=== PATIENT | female | born 1960 | race Caucasian/White ===

== ENCOUNTER → 2016-07-13 | Outpatient (CLI) | payer OTHER ==
[~2016-07-13] MED LIST: ACHD5005 PO; ALBU8.5H4 IH; AZIT-21 PO; BENZ200C25 PO; CIPR500T4 PO; CIPR500T78 PO; CYCL10TA9 PO; DOXY100C2 PO; INSU100V13 SQ; INSU100V5 SQ; METF-380 PO; NAPR-243 PO; OMEP20TA2 PO; PRD20T PO; PRM1O30 PR
--- NOTE | 2016-07-13 18:18 | Diagnostic Imaging Report ---
INDICATION: Bloating. 1 mCi of tech-99m sulfur colloid was tagged with eggs and orally ingested. FINDINGS: Immediate images show good uptake in the stomach. Serial images show linear fit T-1/2 to be 105 minutes. There is 50% raw emptying at 57 minutes. 80% raw emptying at 123 minutes and 96% raw isotope emptying at 180 minutes. IMPRESSION: Mild delayed gastric emptying as described. Dictated by: Dictated on workstation # [id number]
== END ==
LOC: CARD 08:36
PROVIDERS: ATTEND Family Medicine
DX: R14.0 Abdominal distension (gaseous) (principal)
CPT/HCPCS: 78264

== ENCOUNTER → 2016-09-26 | Outpatient (CLI) | payer OTHER ==
--- NOTE | 2016-09-27 06:49 | ECHOCARDIOGRAPHY REPORT ---
DATE OF SERVICE: 09/26/2016 A 2-D ECHO REPORT REFERRING PHYSICIAN: Dr. Chau. MEASUREMENT: LVID and diastolic 3.8, IVS thickness 1.1, LVPW thickness 1.0, left atrial diameter 3.2. Ejection fraction 50%. FINDINGS: 1. Technical quality is good. 2. The left ventricle is normal in size with normal contractility, systolic function appeared to be normal, estimated ejection fraction 50%. 3. The left atrium is normal in size. No clot or thrombus was seen within the left atrium. 4. The right atrium and right ventricle are normal in size. No clot or thrombus was seen within the right side. 5. Mitral valve is normal in morphology with mild mitral regurgitation noted by color Doppler flow. No mitral valve prolapse. No mitral valve stenosis. 6. Aortic valve is trileaflet with normal opening and closing pattern. No significant aortic stenosis or regurgitation was seen. 7. Tricuspid valve is normal in morphology with mild tricuspid regurgitation noted by color Doppler flow. Doppler across the tricuspid valve estimated pulmonary artery pressure of 9+ right atrial pressure. 8. Pulmonic valve is functioning normally. 9. No pericardial effusion. CONCLUSION: 1. Normal left ventricular size and systolic function, estimated ejection fraction 50%. 2. Mild mitral and tricuspid regurgitation. 3. Estimated pulmonary artery pressure of 15 mmHg. Job ID: [id number] DocumentID: [id number] Dictated Date: 09/26/2016 15:47:51 Golf Course Mechanic Date: 09/27/2016 06:24:37 Dictated By: ARIANA JIMENEZ MD
== END ==
LOC: CARD 10:05
PROVIDERS: ATTEND Internal Medicine Cardiovascular Disease
DX: R07.89 Other chest pain (principal)
CPT/HCPCS: 93306

== ENCOUNTER → 2016-10-01 | Outpatient (CLI) | payer OTHER ==
[~2016-10-01] MED LIST changes: +CATHETER FLUSH 10 ML SYR IV PRN; +REGADENOSON 0.4 MG/5 ML SYR (LEXISCAN) IV ONE
[2016-10-01 09:35] VITALS: BP 135/64
--- NOTE | 2016-10-02 07:42 | STRESS TEST ---
DATE OF SERVICE: 10/01/2016 LEXISCAN MYOVIEW STRESS TEST REPORT REFERRING PHYSICIAN: Dr. Cassandra Chau INDICATION: Coronary artery disease, chest pain. Baseline heart rate is 59. Baseline blood pressure 135/64. Baseline EKG is sinus rhythm with no ischemic changes. SUMMARY: The patient was injected with 10.91 mCi of technetium-99 Myoview, and the resting images were obtained. Then, the patient received 0.4 mg of Lexiscan followed by 32.9 mCi of technetium 99 Myoview. Throughout the test, there were no EKG changes. The resting and stress images were reviewed and compared in the short axis, horizontal long axis and vertical long axis views. Review of the images showed no significant ischemia or infarction on SPECT images. SSS is 1, SDS 1, TID value 1.01. On the gated images, the left ventricle appeared to be normal size with normal contractility. Calculated ejection fraction 59%. CONCLUSION: 1. The patient tolerated Lexiscan well. 2. No ischemia or infarction on SPECT images. 3. Normal left ventricular size with normal contractility, calculated ejection fraction 59%. Job ID: [id number] DocumentID: [id number] Dictated Date: 10/01/2016 12:03:42 Sourcer Date: 10/02/2016 00:12:00 Dictated By: ARIANA JIMENEZ MD
== END ==
LOC: CARD 07:24
PROVIDERS: ATTEND Internal Medicine Cardiovascular Disease
DX: R07.89 Other chest pain (principal)
CPT/HCPCS: 78452; 93017

== ENCOUNTER → 2016-10-08 | Emergency (ER) | payer OTHER ==
[~2016-10-08] MED LIST changes: -CATHETER FLUSH 10 ML SYR IV PRN; -REGADENOSON 0.4 MG/5 ML SYR (LEXISCAN) IV ONE
== END | disposition left against medical advice (07) ==
LOC: EDUNIT# 13:00 → ER 13:02
DX: R00.0 Tachycardia, unspecified (principal); Z53.21 Procedure and treatment not carried out due to patient leaving prior to being seen by health care provider

== ENCOUNTER 2017-01-19 15:15 | Emergency (ER) | payer SELFPAY ==
[~2017-01-19] VITALS: Ht 162.6 cm; Wt 90.7 kg
--- OUTSIDE RECORDS SUMMARY | 2017-01-19 15:22 | XMS REPORT ---
Author Author TAWANA QUINTEN Organization [facility] Address [address] [place] [address] Care Team Providers Care Die Maker Electronic Name Role Phone RUBINA GILLIAMHANY Unavailable PROBLEMS Type Condition ICD9-CM Code CNO26-VW Code Onset Dates Condition Status SNOMED Code Problem Obstructive sleep apnea G47.33 Active 53364649 Problem Falls frequently R29.6 Active 150653371 Problem Right carpal tunnel syndrome G56.01 Active 53503434 Problem Tarsal tunnel syndrome of left side G57.52 Active 04681204 Problem Posterior subcapsular age-related cataract of both eyes H25.043 Active 8497917 Problem Type 1 diabetes mellitus with diabetic neuropathy E10.40 Active 324093571 Problem Other chronic pain G89.29 Active 16106106 Problem Gastroesophageal reflux disease with esophagitis K21.0 Active 120157724 Problem Obesity E66.9 Active 307088374 Problem Pain in left foot M79.672 Active 7618029 Problem Presbyopia OU H52.4 Active 52604296 Problem Delayed gastric emptying K30 Active 385386501 Problem Nuclear cataract of both eyes H25.13 Active 69588754 Problem Hypermetropia, bilateral H52.03 Active 04364934 Problem Shortness of breath R06.02 Active 156259642 Problem Lung nodule R91.1 Active 186223533 Problem Type 2 diabetes mellitus with diabetic polyneuropathy E11.42 Active 30769893 Problem Primary narcolepsy with cataplexy G47.411 Active 693757021 Problem Type 2 diabetes mellitus with hyperglycemia E11.65 Active 61784091 Problem Mixed hyperlipidemia E78.2 Active 980178919 ALLERGIES Unknown Allergies SOCIAL HISTORY No smoking Hx information available PLAN OF CARE VITAL SIGNS MEDICATIONS Medication Instructions Dosage Frequency Start Date End Date Duration Status Test strips as directed Apr, Active Pen [place] 32G X 4 MM as directed Dec, Active RESULTS No Results PROCEDURES No Known procedures IMMUNIZATIONS No Known Immunizations
[2017-01-19] MEDS ORDERED: INSU100I29 PO (16:26)
[2017-01-19] MEDS ORDERED: INSU100I14 SQ (16:26)
[2017-01-19] MEDS ORDERED: PRAV40TA2 PO (16:27)
[2017-01-19] MEDS ORDERED: GABA-488 PO (16:27)
--- NOTE | 2017-01-19 17:29 | ED Fall/Injury ---
General Chief Complaint: Hip/Pelvic Problems Stated Complaint: FALL, HIP PAIN Nursing Triage Note: PT REPORTS SHE SAT ON THE TOILET AT [employer] TODAY AND THE TOILET SEAT WAS BROKE AND SLIPPED OUT FROM UNDER HER, AND SHE FELL ON THE FLOOR. PT C/O RIGHT SIDED HIP, BUTTOCK, AND LOWER BACK PAIN. Source: patient Exam Limitations: no limitations History of Present Illness Time seen by provider: 17:29 Initial Comments 56-year-old female patient presents to the emergency department with complaints of slipping off of the toilet at [employer] onto the floor at 1130 this AM. Reports the seat was broken. Now complains of right hip pain, right buttock pain, low back pain, and right mid thigh pain. Denies hitting her head, loss of consciousness, confusion, bowel incontinence, or bladder incontinence. Patient is moving about the bed without difficulty. Location Injury Occurred: Social Rec[employer]iting Occurred: this morning (1100 this AM) Injuries/Pain Location: back, pelvis, lower extremity Context: other (slipped off of the toilet) Loss of Consciousness: no loss of consciousness Modifying Factors: Worse With Movement Allergies and Home Medications Allergies Coded Allergies: Penicillins (Verified Allergy, Severe, SWELLING IN THROAT, 05/10/13) Home Medications Albuterol Sulfate 8.5 Gm Hfa.aer.ad, 8.5 GM IH Q4H PRN for AIR HUNGER, (Reported ) Cyclobenzaprine HCl 10 Mg Tablet, 10 MG PO Q8H PRN for SPASMS, #10 Ref 0 Prescribed by: LINDSAY CEJA on 01/19/171900 Gabapentin 300 Mg Capsule, 600 MG PO TID, (Reported) Insulin Aspart 300 Units/3 Ml Solution, 25 UNITS SQ TIDWM, (Reported) Insulin Detemir 100 Unit/1 Ml Insuln.pen, 45 UNITS PO BID, (Reported) Pravastatin Sodium 40 Mg Tablet, 40 MG PO HS, (Reported) Constitutional: No dizziness, No weakness Eyes: No Symptoms Reported Ears, Nose, Mouth, Throat: no symptoms reported Respiratory: No cough, No short of breath Cardiovascular: No chest pain, No syncope Gastrointestinal: no symptoms reported Genitourinary: no symptoms reported Musculoskeletal: see HPI, back pain, joint pain, No joint swelling, No neck pain Skin: No change in color, No lumps Psychiatric/Neurological: Denies Headache, Denies Numbness, Denies Paresthesia , Pre-Existing Deficit (h/o neuropathy), Denies Seizure, Denies Tingling, Denies Weakness All Other Systems Reviewed Negative Unless Noted: Yes (Negative excepted noted.) Past Ctmoqhb-Snyglb-Rgwyua Hx Patient Social History Alcohol Use: Denies Use Recreational Drug Use: No Smoking Status: Never a Smoker 2nd Hand Smoke Exposure: Yes Recent Foreign Travel: No Contact w/Someone Who Travel: No Recent Infectious Disease Expo: No Recent Hopitalizations: No Immunizations Up To Date Tetanus Booster (TDap): Unknown PED Vaccines UTD: No Date of Pneumonia Vaccine: Apr 13, 2013 Date of Influenza Vaccine: Apr 13, 2013 Seasonal Allergies Seasonal Allergies: No Surgeries History of Surgeries: Yes Surgeries: Hysterectomy Respiratory History of Respiratory Disorde: Yes Respiratory Disorders: Asthma, Sleep Apnea Currently Using CPAP: Yes Cardiovascular History of Cardiac Disorders: Yes Cardiac Disorders: High Cholesterol Neurological History of Neurological Disord: Yes Neurological Disorders: Headaches /Migraines, Neuropathy Reproductive System : No Hx Reproductive Disorders: No 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 Genitourinary History of Genitourinary Disor: Yes (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) Genitourinary Disorders: Renal Failure Gastrointestinal History of Gastrointestinal Di: Yes Gastrointestinal Disorders: Gastroesophageal Reflux Musculoskeletal History of Musculoskeletal Dis: Yes Musculoskeletal Disorders: Arthritis Endocrine History of Endocrine Disorders: Yes Endocrine Disorders: Diabetes, Insulin dep Are Your Blood Sugars Over 250: Yes HEENT History of HEENT Disorders: No Loss of Vision: Denies Hearing Impairment: Denies Cancer History of Cancer: No Psychosocial History of Psychiatric Problem: Yes (NARCOLEPSY) Integumentary History of Skin or Integumenta: No Blood Transfusions History of Blood Disorders: No Adverse Reaction to a Blood Tr: No Reviewed Nursing Assessment Reviewed/Agree w Nursing PMH: Yes Family Medical History Significant Family History: Heart Disease, Seizures Family Medial History: Alcoholism 03 FATHER, Onset:Unknown 09 SISTER, Onset:Unknown Bone cancer 09 BROTHER Cancer 09 BROTHER, Onset:30's - 40 Cardiovascular disease 03 FATHER 03 MOTHER Chest pain 03 FATHER, Onset:60 years & older 03 MOTHER, Onset:60 years & older Diabetes mellitus 09 SISTER Family history: Cardiovascular disease 03 FATHER, Onset:Unknown 03 MOTHER, Onset:Unknown 09 BROTHER, Onset:Unknown Family history: Diabetes mellitus 03 FATHER 03 MOTHER, Onset:Unknown 09 BROTHER, Onset:Unknown Heart disease 03 MOTHER, Onset:Unknown 09 BROTHER, Onset:Unknown Seizure disorder 09 BROTHER, Onset:Unknown 09 SISTER, Onset:Unknown Stroke 09 SISTER No Family History of: Abdominal aortic aneurysm [place]'s disease Aphasia Cancer of colon Cataract Congenital heart disease Congestive heart failure Cystic fibrosis Dementia Family history: Allergy Family history: Alzheimer's disease Family history: Arthritis Family history: Asthma Family history: Breast disease Family history: Coronary thrombosis Family history: Gastrointestinal disease Family history: Glaucoma Family history: Hypertension Family history: Osteoporosis Family history: Thyroid disorder Headache Hearing loss Hereditary disease History of - anemia History of - disorder History of - respiratory disease History of drug abuse Human immunodeficiency virus (HIV) seropositivity Hypercholesterolemia Infertile Kidney disease Malignant neoplasm of lung Myocardial infarction Parkinson's disease Prostate cancer Psychotic disorder Tuberculosis Visual impairment Physical Exam Vital Signs Vital Sign - Last 12Hours 01/19/17 16:09 Temp 97.7 Pulse 69 Resp 18 B/P (MAP) 144/61 O2 Delivery Room Air Capillary Refill : Less Than 3 Seconds General Appearance: WD/WN, no apparent distress, other (patient is moving about the bed without difficulty. Rolls from side to side with ease and without grimacing.) HEENT: PERRL/EOMI, pharynx normal, other (normocephalic, atraumatic.) Neck: non-tender, full range of motion, supple, normal inspection Cardiovascular: normal peripheral pulses, regular rate, rhythm, no edema, no murmur Respiratory: lungs clear, normal breath sounds, no respiratory distress, no accessory muscle use Peripheral Pulses: 2+ Dorsalis Pedis (R), 2+ Left Dors-Pedis (L), 2+ Radial Pulses (R), 2+ Radial Pulses (L) Gastrointestinal: non tender, soft, No distended Back: normal inspection, No decreased range of motion, vertebral tenderness ( mild lumbar tenderness.), No other (no evidence of step-off, deformity, or ecchymosis.) Extremities: normal range of motion, normal inspection, no pedal edema, no calf tenderness, normal capillary refill, pelvis stable, other (rt anterior/ lateral/posterior hip TTP without deformity, swelling, or ecchymosis.) Neurologic/Psychiatric: no motor/sensory deficits, alert, normal mood/affect, oriented x 3 Skin: normal color, warm/dry, No ecchymosis (no evidence of trauma.) [place] Coma Score Best Eye Response: (4) Open Spontaneously Best Verbal Response: (5) Oriented Best Motor Response: (6) Obeys Commands [place] Total: 15 Progress/Results/Core Measures Results/Orders My Orders Orders - LINDSAY CEJA Ct Lumbar Spine Wo (01/19/17 17:37) Femur, Right, 2 Views (01/19/17 17:37) Pelvis (01/19/17 17:37) Hydrocodone/Apap 10/325 Tablet (Lortab 1 (01/19/17 18:06) Vital Signs/I&O Vital Sign - Last 12Hours 01/19/17 16:09 Temp 97.7 Pulse 69 Resp 18 B/P (MAP) 144/61 O2 Delivery Room Air Blood Pressure Mean: 88 Diagnostic Imaging Diagonstic Imaging: CT Plain Films/CT/US/NM/MRI: other (lumbar spine) Comments FINDINGS: Alignment of the lumbar column is normal. There is no subluxation or fracture. Vertebral body heights are normal. There is minimal to mild degenerative disc disease and facet joint arthropathy. There is a broad-based circumferential disc bulge at the L3-L4 level. Consider MRI on nonemergent basis for further evaluation if symptoms continue. IMPRESSION: 1. No traumatic malalignment or fracture. 2. Degenerative changes throughout disc spaces and facet joints. 3. Likely chronic L3-L4 circumferential disc bulge. This may be further evaluated with MRI if needed. Dictated by: Dictated on workstation # [id number] Reviewed: Reviewed by Me (radiology report reviewed by me) Diagonstic Imaging: Xray Plain Films/CT/US/NM/MRI: pelvis Comments FINDINGS: No fracture or dislocation. Articular surfaces are normal. There is no osseous lesion. IMPRESSION: No fracture or dislocation. Dictated by: Dictated on workstation # [id number] Reviewed: Reviewed by Me (radiology report reviewed by me) Diagonstic Imaging: Xray Plain Films/CT/US/NM/MRI: femur Comments FINDINGS: 4 views of the right femur demonstrate no fracture or dislocation. Articular surfaces are age-appropriate. There is no osseous lesion. IMPRESSION: Negative right femur. Dictated by: Dictated on workstation # [id number] Reviewed: Reviewed by Me (radiology report reviewed by me) Departure Impression Impression: Primary Impression: Contusion of hip and thigh Qualified Codes: S70.01XA - Contusion of right hip, initial encounter; S70.11XA - Contusion of right thigh, initial encounter Additional Impression: Lumbar spine strain Qualified Codes: S39.012A - Strain of muscle, fascia and tendon of lower back , initial encounter Disposition: 01 HOME, SELF-CARE Condition: Improved Departure-Patient Inst. Decision time for Depature: 18:57 Referrals: QUINTEN GILLIAM MD (PCP/Family) Primary Care Physician Patient Instructions: Contusion (DC), Lumbar Muscle Strain (DC) Add. Discharge Instructions: All discharge instructions reviewed with patient and/or family. Voiced understanding. Medications as instructed. Tylenol extra strength over-the- counter as directed for pain. Ibuprofen 800 mg by mouth every 8 hours as needed for pain. Ice pack for 20 minute intervals as needed for pain for 2-3 days, then heating pad or pack as needed. No heavy lifting for 2-3 days, then increase activity slowly as tolerated. Follow-up with your family practitioner if no improvement in symptoms in 7-10 days. Return to the emergency department for worsened pain, numbness, weakness, bowel incontinence, bladder incontinence , or any other concerns. Scripts Cyclobenzaprine HCl (Cyclobenzaprine HCl) 10 Mg Tablet 10 MG PO Q8H Y for SPASMS, #10 TAB 0 Refills Prov: LINDSAY CEJA 01/19/17 LINDSAY CEJA Jan 19, 2017 17:29
[2017-01-19] MEDS ORDERED: HYDROcodone/APAP 10 MG/325 MG (LORTAB) TAB PO STA (18:06)
--- NOTE | 2017-01-19 18:18 | Diagnostic Imaging Report ---
PROCEDURE: CT lumbar spine without contrast. TECHNIQUE: Multiple contiguous axial images were obtained through the lumbar spine without the use of intravenous contrast. Sagittal and coronal reformations were then performed. INDICATION: Fall, back pain. COMPARISON: None. FINDINGS: Alignment of the lumbar column is normal. There is no subluxation or fracture. Vertebral body heights are normal. There is minimal to mild degenerative disc disease and facet joint arthropathy. There is a broad-based circumferential disc bulge at the L3-L4 level. Consider MRI on nonemergent basis for further evaluation if symptoms continue. IMPRESSION: 1. No traumatic malalignment or fracture. 2. Degenerative changes throughout disc spaces and facet joints. 3. Likely chronic L3-L4 circumferential disc bulge. This may be further evaluated with MRI if needed. Dictated by: Dictated on workstation # [id number]
--- NOTE | 2017-01-19 18:37 | Diagnostic Imaging Report ---
INDICATION: Fall, right leg pain. COMPARISON: None. FINDINGS: 4 views of the right femur demonstrate no fracture or dislocation. Articular surfaces are age-appropriate. There is no osseous lesion. IMPRESSION: Negative right femur. Dictated by: Dictated on workstation # [id number]
--- NOTE | 2017-01-19 18:41 | Diagnostic Imaging Report ---
INDICATION: Fall, pelvic pain. COMPARISON: None. EXAMINATION: Single view of the the pelvis was obtained. FINDINGS: No fracture or dislocation. Articular surfaces are normal. There is no osseous lesion. IMPRESSION: No fracture or dislocation. Dictated by: Dictated on workstation # [id number]
[2017-01-19] MEDS ORDERED: CYCL10TA9 PO (19:01)
[2017-01-19 19:05] VITALS: BP 148/72
== END 2017-01-19 19:05 | disposition home or self-care (01) ==
LOC: EDUNIT# 15:15 → ER 15:18
DX: S39.012A Strain of muscle, fascia and tendon of lower back, initial encounter (principal); S70.01XA Contusion of right hip, initial encounter; E11.40 Type 2 diabetes mellitus with diabetic neuropathy, unspecified; K21.9 Gastro-esophageal reflux disease without esophagitis; G43.909 Migraine, unspecified, not intractable, without status migrainosus; E78.00 Pure hypercholesterolemia, unspecified; J45.909 Unspecified asthma, uncomplicated; G47.30 Sleep apnea, unspecified; Z80.8 Family history of malignant neoplasm of other organs or systems; Z90.710 Acquired absence of both cervix and uterus; Z79.4 Long term (current) use of insulin; W18.11XA Fall from or off toilet without subsequent striking against object, initial encounter; Y92.511 Restaurant or cafe as the place of occurrence of the external cause
CPT/HCPCS: 72131; 72170; 73552; 99283

== ENCOUNTER → 2017-07-23 | Outpatient (CLI) | payer MEDICAID ==
[~2017-07-23] MED LIST changes: +FAMO20TA5 PO; +GABA-488 PO; +INSU100I14 SQ; +INSU100I29 PO; +PRAV40TA2 PO; +RT-ALBUINH IH; +SUCR1TAB36 PO
== END ==
LOC: PREOP 05:42
PROVIDERS: ATTEND Surgery
DX: Z01.818 Encounter for other preprocedural examination (principal); Z12.11 Encounter for screening for malignant neoplasm of colon

== ENCOUNTER 2017-08-28 08:28 | Outpatient (RCR) | payer MEDICAID | END 2017-11-26 | disposition home or self-care (01) | LOC: CARD 08:28 | PROVIDERS: ATTEND Family Medicine | DX: R00.2 Palpitations (principal) | CPT/HCPCS: 93225; 93226 ==

== ENCOUNTER 2017-12-01 18:59 | Emergency (ER) | payer MEDICAID ==
[~2017-12-01] VITALS: Ht 162.6 cm; Wt 88.5 kg
--- OUTSIDE RECORDS SUMMARY | 2017-12-01 19:06 | XMS REPORT ---
Author Author TAWANA QUINTEN [facility] Address [address] [place] [address] Care Team Providers Care Print Manager Name Role Phone TAWANA QUINTEN Unavailable PROBLEMS Type Condition ICD9-CM Code HVN35-JU Code Onset Dates Condition Status SNOMED Code Problem Right carpal tunnel syndrome G56.01 Active 23996299 Problem Gastroesophageal reflux disease with esophagitis K21.0 Active 835719573 Problem Falls frequently R29.6 Active 228332297 Problem Porokeratosis Q82.8 Active 652275543 Problem Posterior subcapsular age-related cataract of both eyes H25.043 Active 6328450 Problem Non-alcoholic fatty liver disease K76.0 Active 333649319 Problem Delayed gastric emptying K30 Active 120165188 Problem Pain in left foot M79.672 Active 9905533 Problem Other chronic pain G89.29 Active 91502832 Problem Tarsal tunnel syndrome of left side G57.52 Active 92403387 Problem Obesity E66.9 Active 165006370 Problem Hypermetropia, bilateral H52.03 Active 23369423 Problem Type 2 diabetes mellitus with hyperglycemia E11.65 Active 32593715 Problem Nuclear cataract of both eyes H25.13 Active 04764739 Problem Presbyopia OU H52.4 Active 65064524 Problem Obstructive sleep apnea G47.33 Active 32113421 Problem Shortness of breath R06.02 Active 837028466 Problem Type 2 diabetes mellitus with diabetic polyneuropathy E11.42 Active 27859071 Problem Lung nodule R91.1 Active 175979451 Problem Mixed hyperlipidemia E78.2 Active 122070715 Problem Primary narcolepsy with cataplexy G47.411 Active 665601111 ALLERGIES No Information ENCOUNTERS Encounter Location Date Diagnosis [facility] [address] [facility] [id number] [address] Nov, [facility] [id number] [place] [address] 15922- 3690 September, [facility] [id number] [place] [address] 69569- 0021 September, [facility] [id number] [place] [address] 49709- 3080 September, Type 2 diabetes mellitus with hyperglycemia E11.65 [facility] [address] 59640- 5038 September, Type 2 diabetes mellitus with hyperglycemia E11.65 [facility] [id number] [place] [address] 63911- 5775 September, Porokeratosis Q82.8 and Type 2 diabetes mellitus with diabetic polyneuropathy E11.42 [facility] [id number] [place] [address] 69705 -8567 Aug, Seasonal allergic rhinitis, unspecified trigger J30.2 [place] [address] 23800- 4887 Aug, [facility] [id number] [place] [address] 77957- 7083 Aug, [facility] [id number] [place] [address] [id number] Aug, Dental examination V72.2 and Dental examination Z01.20 [place] [id number] [place] [address] 24859- 7632 Aug, Dental examination Z01.20 and Dental caries K02.9 [facility] [id number] [place] [address] 88500- 9432 Aug, Obstructive sleep apnea G47.33 ; Obesity E66.9 ; Type 2 diabetes mellitus with hyperglycemia E11.65 ; Palpitations R00.2 and Corns and callosities L84 [facility] [id number] [place] [address] 45470- 2696 Jul, [facility] [address] 72040- 3363 Jul, [place] [id number] [place] [address] 76560- 9045 Jun, Type 2 diabetes mellitus with hyperglycemia E11.65 ; Colon cancer screening Z12.11 ; Mixed hyperlipidemia E78.2 ; Non-alcoholic fatty liver disease K76.0 ; Gastroesophageal reflux disease with esophagitis K21.0 and Pain of upper abdomen R10.10 [place] [id number] [place] [address] 38665- 1612 09 Jun, 2017 Falls frequently R29.6 [facility] [id number] [place] [address] 23215 -4249 May, Infection of nose J34.89 [place] [id number] [place] [address] 74771- 2137 May, Bilateral low back pain without sciatica M54.5 [place] [id number] [place] [address] 29110- 1258 May, Type 2 diabetes mellitus with diabetic polyneuropathy E11.42 ; Obstructive sleep apnea G47.33 and Type 2 diabetes mellitus with hyperglycemia E11.65 [place] [id number] [place] [address] 06058- 0023 Apr, Bilateral low back pain without sciatica M54.5 [place] [id number] [place] [address] 71204- 7872 Apr, Mixed hyperlipidemia E78.2 and Type 2 diabetes mellitus with hyperglycemia E11.65 [place] [id number] [place] [address] 55611- 6424 Apr, Type 2 diabetes mellitus with diabetic polyneuropathy E11.42 [place] [id number] [place] [address] 39683- 6918 Apr, [place] [id number] [place] [address] 92737- 3164 Apr, Skin lesion of left arm L98.9 and Skin lesion of left leg L98.9 [facility] [id number] [place] [address] 66864- 7612 Mar, Bilateral low back pain without sciatica M54.5 [facility] [id number] [place] [address] 72626- 6155 Mar, Plantar fasciitis of left foot M72.2 ; Bursitis of left foot M71.572 and Type 2 diabetes mellitus with diabetic polyneuropathy E11.42 [place] [address] 81355- 9332 Feb, Non-alcoholic fatty liver disease K76.0 ; Keratoacanthoma L85.8 ; Seborrheic keratosis L82.1 ; Type 2 diabetes mellitus with hyperglycemia E11.65 and Nuclear cataract of both eyes H25.13 [facility] [address] [id number] Feb, [place] [address] 75777- 7138 Feb, [facility] [address] 01591- 7302 Feb, [place] [address] 85079- 3395 Feb, Type 2 diabetes mellitus with hyperglycemia E11.65 ; Back muscle spasm M62.830 and Encounter for immunization Z23 [facility] [address] 67078- 1015 Jan, Plantar fasciitis of left foot M72.2 [facility] [id number] [place] [address] 09280- 1263 Dec, [facility] [address] 85607- 0265 Dec, Plantar fasciitis of left foot M72.2 and Tarsal tunnel syndrome of left side G57.52 [facility] [address] 32689- 4722 Dec, [facility] [id number] [place] [address] 40175 -2153 Nov, Mary Jane rash of groin B37.89 and Rash and nonspecific skin eruption R21 [facility] [id number] [place] [address] 71052- 4853 Nov, [facility] [id number] [place] [address] 19609- 4442 Oct, Type 2 diabetes mellitus with hyperglycemia E11.65 and Mixed hyperlipidemia E78.2 [place] [id number] [place] [address] 33152- 9907 Oct, [facility] [address] 12477- 6181 Oct, Chest pain, unspecified R07.9 ; Palpitations R00.2 ; Syncope R55 and Mixed hyperlipidemia E78.2 [place] [id number] [place] [address] 56708- 6310 Oct, Plantar fasciitis, bilateral M72.2 and Type 1 diabetes mellitus with diabetic neuropathy E10.40 [place] [address] 05587- 5281 Oct, [place] [id number] [place] [address] 33509- 8656 September, Type 2 diabetes mellitus with hyperglycemia E11.65 [place] [id number] [place] [address] 15217- 3205 September, Type 2 diabetes mellitus with hyperglycemia E11.65 ; Type 2 diabetes mellitus with diabetic polyneuropathy E11.42 ; Gastroesophageal reflux disease with esophagitis K21.0 and Headache, unspecified headache type R51 [facility] [id number] [place] [address] 33526- 9435 September, [facility] [id number] [place] [address] 30564- 1117 September, [facility] [address] [place] [address]- 9336 September, [facility] [id number] [place] [address] 84744- 9454 September, Other chest pain R07.89 ; Heart palpitations R00.2 ; Mixed hyperlipidemia E78.2 and Obesity E66.9 [facility] [id number] [place] [address] 63480- 3995 Aug, [facility] [id number] [place] [address] 80376- 6154 Aug, Type 2 diabetes mellitus with diabetic polyneuropathy E11.42 and Type 2 diabetes mellitus with hyperglycemia E11.65 [facility] [id number] [place] [address] 48992- 7562 Aug, [facility] [id number] [place] [address] 45485- 2148 Aug, [facility] [id number] [place] [address] 21895- 1559 Aug, [facility] [id number] [place] [address] 57577- 5915 Aug, Type 2 diabetes mellitus with hyperglycemia E11.65 [facility] [id number] [place] [address] 85837- 5592 Aug, [facility] [id number] [place] [address] 22961- 0253 Jul, Type 2 diabetes mellitus with diabetic polyneuropathy E11.42 [facility] [address] [place] [address] 79105- 8223 Jul, Type 2 diabetes mellitus with hyperglycemia E11.65 [facility] [id number] [place] [address] 78672- 2148 Jul, [facility] [id number] [place] [address] 79681- 3913 Jul, [facility] [id number] [place] [address] 73705- 8432 Jul, [place] [id number] [place] [address] 70168- 2673 Jul, Type 2 diabetes mellitus with diabetic polyneuropathy E11.42 and Type 2 diabetes mellitus with hyperglycemia E11.65 [place] [id number] [place] [address] 38368- 7054 Jun, Obstructive sleep apnea G47.33 [place] [address] 85827- 8617 Jun, Type 2 diabetes mellitus with diabetic polyneuropathy E11.42 ; Primary narcolepsy with cataplexy G47.411 ; Abdominal bloating R14.0 ; Other chest pain R07.89 and Vision problems H54.7 [place] [id number] [place] [address] 06555- 2802 Jun, [place] [address] 65958- 3413 May, [place] [id number] [place] [address] 32236- 1190 Apr, [place] [address] 99598- 6298 Apr, Plantar fasciitis of left foot M72.2 [place] [id number] [place] [address] 34995- 0678 Mar, [place] [address] 40070- 2788 Mar, Plantar fasciitis of left foot M72.2 and Type 2 diabetes mellitus with diabetic polyneuropathy E11.42 [place] [address] 91670- 2589 14 Feb, 2016 Type 2 diabetes mellitus with hyperglycemia E11.65 ; Mixed hyperlipidemia E78.2 and Encounter for immunization Z23 [place] [address] 73986- 3275 Feb, [facility] [address] [address]- 1615 Feb, [facility] [id number] [place] [address] 58444- 2072 Feb, Type 2 diabetes mellitus with hyperglycemia E11.65 [facility] [id number] [place] [address] 03271- 4618 Feb, Type 2 diabetes mellitus with hyperglycemia E11.65 [facility] [id number] [place] [address] 06222- 6346 Jan, [facility] [id number] [place] [address] 61833- 6267 Dec, Pain in left foot M79.672 ; Other chronic pain G89.29 ; Type 2 diabetes mellitus with hyperglycemia E11.65 ; Obstructive sleep apnea G47.33 ; Falls frequently R29.6 ; Mixed hyperlipidemia E78.2 and Gastroesophageal reflux disease with esophagitis K21.0 [facility] [id number] [place] [address] 86346- 6638 Nov, [facility] [id number] [place] [address] 67104- 9828 Oct, Type 2 diabetes mellitus with diabetic polyneuropathy E11.42 [facility] [address] [place] [address] 61085- 2869 Oct, [facility] [id number] [place] [address] 01039- 2591 Oct, [facility] [address] [address]- 3603 September, [facility] [id number] [place] [address] 69707- 5429 September, [facility] [id number] [place] [address] 67621- 7653 September, [facility] [id number] [place] [address] 30801- 7291 September, [facility] [address] [address]- 6803 September, [facility] [id number] [place] [address] 83140- 9714 Aug, Type 2 diabetes mellitus with hyperglycemia E11.65 ; Mixed hyperlipidemia E78.2 and Right carpal tunnel syndrome G56.01 [facility] [id number] [place] [address] 17204- 2850 Aug, [facility] [address] [address]- 5631 Jul, [facility] [id number] [place] [address] 54901- 5428 Jun, [facility] [id number] [place] [address] 20819- 7010 Jun, [facility] [id number] [place] [address] 95166- 8570 May, [facility] [address] [address]- 0949 May, [facility] [id number] [place] [address] 79850- 4594 May, Type 2 diabetes mellitus with hyperglycemia E11.65 and Falls E888.9 [facility] [address] [address]- 2495 Apr, Type 2 diabetes mellitus with hyperglycemia E11.65 [facility] [address] [address]- 9505 Apr, [facility] [address] [address]- 2376 Apr, Type 2 diabetes mellitus with hyperglycemia E11.65 [facility] [address] [address]- 9130 Apr, [facility] [id number] [place] [address] 68912- 1317 Mar, Type 2 diabetes mellitus with diabetic polyneuropathy E11.42 ; Bilateral low back pain without sciatica M54.5 and Dry nose J34.89 [facility] [id number] [place] [address] 92108- 8235 Mar, Palpitations R00.2 ; Syncope R55 ; DM (diabetes mellitus) E11.9 and Obesity E66.9 [facility] [address] 79342- 0406 Mar, [facility] [address] 02213- 1039 Mar, [facility] [address] 29900- 6663 Mar, [facility] [address] 13569- 2794 Feb, [facility] [address] 72799- 2587 Jan, [facility] [id number] [place] [address] 51810- 5347 Jan, [facility] [id number] [place] [address] 64485- 5530 Jan, Falls E888.9 and Sinusitis 473.9 [facility] [id number] [place] [address] 88022- 0243 Dec, [facility] [id number] [place] [address] 30045- 4252 Dec, [facility] [address] 43167- 1986 Dec, [facility] [id number] [place] [address] 94562- 6373 Dec, [facility] [address] 39386- 8276 Dec, Diabetes mellitus without mention of complication, type II or unspecified type, not stated as uncontrolled 250.00 and Shortness of breath 786.05 [facility] [id number] [place] [address] 00629- 8671 Dec, [facility] [id number] [place] [address] 20352- 6597 Nov, [facility] [id number] [place] [address] 34196- 9060 Nov, [facility] [id number] [place] [address] 04362- 3449 Oct, Restrictive lung disease 518.89 [place] [id number] [place] [address] 61475- 8288 Oct, [place] [id number] [place] [address] 05425- 4794 Oct, Shortness of breath 786.05 [facility] [id number] [place] [address] 37985- 4840 September, Other nonspecific abnormal finding of lung field 793.19 ; Diabetes mellitus without mention of complication, type II or unspecified type, not stated as uncontrolled 250.00 ; Hyperlipidemia LDL goal < 100 272.4 ; Narcolepsy, with cataplexy 347.01 ; Shortness of breath 786.05 and Chest pain 786.50 [place] [id number] [place] [address] 04615- 9211 Aug, [facility] [id number] [place] [address] 72485- 4780 Aug, [facility] [id number] [place] [address] 085273- 7949 Jun, [facility] [id number] [place] [address] 977617- 0884 Jun, [facility] [id number] [place] [address] 943538- 1450 Jun, [facility] [place] [facility] [address] [id number] [place] [address]- 7894 Jun, 2014 [facility] [place] [facility] [address] [id number] [place] [address]- 8277 Jun, 2014 [facility] [place] [facility] [address] [id number] [place] [address]- 3629 Jun, 2014 [facility] [place] [facility] [address] [id number] [place] [address]- 5201 Jun, 2014 [facility] [place] [facility] [address] [id number] [place] [address] Jun, [facility] [place] [facility] [address] [id number] [place] [address] May, [facility] [place] [facility] [address] [id number] [place] [address] May, [facility] [place] [facility] [address] [id number] [place] [address] Apr, [facility] [place] [facility] [address] [id number] [place] [address] Apr, [facility] [place] [facility] [address] [id number] [place] [address] Mar, [facility] [place] [facility] [address] [id number] [place] [address] Mar, [facility] [place] [facility] [address] [id number] [place] [address] Mar, [facility] [place] [facility] [address] [id number] [place] [address] Mar, [facility] [place] [facility] [address] [id number] [place] [address] Nov, [facility] [place] [facility] [address] [id number] [place] [address] Nov, [facility] [place] [facility] [address] [id number] [place] [address] Nov, [facility] [place] [facility] [address] [id number] [place] [address] Nov, [facility] [place] [facility] [address] [id number] [place] [address] Oct, [facility] [place] [facility] [address] [id number] [place] [address] Oct, [facility] [place] [facility] [address] [id number] [place] [address] Oct, [facility] [place] [facility] [address] [id number] [place] [address] Oct, [facility] [place] [facility] [address] [id number] [place] [address] Oct, [facility] [place] [facility] [address] [id number] [place] [address] Oct, [facility] [place] [facility] [address] [id number] [place] [address] Oct, [facility] [place] [facility] [address] [id number] [place] [address] Oct, [facility] [place] [facility] [address] [id number] [place] [address] Oct, [facility] [place] [facility] [address] [id number] [place] [address]- [address] Oct, [facility] [place] [facility] [address] [id number] [place] [address] September, [facility] [place] [facility] [address] [id number] [place] [address] September, [facility] [place] [facility] [address] [id number] [place] [address] Aug, [facility] [place] [facility] [address] [id number] [place] [address] Aug, [facility] [place] [facility] [address] [id number] [place] [address] Aug, [facility] [place] [facility] [address] [id number] [place] [address] Aug, [facility] [place] [facility] [address] [id number] [place] [address] Aug, [facility] [place] [facility] [address] [id number] [place] [address] Aug, [facility] [place] [facility] [address] [id number] [place] [address] Jul, [facility] [place] [facility] [address] [id number] [place] [address] Jul, [facility] [place] [facility] [address] [id number] [place] [address] Jul, [facility] [place] [facility] [address] [id number] [place] [address] Jul, [facility] [place] [facility] [address] [id number] [place] [address] Jul, [facility] [place] [facility] [address] [id number] [place] [address] Jul, [facility] [place] [facility] [address] [id number] [place] [address] Jul, [facility] [place] [facility] [address] [id number] [place] [address] Jul, [facility] [place] [facility] [address] [id number] [place] [address] Jul, [facility] [place] [facility] [address] [id number] [place] [address] Jul, [facility] [place] [facility] [address] [id number] [place] [address] Jul, [facility] [place] [facility] [address] [id number] [place] [address] 19 Jul, 2013 [facility] [place] [facility] [address] [id number] [place] [address] 19 Jul, 2013 [facility] [place] [facility] [address] [id number] [place] [address] Jul, [facility] [place] [facility] [address] [facility] [id number] [place] [address] Jul, [facility] [place] [facility] [address] [id number] [place] [address] Jul, [facility] [place] [facility] [address] [id number] [place] [address] Jun, [facility] [place] [facility] [address] [facility] [id number] [place] [address] Jun, [facility] [place] [facility] [address] [facility] [id number] [place] [address] Jun, [facility] [place] [facility] [address] [id number] [place] [address] Jun, [facility] [place] [facility] [address] [facility] [id number] [place] [address] Jun, [facility] [place] [facility] [address] [facility] [id number] [place] [address] Jun, [facility] [place] [facility] [address] [facility] [id number] [place] [address] 9066 Jun, [facility] [place] [facility] [address] [facility] [id number] [place] [address] Jun, [facility] [place] [facility] [address] [id number] [place] [address]87 Jun, [facility] [place] [facility] [address] [facility] [id number] [address] Jun, [facility] [place] [facility] [address] [facility] [id number][place] [address] 18 Jun, 2013 [facility] [place] [facility] [address] [id number] [place] [address] 18 Jun, 2013 [facility] [place] [facility] [address] [id number] [place] [address] 14 Jun, 2013 [facility] [place] [facility] [address] [id number] [place] [address] 13 Jun, 2013 [facility] [place] [facility] [address] [id number] [place] [address] Jun, [facility] [place] [facility] [address] [id number] [place] [address] 9138 Jun, [facility] [place] [facility] [address] [id number] [place] [address] Jun, [facility] [place] [facility] [address] [facility] [id number] [place] [address] 12 Jun, 2013 [facility] [place] [facility] [address] [id number] [place] [address] Jun, [facility] [place] [facility] [address] [facility] [id number] [place] [address] Jun, [facility] [place] [facility] [address] [facility] [id number] [place] [address]- 6907 Jun, [facility] [place] [facility] [address] [facility] [id number] [place] [address] 8707 10 Jun, 2013 [facility] [place] [facility] [address] [facility] [id number] [place] [address] 07 Jun, 2013 [facility] [place] [facility] [address] [facility] [id number] [place] [address] 07 Jun, 2013 [facility] [place] [facility] [address] [facility] [id number] [place] [address] 06 Jun, 2013 [facility] [place] [facility] [address] [facility] [id number] [place] [address] 06 Jun, 2013 [facility] [place] [facility] [address] [id number] [place] [address]498 Jun, [facility] [place] [facility] [address] [id number] [place] [address] 57[address] Jun, [facility] [place] [facility] [address] [id number] [place] [address] 3912 Jun, [facility] [place] [facility] [address] [id number] [place] [address] 9186 Jun, [facility] [place] [facility] [address] [id number] [place] [address] May, [facility] [place] [facility] [address] [id number] [place] [address]- [address]20 May, [facility] [place] [facility] [address] [id number] [place] [address]239 May, [facility] [place] [facility] [address] [id number] [place] [address]331 May, [facility] [place] [facility] [address] [id number] [place] [address]- 8584 May, [facility] [place] [facility] [address] [id number] [place] [address]- [address]955 May, [facility] [place] [facility] [address] [id number] [place] [address]- 66[address] May, [facility] [place] [facility] [address] [id number] [place] [address]- [address] May, [facility] [place] [facility] [address] [id number] [place] [address]- 6945 May, [facility] [place] [facility] [address] [id number] [place] [address]- 6487 May, [facility] [place] [facility] [address] [id number] [place] [address]- 6295 May, [facility] [place] [facility] [address] [id number][place] [address] May, [facility] [address] [facility] [id number][place] [address] May, [facility] [address] [facility] [id number], [place] [address] May, [facility] [address] [id number] [address] May, [facility] [address] [facility] [id number][place] [address] Apr, [facility] [address] [facility] [id number][place] [address] Apr, [facility] [address] [id number], [place] [address] Dec, [facility] [id number], [place] [address] Nov, [facility] [id number], [place] [address] May, [facility] [address] [id number] [address] [address] Apr, [facility] [id number] [address] Apr, [facility] [address] [id number] [address] [address] Apr, [facility] [address] [id number], [place] [address] Apr, IMMUNIZATIONS No Known Immunizations SOCIAL HISTORY Never Assessed REASON FOR VISIT Requests return call PLAN OF CARE VITAL SIGNS MEDICATIONS Unknown Medications RESULTS No Results PROCEDURES No Known procedures INSTRUCTIONS MEDICATIONS ADMINISTERED No Known Medications MEDICAL (GENERAL) HISTORY Type Description Date Medical History asthma Medical History type II diabetes Medical History sleep apnea Medical History narcolepsy Surgical History hysterectomy Hospitalization History Chest pain-[facility] 02/27/17
--- OUTSIDE RECORDS SUMMARY | 2017-12-01 19:07 | XMS REPORT ---
Author Author QUINTEN GILLIAM Organization [facility] Address [address] [place] [address] Care Team Providers Care Internet Sales Representative Name Role Phone QUINTEN GILLIAM Unavailable PROBLEMS Type Condition ICD9-CM Code [id number] Code Onset Dates Condition Status SNOMED Code Problem Primary narcolepsy with cataplexy G47.411 Active 967319188 Problem Falls frequently R29.6 Active 487167439 Problem Right carpal tunnel syndrome G56.01 Active 16058553 Problem Non-alcoholic fatty liver disease K76.0 Active 227708094 Problem Posterior subcapsular age-related cataract of both eyes H25.043 Active 7172512 Problem Tarsal tunnel syndrome of left side G57.52 Active 50077258 Problem Other chronic pain G89.29 Active 33851618 Problem Gastroesophageal reflux disease with esophagitis K21.0 Active 968388261 Problem Obesity E66.9 Active 888347684 Problem Pain in left foot M79.672 Active 4240040 Problem Delayed gastric emptying K30 Active 746174135 Problem Hypermetropia, bilateral H52.03 Active 22881831 Problem Nuclear cataract of both eyes H25.13 Active 57008024 Problem Presbyopia OU H52.4 Active 29655154 Problem Mixed hyperlipidemia E78.2 Active 237563388 Problem Obstructive sleep apnea G47.33 Active 63878257 Problem Type 2 diabetes mellitus with hyperglycemia E11.65 Active 87453929 Problem Shortness of breath R06.02 Active 463826473 Problem Type 2 diabetes mellitus with diabetic polyneuropathy E11.42 Active 39941154 Problem Lung nodule R91.1 Active 037524395 ALLERGIES No Information SOCIAL HISTORY Never Assessed PLAN OF CARE VITAL SIGNS MEDICATIONS Medication Instructions Dosage Frequency Start Date End Date Duration Status Levemir Flexpen 100 unit/mL (3 mL) subcutaneous 2 times a day 45 units 12h 24 Aug, 2013 Active RESULTS No Results PROCEDURES No Known procedures IMMUNIZATIONS No Known Immunizations MEDICAL (GENERAL) HISTORY Type Description Date Medical History asthma Medical History type II diabetes Surgical History hysterectomy Hospitalization History Chest pain-[facility] 02/27/17
--- OUTSIDE RECORDS SUMMARY | 2017-12-01 19:07 | XMS REPORT ---
Author Author RENAY HICKS [facility] Address [address] [place] [address] Care Team Providers Care [facility] Attendant Name Role Phone HICKSCYNTHIAAN Unavailable PROBLEMS Type Condition ICD9-CM Code [id number] Code Onset Dates Condition Status SNOMED Code Problem Right carpal tunnel syndrome G56.01 Active 28433233 Problem Gastroesophageal reflux disease with esophagitis K21.0 Active 615341365 Problem Falls frequently R29.6 Active 508889945 Problem Porokeratosis Q82.8 Active 177636042 Problem Posterior subcapsular age-related cataract of both eyes H25.043 Active 3979363 Problem Non-alcoholic fatty liver disease K76.0 Active 116553500 Problem Delayed gastric emptying K30 Active 926546946 Problem Pain in left foot M79.672 Active 5070986 Problem Other chronic pain G89.29 Active 08460131 Problem Tarsal tunnel syndrome of left side G57.52 Active 93342215 Problem Obesity E66.9 Active 676030316 Problem Hypermetropia, bilateral H52.03 Active 58415480 Problem Type 2 diabetes mellitus with hyperglycemia E11.65 Active 24803772 Problem Nuclear cataract of both eyes H25.13 Active 41560618 Problem Presbyopia OU H52.4 Active 55500320 Problem Obstructive sleep apnea G47.33 Active 17433705 Problem Shortness of breath R06.02 Active 937396644 Problem Type 2 diabetes mellitus with diabetic polyneuropathy E11.42 Active 90723183 Problem Lung nodule R91.1 Active 245959936 Problem Mixed hyperlipidemia E78.2 Active 641866611 Problem Primary narcolepsy with cataplexy G47.411 Active 689660939 ALLERGIES No Information ENCOUNTERS Encounter Location Date Diagnosis [facility] [address] [facility] [id number] [address] Nov, [facility] [id number] [place] [address] 41208- 8328 Nov, [facility] [address] [address] 1208 Nov, [facility] [address] [address] 4623 Oct, [facility] [id number] [place] [address] 25279- 4845 Oct, [facility] [id number] [place] [address] 78779- 7427 September, [facility] [id number] [place] [address] 21099- 5876 September, Type 2 diabetes mellitus with hyperglycemia E11.65 [facility] [id number] [place] [address] 17292- 7046 September, Type 2 diabetes mellitus with hyperglycemia E11.65 [facility] [id number] [place] [address] 59566- 5443 September, Porokeratosis Q82.8 and Type 2 diabetes mellitus with diabetic polyneuropathy E11.42 [facility] [id number] [place] [address] 56577 -7736 Aug, Seasonal allergic rhinitis, unspecified trigger J30.2 [facility] [address] [address] 6385 Aug, [facility] [id number] [place] [address] 18297- 4620 Aug, [facility] [address] [id number] Aug, Dental examination V72.2 and Dental examination Z01.20 [facility] [id number] [place] [address] 96141- 5542 Aug, Dental examination Z01.20 and Dental caries K02.9 [facility] [id number] [place] [address] 63505- 1486 Aug, Obstructive sleep apnea G47.33 ; Obesity E66.9 ; Type 2 diabetes mellitus with hyperglycemia E11.65 ; Palpitations R00.2 and Corns and callosities L84 [place] [address] 40342- 2199 Jul, [place] [address] 49175- 6317 Jul, [address] [address]23- 6917 Jun, Type 2 diabetes mellitus with hyperglycemia E11.65 ; Colon cancer screening Z12.11 ; Mixed hyperlipidemia E78.2 ; Non-alcoholic fatty liver disease K76.0 ; Gastroesophageal reflux disease with esophagitis K21.0 and Pain of upper abdomen R10.[address] 84451- 5009 Jun, Falls frequently R29.6 [facility] [address] [address] May, Infection of nose J34.[address] 24188- 8815 May, Bilateral low back pain without sciatica M54.[address] 18071- 8957 May, Type 2 diabetes mellitus with diabetic polyneuropathy E11.42 ; Obstructive sleep apnea G47.33 and Type 2 diabetes mellitus with hyperglycemia E11.[address] 62614- 9206 Apr, Bilateral low back pain without sciatica M54.[address] 21950- 2073 Apr, Mixed hyperlipidemia E78.2 and Type 2 diabetes mellitus with hyperglycemia E11.[address] 94128- 4115 Apr, Type 2 diabetes mellitus with diabetic polyneuropathy E11.42 [facility] [id number] [place] [address] 63021- 8553 Apr, [facility] [id number] [place] [address] 66472- 7139 Apr, Skin lesion of left arm L98.9 and Skin lesion of left leg L98.9 [facility] [address] 27755- 2417 Mar, Bilateral low back pain without sciatica M54.5 [place] [id number] [place] [address] 69580- 2895 Mar, Plantar fasciitis of left foot M72.2 ; Bursitis of left foot M71.572 and Type 2 diabetes mellitus with diabetic polyneuropathy E11.42 [place] [id number] [place] [address] 39868- 5366 Feb, Non-alcoholic fatty liver disease K76.0 ; Keratoacanthoma L85.8 ; Seborrheic keratosis L82.1 ; Type 2 diabetes mellitus with hyperglycemia E11.65 and Nuclear cataract of both eyes H25.13 [facility] [address] [id number] Feb, [facility] [id number] [place] [address] 27530- 9783 Feb, [facility] [id number] [place] [address] 06154- 2108 Feb, [facility] [id number] [place] [address] 58718- 0245 Feb, Type 2 diabetes mellitus with hyperglycemia E11.65 ; Back muscle spasm M62.830 and Encounter for immunization Z23 [facility] [id number] [place] [address] 05015- 2012 08 Jan, 2017 Plantar fasciitis of left foot M72.2 [facility] [address] 09776- 0002 Dec, [facility] [id number] [place] [address] 97845- 0431 Dec, Plantar fasciitis of left foot M72.2 and Tarsal tunnel syndrome of left side G57.52 [facility] [id number] [place] [address] 70605- 5531 Dec, [facility] [id number] [place] [address] 41626 -1271 Nov, Mary Jane rash of groin B37.89 and Rash and nonspecific skin eruption R21 [place] [address] [id number] [place] [address] 81544- 4893 Nov, [facility] [id number] [place] [address] 95195- 6999 Oct, Type 2 diabetes mellitus with hyperglycemia E11.65 and Mixed hyperlipidemia E78.2 [place] [address] [id number] [place] [address] 62121- 6266 Oct, [facility] [id number] [place] [address] 75660- 1119 Oct, Chest pain, unspecified R07.9 ; Palpitations R00.2 ; Syncope R55 and Mixed hyperlipidemia E78.2 [place] [id number] [place] [address] 93504- 2070 Oct, Plantar fasciitis, bilateral M72.2 and Type 1 diabetes mellitus with diabetic neuropathy E10.40 [place] [address] [id number] [place] [address] 81485- 2783 Oct, [place] [id number] [place] [address] 02952- 6809 September, Type 2 diabetes mellitus with hyperglycemia E11.65 [facility] [id number] [place] [address] 83211- 4604 September, Type 2 diabetes mellitus with hyperglycemia E11.65 ; Type 2 diabetes mellitus with diabetic polyneuropathy E11.42 ; Gastroesophageal reflux disease with esophagitis K21.0 and Headache, unspecified headache type R51 [facility] [id number] [place] [address] 44710- 9061 September, [facility] [address] 88446- 4435 September, [facility] [id number] [place] [address] 61127- 2291 September, [facility] [address] 07284- 9604 September, Other chest pain R07.89 ; Heart palpitations R00.2 ; Mixed hyperlipidemia E78.2 and Obesity E66.9 [facility] [id number] [place] [address] 30399- 6426 Aug, [facility] [id number] [place] [address] 39413- 2822 Aug, Type 2 diabetes mellitus with diabetic polyneuropathy E11.42 and Type 2 diabetes mellitus with hyperglycemia E11.65 [facility] [id number] [place] [address] 38778- 9786 Aug, [facility] [id number] [place] [address] 05309- 7061 Aug, [facility] [id number] [place] [address] 52702- 2125 Aug, [facility] [id number] [place] [address] 32002- 8828 Aug, Type 2 diabetes mellitus with hyperglycemia E11.65 [facility] [id number] [place] [address] 64966- 7315 Aug, [facility] [id number] [place] [address] 02426- 0770 Jul, Type 2 diabetes mellitus with diabetic polyneuropathy E11.42 [facility] [id number] [place] [address] 46281- 4952 Jul, Type 2 diabetes mellitus with hyperglycemia E11.65 [facility] [address] [address]- 5141 Jul, [facility] [id number] [place] [address] 67797- 1284 Jul, [facility] [id number] [place] [address] 02380- 7808 Jul, [facility] [id number] [place] [address] 03322- 2235 Jul, Type 2 diabetes mellitus with diabetic polyneuropathy E11.42 and Type 2 diabetes mellitus with hyperglycemia E11.65 [facility] [id number] [place] [address] 94068- 7035 Jun, Obstructive sleep apnea G47.33 [facility] [id number] [place] [address] 71376- 4584 Jun, Type 2 diabetes mellitus with diabetic polyneuropathy E11.42 ; Primary narcolepsy with cataplexy G47.411 ; Abdominal bloating R14.0 ; Other chest pain R07.89 and Vision problems H54.7 [facility] [id number] [place] [address] 34150- 8282 Jun, [facility] [id number] [place] [address] 17127- 0801 May, [facility] [id number] [place] [address] 19353- 8920 Apr, [facility] [id number] [place] [address] 15717- 7416 Apr, Plantar fasciitis of left foot M72.2 [facility] [id number] [place] [address] 32472- 0206 Mar, [facility] [id number] [place] [address] 56301- 8666 Mar, Plantar fasciitis of left foot M72.2 and Type 2 diabetes mellitus with diabetic polyneuropathy E11.42 [place] [address] [id number] [place] [address] 59472- 7193 Feb, Type 2 diabetes mellitus with hyperglycemia E11.65 ; Mixed hyperlipidemia E78.2 and Encounter for immunization Z23 [facility] [address] [id number] [place] [address] 48844- 3571 Feb, [place] [address] 07961- 9482 Feb, [place] [address] [id number] [place] [address] 83652- 5603 Feb, Type 2 diabetes mellitus with hyperglycemia E11.65 [place] [address] [id number] [place] [address] 58747- 8265 Feb, Type 2 diabetes mellitus with hyperglycemia E11.65 [place] [address] [id number] [place] [address] 33887- 0611 Jan, [place] [address] [id number] [place] [address] 98520- 0777 Dec, Pain in left foot M79.672 ; Other chronic pain G89.29 ; Type 2 diabetes mellitus with hyperglycemia E11.65 ; Obstructive sleep apnea G47.33 ; Falls frequently R29.6 ; Mixed hyperlipidemia E78.2 and Gastroesophageal reflux disease with esophagitis K21.0 [place] [id number] [place] [address] 46296- 5828 Nov, [place] [id number] [place] [address] 48247- 6007 Oct, Type 2 diabetes mellitus with diabetic polyneuropathy E11.42 [place] [address] [id number] [place] [address] 53925- 9331 Oct, [place] [address] [id number] [place] [address] 89169- 8970 Oct, [place] [address] [id number] [place] [address] 16185- 6888 September, [facility] [address]- 5839 September, [facility] [address] [address]- 9984 September, [facility] [address] 8216 September, [facility] [id number] [place] [address] 07794- 9484 September, [facility] [address] [address]- 6353 Aug, Type 2 diabetes mellitus with hyperglycemia E11.65 ; Mixed hyperlipidemia E78.2 and Right carpal tunnel syndrome G56.01 [facility] [address] [address]- 2415 Aug, [facility] [address] [place] [address] 57890- 6351 Jul, [facility] [address] [address]- 2848 Jun, [facility] [address] 2214 Jun, [facility] [address] [address]- 3116 May, [facility] [address] [address]- 6739 May, [facility] [id number] [address]- 3993 May, Type 2 diabetes mellitus with hyperglycemia E11.65 and Falls E888.9 [facility] [address] [address]- 0435 Apr, Type 2 diabetes mellitus with hyperglycemia E11.65 [facility] [address] [address]- 7954 Apr, [facility] [id number] [place] [address] 35547- 7007 Apr, Type 2 diabetes mellitus with hyperglycemia E11.65 [facility] [id number] [place] [address] 44864- 3105 Apr, [facility] [id number] [place] [address] 96090- 9420 Mar, Type 2 diabetes mellitus with diabetic polyneuropathy E11.42 ; Bilateral low back pain without sciatica M54.5 and Dry nose J34.89 [facility] [id number] [place] [address] 98133- 7822 Mar, Palpitations R00.2 ; Syncope R55 ; DM (diabetes mellitus) E11.9 and Obesity E66.9 [facility] [id number] [place] [address] 44247- 4766 Mar, [facility] [id number] [place] [address] 98620- 0937 Mar, [facility] [id number] [place] [address] 20005- 2154 Mar, [facility] [id number] [place] [address] 63678- 1011 Feb, [facility] [id number] [place] [address] 46712- 3131 Jan, [facility] [id number] [place] [address] 04277- 3979 Jan, [facility] [id number] [place] [address] 48817- 9594 Jan, Falls E888.9 and Sinusitis 473.9 [facility] [id number] [place] [address] 81500- 0879 Dec, [facility] [id number] [place] [address] 88469- 6599 Dec, [facility] [address] [address]- 0161 Dec, [facility] [id number] [place] [address] 19480- 2796 Dec, [facility] [id number] [place] [address] 25076- 6801 Dec, Diabetes mellitus without mention of complication, type II or unspecified type, not stated as uncontrolled 250.00 and Shortness of breath 786.05 [facility] [id number] [place] [address] 95464- 1928 Dec, [facility] [address] [id number] [place] [address] 07717- 6966 Nov, [facility] [address] [id number] [place] [address] 61732- 2658 Nov, [facility] [id number] [place] [address] 18566- 0317 Oct, Restrictive lung disease 518.89 [facility] [address] [place] [address] 34731- 5788 Oct, [facility] [address] [id number] [place] [address] 68852- 5959 Oct, Shortness of breath 786.05 [facility] [id number] [place] [address] 11834- 2125 September, Other nonspecific abnormal finding of lung field 793.19 ; Diabetes mellitus without mention of complication, type II or unspecified type, not stated as uncontrolled 250.00 ; Hyperlipidemia LDL goal < 100 272.4 ; Narcolepsy, with cataplexy 347.01 ; Shortness of breath 786.05 and Chest pain 786.50 [facility] [address] [place] [address] 20475- 8366 Aug, [facility] [id number] [place] [address] 34170- 4190 Aug, [facility] [place] [facility] [address] [id number] [place] [address]- 1910 Jun, 2014 [facility] [place] [facility] [address] [id number] [place] [address]- 7894 Jun, 2014 [facility] [place] [facility] [address] [id number] [place] [address]- 4122 Jun, 2014 [facility] [place] [facility] [address] [id number] [place] [address]- 8262 Jun, 2014 [facility] [place] [facility] [address] [id number] [place] [address]- 9593 Jun, 2014 [facility] [place] [facility] [address] [id number] [place] [address]- 8984 Jun, 2014 [facility] [place] [facility] [address] [facility] [id number] [place] [address]- 5306 Jun, 2014 [facility] [place] [facility] [address] [facility] [id number] [place] [address]- 6382 Jun, 2014 [facility] [place] [facility] [address] [facility] [id number] [place] [address]- 3747 May, [facility] [place] [facility] [address] [facility] [id number] [place] [address]- 3178 May, [facility] [place] [facility] [address] [facility] [id number] [address]- 4635 Apr, [facility] [place] [facility] [address] [id number] [place] [address]- 1289 Apr, [facility] [place] [facility] [address] [id number] [place] [address]- 2637 Mar, [facility] [place] [facility] [address] [id number] [place] [address]- 5675 Mar, [facility] [place] [facility] [address] [facility] [id number] [place] [address]- 7575 Mar, [facility] [place] [facility] [address] [id number] [place] [address]- 4340 Mar, [facility] [place] [facility] [address] [id number] [place] [address]- 1521 Nov, [facility] [place] [facility] [address] [id number] [place] [address]- 7203 Nov, [facility] [place] [facility] [address] [id number] [place] [address]- 1704 Nov, [facility] [place] [facility] [address] [id number] [place] [address]- 0014 Nov, [facility] [place] [facility] [address] [id number] [place] [address]- 3765 Oct, [facility] [place] [facility] [address] [id number] [place] [address]- 1669 Oct, [facility] [place] [facility] [address] [id number] [place] [address]- 2798 Oct, [facility] [place] [facility] [address] [id number] [place] [address]- 1005 Oct, [facility] [place] [facility] [address] [id number] [place] [address]- 4290 Oct, [facility] [place] [facility] [address] [id number] [place] [address]- 5235 Oct, [facility] [place] [facility] [address] [id number] [place] [address]- 1815 Oct, [facility] [place] [facility] [address] [id number] [place] [address]- 0655 Oct, [facility] [place] [facility] [address] [id number] [place] [address]- 8473 Oct, [facility] [place] [facility] [address] [id number] [place] [address]- 3568 Oct, [facility] [place] [facility] [address] [id number] [place] [address]- 9374 September, [facility] [place] [facility] [address] [id number] [place] [address]- 1630 September, [facility] [place] [facility] [address] [id number] [place] [address]- 2648 Aug, [facility] [place] [facility] [address] [id number] [place] [address]- 0346 Aug, [facility] [place] [facility] [address] [id number] [place] [address]- 6220 Aug, [facility] [place] [facility] [address] [id number] [place] [address]- 5614 Aug, [facility] [place] [facility] [address] [id number] [place] [address]- 3372 Aug, [facility] [place] [facility] [address] [id number] [place] [address] Aug, [facility] [place] [facility] [address] [id number] [place] [address] Jul, [facility] [place] [facility] [address] [id number] [place] [address] Jul, [facility] [place] [facility] [address] [id number] [place] [address] Jul, [facility] [place] [facility] [address] [id number] [place] [address] Jul, [facility] [place] [facility] [address] [id number] [place] [address] Jul, [facility] [place] [facility] [address] [id number] [place] [address] Jul, [facility] [place] [facility] [address] [id number] [place] [address] Jul, [facility] [place] [facility] [address] [id number] [place] [address] Jul, [facility] [place] [facility] [address] [id number] [place] [address] Jul, [facility] [place] [facility] [address] [id number] [place] [address] Jul, [facility] [place] [facility] [address] [id number] [place] [address] Jul, [facility] [place] [facility] [address] [id number] [place] [address] Jul, [facility] [place] [facility] [address] [id number] [place] [address] Jul, [facility] [place] [facility] [address] [id number] [place] [address] Jul, [facility] [place] [facility] [address] [id number] [place] [address] Jul, [facility] [place] [facility] [address] [facility] [id number] [place] [address] Jul, [facility] [place] [facility] [address] [id number] [place] [address] Jun, [facility] [place] [facility] [address] [id number] [place] [address] Jun, [facility] [place] [facility] [address] [facility] [id number] [place] [address] Jun, [facility] [place] [facility] [address] [facility] [id number] [place] [address] Jun, [facility] [place] [facility] [address] [id number] [place] [address] Jun, [facility] [place] [facility] [address] [id number] [place] [address] Jun, [facility] [place] [facility] [address] [id number] [place] [address] Jun, [facility] [place] [facility] [address] [facility] [id number] [place] [address] Jun, [facility] [place] [facility] [address] [id number] [place] [address] 20 Jun, 2013 [facility] [place] [facility] [address] [id number] [place] [address] 20 Jun, 2013 [facility] [place] [facility] [address] [id number] [place] [address]46 18 Jun, 2013 [facility] [place] [facility] [address] [id number] [place] [address] 2544 18 Jun, 2013 [facility] [place] [facility] [address] [id number] [place] [address] 14 Jun, 2013 [facility] [place] [facility] [address] [id number] [place] [address] 13 Jun, 2013 [facility] [place] [facility] [address] [facility] [id number] [place] [address] 13 Jun, 2013 [facility] [place] [facility] [address] [id number] [place] [address] 13 Jun, 2013 [facility] [place] [facility] [address] [id number] [place] [address] 13 Jun, 2013 [facility] [place] [facility] [address] [facility] [id number] [place] [address] 12 Jun, 2013 [facility] [place] [facility] [address] [facility] [id number] [place] [address]- 28[address] 12 Jun, 2013 [facility] [place] [facility] [address] [id number] [place] [address]- [address]45 11 Jun, 2013 [facility] [place] [facility] [address] [id number] [place] [address]- 4[address] 11 Jun, 2013 [facility] [place] [facility] [address] [id number] [place] [address]- 1465 10 Jun, 2013 [facility] [place] [facility] [address] [facility] [id number] [place] [address]- [address] 07 Jun, 2013 [facility] [place] [facility] [address] [facility] [id number] [place] [address]- [address] 07 Jun, 2013 [facility] [place] [facility] [address] [id number] [place] [address]- [address] Jun, [facility] [place] [facility] [address] [id number] [place] [address] Jun, [facility] [place] [facility] [address] [id number] [place] [address]- [address] Jun, 2013 [facility] [place] [facility] [address] [id number] [place] [address]- 56[address] Jun, [facility] [place] [facility] [address] [id number] [place] [address] Jun, [facility] [place] [facility] [address] [id number] [place] [address]- 44[address] Jun, [facility] [place] [facility] [address] [id number] [place] [address]- 94[address] May, [facility] [place] [facility] [address] [id number] [place] [address]- 67[address] May, [facility] [place] [facility] [address] [id number] [place] [address]- 139[address] May, [facility] [place] [facility] [address] [id number] [place] [address] May, [facility] [place] [facility] [address] [id number] [place] [address]- [address] May, [facility] [place] [facility] [address] [id number] [place] [address] 97[address] May, [facility] [place] [facility] [address] [id number] [place] [address]- [address] May, [facility] [place] [facility] [address] [id number] [place] [address]- [address] May, [facility] [place] [facility] [address] [id number] [place] [address]- [address] May, [facility] [address] [facility] [id number] [place] [address] May, [facility] [address] [facility] [id number] [place] [address] May, [facility] [address] [facility] [id number] [place] [address]- [address] May, [facility] [address] [facility] [id number] [place] [address] May, [facility] [address] [facility] [id number] [place] [address] May, [facility] [address] [facility] [id number] [place] [address] May, [facility] [address] [facility] [id number] [place] [address] Apr, [facility] [address] [facility] [id number] [place] [address] Apr, [facility] [address] [facility] [id number] [place] [address] Dec, [facility] [address] [facility] [id number] [place] [address] Nov, [facility] [address] [facility] [id number] [place] [address] May, [facility] [address] [facility] [id number] [place] [address] Apr, [facility] [address] [facility] [id number] [place] [address] Apr, [facility] [address] [facility] [id number] [place] [address] Apr, [facility] [address] [facility] [id number] [place] [address] Apr, IMMUNIZATIONS No Known Immunizations SOCIAL HISTORY Never Assessed REASON FOR VISIT PT follow-up PLAN OF CARE Activity Details Follow Up 3 Weeks Reason:F/U PT VITAL SIGNS MEDICATIONS Unknown Medications RESULTS No Results PROCEDURES Procedure Date Ordered Result Body Site THERAPEUTIC EXERCISES May 31, 2017 INSTRUCTIONS MEDICATIONS ADMINISTERED No Known Medications MEDICAL (GENERAL) HISTORY Type Description Date Medical History asthma Medical History type II diabetes Medical History sleep apnea Medical History narcolepsy Surgical History hysterectomy Hospitalization History Chest pain-[facility] 02/27/17
--- OUTSIDE RECORDS SUMMARY | 2017-12-01 19:08 | XMS REPORT ---
Author Author TAWANA QUINTEN [facility] Address [address] [place] [address] Care Team Providers Care Public Weigher Name Role Phone TAWANA QUINTEN Unavailable PROBLEMS Type Condition ICD9-CM Code [id number] Code Onset Dates Condition Status SNOMED Code Problem Right carpal tunnel syndrome G56.01 Active 58285885 Problem Gastroesophageal reflux disease with esophagitis K21.0 Active 767372869 Problem Falls frequently R29.6 Active 331514929 Problem Porokeratosis Q82.8 Active 441847326 Problem Posterior subcapsular age-related cataract of both eyes H25.043 Active 3659614 Problem Non-alcoholic fatty liver disease K76.0 Active 786606792 Problem Delayed gastric emptying K30 Active 412084467 Problem Pain in left foot M79.672 Active 8819540 Problem Other chronic pain G89.29 Active 94623534 Problem Tarsal tunnel syndrome of left side G57.52 Active 77333216 Problem Obesity E66.9 Active 310112366 Problem Hypermetropia, bilateral H52.03 Active 85409204 Problem Type 2 diabetes mellitus with hyperglycemia E11.65 Active 08302012 Problem Nuclear cataract of both eyes H25.13 Active 98376185 Problem Presbyopia OU H52.4 Active 23847522 Problem Obstructive sleep apnea G47.33 Active 05554908 Problem Shortness of breath R06.02 Active 594192661 Problem Type 2 diabetes mellitus with diabetic polyneuropathy E11.42 Active 25396029 Problem Lung nodule R91.1 Active 284697492 Problem Mixed hyperlipidemia E78.2 Active 815605006 Problem Primary narcolepsy with cataplexy G47.411 Active 537453303 ALLERGIES No Information ENCOUNTERS Encounter Location Date Diagnosis [facility] [address] [facility] [id number] [address] Nov, [facility] [address], [place] [address] 5[address] Nov, [facility] [address], [place] [address] 1826 Nov, [facility] [id number] [place] [address] 13638- 7040 Oct, [facility] [id number] [place] [address] 96739- 5645 Oct, [facility] [address] [id number] [place] [address] 59359- 4501 September, [facility] [id number] [place] [address] 89190- 2486 September, Type 2 diabetes mellitus with hyperglycemia E11.65 [facility] [id number] [place] [address] 43287- 3106 September, Type 2 diabetes mellitus with hyperglycemia E11.65 [facility] [id number] [place] [address] 17679- 0500 September, Porokeratosis Q82.8 and Type 2 diabetes mellitus with diabetic polyneuropathy E11.42 [facility] [id number] [place] [address] 59631 -8370 Aug, Seasonal allergic rhinitis, unspecified trigger J30.2 [facility] [address], [place] [address] 9263 Aug, [facility] [id number] [place] [address] 42771- 1370 Aug, [facility] [id number] [place] [address] [id number] Aug, Dental examination V72.2 and Dental examination Z01.20 [facility] [id number] [place] [address] 17007- 0610 Aug, Dental examination Z01.20 and Dental caries K02.9 [facility] [id number] [place] [address] 37390- 2334 Aug, Obstructive sleep apnea G47.33 ; Obesity E66.9 ; Type 2 diabetes mellitus with hyperglycemia E11.65 ; Palpitations R00.2 and Corns and callosities L84 [address] 33891- 3557 Jul, [place] [address] 21414- 8267 Jul, [address] 5[address]45- 2379 Jun, Type 2 diabetes mellitus with hyperglycemia E11.65 ; Colon cancer screening Z12.11 ; Mixed hyperlipidemia E78.2 ; Non-alcoholic fatty liver disease K76.0 ; Gastroesophageal reflux disease with esophagitis K21.0 and Pain of upper abdomen R10.[address] 42443- 7290 Jun, Falls frequently R29.6 [facility] [address] [address]4 May, Infection of nose J34.[address] 87697- 0422 May, Bilateral low back pain without sciatica M54.[address] 79843- 0087 May, Type 2 diabetes mellitus with diabetic polyneuropathy E11.42 ; Obstructive sleep apnea G47.33 and Type 2 diabetes mellitus with hyperglycemia E11.[address] 61704- 3211 Apr, Bilateral low back pain without sciatica M54.[address] 65191- 0699 Apr, Mixed hyperlipidemia E78.2 and Type 2 diabetes mellitus with hyperglycemia E11.[address] 90682- 4646 Apr, Type 2 diabetes mellitus with diabetic polyneuropathy E11.42 [facility] [id number] [place] [address] 93908- 4110 Apr, [facility] [address] 01260- 0850 Apr, Skin lesion of left arm L98.9 and Skin lesion of left leg L98.9 [place] [address] 95389- 2405 Mar, Bilateral low back pain without sciatica M54.5 [place] [address] 58050- 4988 Mar, Plantar fasciitis of left foot M72.2 ; Bursitis of left foot M71.572 and Type 2 diabetes mellitus with diabetic polyneuropathy E11.42 [place] [address] 44980- 0492 Feb, Non-alcoholic fatty liver disease K76.0 ; Keratoacanthoma L85.8 ; Seborrheic keratosis L82.1 ; Type 2 diabetes mellitus with hyperglycemia E11.65 and Nuclear cataract of both eyes H25.13 [place] [address] [id number] Feb, [place] [address] [id number] [place] [address] 53047- 2319 Feb, [place] [address] 56708- 2735 Feb, [facility] [address] [id number] [place] [address] 70815- 9849 Feb, Type 2 diabetes mellitus with hyperglycemia E11.65 ; Back muscle spasm M62.830 and Encounter for immunization Z23 [facility] [id number] [place] [address] 08377- 7438 08 Jan, 2017 Plantar fasciitis of left foot M72.2 [facility] [address] 69031- 1322 Dec, [facility] [id number] [place] [address] 72684- 5713 Dec, Plantar fasciitis of left foot M72.2 and Tarsal tunnel syndrome of left side G57.52 [facility] [id number] [place] [address] 36380- 3449 Dec, [facility] [id number] [place] [address] 29577 -3716 Nov, Mary Jane rash of groin B37.89 and Rash and nonspecific skin eruption R21 [place] [address] [id number] [place] [address] 32470- 2975 Nov, [facility] [address] [id number] [place] [address] 03349- 2884 Oct, Type 2 diabetes mellitus with hyperglycemia E11.65 and Mixed hyperlipidemia E78.2 [place] [address] [id number] [place] [address] 86798- 8236 Oct, [place] [address] [address] [id number] [place] [address] 15315- 9533 Oct, Chest pain, unspecified R07.9 ; Palpitations R00.2 ; Syncope R55 and Mixed hyperlipidemia E78.2 [place] [address] [id number] [place] [address] 74239- 2375 Oct, Plantar fasciitis, bilateral M72.2 and Type 1 diabetes mellitus with diabetic neuropathy E10.40 [place] [address] [id number] [place] [address] 94976- 0858 Oct, [place] [address] [address] [id number] [place] [address] 62406- 5228 September, Type 2 diabetes mellitus with hyperglycemia E11.65 [place] [id number] [place] [address] 58550- 8652 September, Type 2 diabetes mellitus with hyperglycemia E11.65 ; Type 2 diabetes mellitus with diabetic polyneuropathy E11.42 ; Gastroesophageal reflux disease with esophagitis K21.0 and Headache, unspecified headache type R51 [facility] [id number] [place] [address] 41501- 7291 September, [facility] [id number] [place] [address] 63032- 8643 September, [facility] [address] [id number] [place] [address] 06607- 8541 September, [facility] [address] [id number] [place] [address] 60826- 4250 September, Other chest pain R07.89 ; Heart palpitations R00.2 ; Mixed hyperlipidemia E78.2 and Obesity E66.9 [facility] [id number] [place] [address] 85336- 0829 Aug, [facility] [address] [id number] [place] [address] 85456- 0401 Aug, Type 2 diabetes mellitus with diabetic polyneuropathy E11.42 and Type 2 diabetes mellitus with hyperglycemia E11.65 [place] [id number] [place] [address] 74326- 8149 Aug, [place] [address] [address] [id number] [place] [address] 09612- 7373 Aug, [facility] [id number] [place] [address] 77073- 8719 Aug, [facility] [address] [address] [id number] [place] [address] 69787- 5156 Aug, Type 2 diabetes mellitus with hyperglycemia E11.65 [facility] [address] [id number] [place] [address] 71813- 9486 Aug, [facility] [address] [id number] [place] [address] 69741- 3280 Jul, Type 2 diabetes mellitus with diabetic polyneuropathy E11.42 [facility] [address] [id number] [place] [address] 20851- 4835 Jul, Type 2 diabetes mellitus with hyperglycemia E11.65 [facility] [id number] [place] [address] 80094- 8508 Jul, [facility] [id number] [place] [address] 63100- 6504 Jul, [facility] [id number] [place] [address] 70508- 7002 Jul, [facility] [id number] [place] [address] 20498- 1146 Jul, Type 2 diabetes mellitus with diabetic polyneuropathy E11.42 and Type 2 diabetes mellitus with hyperglycemia E11.65 [facility] [id number] [place] [address] 93107- 2567 Jun, Obstructive sleep apnea G47.33 [facility] [address] [id number] [place] [address] 47552- 5506 Jun, Type 2 diabetes mellitus with diabetic polyneuropathy E11.42 ; Primary narcolepsy with cataplexy G47.411 ; Abdominal bloating R14.0 ; Other chest pain R07.89 and Vision problems H54.7 [facility] [address] [address] [id number] [place] [address] 18820- 3468 Jun, [facility] [id number] [place] [address] 76871- 4599 May, [facility] [address] [id number] [place] [address] 46765- 3633 Apr, [facility] [address] [id number] [place] [address] 67382- 0159 Apr, Plantar fasciitis of left foot M72.2 [facility] [address] [place] [address] [id number] [place] [address] 52288- 4403 Mar, [facility] [address] [id number] [place] [address] 99220- 9641 Mar, Plantar fasciitis of left foot M72.2 and Type 2 diabetes mellitus with diabetic polyneuropathy E11.42 [place] [address] [place] [address] [id number] [place] [address] 38483- 2921 Feb, Type 2 diabetes mellitus with hyperglycemia E11.65 ; Mixed hyperlipidemia E78.2 and Encounter for immunization Z23 [place] [address] [place] [id number] [place] [address] 51033- 1087 Feb, [place] [address] 49066- 1251 Feb, [place] [address] [place] [id number] [place] [address] 94248- 8691 Feb, Type 2 diabetes mellitus with hyperglycemia E11.65 [place] [address] [id number] [place] [address] 74880- 1495 Feb, Type 2 diabetes mellitus with hyperglycemia E11.65 [place] [address] 35964- 5771 Jan, [place] [address] [place] [id number] [place] [address] 10646- 8791 Dec, Pain in left foot M79.672 ; Other chronic pain G89.29 ; Type 2 diabetes mellitus with hyperglycemia E11.65 ; Obstructive sleep apnea G47.33 ; Falls frequently R29.6 ; Mixed hyperlipidemia E78.2 and Gastroesophageal reflux disease with esophagitis K21.0 [place] [address] [address] [id number] [place] [address] 27512- 6640 Nov, [place] [address] [id number] [place] [address] 94976- 2698 Oct, Type 2 diabetes mellitus with diabetic polyneuropathy E11.42 [place] [address] [id number] [place] [address] 82864- 1465 Oct, [place] [address] [address] [id number] [place] [address] 64440- 2680 Oct, [place] [address] [place] [id number] [place] [address] 39900- 1626 September, [facility] [address], [place] [address]- 2231 September, [facility] [id number] [address]- 6713 September, [facility] [address], [place] [address]- 0249 September, [facility] [address] [place] [id number] [place] [address] 55388- 3716 September, [facility] [address], [place] [address]- 1208 Aug, Type 2 diabetes mellitus with hyperglycemia E11.65 ; Mixed hyperlipidemia E78.2 and Right carpal tunnel syndrome G56.01 [facility] [address], [place] [address]- 4420 Aug, [facility] [address] [id number] [place] [address] 02183- 3839 Jul, [facility] [address], [place] [address]- 0361 Jun, [facility] [address], [place] [address]- 2560 Jun, [facility] [address], [place] [address]- 3978 May, [facility] [address], [place] [address]- 8352 May, [facility] [address], [place] [address]- 7865 May, Type 2 diabetes mellitus with hyperglycemia E11.65 and Falls E888.9 [facility] [address], [place] [address]- 2312 Apr, Type 2 diabetes mellitus with hyperglycemia E11.65 [facility] [address], [place] [address]- 4765 Apr, [facility] [id number] [place] [address] 23905- 7361 Apr, Type 2 diabetes mellitus with hyperglycemia E11.65 [facility] [address] [place] [id number] [place] [address] 49479- 6918 Apr, [facility] [address] [place] [id number] [place] [address] 99657- 1088 Mar, Type 2 diabetes mellitus with diabetic polyneuropathy E11.42 ; Bilateral low back pain without sciatica M54.5 and Dry nose J34.89 [facility] [address] [place] [id number] [place] [address] 17905- 0021 Mar, Palpitations R00.2 ; Syncope R55 ; DM (diabetes mellitus) E11.9 and Obesity E66.9 [facility] [address] [place] [id number] [place] [address] 50249- 1013 Mar, [facility] [address] [place] [id number] [place] [address] 12951- 8008 Mar, [facility] [address] [place] [id number] [place] [address] 21890- 2835 Mar, [facility] [address] [place] [id number] [place] [address] 69620- 8799 Feb, [facility] [address] [place] [id number] [place] [address] 92740- 0846 Jan, [facility] [address] [id number] [place] [address] 79878- 0904 Jan, [facility] [address] [place] [id number] [place] [address] 00136- 9294 Jan, Falls E888.9 and Sinusitis 473.9 [facility] [address] [place] [place] [id number] [place] [address] 50433- 0718 Dec, [facility] [address] [place] [id number] [place] [address] 20839- 5264 Dec, [facility] [id number] [place] [address] 73678- 3237 Dec, [facility] [address] [place] [id number] [place] [address] 38016- 9723 Dec, [facility] [address] [id number] [place] [address] 39979- 8603 Dec, Diabetes mellitus without mention of complication, type II or unspecified type, not stated as uncontrolled 250.00 and Shortness of breath 786.05 [facility] [address] [place] [id number] [place] [address] 37479- 7772 Dec, [facility] [address] [place] [id number] [place] [address] 82621- 2445 Nov, [facility] [address] [place] [id number] [place] [address] 02431- 0057 Nov, [facility] [address] [place] [id number] [place] [address] 91422- 5350 Oct, Restrictive lung disease 518.89 [facility] [address] [place] [id number] [place] [address] 91559- 7947 Oct, [facility] [address] [place] [id number] [place] [address] 07264- 2787 Oct, Shortness of breath 786.05 [facility] [address] [place] [id number] [place] [address] 81725- 5396 September, Other nonspecific abnormal finding of lung field 793.19 ; Diabetes mellitus without mention of complication, type II or unspecified type, not stated as uncontrolled 250.00 ; Hyperlipidemia LDL goal < 100 272.4 ; Narcolepsy, with cataplexy 347.01 ; Shortness of breath 786.05 and Chest pain 786.50 [facility] [id number] [place] [address] 89912- 1314 Aug, [facility] [address] [place] [id number] [place] [address] 42383- 4445 Aug, [facility] [place] [facility] [address] [id number] [place] [address]- 9352 Jun, 2014 [facility] [place] [facility] [address] [id number] [place] [address]- 0204 Jun, 2014 [facility] [place] [facility] [address] [id number] [place] [address]- 3595 Jun, 2014 [facility] [place] [facility] [address] [id number] [place] [address]- 0048 Jun, 2014 [facility] [place] [facility] [address] [id number] [place] [address]- 2017 Jun, 2014 [facility] [place] [facility] [address] [id number] [place] [address]- 1159 Jun, 2014 [facility] [place] [facility] [address] [id number] [place] [address]- 2831 Jun, 2014 [facility] [place] [facility] [address] [id number] [place] [address]- 9955 Jun, 2014 [facility] [place] [facility] [address] [id number] [place] [address]- 9272 May, [facility] [place] [facility] [address] [facility] [id number] [place] [address]- 6444 May, [facility] [place] [facility] [address] [id number] [place] [address]- 7524 Apr, [facility] [place] [facility] [address] [id number] [place] [address]- 6560 Apr, [facility] [place] [facility] [address] [id number] [place] [address]- 7522 Mar, [facility] [place] [facility] [address] [id number] [place] [address]- 8405 Mar, [facility] [place] [facility] [address] [facility] [id number] [place] [address]- 6274 Mar, [facility] [place] [facility] [address] [id number] [place] [address]- 7054 Mar, [facility] [place] [facility] [address] [id number] [place] [address]- 4323 Nov, [facility] [place] [facility] [address] [id number] [place] [address]- 8426 Nov, [facility] [place] [facility] [address] [id number] [place] [address]- 3990 Nov, [facility] [place] [facility] [address] [id number] [place] [address]- 8177 Nov, [facility] [place] [facility] [address] [id number] [place] [address]- 1109 Oct, [facility] [place] [facility] [address] [id number] [place] [address]- 1116 Oct, [facility] [place] [facility] [address] [id number] [place] [address]- 2367 Oct, [facility] [place] [facility] [address] [id number] [place] [address]- 6535 Oct, [facility] [place] [facility] [address] [id number] [place] [address]- 1950 Oct, [facility] [place] [facility] [address] [id number] [place] [address]- 8825 Oct, [facility] [place] [facility] [address] [id number] [place] [address]- 7780 Oct, [facility] [place] [facility] [address] [id number] [place] [address]- 9444 Oct, [facility] [place] [facility] [address] [id number] [place] [address]- 4447 Oct, [facility] [place] [facility] [address] [id number] [place] [address]- 5289 Oct, [facility] [place] [facility] [address] [id number] [place] [address]- 9975 September, [facility] [place] [facility] [address] [id number] [place] [address]- 1101 September, [facility] [place] [facility] [address] [id number] [place] [address]- 6296 Aug, [facility] [place] [facility] [address] [id number] [place] [address]- 7613 Aug, [facility] [place] [facility] [address] [id number] [place] [address]- 6558 Aug, [facility] [place] [facility] [address] [id number] [place] [address] Aug, [facility] [place] [facility] [address] [id number] [place] [address] Aug, [facility] [place] [facility] [address] [id number] [place] [address] Aug, [facility] [place] [facility] [address] [id number] [place] [address] Jul, [facility] [place] [facility] [address] [id number] [place] [address] Jul, [facility] [place] [facility] [address] [id number] [place] [address] Jul, [facility] [place] [facility] [address] [id number] [place] [address] Jul, [facility] [place] [facility] [address] [id number] [place] [address] Jul, [facility] [place] [facility] [address] [id number] [place] [address] Jul, [facility] [place] [facility] [address] [id number] [place] [address] Jul, [facility] [place] [facility] [address] [id number] [place] [address] Jul, [facility] [place] [facility] [address] [id number] [place] [address] 24 Jul, 2013 [facility] [place] [facility] [address] [id number] [place] [address]- [address] Jul, [facility] [place] [facility] [address] [id number] [place] [address] Jul, [facility] [place] [facility] [address] [facility] [id number] [place] [address]- [address] Jul, [facility] [place] [facility] [address] [id number] [place] [address] Jul, [facility] [place] [facility] [address] [id number] [place] [address] Jul, [facility] [place] [facility] [address] [facility] [id number] [place] [address] Jul, [facility] [place] [facility] [address] [facility] [id number] [place] [address]- [address] Jul, [facility] [place] [facility] [address] [id number] [place] [address] Jun, [facility] [place] [facility] [address] [id number] [place] [address]- [address] Jun, [facility] [place] [facility] [address] [facility] [id number] [place] [address]- [address] Jun, [facility] [place] [facility] [address] [id number] [place] [address] Jun, [facility] [place] [facility] [address] [facility] [id number] [place] [address]- [address] Jun, [facility] [place] [facility] [address] [id number] [place] [address] Jun, [facility] [place] [facility] [address] [facility] [id number] [place] [address]- [address] Jun, [facility] [place] [facility] [address] [facility] [id number] [place] [address]- [address] Jun, [facility] [place] [facility] [address] [id number] [place] [address] 20 Jun, 2013 [facility] [place] [facility] [address] [id number] [place] [address] 20 Jun, 2013 [facility] [place] [facility] [address] [id number] [place] [address] 18 Jun, 2013 [facility] [place] [facility] [address] [id number] [place] [address]41 18 Jun, 2013 [facility] [place] [facility] [address] [id number] [place] [address]40 14 Jun, 2013 [facility] [place] [facility] [address] [id number] [place] [address] 13 Jun, 2013 [facility] [place] [facility] [address] [id number] [place] [address]- 4066 13 Jun, 2013 [facility] [place] [facility] [address] [id number] [place] [address] 13 Jun, 2013 [facility] [place] [facility] [address] [id number] [place] [address] 13 Jun, 2013 [facility] [place] [facility] [address] [facility] [id number] [place] [address]- [address] 12 Jun, 2013 [facility] [place] [facility] [address] [id number] [place] [address]- [address] 12 Jun, 2013 [facility] [place] [facility] [address] [id number] [place] [address]- [address]40 11 Jun, 2013 [facility] [place] [facility] [address] [id number] [place] [address]- 2547 11 Jun, 2013 [facility] [place] [facility] [address] [id number] [place] [address]- 8651 10 Jun, 2013 [facility] [place] [facility] [address] [facility] [id number] [place] [address]- [address]41 07 Jun, 2013 [facility] [place] [facility] [address] [id number] [place] [address]- 0833 07 Jun, 2013 [facility] [place] [facility] [address] [id number] [place] [address]159 Jun, 2013 [facility] [place] [facility] [address] [id number] [place] [address]- [address]90 Jun, 2013 [facility] [place] [facility] [address] [id number] [place] [address]- [address]85 Jun, 2013 [facility] [place] [facility] [address] [id number] [place] [address]- [address]99 Jun, 2013 [facility] [place] [facility] [address] [id number] [place] [address]- [address] Jun, [facility] [place] [facility] [address] [id number] [place] [address] Jun, [facility] [place] [facility] [address] [id number] [place] [address]- [address] May, [facility] [place] [facility] [address] [id number] [place] [address]- [address] May, [facility] [place] [facility] [address] [id number] [place] [address]- [address]248 May, [facility] [place] [facility] [address] [id number] [place] [address]- [address]757 May, [facility] [place] [facility] [address] [id number] [place] [address]- [address]902 May, [facility] [place] [facility] [address] [id number] [place] [address]- 59[address] May, [facility] [place] [facility] [address] [id number] [place] [address]- [address]600 May, [facility] [place] [facility] [address] [id number] [place] [address] 8893 May, [facility] [place] [facility] [address] [id number], [place] [address] May, [facility] [address] [facility] [id number] [place] [address] May, [facility] [address] [facility] [id number] [place] [address]- [address]100 May, [facility] [address] [facility] [id number] [place] [address] 9410 May, [facility] [address] [facility] [id number], [place] [address] May, [facility] [address] [facility] [id number] [place] [address] May, [facility] [address] [facility] [id number] [place] [address] May, [facility] [address] [facility] [id number][place] [address] [address] Apr, [facility] [address] [facility] [id number], [place] [address] Apr, [facility] [address] [facility] [id number], [place] [address] Dec, [facility] [address] [facility] [id number], [place] [address] Nov, [facility] [address] [facility] [id number], [place] [address] May, [facility] [address] [facility] [id number], [place] [address] Apr, [facility] [address] [facility] [id number], [place] [address]- [address]79 Apr, [facility] [address] [facility] [id number], [place] [address] Apr, [facility] [address] [facility] [id number], [place] [address] Apr, IMMUNIZATIONS No Known Immunizations SOCIAL HISTORY Never Assessed REASON FOR VISIT Requests return call PLAN OF CARE VITAL SIGNS MEDICATIONS Unknown Medications RESULTS No Results PROCEDURES No Known procedures INSTRUCTIONS MEDICATIONS ADMINISTERED No Known Medications MEDICAL (GENERAL) HISTORY Type Description Date Medical History asthma Medical History type II diabetes Medical History sleep apnea Medical History narcolepsy Surgical History hysterectomy Hospitalization History Chest pain-[facility] 02/27/17
--- OUTSIDE RECORDS SUMMARY | 2017-12-01 19:08 | XMS REPORT ---
Author Author ADALGISA MARTINEZ [facility] Address [address] [place] [address] Care Team Providers Care Supervisor Pumping Name Role Phone ADALGISA MARTINEZ Unavailable PROBLEMS Type Condition ICD9-CM Code BBK31-SQ Code Onset Dates Condition Status SNOMED Code Problem Right carpal tunnel syndrome G56.01 Active 43880979 Problem Gastroesophageal reflux disease with esophagitis K21.0 Active 483127826 Problem Falls frequently R29.6 Active 627988424 Problem Porokeratosis Q82.8 Active 349232590 Problem Posterior subcapsular age-related cataract of both eyes H25.043 Active 0479587 Problem Non-alcoholic fatty liver disease K76.0 Active 672935014 Problem Delayed gastric emptying K30 Active 290937960 Problem Pain in left foot M79.672 Active 2285809 Problem Other chronic pain G89.29 Active 19380783 Problem Tarsal tunnel syndrome of left side G57.52 Active 74900533 Problem Obesity E66.9 Active 523182954 Problem Hypermetropia, bilateral H52.03 Active 68736934 Problem Type 2 diabetes mellitus with hyperglycemia E11.65 Active 78092362 Problem Nuclear cataract of both eyes H25.13 Active 49928255 Problem Presbyopia OU H52.4 Active 12765811 Problem Obstructive sleep apnea G47.33 Active 55826742 Problem Shortness of breath R06.02 Active 673848847 Problem Type 2 diabetes mellitus with diabetic polyneuropathy E11.42 Active 97561741 Problem Lung nodule R91.1 Active 160549310 Problem Mixed hyperlipidemia E78.2 Active 929702891 Problem Primary narcolepsy with cataplexy G47.411 Active [id number] ALLERGIES No Information ENCOUNTERS Encounter Location Date Diagnosis [facility] [address] [facility] [id number] [address] Nov, [facility] [id number] [place] [address] 21136- 6123 September, [facility] [id number] [place] [address] 28851- 9075 September, [facility] [id number] [place] [address] 86424- 0520 September, Type 2 diabetes mellitus with hyperglycemia E11.65 [facility] [id number] [place] [address] 24673- 5979 September, Type 2 diabetes mellitus with hyperglycemia E11.65 [facility] [id number] [place] [address] 36998- 3664 September, Porokeratosis Q82.8 and Type 2 diabetes mellitus with diabetic polyneuropathy E11.42 [facility] [id number] [place] [address] 54268 -5115 Aug, Seasonal allergic rhinitis, unspecified trigger J30.2 [facility] [id number] [place] [address] 99608- 7185 Aug, [facility] [id number] [place] [address] 55685- 6432 Aug, [facility] [id number] [place] [address] [id number] Aug, Dental examination V72.2 and Dental examination Z01.20 [facility] [id number] [place] [address] 74206- 3003 Aug, Dental examination Z01.20 and Dental caries K02.9 [facility] [id number] [place] [address] 08495- 3963 Aug, Obstructive sleep apnea G47.33 ; Obesity E66.9 ; Type 2 diabetes mellitus with hyperglycemia E11.65 ; Palpitations R00.2 and Corns and callosities L84 [facility] [id number] [place] [address] 68810- 4458 Jul, [facility] [address] 17503- 9181 Jul, [facility] [id number] [place] [address] 22367- 7581 Jun, Type 2 diabetes mellitus with hyperglycemia E11.65 ; Colon cancer screening Z12.11 ; Mixed hyperlipidemia E78.2 ; Non-alcoholic fatty liver disease K76.0 ; Gastroesophageal reflux disease with esophagitis K21.0 and Pain of upper abdomen R10.10 [place] [id number] [place] [address] 86708- 1354 09 Jun, 2017 Falls frequently R29.6 [facility] [id number] [place] [address] 00513 -6512 May, Infection of nose J34.89 [place] [id number] [place] [address] 01794- 8221 May, Bilateral low back pain without sciatica M54.5 [place] [address] 05684- 3231 May, Type 2 diabetes mellitus with diabetic polyneuropathy E11.42 ; Obstructive sleep apnea G47.33 and Type 2 diabetes mellitus with hyperglycemia E11.65 [facility] [id number] [place] [address] 71922- 2501 Apr, Bilateral low back pain without sciatica M54.5 [facility] [id number] [place] [address] 35712- 3072 Apr, Mixed hyperlipidemia E78.2 and Type 2 diabetes mellitus with hyperglycemia E11.65 [facility] [id number] [place] [address] 79808- 4378 Apr, Type 2 diabetes mellitus with diabetic polyneuropathy E11.42 [facility] [place] [id number] [place] [address] 00608- 2063 Apr, [facility] [id number] [place] [address] 86804- 3315 Apr, Skin lesion of left arm L98.9 and Skin lesion of left leg L98.9 [facility] [id number] [place] [address] 27489- 3898 Mar, Bilateral low back pain without sciatica M54.5 [place] [address] 14388- 6132 Mar, Plantar fasciitis of left foot M72.2 ; Bursitis of left foot M71.572 and Type 2 diabetes mellitus with diabetic polyneuropathy E11.42 [place] [address] 30701- 5877 Feb, Non-alcoholic fatty liver disease K76.0 ; Keratoacanthoma L85.8 ; Seborrheic keratosis L82.1 ; Type 2 diabetes mellitus with hyperglycemia E11.65 and Nuclear cataract of both eyes H25.13 [facility] [address] [id number] Feb, [place] [address] 60049- 3280 Feb, [place] [address] 67441- 9080 Feb, [place] [address] 63605- 7887 Feb, Type 2 diabetes mellitus with hyperglycemia E11.65 ; Back muscle spasm M62.830 and Encounter for immunization Z23 [facility] [address] 95241- 1083 Jan, Plantar fasciitis of left foot M72.2 [facility] [id number] [place] [address] 00439- 7707 Dec, [facility] [address] 79960- 0293 Dec, Plantar fasciitis of left foot M72.2 and Tarsal tunnel syndrome of left side G57.52 [facility] [address] 41418- 7391 Dec, [facility] [address] [address] Nov, Mary Jane rash of groin B37.89 and Rash and nonspecific skin eruption R21 [facility] [id number] [place] [address] 22243- 3160 Nov, [facility] [id number] [place] [address] 56894- 9328 Oct, Type 2 diabetes mellitus with hyperglycemia E11.65 and Mixed hyperlipidemia E78.2 [facility] [id number] [place] [address] 69837- 0434 Oct, [facility] [id number] [place] [address] 54733- 1330 Oct, Chest pain, unspecified R07.9 ; Palpitations R00.2 ; Syncope R55 and Mixed hyperlipidemia E78.2 [place] [id number] [place] [address] 74500- 9212 Oct, Plantar fasciitis, bilateral M72.2 and Type 1 diabetes mellitus with diabetic neuropathy E10.40 [facility] [id number] [place] [address] 66607- 7515 Oct, [facility] [id number] [place] [address] 57792- 7383 September, Type 2 diabetes mellitus with hyperglycemia E11.65 [facility] [id number] [place] [address] 20647- 1065 September, Type 2 diabetes mellitus with hyperglycemia E11.65 ; Type 2 diabetes mellitus with diabetic polyneuropathy E11.42 ; Gastroesophageal reflux disease with esophagitis K21.0 and Headache, unspecified headache type R51 [facility] [id number] [place] [address] 11360- 6517 September, [facility] [id number] [place] [address] 03517- 3177 September, [facility] [address] [place] [address]- 1939 September, [facility] [id number] [place] [address] 84285- 3497 September, Other chest pain R07.89 ; Heart palpitations R00.2 ; Mixed hyperlipidemia E78.2 and Obesity E66.9 [facility] [id number] [place] [address] 77113- 7000 Aug, [facility] [id number] [place] [address] 15453- 4049 Aug, Type 2 diabetes mellitus with diabetic polyneuropathy E11.42 and Type 2 diabetes mellitus with hyperglycemia E11.65 [facility] [id number] [place] [address] 75642- 4810 Aug, [facility] [id number] [place] [address] 69441- 8817 Aug, [facility] [id number] [place] [address] 98390- 9679 Aug, [facility] [id number] [place] [address] 67728- 1729 Aug, Type 2 diabetes mellitus with hyperglycemia E11.65 [facility] [id number] [place] [address] 39496- 8635 Aug, [facility] [id number] [place] [address] 71637- 6583 Jul, Type 2 diabetes mellitus with diabetic polyneuropathy E11.42 [facility] [address] [address]- 0757 Jul, Type 2 diabetes mellitus with hyperglycemia E11.65 [facility] [id number] [place] [address] 70094- 0754 Jul, [facility] [address] [address]- 1058 Jul, [facility] [id number] [place] [address] 45265- 6801 Jul, [place] [id number] [place] [address] 49635- 8433 Jul, Type 2 diabetes mellitus with diabetic polyneuropathy E11.42 and Type 2 diabetes mellitus with hyperglycemia E11.65 [facility] [id number] [place] [address] 16918- 2915 Jun, Obstructive sleep apnea G47.33 [place] [address] 98622- 3746 Jun, Type 2 diabetes mellitus with diabetic polyneuropathy E11.42 ; Primary narcolepsy with cataplexy G47.411 ; Abdominal bloating R14.0 ; Other chest pain R07.89 and Vision problems H54.7 [place] [id number] [place] [address] 66150- 0645 Jun, [place] [address] 32585- 2151 May, [place] [address] 72239- 0121 Apr, [place] [address] 91717- 4997 Apr, Plantar fasciitis of left foot M72.2 [place] [id number] [place] [address] 37022- 3259 Mar, [place] [address] 52807- 3853 04 Mar, 2016 Plantar fasciitis of left foot M72.2 and Type 2 diabetes mellitus with diabetic polyneuropathy E11.42 [place] [address] 05419- 6209 14 Feb, 2016 Type 2 diabetes mellitus with hyperglycemia E11.65 ; Mixed hyperlipidemia E78.2 and Encounter for immunization Z23 [place] [address] 86461- 7721 Feb, [facility] [address] [address]- 1893 Feb, [facility] [id number] [place] [address] 69357- 1316 Feb, Type 2 diabetes mellitus with hyperglycemia E11.65 [facility] [id number] [place] [address] 27411- 8985 Feb, Type 2 diabetes mellitus with hyperglycemia E11.65 [facility] [id number] [place] [address] 23654- 6907 Jan, [facility] [id number] [place] [address] 18762- 8155 Dec, Pain in left foot M79.672 ; Other chronic pain G89.29 ; Type 2 diabetes mellitus with hyperglycemia E11.65 ; Obstructive sleep apnea G47.33 ; Falls frequently R29.6 ; Mixed hyperlipidemia E78.2 and Gastroesophageal reflux disease with esophagitis K21.0 [facility] [id number] [address]- 9767 Nov, [facility] [id number] [place] [address] 63734- 8563 Oct, Type 2 diabetes mellitus with diabetic polyneuropathy E11.42 [facility] [address], [place] [address]- 6560 Oct, [facility] [address], [place] [address]- 5342 Oct, [facility] [address], [place] [address]- 6062 September, [facility] [id number] [place] [address] 98704- 5498 September, [facility] [address], [place] [address]- 4555 September, [facility] [id number] [place] [address] 76954- 7529 September, [facility] [address] [address]- 8594 September, [facility] [id number] [place] [address] 44740- 5149 Aug, Type 2 diabetes mellitus with hyperglycemia E11.65 ; Mixed hyperlipidemia E78.2 and Right carpal tunnel syndrome G56.01 [facility] [address], [place] [address]- 6630 Aug, [facility] [address] [address]- 1996 Jul, [facility] [id number] [place] [address] 61529- 0511 Jun, [facility] [id number] [place] [address] 94687- 4788 Jun, [facility] [id number] [place] [address] 24758- 6254 May, [facility] [address], [place] [address]- 9298 May, [facility] [id number] [place] [address] 49207- 5609 May, Type 2 diabetes mellitus with hyperglycemia E11.65 and Falls E888.9 [facility] [address], [place] [address]- 9293 Apr, Type 2 diabetes mellitus with hyperglycemia E11.65 [facility] [address], [place] [address]- 8040 Apr, [facility] [address], [place] [address]- 5010 Apr, Type 2 diabetes mellitus with hyperglycemia E11.65 [facility] [address] 3179 Apr, [facility] [id number] [place] [address] 98799- 0892 Mar, Type 2 diabetes mellitus with diabetic polyneuropathy E11.42 ; Bilateral low back pain without sciatica M54.5 and Dry nose J34.89 [facility] [id number] [place] [address] 96831- 1667 Mar, Palpitations R00.2 ; Syncope R55 ; DM (diabetes mellitus) E11.9 and Obesity E66.9 [facility] [address] 57258- 6847 Mar, [facility] [address] 04997- 4410 Mar, [facility] [address] 35050- 3178 Mar, [facility] [address] 15836- 1044 Feb, [facility] [id number] [place] [address] 98482- 5085 Jan, [facility] [id number] [place] [address] 09051- 3080 Jan, [facility] [id number] [place] [address] 00417- 2467 Jan, Falls E888.9 and Sinusitis 473.9 [facility] [id number] [place] [address] 91559- 9319 Dec, [facility] [id number] [place] [address] 96973- 1584 Dec, [facility] [id number] [place] [address] 35318- 8868 Dec, [facility] [id number] [place] [address] 00343- 4677 Dec, [facility] [id number] [place] [address] 81745- 9352 Dec, Diabetes mellitus without mention of complication, type II or unspecified type, not stated as uncontrolled 250.00 and Shortness of breath 786.05 [facility] [id number] [place] [address] 47019- 8041 Dec, [facility] [id number] [place] [address] 29615- 2059 Nov, [facility] [id number] [place] [address] 32819- 1248 Nov, [facility] [id number] [place] [address] 22134- 5149 Oct, Restrictive lung disease 518.89 [facility] [id number] [place] [address] 92667- 0166 Oct, [facility] [id number] [place] [address] 33631- 1238 Oct, Shortness of breath 786.05 [facility] [id number] [place] [address] 44408- 9304 September, Other nonspecific abnormal finding of lung field 793.19 ; Diabetes mellitus without mention of complication, type II or unspecified type, not stated as uncontrolled 250.00 ; Hyperlipidemia LDL goal < 100 272.4 ; Narcolepsy, with cataplexy 347.01 ; Shortness of breath 786.05 and Chest pain 786.50 [facility] [address], [place] [address]- 7201 Aug, [facility] [id number] [place] [address] 67591- 9927 Aug, [facility] [id number] [place] [address] 72510- 3770 Jun, [facility] [id number] [place] [address] 08401- 0200 Jun, [facility] [address] [address]29 Jun, [facility] [place] [facility] [address] [id number] [place] [address]- 0017 Jun, 2014 [facility] [place] [facility] [address] [id number] [place] [address] Jun, 2014 [facility] [place] [facility] [address] [id number] [place] [address] Jun, 2014 [facility] [place] [facility] [address] [id number] [place] [address] Jun, 2014 [facility] [place] [facility] [address] [id number] [place] [address] Jun, [facility] [place] [facility] [address] [id number] [place] [address] May, [facility] [place] [facility] [address] [id number] [place] [address] May, [facility] [place] [facility] [address] [id number] [place] [address] Apr, [facility] [place] [facility] [address] [id number] [place] [address] Apr, [facility] [place] [facility] [address] [id number] [place] [address] Mar, [facility] [place] [facility] [address] [id number] [place] [address] Mar, [facility] [place] [facility] [address] [id number], [place] [address] Mar, [facility] [place] [facility] [address] [id number] [place] [address] Mar, [facility] [place] [facility] [address] [id number] [place] [address] Nov, [facility] [place] [facility] [address] [id number] [place] [address] Nov, [facility] [place] [facility] [address] [id number], [place] [address] Nov, [facility] [place] [facility] [address] [id number] [place] [address] Nov, [facility] [place] [facility] [address] [id number] [place] [address] Oct, [facility] [place] [facility] [address] [id number] [place] [address] Oct, [facility] [place] [facility] [address] [id number] [place] [address] Oct, [facility] [place] [facility] [address] [id number] [place] [address] Oct, [facility] [place] [facility] [address] [id number] [place] [address] Oct, [facility] [place] [facility] [address] [id number] [place] [address] Oct, [facility] [place] [facility] [address] [id number] [place] [address]- [address] Oct, [facility] [place] [facility] [address] [id number] [place] [address] Oct, [facility] [place] [facility] [address] [id number] [place] [address] Oct, [facility] [place] [facility] [address] [id number] [place] [address] Oct, [facility] [place] [facility] [address] [id number] [address] September, [facility] [place] [facility] [address] [id number] [place] [address] September, [facility] [place] [facility] [address] [id number] [place] [address] Aug, [facility] [place] [facility] [address] [id number] [place] [address] Aug, [facility] [place] [facility] [address] [id number] [place] [address] Aug, [facility] [place] [facility] [address] [id number] [place] [address] Aug, [facility] [place] [facility] [address] [id number] [place] [address] Aug, [facility] [place] [facility] [address] [id number] [place] [address] Aug, [facility] [place] [facility] [address] [id number] [place] [address] Jul, [facility] [place] [facility] [address] [id number] [place] [address] Jul, [facility] [place] [facility] [address] [id number] [place] [address]- [address] Jul, [facility] [place] [facility] [address] [id number] [place] [address] Jul, [facility] [place] [facility] [address] [id number] [place] [address] Jul, [facility] [place] [facility] [address] [id number] [place] [address] Jul, [facility] [place] [facility] [address] [id number] [place] [address] Jul, [facility] [place] [facility] [address] [id number] [place] [address] Jul, [facility] [place] [facility] [address] [id number] [place] [address] Jul, [facility] [place] [facility] [address] [id number] [place] [address] Jul, [facility] [place] [facility] [address] [id number] [place] [address] Jul, [facility] [place] [facility] [address] [id number] [place] [address] Jul, [facility] [place] [facility] [address] [id number] [place] [address] 19 Jul, 2013 [facility] [place] [facility] [address] [id number] [place] [address] Jul, [facility] [place] [facility] [address] [id number] [place] [address] Jul, [facility] [place] [facility] [address] [id number] [place] [address] Jul, [facility] [place] [facility] [address] [id number] [place] [address] Jun, [facility] [place] [facility] [address] [id number] [place] [address] Jun, [facility] [place] [facility] [address] [id number] [place] [address] Jun, [facility] [place] [facility] [address] [id number] [place] [address] Jun, [facility] [place] [facility] [address] [id number] [place] [address] Jun, [facility] [place] [facility] [address] [facility] [id number] [place] [address] Jun, [facility] [place] [facility] [address] [id number] [place] [address] Jun, [facility] [place] [facility] [address] [id number] [place] [address] Jun, [facility] [place] [facility] [address] [id number] [place] [address] Jun, [facility] [place] [facility] [address] [id number] [place] [address] Jun, [facility] [place] [facility] [address] [facility] [id number] [place] [address] 18 Jun, 2013 [facility] [place] [facility] [address] [id number] [place] [address] 2541 18 Jun, 2013 [facility] [place] [facility] [address] [id number] [place] [address] 14 Jun, 2013 [facility] [place] [facility] [address] [id number] [place] [address] 13 Jun, 2013 [facility] [place] [facility] [address] [id number] [place] [address] 2546 13 Jun, 2013 [facility] [place] [facility] [address] [id number] [place] [address] 2549 13 Jun, 2013 [facility] [place] [facility] [address] [id number] [place] [address]- [address]69 13 Jun, 2013 [facility] [place] [facility] [address] [id number] [place] [address] 12 Jun, 2013 [facility] [place] [facility] [address] [id number] [place] [address] 12 Jun, 2013 [facility] [place] [facility] [address] [id number] [place] [address] Jun, [facility] [place] [facility] [address] [facility] [id number] [place] [address] Jun, [facility] [place] [facility] [address] [facility] [id number] [place] [address] 10 Jun, 2013 [facility] [place] [facility] [address] [id number] [place] [address]- [address] 07 Jun, 2013 [facility] [place] [facility] [address] [id number] [place] [address]- [address] 07 Jun, 2013 [facility] [place] [facility] [address] [id number] [place] [address]- [address] 06 Jun, 2013 [facility] [place] [facility] [address] [facility] [id number] [place] [address] 06 Jun, 2013 [facility] [place] [facility] [address] [id number] [place] [address] 06 Jun, 2013 [facility] [place] [facility] [address] [id number] [place] [address]- 2017 Jun, [facility] [place] [facility] [address] [id number] [place] [address] Jun, [facility] [place] [facility] [address] [id number] [place] [address] Jun, [facility] [place] [facility] [address] [id number] [place] [address] May, [facility] [place] [facility] [address] [id number] [place] [address] May, [facility] [place] [facility] [address] [id number] [place] [address] May, [facility] [place] [facility] [address] [id number] [place] [address] May, [facility] [place] [facility] [address] [id number] [place] [address] May, [facility] [place] [facility] [address] [id number] [place] [address] May, [facility] [place] [facility] [address] [id number] [place] [address] May, [facility] [place] [facility] [address] [id number] [place] [address]- [address] May, [facility] [place] [facility] [address] [id number] [place] [address]- 47[address] May, [facility] [place] [facility] [address] [id number] [place] [address]- 3787 May, [facility] [place] [facility] [address] [id number] [place] [address] May, [facility] [place] [facility] [address] [id number] [place] [address] May, [facility] [address] [id number] [address] May, [facility] [id number] [address] May, [facility] [id number] [address] May, [facility] [id number], [place] [address] Apr, [facility] [id number], [place] [address] Apr, [facility] [id number] [place] [address] Dec, [facility] [id number] [address] Nov, [facility] [id number] [place] [id number]- [address] May, [facility] [id number] [address] [address] Apr, [facility] [id number] [address] Apr, [facility] [id number] [address] Apr, [facility] [id number] [address] Apr, IMMUNIZATIONS No Known Immunizations SOCIAL HISTORY Never Assessed REASON FOR VISIT Hospital admit/DC PLAN OF CARE VITAL SIGNS MEDICATIONS Medication Instructions Dosage Frequency Start Date End Date Duration Status Proventil HFA 108 (90 Base) MCG/ACT Inhalation every 4 hrs 2 puffs as needed 4h Dec, Active Famotidine 20 mg Orally twice a day 1 tablet at bedtime 12h Active Pen Walton 32G X 4 MM as directed Dec, 90 days Active Levemir Flexpen 100 unit/mL (3 mL) subcutaneous 2 times a day 50 units 12h 24 Aug, 2013 Active Pravastatin Sodium 40 mg Orally Once a day 1 tablet 24h September, 90 days Active Test strips Test Strips Frank Contour test strips 2 times a day test blood sugar 12h Feb, Active NovoLog Flexpen 100 UNIT/ML Subcutaneous 3 times a day 25 units 8h 07 Dec, 2014 Active Carafate 1 GM Orally Twice a day 1 tablet at bedtime on an empty stomach before meals 12h Active Test strips Test Strips Contour teststrips directed 12h Dec, Active Gabapentin 300 MG Orally Three times a day 3 capsules 8h Mar, Active RESULTS No Results PROCEDURES No Known procedures INSTRUCTIONS MEDICATIONS ADMINISTERED No Known Medications MEDICAL (GENERAL) HISTORY Type Description Date Medical History asthma Medical History type II diabetes Medical History sleep apnea Medical History narcolepsy Surgical History hysterectomy Hospitalization History [facility] 02/27/17
--- OUTSIDE RECORDS SUMMARY | 2017-12-01 19:09 | XMS REPORT ---
Author Author TAWANA QUINTEN [facility] Address [address] [place] [address] Care Team Providers Care Sr. Operations Manager Name Role Phone TAWANA QUINTEN Unavailable PROBLEMS Type Condition ICD9-CM Code [id number] Code Onset Dates Condition Status SNOMED Code Problem Right carpal tunnel syndrome G56.01 Active 91730619 Problem Gastroesophageal reflux disease with esophagitis K21.0 Active 206816518 Problem Falls frequently R29.6 Active 299756594 Problem Porokeratosis Q82.8 Active 176593530 Problem Posterior subcapsular age-related cataract of both eyes H25.043 Active 8132076 Problem Non-alcoholic fatty liver disease K76.0 Active 929728275 Problem Delayed gastric emptying K30 Active 240765801 Problem Pain in left foot M79.672 Active 8994764 Problem Other chronic pain G89.29 Active 19264558 Problem Tarsal tunnel syndrome of left side G57.52 Active 29972764 Problem Obesity E66.9 Active 632703074 Problem Hypermetropia, bilateral H52.03 Active 60379404 Problem Type 2 diabetes mellitus with hyperglycemia E11.65 Active 85351920 Problem Nuclear cataract of both eyes H25.13 Active 99297099 Problem Presbyopia OU H52.4 Active 08519633 Problem Obstructive sleep apnea G47.33 Active 94907256 Problem Shortness of breath R06.02 Active 028214913 Problem Type 2 diabetes mellitus with diabetic polyneuropathy E11.42 Active 13989294 Problem Lung nodule R91.1 Active 725772656 Problem Mixed hyperlipidemia E78.2 Active 546355500 Problem Primary narcolepsy with cataplexy G47.411 Active 785107121 ALLERGIES No Information ENCOUNTERS Encounter Location Date Diagnosis [facility] [address] [facility] [id number] [address] Nov, [facility] [id number] [place] [address] 08041- 4173 September, [facility] [id number] [place] [address] 80180- 9201 September, Porokeratosis Q82.8 and Type 2 diabetes mellitus with diabetic polyneuropathy E11.42 [facility] [id number] [place] [address] 81727 -2571 Aug, Seasonal allergic rhinitis, unspecified trigger J30.2 [facility] [id number] [place] [address] 53744- 4875 Aug, [facility] [address] 66861- 8238 Aug, [facility] [address] [id number] Aug, Dental examination V72.2 and Dental examination Z01.20 [place] [address] 37566- 7475 Aug, Dental examination Z01.20 and Dental caries K02.9 [facility] [id number] [place] [address] 70308- 9420 Aug, Obstructive sleep apnea G47.33 ; Obesity E66.9 ; Type 2 diabetes mellitus with hyperglycemia E11.65 ; Palpitations R00.2 and Corns and callosities L84 [place] [id number] [place] [address] 80309- 9746 Jul, [facility] [id number] [place] [address] 66929- 0310 Jul, [facility] [id number] [place] [address] 61536- 8275 Jun, Type 2 diabetes mellitus with hyperglycemia E11.65 ; Colon cancer screening Z12.11 ; Mixed hyperlipidemia E78.2 ; Non-alcoholic fatty liver disease K76.0 ; Gastroesophageal reflux disease with esophagitis K21.0 and Pain of upper abdomen R10.10 [facility] [address] [place] [address] 6718 Jun, Falls frequently R29.6 [facility] [id number] [place] [address] 59206 -8589 May, Infection of nose J34.89 [facility] [id number] [place] [address] 15160- 8921 May, Bilateral low back pain without sciatica M54.5 [facility] [address] 68662- 2522 May, Type 2 diabetes mellitus with diabetic polyneuropathy E11.42 ; Obstructive sleep apnea G47.33 and Type 2 diabetes mellitus with hyperglycemia E11.65 [place] [address] 81789- 8688 Apr, Bilateral low back pain without sciatica M54.5 [place] [address] 79040- 1339 Apr, Mixed hyperlipidemia E78.2 and Type 2 diabetes mellitus with hyperglycemia E11.65 [place] [id number] [place] [address] 76143- 4473 Apr, Type 2 diabetes mellitus with diabetic polyneuropathy E11.42 [facility] [id number] [place] [address] 56620- 6992 Apr, [place] [address] 71819- 2095 Apr, Skin lesion of left arm L98.9 and Skin lesion of left leg L98.9 [place] [id number] [place] [address] 18297- 4972 Mar, Bilateral low back pain without sciatica M54.5 [facility] [id number] [place] [address] 06032- 5113 Mar, Plantar fasciitis of left foot M72.2 ; Bursitis of left foot M71.572 and Type 2 diabetes mellitus with diabetic polyneuropathy E11.42 [place] [id number] [place] [address] 54421- 5241 Feb, Non-alcoholic fatty liver disease K76.0 ; Keratoacanthoma L85.8 ; Seborrheic keratosis L82.1 ; Type 2 diabetes mellitus with hyperglycemia E11.65 and Nuclear cataract of both eyes H25.13 [facility] [address] [id number] Feb, [facility] [address] 16774- 1003 Feb, [place] [address] 07852- 1332 Feb, [place] [address] 68904- 6021 Feb, Type 2 diabetes mellitus with hyperglycemia E11.65 ; Back muscle spasm M62.830 and Encounter for immunization Z23 [facility] [address] 42506- 2491 Jan, Plantar fasciitis of left foot M72.2 [place] [address] 15587- 8551 Dec, [facility] [address] 15947- 1338 Dec, Plantar fasciitis of left foot M72.2 and Tarsal tunnel syndrome of left side G57.52 [facility] [id number] [place] [address] 11541- 4883 Dec, [facility] [address] 89283 -5041 Nov, Mary Jane rash of groin B37.89 and Rash and nonspecific skin eruption R21 [facility] [id number] [place] [address] 68095- 4015 Nov, [facility] [address] 96108- 2485 Oct, Type 2 diabetes mellitus with hyperglycemia E11.65 and Mixed hyperlipidemia E78.2 [place] [id number] [place] [address] 18541- 0819 Oct, [place] [id number] [place] [address] 67559- 0463 Oct, Chest pain, unspecified R07.9 ; Palpitations R00.2 ; Syncope R55 and Mixed hyperlipidemia E78.2 [place] [address] 51081- 5625 Oct, Plantar fasciitis, bilateral M72.2 and Type 1 diabetes mellitus with diabetic neuropathy E10.40 [place] [id number] [place] [address] 99518- 3035 Oct, [place] [id number] [place] [address] 94592- 6314 September, Type 2 diabetes mellitus with hyperglycemia E11.65 [place] [id number] [place] [address] 52012- 4996 September, Type 2 diabetes mellitus with hyperglycemia E11.65 ; Type 2 diabetes mellitus with diabetic polyneuropathy E11.42 ; Gastroesophageal reflux disease with esophagitis K21.0 and Headache, unspecified headache type R51 [place] [id number] [place] [address] 89599- 4424 September, [place] [id number] [place] [address] 59766- 9057 September, [facility] [id number] [place] [address] 37577- 7280 September, [place] [id number] [place] [address] 84993- 2814 September, Other chest pain R07.89 ; Heart palpitations R00.2 ; Mixed hyperlipidemia E78.2 and Obesity E66.9 [place] [id number] [place] [address] 64123- 1059 Aug, [place] [address] [address]- 8425 Aug, Type 2 diabetes mellitus with diabetic polyneuropathy E11.42 and Type 2 diabetes mellitus with hyperglycemia E11.65 [facility] [address] [place] [address]- 0517 Aug, [facility] [address] [address]- 7816 Aug, [facility] [address] [address]- 1307 Aug, [facility] [address] [address]- 4081 Aug, Type 2 diabetes mellitus with hyperglycemia E11.65 [facility] [address] [place] [address]- 9120 Aug, [facility] [address] [address]- 6867 Jul, Type 2 diabetes mellitus with diabetic polyneuropathy E11.42 [facility] [address] [place] [address]- 9065 Jul, Type 2 diabetes mellitus with hyperglycemia E11.65 [facility] [address] [address]- 3707 Jul, [facility] [address] [address]- 7963 Jul, [facility] [address] [address]- 9004 Jul, [facility] [address] [address]- 2201 Jul, Type 2 diabetes mellitus with diabetic polyneuropathy E11.42 and Type 2 diabetes mellitus with hyperglycemia E11.65 [facility] [address] [place] [id number] [place] [address]- 4520 Jun, Obstructive sleep apnea G47.33 [facility] [id number] [place] [address] 17413- 6394 Jun, Type 2 diabetes mellitus with diabetic polyneuropathy E11.42 ; Primary narcolepsy with cataplexy G47.411 ; Abdominal bloating R14.0 ; Other chest pain R07.89 and Vision problems H54.7 [facility] [id number] [place] [address] 11977- 6165 Jun, [facility] [id number] [place] [address] 40262- 1866 May, [facility] [id number] [place] [address] 92480- 8245 Apr, [facility] [id number] [place] [address] 56021- 6789 Apr, Plantar fasciitis of left foot M72.2 [facility] [address] 32309- 7772 Mar, [place] [id number] [place] [address] 07949- 9849 Mar, Plantar fasciitis of left foot M72.2 and Type 2 diabetes mellitus with diabetic polyneuropathy E11.42 [facility] [id number] [place] [address] 71705- 8445 Feb, Type 2 diabetes mellitus with hyperglycemia E11.65 ; Mixed hyperlipidemia E78.2 and Encounter for immunization Z23 [facility] [id number] [place] [address] 20621- 1642 Feb, [facility] [id number] [place] [address] 50652- 1939 Feb, [facility] [address] 86813- 5968 Feb, Type 2 diabetes mellitus with hyperglycemia E11.65 [facility] [id number] [place] [address] 59176- 1261 Feb, Type 2 diabetes mellitus with hyperglycemia E11.65 [facility] [address], [place] [address]- 3671 Jan, [facility] [id number] [place] [address] 14408- 9140 Dec, Pain in left foot M79.672 ; Other chronic pain G89.29 ; Type 2 diabetes mellitus with hyperglycemia E11.65 ; Obstructive sleep apnea G47.33 ; Falls frequently R29.6 ; Mixed hyperlipidemia E78.2 and Gastroesophageal reflux disease with esophagitis K21.0 [facility] [id number] [place] [address] 26321- 5958 Nov, [facility] [id number] [place] [address] 12156- 3102 Oct, Type 2 diabetes mellitus with diabetic polyneuropathy E11.42 [facility] [id number] [place] [address] 55303- 3690 Oct, [facility] [id number] [place] [address] 57505- 9961 Oct, [facility] [id number] [place] [address] 39378- 5958 September, [facility] [id number] [place] [address] 39766- 4554 September, [facility] [address] [address]- 4652 September, [facility] [id number] [address]- 9101 September, [facility] [address] [place] [address] 20586- 1158 September, [facility] [address] [place] [address] 49132- 1065 Aug, Type 2 diabetes mellitus with hyperglycemia E11.65 ; Mixed hyperlipidemia E78.2 and Right carpal tunnel syndrome G56.01 [facility] [id number] [address]- 9723 Aug, [facility] [address], [place] [address]- 3279 Jul, [facility] [address], [place] [address]- 9469 Jun, [facility] [id number] [place] [address] 46552- 0300 Jun, [facility] [id number] [place] [address] 29818- 6047 May, [facility] [id number] [place] [address] 75009- 4461 May, [facility] [id number] [place] [address] 28554- 0784 May, Type 2 diabetes mellitus with hyperglycemia E11.65 and Falls E888.9 [facility] [id number] [place] [address] 35641- 9884 Apr, Type 2 diabetes mellitus with hyperglycemia E11.65 [facility] [id number] [place] [address] 79360- 9825 Apr, [facility] [id number] [place] [address] 80850- 1810 Apr, Type 2 diabetes mellitus with hyperglycemia E11.65 [facility] [id number] [place] [address] 69095- 5552 Apr, [facility] [id number] [place] [address] 57810- 6162 Mar, Type 2 diabetes mellitus with diabetic polyneuropathy E11.42 ; Bilateral low back pain without sciatica M54.5 and Dry nose J34.89 [facility] [id number] [address]- 6243 Mar, Palpitations R00.2 ; Syncope R55 ; DM (diabetes mellitus) E11.9 and Obesity E66.9 [facility] [id number] [place] [address] 56344- 4414 Mar, [facility] [id number] [place] [address] 13353- 8269 Mar, [facility] [id number] [place] [address] 28587- 6070 Mar, [facility] [id number] [place] [address] 78210- 2203 Feb, [facility] [id number] [place] [address] 24910- 0127 Jan, [facility] [id number] [place] [address] 81543- 5450 Jan, [facility] [id number] [place] [address] 99251- 7749 Jan, Falls E888.9 and Sinusitis 473.9 [facility] [id number] [place] [address] 62562- 8770 Dec, [facility] [id number] [place] [address] 36829- 7123 Dec, [facility] [id number] [place] [address] 58634- 3572 Dec, [facility] [id number] [place] [address] 64642- 2259 Dec, [facility] [id number] [place] [address] 73504- 5563 Dec, Diabetes mellitus without mention of complication, type II or unspecified type, not stated as uncontrolled 250.00 and Shortness of breath 786.05 [facility] [id number] [place] [address] 08145- 4856 Dec, [facility] [id number] [place] [address] 32451- 0035 Nov, [facility] [id number] [place] [address] 47176- 2184 Nov, [facility] [address] [place] [address] 13417- 5943 Oct, Restrictive lung disease 518.89 [facility] [id number] [place] [address] 020156- 5018 Oct, [facility] [id number] [place] [address] 091522- 1056 Oct, Shortness of breath 786.05 [facility] [id number] [place] [address] 44541- 1726 September, Other nonspecific abnormal finding of lung field 793.19 ; Diabetes mellitus without mention of complication, type II or unspecified type, not stated as uncontrolled 250.00 ; Hyperlipidemia LDL goal < 100 272.4 ; Narcolepsy, with cataplexy 347.01 ; Shortness of breath 786.05 and Chest pain 786.50 [facility] [id number] [place] [address] 51863- 6911 Aug, [facility] [id number] [place] [address] 58639- 1448 Aug, [facility] [id number] [place] [address] 01098- 2811 Jun, [facility] [id number] [place] [address] 15502- 6735 Jun, [facility] [id number] [place] [address] 09517- 0678 Jun, [facility] [id number] [place] [address] 06006- 1258 Jun, [facility] [id number] [place] [address] 43204- 7939 Jun, [facility] [id number] [place] [address] 39028- 2093 Jun, [facility] [id number] [place] [address], [place] [address]- 1913 Jun, [facility] [place] [facility] [address] [id number] [place] [address]- 2288 Jun, [facility] [place] [facility] [address] [id number] [place] 3227 May, [facility] [place] [facility] [address] [id number] [place] [address]- 7406 May, [facility] [place] [facility] [address] [id number] [place] [address]- 3234 Apr, [facility] [place] [facility] [address] [id number] [place] [address]- 7672 Apr, [facility] [place] [facility] [address] [id number] [place] [address]- 3776 Mar, [facility] [place] [facility] [address] [id number] [place] [address]- 4182 Mar, [facility] [place] [facility] [address] [id number] [place] [address]- 6981 Mar, [facility] [place] [facility] [address] [id number] [place] [address]- 7417 Mar, [facility] [place] [facility] [address] [facility] [id number] [place] [address]- 9121 Nov, [facility] [place] [facility] [address] [id number] [place] [address]- 3409 Nov, [facility] [place] [facility] [address] [id number] [place] [address]- 0749 Nov, [facility] [place] [facility] [address] [id number] [place] [address]- 9775 Nov, [facility] [place] [facility] [address] [id number] [place] [address]- 6835 Oct, [facility] [place] [facility] [address] [id number] [place] 2036 Oct, [facility] [place] [facility] [address] [id number] [place] [address]- 8647 Oct, [facility] [place] [facility] [address] [id number] [place] [address]- 6114 Oct, [facility] [place] [facility] [address] [id number] [place] [address]- 4473 Oct, [facility] [place] [facility] [address] [id number] [place] [address]- 9469 Oct, [facility] [place] [facility] [address] [id number] [place] [address]- 0989 Oct, [facility] [place] [facility] [address] [id number] [place] [address]- 3930 Oct, [facility] [place] [facility] [address] [id number] [place] [address]- 3048 Oct, [facility] [place] [facility] [address] [id number] [place] [address]- 3642 Oct, [facility] [place] [facility] [address] [id number] [place] [address]- 7351 September, [facility] [place] [facility] [address] [id number] [place] [address]- 7401 September, [facility] [place] [facility] [address] [id number] [place] [address]- 0988 Aug, [facility] [place] [facility] [address] [id number] [place] [address]- 0247 Aug, [facility] [place] [facility] [address] [id number] [place] [address]- 2455 Aug, [facility] [place] [facility] [address] [id number] [place] [address]- 3723 Aug, [facility] [place] [facility] [address] [id number] [place] [address]- 3376 Aug, [facility] [place] [facility] [address] [id number] [place] [address]- 0382 Aug, [facility] [place] [facility] [address] [id number] [place] [address] Jul, [facility] [place] [facility] [address] [id number] [place] [address] Jul, [facility] [place] [facility] [address] [id number] [place] [address] Jul, [facility] [place] [facility] [address] [id number] [place] [address] Jul, [facility] [place] [facility] [address] [id number] [place] [address] Jul, [facility] [place] [facility] [address] [id number] [place] [address] Jul, [facility] [place] [facility] [address] [id number] [place] [address] Jul, [facility] [place] [facility] [address] [id number] [place] [address] Jul, [facility] [place] [facility] [address] [id number] [place] [address] Jul, [facility] [place] [facility] [address] [id number] [place] [address] Jul, [facility] [place] [facility] [address] [id number] [place] [address] Jul, [facility] [place] [facility] [address] [id number] [place] [address] 19 Jul, 2013 [facility] [place] [facility] [address] [id number] [place] [address] 19 Jul, 2013 [facility] [place] [facility] [address] [id number] [place] [address] 14 Jul, 2013 [facility] [place] [facility] [address] [id number] [place] [address] 14 Jul, 2013 [facility] [place] [facility] [address] [id number] [place] [address] Jul, [facility] [place] [facility] [address] [id number] [place] [address] Jun, [facility] [place] [facility] [address] [id number] [place] [address] Jun, [facility] [place] [facility] [address] [id number] [place] [address] Jun, [facility] [place] [facility] [address] [id number] [place] [address] Jun, [facility] [place] [facility] [address] [id number] [place] [address] Jun, [facility] [place] [facility] [address] [id number] [place] [address] Jun, [facility] [place] [facility] [address] [id number] [place] [address] Jun, [facility] [place] [facility] [address] [id number] [place] [address] Jun, [facility] [place] [facility] [address] [facility] [id number] [place] [address] Jun, [facility] [place] [facility] [address] [facility] [id number] [place] [address] Jun, [facility] [place] [facility] [address] [id number] [place] [address] Jun, [facility] [place] [facility] [address] [id number] [place] [address] Jun, [facility] [place] [facility] [address] [id number] [place] [address] 14 Jun, 2013 [facility] [place] [facility] [address] [id number] [place] [address] 13 Jun, 2013 [facility] [place] [facility] [address] [id number] [place] [address] 13 Jun, 2013 [facility] [place] [facility] [address] [id number] [place] [address] 13 Jun, 2013 [facility] [place] [facility] [address] [facility] [id number] [place] [address] 13 Jun, 2013 [facility] [place] [facility] [address] [facility] [id number] [place] [address] 12 Jun, 2013 [facility] [place] [facility] [address] [id number] [place] [address] 12 Jun, 2013 [facility] [place] [facility] [address] [facility] [id number] [place] [address] Jun, 2013 [facility] [place] [facility] [address] [facility] [id number] [place] [address] Jun, 2013 [facility] [place] [facility] [id number] [address] 10 Jun, 2013 [facility] [place] [facility] [address] [facility] [id number] [place] [address] 100[address] 07 Jun, 2013 [facility] [place] [facility] [address] [facility] [id number] [place] [address] 07 Jun, 2013 [facility] [place] [facility] [address] [facility] [id number] [place] [address] Jun, 2013 [facility] [place] [facility] [address] [facility] [id number], [place] [address] Jun, 2013 [facility] [place] [facility] [address] [facility] [id number] [place] [address] Jun, 2013 [facility] [place] [facility] [address] [facility] [id number] [place] [address] Jun, 2013 [facility] [place] [facility] [address] [facility] [id number] [place] [address]- [address] Jun, 2013 [facility] [place] [facility] [address] [facility] [id number], [place] [address] Jun, [facility] [address] [id number] [place] [address] May, [facility] [place] [facility] [address] [id number] [place] [address] May, [facility] [place] [facility] [address] [id number] [place] [address]- [address]141 May, [facility] [place] [facility] [address] [id number] [place] [address]- [address] May, [facility] [place] [facility] [address] [id number] [place] [address]- [address] May, [facility] [place] [facility] [address] [id number] [place] [address] May, [facility] [place] [facility] [address] [id number] [place] [address]- [address] May, [facility] [place] [facility] [address] [id number] [place] [address]- 8685 May, [facility] [place] [facility] [address] [id number] [place] [address]558 May, [facility] [place] [facility] [address] [id number] [place] [address] May, [facility] [place] [facility] [address] [id number] [place] [address]- 59[address] May, [facility] [place] [facility] [address] [id number], [place] [address] May, [facility] [place] [facility] [address] [id number] [place] [address] May, [facility] [place] [facility] [address] [id number] [place] [address] May, [facility] [place] [facility] [address] [id number] [place] [address] May, [facility] [place] [facility] [address] [id number], [place] [address] Apr, [facility] [id number], [place] [address] Apr, [facility] [id number], [place] [address] Dec, [facility] [address] [id number], [place] [address] Nov, [facility] [id number], [place] [address] May, [facility] [id number] [address] [address] Apr, [facility] [id number] [address] Apr, [facility] [id number], [place] [address] Apr, [facility] [address] [id number], [place] [address] Apr, IMMUNIZATIONS No Known Immunizations SOCIAL HISTORY Never Assessed REASON FOR VISIT PALS IN- Vero Dolan Needles PLAN OF CARE VITAL SIGNS MEDICATIONS Unknown Medications RESULTS No Results PROCEDURES No Known procedures INSTRUCTIONS MEDICATIONS ADMINISTERED No Known Medications MEDICAL (GENERAL) HISTORY Type Description Date Medical History asthma Medical History type II diabetes Medical History sleep apnea Medical History narcolepsy Surgical History hysterectomy Hospitalization History Chest pain-[facility] 02/27/17
--- OUTSIDE RECORDS SUMMARY | 2017-12-01 19:10 | XMS REPORT ---
Author Author TAWANA QUINTEN [facility] Address [address] [place] [address] Care Team Providers Care [employer] Manager Name Role Phone TAWANA QUINTEN Unavailable PROBLEMS Type Condition ICD9-CM Code JVI60-NM Code Onset Dates Condition Status SNOMED Code Problem Right carpal tunnel syndrome G56.01 Active 54097783 Problem Gastroesophageal reflux disease with esophagitis K21.0 Active 316820208 Problem Falls frequently R29.6 Active 299829997 Problem Porokeratosis Q82.8 Active 838148263 Problem Posterior subcapsular age-related cataract of both eyes H25.043 Active 9989175 Problem Non-alcoholic fatty liver disease K76.0 Active 512002042 Problem Delayed gastric emptying K30 Active 654166476 Problem Pain in left foot M79.672 Active 7921545 Problem Other chronic pain G89.29 Active 13467712 Problem Tarsal tunnel syndrome of left side G57.52 Active 84484621 Problem Obesity E66.9 Active 030032833 Problem Hypermetropia, bilateral H52.03 Active 39210413 Problem Type 2 diabetes mellitus with hyperglycemia E11.65 Active 43617460 Problem Nuclear cataract of both eyes H25.13 Active 43725801 Problem Presbyopia OU H52.4 Active 91489829 Problem Obstructive sleep apnea G47.33 Active 24199213 Problem Shortness of breath R06.02 Active 851976328 Problem Type 2 diabetes mellitus with diabetic polyneuropathy E11.42 Active 17319891 Problem Lung nodule R91.1 Active 924336907 Problem Mixed hyperlipidemia E78.2 Active 726544900 Problem Primary narcolepsy with cataplexy G47.411 Active 455604027 ALLERGIES No Information ENCOUNTERS Encounter Location Date Diagnosis [facility] [address] [facility] [id number] [address] Nov, [facility] [address] [place] [address] 92594- 9227 Oct, [facility] [id number] [place] [address] 85000- 6621 September, [facility] [id number] [place] [address] 12919- 4067 September, Type 2 diabetes mellitus with hyperglycemia E11.65 [facility] [address] 43877- 4860 September, Type 2 diabetes mellitus with hyperglycemia E11.65 [facility] [id number] [place] [address] 90300- 4338 September, Porokeratosis Q82.8 and Type 2 diabetes mellitus with diabetic polyneuropathy E11.42 [facility] [id number] [place] [address] 59948 -8833 Aug, Seasonal allergic rhinitis, unspecified trigger J30.2 [place] [address] 79570- 2739 Aug, [facility] [id number] [place] [address] 06694- 9038 Aug, [facility] [id number] [place] [address] [id number] Aug, Dental examination V72.2 and Dental examination Z01.20 [place] [id number] [place] [address] 33403- 6455 Aug, Dental examination Z01.20 and Dental caries K02.9 [facility] [id number] [place] [address] 38175- 7766 Aug, Obstructive sleep apnea G47.33 ; Obesity E66.9 ; Type 2 diabetes mellitus with hyperglycemia E11.65 ; Palpitations R00.2 and Corns and callosities L84 [facility] [id number] [place] [address] 35380- 9807 Jul, [facility] [address] 62958- 4636 Jul, [place] [id number] [place] [address] 28943- 7594 Jun, Type 2 diabetes mellitus with hyperglycemia E11.65 ; Colon cancer screening Z12.11 ; Mixed hyperlipidemia E78.2 ; Non-alcoholic fatty liver disease K76.0 ; Gastroesophageal reflux disease with esophagitis K21.0 and Pain of upper abdomen R10.10 [place] [id number] [place] [address] 60814- 0773 09 Jun, 2017 Falls frequently R29.6 [facility] [id number] [place] [address] 67766 -5558 May, Infection of nose J34.89 [place] [id number] [place] [address] 86338- 4212 May, Bilateral low back pain without sciatica M54.5 [place] [id number] [place] [address] 62573- 6975 May, Type 2 diabetes mellitus with diabetic polyneuropathy E11.42 ; Obstructive sleep apnea G47.33 and Type 2 diabetes mellitus with hyperglycemia E11.65 [place] [id number] [place] [address] 66728- 1322 Apr, Bilateral low back pain without sciatica M54.5 [place] [id number] [place] [address] 00623- 3344 Apr, Mixed hyperlipidemia E78.2 and Type 2 diabetes mellitus with hyperglycemia E11.65 [place] [id number] [place] [address] 11701- 7028 Apr, Type 2 diabetes mellitus with diabetic polyneuropathy E11.42 [place] [id number] [place] [address] 02132- 2149 Apr, [place] [id number] [place] [address] 93358- 8321 Apr, Skin lesion of left arm L98.9 and Skin lesion of left leg L98.9 [facility] [id number] [place] [address] 72730- 5955 Mar, Bilateral low back pain without sciatica M54.5 [facility] [id number] [place] [address] 67128- 4559 Mar, Plantar fasciitis of left foot M72.2 ; Bursitis of left foot M71.572 and Type 2 diabetes mellitus with diabetic polyneuropathy E11.42 [place] [address] 20441- 3947 Feb, Non-alcoholic fatty liver disease K76.0 ; Keratoacanthoma L85.8 ; Seborrheic keratosis L82.1 ; Type 2 diabetes mellitus with hyperglycemia E11.65 and Nuclear cataract of both eyes H25.13 [facility] [address] [id number] Feb, [place] [address] 24876- 1000 Feb, [facility] [address] 20213- 5638 Feb, [place] [address] 84303- 1662 Feb, Type 2 diabetes mellitus with hyperglycemia E11.65 ; Back muscle spasm M62.830 and Encounter for immunization Z23 [facility] [address] 94143- 4944 Jan, Plantar fasciitis of left foot M72.2 [facility] [id number] [place] [address] 10812- 2391 Dec, [facility] [address] 16409- 2215 Dec, Plantar fasciitis of left foot M72.2 and Tarsal tunnel syndrome of left side G57.52 [facility] [address] 43338- 6421 Dec, [facility] [address] [place] [address] 25255 -1409 Nov, Mary Jane rash of groin B37.89 and Rash and nonspecific skin eruption R21 [facility] [id number] [place] [address] 90103- 2635 Nov, [facility] [id number] [place] [address] 33363- 9647 Oct, Type 2 diabetes mellitus with hyperglycemia E11.65 and Mixed hyperlipidemia E78.2 [place] [id number] [place] [address] 24902- 2508 Oct, [facility] [address] 43899- 1365 Oct, Chest pain, unspecified R07.9 ; Palpitations R00.2 ; Syncope R55 and Mixed hyperlipidemia E78.2 [place] [id number] [place] [address] 31136- 4714 Oct, Plantar fasciitis, bilateral M72.2 and Type 1 diabetes mellitus with diabetic neuropathy E10.40 [place] [address] 87556- 1487 Oct, [place] [id number] [place] [address] 22366- 1574 September, Type 2 diabetes mellitus with hyperglycemia E11.65 [place] [id number] [place] [address] 33244- 3966 September, Type 2 diabetes mellitus with hyperglycemia E11.65 ; Type 2 diabetes mellitus with diabetic polyneuropathy E11.42 ; Gastroesophageal reflux disease with esophagitis K21.0 and Headache, unspecified headache type R51 [facility] [id number] [place] [address] 71227- 6025 September, [facility] [id number] [place] [address] 82595- 4650 September, [facility] [address] [place] [address]- 3414 September, [facility] [id number] [place] [address] 78617- 8982 September, Other chest pain R07.89 ; Heart palpitations R00.2 ; Mixed hyperlipidemia E78.2 and Obesity E66.9 [facility] [id number] [place] [address] 64593- 3763 Aug, [facility] [id number] [place] [address] 65100- 5066 Aug, Type 2 diabetes mellitus with diabetic polyneuropathy E11.42 and Type 2 diabetes mellitus with hyperglycemia E11.65 [facility] [id number] [place] [address] 75619- 0350 Aug, [facility] [id number] [place] [address] 68761- 2759 Aug, [facility] [id number] [place] [address] 88408- 3780 Aug, [facility] [id number] [place] [address] 76478- 5285 Aug, Type 2 diabetes mellitus with hyperglycemia E11.65 [facility] [address] [place] [address] 90032- 0538 Aug, [facility] [address] [place] [address] 45509- 7522 Jul, Type 2 diabetes mellitus with diabetic polyneuropathy E11.42 [facility] [address] [place] [address] 98372- 3899 Jul, Type 2 diabetes mellitus with hyperglycemia E11.65 [facility] [id number] [place] [address] 54567- 7513 Jul, [facility] [address] [place] [address] 84715- 6002 Jul, [facility] [id number] [place] [address] 89555- 7653 Jul, [place] [id number] [place] [address] 87656- 5173 Jul, Type 2 diabetes mellitus with diabetic polyneuropathy E11.42 and Type 2 diabetes mellitus with hyperglycemia E11.65 [place] [id number] [place] [address] 21351- 9247 Jun, Obstructive sleep apnea G47.33 [place] [address] 66120- 1837 Jun, Type 2 diabetes mellitus with diabetic polyneuropathy E11.42 ; Primary narcolepsy with cataplexy G47.411 ; Abdominal bloating R14.0 ; Other chest pain R07.89 and Vision problems H54.7 [place] [id number] [place] [address] 36016- 7774 Jun, [place] [address] 82655- 8505 May, [place] [id number] [place] [address] 22629- 6523 Apr, [place] [address] 64784- 6823 Apr, Plantar fasciitis of left foot M72.2 [place] [id number] [place] [address] 20858- 1682 Mar, [place] [address] 40588- 0515 Mar, Plantar fasciitis of left foot M72.2 and Type 2 diabetes mellitus with diabetic polyneuropathy E11.42 [place] [address] 26683- 7424 14 Feb, 2016 Type 2 diabetes mellitus with hyperglycemia E11.65 ; Mixed hyperlipidemia E78.2 and Encounter for immunization Z23 [place] [address] 90341- 9780 Feb, [facility] [address] [address]- 9672 Feb, [facility] [id number] [place] [address] 95355- 5401 Feb, Type 2 diabetes mellitus with hyperglycemia E11.65 [facility] [id number] [place] [address] 38346- 9681 Feb, Type 2 diabetes mellitus with hyperglycemia E11.65 [facility] [id number] [place] [address] 51904- 7979 Jan, [facility] [id number] [place] [address] 31703- 1736 Dec, Pain in left foot M79.672 ; Other chronic pain G89.29 ; Type 2 diabetes mellitus with hyperglycemia E11.65 ; Obstructive sleep apnea G47.33 ; Falls frequently R29.6 ; Mixed hyperlipidemia E78.2 and Gastroesophageal reflux disease with esophagitis K21.0 [facility] [address] [place] [address] 20641- 9766 Nov, [facility] [id number] [place] [address] 20066- 7031 Oct, Type 2 diabetes mellitus with diabetic polyneuropathy E11.42 [facility] [address] [place] [address] 25674- 7966 Oct, [facility] [address] [place] [address] 77524- 8382 Oct, [facility] [address] [address]- 0520 September, [facility] [id number] [place] [address] 74851- 7294 September, [facility] [address] [place] [address] 67912- 0726 September, [facility] [id number] [place] [address] 76975- 0618 September, [facility] [address] [address]- 5487 September, [facility] [id number] [place] [address] 39812- 2132 Aug, Type 2 diabetes mellitus with hyperglycemia E11.65 ; Mixed hyperlipidemia E78.2 and Right carpal tunnel syndrome G56.01 [facility] [id number] [place] [address] 75911- 9739 Aug, [facility] [address] [address]- 7539 Jul, [facility] [id number] [place] [address] 55959- 6321 Jun, [facility] [id number] [place] [address] 58120- 1397 Jun, [facility] [id number] [place] [address] 31971- 1284 May, [facility] [address] [address]- 9129 May, [facility] [address] [place] [address] 09555- 9604 May, Type 2 diabetes mellitus with hyperglycemia E11.65 and Falls E888.9 [facility] [address] [address]- 0012 Apr, Type 2 diabetes mellitus with hyperglycemia E11.65 [facility] [address] [address]- 5754 Apr, [facility] [address] [address]- 6116 Apr, Type 2 diabetes mellitus with hyperglycemia E11.65 [facility] [address] [address]- 5831 Apr, [facility] [id number] [place] [address] 59721- 8793 Mar, Type 2 diabetes mellitus with diabetic polyneuropathy E11.42 ; Bilateral low back pain without sciatica M54.5 and Dry nose J34.89 [facility] [id number] [place] [address] 54430- 1270 Mar, Palpitations R00.2 ; Syncope R55 ; DM (diabetes mellitus) E11.9 and Obesity E66.9 [facility] [address] 26221- 2395 Mar, [facility] [address] 15587- 0223 Mar, [facility] [address] 75239- 3263 Mar, [facility] [address] 85072- 0219 Feb, [facility] [address] 89901- 7146 Jan, [facility] [id number] [place] [address] 29978- 9348 Jan, [facility] [id number] [place] [address] 47796- 8030 Jan, Falls E888.9 and Sinusitis 473.9 [facility] [id number] [place] [address] 93888- 5248 Dec, [facility] [id number] [place] [address] 07298- 9664 Dec, [facility] [address] 72999- 2605 Dec, [facility] [id number] [place] [address] 71681- 3522 Dec, [facility] [address] 84944- 5694 Dec, Diabetes mellitus without mention of complication, type II or unspecified type, not stated as uncontrolled 250.00 and Shortness of breath 786.05 [facility] [id number] [place] [address] 24059- 2356 Dec, [facility] [id number] [place] [address] 56491- 0845 Nov, [facility] [id number] [place] [address] 58759- 8848 Nov, [facility] [id number] [place] [address] 33085- 4986 Oct, Restrictive lung disease 518.89 [place] [id number] [place] [address] 08731- 4193 Oct, [place] [id number] [place] [address] 15650- 0791 Oct, Shortness of breath 786.05 [facility] [id number] [place] [address] 93936- 0869 September, Other nonspecific abnormal finding of lung field 793.19 ; Diabetes mellitus without mention of complication, type II or unspecified type, not stated as uncontrolled 250.00 ; Hyperlipidemia LDL goal < 100 272.4 ; Narcolepsy, with cataplexy 347.01 ; Shortness of breath 786.05 and Chest pain 786.50 [place] [id number] [place] [address] 42490- 5262 Aug, [facility] [id number] [place] [address] 72875- 4971 Aug, [facility] [id number] [place] [address] 832593- 4029 Jun, [facility] [id number] [place] [address] 055313- 7944 Jun, [facility] [id number] [place] [address] 619130- 5148 Jun, [facility] [place] [facility] [address] [id number] [place] [address]- 2394 Jun, 2014 [facility] [place] [facility] [address] [id number] [place] [address]- 3663 Jun, 2014 [facility] [place] [facility] [address] [id number] [place] [address]- 3525 Jun, 2014 [facility] [place] [facility] [address] [id number] [place] [address]- 9228 Jun, 2014 [facility] [place] [facility] [address] [id number] [place] [address]- 2899 Jun, [facility] [place] [facility] [address] [id number] [place] [address]- 0665 May, [facility] [place] [facility] [address] [id number] [place] [address]- 6728 May, [facility] [place] [facility] [address] [id number] [place] [address]- 6239 Apr, [facility] [place] [facility] [address] [id number] [place] [address]- 0919 Apr, [facility] [place] [facility] [address] [id number] [place] [address]- 8577 Mar, [facility] [place] [facility] [address] [id number] [place] [address]- 5111 Mar, [facility] [place] [facility] [address] [id number] [place] [address]- 5783 Mar, [facility] [place] [facility] [address] [id number] [place] [address]- 9946 Mar, [facility] [place] [facility] [address] [id number] [place] [address]- 2184 Nov, [facility] [place] [facility] [address] [id number] [place] [address]- 7836 Nov, [facility] [place] [facility] [address] [id number] [place] [address]- 8770 Nov, [facility] [place] [facility] [address] [id number] [place] [address]- 9016 Nov, [facility] [place] [facility] [address] [id number] [place] [address]- 0766 Oct, [facility] [place] [facility] [address] [id number] [place] [address]- 9262 Oct, [facility] [place] [facility] [address] [id number] [place] [address]- 4412 Oct, [facility] [place] [facility] [address] [id number] [place] [address]- 6924 Oct, [facility] [place] [facility] [address] [id number] [place] [address]- 2596 Oct, [facility] [place] [facility] [address] [id number] [place] [address]- 6743 Oct, [facility] [place] [facility] [address] [id number] [place] [address]- 0612 Oct, [facility] [place] [facility] [address] [id number] [place] [address]- 6129 Oct, [facility] [place] [facility] [address] [id number] [place] [address]- 8830 Oct, [facility] [place] [facility] [address] [id number] [place] [address]- 7940 Oct, [facility] [place] [facility] [address] [id number] [place] [address]- 2235 September, [facility] [place] [facility] [address] [id number] [place] [address]- 2031 September, [facility] [place] [facility] [address] [id number] [place] [address]- 8446 Aug, [facility] [place] [facility] [address] [id number] [place] [address]- 9545 Aug, [facility] [place] [facility] [address] [id number] [place] [address]- 9906 Aug, [facility] [place] [facility] [address] [id number] [place] [address]- 9857 Aug, [facility] [place] [facility] [address] [id number] [place] [address]- 7552 Aug, [facility] [place] [facility] [address] [id number] [place] [address]- 5516 Aug, [facility] [place] [facility] [address] [id number] [place] [address]- 5208 Jul, [facility] [place] [facility] [address] [id number] [place] [address]- 1021 Jul, [facility] [place] [facility] [address] [id number] [place] [address] Jul, [facility] [place] [facility] [address] [id number] [place] [address] Jul, [facility] [place] [facility] [address] [id number] [place] [address] Jul, [facility] [place] [facility] [address] [id number] [place] [address] Jul, [facility] [place] [facility] [address] [id number] [place] [address] Jul, [facility] [place] [facility] [address] [id number] [place] [address] Jul, [facility] [place] [facility] [address] [id number] [place] [address] Jul, [facility] [place] [facility] [address] [id number] [place] [address] Jul, [facility] [place] [facility] [address] [id number] [place] [address] Jul, [facility] [place] [facility] [address] [id number] [place] [address] 19 Jul, 2013 [facility] [place] [facility] [address] [id number] [place] [address] 19 Jul, 2013 [facility] [place] [facility] [address] [id number] [place] [address] Jul, [facility] [place] [facility] [address] [facility] [id number] [place] [address] Jul, [facility] [place] [facility] [address] [id number] [place] [address] Jul, [facility] [place] [facility] [address] [id number] [place] [address] Jun, [facility] [place] [facility] [address] [facility] [id number] [place] [address] Jun, [facility] [place] [facility] [address] [facility] [id number] [place] [address] Jun, [facility] [place] [facility] [address] [id number] [place] [address] Jun, [facility] [place] [facility] [address] [facility] [id number] [place] [address] Jun, [facility] [place] [facility] [address] [facility] [id number] [place] [address] Jun, [facility] [place] [facility] [address] [facility] [id number] [place] [address] Jun, [facility] [place] [facility] [address] [facility] [id number] [place] [address] Jun, [facility] [place] [facility] [address] [id number] [place] [address] Jun, [facility] [place] [facility] [address] [facility] [id number] [address] Jun, [facility] [place] [facility] [address] [facility] [id number], [place] [address] 18 Jun, 2013 [facility] [place] [facility] [address] [id number] [place] [address] 18 Jun, 2013 [facility] [place] [facility] [address] [id number] [place] [address]- 2856 14 Jun, 2013 [facility] [place] [facility] [address] [id number] [place] [address] 13 Jun, 2013 [facility] [place] [facility] [address] [id number] [place] [address] Jun, [facility] [place] [facility] [address] [id number] [place] [address] Jun, [facility] [place] [facility] [address] [id number] [place] [address] Jun, [facility] [place] [facility] [address] [facility] [id number] [place] [address] 12 Jun, 2013 [facility] [place] [facility] [address] [id number] [place] [address] Jun, [facility] [place] [facility] [address] [facility] [id number] [place] [address] Jun, [facility] [place] [facility] [address] [facility] [id number] [place] [address] Jun, [facility] [place] [facility] [address] [facility] [id number] [place] [address] 10 Jun, 2013 [facility] [place] [facility] [address] [facility] [id number] [place] [address] 07 Jun, 2013 [facility] [place] [facility] [address] [facility] [id number] [place] [address] 07 Jun, 2013 [facility] [place] [facility] [address] [facility] [id number] [place] [address] 06 Jun, 2013 [facility] [place] [facility] [address] [facility] [id number] [place] [address] 06 Jun, 2013 [facility] [place] [facility] [address] [id number] [place] [address] Jun, [facility] [place] [facility] [address] [id number] [place] [address] Jun, [facility] [place] [facility] [address] [id number] [place] [address] Jun, [facility] [place] [facility] [address] [id number] [place] [address] Jun, [facility] [place] [facility] [address] [id number] [place] [address] May, [facility] [place] [facility] [address] [id number] [place] [address] May, [facility] [place] [facility] [address] [id number] [place] [address] May, [facility] [place] [facility] [address] [id number] [place] [address] May, [facility] [place] [facility] [address] [id number] [place] [address] May, [facility] [place] [facility] [address] [id number] [place] [address] May, [facility] [place] [facility] [address] [id number] [place] [address] May, [facility] [place] [facility] [address] [id number] [place] [address] May, [facility] [place] [facility] [address] [id number] [place] [address] May, [facility] [place] [facility] [address] [id number] [place] [address] May, [facility] [place] [facility] [address] [id number] [place] [address] May, [facility] [place] [facility] [address] [id number], [place] [address] May, [facility] [address] [id number] [address] May, [facility] [address] [facility] [id number], [place] [address] May, [facility] [id number], [place] [address] May, [facility] [address] [facility] [id number], [place] [address] Apr, [facility] [address] [facility] [id number], [place] [address] Apr, [facility] [id number], [place] [address] Dec, [facility] [id number], [place] [address] Nov, [facility] [id number], [place] [address] May, [facility] [id number] [address] Apr, [facility] [id number], [place] [address] Apr, [facility] [address] [id number], [place] [address] Apr, [facility] [address] [id number], [place] [address] Apr, IMMUNIZATIONS No Known Immunizations SOCIAL HISTORY Never Assessed REASON FOR VISIT refill request PLAN OF CARE VITAL SIGNS MEDICATIONS Medication Instructions Dosage Frequency Start Date End Date Duration Status Gabapentin 300 MG Orally Three times a day 3 capsules 8h 20 Mar, 2015 30 days Active Famotidine 20 mg Orally twice a day 1 tablet at bedtime 12h 90 days Active Carafate 1 GM Orally Twice a day 1 tablet at bedtime on an empty stomach before meals 12h 90 days Active RESULTS No Results PROCEDURES No Known procedures INSTRUCTIONS MEDICATIONS ADMINISTERED No Known Medications MEDICAL (GENERAL) HISTORY Type Description Date Medical History asthma Medical History type II diabetes Medical History sleep apnea Medical History narcolepsy Surgical History hysterectomy Hospitalization History Chest pain-[facility] 02/27/17
--- OUTSIDE RECORDS SUMMARY | 2017-12-01 19:10 | XMS REPORT ---
Author Author QUINTEN GILLIAM Organization [facility] Address [address] [place] [address] Care Team Providers Care Supervisor Car Installations Name Role Phone QUINTEN GILLIAM Unavailable PROBLEMS Type Condition ICD9-CM Code [id number] Code Onset Dates Condition Status SNOMED Code Problem Primary narcolepsy with cataplexy G47.411 Active 220872294 Problem Falls frequently R29.6 Active 313574077 Problem Right carpal tunnel syndrome G56.01 Active 13188214 Problem Non-alcoholic fatty liver disease K76.0 Active 616549661 Problem Posterior subcapsular age-related cataract of both eyes H25.043 Active 3026631 Problem Tarsal tunnel syndrome of left side G57.52 Active 51098062 Problem Other chronic pain G89.29 Active 13565901 Problem Gastroesophageal reflux disease with esophagitis K21.0 Active 127012002 Problem Obesity E66.9 Active 997620815 Problem Pain in left foot M79.672 Active 3335287 Problem Delayed gastric emptying K30 Active 633859410 Problem Hypermetropia, bilateral H52.03 Active 30205193 Problem Nuclear cataract of both eyes H25.13 Active 11083077 Problem Presbyopia OU H52.4 Active 03074981 Problem Mixed hyperlipidemia E78.2 Active 147283421 Problem Obstructive sleep apnea G47.33 Active 95305401 Problem Type 2 diabetes mellitus with hyperglycemia E11.65 Active 82544356 Problem Shortness of breath R06.02 Active 959795262 Problem Type 2 diabetes mellitus with diabetic polyneuropathy E11.42 Active 88244257 Problem Lung nodule R91.1 Active [id number] ALLERGIES No Information SOCIAL HISTORY Never Assessed PLAN OF CARE VITAL SIGNS MEDICATIONS Medication Instructions Dosage Frequency Start Date End Date Duration Status Lantus SoloStar 100 UNIT/ML Subcutaneous 2 times a day 45 units 12h 10 September Active RESULTS No Results PROCEDURES No Known procedures IMMUNIZATIONS No Known Immunizations MEDICAL (GENERAL) HISTORY Type Description Date Medical History asthma Medical History type II diabetes Surgical History hysterectomy Hospitalization History Chest pain-[facility] 02/27/17
--- OUTSIDE RECORDS SUMMARY | 2017-12-01 19:11 | XMS REPORT ---
Author Author TAWANA QUINTEN [facility] Address [address] [place] [address] Care Team Providers Care Restaurant Assistant Name Role Phone TAWANA QUINTEN Unavailable PROBLEMS Type Condition ICD9-CM Code [id number] Code Onset Dates Condition Status SNOMED Code Problem Right carpal tunnel syndrome G56.01 Active 46445727 Problem Gastroesophageal reflux disease with esophagitis K21.0 Active 147120256 Problem Falls frequently R29.6 Active 633857536 Problem Porokeratosis Q82.8 Active 178631890 Problem Posterior subcapsular age-related cataract of both eyes H25.043 Active 2167994 Problem Non-alcoholic fatty liver disease K76.0 Active 339984417 Problem Delayed gastric emptying K30 Active 495599983 Problem Pain in left foot M79.672 Active 3178055 Problem Other chronic pain G89.29 Active 35986508 Problem Tarsal tunnel syndrome of left side G57.52 Active 67996562 Problem Obesity E66.9 Active 597101611 Problem Hypermetropia, bilateral H52.03 Active 07708992 Problem Type 2 diabetes mellitus with hyperglycemia E11.65 Active 67526338 Problem Nuclear cataract of both eyes H25.13 Active 46745792 Problem Presbyopia OU H52.4 Active 90194303 Problem Obstructive sleep apnea G47.33 Active 86681323 Problem Shortness of breath R06.02 Active 475283721 Problem Type 2 diabetes mellitus with diabetic polyneuropathy E11.42 Active 22777718 Problem Lung nodule R91.1 Active 773594230 Problem Mixed hyperlipidemia E78.2 Active 838398196 Problem Primary narcolepsy with cataplexy G47.411 Active [id number] ALLERGIES No Information ENCOUNTERS Encounter Location Date Diagnosis [facility] [address] [facility] [id number] [address] Nov, [facility] [id number] [place] [address] 40159- 2665 Oct, [facility] [id number] [place] [address] 85886- 1177 September, [facility] [id number] [place] [address] 01498- 6206 September, Type 2 diabetes mellitus with hyperglycemia E11.65 [facility] [address] 98992- 9308 September, Type 2 diabetes mellitus with hyperglycemia E11.65 [facility] [id number] [place] [address] 63297- 6901 September, Porokeratosis Q82.8 and Type 2 diabetes mellitus with diabetic polyneuropathy E11.42 [facility] [id number] [place] [address] 25687 -8209 Aug, Seasonal allergic rhinitis, unspecified trigger J30.2 [place] [address] 49679- 9445 Aug, [facility] [id number] [place] [address] 46969- 6690 Aug, [facility] [place] [facility] [id number] [place] [address] [id number] Aug, Dental examination V72.2 and Dental examination Z01.20 [place] [id number] [place] [address] 05755- 8662 Aug, Dental examination Z01.20 and Dental caries K02.9 [facility] [id number] [place] [address] 01541- 5017 Aug, Obstructive sleep apnea G47.33 ; Obesity E66.9 ; Type 2 diabetes mellitus with hyperglycemia E11.65 ; Palpitations R00.2 and Corns and callosities L84 [facility] [id number] [place] [address] 79638- 6903 Jul, [facility] [address] 94702- 0577 Jul, [facility] [id number] [place] [address] 62433- 0483 Jun, Type 2 diabetes mellitus with hyperglycemia E11.65 ; Colon cancer screening Z12.11 ; Mixed hyperlipidemia E78.2 ; Non-alcoholic fatty liver disease K76.0 ; Gastroesophageal reflux disease with esophagitis K21.0 and Pain of upper abdomen R10.10 [place] [id number] [place] [address] 44473- 4061 09 Jun, 2017 Falls frequently R29.6 [facility] [id number] [place] [address] 71140 -4136 May, Infection of nose J34.89 [place] [id number] [place] [address] 32989- 1216 May, Bilateral low back pain without sciatica M54.5 [place] [id number] [place] [address] 50196- 3884 May, Type 2 diabetes mellitus with diabetic polyneuropathy E11.42 ; Obstructive sleep apnea G47.33 and Type 2 diabetes mellitus with hyperglycemia E11.65 [facility] [id number] [place] [address] 47099- 7895 Apr, Bilateral low back pain without sciatica M54.5 [place] [id number] [place] [address] 31673- 1397 Apr, Mixed hyperlipidemia E78.2 and Type 2 diabetes mellitus with hyperglycemia E11.65 [facility] [place] [id number] [place] [address] 65280- 7999 Apr, Type 2 diabetes mellitus with diabetic polyneuropathy E11.42 [facility] [id number] [place] [address] 50706- 3385 Apr, [facility] [place] [id number] [place] [address] 02609- 6713 Apr, Skin lesion of left arm L98.9 and Skin lesion of left leg L98.9 [facility] [id number] [place] [address] 44143- 1535 Mar, Bilateral low back pain without sciatica M54.5 [facility] [id number] [place] [address] 70674- 9263 Mar, Plantar fasciitis of left foot M72.2 ; Bursitis of left foot M71.572 and Type 2 diabetes mellitus with diabetic polyneuropathy E11.42 [place] [address] 60290- 8523 Feb, Non-alcoholic fatty liver disease K76.0 ; Keratoacanthoma L85.8 ; Seborrheic keratosis L82.1 ; Type 2 diabetes mellitus with hyperglycemia E11.65 and Nuclear cataract of both eyes H25.13 [facility] [address] [id number] Feb, [place] [address] 05817- 0520 Feb, [facility] [address] 92141- 2754 Feb, [place] [address] 92697- 0406 Feb, Type 2 diabetes mellitus with hyperglycemia E11.65 ; Back muscle spasm M62.830 and Encounter for immunization Z23 [facility] [address] 28551- 2062 Jan, Plantar fasciitis of left foot M72.2 [facility] [id number] [place] [address] 32575- 2643 Dec, [facility] [address] 29325- 6689 Dec, Plantar fasciitis of left foot M72.2 and Tarsal tunnel syndrome of left side G57.52 [facility] [address] 27529- 2934 Dec, [facility] [id number] [place] [address] 83748 -3440 Nov, Mary Jane rash of groin B37.89 and Rash and nonspecific skin eruption R21 [facility] [id number] [place] [address] 18847- 7644 Nov, [facility] [id number] [place] [address] 88995- 4524 Oct, Type 2 diabetes mellitus with hyperglycemia E11.65 and Mixed hyperlipidemia E78.2 [place] [id number] [place] [address] 51795- 5912 Oct, [facility] [address] 54334- 9166 Oct, Chest pain, unspecified R07.9 ; Palpitations R00.2 ; Syncope R55 and Mixed hyperlipidemia E78.2 [place] [id number] [place] [address] 13650- 0302 Oct, Plantar fasciitis, bilateral M72.2 and Type 1 diabetes mellitus with diabetic neuropathy E10.40 [place] [address] 29032- 4785 Oct, [facility] [id number] [place] [address] 46452- 9237 September, Type 2 diabetes mellitus with hyperglycemia E11.65 [facility] [id number] [place] [address] 77362- 1558 September, Type 2 diabetes mellitus with hyperglycemia E11.65 ; Type 2 diabetes mellitus with diabetic polyneuropathy E11.42 ; Gastroesophageal reflux disease with esophagitis K21.0 and Headache, unspecified headache type R51 [facility] [id number] [place] [address] 70505- 1410 September, [facility] [id number] [place] [address] 64517- 3009 September, [facility] [address] [place] [address]- 8374 September, [facility] [id number] [place] [address] 38313- 7635 September, Other chest pain R07.89 ; Heart palpitations R00.2 ; Mixed hyperlipidemia E78.2 and Obesity E66.9 [facility] [id number] [place] [address] 57680- 1048 Aug, [facility] [id number] [place] [address] 24051- 8481 Aug, Type 2 diabetes mellitus with diabetic polyneuropathy E11.42 and Type 2 diabetes mellitus with hyperglycemia E11.65 [facility] [id number] [place] [address] 22418- 9973 Aug, [facility] [id number] [place] [address] 36473- 0272 Aug, [facility] [id number] [place] [address] 85009- 3887 Aug, [facility] [id number] [place] [address] 17979- 5462 Aug, Type 2 diabetes mellitus with hyperglycemia E11.65 [facility] [id number] [place] [address] 74249- 2878 Aug, [facility] [id number] [place] [address] 61056- 8502 Jul, Type 2 diabetes mellitus with diabetic polyneuropathy E11.42 [facility] [id number] [place] [address] 07941- 8766 Jul, Type 2 diabetes mellitus with hyperglycemia E11.65 [facility] [id number] [place] [address] 19887- 5613 Jul, [facility] [id number] [place] [address] 34203- 5855 Jul, [facility] [id number] [place] [address] 50252- 3066 Jul, [place] [id number] [place] [address] 48995- 1270 Jul, Type 2 diabetes mellitus with diabetic polyneuropathy E11.42 and Type 2 diabetes mellitus with hyperglycemia E11.65 [place] [id number] [place] [address] 10413- 0257 Jun, Obstructive sleep apnea G47.33 [place] [address] 33525- 6269 Jun, Type 2 diabetes mellitus with diabetic polyneuropathy E11.42 ; Primary narcolepsy with cataplexy G47.411 ; Abdominal bloating R14.0 ; Other chest pain R07.89 and Vision problems H54.7 [place] [id number] [place] [address] 23663- 6117 Jun, [place] [address] 79117- 3077 May, [place] [id number] [place] [address] 90551- 3713 Apr, [place] [address] 94386- 6105 Apr, Plantar fasciitis of left foot M72.2 [place] [id number] [place] [address] 27881- 2297 Mar, [place] [address] 02246- 1128 Mar, Plantar fasciitis of left foot M72.2 and Type 2 diabetes mellitus with diabetic polyneuropathy E11.42 [place] [address] 92002- 4118 14 Feb, 2016 Type 2 diabetes mellitus with hyperglycemia E11.65 ; Mixed hyperlipidemia E78.2 and Encounter for immunization Z23 [place] [address] 79133- 3835 Feb, [facility] [address] [address]- 7461 Feb, [facility] [id number] [place] [address] 37943- 3540 Feb, Type 2 diabetes mellitus with hyperglycemia E11.65 [facility] [id number] [place] [address] 47933- 8676 Feb, Type 2 diabetes mellitus with hyperglycemia E11.65 [facility] [id number] [place] [address] 27396- 6484 Jan, [facility] [id number] [place] [address] 38553- 6847 Dec, Pain in left foot M79.672 ; Other chronic pain G89.29 ; Type 2 diabetes mellitus with hyperglycemia E11.65 ; Obstructive sleep apnea G47.33 ; Falls frequently R29.6 ; Mixed hyperlipidemia E78.2 and Gastroesophageal reflux disease with esophagitis K21.0 [facility] [id number] [place] [address] 85631- 7154 Nov, [facility] [id number] [place] [address] 97668- 4383 Oct, Type 2 diabetes mellitus with diabetic polyneuropathy E11.42 [facility] [id number] [place] [address] 79432- 2433 Oct, [facility] [id number] [place] [address] 72281- 8200 Oct, [facility] [address] [address]- 9449 September, [facility] [id number] [place] [address] 85197- 9207 September, [facility] [id number] [place] [address] 21351- 1658 September, [facility] [id number] [place] [address] 05489- 0172 September, [facility] [address] [address]- 6249 September, [facility] [id number] [place] [address] 60392- 0901 Aug, Type 2 diabetes mellitus with hyperglycemia E11.65 ; Mixed hyperlipidemia E78.2 and Right carpal tunnel syndrome G56.01 [facility] [id number] [place] [address] 74074- 1877 Aug, [facility] [address] [address]- 0048 Jul, [facility] [id number] [place] [address] 65003- 1345 Jun, [facility] [id number] [place] [address] 22513- 6392 Jun, [facility] [id number] [place] [address] 38891- 9412 May, [facility] [address], [place] [address]- 8205 May, [facility] [id number] [place] [address] 66809- 2332 May, Type 2 diabetes mellitus with hyperglycemia E11.65 and Falls E888.9 [facility] [address] [address]- 3303 Apr, Type 2 diabetes mellitus with hyperglycemia E11.65 [facility] [address] [address]- 6118 Apr, [facility] [address] [address]- 1475 Apr, Type 2 diabetes mellitus with hyperglycemia E11.65 [facility] [address] [address]- 0124 Apr, [facility] [id number] [place] [address] 48560- 3853 Mar, Type 2 diabetes mellitus with diabetic polyneuropathy E11.42 ; Bilateral low back pain without sciatica M54.5 and Dry nose J34.89 [facility] [id number] [place] [address] 41725- 9303 Mar, Palpitations R00.2 ; Syncope R55 ; DM (diabetes mellitus) E11.9 and Obesity E66.9 [facility] [address] 90208- 6235 Mar, [facility] [address] 59432- 4278 Mar, [facility] [address] 02294- 1904 Mar, [facility] [address] 78241- 7774 Feb, [facility] [address] 58438- 2739 Jan, [facility] [id number] [place] [address] 37952- 8781 Jan, [facility] [id number] [place] [address] 40675- 2316 Jan, Falls E888.9 and Sinusitis 473.9 [facility] [id number] [place] [address] 15658- 3198 Dec, [facility] [id number] [place] [address] 24978- 6931 Dec, [facility] [address] 30746- 6556 Dec, [facility] [id number] [place] [address] 14400- 6080 Dec, [facility] [address] 62946- 8784 Dec, Diabetes mellitus without mention of complication, type II or unspecified type, not stated as uncontrolled 250.00 and Shortness of breath 786.05 [facility] [id number] [place] [address] 25967- 5925 Dec, [facility] [id number] [place] [address] 46802- 0869 Nov, [facility] [id number] [place] [address] 28642- 2965 Nov, [facility] [id number] [place] [address] 20616- 6673 Oct, Restrictive lung disease 518.89 [place] [id number] [place] [address] 14328- 0281 Oct, [place] [id number] [place] [address] 35180- 5492 Oct, Shortness of breath 786.05 [facility] [id number] [place] [address] 28764- 6065 September, Other nonspecific abnormal finding of lung field 793.19 ; Diabetes mellitus without mention of complication, type II or unspecified type, not stated as uncontrolled 250.00 ; Hyperlipidemia LDL goal < 100 272.4 ; Narcolepsy, with cataplexy 347.01 ; Shortness of breath 786.05 and Chest pain 786.50 [place] [id number] [place] [address] 15777- 9138 Aug, [facility] [id number] [place] [address] 97226- 8036 Aug, [facility] [id number] [place] [address] 735761- 8637 Jun, [facility] [id number] [place] [address] 901356- 9066 Jun, [facility] [id number] [place] [address] 175594- 9979 Jun, [facility] [place] [facility] [address] [id number] [place] [address]- 0868 Jun, 2014 [facility] [place] [facility] [address] [id number] [place] [address]- 6564 Jun, 2014 [facility] [place] [facility] [address] [id number] [place] [address]- 7183 Jun, 2014 [facility] [place] [facility] [address] [id number] [place] [address]- 9995 Jun, 2014 [facility] [place] [facility] [address] [id number] [place] [address]- 2241 Jun, [facility] [place] [facility] [address] [id number] [place] [address]- 6749 May, [facility] [place] [facility] [address] [id number] [place] [address]- 8935 May, [facility] [place] [facility] [address] [id number] [place] [address]- 0157 Apr, [facility] [place] [facility] [address] [id number] [place] [address]- 4204 Apr, [facility] [place] [facility] [address] [id number] [place] [address] Mar, [facility] [place] [facility] [address] [id number] [place] [address] Mar, [facility] [place] [facility] [address] [id number] [place] [address] Mar, [facility] [place] [facility] [address] [id number] [place] [address] Mar, [facility] [place] [facility] [address] [id number] [place] [address] Nov, [facility] [place] [facility] [address] [id number] [place] [address] Nov, [facility] [place] [facility] [address] [id number] [place] [address] Nov, [facility] [place] [facility] [address] [id number] [place] [address] Nov, [facility] [place] [facility] [address] [id number] [place] [address] Oct, [facility] [place] [facility] [address] [id number] [place] [address] Oct, [facility] [place] [facility] [address] [id number] [place] [address] Oct, [facility] [place] [facility] [address] [id number] [place] [address] Oct, [facility] [place] [facility] [address] [id number] [place] [address] Oct, [facility] [place] [facility] [address] [id number] [place] [address] Oct, [facility] [facility] [address] [id number] [place] [address] Oct, [facility] [place] [facility] [address] [id number] [place] [address] Oct, [facility] [place] [facility] [address] [id number] [place] [address] Oct, [facility] [place] [facility] [address] [id number] [place] [address] Oct, [facility] [place] [facility] [address] [id number] [place] [address] September, [facility] [place] [facility] [address] [id number] [place] [address] September, [facility] [place] [facility] [address] [id number] [place] [address] Aug, [facility] [place] [facility] [address] [id number] [place] [address] Aug, [facility] [place] [facility] [address] [id number] [place] [address] Aug, [facility] [place] [facility] [address] [id number] [place] [address] Aug, [facility] [place] [facility] [address] [id number] [place] [address] Aug, [facility] [place] [facility] [address] [id number] [place] [address] Aug, [facility] [place] [facility] [address] [id number] [place] [address] Jul, [facility] [place] [facility] [address] [id number] [place] [address] Jul, [facility] [place] [facility] [address] [id number] [place] [address] Jul, [facility] [place] [facility] [address] [id number] [place] [address]- [address] Jul, [facility] [place] [address] [id number] [place] [address] Jul, [facility] [place] [facility] [address] [id number] [place] [address] 16[address] Jul, [facility] [place] [facility] [address] [id number] [place] [address] Jul, [facility] [place] [facility] [address] [id number] [place] [address] Jul, [facility] [place] [facility] [address] [id number] [place] [address] Jul, [facility] [place] [facility] [address] [id number] [place] [address] Jul, [facility] [address] [id number] [place] [address] Jul, [facility] [place] [address] [id number] [place] [address]- [address] 19 Jul, 2013 [facility] [facility] [address] [id number] [place] [address]- [address] 19 Jul, 2013 [facility] [facility] [address] [id number] [place] [address] Jul, [facility] [address] [facility] [id number] [place] [address]- [address] Jul, [facility] [place] [facility] [address] [id number] [place] [address] Jul, [facility] [place] [address] [id number] [place] [address] Jun, [facility] [address] [facility] [id number] [place] [address] Jun, [facility] [address] [facility] [id number] [place] [address]- [address] Jun, [facility] [address] [id number] [place] [address] Jun, [facility] [address] [facility] [id number] [place] [address]- [address] Jun, [facility] [address] [facility] [id number] [place] [address] Jun, [facility] [facility] [address] [facility] [id number] [place] [address] Jun, [facility] [address] [facility] [id number] [place] [address] Jun, [facility] [address] [id number] [place] [address]- [address] Jun, [facility] [address] [facility] [id number], [place] [address] Jun, [facility] [address] [facility] [id number], [place] [address] 18 Jun, 2013 [facility] [address] [id number] [place] [address]- [address] 18 Jun, 2013 [facility] [address] [id number] [place] [address]- [address]16 14 Jun, 2013 [facility] [address] [id number] [place] [address]- [address] 13 Jun, 2013 [facility] [address] [id number] [place] [address]- [address] Jun, [facility] [address] [id number] [place] [address]- [address] Jun, [facility] [address] [id number] [place] [address]- 3541 Jun, [facility] [address] [facility] [id number] [place] [address]- [address] 12 Jun, 2013 [facility] [address] [id number] [place] [address]- 1400 Jun, [facility] [address] [facility] [id number] [place] [address]- 4969 Jun, [facility] [address] [facility] [id number] [place] [address]- 366[address] Jun, [facility] [address] [facility] [id number] [place] [address]- 1141 10 Jun, 2013 [facility] [address] [facility] [id number] [place] [address]- 8080 07 Jun, 2013 [facility] [address] [facility] [id number] [place] [address]- [address] 07 Jun, 2013 [facility] [address] [facility] [id number] [place] [address]- 6658 06 Jun, 2013 [facility] [address] [facility] [id number] [place] [address]- 6974 06 Jun, 2013 [facility] [address] [id number] [place] [address]- 4[address] Jun, [facility] [address] [id number] [place] [address] Jun, [facility] [address] [id number] [place] [address]- 6887 Jun, [facility] [address] [id number] [place] [address]- 6771 Jun, [facility] [address] [id number] [place] [address]- 59[address] May, [facility] [address] [id number] [place] [address]- 4368 May, [facility] [address] [id number] [place] [address]- 0256 May, [facility] [address] [id number] [place] [address]- 4598 May, [facility] [address] [id number] [place] [address]- 2285 May, [facility] [address] [id number] [place] [address]- 0874 May, [facility] [address] [id number] [place] [address]- 7602 May, [facility] [address] [id number] [place] [address]- 9896 May, [facility] [address] [id number] [place] [address]- 3162 May, [facility] [address] [id number] [place] [address]- 8321 May, [facility] [address] [id number] [place] [address]- 7783 May, [facility] [address] [id number], [place] [address] May, [facility] [address] [facility] [id number], [place] [address]- [address] May, [facility] [address] [facility] [id number], [place] [address]- [address] May, [facility] [id number], [place] [address] May, [facility] [address] [facility] [id number], [place] [address]- [address] Apr, [facility] [address] [facility] [id number], [place] [address]- [address] Apr, [facility] [address] [id number], [place] [address] Dec, [facility] [id number], [place] [address] Nov, [facility] [id number], [place] [address]- 1824 May, [facility] [address] [id number] [address] Apr, [facility] [id number] [id number] Apr, [facility] [address] [id number], [place] [address] Apr, [facility] [address] [id number], [place] [address]- 2038 Apr, IMMUNIZATIONS No Known Immunizations SOCIAL HISTORY Never Assessed REASON FOR VISIT Medication refill request PLAN OF CARE VITAL SIGNS MEDICATIONS Unknown Medications RESULTS No Results PROCEDURES No Known procedures INSTRUCTIONS MEDICATIONS ADMINISTERED No Known Medications MEDICAL (GENERAL) HISTORY Type Description Date Medical History asthma Medical History type II diabetes Medical History sleep apnea Medical History narcolepsy Surgical History hysterectomy Hospitalization History Chest pain-[facility] 02/27/17
--- OUTSIDE RECORDS SUMMARY | 2017-12-01 19:11 | XMS REPORT ---
Author Author KATHY BORDEN Organization [facility], [place] Address [address] [place] [address] Care Team Providers Care Utility Porter Name Role Phone KATHY BORDEN Unavailable PROBLEMS Type Condition ICD9-CM Code ZFN96-XY Code Onset Dates Condition Status SNOMED Code Problem Right carpal tunnel syndrome G56.01 Active 82221751 Problem Gastroesophageal reflux disease with esophagitis K21.0 Active 322295051 Problem Falls frequently R29.6 Active 436841830 Problem Porokeratosis Q82.8 Active 844463442 Problem Posterior subcapsular age-related cataract of both eyes H25.043 Active 2112009 Problem Non-alcoholic fatty liver disease K76.0 Active 023102770 Problem Delayed gastric emptying K30 Active 327252091 Problem Pain in left foot M79.672 Active 5251382 Problem Other chronic pain G89.29 Active 95728881 Problem Tarsal tunnel syndrome of left side G57.52 Active 12276026 Problem Obesity E66.9 Active 468321928 Problem Hypermetropia, bilateral H52.03 Active 89179615 Problem Type 2 diabetes mellitus with hyperglycemia E11.65 Active 89355513 Problem Nuclear cataract of both eyes H25.13 Active 36924172 Problem Presbyopia OU H52.4 Active 65126704 Problem Obstructive sleep apnea G47.33 Active 04589848 Problem Shortness of breath R06.02 Active 565218470 Problem Type 2 diabetes mellitus with diabetic polyneuropathy E11.42 Active 06813327 Problem Lung nodule R91.1 Active 807406762 Problem Mixed hyperlipidemia E78.2 Active 148725154 Problem Primary narcolepsy with cataplexy G47.411 Active 630875211 ALLERGIES Substance Reaction Event Type Date Status Penicillin G Sodium Unknown Drug Allergy Mar, Active Erythromycin Unknown Drug Allergy Mar, Active ENCOUNTERS Encounter Location Date Diagnosis [facility] [place] [address] [facility] [id number] [address] Nov, [facility], [place] [id number] [place] [address] 92872- 8023 September, [facility] [place] [id number] [place] [address] 13742- 2350 September, Type 2 diabetes mellitus with hyperglycemia E11.65 [facility] [place] [id number] [place] [address] 84895- 2341 September, Type 2 diabetes mellitus with hyperglycemia E11.65 [facility] [place] [id number] [place] [address] 79497- 4660 September, Porokeratosis Q82.8 and Type 2 diabetes mellitus with diabetic polyneuropathy E11.42 [facility] [id number] [place] [address] 55636 -0496 Aug, Seasonal allergic rhinitis, unspecified trigger J30.2 [place] [address] 42527- 9387 Aug, [facility] [place] [id number] [place] [address] 68917- 7667 Aug, [facility] [address] [id number] Aug, Dental examination V72.2 and Dental examination Z01.20 [place] [id number] [place] [address] 63272- 6930 Aug, Dental examination Z01.20 and Dental caries K02.9 [facility] [place] [id number] [place] [address] 80709- 6394 Aug, Obstructive sleep apnea G47.33 ; Obesity E66.9 ; Type 2 diabetes mellitus with hyperglycemia E11.65 ; Palpitations R00.2 and Corns and callosities L84 [place] [id number] [place] [address] 90087- 5072 Jul, [facility] [place] [id number] [place] [address] 91409- 3002 Jul, [facility] [id number] [place] [address] 30108- 0616 Jun, Type 2 diabetes mellitus with hyperglycemia E11.65 ; Colon cancer screening Z12.11 ; Mixed hyperlipidemia E78.2 ; Non-alcoholic fatty liver disease K76.0 ; Gastroesophageal reflux disease with esophagitis K21.0 and Pain of upper abdomen R10.10 [place] [id number] [place] [address] 85894- 5002 09 Jun, 2017 Falls frequently R29.6 [facility] [id number] [place] [address] 33834 -6682 May, Infection of nose J34.89 [place] [id number] [place] [address] 30814- 4758 May, Bilateral low back pain without sciatica M54.5 [place] [address] 94309- 5620 May, Type 2 diabetes mellitus with diabetic polyneuropathy E11.42 ; Obstructive sleep apnea G47.33 and Type 2 diabetes mellitus with hyperglycemia E11.65 [facility] [id number] [place] [address] 50915- 4143 Apr, Bilateral low back pain without sciatica M54.5 [facility] [id number] [place] [address] 98531- 7981 Apr, Mixed hyperlipidemia E78.2 and Type 2 diabetes mellitus with hyperglycemia E11.65 [facility] [id number] [place] [address] 86232- 7586 Apr, Type 2 diabetes mellitus with diabetic polyneuropathy E11.42 [place] [address] 12690- 4019 Apr, [facility] [id number] [place] [address] 87582- 4806 Apr, Skin lesion of left arm L98.9 and Skin lesion of left leg L98.9 [place] [id number] [place] [address] 10564- 5953 Mar, Bilateral low back pain without sciatica M54.5 [place] [address] 07292- 1175 Mar, Plantar fasciitis of left foot M72.2 ; Bursitis of left foot M71.572 and Type 2 diabetes mellitus with diabetic polyneuropathy E11.42 [place] [address] 15450- 7427 Feb, Non-alcoholic fatty liver disease K76.0 ; Keratoacanthoma L85.8 ; Seborrheic keratosis L82.1 ; Type 2 diabetes mellitus with hyperglycemia E11.65 and Nuclear cataract of both eyes H25.13 [facility] [address] [id number] Feb, [place] [address] 14688- 3365 Feb, [place] [address] 34487- 4139 Feb, [place] [address] 06954- 2026 Feb, Type 2 diabetes mellitus with hyperglycemia E11.65 ; Back muscle spasm M62.830 and Encounter for immunization Z23 [place] [address] 64292- 5001 Jan, Plantar fasciitis of left foot M72.2 [place] [id number] [place] [address] 19194- 6425 Dec, [place] [address] 83946- 5086 Dec, Plantar fasciitis of left foot M72.2 and Tarsal tunnel syndrome of left side G57.52 [place] [address] 76994- 0474 Dec, [facility] [address] [address] 07 Nov, 2016 Mary Jane rash of groin B37.89 and Rash and nonspecific skin eruption R21 [facility] [place] [id number] [place] [address] 69711- 3510 Nov, [facility] [place] [id number] [place] [address] 71112- 8127 Oct, Type 2 diabetes mellitus with hyperglycemia E11.65 and Mixed hyperlipidemia E78.2 [place] [id number] [place] [address] 08306- 9787 Oct, [place] [id number] [place] [address] 26356- 2315 Oct, Chest pain, unspecified R07.9 ; Palpitations R00.2 ; Syncope R55 and Mixed hyperlipidemia E78.2 [place] [id number] [place] [address] 79050- 3787 Oct, Plantar fasciitis, bilateral M72.2 and Type 1 diabetes mellitus with diabetic neuropathy E10.40 [place] [id number] [place] [address] 35243- 4604 Oct, [place] [id number] [place] [address] 79460- 8076 September, Type 2 diabetes mellitus with hyperglycemia E11.65 [facility] [id number] [place] [address] 13683- 2996 September, Type 2 diabetes mellitus with hyperglycemia E11.65 ; Type 2 diabetes mellitus with diabetic polyneuropathy E11.42 ; Gastroesophageal reflux disease with esophagitis K21.0 and Headache, unspecified headache type R51 [facility] [place] [id number] [place] [address] 67765- 7638 September, [place] [id number] [place] [address] 42537- 5448 September, [facility] [place] [id number] [place] [address] 76788- 0460 September, [facility], [place] [address], [place] [address] September, Other chest pain R07.89 ; Heart palpitations R00.2 ; Mixed hyperlipidemia E78.2 and Obesity E66.9 [facility], [place] [address], [place] [address]- 1224 Aug, [facility], [place] [id number] [place] [address] 41616- 5930 Aug, Type 2 diabetes mellitus with diabetic polyneuropathy E11.42 and Type 2 diabetes mellitus with hyperglycemia E11.65 [facility] [place] [id number] [place] [address] 17936- 4809 Aug, [facility] [place] [id number] [place] [address] 18081- 0070 Aug, [facility] [place] [id number] [place] [address] 94467- 1340 Aug, [facility], [place] [id number] [place] [address] 88748- 1034 Aug, Type 2 diabetes mellitus with hyperglycemia E11.65 [facility], [place] [address], [place] [address]- 6182 Aug, [facility], [place] [address], [place] [address]- 3312 Jul, Type 2 diabetes mellitus with diabetic polyneuropathy E11.42 [facility] [place] [address], [place] [address]- 8059 Jul, Type 2 diabetes mellitus with hyperglycemia E11.65 [facility] [place] [address] 7464 Jul, [facility] [place] [address], [place] [address]- 3751 Jul, [facility] [place] [address], [place] [address]- 0519 Jul, [facility] [place] [id number] [place] [address] 59363- 2809 Jul, Type 2 diabetes mellitus with diabetic polyneuropathy E11.42 and Type 2 diabetes mellitus with hyperglycemia E11.65 [facility] [place] [id number] [place] [address] 69050- 4047 Jun, Obstructive sleep apnea G47.33 [place] [address] 13589- 0737 Jun, Type 2 diabetes mellitus with diabetic polyneuropathy E11.42 ; Primary narcolepsy with cataplexy G47.411 ; Abdominal bloating R14.0 ; Other chest pain R07.89 and Vision problems H54.7 [place] [id number] [place] [address] 76972- 8266 Jun, [place] [address] 53671- 2638 May, [place] [address] 71968- 9939 Apr, [place] [address] 21396- 0644 Apr, Plantar fasciitis of left foot M72.2 [place] [id number] [place] [address] 14662- 5955 Mar, [facility] [place] [address] 71981- 7129 Mar, Plantar fasciitis of left foot M72.2 and Type 2 diabetes mellitus with diabetic polyneuropathy E11.42 [place] [address] 00396- 8341 14 Feb, 2016 Type 2 diabetes mellitus with hyperglycemia E11.65 ; Mixed hyperlipidemia E78.2 and Encounter for immunization Z23 [facility] [place] [id number] [place] [address] 40506- 5370 Feb, [place] [address], [place] [address]- 7418 Feb, [facility] [place] [id number] [place] [address] 14085- 3530 Feb, Type 2 diabetes mellitus with hyperglycemia E11.65 [facility] [place] [address] [place] [address] 67899- 7704 Feb, Type 2 diabetes mellitus with hyperglycemia E11.65 [facility], [place] [id number] [place] [address] 03337- 1738 Jan, [facility] [place] [id number] [place] [address] 03875- 1578 Dec, Pain in left foot M79.672 ; Other chronic pain G89.29 ; Type 2 diabetes mellitus with hyperglycemia E11.65 ; Obstructive sleep apnea G47.33 ; Falls frequently R29.6 ; Mixed hyperlipidemia E78.2 and Gastroesophageal reflux disease with esophagitis K21.0 [facility], [place] [address], [place] [address]- 5397 Nov, [facility] [place] [id number] [place] [address] 10380- 0167 Oct, Type 2 diabetes mellitus with diabetic polyneuropathy E11.42 [facility] [place] [address], [place] [address]- 1319 Oct, [facility] [place] [address], [place] [address]- 9466 Oct, [facility], [place] [address], [place] [address]- 2315 September, [facility] [place] [id number] [place] [address] 77257- 0501 September, [facility] [place] [address], [place] [address]- 6040 September, [facility] [place] [id number] [place] [address] 27862- 7354 September, [facility] [place] [address], [place] [address]- 8975 September, [facility] [place] [id number] [place] [address] 16531- 7819 Aug, Type 2 diabetes mellitus with hyperglycemia E11.65 ; Mixed hyperlipidemia E78.2 and Right carpal tunnel syndrome G56.01 [facility] [place] [address], [place] [address]- 8773 Aug, [facility] [place] [address], [place] [address]- 8197 Jul, [facility] [place] [id number] [place] [address] 33354- 8872 Jun, [facility] [place] [id number] [place] [address] 30892- 0651 Jun, [facility] [place] [id number] [place] [address] 50774- 3933 May, [facility] [place] [address], [place] [address]- 8050 May, [facility] [place] [address] [place] [address] 76045- 1334 May, Type 2 diabetes mellitus with hyperglycemia E11.65 and Falls E888.9 [facility] [place] [address], [place] [address]- 2602 Apr, Type 2 diabetes mellitus with hyperglycemia E11.65 [facility] [place] [address], [place] [address]- 2302 Apr, [facility] [place] [address], [place] [address]- 2267 Apr, Type 2 diabetes mellitus with hyperglycemia E11.65 [facility] [place] [address], [place] [address]- 9664 Apr, [facility] [place] [address], [place] [address]- 7096 Mar, Type 2 diabetes mellitus with diabetic polyneuropathy E11.42 ; Bilateral low back pain without sciatica M54.5 and Dry nose J34.89 [facility] [place] [address] 64545- 1547 Mar, Palpitations R00.2 ; Syncope R55 ; DM (diabetes mellitus) E11.9 and Obesity E66.9 [facility] [place] [address] 49282- 4225 Mar, [facility] [place] [address] 67214- 5072 Mar, [facility] [place] [address] 21214- 5902 Mar, [facility] [place] [address] 33206- 2947 Feb, [facility] [place] [address] 98974- 3619 Jan, [facility] [place] [id number] [place] [address] 29363- 5692 Jan, [facility] [place] [address] 11970- 1048 Jan, Falls E888.9 and Sinusitis 473.9 [facility] [place] [id number] [place] [address] 73849- 0273 Dec, [facility] [place] [address] 73455- 0528 Dec, [facility] [place] [id number] [place] [address] 15291- 4495 Dec, [facility] [place] [id number] [place] [address] 08469- 2313 Dec, [facility] [place] [id number] [place] [address] 73842- 6232 Dec, Diabetes mellitus without mention of complication, type II or unspecified type, not stated as uncontrolled 250.00 and Shortness of breath 786.05 [facility] [place] [address], [place] [address]- 9686 Dec, [facility] [place] [address]- 4766 Nov, [facility] [place] [id number] [place] [address] 879328- 7019 Nov, [facility] [place] [id number] [place] [address] 09102- 1802 Oct, Restrictive lung disease 518.89 [facility] [place] [id number] [place] [address] 356188- 2038 Oct, [facility] [place] [id number] [place] [address] 61321- 1514 Oct, Shortness of breath 786.05 [facility] [place] [id number] [place] [address] 96730- 1412 September, Other nonspecific abnormal finding of lung field 793.19 ; Diabetes mellitus without mention of complication, type II or unspecified type, not stated as uncontrolled 250.00 ; Hyperlipidemia LDL goal < 100 272.4 ; Narcolepsy, with cataplexy 347.01 ; Shortness of breath 786.05 and Chest pain 786.50 [facility] [place] [address], [place] [address]- 1390 Aug, [facility] [place] [address] [place] [address] 45338- 5627 Aug, [facility] [place] [address], [place] [address]- 4531 Jun, [facility] [place] [id number] [place] [address] 653556- 6016 Jun, [facility] [place] [address]- 1119 Jun, [facility] [place] [id number] [place] [address]- 0475 05 Jun, 2014 [facility] [place] [facility] [address] [id number] [place] [address]- 0820 Jun, 2014 [facility] [place] [facility] [address] [id number] [place] [address]- 8186 Jun, 2014 [facility] [place] [facility] [address] [id number] [place] [address]- 3105 Jun, 2014 [facility] [place] [facility] [address] [id number] [place] [address]- 3975 Jun, 2014 [facility] [place] [facility] [address] [id number] [place] [address]- 9181 May, [facility] [place] [facility] [address] [id number] [place] [address]- 6277 May, [facility] [place] [facility] [address] [id number] [place] [address]- 2506 Apr, [facility] [place] [facility] [address] [id number] [place] [address]- 5891 Apr, [facility] [place] [facility] [address] [id number] [place] [address]- 4458 Mar, [facility] [place] [facility] [address] [id number] [place] [address]- 9141 Mar, [facility] [place] [facility] [address] [id number] [place] [address]- 1355 Mar, [facility] [place] [facility] [address] [id number] [place] [address]- 8663 Mar, [facility] [place] [facility] [address] [id number] [place] 2979 Nov, [facility] [place] [facility] [address] [id number] [place] 0716 Nov, [facility] [place] [facility] [address] [id number] [place] [address]- 4151 Nov, [facility] [place] [facility] [address] [id number] [place] [address]- 5118 Nov, [facility] [place] [facility] [address] [id number] [place] [address]- 8675 Oct, [facility] [place] [facility] [address] [id number] [place] [address]- 5622 Oct, [facility] [place] [facility] [address] [id number] [place] [address]- 6098 Oct, [facility] [place] [facility] [address] [id number] [place] [address]- 9994 Oct, [facility] [place] [facility] [address] [id number] [place] [address]- 2365 Oct, [facility] [place] [facility] [address] [id number] [place] [address]- 6709 Oct, [facility] [place] [facility] [address] [id number] [place] [address]- 1378 Oct, [facility] [place] [facility] [address] [id number] [place] [address]- 5319 Oct, [facility] [place] [facility] [address] [id number] [place] [address]- 2819 Oct, [facility] [place] [facility] [address] [id number] [place] [address]- 3849 Oct, [facility] [place] [facility] [address] [id number] [address]- 7544 September, [facility] [place] [facility] [address] [id number] [place] [address]- 0525 September, [facility] [place] [facility] [address] [id number] [place] [address] Aug, [facility] [place] [facility] [address] [id number] [place] [address] Aug, [facility] [place] [facility] [address] [id number] [place] [address] 24 Aug, 2013 [facility] [place] [facility] [address] [id number] [place] [address] Aug, [facility] [place] [facility] [address] [id number] [place] [address] Aug, [facility] [place] [facility] [address] [id number] [place] [address] Aug, [facility] [place] [facility] [address] [id number] [place] [address] Jul, [facility] [place] [facility] [address] [id number] [place] [address] Jul, [facility] [place] [facility] [address] [id number] [place] [address] Jul, [facility] [place] [facility] [address] [id number] [place] [address] Jul, [facility] [place] [facility] [address] [id number] [place] [address] Jul, [facility] [place] [facility] [address] [id number] [place] [address] Jul, [facility] [place] [facility] [address] [id number] [place] [address] Jul, [facility] [place] [facility] [address] [id number] [place] [address] Jul, [facility] [place] [facility] [address] [id number] [place] [address] Jul, [facility] [place] [facility] [address] [id number] [place] [address] Jul, [facility] [place] [facility] [address] [id number] [place] [address] Jul, [facility] [place] [facility] [address] [id number] [place] [address] Jul, [facility] [place] [facility] [address] [id number] [place] [address] Jul, [facility] [place] [facility] [address] [id number] [place] [address] Jul, [facility] [place] [facility] [address] [id number] [place] [address] Jul, [facility] [place] [facility] [address] [id number] [place] [address] Jul, [facility] [place] [facility] [address] [id number] [place] [address] Jun, [facility] [place] [facility] [address] [id number] [place] [address] Jun, [facility] [place] [facility] [address] [id number] [place] [address] Jun, [facility] [place] [facility] [address] [id number] [place] [address] Jun, [facility] [place] [facility] [address] [id number] [place] [address] Jun, [facility] [place] [facility] [address] [id number] [place] [address] Jun, [facility] [facility] [address] [id number] [place] [address] Jun, [facility] [place] [facility] [address] [id number] [place] [address] Jun, [facility] [place] [facility] [address] [id number] [place] [address] Jun, [facility] [place] [facility] [address] [id number] [place] [address] Jun, [facility] [place] [facility] [address] [id number] [place] [address] Jun, [facility] [place] [facility] [address] [id number] [place] [address] 18 Jun, 2013 [facility] [place] [facility] [address] [id number] [place] [address] 14 Jun, 2013 [facility] [place] [facility] [address] [id number] [place] [address] 13 Jun, 2013 [facility] [place] [facility] [address] [id number] [place] [address] 13 Jun, 2013 [facility] [place] [facility] [address] [id number] [place] [address] 13 Jun, 2013 [facility] [place] [facility] [address] [id number] [place] [address] 13 Jun, 2013 [facility] [place] [facility] [address] [facility] [id number] [place] [address] 12 Jun, 2013 [facility] [place] [facility] [address] [id number] [place] [address] 12 Jun, 2013 [facility] [place] [facility] [address] [facility] [id number] [place] [address] Jun, [facility] [place] [facility] [address] [facility] [id number] [place] [address] Jun, [facility] [place] [facility] [address] [facility] [id number] [place] [address] 10 Jun, 2013 [facility] [place] [facility] [address] [id number] [place] [address] 07 Jun, 2013 [facility] [place] [facility] [address] [id number] [place] [address] 07 Jun, 2013 [facility] [place] [facility] [address] [id number] [place] [address] 06 Jun, 2013 [facility] [place] [facility] [address] [facility] [id number] [place] [address] 06 Jun, 2013 [facility] [address] [id number] [place] [address] Jun, [facility] [address] [id number] [place] [address] Jun, [facility] [address] [id number] [place] [address] Jun, [facility] [address] [id number] [place] [address] Jun, [facility] [place] [address] [id number] [place] [address] May, [facility] [place] [facility] [address] [id number] [place] [address] May, [facility] [place] [address] [id number] [place] [address] May, [facility] [address] [id number] [place] [address] May, [facility] [address] [id number] [place] [address] May, [facility] [facility] [address] [id number] [place] [address] May, [facility] [address] [id number] [place] [address] May, [facility] [address] [id number] [place] [address] May, [facility] [address] [id number] [place] [address] May, [facility] [address] [id number] [place] [address] May, [facility] [address] [id number] [place] [address] May, [facility] [address] [id number] [place] [address] May, [facility], [place] [address] [id number], [place] [address] May, [facility] [place] [address] [facility] [id number], [place] [address] May, [facility], [place] [address] [facility] [id number], [place] [address] May, [facility], [place] [address] [facility] [id number], [place] [address] Apr, [facility], [place] [address] [facility] [id number], [place] [address] Apr, [facility], [place] [address] [facility] [id number], [place] [address] Dec, [facility], [place] [id number], [place] [address] Nov, [facility], [place] [id number], [place] [address] May, [facility], [place] [id number], [place] [address] Apr, [facility], [place] [address] [id number], [place] [address] Apr, [facility], [place] [address] [id number], [place] [address] Apr, [facility], [place] [address] [id number], [place] [address] Apr, IMMUNIZATIONS No Known Immunizations SOCIAL HISTORY Never Assessed REASON FOR VISIT 2 month f/u. Consult Dr. Borden;Stoney RT(R) PLAN OF CARE Activity Details Follow Up prn Reason: VITAL SIGNS MEDICATIONS Unknown Medications RESULTS No Results PROCEDURES No Known procedures INSTRUCTIONS MEDICATIONS ADMINISTERED No Known Medications MEDICAL (GENERAL) HISTORY Type Description Date Medical History asthma Medical History type II diabetes Medical History sleep apnea Medical History narcolepsy Surgical History hysterectomy Hospitalization History Chest pain-[facility] 02/27/17
--- OUTSIDE RECORDS SUMMARY | 2017-12-01 19:12 | XMS REPORT ---
Author Author QUINTEN GILLIAM [facility] Address [address] [place] [address] Care Team Providers Care Asbestos Handler Name Role Phone QUINTEN GILLIAM Unavailable PROBLEMS Type Condition ICD9-CM Code PGE37-PF Code Onset Dates Condition Status SNOMED Code Problem Right carpal tunnel syndrome G56.01 Active 27133580 Problem Gastroesophageal reflux disease with esophagitis K21.0 Active 983327214 Problem Falls frequently R29.6 Active 702793539 Problem Porokeratosis Q82.8 Active 308571465 Problem Posterior subcapsular age-related cataract of both eyes H25.043 Active 2735976 Problem Non-alcoholic fatty liver disease K76.0 Active 489851415 Problem Delayed gastric emptying K30 Active 877533172 Problem Pain in left foot M79.672 Active 6057250 Problem Other chronic pain G89.29 Active 64652530 Problem Tarsal tunnel syndrome of left side G57.52 Active 18704717 Problem Obesity E66.9 Active 852556209 Problem Hypermetropia, bilateral H52.03 Active 00350232 Problem Type 2 diabetes mellitus with hyperglycemia E11.65 Active 70953833 Problem Nuclear cataract of both eyes H25.13 Active 69647794 Problem Presbyopia OU H52.4 Active 01463342 Problem Obstructive sleep apnea G47.33 Active 72948368 Problem Shortness of breath R06.02 Active 578666006 Problem Type 2 diabetes mellitus with diabetic polyneuropathy E11.42 Active 38498116 Problem Lung nodule R91.1 Active 735984810 Problem Mixed hyperlipidemia E78.2 Active 584333664 Problem Primary narcolepsy with cataplexy G47.411 Active 075225489 ALLERGIES Substance Reaction Event Type Date Status Penicillin G Sodium Unknown Drug Allergy Apr, Active Erythromycin Unknown Drug Allergy Apr, Active ENCOUNTERS Encounter Location Date Diagnosis [facility] [address] [facility] [id number] [address] Nov, [facility] [id number] [place] [address] 71040- 7821 Oct, [facility] [address] [address]- [address] September, [facility] [address] 80144- 8668 September, Type 2 diabetes mellitus with hyperglycemia E11.65 [facility] [address] 82748- 0080 September, Type 2 diabetes mellitus with hyperglycemia E11.65 [place] [address] 48697- 7672 September, Porokeratosis Q82.8 and Type 2 diabetes mellitus with diabetic polyneuropathy E11.42 [facility] [address] [address] Aug, Seasonal allergic rhinitis, unspecified trigger J30.2 [facility] [id number] [place] [address] 67520- 8265 Aug, [facility] [id number] [place] [address] 24552- 3781 Aug, [facility] [id number] [place] [address] [id number] Aug, Dental examination V72.2 and Dental examination Z01.20 [place] [id number] [place] [address] 49838- 2726 Aug, Dental examination Z01.20 and Dental caries K02.9 [place] [id number] [place] [address] 96902- 9463 Aug, Obstructive sleep apnea G47.33 ; Obesity E66.9 ; Type 2 diabetes mellitus with hyperglycemia E11.65 ; Palpitations R00.2 and Corns and callosities L84 [place] [id number] [place] [address] 63973- 8779 Jul, [facility] [id number] [place] [address] 96142- 0794 Jul, [place] [id number] [place] [address] 68172- 4081 Jun, Type 2 diabetes mellitus with hyperglycemia E11.65 ; Colon cancer screening Z12.11 ; Mixed hyperlipidemia E78.2 ; Non-alcoholic fatty liver disease K76.0 ; Gastroesophageal reflux disease with esophagitis K21.0 and Pain of upper abdomen R10.10 [place] [id number] [place] [address] 24965- 1676 09 Jun, 2017 Falls frequently R29.6 [facility] [place] [id number] [place] [address] 27357 -8164 May, Infection of nose J34.89 [place] [id number] [place] [address] 67343- 9661 May, Bilateral low back pain without sciatica M54.5 [place] [id number] [place] [address] 68101- 4525 May, Type 2 diabetes mellitus with diabetic polyneuropathy E11.42 ; Obstructive sleep apnea G47.33 and Type 2 diabetes mellitus with hyperglycemia E11.65 [place] [id number] [place] [address] 74287- 6195 Apr, Bilateral low back pain without sciatica M54.5 [place] [id number] [place] [address] 63550- 0032 Apr, Mixed hyperlipidemia E78.2 and Type 2 diabetes mellitus with hyperglycemia E11.65 [place] [id number] [place] [address] 78515- 9183 Apr, Type 2 diabetes mellitus with diabetic polyneuropathy E11.42 [place] [id number] [place] [address] 89604- 0057 Apr, [place] [id number] [place] [address] 39635- 1988 Apr, Skin lesion of left arm L98.9 and Skin lesion of left leg L98.9 [facility] [address] 73300- 5640 Mar, Bilateral low back pain without sciatica M54.5 [facility] [address] 68848- 8314 Mar, Plantar fasciitis of left foot M72.2 ; Bursitis of left foot M71.572 and Type 2 diabetes mellitus with diabetic polyneuropathy E11.42 [facility] [address] 93777- 4451 Feb, Non-alcoholic fatty liver disease K76.0 ; Keratoacanthoma L85.8 ; Seborrheic keratosis L82.1 ; Type 2 diabetes mellitus with hyperglycemia E11.65 and Nuclear cataract of both eyes H25.13 [facility] [place] [address] [id number] Feb, [facility] [id number] [place] [address] 09253- 9320 Feb, [facility] [address] 24286- 5960 Feb, [facility] [address] 07861- 0390 Feb, Type 2 diabetes mellitus with hyperglycemia E11.65 ; Back muscle spasm M62.830 and Encounter for immunization Z23 [facility] [id number] [place] [address] 08969- 9733 Jan, Plantar fasciitis of left foot M72.2 [facility] [address] 18525- 2898 Dec, [facility] [id number] [place] [address] 05185- 9733 Dec, Plantar fasciitis of left foot M72.2 and Tarsal tunnel syndrome of left side G57.52 [facility] [id number] [place] [address] 47808- 8998 Dec, [facility] [id number] [place] [address] 03558 -0075 Nov, Mary Jane rash of groin B37.89 and Rash and nonspecific skin eruption R21 [facility] [id number] [place] [address] 37580- 5256 Nov, [facility] [address] 30082- 0998 Oct, Type 2 diabetes mellitus with hyperglycemia E11.65 and Mixed hyperlipidemia E78.2 [place] [address] 00246- 7390 Oct, [place] [id number] [place] [address] 42687- 1185 Oct, Chest pain, unspecified R07.9 ; Palpitations R00.2 ; Syncope R55 and Mixed hyperlipidemia E78.2 [place] [id number] [place] [address] 18433- 3404 Oct, Plantar fasciitis, bilateral M72.2 and Type 1 diabetes mellitus with diabetic neuropathy E10.40 [place] [id number] [place] [address] 49261- 8509 Oct, [place] [id number] [place] [address] 73062- 6977 September, Type 2 diabetes mellitus with hyperglycemia E11.65 [place] [id number] [place] [address] 71188- 6841 September, Type 2 diabetes mellitus with hyperglycemia E11.65 ; Type 2 diabetes mellitus with diabetic polyneuropathy E11.42 ; Gastroesophageal reflux disease with esophagitis K21.0 and Headache, unspecified headache type R51 [place] [id number] [place] [address] 75057- 7897 September, [place] [address] 04986- 3285 September, [facility] [address] [place] [address] 56864- 9121 September, [facility] [id number] [place] [address] 13262- 7404 September, Other chest pain R07.89 ; Heart palpitations R00.2 ; Mixed hyperlipidemia E78.[address] [facility] [id number] [place] [address] 29808- 5283 Aug, [facility] [id number] [place] [address] 42520- 5070 Aug, Type 2 diabetes mellitus with diabetic polyneuropathy E11.42 and Type 2 diabetes mellitus with hyperglycemia E11.65 [facility] [id number] [place] [address] 48397- 4941 Aug, [facility] [id number] [place] [address] 75036- 7432 Aug, [facility] [id number] [place] [address] 67949- 1745 Aug, [facility] [id number] [place] [address] 26756- 6920 Aug, Type 2 diabetes mellitus with hyperglycemia E11.65 [facility] [address] [place] [address] 00190- 4235 Aug, [facility] [id number] [place] [address] 98312- 3782 Jul, Type 2 diabetes mellitus with diabetic polyneuropathy E11.42 [facility] [id number] [place] [address] 12304- 4382 Jul, Type 2 diabetes mellitus with hyperglycemia E11.65 [facility] [address] [address] 3225 Jul, [facility] [id number] [place] [address] 77506- 8013 Jul, [place] [id number] [place] [address] 48673- 3013 Jul, [place] [address] 37990- 9463 Jul, Type 2 diabetes mellitus with diabetic polyneuropathy E11.42 and Type 2 diabetes mellitus with hyperglycemia E11.65 [place] [address] 24200- 2008 Jun, Obstructive sleep apnea G47.33 [place] [id number] [place] [address] 71471- 2259 Jun, Type 2 diabetes mellitus with diabetic polyneuropathy E11.42 ; Primary narcolepsy with cataplexy G47.411 ; Abdominal bloating R14.0 ; Other chest pain R07.89 and Vision problems H54.7 [place] [id number] [place] [address] 63041- 6227 Jun, [place] [id number] [place] [address] 94646- 7210 May, [place] [id number] [place] [address] 71901- 6771 Apr, [place] [id number] [place] [address] 19581- 6561 Apr, Plantar fasciitis of left foot M72.2 [place] [id number] [place] [address] 00255- 7971 Mar, [place] [id number] [place] [address] 42292- 0714 Mar, Plantar fasciitis of left foot M72.2 and Type 2 diabetes mellitus with diabetic polyneuropathy E11.42 [place] [id number] [place] [address] 19641- 4069 14 Feb, 2016 Type 2 diabetes mellitus with hyperglycemia E11.65 ; Mixed hyperlipidemia E78.2 and Encounter for immunization Z23 [place] [address], [place] [address] 0942 Feb, [facility] [address], [place] [address]- 7707 Feb, [facility] [address], [place] [address]- 1767 Feb, Type 2 diabetes mellitus with hyperglycemia E11.65 [facility] [id number] [place] [address] 28269- 9346 Feb, Type 2 diabetes mellitus with hyperglycemia E11.65 [facility] [address] [place] [address] 08204- 7584 Jan, [facility] [id number] [place] [address] 63255- 4886 Dec, Pain in left foot M79.672 ; Other chronic pain G89.29 ; Type 2 diabetes mellitus with hyperglycemia E11.65 ; Obstructive sleep apnea G47.33 ; Falls frequently R29.6 ; Mixed hyperlipidemia E78.2 and Gastroesophageal reflux disease with esophagitis K21.0 [facility] [address], [place] [address]- 5114 Nov, [facility] [address], [place] [address]- 7765 Oct, Type 2 diabetes mellitus with diabetic polyneuropathy E11.42 [facility] [address], [place] [address]- 9076 Oct, [facility] [address], [place] [address]- 1740 Oct, [facility] [address], [place] [address]- 3842 September, [facility] [address], [place] [address]- 5945 September, [facility] [address], [place] [address]- 6325 September, [facility] [address], [place] [address]- 6930 September, [facility] [id number] [place] [address] 52955- 0692 September, [facility] [address], [place] [address]- 5406 Aug, Type 2 diabetes mellitus with hyperglycemia E11.65 ; Mixed hyperlipidemia E78.2 and Right carpal tunnel syndrome G56.01 [facility] [address] [facility] [id number] [address]- 5066 Aug, [facility] [id number] [place] [address] 74562- 6343 Jul, [facility] [id number] [place] [address] 90928- 3315 Jun, [facility] [id number] [place] [address] 92533- 0307 Jun, [facility] [address], [place] [address]- 5557 May, [facility] [address] [place] [address] 93872- 5238 May, [facility] [address], [place] [address]- 7570 May, Type 2 diabetes mellitus with hyperglycemia E11.[address] [facility] [address], [place] [address]- 3215 Apr, Type 2 diabetes mellitus with hyperglycemia E11.65 [facility] [address], [place] [address]- 9900 Apr, [facility] [address], [place] [address]- 7331 Apr, Type 2 diabetes mellitus with hyperglycemia E11.65 [facility] [address] [place] [address] 29226- 9299 Apr, [facility] [id number] [place] [address] 06080- 3751 Mar, Type 2 diabetes mellitus with diabetic polyneuropathy E11.42 ; Bilateral low back pain without sciatica M54.[address] [facility] [id number] [place] [address] 73757- 2099 Mar, Palpitations R00.2 ; Syncope R55 ; DM (diabetes mellitus) E11.[address] [facility] [id number] [place] [address] 35204- 4089 Mar, [facility] [id number] [place] [address] 63679- 3813 Mar, [facility] [id number] [place] [address] 10594- 6822 Mar, [facility] [id number] [place] [address] 61027- 0641 Feb, [facility] [id number] [place] [address] 38668- 1842 Jan, [facility] [id number] [place] [address] 55864- 9086 Jan, [facility] [id number] [place] [address] 78593- 1384 Jan, Falls E888.[address] [facility] [id number] [place] [address] 53177- 9910 Dec, [facility] [id number] [place] [address] 70837- 4353 Dec, [facility] [id number] [place] [address] 03245- 5075 Dec, [facility] [id number] [place] [address] 74608- 1946 Dec, [facility] [address], [place] [address]- 5604 Dec, Diabetes mellitus without mention of complication, type II or unspecified type, not stated as uncontrolled 250.00 and Shortness of breath 786.05 [facility] [id number] [place] [address] 19829- 4226 Dec, [facility] [id number] [place] [address] 53448- 7009 Nov, [facility] [id number] [place] [address] 70356- 5336 Nov, [facility] [id number] [place] [address] 92679- 2582 Oct, Restrictive lung disease 518.89 [facility] [id number] [place] [address] 70104- 1356 Oct, [facility] [id number] [place] [address] 80399- 0098 Oct, Shortness of breath 786.05 [facility] [id number] [place] [address] 26024- 6070 September, Other nonspecific abnormal finding of lung field 793.19 ; Diabetes mellitus without mention of complication, type II or unspecified type, not stated as uncontrolled 250.00 ; Hyperlipidemia LDL goal < 100 272.4 ; Narcolepsy, with cataplexy 347.01 ; Shortness of breath 786.05 and Chest pain 786.50 [facility] [address] [place] [address] 08185- 5340 Aug, [facility] [id number] [place] [address] 55133- 8430 Aug, [facility] [id number] [place] [address] 060959- 56[address] Jun, [facility] [address], [place] [address]- 1268 Jun, [facility] [address] [place] [address]- 5532 Jun, 2014 [facility] [place] [facility] [address] [id number] [place] [address]- 8070 Jun, 2014 [facility] [place] [facility] [address] [id number] [place] [address]- 2589 Jun, 2014 [facility] [place] [facility] [address] [id number] [place] [address]- 6437 Jun, 2014 [facility] [place] [facility] [address] [id number] [place] [address]- 2607 Jun, 2014 [facility] [place] [facility] [address] [id number] [place] [address]- 1362 Jun, 2014 [facility] [place] [facility] [address] [facility] [id number] [place] [address]- 4587 May, [facility] [place] [facility] [address] [facility] [id number] [place] [address]- 0582 May, [facility] [place] [facility] [address] [id number] [place] [address]- 5975 Apr, [facility] [place] [facility] [address] [facility] [id number] [place] [address]- 9292 Apr, [facility] [place] [facility] [address] [facility] [id number] [place] [address]- 0726 Mar, [facility] [place] [facility] [address] [id number] [place] [address]- 1269 Mar, [facility] [place] [facility] [address] [id number] [place] [address]- 7648 Mar, [facility] [place] [facility] [address] [id number] [place] [address]- 8497 Mar, [facility] [place] [facility] [address] [id number] [place] [address] Nov, [facility] [place] [facility] [address] [id number] [place] [address] Nov, [facility] [place] [facility] [address] [id number] [place] [address] Nov, [facility] [place] [facility] [address] [id number] [place] [address] Nov, [facility] [place] [facility] [address] [id number] [place] [address] Oct, [facility] [place] [facility] [address] [id number] [place] [address] Oct, [facility] [place] [facility] [address] [id number] [place] [address] Oct, [facility] [place] [facility] [address] [id number] [place] [address] Oct, [facility] [place] [facility] [address] [id number] [place] [address] Oct, [facility] [place] [facility] [address] [id number] [place] [address] Oct, [facility] [place] [facility] [address] [id number] [place] [address] Oct, [facility] [place] [facility] [address] [id number] [place] [address] Oct, [facility] [place] [facility] [address] [id number] [place] [address] Oct, [facility] [place] [facility] [address] [id number] [place] [address] Oct, [facility] [place] [facility] [address] [id number] [place] [address] September, [facility] [place] [facility] [address] [id number] [place] [address] September, [facility] [place] [facility] [address] [id number] [place] [address] Aug, [facility] [place] [facility] [address] [id number] [place] [address] 30 Aug[facility] 2013 [facility] [address] [id number] [place] [address] Aug, [facility] [place] [facility] [address] [id number] [place] [address] Aug, [facility] [address] [id number] [place] [address] Aug, [facility] [place] [facility] [address] [id number] [place] [address] Aug, [facility] [address] [id number] [place] [address] Jul, [facility] [address] [id number] [place] [address] Jul, [facility] [address] [id number] [place] [address] Jul, [facility] [address] [id number] [place] [address] Jul, [facility] [place] [facility] [address] [id number] [place] [address] Jul, [facility] [address] [id number] [place] [address] Jul, [facility] [place] [facility] [address] [id number] [place] [address] Jul, [facility] [place] [facility] [address] [id number] [place] [address] Jul, [facility] [place] [facility] [address] [id number] [place] [address] Jul, [facility] [place] [facility] [address] [id number] [place] [address] Jul, [facility] [place] [facility] [address] [id number] [place] [address] Jul, [facility] [place] [facility] [address] [id number] [place] [address] 19 Jul, 2013 [facility] [place] [facility] [address] [id number] [place] [address] 19 Jul, 2013 [facility] [place] [facility] [address] [id number] [place] [address] Jul, [facility] [place] [facility] [address] [id number] [place] [address] 14 Jul, 2013 [facility] [place] [facility] [address] [id number] [place] [address] Jul, [facility] [place] [facility] [address] [id number] [place] [address] Jun, [facility] [place] [facility] [address] [id number] [place] [address] Jun, [facility] [place] [facility] [address] [id number] [place] [address] Jun, [facility] [place] [facility] [address] [id number] [place] [address] Jun, [facility] [place] [facility] [address] [id number] [place] [address] Jun, [facility] [place] [facility] [address] [id number] [place] [address] Jun, [facility] [place] [facility] [address] [id number] [place] [address] Jun, [facility] [place] [facility] [address] [id number] [place] [address] Jun, [facility] [place] [facility] [address] [id number] [place] [address] Jun, [facility] [place] [facility] [address] [id number] [place] [address] Jun, [facility] [place] [facility] [address] [id number] [place] [address] 18 Jun, 2013 [facility] [place] [facility] [address] [id number] [place] [address] 18 Jun, 2013 [facility] [place] [facility] [address] [id number] [place] [address]- [address]46 14 Jun, 2013 [facility] [place] [facility] [address] [id number] [place] [address]- 1296 13 Jun, 2013 [facility] [place] [facility] [address] [id number] [place] [address] 13 Jun, 2013 [facility] [place] [facility] [address] [id number] [place] [address]- 2096 13 Jun, 2013 [facility] [place] [facility] [address] [facility] [id number] [place] [address]- [address] 13 Jun, 2013 [facility] [place] [facility] [address] [facility] [id number] [place] [address]- [address] 12 Jun, 2013 [facility] [place] [facility] [address] [facility] [id number] [place] [address] 64[address] 12 Jun, 2013 [facility] [place] [facility] [address] [facility] [id number] [place] [address]- 8428 11 Jun, 2013 [facility] [place] [facility] [address] [facility] [id number] [place] [address] 11 Jun, 2013 [facility] [place] [facility] [address] [facility] [id number] [place] [address]- 44[address] 10 Jun, 2013 [facility] [place] [facility] [address] [id number] [place] [address]40 07 Jun, 2013 [facility] [place] [facility] [address] [id number] [place] [address]- 8536 07 Jun, 2013 [facility] [place] [facility] [address] [facility] [id number] [place] [address] 06 Jun, 2013 [facility] [place] [facility] [address] [facility] [id number] [place] [address]- [address] Jun, [facility] [address] [id number] [place] [address] Jun, [facility] [place] [facility] [address] [id number] [place] [address] 8036 Jun, [facility] [place] [facility] [address] [id number] [place] [address] Jun, [facility] [place] [facility] [address] [id number] [place] [address] 9[address] Jun, [facility] [place] [facility] [address] [id number] [place] [address] 1316 May, [facility] [place] [facility] [address] [id number] [place] [address] May, [facility] [address] [id number] [place] [address] 1698 May, [facility] [address] [id number] [place] [address]- 120[address] May, [facility] [place] [facility] [address] [id number] [place] [address]- [address] May, [facility] [address] [id number] [place] [address] May, [facility] [place] [facility] [address] [id number] [place] [address] May, [facility] [place] [facility] [address] [id number] [place] [address]- [address] May, [facility] [place] [facility] [address] [id number] [place] [address]- [address] May, [facility] [place] [facility] [address] [id number] [place] [address]- 8567 May, [facility] [place] [facility] [address] [id number] [place] [address] May, [facility] [address] [facility] [id number] [address] May, [facility] [address] [id number], [place] [address] May, [facility] [address] [facility] [id number], [place] [address] May, [facility] [address] [facility] [id number], [place] [address] May, [facility] [address] [facility] [id number] Apr, [facility] [address] [id number] [address] Apr, [facility] [address] [id number] [address] Dec, [facility] [id number] [address] Nov, [facility] [address] [id number] [address] May, [facility] [address] [id number], [place] [address] Apr, [facility] [address] [id number], [place] [address] Apr, [facility] [address] [id number] Apr, [facility] [address] [facility] [id number][place] [address] Apr, IMMUNIZATIONS No Known Immunizations SOCIAL HISTORY Never Assessed REASON FOR VISIT Lesion removal left hand -- joanie joseph, needing medication refill PLAN OF CARE Activity Details Follow Up prn Reason: VITAL SIGNS Height 64 in 2017-04-12 Weight 198.0 lbs 2017-04-12 Temperature 97.8 degrees Fahrenheit 2017-04-12 BMI 33.98 kg/m2 2017-04-12 Blood pressure systolic 130 mmHg 2017-04-12 Blood pressure diastolic 76 mmHg 2017-04-12 MEDICATIONS Medication Instructions Dosage Frequency Start Date End Date Duration Status Pravastatin Sodium 40 mg Orally Once a day 1 tablet 24h September, 90 days Active Gabapentin 300 MG Orally Three times a day 3 capsules 8h 20 Mar, 2015 Active Test strips Test Strips Contour teststrips directed 12h Dec, Active Proventil HFA 108 (90 Base) MCG/ACT Inhalation every 4 hrs 2 puffs as needed 4h Dec, Active Calamine - Active Test strips Test Strips Frank Contour test strips 2 times a day test blood sugar 12h Feb, Active NovoLog Flexpen 100 UNIT/ML Subcutaneous 3 times a day 25 units 8h 07 Dec, 2014 Active Levemir Flexpen 100 unit/mL (3 mL) subcutaneous 2 times a day 50 units 12h 24 Aug, 2013 Active Famotidine 20 mg Orally twice a day 1 tablet at bedtime 12h Active Pen [place] 32G X 4 MM as directed Dec, 90 days Active Carafate 1 GM Orally Twice a day 1 tablet at bedtime on an empty stomach before meals 12h Active Jardiance 10 mg Orally Once a day 1 tablet 24h Feb, May, 90 days Active RESULTS No Results PROCEDURES Procedure Date Ordered Result Body Site BIOPSY OF SKIN LESION Apr 12, 2017 BIOPSY, SKIN ADD-ON Apr 12, 2017 INSTRUCTIONS MEDICATIONS ADMINISTERED No Known Medications MEDICAL (GENERAL) HISTORY Type Description Date Medical History asthma Medical History type II diabetes Medical History sleep apnea Medical History narcolepsy Surgical History hysterectomy Hospitalization History Chest pain-[facility] 02/27/17
--- OUTSIDE RECORDS SUMMARY | 2017-12-01 19:13 | XMS REPORT ---
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 Name Role Phone KATHY BORDEN Unavailable PROBLEMS Type Condition ICD9-CM Code NZP83-GP Code Onset Dates Condition Status SNOMED Code Problem Primary narcolepsy with cataplexy G47.411 Active 575556404 Problem Falls frequently R29.6 Active 389882951 Problem Right carpal tunnel syndrome G56.01 Active 77721954 Problem Non-alcoholic fatty liver disease K76.0 Active 604840816 Problem Posterior subcapsular age-related cataract of both eyes H25.043 Active 9968533 Problem Tarsal tunnel syndrome of left side G57.52 Active 16807838 Problem Other chronic pain G89.29 Active 92598901 Problem Gastroesophageal reflux disease with esophagitis K21.0 Active 465597761 Problem Obesity E66.9 Active 366497834 Problem Pain in left foot M79.672 Active 5221374 Problem Delayed gastric emptying K30 Active 702612135 Problem Hypermetropia, bilateral H52.03 Active 55952173 Problem Nuclear cataract of both eyes H25.13 Active 97077085 Problem Presbyopia OU H52.4 Active 29263984 Problem Mixed hyperlipidemia E78.2 Active 003145508 Problem Obstructive sleep apnea G47.33 Active 37744061 Problem Type 2 diabetes mellitus with hyperglycemia E11.65 Active 94160016 Problem Shortness of breath R06.02 Active 985886907 Problem Type 2 diabetes mellitus with diabetic polyneuropathy E11.42 Active 12304778 Problem Lung nodule R91.1 Active 615743140 ALLERGIES No Information ENCOUNTERS Encounter Location Date Diagnosis [facility] [address] [facility] [id number] [address] September, [facility] [id number] [address] Aug, [facility] [id number] [place] [address] [id number] Aug, Dental examination V72.2 and Dental examination Z01.20 [place] [id number] [place] [address] 60413- 1054 Aug, Dental examination Z01.20 and Dental caries K02.[address] [address]- 1357 Aug, Obstructive sleep apnea G47.33 ; Obesity E66.9 ; Type 2 diabetes mellitus with hyperglycemia E11.65 ; Palpitations R00.2 and Corns and callosities L84 [place] [address] 90201- 4430 Jul, [place] [address] 71698- 7866 Jul, [place] [address] 91975- 5332 Jun, Type 2 diabetes mellitus with hyperglycemia E11.65 ; Colon cancer screening Z12.11 ; Mixed hyperlipidemia E78.2 ; Non-alcoholic fatty liver disease K76.0 ; Gastroesophageal reflux disease with esophagitis K21.0 and Pain of upper abdomen R10.10 [place] [id number] [place] [address] 52380- 9650 09 Jun, 2017 Falls frequently R29.6 [facility] [id number] [place] [address] 75722 -7602 May, Infection of nose J34.[address] 10408- 9452 May, Bilateral low back pain without sciatica M54.5 [place] [id number] [place] [address] 43727- 5508 May, Type 2 diabetes mellitus with diabetic polyneuropathy E11.42 ; Obstructive sleep apnea G47.33 and Type 2 diabetes mellitus with hyperglycemia E11.65 [place] [id number] [place] [address] 58364- 0050 Apr, Bilateral low back pain without sciatica M54.5 [facility] [id number] [place] [address] 61523- 3131 Apr, Mixed hyperlipidemia E78.2 and Type 2 diabetes mellitus with hyperglycemia E11.65 [place] [id number] [place] [address] 78209- 3387 Apr, Type 2 diabetes mellitus with diabetic polyneuropathy E11.42 [place] [id number] [place] [address] 96295- 7809 Apr, [place] [address] 39159- 3549 Apr, Skin lesion of left arm L98.9 and Skin lesion of left leg L98.9 [place] [id number] [place] [address] 42724- 4897 Mar, Bilateral low back pain without sciatica M54.5 [place] [id number] [place] [address] 75345- 4722 Mar, Plantar fasciitis of left foot M72.2 ; Bursitis of left foot M71.572 and Type 2 diabetes mellitus with diabetic polyneuropathy E11.42 [place] [id number] [place] [address] 33272- 8001 Feb, Non-alcoholic fatty liver disease K76.0 ; Keratoacanthoma L85.8 ; Seborrheic keratosis L82.1 ; Type 2 diabetes mellitus with hyperglycemia E11.65 and Nuclear cataract of both eyes H25.13 [facility] [id number] [place] [address] [id number] Feb, [facility] [id number] [place] [address] 60253- 7985 Feb, [facility] [id number] [place] [address] 49153- 6948 Feb, [place] [address] 18285- 5486 Feb, Type 2 diabetes mellitus with hyperglycemia E11.65 ; Back muscle spasm M62.830 and Encounter for immunization Z23 [facility] [address] 41383- 6506 Jan, Plantar fasciitis of left foot M72.2 [place] [address] 12942- 4860 Dec, [place] [address] 65358- 0336 Dec, Plantar fasciitis of left foot M72.2 and Tarsal tunnel syndrome of left side G57.52 [place] [address] 65225- 5117 Dec, [facility] [address] 63529 -0246 Nov, Mary Jane rash of groin B37.89 and Rash and nonspecific skin eruption R21 [place] [address] 05120- 7735 Nov, [place] [address] 37600- 3578 Oct, Type 2 diabetes mellitus with hyperglycemia E11.65 and Mixed hyperlipidemia E78.2 [place] [address] 12910- 1602 Oct, [place] [address] 35764- 8949 Oct, Chest pain, unspecified R07.9 ; Palpitations R00.2 ; Syncope R55 and Mixed hyperlipidemia E78.2 [place] [address] 19350- 9946 Oct, Plantar fasciitis, bilateral M72.2 and Type 1 diabetes mellitus with diabetic neuropathy E10.40 [place] [address] [place] [address]- 9289 Oct, [facility] [id number] [place] [address] 62565- 3141 September, Type 2 diabetes mellitus with hyperglycemia E11.65 [facility] [id number] [place] [address] 26938- 8578 September, Type 2 diabetes mellitus with hyperglycemia E11.65 ; Type 2 diabetes mellitus with diabetic polyneuropathy E11.42 ; Gastroesophageal reflux disease with esophagitis K21.0 and Headache, unspecified headache type R51 [facility] [id number] [place] [address] 73933- 9800 September, [facility] [id number] [place] [address] 00385- 6982 September, [facility] [id number] [place] [address] 94287- 4150 September, [facility] [id number] [place] [address] 60308- 4986 September, Other chest pain R07.89 ; Heart palpitations R00.2 ; Mixed hyperlipidemia E78.2 and Obesity E66.9 [facility] [id number] [place] [address] 46901- 8176 Aug, [facility] [id number] [place] [address] 28479- 1641 Aug, Type 2 diabetes mellitus with diabetic polyneuropathy E11.42 and Type 2 diabetes mellitus with hyperglycemia E11.65 [facility] [id number] [place] [address] 91647- 2130 Aug, [facility] [id number] [place] [address] 46835- 5182 Aug, [facility] [id number] [place] [address] 76989- 7296 Aug, [facility] [id number] [place] [address] 64775- 7669 Aug, Type 2 diabetes mellitus with hyperglycemia E11.65 [facility] [address] [address]- 2639 Aug, [facility] [id number] [place] [address] 92130- 7275 Jul, Type 2 diabetes mellitus with diabetic polyneuropathy E11.42 [facility] [id number] [place] [address] 79645- 3014 Jul, Type 2 diabetes mellitus with hyperglycemia E11.65 [facility] [id number] [place] [address] 50575- 5290 Jul, [facility] [id number] [place] [address] 00867- 9509 Jul, [facility] [id number] [place] [address] 98758- 2756 Jul, [facility] [id number] [place] [address] 47338- 5369 Jul, Type 2 diabetes mellitus with diabetic polyneuropathy E11.42 and Type 2 diabetes mellitus with hyperglycemia E11.65 [facility] [id number] [place] [address] 96529- 9362 Jun, Obstructive sleep apnea G47.33 [facility] [id number] [place] [address] 94630- 2031 Jun, Type 2 diabetes mellitus with diabetic polyneuropathy E11.42 ; Primary narcolepsy with cataplexy G47.411 ; Abdominal bloating R14.0 ; Other chest pain R07.89 and Vision problems H54.7 [facility] [id number] [place] [address] 49407- 0368 Jun, [facility] [id number] [place] [address] 24724- 3527 May, [facility] [id number] [place] [address] 01072- 4089 Apr, [place] [id number] [place] [address] 77103- 6478 Apr, Plantar fasciitis of left foot M72.2 [place] [address] 56764- 4429 Mar, [place] [id number] [place] [address] 99558- 8939 Mar, Plantar fasciitis of left foot M72.2 and Type 2 diabetes mellitus with diabetic polyneuropathy E11.42 [place] [address] 00812- 7537 Feb, Type 2 diabetes mellitus with hyperglycemia E11.65 ; Mixed hyperlipidemia E78.2 and Encounter for immunization Z23 [place] [id number] [place] [address] 46774- 3954 Feb, [place] [address] 15026- 9888 Feb, [place] [address] 32949- 5500 Feb, Type 2 diabetes mellitus with hyperglycemia E11.65 [place] [id number] [place] [address] 66638- 8046 Feb, Type 2 diabetes mellitus with hyperglycemia E11.65 [place] [id number] [place] [address] 45983- 0290 Jan, [place] [address] 74661- 2896 Dec, Pain in left foot M79.672 ; Other chronic pain G89.29 ; Type 2 diabetes mellitus with hyperglycemia E11.65 ; Obstructive sleep apnea G47.33 ; Falls frequently R29.6 ; Mixed hyperlipidemia E78.2 and Gastroesophageal reflux disease with esophagitis K21.0 [place] [id number] [place] [address] 41968- 9451 Nov, [place] [address] 80772- 6265 Oct, Type 2 diabetes mellitus with diabetic polyneuropathy E11.42 [facility] [address] [address]- 4284 Oct, [facility] [address], [place] [address]- 4865 Oct, [facility] [address] [address]- 1634 September, [facility] [address] [address]- 1218 September, [facility] [address] [place] [address] 32719- 8616 September, [facility] [address] [address]- 3295 September, [facility] [address] [place] [address] 99760- 7928 September, [facility] [address] [address]- 5278 Aug, Type 2 diabetes mellitus with hyperglycemia E11.65 ; Mixed hyperlipidemia E78.2 and Right carpal tunnel syndrome G56.01 [facility] [address] [address]- 9954 Aug, [facility] [address] [address]- 0353 Jul, [facility] [address] [address]- 6956 Jun, [facility] [address] 5413 Jun, [facility] [address] [address]- 0524 May, [facility] [address] [address]- 2948 May, [facility] [address] [address]- 7997 May, Type 2 diabetes mellitus with hyperglycemia E11.65 and Falls E888.9 [facility] [id number] [place] [address] 05388- 3760 Apr, Type 2 diabetes mellitus with hyperglycemia E11.65 [facility] [id number] [place] [address] 06063- 0902 Apr, [facility] [id number] [place] [address] 11079- 0538 Apr, Type 2 diabetes mellitus with hyperglycemia E11.65 [facility] [id number] [place] [address] 00834- 8678 Apr, [facility] [id number] [place] [address] 35765- 0016 Mar, Type 2 diabetes mellitus with diabetic polyneuropathy E11.42 ; Bilateral low back pain without sciatica M54.5 and Dry nose J34.89 [facility] [id number] [place] [address] 50851- 7165 Mar, Palpitations R00.2 ; Syncope R55 ; DM (diabetes mellitus) E11.9 and Obesity E66.9 [facility] [address] [address]- 1422 Mar, [facility] [id number] [place] [address] 43795- 7242 Mar, [facility] [id number] [place] [address] 26723- 3918 Mar, [facility] [id number] [place] [address] 68364- 0683 Feb, [facility] [address] [address]- 4507 14 Jan, 2015 [facility] [id number] [place] [address] 29728- 4499 Jan, [facility] [address] [address]- 1182 Jan, Falls E888.9 and Sinusitis 473.9 [facility] [address] 7939 Dec, [facility] [id number] [place] [address] 62690- 7733 Dec, [facility] [id number] [place] [address] 88958- 4106 Dec, [facility] [id number] [place] [address] 91521- 7665 Dec, [facility] [id number] [place] [address] 09956- 5026 Dec, Diabetes mellitus without mention of complication, type II or unspecified type, not stated as uncontrolled 250.00 and Shortness of breath 786.05 [facility] [address] [address]- 0553 Dec, [facility] [id number] [place] [address] 70858- 6017 Nov, [facility] [address] [address]- 3784 Nov, [facility] [address] [place] [address] 72512- 5723 Oct, Restrictive lung disease 518.89 [facility] [address] [address]- 7459 Oct, [facility] [address] [place] [address] 04271- 3277 Oct, Shortness of breath 786.05 [facility] [address] [address]- 5197 September, Other nonspecific abnormal finding of lung field 793.19 ; Diabetes mellitus without mention of complication, type II or unspecified type, not stated as uncontrolled 250.00 ; Hyperlipidemia LDL goal < 100 272.4 ; Narcolepsy, with cataplexy 347.01 ; Shortness of breath 786.05 and Chest pain 786.50 [facility] [id number] [place] [address] 40946- 3651 14 Aug, 2014 [facility] [id number] [place] [address] 03708- 1851 Aug, [facility] [id number] [place] [address] 01998- 6298 Jun, [facility] [id number] [place] [address] 46073- 2988 Jun, [facility] [id number] [place] [address] 31346- 2079 Jun, [facility] [id number] [place] [address] 38609- 0901 Jun, [facility] [id number] [place] [address] 85171- 3615 Jun, [facility] [id number] [place] [address] 03375- 1618 Jun, [facility] [id number] [place] [address] 13894- 8097 Jun, [facility] [id number] [place] [address] 47076- 6469 Jun, [facility] [id number] [place] [address] 93012- 6374 May, [facility] [id number] [place] [address] 29592- 3807 May, [facility] [id number] [place] [address] 49097- 6376 Apr, [facility] [id number] [place] [address] 82232- 1804 Apr, [facility] [place] [facility] [address] [id number] [place] [address]- 3441 Mar, [facility] [place] [facility] [address] [id number] [place] [address]- 9193 Mar, [facility] [place] [facility] [address] [id number] [place] [address]- 1499 Mar, [facility] [place] [facility] [address] [id number] [place] [address]- 2802 Mar, [facility] [place] [facility] [address] [id number] [place] [address]- 0085 Nov, [facility] [place] [facility] [address] [id number] [place] [address]- 2146 Nov, [facility] [place] [facility] [address] [id number] [place] [address]- 5384 Nov, [facility] [place] [facility] [address] [id number] [place] [address]- 7925 Nov, [facility] [place] [facility] [address] [id number] [place] [address]- 0735 Oct, [facility] [place] [facility] [address] [id number] [place] [address]- 0362 Oct, [facility] [place] [facility] [address] [id number] [place] [address]- 8939 Oct, [facility] [place] [facility] [address] [id number] [place] [address]- 8815 Oct, [facility] [place] [facility] [address] [id number] [place] [address]- 7961 Oct, [facility] [place] [facility] [address] [id number] [place] [address]- 6213 Oct, [facility] [place] [facility] [address] [id number] [place] [address]- 9065 Oct, [facility] [place] [facility] [address] [id number] [place] [address]- 7769 Oct, [facility] [place] [facility] [address] [id number] [place] [address]- 0415 Oct, [facility] [place] [facility] [address] [id number] [place] [address]- 9465 Oct, [facility] [place] [facility] [address] [id number] [place] [address]- 6949 September, [facility] [place] [facility] [address] [id number] [place] [address]- 7573 September, [facility] [place] [facility] [address] [id number] [place] [address]- 4710 Aug, [facility] [place] [facility] [address] [id number] [place] [address]- 7323 Aug, [facility] [place] [facility] [address] [id number] [place] [address]- 5543 Aug, [facility] [place] [facility] [address] [id number] [place] [address]- 1141 Aug, [facility] [place] [facility] [address] [id number] [place] [address]- 7059 Aug, [facility] [place] [facility] [address] [id number] [place] [address]- 4669 Aug, [facility] [place] [facility] [address] [id number] [place] [address]- 0705 Jul, [facility] [place] [facility] [address] [id number] [place] [address]- 8079 Jul, [facility] [place] [facility] [address] [id number] [place] [address]- 4451 Jul, [facility] [place] [facility] [address] [id number] [place] [address]- 9133 Jul, [facility] [place] [facility] [address] [id number] [place] [address]- 5441 Jul, [facility] [place] [facility] [address] [id number] [place] [address]- 0518 Jul, [facility] [place] [facility] [address] [id number] [place] [address]- 3368 Jul, [facility] [place] [facility] [address] [id number] [place] [address]- 9431 Jul, [facility] [place] [facility] [address] [id number] [place] [address]- 0069 Jul, [facility] [place] [facility] [address] [id number] [place] [address]- 3047 Jul, [facility] [place] [facility] [address] [id number] [place] [address]- 7951 Jul, [facility] [place] [facility] [address] [id number] [place] [address]- 1110 Jul, [facility] [place] [facility] [address] [id number] [place] [address]- 7168 Jul, [facility] [place] [facility] [address] [id number] [place] [address]- 5335 Jul, [facility] [place] [facility] [address] [id number] [place] [address]- 1490 Jul, [facility] [place] [facility] [address] [id number] [place] [address]- 1853 Jul, [facility] [place] [facility] [address] [id number] [place] [address]- 9017 Jun, [facility] [place] [facility] [address] [id number] [place] [address] Jun, [facility] [place] [facility] [address] [id number] [place] [address] Jun, [facility] [place] [facility] [address] [id number] [place] [address] Jun, [facility] [place] [facility] [address] [id number] [place] [address] 24 Jun, 2013 [facility] [place] [facility] [address] [id number] [place] [address] 24 Jun, 2013 [facility] [place] [facility] [address] [id number] [place] [address] 22 Jun, 2013 [facility] [place] [facility] [address] [facility] [id number] [place] [address] 22 Jun, 2013 [facility] [place] [facility] [address] [id number] [place] [address] 20 Jun, 2013 [facility] [place] [facility] [address] [id number] [place] [address] 20 Jun, 2013 [facility] [place] [facility] [address] [facility] [id number] [place] [address] 18 Jun, 2013 [facility] [place] [facility] [address] [facility] [id number] [place] [address] 18 Jun, 2013 [facility] [place] [facility] [address] [facility] [id number] [place] [address] 14 Jun, 2013 [facility] [place] [facility] [address] [facility] [id number] [place] [address] 13 Jun, 2013 [facility] [place] [facility] [address] [facility] [id number] [place] [address] 13 Jun, 2013 [facility] [place] [facility] [address] [facility] [id number] [place] [address] 13 Jun, 2013 [facility] [place] [facility] [address] [facility] [id number] [place] [address] 13 Jun, 2013 [facility] [place] [facility] [address] [facility] [facility] [id number] [place] [address] 12 Jun, 2013 [facility] [place] [facility] [address] [facility] [id number] [place] [address] 12 Jun, 2013 [facility] [place] [facility] [address] [facility] [id number] [place] [address] 11 Jun, 2013 [facility] [place] [facility] [address] [id number] [place] [address] Jun, 2013 [facility] [place] [facility] [address] [id number] [place] [address] Jun, 2013 [facility] [place] [facility] [address] [facility] [id number] [place] [address] Jun, 2013 [facility] [place] [facility] [address] [id number] [place] [address] Jun, 2013 [facility] [place] [facility] [address] [id number] [place] [address] Jun, 2013 [facility] [place] [facility] [address] [facility] [id number] [place] [address] Jun, 2013 [facility] [place] [facility] [address] [facility] [id number] [place] [address] Jun, 2013 [facility] [place] [facility] [address] [id number] [place] [address] Jun, 2013 [facility] [place] [facility] [address] [id number] [place] [address] Jun, 2013 [facility] [place] [facility] [address] [facility] [id number] [place] [address] Jun, [facility] [place] [facility] [address] [facility] [id number] [place] [address] May, [facility] [place] [facility] [address] [id number] [place] [address] May, [facility] [place] [facility] [address] [id number] [place] [address] May, [facility] [place] [facility] [address] [facility] [id number] [place] [address] May, [facility] [place] [facility] [address] [facility] [id number] [place] [address] May, [facility] [place] [facility] [address] [id number] [place] [address] 16 May, 2013 [facility] [place] [facility] [address] [id number] [place] [address] May, [facility] [place] [facility] [address] [id number] [place] [address] May, [facility] [place] [facility] [address] [id number] [place] [address] May, [facility] [place] [facility] [address] [id number] [place] [address] May, [facility] [place] [facility] [address] [id number] [place] [address] May, [facility] [place] [facility] [address] [id number] [place] [address] May, [facility] [place] [facility] [address] [id number] [place] [address] May, [facility] [place] [facility] [address] [id number] [place] [address] May, [facility] [place] [facility] [address] [id number] [place] [address] May, [facility] [place] [facility] [address] [id number] [place] [address] Apr, [facility] [place] [facility] [address] [id number] [place] [address] Apr, [facility] [place] [facility] [address] [id number] [place] [address] 14 Dec, 2012 [facility] [place] [facility] [address] [id number] [place] [address] 08 Nov, 2012 [facility] [place] [facility] [address] [id number] [place] [address] 10 May, 2012 [facility] [place] [facility] [address] [id number] [place] [address] Apr, [facility] [address] [facility] [id number] [place] [address] Apr, [facility] [address] [facility] [id number] [address] Apr, [facility] [address] [facility] [id number] [place] [address] Apr, IMMUNIZATIONS No Known Immunizations SOCIAL HISTORY Never Assessed REASON FOR VISIT 6 week f/u. Consult Dr. Borden; Stoney RT(R) PLAN OF CARE Activity Details Follow Up 4 Weeks Reason: VITAL SIGNS Height 64 in 2016-12-21 Blood pressure systolic 128 mmHg 2016-12-21 Blood pressure diastolic 88 mmHg 2016-12-21 MEDICATIONS Unknown Medications RESULTS No Results PROCEDURES Procedure Date Ordered Result Body Site INJ TENDON SHEATH/LIGAMENT Dec 21, 2016 DEPO MEDROL 80 MG/ML Dec 21, 2016 INSTRUCTIONS MEDICATIONS ADMINISTERED No Known Medications MEDICAL (GENERAL) HISTORY Type Description Date Medical History asthma Medical History type II diabetes Medical History sleep apnea Medical History narcolepsy Surgical History hysterectomy Hospitalization History Chest pain-[facility] 02/27/17
--- OUTSIDE RECORDS SUMMARY | 2017-12-01 19:13 | XMS REPORT ---
Author Author RENAY HICKS [facility] Address [address] 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 Name Role Phone HICKSCYNTHIAAN Unavailable PROBLEMS Type Condition ICD9-CM Code MUS49-TB Code Onset Dates Condition Status SNOMED Code Problem Right carpal tunnel syndrome G56.01 Active 87045150 Problem Gastroesophageal reflux disease with esophagitis K21.0 Active 106204874 Problem Falls frequently R29.6 Active 790272331 Problem Porokeratosis Q82.8 Active 323335849 Problem Posterior subcapsular age-related cataract of both eyes H25.043 Active 9575345 Problem Non-alcoholic fatty liver disease K76.0 Active 114978168 Problem Delayed gastric emptying K30 Active 542340051 Problem Pain in left foot M79.672 Active 9691643 Problem Other chronic pain G89.29 Active 24055460 Problem Tarsal tunnel syndrome of left side G57.52 Active 36297205 Problem Obesity E66.9 Active 533060410 Problem Hypermetropia, bilateral H52.03 Active 35347128 Problem Type 2 diabetes mellitus with hyperglycemia E11.65 Active 90419303 Problem Nuclear cataract of both eyes H25.13 Active 55413075 Problem Presbyopia OU H52.4 Active 67270400 Problem Obstructive sleep apnea G47.33 Active 28136598 Problem Shortness of breath R06.02 Active 538292286 Problem Type 2 diabetes mellitus with diabetic polyneuropathy E11.42 Active 66149774 Problem Lung nodule R91.1 Active 403228053 Problem Mixed hyperlipidemia E78.2 Active 891730552 Problem Primary narcolepsy with cataplexy G47.411 Active 759296348 ALLERGIES No Information ENCOUNTERS Encounter Location Date Diagnosis [facility] [address] [facility] [id number] [address] Nov, [facility] [address] [place] [id number] [place] [address] 84845- 5748 Nov, [facility] [address], [place] [address] 7935 Oct, [facility] [address] [place] [id number] [place] [address] 36658- 9814 Oct, [facility] [id number] [place] [address] 72583- 8013 September, [facility] [id number] [place] [address] 50787- 4103 September, Type 2 diabetes mellitus with hyperglycemia E11.65 [facility] [address] [place] [id number] [place] [address] 62307- 8150 September, Type 2 diabetes mellitus with hyperglycemia E11.65 [place] [address] [place] [id number] [place] [address] 24836- 0549 September, Porokeratosis Q82.8 and Type 2 diabetes mellitus with diabetic polyneuropathy E11.42 [facility] [id number] [place] [address] 03141 -5107 Aug, Seasonal allergic rhinitis, unspecified trigger J30.2 [facility] [id number] [place] [address] 05926- 7617 Aug, [facility] [id number] [place] [address] 05885- 7242 Aug, [facility] [id number] [place] [address] [id number] Aug, Dental examination V72.2 and Dental examination Z01.20 [facility] [id number] [place] [address] 38682- 5148 Aug, Dental examination Z01.20 and Dental caries K02.9 [facility] [id number] [place] [address] 04344- 9309 Aug, Obstructive sleep apnea G47.33 ; Obesity E66.9 ; Type 2 diabetes mellitus with hyperglycemia E11.65 ; Palpitations R00.2 and Corns and callosities L84 [place] [address] 02720- 8141 Jul, [place] [address] 65536- 7300 Jul, [place] [address] 32322- 4535 Jun, Type 2 diabetes mellitus with hyperglycemia E11.65 ; Colon cancer screening Z12.11 ; Mixed hyperlipidemia E78.2 ; Non-alcoholic fatty liver disease K76.0 ; Gastroesophageal reflux disease with esophagitis K21.0 and Pain of upper abdomen R10.10 [place] [address] 08110- 1589 09 Jun, 2017 Falls frequently R29.6 [facility] [place] [address] 88708 -2912 May, Infection of nose J34.89 [place] [address] 86488- 4521 May, Bilateral low back pain without sciatica M54.5 [place] [address] 69741- 2246 May, Type 2 diabetes mellitus with diabetic polyneuropathy E11.42 ; Obstructive sleep apnea G47.33 and Type 2 diabetes mellitus with hyperglycemia E11.65 [place] [address] 01384- 2587 Apr, Bilateral low back pain without sciatica M54.5 [place] [address] 93561- 9887 Apr, Mixed hyperlipidemia E78.2 and Type 2 diabetes mellitus with hyperglycemia E11.65 [place] [address] [place] [id number] [place] [address] 29167- 7496 Apr, Type 2 diabetes mellitus with diabetic polyneuropathy E11.42 [place] [address] 42083- 8054 Apr, [facility] [id number] [place] [address] 24296- 0682 Apr, Skin lesion of left arm L98.9 and Skin lesion of left leg L98.9 [facility] [id number] [place] [address] 50761- 5045 Mar, Bilateral low back pain without sciatica M54.5 [facility] [address] 43541- 9415 Mar, Plantar fasciitis of left foot M72.2 ; Bursitis of left foot M71.572 and Type 2 diabetes mellitus with diabetic polyneuropathy E11.42 [place] [address] 89792- 8996 Feb, Non-alcoholic fatty liver disease K76.0 ; Keratoacanthoma L85.8 ; Seborrheic keratosis L82.1 ; Type 2 diabetes mellitus with hyperglycemia E11.65 and Nuclear cataract of both eyes H25.13 [facility] [address] [id number] Feb, [facility] [address] 08529- 5894 Feb, [facility] [id number] [place] [address] 07935- 8265 Feb, [facility] [address] 13794- 0240 Feb, Type 2 diabetes mellitus with hyperglycemia E11.65 ; Back muscle spasm M62.830 and Encounter for immunization Z23 [facility] [address] 42822- 3955 Jan, Plantar fasciitis of left foot M72.2 [facility] [address] 00172- 8101 Dec, [facility] [address] 27735- 7600 Dec, Plantar fasciitis of left foot M72.2 and Tarsal tunnel syndrome of left side G57.52 [place] [address] [place] [id number] [place] [address] 71757- 2069 Dec, [facility] [address] [id number] [place] [address] 27078 -3015 Nov, Mary Jane rash of groin B37.89 and Rash and nonspecific skin eruption R21 [facility] [address] [place] [id number] [place] [address] 94298- 3126 Nov, [place] [address] 58691- 0578 Oct, Type 2 diabetes mellitus with hyperglycemia E11.65 and Mixed hyperlipidemia E78.2 [place] [address] 13415- 6697 Oct, [place] [address] 67085- 4284 Oct, Chest pain, unspecified R07.9 ; Palpitations R00.2 ; Syncope R55 and Mixed hyperlipidemia E78.2 [place] [address] 56609- 3496 Oct, Plantar fasciitis, bilateral M72.2 and Type 1 diabetes mellitus with diabetic neuropathy E10.40 [place] [address] [place] [id number] [place] [address] 29165- 3420 Oct, [place] [address] [place] [id number] [place] [address] 85498- 8031 September, Type 2 diabetes mellitus with hyperglycemia E11.65 [place] [address] 53170- 7087 September, Type 2 diabetes mellitus with hyperglycemia E11.65 ; Type 2 diabetes mellitus with diabetic polyneuropathy E11.42 ; Gastroesophageal reflux disease with esophagitis K21.0 and Headache, unspecified headache type R51 [place] [address] [place] [address]- 5357 September, [facility] [address] [id number], [place] [address]- 6292 September, [facility] [address] [place] [address] [id number] [place] [address] 82027- 0675 September, [facility] [id number] [place] [address] 77287- 0046 September, Other chest pain R07.89 ; Heart palpitations R00.2 ; Mixed hyperlipidemia E78.2 and Obesity E66.9 [facility] [address] [id number] [place] [address] 71078- 9752 Aug, [facility] [id number] [place] [address] 10303- 0977 Aug, Type 2 diabetes mellitus with diabetic polyneuropathy E11.42 and Type 2 diabetes mellitus with hyperglycemia E11.65 [facility] [address] [id number] [place] [address] 62185- 0117 Aug, [facility] [id number] [place] [address] 35537- 6283 Aug, [facility] [id number] [place] [address] 02651- 5475 Aug, [facility] [address] [id number], [place] [address]- 5493 Aug, Type 2 diabetes mellitus with hyperglycemia E11.65 [facility] [address], [place] [address]- 5833 Aug, [facility] [id number] [place] [address] 77587- 7214 Jul, Type 2 diabetes mellitus with diabetic polyneuropathy E11.42 [facility] [address], [place] [address]- 2716 Jul, Type 2 diabetes mellitus with hyperglycemia E11.65 [facility] [id number] [place] [address] 54365- 5980 Jul, [facility] [address], [place] [address]- 4971 Jul, [facility] [id number] [place] [address] 81782- 3129 Jul, [facility] [id number] [place] [address] 27796- 8822 Jul, Type 2 diabetes mellitus with diabetic polyneuropathy E11.42 and Type 2 diabetes mellitus with hyperglycemia E11.65 [facility] [id number] [place] [address] 99094- 3955 Jun, Obstructive sleep apnea G47.33 [facility] [address] [id number] [place] [address] 43491- 5056 Jun, Type 2 diabetes mellitus with diabetic polyneuropathy E11.42 ; Primary narcolepsy with cataplexy G47.411 ; Abdominal bloating R14.0 ; Other chest pain R07.89 and Vision problems H54.7 [facility] [address], [place] [address]- 5163 Jun, [facility] [address] [id number] [place] [address] 97296- 5048 May, [facility] [address] [id number] [place] [address] 06738- 1821 Apr, [facility] [address] [place] [id number] [place] [address] 54380- 7474 Apr, Plantar fasciitis of left foot M72.2 [facility] [address], [place] [address]- 9713 Mar, [facility] [address] [id number] [place] [address] 14472- 8099 Mar, Plantar fasciitis of left foot M72.2 and Type 2 diabetes mellitus with diabetic polyneuropathy E11.42 [facility] [address] [place] [id number] [place] [address] 24826- 4485 Feb, Type 2 diabetes mellitus with hyperglycemia E11.65 ; Mixed hyperlipidemia E78.2 and Encounter for immunization Z23 [facility] [address] [place] [id number] [place] [address] 50074- 0463 Feb, [facility] [address] [place] [id number] [place] [address] 08485- 3019 Feb, [facility] [address] 38800- 9234 Feb, Type 2 diabetes mellitus with hyperglycemia E11.65 [place] [address] [place] [id number] [place] [address] 94652- 1486 Feb, Type 2 diabetes mellitus with hyperglycemia E11.65 [place] [address] [place] [id number] [place] [address] 99916- 4529 Jan, [place] [address] 02949- 4145 Dec, Pain in left foot M79.672 ; Other chronic pain G89.29 ; Type 2 diabetes mellitus with hyperglycemia E11.65 ; Obstructive sleep apnea G47.33 ; Falls frequently R29.6 ; Mixed hyperlipidemia E78.2 and Gastroesophageal reflux disease with esophagitis K21.0 [place] [address] [place] [id number] [place] [address] 20271- 2408 Nov, [place] [address] [place] [id number] [place] [address] 41829- 6321 Oct, Type 2 diabetes mellitus with diabetic polyneuropathy E11.42 [place] [address] [place] [id number] [place] [address] 75325- 0263 Oct, [place] [address] [place] [id number] [place] [address] 59835- 7069 Oct, [facility] [address] [place] [id number] [place] [address] 32859- 0402 September, [facility] [address] [place] [id number] [place] [address] 77852- 6912 September, [facility] [address], [place] [address]- 3728 September, [facility] [address]- 0646 September, [facility] [address] 5650 September, [facility] [address] [place] [id number] [place] [address] 83654- 5031 Aug, Type 2 diabetes mellitus with hyperglycemia E11.65 ; Mixed hyperlipidemia E78.2 and Right carpal tunnel syndrome G56.01 [facility] [id number], [place] [address]- 5945 Aug, [facility] [id number], [place] [address]- 1590 Jul, [facility] [address] [place] [id number] [place] [address] 42159- 3972 Jun, [facility] [address], [place] [address]- 1492 Jun, [facility] [address], [place] [address]- 1036 May, [facility] [address], [place] [address]- 6187 May, [facility] [address], [place] [address]- 4589 May, Type 2 diabetes mellitus with hyperglycemia E11.65 and Falls E888.9 [facility] [address], [place] [address]- 3233 Apr, Type 2 diabetes mellitus with hyperglycemia E11.65 [facility] [address], [place] [address]- 7858 Apr, [facility] [address], [place] [address]- 0971 Apr, Type 2 diabetes mellitus with hyperglycemia E11.65 [facility] [address] [place] [id number] [place] [address] 06587- 3642 Apr, [facility] [address] 98686- 3350 Mar, Type 2 diabetes mellitus with diabetic polyneuropathy E11.42 ; Bilateral low back pain without sciatica M54.5 and Dry nose J34.89 [facility] [address] 31856- 3736 Mar, Palpitations R00.2 ; Syncope R55 ; DM (diabetes mellitus) E11.9 and Obesity E66.9 [facility] [address] 18597- 5638 Mar, [facility] [address] 02761- 5539 Mar, [facility] [address] 04546- 9419 Mar, [facility] [address] [place] [id number] [place] [address] 39934- 0028 Feb, [facility] [address] [place] [address] [id number] [place] [address] 78602- 0785 Jan, [facility] [address] [place] [id number] [place] [address] 16923- 0238 Jan, [facility] [address] [place] [address] [id number] [place] [address] 30927- 4039 Jan, Falls E888.9 and Sinusitis 473.9 [facility] [address] [place] [id number] [place] [address] 94134- 4355 Dec, [facility] [address] [place] [id number] [place] [address] 29026- 8089 Dec, [facility] [address] [place] [id number] [place] [address] 06512- 2106 Dec, [facility] [address], [place] [address]- 5515 Dec, [facility] [address] [place] [id number] [place] [address] 49796- 4604 Dec, Diabetes mellitus without mention of complication, type II or unspecified type, not stated as uncontrolled 250.00 and Shortness of breath 786.05 [facility] [address] [place] [id number] [place] [address] 63102- 3179 Dec, [facility] [address] [place] [id number] [place] [address] 68911- 8817 Nov, [facility] [address] [place] [id number] [place] [address] 61038- 4647 Nov, [facility] [address] [place] [id number] [place] [address] 17573- 8870 Oct, Restrictive lung disease 518.89 [place] [address] [place] [id number] [place] [address] 36732- 9330 Oct, [facility] [address] [place] [id number] [place] [address] 51709- 6799 Oct, Shortness of breath 786.05 [place] [address] [place] [id number] [place] [address] 25773- 6401 September, Other nonspecific abnormal finding of lung field 793.19 ; Diabetes mellitus without mention of complication, type II or unspecified type, not stated as uncontrolled 250.00 ; Hyperlipidemia LDL goal < 100 272.4 ; Narcolepsy, with cataplexy 347.01 ; Shortness of breath 786.05 and Chest pain 786.50 [place] [address] [place] [id number] [place] [address] 12638- 1869 Aug, [facility] [address] [place] [id number] [place] [address] 75875- 1157 Aug, [facility] [id number] [place] [address] 51923- 9910 Jun, [facility] [place] [facility] [address] [id number] [place] [address]- 9258 16 Jun, 2014 [facility] [place] [facility] [address] [id number] [place] [address]- 4610 Jun, 2014 [facility] [place] [facility] [address] [id number] [place] [address]- 0686 Jun, 2014 [facility] [place] [facility] [address] [id number] [place] [address]- 3674 Jun, 2014 [facility] [place] [facility] [address] [id number] [place] [address]- 5765 Jun, 2014 [facility] [place] [facility] [address] [id number] [place] [address]- 8312 Jun, 2014 [facility] [place] [facility] [address] [facility] [id number] [place] [address]- 9905 Jun, 2014 [facility] [place] [facility] [address] [facility] [id number] [place] [address]- 3617 May, [facility] [place] [facility] [address] [facility] [id number] [place] [address]- 4093 May, [facility] [place] [facility] [address] [facility] [id number] [place] [address]- 2932 Apr, [facility] [place] [facility] [address] [facility] [id number] [address]- 1579 Apr, [facility] [place] [facility] [address] [id number], [place] [address]- 4539 Mar, [facility] [place] [facility] [address] [id number] [place] [address]- 9410 Mar, [facility] [place] [facility] [address] [id number] [place] [address]- 3080 Mar, [facility] [place] [facility] [address] [facility] [id number], [place] [address]- 0783 Mar, [facility] [place] [facility] [address] [id number], [place] [address]- 8929 Nov, [facility] [place] [facility] [address] [id number] [place] [address]- 5393 Nov, [facility] [place] [facility] [address] [id number] [place] [address]- 9850 Nov, [facility] [place] [facility] [address] [id number] [place] [address]- 3167 Nov, [facility] [place] [facility] [address] [id number] [place] [address]- 5633 Oct, [facility] [place] [facility] [address] [id number] [place] [address]- 3919 Oct, [facility] [place] [facility] [address] [id number] [place] [address]- 5876 Oct, [facility] [place] [facility] [address] [id number] [place] [address]- 5630 Oct, [facility] [place] [facility] [address] [id number] [place] [address]- 3285 Oct, [facility] [place] [facility] [address] [id number] [place] [address]- 0504 Oct, [facility] [place] [facility] [address] [id number] [place] [address]- 6801 Oct, [facility] [place] [facility] [address] [id number] [place] [address]- 7312 Oct, [facility] [place] [facility] [address] [id number] [place] [address]- 8901 Oct, [facility] [place] [facility] [address] [id number] [place] [address]- 4012 Oct, [facility] [place] [facility] [address] [id number] [place] [address]- 9783 September, [facility] [place] [facility] [address] [id number] [place] [address]- 8946 September, [facility] [place] [facility] [address] [id number] [place] [address]- 2923 Aug, [facility] [place] [facility] [address] [id number] [place] [address]- 4316 Aug, [facility] [place] [facility] [address] [id number] [place] [address]- 5696 Aug, [facility] [place] [facility] [address] [id number] [place] [address] Aug, [facility] [place] [facility] [address] [id number] [place] [address] Aug, [facility] [place] [facility] [address] [id number] [place] [address] Aug, [facility] [place] [facility] [address] [id number] [place] [address] Jul, [facility] [place] [facility] [address] [id number] [place] [address] Jul, [facility] [place] [facility] [address] [id number] [place] [address] Jul, [facility] [place] [facility] [address] [id number] [place] [address] Jul, [facility] [place] [facility] [address] [id number] [place] [address] Jul, [facility] [place] [facility] [address] [id number] [place] [address] Jul, [facility] [place] [facility] [address] [id number] [place] [address] Jul, [facility] [place] [facility] [address] [id number] [place] [address] Jul, [facility] [place] [facility] [address] [id number] [place] [address] Jul, [facility] [place] [facility] [address] [id number] [place] [address] Jul, [facility] [place] [facility] [address] [id number] [place] [address] Jul, [facility] [place] [facility] [address] [id number] [place] [address] Jul, [facility] [place] [facility] [address] [id number] [place] [address] Jul, [facility] [place] [facility] [address] [id number] [place] [address] Jul, [facility] [place] [facility] [address] [id number] [place] [address] Jul, [facility] [place] [facility] [address] [id number] [place] [address] Jul, [facility] [place] [facility] [address] [facility] [id number] [place] [address] Jun, [facility] [place] [facility] [address] [id number] [place] [address] Jun, [facility] [place] [facility] [address] [id number] [place] [address] Jun, [facility] [place] [facility] [address] [facility] [facility] [id number] [place] [address] Jun, [facility] [place] [facility] [address] [facility] [id number] [place] [address] Jun, [facility] [place] [facility] [address] [id number] [place] [address] Jun, [facility] [place] [facility] [address] [id number] [place] [address] Jun, [facility] [place] [facility] [address] [facility] [id number] [place] [address] Jun, [facility] [place] [facility] [address] [facility] [id number] [place] [address] Jun, [facility] [place] [facility] [address] [id number] [place] [address]78 20 Jun, 2013 [facility] [place] [facility] [address] [id number] [place] [address] 18 Jun, 2013 [facility] [place] [facility] [address] [id number] [place] [address] 18 Jun, 2013 [facility] [place] [facility] [address] [id number] [place] [address] 14 Jun, 2013 [facility] [place] [facility] [address] [id number] [place] [address] 13 Jun, 2013 [facility] [place] [facility] [address] [id number] [place] [address] 9662 13 Jun, 2013 [facility] [place] [facility] [address] [facility] [id number] [place] [address] 13 Jun, 2013 [facility] [place] [facility] [address] [id number] [place] [address] 9576 13 Jun, 2013 [facility] [place] [facility] [address] [facility] [id number] [place] [address]473 12 Jun, 2013 [facility] [place] [facility] [address] [facility] [id number] [place] [address]- 74[address] 12 Jun, 2013 [facility] [place] [facility] [address] [facility] [id number] [place] [address] Jun, [facility] [place] [facility] [address] [id number] [place] [address] 2547 Jun, [facility] [place] [facility] [address] [facility] [id number] [place] [address]- 0019 10 Jun, 2013 [facility] [place] [facility] [address] [id number] [place] [address]- 1450 07 Jun, 2013 [facility] [place] [facility] [address] [facility] [id number] [place] [address]- [address] 07 Jun, 2013 [facility] [place] [facility] [address] [id number] [place] [address]- [address]237 06 Jun, 2013 [facility] [place] [facility] [address] [id number] [place] [address] Jun, [facility] [place] [facility] [address] [id number] [place] [address]- 1316 Jun, [facility] [place] [facility] [address] [id number] [place] [address]- 9916 Jun, [facility] [place] [facility] [address] [id number] [place] [address]- 9565 Jun, [facility] [place] [facility] [address] [id number] [place] [address]- 9945 Jun, [facility] [place] [facility] [address] [id number] [place] [address]494 May, [facility] [place] [facility] [address] [id number] [place] [address]- [address]252 May, [facility] [place] [facility] [address] [id number] [place] [address] May, [facility] [place] [facility] [address] [id number] [place] [address]139 May, [facility] [place] [facility] [address] [id number] [place] [address]- 4[address] May, [facility] [place] [facility] [address] [id number] [place] [address]- 1434 May, [facility] [place] [facility] [address] [id number] [place] [address] 4954 May, [facility] [place] [facility] [address] [id number] [place] [address]- 8484 May, [facility] [place] [facility] [address] [id number] [place] [address]40 May, [facility] [place] [facility] [address] [id number] [place] [address]- 2026 May, [facility] [address] [id number] [address] May, [facility] [address] [facility] [id number], [place] [address] May, [facility] [id number], [place] [address] May, [facility] [id number] [place] [address] May, [facility] [id number] [place] [address] May, [facility] [id number] [place] [address] Apr, [facility] [id number] [place] [address] Apr, [facility] [id number], [place] [address] Dec, [facility] [id number] [place] [address] Nov, [facility] [id number] [place] [address] May, [facility] [id number], [place] [address] Apr, [facility] [id number] [place] [address] Apr, [facility] [id number] [address] [address] Apr, [facility] [id number] [address] Apr, IMMUNIZATIONS No Known Immunizations SOCIAL HISTORY Never Assessed REASON FOR VISIT PT follow-up PLAN OF CARE Activity Details Follow Up 3 Weeks Reason:F/U PT VITAL SIGNS MEDICATIONS Unknown Medications RESULTS No Results PROCEDURES Procedure Date Ordered Result Body Site THERAPEUTIC EXERCISES Apr 24, 2017 INSTRUCTIONS MEDICATIONS ADMINISTERED No Known Medications MEDICAL (GENERAL) HISTORY Type Description Date Medical History asthma Medical History type II diabetes Medical History sleep apnea Medical History narcolepsy Surgical History hysterectomy Hospitalization History Chest pain-[facility] 02/27/17
--- OUTSIDE RECORDS SUMMARY | 2017-12-01 19:14 | XMS REPORT ---
Author Author TAWANA QUINTEN [facility] Address [address] [place] [address] Care Team Providers Care Client Service Supervisor Name Role Phone TAWANA QUINTEN Unavailable PROBLEMS Type Condition ICD9-CM Code XLC80-ZO Code Onset Dates Condition Status SNOMED Code Problem Right carpal tunnel syndrome G56.01 Active 01156693 Problem Gastroesophageal reflux disease with esophagitis K21.0 Active 423279212 Problem Falls frequently R29.6 Active 379330598 Problem Porokeratosis Q82.8 Active 819151530 Problem Posterior subcapsular age-related cataract of both eyes H25.043 Active 3302048 Problem Non-alcoholic fatty liver disease K76.0 Active 684925556 Problem Delayed gastric emptying K30 Active 456741578 Problem Pain in left foot M79.672 Active 9601308 Problem Other chronic pain G89.29 Active 95561152 Problem Tarsal tunnel syndrome of left side G57.52 Active 49631035 Problem Obesity E66.9 Active 371111107 Problem Hypermetropia, bilateral H52.03 Active 16291664 Problem Type 2 diabetes mellitus with hyperglycemia E11.65 Active 33745784 Problem Nuclear cataract of both eyes H25.13 Active 57415163 Problem Presbyopia OU H52.4 Active 99898915 Problem Obstructive sleep apnea G47.33 Active 71910798 Problem Shortness of breath R06.02 Active 336867281 Problem Type 2 diabetes mellitus with diabetic polyneuropathy E11.42 Active 13652668 Problem Lung nodule R91.1 Active 431431932 Problem Mixed hyperlipidemia E78.2 Active 843246757 Problem Primary narcolepsy with cataplexy G47.411 Active 413642209 ALLERGIES No Information ENCOUNTERS Encounter Location Date Diagnosis [facility] [address] [facility] [id number] [address] Nov, [facility] [id number] [place] [address] 02308- 6106 Oct, [facility] [id number] [place] [address] 41150- 9528 September, [facility] [id number] [place] [address] 54228- 5362 September, Type 2 diabetes mellitus with hyperglycemia E11.65 [facility] [address] 99796- 4096 September, Type 2 diabetes mellitus with hyperglycemia E11.65 [facility] [id number] [place] [address] 53444- 5056 September, Porokeratosis Q82.8 and Type 2 diabetes mellitus with diabetic polyneuropathy E11.42 [facility] [id number] [place] [address] 88937 -0126 Aug, Seasonal allergic rhinitis, unspecified trigger J30.2 [place] [facility] [address] 47061- 6866 Aug, [facility] [id number] [place] [address] 90637- 8516 Aug, [facility] [id number] [place] [address] [id number] Aug, Dental examination V72.2 and Dental examination Z01.20 [facility] [id number] [place] [address] 48827- 0266 Aug, Dental examination Z01.20 and Dental caries K02.9 [facility] [id number] [place] [address] 16827- 5953 Aug, Obstructive sleep apnea G47.33 ; Obesity E66.9 ; Type 2 diabetes mellitus with hyperglycemia E11.65 ; Palpitations R00.2 and Corns and callosities L84 [facility] [id number] [place] [address] 32198- 7940 Jul, [facility] [address] 44337- 7909 Jul, [place] [id number] [place] [address] 47242- 4544 Jun, Type 2 diabetes mellitus with hyperglycemia E11.65 ; Colon cancer screening Z12.11 ; Mixed hyperlipidemia E78.2 ; Non-alcoholic fatty liver disease K76.0 ; Gastroesophageal reflux disease with esophagitis K21.0 and Pain of upper abdomen R10.10 [place] [id number] [place] [address] 36677- 1563 09 Jun, 2017 Falls frequently R29.6 [facility] [id number] [place] [address] 59278 -5647 May, Infection of nose J34.89 [facility] [facility] [id number] [place] [address] 12607- 8127 May, Bilateral low back pain without sciatica M54.5 [facility] [facility] [id number] [place] [address] 60581- 6633 May, Type 2 diabetes mellitus with diabetic polyneuropathy E11.42 ; Obstructive sleep apnea G47.33 and Type 2 diabetes mellitus with hyperglycemia E11.65 [facility] [facility] [id number] [place] [address] 47366- 7301 Apr, Bilateral low back pain without sciatica M54.5 [facility] [facility] [id number] [place] [address] 59909- 8565 Apr, Mixed hyperlipidemia E78.2 and Type 2 diabetes mellitus with hyperglycemia E11.65 [facility] [id number] [place] [address] 40509- 0624 Apr, Type 2 diabetes mellitus with diabetic polyneuropathy E11.42 [facility] [id number] [place] [address] 95485- 2460 Apr, [facility] [facility] [id number] [place] [address] 68910- 0960 Apr, Skin lesion of left arm L98.9 and Skin lesion of left leg L98.9 [facility] [id number] [place] [address] 31316- 7960 Mar, Bilateral low back pain without sciatica M54.5 [facility] [id number] [place] [address] 67022- 9979 Mar, Plantar fasciitis of left foot M72.2 ; Bursitis of left foot M71.572 and Type 2 diabetes mellitus with diabetic polyneuropathy E11.42 [place] [address] 98378- 7228 Feb, Non-alcoholic fatty liver disease K76.0 ; Keratoacanthoma L85.8 ; Seborrheic keratosis L82.1 ; Type 2 diabetes mellitus with hyperglycemia E11.65 and Nuclear cataract of both eyes H25.13 [facility] [address] [id number] Feb, [place] [address] 34827- 2969 Feb, [facility] [address] 55546- 6343 Feb, [place] [address] 13238- 6303 Feb, Type 2 diabetes mellitus with hyperglycemia E11.65 ; Back muscle spasm M62.830 and Encounter for immunization Z23 [facility] [address] 03561- 3887 Jan, Plantar fasciitis of left foot M72.2 [facility] [id number] [place] [address] 29636- 7260 Dec, [facility] [address] 46044- 6664 Dec, Plantar fasciitis of left foot M72.2 and Tarsal tunnel syndrome of left side G57.52 [facility] [address] 58225- 5706 Dec, [facility] [id number] [place] [address] 18800 -7417 Nov, Mary Jane rash of groin B37.89 and Rash and nonspecific skin eruption R21 [facility] [id number] [place] [address] 96198- 9439 Nov, [facility] [id number] [place] [address] 85392- 5983 Oct, Type 2 diabetes mellitus with hyperglycemia E11.65 and Mixed hyperlipidemia E78.2 [facility] [id number] [place] [address] 06054- 6808 Oct, [facility] [address] 57846- 6643 Oct, Chest pain, unspecified R07.9 ; Palpitations R00.2 ; Syncope R55 and Mixed hyperlipidemia E78.2 [place] [id number] [place] [address] 25405- 4308 Oct, Plantar fasciitis, bilateral M72.2 and Type 1 diabetes mellitus with diabetic neuropathy E10.40 [place] [address] 48266- 5029 Oct, [place] [id number] [place] [address] 98292- 7941 September, Type 2 diabetes mellitus with hyperglycemia E11.65 [facility] [id number] [place] [address] 07448- 4748 September, Type 2 diabetes mellitus with hyperglycemia E11.65 ; Type 2 diabetes mellitus with diabetic polyneuropathy E11.42 ; Gastroesophageal reflux disease with esophagitis K21.0 and Headache, unspecified headache type R51 [facility] [id number] [place] [address] 88679- 4877 September, [facility] [id number] [place] [address] 23713- 8983 September, [facility] [address] [place] [address]- 6603 September, [facility] [id number] [place] [address] 06164- 3850 September, Other chest pain R07.89 ; Heart palpitations R00.2 ; Mixed hyperlipidemia E78.2 and Obesity E66.9 [facility] [id number] [place] [address] 23744- 5067 Aug, [facility] [id number] [place] [address] 37441- 7094 Aug, Type 2 diabetes mellitus with diabetic polyneuropathy E11.42 and Type 2 diabetes mellitus with hyperglycemia E11.65 [facility] [id number] [place] [address] 71235- 9479 Aug, [facility] [id number] [place] [address] 86919- 4092 Aug, [facility] [id number] [place] [address] 81852- 7002 Aug, [facility] [id number] [place] [address] 85060- 2213 Aug, Type 2 diabetes mellitus with hyperglycemia E11.65 [facility] [id number] [place] [address] 40368- 0217 Aug, [facility] [id number] [place] [address] 02116- 4434 Jul, Type 2 diabetes mellitus with diabetic polyneuropathy E11.42 [facility] [id number] [place] [address] 08345- 3028 Jul, Type 2 diabetes mellitus with hyperglycemia E11.65 [facility] [id number] [place] [address] 78953- 3114 Jul, [facility] [id number] [place] [address] 54989- 8180 Jul, [facility] [id number] [place] [address] 83809- 9098 Jul, [place] [id number] [place] [address] 23689- 4267 Jul, Type 2 diabetes mellitus with diabetic polyneuropathy E11.42 and Type 2 diabetes mellitus with hyperglycemia E11.65 [place] [id number] [place] [address] 89283- 6371 Jun, Obstructive sleep apnea G47.33 [place] [address] 71069- 9416 Jun, Type 2 diabetes mellitus with diabetic polyneuropathy E11.42 ; Primary narcolepsy with cataplexy G47.411 ; Abdominal bloating R14.0 ; Other chest pain R07.89 and Vision problems H54.7 [place] [id number] [place] [address] 99399- 8421 Jun, [place] [address] 73908- 8470 May, [place] [id number] [place] [address] 59340- 5514 Apr, [place] [address] 34308- 9919 Apr, Plantar fasciitis of left foot M72.2 [place] [id number] [place] [address] 70379- 7891 Mar, [place] [address] 20679- 9022 Mar, Plantar fasciitis of left foot M72.2 and Type 2 diabetes mellitus with diabetic polyneuropathy E11.42 [place] [address] 54794- 8130 14 Feb, 2016 Type 2 diabetes mellitus with hyperglycemia E11.65 ; Mixed hyperlipidemia E78.2 and Encounter for immunization Z23 [place] [address] 59787- 1414 Feb, [facility] [address] [address]- 2183 Feb, [facility] [id number] [place] [address] 23622- 0446 Feb, Type 2 diabetes mellitus with hyperglycemia E11.65 [facility] [id number] [place] [address] 22096- 1630 Feb, Type 2 diabetes mellitus with hyperglycemia E11.65 [facility] [id number] [place] [address] 75400- 9664 Jan, [facility] [id number] [place] [address] 86920- 0027 Dec, Pain in left foot M79.672 ; Other chronic pain G89.29 ; Type 2 diabetes mellitus with hyperglycemia E11.65 ; Obstructive sleep apnea G47.33 ; Falls frequently R29.6 ; Mixed hyperlipidemia E78.2 and Gastroesophageal reflux disease with esophagitis K21.0 [facility] [id number] [place] [address] 17201- 6319 Nov, [facility] [id number] [place] [address] 84721- 5564 Oct, Type 2 diabetes mellitus with diabetic polyneuropathy E11.42 [facility] [id number] [place] [address] 30716- 5283 Oct, [facility] [id number] [place] [address] 10467- 9291 Oct, [facility] [address] [address]- 6418 September, [facility] [id number] [place] [address] 02169- 6838 September, [facility] [id number] [place] [address] 44325- 7805 September, [facility] [id number] [place] [address] 55365- 9195 September, [facility] [address] [address]- 8281 September, [facility] [id number] [place] [address] 95462- 0899 Aug, Type 2 diabetes mellitus with hyperglycemia E11.65 ; Mixed hyperlipidemia E78.2 and Right carpal tunnel syndrome G56.01 [facility] [id number] [place] [address] 66533- 6553 Aug, [facility] [address] [address]- 8295 Jul, [facility] [id number] [place] [address] 95452- 0617 Jun, [facility] [id number] [place] [address] 10948- 3771 Jun, [facility] [id number] [place] [address] 51233- 3926 May, [facility] [address] [address]- 1401 May, [facility] [id number] [place] [address] 44430- 5553 May, Type 2 diabetes mellitus with hyperglycemia E11.65 and Falls E888.9 [facility] [address] [address]- 6882 Apr, Type 2 diabetes mellitus with hyperglycemia E11.65 [facility] [address] [address]- 3457 Apr, [facility] [address] [address]- 0870 Apr, Type 2 diabetes mellitus with hyperglycemia E11.65 [facility] [address] [address]- 1266 Apr, [facility] [id number] [place] [address] 11301- 6067 Mar, Type 2 diabetes mellitus with diabetic polyneuropathy E11.42 ; Bilateral low back pain without sciatica M54.5 and Dry nose J34.89 [facility] [id number] [place] [address] 08385- 4934 Mar, Palpitations R00.2 ; Syncope R55 ; DM (diabetes mellitus) E11.9 and Obesity E66.9 [facility] [address] 16634- 8882 Mar, [facility] [address] 79219- 9678 Mar, [facility] [address] 11195- 9169 Mar, [facility] [address] 46601- 2573 Feb, [facility] [address] 81346- 9705 Jan, [facility] [id number] [place] [address] 78589- 0218 Jan, [facility] [id number] [place] [address] 15204- 3777 Jan, Falls E888.9 and Sinusitis 473.9 [facility] [id number] [place] [address] 47984- 8206 Dec, [facility] [id number] [place] [address] 82412- 6779 Dec, [facility] [address] 24291- 8461 Dec, [facility] [id number] [place] [address] 98513- 5114 Dec, [facility] [address] 79107- 2392 Dec, Diabetes mellitus without mention of complication, type II or unspecified type, not stated as uncontrolled 250.00 and Shortness of breath 786.05 [facility] [id number] [place] [address] 43260- 8508 Dec, [facility] [id number] [place] [address] 48665- 1050 Nov, [facility] [id number] [place] [address] 85540- 9516 Nov, [facility] [id number] [place] [address] 38473- 8725 Oct, Restrictive lung disease 518.89 [place] [id number] [place] [address] 37946- 0579 Oct, [place] [id number] [place] [address] 47032- 6761 Oct, Shortness of breath 786.05 [facility] [id number] [place] [address] 98471- 2301 September, Other nonspecific abnormal finding of lung field 793.19 ; Diabetes mellitus without mention of complication, type II or unspecified type, not stated as uncontrolled 250.00 ; Hyperlipidemia LDL goal < 100 272.4 ; Narcolepsy, with cataplexy 347.01 ; Shortness of breath 786.05 and Chest pain 786.50 [place] [id number] [place] [address] 38314- 0948 Aug, [facility] [id number] [place] [address] 88792- 9476 Aug, [facility] [id number] [place] [address] 813121- 7527 Jun, [facility] [id number] [place] [address] 061243- 8295 Jun, [facility] [id number] [place] [address] 593068- 3315 Jun, [facility] [place] [facility] [address] [id number] [place] [address]- 9290 Jun, 2014 [facility] [place] [facility] [address] [id number] [place] [address]- 9968 Jun, 2014 [facility] [place] [facility] [address] [id number] [place] [address]- 5180 Jun, 2014 [facility] [place] [facility] [address] [id number] [place] [address]- 2817 Jun, 2014 [facility] [place] [facility] [address] [id number] [place] [address]- 7719 Jun, [facility] [place] [facility] [address] [id number] [place] [address]- 4292 May, [facility] [place] [facility] [address] [id number] [place] [address]- 6855 May, [facility] [place] [facility] [address] [id number] [place] [address]- 4675 Apr, [facility] [place] [facility] [address] [id number] [place] [address]- 7786 Apr, [facility] [place] [facility] [address] [id number] [place] [address]- 8367 Mar, [facility] [place] [facility] [address] [id number] [place] [address]- 1604 Mar, [facility] [place] [facility] [address] [id number] [place] [address]- 8679 Mar, [facility] [place] [facility] [address] [id number] [place] [address]- 3327 Mar, [facility] [place] [facility] [address] [id number] [place] [address]- 5183 Nov, [facility] [place] [facility] [address] [id number] [place] [address]- 3986 Nov, [facility] [place] [facility] [address] [id number] [place] [address]- 2618 Nov, [facility] [place] [facility] [address] [id number] [place] [address]- 4157 Nov, [facility] [place] [facility] [address] [id number] [place] [address]- 1787 Oct, [facility] [place] [facility] [address] [id number] [place] [address]- 7151 Oct, [facility] [place] [facility] [address] [id number] [place] [address]- 4681 Oct, [facility] [place] [facility] [address] [id number] [place] [address]- 3073 Oct, [facility] [place] [facility] [address] [id number] [place] [address]- 8497 Oct, [facility] [place] [facility] [address] [id number] [place] [address]- 4705 Oct, [facility] [place] [facility] [address] [id number] [place] [address]- 6649 Oct, [facility] [place] [facility] [address] [id number] [place] [address]- 7384 Oct, [facility] [place] [facility] [address] [id number] [place] [address]- 2312 Oct, [facility] [place] [facility] [address] [id number] [place] [address]- 7328 Oct, [facility] [place] [facility] [address] [id number] [place] [address]- 3387 September, [facility] [place] [facility] [address] [id number] [place] [address]- 3899 September, [facility] [place] [facility] [address] [id number] [place] [address]- 9555 Aug, [facility] [place] [facility] [address] [id number] [place] [address]- 5920 Aug, [facility] [place] [facility] [address] [id number] [place] [address]- 7494 Aug, [facility] [place] [facility] [address] [id number] [place] [address]- 7471 Aug, [facility] [place] [facility] [address] [id number] [place] [address]- 6443 Aug, [facility] [place] [facility] [address] [id number] [place] [address]- 3924 Aug, [facility] [place] [facility] [address] [id number] [place] [address]- 6871 Jul, [facility] [place] [facility] [address] [id number] [place] [address]- 5002 Jul, [facility] [place] [facility] [address] [id number] [place] [address]- 0185 Jul, [facility] [place] [facility] [address] [id number] [place] [address]- 5220 Jul, [facility] [place] [facility] [address] [id number] [place] [address]- 8643 Jul, [facility] [place] [facility] [address] [id number] [place] [address]- 7677 Jul, [facility] [place] [facility] [address] [id number] [place] [address]- 5705 Jul, [facility] [place] [facility] [address] [id number] [place] [address]- 8353 Jul, [facility] [place] [facility] [address] [id number] [place] [address]- 2745 Jul, [facility] [place] [facility] [address] [id number] [place] [address]- 3168 Jul, [facility] [place] [facility] [address] [id number] [place] [address]- 6682 Jul, [facility] [place] [facility] [address] [id number] [place] [address]- 8071 19 Jul, 2013 [facility] [place] [facility] [address] [id number] [place] [address]- 5787 19 Jul, 2013 [facility] [place] [facility] [address] [id number] [place] [address]- 8421 Jul, [facility] [place] [facility] [address] [facility] [id number] [place] [address] Jul, [facility] [place] [facility] [address] [id number] [place] [address] Jul, [facility] [place] [facility] [address] [id number] [place] [address] Jun, [facility] [place] [facility] [address] [facility] [id number] [place] [address] Jun, [facility] [place] [facility] [address] [facility] [id number] [place] [address] Jun, [facility] [place] [facility] [address] [id number] [place] [address] Jun, [facility] [place] [facility] [address] [facility] [id number] [place] [address] Jun, [facility] [place] [facility] [address] [facility] [id number] [place] [address] Jun, [facility] [place] [facility] [address] [facility] [id number] [place] [address] Jun, [facility] [place] [facility] [address] [facility] [id number] [place] [address] Jun, [facility] [place] [facility] [address] [id number] [place] [address] Jun, [facility] [place] [facility] [address] [facility] [id number], [place] [address] Jun, [facility] [place] [facility] [address] [facility] [id number], [place] [address] 18 Jun, 2013 [facility] [place] [facility] [address] [id number] [place] [address] 9568 18 Jun, 2013 [facility] [place] [facility] [address] [id number] [place] [address] 14 Jun, 2013 [facility] [place] [facility] [address] [id number] [place] [address] 13 Jun, 2013 [facility] [place] [facility] [address] [id number] [place] [address]- [address] Jun, [facility] [place] [facility] [address] [id number] [place] [address]- 8516 Jun, [facility] [place] [facility] [address] [id number] [place] [address] Jun, [facility] [place] [facility] [address] [facility] [id number] [place] [address] 12 Jun, 2013 [facility] [place] [facility] [address] [id number] [place] [address]- [address] Jun, [facility] [place] [facility] [address] [facility] [id number] [place] [address]- [address] Jun, [facility] [place] [facility] [address] [facility] [id number] [place] [address] Jun, [facility] [place] [facility] [address] [facility] [id number] [place] [address] 10 Jun, 2013 [facility] [place] [facility] [address] [facility] [id number] [place] [address] 07 Jun, 2013 [facility] [place] [facility] [address] [facility] [facility] [id number] [place] [address] 07 Jun, 2013 [facility] [place] [facility] [address] [facility] [id number] [place] [address] 06 Jun, 2013 [facility] [place] [facility] [address] [facility] [id number] [place] [address] 06 Jun, 2013 [facility] [place] [facility] [address] [id number] [place] [address] Jun, [facility] [place] [facility] [address] [id number] [place] [address] Jun, [facility] [place] [facility] [address] [id number] [place] [address] Jun, [facility] [place] [facility] [address] [id number] [place] [address] Jun, [facility] [place] [facility] [address] [id number] [place] [address] May, [facility] [place] [facility] [address] [id number] [place] [address] May, [facility] [place] [facility] [address] [id number] [place] [address] May, [facility] [place] [facility] [address] [id number] [place] [address] May, [facility] [place] [facility] [address] [id number] [place] [address] May, [facility] [place] [facility] [address] [id number] [place] [address] May, [facility] [place] [facility] [address] [id number] [place] [address] May, [facility] [place] [facility] [address] [id number] [place] [address] May, [facility] [place] [facility] [address] [id number] [place] [address] May, [facility] [place] [facility] [address] [id number] [place] [address] May, [facility] [place] [facility] [address] [id number] [place] [address] May, [facility] [place] [facility] [address] [id number], [place] [address] May, [facility] [address] [id number] [address] May, [facility] [address] [id number], [place] [address] May, [facility] [id number], [place] [address] May, [facility] [id number], [place] [address] Apr, [facility] [address] [id number] [address] Apr, [facility] [id number], [place] [address] Dec, [facility] [id number], [place] [address] Nov, [facility] [id number] [id number] May, [facility] [id number], [place] [address] Apr, [facility] [id number] [place] [address] Apr, [facility] [id number], [place] [address] Apr, [facility] [id number] [address] Apr, IMMUNIZATIONS No Known Immunizations SOCIAL HISTORY Never Assessed REASON FOR VISIT Lab (walk-in)--[facility] PLAN OF CARE VITAL SIGNS MEDICATIONS Unknown Medications RESULTS No Results PROCEDURES Procedure Date Ordered Result Body Site LIPID PANEL Apr 19, 2017 COMPREHEN METABOLIC PANEL Apr 19, 2017 VENIPUNCT, ROUTINE* Apr 19, 2017 COMPLETE CBC W/AUTO DIFF WBC Apr 19, 2017 INSTRUCTIONS MEDICATIONS ADMINISTERED No Known Medications MEDICAL (GENERAL) HISTORY Type Description Date Medical History asthma Medical History type II diabetes Medical History sleep apnea Medical History narcolepsy Surgical History hysterectomy Hospitalization History Chest pain-[facility] 02/27/17
--- OUTSIDE RECORDS SUMMARY | 2017-12-01 19:14 | XMS REPORT ---
Author Author QUINTEN GILLIAM Organization [facility] [place] Address [address] [place] [address] Care Team Providers Care Casing Crew Name Role Phone TAWANARUBINAQUINTEN Unavailable PROBLEMS Type Condition ICD9-CM Code FQL96-KS Code Onset Dates Condition Status SNOMED Code Problem Primary narcolepsy with cataplexy G47.411 Active 724763720 Problem Falls frequently R29.6 Active 120565396 Problem Right carpal tunnel syndrome G56.01 Active 84485919 Problem Non-alcoholic fatty liver disease K76.0 Active 120180401 Problem Posterior subcapsular age-related cataract of both eyes H25.043 Active 2679890 Problem Tarsal tunnel syndrome of left side G57.52 Active 47733239 Problem Other chronic pain G89.29 Active 61677846 Problem Gastroesophageal reflux disease with esophagitis K21.0 Active 528483882 Problem Obesity E66.9 Active 300793782 Problem Pain in left foot M79.672 Active 5276546 Problem Delayed gastric emptying K30 Active 081060148 Problem Hypermetropia, bilateral H52.03 Active 77131367 Problem Nuclear cataract of both eyes H25.13 Active 61602119 Problem Presbyopia OU H52.4 Active 19994415 Problem Mixed hyperlipidemia E78.2 Active 740079887 Problem Obstructive sleep apnea G47.33 Active 37963151 Problem Type 2 diabetes mellitus with hyperglycemia E11.65 Active 86172980 Problem Shortness of breath R06.02 Active 367521588 Problem Type 2 diabetes mellitus with diabetic polyneuropathy E11.42 Active 31379053 Problem Lung nodule R91.1 Active [id number] ALLERGIES No Information SOCIAL HISTORY Never Assessed PLAN OF CARE VITAL SIGNS MEDICATIONS Unknown Medications RESULTS No Results PROCEDURES No Known procedures IMMUNIZATIONS No Known Immunizations MEDICAL (GENERAL) HISTORY Type Description Date Medical History asthma Medical History type II diabetes Surgical History hysterectomy Hospitalization History Chest pain-[facility] 02/27/17
--- OUTSIDE RECORDS SUMMARY | 2017-12-01 19:15 | XMS REPORT ---
Author Author QUINTEN GILLIAM [facility] Address [address] [place] [address] Care Team Providers Care Wheel Setter Name Role Phone QUINTEN GILLIAM Unavailable PROBLEMS Type Condition ICD9-CM Code SYY31-VL Code Onset Dates Condition Status SNOMED Code Problem Right carpal tunnel syndrome G56.01 Active 39343141 Problem Gastroesophageal reflux disease with esophagitis K21.0 Active 623297597 Problem Falls frequently R29.6 Active 637124338 Problem Porokeratosis Q82.8 Active 651521515 Problem Posterior subcapsular age-related cataract of both eyes H25.043 Active 0481671 Problem Non-alcoholic fatty liver disease K76.0 Active 989791812 Problem Delayed gastric emptying K30 Active 736967621 Problem Pain in left foot M79.672 Active 5122219 Problem Other chronic pain G89.29 Active 97843942 Problem Tarsal tunnel syndrome of left side G57.52 Active 13959000 Problem Obesity E66.9 Active 693751995 Problem Hypermetropia, bilateral H52.03 Active 70676755 Problem Type 2 diabetes mellitus with hyperglycemia E11.65 Active 06788767 Problem Nuclear cataract of both eyes H25.13 Active 27428202 Problem Presbyopia OU H52.4 Active 95219906 Problem Obstructive sleep apnea G47.33 Active 50187202 Problem Shortness of breath R06.02 Active 333832969 Problem Type 2 diabetes mellitus with diabetic polyneuropathy E11.42 Active 12200588 Problem Lung nodule R91.1 Active 908103259 Problem Mixed hyperlipidemia E78.2 Active 126542111 Problem Primary narcolepsy with cataplexy G47.411 Active 040485352 ALLERGIES Substance Reaction Event Type Date Status Penicillin G Sodium Unknown Drug Allergy Feb, Active Erythromycin Unknown Drug Allergy Feb, Active ENCOUNTERS Encounter Location Date Diagnosis [facility] [address] [facility] [id number] [address] Nov, [facility] [id number] [place] [address] 89791- 7353 September, [facility] [id number] [place] [address] 74346- 4106 September, Porokeratosis Q82.8 and Type 2 diabetes mellitus with diabetic polyneuropathy E11.42 [facility] [id number] [place] [address] 03430 -8148 Aug, Seasonal allergic rhinitis, unspecified trigger J30.2 [facility] [id number] [place] [address] 98326- 8005 Aug, [facility] [id number] [place] [address] 36075- 4258 Aug, [facility] [address] [id number] Aug, Dental examination V72.2 and Dental examination Z01.20 [facility] [id number] [place] [address] 76841- 3563 Aug, Dental examination Z01.20 and Dental caries K02.9 [facility] [id number] [place] [address] 32565- 6909 Aug, Obstructive sleep apnea G47.33 ; Obesity E66.9 ; Type 2 diabetes mellitus with hyperglycemia E11.65 ; Palpitations R00.2 and Corns and callosities L84 [facility] [address] [place] [address] 02635- 3107 Jul, [facility] [id number] [place] [address] 57494- 2901 Jul, [facility] [id number] [place] [address] 93985- 3255 Jun, Type 2 diabetes mellitus with hyperglycemia E11.65 ; Colon cancer screening Z12.11 ; Mixed hyperlipidemia E78.2 ; Non-alcoholic fatty liver disease K76.0 ; Gastroesophageal reflux disease with esophagitis K21.0 and Pain of upper abdomen R10.10 [facility] [id number] [place] [address] 10200- 7623 Jun, Falls frequently R29.6 [facility] [id number] [place] [address] 43283 -7808 May, Infection of nose J34.89 [facility] [id number] [place] [address] 03503- 2151 May, Bilateral low back pain without sciatica M54.5 [facility] [id number] [place] [address] 30684- 1528 May, Type 2 diabetes mellitus with diabetic polyneuropathy E11.42 ; Obstructive sleep apnea G47.33 and Type 2 diabetes mellitus with hyperglycemia E11.65 [facility] [id number] [place] [address] 28252- 6800 Apr, Bilateral low back pain without sciatica M54.5 [facility] [id number] [place] [address] 34913- 6989 Apr, Mixed hyperlipidemia E78.2 and Type 2 diabetes mellitus with hyperglycemia E11.65 [facility] [id number] [place] [address] 25285- 1314 Apr, Type 2 diabetes mellitus with diabetic polyneuropathy E11.42 [facility] [id number] [place] [address] 30988- 0909 Apr, [facility] [id number] [place] [address] 84824- 8098 Apr, Skin lesion of left arm L98.9 and Skin lesion of left leg L98.9 [facility] [id number] [place] [address] 39302- 9260 Mar, Bilateral low back pain without sciatica M54.5 [facility] [id number] [place] [address] 46058- 2092 Mar, Plantar fasciitis of left foot M72.2 ; Bursitis of left foot M71.572 and Type 2 diabetes mellitus with diabetic polyneuropathy E11.42 [facility] [id number] [place] [address] 15053- 4881 Feb, Non-alcoholic fatty liver disease K76.0 ; Keratoacanthoma L85.8 ; Seborrheic keratosis L82.1 ; Type 2 diabetes mellitus with hyperglycemia E11.65 and Nuclear cataract of both eyes H25.13 [facility] [place] [address] [id number] Feb, [facility] [address] 54974- 6575 Feb, [facility] [address] 27354- 7775 Feb, [facility] [address] 20046- 2237 Feb, Type 2 diabetes mellitus with hyperglycemia E11.65 ; Back muscle spasm M62.830 and Encounter for immunization Z23 [facility] [address] 00698- 2830 Jan, Plantar fasciitis of left foot M72.2 [facility] [address] 74681- 1831 Dec, [facility] [id number] [place] [address] 77525- 9279 Dec, Plantar fasciitis of left foot M72.2 and Tarsal tunnel syndrome of left side G57.52 [facility] [id number] [place] [address] 82800- 6068 Dec, [facility] [address] 53632 -5852 Nov, Mary Jane rash of groin B37.89 and Rash and nonspecific skin eruption R21 [facility] [address] 77341- 0018 Nov, [facility] [address] [address] 0989 Oct, Type 2 diabetes mellitus with hyperglycemia E11.65 and Mixed hyperlipidemia E78.2 [facility] [id number] [place] [address] 36656- 3243 Oct, [facility] [id number] [place] [address] 01430- 4352 Oct, Chest pain, unspecified R07.9 ; Palpitations R00.2 ; Syncope R55 and Mixed hyperlipidemia E78.2 [facility] [id number] [place] [address] 35651- 3907 Oct, Plantar fasciitis, bilateral M72.2 and Type 1 diabetes mellitus with diabetic neuropathy E10.40 [facility] [id number] [place] [address] 01788- 8009 Oct, [facility] [id number] [place] [address] 68635- 8350 September, Type 2 diabetes mellitus with hyperglycemia E11.65 [facility] [id number] [place] [address] 49750- 7232 September, Type 2 diabetes mellitus with hyperglycemia E11.65 ; Type 2 diabetes mellitus with diabetic polyneuropathy E11.42 ; Gastroesophageal reflux disease with esophagitis K21.0 and Headache, unspecified headache type R51 [facility] [address] [address] 2842 September, [facility] [id number] [place] [address] 22232- 3651 September, [facility] [id number] [place] [address] 19835- 0707 September, [facility] [id number] [place] [address] 44344- 1105 September, Other chest pain R07.89 ; Heart palpitations R00.2 ; Mixed hyperlipidemia E78.2 and Obesity E66.9 [facility] [address] [place] [address] 0377 Aug, [facility] [address] [address]- 1609 Aug, Type 2 diabetes mellitus with diabetic polyneuropathy E11.42 and Type 2 diabetes mellitus with hyperglycemia E11.65 [facility] [address] [address]- 5449 Aug, [facility] [address] [address]- 7728 Aug, [facility] [address] [address]- 2337 Aug, [facility] [address] [address]- 7037 Aug, Type 2 diabetes mellitus with hyperglycemia E11.65 [facility] [address] [address] 1961 Aug, [facility] [address] [address]- 8549 Jul, Type 2 diabetes mellitus with diabetic polyneuropathy E11.42 [facility] [address] [address]- 7946 Jul, Type 2 diabetes mellitus with hyperglycemia E11.65 [facility] [address] [address]- 8153 16 Jul, 2016 [facility] [address] [address]- 7447 Jul, [facility] [address] [address]- 5059 Jul, [facility] [address] [address]- 4466 Jul, Type 2 diabetes mellitus with diabetic polyneuropathy E11.42 and Type 2 diabetes mellitus with hyperglycemia E11.65 [facility] [id number] [place] [address] 11194- 0856 Jun, Obstructive sleep apnea G47.33 [facility] [id number] [place] [address] 72040- 9573 Jun, Type 2 diabetes mellitus with diabetic polyneuropathy E11.42 ; Primary narcolepsy with cataplexy G47.411 ; Abdominal bloating R14.0 ; Other chest pain R07.89 and Vision problems H54.7 [facility] [address] 55173- 1374 Jun, [facility] [id number] [place] [address] 74647- 2955 May, [facility] [address] 31659- 2709 Apr, [facility] [address] 25752- 6952 Apr, Plantar fasciitis of left foot M72.2 [facility] [id number] [place] [address] 35637- 4557 Mar, [facility] [address] 42954- 6728 Mar, Plantar fasciitis of left foot M72.2 and Type 2 diabetes mellitus with diabetic polyneuropathy E11.42 [facility] [id number] [place] [address] 89389- 0801 Feb, Type 2 diabetes mellitus with hyperglycemia E11.65 ; Mixed hyperlipidemia E78.2 and Encounter for immunization Z23 [facility] [id number] [place] [address] 40754- 4907 Feb, [facility] [address] 41260- 5276 Feb, [facility] [id number] [place] [address] 06096- 3492 Feb, Type 2 diabetes mellitus with hyperglycemia E11.65 [facility] [address] [place] [address]- 2169 Feb, Type 2 diabetes mellitus with hyperglycemia E11.65 [facility] [id number] [place] [address] 97654- 8474 Jan, [facility] [id number] [place] [address] 42412- 0546 Dec, Pain in left foot M79.672 ; Other chronic pain G89.29 ; Type 2 diabetes mellitus with hyperglycemia E11.65 ; Obstructive sleep apnea G47.33 ; Falls frequently R29.6 ; Mixed hyperlipidemia E78.2 and Gastroesophageal reflux disease with esophagitis K21.0 [facility] [id number] [place] [address] 34927- 0943 Nov, [facility] [id number] [place] [address] 08434- 3773 Oct, Type 2 diabetes mellitus with diabetic polyneuropathy E11.42 [facility] [id number] [place] [address] 48809- 3473 Oct, [facility] [id number] [place] [address] 50297- 3008 Oct, [facility] [id number] [place] [address] 10673- 4730 September, [facility] [id number] [place] [address] 34879- 1638 September, [facility] [id number] [place] [address] 53897- 8258 September, [facility] [address] [place] [address] 23599- 8340 September, [facility] [id number] [place] [address] 83361- 2001 September, [facility] [address] [place] [address] 96064- 6960 Aug, Type 2 diabetes mellitus with hyperglycemia E11.65 ; Mixed hyperlipidemia E78.2 and Right carpal tunnel syndrome G56.01 [facility] [address] [address]- 9201 Aug, [facility] [id number] [place] [address] 06888- 3073 Jul, [facility] [id number] [place] [address] 80550- 9505 Jun, [facility] [id number] [place] [address] 06749- 1745 Jun, [facility] [id number] [place] [address] 78700- 6423 May, [facility] [id number] [place] [address] 85676- 5884 May, [facility] [id number] [place] [address] 08096- 4732 May, Type 2 diabetes mellitus with hyperglycemia E11.65 and Falls E888.9 [facility] [id number] [place] [address] 64713- 1464 Apr, Type 2 diabetes mellitus with hyperglycemia E11.65 [facility] [id number] [place] [address] 79073- 7801 Apr, [facility] [address] [address]- 3837 Apr, Type 2 diabetes mellitus with hyperglycemia E11.65 [facility] [id number] [place] [address] 24219- 7302 Apr, [facility] [id number] [place] [address] 24721- 4028 Mar, Type 2 diabetes mellitus with diabetic polyneuropathy E11.42 ; Bilateral low back pain without sciatica M54.5 and Dry nose J34.89 [facility] [address] [address]- 5547 Mar, Palpitations R00.2 ; Syncope R55 ; DM (diabetes mellitus) E11.9 and Obesity E66.9 [facility] [id number] [place] [address] 50031- 8512 Mar, [facility] [id number] [place] [address] 24601- 6366 Mar, [facility] [id number] [place] [address] 59340- 9914 Mar, [facility] [address] 69104- 7697 Feb, [facility] [address] 46483- 3854 Jan, [facility] [address] 77962- 2864 Jan, [facility] [address] 63734- 8820 Jan, Falls E888.9 and Sinusitis 473.9 [facility] [id number] [place] [address] 43175- 7284 Dec, [facility] [id number] [place] [address] 12069- 0554 Dec, [facility] [id number] [place] [address] 59398- 3889 Dec, [facility] [id number] [place] [address] 54498- 9609 Dec, [facility] [id number] [place] [address] 47659- 8137 Dec, Diabetes mellitus without mention of complication, type II or unspecified type, not stated as uncontrolled 250.00 and Shortness of breath 786.05 [facility] [id number] [place] [address] 55084- 3163 Dec, [facility] [id number] [place] [address] 70436- 0298 Nov, [facility] [id number] [place] [address] 23248- 5320 Nov, [facility] [id number] [place] [address] 001911- 7959 Oct, Restrictive lung disease 518.89 [facility] [id number] [place] [address] 64547- 0286 Oct, [facility] [id number] [place] [address] 36385- 8686 Oct, Shortness of breath 786.05 [facility] [id number] [place] [address] 563139- 4464 September, Other nonspecific abnormal finding of lung field 793.19 ; Diabetes mellitus without mention of complication, type II or unspecified type, not stated as uncontrolled 250.00 ; Hyperlipidemia LDL goal < 100 272.4 ; Narcolepsy, with cataplexy 347.01 ; Shortness of breath 786.05 and Chest pain 786.50 [facility] [id number] [place] [address] 46875- 5059 Aug, [facility] [id number] [place] [address] 12538- 6122 Aug, [facility] [id number] [place] [address] 04014- 7255 Jun, [facility] [id number] [place] [address] 611744- 8418 Jun, [facility] [id number] [place] [address] 113505- 5707 Jun, [facility] [id number] [place] [address] 223629- 5062 Jun, [facility] [id number] [place] [address] 642369- 5911 Jun, [facility] [id number] [place] [address] 36404- 4488 Jun, [facility] [place] [facility] [address] [id number] [place] [address]- 2860 Jun, [facility] [place] [facility] [address] [id number] [place] [address]- 2757 Jun, [facility] [place] [facility] [address] [id number] [place] [address]- 8719 May, [facility] [place] [facility] [address] [id number] [place] [address]- 7492 May, [facility] [place] [facility] [address] [id number] [place] [address]- 0077 Apr, [facility] [place] [facility] [address] [id number] [place] [address]- 4362 Apr, [facility] [place] [facility] [address] [id number] [place] [address]- 8668 Mar, [facility] [place] [facility] [address] [id number] [place] [address]- 6145 Mar, [facility] [place] [facility] [address] [id number] [place] [address]- 7080 Mar, [facility] [place] [facility] [address] [id number] [place] [address]- 7108 Mar, [facility] [place] [facility] [address] [id number] [place] [address]- 4245 Nov, [facility] [place] [facility] [address] [id number] [place] [address]- 1010 Nov, [facility] [place] [facility] [address] [id number] [place] [address]- 8090 Nov, [facility] [place] [facility] [address] [id number] [place] [address]- 6095 Nov, [facility] [place] [facility] [address] [id number] [place] [address]- 9061 Oct, [facility] [place] [facility] [address] [id number] [place] [address]- 5688 30 Oct, 2013 [facility] [place] [facility] [address] [id number] [place] [address]- 5637 Oct, [facility] [place] [facility] [address] [id number] [place] [address]- 1778 24 Oct, 2013 [facility] [place] [facility] [address] [id number] [place] [address]- 5554 Oct, [facility] [place] [facility] [address] [id number] [place] [address]- 9866 Oct, [facility] [place] [facility] [address] [id number] [place] [address]- 7067 Oct, [facility] [place] [facility] [address] [id number] [place] [address]- 2689 Oct, [facility] [place] [facility] [address] [id number] [place] [address]- 4755 Oct, [facility] [place] [facility] [address] [id number] [place] [address]- 4151 Oct, [facility] [place] [facility] [address] [id number] [place] [address]- 5883 September, [facility] [place] [facility] [address] [id number] [place] [address]- 9367 September, [facility] [place] [facility] [address] [id number] [place] [address]- 6747 Aug, [facility] [place] [facility] [address] [id number] [place] [address]- 0100 Aug, [facility] [place] [facility] [address] [id number] [place] [address]- 6625 Aug, [facility] [place] [facility] [address] [id number] [place] [address]- 6761 Aug, [facility] [place] [facility] [address] [id number] [place] [address]- 4539 Aug, [facility] [place] [facility] [address] [id number] [place] [address]- 0510 Aug, [facility] [place] [facility] [address] [id number] [place] [address]- 5450 Jul, [facility] [place] [facility] [address] [id number] [place] [address]- 0761 Jul, [facility] [place] [facility] [address] [id number] [place] [address]- 4114 Jul, [facility] [place] [facility] [address] [id number] [place] [address]- 1424 Jul, [facility] [place] [facility] [address] [id number] [place] [address]- 3446 Jul, [facility] [place] [facility] [address] [id number] [place] [address] Jul, [facility] [place] [facility] [address] [id number] [place] [address] Jul, [facility] [place] [facility] [address] [id number] [place] [address] Jul, [facility] [place] [facility] [address] [id number] [place] [address] Jul, [facility] [place] [facility] [address] [id number] [place] [address] Jul, [facility] [place] [facility] [address] [id number] [place] [address] 21 Jul, 2013 [facility] [place] [facility] [address] [id number] [place] [address] 19 Jul, 2013 [facility] [place] [facility] [address] [id number] [place] [address] 19 Jul, 2013 [facility] [place] [facility] [address] [id number] [place] [address] 14 Jul, 2013 [facility] [place] [facility] [address] [id number], [place] [address] Jul, [facility] [place] [facility] [address] [id number] [place] [address] Jul, [facility] [place] [facility] [address] [id number] [place] [address] Jun, [facility] [place] [facility] [address] [facility] [id number] [place] [address] Jun, [facility] [place] [facility] [address] [id number] [place] [address] Jun, [facility] [place] [facility] [address] [id number] [place] [address] Jun, [facility] [place] [facility] [address] [facility] [id number] [place] [address] Jun, [facility] [place] [facility] [address] [id number] [place] [address] Jun, [facility] [place] [facility] [address] [facility] [id number] [place] [address] Jun, [facility] [place] [facility] [address] [id number] [place] [address] Jun, [facility] [place] [facility] [address] [id number] [place] [address] Jun, [facility] [place] [facility] [address] [facility] [id number] [place] [address] Jun, [facility] [place] [facility] [address] [facility] [id number] [place] [address] 18 Jun, 2013 [facility] [place] [facility] [address] [facility] [id number] [place] [address] 18 Jun, 2013 [facility] [place] [facility] [address] [facility] [id number] [place] [address] 14 Jun, 2013 [facility] [place] [facility] [address] [facility] [id number] [place] [address] 13 Jun, 2013 [facility] [place] [facility] [address] [facility] [id number] [place] [address] 13 Jun, 2013 [facility] [place] [facility] [address] [facility] [id number] [place] [address] 13 Jun, 2013 [facility] [place] [facility] [address] [facility] [id number] [place] [address] 13 Jun, 2013 [facility] [place] [facility] [address] [facility] [id number] [place] [address] 12 Jun, 2013 [facility] [place] [facility] [address] [facility] [id number] [place] [address] 12 Jun, 2013 [facility] [place] [facility] [address] [facility] [id number] [place] [address] Jun, 2013 [facility] [place] [facility] [address] [facility] [id number] [place] [address] Jun, 2013 [facility] [place] [facility] [address] [facility] [id number] [place] [address] 10 Jun, 2013 [facility] [place] [facility] [address] [facility] [id number] [place] [address] 07 Jun, 2013 [facility] [place] [facility] [address] [facility] [id number] [place] [address] 07 Jun, 2013 [facility] [place] [facility] [address] [facility] [id number] [place] [address] Jun, 2013 [facility] [place] [facility] [address] [facility] [id number] [place] [address] Jun, 2013 [facility] [place] [facility] [address] [facility] [id number] [place] [address] Jun, 2013 [facility] [place] [facility] [address] [facility] [id number] [place] [address] Jun, 2013 [facility] [place] [facility] [address] [facility] [id number] [place] [address] Jun, [facility] [address] [id number] [place] [address] Jun, [facility] [place] [facility] [address] [id number] [place] [address] May, [facility] [place] [facility] [address] [id number] [place] [address] May, [facility] [place] [facility] [address] [id number] [place] [address] May, [facility] [place] [facility] [address] [id number] [place] [address] May, [facility] [place] [facility] [address] [id number] [place] [address] May, [facility] [place] [facility] [address] [id number] [place] [address] May, [facility] [place] [facility] [address] [id number] [place] [address] May, [facility] [place] [facility] [address] [id number] [place] [address] May, [facility] [place] [facility] [address] [id number] [place] [address] May, [facility] [place] [facility] [address] [id number] [place] [address] May, [facility] [place] [facility] [address] [id number], [place] [address] May, [facility] [place] [facility] [address] [id number] [place] [address] May, [facility] [place] [facility] [address] [id number] [place] [address] May, [facility] [place] [facility] [address] [id number] [place] [address] May, [facility] [place] [facility] [address] [id number] [address] May, [facility] [address] [id number], [place] [address] Apr, [facility] [address] [id number], [place] [address] Apr, [facility] [id number] [place] [address] Dec, [facility] [id number] [place] [address] Nov, [facility] [id number] [address] May, [facility] [id number] [place] [address] Apr, [facility] [id number] [place] [address] Apr, [facility] [address] [id number], [place] [address] Apr, [facility] [address] [id number], [place] [address] Apr, IMMUNIZATIONS Vaccine Route Administration Date Status FLUARIX QUAD (3 AND UP) 2016 IM Intramuscular Feb 15, 2017 Administered PPSV23 (PNEUMOVAX) IM Intramuscular Feb 15, 2017 Administered SOCIAL HISTORY Never Assessed REASON FOR VISIT Diabetes fu -- joanie joseph PLAN OF CARE Activity Details Follow Up 3 Months Reason:DMII VITAL SIGNS Height 64 in 2017-02-15 Weight 196.2 lbs 2017-02-15 Temperature 98.0 degrees Fahrenheit 2017-02-15 BMI 33.67 kg/m2 2017-02-15 Blood pressure systolic 130 mmHg 2017-02-15 Blood pressure diastolic 78 mmHg 2017-02-15 MEDICATIONS Medication Instructions Dosage Frequency Start Date End Date Duration Status Pravastatin Sodium 40 mg Orally Once a day 1 tablet 24h September, 90 days Active NovoLog Flexpen 100 UNIT/ML Subcutaneous 3 times a day 25 units 8h Dec, Active Test strips Test Strips Frank Contour test strips 2 times a day test blood sugar 12h Feb, Active Test strips Test Strips Contour teststrips directed 12h Dec, Active Proventil HFA 108 (90 Base) MCG/ACT Inhalation every 4 hrs 2 puffs as needed 4h Dec, Active Gabapentin 300 MG Orally Three times a day 3 capsules 8h 20 Mar, 2015 Active Jardiance 10 mg Orally Once a day 1 tablet 24h Feb, May, 90 days Active Pen Seffner 32G X 4 MM as directed Dec, 90 days Active Levemir Flexpen 100 unit/mL (3 mL) subcutaneous 2 times a day 50 units 12h Aug, Active Calamine - Active RESULTS Name Result Date Reference Range A1C (IN HOUSE) 2017-02-15 A1C IN HOUSE 9.2 4.3 - 5.6 % Previous A1c 8.5 Lot [id number] Exp date 11/2018 PROCEDURES Procedure Date Ordered Result Body Site GLYCATED HEMOGLOBIN TEST Feb 15, 2017 FLUARIX QUAD (3 & UP)--2014Feb 15, 2017 PPSV23 (PNEUMOVAX) Feb 15, 2017 IMMUNIZATION ADMIN, EACH ADD (please include units) Feb 15, 2017 SINGLE IMMUNIZATION ADMIN Feb 15, 2017 INSTRUCTIONS MEDICATIONS ADMINISTERED No Known Medications MEDICAL (GENERAL) HISTORY Type Description Date Medical History asthma Medical History type II diabetes Medical History sleep apnea Medical History narcolepsy Surgical History hysterectomy Hospitalization History Chest pain-[facility] 02/27/17
--- OUTSIDE RECORDS SUMMARY | 2017-12-01 19:15 | XMS REPORT ---
Author Author JAMES FRAGA [facility] Address [address] [place] [address] Care Team Providers Care Environmental Tech Name Role Phone JAMES FRAGA Unavailable PROBLEMS Type Condition ICD9-CM Code ZST38-CE Code Onset Dates Condition Status SNOMED Code Problem Right carpal tunnel syndrome G56.01 Active 34740418 Problem Gastroesophageal reflux disease with esophagitis K21.0 Active 105741872 Problem Falls frequently R29.6 Active 667078082 Problem Porokeratosis Q82.8 Active 642792950 Problem Posterior subcapsular age-related cataract of both eyes H25.043 Active 1783053 Problem Non-alcoholic fatty liver disease K76.0 Active 076813010 Problem Delayed gastric emptying K30 Active 808750507 Problem Pain in left foot M79.672 Active 2560709 Problem Other chronic pain G89.29 Active 65776455 Problem Tarsal tunnel syndrome of left side G57.52 Active 18593097 Problem Obesity E66.9 Active 004313902 Problem Hypermetropia, bilateral H52.03 Active 03132094 Problem Type 2 diabetes mellitus with hyperglycemia E11.65 Active 87193237 Problem Nuclear cataract of both eyes H25.13 Active 84985933 Problem Presbyopia OU H52.4 Active 35028256 Problem Obstructive sleep apnea G47.33 Active 75506607 Problem Shortness of breath R06.02 Active 750852620 Problem Type 2 diabetes mellitus with diabetic polyneuropathy E11.42 Active 60353374 Problem Lung nodule R91.1 Active 534041016 Problem Mixed hyperlipidemia E78.2 Active 829642160 Problem Primary narcolepsy with cataplexy G47.411 Active 687889243 ALLERGIES Substance Reaction Event Type Date Status Penicillin G Sodium Unknown Drug Allergy May, Active Erythromycin Unknown Drug Allergy May, Active ENCOUNTERS Encounter Location Date Diagnosis [facility], [place] [address] [facility] [id number] [address] Nov, [facility], [place] [address], [place] [address] Nov, [facility], [place] [id number] [place] [address] 52380- 6914 Oct, [facility], [place] [id number] [place] [address] 11872- 0123 Oct, [facility], [place] [id number] [place] [address] 23990- 4340 September, [facility], [place] [id number] [place] [address] 27589- 7166 September, Type 2 diabetes mellitus with hyperglycemia E11.65 [facility], [place] [id number] [place] [address] 36152- 0144 September, Type 2 diabetes mellitus with hyperglycemia E11.65 [facility], [place] [id number] [place] [address] 42379- 0650 September, Porokeratosis Q82.8 and Type 2 diabetes mellitus with diabetic polyneuropathy E11.42 [facility] [id number] [place] [address] 68895 -6181 Aug, Seasonal allergic rhinitis, unspecified trigger J30.2 [facility], [place] [address], [place] [address] 5452 Aug, [facility], [place] [id number] [place] [address] 41051- 3383 Aug, [facility] [id number] [place] [address] [id number] Aug, Dental examination V72.2 and Dental examination Z01.20 [facility], [place] [id number] [place] [address] 42852- 3801 Aug, Dental examination Z01.20 and Dental caries K02.9 [facility], [place] [id number] [place] [address] 10142- 4077 Aug, Obstructive sleep apnea G47.33 ; Obesity E66.9 ; Type 2 diabetes mellitus with hyperglycemia E11.65 ; Palpitations R00.2 and Corns and callosities L84 [place] [address] 8[address]66- 2476 Jul, [place] [address] 64412- 9173 Jul, [place] [address] 98002- 0093 Jun, Type 2 diabetes mellitus with hyperglycemia E11.65 ; Colon cancer screening Z12.11 ; Mixed hyperlipidemia E78.2 ; Non-alcoholic fatty liver disease K76.0 ; Gastroesophageal reflux disease with esophagitis K21.0 and Pain of upper abdomen R10.[address] 22614- 1309 Jun, Falls frequently R29.6 [facility] [address] 47[address] -9164 May, Infection of nose J34.[address] 24236- 3367 May, Bilateral low back pain without sciatica M54.[address] 52775- 6592 May, Type 2 diabetes mellitus with diabetic polyneuropathy E11.42 ; Obstructive sleep apnea G47.33 and Type 2 diabetes mellitus with hyperglycemia E11.65 [place] [address] 76733- 6803 Apr, Bilateral low back pain without sciatica M54.5 [place] [address] 05245- 7879 Apr, Mixed hyperlipidemia E78.2 and Type 2 diabetes mellitus with hyperglycemia E11.65 [place] [address] 90475- 3328 Apr, Type 2 diabetes mellitus with diabetic polyneuropathy E11.42 [facility], [place] [id number] [place] [address] 63849- 8523 Apr, [facility], [place] [id number] [place] [address] 56331- 1988 Apr, Skin lesion of left arm L98.9 and Skin lesion of left leg L98.9 [place] [address] 28985- 9095 Mar, Bilateral low back pain without sciatica M54.5 [place] [id number] [place] [address] 01181- 1758 Mar, Plantar fasciitis of left foot M72.2 ; Bursitis of left foot M71.572 and Type 2 diabetes mellitus with diabetic polyneuropathy E11.42 [place] [id number] [place] [address] 63053- 8928 Feb, Non-alcoholic fatty liver disease K76.0 ; Keratoacanthoma L85.8 ; Seborrheic keratosis L82.1 ; Type 2 diabetes mellitus with hyperglycemia E11.65 and Nuclear cataract of both eyes H25.13 [facility], [place] [address] [id number] Feb, [place] [id number] [place] [address] 47255- 7960 Feb, [facility], [place] [id number] [place] [address] 77575- 6343 Feb, [facility], [place] [id number] [place] [address] 71448- 6720 Feb, Type 2 diabetes mellitus with hyperglycemia E11.65 ; Back muscle spasm M62.830 and Encounter for immunization Z23 [facility], [place] [id number] [place] [address] 02751- 2057 Jan, Plantar fasciitis of left foot M72.2 [facility], [place] [id number] [place] [address] 10259- 7694 Dec, [facility], [place] [id number] [place] [address] 57622- 2386 Dec, Plantar fasciitis of left foot M72.2 and Tarsal tunnel syndrome of left side G57.52 [facility], [place] [id number] [place] [address] 41065- 7749 Dec, [facility] [id number] [place] [address] 34410 -5939 Nov, Mary Jane rash of groin B37.89 and Rash and nonspecific skin eruption R21 [place] [id number] [place] [address] 11118- 0053 Nov, [facility], [place] [id number] [place] [address] 61709- 1915 Oct, Type 2 diabetes mellitus with hyperglycemia E11.65 and Mixed hyperlipidemia E78.2 [place] [id number] [place] [address] 26881- 8610 Oct, [facility], [place] [id number] [place] [address] 82640- 0797 Oct, Chest pain, unspecified R07.9 ; Palpitations R00.2 ; Syncope R55 and Mixed hyperlipidemia E78.2 [place] [id number] [place] [address] 22420- 2995 Oct, Plantar fasciitis, bilateral M72.2 and Type 1 diabetes mellitus with diabetic neuropathy E10.40 [place] [id number] [place] [address] 37382- 8081 Oct, [place] [id number] [place] [address] 68051- 5721 September, Type 2 diabetes mellitus with hyperglycemia E11.65 [place] [id number] [place] [address] 93693- 2149 September, Type 2 diabetes mellitus with hyperglycemia E11.65 ; Type 2 diabetes mellitus with diabetic polyneuropathy E11.42 ; Gastroesophageal reflux disease with esophagitis K21.0 and Headache, unspecified headache type R51 [facility], [place] [address], [place] [address]- 8669 September, [facility], [place] [id number] [place] [address] 65416- 5221 September, [facility], [place] [id number] [place] [address] 94200- 3968 September, [facility], [place] [id number] [place] [address] 83606- 5022 September, Other chest pain R07.89 ; Heart palpitations R00.2 ; Mixed hyperlipidemia E78.2 and Obesity E66.9 [facility], [place] [id number] [place] [address] 05330- 0895 Aug, [facility], [place] [id number] [place] [address] 63071- 4979 Aug, Type 2 diabetes mellitus with diabetic polyneuropathy E11.42 and Type 2 diabetes mellitus with hyperglycemia E11.65 [facility], [place] [id number] [address]- 8093 Aug, [facility], [place] [id number] [place] [address] 00510- 9031 Aug, [facility], [place] [id number] [place] [address] 35419- 1956 Aug, [facility], [place] [id number] [place] [address] 07954- 5637 Aug, Type 2 diabetes mellitus with hyperglycemia E11.65 [facility], [place] [address], [place] [address]- 2385 Aug, [facility], [place] [id number] [place] [address] 97025- 7468 Jul, Type 2 diabetes mellitus with diabetic polyneuropathy E11.42 [facility], [place] [id number] [place] [address] 45242- 3532 Jul, Type 2 diabetes mellitus with hyperglycemia E11.65 [facility], [place] [address], [place] [address]- 7766 Jul, [facility], [place] [id number] [place] [address] 35634- 4094 Jul, [facility], [place] [id number] [place] [address] 84311- 8083 Jul, [facility], [place] [id number] [place] [address] 75766- 4650 Jul, Type 2 diabetes mellitus with diabetic polyneuropathy E11.42 and Type 2 diabetes mellitus with hyperglycemia E11.65 [facility], [place] [id number] [place] [address] 59833- 3909 Jun, Obstructive sleep apnea G47.33 [facility], [place] [id number] [place] [address] 19068- 7983 Jun, Type 2 diabetes mellitus with diabetic polyneuropathy E11.42 ; Primary narcolepsy with cataplexy G47.411 ; Abdominal bloating R14.0 ; Other chest pain R07.89 and Vision problems H54.7 [facility], [place] [id number] [place] [address] 89043- 4745 Jun, [facility], [place] [id number] [place] [address] 23507- 2186 May, [facility], [place] [id number] [place] [address] 81865- 7283 Apr, [facility], [place] [id number] [place] [address] 42570- 8522 Apr, Plantar fasciitis of left foot M72.2 [facility], [place] [id number] [place] [address] 66843- 8550 Mar, [facility], [place] [id number] [place] [address] 68221- 2106 Mar, Plantar fasciitis of left foot M72.2 and Type 2 diabetes mellitus with diabetic polyneuropathy E11.42 [place] [address] [place] [address] 93788- 3849 Feb, Type 2 diabetes mellitus with hyperglycemia E11.65 ; Mixed hyperlipidemia E78.2 and Encounter for immunization Z23 [facility], [place] [id number] [place] [address] 71946- 0319 Feb, [place] [id number] [place] [address] 02334- 9455 Feb, [place] [id number] [place] [address] 98864- 1323 Feb, Type 2 diabetes mellitus with hyperglycemia E11.65 [place] [id number] [place] [address] 72145- 1131 Feb, Type 2 diabetes mellitus with hyperglycemia E11.65 [place] [id number] [place] [address] 44337- 3006 Jan, [place] [id number] [place] [address] 36183- 5989 Dec, Pain in left foot M79.672 ; Other chronic pain G89.29 ; Type 2 diabetes mellitus with hyperglycemia E11.65 ; Obstructive sleep apnea G47.33 ; Falls frequently R29.6 ; Mixed hyperlipidemia E78.2 and Gastroesophageal reflux disease with esophagitis K21.0 [place] [id number] [place] [address] 84176- 2549 Nov, [place] [id number] [place] [address] 37964- 3628 Oct, Type 2 diabetes mellitus with diabetic polyneuropathy E11.42 [place] [id number] [place] [address] 20657- 2459 Oct, [place] [id number] [place] [address] 03150- 6556 Oct, [place] [id number] [place] [address] 56222- 3582 September, [facility], [place] [address], [place] [address]- 8887 September, [facility], [place] [id number] [place] [address] 77959- 9061 September, [facility], [place] [address], [place] [address]- 2512 September, [facility], [place] [id number] [place] [address] 76509- 0859 September, [facility], [place] [address] [place] [address] 96035- 3037 Aug, Type 2 diabetes mellitus with hyperglycemia E11.65 ; Mixed hyperlipidemia E78.2 and Right carpal tunnel syndrome G56.01 [facility], [place] [address], [place] [address]- 0920 Aug, [facility], [place] [id number] [place] [address] 86833- 9535 Jul, [facility], [place] [address], [place] [address]- 1322 Jun, [facility], [place] [address] [place] [address] 14851- 2989 Jun, [facility], [place] [address], [place] [address]- 4364 May, [facility], [place] [address], [place] [address]- 4453 May, [facility], [place] [address] [place] [address] [id number] [address]- 5951 May, Type 2 diabetes mellitus with hyperglycemia E11.65 and Falls E888.9 [facility], [place] [address], [place] [address]- 6517 Apr, Type 2 diabetes mellitus with hyperglycemia E11.65 [facility], [place] [address], [place] [address]- 5363 Apr, [facility], [place] [id number] [place] [address] 66633- 8854 Apr, Type 2 diabetes mellitus with hyperglycemia E11.65 [facility], [place] [id number] [place] [address] 25403- 2538 Apr, [facility], [place] [id number] [place] [address] 09552- 9343 Mar, Type 2 diabetes mellitus with diabetic polyneuropathy E11.42 ; Bilateral low back pain without sciatica M54.5 and Dry nose J34.89 [facility], [place] [id number] [place] [address] 41557- 0804 Mar, Palpitations R00.2 ; Syncope R55 ; DM (diabetes mellitus) E11.9 and Obesity E66.9 [facility], [place] [id number] [place] [address] 29242- 9841 Mar, [facility], [place] [id number] [place] [address] 92375- 4414 Mar, [facility], [place] [id number] [place] [address] 13764- 7522 Mar, [facility], [place] [id number] [place] [address] 77655- 7184 Feb, [facility], [place] [id number] [place] [address] 54905- 9588 Jan, [facility], [place] [id number] [place] [address] 62486- 5657 Jan, [facility], [place] [id number] [place] [address] 88498- 7796 Jan, Falls E888.9 and Sinusitis 473.9 [facility], [place] [id number] [place] [address] 10296- 6828 Dec, [facility], [place] [id number] [place] [address] 21857- 4129 Dec, [facility], [place] [address], [place] [address]- 3923 Dec, [facility], [place] [id number] [place] [address] 47094- 4209 Dec, [facility], [place] [id number] [place] [address] 877021- 6970 Dec, Diabetes mellitus without mention of complication, type II or unspecified type, not stated as uncontrolled 250.00 and Shortness of breath 786.05 [facility], [place] [id number] [place] [address] 49138- 5085 Dec, [facility], [place] [id number] [place] [address] 35755- 9685 Nov, [facility], [place] [id number] [place] [address] 28207- 7611 Nov, [facility], [place] [id number] [place] [address] 62513- 9466 Oct, Restrictive lung disease 518.89 [facility], [place] [id number] [place] [address] 85442- 7104 Oct, [facility], [place] [id number] [place] [address] 15714- 0240 Oct, Shortness of breath 786.05 [facility], [place] [address], [place] [address]- 5715 September, Other nonspecific abnormal finding of lung field 793.19 ; Diabetes mellitus without mention of complication, type II or unspecified type, not stated as uncontrolled 250.00 ; Hyperlipidemia LDL goal < 100 272.4 ; Narcolepsy, with cataplexy 347.01 ; Shortness of breath 786.05 and Chest pain 786.50 [facility], [place] [address] [place] [address] 74305- 6337 Aug, [facility], [place] [address], [place] [address]- 7046 Aug, [facility], [place] [id number] [place] [address]- 3112 Jun, 2014 [facility] [place] [facility] [address] [id number] [place] [address]- 0695 Jun, 2014 [facility] [place] [facility] [address] [id number] [place] [address]- 3426 Jun, 2014 [facility] [place] [facility] [address] [id number] [place] [address]- 9836 Jun, 2014 [facility] [place] [facility] [address] [id number] [place] [address]- 6373 Jun, 2014 [facility] [place] [facility] [address] [id number] [place] [address]- 9965 Jun, 2014 [facility] [place] [facility] [address] [facility] [id number] [place] [address]- 8460 Jun, 2014 [facility] [place] [facility] [address] [facility] [id number] [place] [address]- 9019 Jun, 2014 [facility] [place] [facility] [address] [facility] [id number] [place] [address]- 9749 May, [facility] [place] [facility] [address] [facility] [id number] [place] [address]- 8440 May, [facility] [place] [facility] [address] [facility] [id number] [place] [address]- 4730 Apr, [facility] [place] [facility] [address] [id number] [place] [address]- 8119 Apr, [facility] [place] [facility] [address] [id number] [place] [address]- 0933 Mar, [facility] [place] [facility] [address] [id number] [place] [address]- 4515 Mar, [facility] [place] [facility] [address] [facility] [id number] [place] [address]- 5871 Mar, [facility] [place] [facility] [address] [id number] [place] [address]- 0591 Mar, [facility] [place] [facility] [address] [id number] [place] [address]- 4224 Nov, [facility] [place] [facility] [address] [id number] [place] [address]- 4210 Nov, [facility] [place] [facility] [address] [id number] [place] [address]- 3009 Nov, [facility] [place] [facility] [address] [id number] [place] [address]- 3633 Nov, [facility] [place] [facility] [address] [id number] [place] [address] Oct, [facility] [place] [facility] [address] [id number] [place] [address] Oct, [facility] [place] [facility] [address] [id number] [place] [address] Oct, [facility] [place] [facility] [address] [id number] [place] [address] Oct, [facility] [place] [facility] [address] [id number] [place] [address] Oct, [facility] [place] [facility] [address] [id number] [place] [address] Oct, [facility] [place] [facility] [address] [id number] [place] [address] Oct, [facility] [place] [facility] [address] [id number] [place] [address] Oct, [facility] [place] [facility] [address] [id number] [place] [address] Oct, [facility] [place] [facility] [address] [id number] [place] [address] Oct, [facility] [place] [facility] [address] [id number] [place] [address] September, [facility] [place] [facility] [address] [id number] [place] [address] September, [facility] [address] [id number] [place] [address] Aug, [facility] [place] [facility] [address] [id number] [place] [address] Aug, [facility] [address] [id number] [place] [address] Aug, [facility] [place] [facility] [address] [id number] [place] [address] Aug, [facility] [address] [id number] [place] [address] Aug, [facility] [address] [id number] [place] [address] Aug, [facility] [address] [id number] [place] [address] Jul, [facility] [address] [id number] [place] [address] Jul, [facility] [place] [facility] [address] [id number] [place] [address] Jul, [facility] [address] [id number] [place] [address] Jul, [facility] [place] [facility] [address] [id number] [place] [address] Jul, [facility] [place] [facility] [address] [id number] [place] [address] Jul, [facility] [place] [facility] [address] [id number] [place] [address] Jul, [facility] [place] [facility] [address] [id number] [place] [address] Jul, [facility] [place] [facility] [address] [id number] [place] [address] Jul, [facility] [place] [facility] [address] [id number] [place] [address] Jul, [facility] [place] [facility] [address] [id number] [place] [address] Jul, [facility] [place] [facility] [address] [id number] [place] [address] Jul, [facility] [place] [facility] [address] [id number] [place] [address] Jul, [facility] [place] [facility] [address] [id number] [place] [address] Jul, [facility] [place] [facility] [address] [id number] [place] [address] Jul, [facility] [place] [facility] [address] [id number] [place] [address] Jul, [facility] [place] [facility] [address] [id number] [place] [address] Jun, [facility] [place] [facility] [address] [id number] [place] [address]267 Jun, [facility] [place] [facility] [address] [id number] [place] [address] Jun, [facility] [place] [facility] [address] [id number] [place] [address] Jun, [facility] [place] [facility] [address] [id number] [place] [address] Jun, [facility] [place] [facility] [address] [id number] [place] [address]39 Jun, [facility] [place] [facility] [address] [id number] [place] [address] Jun, [facility] [place] [facility] [address] [id number] [place] [address] Jun, [facility] [place] [facility] [address] [id number] [place] [address] 20 Jun, 2013 [facility] [place] [facility] [address] [id number] [place] [address] 2546 20 Jun, 2013 [facility] [place] [facility] [address] [id number] [place] [address] 2546 18 Jun, 2013 [facility] [place] [facility] [address] [id number] [place] [address] 2546 18 Jun, 2013 [facility] [place] [facility] [address] [id number] [place] [address]45 14 Jun, 2013 [facility] [place] [facility] [address] [id number] [place] [address]146 13 Jun, 2013 [facility] [place] [facility] [address] [facility] [id number] [place] [address] 13 Jun, 2013 [facility] [place] [facility] [address] [id number] [place] [address] 13 Jun, 2013 [facility] [place] [facility] [address] [id number] [place] [address]761 13 Jun, 2013 [facility] [place] [facility] [address] [facility] [id number] [place] [address]- [address] 12 Jun, 2013 [facility] [place] [facility] [address] [facility] [id number] [place] [address] 12 Jun, 2013 [facility] [place] [facility] [address] [id number] [place] [address]48 11 Jun, 2013 [facility] [place] [facility] [address] [id number] [place] [address]- [address]46 11 Jun, 2013 [facility] [place] [facility] [address] [id number] [place] [address] 10 Jun, 2013 [facility] [place] [facility] [address] [facility] [id number] [place] [address] 07 Jun, 2013 [facility] [place] [facility] [address] [facility] [id number] [place] [address]279 Jun, [facility] [place] [facility] [address] [id number] [place] [address]136 Jun, [facility] [place] [facility] [address] [id number] [place] [address] Jun, [facility] [place] [facility] [address] [id number] [place] [address]16 Jun, 2013 [facility] [place] [facility] [address] [id number] [place] [address] Jun, [facility] [place] [facility] [address] [id number] [place] [address] 4297 Jun, [facility] [place] [facility] [address] [id number] [place] [address] Jun, [facility] [place] [facility] [address] [id number] [place] [address] May, [facility] [place] [facility] [address] [id number] [place] [address] May, [facility] [place] [facility] [address] [id number] [place] [address] May, [facility] [place] [facility] [address] [id number] [place] [address] May, [facility] [place] [facility] [address] [id number] [place] [address] 6659 May, [facility] [place] [facility] [address] [id number] [place] [address]- [address]484 May, [facility] [place] [facility] [address] [id number] [place] [address]676 May, [facility] [place] [facility] [address] [id number] [place] [address] May, [facility] [place] [facility] [address] [id number] [place] [address]64 May, [facility] [place] [address] [id number] [place] [address] May, [facility] [address] [facility] [id number] [place] [address] May, [facility] [place] [address] [facility] [id number] [place] [address] May, [facility] [place] [address] [id number] [place] [address]- [address] May, [facility] [place] [address] [facility] [id number] [place] [address]284 May, [facility] [place] [address] [facility] [id number] [place] [address] 4039 May, [facility] [place] [address] [facility] [id number] [place] [address]- 75[address] Apr, [facility] [place] [address] [facility] [id number], [place] [address] Apr, [facility] [place] [address] [facility] [id number], [place] [address] Dec, [facility] [place] [address] [facility] [id number], [place] [address] Nov, [facility] [place] [address] [facility] [id number], [place] [address] May, [facility] [place] [address] [facility] [id number], [place] [address] Apr, [facility] [place] [address] [facility] [id number], [place] [address] Apr, [facility] [place] [address] [facility] [id number], [place] [address] Apr, [facility] [place] [address] [facility] [id number], [place] [address] Apr, IMMUNIZATIONS No Known Immunizations SOCIAL HISTORY Never Assessed REASON FOR VISIT sore in nose Pt reports sore in L nostril for 2-3 days, area is swollen and red , Pt reports it is interfering with her breathing. [facility] [place] PLAN OF CARE Activity Details Follow Up prn Reason: VITAL SIGNS Height 64 in 2017-06-07 Weight 198.8 lbs 2017-06-07 Temperature 96.8 degrees Fahrenheit 2017-06-07 Heart Rate 84 bpm 2017-06-07 Respiratory Rate 20 2017-06-07 BMI 34.12 kg/m2 2017-06-07 Blood pressure systolic 132 mmHg 2017-06-07 Blood pressure diastolic 84 mmHg 2017-06-07 MEDICATIONS Medication Instructions Dosage Frequency Start Date End Date Duration Status Calamine - Not-Taking Carafate 1 GM Orally Twice a day 1 tablet at bedtime on an empty stomach before meals 12h 90 days Not-Taking Pravastatin Sodium 40 mg Orally Once a day 1 tablet 24h 14 Sep, 2014 90 days Active NovoLog Flexpen 100 UNIT/ML Subcutaneous 3 times a day 25 units 8h 07 Dec, 2014 Active Test strips Test Strips Frank Contour test strips 2 times a day test blood sugar 12h Feb, Active Levemir Flexpen 100 unit/mL (3 mL) subcutaneous 2 times a day 50 units 12h 24 Aug, 2013 Active Famotidine 20 mg Orally twice a day 1 tablet at bedtime 12h 90 days Not-Taking Bactroban Nasal 2 % Nasally Twice a day 1 application 12h May, May, 5 day(s) Active Test strips Test Strips Contour teststrips directed 12h Dec, Active Gabapentin 300 MG Orally Three times a day 3 capsules 8h 20 Mar, 2015 30 days Not-Taking Pen Oxford 32G X 4 MM as directed Dec, 90 days Active Proventil HFA 108 (90 Base) MCG/ACT Inhalation every 4 hrs 2 puffs as needed 4h Dec, Active RESULTS No Results PROCEDURES No Known procedures INSTRUCTIONS MEDICATIONS ADMINISTERED No Known Medications MEDICAL (GENERAL) HISTORY Type Description Date Medical History asthma Medical History type II diabetes Medical History sleep apnea Medical History narcolepsy Surgical History hysterectomy Hospitalization History Chest pain-[facility] 02/27/17
--- OUTSIDE RECORDS SUMMARY | 2017-12-01 19:16 | XMS REPORT ---
Author Author TAWANA QUINTEN [facility] Address [address] [place] [address] Care Team Providers Care Hogshead Liner Name Role Phone QUINTEN GILLIAM Unavailable PROBLEMS Type Condition ICD9-CM Code APH68-OA Code Onset Dates Condition Status SNOMED Code Problem Right carpal tunnel syndrome G56.01 Active 68989115 Problem Gastroesophageal reflux disease with esophagitis K21.0 Active 717899587 Problem Falls frequently R29.6 Active 270637250 Problem Porokeratosis Q82.8 Active 421674442 Problem Posterior subcapsular age-related cataract of both eyes H25.043 Active 2180411 Problem Non-alcoholic fatty liver disease K76.0 Active 683211010 Problem Delayed gastric emptying K30 Active 184639445 Problem Pain in left foot M79.672 Active 6368973 Problem Other chronic pain G89.29 Active 00877537 Problem Tarsal tunnel syndrome of left side G57.52 Active 78728553 Problem Obesity E66.9 Active 458500098 Problem Hypermetropia, bilateral H52.03 Active 92878534 Problem Type 2 diabetes mellitus with hyperglycemia E11.65 Active 60839431 Problem Nuclear cataract of both eyes H25.13 Active 37920129 Problem Presbyopia OU H52.4 Active 14665121 Problem Obstructive sleep apnea G47.33 Active 67819866 Problem Shortness of breath R06.02 Active 745065670 Problem Type 2 diabetes mellitus with diabetic polyneuropathy E11.42 Active 28558969 Problem Lung nodule R91.1 Active 689203865 Problem Mixed hyperlipidemia E78.2 Active 203472845 Problem Primary narcolepsy with cataplexy G47.411 Active 540095881 ALLERGIES No Information ENCOUNTERS Encounter Location Date Diagnosis [facility] [address] [facility] [id number] [address] Nov, [facility] [id number] [address] 0149 Nov, [facility] [address] [address] 2784 Oct, [facility] [id number] [place] [address] 13360- 4487 Oct, [facility] [id number] [place] [address] 12367- 2984 September, [facility] [id number] [place] [address] 52276- 9638 September, Type 2 diabetes mellitus with hyperglycemia E11.65 [facility] [id number] [place] [address] 34456- 5075 September, Type 2 diabetes mellitus with hyperglycemia E11.65 [facility] [id number] [place] [address] 97838- 7905 September, Porokeratosis Q82.8 and Type 2 diabetes mellitus with diabetic polyneuropathy E11.42 [facility] [address] [address] Aug, Seasonal allergic rhinitis, unspecified trigger J30.2 [facility] [id number] [place] [address] 41006- 5204 Aug, [facility] [id number] [place] [address] 95664- 2596 Aug, [facility] [id number] [place] [address] [id number] Aug, Dental examination V72.2 and Dental examination Z01.20 [facility] [id number] [place] [address] 72558- 9919 Aug, Dental examination Z01.20 and Dental caries K02.9 [facility] [address] [address] 3696 Aug, Obstructive sleep apnea G47.33 ; Obesity E66.9 ; Type 2 diabetes mellitus with hyperglycemia E11.65 ; Palpitations R00.2 and Corns and callosities L84 [place] [address] 44915- 3268 Jul, [place] [address] [place] [id number]- 1179 Jul, [place] [address] 42886- 7802 Jun, Type 2 diabetes mellitus with hyperglycemia E11.65 ; Colon cancer screening Z12.11 ; Mixed hyperlipidemia E78.2 ; Non-alcoholic fatty liver disease K76.0 ; Gastroesophageal reflux disease with esophagitis K21.0 and Pain of upper abdomen R10.10 [place] [address] 19957- 5515 Jun, Falls frequently R29.6 [facility] [address] [address] -1412 May, Infection of nose J34.89 [place] [address] 95059- 6629 May, Bilateral low back pain without sciatica M54.5 [place] [address] 42894- 5967 May, Type 2 diabetes mellitus with diabetic polyneuropathy E11.42 ; Obstructive sleep apnea G47.33 and Type 2 diabetes mellitus with hyperglycemia E11.65 [place] [id number] [place] [address] 66912- 7347 Apr, Bilateral low back pain without sciatica M54.5 [place] [address] 65171- 8592 Apr, Mixed hyperlipidemia E78.2 and Type 2 diabetes mellitus with hyperglycemia E11.65 [place] [id number] [place] [address] 84543- 9011 Apr, Type 2 diabetes mellitus with diabetic polyneuropathy E11.42 [place] [address] 62025- 0168 Apr, [facility] [address] 09673- 1477 Apr, Skin lesion of left arm L98.9 and Skin lesion of left leg L98.9 [facility] [id number] [place] [address] 77066- 1832 Mar, Bilateral low back pain without sciatica M54.5 [facility] [address] 67675- 3626 Mar, Plantar fasciitis of left foot M72.2 ; Bursitis of left foot M71.572 and Type 2 diabetes mellitus with diabetic polyneuropathy E11.42 [facility] [address] 71995- 6463 Feb, Non-alcoholic fatty liver disease K76.0 ; Keratoacanthoma L85.8 ; Seborrheic keratosis L82.1 ; Type 2 diabetes mellitus with hyperglycemia E11.65 and Nuclear cataract of both eyes H25.13 [facility] [address] [id number] Feb, [facility] [address] 14762- 3681 Feb, [facility] [address] 41799- 7662 Feb, [facility] [address] 90472- 3917 Feb, Type 2 diabetes mellitus with hyperglycemia E11.65 ; Back muscle spasm M62.830 and Encounter for immunization Z23 [facility] [address] 98602- 6110 Jan, Plantar fasciitis of left foot M72.2 [facility] [address] 58861- 1609 Dec, [facility] [address] 89439- 3446 Dec, Plantar fasciitis of left foot M72.2 and Tarsal tunnel syndrome of left side G57.52 [facility] [id number] [place] [address] 19367- 7941 Dec, [facility] [id number] [place] [address] 70510 -4603 Nov, Mary Jane rash of groin B37.89 and Rash and nonspecific skin eruption R21 [place] [id number] [place] [address] 89574- 7382 Nov, [place] [id number] [place] [address] 20715- 1165 Oct, Type 2 diabetes mellitus with hyperglycemia E11.65 and Mixed hyperlipidemia E78.2 [place] [id number] [place] [address] 74854- 7009 Oct, [facility] [id number] [place] [address] 71410- 0477 Oct, Chest pain, unspecified R07.9 ; Palpitations R00.2 ; Syncope R55 and Mixed hyperlipidemia E78.2 [place] [id number] [place] [address] 13632- 0091 Oct, Plantar fasciitis, bilateral M72.2 and Type 1 diabetes mellitus with diabetic neuropathy E10.40 [place] [id number] [place] [address] 13522- 0012 Oct, [place] [id number] [place] [address] 77578- 9405 September, Type 2 diabetes mellitus with hyperglycemia E11.65 [place] [id number] [place] [address] 46889- 1117 September, Type 2 diabetes mellitus with hyperglycemia E11.65 ; Type 2 diabetes mellitus with diabetic polyneuropathy E11.42 ; Gastroesophageal reflux disease with esophagitis K21.0 and Headache, unspecified headache type R51 [place] [address] [place] [address]- 4772 September, [facility] [id number] [place] [address] 71098- 5319 September, [facility] [id number] [place] [address] 66206- 2042 September, [facility] [id number] [place] [address] 45181- 4517 September, Other chest pain R07.89 ; Heart palpitations R00.2 ; Mixed hyperlipidemia E78.2 and Obesity E66.9 [facility] [id number] [place] [address] 80319- 7984 Aug, [facility] [id number] [place] [address] 20689- 5859 Aug, Type 2 diabetes mellitus with diabetic polyneuropathy E11.42 and Type 2 diabetes mellitus with hyperglycemia E11.65 [facility] [id number] [address]- 5406 Aug, [facility] [id number] [place] [address] 17342- 1234 Aug, [facility] [id number] [place] [address] 44788- 8633 Aug, [facility] [id number] [place] [address] 71844- 5602 Aug, Type 2 diabetes mellitus with hyperglycemia E11.65 [facility] [address] [address]- 0830 Aug, [facility] [id number] [place] [address] 45603- 0287 Jul, Type 2 diabetes mellitus with diabetic polyneuropathy E11.42 [facility] [address] [address]- 9876 Jul, Type 2 diabetes mellitus with hyperglycemia E11.65 [facility] [id number] [place] [address] 50879- 2659 Jul, [facility] [id number] [place] [address] 39358- 7160 Jul, [facility] [id number] [place] [address] 54276- 4302 Jul, [facility] [id number] [place] [address] 86906- 1108 Jul, Type 2 diabetes mellitus with diabetic polyneuropathy E11.42 and Type 2 diabetes mellitus with hyperglycemia E11.65 [facility] [id number] [place] [address] 00788- 1673 Jun, Obstructive sleep apnea G47.33 [facility] [id number] [place] [address] 01270- 4712 Jun, Type 2 diabetes mellitus with diabetic polyneuropathy E11.42 ; Primary narcolepsy with cataplexy G47.411 ; Abdominal bloating R14.0 ; Other chest pain R07.89 and Vision problems H54.7 [facility] [id number] [place] [address] 75178- 7769 Jun, [facility] [id number] [place] [address] 60878- 2527 May, [facility] [id number] [place] [address] 67570- 9336 Apr, [facility] [id number] [place] [address] 58547- 2393 Apr, Plantar fasciitis of left foot M72.2 [facility] [id number] [place] [address] 74827- 6884 Mar, [facility] [id number] [place] [address] 41867- 1149 Mar, Plantar fasciitis of left foot M72.2 and Type 2 diabetes mellitus with diabetic polyneuropathy E11.42 [facility] [id number] [place] [address] 72561- 7880 Feb, Type 2 diabetes mellitus with hyperglycemia E11.65 ; Mixed hyperlipidemia E78.2 and Encounter for immunization Z23 [facility] [id number] [place] [address] 68044- 9919 Feb, [facility] [id number] [place] [address] 72880- 6434 Feb, [facility] [id number] [place] [address] 74146- 3704 Feb, Type 2 diabetes mellitus with hyperglycemia E11.65 [place] [id number] [place] [address] 35564- 4523 Feb, Type 2 diabetes mellitus with hyperglycemia E11.65 [place] [id number] [place] [address] 65570- 6627 Jan, [place] [id number] [place] [address] 67161- 7627 Dec, Pain in left foot M79.672 ; Other chronic pain G89.29 ; Type 2 diabetes mellitus with hyperglycemia E11.65 ; Obstructive sleep apnea G47.33 ; Falls frequently R29.6 ; Mixed hyperlipidemia E78.2 and Gastroesophageal reflux disease with esophagitis K21.0 [place] [address] [address]- 6090 Nov, [place] [id number] [place] [address] 17698- 4179 Oct, Type 2 diabetes mellitus with diabetic polyneuropathy E11.42 [place] [id number] [place] [address] 36039- 7909 Oct, [facility] [id number] [place] [address] 67740- 0480 Oct, [facility] [id number] [place] [address] 97950- 2532 September, [facility] [id number] [place] [address] 27392- 1123 September, [facility] [address] [address]- 9946 September, [facility] [id number] [place] [address] 31515- 1043 September, [facility] [id number] [place] [address] 03690- 3745 September, [facility] [id number] [place] [address] 83210- 5217 Aug, Type 2 diabetes mellitus with hyperglycemia E11.65 ; Mixed hyperlipidemia E78.2 and Right carpal tunnel syndrome G56.01 [facility] [id number] [place] [address] 41275- 7473 Aug, [facility] [id number] [place] [address] 10650- 5789 Jul, [facility] [id number] [place] [address] 65289- 5471 Jun, [facility] [id number] [place] [address] 32943- 0324 Jun, [facility] [id number] [place] [address] 33065- 1989 May, [facility] [address] [address]- 8861 May, [facility] [id number] [place] [address] 47592- 8934 May, Type 2 diabetes mellitus with hyperglycemia E11.65 and Falls E888.9 [facility] [id number] [place] [address] 45105- 5296 Apr, Type 2 diabetes mellitus with hyperglycemia E11.65 [facility] [address] [address]- 9587 Apr, [facility] [id number] [place] [address] 25612- 0109 Apr, Type 2 diabetes mellitus with hyperglycemia E11.65 [facility] [id number] [place] [address] 17995- 9018 Apr, [facility] [address] 69255- 2417 Mar, Type 2 diabetes mellitus with diabetic polyneuropathy E11.42 ; Bilateral low back pain without sciatica M54.5 and Dry nose J34.89 [facility] [address] 03901- 5334 Mar, Palpitations R00.2 ; Syncope R55 ; DM (diabetes mellitus) E11.9 and Obesity E66.9 [facility] [address] 60759- 0647 Mar, [facility] [address] 35598- 9328 Mar, [facility] [address] 89580- 9793 Mar, [facility] [id number] [place] [address] 66159- 8937 Feb, [facility] [id number] [place] [address] 91935- 2322 Jan, [facility] [id number] [place] [address] 37088- 3933 Jan, [facility] [address] 73762- 1403 Jan, Falls E888.9 and Sinusitis 473.9 [facility] [address] 31394- 3020 Dec, [facility] [id number] [place] [address] 42679- 0139 Dec, [facility] [address] 04198- 5118 Dec, [facility] [id number] [place] [address] 22135- 3248 Dec, [facility] [id number] [place] [address] 42265- 2856 Dec, Diabetes mellitus without mention of complication, type II or unspecified type, not stated as uncontrolled 250.00 and Shortness of breath 786.05 [facility] [id number] [place] [address] 50654- 3648 Dec, [facility] [id number] [place] [address] 64358- 8875 Nov, [facility] [id number] [place] [address] 39251- 6479 Nov, [facility] [id number] [place] [address] 12862- 3320 Oct, Restrictive lung disease 518.89 [facility] [id number] [place] [address] 67656- 6941 Oct, [facility] [id number] [place] [address] 85562- 1811 Oct, Shortness of breath 786.05 [facility] [id number] [place] [address] 90745- 2292 September, Other nonspecific abnormal finding of lung field 793.19 ; Diabetes mellitus without mention of complication, type II or unspecified type, not stated as uncontrolled 250.00 ; Hyperlipidemia LDL goal < 100 272.4 ; Narcolepsy, with cataplexy 347.01 ; Shortness of breath 786.05 and Chest pain 786.50 [facility] [id number] [place] [address] 93752- 7416 Aug, [facility] [id number] [place] [address] 63585- 1302 Aug, [facility] [id number] [place] [address] 98903- 4251 Jun, [facility] [place] [facility] [address] [id number] [place] [address]- 9008 Jun, 2014 [facility] [place] [facility] [address] [id number] [place] [address]- 2892 Jun, 2014 [facility] [place] [facility] [address] [id number] [place] [address]- 8406 Jun, 2014 [facility] [place] [facility] [address] [id number] [place] [address]- 7388 Jun, 2014 [facility] [place] [facility] [address] [id number] [place] [address]- 7237 Jun, 2014 [facility] [place] [facility] [address] [id number] [place] [address]- 4541 Jun, 2014 [facility] [place] [facility] [address] [id number] [place] [address]- 1566 Jun, 2014 [facility] [place] [facility] [address] [id number] [place] [address]- 7820 May, [facility] [place] [facility] [address] [id number] [place] [address]- 0951 May, [facility] [place] [facility] [address] [id number] [place] [address]- 1774 Apr, [facility] [place] [facility] [address] [id number] [place] [address]- 1263 Apr, [facility] [place] [facility] [address] [id number] [address]- 5302 Mar, [facility] [place] [facility] [address] [id number] [place] [address]- 2018 Mar, [facility] [place] [facility] [address] [id number] [place] [address]- 3328 Mar, [facility] [place] [facility] [address] [id number] [place] [address]- 8775 Mar, [facility] [place] [facility] [address] [id number] [place] [address]- 8814 Nov, [facility] [place] [facility] [address] [id number] [place] [address]- 1352 Nov, [facility] [place] [facility] [address] [id number] [place] [address]- 0242 Nov, [facility] [place] [facility] [address] [id number] [place] [address]- 0981 Nov, [facility] [place] [facility] [address] [id number] [place] [address]- 7935 Oct, [facility] [place] [facility] [address] [id number] [place] [address]- 6971 Oct, [facility] [place] [facility] [address] [id number] [place] [address]- 6532 Oct, [facility] [place] [facility] [address] [id number] [place] [address]- 5779 Oct, [facility] [place] [facility] [address] [id number] [place] [address] Oct, [facility] [place] [facility] [address] [id number] [place] [address] Oct, [facility] [place] [facility] [address] [id number] [place] [address] Oct, [facility] [place] [facility] [address] [id number] [place] [address] Oct, [facility] [place] [facility] [address] [id number] [place] [address] Oct, [facility] [place] [facility] [address] [id number] [place] [address] Oct, [facility] [place] [facility] [address] [id number] [place] [address] September, [facility] [place] [facility] [address] [id number] [place] [address] September, [facility] [place] [facility] [address] [id number] [place] [address] Aug, [facility] [place] [facility] [address] [id number] [place] [address] Aug, [facility] [place] [facility] [address] [id number] [place] [address] Aug, [facility] [place] [facility] [address] [id number] [place] [address] Aug, [facility] [place] [facility] [address] [id number] [place] [address] Aug, [facility] [place] [facility] [address] [id number] [place] [address] Aug, [facility] [place] [facility] [address] [id number] [place] [address] Jul, [facility] [place] [facility] [address] [id number] [place] [address] Jul, [facility] [place] [facility] [address] [id number] [place] [address] Jul, [facility] [place] [facility] [address] [id number] [place] [address] Jul, [facility] [place] [facility] [address] [id number] [place] [address] Jul, [facility] [place] [facility] [address] [id number] [place] [address] Jul, [facility] [place] [facility] [address] [id number] [place] [address] Jul, [facility] [place] [facility] [address] [id number] [place] [address] Jul, [facility] [place] [facility] [address] [id number] [place] [address] Jul, [facility] [place] [facility] [address] [id number] [place] [address] Jul, [facility] [place] [facility] [address] [id number] [place] [address] Jul, [facility] [place] [facility] [address] [id number] [place] [address] Jul, [facility] [place] [facility] [address] [facility] [id number] [place] [address] Jul, [facility] [place] [facility] [address] [address] [id number] [place] [address] Jul, [facility] [place] [facility] [address] [id number] [place] [address] Jul, [facility] [place] [facility] [address] [id number] [place] [address] Jul, [facility] [place] [facility] [address] [id number] [place] [address] Jun, [facility] [place] [facility] [address] [id number] [place] [address] Jun, [facility] [place] [facility] [address] [id number] [place] [address] Jun, [facility] [place] [facility] [address] [facility] [id number] [place] [address] Jun, [facility] [place] [facility] [address] [id number] [place] [address] Jun, [facility] [place] [facility] [address] [id number] [place] [address] Jun, [facility] [place] [facility] [address] [id number] [place] [address] Jun, [facility] [place] [facility] [address] [id number] [place] [address] Jun, [facility] [place] [facility] [address] [facility] [id number] [place] [address] Jun, [facility] [place] [facility] [address] [id number] [place] [address] 20 Jun, 2013 [facility] [place] [facility] [address] [id number] [place] [address] 18 Jun, 2013 [facility] [place] [facility] [address] [id number] [place] [address]46 18 Jun, 2013 [facility] [place] [facility] [address] [id number] [place] [address]44 14 Jun, 2013 [facility] [place] [facility] [address] [id number] [place] [address] 13 Jun, 2013 [facility] [place] [facility] [address] [id number] [place] [address] 13 Jun, 2013 [facility] [place] [facility] [address] [id number] [place] [address] 13 Jun, 2013 [facility] [place] [facility] [address] [id number] [place] [address] 13 Jun, 2013 [facility] [place] [facility] [address] [id number] [place] [address] 12 Jun, 2013 [facility] [place] [facility] [address] [facility] [id number] [place] [address] 12 Jun, 2013 [facility] [place] [facility] [address] [facility] [id number] [place] [address] Jun, [facility] [place] [facility] [address] [id number] [place] [address] 11 Jun, 2013 [facility] [place] [facility] [address] [id number] [place] [address] 10 Jun, 2013 [facility] [place] [facility] [address] [id number] [place] [address] 07 Jun, 2013 [facility] [place] [facility] [address] [facility] [id number] [place] [address] 07 Jun, 2013 [facility] [place] [facility] [address] [id number] [place] [address] Jun, [facility] [place] [facility] [address] [id number] [place] [address] Jun, [facility] [place] [facility] [address] [id number] [place] [address] Jun, 2013 [facility] [place] [facility] [address] [id number] [place] [address] Jun, [facility] [place] [facility] [address] [id number] [place] [address] Jun, [facility] [place] [facility] [address] [id number] [place] [address] Jun, [facility] [place] [facility] [address] [id number] [place] [address] May, [facility] [place] [facility] [address] [id number] [place] [address] May, [facility] [place] [facility] [address] [id number] [place] [address] May, [facility] [place] [facility] [address] [id number] [place] [address] May, [facility] [place] [facility] [address] [id number] [place] [address] May, [facility] [place] [facility] [address] [id number] [place] [address] May, [facility] [place] [facility] [address] [id number] [place] [address] May, [facility] [place] [facility] [address] [id number] [place] [address] May, [facility] [place] [facility] [address] [id number] [place] [address] May, [facility] [place] [facility] [address] [id number] [place] [address] May, [facility] [address] [facility] [id number] [place] [address] May, [facility] [address] [facility] [id number] [place] [address] May, [facility] [address] [id number] [address] May, [facility] [address] [facility] [id number] [place] [address] May, [facility] [address] [facility] [id number] [place] [address] May, [facility] [address] [id number] [address] Apr, [facility] [id number] [address] Apr, [facility] [id number] [address] Dec, [facility] [address] [id number] [address] Nov, [facility] [id number] [id number] May, [facility] [address] [id number] [address] Apr, [facility] [address] [id number] [address] Apr, [facility] [address] [id number] [address] Apr, [facility] [address] [id number] [address] Apr, IMMUNIZATIONS No Known Immunizations SOCIAL HISTORY Never Assessed REASON FOR VISIT Repository Medication PLAN OF CARE VITAL SIGNS MEDICATIONS Medication Instructions Dosage Frequency Start Date End Date Duration Status Pravastatin Sodium 40 mg Orally Once a day 1 tablet 24h September, 90 days Active Proventil HFA 108 (90 Base) MCG/ACT Inhalation every 4 hrs 2 puffs as needed 4h Dec, Active Gabapentin 300 MG Orally Three times a day 3 capsules 8h Mar, 30 days Active RESULTS No Results PROCEDURES No Known procedures INSTRUCTIONS MEDICATIONS ADMINISTERED No Known Medications MEDICAL (GENERAL) HISTORY Type Description Date Medical History asthma Medical History type II diabetes Medical History sleep apnea Medical History narcolepsy Surgical History hysterectomy Hospitalization History [facility]/27/17
--- OUTSIDE RECORDS SUMMARY | 2017-12-01 19:17 | XMS REPORT ---
Author Author RENAY HICKS [facility] Address [address] [place] [address] Care Team Providers Care Supervisor Nurse Name Role Phone HICKSCYNTHIAAN Unavailable PROBLEMS Type Condition ICD9-CM Code [id number] Code Onset Dates Condition Status SNOMED Code Problem Right carpal tunnel syndrome G56.01 Active 84970813 Problem Gastroesophageal reflux disease with esophagitis K21.0 Active 662930622 Problem Falls frequently R29.6 Active 158571311 Problem Porokeratosis Q82.8 Active 366455879 Problem Posterior subcapsular age-related cataract of both eyes H25.043 Active 2509405 Problem Non-alcoholic fatty liver disease K76.0 Active 476284574 Problem Delayed gastric emptying K30 Active 963217844 Problem Pain in left foot M79.672 Active 6525578 Problem Other chronic pain G89.29 Active 07381956 Problem Tarsal tunnel syndrome of left side G57.52 Active 80179630 Problem Obesity E66.9 Active 311338720 Problem Hypermetropia, bilateral H52.03 Active 30623461 Problem Type 2 diabetes mellitus with hyperglycemia E11.65 Active 48668830 Problem Nuclear cataract of both eyes H25.13 Active 38986031 Problem Presbyopia OU H52.4 Active 68956323 Problem Obstructive sleep apnea G47.33 Active 34029005 Problem Shortness of breath R06.02 Active 385016333 Problem Type 2 diabetes mellitus with diabetic polyneuropathy E11.42 Active 50604880 Problem Lung nodule R91.1 Active 721549294 Problem Mixed hyperlipidemia E78.2 Active 584914636 Problem Primary narcolepsy with cataplexy G47.411 Active 822554189 ALLERGIES No Information ENCOUNTERS Encounter Location Date Diagnosis [facility] [address] [facility] [id number] [address] Nov, [facility] [address] [place] [id number] [place] [address] 75152- 8832 Nov, [facility] [address] [address] 2592 Oct, [facility] [address] [place] [id number] [place] [address] 11948- 6137 Oct, [facility] [id number] [place] [address] 84188- 3889 September, [facility] [address] [place] [id number] [place] [address] 07874- 8729 September, Type 2 diabetes mellitus with hyperglycemia E11.65 [facility] [address] [place] [id number] [place] [address] 78777- 3485 September, Type 2 diabetes mellitus with hyperglycemia E11.65 [place] [address] [place] [id number] [place] [address] 10137- 9290 September, Porokeratosis Q82.8 and Type 2 diabetes mellitus with diabetic polyneuropathy E11.42 [facility] [id number] [place] [address] 42369 -5133 Aug, Seasonal allergic rhinitis, unspecified trigger J30.2 [facility] [id number] [place] [address] 18833- 6812 Aug, [facility] [id number] [place] [address] 98545- 6546 Aug, [facility] [id number] [place] [address] [id number] Aug, Dental examination V72.2 and Dental examination Z01.20 [facility] [id number] [place] [address] 71522- 2722 Aug, Dental examination Z01.20 and Dental caries K02.9 [facility] [id number] [place] [address] 54877- 5821 Aug, Obstructive sleep apnea G47.33 ; Obesity E66.9 ; Type 2 diabetes mellitus with hyperglycemia E11.65 ; Palpitations R00.2 and Corns and callosities L84 [place] [address] 08536- 1526 Jul, [place] [address] 95313- 5288 Jul, [place] [address] 45013- 4351 Jun, Type 2 diabetes mellitus with hyperglycemia E11.65 ; Colon cancer screening Z12.11 ; Mixed hyperlipidemia E78.2 ; Non-alcoholic fatty liver disease K76.0 ; Gastroesophageal reflux disease with esophagitis K21.0 and Pain of upper abdomen R10.10 [place] [address] 12779- 9708 09 Jun, 2017 Falls frequently R29.6 [facility] [place] [address] 57325 -3552 May, Infection of nose J34.89 [place] [address] 10756- 3020 May, Bilateral low back pain without sciatica M54.5 [place] [address] 51798- 6793 May, Type 2 diabetes mellitus with diabetic polyneuropathy E11.42 ; Obstructive sleep apnea G47.33 and Type 2 diabetes mellitus with hyperglycemia E11.65 [place] [address] 15779- 3799 Apr, Bilateral low back pain without sciatica M54.5 [place] [address] 33266- 3990 Apr, Mixed hyperlipidemia E78.2 and Type 2 diabetes mellitus with hyperglycemia E11.65 [place] [address] [place] [id number] [place] [address] 35872- 6736 Apr, Type 2 diabetes mellitus with diabetic polyneuropathy E11.42 [place] [address] 79761- 9172 Apr, [facility] [address] [place] [address] [id number] [place] [address] 82656- 3843 Apr, Skin lesion of left arm L98.9 and Skin lesion of left leg L98.9 [facility] [address] [place] [id number] [place] [address] 59394- 9095 Mar, Bilateral low back pain without sciatica M54.5 [facility] [address] 15438- 3806 Mar, Plantar fasciitis of left foot M72.2 ; Bursitis of left foot M71.572 and Type 2 diabetes mellitus with diabetic polyneuropathy E11.42 [place] [address] 30774- 3453 Feb, Non-alcoholic fatty liver disease K76.0 ; Keratoacanthoma L85.8 ; Seborrheic keratosis L82.1 ; Type 2 diabetes mellitus with hyperglycemia E11.65 and Nuclear cataract of both eyes H25.13 [facility] [address] [id number] Feb, [facility] [address] 25761- 6422 Feb, [facility] [address] [place] [id number] [place] [address] 80759- 1751 Feb, [facility] [address] 68217- 4792 Feb, Type 2 diabetes mellitus with hyperglycemia E11.65 ; Back muscle spasm M62.830 and Encounter for immunization Z23 [facility] [address] 11122- 7546 Jan, Plantar fasciitis of left foot M72.2 [facility] [address] 29555- 6608 Dec, [facility] [address] 12747- 0003 Dec, Plantar fasciitis of left foot M72.2 and Tarsal tunnel syndrome of left side G57.52 [place] [address] [place] [id number] [place] [address] 53182- 7554 Dec, [facility] [address] [place] [id number] [place] [address] 05682 -1365 Nov, Mary Jane rash of groin B37.89 and Rash and nonspecific skin eruption R21 [facility] [address] [place] [id number] [place] [address] 23840- 0064 Nov, [place] [address] 57389- 9511 Oct, Type 2 diabetes mellitus with hyperglycemia E11.65 and Mixed hyperlipidemia E78.2 [place] [address] 77612- 9267 Oct, [place] [address] 70569- 1997 Oct, Chest pain, unspecified R07.9 ; Palpitations R00.2 ; Syncope R55 and Mixed hyperlipidemia E78.2 [place] [address] 55755- 7253 Oct, Plantar fasciitis, bilateral M72.2 and Type 1 diabetes mellitus with diabetic neuropathy E10.40 [place] [address] [place] [id number] [place] [address] 27858- 9345 Oct, [place] [address] [place] [id number] [place] [address] 05999- 2709 September, Type 2 diabetes mellitus with hyperglycemia E11.65 [place] [address] 47874- 4803 September, Type 2 diabetes mellitus with hyperglycemia E11.65 ; Type 2 diabetes mellitus with diabetic polyneuropathy E11.42 ; Gastroesophageal reflux disease with esophagitis K21.0 and Headache, unspecified headache type R51 [place] [address] [place] [address]- 0327 September, [facility] [address] [id number] [address]- 2920 September, [facility] [address] [place] [address] [id number] [place] [address] 25849- 8284 September, [facility] [address] [place] [id number] [place] [address] 91486- 3951 September, Other chest pain R07.89 ; Heart palpitations R00.2 ; Mixed hyperlipidemia E78.2 and Obesity E66.9 [facility] [address] [place] [id number] [place] [address] 11097- 0378 Aug, [facility] [address] [place] [id number] [place] [address] 56265- 9600 Aug, Type 2 diabetes mellitus with diabetic polyneuropathy E11.42 and Type 2 diabetes mellitus with hyperglycemia E11.65 [facility] [address] [place] [id number] [place] [address] 47174- 9696 Aug, [facility] [address] [place] [address] [id number] [place] [address] 02226- 8511 Aug, [facility] [address] [place] [id number] [place] [address] 68672- 3400 Aug, [facility] [id number] [address]- 8589 Aug, Type 2 diabetes mellitus with hyperglycemia E11.65 [facility] [address] [address]- 2982 Aug, [facility] [id number] [place] [address] 53124- 7817 Jul, Type 2 diabetes mellitus with diabetic polyneuropathy E11.42 [facility] [address] [address]- 8918 Jul, Type 2 diabetes mellitus with hyperglycemia E11.65 [facility] [address] [place] [id number] [place] [address] 07369- 6572 Jul, [facility] [address] [address]- 0337 Jul, [facility] [address] [place] [id number] [place] [address] 20692- 5059 Jul, [facility] [address] [place] [id number] [place] [address] 46907- 2728 Jul, Type 2 diabetes mellitus with diabetic polyneuropathy E11.42 and Type 2 diabetes mellitus with hyperglycemia E11.65 [facility] [id number] [place] [address] 46196- 3609 Jun, Obstructive sleep apnea G47.33 [facility] [address] [place] [id number] [place] [address] 52321- 0925 Jun, Type 2 diabetes mellitus with diabetic polyneuropathy E11.42 ; Primary narcolepsy with cataplexy G47.411 ; Abdominal bloating R14.0 ; Other chest pain R07.89 and Vision problems H54.7 [facility] [address] [address]- 3600 Jun, [facility] [address] [place] [id number] [place] [address] 35870- 2186 May, [facility] [address] [place] [id number] [place] [address] 39739- 9847 Apr, [facility] [address] [place] [id number] [place] [address] 27645- 0700 Apr, Plantar fasciitis of left foot M72.2 [facility] [address] [address]- 3655 Mar, [facility] [address] [place] [id number] [place] [address] 81293- 7771 Mar, Plantar fasciitis of left foot M72.2 and Type 2 diabetes mellitus with diabetic polyneuropathy E11.42 [facility] [address] [place] [id number] [place] [address] 21416- 1313 Feb, Type 2 diabetes mellitus with hyperglycemia E11.65 ; Mixed hyperlipidemia E78.2 and Encounter for immunization Z23 [facility] [address] [place] [id number] [place] [address] 25512- 2013 Feb, [facility] [address] [place] [id number] [place] [address] 92915- 4431 Feb, [facility] [address] 83385- 2758 Feb, Type 2 diabetes mellitus with hyperglycemia E11.65 [place] [address] [place] [id number] [place] [address] 48341- 0356 Feb, Type 2 diabetes mellitus with hyperglycemia E11.65 [place] [address] [place] [id number] [place] [address] 17966- 1804 Jan, [place] [address] 37107- 5399 Dec, Pain in left foot M79.672 ; Other chronic pain G89.29 ; Type 2 diabetes mellitus with hyperglycemia E11.65 ; Obstructive sleep apnea G47.33 ; Falls frequently R29.6 ; Mixed hyperlipidemia E78.2 and Gastroesophageal reflux disease with esophagitis K21.0 [place] [address] [place] [id number] [place] [address] 32060- 7630 Nov, [place] [address] [place] [id number] [place] [address] 43176- 2926 Oct, Type 2 diabetes mellitus with diabetic polyneuropathy E11.42 [place] [address] [place] [id number] [place] [address] 42674- 8584 Oct, [place] [address] [place] [id number] [place] [address] 97211- 4295 Oct, [facility] [address] [place] [id number] [place] [address] 21214- 8791 September, [facility] [address] [place] [id number] [place] [address] 78481- 9748 September, [facility] [address] [address]- 4992 September, [facility] [address] 0546 September, [facility] [address]- 3349 September, [facility] [address] [place] [id number] [place] [address] 01882- 3716 Aug, Type 2 diabetes mellitus with hyperglycemia E11.65 ; Mixed hyperlipidemia E78.2 and Right carpal tunnel syndrome G56.01 [facility] [address] [id number] [address]- 7505 Aug, [facility] [id number] [address]- 6924 Jul, [facility] [address] [place] [id number] [place] [address] 01277- 5523 Jun, [facility] [address] [address]- 5705 Jun, [facility] [address] [address]- 8441 May, [facility] [address] [address]- 6854 May, [facility] [address] [address]- 6943 May, Type 2 diabetes mellitus with hyperglycemia E11.65 and Falls E888.9 [facility] [address] [address]- 9645 Apr, Type 2 diabetes mellitus with hyperglycemia E11.65 [facility] [address], [place] [address]- 5763 Apr, [facility] [address] [address]- 3983 Apr, Type 2 diabetes mellitus with hyperglycemia E11.65 [facility] [address] [place] [id number] [place] [address] 80167- 6658 Apr, [facility] [address] 90612- 2481 Mar, Type 2 diabetes mellitus with diabetic polyneuropathy E11.42 ; Bilateral low back pain without sciatica M54.5 and Dry nose J34.89 [facility] [address] 22438- 6060 Mar, Palpitations R00.2 ; Syncope R55 ; DM (diabetes mellitus) E11.9 and Obesity E66.9 [facility] [address] 59855- 7863 Mar, [facility] [address] 20115- 1004 Mar, [facility] [address] 32604- 2908 Mar, [facility] [address] [place] [id number] [place] [address] 13263- 0666 Feb, [facility] [address] [place] [id number] [place] [address] 00565- 8476 Jan, [facility] [address] [place] [id number] [place] [address] 97107- 1489 Jan, [facility] [address] [place] [id number] [place] [address] 64756- 7762 Jan, Falls E888.9 and Sinusitis 473.9 [facility] [address] [place] [id number] [place] [address] 56442- 9294 Dec, [facility] [address] [place] [id number] [place] [address] 24523- 1220 Dec, [facility] [address] [place] [id number] [place] [address] 13104- 1382 Dec, [facility] [address], [place] [address]- 9743 Dec, [facility] [address] [place] [id number] [place] [address] 86067- 0334 Dec, Diabetes mellitus without mention of complication, type II or unspecified type, not stated as uncontrolled 250.00 and Shortness of breath 786.05 [facility] [address] [place] [id number] [place] [address] 51834- 3197 Dec, [facility] [address] [place] [id number] [place] [address] 43072- 6291 Nov, [facility] [address] [place] [id number] [place] [address] 90210- 5513 Nov, [facility] [address] [place] [id number] [place] [address] 37353- 5011 Oct, Restrictive lung disease 518.89 [place] [address] [place] [id number] [place] [address] 52639- 9305 Oct, [facility] [address] [place] [id number] [place] [address] 15471- 0574 Oct, Shortness of breath 786.05 [place] [address] [place] [id number] [place] [address] 51113- 2686 September, Other nonspecific abnormal finding of lung field 793.19 ; Diabetes mellitus without mention of complication, type II or unspecified type, not stated as uncontrolled 250.00 ; Hyperlipidemia LDL goal < 100 272.4 ; Narcolepsy, with cataplexy 347.01 ; Shortness of breath 786.05 and Chest pain 786.50 [place] [address] [place] [id number] [place] [address] 20844- 7415 Aug, [facility] [address] [place] [id number] [place] [address] 87809- 9916 Aug, [facility] [id number] [place] [address] 53525- 6200 Jun, [facility] [place] [facility] [address] [id number] [place] [address]- 7437 16 Jun, 2014 [facility] [place] [facility] [address] [id number] [place] [address]- 2817 Jun, 2014 [facility] [place] [facility] [address] [id number] [place] [address]- 9598 Jun, 2014 [facility] [place] [facility] [address] [id number] [place] [address]- 8967 Jun, 2014 [facility] [place] [facility] [address] [id number] [place] [address]- 0907 Jun, 2014 [facility] [place] [facility] [address] [id number] [place] [address]- 0668 Jun, 2014 [facility] [place] [facility] [address] [facility] [id number] [place] [address]- 2363 Jun, 2014 [facility] [place] [facility] [address] [facility] [id number] [place] [address]- 7421 May, [facility] [place] [facility] [address] [facility] [id number] [place] [address]- 7950 May, [facility] [place] [facility] [address] [facility] [id number] [place] [address]- 4477 Apr, [facility] [place] [facility] [address] [facility] [id number] [address]- 9920 Apr, [facility] [place] [facility] [address] [id number], [place] [address]- 1617 Mar, [facility] [place] [facility] [address] [id number] [place] [address]- 2427 Mar, [facility] [place] [facility] [address] [id number] [place] [address]- 2070 Mar, [facility] [place] [facility] [address] [facility] [id number] [address]- 7391 Mar, [facility] [place] [facility] [address] [id number] [address]- 3480 Nov, [facility] [place] [facility] [address] [id number] [place] [address]- 2940 Nov, [facility] [place] [facility] [address] [id number] [place] [address]- 2001 Nov, [facility] [place] [facility] [address] [id number] [place] [address]- 5728 Nov, [facility] [place] [facility] [address] [id number] [place] [address]- 1376 Oct, [facility] [place] [facility] [address] [id number] [place] [address]- 2912 Oct, [facility] [place] [facility] [address] [id number] [place] [address] Oct, [facility] [place] [facility] [address] [id number] [place] [address] Oct, [facility] [place] [facility] [address] [id number] [place] [address] Oct, [facility] [place] [facility] [address] [id number] [place] [address] Oct, [facility] [place] [facility] [address] [id number] [place] [address] Oct, [facility] [place] [facility] [address] [id number] [place] [address] Oct, [facility] [place] [facility] [address] [id number] [place] [address] Oct, [facility] [place] [facility] [address] [id number] [place] [address] Oct, [facility] [place] [facility] [address] [id number] [place] [address] September, [facility] [place] [facility] [address] [id number] [place] [address] September, [facility] [place] [facility] [address] [id number] [place] [address] Aug, [facility] [place] [facility] [address] [id number] [place] [address] Aug, [facility] [place] [facility] [address] [id number] [place] [address] Aug, [facility] [place] [facility] [address] [id number] [place] [address] Aug, [facility] [place] [facility] [address] [id number] [place] [address] Aug, [facility] [place] [facility] [address] [id number] [place] [address] Aug, [facility] [place] [facility] [address] [id number] [place] [address] Jul, [facility] [place] [facility] [address] [id number] [place] [address] Jul, [facility] [place] [facility] [address] [id number] [place] [address] Jul, [facility] [place] [facility] [address] [id number] [place] [address] Jul, [facility] [place] [facility] [address] [id number] [place] [address] Jul, [facility] [place] [facility] [address] [id number] [place] [address] Jul, [facility] [place] [facility] [address] [id number] [place] [address] Jul, [facility] [place] [facility] [address] [id number] [place] [address] Jul, [facility] [place] [facility] [address] [id number] [place] [address] Jul, [facility] [place] [facility] [address] [id number] [place] [address] Jul, [facility] [place] [facility] [address] [id number] [place] [address] Jul, [facility] [place] [facility] [address] [id number] [place] [address] Jul, [facility] [place] [facility] [address] [id number] [place] [address] Jul, [facility] [place] [facility] [address] [id number] [place] [address] Jul, [facility] [place] [facility] [address] [id number] [place] [address] Jul, [facility] [place] [facility] [address] [id number] [place] [address] Jul, [facility] [place] [facility] [address] [facility] [id number] [place] [address] Jun, [facility] [place] [facility] [address] [id number] [place] [address] Jun, [facility] [place] [facility] [address] [id number] [place] [address] Jun, [facility] [place] [facility] [address] [facility] [id number] [place] [address] Jun, [facility] [place] [facility] [address] [facility] [id number] [place] [address] Jun, [facility] [place] [facility] [address] [id number] [place] [address] Jun, [facility] [place] [facility] [address] [id number] [place] [address] Jun, [facility] [place] [facility] [address] [facility] [id number] [place] [address] Jun, [facility] [place] [facility] [address] [facility] [id number] [place] [address] Jun, [facility] [place] [facility] [address] [id number] [place] [address] 20 Jun, 2013 [facility] [place] [facility] [address] [id number] [place] [address] 18 Jun, 2013 [facility] [place] [facility] [address] [id number] [place] [address] 18 Jun, 2013 [facility] [place] [facility] [address] [id number] [place] [address] 14 Jun, 2013 [facility] [place] [facility] [address] [id number] [place] [address] 13 Jun, 2013 [facility] [place] [facility] [address] [id number] [place] [address] 13 Jun, 2013 [facility] [place] [facility] [address] [facility] [id number] [place] [address] 13 Jun, 2013 [facility] [place] [facility] [address] [id number] [place] [address] 13 Jun, 2013 [facility] [place] [facility] [address] [facility] [id number] [place] [address] 12 Jun, 2013 [facility] [place] [facility] [address] [facility] [id number] [place] [address] 12 Jun, 2013 [facility] [place] [facility] [address] [facility] [id number] [place] [address] Jun, [facility] [place] [facility] [address] [id number] [place] [address] Jun, [facility] [place] [facility] [address] [facility] [id number] [place] [address] 10 Jun, 2013 [facility] [place] [facility] [address] [id number] [place] [address] 07 Jun, 2013 [facility] [place] [facility] [address] [facility] [id number] [place] [address] 07 Jun, 2013 [facility] [place] [facility] [address] [id number] [place] [address] 06 Jun, 2013 [facility] [place] [facility] [address] [id number] [place] [address] Jun, [facility] [place] [facility] [address] [id number] [place] [address] Jun, [facility] [place] [facility] [address] [id number] [place] [address] Jun, [facility] [place] [facility] [address] [id number] [place] [address] Jun, [facility] [place] [facility] [address] [id number] [place] [address] Jun, [facility] [place] [facility] [address] [id number] [place] [address] May, [facility] [place] [facility] [address] [id number] [place] [address] May, [facility] [place] [facility] [address] [id number] [place] [address] May, [facility] [place] [facility] [address] [id number] [place] [address] May, [facility] [place] [facility] [address] [id number] [place] [address] May, [facility] [place] [facility] [address] [id number] [place] [address] May, [facility] [place] [facility] [address] [id number] [place] [address] May, [facility] [place] [facility] [address] [id number] [place] [address] May, [facility] [place] [facility] [address] [id number] [place] [address] May, [facility] [place] [facility] [address] [id number] [place] [address] May, [facility] [address] [id number] [address] May, [facility] [address] [facility] [id number], [place] [address] May, [facility] [id number] [address] May, [facility] [id number] [address] May, [facility] [address] [facility] [id number], [place] [address] May, [facility] [id number] [address] Apr, [facility] [id number] [address] [address] Apr, [facility] [id number] [address] Dec, [facility] [id number] [address] Nov, [facility] [id number] [address] May, [facility] [id number] [address] Apr, [facility] [id number] [address] Apr, [facility] [id number] [address] Apr, [facility] [id number] [place] [address] Apr, IMMUNIZATIONS No Known Immunizations SOCIAL HISTORY Never Assessed REASON FOR VISIT PT Evaluation PLAN OF CARE Activity Details Follow Up 3 Weeks Reason:F/U PT VITAL SIGNS MEDICATIONS Unknown Medications RESULTS No Results PROCEDURES Procedure Date Ordered Result Body Site PT EVAL LOW COMPLEX 20 MIN Apr 10, 2017 THERAPEUTIC EXERCISES Apr 10, 2017 INSTRUCTIONS MEDICATIONS ADMINISTERED No Known Medications MEDICAL (GENERAL) HISTORY Type Description Date Medical History asthma Medical History type II diabetes Medical History sleep apnea Medical History narcolepsy Surgical History hysterectomy Hospitalization History Chest pain-[facility] 02/27/17
--- OUTSIDE RECORDS SUMMARY | 2017-12-01 19:18 | XMS REPORT ---
Author Author KATHY BORDEN Organization [facility] Address [address] [place] [address] Care Team Providers Care Food Beverage Manager Name Role Phone KATHY BORDEN Unavailable PROBLEMS Type Condition ICD9-CM Code [id number] Code Onset Dates Condition Status SNOMED Code Problem Primary narcolepsy with cataplexy G47.411 Active 730466478 Problem Falls frequently R29.6 Active 040639902 Problem Right carpal tunnel syndrome G56.01 Active 09182144 Problem Non-alcoholic fatty liver disease K76.0 Active 205257289 Problem Posterior subcapsular age-related cataract of both eyes H25.043 Active 0638995 Problem Tarsal tunnel syndrome of left side G57.52 Active 20259004 Problem Other chronic pain G89.29 Active 27704384 Problem Gastroesophageal reflux disease with esophagitis K21.0 Active 789300342 Problem Obesity E66.9 Active 909953305 Problem Pain in left foot M79.672 Active 9151200 Problem Delayed gastric emptying K30 Active 886307573 Problem Hypermetropia, bilateral H52.03 Active 82754673 Problem Nuclear cataract of both eyes H25.13 Active 83612735 Problem Presbyopia OU H52.4 Active 61716962 Problem Mixed hyperlipidemia E78.2 Active 797051869 Problem Obstructive sleep apnea G47.33 Active 75049486 Problem Type 2 diabetes mellitus with hyperglycemia E11.65 Active 26383228 Problem Shortness of breath R06.02 Active 757209193 Problem Type 2 diabetes mellitus with diabetic polyneuropathy E11.42 Active 84775831 Problem Lung nodule R91.1 Active [id number] ALLERGIES No Information ENCOUNTERS Encounter Location Date Diagnosis [facility] [address] [facility] [id number] [address] September, [facility] [address] [id number] [address] September, [facility] [id number] [place] [address] 29593 -7064 Aug, Seasonal allergic rhinitis, unspecified trigger J30.2 [place] [address] 6[address]60- 0225 Aug, [place] [address] 04877- 5772 Aug, [facility] [address] [id number] Aug, Dental examination V72.2 and Dental examination Z01.20 [place] [address] 92078- 9760 Aug, Dental examination Z01.20 and Dental caries K02.9 [place] [address] 60398- 3287 Aug, Obstructive sleep apnea G47.33 ; Obesity E66.9 ; Type 2 diabetes mellitus with hyperglycemia E11.65 ; Palpitations R00.2 and Corns and callosities L84 [place] [address] 44044- 4050 Jul, [place] [address] 34491- 7087 Jul, [place] [address] 61059- 0803 Jun, Type 2 diabetes mellitus with hyperglycemia E11.65 ; Colon cancer screening Z12.11 ; Mixed hyperlipidemia E78.2 ; Non-alcoholic fatty liver disease K76.0 ; Gastroesophageal reflux disease with esophagitis K21.0 and Pain of upper abdomen R10.10 [place] [address] 35130- 5064 09 Jun, 2017 Falls frequently R29.[address] [facility] [address] 89987 -3819 May, Infection of nose J34.89 [place] [id number] [place] [address] 47276- 7959 May, Bilateral low back pain without sciatica M54.5 [place] [id number] [place] [address] 59964- 4708 May, Type 2 diabetes mellitus with diabetic polyneuropathy E11.42 ; Obstructive sleep apnea G47.33 and Type 2 diabetes mellitus with hyperglycemia E11.65 [place] [address] 25320- 7556 Apr, Bilateral low back pain without sciatica M54.5 [place] [address] 92033- 6235 Apr, Mixed hyperlipidemia E78.2 and Type 2 diabetes mellitus with hyperglycemia E11.65 [place] [id number] [place] [address] 40940- 7308 Apr, Type 2 diabetes mellitus with diabetic polyneuropathy E11.42 [place] [id number] [place] [address] 62148- 5698 Apr, [place] [id number] [place] [address] 46563- 9422 Apr, Skin lesion of left arm L98.9 and Skin lesion of left leg L98.9 [place] [id number] [place] [address] 09798- 7264 Mar, Bilateral low back pain without sciatica M54.5 [place] [id number] [place] [address] 40408- 2537 Mar, Plantar fasciitis of left foot M72.2 ; Bursitis of left foot M71.572 and Type 2 diabetes mellitus with diabetic polyneuropathy E11.42 [place] [id number] [place] [address] 28048- 5035 Feb, Non-alcoholic fatty liver disease K76.0 ; Keratoacanthoma L85.8 ; Seborrheic keratosis L82.1 ; Type 2 diabetes mellitus with hyperglycemia E11.65 and Nuclear cataract of both eyes H25.13 [facility] [address] [id number] Feb, [facility] [address] 15872- 2001 Feb, [facility] [address] 19940- 2608 Feb, [facility] [address] 75712- 7542 Feb, Type 2 diabetes mellitus with hyperglycemia E11.65 ; Back muscle spasm M62.830 and Encounter for immunization Z23 [facility] [address] 92869- 3685 Jan, Plantar fasciitis of left foot M72.2 [facility] [address] 35688- 5163 Dec, [facility] [address] 36620- 2391 Dec, Plantar fasciitis of left foot M72.2 and Tarsal tunnel syndrome of left side G57.52 [facility] [address] 58226- 8775 Dec, [facility] [address] 12501 -1469 Nov, Mary Jane rash of groin B37.89 and Rash and nonspecific skin eruption R21 [facility] [id number] [place] [address] 63909- 1181 Nov, [facility] [address] 61847- 8829 Oct, Type 2 diabetes mellitus with hyperglycemia E11.65 and Mixed hyperlipidemia E78.2 [facility] [address] 95079- 3052 Oct, [facility] [address] 27866- 2858 Oct, Chest pain, unspecified R07.9 ; Palpitations R00.2 ; Syncope R55 and Mixed hyperlipidemia E78.2 [place] [id number] [place] [address] 56974- 5797 Oct, Plantar fasciitis, bilateral M72.2 and Type 1 diabetes mellitus with diabetic neuropathy E10.40 [place] [address] 79378- 1584 Oct, [place] [id number] [place] [address] 96513- 8226 September, Type 2 diabetes mellitus with hyperglycemia E11.65 [place] [id number] [place] [address] 73751- 1572 September, Type 2 diabetes mellitus with hyperglycemia E11.65 ; Type 2 diabetes mellitus with diabetic polyneuropathy E11.42 ; Gastroesophageal reflux disease with esophagitis K21.0 and Headache, unspecified headache type R51 [place] [id number] [place] [address] 14185- 4249 September, [place] [id number] [place] [address] 54175- 6110 September, [place] [id number] [place] [address] 19464- 1955 September, [place] [id number] [place] [address] 14262- 8891 September, Other chest pain R07.89 ; Heart palpitations R00.2 ; Mixed hyperlipidemia E78.2 and Obesity E66.9 [place] [id number] [place] [address] 16351- 5580 Aug, [place] [id number] [place] [address] 06831- 9106 Aug, Type 2 diabetes mellitus with diabetic polyneuropathy E11.42 and Type 2 diabetes mellitus with hyperglycemia E11.65 [place] [id number] [place] [address] 69610- 4771 Aug, [facility] [address], [place] [address] 4[address] Aug, [facility] [address], [place] [address] 5660 Aug, [facility] [address], [place] [address]- 8531 Aug, Type 2 diabetes mellitus with hyperglycemia E11.65 [facility] [address], [place] [address]- 3567 Aug, [facility] [address] [place] [address] 05189- 1588 Jul, Type 2 diabetes mellitus with diabetic polyneuropathy E11.42 [facility] [address], [place] [address]- 0922 Jul, Type 2 diabetes mellitus with hyperglycemia E11.65 [facility] [address], [place] [address]- 3525 Jul, [facility] [address], [place] [address]- 9604 Jul, [facility] [address], [place] [address]- 6689 Jul, [facility] [address], [place] [address]- 7477 Jul, Type 2 diabetes mellitus with diabetic polyneuropathy E11.42 and Type 2 diabetes mellitus with hyperglycemia E11.65 [facility] [address], [place] [address]- 2325 Jun, Obstructive sleep apnea G47.33 [facility] [address], [place] [address]- 1317 Jun, Type 2 diabetes mellitus with diabetic polyneuropathy E11.42 ; Primary narcolepsy with cataplexy G47.411 ; Abdominal bloating R14.0 ; Other chest pain R07.89 and Vision problems H54.7 [facility] [id number] [place] [address] 50115- 1554 Jun, [facility] [id number] [place] [address] 66112- 3246 May, [facility] [id number] [place] [address] 63468- 2983 Apr, [facility] [id number] [place] [address] 12067- 5986 Apr, Plantar fasciitis of left foot M72.2 [facility] [id number] [place] [address] 36473- 9741 Mar, [facility] [id number] [place] [address] 95622- 8114 Mar, Plantar fasciitis of left foot M72.2 and Type 2 diabetes mellitus with diabetic polyneuropathy E11.42 [facility] [id number] [place] [address] 45245- 8323 Feb, Type 2 diabetes mellitus with hyperglycemia E11.65 ; Mixed hyperlipidemia E78.2 and Encounter for immunization Z23 [facility] [id number] [place] [address] 83428- 5051 Feb, [facility] [id number] [place] [address] 53329- 0877 Feb, [facility] [id number] [place] [address] 95569- 4857 Feb, Type 2 diabetes mellitus with hyperglycemia E11.65 [facility] [id number] [place] [address] 97490- 8028 Feb, Type 2 diabetes mellitus with hyperglycemia E11.65 [facility] [id number] [place] [address] 44037- 0430 Jan, [facility] [id number] [place] [address] 79166- 4518 Dec, Pain in left foot M79.672 ; Other chronic pain G89.29 ; Type 2 diabetes mellitus with hyperglycemia E11.65 ; Obstructive sleep apnea G47.33 ; Falls frequently R29.6 ; Mixed hyperlipidemia E78.2 and Gastroesophageal reflux disease with esophagitis K21.0 [facility] [id number] [place] [address] 44672- 9752 Nov, [facility] [id number] [place] [address] 03650- 8939 Oct, Type 2 diabetes mellitus with diabetic polyneuropathy E11.42 [facility] [id number] [place] [address] 32393- 1190 Oct, [facility] [id number] [place] [address] 01368- 8937 Oct, [facility] [id number] [place] [address] 41260- 0318 September, [facility] [id number] [place] [address] 62601- 4615 September, [facility] [id number] [place] [address] 35859- 3411 September, [facility] [id number] [place] [address] 24868- 7807 September, [facility] [id number] [place] [address] 11565- 1837 September, [facility] [id number] [place] [address] 33494- 8400 Aug, Type 2 diabetes mellitus with hyperglycemia E11.65 ; Mixed hyperlipidemia E78.2 and Right carpal tunnel syndrome G56.01 [facility] [id number] [place] [address] 99689- 8923 Aug, [facility] [id number] [place] [address] 93591- 1612 Jul, [facility] [id number] [place] [address] 74872- 1274 Jun, [facility] [address] [place] [address] 75410- 5532 Jun, [facility] [id number] [place] [address] 54230- 5770 May, [facility] [id number] [place] [address] 78563- 8232 May, [facility] [id number] [place] [address] 11840- 3322 May, Type 2 diabetes mellitus with hyperglycemia E11.65 and Falls E888.9 [facility] [id number] [place] [address] 17995- 3119 Apr, Type 2 diabetes mellitus with hyperglycemia E11.65 [facility] [id number] [place] [address] 54862- 0883 Apr, [facility] [id number] [place] [address] 45191- 8746 Apr, Type 2 diabetes mellitus with hyperglycemia E11.65 [facility] [id number] [place] [address] 29571- 8127 Apr, [facility] [id number] [place] [address] 63780- 4291 Mar, Type 2 diabetes mellitus with diabetic polyneuropathy E11.42 ; Bilateral low back pain without sciatica M54.5 and Dry nose J34.89 [facility] [id number] [place] [address] 09178- 3923 Mar, Palpitations R00.2 ; Syncope R55 ; DM (diabetes mellitus) E11.9 and Obesity E66.9 [facility] [id number] [place] [address] 96525- 1049 Mar, [facility] [id number] [place] [address] 16393- 8184 Mar, [facility] [id number] [address]- 3041 Mar, [facility] [id number] [place] [address] 50834- 5504 Feb, [facility] [id number] [place] [address] 348574- 9062 Jan, [facility] [id number] [place] [address] 23478- 2541 Jan, [facility] [id number] [place] [address] 57582- 8441 Jan, Falls E888.9 and Sinusitis 473.9 [facility] [id number] [place] [address] 12281- 4875 Dec, [facility] [id number] [place] [address] 03553- 0601 Dec, [facility] [id number] [place] [address] 70379- 0639 Dec, [facility] [id number] [place] [address] 19657- 2644 Dec, [facility] [id number] [place] [address] 46632- 3424 Dec, Diabetes mellitus without mention of complication, type II or unspecified type, not stated as uncontrolled 250.00 and Shortness of breath 786.05 [facility] [id number] [address]- 3818 Dec, [facility] [id number] [place] [address] 19584- 2737 Nov, [facility] [id number] [place] [address] 72280- 0995 Nov, [facility] [address], [place] [address]- 4149 Oct, Restrictive lung disease 518.89 [facility] [id number] [place] [address] 00390- 8707 Oct, [facility] [id number] [place] [address] 36627- 3109 Oct, Shortness of breath 786.05 [facility] [id number] [place] [address] 74342- 4794 September, Other nonspecific abnormal finding of lung field 793.19 ; Diabetes mellitus without mention of complication, type II or unspecified type, not stated as uncontrolled 250.00 ; Hyperlipidemia LDL goal < 100 272.4 ; Narcolepsy, with cataplexy 347.01 ; Shortness of breath 786.05 and Chest pain 786.50 [facility] [id number] [place] [address] 06004- 3969 Aug, [facility] [id number] [place] [address] 25650- 0413 Aug, [facility] [id number] [place] [address] 18328- 9789 Jun, [facility] [id number] [place] [address] 13443- 1037 Jun, [facility] [id number] [place] [address] 74777- 7270 Jun, [facility] [id number] [place] [address] 74588- 4757 Jun, [facility] [id number] [place] [address] 63721- 0099 Jun, [facility] [id number] [place] [address] 04386- 6004 Jun, [facility] [id number] [place] [address] 88550- 9028 Jun, [facility] [id number] [place] [address] 88413- 2209 Jun, [facility] [id number] [place] [address] 68412- 2531 May, [facility] [place] [facility] [address] [id number] [place] [address]- 2564 May, [facility] [place] [facility] [address] [id number] [place] [address]- 2064 Apr, [facility] [place] [facility] [address] [id number] [place] [address]- 3438 Apr, [facility] [place] [facility] [address] [id number] [place] [address]- 8803 Mar, [facility] [place] [facility] [address] [id number] [place] [address]- 5427 Mar, [facility] [place] [facility] [address] [id number] [place] [address]- 3486 Mar, [facility] [place] [facility] [address] [id number] [place] [address]- 1715 Mar, [facility] [place] [facility] [address] [id number] [place] [address]- 0911 Nov, [facility] [place] [facility] [address] [id number] [place] [address]- 1882 Nov, [facility] [place] [facility] [address] [id number] [place] [address]- 1598 Nov, [facility] [place] [facility] [address] [id number] [place] [address]- 3148 Nov, [facility] [place] [facility] [address] [id number] [place] [address]- 0008 Oct, [facility] [place] [facility] [address] [id number] [place] [address]- 8872 Oct, [facility] [place] [facility] [address] [id number] [place] [address]- 5274 Oct, [facility] [place] [facility] [address] [id number] [place] [address]- 8715 Oct, [facility] [place] [facility] [address] [id number] [place] [address]- 6650 16 Oct, 2013 [facility] [place] [facility] [address] [id number] [place] [address]- 4355 16 Oct, 2013 [facility] [place] [facility] [address] [id number] [place] [address]- 2208 Oct, [facility] [place] [facility] [address] [id number] [place] [address]- 3263 Oct, [facility] [place] [facility] [address] [id number] [place] [address]- 7930 Oct, [facility] [place] [facility] [address] [id number] [place] [address]- 2632 Oct, [facility] [place] [facility] [address] [id number] [place] [address]- 8675 September, [facility] [place] [facility] [address] [id number] [place] [address]- 9803 September, [facility] [place] [facility] [address] [id number] [place] [address]- 0531 Aug, [facility] [place] [facility] [address] [id number] [place] [address]- 1900 Aug, [facility] [place] [facility] [address] [id number] [place] [address]- 0163 Aug, [facility] [place] [facility] [address] [id number] [place] [address]- 8366 Aug, [facility] [place] [facility] [address] [id number] [place] [address]- [address] Aug, [facility] [place] [facility] [address] [id number] [place] [address] Aug, [facility] [place] [facility] [address] [id number] [place] [address] Jul, [facility] [place] [facility] [address] [id number] [place] [address] Jul, [facility] [place] [facility] [address] [id number] [place] [address] Jul, [facility] [place] [facility] [address] [id number] [place] [address] Jul, [facility] [place] [facility] [address] [id number] [place] [address] Jul, [facility] [place] [facility] [address] [id number] [place] [address] Jul, [facility] [place] [facility] [address] [id number] [place] [address] Jul, [facility] [place] [facility] [address] [id number] [place] [address] Jul, [facility] [place] [facility] [address] [id number] [place] [address] Jul, [facility] [place] [facility] [address] [id number] [place] [address] Jul, [facility] [place] [facility] [address] [id number] [place] [address] Jul, [facility] [place] [facility] [address] [id number] [place] [address] Jul, [facility] [place] [facility] [address] [id number] [place] [address] Jul, [facility] [place] [facility] [address] [id number] [place] [address] Jul, [facility] [place] [facility] [address] [id number] [place] [address] Jul, [facility] [place] [facility] [address] [id number] [place] [address] Jul, [facility] [place] [facility] [address] [id number] [place] [address] Jun, [facility] [place] [facility] [address] [id number] [place] [address] Jun, [facility] [place] [facility] [address] [id number] [place] [address] Jun, [facility] [place] [facility] [address] [id number] [place] [address] Jun, [facility] [place] [facility] [address] [facility] [id number] [place] [address] Jun, 2013 [facility] [place] [facility] [address] [id number] [place] [address] Jun, [facility] [place] [facility] [address] [facility] [id number] [place] [address] Jun, [facility] [place] [facility] [address] [facility] [id number] [place] [address] Jun, [facility] [place] [facility] [address] [facility] [facility] [id number] [place] [address] Jun, [facility] [place] [facility] [address] [facility] [id number] [place] [address] Jun, [facility] [place] [facility] [address] [facility] [id number] [place] [address] 18 Jun, 2013 [facility] [place] [facility] [address] [facility] [id number] [place] [address] 18 Jun, 2013 [facility] [place] [facility] [address] [facility] [id number], [place] [address] 14 Jun, 2013 [facility] [place] [facility] [address] [facility] [id number] [place] [address] 13 Jun, 2013 [facility] [place] [facility] [address] [facility] [id number] [place] [address] 13 Jun, 2013 [facility] [place] [facility] [address] [facility] [id number] [place] [address] 13 Jun, 2013 [facility] [place] [facility] [address] [facility] [id number], [place] [address] 13 Jun, 2013 [facility] [place] [facility] [address] [id number] [place] [address] 12 Jun, 2013 [facility] [place] [facility] [address] [id number] [place] [address] 12 Jun, 2013 [facility] [place] [facility] [address] [id number] [place] [address] Jun, 2013 [facility] [place] [facility] [address] [id number] [place] [address] Jun, 2013 [facility] [place] [facility] [address] [id number] [place] [address] Jun, 2013 [facility] [place] [facility] [address] [facility] [id number] [place] [address] Jun, 2013 [facility] [place] [facility] [address] [facility] [id number] [place] [address] Jun, 2013 [facility] [place] [facility] [address] [facility] [id number] [place] [address] Jun, 2013 [facility] [place] [facility] [address] [facility] [id number] [place] [address] 39[address] Jun, 2013 [facility] [place] [facility] [address] [facility] [id number] [place] [address] Jun, 2013 [facility] [place] [facility] [address] [facility] [id number] [place] [address] Jun, 2013 [facility] [place] [facility] [address] [facility] [id number] [place] [address] Jun, 2013 [facility] [place] [facility] [address] [id number] [place] [address] Jun, 2013 [facility] [place] [facility] [address] [facility] [id number] [place] [address] May, [facility] [place] [facility] [address] [facility] [id number] [place] [address] May, [facility] [place] [facility] [address] [id number] [place] [address] May, [facility] [place] [facility] [address] [id number] [place] [address] May, [facility] [place] [facility] [address] [id number] [place] [address] May, [facility] [place] [facility] [address] [id number] [place] [address] May, [facility] [place] [facility] [address] [id number] [place] [address] May, [facility] [place] [facility] [address] [id number] [place] [address] May, [facility] [place] [facility] [address] [id number] [place] [address] May, [facility] [place] [facility] [address] [id number] [place] [address] May, [facility] [place] [facility] [address] [id number] [place] [address] May, [facility] [place] [facility] [address] [id number] [place] [address] May, [facility] [place] [facility] [address] [id number], [place] [address] May, [facility] [place] [facility] [address] [id number], [place] [address] May, [facility] [place] [facility] [address] [id number] [place] [address] May, [facility] [place] [facility] [address] [id number] [place] [address] Apr, [facility] [place] [facility] [address] [id number] [place] [address]- [address] Apr, [facility] [place] [facility] [address] [facility] [id number], [place] [address] Dec, [facility] [address] [id number], [place] [address] Nov, [facility] [address] [id number], [place] [address] May, [facility] [address] [id number], [place] [address] Apr, [facility] [id number], [place] [address] Apr, [facility] [address] [id number], [place] [address] Apr, [facility] [address] [id number] [id number] Apr, IMMUNIZATIONS No Known Immunizations SOCIAL HISTORY Never Assessed REASON FOR VISIT 4 wk f/u PLAN OF CARE Activity Details Follow Up 4 Weeks Reason: VITAL SIGNS MEDICATIONS Unknown Medications RESULTS No Results PROCEDURES No Known procedures INSTRUCTIONS MEDICATIONS ADMINISTERED No Known Medications MEDICAL (GENERAL) HISTORY Type Description Date Medical History asthma Medical History type II diabetes Medical History sleep apnea Medical History narcolepsy Surgical History hysterectomy Hospitalization History Chest pain-[facility] 02/27/17
--- OUTSIDE RECORDS SUMMARY | 2017-12-01 19:19 | XMS REPORT ---
Author Author QUINTEN GILLIAM [facility] Address [address] [place] [address] Care Team Providers Care Client Support Representative Name Role Phone QUINTEN GILLIAM Unavailable PROBLEMS Type Condition ICD9-CM Code [id number] Code Onset Dates Condition Status SNOMED Code Problem Right carpal tunnel syndrome G56.01 Active 60151991 Problem Gastroesophageal reflux disease with esophagitis K21.0 Active 254965109 Problem Falls frequently R29.6 Active 433794061 Problem Porokeratosis Q82.8 Active 824304834 Problem Posterior subcapsular age-related cataract of both eyes H25.043 Active 7172020 Problem Non-alcoholic fatty liver disease K76.0 Active 531858533 Problem Delayed gastric emptying K30 Active 157934169 Problem Pain in left foot M79.672 Active 9362432 Problem Other chronic pain G89.29 Active 32444813 Problem Tarsal tunnel syndrome of left side G57.52 Active 11350555 Problem Obesity E66.9 Active 009464708 Problem Hypermetropia, bilateral H52.03 Active 06524105 Problem Type 2 diabetes mellitus with hyperglycemia E11.65 Active 55839666 Problem Nuclear cataract of both eyes H25.13 Active 07594930 Problem Presbyopia OU H52.4 Active 81505742 Problem Obstructive sleep apnea G47.33 Active 13714902 Problem Shortness of breath R06.02 Active 648358637 Problem Type 2 diabetes mellitus with diabetic polyneuropathy E11.42 Active 65831952 Problem Lung nodule R91.1 Active 644111167 Problem Mixed hyperlipidemia E78.2 Active 183300407 Problem Primary narcolepsy with cataplexy G47.411 Active 429183283 ALLERGIES Substance Reaction Event Type Date Status Penicillin G Sodium Unknown Drug Allergy Feb, Active Erythromycin Unknown Drug Allergy Feb, Active ENCOUNTERS Encounter Location Date Diagnosis [facility] [address] [facility] [id number] [address] Nov, [facility] [id number] [place] [address] 38360- 6992 September, [facility] [id number] [place] [address] 19403- 2600 September, Type 2 diabetes mellitus with hyperglycemia E11.65 [facility] [id number] [place] [address] 33466- 6480 September, Type 2 diabetes mellitus with hyperglycemia E11.65 [facility] [id number] [place] [address] 62285- 1528 September, Porokeratosis Q82.8 and Type 2 diabetes mellitus with diabetic polyneuropathy E11.42 [facility] [id number] [place] [address] 33369 -1342 Aug, Seasonal allergic rhinitis, unspecified trigger J30.2 [place] [id number] [place] [address] 48654- 2027 Aug, [facility] [id number] [place] [address] 68836- 3573 Aug, [facility] [place] [facility] [address] [id number] Aug, Dental examination V72.2 and Dental examination Z01.20 [place] [id number] [place] [address] 80275- 6371 Aug, Dental examination Z01.20 and Dental caries K02.9 [facility] [id number] [place] [address] 07193- 3223 Aug, Obstructive sleep apnea G47.33 ; Obesity E66.9 ; Type 2 diabetes mellitus with hyperglycemia E11.65 ; Palpitations R00.2 and Corns and callosities L84 [facility] [id number] [place] [address] 55500- 2849 Jul, [facility] [id number] [place] [address] 29353- 2408 Jul, [place] [id number] [place] [address] 41354- 8478 Jun, Type 2 diabetes mellitus with hyperglycemia E11.65 ; Colon cancer screening Z12.11 ; Mixed hyperlipidemia E78.2 ; Non-alcoholic fatty liver disease K76.0 ; Gastroesophageal reflux disease with esophagitis K21.0 and Pain of upper abdomen R10.10 [place] [address] 27921- 4308 09 Jun, 2017 Falls frequently R29.6 [facility] [id number] [place] [address] 65492 -9560 May, Infection of nose J34.89 [place] [id number] [place] [address] 59615- 3747 May, Bilateral low back pain without sciatica M54.5 [place] [address] 04522- 9557 May, Type 2 diabetes mellitus with diabetic polyneuropathy E11.42 ; Obstructive sleep apnea G47.33 and Type 2 diabetes mellitus with hyperglycemia E11.65 [place] [address] 45819- 7797 Apr, Bilateral low back pain without sciatica M54.5 [place] [address] 62573- 9567 Apr, Mixed hyperlipidemia E78.2 and Type 2 diabetes mellitus with hyperglycemia E11.65 [place] [id number] [place] [address] 67009- 0844 Apr, Type 2 diabetes mellitus with diabetic polyneuropathy E11.42 [place] [address] 82500- 4171 Apr, [place] [id number] [place] [address] 93258- 3121 Apr, Skin lesion of left arm L98.9 and Skin lesion of left leg L98.9 [place] [id number] [place] [address] 46206- 5811 Mar, Bilateral low back pain without sciatica M54.5 [place] [address] 75501- 1040 Mar, Plantar fasciitis of left foot M72.2 ; Bursitis of left foot M71.572 and Type 2 diabetes mellitus with diabetic polyneuropathy E11.42 [place] [address] 42533- 2567 Feb, Non-alcoholic fatty liver disease K76.0 ; Keratoacanthoma L85.8 ; Seborrheic keratosis L82.1 ; Type 2 diabetes mellitus with hyperglycemia E11.65 and Nuclear cataract of both eyes H25.13 [facility] [id number] [place] [address] [id number] Feb, [place] [address] 18025- 7094 Feb, [place] [address] 58981- 4051 Feb, [place] [address] 97688- 8670 Feb, Type 2 diabetes mellitus with hyperglycemia E11.65 ; Back muscle spasm M62.830 and Encounter for immunization Z23 [place] [address] 46370- 6943 Jan, Plantar fasciitis of left foot M72.2 [place] [id number] [place] [address] 44351- 0257 Dec, [place] [address] 97387- 6655 Dec, Plantar fasciitis of left foot M72.2 and Tarsal tunnel syndrome of left side G57.52 [place] [id number] [place] [address] 23935- 3609 Dec, [facility] [place] [address] [place] [address] 93863 -5204 Nov, Mary Jane rash of groin B37.89 and Rash and nonspecific skin eruption R21 [facility] [id number] [place] [address] 68344- 9025 Nov, [facility] [id number] [place] [address] 39713- 5558 Oct, Type 2 diabetes mellitus with hyperglycemia E11.65 and Mixed hyperlipidemia E78.2 [place] [id number] [place] [address] 32313- 3684 Oct, [place] [address] 00015- 3622 Oct, Chest pain, unspecified R07.9 ; Palpitations R00.2 ; Syncope R55 and Mixed hyperlipidemia E78.2 [place] [address] 90413- 9150 Oct, Plantar fasciitis, bilateral M72.2 and Type 1 diabetes mellitus with diabetic neuropathy E10.40 [place] [address] 22834- 2276 Oct, [place] [id number] [place] [address] 24029- 0971 September, Type 2 diabetes mellitus with hyperglycemia E11.65 [place] [id number] [place] [address] 15056- 6920 September, Type 2 diabetes mellitus with hyperglycemia E11.65 ; Type 2 diabetes mellitus with diabetic polyneuropathy E11.42 ; Gastroesophageal reflux disease with esophagitis K21.0 and Headache, unspecified headache type R51 [place] [id number] [place] [address] 24997- 3404 September, [place] [id number] [place] [address] 04269- 1187 September, [place] [address] 01202- 7130 September, [facility] [address] [address]- 7932 September, Other chest pain R07.89 ; Heart palpitations R00.2 ; Mixed hyperlipidemia E78.2 and Obesity E66.9 [facility] [id number] [address]- 0232 Aug, [facility] [id number] [place] [address] 83688- 8988 Aug, Type 2 diabetes mellitus with diabetic polyneuropathy E11.42 and Type 2 diabetes mellitus with hyperglycemia E11.65 [facility] [id number] [place] [address] 61213- 7233 Aug, [facility] [id number] [place] [address] 23538- 1107 Aug, [facility] [id number] [place] [address] 91236- 6580 Aug, [facility] [id number] [place] [address] 87884- 8797 Aug, Type 2 diabetes mellitus with hyperglycemia E11.65 [facility] [address] [place] [address] 34006- 3301 Aug, [facility] [address] [address]- 3817 Jul, Type 2 diabetes mellitus with diabetic polyneuropathy E11.42 [facility] [address] [address]- 2402 Jul, Type 2 diabetes mellitus with hyperglycemia E11.65 [facility] [id number] [place] [address] 571394- 5695 16 Jul, 2016 [facility] [address] [address]- 1549 Jul, [facility] [id number] [place] [address] 22755- 0058 Jul, [facility] [id number] [place] [address] 08296- 7120 Jul, Type 2 diabetes mellitus with diabetic polyneuropathy E11.42 and Type 2 diabetes mellitus with hyperglycemia E11.65 [place] [id number] [place] [address] 40270- 9730 Jun, Obstructive sleep apnea G47.33 [place] [address] 80847- 5921 Jun, Type 2 diabetes mellitus with diabetic polyneuropathy E11.42 ; Primary narcolepsy with cataplexy G47.411 ; Abdominal bloating R14.0 ; Other chest pain R07.89 and Vision problems H54.7 [place] [id number] [place] [address] 70108- 0562 Jun, [place] [address] 50596- 7914 May, [place] [id number] [place] [address] 33450- 7508 Apr, [place] [address] 82451- 5242 Apr, Plantar fasciitis of left foot M72.2 [place] [id number] [place] [address] 98936- 5366 Mar, [facility] [address] 68084- 8539 Mar, Plantar fasciitis of left foot M72.2 and Type 2 diabetes mellitus with diabetic polyneuropathy E11.42 [place] [address] 90103- 5966 14 Feb, 2016 Type 2 diabetes mellitus with hyperglycemia E11.65 ; Mixed hyperlipidemia E78.2 and Encounter for immunization Z23 [facility] [id number] [place] [address] 21848- 9791 Feb, [place] [address] [address]- 9263 Feb, [facility] [id number] [place] [address] 99167- 2049 Feb, Type 2 diabetes mellitus with hyperglycemia E11.65 [facility] [id number] [place] [address] 71569- 1737 Feb, Type 2 diabetes mellitus with hyperglycemia E11.65 [facility] [id number] [place] [address] 38650- 6408 Jan, [facility] [id number] [place] [address] 10160- 9178 Dec, Pain in left foot M79.672 ; Other chronic pain G89.29 ; Type 2 diabetes mellitus with hyperglycemia E11.65 ; Obstructive sleep apnea G47.33 ; Falls frequently R29.6 ; Mixed hyperlipidemia E78.2 and Gastroesophageal reflux disease with esophagitis K21.0 [facility] [address] [place] [address] 24338- 0804 Nov, [facility] [id number] [place] [address] 70988- 8732 Oct, Type 2 diabetes mellitus with diabetic polyneuropathy E11.42 [facility] [address] [place] [address] 31772- 6441 Oct, [facility] [address] [address]- 3046 Oct, [facility] [address] [address]- 0789 September, [facility] [id number] [place] [address] 74388- 2382 September, [facility] [address] [address]- 0056 September, [facility] [address] [place] [address] 04002- 7147 September, [facility] [address] [address]- 5953 September, [facility] [id number] [place] [address] 99474- 4526 Aug, Type 2 diabetes mellitus with hyperglycemia E11.65 ; Mixed hyperlipidemia E78.2 and Right carpal tunnel syndrome G56.01 [facility] [address] [place] [address] 22944- 9185 Aug, [facility] [id number] [place] [address] 11521- 9112 Jul, [facility] [id number] [place] [address] 94276- 8880 Jun, [facility] [id number] [place] [address] 98057- 3732 Jun, [facility] [id number] [place] [address] 19610- 5564 May, [facility] [address] [address]- 0463 May, [facility] [id number] [place] [address] 42827- 5141 May, Type 2 diabetes mellitus with hyperglycemia E11.65 and Falls E888.9 [facility] [address] [address]- 6721 Apr, Type 2 diabetes mellitus with hyperglycemia E11.65 [facility] [address] [address]- 4254 Apr, [facility] [address] [address]- 0379 Apr, Type 2 diabetes mellitus with hyperglycemia E11.65 [facility] [address] [address]- 3696 Apr, [facility] [address] [place] [address] 89803- 2925 Mar, Type 2 diabetes mellitus with diabetic polyneuropathy E11.42 ; Bilateral low back pain without sciatica M54.5 and Dry nose J34.89 [facility] [address] 63360- 5001 Mar, Palpitations R00.2 ; Syncope R55 ; DM (diabetes mellitus) E11.9 and Obesity E66.9 [facility] [address] 59236- 1413 Mar, [facility] [address] 79810- 4840 Mar, [facility] [address] 53302- 4757 Mar, [facility] [address] 15339- 9277 Feb, [facility] [address] 93262- 9558 Jan, [facility] [id number] [place] [address] 19706- 7961 Jan, [facility] [address] 82029- 3441 Jan, Falls E888.9 and Sinusitis 473.9 [facility] [id number] [place] [address] 62320- 9431 Dec, [facility] [id number] [place] [address] 61130- 5043 Dec, [facility] [address] 14022- 6161 Dec, [facility] [id number] [place] [address] 10531- 1145 Dec, [facility] [id number] [place] [address] 30603- 7289 Dec, Diabetes mellitus without mention of complication, type II or unspecified type, not stated as uncontrolled 250.00 and Shortness of breath 786.05 [facility] [address] [place] [address] 80715- 3578 Dec, [facility] [id number] [place] [address] 88412- 7911 Nov, [facility] [id number] [place] [address] 54065- 4053 Nov, [facility] [id number] [place] [address] 37861- 7958 Oct, Restrictive lung disease 518.89 [facility] [id number] [place] [address] 70684- 3449 Oct, [facility] [id number] [place] [address] 25950- 3818 Oct, Shortness of breath 786.05 [facility] [id number] [place] [address] 51017- 9479 September, Other nonspecific abnormal finding of lung field 793.19 ; Diabetes mellitus without mention of complication, type II or unspecified type, not stated as uncontrolled 250.00 ; Hyperlipidemia LDL goal < 100 272.4 ; Narcolepsy, with cataplexy 347.01 ; Shortness of breath 786.05 and Chest pain 786.50 [facility] [address] [address]- 3079 Aug, [facility] [id number] [place] [address] 20116- 4053 Aug, [facility] [address] [address]- 8296 Jun, [facility] [id number] [place] [address] 88444- 2767 Jun, [facility] [address] [address]- 1912 Jun, [facility] [address] [place] [id number] [place] [address]- 8370 Jun, 2014 [facility] [place] [facility] [address] [id number] [place] [address]- 6131 Jun, 2014 [facility] [place] [facility] [address] [id number] [place] [address]- 1133 Jun, 2014 [facility] [place] [facility] [address] [id number] [place] [address]- 1467 Jun, 2014 [facility] [place] [facility] [address] [id number] [place] [address]- 8619 Jun, 2014 [facility] [place] [facility] [address] [id number] [place] [address]- 2099 May, [facility] [place] [facility] [address] [id number] [place] [address]- 5997 May, [facility] [place] [facility] [address] [id number] [place] [address]- 6948 Apr, [facility] [place] [facility] [address] [id number] [place] [address]- 8206 Apr, [facility] [place] [facility] [address] [id number] [place] [address]- 2060 Mar, [facility] [place] [facility] [address] [id number] [place] [address]- 7139 Mar, [facility] [place] [facility] [address] [id number] [place] [address]- 8709 Mar, [facility] [place] [facility] [address] [id number] [place] [address]- 2985 Mar, [facility] [place] [facility] [address] [id number] [place] [address]- 7579 Nov, [facility] [place] [facility] [address] [id number] [place] [address]- 4516 Nov, [facility] [place] [facility] [address] [id number] [place] [address]- 6845 Nov, [facility] [place] [facility] [address] [id number] [place] [address]- 8696 Nov, [facility] [place] [facility] [address] [id number] [place] [address]- 0336 Oct, [facility] [place] [facility] [address] [id number] [place] [address]- 0584 Oct, [facility] [place] [facility] [address] [id number] [place] [address]- 1683 Oct, [facility] [place] [facility] [address] [id number] [place] [address]- 5590 Oct, [facility] [place] [facility] [address] [id number] [place] [address]- 8853 Oct, [facility] [place] [facility] [address] [id number] [place] [address]- 6889 Oct, [facility] [place] [facility] [address] [id number] [place] [address]- 3259 Oct, [facility] [place] [facility] [address] [id number] [place] [address]- 7429 Oct, [facility] [place] [facility] [address] [id number] [place] [address]- 1459 Oct, [facility] [place] [facility] [address] [id number] [place] [address]- 5315 Oct, [facility] [place] [facility] [address] [id number] [place] [address]- 5508 September, [facility] [place] [facility] [address] [id number] [place] [address] September, [facility] [place] [facility] [address] [id number] [place] [address] Aug, [facility] [place] [facility] [address] [id number] [place] [address] Aug, [facility] [place] [facility] [address] [id number] [place] [address] 24 Aug, 2013 [facility] [address] [id number] [place] [address] Aug, [facility] [address] [id number] [place] [address] Aug, [facility] [address] [id number] [place] [address] Aug, [facility] [address] [id number] [place] [address] Jul, [facility] [address] [id number] [place] [address] 27 Jul, 2013 [facility] [address] [id number] [place] [address] Jul, [facility] [address] [id number] [place] [address] Jul, [facility] [address] [id number] [place] [address] Jul, [facility] [place] [facility] [address] [id number] [place] [address] Jul, [facility] [address] [id number] [place] [address] Jul, [facility] [place] [facility] [address] [id number] [place] [address] Jul, [facility] [place] [facility] [address] [id number] [place] [address] Jul, [facility] [place] [facility] [address] [id number] [place] [address] Jul, [facility] [place] [facility] [address] [id number] [place] [address] Jul, [facility] [place] [facility] [address] [id number] [place] [address] 19 Jul, 2013 [facility] [place] [facility] [address] [id number] [place] [address] 19 Jul, 2013 [facility] [place] [facility] [address] [id number] [place] [address] 14 Jul, 2013 [facility] [place] [facility] [address] [id number] [place] [address] 14 Jul, 2013 [facility] [place] [facility] [address] [id number] [place] [address] Jul, [facility] [place] [facility] [address] [id number] [place] [address] Jun, [facility] [place] [facility] [address] [id number] [place] [address] Jun, [facility] [place] [facility] [address] [id number] [place] [address] Jun, [facility] [place] [facility] [address] [id number] [place] [address] Jun, [facility] [place] [facility] [address] [id number] [place] [address] Jun, [facility] [place] [facility] [address] [id number] [place] [address] Jun, [facility] [place] [facility] [address] [address] [id number] [place] [address] Jun, [facility] [place] [facility] [address] [id number] [place] [address] Jun, [facility] [place] [facility] [address] [id number] [place] [address] Jun, [facility] [place] [facility] [address] [id number] [place] [address] Jun, [facility] [place] [facility] [address] [id number] [place] [address] 18 Jun, 2013 [facility] [place] [facility] [address] [id number] [place] [address] 18 Jun, 2013 [facility] [place] [facility] [address] [id number] [place] [address] 14 Jun, 2013 [facility] [place] [facility] [address] [id number] [place] [address] 13 Jun, 2013 [facility] [place] [facility] [address] [id number] [place] [address] 13 Jun, 2013 [facility] [place] [facility] [address] [id number] [place] [address] 13 Jun, 2013 [facility] [place] [facility] [address] [id number] [place] [address] 13 Jun, 2013 [facility] [place] [facility] [address] [facility] [id number] [place] [address] 12 Jun, 2013 [facility] [place] [facility] [address] [id number] [place] [address] 12 Jun, 2013 [facility] [place] [facility] [address] [facility] [id number] [place] [address] Jun, [facility] [place] [facility] [address] [facility] [id number] [place] [address] Jun, [facility] [place] [facility] [address] [facility] [id number] [place] [address] 10 Jun, 2013 [facility] [place] [facility] [address] [id number] [place] [address] 07 Jun, 2013 [facility] [place] [facility] [address] [facility] [id number] [place] [address] 07 Jun, 2013 [facility] [place] [facility] [address] [id number] [place] [address] 06 Jun, 2013 [facility] [place] [facility] [address] [facility] [id number] [place] [address] 06 Jun, 2013 [facility] [place] [facility] [address] [id number] [place] [address] 06 Jun, 2013 [facility] [address] [id number] [place] [address] Jun, [facility] [place] [facility] [address] [id number] [place] [address] Jun, [facility] [address] [id number] [place] [address] Jun, [facility] [place] [facility] [address] [id number] [place] [address] May, [facility] [address] [id number] [place] [address] May, [facility] [address] [id number] [place] [address] May, [facility] [place] [facility] [address] [id number] [place] [address] May, [facility] [address] [id number] [place] [address] May, [facility] [place] [facility] [address] [id number] [place] [address] May, [facility] [address] [id number] [place] [address] May, [facility] [place] [facility] [address] [id number] [place] [address] May, [facility] [place] [facility] [address] [id number] [place] [address] May, [facility] [place] [facility] [address] [id number] [place] [address] May, [facility] [place] [facility] [address] [id number] [place] [address] May, [facility] [place] [facility] [address] [id number] [place] [address] May, [facility] [address] [id number] [address] May, [facility] [id number] [address] May, [facility] [address] [id number] [address] May, [facility] [address] [facility] [id number] [place] [address] Apr, [facility] [address] [facility] [id number] [address] Apr, [facility] [id number] [address] [address] Dec, [facility] [id number] [address] Nov, [facility] [id number] [address] [address] May, [facility] [id number] [address] Apr, [facility] [id number] [address] Apr, [facility] [address] [id number] [address] Apr, [facility] [address] [id number] [address] [address] Apr, IMMUNIZATIONS No Known Immunizations SOCIAL HISTORY Never Assessed REASON FOR VISIT [facility] follow up---[place], went to ER with chest pain, told she had reflux PLAN OF CARE Activity Details Follow Up 3 Months Reason:DMII VITAL SIGNS Height 64 in 2017-03-07 Weight 195 lbs 2017-03-07 Temperature 98.2 degrees Fahrenheit 2017-03-07 Heart Rate 80 bpm 2017-03-07 Respiratory Rate 20 2017-03-07 BMI 33.47 kg/m2 2017-03-07 Blood pressure systolic 124 mmHg 2017-03-07 Blood pressure diastolic 86 mmHg 2017-03-07 MEDICATIONS Medication Instructions Dosage Frequency Start Date End Date Duration Status Carafate 1 GM Orally Twice a day 1 tablet at bedtime on an empty stomach before meals 12h Active Levemir Flexpen 100 unit/mL (3 mL) subcutaneous 2 times a day 50 units 12h 24 Aug, 2013 Active NovoLog Flexpen 100 UNIT/ML Subcutaneous 3 times a day 25 units 8h 07 Dec, 2014 Active Pravastatin Sodium 40 mg Orally Once a day 1 tablet 24h September, 90 days Active Test strips Test Strips Contour teststrips directed 12h Dec, Active Famotidine 20 mg Orally twice a day 1 tablet at bedtime 12h Active Test strips Test Strips Frank Contour test strips 2 times a day test blood sugar 12h Feb, Active Gabapentin 300 MG Orally Three times a day 3 capsules 8h 20 Mar, 2015 Active Proventil HFA 108 (90 Base) MCG/ACT Inhalation every 4 hrs 2 puffs as needed 4h Dec, Active Pen Bob White 32G X 4 MM as directed Dec, 90 days Active RESULTS Name Result Date Reference Range HEP C AB W/REFLEX ([facility] ONLY) 2017-03-07 PROCEDURES Procedure Date Ordered Result Body Site HEP C AB W/REFLEX ([facility] ONLY) Mar 07, 2017 VENIPUNCT, ROUTINE* Mar 07, 2017 INSTRUCTIONS MEDICATIONS ADMINISTERED No Known Medications MEDICAL (GENERAL) HISTORY Type Description Date Medical History asthma Medical History type II diabetes Medical History sleep apnea Medical History narcolepsy Surgical History hysterectomy Hospitalization History Chest pain-[facility] 02/27/17
--- OUTSIDE RECORDS SUMMARY | 2017-12-01 19:20 | XMS REPORT ---
Author Author ERNESTO Brewer [facility] Address [address] [place] [address] Care Team Providers Care Child & Adolescent Psychiatrist Name Role Phone ERNESTO Brewer Unavailable PROBLEMS Type Condition ICD9-CM Code OFK35-SN Code Onset Dates Condition Status SNOMED Code Problem Primary narcolepsy with cataplexy G47.411 Active 693202742 Problem Falls frequently R29.6 Active 999802673 Problem Right carpal tunnel syndrome G56.01 Active 06830302 Problem Non-alcoholic fatty liver disease K76.0 Active 660819471 Problem Posterior subcapsular age-related cataract of both eyes H25.043 Active 1815305 Problem Tarsal tunnel syndrome of left side G57.52 Active 94558084 Problem Other chronic pain G89.29 Active 16160340 Problem Gastroesophageal reflux disease with esophagitis K21.0 Active 010748927 Problem Obesity E66.9 Active 519594603 Problem Pain in left foot M79.672 Active 8660985 Problem Delayed gastric emptying K30 Active 724239249 Problem Hypermetropia, bilateral H52.03 Active 95352890 Problem Nuclear cataract of both eyes H25.13 Active 12042333 Problem Presbyopia OU H52.4 Active 26929536 Problem Mixed hyperlipidemia E78.2 Active 661841121 Problem Obstructive sleep apnea G47.33 Active 45115616 Problem Type 2 diabetes mellitus with hyperglycemia E11.65 Active 50063319 Problem Shortness of breath R06.02 Active 017439051 Problem Type 2 diabetes mellitus with diabetic polyneuropathy E11.42 Active 63994713 Problem Lung nodule R91.1 Active 467976033 ALLERGIES Substance Reaction Event Type Date Status Penicillin G Sodium Unknown Drug Allergy Nov, Active Erythromycin Unknown Drug Allergy Nov, Active ENCOUNTERS Encounter Location Date Diagnosis [facility] [address] [facility] [id number] [address] September, [facility] [id number] [place] [address] 66403- 6159 Aug, [facility] [id number] [place] [address] 13265- 8812 Aug, [facility] [id number] [place] [address] 01776- 5239 Jul, [place] [address] 37459- 5974 Jun, Type 2 diabetes mellitus with hyperglycemia E11.65 ; Colon cancer screening Z12.11 ; Mixed hyperlipidemia E78.2 ; Non-alcoholic fatty liver disease K76.0 ; Gastroesophageal reflux disease with esophagitis K21.0 and Pain of upper abdomen R10.10 [place] [id number] [place] [address] 25266- 9044 Jun, [facility] [id number] [place] [address] 12406 -3230 May, Infection of nose J34.89 [place] [id number] [place] [address] 28687- 6744 May, Bilateral low back pain without sciatica M54.5 [place] [id number] [place] [address] 78326- 9188 May, Type 2 diabetes mellitus with diabetic polyneuropathy E11.42 ; Obstructive sleep apnea G47.33 and Type 2 diabetes mellitus with hyperglycemia E11.65 [place] [id number] [place] [address] 18728- 7591 Apr, Bilateral low back pain without sciatica M54.5 [place] [id number] [place] [address] 06300- 7520 Apr, Mixed hyperlipidemia E78.2 and Type 2 diabetes mellitus with hyperglycemia E11.65 [place] [id number] [place] [address] 96396- 1946 Apr, Type 2 diabetes mellitus with diabetic polyneuropathy E11.42 [place] [id number] [place] [address] 53827- 4624 Apr, [facility] [id number] [place] [address] 73596- 5175 Apr, Skin lesion of left arm L98.9 and Skin lesion of left leg L98.9 [facility] [id number] [place] [address] 49077- 3636 Mar, Bilateral low back pain without sciatica M54.5 [facility] [address] 76951- 6669 Mar, Plantar fasciitis of left foot M72.2 ; Bursitis of left foot M71.572 and Type 2 diabetes mellitus with diabetic polyneuropathy E11.42 [place] [id number] [place] [address] 00901- 6930 Feb, Non-alcoholic fatty liver disease K76.0 ; Keratoacanthoma L85.8 ; Seborrheic keratosis L82.1 ; Type 2 diabetes mellitus with hyperglycemia E11.65 and Nuclear cataract of both eyes H25.13 [facility] [id number] [place] [address] [id number] Feb, [facility] [id number] [place] [address] 97078- 7455 Feb, [facility] [id number] [place] [address] 15408- 8446 Feb, [facility] [id number] [place] [address] 02500- 9507 Feb, Type 2 diabetes mellitus with hyperglycemia E11.65 ; Back muscle spasm M62.830 and Encounter for immunization Z23 [facility] [id number] [place] [address] 13440- 6608 Jan, Plantar fasciitis of left foot M72.2 [facility] [id number] [place] [address] 61013- 0438 Dec, [facility] [id number] [place] [address] 38333- 9287 Dec, Plantar fasciitis of left foot M72.2 and Tarsal tunnel syndrome of left side G57.52 [facility] [id number] [place] [address] 04126- 4673 Dec, [facility] [id number] [place] [address] 27022 -3665 Nov, Mary Jane rash of groin B37.89 and Rash and nonspecific skin eruption R21 [place] [id number] [place] [address] 78384- 0193 Nov, [place] [id number] [place] [address] 19029- 5375 Oct, Type 2 diabetes mellitus with hyperglycemia E11.65 and Mixed hyperlipidemia E78.2 [place] [id number] [place] [address] 15316- 8236 Oct, [facility] [id number] [place] [address] 26171- 5610 Oct, Chest pain, unspecified R07.9 ; Palpitations R00.2 ; Syncope R55 and Mixed hyperlipidemia E78.2 [place] [id number] [place] [address] 26572- 9439 Oct, Plantar fasciitis, bilateral M72.2 and Type 1 diabetes mellitus with diabetic neuropathy E10.40 [place] [id number] [place] [address] 15553- 2767 Oct, [place] [id number] [place] [address] 60002- 5781 September, Type 2 diabetes mellitus with hyperglycemia E11.65 [place] [id number] [place] [address] 04537- 2258 September, Type 2 diabetes mellitus with hyperglycemia E11.65 ; Type 2 diabetes mellitus with diabetic polyneuropathy E11.42 ; Gastroesophageal reflux disease with esophagitis K21.0 and Headache, unspecified headache type R51 [facility] [address] [address] September, [facility] [address] [address] 0707 September, [facility] [address] [address]- 7675 September, [facility] [id number] [place] [address] 36784- 6289 September, Other chest pain R07.89 ; Heart palpitations R00.2 ; Mixed hyperlipidemia E78.2 and Obesity E66.9 [facility] [id number] [address] 2771 Aug, [facility] [id number] [address]- 5721 Aug, Type 2 diabetes mellitus with diabetic polyneuropathy E11.42 and Type 2 diabetes mellitus with hyperglycemia E11.65 [facility] [address] [address]- 0804 Aug, [facility] [address] [address]- 6273 Aug, [facility] [address] [address]- 6228 Aug, [facility] [address] [address]- 1153 Aug, Type 2 diabetes mellitus with hyperglycemia E11.65 [facility] [address] [address]- 2249 Aug, [facility] [address] [address]- 8138 Jul, Type 2 diabetes mellitus with diabetic polyneuropathy E11.42 [facility] [id number] [address]- 3410 Jul, Type 2 diabetes mellitus with hyperglycemia E11.65 [facility] [address] [address]- 6046 Jul, [facility] [id number] [place] [address] 26229- 0972 Jul, [facility] [id number] [place] [address] 14453- 9361 Jul, [facility] [id number] [place] [address] 18949- 2642 Jul, Type 2 diabetes mellitus with diabetic polyneuropathy E11.42 and Type 2 diabetes mellitus with hyperglycemia E11.65 [facility] [id number] [place] [address] 22793- 4680 Jun, Obstructive sleep apnea G47.33 [facility] [id number] [place] [address] 45241- 0563 Jun, Type 2 diabetes mellitus with diabetic polyneuropathy E11.42 ; Primary narcolepsy with cataplexy G47.411 ; Abdominal bloating R14.0 ; Other chest pain R07.89 and Vision problems H54.7 [facility] [address] [place] [address] 79785- 7989 Jun, [facility] [id number] [place] [address] 37054- 3364 May, [facility] [address] [place] [address] 01440- 1331 Apr, [facility] [id number] [place] [address] 18371- 1477 Apr, Plantar fasciitis of left foot M72.2 [facility] [id number] [place] [address] 53809- 4347 Mar, [facility] [id number] [place] [address] 65570- 2916 Mar, Plantar fasciitis of left foot M72.2 and Type 2 diabetes mellitus with diabetic polyneuropathy E11.42 [facility] [id number] [place] [address] 41854- 6764 Feb, Type 2 diabetes mellitus with hyperglycemia E11.65 ; Mixed hyperlipidemia E78.2 and Encounter for immunization Z23 [facility] [id number] [place] [address] 87085- 9788 Feb, [facility] [id number] [place] [address] 14402- 3810 Feb, [facility] [id number] [place] [address] 05645- 2341 Feb, Type 2 diabetes mellitus with hyperglycemia E11.65 [place] [address] 03851- 6954 Feb, Type 2 diabetes mellitus with hyperglycemia E11.65 [place] [id number] [place] [address] 22492- 0116 Jan, [place] [id number] [place] [address] 36641- 8611 Dec, Pain in left foot M79.672 ; Other chronic pain G89.29 ; Type 2 diabetes mellitus with hyperglycemia E11.65 ; Obstructive sleep apnea G47.33 ; Falls frequently R29.6 ; Mixed hyperlipidemia E78.2 and Gastroesophageal reflux disease with esophagitis K21.0 [place] [address] [place] [address] 91109- 6523 Nov, [place] [id number] [place] [address] 42786- 4116 Oct, Type 2 diabetes mellitus with diabetic polyneuropathy E11.42 [place] [id number] [place] [address] 33864- 6684 Oct, [place] [id number] [place] [address] 17598- 8751 Oct, [place] [id number] [place] [address] 59926- 3677 September, [place] [address] [place] [address] [place] [address]- 3809 September, [facility] [address], [place] [address]- 4735 September, [facility] [address], [place] [address]- 7350 September, [facility] [address] [place] [address] 62480- 8108 September, [facility] [address] [place] [address] 89612- 8403 Aug, Type 2 diabetes mellitus with hyperglycemia E11.65 ; Mixed hyperlipidemia E78.2 and Right carpal tunnel syndrome G56.01 [facility] [address] [address]- 4873 Aug, [facility] [address] [address]- 7419 Jul, [facility] [id number] [address]- 5107 Jun, [facility] [address], [place] [address]- 1485 Jun, [facility] [address], [place] [address]- 4272 May, [facility] [address], [place] [address]- 8942 May, [facility] [address], [place] [address]- 3199 May, Type 2 diabetes mellitus with hyperglycemia E11.65 and Falls E888.9 [facility] [address] [address]- 4720 Apr, Type 2 diabetes mellitus with hyperglycemia E11.65 [facility] [address], [place] [address]- 8187 Apr, [facility] [id number] [place] [address] 81290- 0388 Apr, Type 2 diabetes mellitus with hyperglycemia E11.65 [facility] [address] 02886- 0506 Apr, [facility] [id number] [place] [address] 21410- 2869 Mar, Type 2 diabetes mellitus with diabetic polyneuropathy E11.42 ; Bilateral low back pain without sciatica M54.5 and Dry nose J34.89 [facility] [id number] [place] [address] 50447- 1827 Mar, Palpitations R00.2 ; Syncope R55 ; DM (diabetes mellitus) E11.9 and Obesity E66.9 [facility] [id number] [place] [address] 53979- 3329 Mar, [facility] [address] 84613- 7873 Mar, [facility] [id number] [place] [address] 29346- 8125 Mar, [facility] [id number] [place] [address] 06929- 5817 Feb, [facility] [id number] [place] [address] 49454- 3540 14 Jan, 2015 [facility] [id number] [place] [address] 65868- 8436 Jan, [facility] [id number] [place] [address] 47024- 6307 Jan, Falls E888.9 and Sinusitis 473.9 [facility] [id number] [place] [address] 32802- 2545 Dec, [facility] [id number] [place] [address] 46110- 7757 Dec, [facility] [id number] [place] [address] 32024- 5358 Dec, [facility] [address], [place] [address]- 4308 Dec, [facility] [id number] [place] [address] 042471- 5772 Dec, Diabetes mellitus without mention of complication, type II or unspecified type, not stated as uncontrolled 250.00 and Shortness of breath 786.05 [facility] [id number] [place] [address] 74448- 4929 Dec, [facility] [id number] [place] [address] 50693- 4008 Nov, [facility] [id number] [place] [address] 21455- 0731 Nov, [facility] [id number] [place] [address] 92455- 2434 Oct, Restrictive lung disease 518.89 [facility] [address] [place] [address] 23181- 0469 Oct, [facility] [id number] [place] [address] 98889- 4365 Oct, Shortness of breath 786.05 [facility] [id number] [place] [address] 81822- 5292 September, Other nonspecific abnormal finding of lung field 793.19 ; Diabetes mellitus without mention of complication, type II or unspecified type, not stated as uncontrolled 250.00 ; Hyperlipidemia LDL goal < 100 272.4 ; Narcolepsy, with cataplexy 347.01 ; Shortness of breath 786.05 and Chest pain 786.50 [facility] [address] [place] [address] 13660- 6854 Aug, [facility] [id number] [place] [address] 83549- 3977 Aug, [facility] [address] [place] [address] 01284- 5542 Jun, 2014 [facility] [place] [facility] [address] [facility] [id number] [place] [address]- 2118 Jun, 2014 [facility] [place] [facility] [address] [id number] [place] 9738 Jun, 2014 [facility] [place] [facility] [address] [facility] [id number] [place] [address]- 9801 Jun, 2014 [facility] [place] [facility] [address] [facility] [id number] [place] [address]- 7442 Jun, 2014 [facility] [place] [facility] [address] [facility] [id number] [place] [address]- 2518 Jun, 2014 [facility] [place] [facility] [address] [facility] [id number] [place] [address]- 4748 Jun, 2014 [facility] [place] [facility] [address] [facility] [id number] [place] [address]- 1533 Jun, 2014 [facility] [place] [facility] [address] [facility] [id number], [place] [address]- 8419 May, [facility] [place] [facility] [address] [facility] [id number] [place] [address]- 5258 May, [facility] [place] [facility] [address] [facility] [id number], [place] [address]- 5446 Apr, [facility] [place] [facility] [address] [facility] [id number] [place] [address]- 5845 Apr, [facility] [place] [facility] [address] [facility] [id number], [place] [address]- 9047 Mar, [facility] [place] [facility] [address] [facility] [id number], [place] [address]- 7108 Mar, [facility] [place] [facility] [address] [facility] [id number], [place] [address]- 9462 Mar, [facility] [place] [facility] [address] [facility] [id number], [place] [address]- 1296 Mar, [facility] [place] [facility] [address] [id number] [place] [address]- 2986 Nov, [facility] [place] [facility] [address] [id number] [place] [address]- 8723 Nov, [facility] [place] [facility] [address] [id number] [place] [address]- 9181 Nov, [facility] [place] [facility] [address] [id number] [place] [address]- 7176 Nov, [facility] [place] [facility] [address] [id number] [place] [address]- 2494 Oct, [facility] [place] [facility] [address] [id number] [place] [address]- 5897 Oct, [facility] [place] [facility] [address] [id number] [place] [address]- 9304 Oct, [facility] [place] [facility] [address] [id number] [place] [address]- 9476 Oct, [facility] [place] [facility] [address] [id number] [place] [address]- 3007 Oct, [facility] [place] [facility] [address] [id number] [place] [address]- 0897 Oct, [facility] [place] [facility] [address] [id number] [place] [address]- 5431 Oct, [facility] [place] [facility] [address] [id number] [place] [address]- 2934 Oct, [facility] [place] [facility] [address] [id number] [place] [address]- 4962 Oct, [facility] [place] [facility] [address] [id number] [place] [address]- 5946 Oct, [facility] [place] [facility] [address] [id number] [place] [address]- 2091 September, [facility] [place] [facility] [address] [id number] [place] [address]- 0301 September, [facility] [place] [facility] [address] [id number] [place] [address]- 8193 Aug, [facility] [place] [facility] [address] [id number] [place] [address]- 2571 Aug, [facility] [place] [facility] [address] [id number] [place] [address]- 7665 Aug, [facility] [place] [facility] [address] [id number] [place] [address]- 9278 Aug, [facility] [place] [facility] [address] [id number] [place] [address]- 2560 Aug, [facility] [place] [facility] [address] [id number] [place] [address]- 4668 Aug, [facility] [place] [facility] [address] [id number] [place] [address]- 1228 Jul, [facility] [place] [facility] [address] [id number] [place] [address]- 9683 Jul, [facility] [place] [facility] [address] [id number] [place] [address]- 8831 Jul, [facility] [place] [facility] [address] [id number] [place] [address]- 0138 Jul, [facility] [place] [facility] [address] [id number] [place] [address]- 4100 Jul, [facility] [place] [facility] [address] [id number], [place] [address]- 2552 Jul, [facility] [place] [facility] [address] [id number] [place] [address]- 1252 Jul, [facility] [place] [facility] [address] [id number] [place] [address]- 5828 Jul, [facility] [place] [facility] [address] [id number] [place] [address]- 5845 Jul, [facility] [place] [facility] [address] [id number] [place] [address]- 8297 Jul, [facility] [place] [facility] [address] [id number] [place] [address]- 3944 Jul, [facility] [place] [facility] [address] [id number] [place] [address]- 4556 Jul, [facility] [place] [facility] [address] [id number] [place] [address]- 3054 Jul, [facility] [place] [facility] [address] [id number] [place] [address]- 4544 Jul, [facility] [place] [facility] [address] [id number] [place] [address]- 7520 Jul, [facility] [place] [facility] [address] [facility] [id number] [place] [address]- 1545 Jul, [facility] [place] [facility] [address] [facility] [id number] [place] [address]- 9973 Jun, [facility] [place] [facility] [address] [facility] [id number] [place] [address] Jun, [facility] [place] [facility] [id number] [place] [address] Jun, [facility] [place] [facility] [address] [facility] [id number] [place] [address] Jun, [facility] [place] [facility] [address] [facility] [id number] [place] [address] Jun, [facility] [place] [facility] [address] [facility] [id number] [place] [address] Jun, [facility] [place] [facility] [address] [id number] [place] [address] Jun, [facility] [place] [facility] [address] [facility] [id number] [place] [address] Jun, [facility] [place] [facility] [address] [facility] [id number] [place] [address] 20 Jun, 2013 [facility] [place] [facility] [address] [facility] [id number] [place] [address] 20 Jun, 2013 [facility] [place] [facility] [address] [facility] [id number] [place] [address] 18 Jun, 2013 [facility] [place] [facility] [address] [facility] [id number] [place] [address] 18 Jun, 2013 [facility] [place] [facility] [address] [facility] [id number] [place] [address]- [address] 14 Jun, 2013 [facility] [place] [facility] [address] [facility] [id number] [place] [address] 13 Jun, 2013 [facility] [place] [facility] [address] [facility] [id number] [place] [address]- [address] 13 Jun, 2013 [facility] [place] [facility] [address] [facility] [id number] [place] [address] 13 Jun, 2013 [facility] [place] [facility] [address] [facility] [id number] [place] [address]- 2005 13 Jun, 2013 [facility] [place] [facility] [address] [facility] [place] [id number] [place] [address] 12 Jun, 2013 [facility] [place] [facility] [address] [facility] [id number] [place] [address] 12 Jun, 2013 [facility] [place] [facility] [address] [facility] [id number] [place] [address] 11 Jun, 2013 [facility] [place] [facility] [address] [facility] [id number] [place] [address] 11 Jun, 2013 [facility] [place] [facility] [address] [facility] [id number] [place] [address] 10 Jun, 2013 [facility] [place] [facility] [address] [facility] [id number] [place] [address] 07 Jun, 2013 [facility] [place] [facility] [address] [facility] [id number] [place] [address] Jun, [facility] [place] [facility] [address] [id number] [place] [address] Jun, [facility] [place] [facility] [address] [id number] [place] [address] Jun, [facility] [place] [facility] [address] [id number] [place] [address] Jun, [facility] [place] [facility] [address] [id number] [place] [address] Jun, [facility] [place] [facility] [address] [id number] [place] [address] Jun, [facility] [place] [facility] [address] [id number] [place] [address] Jun, [facility] [place] [facility] [address] [id number] [place] [address] May, [facility] [place] [facility] [address] [id number] [place] [address] May, [facility] [place] [facility] [address] [id number] [place] [address] May, [facility] [place] [facility] [address] [id number] [place] [address] May, [facility] [place] [facility] [address] [id number] [place] [address] May, [facility] [place] [facility] [address] [id number] [place] [address] May, [facility] [place] [facility] [address] [id number] [place] [address] May, [facility] [place] [facility] [address] [id number] [place] [address] May, [facility] [place] [facility] [address] [id number] [place] [address] May, [facility] [place] [facility] [address] [facility] [id number], [place] [address] May, [facility] [address] [facility] [id number], [place] [address] May, [facility] [address] [facility] [id number] [place] [address] May, [facility] [address] [facility] [id number], [place] [address] May, [facility] [address] [facility] [id number] [place] [address] May, [facility] [address] [facility] [id number] [place] [address] May, [facility] [address] [facility] [id number] [place] [address] Apr, [facility] [id number], [place] [address] Apr, [facility] [address] [facility] [id number], [place] [address] Dec, [facility] [id number], [place] [address] Nov, [facility] [address] [id number] [address] May, [facility] [address] [id number], [place] [address] Apr, [facility] [address] [facility] [id number], [place] [address] Apr, [facility] [address] [facility] [id number], [place] [address] Apr, [facility] [address] [facility] [id number], [place] [address] Apr, IMMUNIZATIONS No Known Immunizations SOCIAL HISTORY Never Assessed REASON FOR VISIT Rash under breasts for about 1 month alos under arms and groin JStrasserRN PLAN OF CARE Activity Details Follow Up prn and as directed by PCP Reason: VITAL SIGNS Height 64 in 2016-11-16 Weight 199.8 lbs 2016-11-16 Temperature 97.2 degrees Fahrenheit 2016-11-16 Heart Rate 74 bpm 2016-11-16 Respiratory Rate 18 2016-11-16 BMI 34.29 kg/m2 2016-11-16 Blood pressure systolic 118 mmHg 2016-11-16 Blood pressure diastolic 80 mmHg 2016-11-16 MEDICATIONS Medication Instructions Dosage Frequency Start Date End Date Duration Status Pravastatin Sodium 40 mg Orally Once a day 1 tablet 24h September, 90 days Active Pen Hammond 32G X 4 MM as directed Dec, 90 days Active Test strips Test Strips Frank Contour test strips 2 times a day test blood sugar 12h Feb, Active Gabapentin 300 MG Orally Three times a day 3 capsules 8h Mar, Active Proventil HFA 108 (90 Base) MCG/ACT Inhalation every 4 hrs 2 puffs as needed 4h Dec, Active Calamine - Active Levemir Flexpen 100 unit/mL (3 mL) subcutaneous 2 times a day 45 units 12h Aug, Active Nystatin-Triamcinolone 844417-4.1 UNIT/GM Externally Twice a day 1 application to affected area 12h Nov, Nov, 14 days Active NovoLog Flexpen 100 UNIT/ML Subcutaneous 3 times a day 25 units 8h Dec, Active RESULTS No Results PROCEDURES No Known procedures INSTRUCTIONS MEDICATIONS ADMINISTERED No Known Medications MEDICAL (GENERAL) HISTORY Type Description Date Medical History asthma Medical History type II diabetes Surgical History hysterectomy Hospitalization History Chest pain-[facility] 02/27/17
--- OUTSIDE RECORDS SUMMARY | 2017-12-01 19:22 | XMS REPORT ---
Author Author TAWANA QUINTEN [facility] Address [address] [place] [address] Care Team Providers Care Coding Technician Name Role Phone TAWANA QUINTEN Unavailable PROBLEMS Type Condition ICD9-CM Code DEG13-BS Code Onset Dates Condition Status SNOMED Code Problem Primary narcolepsy with cataplexy G47.411 Active 784867946 Problem Falls frequently R29.6 Active 821042546 Problem Right carpal tunnel syndrome G56.01 Active 35437593 Problem Non-alcoholic fatty liver disease K76.0 Active 453653767 Problem Posterior subcapsular age-related cataract of both eyes H25.043 Active 2604474 Problem Tarsal tunnel syndrome of left side G57.52 Active 11742111 Problem Other chronic pain G89.29 Active 12986629 Problem Gastroesophageal reflux disease with esophagitis K21.0 Active 799233803 Problem Obesity E66.9 Active 191167729 Problem Pain in left foot M79.672 Active 8339465 Problem Delayed gastric emptying K30 Active 984301187 Problem Hypermetropia, bilateral H52.03 Active 44277463 Problem Nuclear cataract of both eyes H25.13 Active 09600059 Problem Presbyopia OU H52.4 Active 29551564 Problem Mixed hyperlipidemia E78.2 Active 542931618 Problem Obstructive sleep apnea G47.33 Active 14495044 Problem Type 2 diabetes mellitus with hyperglycemia E11.65 Active 52242399 Problem Shortness of breath R06.02 Active 660306095 Problem Type 2 diabetes mellitus with diabetic polyneuropathy E11.42 Active 92825026 Problem Lung nodule R91.1 Active 450266467 ALLERGIES No Information ENCOUNTERS Encounter Location Date Diagnosis [facility] [address] [id number] [address] September, [facility] [address] [id number], [place] [address] Aug, [facility] [id number] [place] [id number] Aug, Dental examination V72.2 and Dental examination Z01.20 [facility] [id number] [place] [address] 39565- 4523 Aug, Dental examination Z01.20 and Dental caries K02.9 [facility] [address] 38830- 6609 Aug, Obstructive sleep apnea G47.33 ; Obesity E66.9 ; Type 2 diabetes mellitus with hyperglycemia E11.65 ; Palpitations R00.2 and Corns and callosities L84 [facility] [address] 45990- 1583 Jul, [facility] [address] 70361- 5385 Jul, [facility] [address] 45703- 2148 Jun, Type 2 diabetes mellitus with hyperglycemia E11.65 ; Colon cancer screening Z12.11 ; Mixed hyperlipidemia E78.2 ; Non-alcoholic fatty liver disease K76.0 ; Gastroesophageal reflux disease with esophagitis K21.0 and Pain of upper abdomen R10.10 [facility] [id number] [place] [address] 16622- 7953 Jun, [facility] [id number] [place] [address] 46020 -8825 May, Infection of nose J34.89 [facility] [id number] [place] [address] 45657- 2955 May, Bilateral low back pain without sciatica M54.5 [facility] [id number] [place] [address] 76336- 1272 May, Type 2 diabetes mellitus with diabetic polyneuropathy E11.42 ; Obstructive sleep apnea G47.33 and Type 2 diabetes mellitus with hyperglycemia E11.65 [facility] [id number] [place] [address] 37[address] Apr, Bilateral low back pain without sciatica M54.5 [facility] [id number] [place] [address] 27792- 4132 Apr, Mixed hyperlipidemia E78.2 and Type 2 diabetes mellitus with hyperglycemia E11.65 [facility] [id number] [place] [address] 43298- 0872 Apr, Type 2 diabetes mellitus with diabetic polyneuropathy E11.42 [facility] [id number] [place] [address] 86302- 0045 Apr, [facility] [id number] [place] [address] 26207- 4193 Apr, Skin lesion of left arm L98.9 and Skin lesion of left leg L98.9 [facility] [id number] [place] [address] 95340- 4183 Mar, Bilateral low back pain without sciatica M54.5 [facility] [id number] [place] [address] 59760- 8300 Mar, Plantar fasciitis of left foot M72.2 ; Bursitis of left foot M71.572 and Type 2 diabetes mellitus with diabetic polyneuropathy E11.42 [facility] [id number] [place] [address] 38056- 3367 Feb, Non-alcoholic fatty liver disease K76.0 ; Keratoacanthoma L85.8 ; Seborrheic keratosis L82.1 ; Type 2 diabetes mellitus with hyperglycemia E11.65 and Nuclear cataract of both eyes H25.13 [facility] [id number] [place] [address] [id number] Feb, [facility] [id number] [place] [address] 72376- 5494 Feb, [facility] [id number] [place] [address] 45787- 6771 Feb, [facility] [address] 24432- 7994 Feb, Type 2 diabetes mellitus with hyperglycemia E11.65 ; Back muscle spasm M62.830 and Encounter for immunization Z23 [facility] [facility] [address] 18484- 0275 Jan, Plantar fasciitis of left foot M72.2 [facility] [address] 88387- 8497 Dec, [facility] [address] 53476- 1089 Dec, Plantar fasciitis of left foot M72.2 and Tarsal tunnel syndrome of left side G57.52 [facility] [address] 51668- 8968 Dec, [facility] [address] 24178 -8127 Nov, Mary Jane rash of groin B37.89 and Rash and nonspecific skin eruption R21 [facility] [address] 38471- 6857 Nov, [facility] [address] 31239- 1037 Oct, Type 2 diabetes mellitus with hyperglycemia E11.65 and Mixed hyperlipidemia E78.2 [facility] [facility] [address] 37626- 5402 Oct, [facility] [facility] [address] 78455- 7064 Oct, Chest pain, unspecified R07.9 ; Palpitations R00.2 ; Syncope R55 and Mixed hyperlipidemia E78.2 [facility] [facility] [address] 86245- 8468 Oct, Plantar fasciitis, bilateral M72.2 and Type 1 diabetes mellitus with diabetic neuropathy E10.40 [facility] [address] 33533- 5901 Oct, [facility] [address] [address] 9[address] September, Type 2 diabetes mellitus with hyperglycemia E11.65 [facility] [id number] [place] [address] 90517- 4095 September, Type 2 diabetes mellitus with hyperglycemia E11.65 ; Type 2 diabetes mellitus with diabetic polyneuropathy E11.42 ; Gastroesophageal reflux disease with esophagitis K21.0 and Headache, unspecified headache type R51 [facility] [id number] [place] [address] 91488- 6299 September, [facility] [id number] [place] [address] 17983- 1882 September, [facility] [id number] [place] [address] 92124- 8531 September, [facility] [id number] [place] [address] 79792- 2880 September, Other chest pain R07.89 ; Heart palpitations R00.2 ; Mixed hyperlipidemia E78.2 and Obesity E66.9 [facility] [id number] [place] [address] 71625- 2675 Aug, [facility] [id number] [place] [address] 20402- 3064 Aug, Type 2 diabetes mellitus with diabetic polyneuropathy E11.42 and Type 2 diabetes mellitus with hyperglycemia E11.65 [facility] [address], [place] [address]- 1457 Aug, [facility] [id number] [place] [address] 27705- 7511 Aug, [facility] [id number] [place] [address] 02864- 7878 Aug, [facility] [id number] [place] [address] 56264- 5213 Aug, Type 2 diabetes mellitus with hyperglycemia E11.65 [facility] [address], [place] [address]- 1042 Aug, [facility] [id number] [place] [address] 24521- 8956 Jul, Type 2 diabetes mellitus with diabetic polyneuropathy E11.42 [facility] [address], [place] [address]- 5278 Jul, Type 2 diabetes mellitus with hyperglycemia E11.65 [facility] [address], [place] [address]- 1135 Jul, [facility] [id number] [place] [address] 25695- 3074 Jul, [facility] [id number] [place] [address] 94696- 7920 Jul, [facility] [id number] [place] [address] 00069- 2886 Jul, Type 2 diabetes mellitus with diabetic polyneuropathy E11.42 and Type 2 diabetes mellitus with hyperglycemia E11.65 [facility] [address], [place] [address]- 7415 Jun, Obstructive sleep apnea G47.33 [facility] [address], [place] [address]- 6028 Jun, Type 2 diabetes mellitus with diabetic polyneuropathy E11.42 ; Primary narcolepsy with cataplexy G47.411 ; Abdominal bloating R14.0 ; Other chest pain R07.89 and Vision problems H54.7 [facility] [address], [place] [address]- 9065 Jun, [facility] [id number] [place] [address] 11264- 0230 May, [facility] [address], [place] [address]- 8963 Apr, [facility] [id number] [place] [address] 61467- 1961 Apr, Plantar fasciitis of left foot M72.2 [facility] [facility] [address] 40045- 8463 Mar, [facility] [id number] [place] [address] 49081- 5943 Mar, Plantar fasciitis of left foot M72.2 and Type 2 diabetes mellitus with diabetic polyneuropathy E11.42 [facility] [place] [id number] [place] [address] 51921- 8400 Feb, Type 2 diabetes mellitus with hyperglycemia E11.65 ; Mixed hyperlipidemia E78.2 and Encounter for immunization Z23 [facility] [id number] [place] [address] 23919- 8331 Feb, [facility] [address] 48636- 9987 Feb, [facility] [id number] [place] [address] 87134- 4475 Feb, Type 2 diabetes mellitus with hyperglycemia E11.65 [facility] [id number] [place] [address] 47862- 9564 Feb, Type 2 diabetes mellitus with hyperglycemia E11.65 [facility] [id number] [place] [address] 83009- 0692 Jan, [facility] [facility] [address] 89025- 7033 Dec, Pain in left foot M79.672 ; Other chronic pain G89.29 ; Type 2 diabetes mellitus with hyperglycemia E11.65 ; Obstructive sleep apnea G47.33 ; Falls frequently R29.6 ; Mixed hyperlipidemia E78.2 and Gastroesophageal reflux disease with esophagitis K21.0 [place] [place] [id number] [place] [address] 61313- 9626 Nov, [place] [address] 90002- 3698 Oct, Type 2 diabetes mellitus with diabetic polyneuropathy E11.42 [facility] [address], [place] [address]- 9394 Oct, [facility] [address] [address]- 3310 Oct, [facility] [id number] [place] [address] 40691- 5216 September, [facility] [id number] [place] [address] 26090- 4060 September, [facility] [id number] [place] [address] 51632- 2700 September, [facility] [id number] [place] [address] 78047- 7790 September, [facility] [id number] [place] [address] 75916- 0362 September, [facility] [address], [place] [address]- 4359 Aug, Type 2 diabetes mellitus with hyperglycemia E11.65 ; Mixed hyperlipidemia E78.2 and Right carpal tunnel syndrome G56.01 [facility] [address], [place] [address]- 5194 Aug, [facility] [address], [place] [address]- 2516 Jul, [facility] [address], [place] [address]- 4691 Jun, [facility] [address], [place] [address]- 4005 Jun, [facility] [address], [place] [address]- 2969 May, [facility] [address], [place] [address]- 3787 May, [facility] [id number] [place] [address] 94332- 8205 May, Type 2 diabetes mellitus with hyperglycemia E11.65 and Falls E888.9 [facility] [id number] [place] [address] 40997- 6125 Apr, Type 2 diabetes mellitus with hyperglycemia E11.65 [facility] [id number] [place] [address] 91355- 2485 Apr, [facility] [id number] [place] [address] 59440- 0124 Apr, Type 2 diabetes mellitus with hyperglycemia E11.65 [facility] [address] 96281- 5372 Apr, [facility] [id number] [place] [address] 23698- 3589 Mar, Type 2 diabetes mellitus with diabetic polyneuropathy E11.42 ; Bilateral low back pain without sciatica M54.5 and Dry nose J34.89 [facility] [id number] [place] [address] 20944- 0129 Mar, Palpitations R00.2 ; Syncope R55 ; DM (diabetes mellitus) E11.9 and Obesity E66.9 [facility] [id number] [place] [address] 95354- 1740 Mar, [facility] [id number] [place] [address] 73495- 5042 05 Mar, 2015 [facility] [id number] [place] [address] 25788- 0519 Mar, [facility] [id number] [place] [address] 46612- 3662 Feb, [facility] [id number] [place] [address] 27458- 9773 14 Jan, 2015 [facility] [id number] [place] [address] 05855- 3082 Jan, [facility] [address], [place] [address]- 4572 Jan, Falls E888.9 and Sinusitis 473.9 [facility] [id number] [place] [address] 54541- 4290 Dec, [facility] [id number] [place] [address] 61455- 7153 Dec, [facility] [id number] [place] [address] 77634- 9575 Dec, [facility] [id number] [place] [address] 20859- 5066 Dec, [facility] [id number] [place] [address] 66528- 8462 Dec, Diabetes mellitus without mention of complication, type II or unspecified type, not stated as uncontrolled 250.00 and Shortness of breath 786.05 [facility] [address], [place] [address]- 7386 Dec, [facility] [id number] [place] [address] 64894- 1235 Nov, [facility] [address] [address]- 5065 Nov, [facility] [id number] [place] [address] 33421- 0358 Oct, Restrictive lung disease 518.89 [facility] [address], [place] [address]- 9433 Oct, [facility] [id number] [place] [address] 71808- 9312 Oct, Shortness of breath 786.05 [facility] [address], [place] [address]- 6227 September, Other nonspecific abnormal finding of lung field 793.19 ; Diabetes mellitus without mention of complication, type II or unspecified type, not stated as uncontrolled 250.00 ; Hyperlipidemia LDL goal < 100 272.4 ; Narcolepsy, with cataplexy 347.01 ; Shortness of breath 786.05 and Chest pain 786.50 [facility] [id number] [place] [address] 05177- 6767 14 Aug, 2014 [facility] [id number] [place] [address] 08267- 4659 Aug, [facility] [id number] [place] [address] 52776- 1163 Jun, [facility] [id number] [place] [address] 07945- 9838 Jun, [facility] [id number] [place] [address] 91493- 3202 Jun, [facility] [id number] [place] [address] 89757- 6155 Jun, [facility] [id number] [place] [address] 20940- 6442 Jun, [facility] [id number] [place] [address] 47945- 6885 Jun, [facility] [id number] [place] [address] 30860- 5268 Jun, [facility] [id number] [place] [address] 83789- 2793 Jun, [facility] [id number] [place] [address] 12985- 5396 May, [facility] [id number] [place] [address] 83813- 9389 May, [facility] [id number] [place] [address] 25757- 0645 Apr, [facility] [id number] [place] [address] 60077- 0470 Apr, [facility] [place] [facility] [address] [id number] [place] [address]- 6100 Mar, [facility] [place] [facility] [address] [id number] [place] [address]- 2797 Mar, [facility] [place] [facility] [address] [id number] [place] [address]- 3608 Mar, [facility] [place] [facility] [address] [id number] [place] [address]- 0460 Mar, [facility] [place] [facility] [address] [id number] [place] [address]- 2147 Nov, [facility] [place] [facility] [address] [id number] [place] [address]- 1426 Nov, [facility] [place] [facility] [address] [id number] [place] [address]- 3206 Nov, [facility] [place] [facility] [address] [id number] [place] [address]- 5898 Nov, [facility] [place] [facility] [address] [id number] [place] [address]- 7382 Oct, [facility] [place] [facility] [address] [id number] [place] [address]- 0031 Oct, [facility] [place] [facility] [address] [id number] [place] [address]- 4579 Oct, [facility] [place] [facility] [address] [id number] [place] [address]- 8655 Oct, [facility] [place] [facility] [address] [id number] [place] [address]- 8840 Oct, [facility] [place] [facility] [address] [id number] [place] [address]- 1617 Oct, [facility] [place] [facility] [address] [id number] [place] [address]- 4697 Oct, [facility] [place] [facility] [address] [id number] [place] [address]- 2548 Oct, [facility] [place] [facility] [address] [id number] [place] [address]- 7390 Oct, [facility] [place] [facility] [address] [id number] [place] [address]- 2612 Oct, [facility] [place] [facility] [address] [id number] [place] [address]- 3356 September, [facility] [place] [facility] [address] [id number] [place] [address]- 8128 September, [facility] [place] [facility] [address] [id number] [place] [address]- 4895 Aug, [facility] [place] [facility] [address] [id number] [place] [address]- 2691 Aug, [facility] [place] [facility] [address] [id number] [place] [address]- 9390 Aug, [facility] [place] [facility] [address] [id number] [place] [address]- 3753 Aug, [facility] [place] [facility] [address] [id number] [place] [address]- 8334 Aug, [facility] [place] [facility] [address] [id number] [place] [address]- 1955 Aug, [facility] [place] [facility] [address] [id number] [place] [address]- 4029 Jul, [facility] [place] [facility] [address] [id number] [place] [address]- 2125 Jul, [facility] [place] [facility] [address] [id number] [place] [address]- 6585 Jul, [facility] [place] [facility] [address] [id number] [place] [address]- 7734 Jul, [facility] [place] [facility] [address] [id number] [place] [address]- 4372 Jul, [facility] [place] [facility] [address] [id number] [place] [address]- 7969 26 Jul, 2013 [facility] [address] [id number] [place] [address]- 6911 Jul, [facility] [place] [facility] [address] [id number] [place] [address]- 6486 Jul, [facility] [place] [facility] [address] [id number] [place] [address]- 2126 Jul, [facility] [place] [facility] [address] [id number] [place] [address]- 3475 Jul, [facility] [place] [facility] [address] [id number] [place] [address]- 7140 Jul, [facility] [place] [facility] [address] [id number] [place] [address]- 2380 Jul, [facility] [place] [facility] [address] [id number] [place] [address]- 7090 Jul, [facility] [place] [facility] [address] [id number] [place] [address] Jul, [facility] [place] [facility] [address] [id number] [place] [address] Jul, [facility] [place] [facility] [address] [id number] [place] [address] Jul, [facility] [place] [facility] [address] [id number] [place] [address] Jun, [facility] [place] [facility] [address] [id number] [place] [address] Jun, [facility] [place] [facility] [address] [id number] [place] [address] Jun, [facility] [place] [facility] [address] [id number] [place] [address] Jun, [facility] [place] [facility] [address] [id number] [place] [address] Jun, [facility] [place] [facility] [address] [id number] [place] [address] 24 Jun, 2013 [facility] [place] [facility] [address] [id number] [place] [address] Jun, [facility] [place] [facility] [address] [facility] [id number] [place] [address] Jun, [facility] [place] [facility] [address] [facility] [id number] [place] [address] 20 Jun, 2013 [facility] [place] [facility] [address] [id number] [place] [address] Jun, [facility] [place] [facility] [address] [facility] [id number] [place] [address] 18 Jun, 2013 [facility] [place] [facility] [address] [facility] [id number] [place] [address] 18 Jun, 2013 [facility] [place] [facility] [address] [facility] [id number] [place] [address] 14 Jun, 2013 [facility] [place] [facility] [address] [facility] [id number] [place] [address] 13 Jun, 2013 [facility] [place] [facility] [address] [facility] [id number] [place] [address] 13 Jun, 2013 [facility] [place] [facility] [address] [facility] [id number] [place] [address] 13 Jun, 2013 [facility] [place] [facility] [address] [facility] [id number] [place] [address] 13 Jun, 2013 [facility] [place] [facility] [address] [facility] [id number] [place] [address] 12 Jun, 2013 [facility] [place] [facility] [address] [facility] [id number] [place] [address]- [address] 12 Jun, 2013 [facility] [place] [facility] [address] [facility] [id number] [place] [address] 11 Jun, 2013 [facility] [place] [facility] [address] [id number] [place] [address] Jun, 2013 [facility] [place] [facility] [address] [id number] [place] [address] Jun, 2013 [facility] [place] [facility] [address] [id number] [place] [address] Jun, 2013 [facility] [place] [facility] [address] [id number] [place] [address] Jun, 2013 [facility] [place] [facility] [address] [id number] [place] [address] Jun, 2013 [facility] [place] [facility] [address] [id number] [place] [address] Jun, 2013 [facility] [place] [facility] [address] [id number] [place] [address] Jun, 2013 [facility] [place] [facility] [address] [id number] [place] [address] Jun, 2013 [facility] [place] [facility] [address] [id number] [place] [address] Jun, [facility] [place] [facility] [address] [id number] [place] [address] Jun, [facility] [place] [facility] [address] [id number] [place] [address] May, [facility] [place] [facility] [address] [id number] [place] [address] May, [facility] [place] [facility] [address] [id number] [place] [address] May, [facility] [place] [facility] [address] [id number] [place] [address] May, [facility] [place] [facility] [address] [id number] [place] [address] May, [facility] [place] [facility] [address] [id number] [place] [address] 16 May, 2013 [facility] [address] [id number] [place] [address] 15 May, 2013 [facility] [address] [id number] [place] [address] 15 May, 2013 [facility] [address] [id number] [place] [address] May, [facility] [address] [id number] [place] [address] May, [facility] [address] [id number] [place] [address] May, [facility] [address] [id number] [place] [address] May, [facility] [address] [id number] [place] [address] May, [facility] [address] [id number] [place] [address] May, [facility] [address] [id number] [place] [address] May, [facility] [address] [id number] [place] [address] Apr, [facility] [address] [id number] [place] [address] Apr, [facility] [address] [id number] [place] [address] 14 Dec, 2012 [facility] [place] [facility] [address] [id number] [place] [address] 08 Nov, 2012 [facility] [address] [id number] [place] [address] 10 May, 2012 [facility] [address] [id number] [place] [address] Apr, [facility] [address] [facility] [id number] [place] [id number] Apr, [facility] [address] [facility] [address] [id number] [address] Apr, [facility] [address] [facility] [id number], [place] [address] Apr, IMMUNIZATIONS No Known Immunizations SOCIAL HISTORY Never Assessed REASON FOR VISIT Samples request PLAN OF CARE VITAL SIGNS MEDICATIONS Medication Instructions Dosage Frequency Start Date End Date Duration Status Test strips Test Strips Contour teststrips directed 12 Dec, Active RESULTS No Results PROCEDURES No Known procedures INSTRUCTIONS MEDICATIONS ADMINISTERED No Known Medications MEDICAL (GENERAL) HISTORY Type Description Date Medical History asthma Medical History type II diabetes Medical History sleep apnea Medical History narcolepsy Surgical History hysterectomy Hospitalization History Chest pain-[facility] 02/27/17
--- OUTSIDE RECORDS SUMMARY | 2017-12-01 19:24 | XMS REPORT | Continuity of Care Document ---
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 g/dL 11.5-16.0 Blood hematocrit (volume fraction) 45 % 35-52 Automated erythrocyte mean corpuscular volume 89 [foz_us] 80-99 Automated erythrocyte mean corpuscular hemoglobin (mass per erythrocyte) 29 pg 25-34 Automated erythrocyte mean corpuscular hemoglobin concentration measurement ( mass/volume) 32 g/dL 32-36 Automated erythrocyte distribution width ratio 13.6 % 10.0-14.5 Automated blood platelet count (count/volume) 234 10*3/uL 130-400 Automated blood platelet mean volume measurement 11.6 [foz_us] 7.4-10.4 Automated blood neutrophils/100 leukocytes 59 % 42-75 Automated blood lymphocytes/100 leukocytes 33 % 12-44 Blood monocytes/100 leukocytes 7 % 0-12 Automated blood eosinophils/100 leukocytes 1 % 0-10 Automated blood basophils/100 leukocytes 1 % 0-10 Blood neutrophils automated count (number/volume) 5.6 10*3 1.8-7.8 Blood lymphocytes automated count (number/volume) 3.1 10*3 1.0-4.0 Blood monocytes automated count (number/volume) 0.7 10*3 0.0-1.0 Automated eosinophil count 0.1 10*3/uL 0.0-0.3 Automated blood basophil count (count/volume) 0.1 10*3/uL 0.0-0.1 PT panel in platelet poor plasma by coagulation assay - 02/27/17 20:05 Prothrombin time (PT) in platelet poor plasma by coagulation assay 12.6 s 12.2-14.7 INR in platelet poor plasma or blood by coagulation assay 0.9 0.8-1.4 Activated partial thromboplastin time (aPTT) in platelet poor plasma bycoagulation assay - 02/27/17 20:05 Activated partial thromboplastin time (aPTT) in platelet poor plasma bycoagulation assay 28 s 24-35 Comprehensive metabolic panel - 02/27/17 20:05 Serum or plasma sodium measurement (moles/volume) 140 mmol/L 135-145 Serum or plasma potassium measurement (moles/volume) 3.9 mmol/L 3.6-5.0 Serum or plasma chloride measurement (moles/volume) 103 mmol/L 98-107 Carbon dioxide 26 mmol/L 21-32 Serum or plasma anion gap determination (moles/volume) 11 mmol/L 5-14 Serum or plasma urea nitrogen measurement (mass/volume) 20 mg/dL 7-18 Serum or plasma creatinine measurement (mass/volume) 0.79 mg/dL 0.60-1.30 Serum or plasma urea nitrogen/creatinine mass ratio 25 NRG Serum or plasma creatinine measurement with calculation of estimated glomerular filtration rate > NRG Serum or plasma glucose measurement (mass/volume) 169 mg/dL 70-105 Serum or plasma calcium measurement (mass/volume) 9.9 mg/dL 8.5-10.1 Serum or plasma total bilirubin measurement (mass/volume) 0.8 mg/dL 0.1-1.0 Serum or plasma alkaline phosphatase measurement (enzymatic activity/volume) 111 U/L 40-136 Serum or plasma aspartate aminotransferase measurement (enzymatic activity/ volume) 25 U/L 5-34 Serum or plasma alanine aminotransferase measurement (enzymatic activity/volume ) 39 U/L 0-55 Serum or plasma protein measurement (mass/volume) 8.0 g/dL 6.4-8.2 Serum or plasma albumin measurement (mass/volume) 4.4 g/dL 3.2-4.5 Magnesium - 02/27/17 20:05 Magnesium 2.2 mg/dL 1.8-2.4 Serum or plasma troponin i.cardiac measurement (mass/volume) - 02/27/17 20:05 Serum or plasma troponin i.cardiac measurement (mass/volume) < ng/ mL <0.30 Myoglobin, serum - 02/27/17 20:05 Myoglobin, serum 24.0 ng/mL 10.0-92.0 Lipase - 02/27/17 20:05 Lipase 14 U/L 8-78 Serum or plasma lithium measurement (moles/volume) - 02/27/17 20:05 BNP level 12.5 pg/mL <100.0 Capillary blood glucose measurement by glucometer (mass/volume) - 02/28/17 00: 42 Capillary blood glucose measurement by glucometer (mass/volume) 168 mg/dL 70-110 Serum or plasma troponin i.cardiac measurement (mass/volume) - 02/28/17 01:50 Serum or plasma troponin i.cardiac measurement (mass/volume) < ng/ mL <0.30 Capillary blood glucose measurement by glucometer (mass/volume) - 02/28/17 05: 29 Capillary blood glucose measurement by glucometer (mass/volume) 134 mg/dL 70-110 Lipid 1996 panel - 02/28/17 06:10 Serum or plasma triglyceride measurement (mass/volume) 125 mg/dL <150 Serum or plasma cholesterol measurement (mass/volume) 151 mg/dL < 200 Serum or plasma cholesterol in HDL measurement (mass/volume) 40 mg/ dL 40-60 Cholesterol in LDL [mass/volume] in serum or plasma by direct assay 96 mg/dL 1-129 Serum or plasma cholesterol in VLDL measurement (mass/volume) 25 mg/ dL 5-40 Capillary blood glucose measurement by glucometer (mass/volume) - 02/28/17 11: 03 Capillary blood glucose measurement by glucometer (mass/volume) 103 mg/dL 70-110 Capillary blood glucose measurement by glucometer (mass/volume) - 02/28/17 13: 01 Capillary blood glucose measurement by glucometer (mass/volume) 99 mg/dL 70-110 Capillary blood glucose measurement by glucometer (mass/volume) - 02/28/17 14: 25 Capillary blood glucose measurement by glucometer (mass/volume) 92 mg/dL 70-110 TISSUE, 2 SPECIMENS - 04/12/17 14:13 A SOURCE NR A GROSS DESCRIPTION NR A DIAGNOSIS [facility] CBC - 04/19/17 12:41 WHITE BLOOD CELL COUNT 7.2 Thousand/uL 3.8-10.8 RED BLOOD CELL COUNT 4.82 Million/uL 3.80-5.10 HEMOGLOBIN 14.4 g/dL 11.7-15.5 HEMATOCRIT 42.1 % 35.0-45.0 MCV 87.3 fL 80.0-100.0 MCH 29.9 pg 27.0-33.0 MCHC 34.2 g/dL 32.0-36.0 RDW 13.1 % 11.0-15.0 PLATELET COUNT 210 Thousand/uL 140-400 MPV 11.9 fL 7.5-12.5 ABSOLUTE NEUTROPHILS 4550 cells/uL 7507-3918 ABSOLUTE LYMPHOCYTES 1973 cells/uL 850-3900 ABSOLUTE MONOCYTES 533 cells/uL 200-950 ABSOLUTE EOSINOPHILS 94 cells/uL 15-500 ABSOLUTE BASOPHILS 50 cells/uL 0-200 NEUTROPHILS 63.2 % NRG LYMPHOCYTES 27.4 % NRG MONOCYTES 7.4 % NRG EOSINOPHILS 1.3 % NRG BASOPHILS 0.7 % NRG Encounters ACCT No. Visit Date/Time Discharge Status Pt. Type Provider Facility Loc./Unit Complaint [id number] 06/17/2014 15:42:00 06/17/2014 23:59:59 CLS Outpatient QUINTEN GILLIAM MD [id number] 01/13/2014 16:10:00 01/13/2014 23:59:59 CLS Outpatient DARRYN RODRIGUES DDS [id number] 12/02/2013 09:26:00 12/02/2013 23:59:59 CLS Outpatient QUINTEN GILLIAM MD [id number] 11/02/2013 13:43:00 11/02/2013 23:59:59 CLS Outpatient DARRYN RODRIGUES DDS [id number] 08/05/2013 11:59:00 08/05/2013 23:59:59 CLS Outpatient QUINTEN GILLIAM MD [id number] 07/31/2013 10:41:00 07/31/2013 23:59:59 CLS Outpatient QUINTEN GILLIAM MD [id number] 07/04/2013 12:42:00 07/04/2013 23:59:59 CLS Outpatient BURTON PEREZ RAMY [place] [id number] 06/23/2013 13:34:00 06/23/2013 23:59:59 CLS Outpatient QUINTEN GILLIAM MD [id number] 06/22/2013 15:04:00 06/22/2013 23:59:59 CLS Outpatient ROSALINDA BRUNO APRN [id number] 06/01/2013 16:19:00 06/01/2013 23:59:59 CLS Outpatient DAGO CRUZ MD [id number] 05/14/2013 14:33:00 05/14/2013 23:59:59 CLS Outpatient QUINTEN GILLIAM MD [id number] 11/17/2012 12:46:00 11/17/2012 23:59:59 CLS Outpatient RONEY GALVEZ APRN [id number] 10/01/2008 10:59:00 10/01/2008 23:59:59 CLS Outpatient SHERON POTTER APRN [id number] 11/04/2017 10:00:00 11/04/2017 23:59:59 CLS Outpatient QUINTEN GILLIAM MD [facility] [id number] 04/19/2017 12:00:00 Document Registration [id number] 04/12/2017 10:40:00 Document Registration [id number] 11/27/2017 11:00:00 11/27/2017 23:59:59 CLS Preadmit QUINTEN GILLIAM MD Via [facility] CARD R00.2 PALPITATIONS [id number] 08/28/2017 08:28:00 11/26/2017 00:01:00 DIS Outpatient QUINTEN GILLIAM MD [facility] CARD R00.2 PALPITATIONS [id number] 07/30/2017 08:00:00 07/30/2017 23:59:59 CLS Preadmit DELMA EVANS DO [facility] ENDO SCREENING [id number] 07/23/2017 05:42:00 07/23/2017 23:59:59 CLS Outpatient DELMA EVANS DO [facility] PREOP COLONOSCOPY [id number] 02/27/2017 22:55:00 02/28/2017 17:00:00 DIS Inpatient ADALGISA MARTINEZ MD Via [facility] 4TH CHEST PAIN;ORTHOPNEA [id number] 01/19/2017 15:18:00 01/19/2017 19:05:00 DIS Emergency LINDSAY FRASER [facility] ER FALL, HIP PAIN [id number] 10/08/2016 13:02:00 10/08/2016 14:06:00 DIS Emergency TOM RANDALL MD [facility] ER HEART RACING [id number] 10/01/2016 07:24:00 10/01/2016 23:59:59 CLS Outpatient ARIANA JIMENEZ MD Via [facility] CARD R07.89 CHEST PAIN [id number] 09/26/2016 10:05:00 09/26/2016 23:59:59 CLS Outpatient ARIANA JIMENEZ MD Via [facility] CARD R07.89 OTHER CHEST PAIN [id number] 07/13/2016 08:36:00 07/13/2016 23:59:59 CLS Outpatient QUINTEN GILLIAM MD [facility] CARD ABDOMINAL BLOATING [id number] 04/13/2015 13:35:00 04/13/2015 23:59:59 CLS Outpatient ARIANA JIMENEZ MD [facility] CARD PALPITATIONS,SYNCOPE [id number] 01/24/2015 21:33:00 01/24/2015 23:03:00 DIS Emergency LINDSAY FRASER [facility] ER COUGH, SINUS DRIANAGE [id number] 12/24/2014 15:42:00 12/24/2014 23:59:59 CLS Outpatient GRAYSON KUMAR DO Via [facility] RT DYSPENA MARIOLA [id number] 10/03/2014 19:46:00 10/03/2014 20:53:00 DIS Emergency NAUN COLEMAN MD [facility] ER L EYE IRRITATION [id number] 09/29/2014 08:12:00 09/29/2014 23:59:59 CLS Outpatient QUINTEN GILLIAM MD [facility] CARD INTERMITTENT CHEST PAIN [id number] 09/27/2014 12:54:00 09/27/2014 23:59:59 CLS Outpatient QUINTEN GILLIAM MD [facility] RAD FOLLOW UP LUNG NODULE [id number] 08/27/2014 19:26:00 08/27/2014 22:21:00 DIS Emergency TOM RANDALL MD [facility] ER R SIDE PAIN [id number] 06/16/2014 19:47:00 06/17/2014 06:35:00 DIS Outpatient QUINTEN GILLIAM MD [facility] SLEEP CATAPLEXY,NARCOLEPSY [id number] 04/05/2014 00:24:00 04/05/2014 01:10:00 DIS Emergency NELY BAUGH MD [facility] ER MULTIPLE COMPLAINTS [id number] 03/22/2014 21:10:00 03/23/2014 17:50:00 DIS Outpatient QUINTEN GILLIAM MD [facility] SLEEP CATAPLEXY, NARCOLEPSY [id number] 07/26/2013 17:49:00 07/26/2013 20:08:00 DIS Emergency BROWNINGGOMEZ APRN [facility] ER MULTIPLE COMPLAINTS [id number] 07/01/2013 15:50:00 07/01/2013 23:59:59 CLS Outpatient QUINTEN GILLIAM MD [facility] RT SOB [id number] 06/26/2013 12:23:00 06/26/2013 23:59:59 CLS Outpatient QUINTEN GILLIAM MD [facility] RAD F/U NODULE [id number] 05/09/2013 21:35:00 05/12/2013 12:20:00 DIS Outpatient CHETAN GRAYSON MD [facility] CATH CP [id number] 04/06/2012 01:18:00 Document Registration [id number] 12/24/2011 10:35:00 Document Registration [id number] 08/20/2011 19:47:00 Document Registration [id number] 03/15/2011 22:51:00 Document Registration [id number] 02/25/2016 07:05:00 Document Registration
[2017-12-01] MEDS ORDERED: RT-ALBUTEROL/IPRATROPIUM 3 ML (DUONEB) VIAL INH ONE (19:30)
--- NOTE | 2017-12-01 19:43 | ED Cough/URI ---
General Chief Complaint: Cough/Cold/Flu Symptoms Stated Complaint: SINUS ISSUES,DRAINAGE Source: patient Exam Limitations: no limitations History of Present Illness Date Seen by Provider: Dec 01, 2017 Time Seen by Provider: 19:38 Initial Comments Patient presents to the emergency room with complaints of nasal drainage, cough , fevers for one week. She denies taking any tegx-ips-hujmmvv medications and reports that she's been unable to get an appointment with [facility]. Denies any chest pain, shortness of breath, trouble breathing. Timing/Duration: week Severity/Quality: mild, productive cough, sputum Prior Episodes/Possible Cause: no prior episodes Associated Symptoms: cough, fever/chills, muscle aches Allergies and Home Medications Allergies Coded Allergies: Penicillins (Verified Allergy, Severe, SWELLING IN THROAT, 12/01/17) Home Medications Albuterol Sulfate 6.7 Gm Hfa.aer.ad, 2 PUFF IH Q4H PRN for SHORTNESS OF BREATH, (Reported) Azithromycin 250 Mg Tablet, 250 MG PO UD TAKE 2 TABLETS TODAY, THEN TAKE 1 TABLET DAILY FOR 4 MORE DAYS Prescribed by: MAYELIN MONTALVO on 12/01/172030 Famotidine 20 Mg Tablet, 20 MG PO BID Prescribed by: ADALGISA MARTINEZ on 02/28/171540 Gabapentin 300 Mg Capsule, 600 MG PO TID, (Reported) TAKES 2 (300MG) CAPSULES Insulin Aspart 300 Units/3 Ml Solution, 25 UNITS SQ TIDWM, (Reported) Insulin Detemir 100 Unit/1 Ml Insuln.pen, 50 UNITS PO BID, (Reported) Methylprednisolone 4 Mg Tab.ds.pk, 4 MG PO UD Prescribed by: MAYELIN MONTALVO on 12/01/172030 Pravastatin Sodium 40 Mg Tablet, 40 MG PO HS, (Reported) Sucralfate 1 Gm Tablet, 1 GM PO BID Prescribed by: ADALGISA MARTINEZ on 02/28/17 154 Patient Home Medication List Home Medication List Reviewed: Yes Review of Systems Constitutional: see HPI, chills, fever EENTM: nose congestion Respiratory: see HPI, cough All Other Systems Reviewed Negative Unless Noted: Yes Past Zixwtec-Yyrmdb-Htlsab Hx Patient Social History Alcohol Use: Denies Use Recreational Drug Use: No Smoking Status: Never a Smoker 2nd Hand Smoke Exposure: Yes Recent Foreign Travel: No Contact w/Someone Who Travel: No Recent Hopitalizations: No Physical Abuse: No Sexual Abuse: No Immunizations Up To Date Tetanus Booster (TDap): Unknown PED Vaccines UTD: No Date of Pneumonia Vaccine: Feb 19, 2017 Date of Influenza Vaccine: Feb 19, 2017 Seasonal Allergies Seasonal Allergies: No Past Medical History Surgeries: Yes Cardiac, Hysterectomy Respiratory: Yes Asthma, Sleep Apnea Currently Using CPAP: Yes Cardiac: Yes High Cholesterol Neurological: Yes Headaches /Migraines, Neuropathy Reproductive Disorders: No [employer] History: Hysterectomy Genitourinary: Yes (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) Renal Failure Gastrointestinal: Yes Gastroesophageal Reflux Musculoskeletal: Yes Arthritis Endocrine: Yes Diabetes, Insulin dep HEENT: No Loss of Vision: Denies Hearing Impairment: Denies Cancer: No Psychosocial: Yes (NARCOLEPSY) Nursing Suicide Risk Score: 0 Integumentary: No Blood Disorders: No Adverse Reaction/Blood Tranf: No Family Medical History Alcoholism 03 FATHER, Onset:Unknown 09 SISTER, Onset:Unknown Bone cancer 09 BROTHER Cancer 09 BROTHER, Onset:30's - 40 Cardiovascular disease 03 FATHER 03 MOTHER Chest pain 03 FATHER, Onset:60 years & older 03 MOTHER, Onset:60 years & older Diabetes mellitus 09 SISTER Family history: Cardiovascular disease 03 FATHER, Onset:Unknown 03 MOTHER, Onset:Unknown 09 BROTHER, Onset:Unknown Family history: Diabetes mellitus 03 FATHER 03 MOTHER, Onset:Unknown 09 BROTHER, Onset:Unknown Heart disease 03 MOTHER, Onset:Unknown 09 BROTHER, Onset:Unknown Seizure disorder 09 BROTHER, Onset:Unknown 09 SISTER, Onset:Unknown Stroke 09 SISTER No Family History of: Abdominal aortic aneurysm Mccracken's disease Aphasia Cancer of colon Cataract Congenital heart disease Congestive heart failure Cystic fibrosis Dementia Family history: Allergy Family history: Alzheimer's disease Family history: Arthritis Family history: Asthma Family history: Breast disease Family history: Coronary thrombosis Family history: Gastrointestinal disease Family history: Glaucoma Family history: Hypertension Family history: Osteoporosis Family history: Thyroid disorder Headache Hearing loss Hereditary disease History of - anemia History of - disorder History of - respiratory disease History of drug abuse Human immunodeficiency virus (HIV) seropositivity Hypercholesterolemia Infertile Kidney disease Malignant neoplasm of lung Myocardial infarction Parkinson's disease Prostate cancer Psychotic disorder Tuberculosis Visual impairment Heart Disease, Seizures Physical Exam Vital Signs - First Documented 12/01/17 19:32 Temp 98.3 Pulse 130 Resp 18 B/P (MAP) 127/75 (92) Pulse Ox 96 O2 Delivery Room Air Capillary Refill : Height: 5'5.00" Weight: 190lbs. 4.8oz. 86.551445ai; 31.7 BMI Method:Stated General Appearance: WD/WN, no apparent distress HEENT: PERRL/EOMI, normal ENT inspection, TMs normal, pharynx normal Respiratory: chest non-tender, lungs clear, normal breath sounds, no respiratory distress, no accessory muscle use Cardiovascular: regular rate, rhythm, no edema, no gallop, no JVD, no murmur Neurologic/Psychiatric: alert, normal mood/affect, oriented x 3 Skin: normal color, warm/dry Progress/Results/Core Measures Suspected Sepsis SIRS Temperature: Pulse: Respiratory Rate: Laboratory Tests 12/01/17 19:45: White Blood Count 8.4 Blood Pressure / Mean: Laboratory Tests 12/01/17 19:45: Creatinine 0.82, Platelet Count 206, Total Bilirubin 1.2H Results/Orders Lab Results Laboratory Tests Test 12/01/17 19:45 Range/Units White Blood Count 8.4 4.3-11.0 10^3/uL Red Blood Count 4.72 4.35-5.85 10^6/uL Hemoglobin 13.9 11.5-16.0 G/DL Hematocrit 41 35-52 % Mean Corpuscular Volume 87 80-99 FL Mean Corpuscular Hemoglobin 29 25-34 PG Mean Corpuscular Hemoglobin Concent 34 32-36 G/DL Red Cell Distribution Width 14.0 10.0-14.5 % Platelet Count 206 130-400 10^3/uL Mean Platelet Volume 11.8 H 7.4-10.4 FL Neutrophils (%) (Auto) 51 42-75 % Lymphocytes (%) (Auto) 35 12-44 % Monocytes (%) (Auto) 10 0-12 % Eosinophils (%) (Auto) 3 0-10 % Basophils (%) (Auto) 1 0-10 % Neutrophils # (Auto) 4.3 1.8-7.8 X 10^3 Lymphocytes # (Auto) 2.9 1.0-4.0 X 10^3 Monocytes # (Auto) 0.9 0.0-1.0 X 10^3 Eosinophils # (Auto) 0.3 0.0-0.3 10^3/uL Basophils # (Auto) 0.1 0.0-0.1 10^3/uL Sodium Level 137 135-145 MMOL/L Potassium Level 3.7 3.6-5.0 MMOL/L Chloride Level 105 98-107 MMOL/L Carbon Dioxide Level 22 21-32 MMOL/L Anion Gap 10 5-14 MMOL/L Blood Urea Nitrogen 14 7-18 MG/DL Creatinine 0.82 0.60-1.30 MG/DL Estimat Glomerular Filtration Rate > 60 BUN/Creatinine Ratio 17 Glucose Level 226 H 70-105 MG/DL Calcium Level 9.2 8.5-10.1 MG/DL Total Bilirubin 1.2 H 0.1-1.0 MG/DL Aspartate Amino Transf (AST/SGOT) 20 5-34 U/L Alanine Aminotransferase (ALT/SGPT) 30 0-55 U/L Alkaline Phosphatase 110 40-136 U/L Total Protein 6.9 6.4-8.2 GM/DL Albumin 4.2 3.2-4.5 GM/DL My Orders Orders - BERNOT,MAYELIN Albuterol/Ipra Inhalation Soln (Duoneb I (12/01/17 19:30) Svn Small Volume Nebulizer (12/01/17 19:24) Cbc With Automated Diff (12/01/17 19:24) Comprehensive Metabolic Panel (12/01/17 19:24) Chest Pa/Lat (2 View) (12/01/17 19:24) Medications Given in ED Vital Signs/I&O 12/01/17 12/01/17 12/01/17 12/01/17 19:32 19:32 19:35 20:40 Temp 98.3 Pulse 130 78 Resp 18 14 B/P (MAP) 127/75 (92) 127/75 Pulse Ox 96 94 96 O2 Delivery Room Air Room Air Room Air Room Air Capillary Refill : Progress Note : Progress Note Patient was informed to keep a close eye on her blood sugars being on steroids. The steroid is a lower dose steroid. She agrees with plan to discharge, close follow-up with her primary care physician, and return precautions. Departure Impression Primary Impression: Upper respiratory infection Disposition: 01 HOME, SELF-CARE Condition: Stable/Unchanged Departure-Patient Inst. Decision time for Depature: 20:29 Referrals: RAMY MANRIQUE,LOCAL PHYSICIAN (PCP) Primary Care Physician Patient Instructions: Bacterial Upper Respiratory Infection, Adult (DC), Viral Upper Respiratory Infection, Adult (DC) Add. Discharge Instructions: Take medication as directed. You may use [id number] antitussives as needed. You may use Afrin as needed. You may take Tylenol and ibuprofen as directed by the bottle. Return back to the emergency room for any worsening symptoms or any concerns as needed. Follow up with Dr. Manrique within 1 week for recheck. Return back to the emergency room for any concerns as needed. All discharge instructions reviewed with patient and/or family. Voiced understanding. Scripts Azithromycin (Zithromax) 250 Mg Tablet 250 MG PO UD, #6 TAB TAKE 2 TABLETS TODAY, THEN TAKE 1 TABLET DAILY FOR 4 MORE DAYS Prov: MAYELIN MONTALVO 12/01/17 Methylprednisolone (Medrol) 4 Mg Tab.ds.pk 4 MG PO UD, #1 PKG Prov: MAYELIN MONTALVO 12/01/17 MAYELIN MONTALVO Dec 01, 2017 19:43
--- NOTE | 2017-12-01 20:09 | Diagnostic Imaging Report ---
INDICATION: Congestion and cough COMPARISON: 02/27/2017 FINDINGS: Frontal and lateral views of the chest demonstrate clear lungs bilaterally. The heart is normal. There is no pneumothorax. The osseous structures are normal. IMPRESSION: Negative chest Dictated by: Dictated on workstation # [id number]
[2017-12-01 20:11] LABS: BASOPHILS # (AUTO) 0.1 10^3/uL (0.0-0.1); BASOPHILS % (AUTO) 1 % (0-10); EOSINOPHILS # (AUTO) 0.3 10^3/uL (0.0-0.3); EOSINOPHILS % (AUTO) 3 % (0-10); HEMATOCRIT 41 % (35-52); HEMOGLOBIN 13.9 G/DL (11.5-16.0); LYMPHOCYTES # (AUTO) 2.9 X 10^3 (1.0-4.0); LYMPHOCYTES % (AUTO) 35 % (12-44); MEAN CORPUSCULAR HEMOGLOBIN 29 PG (25-34); MEAN CORPUSCULAR HGB CONC 34 G/DL (32-36); MEAN CORPUSCULAR VOLUME 87 FL (80-99); MEAN PLATELET VOLUME 11.8 FL (7.4-10.4); MONOCYTES # (AUTO) 0.9 X 10^3 (0.0-1.0); MONOCYTES % (AUTO) 10 % (0-12); NEUTROPHILS # (AUTO) 4.3 X 10^3 (1.8-7.8); NEUTROPHILS % (AUTO) 51 % (42-75); PLATELET COUNT 206 10^3/uL (130-400); RED BLOOD COUNT 4.72 10^6/uL (4.35-5.85); WHITE BLOOD COUNT 8.4 10^3/uL (4.3-11.0)
[2017-12-01 20:26] LABS: ALANINE AMINOTRANSFERASE 30 U/L (0-55); ALBUMIN 4.2 GM/DL (3.2-4.5); ALKALINE PHOSPHATASE 110 U/L (40-136); BILIRUBIN,TOTAL 1.2 MG/DL (0.1-1.0); BUN/CREATININE RATIO 17; CALCIUM 9.2 MG/DL (8.5-10.1); CARBON DIOXIDE 22 MMOL/L (21-32); CHLORIDE 105 MMOL/L (98-107); CREATININE SERUM 0.82 MG/DL (0.60-1.30); GFR ESTIMATED > 60; GLUCOSE 226 MG/DL (70-105); POTASSIUM 3.7 MMOL/L (3.6-5.0); SODIUM 137 MMOL/L (135-145); TOTAL PROTEIN 6.9 GM/DL (6.4-8.2)
[2017-12-01] MEDS ORDERED: AZIT250T PO (20:31)
[2017-12-01] MEDS ORDERED: METH4TAB PO (20:31)
[2017-12-01 20:40] VITALS: BP 127/75
== END 2017-12-01 20:38 | disposition home or self-care (01) ==
LOC: EDUNIT# 18:59 → ER 19:01
DX: J06.9 Acute upper respiratory infection, unspecified (principal); J45.909 Unspecified asthma, uncomplicated; G47.30 Sleep apnea, unspecified; E78.00 Pure hypercholesterolemia, unspecified; G43.909 Migraine, unspecified, not intractable, without status migrainosus; E11.42 Type 2 diabetes mellitus with diabetic polyneuropathy; K21.9 Gastro-esophageal reflux disease without esophagitis; Z88.0 Allergy status to penicillin; Z79.51 Long term (current) use of inhaled steroids; Z80.8 Family history of malignant neoplasm of other organs or systems; Z82.49 Family history of ischemic heart disease and other diseases of the circulatory system; Z79.4 Long term (current) use of insulin; Z77.22 Contact with and (suspected) exposure to environmental tobacco smoke (acute) (chronic); Z90.710 Acquired absence of both cervix and uterus
CPT/HCPCS: 36415; 71046; 80053; 85025; 94640

== ENCOUNTER 2018-03-08 22:38 | Emergency (ER) | payer MEDICAID ==
[~2018-03-08] VITALS: Ht 162.6 cm; Wt 90.7 kg
[~2018-03-08 22:38] MED LIST changes: +AZIT250T PO; +METH4TAB PO
--- OUTSIDE RECORDS SUMMARY | 2018-03-08 22:45 | XMS REPORT ---
Author Author [facility] Address [address] [place] [address] [address] Prov[address] Lab Technician Name Role Phone QUINTEN GILLIAM Unavailable PROBLEMS Type Condition ICD9-CM Code FTZ33-OD Code Onset Dates Condition Status SNOMED Code Problem Right carpal tunnel syndrome G56.01 Active 41231510 Problem Gastroesophageal reflux disease with esophagitis K21.0 Active 143663851 Problem Falls frequently R29.6 Active 967840181 Problem Porokeratosis Q82.8 Active 882223233 Problem Posterior subcapsular age-related cataract of both eyes H25.043 Active 5804515 Problem Non-alcoholic fatty liver disease K76.0 Active 938794104 Problem Delayed gastric emptying K30 Active 586227472 Problem Pain in left foot M79.672 Active 2482780 Problem Other chronic pain G89.29 Active 01606066 Problem Tarsal tunnel syndrome of left side G57.52 Active 33423054 Problem Obesity E66.9 Active 337515389 Problem Hypermetropia, bilateral H52.03 Active 88274265 Problem Type 2 diabetes mellitus with hyperglycemia E11.65 Active 41858070 Problem Nuclear cataract of both eyes H25.13 Active 98084552 Problem Presbyopia OU H52.4 Active 45524155 Problem Obstructive sleep apnea G47.33 Active 90564278 Problem Shortness of breath R06.02 Active 946457685 Problem Type 2 diabetes mellitus with diabetic polyneuropathy E11.42 Active 99651718 Problem Lung nodule R91.1 Active 726253591 Problem Mixed hyperlipidemia E78.2 Active 187897281 Problem Primary narcolepsy with cataplexy G47.411 Active 459717340 ALLERGIES No Information ENCOUNTERS Encounter Location Date Diagnosis [facility] [address] [address] Feb, Type 2 diabetes mellitus with hyperglycemia E11.65 [facility] [id number] [place] [address] 93317- 3791 Feb, Viral upper respiratory tract infection J06.9 and Encounter for immunization Z23 [facility] [id number] [place] [address] 62718- 7863 Feb, [facility] [id number] [place] [address] 02770- 4174 Jan, Type 2 diabetes mellitus with hyperglycemia E11.65 [facility] [address] 50967- 4109 Jan, Type 2 diabetes mellitus with hyperglycemia E11.65 [facility] [address] 12566- 4826 Dec, Chest pain on breathing R07.1 [facility] [id number] [place] [address] 64520 -0264 Dec, Chest pain on breathing R07.1 [facility] [id number] [place] [address] 44046- 1061 Dec, Well woman exam Z01.419 ; Screening for breast cancer Z12.31 and Screening for colon cancer Z12.11 [facility] [id number] [place] [address] 62573- 2339 Dec, [facility] [id number] [place] [address] 54397- 8186 Dec, Type 2 diabetes mellitus with hyperglycemia E11.65 ; Mixed hyperlipidemia E78.2 and Gastroesophageal reflux disease with esophagitis K21.0 [facility] [id number] [place] [address] 88754- 8928 Nov, Type 2 diabetes mellitus with hyperglycemia E11.65 and Mixed hyperlipidemia E78.2 [facility] [id number] [place] [address] 02472- 4323 Nov, [facility] [id number] [place] [address] 54310- 3903 Oct, Back muscle spasm M62.830 and Bilateral low back pain without sciatica M54.5 [facility] [id number] [place] [address] 26679- 7378 Oct, [facility] [id number] [place] [address] 14731- 6393 September, [facility] [id number] [place] [address] 09237- 7009 September, Type 2 diabetes mellitus with hyperglycemia E11.65 [facility] [id number] [place] [address] 42623- 2670 September, Type 2 diabetes mellitus with hyperglycemia E11.65 [facility] [id number] [place] [address] 06911- 6306 September, Porokeratosis Q82.8 and Type 2 diabetes mellitus with diabetic polyneuropathy E11.42 [facility] [id number] [place] [address] 96077 -5857 Aug, Seasonal allergic rhinitis, unspecified trigger J30.2 [facility] [id number] [place] [address] 20990- 9311 Aug, [facility] [id number] [place] [address] 91737- 1107 Aug, Bilateral low back pain without sciatica M54.5 [facility] [id number] [place] [address] [id number] Aug, Dental examination V72.2 and Dental examination Z01.20 [facility] [id number] [place] [address] 20161- 2330 Aug, Dental examination Z01.20 and Dental caries K02.9 [facility] [id number] [place] [address] 12226- 3850 Aug, Obstructive sleep apnea G47.33 ; Obesity E66.9 ; Type 2 diabetes mellitus with hyperglycemia E11.65 ; Palpitations R00.2 and Corns and callosities L84 [facility] [id number] [place] [address] 84910- 3428 Jul, [facility] [id number] [place] [address] 40117- 1355 Jul, [facility] [id number] [place] [address] 56654- 4089 Jun, Type 2 diabetes mellitus with hyperglycemia E11.65 ; Colon cancer screening Z12.11 ; Mixed hyperlipidemia E78.2 ; Non-alcoholic fatty liver disease K76.0 ; Gastroesophageal reflux disease with esophagitis K21.0 and Pain of upper abdomen R10.10 [facility] [id number] [place] [address] 70486- 4734 09 Jun, 2017 Falls frequently R29.6 [facility] [id number] [place] [address] 84346 -2884 May, Infection of nose J34.89 [facility] [id number] [place] [address] 66971- 2323 May, Bilateral low back pain without sciatica M54.5 [facility] [id number] [place] [address] 75826- 1368 May, Type 2 diabetes mellitus with diabetic polyneuropathy E11.42 ; Obstructive sleep apnea G47.33 and Type 2 diabetes mellitus with hyperglycemia E11.65 [facility] [id number] [place] [address] 72275- 7433 Apr, Bilateral low back pain without sciatica M54.5 [facility] [id number] [place] [address] 15921- 2006 Apr, Mixed hyperlipidemia E78.2 and Type 2 diabetes mellitus with hyperglycemia E11.65 [facility] [id number] [place] [address] 89507- 4350 Apr, Type 2 diabetes mellitus with diabetic polyneuropathy E11.42 [facility] [id number] [place] [address] 86145- 4500 Apr, [facility] [id number] [place] [address] 92927- 9001 Apr, Skin lesion of left arm L98.9 and Skin lesion of left leg L98.9 [facility] [id number] [place] [address] 53945- 8980 Mar, Bilateral low back pain without sciatica M54.5 [facility] [address] 71760- 4822 Mar, Plantar fasciitis of left foot M72.2 ; Bursitis of left foot M71.572 and Type 2 diabetes mellitus with diabetic polyneuropathy E11.42 [facility] [address] 57791- 3519 Feb, Non-alcoholic fatty liver disease K76.0 ; Keratoacanthoma L85.8 ; Seborrheic keratosis L82.1 ; Type 2 diabetes mellitus with hyperglycemia E11.65 and Nuclear cataract of both eyes H25.13 [facility] [address] [id number] Feb, [facility] [address] 73575- 1481 Feb, [facility] [address] 50599- 2467 Feb, [facility] [id number] [place] [address] 94042- 8140 Feb, Type 2 diabetes mellitus with hyperglycemia E11.65 ; Back muscle spasm M62.830 and Encounter for immunization Z23 [facility] [id number] [place] [address] 47989- 6296 Jan, Plantar fasciitis of left foot M72.2 [facility] [id number] [place] [address] 97263- 1481 Dec, [facility] [id number] [place] [address] 17373- 8995 Dec, Plantar fasciitis of left foot M72.2 and Tarsal tunnel syndrome of left side G57.52 [facility] [id number] [place] [address] 64592- 7426 Dec, [facility] [id number] [place] [address] 66438 -3725 Nov, Mary Jane rash of groin B37.89 and Rash and nonspecific skin eruption R21 [facility] [address] 99085- 7529 Nov, [facility] [id number] [place] [address] 47127- 9351 Oct, Type 2 diabetes mellitus with hyperglycemia E11.65 and Mixed hyperlipidemia E78.2 [facility] [id number] [place] [address] 42027- 6675 Oct, [facility] [id number] [place] [address] 46262- 0902 Oct, Chest pain, unspecified R07.9 ; Palpitations R00.2 ; Syncope R55 and Mixed hyperlipidemia E78.2 [facility] [id number] [place] [address] 62810- 2107 Oct, Plantar fasciitis, bilateral M72.2 and Type 1 diabetes mellitus with diabetic neuropathy E10.40 [facility] [id number] [place] [address] 09232- 7811 Oct, [facility] [id number] [place] [address] 96594- 4868 September, Type 2 diabetes mellitus with hyperglycemia E11.65 [facility] [id number] [place] [address] 89515- 1952 September, Type 2 diabetes mellitus with hyperglycemia E11.65 ; Type 2 diabetes mellitus with diabetic polyneuropathy E11.42 ; Gastroesophageal reflux disease with esophagitis K21.0 and Headache, unspecified headache type R51 [facility] [id number] [place] [address] 25301- 8585 September, [facility] [address] [address]- 9730 September, [facility] [address] [address]- 6793 September, [facility] [address] [address]- 1611 September, Other chest pain R07.89 ; Heart palpitations R00.2 ; Mixed hyperlipidemia E78.2 and Obesity E66.9 [facility] [address] [address]- 4283 Aug, [facility] [id number] [place] [address] 69129- 6455 Aug, Type 2 diabetes mellitus with diabetic polyneuropathy E11.42 and Type 2 diabetes mellitus with hyperglycemia E11.65 [facility] [address] [address]- 4213 Aug, [facility] [address] [address]- 3230 Aug, [facility] [address] [address]- 1849 Aug, [facility] [address] [address]- 0602 Aug, Type 2 diabetes mellitus with hyperglycemia E11.65 [facility] [address] [address]- 7125 Aug, [facility] [address] [address]- 2904 Jul, Type 2 diabetes mellitus with diabetic polyneuropathy E11.42 [facility] [address] [address]- 8438 Jul, Type 2 diabetes mellitus with hyperglycemia E11.65 [facility] [address] [address]- 1083 Jul, [facility] [id number] [place] [address] 13725- 8962 Jul, [facility] [id number] [place] [address] 49923- 2782 Jul, [facility] [id number] [place] [address] 51228- 7244 Jul, Type 2 diabetes mellitus with diabetic polyneuropathy E11.42 and Type 2 diabetes mellitus with hyperglycemia E11.65 [facility] [id number] [place] [address] 46637- 9639 Jun, Obstructive sleep apnea G47.33 [facility] [address] 67861- 4439 Jun, Type 2 diabetes mellitus with diabetic polyneuropathy E11.42 ; Primary narcolepsy with cataplexy G47.411 ; Abdominal bloating R14.0 ; Other chest pain R07.89 and Vision problems H54.7 [facility] [id number] [place] [address] 22020- 2485 Jun, [facility] [id number] [place] [address] 67702- 8074 May, [facility] [id number] [place] [address] 51056- 2901 Apr, [facility] [id number] [place] [address] 57029- 0999 Apr, Plantar fasciitis of left foot M72.2 [facility] [id number] [place] [address] 16522- 4272 Mar, [facility] [id number] [place] [address] 58770- 5780 Mar, Plantar fasciitis of left foot M72.2 and Type 2 diabetes mellitus with diabetic polyneuropathy E11.42 [facility] [id number] [place] [address] 50765- 7323 Feb, Type 2 diabetes mellitus with hyperglycemia E11.65 ; Mixed hyperlipidemia E78.2 and Encounter for immunization Z23 [facility] [address] [address]- 3585 Feb, [facility] [id number] [place] [address] 23756- 0955 Feb, [facility] [id number] [place] [address] 58962- 2515 Feb, Type 2 diabetes mellitus with hyperglycemia E11.65 [facility] [id number] [place] [address] 42600- 1330 Feb, Type 2 diabetes mellitus with hyperglycemia E11.65 [facility] [id number] [place] [address] 99282- 0928 Jan, [facility] [id number] [place] [address] 06487- 2164 Dec, Pain in left foot M79.672 ; Other chronic pain G89.29 ; Type 2 diabetes mellitus with hyperglycemia E11.65 ; Obstructive sleep apnea G47.33 ; Falls frequently R29.6 ; Mixed hyperlipidemia E78.2 and Gastroesophageal reflux disease with esophagitis K21.0 [facility] [address] [place] [address] 98163- 1651 Nov, [facility] [id number] [place] [address] 42215- 3345 Oct, Type 2 diabetes mellitus with diabetic polyneuropathy E11.42 [facility] [address] [place] [address] 55656- 2153 Oct, [facility] [id number] [place] [address] 77004- 9012 Oct, [facility] [id number] [place] [address] 87733- 2384 September, [facility] [id number] [place] [address] 24870- 8364 September, [facility] [address] [place] [address]- 4160 September, [facility] [address] [address]- 2271 September, [facility] [address] [address]- 9494 September, [facility] [address] [place] [address] 98080- 7227 Aug, Type 2 diabetes mellitus with hyperglycemia E11.65 ; Mixed hyperlipidemia E78.2 and Right carpal tunnel syndrome G56.01 [facility] [address] [address]- 6012 Aug, [facility] [id number] [place] [address] 87366- 7576 Jul, [facility] [id number] [place] [address] 25675- 2345 Jun, [facility] [id number] [address]- 9485 Jun, [facility] [address] [address]- 2885 May, [facility] [address] [address]- 4561 May, [facility] [address] [address]- 5972 May, Type 2 diabetes mellitus with hyperglycemia E11.65 and Falls E888.9 [facility] [address] [address]- 6492 Apr, Type 2 diabetes mellitus with hyperglycemia E11.65 [facility] [address] [address]- 1248 Apr, [facility] [address] [address]- 4684 Apr, Type 2 diabetes mellitus with hyperglycemia E11.65 [facility] [id number] [place] [address] 62636- 2878 Apr, [facility] [address] 30496- 3784 Mar, Type 2 diabetes mellitus with diabetic polyneuropathy E11.42 ; Bilateral low back pain without sciatica M54.5 and Dry nose J34.89 [facility] [address] 31513- 5790 Mar, Palpitations R00.2 ; Syncope R55 ; DM (diabetes mellitus) E11.9 and Obesity E66.9 [facility] [address] 72947- 8379 Mar, [facility] [id number] [place] [address] 58623- 8671 Mar, [facility] [address] 62679- 2857 Mar, [facility] [id number] [place] [address] 45355- 3383 Feb, [facility] [id number] [place] [address] 00724- 0139 Jan, [facility] [id number] [place] [address] 41837- 6937 Jan, [facility] [id number] [place] [address] 66089- 5705 Jan, Falls E888.9 and Sinusitis 473.9 [facility] [id number] [place] [address] 34120- 9432 Dec, [facility] [id number] [place] [address] 40767- 4516 Dec, [facility] [id number] [place] [address] 47395- 0493 Dec, [facility] [id number] [place] [address] 06501- 6549 Dec, [facility] [id number] [place] [address] 945474- 7786 Dec, Diabetes mellitus without mention of complication, type II or unspecified type, not stated as uncontrolled 250.00 and Shortness of breath 786.05 [facility] [id number] [place] [address] 822136- 8279 Dec, [facility] [id number] [place] [address] 39128- 8484 Nov, [facility] [id number] [place] [address] 707305- 7692 Nov, [facility] [id number] [place] [address] 635407- 3494 Oct, Restrictive lung disease 518.89 [facility] [id number] [place] [address] 177134- 1618 Oct, [facility] [id number] [place] [address] 70317- 6688 Oct, Shortness of breath 786.05 [facility] [id number] [place] [address] 409245- 4743 September, Other nonspecific abnormal finding of lung field 793.19 ; Diabetes mellitus without mention of complication, type II or unspecified type, not stated as uncontrolled 250.00 ; Hyperlipidemia LDL goal < 100 272.4 ; Narcolepsy, with cataplexy 347.01 ; Shortness of breath 786.05 and Chest pain 786.50 [facility] [id number] [place] [address] 96796- 7794 Aug, [facility] [id number] [place] [address] 483560- 0837 Aug, [facility] [id number] [place] [address] 239256- 9989 Jun, [facility] [id number] [place] [address] 68141- 9268 Jun, 2014 [facility] [place] [facility] [address] [facility] [id number] [place] [address]- 7749 Jun, 2014 [facility] [place] [facility] [address] [facility] [id number] [place] 6412 Jun, 2014 [facility] [place] [facility] [address] [facility] [id number] [place] [address]- 2698 Jun, 2014 [facility] [place] [facility] [address] [facility] [id number] [place] [address]- 3021 Jun, 2014 [facility] [place] [facility] [address] [facility] [id number] [place] [address]- 2021 Jun, 2014 [facility] [place] [facility] [address] [facility] [id number] [place] [address]- 6278 Jun, 2014 [facility] [place] [facility] [address] [facility] [id number] [address]- 7747 May, [facility] [place] [facility] [address] [facility] [id number] [place] [address]- 1786 May, [facility] [place] [facility] [address] [facility] [id number] [place] [address]- 2304 Apr, [facility] [place] [facility] [address] [facility] [id number] [place] [address]- 2734 Apr, [facility] [place] [facility] [address] [facility] [id number] [place] [address]- 9972 Mar, [facility] [place] [facility] [address] [facility] [id number] [place] [address]- 4650 Mar, [facility] [place] [facility] [address] [facility] [id number] [place] [address]- 8573 Mar, [facility] [place] [facility] [address] [facility] [id number] [place] [address]- 7556 Mar, [facility] [place] [facility] [address] [facility] [id number] [place] [address]- 2709 Nov, [facility] [place] [facility] [address] [id number] [place] [address]- 6051 Nov, [facility] [place] [facility] [address] [id number] [place] [address]- 4601 Nov, [facility] [place] [facility] [address] [id number] [place] [address]- 9858 Nov, [facility] [place] [facility] [address] [id number] [place] [address]- 3921 Oct, [facility] [place] [facility] [address] [id number] [place] [address]- 6427 Oct, [facility] [place] [facility] [address] [id number] [place] [address]- 1796 Oct, [facility] [place] [facility] [address] [id number] [place] [address]- 1284 Oct, [facility] [place] [facility] [address] [id number] [place] [address]- 9664 Oct, [facility] [place] [facility] [address] [id number] [place] [address]- 4446 Oct, [facility] [place] [facility] [address] [id number] [place] [address]- 5673 Oct, [facility] [place] [facility] [address] [id number] [place] [address]- 6372 Oct, [facility] [place] [facility] [address] [id number] [place] [address] Oct, [facility] [place] [facility] [address] [id number] [place] [address] Oct, [facility] [place] [facility] [address] [id number] [place] [address] September, [facility] [place] [facility] [address] [id number] [place] [address] September, [facility] [place] [facility] [address] [id number] [place] [address] Aug, [facility] [place] [facility] [address] [id number] [place] [address] Aug, [facility] [place] [facility] [address] [id number] [place] [address] Aug, [facility] [place] [facility] [address] [id number] [place] [address] Aug, [facility] [place] [facility] [address] [id number] [place] [address] Aug, [facility] [place] [facility] [address] [id number] [place] [address] Aug, [facility] [place] [facility] [address] [id number] [place] [address] Jul, [facility] [place] [facility] [address] [id number] [place] [address] Jul, [facility] [place] [facility] [address] [id number] [place] [address] Jul, [facility] [place] [facility] [address] [id number] [place] [address] Jul, [facility] [place] [facility] [address] [id number] [place] [address] Jul, [facility] [place] [facility] [address] [address] [id number] [place] [address] Jul, [facility] [place] [facility] [address] [id number] [place] [address] Jul, [facility] [place] [facility] [address] [id number] [place] [address] Jul, [facility] [place] [facility] [address] [id number] [place] [address] Jul, [facility] [place] [facility] [address] [id number] [place] [address] Jul, [facility] [place] [facility] [address] [id number] [place] [address] 21 Jul, 2013 [facility] [place] [facility] [address] [id number] [place] [address] Jul, [facility] [place] [facility] [address] [id number] [place] [address] 19 Jul, 2013 [facility] [place] [facility] [address] [id number] [place] [address] 14 Jul, 2013 [facility] [place] [facility] [address] [id number] [place] [address] 14 Jul, 2013 [facility] [place] [facility] [address] [id number] [place] [address] Jul, [facility] [place] [facility] [address] [id number] [place] [address] Jun, [facility] [place] [facility] [address] [facility] [id number] [place] [address] Jun, [facility] [place] [facility] [address] [id number] [place] [address] 24 Jun, 2013 [facility] [place] [facility] [address] [facility] [id number] [place] [address] Jun, [facility] [place] [facility] [address] [facility] [id number] [place] [address] Jun, [facility] [place] [facility] [address] [facility] [id number] [place] [address] 32[address] Jun, [facility] [place] [facility] [address] [id number] [place] [address] 4[address] Jun, [facility] [place] [facility] [address] [id number] [place] [address] 99[address] Jun, [facility] [place] [facility] [address] [facility] [id number] [place] [address] Jun, [facility] [place] [facility] [address] [facility] [id number] [place] [address] 20 Jun, 2013 [facility] [place] [facility] [address] [facility] [id number] [place] [address] 4746 18 Jun, 2013 [facility] [place] [facility] [address] [facility] [id number] [place] [address]- 57[address] 18 Jun, 2013 [facility] [place] [facility] [address] [facility] [id number] [place] [address]- 95[address] 14 Jun, 2013 [facility] [place] [facility] [address] [facility] [id number] [place] [address]- 6671 13 Jun, 2013 [facility] [place] [facility] [address] [facility] [id number] [place] [address]- 4916 13 Jun, 2013 [facility] [place] [facility] [address] [facility] [id number] [place] [address]- 9700 13 Jun, 2013 [facility] [place] [facility] [address] [facility] [id number] [place] [address]- 7989 13 Jun, 2013 [facility] [place] [facility] [address] [facility] [id number] [place] [address]- 8156 12 Jun, 2013 [facility] [place] [facility] [address] [facility] [id number] [place] [address]- 64[address] 12 Jun, 2013 [facility] [place] [facility] [address] [facility] [id number] [place] [address]- 1612 11 Jun, 2013 [facility] [place] [facility] [address] [facility] [id number] [place] [address]- 4866 11 Jun, 2013 [facility] [place] [facility] [address] [facility] [id number] [place] [address]- 0708 10 Jun, 2013 [facility] [place] [facility] [address] [facility] [id number] [place] [address]- 2861 07 Jun, 2013 [facility] [place] [facility] [address] [facility] [id number] [place] [address] 3462 07 Jun, 2013 [facility] [place] [facility] [address] [facility] [id number] [place] [address] 8810 Jun, [facility] [place] [facility] [address] [id number] [place] [address] 9794 Jun, [facility] [place] [facility] [address] [id number] [place] [address] Jun, [facility] [place] [facility] [address] [id number] [place] [address]- 5[address] Jun, [facility] [place] [facility] [address] [id number] [place] [address] 8003 Jun, [facility] [place] [facility] [address] [id number] [place] [address] 3610 Jun, [facility] [place] [facility] [address] [id number] [place] [address]- 68[address] May, [facility] [place] [facility] [address] [id number] [place] [address]- 76[address] May, [facility] [place] [facility] [address] [id number] [place] [address]- 1471 May, [facility] [place] [facility] [address] [id number] [place] [address]- 2376 May, [facility] [place] [facility] [address] [id number] [place] [address]- [address]275 May, [facility] [place] [facility] [address] [id number] [place] [address]- 1102 May, [facility] [place] [facility] [address] [id number] [place] [address] 53[address] May, [facility] [place] [facility] [address] [id number] [place] [address]98 May, [facility] [place] [facility] [address] [id number] [place] [address]- 1734 May, [facility] [place] [facility] [address] [id number] [place] [address]- 1305 May, [facility] [place] [facility] [id number] [address] May, [facility] [address] [facility] [id number] [address] May, [facility] [id number] [address] May, [facility] [id number] [address] May, [facility] [address] [facility] [id number] [address] 1437 May, [facility] [id number] [address] Apr, [facility] [id number] [address] Apr, [facility] [id number] [address] Dec, [facility] [id number] [address] Nov, [facility] [id number] [address] May, [facility] [id number] [address]- [address] Apr, [facility] [id number] [address] Apr, [facility] [id number] [address] Apr, [facility] [id number] [address] Apr, IMMUNIZATIONS No Known Immunizations SOCIAL HISTORY Never Assessed REASON FOR VISIT BS f/u PLAN OF CARE VITAL SIGNS MEDICATIONS Medication Instructions Dosage Frequency Start Date End Date Duration Status NovoLog Flexpen 100 UNIT/ML Subcutaneous 3 times a day 40 units 8h 07 Dec, 2014 Active RESULTS No Results PROCEDURES No Known procedures INSTRUCTIONS MEDICATIONS ADMINISTERED No Known Medications MEDICAL (GENERAL) HISTORY Type Description Date Medical History asthma Medical History type II diabetes Medical History sleep apnea Medical History narcolepsy Surgical History hysterectomy, partial Hospitalization History Chest pain-[facility] 02/27/17
--- OUTSIDE RECORDS SUMMARY | 2018-03-08 22:46 | XMS REPORT ---
Author Author RENAY HICKS [facility] Address [address] [place] [address] Care Team Providers Care Heating Technician Name Role Phone HICKSCYNTHIAAN Unavailable PROBLEMS Type Condition ICD9-CM Code XRQ07-CD Code Onset Dates Condition Status SNOMED Code Problem Right carpal tunnel syndrome G56.01 Active 06321713 Problem Gastroesophageal reflux disease with esophagitis K21.0 Active 201531287 Problem Falls frequently R29.6 Active 056935791 Problem Porokeratosis Q82.8 Active 036313753 Problem Posterior subcapsular age-related cataract of both eyes H25.043 Active 6502862 Problem Non-alcoholic fatty liver disease K76.0 Active 918403355 Problem Delayed gastric emptying K30 Active 749698041 Problem Pain in left foot M79.672 Active 0362436 Problem Other chronic pain G89.29 Active 13484566 Problem Tarsal tunnel syndrome of left side G57.52 Active 33344412 Problem Obesity E66.9 Active 215796028 Problem Hypermetropia, bilateral H52.03 Active 92980436 Problem Type 2 diabetes mellitus with hyperglycemia E11.65 Active 45119740 Problem Nuclear cataract of both eyes H25.13 Active 62492979 Problem Presbyopia OU H52.4 Active 02119334 Problem Obstructive sleep apnea G47.33 Active 96508614 Problem Shortness of breath R06.02 Active 756425186 Problem Type 2 diabetes mellitus with diabetic polyneuropathy E11.42 Active 86124984 Problem Lung nodule R91.1 Active 695743758 Problem Mixed hyperlipidemia E78.2 Active 905869244 Problem Primary narcolepsy with cataplexy G47.411 Active 332100271 ALLERGIES No Information ENCOUNTERS Encounter Location Date Diagnosis [facility] [address] [facility] [id number] [address] Feb, [facility] [id number] [place] [address] 19012- 7785 Jan, Type 2 diabetes mellitus with hyperglycemia E11.65 [facility] [id number] [place] [address] 10658- 2180 Jan, Type 2 diabetes mellitus with hyperglycemia E11.65 [facility] [id number] [place] [address] 15907- 1623 Dec, Chest pain on breathing R07.1 [facility] [id number] [place] [address] 66946 -7981 Dec, Chest pain on breathing R07.1 [facility] [id number] [place] [address] 56321- 9839 Dec, Well woman exam Z01.419 ; Screening for breast cancer Z12.31 and Screening for colon cancer Z12.11 [facility] [id number] [place] [address] 30162- 9780 Dec, [facility] [id number] [place] [address] 03498- 7625 Dec, Type 2 diabetes mellitus with hyperglycemia E11.65 ; Mixed hyperlipidemia E78.2 and Gastroesophageal reflux disease with esophagitis K21.0 [facility] [id number] [place] [address] 95404- 3140 Nov, Type 2 diabetes mellitus with hyperglycemia E11.65 and Mixed hyperlipidemia E78.2 [facility] [id number] [place] [address] 97177- 3588 Nov, [facility] [id number] [place] [address] 62525- 1828 Oct, Back muscle spasm M62.830 and Bilateral low back pain without sciatica M54.5 [facility] [id number] [place] [address] 15874- 8955 Oct, [facility] [id number] [place] [address] 75032- 7495 September, [facility] [place] [address] [place] [address] 8309 September, Type 2 diabetes mellitus with hyperglycemia E11.65 [facility] [address] 74088- 2467 September, Type 2 diabetes mellitus with hyperglycemia E11.65 [facility] [address] 43568- 8047 September, Porokeratosis Q82.8 and Type 2 diabetes mellitus with diabetic polyneuropathy E11.42 [facility] [id number] [place] [address] 57205 -5082 Aug, Seasonal allergic rhinitis, unspecified trigger J30.2 [facility] [place] [address] 76893- 5835 Aug, [facility] [address] 74470- 8841 Aug, Bilateral low back pain without sciatica M54.5 [facility] [address] [id number] Aug, Dental examination V72.2 and Dental examination Z01.20 [place] [address] 29244- 6324 Aug, Dental examination Z01.20 and Dental caries K02.9 [facility] [address] 90631- 2064 Aug, Obstructive sleep apnea G47.33 ; Obesity E66.9 ; Type 2 diabetes mellitus with hyperglycemia E11.65 ; Palpitations R00.2 and Corns and callosities L84 [place] [address] 79982- 8379 Jul, [facility] [place] [address] 33944- 3903 Jul, [facility] [address] 76093- 5230 20 Feb, 2018 Type 2 diabetes mellitus with hyperglycemia E11.65 ; Colon cancer screening Z12.11 ; Mixed hyperlipidemia E78.2 ; Non-alcoholic fatty liver disease K76.0 ; Gastroesophageal reflux disease with esophagitis K21.0 and Pain of upper abdomen R10.10 [facility] [id number] [place] [address] 10021- 8817 09 Jun, 2017 Falls frequently R29.6 [facility] [address] 56261 -0554 May, Infection of nose J34.89 [facility] [address] 99473- 1768 May, Bilateral low back pain without sciatica M54.5 [facility] [address] 34558- 6380 May, Type 2 diabetes mellitus with diabetic polyneuropathy E11.42 ; Obstructive sleep apnea G47.33 and Type 2 diabetes mellitus with hyperglycemia E11.65 [facility] [address] 05662- 8433 Apr, Bilateral low back pain without sciatica M54.5 [facility] [address] 55607- 1221 Apr, Mixed hyperlipidemia E78.2 and Type 2 diabetes mellitus with hyperglycemia E11.65 [facility] [id number] [place] [address] 08887- 1872 Apr, Type 2 diabetes mellitus with diabetic polyneuropathy E11.42 [facility] [id number] [place] [address] 65347- 9243 Apr, [facility] [address] 30674- 4186 Apr, Skin lesion of left arm L98.9 and Skin lesion of left leg L98.9 [facility] [address] 02205- 0893 Mar, Bilateral low back pain without sciatica M54.5 [facility] [id number] [place] [address] 31104- 0155 Mar, Plantar fasciitis of left foot M72.2 ; Bursitis of left foot M71.572 and Type 2 diabetes mellitus with diabetic polyneuropathy E11.42 [facility] [id number] [place] [address] 61403- 8790 Feb, Non-alcoholic fatty liver disease K76.0 ; Keratoacanthoma L85.8 ; Seborrheic keratosis L82.1 ; Type 2 diabetes mellitus with hyperglycemia E11.65 and Nuclear cataract of both eyes H25.13 [facility] [address] [id number] Feb, [facility] [id number] [place] [address] 64111- 9044 Feb, [place] [address] 09291- 1398 Feb, [facility] [address] 43323- 9473 Feb, Type 2 diabetes mellitus with hyperglycemia E11.65 ; Back muscle spasm M62.830 and Encounter for immunization Z23 [facility] [id number] [place] [address] 33111- 7891 Jan, Plantar fasciitis of left foot M72.2 [facility] [id number] [place] [address] 81389- 7621 Dec, [facility] [id number] [place] [address] 59553- 8124 Dec, Plantar fasciitis of left foot M72.2 and Tarsal tunnel syndrome of left side G57.52 [facility] [address] 36390- 2999 Dec, [facility] [id number] [place] [address] 45295 -8049 Nov, Mary Jane rash of groin B37.89 and Rash and nonspecific skin eruption R21 [facility] [id number] [place] [address] 70625- 9921 Nov, [facility] [id number] [place] [address] 08180- 4225 Oct, Type 2 diabetes mellitus with hyperglycemia E11.65 and Mixed hyperlipidemia E78.2 [facility] [address] 03186- 6892 Oct, [facility] [id number] [place] [address] 59092- 0159 Oct, Chest pain, unspecified R07.9 ; Palpitations R00.2 ; Syncope R55 and Mixed hyperlipidemia E78.2 [facility] [id number] [place] [address] 01561- 0195 Oct, Plantar fasciitis, bilateral M72.2 and Type 1 diabetes mellitus with diabetic neuropathy E10.40 [facility] [id number] [place] [address] 74367- 5479 Oct, [facility] [id number] [place] [address] 76013- 1089 September, Type 2 diabetes mellitus with hyperglycemia E11.65 [facility] [id number] [place] [address] 89093- 4008 September, Type 2 diabetes mellitus with hyperglycemia E11.65 ; Type 2 diabetes mellitus with diabetic polyneuropathy E11.42 ; Gastroesophageal reflux disease with esophagitis K21.0 and Headache, unspecified headache type R51 [facility] [id number] [place] [address] 61069- 5551 September, [facility] [id number] [place] [address] 36356- 0226 September, [facility] [id number] [place] [address] 85882- 2005 September, [facility] [id number] [place] [address] 72301- 8815 September, Other chest pain R07.89 ; Heart palpitations R00.2 ; Mixed hyperlipidemia E78.2 and Obesity E66.9 [facility] [address] [address]- 8291 Aug, [facility] [id number] [place] [address] 04230- 3536 Aug, Type 2 diabetes mellitus with diabetic polyneuropathy E11.42 and Type 2 diabetes mellitus with hyperglycemia E11.65 [facility] [id number] [address]- 1773 Aug, [facility] [id number] [place] [address] 98811- 6216 Aug, [facility] [id number] [place] [address] 82860- 8631 Aug, [facility] [id number] [place] [address] 95434- 1526 Aug, Type 2 diabetes mellitus with hyperglycemia E11.65 [facility] [address] [address]- 7671 Aug, [facility] [id number] [place] [address] 87312- 3707 Jul, Type 2 diabetes mellitus with diabetic polyneuropathy E11.42 [facility] [address] [address]- 1240 Jul, Type 2 diabetes mellitus with hyperglycemia E11.65 [facility] [address] [address]- 9970 Jul, [facility] [id number] [address]- 5358 Jul, [facility] [address] [address]- 7516 Jul, [facility] [address] [address]- 4783 Jul, Type 2 diabetes mellitus with diabetic polyneuropathy E11.42 and Type 2 diabetes mellitus with hyperglycemia E11.65 [facility] [id number] [place] [address] 68392- 0765 Jun, Obstructive sleep apnea G47.33 [facility] [id number] [place] [address] 11737- 1898 Jun, Type 2 diabetes mellitus with diabetic polyneuropathy E11.42 ; Primary narcolepsy with cataplexy G47.411 ; Abdominal bloating R14.0 ; Other chest pain R07.89 and Vision problems H54.7 [facility] [id number] [place] [address] 60958- 0478 Jun, [facility] [address] 32264- 9536 May, [facility] [address] 63843- 0860 Apr, [facility] [address] 00605- 3197 Apr, Plantar fasciitis of left foot M72.2 [facility] [address] 75389- 3162 Mar, [facility] [address] 02230- 2996 Mar, Plantar fasciitis of left foot M72.2 and Type 2 diabetes mellitus with diabetic polyneuropathy E11.42 [facility] [id number] [place] [address] 25725- 3495 Feb, Type 2 diabetes mellitus with hyperglycemia E11.65 ; Mixed hyperlipidemia E78.2 and Encounter for immunization Z23 [facility] [address] 72689- 5742 Feb, [facility] [address] 40569- 2664 Feb, [facility] [address] [place] [address]- 4959 Feb, Type 2 diabetes mellitus with hyperglycemia E11.65 [facility] [id number] [place] [address] 63412- 9305 Feb, Type 2 diabetes mellitus with hyperglycemia E11.65 [facility] [id number] [place] [address] 39406- 5023 Jan, [facility] [id number] [place] [address] 44309- 3762 Dec, Pain in left foot M79.672 ; Other chronic pain G89.29 ; Type 2 diabetes mellitus with hyperglycemia E11.65 ; Obstructive sleep apnea G47.33 ; Falls frequently R29.6 ; Mixed hyperlipidemia E78.2 and Gastroesophageal reflux disease with esophagitis K21.0 [facility] [id number] [place] [address] 66453- 4298 Nov, [facility] [id number] [place] [address] 33603- 1169 Oct, Type 2 diabetes mellitus with diabetic polyneuropathy E11.42 [facility] [address] [place] [address] 24846- 3327 Oct, [facility] [id number] [place] [address] 91871- 8074 Oct, [facility] [address] [address]- 1750 September, [facility] [id number] [place] [address] 00658- 6345 September, [facility] [address] [place] [address] 17324- 2462 September, [facility] [address] [place] [address] 40030- 2029 September, [facility] [address] [address]- 8653 September, [facility] [address] [address]- 1016 Aug, Type 2 diabetes mellitus with hyperglycemia E11.65 ; Mixed hyperlipidemia E78.2 and Right carpal tunnel syndrome G56.01 [facility] [address] [address]- 4663 Aug, [facility] [id number] [place] [address] 76225- 2533 Jul, [facility] [id number] [place] [address] 43849- 9646 Jun, [facility] [id number] [place] [address] 15073- 1282 Jun, [facility] [id number] [place] [address] 53832- 1286 May, [facility] [id number] [place] [address] 22647- 4908 May, [facility] [address] [place] [address] 50037- 4020 May, Type 2 diabetes mellitus with hyperglycemia E11.65 and Falls E888.9 [facility] [address] [address]- 6277 Apr, Type 2 diabetes mellitus with hyperglycemia E11.65 [facility] [address] [address]- 0076 Apr, [facility] [id number] [place] [address] 48990- 9457 Apr, Type 2 diabetes mellitus with hyperglycemia E11.65 [facility] [id number] [place] [address] 88288- 5066 Apr, [facility] [address] [place] [address] 56168- 0694 Mar, Type 2 diabetes mellitus with diabetic polyneuropathy E11.42 ; Bilateral low back pain without sciatica M54.5 and Dry nose J34.89 [facility] [address] [place] [address] 42655- 8394 Mar, Palpitations R00.2 ; Syncope R55 ; DM (diabetes mellitus) E11.9 and Obesity E66.9 [facility] [address] [place] [address] 16808- 7806 Mar, [facility] [address] 98400- 5128 Mar, [facility] [id number] [place] [address] 48034- 2869 Mar, [facility] [address] 53057- 7146 Feb, [facility] [id number] [place] [address] 68457- 1302 Jan, [facility] [address] 74204- 0524 Jan, [facility] [id number] [place] [address] 80735- 8295 Jan, Falls E888.9 and Sinusitis 473.9 [facility] [id number] [place] [address] 02541- 6425 Dec, [facility] [id number] [place] [address] 16618- 4097 Dec, [facility] [id number] [place] [address] 71093- 2691 Dec, [facility] [id number] [place] [address] 70096- 0532 Dec, [facility] [id number] [place] [address] 35917- 9570 Dec, Diabetes mellitus without mention of complication, type II or unspecified type, not stated as uncontrolled 250.00 and Shortness of breath 786.05 [facility] [id number] [place] [address] 95819- 0088 Dec, [facility] [address] [address]- 3471 Nov, [facility] [id number] [place] [address] 439466- 1432 Nov, [facility] [id number] [place] [address] 10538- 6012 Oct, Restrictive lung disease 518.89 [facility] [id number] [place] [address] 45290- 9711 Oct, [facility] [id number] [place] [address] 41170- 3850 Oct, Shortness of breath 786.05 [facility] [address] [place] [address] 91711- 3893 September, Other nonspecific abnormal finding of lung field 793.19 ; Diabetes mellitus without mention of complication, type II or unspecified type, not stated as uncontrolled 250.00 ; Hyperlipidemia LDL goal < 100 272.4 ; Narcolepsy, with cataplexy 347.01 ; Shortness of breath 786.05 and Chest pain 786.50 [facility] [id number] [place] [address] 36805- 7131 Aug, [facility] [id number] [place] [address] 44259- 5112 Aug, [facility] [id number] [place] [address] 38799- 2191 Jun, [facility] [id number] [place] [address] 88897- 6469 Jun, [facility] [id number] [place] [address] 11382- 2187 Jun, [facility] [id number] [place] [address] 89159- 1675 Jun, [facility] [id number] [place] [address] [place] [address]- 5016 Jun, 2014 [facility] [place] [facility] [address] [id number] [place] [address]- 0061 Jun, 2014 [facility] [place] [facility] [address] [id number] [place] [address]- 3780 Jun, 2014 [facility] [place] [facility] [address] [id number] [place] [address]- 0825 Jun, 2014 [facility] [place] [facility] [address] [id number] [place] [address]- 4217 May, [facility] [place] [facility] [address] [id number] [place] [address]- 9024 May, [facility] [place] [facility] [address] [id number] [place] [address]- 0453 Apr, [facility] [place] [facility] [address] [id number] [place] [address]- 6274 Apr, [facility] [place] [facility] [address] [id number] [place] [address]- 2928 Mar, [facility] [place] [facility] [address] [id number] [place] [address]- 0354 Mar, [facility] [place] [facility] [address] [id number] [place] [address]- 5943 Mar, [facility] [place] [facility] [address] [id number] [place] [address]- 0250 Mar, [facility] [place] [facility] [address] [id number] [place] [address]- 1068 Nov, [facility] [place] [facility] [address] [id number] [place] [address]- 6644 Nov, [facility] [place] [facility] [address] [id number] [place] [address]- 8897 Nov, [facility] [place] [facility] [address] [id number] [place] [address]- 8434 Nov, [facility] [place] [facility] [address] [id number] [place] [address]- 6171 Oct, [facility] [place] [facility] [address] [id number] [place] [address]- 8144 Oct, [facility] [place] [facility] [address] [id number] [place] [address] Oct, [facility] [place] [facility] [address] [id number] [place] [address] Oct, [facility] [place] [facility] [address] [id number] [place] [address] Oct, [facility] [place] [facility] [address] [id number] [place] [address] Oct, [facility] [place] [facility] [address] [id number] [place] [address] Oct, [facility] [place] [facility] [address] [id number] [place] [address] Oct, [facility] [place] [facility] [address] [id number] [place] [address] Oct, [facility] [place] [facility] [address] [id number] [place] [address] Oct, [facility] [place] [facility] [address] [id number] [place] [address] September, [facility] [place] [facility] [address] [id number] [place] [address] September, [facility] [place] [facility] [address] [id number] [place] [address] Aug, [facility] [place] [facility] [address] [id number] [place] [address] Aug, [facility] [place] [facility] [address] [id number] [place] [address] Aug, [facility] [place] [facility] [address] [id number] [place] [address] Aug, [facility] [place] [facility] [address] [id number] [place] [address] Aug, [facility] [place] [facility] [address] [id number] [place] [address] Aug, [facility] [place] [facility] [address] [id number] [place] [address] Jul, [facility] [place] [facility] [address] [id number] [place] [address] Jul, [facility] [place] [facility] [address] [id number] [place] [address] Jul, [facility] [place] [facility] [address] [id number] [place] [address] Jul, [facility] [place] [facility] [address] [id number] [place] [address] Jul, [facility] [place] [facility] [address] [id number] [place] [address] Jul, [facility] [place] [facility] [address] [id number] [place] [address] Jul, [facility] [place] [facility] [address] [id number] [place] [address] Jul, [facility] [place] [facility] [address] [id number] [place] [address] Jul, [facility] [place] [facility] [address] [id number] [place] [address] Jul, [facility] [place] [facility] [address] [id number] [place] [address] Jul, [facility] [place] [facility] [address] [id number] [place] [address] Jul, [facility] [place] [facility] [address] [id number] [place] [address] Jul, [facility] [place] [facility] [address] [id number] [place] [address] 2017 14 Jul, 2013 [facility] [place] [facility] [address] [id number] [place] [address] 14 Jul, 2013 [facility] [place] [facility] [address] [id number] [place] [address] Jul, [facility] [place] [facility] [address] [id number] [place] [address] Jun, [facility] [place] [facility] [address] [id number] [place] [address] Jun, [facility] [place] [facility] [address] [id number] [place] [address] Jun, [facility] [place] [facility] [address] [id number] [place] [address] Jun, [facility] [place] [facility] [address] [id number] [place] [address] Jun, [facility] [place] [facility] [address] [id number] [place] [address] Jun, [facility] [place] [facility] [address] [id number] [place] [address] Jun, [facility] [place] [facility] [address] [id number] [place] [address] Jun, [facility] [place] [facility] [address] [id number] [place] [address] Jun, [facility] [place] [facility] [address] [id number] [place] [address] Jun, [facility] [place] [facility] [address] [id number] [place] [address] Jun, [facility] [place] [facility] [address] [id number] [place] [address] Jun, [facility] [place] [facility] [address] [id number] [place] [address] 14 Jun, 2013 [facility] [place] [facility] [address] [id number] [place] [address] 13 Jun, 2013 [facility] [place] [facility] [address] [id number] [place] [address] 13 Jun, 2013 [facility] [place] [facility] [address] [facility] [id number] [place] [address] 13 Jun, 2013 [facility] [place] [facility] [address] [id number] [place] [address] 13 Jun, 2013 [facility] [place] [facility] [address] [id number] [place] [address] 12 Jun, 2013 [facility] [place] [facility] [address] [facility] [id number] [place] [address] 12 Jun, 2013 [facility] [place] [facility] [address] [id number] [place] [address] Jun, 2013 [facility] [place] [facility] [address] [facility] [id number] [place] [address] 11 Jun, 2013 [facility] [place] [facility] [address] [facility] [id number] [place] [address] 10 Jun, 2013 [facility] [place] [facility] [address] [id number] [place] [address] 07 Jun, 2013 [facility] [place] [facility] [address] [facility] [id number] [place] [address] 07 Jun, 2013 [facility] [place] [facility] [address] [facility] [id number] [place] [address] 06 Jun, 2013 [facility] [place] [facility] [address] [facility] [id number] [place] [address] 06 Jun, 2013 [facility] [place] [facility] [address] [facility] [id number] [place] [address] 06 Jun, 2013 [facility] [place] [facility] [address] [facility] [id number] [place] [address] Jun, [facility] [place] [facility] [address] [id number] [place] [address] Jun, [facility] [place] [facility] [address] [id number] [place] [address] Jun, [facility] [place] [facility] [address] [id number] [place] [address] May, [facility] [place] [facility] [address] [id number] [place] [address] May, [facility] [place] [facility] [address] [id number] [place] [address] May, [facility] [place] [facility] [address] [id number] [place] [address] May, [facility] [place] [facility] [address] [id number] [place] [address] May, [facility] [place] [facility] [address] [id number] [place] [address] May, [facility] [place] [facility] [address] [id number] [place] [address] 46[address] May, [facility] [place] [facility] [address] [id number] [place] [address]- [address] May, [facility] [place] [facility] [address] [id number] [place] [address] May, [facility] [place] [facility] [address] [id number] [place] [address] May, [facility] [place] [facility] [address] [id number] [place] [address]140 May, [facility] [place] [facility] [address] [id number] [place] [address]- 1145 May, [facility] [place] [facility] [address] [id number] [place] [address] 12[address] May, [facility] [place] [facility] [address] [facility] [id number] [place] [address] May, [facility] [address] [id number] [address] May, [facility] [address] [facility] [id number] [place] [address] Apr, [facility] [address] [facility] [id number] [place] [address] Apr, [facility] [address] [facility] [id number] [place] [address] Dec, [facility] [id number] [address] Nov, [facility] [id number] [address] May, [facility] [id number] [address] Apr, [facility] [id number] [address] Apr, [facility] [id number] [address] Apr, [facility] [address] [id number] [address] Apr, IMMUNIZATIONS No Known Immunizations SOCIAL HISTORY Never Assessed REASON FOR VISIT PT follow-up PLAN OF CARE Activity Details Follow Up 3 Weeks Reason:F/U PT VITAL SIGNS MEDICATIONS Unknown Medications RESULTS No Results PROCEDURES Procedure Date Ordered Result Body Site THERAPEUTIC EXERCISES November 04, 2017 INSTRUCTIONS MEDICATIONS ADMINISTERED No Known Medications MEDICAL (GENERAL) HISTORY Type Description Date Medical History asthma Medical History type II diabetes Medical History sleep apnea Medical History narcolepsy Surgical History hysterectomy, partial Hospitalization History Chest pain-[facility] 02/27/17
--- OUTSIDE RECORDS SUMMARY | 2018-03-08 22:46 | XMS REPORT ---
Author Author JEFF BELTRÁN Organization [facility] Address [address] [place] [address] Care Team Providers Care Time Study Analyst Name Role Phone MARGIE BELTRÁNTA Unavailable PROBLEMS Type Condition ICD9-CM Code [id number] Code Onset Dates Condition Status SNOMED Code Problem Right carpal tunnel syndrome G56.01 Active 15214074 Problem Gastroesophageal reflux disease with esophagitis K21.0 Active 882519428 Problem Falls frequently R29.6 Active 714759475 Problem Porokeratosis Q82.8 Active 434553394 Problem Posterior subcapsular age-related cataract of both eyes H25.043 Active 9435089 Problem Non-alcoholic fatty liver disease K76.0 Active 442678193 Problem Delayed gastric emptying K30 Active 550981474 Problem Pain in left foot M79.672 Active 8278154 Problem Other chronic pain G89.29 Active 20334492 Problem Tarsal tunnel syndrome of left side G57.52 Active 65284929 Problem Obesity E66.9 Active 705327299 Problem Hypermetropia, bilateral H52.03 Active 16536326 Problem Type 2 diabetes mellitus with hyperglycemia E11.65 Active 71436624 Problem Nuclear cataract of both eyes H25.13 Active 33134053 Problem Presbyopia OU H52.4 Active 93011027 Problem Obstructive sleep apnea G47.33 Active 92056358 Problem Shortness of breath R06.02 Active 139876333 Problem Type 2 diabetes mellitus with diabetic polyneuropathy E11.42 Active 64709555 Problem Lung nodule R91.1 Active 437510147 Problem Mixed hyperlipidemia E78.2 Active 089562534 Problem Primary narcolepsy with cataplexy G47.411 Active 123398006 ALLERGIES No Information ENCOUNTERS Encounter Location Date Diagnosis [facility] [id number], [place] [address] Feb, Type 2 diabetes mellitus with hyperglycemia E11.65 [facility] [id number] [place] [address] 56988- 0923 Feb, Viral upper respiratory tract infection J06.9 and Encounter for immunization Z23 [facility] [id number] [place] [address] 86530- 3277 Feb, [facility] [id number] [place] [address] 63629- 8741 Jan, Type 2 diabetes mellitus with hyperglycemia E11.65 [facility] [address] 70994- 4516 Jan, Type 2 diabetes mellitus with hyperglycemia E11.65 [facility] [address] 96646- 4837 Dec, Chest pain on breathing R07.1 [facility] [id number] [place] [address] 61429 -2165 Dec, Chest pain on breathing R07.1 [facility] [address] 48134- 6901 Dec, Well woman exam Z01.419 ; Screening for breast cancer Z12.31 and Screening for colon cancer Z12.11 [facility] [id number] [place] [address] 28715- 0534 Dec, [facility] [id number] [place] [address] 27567- 5998 Dec, Type 2 diabetes mellitus with hyperglycemia E11.65 ; Mixed hyperlipidemia E78.2 and Gastroesophageal reflux disease with esophagitis K21.0 [facility] [id number] [place] [address] 81893- 7654 Nov, Type 2 diabetes mellitus with hyperglycemia E11.65 and Mixed hyperlipidemia E78.2 [facility] [id number] [place] [address] 10901- 2681 Nov, [facility] [id number] [place] [address] 59540- 6403 Oct, Back muscle spasm M62.830 and Bilateral low back pain without sciatica M54.5 [facility] [id number] [place] [address] 31362- 7220 Oct, [facility] [address] 79041- 4298 September, [facility] [address] 03151- 7665 September, Type 2 diabetes mellitus with hyperglycemia E11.65 [facility] [id number] [place] [address] 05028- 6329 September, Type 2 diabetes mellitus with hyperglycemia E11.65 [facility] [address] 63405- 6220 September, Porokeratosis Q82.8 and Type 2 diabetes mellitus with diabetic polyneuropathy E11.42 [facility] [address] 91129 -5346 Aug, Seasonal allergic rhinitis, unspecified trigger J30.2 [facility] [id number] [place] [address] 55441- 2567 Aug, [facility] [address] 52490- 6485 Aug, Bilateral low back pain without sciatica M54.5 [facility] [address] [id number] Aug, Dental examination V72.2 and Dental examination Z01.20 [facility] [id number] [place] [address] 76467- 3232 Aug, Dental examination Z01.20 and Dental caries K02.9 [facility] [id number] [place] [address] 68753- 0495 Aug, Obstructive sleep apnea G47.33 ; Obesity E66.9 ; Type 2 diabetes mellitus with hyperglycemia E11.65 ; Palpitations R00.2 and Corns and callosities L84 [facility] [address] [place] [address] 8605 Jul, [facility] [id number] [place] [address] 48422- 1725 Jul, [facility] [id number] [place] [address] 87363- 4072 Jun, Type 2 diabetes mellitus with hyperglycemia E11.65 ; Colon cancer screening Z12.11 ; Mixed hyperlipidemia E78.2 ; Non-alcoholic fatty liver disease K76.0 ; Gastroesophageal reflux disease with esophagitis K21.0 and Pain of upper abdomen R10.10 [facility] [id number] [place] [address] 88507- 7483 09 Jun, 2017 Falls frequently R29.6 [facility] [id number] [place] [address] 98806 -3535 May, Infection of nose J34.89 [facility] [id number] [place] [address] 94660- 2514 May, Bilateral low back pain without sciatica M54.5 [facility] [id number] [place] [address] 88740- 8690 May, Type 2 diabetes mellitus with diabetic polyneuropathy E11.42 ; Obstructive sleep apnea G47.33 and Type 2 diabetes mellitus with hyperglycemia E11.65 [facility] [address] [place] [address] 84419- 6292 Apr, Bilateral low back pain without sciatica M54.5 [facility] [id number] [place] [address] 17412- 2985 Apr, Mixed hyperlipidemia E78.2 and Type 2 diabetes mellitus with hyperglycemia E11.65 [facility] [id number] [place] [address] 87735- 1554 Apr, Type 2 diabetes mellitus with diabetic polyneuropathy E11.42 [facility] [address] [place] [address] 35794- 1596 Apr, [facility] [id number] [place] [address] 73671- 2267 Apr, Skin lesion of left arm L98.9 and Skin lesion of left leg L98.9 [facility] [address] 12741- 1886 Mar, Bilateral low back pain without sciatica M54.5 [facility] [address] 01257- 5711 Mar, Plantar fasciitis of left foot M72.2 ; Bursitis of left foot M71.572 and Type 2 diabetes mellitus with diabetic polyneuropathy E11.42 [facility] [address] 54302- 4775 Feb, Non-alcoholic fatty liver disease K76.0 ; Keratoacanthoma L85.8 ; Seborrheic keratosis L82.1 ; Type 2 diabetes mellitus with hyperglycemia E11.65 and Nuclear cataract of both eyes H25.13 [facility] [address] [id number] Feb, [facility] [address] 66133- 6683 Feb, [facility] [address] 96371- 7519 Feb, [facility] [address] 38381- 9080 Feb, Type 2 diabetes mellitus with hyperglycemia E11.65 ; Back muscle spasm M62.830 and Encounter for immunization Z23 [facility] [id number] [place] [address] 56281- 6764 Jan, Plantar fasciitis of left foot M72.2 [facility] [address] 49685- 6790 Dec, [facility] [address] 89608- 7430 Dec, Plantar fasciitis of left foot M72.2 and Tarsal tunnel syndrome of left side G57.52 [facility] [id number] [place] [address] 69168- 8553 Dec, [facility] [id number] [place] [address] 47207 -7486 Nov, Mary Jane rash of groin B37.89 and Rash and nonspecific skin eruption R21 [facility] [address] 66714- 2325 Nov, [facility] [id number] [place] [address] 98393- 4657 Oct, Type 2 diabetes mellitus with hyperglycemia E11.65 and Mixed hyperlipidemia E78.2 [facility] [id number] [place] [address] 81865- 2361 Oct, [facility] [address] 40988- 0858 Oct, Chest pain, unspecified R07.9 ; Palpitations R00.2 ; Syncope R55 and Mixed hyperlipidemia E78.2 [facility] [id number] [place] [address] 71596- 0417 Oct, Plantar fasciitis, bilateral M72.2 and Type 1 diabetes mellitus with diabetic neuropathy E10.40 [facility] [id number] [place] [address] 75834- 9689 Oct, [facility] [id number] [place] [address] 11142- 9227 September, Type 2 diabetes mellitus with hyperglycemia E11.65 [facility] [id number] [place] [address] 76182- 6754 September, Type 2 diabetes mellitus with hyperglycemia E11.65 ; Type 2 diabetes mellitus with diabetic polyneuropathy E11.42 ; Gastroesophageal reflux disease with esophagitis K21.0 and Headache, unspecified headache type R51 [facility] [id number] [place] [address] 73125- 7808 September, [facility] [address], [place] [address]- 9330 September, [facility] [id number] [address]- 6515 September, [facility] [address], [place] [address]- 8296 September, Other chest pain R07.89 ; Heart palpitations R00.2 ; Mixed hyperlipidemia E78.2 and Obesity E66.9 [facility] [address], [place] [address]- 8328 Aug, [facility] [id number] [place] [address] 93344- 8462 Aug, Type 2 diabetes mellitus with diabetic polyneuropathy E11.42 and Type 2 diabetes mellitus with hyperglycemia E11.65 [facility] [address], [place] [address]- 8993 Aug, [facility] [address], [place] [address]- 0860 Aug, [facility] [address], [place] [address]- 9777 Aug, [facility] [address], [place] [address]- 3194 Aug, Type 2 diabetes mellitus with hyperglycemia E11.65 [facility] [address], [place] [address]- 6374 Aug, [facility] [address], [place] [address]- 2298 Jul, Type 2 diabetes mellitus with diabetic polyneuropathy E11.42 [facility] [address], [place] [address]- 4815 Jul, Type 2 diabetes mellitus with hyperglycemia E11.65 [facility] [address], [place] [address]- 3224 Jul, [facility] [id number] [place] [address] 40386- 9043 Jul, [facility] [id number] [place] [address] 10442- 4911 Jul, [facility] [id number] [place] [address] 43383- 9243 Jul, Type 2 diabetes mellitus with diabetic polyneuropathy E11.42 and Type 2 diabetes mellitus with hyperglycemia E11.65 [facility] [id number] [place] [address] 64134- 7445 Jun, Obstructive sleep apnea G47.33 [facility] [id number] [place] [address] 00968- 9244 Jun, Type 2 diabetes mellitus with diabetic polyneuropathy E11.42 ; Primary narcolepsy with cataplexy G47.411 ; Abdominal bloating R14.0 ; Other chest pain R07.89 and Vision problems H54.7 [facility] [id number] [place] [address] 87220- 5175 Jun, [facility] [id number] [place] [address] 76175- 7176 May, [facility] [id number] [place] [address] 25653- 5272 Apr, [facility] [id number] [place] [address] 20928- 3475 Apr, Plantar fasciitis of left foot M72.2 [facility] [id number] [place] [address] 48772- 5956 Mar, [facility] [id number] [place] [address] 01516- 3047 Mar, Plantar fasciitis of left foot M72.2 and Type 2 diabetes mellitus with diabetic polyneuropathy E11.42 [facility] [id number] [place] [address] 83444- 8344 Feb, Type 2 diabetes mellitus with hyperglycemia E11.65 ; Mixed hyperlipidemia E78.2 and Encounter for immunization Z23 [facility] [id number] [place] [address] 23450- 5422 Feb, [facility] [id number] [place] [address] 68840- 2905 Feb, [facility] [id number] [place] [address] 21618- 2825 Feb, Type 2 diabetes mellitus with hyperglycemia E11.65 [facility] [id number] [place] [address] 09046- 0162 Feb, Type 2 diabetes mellitus with hyperglycemia E11.65 [facility] [id number] [place] [address] 65440- 6307 Jan, [facility] [id number] [place] [address] 72954- 5035 Dec, Pain in left foot M79.672 ; Other chronic pain G89.29 ; Type 2 diabetes mellitus with hyperglycemia E11.65 ; Obstructive sleep apnea G47.33 ; Falls frequently R29.6 ; Mixed hyperlipidemia E78.2 and Gastroesophageal reflux disease with esophagitis K21.0 [facility] [id number] [place] [address] 38426- 2583 Nov, [facility] [id number] [place] [address] 25258- 2260 Oct, Type 2 diabetes mellitus with diabetic polyneuropathy E11.42 [facility] [id number] [place] [address] 96427- 2494 Oct, [facility] [id number] [place] [address] 33972- 9850 Oct, [facility] [id number] [place] [address] 15996- 0636 September, [facility] [id number] [place] [address] 26470- 2567 September, [facility] [id number] [place] [address] [place] [address]- 5192 September, [facility] [address], [place] [address]- 6040 September, [facility] [address], [place] [address]- 7458 September, [facility] [address], [place] [address]- 2228 Aug, Type 2 diabetes mellitus with hyperglycemia E11.65 ; Mixed hyperlipidemia E78.2 and Right carpal tunnel syndrome G56.01 [facility] [address], [place] [address]- 7153 Aug, [facility] [address], [place] [address]- 8184 Jul, [facility] [address], [place] [address]- 8194 Jun, [facility] [address], [place] [address]- 6136 Jun, [facility] [address], [place] [address]- 1208 May, [facility] [address], [place] [address]- 4875 May, [facility] [address], [place] [address]- 9103 May, Type 2 diabetes mellitus with hyperglycemia E11.65 and Falls E888.9 [facility] [address], [place] [address]- 1148 Apr, Type 2 diabetes mellitus with hyperglycemia E11.65 [facility] [address], [place] [address]- 8485 Apr, [facility] [id number], [place] [address]- 6181 Apr, Type 2 diabetes mellitus with hyperglycemia E11.65 [facility] [id number] [place] [address] 52872- 4807 Apr, [facility] [address] 54280- 1370 Mar, Type 2 diabetes mellitus with diabetic polyneuropathy E11.42 ; Bilateral low back pain without sciatica M54.5 and Dry nose J34.89 [facility] [address] 61876- 3925 Mar, Palpitations R00.2 ; Syncope R55 ; DM (diabetes mellitus) E11.9 and Obesity E66.9 [facility] [address] 56091- 2630 Mar, [facility] [id number] [place] [address] 54716- 9887 Mar, [facility] [address] 44644- 9714 Mar, [facility] [id number] [place] [address] 53788- 7361 Feb, [facility] [id number] [place] [address] 67952- 9470 Jan, [facility] [id number] [place] [address] 22116- 7036 Jan, [facility] [id number] [place] [address] 26017- 3969 Jan, Falls E888.9 and Sinusitis 473.9 [facility] [id number] [place] [address] 85702- 6269 Dec, [facility] [id number] [place] [address] 28442- 4675 Dec, [facility] [id number] [place] [address] 61005- 3431 Dec, [facility] [id number] [place] [address] 38529- 1734 Dec, [facility] [id number] [place] [address] 13716- 4975 Dec, Diabetes mellitus without mention of complication, type II or unspecified type, not stated as uncontrolled 250.00 and Shortness of breath 786.05 [facility] [id number] [place] [address] 65524- 2239 Dec, [facility] [id number] [place] [address] 85433- 8763 Nov, [facility] [id number] [place] [address] 48249- 5053 Nov, [facility] [id number] [place] [address] 99577- 7544 Oct, Restrictive lung disease 518.89 [facility] [id number] [place] [address] 60746- 6411 Oct, [facility] [id number] [place] [address] 22518- 6648 Oct, Shortness of breath 786.05 [facility] [id number] [place] [address] 597854- 4469 September, Other nonspecific abnormal finding of lung field 793.19 ; Diabetes mellitus without mention of complication, type II or unspecified type, not stated as uncontrolled 250.00 ; Hyperlipidemia LDL goal < 100 272.4 ; Narcolepsy, with cataplexy 347.01 ; Shortness of breath 786.05 and Chest pain 786.50 [facility] [id number] [place] [address] 60746- 1997 Aug, [facility] [id number] [place] [address] 809632- 7559 Aug, [facility] [id number] [place] [address] 64121- 2867 Jun, [facility] [id number] [place] [address] 25105- 0070 Jun, 2014 [facility] [place] [facility] [address] [id number] [place] [address]- 3860 Jun, 2014 [facility] [place] [facility] [address] [id number] [place] [address]- 7572 Jun, 2014 [facility] [place] [facility] [address] [id number] [place] [address]- 5138 Jun, 2014 [facility] [place] [facility] [address] [id number] [place] [address]- 1358 Jun, 2014 [facility] [place] [facility] [address] [id number] [place] [address]- 7255 Jun, 2014 [facility] [place] [facility] [address] [id number] [place] [address]- 9492 Jun, 2014 [facility] [place] [facility] [address] [id number] [place] [address]- 5101 May, [facility] [place] [facility] [address] [id number] [place] [address]- 8890 May, [facility] [place] [facility] [address] [id number] [place] [address]- 6809 Apr, [facility] [place] [facility] [address] [id number] [place] [address]- 6392 Apr, [facility] [place] [facility] [address] [id number] [place] [address]- 6610 Mar, [facility] [place] [facility] [address] [id number] [place] [address]- 9441 Mar, [facility] [place] [facility] [address] [id number] [place] [address]- 1649 Mar, [facility] [place] [facility] [address] [facility] [id number] [place] [address]- 5238 Mar, [facility] [place] [facility] [address] [id number] [place] [address]- 2464 Nov, [facility] [place] [facility] [address] [id number] [place] [address]- 4902 Nov, [facility] [place] [facility] [address] [id number] [place] [address]- 8353 Nov, [facility] [place] [facility] [address] [id number] [place] [address]- 3463 Nov, [facility] [place] [facility] [address] [id number] [place] [address]- 4827 Oct, [facility] [place] [facility] [address] [id number] [place] [address]- 1997 Oct, [facility] [place] [facility] [address] [id number] [place] [address]- 0582 Oct, [facility] [place] [facility] [address] [id number] [place] [address]- 5885 Oct, [facility] [place] [facility] [address] [id number] [place] [address]- 9641 Oct, [facility] [place] [facility] [address] [id number] [place] [address]- 4958 Oct, [facility] [place] [facility] [address] [id number] [place] [address]- 3863 Oct, [facility] [place] [facility] [address] [id number] [place] [address]- 1337 Oct, [facility] [place] [facility] [address] [id number] [place] [address] Oct, [facility] [place] [facility] [address] [id number] [place] [address] Oct, [facility] [place] [facility] [address] [id number] [place] [address] September, [facility] [place] [facility] [address] [id number] [place] [address] September, [facility] [place] [facility] [address] [id number] [place] [address] Aug, [facility] [place] [facility] [address] [id number] [place] [address] Aug, [facility] [place] [facility] [address] [id number] [place] [address] Aug, [facility] [place] [facility] [address] [id number] [place] [address] Aug, [facility] [place] [facility] [address] [id number] [place] [address] Aug, [facility] [place] [facility] [address] [id number] [place] [address] Aug, [facility] [place] [facility] [address] [id number] [place] [address] Jul, [facility] [place] [facility] [address] [id number] [place] [address] Jul, [facility] [place] [facility] [address] [id number] [place] [address] Jul, [facility] [place] [facility] [address] [id number] [place] [address] Jul, [facility] [place] [facility] [address] [id number] [place] [address] Jul, [facility] [place] [facility] [address] [id number] [place] [address] Jul, [facility] [place] [facility] [address] [id number] [place] [address] Jul, [facility] [place] [facility] [address] [id number] [place] [address] Jul, [facility] [place] [facility] [address] [id number] [place] [address] Jul, [facility] [place] [facility] [address] [id number] [place] [address] Jul, [facility] [place] [facility] [address] [id number] [place] [address] 21 Jul, 2013 [facility] [place] [facility] [address] [id number] [place] [address] 19 Jul, 2013 [facility] [place] [facility] [address] [id number] [place] [address] 19 Jul, 2013 [facility] [place] [facility] [address] [id number] [place] [address] 14 Jul, 2013 [facility] [place] [facility] [address] [id number] [place] [address] 14 Jul, 2013 [facility] [place] [facility] [address] [id number] [place] [address] Jul, [facility] [place] [facility] [address] [id number] [place] [address] 25 Jun, 2013 [facility] [place] [facility] [address] [id number] [place] [address] 25 Jun, 2013 [facility] [place] [facility] [address] [id number] [place] [address] 24 Jun, 2013 [facility] [place] [facility] [address] [id number] [place] [address] Jun, [facility] [place] [facility] [address] [facility] [id number] [place] [address] Jun, [facility] [place] [facility] [address] [id number] [place] [address] Jun, [facility] [place] [facility] [address] [id number] [place] [address] Jun, [facility] [place] [facility] [address] [id number] [place] [address] Jun, [facility] [place] [facility] [address] [id number] [place] [address] Jun, [facility] [place] [facility] [address] [id number] [place] [address] 20 Jun, 2013 [facility] [place] [facility] [address] [id number] [place] [address] 18 Jun, 2013 [facility] [place] [facility] [address] [facility] [id number] [place] [address] 18 Jun, 2013 [facility] [place] [facility] [address] [facility] [id number] [place] [address] 14 Jun, 2013 [facility] [place] [facility] [address] [facility] [id number] [place] [address] 13 Jun, 2013 [facility] [place] [facility] [address] [id number] [place] [address]184 13 Jun, 2013 [facility] [place] [facility] [address] [facility] [id number] [place] [address]181 13 Jun, 2013 [facility] [place] [facility] [address] [facility] [id number] [place] [address] 13 Jun, 2013 [facility] [place] [facility] [address] [facility] [id number] [place] [address] 12 Jun, 2013 [facility] [place] [facility] [address] [facility] [id number] [place] [address] 12 Jun, 2013 [facility] [place] [facility] [address] [facility] [id number] [place] [address]- [address]166 11 Jun, 2013 [facility] [place] [facility] [address] [facility] [id number] [place] [address] 11 Jun, 2013 [facility] [place] [facility] [address] [facility] [id number] [place] [address] 9463 10 Jun, 2013 [facility] [place] [facility] [address] [facility] [id number] [place] [address] 07 Jun, 2013 [facility] [place] [facility] [address] [facility] [id number] [place] [address] 07 Jun, 2013 [facility] [place] [facility] [address] [facility] [id number] [place] [address] Jun, [facility] [place] [facility] [address] [id number] [place] [address] 7096 Jun, [facility] [place] [facility] [address] [id number] [place] [address] Jun, [facility] [place] [facility] [address] [id number] [place] [address]149 Jun, [facility] [place] [facility] [address] [id number] [place] [address] Jun, [facility] [place] [facility] [address] [id number] [place] [address] 407[address] Jun, [facility] [place] [facility] [address] [id number] [place] [address] May, [facility] [place] [facility] [address] [id number] [place] [address] 115[address] May, [facility] [place] [facility] [address] [id number] [place] [address] 1498 May, [facility] [place] [facility] [address] [id number] [place] [address] 4[address] May, [facility] [place] [facility] [address] [id number] [place] [address] May, [facility] [place] [facility] [address] [id number], [place] [address] May, [facility] [place] [facility] [address] [id number], [place] [address] May, [facility] [place] [facility] [address] [id number] [place] [address] 96[address] May, [facility] [place] [facility] [address] [id number] [place] [address] 8648 May, [facility] [place] [facility] [address] [id number] [place] [address] May, [facility] [place] [facility] [address] [id number], [place] [address] May, [facility] [address] [id number], [place] [address] May, [facility] [id number], [place] [address] May, [facility] [id number], [place] [address] May, [facility] [id number], [place] [address] May, [facility] [id number] [address] [address] Apr, [facility] [id number], [place] [address] Apr, [facility] [id number], [place] [address] Dec, [facility] [id number], [place] [address] Nov, [facility] [id number], [place] [address] May, [facility] [address] [id number], [place] [address] Apr, [facility] [address] [id number], [place] [address] Apr, [facility] [address] [id number], [place] [address] Apr, [facility] [address] [id number], [place] [address] Apr, IMMUNIZATIONS No Known Immunizations SOCIAL HISTORY Never Assessed REASON FOR VISIT BS f/u attempt PLAN OF CARE VITAL SIGNS MEDICATIONS Unknown Medications RESULTS No Results PROCEDURES No Known procedures INSTRUCTIONS MEDICATIONS ADMINISTERED No Known Medications MEDICAL (GENERAL) HISTORY Type Description Date Medical History asthma Medical History type II diabetes Medical History sleep apnea Medical History narcolepsy Surgical History hysterectomy, partial Hospitalization History Chest pain-[facility] 02/27/17
--- OUTSIDE RECORDS SUMMARY | 2018-03-08 22:47 | XMS REPORT ---
Author Author JEFF BELTRÁN Organization [facility], [place] Address [address] [place] [address] Care Team Providers Care Team Assistant Name Role Phone MARGIE BELTRÁNTA Unavailable PROBLEMS Type Condition ICD9-CM Code KGF27-KH Code Onset Dates Condition Status SNOMED Code Problem Right carpal tunnel syndrome G56.01 Active 53611640 Problem Gastroesophageal reflux disease with esophagitis K21.0 Active 999945982 Problem Falls frequently R29.6 Active 495769209 Problem Porokeratosis Q82.8 Active 523081487 Problem Posterior subcapsular age-related cataract of both eyes H25.043 Active 3929395 Problem Non-alcoholic fatty liver disease K76.0 Active 732518799 Problem Delayed gastric emptying K30 Active 118775269 Problem Pain in left foot M79.672 Active 5780062 Problem Other chronic pain G89.29 Active 83049633 Problem Tarsal tunnel syndrome of left side G57.52 Active 59232351 Problem Obesity E66.9 Active 105969991 Problem Hypermetropia, bilateral H52.03 Active 26840299 Problem Type 2 diabetes mellitus with hyperglycemia E11.65 Active 55747049 Problem Nuclear cataract of both eyes H25.13 Active 00473903 Problem Presbyopia OU H52.4 Active 90974301 Problem Obstructive sleep apnea G47.33 Active 05074538 Problem Shortness of breath R06.02 Active 826378078 Problem Type 2 diabetes mellitus with diabetic polyneuropathy E11.42 Active 45485962 Problem Lung nodule R91.1 Active 820278861 Problem Mixed hyperlipidemia E78.2 Active 365445510 Problem Primary narcolepsy with cataplexy G47.411 Active 074980623 ALLERGIES No Information ENCOUNTERS Encounter Location Date Diagnosis [facility], [place] [address] [facility] [id number] [address] 24 Jan, 2018 Type 2 diabetes mellitus with hyperglycemia E11.65 [facility], [place] [address] [address] 132[address] Jan, Type 2 diabetes mellitus with hyperglycemia E11.65 [facility], [place] [id number] [place] [address] 29345- 1958 Dec, Chest pain on breathing R07.1 [facility] [id number] [place] [address] 96961 -9496 Dec, Chest pain on breathing R07.1 [facility], [place] [id number] [place] [address] 83154- 6971 Dec, Well woman exam Z01.419 ; Screening for breast cancer Z12.31 and Screening for colon cancer Z12.11 [place] [id number] [place] [address] 41436- 3140 Dec, [place] [id number] [place] [address] 93791- 4098 Dec, Type 2 diabetes mellitus with hyperglycemia E11.65 ; Mixed hyperlipidemia E78.2 and Gastroesophageal reflux disease with esophagitis K21.0 [facility], [place] [id number] [place] [address] 71158- 7194 Nov, Type 2 diabetes mellitus with hyperglycemia E11.65 and Mixed hyperlipidemia E78.2 [place] [id number] [place] [address] 12747- 2831 Nov, [place] [id number] [place] [address] 49421- 1369 Oct, Back muscle spasm M62.830 and Bilateral low back pain without sciatica M54.5 [facility], [place] [id number] [place] [address] 75870- 7581 Oct, [place] [id number] [place] [address] 92638- 4085 September, [facility], [place] [id number] [place] [address] 22440- 1657 September, Type 2 diabetes mellitus with hyperglycemia E11.65 [place] [id number] [place] [address] 00341- 5582 September, Type 2 diabetes mellitus with hyperglycemia E11.65 [place] [address] 28247- 8682 September, Porokeratosis Q82.8 and Type 2 diabetes mellitus with diabetic polyneuropathy E11.42 [facility] [address] 03634 -1636 Aug, Seasonal allergic rhinitis, unspecified trigger J30.2 [place] [address] 96881- 5490 Aug, [place] [address] 21570- 5828 Aug, Bilateral low back pain without sciatica M54.5 [facility] [address] [id number] Aug, Dental examination V72.2 and Dental examination Z01.20 [place] [address] 52778- 2717 Aug, Dental examination Z01.20 and Dental caries K02.9 [place] [address] 41875- 6673 Aug, Obstructive sleep apnea G47.33 ; Obesity E66.9 ; Type 2 diabetes mellitus with hyperglycemia E11.65 ; Palpitations R00.2 and Corns and callosities L84 [place] [id number] [place] [address] 78938- 4951 Jul, [place] [address] 57743- 4982 Jul, [place] [address] 50961- 1512 Jun, Type 2 diabetes mellitus with hyperglycemia E11.65 ; Colon cancer screening Z12.11 ; Mixed hyperlipidemia E78.2 ; Non-alcoholic fatty liver disease K76.0 ; Gastroesophageal reflux disease with esophagitis K21.0 and Pain of upper abdomen R10.10 [facility] [place] [id number] [place] [address] 04715- 1262 09 Jun, 2017 Falls frequently R29.6 [facility] [id number] [place] [address] 67313 -6281 May, Infection of nose J34.89 [place] [address] 58973- 4119 May, Bilateral low back pain without sciatica M54.5 [place] [id number] [place] [address] 06292- 3559 May, Type 2 diabetes mellitus with diabetic polyneuropathy E11.42 ; Obstructive sleep apnea G47.33 and Type 2 diabetes mellitus with hyperglycemia E11.65 [place] [id number] [place] [address] 28483- 2081 Apr, Bilateral low back pain without sciatica M54.5 [place] [id number] [place] [address] 64346- 2604 Apr, Mixed hyperlipidemia E78.2 and Type 2 diabetes mellitus with hyperglycemia E11.65 [place] [id number] [place] [address] 29874- 8733 Apr, Type 2 diabetes mellitus with diabetic polyneuropathy E11.42 [place] [id number] [place] [address] 25375- 1531 Apr, [place] [id number] [place] [address] 53191- 1539 Apr, Skin lesion of left arm L98.9 and Skin lesion of left leg L98.9 [place] [id number] [place] [address] 33774- 8652 Mar, Bilateral low back pain without sciatica M54.5 [place] [id number] [place] [address] 45614- 8478 Mar, Plantar fasciitis of left foot M72.2 ; Bursitis of left foot M71.572 and Type 2 diabetes mellitus with diabetic polyneuropathy E11.42 [facility] [place] [address] 38824- 0427 Feb, Non-alcoholic fatty liver disease K76.0 ; Keratoacanthoma L85.8 ; Seborrheic keratosis L82.1 ; Type 2 diabetes mellitus with hyperglycemia E11.65 and Nuclear cataract of both eyes H25.13 [facility] [address] [id number] Feb, [facility] [place] [address] 68208- 9377 Feb, [place] [address] 12825- 7566 Feb, [place] [address] 77974- 8173 Feb, Type 2 diabetes mellitus with hyperglycemia E11.65 ; Back muscle spasm M62.830 and Encounter for immunization Z23 [facility] [place] [address] 84336- 7988 Jan, Plantar fasciitis of left foot M72.2 [facility] [place] [address] 76905- 5853 Dec, [facility] [place] [address] 67039- 3173 Dec, Plantar fasciitis of left foot M72.2 and Tarsal tunnel syndrome of left side G57.52 [facility] [place] [id number] [place] [address] 14062- 4837 Dec, [facility] [address] 14540 -5942 Nov, Mary Jane rash of groin B37.89 and Rash and nonspecific skin eruption R21 [facility] [place] [address] 07182- 2405 Nov, [facility] [place] [id number] [place] [address] 80414- 8697 Oct, Type 2 diabetes mellitus with hyperglycemia E11.65 and Mixed hyperlipidemia E78.2 [facility] [place] [id number] [place] [address] 18135- 1321 Oct, [place] [id number] [place] [address] 31878- 4770 Oct, Chest pain, unspecified R07.9 ; Palpitations R00.2 ; Syncope R55 and Mixed hyperlipidemia E78.2 [place] [id number] [place] [address] 74853- 9411 Oct, Plantar fasciitis, bilateral M72.2 and Type 1 diabetes mellitus with diabetic neuropathy E10.40 [place] [id number] [place] [address] 82862- 9853 Oct, [place] [id number] [place] [address] 92665- 3031 September, Type 2 diabetes mellitus with hyperglycemia E11.65 [place] [id number] [place] [address] 76701- 6250 September, Type 2 diabetes mellitus with hyperglycemia E11.65 ; Type 2 diabetes mellitus with diabetic polyneuropathy E11.42 ; Gastroesophageal reflux disease with esophagitis K21.0 and Headache, unspecified headache type R51 [place] [id number] [place] [address] 27467- 5714 September, [facility], [place] [id number] [place] [address] 24449- 0101 September, [facility], [place] [id number] [place] [address] 20784- 2792 September, [facility], [place] [id number] [place] [address] 45932- 2200 September, Other chest pain R07.89 ; Heart palpitations R00.2 ; Mixed hyperlipidemia E78.2 and Obesity E66.9 [facility], [place] [address], [place] [address]- 5761 Aug, [facility], [place] [address], [place] [address]- 6569 Aug, Type 2 diabetes mellitus with diabetic polyneuropathy E11.42 and Type 2 diabetes mellitus with hyperglycemia E11.65 [facility], [place] [address], [place] [address]- 7616 Aug, [facility], [place] [address], [place] [address]- 7191 Aug, [facility], [place] [id number] [place] [address]- 9221 Aug, [facility] [place] [id number] [place] [address]- 5740 Aug, Type 2 diabetes mellitus with hyperglycemia E11.65 [facility], [place] [address], [place] [address]- 5949 Aug, [facility] [place] [address], [place] [address]- 0152 Jul, Type 2 diabetes mellitus with diabetic polyneuropathy E11.42 [facility] [place] [id number] [place] [address]- 1864 Jul, Type 2 diabetes mellitus with hyperglycemia E11.65 [facility] [place] [address], [place] [address]- 7993 Jul, [facility] [place] [address], [place] [address]- 5881 Jul, [facility] [place] [address], [place] [address]- 4152 Jul, [facility] [place] [address], [place] [address]- 1125 Jul, Type 2 diabetes mellitus with diabetic polyneuropathy E11.42 and Type 2 diabetes mellitus with hyperglycemia E11.65 [facility] [place] [id number] [place] [address] 32837- 1913 Jun, Obstructive sleep apnea G47.33 [facility] [place] [address] 00025- 4930 Jun, Type 2 diabetes mellitus with diabetic polyneuropathy E11.42 ; Primary narcolepsy with cataplexy G47.411 ; Abdominal bloating R14.0 ; Other chest pain R07.89 and Vision problems H54.7 [facility], [place] [address] 05563- 5866 Jun, [facility] [place] [address] 80708- 9692 May, [facility], [place] [address] 45295- 9964 Apr, [facility] [place] [address] 43895- 7984 Apr, Plantar fasciitis of left foot M72.2 [facility], [place] [id number] [place] [address] 95146- 0952 Mar, [facility], [place] [address] 47809- 8685 Mar, Plantar fasciitis of left foot M72.2 and Type 2 diabetes mellitus with diabetic polyneuropathy E11.42 [place] [address] 84582- 0006 Feb, Type 2 diabetes mellitus with hyperglycemia E11.65 ; Mixed hyperlipidemia E78.2 and Encounter for immunization Z23 [facility], [place] [id number] [place] [address] 44950- 2915 Feb, [facility] [place] [address] 95509- 4365 Feb, [facility] [place] [address] 43276- 6823 Feb, Type 2 diabetes mellitus with hyperglycemia E11.65 [facility], [place] [address], [place] [address]- 9236 Feb, Type 2 diabetes mellitus with hyperglycemia E11.65 [facility], [place] [id number] [place] [address] 09503- 6244 Jan, [facility], [place] [id number] [place] [address] 48164- 1886 Dec, Pain in left foot M79.672 ; Other chronic pain G89.29 ; Type 2 diabetes mellitus with hyperglycemia E11.65 ; Obstructive sleep apnea G47.33 ; Falls frequently R29.6 ; Mixed hyperlipidemia E78.2 and Gastroesophageal reflux disease with esophagitis K21.0 [facility], [place] [id number] [place] [address] 49198- 5623 Nov, [facility] [place] [id number] [place] [address] 09081- 3695 Oct, Type 2 diabetes mellitus with diabetic polyneuropathy E11.42 [facility] [place] [id number] [place] [address] 53377- 1019 Oct, [facility], [place] [id number] [place] [address] 80969- 6065 Oct, [facility], [place] [id number] [place] [address] 38258- 9263 September, [facility], [place] [id number] [place] [address] 62351- 1152 September, [facility], [place] [id number] [place] [address] 72710- 6699 September, [facility], [place] [id number] [place] [address] 66526- 1150 September, [facility], [place] [id number] [place] [address] 36973- 4787 September, [facility], [place] [address], [place] [address]- 0166 Aug, Type 2 diabetes mellitus with hyperglycemia E11.65 ; Mixed hyperlipidemia E78.2 and Right carpal tunnel syndrome G56.01 [facility] [place] [id number] [address]- 0603 Aug, [facility] [place] [id number] [place] [address] 10075- 9958 Jul, [facility] [place] [id number] [place] [address] 23742- 0826 Jun, [facility] [place] [id number] [place] [address] 20725- 7026 Jun, [facility] [place] [id number] [place] [address] 35044- 6232 May, [facility] [place] [id number] [place] [address] 01266- 5138 May, [facility] [place] [id number] [place] [address] 79436- 5595 May, Type 2 diabetes mellitus with hyperglycemia E11.65 and Falls E888.9 [facility] [place] [id number] [place] [address] 29757- 3585 Apr, Type 2 diabetes mellitus with hyperglycemia E11.65 [facility] [place] [id number] [place] [address] 63374- 0772 Apr, [facility] [place] [id number] [place] [address] 53406- 6419 Apr, Type 2 diabetes mellitus with hyperglycemia E11.65 [facility] [place] [id number] [place] [address] 47952- 5060 Apr, [facility] [place] [id number] [place] [address] 92587- 3956 Mar, Type 2 diabetes mellitus with diabetic polyneuropathy E11.42 ; Bilateral low back pain without sciatica M54.5 and Dry nose J34.89 [facility], [place] [id number] [place] [address] 13454- 2181 Mar, Palpitations R00.2 ; Syncope R55 ; DM (diabetes mellitus) E11.9 and Obesity E66.9 [facility] [place] [address] 94622- 4859 Mar, [facility] [place] [address] 66314- 0575 Mar, [facility] [place] [address] 63226- 8844 Mar, [facility] [place] [address] 36467- 6806 Feb, [facility] [place] [address] 81706- 2929 Jan, [facility] [place] [address] 25129- 9523 Jan, [facility] [place] [address] 26761- 2568 Jan, Falls E888.9 and Sinusitis 473.9 [facility] [place] [id number] [place] [address] 56949- 0757 Dec, [facility] [place] [id number] [place] [address] 10728- 1656 Dec, [facility] [place] [id number] [place] [address] 38972- 6975 Dec, [facility] [place] [id number] [place] [address] 03248- 4647 Dec, [facility] [place] [id number] [place] [address] 25997- 0984 Dec, Diabetes mellitus without mention of complication, type II or unspecified type, not stated as uncontrolled 250.00 and Shortness of breath 786.05 [facility] [place] [id number] [place] [address] 29410- 3860 Dec, [facility] [place] [id number] [place] [address] 96113- 3247 Nov, [facility] [place] [id number] [place] [address] 26789- 7691 Nov, [facility] [place] [id number] [place] [address] 716092- 2347 Oct, Restrictive lung disease 518.89 [facility] [place] [id number] [place] [address] 825735- 8958 Oct, [facility] [place] [id number] [place] [address] 74705- 6588 Oct, Shortness of breath 786.05 [facility] [place] [id number] [place] [address] 938260- 6835 September, Other nonspecific abnormal finding of lung field 793.19 ; Diabetes mellitus without mention of complication, type II or unspecified type, not stated as uncontrolled 250.00 ; Hyperlipidemia LDL goal < 100 272.4 ; Narcolepsy, with cataplexy 347.01 ; Shortness of breath 786.05 and Chest pain 786.50 [facility] [place] [id number] [place] [address] 13554- 6164 Aug, [facility] [place] [id number] [place] [address] 14066- 8813 Aug, [facility] [place] [id number] [place] [address] 08673- 0863 Jun, [facility] [place] [id number] [place] [address] 49647- 8476 Jun, [facility] [place] [id number] [place] [address] 12270- 2011 Jun, [facility] [place] [id number] [place] [address] 76843- 5475 Jun, [facility] [place] [id number] [place] [address] 851948- 4899 Jun, [facility] [place] [id number] [place] [address], [place] [address]- 7005 Jun, 2014 [facility] [place] [facility] [address] [id number] [place] [address]- 1451 Jun, [facility] [place] [facility] [address] [id number] [place] [address]- 9057 Jun, [facility] [place] [facility] [address] [id number] [place] [address]- 3972 May, [facility] [place] [facility] [address] [id number] [place] [address] May, [facility] [place] [facility] [address] [id number] [place] [address] Apr, [facility] [place] [facility] [address] [id number] [place] [address] Apr, [facility] [place] [facility] [address] [id number] [place] [address] Mar, [facility] [place] [facility] [address] [id number] [place] [address] Mar, [facility] [place] [facility] [address] [id number] [place] [address] Mar, [facility] [place] [facility] [address] [id number] [place] [address] Mar, [facility] [place] [facility] [address] [id number] [place] [address] Nov, [facility] [place] [facility] [address] [id number] [place] [address] Nov, [facility] [place] [facility] [address] [id number] [place] [address] Nov, [facility] [place] [facility] [address] [id number] [place] [address] Nov, [facility] [place] [facility] [address] [id number] [place] [address] Oct, [facility] [place] [facility] [address] [id number] [place] [address] Oct, [facility] [place] [facility] [address] [id number] [place] [address] Oct, [facility] [place] [facility] [address] [id number] [place] [address] Oct, [facility] [place] [facility] [address] [id number] [place] [address] Oct, [facility] [place] [facility] [address] [id number] [place] [address] Oct, [facility] [place] [facility] [address] [id number] [place] [address] Oct, [facility] [place] [facility] [address] [id number] [place] [address] Oct, [facility] [place] [facility] [address] [id number] [place] [address] Oct, [facility] [place] [facility] [address] [id number] [place] [address] Oct, [facility] [place] [facility] [address] [id number] [place] [address] September, [facility] [place] [facility] [address] [id number] [place] [address] September, [facility] [place] [facility] [address] [id number] [place] [address] Aug, [facility] [place] [facility] [address] [id number] [place] [address] Aug, [facility] [place] [facility] [address] [address] [id number] [place] [address] Aug, [facility] [place] [facility] [address] [id number] [place] [address] Aug, [facility] [place] [facility] [address] [id number] [place] [address] Aug, [facility] [place] [facility] [address] [id number] [place] [address] Aug, [facility] [place] [facility] [address] [id number] [place] [address] Jul, [facility] [place] [facility] [address] [id number] [place] [address] Jul, [facility] [place] [facility] [address] [id number] [place] [address] Jul, [facility] [place] [facility] [address] [id number] [place] [address] Jul, [facility] [place] [facility] [address] [id number] [place] [address] Jul, [facility] [place] [facility] [address] [id number] [place] [address] Jul, [facility] [place] [facility] [address] [id number] [place] [address] Jul, [facility] [place] [facility] [address] [id number] [place] [address] 98[address] Jul, [facility] [place] [facility] [address] [id number] [place] [address] 1476 24 Jul, 2013 [facility] [place] [facility] [address] [id number] [place] [address] Jul, [facility] [place] [facility] [address] [id number] [place] [address] 2615 21 Jul, 2013 [facility] [place] [facility] [address] [id number] [place] [address] 19 Jul, 2013 [facility] [place] [facility] [address] [id number] [place] [address] 9027 19 Jul, 2013 [facility] [place] [facility] [address] [id number] [place] [address] 6397 14 Jul, 2013 [facility] [place] [facility] [address] [id number] [place] [address] Jul, [facility] [place] [facility] [address] [id number] [place] [address] 1008 Jul, [facility] [place] [facility] [address] [id number] [place] [address] Jun, [facility] [place] [facility] [address] [id number] [place] [address] 76[address] Jun, [facility] [place] [facility] [address] [id number] [place] [address] Jun, [facility] [place] [facility] [address] [id number] [place] [address] 89[address] Jun, [facility] [place] [facility] [address] [id number] [place] [address] 0897 Jun, [facility] [place] [facility] [address] [id number] [place] [address] 6610 Jun, [facility] [place] [facility] [address] [id number] [place] [address] 4108 Jun, [facility] [place] [facility] [address] [id number] [place] [address] Jun, [facility] [place] [facility] [address] [id number] [place] [address] 3774 Jun, [facility] [place] [facility] [address] [id number] [place] [address]37 Jun, [facility] [place] [facility] [address] [id number] [place] [address] 4148 Jun, [facility] [place] [facility] [address] [id number] [place] [address] 6614 Jun, [facility] [place] [facility] [address] [id number] [place] [address] 8780 14 Jun, 2013 [facility] [place] [facility] [address] [id number] [place] [address] 13 Jun, 2013 [facility] [place] [facility] [address] [id number] [place] [address] 6144 13 Jun, 2013 [facility] [place] [facility] [address] [id number] [place] [address] 4026 13 Jun, 2013 [facility] [place] [facility] [address] [facility] [id number] [place] [address] 4457 13 Jun, 2013 [facility] [place] [facility] [address] [id number] [place] [address] 0318 12 Jun, 2013 [facility] [place] [facility] [address] [facility] [id number] [place] [address] Jun, 2013 [facility] [place] [facility] [address] [facility] [id number] [place] [address] 0366 Jun, 2013 [facility] [place] [facility] [address] [facility] [id number] [place] [address]- 0869 Jun, 2013 [facility] [place] [facility] [address] [facility] [id number] [place] [address]- 0109 10 Jun, 2013 [facility] [place] [facility] [address] [facility] [id number] [place] [address] 9309 Jun, [facility] [place] [facility] [address] [facility] [id number] [place] [address] 6447 Jun, [facility] [place] [facility] [address] [facility] [id number], [place] [address] Jun, 2013 [facility] [place] [facility] [address] [facility] [id number] [place] [address]- 7[address] Jun, 2013 [facility] [place] [facility] [address] [facility] [id number] [place] [address]- 8424 Jun, 2013 [facility] [place] [facility] [address] [facility] [id number] [place] [address]- 6806 Jun, 2013 [facility] [place] [facility] [address] [facility] [id number] [place] [address]- 3070 Jun, [facility] [address] [id number] [place] [address]- 4013 Jun, [facility] [place] [facility] [address] [id number] [place] [address] 8005 May, [facility] [place] [facility] [address] [id number] [place] [address]- 9735 May, [facility] [place] [facility] [address] [id number] [place] [address]- 5159 May, [facility] [place] [facility] [address] [id number] [place] [address]- 5659 May, [facility] [place] [facility] [address] [id number] [place] [address]- 1085 May, [facility] [place] [facility] [address] [id number] [place] [address]- 8395 May, [facility] [place] [facility] [address] [id number] [place] [address] 4504 May, [facility] [place] [facility] [address] [id number] [place] [address]- 1429 May, [facility] [place] [facility] [address] [id number] [place] [address]- 3802 May, [facility] [place] [facility] [address] [id number] [place] [address]- 9192 May, [facility] [place] [facility] [address] [id number] [place] [address]- 1310 May, [facility] [place] [facility] [address] [id number] [place] [address]- 2608 May, [facility] [place] [facility] [address] [id number] [place] [address]- 5119 May, [facility] [place] [facility] [address] [id number] [place] [address]- 3988 May, [facility] [place] [facility] [address] [id number], [place] [address] May, [facility] [place] [address] [id number], [place] [address] Apr, [facility] [place] [address] [facility] [id number], [place] [address] Apr, [facility] [place] [id number], [place] [address] Dec, [facility] [place] [address] [facility] [id number], [place] [address] 8559 Nov, [facility] [place] [id number], [place] [address] May, [facility] [place] [id number], [place] [address] 3112 Apr, [facility] [place] [id number], [place] [address]239 Apr, [facility] [place] [address] [id number], [place] [address] 74[address] Apr, [facility] [place] [address] [id number], [place] [address] Apr, IMMUNIZATIONS No Known Immunizations SOCIAL HISTORY Never Assessed REASON FOR VISIT Refill request PLAN OF CARE VITAL SIGNS MEDICATIONS Medication Instructions Dosage Frequency Start Date End Date Duration Status Levemir Flexpen 100 unit/mL (3 mL) subcutaneous 2 times a day 60 units 12h 24 Aug, 2013 Active RESULTS No Results PROCEDURES No Known procedures INSTRUCTIONS MEDICATIONS ADMINISTERED No Known Medications MEDICAL (GENERAL) HISTORY Type Description Date Medical History asthma Medical History type II diabetes Medical History sleep apnea Medical History narcolepsy Surgical History hysterectomy, partial Hospitalization History Chest pain-[facility] 02/27/17
--- OUTSIDE RECORDS SUMMARY | 2018-03-08 22:47 | XMS REPORT ---
Author Author JEFF BELTRÁN [facility] Address [address] [place] [address] Care Team Providers Care Performance Specialist Name Role Phone JEFF BELTRÁN Unavailable PROBLEMS ALLERGIES No Information ENCOUNTERS IMMUNIZATIONS No Known Immunizations SOCIAL HISTORY No smoking Hx information available REASON FOR VISIT PLAN OF CARE VITAL SIGNS MEDICATIONS RESULTS No Results PROCEDURES No Known procedures INSTRUCTIONS MEDICATIONS ADMINISTERED No Known Medications MEDICAL (GENERAL) HISTORY
--- OUTSIDE RECORDS SUMMARY | 2018-03-08 22:48 | XMS REPORT ---
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 Name Role Phone ISIDORO BAILON Unavailable PROBLEMS Type Condition ICD9-CM Code AZP38-RX Code Onset Dates Condition Status SNOMED Code Problem Right carpal tunnel syndrome G56.01 Active 51864248 Problem Gastroesophageal reflux disease with esophagitis K21.0 Active 349952818 Problem Falls frequently R29.6 Active 694717532 Problem Porokeratosis Q82.8 Active 687075317 Problem Posterior subcapsular age-related cataract of both eyes H25.043 Active 2866362 Problem Non-alcoholic fatty liver disease K76.0 Active 393857838 Problem Delayed gastric emptying K30 Active 736385585 Problem Pain in left foot M79.672 Active 0911813 Problem Other chronic pain G89.29 Active 12454028 Problem Tarsal tunnel syndrome of left side G57.52 Active 66253788 Problem Obesity E66.9 Active 852417348 Problem Hypermetropia, bilateral H52.03 Active 86224593 Problem Type 2 diabetes mellitus with hyperglycemia E11.65 Active 01355829 Problem Nuclear cataract of both eyes H25.13 Active 07827494 Problem Presbyopia OU H52.4 Active 96570686 Problem Obstructive sleep apnea G47.33 Active 88764092 Problem Shortness of breath R06.02 Active 449458793 Problem Type 2 diabetes mellitus with diabetic polyneuropathy E11.42 Active 77846701 Problem Lung nodule R91.1 Active 965979071 Problem Mixed hyperlipidemia E78.2 Active 129933292 Problem Primary narcolepsy with cataplexy G47.411 Active 974764292 ALLERGIES Substance Reaction Event Type Date Status Penicillin G Sodium Unknown Drug Allergy Dec, Active Erythromycin Unknown Drug Allergy Dec, Active ENCOUNTERS Encounter Location Date Diagnosis [facility] [address] [facility] [id number] [address] Jan, Type 2 diabetes mellitus with hyperglycemia E11.65 [facility] [address] [address] Dec, Chest pain on breathing R07.1 [facility] [address] [address] Dec, Chest pain on breathing R07.1 [facility] [id number] [place] [address] 04288- 0867 Dec, Well woman exam Z01.419 ; Screening for breast cancer Z12.31 and Screening for colon cancer Z12.11 [facility] [id number] [place] [address] 68960- 2399 Dec, [facility] [id number] [place] [address] 89257- 6536 Dec, Type 2 diabetes mellitus with hyperglycemia E11.65 ; Mixed hyperlipidemia E78.2 and Gastroesophageal reflux disease with esophagitis K21.0 [facility] [id number] [place] [address] 42833- 4616 Nov, Type 2 diabetes mellitus with hyperglycemia E11.65 and Mixed hyperlipidemia E78.2 [facility] [id number] [place] [address] 87542- 4713 Nov, [facility] [id number] [place] [address] 36204- 3102 Oct, [facility] [id number] [place] [address] 05842- 5643 Oct, [facility] [id number] [place] [address] 99146- 4842 September, [facility] [id number] [place] [address] 58197- 5747 September, Type 2 diabetes mellitus with hyperglycemia E11.65 [facility] [id number] [place] [address] 53701- 0401 September, Type 2 diabetes mellitus with hyperglycemia E11.65 [place] [id number] [place] [address] 30736- 3057 September, Porokeratosis Q82.8 and Type 2 diabetes mellitus with diabetic polyneuropathy E11.42 [facility] [id number] [place] [address] 17383 -8582 Aug, Seasonal allergic rhinitis, unspecified trigger J30.2 [facility] [address] 85222- 2510 Aug, [facility] [address] 31349- 4271 Aug, Bilateral low back pain without sciatica M54.5 [facility] [address] [id number] Aug, Dental examination V72.2 and Dental examination Z01.20 [place] [address] 92592- 0759 Aug, Dental examination Z01.20 and Dental caries K02.9 [place] [address] 26953- 1053 Aug, Obstructive sleep apnea G47.33 ; Obesity E66.9 ; Type 2 diabetes mellitus with hyperglycemia E11.65 ; Palpitations R00.2 and Corns and callosities L84 [place] [id number] [place] [address] 09067- 1493 Jul, [place] [address] 88468- 3431 Jul, [facility] [address] 54969- 6547 Jun, Type 2 diabetes mellitus with hyperglycemia E11.65 ; Colon cancer screening Z12.11 ; Mixed hyperlipidemia E78.2 ; Non-alcoholic fatty liver disease K76.0 ; Gastroesophageal reflux disease with esophagitis K21.0 and Pain of upper abdomen R10.10 [facility] [address] 03740- 4419 Jun, Falls frequently R29.6 [facility] [id number] [place] [address] 67488 -8864 May, Infection of nose J34.89 [facility] [id number] [place] [address] 72330- 1379 May, Bilateral low back pain without sciatica M54.5 [facility] [id number] [place] [address] 19742- 1997 May, Type 2 diabetes mellitus with diabetic polyneuropathy E11.42 ; Obstructive sleep apnea G47.33 and Type 2 diabetes mellitus with hyperglycemia E11.65 [place] [id number] [place] [address] 36576- 7142 Apr, Bilateral low back pain without sciatica M54.5 [facility] [id number] [place] [address] 11028- 7698 Apr, Mixed hyperlipidemia E78.2 and Type 2 diabetes mellitus with hyperglycemia E11.65 [facility] [facility] [id number] [place] [address] 78613- 7154 Apr, Type 2 diabetes mellitus with diabetic polyneuropathy E11.42 [facility] [id number] [place] [address] 72434- 9223 Apr, [place] [id number] [place] [address] 41091- 9267 Apr, Skin lesion of left arm L98.9 and Skin lesion of left leg L98.9 [facility] [id number] [place] [address] 50319- 2598 Mar, Bilateral low back pain without sciatica M54.5 [facility] [id number] [place] [address] 87681- 5568 Mar, Plantar fasciitis of left foot M72.2 ; Bursitis of left foot M71.572 and Type 2 diabetes mellitus with diabetic polyneuropathy E11.42 [facility] [id number] [place] [address] 70281- 1183 Feb, Non-alcoholic fatty liver disease K76.0 ; Keratoacanthoma L85.8 ; Seborrheic keratosis L82.1 ; Type 2 diabetes mellitus with hyperglycemia E11.65 and Nuclear cataract of both eyes H25.13 [facility] [address] [id number] Feb, [facility] [address] 16841- 0780 Feb, [place] [address] 97418- 9406 Feb, [place] [address] 65781- 3393 Feb, Type 2 diabetes mellitus with hyperglycemia E11.65 ; Back muscle spasm M62.830 and Encounter for immunization Z23 [place] [address] 71663- 5183 Jan, Plantar fasciitis of left foot M72.2 [place] [address] 96137- 8590 Dec, [facility] [address] 47163- 0747 Dec, Plantar fasciitis of left foot M72.2 and Tarsal tunnel syndrome of left side G57.52 [facility] [id number] [place] [address] 15670- 6320 Dec, [facility] [id number] [place] [address] 31416 -3014 Nov, Mary Jane rash of groin B37.89 and Rash and nonspecific skin eruption R21 [facility] [id number] [place] [address] 38503- 8350 Nov, [facility] [id number] [place] [address] 35909- 1225 Oct, Type 2 diabetes mellitus with hyperglycemia E11.65 and Mixed hyperlipidemia E78.2 [facility] [id number] [place] [address] 74346- 8499 Oct, [place] [id number] [place] [address] 45482- 6003 Oct, Chest pain, unspecified R07.9 ; Palpitations R00.2 ; Syncope R55 and Mixed hyperlipidemia E78.2 [place] [id number] [place] [address] 94631- 6715 Oct, Plantar fasciitis, bilateral M72.2 and Type 1 diabetes mellitus with diabetic neuropathy E10.40 [place] [id number] [place] [address] 26103- 4400 Oct, [facility] [place] [id number] [place] [address] 80719- 1773 September, Type 2 diabetes mellitus with hyperglycemia E11.65 [facility] [id number] [place] [address] 94798- 2481 September, Type 2 diabetes mellitus with hyperglycemia E11.65 ; Type 2 diabetes mellitus with diabetic polyneuropathy E11.42 ; Gastroesophageal reflux disease with esophagitis K21.0 and Headache, unspecified headache type R51 [place] [id number] [place] [address] 25047- 9863 September, [place] [id number] [place] [address] 15869- 2452 September, [facility] [id number] [place] [address] 73751- 0214 September, [facility] [id number] [place] [address] 69137- 1232 September, Other chest pain R07.89 ; Heart palpitations R00.2 ; Mixed hyperlipidemia E78.2 and Obesity E66.9 [place] [address] [place] [address] 49194- 7750 Aug, [place] [id number] [address]- 7489 Aug, Type 2 diabetes mellitus with diabetic polyneuropathy E11.42 and Type 2 diabetes mellitus with hyperglycemia E11.65 [facility] [address] [address]- 8122 Aug, [facility] [address] [address]- 5114 Aug, [facility] [address] [address]- 0900 Aug, [facility] [address] [address]- 4683 Aug, Type 2 diabetes mellitus with hyperglycemia E11.65 [facility] [address] [address]- 6286 Aug, [facility] [address] [address]- 1598 Jul, Type 2 diabetes mellitus with diabetic polyneuropathy E11.42 [facility] [address] [address]- 7520 Jul, Type 2 diabetes mellitus with hyperglycemia E11.65 [facility] [address] [address]- 0211 Jul, [facility] [address] [address]- 0078 Jul, [facility] [address] [address]- 8474 Jul, [facility] [address] [address]- 6986 Jul, Type 2 diabetes mellitus with diabetic polyneuropathy E11.42 and Type 2 diabetes mellitus with hyperglycemia E11.65 [facility] [address] [id number] [address]- 5986 Jun, Obstructive sleep apnea G47.33 [facility] [id number] [place] [address] 92460- 7869 Jun, Type 2 diabetes mellitus with diabetic polyneuropathy E11.42 ; Primary narcolepsy with cataplexy G47.411 ; Abdominal bloating R14.0 ; Other chest pain R07.89 and Vision problems H54.7 [facility] [id number] [place] [address] 87663- 8035 Jun, [facility] [address] 34662- 1888 May, [facility] [id number] [place] [address] 36081- 7527 Apr, [facility] [address] 96915- 2451 Apr, Plantar fasciitis of left foot M72.2 [facility] [address] 56162- 1795 Mar, [facility] [address] 66151- 3835 Mar, Plantar fasciitis of left foot M72.2 and Type 2 diabetes mellitus with diabetic polyneuropathy E11.42 [facility] [id number] [place] [address] 02123- 4034 Feb, Type 2 diabetes mellitus with hyperglycemia E11.65 ; Mixed hyperlipidemia E78.2 and Encounter for immunization Z23 [facility] [id number] [place] [address] 01081- 6172 Feb, [facility] [id number] [place] [address] 28029- 2741 Feb, [facility] [address] 93473- 2898 Feb, Type 2 diabetes mellitus with hyperglycemia E11.65 [facility] [id number] [place] [address] 22657- 7538 Feb, Type 2 diabetes mellitus with hyperglycemia E11.65 [place] [address] [address]- 9287 Jan, [facility] [id number] [place] [address] 42720- 0964 Dec, Pain in left foot M79.672 ; Other chronic pain G89.29 ; Type 2 diabetes mellitus with hyperglycemia E11.65 ; Obstructive sleep apnea G47.33 ; Falls frequently R29.6 ; Mixed hyperlipidemia E78.2 and Gastroesophageal reflux disease with esophagitis K21.0 [facility] [id number] [address]- 5611 Nov, [facility] [id number] [place] [address] 08676- 1455 Oct, Type 2 diabetes mellitus with diabetic polyneuropathy E11.42 [facility] [id number] [place] [address] 15864- 5845 Oct, [facility] [id number] [place] [address] 97536- 1888 Oct, [facility] [address] [place] [address] 59980- 7127 September, [facility] [id number] [place] [address] 43153- 7020 September, [facility] [address] [address]- 0792 September, [facility] [id number] [address]- 6352 September, [facility] [address] [address]- 3042 September, [facility] [address] [place] [address] 04060- 9791 Aug, Type 2 diabetes mellitus with hyperglycemia E11.65 ; Mixed hyperlipidemia E78.2 and Right carpal tunnel syndrome G56.01 [facility] [id number] [place] [address] 80571- 1192 Aug, [facility] [address] [address]- 0510 Jul, [facility] [id number] [place] [address] 232984- 8964 Jun, [facility] [id number] [place] [address] 49917- 9986 Jun, [facility] [id number] [place] [address] 94393- 2074 May, [facility] [id number] [place] [address] 01453- 9926 May, [facility] [id number] [place] [address] 47943- 6924 May, Type 2 diabetes mellitus with hyperglycemia E11.65 and Falls E888.9 [facility] [id number] [place] [address] 46292- 8273 Apr, Type 2 diabetes mellitus with hyperglycemia E11.65 [facility] [id number] [place] [address] 40187- 3937 Apr, [facility] [id number] [place] [address] 79180- 4749 Apr, Type 2 diabetes mellitus with hyperglycemia E11.65 [facility] [address] [place] [address] 47221- 4306 Apr, [facility] [id number] [place] [address] 98930- 0413 Mar, Type 2 diabetes mellitus with diabetic polyneuropathy E11.42 ; Bilateral low back pain without sciatica M54.5 and Dry nose J34.89 [facility] [id number] [place] [address] 07040- 2580 Mar, Palpitations R00.2 ; Syncope R55 ; DM (diabetes mellitus) E11.9 and Obesity E66.9 [place] [id number] [address]- 9631 Mar, [facility] [address] [address]- 1932 Mar, [facility] [id number] [address]- 8578 Mar, [facility] [id number] [place] [address] 36422- 9377 Feb, [facility] [id number] [place] [address] 06477- 8213 Jan, [facility] [id number] [place] [address] 09478- 4525 Jan, [facility] [id number] [place] [address] 17044- 1476 Jan, Falls E888.9 and Sinusitis 473.9 [facility] [id number] [place] [address] 44394- 4560 Dec, [facility] [id number] [place] [address] 53775- 0468 Dec, [facility] [id number] [place] [address] 83016- 5738 Dec, [facility] [address] [address]- 6750 Dec, [facility] [address] [address]- 0813 Dec, Diabetes mellitus without mention of complication, type II or unspecified type, not stated as uncontrolled 250.00 and Shortness of breath 786.05 [facility] [address] [address]- 9266 Dec, [facility] [address] [address]- 1843 Nov, [facility] [address] [address]- 3044 Nov, [facility] [id number] [place] [address] 80529- 3970 Oct, Restrictive lung disease 518.89 [facility] [id number] [place] [address] 511905- 2873 Oct, [facility] [id number] [place] [address] 276858- 0217 Oct, Shortness of breath 786.05 [facility] [id number] [place] [address] 51462- 9291 September, Other nonspecific abnormal finding of lung field 793.19 ; Diabetes mellitus without mention of complication, type II or unspecified type, not stated as uncontrolled 250.00 ; Hyperlipidemia LDL goal < 100 272.4 ; Narcolepsy, with cataplexy 347.01 ; Shortness of breath 786.05 and Chest pain 786.50 [facility] [id number] [place] [address] 33539- 6760 Aug, [facility] [id number] [place] [address] 43254- 2283 Aug, [facility] [id number] [place] [address] 72270- 6592 Jun, [facility] [id number] [place] [address] 54320- 2146 Jun, [facility] [id number] [place] [address] 17132- 7735 Jun, [facility] [id number] [place] [address] 81640- 4247 Jun, [facility] [id number] [place] [address] 12440- 1520 Jun, [facility] [id number] [place] [address] 771042- 7259 Jun, [facility] [id number] [place] [address] 01080- 0137 Jun, [facility] [place] [facility] [address] [id number] [place] [address]- 1409 Jun, [facility] [place] [facility] [address] [id number] [place] [address]- 1959 May, [facility] [place] [facility] [address] [id number] [place] [address]- 9638 May, [facility] [place] [facility] [address] [id number] [place] [address]- 4269 Apr, [facility] [place] [facility] [address] [id number] [place] [address]- 8132 Apr, [facility] [place] [facility] [address] [id number] [place] [address]- 2824 Mar, [facility] [place] [facility] [address] [id number] [place] [address]- 7096 Mar, [facility] [place] [facility] [address] [id number] [place] [address]- 6407 Mar, [facility] [place] [facility] [address] [id number] [place] [address]- 0103 Mar, [facility] [place] [facility] [address] [id number] [place] [address]- 0915 Nov, [facility] [place] [facility] [address] [id number] [place] [address]- 8432 Nov, [facility] [place] [facility] [address] [id number] [place] [address]- 5950 Nov, [facility] [place] [facility] [address] [id number] [place] [address]- 7530 Nov, [facility] [place] [facility] [address] [id number] [place] [address]- 5289 Oct, [facility] [place] [facility] [address] [id number] [place] [address]- 3236 Oct, [facility] [place] [facility] [address] [id number] [place] [address]- 8058 24 Oct, 2013 [facility] [place] [facility] [address] [id number] [place] [address]- 7180 Oct, [facility] [place] [facility] [address] [id number] [place] [address]- 4730 Oct, [facility] [place] [facility] [address] [id number] [place] [address]- 6668 Oct, [facility] [place] [facility] [address] [id number] [place] [address]- 8842 Oct, [facility] [place] [facility] [address] [id number] [place] [address]- 1773 Oct, [facility] [place] [facility] [address] [id number] [place] [address] Oct, [facility] [place] [facility] [address] [id number] [place] [address] Oct, [facility] [place] [facility] [address] [id number] [place] [address] September, [facility] [place] [facility] [address] [id number] [place] [address] September, [facility] [place] [facility] [address] [id number] [place] [address] Aug, [facility] [place] [facility] [address] [id number] [place] [address] Aug, [facility] [place] [facility] [address] [id number] [place] [address] Aug, [facility] [place] [facility] [address] [id number] [place] [address] Aug, [facility] [place] [facility] [address] [id number] [place] [address] Aug, [facility] [place] [facility] [address] [id number] [place] [address] Aug, [facility] [place] [facility] [address] [id number] [place] [address] Jul, [facility] [place] [facility] [address] [id number] [place] [address] Jul, [facility] [place] [facility] [address] [id number] [place] [address] Jul, [facility] [place] [facility] [address] [id number] [place] [address] Jul, [facility] [place] [facility] [address] [id number] [place] [address] Jul, [facility] [place] [facility] [address] [id number] [place] [address] Jul, [facility] [place] [facility] [address] [id number] [place] [address] Jul, [facility] [place] [facility] [address] [id number] [place] [address] Jul, [facility] [place] [facility] [address] [id number] [place] [address] Jul, [facility] [place] [facility] [address] [id number] [place] [address] Jul, [facility] [place] [facility] [address] [id number] [place] [address] Jul, [facility] [place] [facility] [address] [id number] [place] [address] 19 Jul, 2013 [facility] [place] [facility] [address] [id number] [place] [address] 19 Jul, 2013 [facility] [place] [facility] [address] [id number] [place] [address] 14 Jul, 2013 [facility] [place] [facility] [address] [id number] [place] [address] 14 Jul, 2013 [facility] [place] [facility] [address] [id number] [place] [address] Jul, [facility] [facility] [address] [id number] [place] [address] Jun, [facility] [place] [facility] [address] [id number] [place] [address] Jun, [facility] [place] [facility] [address] [id number] [place] [address] Jun, [facility] [place] [facility] [address] [id number] [place] [address] Jun, [facility] [place] [facility] [address] [id number] [place] [address] Jun, [facility] [place] [facility] [address] [id number] [place] [address] Jun, [facility] [place] [facility] [address] [id number] [address] Jun, [facility] [place] [facility] [address] [id number] [place] [address] Jun, [facility] [place] [facility] [address] [id number] [address] Jun, [facility] [place] [facility] [address] [facility] [id number] [place] [address] Jun, [facility] [place] [facility] [address] [facility] [id number] [place] [address] Jun, [facility] [place] [facility] [address] [id number] [place] [address] 18 Jun, 2013 [facility] [place] [facility] [address] [id number] [place] [address] 14 Jun, 2013 [facility] [place] [facility] [address] [id number] [place] [address] 13 Jun, 2013 [facility] [place] [facility] [address] [facility] [id number] [place] [address]- [address] 13 Jun, 2013 [facility] [place] [facility] [address] [id number] [place] [address]- [address]26 13 Jun, 2013 [facility] [place] [facility] [address] [id number] [place] [address] 13 Jun, 2013 [facility] [place] [facility] [address] [facility] [id number] [place] [address]- [address]676 12 Jun, 2013 [facility] [place] [facility] [address] [id number] [place] [address] 12 Jun, 2013 [facility] [place] [facility] [address] [id number] [place] [address] Jun, 2013 [facility] [place] [facility] [address] [facility] [id number] [place] [address] Jun, 2013 [facility] [place] [facility] [address] [facility] [id number] [place] [address]- [address] 10 Jun, 2013 [facility] [place] [facility] [address] [facility] [id number] [place] [address]- [address] 07 Jun, 2013 [facility] [place] [facility] [address] [facility] [id number] [place] [address]- [address] 07 Jun, 2013 [facility] [place] [facility] [address] [facility] [id number] [place] [address]- [address] 06 Jun, 2013 [facility] [place] [facility] [address] [facility] [id number] [place] [address] 25[address] Jun, 2013 [facility] [place] [facility] [address] [facility] [id number] [place] [address]- [address] Jun, 2013 [facility] [place] [facility] [address] [facility] [id number] [place] [address] Jun, 2013 [facility] [place] [facility] [address] [facility] [id number] [place] [address]- [address]46 Jun, 2013 [facility] [place] [facility] [address] [facility] [id number] [place] [id number] Jun, [facility] [place] [facility] [address] [id number] [place] [address] May, [facility] [place] [facility] [address] [id number] [place] [address] May, [facility] [place] [facility] [address] [id number] [place] [address] May, [facility] [place] [facility] [address] [id number] [place] [address]85 May, [facility] [place] [facility] [address] [id number] [place] [address]- [address] May, [facility] [place] [facility] [address] [id number] [place] [address]- [address] May, [facility] [place] [facility] [address] [id number] [place] [address]- 1702 May, [facility] [place] [facility] [address] [id number] [place] [address]- [address] May, [facility] [place] [facility] [address] [id number] [place] [address]- [address] May, [facility] [place] [facility] [address] [id number] [place] [address]- [address] May, [facility] [place] [facility] [address] [id number] [place] [address] May, [facility] [place] [facility] [address] [id number] [place] [address] May, [facility] [place] [facility] [address] [id number] [place] [address]- 93[address] May, [facility] [place] [facility] [address] [id number] [place] [address]- [address]49 May, [facility] [place] [facility] [address] [id number] [place] [address]- 8[address] May, [facility] [place] [facility] [address] [facility] [id number] [place] [address] Apr, [facility] [address] [id number] [address] [address] Apr, [facility] [address] [id number] Dec, [facility] [id number] Nov, [facility] [id number] [address] [address] May, [facility] [id number] [address] Apr, [facility] [id number] [address] Apr, [facility] [address] [id number] [address] Apr, [facility] [address] [id number] [address] Apr, IMMUNIZATIONS No Known Immunizations SOCIAL HISTORY Never Assessed REASON FOR VISIT breast pain causing shortness of breath JStrasserRN PLAN OF CARE VITAL SIGNS Height 64 in 2018-01-04 Weight 193.6 lbs 2018-01-04 Temperature 98.5 degrees Fahrenheit 2018-01-04 Heart Rate 95 bpm 2018-01-04 Respiratory Rate 20 2018-01-04 BMI 33.23 kg/m2 2018-01-04 Blood pressure systolic 120 mmHg 2018-01-04 Blood pressure diastolic 80 mmHg 2018-01-04 MEDICATIONS Medication Instructions Dosage Frequency Start Date End Date Duration Status Blood Glucose Monitor System w/Device DX- E11.65 3 times a day test 3 times per day 8h Nov, Active ReliOn Blood Glucose Test - subcutaneously 4 times a day DX: E11.65 test blood sugar September, Active Lancets - subcutaneously 4 times a day DX: E11.65 test blood sugar September Active Proventil HFA 108 (90 Base) MCG/ACT Inhalation every 4 hrs 2 puffs as needed 4h Dec, Active Diclofenac Sodium 75 MG Orally Twice a day 1 tablet with food or milk 12h 25 Dec, 2017 Feb, 30 day(s) Active NovoLog Flexpen 100 UNIT/ML Subcutaneous 3 times a day 40 units 8h Dec, Active Gabapentin 300 MG Orally Three times a day 3 capsules 8h Mar, 30 days Active Atorvastatin Calcium 40 mg Orally Once a day 1 tablet 24h 20 Jun, 2017 Active Levemir Flexpen 100 unit/mL (3 mL) subcutaneous 2 times a day 60 units 12h Aug, Active Famotidine 20 mg Orally twice a day 1 tablet at bedtime 12h Active Pen Randolph 32G X 4 MM as directed Dec, 90 days Active RESULTS No Results PROCEDURES No Known procedures INSTRUCTIONS MEDICATIONS ADMINISTERED No Known Medications MEDICAL (GENERAL) HISTORY Type Description Date Medical History asthma Medical History type II diabetes Medical History sleep apnea Medical History narcolepsy Surgical History hysterectomy, partial Hospitalization History [facility] 02/27/17
--- OUTSIDE RECORDS SUMMARY | 2018-03-08 22:48 | XMS REPORT ---
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 Name Role Phone ISIDORO BAILON Unavailable PROBLEMS Type Condition ICD9-CM Code PPG48-GE Code Onset Dates Condition Status SNOMED Code Problem Right carpal tunnel syndrome G56.01 Active 62979238 Problem Gastroesophageal reflux disease with esophagitis K21.0 Active 238259844 Problem Falls frequently R29.6 Active 685851026 Problem Porokeratosis Q82.8 Active 413501567 Problem Posterior subcapsular age-related cataract of both eyes H25.043 Active 8087800 Problem Non-alcoholic fatty liver disease K76.0 Active 923097781 Problem Delayed gastric emptying K30 Active 122200198 Problem Pain in left foot M79.672 Active 3934425 Problem Other chronic pain G89.29 Active 88115334 Problem Tarsal tunnel syndrome of left side G57.52 Active 79047123 Problem Obesity E66.9 Active 252825815 Problem Hypermetropia, bilateral H52.03 Active 52560384 Problem Type 2 diabetes mellitus with hyperglycemia E11.65 Active 72129468 Problem Nuclear cataract of both eyes H25.13 Active 28845017 Problem Presbyopia OU H52.4 Active 12961631 Problem Obstructive sleep apnea G47.33 Active 90443747 Problem Shortness of breath R06.02 Active 287925213 Problem Type 2 diabetes mellitus with diabetic polyneuropathy E11.42 Active 11494050 Problem Lung nodule R91.1 Active 195308972 Problem Mixed hyperlipidemia E78.2 Active 235102980 Problem Primary narcolepsy with cataplexy G47.411 Active 774196553 ALLERGIES No Information ENCOUNTERS Encounter Location Date Diagnosis [facility] [address] [facility] [id number] [address] Jan, Type 2 diabetes mellitus with hyperglycemia E11.65 [facility] [address] [place] [id number] [place] [address] 45400- 6146 Dec, Chest pain on breathing R07.[address] [facility] [id number] [place] [address] 97314 -4433 Dec, Chest pain on breathing R07.1 [facility] [address] [place] [id number] [place] [address] 09074- 9380 Dec, Well woman exam Z01.419 ; Screening for breast cancer Z12.31 and Screening for colon cancer Z12.11 [facility] [id number] [place] [address] 75196- 2386 Dec, [facility] [address] [place] [id number] [place] [address] 66071- 1485 Dec, Type 2 diabetes mellitus with hyperglycemia E11.65 ; Mixed hyperlipidemia E78.2 and Gastroesophageal reflux disease with esophagitis K21.0 [facility] [id number] [place] [address] 98594- 1633 Nov, Type 2 diabetes mellitus with hyperglycemia E11.65 and Mixed hyperlipidemia E78.2 [facility] [address] [id number] [place] [address] 02653- 4287 Nov, [facility] [id number] [place] [address] 02930- 5436 Oct, [facility] [id number] [place] [address] 55846- 9815 Oct, [facility] [id number] [place] [address] 23901- 8692 September, [facility] [id number] [place] [address] 90884- 0364 September, Type 2 diabetes mellitus with hyperglycemia E11.65 [facility] [id number] [place] [address] 47664- 8861 September, Type 2 diabetes mellitus with hyperglycemia E11.65 [facility] [id number] [place] [address] 30338- 0335 September, Porokeratosis Q82.8 and Type 2 diabetes mellitus with diabetic polyneuropathy E11.[address] [facility] [place] [address] 37302 -7220 Aug, Seasonal allergic rhinitis, unspecified trigger J30.2 [place] [address] 80288- 5421 Aug, [place] [address] 36217- 0011 Aug, Bilateral low back pain without sciatica M54.5 [facility] [address] [id number] Aug, Dental examination V72.2 and Dental examination Z01.[address] 46531- 6931 Aug, Dental examination Z01.20 and Dental caries K02.9 [place] [address] 83259- 0531 Aug, Obstructive sleep apnea G47.33 ; Obesity E66.9 ; Type 2 diabetes mellitus with hyperglycemia E11.65 ; Palpitations R00.2 and Corns and callosities L84 [place] [address] 76453- 7086 Jul, [place] [address] 75134- 6787 Jul, [place] [address] 99691- 2710 Jun, Type 2 diabetes mellitus with hyperglycemia E11.65 ; Colon cancer screening Z12.11 ; Mixed hyperlipidemia E78.2 ; Non-alcoholic fatty liver disease K76.0 ; Gastroesophageal reflux disease with esophagitis K21.0 and Pain of upper abdomen R10.10 [place] [address] 50926- 2069 Jun, Falls frequently R29.6 [facility] [place] [address] [address] [place] [address] 77504 -9238 May, Infection of nose J34.89 [facility] [address] [place] [id number] [place] [address] 25423- 6681 May, Bilateral low back pain without sciatica M54.5 [facility] [address] [id number] [place] [address] 97295- 2171 May, Type 2 diabetes mellitus with diabetic polyneuropathy E11.42 ; Obstructive sleep apnea G47.33 and Type 2 diabetes mellitus with hyperglycemia E11.65 [facility] [address] [place] [id number] [place] [address] 02971- 9768 Apr, Bilateral low back pain without sciatica M54.5 [place] [address] [id number] [place] [address] 09561- 2879 Apr, Mixed hyperlipidemia E78.2 and Type 2 diabetes mellitus with hyperglycemia E11.65 [place] [address] [id number] [place] [address] 83852- 5889 Apr, Type 2 diabetes mellitus with diabetic polyneuropathy E11.42 [place] [address] [place] [id number] [place] [address] 38798- 5591 Apr, [place] [address] [place] [id number] [place] [address] 26924- 2850 Apr, Skin lesion of left arm L98.9 and Skin lesion of left leg L98.9 [place] [address] [place] [address] 57924- 3699 Mar, Bilateral low back pain without sciatica M54.5 [facility] [address] [id number] [place] [address] 97019- 6323 Mar, Plantar fasciitis of left foot M72.2 ; Bursitis of left foot M71.572 and Type 2 diabetes mellitus with diabetic polyneuropathy E11.42 [facility] [address] [place] [address] 80063- 5256 Feb, Non-alcoholic fatty liver disease K76.0 ; Keratoacanthoma L85.8 ; Seborrheic keratosis L82.1 ; Type 2 diabetes mellitus with hyperglycemia E11.65 and Nuclear cataract of both eyes H25.13 [facility] [address] [id number] Feb, [facility] [address] [id number] [place] [address] 75847- 9132 Feb, [facility] [address] 00564- 8959 Feb, [place] [address] 45637- 1409 Feb, Type 2 diabetes mellitus with hyperglycemia E11.65 ; Back muscle spasm M62.830 and Encounter for immunization Z23 [place] [address] 04847- 7335 Jan, Plantar fasciitis of left foot M72.2 [place] [address] 06403- 5275 Dec, [place] [address] 92998- 0696 Dec, Plantar fasciitis of left foot M72.2 and Tarsal tunnel syndrome of left side G57.52 [facility] [address] [place] [id number] [place] [address] 38594- 6133 Dec, [facility] [id number] [place] [address] 38019 -0555 Nov, Mary Jane rash of groin B37.89 and Rash and nonspecific skin eruption R21 [facility] [address] 41144- 5384 Nov, [facility] [address] 24696- 1578 Oct, Type 2 diabetes mellitus with hyperglycemia E11.65 and Mixed hyperlipidemia E78.2 [place] [address] [place] [id number] [place] [address]- 9536 Oct, [facility] [id number] [place] [address] 82749- 5524 Oct, Chest pain, unspecified R07.9 ; Palpitations R00.2 ; Syncope R55 and Mixed hyperlipidemia E78.2 [facility] [address] [place] [id number] [place] [address] 36688- 7611 Oct, Plantar fasciitis, bilateral M72.2 and Type 1 diabetes mellitus with diabetic neuropathy E10.40 [facility] [address] [place] [id number] [place] [address] 81782- 4641 Oct, [facility] [address] [place] [id number] [place] [address] 85649- 2388 September, Type 2 diabetes mellitus with hyperglycemia E11.65 [place] [address] [place] [id number] [place] [address] 33994- 0776 September, Type 2 diabetes mellitus with hyperglycemia E11.65 ; Type 2 diabetes mellitus with diabetic polyneuropathy E11.42 ; Gastroesophageal reflux disease with esophagitis K21.0 and Headache, unspecified headache type R51 [facility] [address] [place] [id number] [place] [address] 75397- 2185 September, [facility] [id number] [place] [address] 87994- 1484 September, [facility] [address] [place] [id number] [place] [address] 51400- 1795 September, [facility] [address] [id number] [place] [address] 83312- 1555 September, Other chest pain R07.89 ; Heart palpitations R00.2 ; Mixed hyperlipidemia E78.2 and Obesity E66.9 [facility] [address] [place] [id number] [place] [address] 16101- 9978 Aug, [facility] [id number] [place] [address] 41413- 1778 Aug, Type 2 diabetes mellitus with diabetic polyneuropathy E11.42 and Type 2 diabetes mellitus with hyperglycemia E11.65 [facility] [address] [address]- 2732 Aug, [facility] [address] [address]- 5386 Aug, [facility] [address] [address]- 6635 Aug, [facility] [address] [address]- 8637 Aug, Type 2 diabetes mellitus with hyperglycemia E11.65 [facility] [address] [place] [address]- 2736 Aug, [facility] [address] [address]- 3954 Jul, Type 2 diabetes mellitus with diabetic polyneuropathy E11.42 [facility] [address] [address]- 4296 Jul, Type 2 diabetes mellitus with hyperglycemia E11.65 [facility] [address] [address]- 7698 Jul, [facility] [address] [address]- 4266 Jul, [facility] [address] [address]- 1696 Jul, [facility] [address] [address]- 1376 Jul, Type 2 diabetes mellitus with diabetic polyneuropathy E11.42 and Type 2 diabetes mellitus with hyperglycemia E11.65 [facility] [address] [place] [id number] [address]- 5542 Jun, Obstructive sleep apnea G47.33 [facility] [address] [address]- 4148 Jun, Type 2 diabetes mellitus with diabetic polyneuropathy E11.42 ; Primary narcolepsy with cataplexy G47.411 ; Abdominal bloating R14.0 ; Other chest pain R07.89 and Vision problems H54.7 [facility] [address] [place] [id number] [place] [address] 73305- 4030 Jun, [facility] [address] [id number] [place] [address] 31447- 7866 May, [facility] [address] 25904- 2127 Apr, [facility] [address] 92545- 8290 Apr, Plantar fasciitis of left foot M72.2 [facility] [address] 24793- 8553 Mar, [facility] [address] 29764- 5441 Mar, Plantar fasciitis of left foot M72.2 and Type 2 diabetes mellitus with diabetic polyneuropathy E11.42 [place] [address] 92422- 9012 Feb, Type 2 diabetes mellitus with hyperglycemia E11.65 ; Mixed hyperlipidemia E78.2 and Encounter for immunization Z23 [facility] [address] [place] [id number] [place] [address] 17659- 5517 Feb, [facility] [address] [place] [id number] [place] [address] 97960- 7139 Feb, [facility] [address] [place] [id number] [place] [address] 28922- 8044 Feb, Type 2 diabetes mellitus with hyperglycemia E11.65 [facility] [address] 72468- 2553 Feb, Type 2 diabetes mellitus with hyperglycemia E11.65 [facility] [address] 20596- 3909 Jan, [facility] [address] [address]- 1359 Dec, Pain in left foot M79.672 ; Other chronic pain G89.29 ; Type 2 diabetes mellitus with hyperglycemia E11.65 ; Obstructive sleep apnea G47.33 ; Falls frequently R29.6 ; Mixed hyperlipidemia E78.2 and Gastroesophageal reflux disease with esophagitis K21.0 [facility] [address] [id number] [place] [address] 72960- 3872 Nov, [facility] [address] [id number] [place] [address] 52353- 4946 Oct, Type 2 diabetes mellitus with diabetic polyneuropathy E11.42 [facility] [address] [place] [id number] [place] [address] 56743- 5214 Oct, [facility] [address] [id number] [place] [address] 52218- 5046 Oct, [facility] [id number] [place] [address] 28507- 3162 September, [facility] [address] [id number] [place] [address] 87845- 8481 September, [facility] [id number] [place] [address] 15557- 0528 September, [facility] [address] [place] [address] 51519- 9793 September, [facility] [id number] [place] [address] 55532- 9536 September, [facility] [id number] [place] [address] 29420- 8719 Aug, Type 2 diabetes mellitus with hyperglycemia E11.65 ; Mixed hyperlipidemia E78.2 and Right carpal tunnel syndrome G56.01 [facility] [address] [id number] [place] [address] 57097- 0184 Aug, [facility] [id number] [place] [address] 66551- 7656 Jul, [facility] [address] [id number] [place] [address] 70281- 7808 Jun, [facility] [address] [place] [id number] [place] [address] 19515- 5156 Jun, [facility] [address] [id number] [place] [address] 51544- 0092 May, [facility] [address] [id number] [place] [address] 67211- 7250 May, [facility] [address] [place] [id number] [place] [address] 06640- 6836 May, Type 2 diabetes mellitus with hyperglycemia E11.65 and Falls E888.9 [facility] [address] [place] [id number] [place] [address] 38296- 2640 Apr, Type 2 diabetes mellitus with hyperglycemia E11.65 [facility] [address] [id number] [place] [address] 08594- 6886 Apr, [facility] [address] [place] [id number] [place] [address] 55697- 5298 Apr, Type 2 diabetes mellitus with hyperglycemia E11.65 [facility] [address] [place] [id number] [place] [address] 63098- 6077 Apr, [facility] [address] [place] [id number] [place] [address] 41216- 0640 Mar, Type 2 diabetes mellitus with diabetic polyneuropathy E11.42 ; Bilateral low back pain without sciatica M54.5 and Dry nose J34.89 [facility] [address] [place] [id number] [place] [address] 76357- 7255 Mar, Palpitations R00.2 ; Syncope R55 ; DM (diabetes mellitus) E11.9 and Obesity E66.9 [facility] [address] [id number] [place] [address] 36284- 1297 Mar, [facility] [address] [address]- 7368 Mar, [facility] [address] [place] [id number] [place] [address] 89996- 5808 Mar, [facility] [id number] [address]- 1598 Feb, [facility] [address] [id number] [place] [address] 60528- 6588 Jan, [facility] [id number] [place] [address] 15166- 7498 Jan, [facility] [address] [id number] [place] [address] 05242- 0944 Jan, Falls E888.9 and Sinusitis 473.9 [facility] [address] [place] [id number] [place] [address] 90478- 7691 Dec, [facility] [id number] [place] [address] 54132- 1362 Dec, [facility] [address] [place] [address] 47320- 7427 Dec, [facility] [address] [place] [address] 50934- 8760 Dec, [facility] [address] [address]- 3007 Dec, Diabetes mellitus without mention of complication, type II or unspecified type, not stated as uncontrolled 250.00 and Shortness of breath 786.05 [facility] [address] [address]- 9113 Dec, [facility] [address] [place] [id number] [place] [address] 99199- 2864 Nov, [facility] [address] [address]- 6732 Nov, [facility] [address] [id number] [place] [address] 95734- 3246 Oct, Restrictive lung disease 518.89 [facility] [address] [id number] [place] [address] 394318- 0775 Oct, [facility] [address] [id number] [place] [address] 814679- 9329 Oct, Shortness of breath 786.05 [facility] [address] [id number] [place] [address] 99668- 4223 September, Other nonspecific abnormal finding of lung field 793.19 ; Diabetes mellitus without mention of complication, type II or unspecified type, not stated as uncontrolled 250.00 ; Hyperlipidemia LDL goal < 100 272.4 ; Narcolepsy, with cataplexy 347.01 ; Shortness of breath 786.05 and Chest pain 786.50 [facility] [address] [place] [id number] [place] [address] 59179- 7447 Aug, [facility] [address] [place] [id number] [place] [address] 08884- 6339 Aug, [facility] [address] [place] [id number] [place] [address] 12242- 0970 Jun, [facility] [address] [place] [id number] [place] [address] 41544- 0161 Jun, [facility] [address] [place] [id number] [place] [address] 59713- 7492 Jun, [facility] [address] [place] [id number] [place] [address] 09840- 7909 Jun, [facility] [address] [id number] [place] [address] 35396- 6421 Jun, [facility] [address] [place] [id number] [place] [address] 61347- 1387 Jun, [facility] [address] [place] [id number] [place] [address] 21468- 9737 Jun, [facility] [address] [place] [address]- 3658 Jun, [facility] [place] [facility] [address] [id number] [place] [address]- 0405 May, [facility] [place] [facility] [address] [id number] [place] [address]- 2246 May, [facility] [place] [facility] [address] [id number] [place] [address]- 1279 Apr, [facility] [place] [facility] [address] [id number] [place] [address]- 3542 Apr, [facility] [place] [facility] [address] [id number] [place] [address]- 3733 Mar, [facility] [place] [facility] [address] [id number] [place] [address]- 0733 Mar, [facility] [place] [facility] [address] [id number] [place] [address]- 3810 Mar, [facility] [place] [facility] [address] [id number] [place] [address]- 0433 Mar, [facility] [place] [facility] [address] [id number] [place] [address]- 1873 Nov, [facility] [place] [facility] [address] [id number] [place] [address]- 6293 Nov, [facility] [place] [facility] [address] [id number] [place] [address]- 0186 Nov, [facility] [place] [facility] [address] [id number] [place] [address]- 6153 Nov, [facility] [place] [facility] [address] [id number] [place] [address]- 7621 Oct, [facility] [place] [facility] [address] [id number] [place] [address]- 8547 Oct, [facility] [place] [facility] [address] [id number] [place] [address]- 3671 Oct, [facility] [place] [facility] [address] [id number] [place] [address]- 4549 Oct, [facility] [place] [facility] [address] [id number] [place] [address]- 5180 Oct, [facility] [place] [facility] [address] [id number] [place] [address] Oct, [facility] [place] [facility] [address] [id number] [place] [address] Oct, [facility] [place] [facility] [address] [id number] [place] [address] Oct, [facility] [place] [facility] [address] [id number] [place] [address] Oct, [facility] [place] [facility] [address] [id number] [place] [address] Oct, [facility] [place] [facility] [address] [id number] [place] [address] September, [facility] [place] [facility] [address] [id number] [place] [address] September, [facility] [place] [facility] [address] [id number] [place] [address] Aug, [facility] [place] [facility] [address] [id number] [place] [address] Aug, [facility] [place] [facility] [address] [id number] [place] [address] Aug, [facility] [place] [facility] [address] [id number] [place] [address] Aug, [facility] [place] [facility] [address] [id number] [place] [address] Aug, [facility] [place] [facility] [address] [id number] [place] [address] Aug, [facility] [place] [facility] [address] [id number] [place] [address] Jul, [facility] [place] [facility] [address] [id number] [place] [address] Jul, [facility] [place] [facility] [address] [id number] [place] [address] Jul, [facility] [place] [facility] [address] [id number] [place] [address] Jul, [facility] [place] [facility] [address] [id number] [place] [address] Jul, [facility] [place] [facility] [address] [id number] [place] [address] Jul, [facility] [place] [facility] [address] [id number] [place] [address] Jul, [facility] [place] [facility] [address] [id number] [place] [address] Jul, [facility] [place] [facility] [address] [id number] [place] [address] Jul, [facility] [place] [facility] [address] [id number] [place] [address] Jul, [facility] [place] [facility] [address] [id number] [place] [address] Jul, [facility] [place] [facility] [address] [id number] [place] [address] Jul, [facility] [place] [facility] [address] [id number] [place] [address] 19 Jul, 2013 [facility] [place] [facility] [address] [id number] [place] [address] 14 Jul, 2013 [facility] [place] [facility] [address] [id number] [place] [address] 14 Jul, 2013 [facility] [place] [facility] [address] [id number] [place] [address] 12 Jul, 2013 [facility] [place] [facility] [address] [id number] [place] [address] Jun, [facility] [place] [facility] [address] [id number] [place] [address] Jun, [facility] [place] [facility] [address] [id number] [place] [address] Jun, [facility] [place] [facility] [address] [id number] [place] [address] Jun, [facility] [place] [facility] [address] [id number] [place] [address] Jun, [facility] [place] [facility] [address] [id number] [place] [address] Jun, [facility] [place] [facility] [address] [facility] [id number] [place] [address] Jun, [facility] [place] [facility] [address] [id number] [place] [address] Jun, [facility] [place] [facility] [address] [id number] [place] [address] Jun, [facility] [place] [facility] [address] [facility] [id number] [place] [address] Jun, [facility] [place] [facility] [address] [facility] [id number] [place] [address] Jun, [facility] [place] [facility] [address] [id number] [place] [address] 18 Jun, 2013 [facility] [place] [facility] [address] [facility] [id number] [place] [address] 14 Jun, 2013 [facility] [place] [facility] [address] [id number] [place] [address] 13 Jun, 2013 [facility] [place] [facility] [address] [facility] [id number] [place] [address] Jun, [facility] [place] [facility] [address] [id number] [place] [address] 13 Jun, 2013 [facility] [place] [facility] [address] [id number] [place] [address] 13 Jun, 2013 [facility] [place] [facility] [address] [id number] [place] [address] 12 Jun, 2013 [facility] [place] [facility] [address] [facility] [id number] [place] [address] 12 Jun, 2013 [facility] [place] [facility] [address] [id number] [place] [address]- [address] 11 Jun, 2013 [facility] [place] [facility] [address] [facility] [id number] [place] [address] 47[address] Jun, 2013 [facility] [place] [facility] [address] [facility] [id number] [place] [address] 10 Jun, 2013 [facility] [place] [facility] [address] [facility] [id number] [place] [address] Jun, 2013 [facility] [place] [facility] [address] [facility] [id number] [place] [address] 07 Jun, 2013 [facility] [place] [facility] [address] [facility] [id number] [place] [address] Jun, 2013 [facility] [place] [facility] [address] [facility] [id number] [address] Jun, 2013 [facility] [place] [facility] [address] [facility] [id number] [address] Jun, 2013 [facility] [place] [facility] [address] [facility] [id number] [place] [address] Jun, 2013 [facility] [place] [facility] [address] [facility] [id number] [place] [address] Jun, 2013 [facility] [place] [facility] [address] [facility] [id number] [address] Jun, 2013 [facility] [place] [facility] [address] [facility] [id number] [address] May, [facility] [address] [id number] [place] [address] May, [facility] [place] [facility] [address] [id number] [place] [address] May, [facility] [place] [facility] [address] [id number] [place] [address] May, [facility] [place] [facility] [address] [id number] [place] [address] May, [facility] [place] [facility] [address] [id number] [place] [address]- [address] May, [facility] [place] [facility] [address] [id number] [place] [address] May, [facility] [place] [facility] [address] [id number] [place] [address] May, [facility] [place] [facility] [address] [id number] [place] [address] May, [facility] [place] [facility] [address] [id number] [place] [address]697 May, [facility] [place] [facility] [address] [id number] [place] [address]- [address] May, [facility] [place] [facility] [address] [id number] [place] [address]- [address] May, [facility] [place] [facility] [address] [id number] [place] [address]- 9816 May, [facility] [place] [facility] [address] [id number] [place] [address] May, [facility] [place] [facility] [address] [id number] [place] [address]- [address] May, [facility] [place] [facility] [address] [id number] [place] [address] Apr, [facility] [place] [facility] [address] [id number] [address] Apr, [facility] [address] [id number], [place] [address] Dec, [facility] [address] [id number], [place] [address] Nov, [facility] [address] [id number], [place] [address] May, [facility] [address] [id number], [place] [address] Apr, [facility] [id number], [place] [address] Apr, [facility] [id number], [place] [address] Apr, [facility] [address] [id number] [address] [address] Apr, IMMUNIZATIONS No Known Immunizations SOCIAL HISTORY Never Assessed REASON FOR VISIT Xray (walk-in) MHill RT(R) PLAN OF CARE VITAL SIGNS MEDICATIONS Unknown Medications RESULTS Name Result Date Reference Range Xray : Chest 2 View (IN HOUSE) 2018-01-06 PROCEDURES Procedure Date Ordered Result Body Site X-RAY EXAM CHEST 2 VIEWS Jan 06, 2018 INSTRUCTIONS MEDICATIONS ADMINISTERED No Known Medications MEDICAL (GENERAL) HISTORY Type Description Date Medical History asthma Medical History type II diabetes Medical History sleep apnea Medical History narcolepsy Surgical History hysterectomy, partial Hospitalization History Chest [facility] 02/27/17
--- OUTSIDE RECORDS SUMMARY | 2018-03-08 22:49 | XMS REPORT ---
Author Author ERASTO FERNANDEZ [facility] Address [address] [place] [address] Care Team Providers Care Supervisor Sleeping Bag Department Name Role Phone ERASTO FERNANDEZ Unavailable PROBLEMS Type Condition ICD9-CM Code UMD22-RW Code Onset Dates Condition Status SNOMED Code Problem Right carpal tunnel syndrome G56.01 Active 42914720 Problem Gastroesophageal reflux disease with esophagitis K21.0 Active 477983270 Problem Falls frequently R29.6 Active 623358621 Problem Porokeratosis Q82.8 Active 108476599 Problem Posterior subcapsular age-related cataract of both eyes H25.043 Active 2535927 Problem Non-alcoholic fatty liver disease K76.0 Active 402853076 Problem Delayed gastric emptying K30 Active 477681941 Problem Pain in left foot M79.672 Active 7361440 Problem Other chronic pain G89.29 Active 45767291 Problem Tarsal tunnel syndrome of left side G57.52 Active 51737040 Problem Obesity E66.9 Active 620027726 Problem Hypermetropia, bilateral H52.03 Active 00025904 Problem Type 2 diabetes mellitus with hyperglycemia E11.65 Active 90583274 Problem Nuclear cataract of both eyes H25.13 Active 36196733 Problem Presbyopia OU H52.4 Active 05301124 Problem Obstructive sleep apnea G47.33 Active 86623829 Problem Shortness of breath R06.02 Active 355438476 Problem Type 2 diabetes mellitus with diabetic polyneuropathy E11.42 Active 21246269 Problem Lung nodule R91.1 Active 767783542 Problem Mixed hyperlipidemia E78.2 Active 336027356 Problem Primary narcolepsy with cataplexy G47.411 Active 309754024 ALLERGIES Substance Reaction Event Type Date Status Penicillin G Sodium Unknown Drug Allergy Dec, Active Erythromycin Unknown Drug Allergy Dec, Active ENCOUNTERS Encounter Location Date Diagnosis [facility] [address] [facility] [id number] [address] Jan, Type 2 diabetes mellitus with hyperglycemia E11.65 [facility] [address] [address] Dec, Chest pain on breathing R07.1 [facility] [address], [place] [address] Dec, Chest pain on breathing R07.1 [facility] [id number] [place] [address] 04782- 6177 Dec, Well woman exam Z01.419 ; Screening for breast cancer Z12.31 and Screening for colon cancer Z12.11 [facility] [id number] [place] [address] 31628- 0100 Dec, [facility] [id number] [place] [address] 07343- 6119 Dec, Type 2 diabetes mellitus with hyperglycemia E11.65 ; Mixed hyperlipidemia E78.2 and Gastroesophageal reflux disease with esophagitis K21.0 [facility] [id number] [place] [address] 72582- 9681 Nov, Type 2 diabetes mellitus with hyperglycemia E11.65 and Mixed hyperlipidemia E78.2 [facility] [id number] [place] [address] 22339- 0481 Nov, [facility] [address], [place] [address] 7970 Oct, [facility] [id number] [place] [address] 58051- 2420 Oct, [facility] [address], [place] [address] 9360 September, [facility] [id number] [place] [address] 94512- 9550 September, Type 2 diabetes mellitus with hyperglycemia E11.65 [facility] [address], [place] [address] 9511 September, Type 2 diabetes mellitus with hyperglycemia E11.65 [facility] [id number] [place] [address] 07161- 2737 September, Porokeratosis Q82.8 and Type 2 diabetes mellitus with diabetic polyneuropathy E11.42 [facility] [id number] [place] [address] 65563 -9296 Aug, Seasonal allergic rhinitis, unspecified trigger J30.2 [facility] [address] 8[address]00- 6671 Aug, [facility] [address] 44751- 0478 Aug, Bilateral low back pain without sciatica M54.5 [facility] [id number] [place] [address] [id number] Aug, Dental examination V72.2 and Dental examination Z01.20 [facility] [id number] [place] [address] 36355- 2272 Aug, Dental examination Z01.20 and Dental caries K02.9 [id number] [place] [address] 48116- 6238 Aug, Obstructive sleep apnea G47.33 ; Obesity E66.9 ; Type 2 diabetes mellitus with hyperglycemia E11.65 ; Palpitations R00.2 and Corns and callosities L84 [facility] [id number] [place] [address] 80797- 9958 Jul, [facility] [id number] [place] [address] 21278- 2593 Jul, [facility] [id number] [place] [address] 53113- 1455 Jun, Type 2 diabetes mellitus with hyperglycemia E11.65 ; Colon cancer screening Z12.11 ; Mixed hyperlipidemia E78.2 ; Non-alcoholic fatty liver disease K76.0 ; Gastroesophageal reflux disease with esophagitis K21.0 and Pain of upper abdomen R10.10 [place] [address] [address] 0160 Jun, Falls frequently R29.6 [facility] [id number] [place] [address] 44989 -6371 May, Infection of nose J34.89 [facility] [id number] [place] [address] 12138- 3170 May, Bilateral low back pain without sciatica M54.5 [facility] [id number] [place] [address] 20992- 0428 May, Type 2 diabetes mellitus with diabetic polyneuropathy E11.42 ; Obstructive sleep apnea G47.33 and Type 2 diabetes mellitus with hyperglycemia E11.65 [facility] [id number] [place] [address] 54279- 4534 Apr, Bilateral low back pain without sciatica M54.5 [facility] [address] 80544- 3603 Apr, Mixed hyperlipidemia E78.2 and Type 2 diabetes mellitus with hyperglycemia E11.65 [facility] [id number] [place] [address] 26467- 3845 Apr, Type 2 diabetes mellitus with diabetic polyneuropathy E11.42 [facility] [id number] [place] [address] 98411- 3780 Apr, [facility] [id number] [place] [address] 13799- 0355 Apr, Skin lesion of left arm L98.9 and Skin lesion of left leg L98.9 [facility] [id number] [place] [address] 03117- 3939 Mar, Bilateral low back pain without sciatica M54.5 [facility] [id number] [place] [address] 62694- 1224 Mar, Plantar fasciitis of left foot M72.2 ; Bursitis of left foot M71.572 and Type 2 diabetes mellitus with diabetic polyneuropathy E11.42 [facility] [id number] [place] [address] 29626- 4469 Feb, Non-alcoholic fatty liver disease K76.0 ; Keratoacanthoma L85.8 ; Seborrheic keratosis L82.1 ; Type 2 diabetes mellitus with hyperglycemia E11.65 and Nuclear cataract of both eyes H25.13 [facility] [address] [id number] Feb, [facility] [address] 17952- 8894 Feb, [facility] [facility] [address] 95475- 5377 Feb, [facility] [address] 92866- 8246 Feb, Type 2 diabetes mellitus with hyperglycemia E11.65 ; Back muscle spasm M62.830 and Encounter for immunization Z23 [facility] [address] 87814- 0826 Jan, Plantar fasciitis of left foot M72.2 [place] [facility] [address] 12237- 6185 Dec, [facility] [address] 96950- 7121 Dec, Plantar fasciitis of left foot M72.2 and Tarsal tunnel syndrome of left side G57.52 [facility] [id number] [place] [address] 23248- 8212 Dec, [facility] [id number] [place] [address] 31552 -5384 Nov, Mary Jane rash of groin B37.89 and Rash and nonspecific skin eruption R21 [facility] [id number] [place] [address] 61854- 2211 Nov, [facility] [address] 26638- 8890 Oct, Type 2 diabetes mellitus with hyperglycemia E11.65 and Mixed hyperlipidemia E78.2 [facility] [id number] [place] [address] 59050- 9397 Oct, [facility] [id number] [place] [address] 76005- 2439 Oct, Chest pain, unspecified R07.9 ; Palpitations R00.2 ; Syncope R55 and Mixed hyperlipidemia E78.2 [facility] [id number] [place] [address] 44294- 2147 Oct, Plantar fasciitis, bilateral M72.2 and Type 1 diabetes mellitus with diabetic neuropathy E10.40 [facility] [id number] [place] [address] 00993- 1819 Oct, [facility] [id number] [place] [address] 56743- 7287 September, Type 2 diabetes mellitus with hyperglycemia E11.65 [facility] [id number] [place] [address] 30243- 7525 September, Type 2 diabetes mellitus with hyperglycemia E11.65 ; Type 2 diabetes mellitus with diabetic polyneuropathy E11.42 ; Gastroesophageal reflux disease with esophagitis K21.0 and Headache, unspecified headache type R51 [facility] [id number] [place] [address] 14581- 4119 September, [facility] [id number] [place] [address] 71384- 3270 September, [facility] [id number] [place] [address] 85527- 9631 September, [facility] [id number] [place] [address] 93486- 6679 September, Other chest pain R07.89 ; Heart palpitations R00.2 ; Mixed hyperlipidemia E78.2 and Obesity E66.9 [facility] [id number] [place] [address] 84361- 4121 Aug, [facility] [address], [place] [address]- 4825 Aug, Type 2 diabetes mellitus with diabetic polyneuropathy E11.42 and Type 2 diabetes mellitus with hyperglycemia E11.65 [facility] [address], [place] [address]- 0512 Aug, [facility] [address], [place] [address]- 0835 Aug, [facility] [address], [place] [address]- 3309 Aug, [facility] [id number] [place] [address] 26671- 4026 Aug, Type 2 diabetes mellitus with hyperglycemia E11.65 [facility] [address], [place] [address]- 5214 Aug, [facility] [address], [place] [address]- 5328 Jul, Type 2 diabetes mellitus with diabetic polyneuropathy E11.42 [facility] [address], [place] [address]- 9792 Jul, Type 2 diabetes mellitus with hyperglycemia E11.65 [facility] [address], [place] [address]- 5172 Jul, [facility] [address], [place] [address]- 4177 Jul, [facility] [address], [place] [address]- 7746 Jul, [facility] [address], [place] [address]- 7729 Jul, Type 2 diabetes mellitus with diabetic polyneuropathy E11.42 and Type 2 diabetes mellitus with hyperglycemia E11.65 [facility] [id number] [address]- 7429 Jun, Obstructive sleep apnea G47.33 [facility] [id number] [place] [address] 13045- 6267 Jun, Type 2 diabetes mellitus with diabetic polyneuropathy E11.42 ; Primary narcolepsy with cataplexy G47.411 ; Abdominal bloating R14.0 ; Other chest pain R07.89 and Vision problems H54.7 [facility] [id number] [place] [address] 57257- 6978 Jun, [facility] [id number] [place] [address] 61334- 5067 May, [facility] [id number] [place] [address] 06200- 6412 Apr, [facility] [id number] [place] [address] 78914- 0895 Apr, Plantar fasciitis of left foot M72.2 [facility] [id number] [place] [address] 57531- 4422 Mar, [facility] [id number] [place] [address] 74593- 0230 Mar, Plantar fasciitis of left foot M72.2 and Type 2 diabetes mellitus with diabetic polyneuropathy E11.42 [facility] [id number] [place] [address] 62791- 2946 Feb, Type 2 diabetes mellitus with hyperglycemia E11.65 ; Mixed hyperlipidemia E78.2 and Encounter for immunization Z23 [facility] [id number] [place] [address] 70991- 1616 Feb, [facility] [id number] [place] [address] 11233- 8600 Feb, [facility] [id number] [place] [address] 53784- 4916 Feb, Type 2 diabetes mellitus with hyperglycemia E11.65 [facility] [id number] [place] [address] 59865- 3720 Feb, Type 2 diabetes mellitus with hyperglycemia E11.65 [facility] [address], [place] [address]- 7465 Jan, [facility] [id number] [place] [address] 50961- 2068 Dec, Pain in left foot M79.672 ; Other chronic pain G89.29 ; Type 2 diabetes mellitus with hyperglycemia E11.65 ; Obstructive sleep apnea G47.33 ; Falls frequently R29.6 ; Mixed hyperlipidemia E78.2 and Gastroesophageal reflux disease with esophagitis K21.0 [facility] [address] [address]- 8086 Nov, [facility] [id number] [place] [address] 00001- 0094 Oct, Type 2 diabetes mellitus with diabetic polyneuropathy E11.42 [facility] [id number] [place] [address] 70628- 7494 Oct, [facility] [address] [address]- 6714 Oct, [facility] [id number] [place] [address] 01277- 6923 September, [facility] [id number] [place] [address] 98854- 5765 September, [facility] [address], [place] [address]- 9978 September, [facility] [address], [place] [address]- 8948 September, [facility] [address] [place] [address] 22434- 4718 September, [facility] [address] [place] [address] 29128- 0328 Aug, Type 2 diabetes mellitus with hyperglycemia E11.65 ; Mixed hyperlipidemia E78.2 and Right carpal tunnel syndrome G56.01 [facility] [address] [address]- 6018 Aug, [facility] [address], [place] [address]- 2626 Jul, [facility] [address], [place] [address]- 1713 Jun, [facility] [id number] [place] [address] 91834- 3876 Jun, [facility] [id number] [place] [address] 72540- 0158 May, [facility] [id number] [place] [address] 15841- 4226 May, [facility] [id number] [place] [address] 50318- 1332 May, Type 2 diabetes mellitus with hyperglycemia E11.65 and Falls E888.9 [facility] [id number] [place] [address] 24856- 4517 Apr, Type 2 diabetes mellitus with hyperglycemia E11.65 [facility] [id number] [place] [address] 81897- 0271 Apr, [facility] [id number] [place] [address] 75535- 8340 Apr, Type 2 diabetes mellitus with hyperglycemia E11.65 [facility] [id number] [place] [address] 60815- 3608 Apr, [facility] [address] [place] [address] 03199- 1617 Mar, Type 2 diabetes mellitus with diabetic polyneuropathy E11.42 ; Bilateral low back pain without sciatica M54.5 and Dry nose J34.89 [facility] [address], [place] [address]- 8235 Mar, Palpitations R00.2 ; Syncope R55 ; DM (diabetes mellitus) E11.9 and Obesity E66.9 [facility] [address], [place] [address]- 5064 Mar, [facility] [id number] [place] [address] 16066- 4615 Mar, [facility] [address] [address]- 3534 Mar, [facility] [id number] [place] [address] 19760- 1117 Feb, [facility] [id number] [place] [address] 45986- 8557 Jan, [facility] [id number] [place] [address] 47164- 3003 Jan, [facility] [id number] [place] [address] 41932- 0328 Jan, Falls E888.9 and Sinusitis 473.9 [facility] [id number] [place] [address] 84457- 7771 Dec, [facility] [id number] [place] [address] 41977- 5967 Dec, [facility] [id number] [place] [address] 93410- 6820 Dec, [facility] [id number] [place] [address] 63852- 2539 Dec, [facility] [id number] [place] [address] 22270- 3447 Dec, Diabetes mellitus without mention of complication, type II or unspecified type, not stated as uncontrolled 250.00 and Shortness of breath 786.05 [facility] [address], [place] [address]- 1048 Dec, [facility] [address], [place] [address]- 0117 Nov, [facility] [id number] [place] [address] 07349- 1290 Nov, [facility] [id number] [place] [address] 14774- 5906 Oct, Restrictive lung disease 518.89 [facility] [id number] [place] [address] 003420- 7188 Oct, [facility] [id number] [place] [address] 48636- 9439 Oct, Shortness of breath 786.05 [facility] [id number] [place] [address] 60127- 8755 September, Other nonspecific abnormal finding of lung field 793.19 ; Diabetes mellitus without mention of complication, type II or unspecified type, not stated as uncontrolled 250.00 ; Hyperlipidemia LDL goal < 100 272.4 ; Narcolepsy, with cataplexy 347.01 ; Shortness of breath 786.05 and Chest pain 786.50 [facility] [id number] [place] [address] 45859- 5082 Aug, [facility] [id number] [place] [address] 13020- 1096 Aug, [facility] [id number] [place] [address] 37018- 0443 Jun, [facility] [address] [address]- 0462 Jun, [facility] [id number] [place] [address] 58195- 5120 Jun, [facility] [id number] [place] [address] 50674- 8130 Jun, [facility] [id number] [place] [address] 02672- 6919 Jun, [facility] [id number] [place] [address] 73218- 4345 Jun, [facility] [id number] [place] [address]- 7059 Jun, [facility] [address] [id number] [place] [address]- 5260 Jun, [facility] [place] [facility] [address] [id number] [place] [address]- 0131 May, [facility] [address] [id number] [place] [address]- 4895 May, [facility] [place] [facility] [address] [id number] [place] [address]- 3091 Apr, [facility] [place] [facility] [address] [id number] [place] [address]- 8323 Apr, [facility] [place] [facility] [address] [id number] [place] [address]- 1666 Mar, [facility] [place] [facility] [address] [id number] [place] [address]- 3525 Mar, [facility] [place] [facility] [address] [id number] [place] [address]- 1894 Mar, [facility] [place] [facility] [address] [id number] [place] [address]- 6147 Mar, [facility] [place] [facility] [address] [id number] [place] [address]- 5020 Nov, [facility] [place] [facility] [address] [id number] [place] [address]- 9098 Nov, [facility] [place] [facility] [address] [id number] [place] [address]- 0619 Nov, [facility] [place] [facility] [address] [id number] [place] [address]- 9750 Nov, [facility] [place] [facility] [address] [id number] [place] [address]- 7610 Oct, [facility] [place] [facility] [address] [id number] [place] [address]- 8808 Oct, [facility] [place] [facility] [address] [id number] [place] [address]- 7108 Oct, [facility] [place] [facility] [address] [id number] [place] [address]- 1231 24 Oct, 2013 [facility] [place] [facility] [address] [id number] [place] [address]- 9448 Oct, [facility] [place] [facility] [address] [id number] [place] [address] Oct, [facility] [place] [facility] [address] [id number] [place] [address] Oct, [facility] [place] [facility] [address] [id number] [place] [address] Oct, [facility] [place] [facility] [address] [id number] [place] [address] Oct, [facility] [place] [facility] [address] [id number] [place] [address] Oct, [facility] [place] [facility] [address] [id number] [place] [address] September, [facility] [place] [facility] [address] [id number] [place] [address] September, [facility] [place] [facility] [address] [id number] [place] [address] Aug, [facility] [place] [facility] [address] [id number] [place] [address] 30 Aug, 2013 [facility] [place] [facility] [address] [id number] [place] [address] Aug, [facility] [place] [facility] [address] [id number] [place] [address] Aug, [facility] [place] [facility] [address] [id number] [place] [address] Aug, [facility] [place] [facility] [address] [id number] [place] [address] Aug, [facility] [place] [facility] [address] [id number] [place] [address] Jul, [facility] [place] [facility] [address] [id number] [place] [address] Jul, [facility] [place] [facility] [address] [id number] [place] [address] Jul, [facility] [place] [facility] [address] [id number] [place] [address] Jul, [facility] [place] [facility] [address] [id number] [place] [address] Jul, [facility] [place] [facility] [address] [id number] [place] [address] Jul, [facility] [place] [facility] [address] [id number] [place] [address] Jul, [facility] [place] [facility] [address] [id number] [place] [address] Jul, [facility] [place] [facility] [address] [id number] [place] [address] Jul, [facility] [place] [facility] [address] [id number] [place] [address] Jul, [facility] [place] [facility] [address] [id number] [place] [address] 98[address] Jul, [facility] [place] [facility] [address] [id number] [place] [address]- [address] 19 Jul, 2013 [facility] [place] [facility] [address] [id number] [place] [address]- [address] 19 Jul, 2013 [facility] [place] [facility] [address] [id number] [place] [address]- [address] 14 Jul, 2013 [facility] [place] [facility] [address] [id number] [place] [address]- [address] 14 Jul, 2013 [facility] [place] [facility] [address] [id number] [place] [address] Jul, [facility] [place] [facility] [address] [id number] [place] [address]006 Jun, [facility] [place] [facility] [address] [id number] [place] [address] 2546 Jun, [facility] [place] [facility] [address] [id number] [place] [address]99 Jun, [facility] [place] [facility] [address] [id number] [place] [address] Jun, [facility] [place] [facility] [address] [id number] [place] [address]- 57[address] Jun, [facility] [place] [facility] [address] [facility] [id number] [place] [address] Jun, [facility] [place] [facility] [address] [id number] [place] [address]- 359[address] Jun, [facility] [place] [facility] [address] [id number] [place] [address]- 6693 Jun, [facility] [place] [facility] [address] [facility] [id number] [place] [address] Jun, [facility] [place] [facility] [address] [facility] [id number] [place] [address]- 1731 Jun, [facility] [place] [facility] [address] [id number] [place] [address] 49[address] Jun, [facility] [place] [facility] [address] [id number] [place] [address]- 2543 Jun, [facility] [place] [facility] [address] [id number] [place] [address]- [address] 14 Jun, 2013 [facility] [place] [facility] [address] [facility] [id number] [place] [address]- 6566 13 Jun, 2013 [facility] [place] [facility] [address] [id number] [place] [address]- 3613 13 Jun, 2013 [facility] [place] [facility] [address] [id number] [place] [address]- 5466 13 Jun, 2013 [facility] [place] [facility] [address] [id number] [place] [address]- 9186 13 Jun, 2013 [facility] [place] [facility] [address] [facility] [id number] [place] [address]- 1586 12 Jun, 2013 [facility] [place] [facility] [address] [id number] [place] [address]- 3445 12 Jun, 2013 [facility] [place] [facility] [address] [facility] [id number] [place] [address]- 1331 Jun, 2013 [facility] [place] [facility] [address] [facility] [id number] [place] [address]- 1815 Jun, 2013 [facility] [place] [facility] [address] [facility] [id number] [place] [address]- 1743 10 Jun, 2013 [facility] [place] [facility] [address] [facility] [id number] [place] [address]- 9940 07 Jun, 2013 [facility] [place] [facility] [address] [facility] [id number] [place] [address]- 7543 07 Jun, 2013 [facility] [place] [facility] [address] [facility] [id number] [place] [address]- 1694 Jun, 2013 [facility] [place] [facility] [address] [facility] [id number], [place] [address] Jun, 2013 [facility] [place] [facility] [address] [facility] [id number] [place] [address]- [address] Jun, 2013 [facility] [place] [facility] [address] [facility] [id number] [place] [address]- 2018 Jun, 2013 [facility] [place] [facility] [address] [facility] [id number] [place] [address]- 7665 Jun, 2013 [facility] [place] [facility] [address] [facility] [id number][place] [address] Jun, [facility] [address] [id number] [place] [address]- [address] May, [facility] [place] [facility] [address] [id number] [place] [address]- 0665 May, [facility] [place] [facility] [address] [id number] [place] [address]- 0088 May, [facility] [place] [facility] [address] [id number] [place] [address]- 8643 May, [facility] [place] [facility] [address] [id number] [place] [address]- 7194 May, [facility] [place] [facility] [address] [id number] [place] [address]- 7238 May, [facility] [address] [id number] [place] [address]- 4384 May, [facility] [place] [facility] [address] [id number] [place] [address]- 8709 May, [facility] [place] [facility] [address] [id number] [place] [address]- 0806 May, [facility] [place] [facility] [address] [id number] [place] [address]- 4264 May, [facility] [place] [facility] [address] [id number] [place] [address]- 5239 May, [facility] [place] [facility] [address] [id number], [place] [address]- [address]874 May, [facility] [place] [facility] [address] [id number] [place] [address]- 9518 May, [facility] [place] [facility] [address] [id number] [place] [address]- 0620 May, [facility] [place] [facility] [address] [id number] [place] [address]- 2922 May, [facility] [place] [facility] [address] [facility] [id number], [place] [address]- [address] Apr, [facility] [address] [facility] [id number], [place] [address] 2546 Apr, [facility] [address] [facility] [id number], [place] [address]- [address]46 Dec, [facility] [address] [facility] [id number], [place] [address]- [address] Nov, [facility] [address] [facility] [id number], [place] [address]- [address]46 May, [facility] [address] [id number], [place] [address]- [address] Apr, [facility] [address] [id number], [place] [address] 2546 Apr, [facility] [address] [id number], [place] [address] 2546 Apr, [facility] [address] [facility] [id number], [place] [address]- [address] Apr, IMMUNIZATIONS No Known Immunizations SOCIAL HISTORY Never Assessed REASON FOR VISIT Well Woman Exam -- joanie jsoeph PLAN OF CARE Activity Details Follow Up 1 Year Reason: Pending Test Mammogram, Bilateral Screening VITAL SIGNS Height 64 in 2017-12-20 Weight 197.0 lbs 2017-12-20 Temperature 98.0 degrees Fahrenheit 2017-12-20 Heart Rate 80 bpm 2017-12-20 Respiratory Rate 20 2017-12-20 BMI 33.81 kg/m2 2017-12-20 Blood pressure systolic 136 mmHg 2017-12-20 Blood pressure diastolic 80 mmHg 2017-12-20 MEDICATIONS Medication Instructions Dosage Frequency Start Date End Date Duration Status Blood Glucose Monitor System w/Device DX- E11.65 3 times a day test 3 times per day 8h Nov, Active NovoLog Flexpen 100 UNIT/ML Subcutaneous 3 times a day 40 units 8h Dec, Active Lancets - subcutaneously 4 times a day DX: E11.65 test blood sugar September Active Atorvastatin Calcium 40 mg Orally Once a day 1 tablet 24h Jun, Active ReliOn Blood Glucose Test - subcutaneously 4 times a day DX: E11.65 test blood sugar September, Active Pen [place] 32G X 4 MM as directed Dec, 90 days Active Proventil HFA 108 (90 Base) MCG/ACT Inhalation every 4 hrs 2 puffs as needed 4h Dec, Active Levemir Flexpen 100 unit/mL (3 mL) subcutaneous 2 times a day 60 units 12h Aug, Active Gabapentin 300 MG Orally Three times a day 3 capsules 8h Mar, 30 days Active Famotidine 20 mg Orally twice a day 1 tablet at bedtime 12h Active RESULTS No Results PROCEDURES No Known procedures INSTRUCTIONS MEDICATIONS ADMINISTERED No Known Medications MEDICAL (GENERAL) HISTORY Type Description Date Medical History asthma Medical History type II diabetes Medical History sleep apnea Medical History narcolepsy Surgical History hysterectomy, partial Hospitalization History Chest pain-[facility] 02/27/17
--- OUTSIDE RECORDS SUMMARY | 2018-03-08 22:49 | XMS REPORT ---
Author Author RENAY HICKS [facility] Address [address] [place] [address] Care Team Providers Care Manager Programming Name Role Phone HICKSCYNTHIAAN Unavailable PROBLEMS Type Condition ICD9-CM Code VEZ46-UJ Code Onset Dates Condition Status SNOMED Code Problem Right carpal tunnel syndrome G56.01 Active 93158784 Problem Gastroesophageal reflux disease with esophagitis K21.0 Active 057891070 Problem Falls frequently R29.6 Active 046979090 Problem Porokeratosis Q82.8 Active 427324079 Problem Posterior subcapsular age-related cataract of both eyes H25.043 Active 3003014 Problem Non-alcoholic fatty liver disease K76.0 Active 617896002 Problem Delayed gastric emptying K30 Active 636182278 Problem Pain in left foot M79.672 Active 3185658 Problem Other chronic pain G89.29 Active 51758885 Problem Tarsal tunnel syndrome of left side G57.52 Active 74653867 Problem Obesity E66.9 Active 163660297 Problem Hypermetropia, bilateral H52.03 Active 54149926 Problem Type 2 diabetes mellitus with hyperglycemia E11.65 Active 85669336 Problem Nuclear cataract of both eyes H25.13 Active 43353726 Problem Presbyopia OU H52.4 Active 18649992 Problem Obstructive sleep apnea G47.33 Active 27417235 Problem Shortness of breath R06.02 Active 115187633 Problem Type 2 diabetes mellitus with diabetic polyneuropathy E11.42 Active 31219825 Problem Lung nodule R91.1 Active 638069393 Problem Mixed hyperlipidemia E78.2 Active 417914901 Problem Primary narcolepsy with cataplexy G47.411 Active 243740500 ALLERGIES No Information ENCOUNTERS Encounter Location Date Diagnosis [facility], [place] [address] [facility] [id number] [place] [address] Jan, Type 2 diabetes mellitus with hyperglycemia E11.65 [facility], [place] [address], [place] [address] Dec, Chest pain on breathing R07.1 [facility] [id number] [place] [address] 83805 -3760 Dec, Chest pain on breathing R07.1 [facility], [place] [id number] [place] [address] 47188- 7745 Dec, Well woman exam Z01.419 ; Screening for breast cancer Z12.31 and Screening for colon cancer Z12.11 [facility], [place] [id number] [place] [address] 71669- 4809 Dec, [facility], [place] [id number] [place] [address] 41293- 1347 Dec, Type 2 diabetes mellitus with hyperglycemia E11.65 ; Mixed hyperlipidemia E78.2 and Gastroesophageal reflux disease with esophagitis K21.0 [facility], [place] [id number] [place] [address] 85136- 8808 Nov, Type 2 diabetes mellitus with hyperglycemia E11.65 and Mixed hyperlipidemia E78.2 [facility], [place] [id number] [place] [address] 46799- 8557 Nov, [facility], [place] [id number] [place] [address] 50245- 7827 Oct, [facility], [place] [id number] [place] [address] 96449- 8685 Oct, [facility], [place] [id number] [place] [address] 42509- 1348 September, [facility], [place] [address], [place] [address] 1703 September, Type 2 diabetes mellitus with hyperglycemia E11.65 [facility], [place] [id number], [place] [address] 0811 September, Type 2 diabetes mellitus with hyperglycemia E11.65 [facility], [place] [id number] [place] [address] 09333- 5541 September, Porokeratosis Q82.8 and Type 2 diabetes mellitus with diabetic polyneuropathy E11.42 [facility] IN [facility] [address] 08116 -1355 Aug, Seasonal allergic rhinitis, unspecified trigger J30.2 [place] [address] 99443- 0415 Aug, [place] [address] 66914- 2778 Aug, Bilateral low back pain without sciatica M54.5 [facility] [address] [id number] Aug, Dental examination V72.2 and Dental examination Z01.[address] 90264- 4758 Aug, Dental examination Z01.20 and Dental caries K02.[address] 12032- 0656 Aug, Obstructive sleep apnea G47.33 ; Obesity E66.9 ; Type 2 diabetes mellitus with hyperglycemia E11.65 ; Palpitations R00.2 and Corns and callosities L[address] [place] [id number] [place] [address] 64239- 1029 Jul, [address] 54399- 8764 Jul, [address] 96093- 6830 Jun, Type 2 diabetes mellitus with hyperglycemia E11.65 ; Colon cancer screening Z12.11 ; Mixed hyperlipidemia E78.2 ; Non-alcoholic fatty liver disease K76.0 ; Gastroesophageal reflux disease with esophagitis K21.0 and Pain of upper abdomen R10.10 [place] [id number] [place] [address] 35958- 2721 Jun, Falls frequently R29.[address] [facility] IN [facility] [id number] [place] [address] 19106 -6263 May, Infection of nose J34.89 [facility], [place] [id number] [place] [address] 54589- 0548 May, Bilateral low back pain without sciatica M54.5 [facility], [place] [address] 87677- 5168 May, Type 2 diabetes mellitus with diabetic polyneuropathy E11.42 ; Obstructive sleep apnea G47.33 and Type 2 diabetes mellitus with hyperglycemia E11.65 [place] [id number] [place] [address] 91964- 2330 Apr, Bilateral low back pain without sciatica M54.5 [place] [address] 00871- 9238 Apr, Mixed hyperlipidemia E78.2 and Type 2 diabetes mellitus with hyperglycemia E11.65 [place] [id number] [place] [address] 09285- 2661 Apr, Type 2 diabetes mellitus with diabetic polyneuropathy E11.42 [place] [address] 81510- 1556 Apr, [place] [id number] [place] [address] 33361- 5599 Apr, Skin lesion of left arm L98.9 and Skin lesion of left leg L98.9 [place] [id number] [place] [address] 11455- 5478 Mar, Bilateral low back pain without sciatica M54.5 [place] [id number] [place] [address] 04574- 7318 Mar, Plantar fasciitis of left foot M72.2 ; Bursitis of left foot M71.572 and Type 2 diabetes mellitus with diabetic polyneuropathy E11.42 [place] [id number] [place] [address] 13565- 9728 Feb, Non-alcoholic fatty liver disease K76.0 ; Keratoacanthoma L85.8 ; Seborrheic keratosis L82.1 ; Type 2 diabetes mellitus with hyperglycemia E11.65 and Nuclear cataract of both eyes H25.13 [facility] [id number] [place] [address] [id number] Feb, [facility], [place] [id number] [place] [address] 87472- 9933 Feb, [facility], [place] [address] 48120- 0245 Feb, [place] [address] 52714- 4037 Feb, Type 2 diabetes mellitus with hyperglycemia E11.65 ; Back muscle spasm M62.830 and Encounter for immunization Z23 [place] [address] 85694- 5743 Jan, Plantar fasciitis of left foot M72.2 [place] [address] 31578- 6648 Dec, [place] [address] 30170- 9801 Dec, Plantar fasciitis of left foot M72.2 and Tarsal tunnel syndrome of left side G57.52 [facility], [place] [id number] [place] [address] 21775- 0311 Dec, [facility] [id number] [place] [address] 77247 -0886 Nov, Mary Jane rash of groin B37.89 and Rash and nonspecific skin eruption R21 [facility], [place] [address] 91152- 1744 Nov, [facility], [place] [id number] [place] [address] 37016- 2564 Oct, Type 2 diabetes mellitus with hyperglycemia E11.65 and Mixed hyperlipidemia E78.2 [place] [id number] [place] [address] 33084- 4418 Oct, [facility], [place] [address] 00625- 3072 Oct, Chest pain, unspecified R07.9 ; Palpitations R00.2 ; Syncope R55 and Mixed hyperlipidemia E78.2 [place] [id number] [place] [address] 63932- 4044 Oct, Plantar fasciitis, bilateral M72.2 and Type 1 diabetes mellitus with diabetic neuropathy E10.40 [place] [address] 38451- 5011 Oct, [place] [address] 59753- 1335 September, Type 2 diabetes mellitus with hyperglycemia E11.65 [place] [address] 96135- 9700 September, Type 2 diabetes mellitus with hyperglycemia E11.65 ; Type 2 diabetes mellitus with diabetic polyneuropathy E11.42 ; Gastroesophageal reflux disease with esophagitis K21.0 and Headache, unspecified headache type R51 [place] [id number] [place] [address] 13109- 7063 September, [place] [id number] [place] [address] 62904- 5725 September, [facility], [place] [id number] [place] [address] 41052- 3922 September, [facility], [place] [id number] [place] [address] 99837- 8747 September, Other chest pain R07.89 ; Heart palpitations R00.2 ; Mixed hyperlipidemia E78.2 and Obesity E66.9 [facility], [place] [id number] [place] [address] 07213- 9387 Aug, [facility], [place] [id number] [place] [address] 23449- 2634 Aug, Type 2 diabetes mellitus with diabetic polyneuropathy E11.42 and Type 2 diabetes mellitus with hyperglycemia E11.65 [facility], [place] [address], [place] [address]- 1540 Aug, [facility], [place] [address], [place] [address]- 8773 Aug, [facility], [place] [address], [place] [address]- 8895 Aug, [facility], [place] [id number] [place] [address] 02627- 7233 Aug, Type 2 diabetes mellitus with hyperglycemia E11.65 [facility], [place] [address], [place] [address]- 0098 Aug, [facility], [place] [address], [place] [address]- 4065 Jul, Type 2 diabetes mellitus with diabetic polyneuropathy E11.42 [facility], [place] [address], [place] [address]- 9928 Jul, Type 2 diabetes mellitus with hyperglycemia E11.65 [facility], [place] [address], [place] [address]- 0800 Jul, [facility], [place] [address], [place] [address]- 2841 Jul, [facility], [place] [address], [place] [address]- 4719 Jul, [facility], [place] [address], [place] [address]- 6431 Jul, Type 2 diabetes mellitus with diabetic polyneuropathy E11.42 and Type 2 diabetes mellitus with hyperglycemia E11.65 [facility], [place] [address], [place] [address]- 6099 Jun, Obstructive sleep apnea G47.33 [facility], [place] [address], [place] [address]- 6125 Jun, Type 2 diabetes mellitus with diabetic polyneuropathy E11.42 ; Primary narcolepsy with cataplexy G47.411 ; Abdominal bloating R14.0 ; Other chest pain R07.89 and Vision problems H54.7 [facility], [place] [id number] [place] [address] 05211- 5237 Jun, [facility], [place] [id number] [place] [address] 70348- 6509 May, [facility], [place] [id number] [place] [address] 44554- 9836 Apr, [facility], [place] [address] 37628- 1317 Apr, Plantar fasciitis of left foot M72.2 [facility], [place] [address] 84145- 3386 Mar, [facility], [place] [address] 21387- 2145 Mar, Plantar fasciitis of left foot M72.2 and Type 2 diabetes mellitus with diabetic polyneuropathy E11.42 [place] [id number] [place] [address] 65457- 9377 Feb, Type 2 diabetes mellitus with hyperglycemia E11.65 ; Mixed hyperlipidemia E78.2 and Encounter for immunization Z23 [facility], [place] [id number] [place] [address] 70299- 3044 Feb, [facility], [place] [id number] [place] [address] 88553- 6564 Feb, [facility], [place] [id number] [place] [address] 12699- 6245 Feb, Type 2 diabetes mellitus with hyperglycemia E11.65 [facility], [place] [id number] [place] [address] 25099- 7203 Feb, Type 2 diabetes mellitus with hyperglycemia E11.65 [facility], [place] [id number] [place] [address] 40620- 8846 Jan, [facility], [place] [address], [place] [address]- 6960 Dec, Pain in left foot M79.672 ; Other chronic pain G89.29 ; Type 2 diabetes mellitus with hyperglycemia E11.65 ; Obstructive sleep apnea G47.33 ; Falls frequently R29.6 ; Mixed hyperlipidemia E78.2 and Gastroesophageal reflux disease with esophagitis K21.0 [facility], [place] [id number] [place] [address] 46328- 5381 Nov, [facility], [place] [id number] [place] [address] 40684- 6383 Oct, Type 2 diabetes mellitus with diabetic polyneuropathy E11.42 [facility], [place] [id number] [place] [address] 94158- 8879 Oct, [facility], [place] [id number] [place] [address] 61699- 0884 Oct, [facility], [place] [id number], [place] [address]- 2720 September, [facility], [place] [id number] [place] [address] 79399- 2554 September, [facility], [place] [address], [place] [address]- 1490 September, [facility], [place] [address], [place] [address]- 7296 September, [facility], [place] [address], [place] [address]- 6160 September, [facility], [place] [address], [place] [address]- 7484 Aug, Type 2 diabetes mellitus with hyperglycemia E11.65 ; Mixed hyperlipidemia E78.2 and Right carpal tunnel syndrome G56.01 [facility], [place] [address], [place] [address]- 7515 Aug, [facility], [place] [id number] [place] [address] 76904- 2064 Jul, [facility], [place] [id number] [place] [address] 94020- 2431 Jun, [facility], [place] [id number] [place] [address] 60440- 4526 Jun, [facility], [place] [id number] [place] [address] 33708- 6404 May, [facility], [place] [id number] [place] [address] 32574- 3975 May, [facility], [place] [address] 14745- 8456 May, Type 2 diabetes mellitus with hyperglycemia E11.65 and Falls E888.9 [facility], [place] [id number] [place] [address] 65893- 4688 Apr, Type 2 diabetes mellitus with hyperglycemia E11.65 [facility], [place] [id number] [place] [address] 95481- 3402 Apr, [facility], [place] [id number] [place] [address] 67691- 1230 Apr, Type 2 diabetes mellitus with hyperglycemia E11.65 [facility], [place] [id number] [place] [address] 04709- 9201 Apr, [facility], [place] [id number] [place] [address] 64271- 3434 Mar, Type 2 diabetes mellitus with diabetic polyneuropathy E11.42 ; Bilateral low back pain without sciatica M54.5 and Dry nose J34.89 [facility], [place] [id number] [place] [address] 10563- 8193 Mar, Palpitations R00.2 ; Syncope R55 ; DM (diabetes mellitus) E11.9 and Obesity E66.9 [facility], [place] [id number] [place] [address] 00701- 4270 Mar, [place] [address], [place] [address]- 4071 Mar, [facility], [place] [address], [place] [address]- 7946 Mar, [facility], [place] [address], [place] [address]- 3773 Feb, [facility], [place] [id number] [place] [address] 11049- 8736 Jan, [facility], [place] [id number] [place] [address] 62746- 8357 Jan, [facility], [place] [id number] [place] [address] 69049- 1183 Jan, Falls E888.9 and Sinusitis 473.9 [facility], [place] [id number] [place] [address] 10804- 0649 Dec, [facility], [place] [id number] [place] [address] 79619- 2556 Dec, [facility], [place] [address], [place] [address]- 4910 Dec, [facility], [place] [address], [place] [address]- 7790 Dec, [facility], [place] [address], [place] [address]- 1998 Dec, Diabetes mellitus without mention of complication, type II or unspecified type, not stated as uncontrolled 250.00 and Shortness of breath 786.05 [facility], [place] [address], [place] [address]- 1966 Dec, [facility], [place] [id number] [address]- 9218 Nov, [facility], [place] [address], [place] [address]- 3439 Nov, [facility], [place] [id number] [place] [address] 84397- 6514 Oct, Restrictive lung disease 518.89 [facility], [place] [id number] [place] [address] 24368- 8786 Oct, [facility], [place] [id number] [place] [address] 97973- 5200 Oct, Shortness of breath 786.05 [facility], [place] [address] 76928- 2360 September, Other nonspecific abnormal finding of lung field 793.19 ; Diabetes mellitus without mention of complication, type II or unspecified type, not stated as uncontrolled 250.00 ; Hyperlipidemia LDL goal < 100 272.4 ; Narcolepsy, with cataplexy 347.01 ; Shortness of breath 786.05 and Chest pain 786.50 [facility], [place] [id number] [place] [address] 45346- 4785 Aug, [facility], [place] [address] 56612- 0880 Aug, [facility], [place] [id number] [place] [address] 13841- 9645 Jun, [facility], [place] [id number] [place] [address] 16015- 9130 Jun, [facility], [place] [id number] [place] [address] 66785- 9957 Jun, [facility], [place] [id number] [place] [address] 71917- 6714 Jun, [facility], [place] [id number] [place] [address] 85218- 7678 Jun, [facility], [place] [id number] [place] [address] 94094- 6765 Jun, [facility], [place] [id number] [place] [address] 07403- 6772 Jun, [facility], [place] [id number] [place] [address]- 8950 Jun, [facility] [address] [id number] [place] [address]- 2830 May, [facility] [place] [facility] [address] [id number] [place] [address]- 9453 May, [facility] [address] [id number] [place] [address]- 6555 Apr, [facility] [place] [facility] [address] [id number] [place] [address]- 4863 Apr, [facility] [place] [facility] [address] [id number] [place] [address]- 4825 Mar, [facility] [place] [facility] [address] [id number] [place] [address]- 7559 Mar, [facility] [place] [facility] [address] [id number] [place] [address]- 1944 Mar, [facility] [place] [facility] [address] [id number] [place] [address]- 5130 Mar, [facility] [place] [facility] [address] [id number] [place] [address]- 7085 Nov, [facility] [place] [facility] [address] [id number] [place] [address]- 9491 Nov, [facility] [place] [facility] [address] [id number] [place] [address]- 2700 Nov, [facility] [place] [facility] [address] [id number] [place] [address]- 0996 Nov, [facility] [place] [facility] [address] [id number] [place] [address] Oct, [facility] [place] [facility] [address] [id number] [place] [address] Oct, [facility] [place] [facility] [address] [id number] [place] [address] Oct, [facility] [place] [facility] [address] [id number] [place] [address] Oct, [facility] [place] [facility] [address] [id number] [place] [address] Oct, [facility] [place] [facility] [address] [id number] [place] [address] Oct, [facility] [place] [facility] [address] [id number] [place] [address] Oct, [facility] [place] [facility] [address] [id number] [place] [address] Oct, [facility] [place] [facility] [address] [id number] [place] [address] Oct, [facility] [place] [facility] [address] [id number] [place] [address] Oct, [facility] [place] [facility] [address] [id number] [place] [address] September, [facility] [place] [facility] [address] [id number] [place] [address] September, [facility] [place] [facility] [address] [id number] [place] [address] Aug, [facility] [place] [facility] [address] [id number] [place] [address] Aug, [facility] [place] [facility] [address] [id number] [place] [address] Aug, [facility] [place] [facility] [address] [id number] [place] [address] Aug, [facility] [place] [facility] [address] [id number] [place] [address] Aug, [facility] [place] [facility] [address] [id number] [place] [address] Aug, [facility] [place] [facility] [address] [id number], [place] [address] Jul, [facility] [place] [facility] [address] [id number] [place] [address] Jul, [facility] [place] [facility] [address] [id number] [place] [address] Jul, [facility] [place] [facility] [address] [id number] [place] [address] Jul, [facility] [facility] [address] [id number] [place] [address] Jul, [facility] [place] [facility] [address] [id number] [place] [address] Jul, [facility] [place] [facility] [address] [id number] [place] [address] Jul, [facility] [place] [facility] [address] [id number] [place] [address] Jul, [facility] [place] [facility] [address] [id number] [place] [address] 24 Jul, 2013 [facility] [place] [facility] [address] [id number] [place] [address] Jul, [facility] [place] [facility] [address] [id number] [place] [address] Jul, [facility] [place] [facility] [address] [id number] [place] [address] 19 Jul, 2013 [facility] [place] [facility] [address] [id number] [place] [address] 19 Jul, 2013 [facility] [place] [facility] [address] [id number] [place] [address] 14 Jul, 2013 [facility] [place] [facility] [address] [id number] [place] [address] 14 Jul, 2013 [facility] [place] [facility] [address] [id number] [place] [address] 12 Jul, 2013 [facility] [place] [facility] [address] [id number] [place] [address] Jun, [facility] [place] [facility] [address] [id number] [place] [address] Jun, [facility] [place] [facility] [address] [id number] [place] [address] Jun, [facility] [place] [facility] [address] [id number] [place] [address] Jun, [facility] [place] [facility] [address] [id number] [place] [address] Jun, [facility] [place] [facility] [address] [id number] [place] [address] Jun, [facility] [place] [facility] [address] [facility] [id number] [place] [address]- [address] Jun, [facility] [place] [facility] [address] [id number] [place] [address] 1985 Jun, [facility] [place] [facility] [address] [id number] [place] [address] Jun, [facility] [place] [facility] [address] [facility] [id number] [place] [address]- [address] Jun, [facility] [place] [facility] [address] [facility] [id number] [place] [address]- [address] Jun, [facility] [place] [facility] [address] [id number] [place] [address]49 Jun, [facility] [place] [facility] [address] [facility] [id number] [place] [address]- [address] 14 Jun, 2013 [facility] [place] [facility] [address] [id number] [place] [address] Jun, [facility] [place] [facility] [address] [facility] [id number] [place] [address]- 9[address] Jun, [facility] [place] [facility] [address] [id number] [place] [address]- [address]46 13 Jun, 2013 [facility] [place] [facility] [address] [id number] [place] [address]- [address] 13 Jun, 2013 [facility] [place] [facility] [address] [id number] [place] [address]- [address]46 12 Jun, 2013 [facility] [place] [facility] [address] [id number] [place] [address]- [address] 12 Jun, 2013 [facility] [place] [facility] [address] [id number] [place] [address]- [address] Jun, 2013 [facility] [place] [facility] [address] [id number] [place] [address]- [address] Jun, 2013 [facility] [place] [facility] [address] [facility] [id number] [place] [address]- [address] 10 Jun, 2013 [facility] [place] [facility] [address] [facility] [id number] [place] [address] Jun, 2013 [facility] [place] [facility] [address] [facility] [id number] [place] [address]- 40[address] Jun, 2013 [facility] [facility] [address] [facility] [id number] [place] [address]- [address] Jun, 2013 [facility] [place] [facility] [address] [facility] [id number] [place] [address]- [address] Jun, 2013 [facility] [place] [facility] [address] [facility] [id number] [place] [address]- [address] Jun, 2013 [facility] [place] [address] [facility] [id number] [place] [address]- [address]47 Jun, 2013 [facility] [place] [facility] [address] [id number] [place] [address]- [address] Jun, 2013 [facility] [address] [facility] [id number] [place] [address]- [address] Jun, 2013 [facility] [address] [facility] [id number] [place] [address]- [address] May, [facility] [address] [id number] [place] [address]- [address] May, [facility] [address] [id number] [place] [address]- [address]37 May, [facility] [place] [facility] [address] [id number] [place] [address]- 9565 May, [facility] [address] [id number] [place] [address]- [address]329 May, [facility] [place] [facility] [address] [id number] [place] [address]- [address] May, [facility] [place] [facility] [address] [id number] [place] [address]- [address]366 May, [facility] [facility] [address] [id number] [place] [address]- 6413 May, [facility] [address] [id number] [place] [address]- 9421 May, [facility] [place] [facility] [address] [id number] [place] [address]- [address] May, [facility] [facility] [address] [id number] [place] [address]- 0735 May, [facility] [place] [facility] [address] [id number] [place] [address]- 8817 May, [facility] [place] [facility] [address] [id number] [place] [address]- 8915 May, [facility] [facility] [address] [id number] [place] [address]- 2081 May, [facility] [address] [id number] [place] [address]- 0436 May, [facility] [facility] [address] [id number] [place] [address]- [address] Apr, [facility] [id number], [place] [address] Apr, [facility] [place] [id number] [place] [address] Dec, [facility] [place] [id number], [place] [address] Nov, [facility] [place] [id number], [place] [address] May, [facility] [place] [id number], [place] [address] Apr, [facility] [place] [id number] Apr, [facility] [place] [id number], [place] [address] Apr, [facility] [place] [id number], [place] [address] Apr, IMMUNIZATIONS No Known Immunizations SOCIAL HISTORY Never Assessed REASON FOR VISIT PT follow-up PLAN OF CARE Activity Details Follow Up 3 Weeks Reason:F/U PT VITAL SIGNS MEDICATIONS Unknown Medications RESULTS No Results PROCEDURES Procedure Date Ordered Result Body Site THERAPEUTIC EXERCISES August 28, 2017 INSTRUCTIONS MEDICATIONS ADMINISTERED No Known Medications MEDICAL (GENERAL) HISTORY Type Description Date Medical History asthma Medical History type II diabetes Medical History sleep apnea Medical History narcolepsy Surgical History hysterectomy, partial Hospitalization History Chest pain-[facility] 02/27/17
--- OUTSIDE RECORDS SUMMARY | 2018-03-08 22:50 | XMS REPORT ---
Author Author JEFF BELTRÁN Organization [facility] Address [address] [place] [address] Care Team Providers Care Mammal Control Agent Name Role Phone MARGIE BELTRÁNTA Unavailable PROBLEMS Type Condition ICD9-CM Code LPI99-BS Code Onset Dates Condition Status SNOMED Code Problem Right carpal tunnel syndrome G56.01 Active 78900599 Problem Gastroesophageal reflux disease with esophagitis K21.0 Active 021718430 Problem Falls frequently R29.6 Active 533054899 Problem Porokeratosis Q82.8 Active 112617245 Problem Posterior subcapsular age-related cataract of both eyes H25.043 Active 2248233 Problem Non-alcoholic fatty liver disease K76.0 Active 226588519 Problem Delayed gastric emptying K30 Active 029029217 Problem Pain in left foot M79.672 Active 2248858 Problem Other chronic pain G89.29 Active 67650986 Problem Tarsal tunnel syndrome of left side G57.52 Active 47428091 Problem Obesity E66.9 Active 086564257 Problem Hypermetropia, bilateral H52.03 Active 84793108 Problem Type 2 diabetes mellitus with hyperglycemia E11.65 Active 40455322 Problem Nuclear cataract of both eyes H25.13 Active 76304047 Problem Presbyopia OU H52.4 Active 53586651 Problem Obstructive sleep apnea G47.33 Active 91169458 Problem Shortness of breath R06.02 Active 203559928 Problem Type 2 diabetes mellitus with diabetic polyneuropathy E11.42 Active 44579798 Problem Lung nodule R91.1 Active 924799917 Problem Mixed hyperlipidemia E78.2 Active 086869256 Problem Primary narcolepsy with cataplexy G47.411 Active 753874717 ALLERGIES No Information ENCOUNTERS Encounter Location Date Diagnosis [facility] [address] [facility] [id number] [address] Jan, Type 2 diabetes mellitus with hyperglycemia E11.65 [facility] [address], [place] [address] Dec, Chest pain on breathing R07.1 [facility] [id number] [place] [address] 44274 -1508 Dec, Chest pain on breathing R07.1 [facility] [id number] [place] [address] 19361- 1397 Dec, Well woman exam Z01.419 ; Screening for breast cancer Z12.31 and Screening for colon cancer Z12.11 [facility] [id number] [place] [address] 15604- 6336 Dec, [facility] [id number] [place] [address] 43829- 9634 Dec, Type 2 diabetes mellitus with hyperglycemia E11.65 ; Mixed hyperlipidemia E78.2 and Gastroesophageal reflux disease with esophagitis K21.0 [facility] [id number] [place] [address] 48831- 7414 Nov, Type 2 diabetes mellitus with hyperglycemia E11.65 and Mixed hyperlipidemia E78.2 [facility] [id number] [place] [address] 39373- 2712 Nov, [facility] [id number] [place] [address] 85467- 2385 Oct, [facility] [id number] [place] [address] 88054- 5593 Oct, [facility] [id number] [place] [address] 60276- 9436 September, [facility] [address], [place] [address] 7918 September, Type 2 diabetes mellitus with hyperglycemia E11.65 [facility] [id number] [address] 1170 September, Type 2 diabetes mellitus with hyperglycemia E11.65 [facility] [id number] [place] [address] 88993- 8086 September, Porokeratosis Q82.8 and Type 2 diabetes mellitus with diabetic polyneuropathy E11.42 [facility] [address] [address]358 Aug, Seasonal allergic rhinitis, unspecified trigger J30.2 [place] [address] 94080- 4401 Aug, [place] [address] 46133- 2281 Aug, Bilateral low back pain without sciatica M54.5 [facility] [address] [id number] Aug, Dental examination V72.2 and Dental examination Z01.[address] 39861- 8605 Aug, Dental examination Z01.20 and Dental caries K02.[address] 61668- 5443 Aug, Obstructive sleep apnea G47.33 ; Obesity E66.9 ; Type 2 diabetes mellitus with hyperglycemia E11.65 ; Palpitations R00.2 and Corns and callosities L[address] [place] [id number] [place] [address] 01649- 9033 Jul, [address] 63315- 3965 Jul, [address] 62962- 4680 Jun, Type 2 diabetes mellitus with hyperglycemia E11.65 ; Colon cancer screening Z12.11 ; Mixed hyperlipidemia E78.2 ; Non-alcoholic fatty liver disease K76.0 ; Gastroesophageal reflux disease with esophagitis K21.0 and Pain of upper abdomen R10.10 [place] [id number] [place] [address] 11900- 4468 Jun, Falls frequently R29.6 [facility] [id number] [place] [address] 22256 -2226 May, Infection of nose J34.89 [facility] [id number] [place] [address] 16942- 8266 May, Bilateral low back pain without sciatica M54.5 [facility] [address] 32918- 9190 May, Type 2 diabetes mellitus with diabetic polyneuropathy E11.42 ; Obstructive sleep apnea G47.33 and Type 2 diabetes mellitus with hyperglycemia E11.65 [place] [id number] [place] [address] 84868- 3290 Apr, Bilateral low back pain without sciatica M54.5 [place] [address] 82127- 8909 Apr, Mixed hyperlipidemia E78.2 and Type 2 diabetes mellitus with hyperglycemia E11.65 [place] [id number] [place] [address] 83517- 4510 Apr, Type 2 diabetes mellitus with diabetic polyneuropathy E11.42 [place] [address] 11590- 6730 Apr, [place] [id number] [place] [address] 01804- 4144 Apr, Skin lesion of left arm L98.9 and Skin lesion of left leg L98.9 [place] [id number] [place] [address] 65604- 6592 Mar, Bilateral low back pain without sciatica M54.5 [place] [id number] [place] [address] 52308- 1183 Mar, Plantar fasciitis of left foot M72.2 ; Bursitis of left foot M71.572 and Type 2 diabetes mellitus with diabetic polyneuropathy E11.42 [place] [id number] [place] [address] 52792- 7429 Feb, Non-alcoholic fatty liver disease K76.0 ; Keratoacanthoma L85.8 ; Seborrheic keratosis L82.1 ; Type 2 diabetes mellitus with hyperglycemia E11.65 and Nuclear cataract of both eyes H25.13 [facility] [place] [id number] [place] [address] [id number] Feb, [facility] [id number] [place] [address] 48360- 3946 Feb, [facility] [address] 41007- 6465 Feb, [place] [address] 33472- 4562 Feb, Type 2 diabetes mellitus with hyperglycemia E11.65 ; Back muscle spasm M62.830 and Encounter for immunization Z23 [place] [address] 63395- 9878 Jan, Plantar fasciitis of left foot M72.2 [place] [address] 88109- 5984 Dec, [place] [address] 14362- 9516 Dec, Plantar fasciitis of left foot M72.2 and Tarsal tunnel syndrome of left side G57.52 [facility] [id number] [place] [address] 05495- 1269 Dec, [facility] [id number] [place] [address] 72346 -9363 Nov, Mary Jane rash of groin B37.89 and Rash and nonspecific skin eruption R21 [facility] [address] 17129- 7438 Nov, [facility] [id number] [place] [address] 13256- 0048 Oct, Type 2 diabetes mellitus with hyperglycemia E11.65 and Mixed hyperlipidemia E78.2 [place] [id number] [place] [address] 07051- 1683 Oct, [facility] [address] 06172- 8827 Oct, Chest pain, unspecified R07.9 ; Palpitations R00.2 ; Syncope R55 and Mixed hyperlipidemia E78.2 [place] [id number] [place] [address] 93953- 8151 Oct, Plantar fasciitis, bilateral M72.2 and Type 1 diabetes mellitus with diabetic neuropathy E10.40 [place] [address] 73338- 4560 Oct, [place] [address] 73458- 1825 September, Type 2 diabetes mellitus with hyperglycemia E11.65 [place] [address] 34086- 9264 September, Type 2 diabetes mellitus with hyperglycemia E11.65 ; Type 2 diabetes mellitus with diabetic polyneuropathy E11.42 ; Gastroesophageal reflux disease with esophagitis K21.0 and Headache, unspecified headache type R51 [place] [id number] [place] [address] 58656- 6219 September, [place] [id number] [place] [address] 58010- 2974 September, [facility] [id number] [place] [address] 25351- 4300 September, [facility] [id number] [place] [address] 14272- 8995 September, Other chest pain R07.89 ; Heart palpitations R00.2 ; Mixed hyperlipidemia E78.2 and Obesity E66.9 [facility] [id number] [place] [address] 66289- 2377 Aug, [facility] [id number] [place] [address] 40450- 5980 Aug, Type 2 diabetes mellitus with diabetic polyneuropathy E11.42 and Type 2 diabetes mellitus with hyperglycemia E11.65 [facility] [address], [place] [address]- 5736 Aug, [facility] [address], [place] [address]- 3495 Aug, [facility] [address], [place] [address]- 5245 Aug, [facility] [address] [place] [address] 36397- 9621 Aug, Type 2 diabetes mellitus with hyperglycemia E11.65 [facility] [address], [place] [address]- 1444 Aug, [facility] [address], [place] [address]- 1637 Jul, Type 2 diabetes mellitus with diabetic polyneuropathy E11.42 [facility] [address], [place] [address]- 3042 Jul, Type 2 diabetes mellitus with hyperglycemia E11.65 [facility] [address], [place] [address]- 3155 Jul, [facility] [address], [place] [address]- 0195 Jul, [facility] [address], [place] [address]- 9147 Jul, [facility] [address], [place] [address]- 7645 Jul, Type 2 diabetes mellitus with diabetic polyneuropathy E11.42 and Type 2 diabetes mellitus with hyperglycemia E11.65 [facility] [address], [place] [address]- 9539 Jun, Obstructive sleep apnea G47.33 [facility] [address], [place] [address]- 7964 Jun, Type 2 diabetes mellitus with diabetic polyneuropathy E11.42 ; Primary narcolepsy with cataplexy G47.411 ; Abdominal bloating R14.0 ; Other chest pain R07.89 and Vision problems H54.7 [facility] [id number] [place] [address] 01645- 5024 Jun, [facility] [id number] [place] [address] 77275- 2132 May, [facility] [id number] [place] [address] 10305- 1026 Apr, [facility] [address] 98176- 0790 Apr, Plantar fasciitis of left foot M72.2 [facility] [address] 35217- 6416 Mar, [facility] [address] 54957- 5447 Mar, Plantar fasciitis of left foot M72.2 and Type 2 diabetes mellitus with diabetic polyneuropathy E11.42 [place] [id number] [place] [address] 10514- 5122 Feb, Type 2 diabetes mellitus with hyperglycemia E11.65 ; Mixed hyperlipidemia E78.2 and Encounter for immunization Z23 [facility] [id number] [place] [address] 93105- 8058 Feb, [facility] [id number] [place] [address] 87666- 7817 Feb, [facility] [id number] [place] [address] 22975- 3608 Feb, Type 2 diabetes mellitus with hyperglycemia E11.65 [facility] [id number] [place] [address] 96962- 5370 Feb, Type 2 diabetes mellitus with hyperglycemia E11.65 [facility] [id number] [place] [address] 15145- 2487 Jan, [facility] [address], [place] [address]- 9350 Dec, Pain in left foot M79.672 ; Other chronic pain G89.29 ; Type 2 diabetes mellitus with hyperglycemia E11.65 ; Obstructive sleep apnea G47.33 ; Falls frequently R29.6 ; Mixed hyperlipidemia E78.2 and Gastroesophageal reflux disease with esophagitis K21.0 [facility] [id number] [place] [address] 14495- 0939 Nov, [facility] [id number] [place] [address] 81917- 1121 Oct, Type 2 diabetes mellitus with diabetic polyneuropathy E11.42 [facility] [id number] [place] [address] 75062- 3559 Oct, [facility] [id number] [place] [address] 58353- 5997 Oct, [facility] [id number] [address]- 0119 September, [facility] [id number] [place] [address] 08150- 6519 September, [facility] [address], [place] [address]- 1599 September, [facility] [address], [place] [address]- 3676 September, [facility] [address], [place] [address]- 4146 September, [facility] [address], [place] [address]- 2572 Aug, Type 2 diabetes mellitus with hyperglycemia E11.65 ; Mixed hyperlipidemia E78.2 and Right carpal tunnel syndrome G56.01 [facility] [address], [place] [address]- 8796 Aug, [facility] [id number] [place] [address] 58753- 5579 Jul, [facility] [id number] [place] [address] 81048- 7801 Jun, [facility] [id number] [place] [address] 32881- 0580 Jun, [facility] [id number] [place] [address] 05184- 9346 May, [facility] [id number] [place] [address] 93215- 0029 May, [facility] [address] 92168- 7146 May, Type 2 diabetes mellitus with hyperglycemia E11.65 and Falls E888.9 [facility] [id number] [place] [address] 18547- 1588 Apr, Type 2 diabetes mellitus with hyperglycemia E11.65 [facility] [id number] [place] [address] 81460- 6129 Apr, [facility] [id number] [place] [address] 61250- 4782 Apr, Type 2 diabetes mellitus with hyperglycemia E11.65 [facility] [id number] [place] [address] 82273- 9466 Apr, [facility] [id number] [place] [address] 11050- 6484 Mar, Type 2 diabetes mellitus with diabetic polyneuropathy E11.42 ; Bilateral low back pain without sciatica M54.5 and Dry nose J34.89 [facility] [id number] [place] [address] 53602- 3237 Mar, Palpitations R00.2 ; Syncope R55 ; DM (diabetes mellitus) E11.9 and Obesity E66.9 [facility] [id number] [place] [address] 49863- 4984 Mar, [place] [address], [place] [address]- 4006 Mar, [facility] [address], [place] [address]- 6104 Mar, [facility] [address], [place] [address]- 4639 Feb, [facility] [id number] [place] [address] 87067- 8259 Jan, [facility] [id number] [place] [address] 55379- 4432 Jan, [facility] [id number] [place] [address] 96904- 9926 Jan, Falls E888.9 and Sinusitis 473.9 [facility] [id number] [place] [address] 64801- 0043 Dec, [facility] [id number] [place] [address] 43303- 0602 Dec, [facility] [address], [place] [address]- 3290 Dec, [facility] [address], [place] [address]- 0603 Dec, [facility] [address], [place] [address]- 0264 Dec, Diabetes mellitus without mention of complication, type II or unspecified type, not stated as uncontrolled 250.00 and Shortness of breath 786.05 [facility] [address], [place] [address]- 0225 Dec, [facility] [id number] [address]- 7092 Nov, [facility] [address], [place] [address]- 1665 Nov, [facility] [id number] [place] [address] 15108- 5431 Oct, Restrictive lung disease 518.89 [facility] [id number] [place] [address] 51711- 8295 Oct, [facility] [id number] [place] [address] 75640- 8080 Oct, Shortness of breath 786.05 [facility] [address] 36567- 4365 September, Other nonspecific abnormal finding of lung field 793.19 ; Diabetes mellitus without mention of complication, type II or unspecified type, not stated as uncontrolled 250.00 ; Hyperlipidemia LDL goal < 100 272.4 ; Narcolepsy, with cataplexy 347.01 ; Shortness of breath 786.05 and Chest pain 786.50 [facility] [id number] [place] [address] 93079- 1300 Aug, [facility] [address] 38505- 7455 Aug, [facility] [id number] [place] [address] 17827- 7649 Jun, [facility] [id number] [place] [address] 53646- 0154 Jun, [facility] [address] [place] [address] 05475- 8038 Jun, [facility] [id number] [place] [address] 40433- 0593 Jun, [facility] [id number] [place] [address] 58876- 0040 Jun, [facility] [id number] [place] [address] 34728- 4131 Jun, [facility] [address] [place] [address] 32233- 3266 Jun, [facility] [id number] [place] [address]- 5592 Jun, [facility] [address] [id number] [place] [address]- 0360 May, [facility] [place] [facility] [address] [id number] [place] [address]- 9588 May, [facility] [address] [id number] [place] [address]- 3180 Apr, [facility] [place] [facility] [address] [id number] [place] [address]- 0373 Apr, [facility] [place] [facility] [address] [id number] [place] [address]- 0319 Mar, [facility] [place] [facility] [address] [id number] [place] [address]- 8821 Mar, [facility] [place] [facility] [address] [id number] [place] [address]- 7312 Mar, [facility] [place] [facility] [address] [id number] [place] [address]- 8616 Mar, [facility] [place] [facility] [address] [id number] [place] [address]- 8352 Nov, [facility] [place] [facility] [address] [id number] [place] [address]- 2049 Nov, [facility] [place] [facility] [address] [id number] [place] [address]- 4934 Nov, [facility] [place] [facility] [address] [id number] [place] [address]- 5707 Nov, [facility] [place] [facility] [address] [id number] [place] [address]- 9511 Oct, [facility] [place] [facility] [address] [id number] [place] [address]- 9677 Oct, [facility] [place] [facility] [address] [id number] [place] 0846 Oct, [facility] [place] [facility] [address] [id number] [place] [address]- 4449 Oct, [facility] [place] [facility] [address] [id number] [place] [address]- 6575 Oct, [facility] [place] [facility] [address] [id number] [place] [address]- 8626 Oct, [facility] [place] [facility] [address] [id number] [place] [address]- 8870 Oct, [facility] [place] [facility] [address] [id number] [place] [address]- 9224 Oct, [facility] [place] [facility] [address] [id number] [place] [address]- 7387 Oct, [facility] [place] [facility] [address] [id number] [place] [address]- 3558 Oct, [facility] [place] [facility] [address] [id number] [place] [address]- 8766 September, [facility] [place] [facility] [address] [id number] [place] [address]- 1000 September, [facility] [place] [facility] [address] [id number] [place] [address]- 3184 Aug, [facility] [place] [facility] [address] [id number] [place] [address]- 7136 Aug, [facility] [place] [facility] [address] [id number] [place] [address]- 0164 Aug, [facility] [place] [facility] [address] [id number] [place] [address]- 7521 Aug, [facility] [place] [facility] [address] [id number] [place] [address]- 0194 Aug, [facility] [place] [facility] [address] [id number] [place] [address]- 7708 Aug, [facility] [place] [facility] [address] [id number], [place] [address]- 8343 Jul, [facility] [place] [facility] [address] [id number] [place] [address]- 8828 Jul, [facility] [place] [facility] [address] [id number] [place] [address]- 3772 Jul, [facility] [place] [facility] [address] [id number] [place] [address]- 0056 Jul, [facility] [place] [facility] [address] [id number] [place] [address]- 6270 Jul, [facility] [place] [facility] [address] [id number] [place] [address]- 4205 Jul, [facility] [place] [facility] [address] [id number] [place] [address]- 0839 Jul, [facility] [place] [facility] [address] [id number] [place] [address]- 8988 Jul, [facility] [place] [facility] [address] [id number] [place] [address]- 8656 24 Jul, 2013 [facility] [place] [facility] [address] [id number] [place] [address] Jul, [facility] [place] [facility] [address] [id number] [place] [address] Jul, [facility] [place] [facility] [address] [id number] [place] [address] 19 Jul, 2013 [facility] [place] [facility] [address] [id number] [place] [address] 19 Jul, 2013 [facility] [place] [facility] [address] [id number] [place] [address] 14 Jul, 2013 [facility] [place] [facility] [address] [id number] [place] [address] 14 Jul, 2013 [facility] [place] [facility] [address] [id number] [place] [address] 12 Jul, 2013 [facility] [place] [facility] [address] [id number] [place] [address] Jun, [facility] [place] [facility] [address] [id number] [place] [address] Jun, [facility] [place] [facility] [address] [id number] [place] [address] Jun, [facility] [place] [facility] [address] [id number] [place] [address] Jun, [facility] [place] [facility] [address] [id number] [place] [address] Jun, [facility] [place] [facility] [address] [id number] [place] [address] Jun, [facility] [place] [facility] [address] [facility] [id number] [place] [address] Jun, [facility] [place] [facility] [address] [id number] [place] [address] Jun, [facility] [facility] [address] [id number] [place] [address] Jun, [facility] [place] [facility] [address] [facility] [id number] [place] [address] Jun, [facility] [place] [facility] [address] [facility] [id number] [place] [address] Jun, [facility] [place] [facility] [address] [id number] [place] [address] Jun, [facility] [place] [facility] [address] [facility] [id number] [place] [address] 14 Jun, 2013 [facility] [place] [facility] [address] [id number] [place] [address] Jun, [facility] [place] [facility] [address] [facility] [id number] [place] [address] Jun, [facility] [place] [facility] [address] [id number] [place] [address] 13 Jun, 2013 [facility] [place] [facility] [address] [id number] [place] [address] 13 Jun, 2013 [facility] [place] [facility] [address] [id number] [place] [address] 12 Jun, 2013 [facility] [place] [facility] [address] [id number] [place] [address] 12 Jun, 2013 [facility] [place] [facility] [address] [id number] [place] [address] Jun, 2013 [facility] [place] [facility] [address] [id number] [place] [address] Jun, 2013 [facility] [place] [facility] [address] [facility] [id number] [place] [address] 10 Jun, 2013 [facility] [place] [facility] [address] [facility] [id number] [place] [address] Jun, 2013 [facility] [place] [facility] [address] [facility] [id number] [place] [address] Jun, 2013 [facility] [place] [facility] [address] [facility] [id number] [place] [address] Jun, 2013 [facility] [place] [facility] [address] [facility] [id number] [place] [address] Jun, 2013 [facility] [place] [facility] [address] [facility] [id number] [place] [address]- [address] Jun, 2013 [facility] [place] [facility] [address] [facility] [id number] [place] [address]- [address] Jun, 2013 [facility] [place] [facility] [address] [id number] [place] [address]- [address] Jun, 2013 [facility] [place] [facility] [address] [facility] [id number] [place] [address]- [address] Jun, 2013 [facility] [place] [facility] [address] [facility] [id number] [place] [address] May, [facility] [place] [facility] [address] [id number] [place] [address] May, [facility] [place] [address] [id number] [place] [address]- [address] May, [facility] [place] [facility] [address] [id number] [place] [address]- [address] May, [facility] [place] [facility] [address] [id number] [place] [address] May, [facility] [place] [address] [id number] [place] [address]- [address] May, [facility] [place] [address] [id number] [place] [address] May, [facility] [place] [facility] [address] [id number] [place] [address]- [address] May, [facility] [place] [facility] [address] [id number] [place] [address] May, [facility] [address] [id number] [place] [address]- [address] May, [facility] [address] [id number] [place] [address] May, [facility] [place] [address] [id number] [place] [address]- [address] May, [facility] [place] [facility] [address] [id number] [place] [address] May, [facility] [place] [facility] [address] [id number] [place] [address] May, [facility] [place] [facility] [address] [id number] [place] [address]- [address] May, [facility] [place] [facility] [address] [id number] [place] [address] Apr, [facility] [place] [id number] [place] [address] Apr, [facility] [id number] [place] [address] Dec, [facility] [id number] [place] [address] Nov, [facility] [id number] [place] [address] May, [facility] [id number] [address] Apr, [facility] [id number] [place] [address] Apr, [facility] [id number] [place] [address] Apr, [facility] [id number] [address] Apr, IMMUNIZATIONS No Known Immunizations SOCIAL HISTORY Never Assessed REASON FOR VISIT DM ED attempt PLAN OF CARE VITAL SIGNS MEDICATIONS Unknown Medications RESULTS No Results PROCEDURES No Known procedures INSTRUCTIONS MEDICATIONS ADMINISTERED No Known Medications MEDICAL (GENERAL) HISTORY Type Description Date Medical History asthma Medical History type II diabetes Medical History sleep apnea Medical History narcolepsy Surgical History hysterectomy, partial Hospitalization History Chest pain-[facility] 02/27/17
--- OUTSIDE RECORDS SUMMARY | 2018-03-08 22:51 | XMS REPORT ---
Author Author QUINTEN GILLIAM [facility] Address [address] [place] [address] Care Team Providers Care Lathe Turner Name Role Phone QUINTEN GILLIAM Unavailable PROBLEMS Type Condition ICD9-CM Code KBB85-DZ Code Onset Dates Condition Status SNOMED Code Problem Right carpal tunnel syndrome G56.01 Active 22213420 Problem Gastroesophageal reflux disease with esophagitis K21.0 Active 541689137 Problem Falls frequently R29.6 Active 902620826 Problem Porokeratosis Q82.8 Active 074144250 Problem Posterior subcapsular age-related cataract of both eyes H25.043 Active 9981001 Problem Non-alcoholic fatty liver disease K76.0 Active 651900021 Problem Delayed gastric emptying K30 Active 154549439 Problem Pain in left foot M79.672 Active 2260295 Problem Other chronic pain G89.29 Active 57344408 Problem Tarsal tunnel syndrome of left side G57.52 Active 43120595 Problem Obesity E66.9 Active 588870281 Problem Hypermetropia, bilateral H52.03 Active 93179394 Problem Type 2 diabetes mellitus with hyperglycemia E11.65 Active 92916991 Problem Nuclear cataract of both eyes H25.13 Active 74044706 Problem Presbyopia OU H52.4 Active 26010337 Problem Obstructive sleep apnea G47.33 Active 08810798 Problem Shortness of breath R06.02 Active 672934351 Problem Type 2 diabetes mellitus with diabetic polyneuropathy E11.42 Active 62821577 Problem Lung nodule R91.1 Active 801981843 Problem Mixed hyperlipidemia E78.2 Active 310719942 Problem Primary narcolepsy with cataplexy G47.411 Active 706287572 ALLERGIES Substance Reaction Event Type Date Status Penicillin G Sodium Unknown Drug Allergy Nov, Active Erythromycin Unknown Drug Allergy Nov, Active ENCOUNTERS Encounter Location Date Diagnosis [facility] [address] [facility] [id number] [address] Jan, Type 2 diabetes mellitus with hyperglycemia E11.65 [facility] [address] [address] Dec, Chest pain on breathing R07.1 [facility] [address] [address] Dec, Chest pain on breathing R07.1 [facility] [id number] [place] [address] 78891- 5929 Dec, Well woman exam Z01.419 ; Screening for breast cancer Z12.31 and Screening for colon cancer Z12.11 [facility] [id number] [place] [address] 69814- 3378 Dec, [facility] [id number] [place] [address] 73230- 5724 Dec, Type 2 diabetes mellitus with hyperglycemia E11.65 ; Mixed hyperlipidemia E78.2 and Gastroesophageal reflux disease with esophagitis K21.0 [facility] [id number] [place] [address] 56318- 8973 Nov, Type 2 diabetes mellitus with hyperglycemia E11.65 and Mixed hyperlipidemia E78.2 [facility] [id number] [place] [address] 50994- 2671 Nov, [facility] [address] [address] 18[address] Oct, [facility] [address] [address] 3965 Oct, [facility] [address], [place] [address] 8848 September, [facility] [id number] [place] [address] 14032- 2346 September, Type 2 diabetes mellitus with hyperglycemia E11.65 [facility] [address] [address] 1242 September, Type 2 diabetes mellitus with hyperglycemia E11.65 [facility] [id number] [place] [address] 69546- 5901 September, Porokeratosis Q82.8 and Type 2 diabetes mellitus with diabetic polyneuropathy E11.42 [facility] [id number] [place] [address] 98893 -7037 Aug, Seasonal allergic rhinitis, unspecified trigger J30.2 [facility] [address] 49250- 7692 Aug, [facility] [address] 52832- 6334 Aug, Bilateral low back pain without sciatica M54.5 [facility] [address] [id number] Aug, Dental examination V72.2 and Dental examination Z01.20 [place] [address] 05678- 0700 Aug, Dental examination Z01.20 and Dental caries K02.9 [place] [address] 49216- 4080 Aug, Obstructive sleep apnea G47.33 ; Obesity E66.9 ; Type 2 diabetes mellitus with hyperglycemia E11.65 ; Palpitations R00.2 and Corns and callosities L84 [place] [id number] [place] [address] 40970- 9051 Jul, [facility] [address] 25210- 7447 Jul, [place] [address] 65801- 9496 Jun, Type 2 diabetes mellitus with hyperglycemia E11.65 ; Colon cancer screening Z12.11 ; Mixed hyperlipidemia E78.2 ; Non-alcoholic fatty liver disease K76.0 ; Gastroesophageal reflux disease with esophagitis K21.0 and Pain of upper abdomen R10.10 [place] [address] [place] [address]- 1486 Jun, Falls frequently R29.6 [facility] [address] 76082 -7998 May, Infection of nose J34.89 [facility] [address] 22937- 3649 May, Bilateral low back pain without sciatica M54.5 [place] [address] 20075- 5646 May, Type 2 diabetes mellitus with diabetic polyneuropathy E11.42 ; Obstructive sleep apnea G47.33 and Type 2 diabetes mellitus with hyperglycemia E11.65 [place] [address] 23306- 9438 Apr, Bilateral low back pain without sciatica M54.5 [place] [address] 38008- 3997 Apr, Mixed hyperlipidemia E78.2 and Type 2 diabetes mellitus with hyperglycemia E11.65 [place] [address] 21092- 6336 Apr, Type 2 diabetes mellitus with diabetic polyneuropathy E11.42 [place] [address] 79627- 4140 Apr, [place] [address] 13839- 6515 Apr, Skin lesion of left arm L98.9 and Skin lesion of left leg L98.9 [place] [address] 27972- 8506 Mar, Bilateral low back pain without sciatica M54.5 [facility] [address] 12746- 1557 Mar, Plantar fasciitis of left foot M72.2 ; Bursitis of left foot M71.572 and Type 2 diabetes mellitus with diabetic polyneuropathy E11.42 [place] [id number] [place] [address] 65207- 7622 Feb, Non-alcoholic fatty liver disease K76.0 ; Keratoacanthoma L85.8 ; Seborrheic keratosis L82.1 ; Type 2 diabetes mellitus with hyperglycemia E11.65 and Nuclear cataract of both eyes H25.13 [facility] [address] [id number] Feb, [facility] [address] 30857- 8564 Feb, [place] [address] 19199- 7563 Feb, [place] [address] 44412- 1198 Feb, Type 2 diabetes mellitus with hyperglycemia E11.65 ; Back muscle spasm M62.830 and Encounter for immunization Z23 [facility] [address] 01521- 7879 Jan, Plantar fasciitis of left foot M72.2 [place] [address] 92180- 8720 Dec, [facility] [address] 69360- 6216 Dec, Plantar fasciitis of left foot M72.2 and Tarsal tunnel syndrome of left side G57.52 [facility] [id number] [place] [address] 97941- 5865 Dec, [facility] [address] 81738 -1450 Nov, Mary Jane rash of groin B37.89 and Rash and nonspecific skin eruption R21 [facility] [id number] [place] [address] 33385- 5526 Nov, [facility] [address] 99672- 3515 Oct, Type 2 diabetes mellitus with hyperglycemia E11.65 and Mixed hyperlipidemia E78.2 [place] [id number] [place] [address] 54396- 8749 Oct, [place] [id number] [place] [address] 78692- 8232 Oct, Chest pain, unspecified R07.9 ; Palpitations R00.2 ; Syncope R55 and Mixed hyperlipidemia E78.2 [place] [address] 69032- 4547 Oct, Plantar fasciitis, bilateral M72.2 and Type 1 diabetes mellitus with diabetic neuropathy E10.40 [place] [address] 88561- 6474 Oct, [place] [id number] [place] [address] 98073- 5489 September, Type 2 diabetes mellitus with hyperglycemia E11.65 [place] [id number] [place] [address] 06846- 0565 September, Type 2 diabetes mellitus with hyperglycemia E11.65 ; Type 2 diabetes mellitus with diabetic polyneuropathy E11.42 ; Gastroesophageal reflux disease with esophagitis K21.0 and Headache, unspecified headache type R51 [place] [id number] [place] [address] 67126- 4459 September, [place] [id number] [place] [address] 32748- 2704 September, [facility] [id number] [place] [address] 85128- 9540 September, [facility] [id number] [place] [address] 47976- 5363 September, Other chest pain R07.89 ; Heart palpitations R00.2 ; Mixed hyperlipidemia E78.2 and Obesity E66.9 [place] [id number] [place] [address] 03383- 6819 Aug, [place] [address] [address]- 3887 Aug, Type 2 diabetes mellitus with diabetic polyneuropathy E11.42 and Type 2 diabetes mellitus with hyperglycemia E11.65 [facility] [address] [address]- 0276 Aug, [facility] [address], [place] [address]- 0387 Aug, [facility] [address], [place] [address]- 6795 Aug, [facility] [address], [place] [address]- 2627 Aug, Type 2 diabetes mellitus with hyperglycemia E11.65 [facility] [address], [place] [address]- 9844 Aug, [facility] [address], [place] [address]- 0013 Jul, Type 2 diabetes mellitus with diabetic polyneuropathy E11.42 [facility] [address], [place] [address]- 6934 Jul, Type 2 diabetes mellitus with hyperglycemia E11.65 [facility] [address], [place] [address]- 4677 Jul, [facility] [address], [place] [address]- 1409 Jul, [facility] [address], [place] [address]- 5885 Jul, [facility] [id number] [address]- 1478 Jul, Type 2 diabetes mellitus with diabetic polyneuropathy E11.42 and Type 2 diabetes mellitus with hyperglycemia E11.65 [facility] [id number], [place] [address]- 4998 Jun, Obstructive sleep apnea G47.33 [facility] [id number] [place] [address] 59999- 1109 Jun, Type 2 diabetes mellitus with diabetic polyneuropathy E11.42 ; Primary narcolepsy with cataplexy G47.411 ; Abdominal bloating R14.0 ; Other chest pain R07.89 and Vision problems H54.7 [facility] [id number] [place] [address] 72997- 5385 Jun, [facility] [id number] [place] [address] 17571- 4943 May, [facility] [id number] [place] [address] 52917- 5976 Apr, [place] [id number] [place] [address] 72702- 2441 Apr, Plantar fasciitis of left foot M72.2 [place] [address] 48333- 4541 Mar, [place] [id number] [place] [address] 29923- 8374 Mar, Plantar fasciitis of left foot M72.2 and Type 2 diabetes mellitus with diabetic polyneuropathy E11.42 [facility] [id number] [place] [address] 69242- 0038 Feb, Type 2 diabetes mellitus with hyperglycemia E11.65 ; Mixed hyperlipidemia E78.2 and Encounter for immunization Z23 [facility] [id number] [place] [address] 69958- 4076 Feb, [facility] [id number] [place] [address] 28483- 1218 Feb, [facility] [id number] [place] [address] 40410- 0503 Feb, Type 2 diabetes mellitus with hyperglycemia E11.65 [facility] [id number] [place] [address] 96043- 4483 Feb, Type 2 diabetes mellitus with hyperglycemia E11.65 [facility] [id number], [place] [address]- 7899 Jan, [facility] [id number] [place] [address] 48451- 8022 Dec, Pain in left foot M79.672 ; Other chronic pain G89.29 ; Type 2 diabetes mellitus with hyperglycemia E11.65 ; Obstructive sleep apnea G47.33 ; Falls frequently R29.6 ; Mixed hyperlipidemia E78.2 and Gastroesophageal reflux disease with esophagitis K21.0 [facility] [id number] [place] [address] 07044- 9827 Nov, [facility] [id number] [place] [address] 25750- 2025 Oct, Type 2 diabetes mellitus with diabetic polyneuropathy E11.42 [facility] [id number] [place] [address] 86707- 3723 Oct, [facility] [id number] [place] [address] 37466- 9723 Oct, [facility] [id number] [place] [address] 18888- 3110 September, [facility] [id number] [place] [address] 74118- 7898 September, [facility] [id number] [place] [address] 31798- 8211 September, [facility] [id number] [place] [address] 79197- 8165 September, [facility] [id number] [place] [address] 42783- 0566 September, [facility] [id number] [place] [address] 30817- 0618 Aug, Type 2 diabetes mellitus with hyperglycemia E11.65 ; Mixed hyperlipidemia E78.2 and Right carpal tunnel syndrome G56.01 [facility] [id number] [address]- 8605 Aug, [facility] [address], [place] [address]- 9527 Jul, [facility] [id number] [place] [address] 92150- 5795 Jun, [facility] [id number] [place] [address] 44715- 2868 Jun, [facility] [id number] [place] [address] 88203- 9944 May, [facility] [id number] [place] [address] 50150- 9995 May, [facility] [id number] [place] [address] 32889- 1760 May, Type 2 diabetes mellitus with hyperglycemia E11.65 and Falls E888.9 [facility] [id number] [place] [address] 89790- 8021 Apr, Type 2 diabetes mellitus with hyperglycemia E11.65 [facility] [id number] [place] [address] 63976- 6584 Apr, [facility] [id number] [place] [address] 68269- 3053 Apr, Type 2 diabetes mellitus with hyperglycemia E11.65 [facility] [id number] [place] [address] 14094- 9466 Apr, [facility] [id number] [place] [address] 93813- 8138 Mar, Type 2 diabetes mellitus with diabetic polyneuropathy E11.42 ; Bilateral low back pain without sciatica M54.5 and Dry nose J34.89 [facility] [address], [place] [address]- 0784 Mar, Palpitations R00.2 ; Syncope R55 ; DM (diabetes mellitus) E11.9 and Obesity E66.9 [facility] [id number] [place] [address] 60985- 8642 Mar, [facility] [id number] [place] [address] 46012- 7705 Mar, [facility] [id number] [place] [address] 90371- 6279 Mar, [facility] [id number] [place] [address] 73047- 4609 Feb, [facility] [id number] [place] [address] 95999- 0548 Jan, [facility] [id number] [place] [address] 30378- 1349 Jan, [facility] [id number] [place] [address] 04867- 7208 Jan, Falls E888.9 and Sinusitis 473.9 [facility] [id number] [place] [address] 58666- 5486 Dec, [facility] [id number] [place] [address] 88687- 9249 Dec, [facility] [id number] [place] [address] 73312- 1655 Dec, [facility] [id number] [place] [address] 86497- 5680 Dec, [facility] [id number] [place] [address] 70113- 3527 Dec, Diabetes mellitus without mention of complication, type II or unspecified type, not stated as uncontrolled 250.00 and Shortness of breath 786.05 [facility] [id number] [place] [address] 16515- 5812 Dec, [facility] [id number] [place] [address] 47498- 9909 Nov, [facility] [id number] [place] [address] 07719- 8159 Nov, [facility] [id number] [place] [address] 96086- 8202 Oct, Restrictive lung disease 518.89 [facility] [id number] [place] [address] 750875- 0314 Oct, [facility] [id number] [place] [address] 222942- 0914 Oct, Shortness of breath 786.05 [facility] [id number] [place] [address] 96103- 6454 September, Other nonspecific abnormal finding of lung field 793.19 ; Diabetes mellitus without mention of complication, type II or unspecified type, not stated as uncontrolled 250.00 ; Hyperlipidemia LDL goal < 100 272.4 ; Narcolepsy, with cataplexy 347.01 ; Shortness of breath 786.05 and Chest pain 786.50 [facility] [id number] [place] [address] 64198- 5792 Aug, [facility] [id number] [place] [address] 81026- 6939 Aug, [facility] [id number] [place] [address] 96261- 9792 Jun, [facility] [id number] [place] [address] 50108- 4617 Jun, [facility] [id number] [place] [address] 33090- 0981 Jun, [facility] [id number] [place] [address] 59247- 3680 Jun, [facility] [id number] [place] [address] 23970- 0755 Jun, [facility] [id number] [place] [address] 380754- 8672 Jun, [facility] [id number] [place] [address] [place] [address]- 5707 Jun, [facility] [place] [facility] [address] [id number] [place] [address]- 4395 Jun, [facility] [place] [facility] [address] [id number] [place] [address]- 1244 May, [facility] [place] [facility] [address] [id number] [place] [address]- 4759 May, [facility] [place] [facility] [address] [id number] [place] [address]- 9078 Apr, [facility] [place] [facility] [address] [id number] [place] [address]- 7259 Apr, [facility] [place] [facility] [address] [id number] [place] [address]- 4667 Mar, [facility] [place] [facility] [address] [id number] [place] [address]- 2149 Mar, [facility] [place] [facility] [address] [id number] [place] [address]- 7847 Mar, [facility] [place] [facility] [address] [id number] [place] [address]- 6192 Mar, [facility] [place] [facility] [address] [id number] [place] [address]- 9683 Nov, [facility] [place] [facility] [address] [id number] [place] [address]- 0286 Nov, [facility] [place] [facility] [address] [id number] [place] [address]- 4745 Nov, [facility] [place] [facility] [address] [id number] [place] [address]- 7628 Nov, [facility] [place] [facility] [address] [id number] [place] [address]- 7129 Oct, [facility] [place] [facility] [address] [id number] [place] [address]- 5488 Oct, [facility] [place] [facility] [address] [id number] [place] [address]- 3837 Oct, [facility] [place] [facility] [address] [id number] [place] [address]- 6285 Oct, [facility] [place] [facility] [address] [id number] [place] [address]- 7913 Oct, [facility] [place] [facility] [address] [id number] [place] [address]- 1375 Oct, [facility] [place] [facility] [address] [id number] [place] [address]- 9505 Oct, [facility] [place] [facility] [address] [id number] [place] [address]- 9332 Oct, [facility] [place] [facility] [address] [id number] [place] [address]- 7121 Oct, [facility] [place] [facility] [address] [id number] [place] [address] Oct, [facility] [place] [facility] [address] [id number] [place] [address] September, [facility] [place] [facility] [address] [id number] [place] [address] September, [facility] [place] [facility] [address] [id number] [place] [address] Aug, [facility] [place] [facility] [address] [id number] [place] [address] 30 Aug, 2013 [facility] [place] [facility] [address] [id number] [place] [address] Aug, [facility] [place] [facility] [address] [id number] [place] [address] Aug, [facility] [place] [facility] [address] [id number] [place] [address] Aug, [facility] [place] [facility] [address] [id number] [place] [address] Aug, [facility] [place] [facility] [address] [id number] [place] [address] Jul, [facility] [place] [facility] [address] [id number] [place] [address] Jul, [facility] [place] [facility] [address] [id number] [place] [address] Jul, [facility] [place] [facility] [address] [id number] [place] [address] Jul, [facility] [place] [facility] [address] [id number] [place] [address] Jul, [facility] [place] [facility] [address] [id number] [place] [address] Jul, [facility] [place] [facility] [address] [id number] [place] [address] Jul, [facility] [place] [facility] [address] [id number] [place] [address] Jul, [facility] [place] [facility] [address] [id number] [place] [address] Jul, [facility] [place] [facility] [address] [id number] [place] [address] Jul, [facility] [place] [facility] [address] [id number] [place] [address] Jul, [facility] [place] [facility] [address] [id number] [place] [address] 19 Jul, 2013 [facility] [place] [facility] [address] [id number] [place] [address] 19 Jul, 2013 [facility] [place] [facility] [address] [id number] [place] [address] 14 Jul, 2013 [facility] [place] [facility] [address] [id number] [place] [address] 14 Jul, 2013 [facility] [place] [facility] [address] [id number] [place] [address] Jul, [facility] [place] [facility] [address] [id number] [place] [address] Jun, [facility] [place] [facility] [address] [id number] [place] [address] Jun, [facility] [place] [facility] [address] [id number] [place] [address] Jun, [facility] [place] [facility] [address] [id number] [place] [address] Jun, [facility] [place] [facility] [address] [id number] [place] [address] Jun, [facility] [place] [facility] [address] [facility] [id number] [place] [address] Jun, [facility] [place] [facility] [address] [id number] [place] [address] Jun, [facility] [place] [facility] [address] [id number] [place] [address] Jun, [facility] [place] [facility] [address] [facility] [id number] [place] [address] Jun, [facility] [place] [facility] [address] [facility] [id number] [place] [address] Jun, [facility] [place] [facility] [address] [id number] [place] [address] Jun, [facility] [place] [facility] [address] [id number] [place] [address] Jun, [facility] [place] [facility] [address] [id number] [place] [address] 14 Jun, 2013 [facility] [place] [facility] [address] [facility] [id number] [place] [address] 13 Jun, 2013 [facility] [place] [facility] [address] [facility] [id number] [place] [address] 13 Jun, 2013 [facility] [place] [facility] [address] [id number] [place] [address] 13 Jun, 2013 [facility] [place] [facility] [address] [id number] [place] [address] 13 Jun, 2013 [facility] [place] [facility] [address] [facility] [id number] [place] [address] 12 Jun, 2013 [facility] [place] [facility] [address] [id number] [place] [address] 12 Jun, 2013 [facility] [place] [facility] [address] [id number] [place] [address] Jun, 2013 [facility] [place] [facility] [address] [facility] [id number] [place] [address] Jun, 2013 [facility] [place] [facility] [address] [id number] [address] 10 Jun, 2013 [facility] [place] [facility] [address] [facility] [id number] [place] [address] Jun, 2013 [facility] [place] [facility] [address] [facility] [id number] [place] [address] 07 Jun, 2013 [facility] [place] [facility] [address] [id number] [address] Jun, 2013 [facility] [place] [facility] [address] [facility] [id number] [address] Jun, 2013 [facility] [place] [facility] [address] [facility] [id number] [place] [address] Jun, 2013 [facility] [place] [facility] [address] [facility] [id number] [place] [address] Jun, 2013 [facility] [place] [facility] [address] [facility] [id number] [place] [address] Jun, 2013 [facility] [place] [facility] [address] [facility] [id number], [place] [address] Jun, [facility] [place] [facility] [address] [id number] [place] [address] May, [facility] [place] [facility] [address] [id number] [place] [address] May, [facility] [place] [facility] [address] [id number] [place] [address] May, [facility] [place] [facility] [address] [id number] [place] [address]40 May, [facility] [place] [facility] [address] [id number] [place] [address]- [address] May, [facility] [place] [facility] [address] [id number] [place] [address] May, [facility] [place] [facility] [address] [id number] [place] [address] May, [facility] [place] [facility] [address] [id number] [place] [address] May, [facility] [place] [facility] [address] [id number] [place] [address] May, [facility] [place] [facility] [address] [id number] [place] [address] May, [facility] [place] [facility] [address] [id number] [place] [address]- [address] May, [facility] [place] [facility] [address] [id number] [place] [address] May, [facility] [place] [facility] [address] [id number] [place] [address] May, [facility] [place] [facility] [address] [id number] [place] [address] May, [facility] [place] [facility] [address] [id number] [place] [address] May, [facility] [place] [facility] [address] [id number] [address] Apr, [facility] [address] [id number] [address] Apr, [facility] [address] [id number] [address] Dec, [facility] [address] [id number] [address] Nov, [facility] [address] [facility] [id number], [place] [address] May, [facility] [id number] [address] Apr, [facility] [id number] [address] Apr, [facility] [id number] [address] Apr, [facility] [address] [id number] [address] Apr, IMMUNIZATIONS No Known Immunizations SOCIAL HISTORY Never Assessed REASON FOR VISIT DM Visit -- joanie joseph PLAN OF CARE Activity Details Follow Up 3 Months Reason:DMII VITAL SIGNS Height 64 in 2017-11-28 Weight 195.09 lbs 2017-11-28 Temperature 98.7 degrees Fahrenheit 2017-11-28 Heart Rate 82 bpm 2017-11-28 Respiratory Rate 20 2017-11-28 BMI 33.48 kg/m2 2017-11-28 Blood pressure systolic 120 mmHg 2017-11-28 Blood pressure diastolic 78 mmHg 2017-11-28 MEDICATIONS Medication Instructions Dosage Frequency Start Date End Date Duration Status Blood Glucose Test Strip and Lancets DX- E11.65 3 times a day test 3 times per day 8h Nov, Active Gabapentin 300 MG Orally Three times a day 3 capsules 8h Mar, 30 days Active Test strips Contour next test strips 2 times a day as directed 12h Oct, Active Blood Glucose Monitor System w/Device DX- E11.65 3 times a day test 3 times per day 8h Nov, Active Pen [place] 32G X 4 MM as directed Dec, 90 days Active ReliOn Blood Glucose Test - subcutaneously 4 times a day DX: E11.65 test blood sugar September, Active NovoLog Flexpen 100 UNIT/ML Subcutaneous 3 times a day 40 units 8h Dec, Active Test strips Test Strips Contour teststrips directed 12h Dec, Active Famotidine 20 mg Orally twice a day 1 tablet at bedtime 12h 90 days Not-Taking Calamine - Active Blood Glucose Monitor Contour NEXT 2 times a day test blood sugar 12h September, Active Levemir Flexpen 100 unit/mL (3 mL) subcutaneous 2 times a day 60 units 12h Aug, Active Blood Glucose Test Strip Contour NEXT 2 times a day test blood sugar 12h September, Active Proventil HFA 108 (90 Base) MCG/ACT Inhalation every 4 hrs 2 puffs as needed 4h Dec, Active Carafate 1 GM Orally Twice a day 1 tablet at bedtime on an empty stomach before meals 12h 90 days Not-Taking Lancets - subcutaneously 4 times a day DX: E11.65 test blood sugar September Active Atorvastatin Calcium 40 mg Orally Once a day 1 tablet 24h 20 Jun, 2017 Active RESULTS Name Result Date Reference Range A1C (IN HOUSE) 2017-11-28 A1C IN HOUSE 9.5 4.3 - 5.6 % Previous A1c 9.8 Lot [id number] Exp date 07/2019 PROCEDURES Procedure Date Ordered Result Body Site GLYCATED HEMOGLOBIN TEST November 28, 2017 INSTRUCTIONS MEDICATIONS ADMINISTERED No Known Medications MEDICAL (GENERAL) HISTORY Type Description Date Medical History asthma Medical History type II diabetes Medical History sleep apnea Medical History narcolepsy Surgical History hysterectomy, partial Hospitalization History Chest pain-[facility] 02/27/17
--- OUTSIDE RECORDS SUMMARY | 2018-03-08 22:51 | XMS REPORT ---
Author Author JEFF BELTRÁN Organization [facility] Address [address] [place] [address] Care Team Providers Care Department Clerk Name Role Phone MARGIE BELTRÁNTA Unavailable PROBLEMS Type Condition ICD9-CM Code KXR00-AQ Code Onset Dates Condition Status SNOMED Code Problem Right carpal tunnel syndrome G56.01 Active 01499395 Problem Gastroesophageal reflux disease with esophagitis K21.0 Active 771782547 Problem Falls frequently R29.6 Active 220755626 Problem Porokeratosis Q82.8 Active 279410210 Problem Posterior subcapsular age-related cataract of both eyes H25.043 Active 6602870 Problem Non-alcoholic fatty liver disease K76.0 Active 792611674 Problem Delayed gastric emptying K30 Active 095109976 Problem Pain in left foot M79.672 Active 0012096 Problem Other chronic pain G89.29 Active 09571093 Problem Tarsal tunnel syndrome of left side G57.52 Active 94396244 Problem Obesity E66.9 Active 490730908 Problem Hypermetropia, bilateral H52.03 Active 55035631 Problem Type 2 diabetes mellitus with hyperglycemia E11.65 Active 64415351 Problem Nuclear cataract of both eyes H25.13 Active 47077791 Problem Presbyopia OU H52.4 Active 67515478 Problem Obstructive sleep apnea G47.33 Active 86282132 Problem Shortness of breath R06.02 Active 753158044 Problem Type 2 diabetes mellitus with diabetic polyneuropathy E11.42 Active 69919955 Problem Lung nodule R91.1 Active 457741659 Problem Mixed hyperlipidemia E78.2 Active 213068904 Problem Primary narcolepsy with cataplexy G47.411 Active 130537632 ALLERGIES Substance Reaction Event Type Date Status Penicillin G Sodium Unknown Drug Allergy Dec, Active Erythromycin Unknown Drug Allergy Dec, Active ENCOUNTERS Encounter Location Date Diagnosis [facility] [address] [facility] [id number] [address] Jan, Type 2 diabetes mellitus with hyperglycemia E11.65 [facility] [address] [address] Dec, Chest pain on breathing R07.1 [facility] [address] [address] Dec, Chest pain on breathing R07.1 [facility] [id number] [place] [address] 96140- 5807 Dec, Well woman exam Z01.419 ; Screening for breast cancer Z12.31 and Screening for colon cancer Z12.11 [facility] [id number] [place] [address] 54063- 6383 Dec, [facility] [id number] [place] [address] 10101- 0671 Dec, Type 2 diabetes mellitus with hyperglycemia E11.65 ; Mixed hyperlipidemia E78.2 and Gastroesophageal reflux disease with esophagitis K21.0 [facility] [id number] [place] [address] 57730- 0712 Nov, Type 2 diabetes mellitus with hyperglycemia E11.65 and Mixed hyperlipidemia E78.2 [facility] [id number] [place] [address] 74464- 9792 Nov, [facility] [address] [address] 4586 Oct, [facility] [id number] [place] [address] 53927- 5167 Oct, [facility] [id number] [place] [address] 10999- 7745 September, [facility] [id number] [place] [address] 33555- 5801 September, Type 2 diabetes mellitus with hyperglycemia E11.65 [facility] [address] [address] 4[address] September, Type 2 diabetes mellitus with hyperglycemia E11.65 [facility] [id number] [place] [address] 75003- 8580 September, Porokeratosis Q82.8 and Type 2 diabetes mellitus with diabetic polyneuropathy E11.42 [facility] [id number] [place] [address] 22701 -8932 Aug, Seasonal allergic rhinitis, unspecified trigger J30.2 [facility] [address] 63058- 2600 Aug, [facility] [address] 09376- 2320 Aug, Bilateral low back pain without sciatica M54.5 [facility] [address] [id number] Aug, Dental examination V72.2 and Dental examination Z01.20 [place] [address] 16724- 2335 Aug, Dental examination Z01.20 and Dental caries K02.9 [place] [address] 97771- 8471 Aug, Obstructive sleep apnea G47.33 ; Obesity E66.9 ; Type 2 diabetes mellitus with hyperglycemia E11.65 ; Palpitations R00.2 and Corns and callosities L84 [place] [id number] [place] [address] 78095- 6336 Jul, [place] [address] 98363- 7352 Jul, [place] [address] 02201- 0263 Jun, Type 2 diabetes mellitus with hyperglycemia E11.65 ; Colon cancer screening Z12.11 ; Mixed hyperlipidemia E78.2 ; Non-alcoholic fatty liver disease K76.0 ; Gastroesophageal reflux disease with esophagitis K21.0 and Pain of upper abdomen R10.10 [place] [address] 47021- 5138 Jun, Falls frequently R29.6 [facility] [id number] [place] [address] 95597 -5953 May, Infection of nose J34.89 [facility] [id number] [place] [address] 25687- 6804 May, Bilateral low back pain without sciatica M54.5 [place] [id number] [place] [address] 55847- 1187 May, Type 2 diabetes mellitus with diabetic polyneuropathy E11.42 ; Obstructive sleep apnea G47.33 and Type 2 diabetes mellitus with hyperglycemia E11.65 [place] [id number] [place] [address] 24054- 5437 Apr, Bilateral low back pain without sciatica M54.5 [place] [id number] [place] [address] 98798- 5930 Apr, Mixed hyperlipidemia E78.2 and Type 2 diabetes mellitus with hyperglycemia E11.65 [place] [id number] [place] [address] 49777- 8810 Apr, Type 2 diabetes mellitus with diabetic polyneuropathy E11.42 [place] [id number] [place] [address] 99737- 2103 Apr, [place] [id number] [place] [address] 79599- 0521 Apr, Skin lesion of left arm L98.9 and Skin lesion of left leg L98.9 [place] [id number] [place] [address] 07370- 2915 Mar, Bilateral low back pain without sciatica M54.5 [facility] [id number] [place] [address] 62094- 3000 Mar, Plantar fasciitis of left foot M72.2 ; Bursitis of left foot M71.572 and Type 2 diabetes mellitus with diabetic polyneuropathy E11.42 [place] [id number] [place] [address] 71886- 2047 Feb, Non-alcoholic fatty liver disease K76.0 ; Keratoacanthoma L85.8 ; Seborrheic keratosis L82.1 ; Type 2 diabetes mellitus with hyperglycemia E11.65 and Nuclear cataract of both eyes H25.13 [facility] [id number] [place] [address] [id number] Feb, [facility] [address] 60534- 2473 Feb, [place] [address] 29935- 0314 Feb, [place] [address] 20562- 3961 Feb, Type 2 diabetes mellitus with hyperglycemia E11.65 ; Back muscle spasm M62.830 and Encounter for immunization Z23 [place] [address] 34524- 7940 Jan, Plantar fasciitis of left foot M72.2 [place] [address] 32315- 7847 Dec, [facility] [id number] [place] [address] 84756- 2343 Dec, Plantar fasciitis of left foot M72.2 and Tarsal tunnel syndrome of left side G57.52 [facility] [id number] [place] [address] 49480- 6730 Dec, [facility] [id number] [place] [address] 02725 -8150 Nov, Mary Jane rash of groin B37.89 and Rash and nonspecific skin eruption R21 [facility] [id number] [place] [address] 93208- 3208 Nov, [facility] [id number] [place] [address] 87345- 4575 Oct, Type 2 diabetes mellitus with hyperglycemia E11.65 and Mixed hyperlipidemia E78.2 [place] [id number] [place] [address] 49808- 9972 Oct, [place] [address] 57417- 9845 Oct, Chest pain, unspecified R07.9 ; Palpitations R00.2 ; Syncope R55 and Mixed hyperlipidemia E78.2 [place] [address] 76252- 1640 Oct, Plantar fasciitis, bilateral M72.2 and Type 1 diabetes mellitus with diabetic neuropathy E10.40 [place] [address] 48168- 2611 Oct, [place] [address] 31492- 0397 September, Type 2 diabetes mellitus with hyperglycemia E11.65 [place] [address] 97123- 4535 September, Type 2 diabetes mellitus with hyperglycemia E11.65 ; Type 2 diabetes mellitus with diabetic polyneuropathy E11.42 ; Gastroesophageal reflux disease with esophagitis K21.0 and Headache, unspecified headache type R51 [place] [id number] [place] [address] 03569- 7885 September, [place] [id number] [place] [address] 75635- 1275 September, [place] [id number] [place] [address] 80005- 7939 September, [place] [id number] [place] [address] 61167- 1343 September, Other chest pain R07.89 ; Heart palpitations R00.2 ; Mixed hyperlipidemia E78.2 and Obesity E66.9 [place] [id number] [place] [address] 54054- 9254 Aug, [place] [address] [address]- 2537 Aug, Type 2 diabetes mellitus with diabetic polyneuropathy E11.42 and Type 2 diabetes mellitus with hyperglycemia E11.65 [facility] [address] [address]- 1260 Aug, [facility] [address] [address]- 9177 Aug, [facility] [address] [address]- 7295 Aug, [facility] [address] [address]- 9085 Aug, Type 2 diabetes mellitus with hyperglycemia E11.65 [facility] [address] [address]- 4776 Aug, [facility] [address] [address]- 3627 Jul, Type 2 diabetes mellitus with diabetic polyneuropathy E11.42 [facility] [address] [address]- 5950 Jul, Type 2 diabetes mellitus with hyperglycemia E11.65 [facility] [address], [place] [address]- 5768 Jul, [facility] [address], [place] [address]- 0510 Jul, [facility] [address], [place] [address]- 1213 Jul, [facility] [address], [place] [address]- 7824 Jul, Type 2 diabetes mellitus with diabetic polyneuropathy E11.42 and Type 2 diabetes mellitus with hyperglycemia E11.65 [facility] [address] [address]- 4672 Jun, Obstructive sleep apnea G47.33 [facility] [id number] [place] [address] 09860- 6677 Jun, Type 2 diabetes mellitus with diabetic polyneuropathy E11.42 ; Primary narcolepsy with cataplexy G47.411 ; Abdominal bloating R14.0 ; Other chest pain R07.89 and Vision problems H54.7 [facility] [id number] [place] [address] 34470- 1362 Jun, [facility] [id number] [place] [address] 62535- 7791 May, [facility] [id number] [place] [address] 86758- 4474 Apr, [facility] [id number] [place] [address] 71835- 0619 Apr, Plantar fasciitis of left foot M72.2 [facility] [id number] [place] [address] 20322- 6916 Mar, [facility] [id number] [place] [address] 39888- 8515 Mar, Plantar fasciitis of left foot M72.2 and Type 2 diabetes mellitus with diabetic polyneuropathy E11.42 [facility] [id number] [place] [address] 50310- 3397 Feb, Type 2 diabetes mellitus with hyperglycemia E11.65 ; Mixed hyperlipidemia E78.2 and Encounter for immunization Z23 [facility] [id number] [place] [address] 01415- 6467 Feb, [facility] [id number] [place] [address] 33216- 9954 Feb, [facility] [id number] [place] [address] 27749- 9282 Feb, Type 2 diabetes mellitus with hyperglycemia E11.65 [facility] [id number] [place] [address] 79054- 3954 Feb, Type 2 diabetes mellitus with hyperglycemia E11.65 [facility] [address] [address]- 4002 Jan, [facility] [id number] [place] [address] 98165- 0612 Dec, Pain in left foot M79.672 ; Other chronic pain G89.29 ; Type 2 diabetes mellitus with hyperglycemia E11.65 ; Obstructive sleep apnea G47.33 ; Falls frequently R29.6 ; Mixed hyperlipidemia E78.2 and Gastroesophageal reflux disease with esophagitis K21.0 [facility] [id number] [place] [address] 00753- 5707 Nov, [facility] [id number] [place] [address] 46305- 1550 Oct, Type 2 diabetes mellitus with diabetic polyneuropathy E11.42 [facility] [id number] [place] [address] 62778- 9026 Oct, [facility] [id number] [place] [address] 13945- 8598 Oct, [facility] [id number] [place] [address] 82797- 8024 September, [facility] [id number] [place] [address] 19753- 3671 September, [facility] [id number] [place] [address] 69853- 9795 September, [facility] [id number] [place] [address] 90612- 4097 September, [facility] [address] [address]- 4467 September, [facility] [id number] [place] [address] 24568- 7585 Aug, Type 2 diabetes mellitus with hyperglycemia E11.65 ; Mixed hyperlipidemia E78.2 and Right carpal tunnel syndrome G56.01 [facility] [id number] [place] [address] 03013- 7805 Aug, [facility] [address] [address]- 2455 Jul, [facility] [id number] [place] [address] 443122- 0278 Jun, [facility] [id number] [place] [address] 12543- 1480 Jun, [facility] [id number] [place] [address] 20604- 8024 May, [facility] [id number] [place] [address] 23718- 9917 May, [facility] [id number] [place] [address] 97771- 3715 May, Type 2 diabetes mellitus with hyperglycemia E11.65 and Falls E888.9 [place] [id number] [place] [address] 23846- 1735 Apr, Type 2 diabetes mellitus with hyperglycemia E11.65 [facility] [id number] [place] [address] 35108- 7609 Apr, [facility] [id number] [place] [address] 35767- 1092 Apr, Type 2 diabetes mellitus with hyperglycemia E11.65 [facility] [id number] [place] [address] 07928- 9928 Apr, [facility] [id number] [place] [address] 73245- 6023 Mar, Type 2 diabetes mellitus with diabetic polyneuropathy E11.42 ; Bilateral low back pain without sciatica M54.5 and Dry nose J34.89 [place] [id number] [place] [address] 52675- 2882 Mar, Palpitations R00.2 ; Syncope R55 ; DM (diabetes mellitus) E11.9 and Obesity E66.9 [place] [address] [place] [address] [place] [address]- 9313 Mar, [facility] [id number] [address]- 9328 Mar, [facility] [id number] [address]- 5605 Mar, [facility] [id number] [place] [address] 41696- 5125 Feb, [facility] [id number] [place] [address] 87438- 7343 Jan, [facility] [id number] [place] [address] 77260- 6627 Jan, [facility] [id number] [place] [address] 39886- 0724 Jan, Falls E888.9 and Sinusitis 473.9 [facility] [id number] [place] [address] 17587- 4334 Dec, [facility] [id number] [place] [address] 37290- 9717 Dec, [facility] [id number] [place] [address] 29538- 6065 Dec, [facility] [id number] [place] [address] 36931- 2554 Dec, [facility] [address] [address]- 3821 Dec, Diabetes mellitus without mention of complication, type II or unspecified type, not stated as uncontrolled 250.00 and Shortness of breath 786.05 [facility] [address] [address]- 9496 Dec, [facility] [address] [address]- 4538 Nov, [facility] [id number] [place] [address] 68127- 1499 Nov, [facility] [id number] [place] [address] 67235- 3409 Oct, Restrictive lung disease 518.89 [facility] [id number] [place] [address] 83899- 8279 Oct, [facility] [id number] [place] [address] 70581- 4265 Oct, Shortness of breath 786.05 [facility] [address] 39186- 6877 September, Other nonspecific abnormal finding of lung field 793.19 ; Diabetes mellitus without mention of complication, type II or unspecified type, not stated as uncontrolled 250.00 ; Hyperlipidemia LDL goal < 100 272.4 ; Narcolepsy, with cataplexy 347.01 ; Shortness of breath 786.05 and Chest pain 786.50 [facility] [address] 03454- 5815 Aug, [facility] [address] 95319- 9991 Aug, [facility] [id number] [place] [address] 65899- 9732 Jun, [facility] [id number] [place] [address] 70327- 6459 Jun, [facility] [id number] [place] [address] 72904- 5856 Jun, [facility] [id number] [place] [address] 04709- 5685 Jun, [facility] [id number] [place] [address] 79456- 8032 Jun, [facility] [id number] [place] [address] 29891- 4816 Jun, [facility] [id number] [place] [address] 62236- 4727 Jun, [facility] [place] [facility] [address] [id number] [place] [address]- 9379 Jun, [facility] [place] [facility] [address] [id number] [place] [address]- 5625 May, [facility] [place] [facility] [address] [id number] [place] [address]- 5846 May, [facility] [place] [facility] [address] [id number] [place] [address]- 4297 Apr, [facility] [place] [facility] [address] [id number] [place] [address]- 2665 Apr, [facility] [place] [facility] [address] [id number] [place] [address]- 8491 Mar, [facility] [place] [facility] [address] [id number] [place] [address]- 0286 Mar, [facility] [place] [facility] [address] [id number] [place] [address]- 3070 Mar, [facility] [place] [facility] [address] [id number] [place] [address]- 1221 Mar, [facility] [place] [facility] [address] [facility] [id number] [place] [address]- 4959 Nov, [facility] [place] [facility] [address] [id number] [place] [address]- 0931 Nov, [facility] [place] [facility] [address] [id number] [place] [address]- 7666 Nov, [facility] [place] [facility] [address] [id number] [place] [address]- 6926 Nov, [facility] [place] [facility] [address] [id number] [place] [address]- 9540 Oct, [facility] [place] [facility] [address] [id number] [place] [address] Oct, [facility] [place] [facility] [address] [id number] [place] [address] Oct, [facility] [place] [facility] [address] [id number] [place] [address] Oct, [facility] [place] [facility] [address] [id number] [place] [address] Oct, [facility] [place] [facility] [address] [id number] [place] [address] Oct, [facility] [place] [facility] [address] [id number] [place] [address] Oct, [facility] [place] [facility] [address] [id number] [place] [address] Oct, [facility] [place] [facility] [address] [id number] [place] [address] Oct, [facility] [place] [facility] [address] [id number] [place] [address] Oct, [facility] [place] [facility] [address] [id number] [place] [address] September, [facility] [place] [facility] [address] [id number] [place] [address] September, [facility] [place] [facility] [address] [id number] [place] [address] Aug, [facility] [place] [facility] [address] [id number] [place] [address] Aug, [facility] [place] [facility] [address] [id number] [place] [address] Aug, [facility] [place] [facility] [address] [id number] [place] [address] Aug, [facility] [place] [facility] [address] [id number] [place] [address] Aug, [facility] [place] [facility] [address] [id number] [place] [address] Aug, [facility] [place] [facility] [address] [id number] [place] [address] Jul, [facility] [place] [facility] [address] [id number] [place] [address] Jul, [facility] [place] [facility] [address] [id number] [place] [address] Jul, [facility] [place] [facility] [address] [id number] [place] [address] Jul, [facility] [place] [facility] [address] [id number] [place] [address] Jul, [facility] [place] [facility] [address] [id number] [place] [address] Jul, [facility] [place] [facility] [address] [id number] [place] [address] Jul, [facility] [place] [facility] [address] [id number] [place] [address] Jul, [facility] [place] [facility] [address] [id number] [place] [address] Jul, [facility] [place] [facility] [address] [id number] [place] [address] Jul, [facility] [place] [facility] [address] [id number] [place] [address] Jul, [facility] [place] [facility] [address] [id number] [place] [address] 19 Jul, 2013 [facility] [place] [facility] [address] [id number] [place] [address] 19 Jul, 2013 [facility] [place] [facility] [address] [id number] [place] [address] 14 Jul, 2013 [facility] [place] [facility] [address] [id number] [place] [address] 119[address] 14 Jul, 2013 [facility] [place] [facility] [address] [facility] [id number] [place] [address] Jul, [facility] [place] [facility] [address] [id number] [place] [address] Jun, [facility] [place] [facility] [address] [id number] [place] [address] Jun, [facility] [place] [facility] [address] [id number] [place] [address] Jun, [facility] [place] [facility] [address] [id number] [place] [address] Jun, [facility] [place] [facility] [address] [facility] [id number] [place] [address] Jun, [facility] [place] [facility] [address] [facility] [id number] [place] [address] Jun, [facility] [place] [facility] [address] [facility] [id number] [place] [address] Jun, [facility] [place] [facility] [address] [facility] [id number] [place] [address] Jun, [facility] [place] [facility] [address] [facility] [id number] [place] [address] Jun, [facility] [place] [facility] [address] [facility] [id number] [place] [address] Jun, [facility] [place] [facility] [address] [facility] [id number] [address] Jun, [facility] [place] [facility] [address] [facility] [id number] [place] [address] 18 Jun, 2013 [facility] [place] [facility] [address] [facility] [id number] [place] [address] 14 Jun, 2013 [facility] [place] [facility] [address] [facility] [id number] [place] [address] 13 Jun, 2013 [facility] [place] [facility] [address] [facility] [id number] [address] 13 Jun, 2013 [facility] [place] [facility] [address] [id number] [place] [address] 13 Jun, 2013 [facility] [place] [facility] [address] [id number] [place] [address]- 6636 13 Jun, 2013 [facility] [place] [facility] [address] [facility] [id number] [place] [address] 12 Jun, 2013 [facility] [place] [facility] [address] [id number] [place] [address]- [address] 12 Jun, 2013 [facility] [place] [facility] [address] [id number] [place] [address]- 1690 Jun, 2013 [facility] [place] [facility] [address] [facility] [id number] [place] [address] 24[address] 11 Jun, 2013 [facility] [place] [facility] [address] [facility] [id number] [place] [address]- 78[address] 10 Jun, 2013 [facility] [place] [facility] [address] [facility] [id number] [place] [address]- [address] 07 Jun, 2013 [facility] [place] [facility] [address] [facility] [id number] [place] [address] 07 Jun, 2013 [facility] [place] [facility] [address] [facility] [id number] [place] [address]- 20[address] 06 Jun, 2013 [facility] [place] [facility] [address] [facility] [id number] [place] [address] Jun, 2013 [facility] [place] [facility] [address] [facility] [id number] [place] [address] Jun, 2013 [facility] [place] [facility] [address] [facility] [id number] [place] [address]- 6067 Jun, 2013 [facility] [place] [facility] [address] [facility] [id number] [place] [address] Jun, 2013 [facility] [place] [facility] [address] [facility] [id number] [place] [address] Jun, [facility] [place] [facility] [address] [id number] [place] [address]- 3565 May, [facility] [place] [facility] [address] [id number] [place] [address]- 6141 May, [facility] [place] [facility] [address] [id number] [place] [address]- 1520 May, [facility] [place] [facility] [address] [id number] [place] [address]- [address] May, [facility] [place] [facility] [address] [id number] [place] [address]- 0134 May, [facility] [place] [facility] [address] [id number] [place] [address]- 0[address] May, [facility] [place] [facility] [address] [id number] [place] [address]- [address]104 May, [facility] [place] [facility] [address] [id number] [place] [address]- 44[address] May, [facility] [place] [facility] [address] [id number] [place] [address]- 4[address] May, [facility] [place] [facility] [address] [id number] [place] [address]- 1808 May, [facility] [place] [facility] [address] [id number] [address] May, [facility] [place] [facility] [address] [id number] [address] May, [facility] [place] [facility] [address] [id number] [place] [address]- 8208 May, [facility] [place] [facility] [address] [id number], [place] [address] May, [facility] [place] [facility] [address] [id number] [place] [address]- 9651 May, [facility] [place] [facility] [address] [id number] [address] Apr, [facility] [address] [id number] [address] Apr, [facility] [id number], [place] [address] Dec, [facility] [id number] [address] Nov, [facility] [id number] [address] May, [facility] [id number] [place] [address] Apr, [facility] [id number] [address] Apr, [facility] [id number] [address] Apr, [facility] [address] [id number], [place] [address] Apr, IMMUNIZATIONS No Known Immunizations SOCIAL HISTORY Never Assessed REASON FOR VISIT Transition of Care., Would like to talk about diabetes.-[facility] PLAN OF CARE Activity Details Follow Up 3 months or as indicated by lab Reason:DM VITAL SIGNS Height 64 in 2017-12-12 Weight 194.8 lbs 2017-12-12 Temperature 98.4 degrees Fahrenheit 2017-12-12 Heart Rate 93 bpm 2017-12-12 Respiratory Rate 20 2017-12-12 BMI 33.43 kg/m2 2017-12-12 Blood pressure systolic 130 mmHg 2017-12-12 Blood pressure diastolic 78 mmHg 2017-12-12 MEDICATIONS Medication Instructions Dosage Frequency Start Date End Date Duration Status Gabapentin 300 MG Orally Three times a day 3 capsules 8h Mar, 30 days Active Pen [place] 32G X 4 MM as directed Dec, 90 days Active Famotidine 20 mg Orally twice a day 1 tablet at bedtime 12h Active Lancets - subcutaneously 4 times a day DX: E11.65 test blood sugar September Active Proventil HFA 108 (90 Base) MCG/ACT Inhalation every 4 hrs 2 puffs as needed 4h 13 Dec, 2014 Active Levemir Flexpen 100 unit/mL (3 mL) subcutaneous 2 times a day 60 units 12h Aug, Active NovoLog Flexpen 100 UNIT/ML Subcutaneous 3 times a day 40 units 8h 07 Dec, 2014 Active Atorvastatin Calcium 40 mg Orally Once a day 1 tablet 24h 20 Jun, 2017 Active Blood Glucose Monitor System w/Device DX- E11.65 3 times a day test 3 times per day 8h Nov, Active ReliOn Blood Glucose Test - subcutaneously 4 times a day DX: E11.65 test blood sugar September, Active RESULTS No Results PROCEDURES No Known procedures INSTRUCTIONS MEDICATIONS ADMINISTERED No Known Medications MEDICAL (GENERAL) HISTORY Type Description Date Medical History asthma Medical History type II diabetes Medical History sleep apnea Medical History narcolepsy Surgical History hysterectomy, partial Hospitalization History Chest pain-[facility] 02/27/17
--- OUTSIDE RECORDS SUMMARY | 2018-03-08 22:52 | XMS REPORT ---
Author Author TAWANA QUINTEN [facility] Address [address] [place] [address] Care Team Providers Care Liquor Tester Name Role Phone QUINTEN GILLIAM Unavailable PROBLEMS Type Condition ICD9-CM Code [id number] Code Onset Dates Condition Status SNOMED Code Problem Right carpal tunnel syndrome G56.01 Active 20492290 Problem Gastroesophageal reflux disease with esophagitis K21.0 Active 834738122 Problem Falls frequently R29.6 Active 185085598 Problem Porokeratosis Q82.8 Active 590593714 Problem Posterior subcapsular age-related cataract of both eyes H25.043 Active 4346177 Problem Non-alcoholic fatty liver disease K76.0 Active 028956037 Problem Delayed gastric emptying K30 Active 588955697 Problem Pain in left foot M79.672 Active 2576118 Problem Other chronic pain G89.29 Active 24767176 Problem Tarsal tunnel syndrome of left side G57.52 Active 35727763 Problem Obesity E66.9 Active 022680106 Problem Hypermetropia, bilateral H52.03 Active 39715319 Problem Type 2 diabetes mellitus with hyperglycemia E11.65 Active 55467960 Problem Nuclear cataract of both eyes H25.13 Active 41509981 Problem Presbyopia OU H52.4 Active 23393558 Problem Obstructive sleep apnea G47.33 Active 38168158 Problem Shortness of breath R06.02 Active 046370104 Problem Type 2 diabetes mellitus with diabetic polyneuropathy E11.42 Active 75040681 Problem Lung nodule R91.1 Active 500739989 Problem Mixed hyperlipidemia E78.2 Active 135943508 Problem Primary narcolepsy with cataplexy G47.411 Active 047067805 ALLERGIES No Information ENCOUNTERS Encounter Location Date Diagnosis [facility] [place] [id number], [place] [address] Dec, Chest pain on breathing R07.1 [facility] [address], [place] [address] Dec, Chest pain on breathing R07.1 [facility] [place] [id number] [place] [address] 96256- 0244 Dec, Well woman exam Z01.419 ; Screening for breast cancer Z12.31 and Screening for colon cancer Z12.11 [facility] [place] [id number] [place] [address] 68112- 4690 Dec, [facility] [place] [id number] [place] [address] 64243- 0865 Dec, Type 2 diabetes mellitus with hyperglycemia E11.65 ; Mixed hyperlipidemia E78.2 and Gastroesophageal reflux disease with esophagitis K21.0 [facility] [place] [id number] [place] [address] 97222- 0611 Nov, Type 2 diabetes mellitus with hyperglycemia E11.65 and Mixed hyperlipidemia E78.2 [facility] [id number] [place] [address] 75072- 1018 Nov, [facility] [place] [id number] [place] [address] 62695- 3376 Oct, [facility] [place] [id number] [place] [address] 09744- 4595 Oct, [facility] [place] [address], [place] [address] 36[address] September, [facility] [place] [id number] [place] [address] 81074- 9317 September, Type 2 diabetes mellitus with hyperglycemia E11.65 [facility] [place] [id number] [place] [address] 56573- 6979 September, Type 2 diabetes mellitus with hyperglycemia E11.65 [facility] [place] [id number] [place] [address] 07147- 0097 September, Porokeratosis Q82.8 and Type 2 diabetes mellitus with diabetic polyneuropathy E11.42 [facility] [address] [address] Aug, Seasonal allergic rhinitis, unspecified trigger J30.2 [facility] [place] [address] 04653- 4818 Aug, [facility] [place] [address] 94766- 4999 Aug, Bilateral low back pain without sciatica M54.5 [facility] [address] [id number] Aug, Dental examination V72.2 and Dental examination Z01.20 [place] [address] 01305- 8580 Aug, Dental examination Z01.20 and Dental caries K02.9 [facility] [address] 07279- 4692 Aug, Obstructive sleep apnea G47.33 ; Obesity E66.9 ; Type 2 diabetes mellitus with hyperglycemia E11.65 ; Palpitations R00.2 and Corns and callosities L84 [place] [address] 46289- 7305 Jul, [facility] [address] 23458- 3622 Jul, [place] [address] 77284- 8125 Jun, Type 2 diabetes mellitus with hyperglycemia E11.65 ; Colon cancer screening Z12.11 ; Mixed hyperlipidemia E78.2 ; Non-alcoholic fatty liver disease K76.0 ; Gastroesophageal reflux disease with esophagitis K21.0 and Pain of upper abdomen R10.10 [facility] [address] 28520- 6740 09 Jun, 2017 Falls frequently R29.6 [facility] [address] [address] May, Infection of nose J34.89 [facility] [id number] [place] [address] 16516- 1564 May, Bilateral low back pain without sciatica M54.5 [facility] [id number] [place] [address] 17851- 9101 May, Type 2 diabetes mellitus with diabetic polyneuropathy E11.42 ; Obstructive sleep apnea G47.33 and Type 2 diabetes mellitus with hyperglycemia E11.65 [facility] [id number] [place] [address] 73151- 5789 Apr, Bilateral low back pain without sciatica M54.5 [facility] [id number] [place] [address] 22301- 3122 Apr, Mixed hyperlipidemia E78.2 and Type 2 diabetes mellitus with hyperglycemia E11.65 [facility] [id number] [place] [address] 54518- 5538 Apr, Type 2 diabetes mellitus with diabetic polyneuropathy E11.42 [facility] [id number] [place] [address] 79666- 0258 Apr, [facility] [id number] [place] [address] 43132- 6306 Apr, Skin lesion of left arm L98.9 and Skin lesion of left leg L98.9 [facility] [id number] [place] [address] 58979- 9751 Mar, Bilateral low back pain without sciatica M54.5 [facility] [id number] [place] [address] 27086- 6427 Mar, Plantar fasciitis of left foot M72.2 ; Bursitis of left foot M71.572 and Type 2 diabetes mellitus with diabetic polyneuropathy E11.42 [facility] [address] [place] [address] 19297- 6174 Feb, Non-alcoholic fatty liver disease K76.0 ; Keratoacanthoma L85.8 ; Seborrheic keratosis L82.1 ; Type 2 diabetes mellitus with hyperglycemia E11.65 and Nuclear cataract of both eyes H25.13 [facility] [id number] [place] [address] [id number] Feb, [facility] [place] [id number] [place] [address] 49460- 3319 Feb, [facility] [place] [id number] [place] [address] 32512- 3393 Feb, [facility] [place] [address] 29247- 5743 Feb, Type 2 diabetes mellitus with hyperglycemia E11.65 ; Back muscle spasm M62.830 and Encounter for immunization Z23 [facility] [place] [address] 52105- 6574 Jan, Plantar fasciitis of left foot M72.2 [facility] [place] [address] 90880- 6536 Dec, [facility] [place] [address] 99561- 2479 Dec, Plantar fasciitis of left foot M72.2 and Tarsal tunnel syndrome of left side G57.52 [facility] [place] [id number] [place] [address] 48345- 0159 Dec, [facility] [address] [place] [address] 24099 -1602 Nov, Mary Jane rash of groin B37.89 and Rash and nonspecific skin eruption R21 [facility] [place] [id number] [place] [address] 07188- 5210 Nov, [facility] [place] [address] 20086- 7038 Oct, Type 2 diabetes mellitus with hyperglycemia E11.65 and Mixed hyperlipidemia E78.2 [facility] [place] [id number] [place] [address] 74320- 5430 Oct, [facility] [place] [address] [place] [address]- 1654 Oct, Chest pain, unspecified R07.9 ; Palpitations R00.2 ; Syncope R55 and Mixed hyperlipidemia E78.2 [facility] [id number] [place] [address] 97992- 8851 Oct, Plantar fasciitis, bilateral M72.2 and Type 1 diabetes mellitus with diabetic neuropathy E10.40 [place] [address] 61569- 8190 Oct, [place] [address] 58022- 1040 September, Type 2 diabetes mellitus with hyperglycemia E11.65 [facility] [id number] [place] [address] 05758- 4748 September, Type 2 diabetes mellitus with hyperglycemia E11.65 ; Type 2 diabetes mellitus with diabetic polyneuropathy E11.42 ; Gastroesophageal reflux disease with esophagitis K21.0 and Headache, unspecified headache type R51 [facility] [id number] [place] [address] 15752- 8901 September, [facility] [id number] [place] [address] 79180- 0025 September, [facility] [id number] [place] [address] 28299- 9489 September, [facility] [id number] [place] [address] 59351- 4615 September, Other chest pain R07.89 ; Heart palpitations R00.2 ; Mixed hyperlipidemia E78.2 and Obesity E66.9 [facility] [id number] [place] [address] 82939- 3841 Aug, [facility] [id number] [place] [address] 39889- 5330 Aug, Type 2 diabetes mellitus with diabetic polyneuropathy E11.42 and Type 2 diabetes mellitus with hyperglycemia E11.65 [place] [address] [place] [address]- 0611 Aug, [facility] [place] [address], [place] [address]- 9576 Aug, [facility] [place] [address], [place] [address]- 2342 Aug, [facility] [place] [address] [place] [address] 58529- 0105 Aug, Type 2 diabetes mellitus with hyperglycemia E11.65 [facility] [place] [address], [place] [address]- 5060 Aug, [facility] [place] [id number] [place] [address] 41850- 4402 Jul, Type 2 diabetes mellitus with diabetic polyneuropathy E11.42 [facility] [place] [address], [place] [address]- 7107 Jul, Type 2 diabetes mellitus with hyperglycemia E11.65 [facility] [place] [address], [place] [address]- 0813 Jul, [facility] [place] [id number] [place] [address] 43716- 9236 Jul, [facility] [place] [address], [place] [address]- 1830 Jul, [facility] [place] [address], [place] [address]- 8393 Jul, Type 2 diabetes mellitus with diabetic polyneuropathy E11.42 and Type 2 diabetes mellitus with hyperglycemia E11.65 [facility] [place] [address], [place] [address]- 7611 Jun, Obstructive sleep apnea G47.33 [facility] [place] [address] [place] [address]- 2329 Jun, Type 2 diabetes mellitus with diabetic polyneuropathy E11.42 ; Primary narcolepsy with cataplexy G47.411 ; Abdominal bloating R14.0 ; Other chest pain R07.89 and Vision problems H54.7 [facility] [place] [id number] [place] [address] 77565- 6477 Jun, [facility] [place] [id number] [place] [address] 56270- 9574 May, [facility] [place] [id number] [place] [address] 96489- 1889 Apr, [facility] [place] [id number] [place] [address] 85086- 7031 Apr, Plantar fasciitis of left foot M72.2 [facility] [place] [address] 40940- 0989 Mar, [facility] [place] [id number] [place] [address] 88344- 9654 Mar, Plantar fasciitis of left foot M72.2 and Type 2 diabetes mellitus with diabetic polyneuropathy E11.42 [facility] [place] [id number] [place] [address] 01680- 6190 Feb, Type 2 diabetes mellitus with hyperglycemia E11.65 ; Mixed hyperlipidemia E78.2 and Encounter for immunization Z23 [facility] [place] [id number] [place] [address] 88656- 7602 Feb, [facility] [place] [id number] [place] [address] 64960- 4742 Feb, [facility] [place] [id number] [place] [address] 04169- 3202 Feb, Type 2 diabetes mellitus with hyperglycemia E11.65 [facility] [place] [id number] [place] [address] 02197- 7125 Feb, Type 2 diabetes mellitus with hyperglycemia E11.65 [facility] [place] [id number] [place] [address] 59324- 6984 Jan, [facility] [place] [id number] [place] [address] 30287- 6561 Dec, Pain in left foot M79.672 ; Other chronic pain G89.29 ; Type 2 diabetes mellitus with hyperglycemia E11.65 ; Obstructive sleep apnea G47.33 ; Falls frequently R29.6 ; Mixed hyperlipidemia E78.2 and Gastroesophageal reflux disease with esophagitis K21.0 [facility] [place] [address], [place] [address]- 4589 Nov, [facility] [place] [id number] [place] [address] 35309- 5809 Oct, Type 2 diabetes mellitus with diabetic polyneuropathy E11.42 [facility] [place] [id number] [place] [address] 43386- 0547 Oct, [facility] [place] [id number] [place] [address] 61894- 1936 Oct, [facility] [place] [id number] [place] [address] 01344- 6902 September, [facility] [place] [id number] [place] [address] 04087- 5407 September, [facility] [place] [id number] [place] [address] 12771- 4547 September, [facility] [place] [id number] [place] [address] 20817- 2232 September, [facility] [place] [id number] [place] [address] 49266- 6580 September, [facility] [place] [id number] [place] [address] 58374- 3891 Aug, Type 2 diabetes mellitus with hyperglycemia E11.65 ; Mixed hyperlipidemia E78.2 and Right carpal tunnel syndrome G56.01 [facility] [place] [id number] [place] [address] 21541- 4714 Aug, [facility] [place] [address], [place] [address]- 7555 Jul, [facility] [place] [id number] [place] [address] 44506- 4714 Jun, [facility] [place] [address] [place] [address] 69568- 2301 Jun, [facility] [place] [id number] [place] [address] 36834- 8090 May, [facility] [place] [address] [place] [address] 90546- 6323 May, [facility] [place] [id number] [place] [address] 40113- 5835 May, Type 2 diabetes mellitus with hyperglycemia E11.65 and Falls E888.9 [facility] [place] [id number] [place] [address] 75614- 2565 Apr, Type 2 diabetes mellitus with hyperglycemia E11.65 [facility] [place] [id number] [place] [address] 56144- 5681 Apr, [facility] [place] [id number] [place] [address] 04966- 6432 Apr, Type 2 diabetes mellitus with hyperglycemia E11.65 [facility] [place] [id number] [place] [address] 51326- 6160 Apr, [facility] [place] [id number] [place] [address] 74370- 1279 Mar, Type 2 diabetes mellitus with diabetic polyneuropathy E11.42 ; Bilateral low back pain without sciatica M54.5 and Dry nose J34.89 [facility] [place] [address] [place] [address] 84025- 4002 Mar, Palpitations R00.2 ; Syncope R55 ; DM (diabetes mellitus) E11.9 and Obesity E66.9 [facility] [place] [address] [place] [address] 86376- 2655 Mar, [facility] [place] [address] [place] [address] 55439- 1283 Mar, [facility] [place] [address] [address]- 1404 Mar, [facility] [place] [address] [place] [address] 56774- 3742 Feb, [facility] [place] [address] [place] [address]- 7290 Jan, [facility] [place] [id number] [place] [address] 80956- 6347 Jan, [facility] [place] [id number] [place] [address] 14638- 6697 Jan, Falls E888.9 and Sinusitis 473.9 [facility] [place] [id number] [place] [address] 24818- 2311 Dec, [facility] [place] [id number] [place] [address] 56467- 1132 Dec, [facility] [place] [id number] [place] [address] 60279- 0893 Dec, [facility] [place] [id number] [place] [address] 50868- 6125 Dec, [facility] [place] [id number] [place] [address] 94614- 8256 Dec, Diabetes mellitus without mention of complication, type II or unspecified type, not stated as uncontrolled 250.00 and Shortness of breath 786.05 [facility] [place] [address], [place] [address]- 4361 Dec, [facility] [place] [address], [place] [address]- 0798 Nov, [facility] [place] [id number] [place] [address] 85193- 0725 Nov, [facility] [place] [address] [place] [address]- 4061 Oct, Restrictive lung disease 518.89 [facility] [place] [id number] [place] [address] 51858- 3939 Oct, [facility] [place] [id number] [place] [address] 22056- 2757 Oct, Shortness of breath 786.05 [facility] [place] [id number] [place] [address] 29552- 6493 September, Other nonspecific abnormal finding of lung field 793.19 ; Diabetes mellitus without mention of complication, type II or unspecified type, not stated as uncontrolled 250.00 ; Hyperlipidemia LDL goal < 100 272.4 ; Narcolepsy, with cataplexy 347.01 ; Shortness of breath 786.05 and Chest pain 786.50 [facility] [place] [address] 83230- 1790 Aug, [facility] [place] [address] [address] Aug, [facility] [place] [address] [address] Jun, [facility] [place] [id number] [place] [address] Jun, [facility] [place] [address] [address] Jun, [facility] [place] [id number] [place] [address] Jun, [facility] [place] [id number] [place] [address] Jun, [facility] [place] [id number] [place] [address] Jun, [facility] [place] [id number] [place] [address] Jun, [facility] [place] [id number] [place] [address] Jun, [facility] [place] [address] [place] [address] May, [facility] [place] [facility] [address] [id number] [place] [address] May, [facility] [place] [facility] [address] [id number] [place] [address] Apr, [facility] [place] [facility] [address] [id number] [place] [address] Apr, [facility] [place] [facility] [address] [id number] [place] [address] Mar, [facility] [place] [facility] [address] [id number] [place] [address] Mar, [facility] [place] [facility] [address] [id number] [place] [address] Mar, [facility] [place] [facility] [address] [id number] [place] [address] Mar, [facility] [place] [facility] [address] [id number] [place] [address] Nov, [facility] [place] [facility] [address] [id number] [place] [address] Nov, [facility] [place] [facility] [address] [id number] [place] [address] Nov, [facility] [place] [facility] [address] [id number] [place] [address] Nov, [facility] [place] [facility] [address] [id number] [place] [address] Oct, [facility] [place] [facility] [address] [id number] [place] [address] Oct, [facility] [place] [facility] [address] [id number] [place] [address] Oct, [facility] [place] [facility] [address] [id number] [place] [address] Oct, [facility] [place] [facility] [address] [id number] [place] [address] 9147 Oct, [facility] [place] [facility] [address] [id number] [place] [address] Oct, [facility] [place] [facility] [address] [id number] [place] [address] 6347 Oct, [facility] [place] [facility] [address] [id number] [place] [address] Oct, [facility] [place] [facility] [address] [id number] [place] [address] Oct, [facility] [place] [facility] [address] [id number] [place] [address] Oct, [facility] [place] [facility] [address] [id number] [place] [address] September, [facility] [place] [facility] [address] [id number] [place] [address] 1080 September, [facility] [place] [facility] [address] [id number] [place] [address]38 Aug, [facility] [place] [facility] [address] [id number] [place] [address] Aug, [facility] [place] [facility] [address] [id number] [place] [address] 76[address] Aug, [facility] [place] [facility] [address] [id number] [place] [address] 9960 Aug, [facility] [place] [facility] [address] [id number] [place] [address] Aug, [facility] [place] [facility] [address] [id number] [place] [address]162 Aug, [facility] [place] [facility] [address] [id number] [place] [address] 4[address] Jul, [facility] [place] [facility] [address] [id number] [place] [address] 8260 Jul, [facility] [place] [facility] [address] [id number] [place] [address] Jul, [facility] [place] [facility] [address] [id number] [place] [address] 3360 Jul, [facility] [place] [facility] [address] [id number] [place] [address] 6180 Jul, [facility] [place] [facility] [address] [id number] [place] [address] 8985 Jul, [facility] [place] [facility] [address] [id number] [place] [address] 9853 Jul, [facility] [place] [facility] [address] [id number] [place] [address] 2449 Jul, [facility] [place] [facility] [address] [id number] [place] [address] 9301 Jul, [facility] [place] [facility] [address] [id number] [place] [address] 8317 Jul, [facility] [place] [facility] [address] [id number] [place] [address] 2555 Jul, [facility] [place] [facility] [address] [id number] [place] [address]- 6175 Jul, [facility] [place] [facility] [address] [id number] [place] [address] 1660 Jul, [facility] [place] [facility] [address] [id number] [place] [address] 3477 Jul, [facility] [place] [facility] [address] [id number] [place] [address] 14 Jul, 2013 [facility] [place] [facility] [address] [id number] [place] [address]248 Jul, [facility] [place] [facility] [address] [id number] [place] [address]- 6795 Jun, [facility] [place] [facility] [address] [id number] [place] [address] 2546 Jun, [facility] [place] [facility] [address] [id number] [place] [address] 1896 Jun, [facility] [place] [facility] [address] [id number] [place] [address] 2546 Jun, [facility] [place] [facility] [address] [id number] [place] [address] 2546 Jun, [facility] [place] [facility] [address] [id number] [place] [address] 2541 Jun, [facility] [place] [facility] [address] [id number] [place] [address] 2546 Jun, [facility] [place] [facility] [address] [facility] [id number] [place] [address]- [address] Jun, [facility] [place] [facility] [address] [id number] [place] [address] 2189 Jun, [facility] [place] [facility] [address] [id number] [place] [address] 9741 Jun, [facility] [place] [facility] [address] [facility] [id number] [place] [address]- 399[address] 18 Jun, 2013 [facility] [place] [facility] [address] [facility] [id number] [place] [address]- 6025 18 Jun, 2013 [facility] [place] [facility] [address] [id number] [place] [address]- 2548 14 Jun, 2013 [facility] [place] [facility] [address] [id number] [place] [address]- 2546 13 Jun, 2013 [facility] [place] [facility] [address] [id number] [place] [address]- 2546 13 Jun, 2013 [facility] [place] [facility] [address] [facility] [id number] [place] [address]- 7016 Jun, [facility] [place] [facility] [address] [id number] [place] [address]- 6275 13 Jun, 2013 [facility] [place] [facility] [address] [id number] [place] [address]- 6921 12 Jun, 2013 [facility] [place] [facility] [address] [id number] [place] [address]- 5220 12 Jun, 2013 [facility] [place] [facility] [address] [facility] [id number] [place] [address] 4713 Jun, 2013 [facility] [place] [facility] [address] [id number] [place] [address]- 6327 Jun, 2013 [facility] [place] [facility] [address] [facility] [id number] [place] [address]- 4558 10 Jun, 2013 [facility] [place] [facility] [address] [facility] [id number] [place] [address]- 9043 07 Jun, 2013 [facility] [place] [facility] [address] [id number] [place] [address] Jun, 2013 [facility] [place] [facility] [address] [facility] [id number] [place] [address]- 0074 Jun, 2013 [facility] [place] [facility] [address] [facility] [id number] [place] [address]- 5288 Jun, 2013 [facility] [place] [facility] [address] [facility] [id number] [place] [address]- 0075 Jun, 2013 [facility] [place] [facility] [address] [facility] [id number] [place] [address]- 7441 Jun, 2013 [facility] [place] [facility] [address] [facility] [id number] [place] [address]- 9532 Jun, 2013 [facility] [place] [facility] [address] [facility] [id number] [place] [address]- 4468 Jun, 2013 [facility] [place] [facility] [address] [facility] [id number] [place] [address]- 0042 May, [facility] [place] [facility] [address] [facility] [id number] [place] [address]- 2546 May, [facility] [place] [facility] [address] [id number] [place] [address]- 3836 May, [facility] [place] [facility] [address] [id number] [place] [address]- 2343 May, [facility] [place] [facility] [address] [id number] [place] [address]- 4846 May, [facility] [place] [facility] [address] [id number] [place] [address]- 6184 May, [facility] [place] [facility] [address] [id number] [place] [address]- 6971 May, [facility] [place] [facility] [address] [id number] [place] [address]- 0192 May, [facility] [place] [facility] [address] [id number] [place] [address]- 2693 May, [facility] [place] [facility] [address] [id number] [place] [address]- 0082 May, [facility] [place] [facility] [address] [id number] [place] [address]- 6249 May, [facility] [place] [facility] [address] [id number] [place] [address]- 7084 May, [facility] [place] [facility] [address] [id number] [place] [address]- 1167 May, [facility] [place] [facility] [address] [id number] [place] [address]- 6960 May, [facility] [place] [facility] [address] [id number] [place] [address]- 4539 May, [facility] [place] [facility] [address] [id number] [place] [address]- 9429 Apr, [facility] [place] [facility] [address] [id number] [place] [address]- 6392 Apr, [facility] [place] [facility] [address] [id number] [place] [address]- 2546 Dec, [facility] [place] [address] [facility] [id number], [place] [address] Nov, [facility] [place] [address] [facility] [id number], [place] [address]- [address] May, [facility] [place] [address] [id number] [address] Apr, [facility] [place] [address] [id number] [address] Apr, [facility] [place] [address] [id number], [place] [address] Apr, [facility] [place] [address] [id number], [place] [address] Apr, IMMUNIZATIONS No Known Immunizations SOCIAL HISTORY Never Assessed REASON FOR VISIT glucometer and test strips PLAN OF CARE VITAL SIGNS MEDICATIONS Medication Instructions Dosage Frequency Start Date End Date Duration Status Blood Glucose Test Strip and Lancets DX- E11.65 3 times a day test 3 times per day 8h Nov, Active Blood Glucose Monitor System w/Device DX- E11.65 3 times a day test 3 times per day 8h Nov, Active RESULTS No Results PROCEDURES No Known procedures INSTRUCTIONS MEDICATIONS ADMINISTERED No Known Medications MEDICAL (GENERAL) HISTORY Type Description Date Medical History asthma Medical History type II diabetes Medical History sleep apnea Medical History narcolepsy Surgical History hysterectomy, partial Hospitalization History Chest pain-[facility] 02/27/17
--- OUTSIDE RECORDS SUMMARY | 2018-03-08 22:52 | XMS REPORT ---
Author Author TAWANA QUINTEN [facility] Address [address] [place] [address] Care Team Providers Care Pile Driver Engineer Name Role Phone TAWANARUBINA ZHUHANY Unavailable PROBLEMS Type Condition ICD9-CM Code JFX06-VR Code Onset Dates Condition Status SNOMED Code Problem Right carpal tunnel syndrome G56.01 Active 78669505 Problem Gastroesophageal reflux disease with esophagitis K21.0 Active 770519975 Problem Falls frequently R29.6 Active 914427934 Problem Porokeratosis Q82.8 Active 569864388 Problem Posterior subcapsular age-related cataract of both eyes H25.043 Active 2592852 Problem Non-alcoholic fatty liver disease K76.0 Active 403783208 Problem Delayed gastric emptying K30 Active 889933438 Problem Pain in left foot M79.672 Active 1353364 Problem Other chronic pain G89.29 Active 38984792 Problem Tarsal tunnel syndrome of left side G57.52 Active 03701517 Problem Obesity E66.9 Active 450205852 Problem Hypermetropia, bilateral H52.03 Active 31281625 Problem Type 2 diabetes mellitus with hyperglycemia E11.65 Active 16259555 Problem Nuclear cataract of both eyes H25.13 Active 10061439 Problem Presbyopia OU H52.4 Active 60442768 Problem Obstructive sleep apnea G47.33 Active 93878046 Problem Shortness of breath R06.02 Active 084653080 Problem Type 2 diabetes mellitus with diabetic polyneuropathy E11.42 Active 44201280 Problem Lung nodule R91.1 Active 776248295 Problem Mixed hyperlipidemia E78.2 Active 325886454 Problem Primary narcolepsy with cataplexy G47.411 Active 844954546 ALLERGIES No Information ENCOUNTERS Encounter Location Date Diagnosis [facility] [address] [facility] [id number] [address] Dec, Well woman exam Z01.419 ; Screening for breast cancer Z12.31 and Screening for colon cancer Z12.11 [facility] [id number] [place] [address] 55104- 7964 Dec, [facility] [id number] [place] [address] 21691- 1382 Dec, Type 2 diabetes mellitus with hyperglycemia E11.65 ; Mixed hyperlipidemia E78.2 and Gastroesophageal reflux disease with esophagitis K21.0 [facility] [id number] [place] [address] 20295- 4057 Nov, Type 2 diabetes mellitus with hyperglycemia E11.65 and Mixed hyperlipidemia E78.2 [place] [id number] [place] [address] 74891- 7277 Nov, [facility] [id number] [place] [address] 42192- 4339 Oct, [facility] [id number] [place] [address] 98165- 7932 Oct, [facility] [id number] [place] [address] 55978- 1804 September, [facility] [id number] [place] [address] 72273- 0215 September, Type 2 diabetes mellitus with hyperglycemia E11.65 [facility] [id number] [place] [address] 19650- 3240 September, Type 2 diabetes mellitus with hyperglycemia E11.65 [facility] [id number] [place] [address] 28996- 4325 September, Porokeratosis Q82.8 and Type 2 diabetes mellitus with diabetic polyneuropathy E11.42 [facility] [id number] [place] [address] 16248 -9441 Aug, Seasonal allergic rhinitis, unspecified trigger J30.2 [facility] [id number] [place] [address] 60275- 7250 Aug, [facility] [address] [place] [address] 2328 Aug, Bilateral low back pain without sciatica M54.5 [facility] [address] [id number] 05 Aug, 2017 Dental examination V72.2 and Dental examination Z01.20 [facility] [address] 11800- 6284 Aug, Dental examination Z01.20 and Dental caries K02.9 [place] [address] 10985- 0145 Aug, Obstructive sleep apnea G47.33 ; Obesity E66.9 ; Type 2 diabetes mellitus with hyperglycemia E11.65 ; Palpitations R00.2 and Corns and callosities L84 [place] [address] 38592- 4178 Jul, [place] [address] 01699- 5056 Jul, [place] [address] 81635- 4988 Jun, Type 2 diabetes mellitus with hyperglycemia E11.65 ; Colon cancer screening Z12.11 ; Mixed hyperlipidemia E78.2 ; Non-alcoholic fatty liver disease K76.0 ; Gastroesophageal reflux disease with esophagitis K21.0 and Pain of upper abdomen R10.10 [facility] [address] 67199- 8306 Jun, Falls frequently R29.6 [facility] [address] 64873 -0575 May, Infection of nose J34.89 [place] [address] 12990- 2842 May, Bilateral low back pain without sciatica M54.5 [facility] [address] 07510- 5835 May, Type 2 diabetes mellitus with diabetic polyneuropathy E11.42 ; Obstructive sleep apnea G47.33 and Type 2 diabetes mellitus with hyperglycemia E11.65 [place] [id number] [place] [address] 05730- 1880 Apr, Bilateral low back pain without sciatica M54.5 [place] [id number] [place] [address] 49714- 2048 Apr, Mixed hyperlipidemia E78.2 and Type 2 diabetes mellitus with hyperglycemia E11.65 [place] [id number] [place] [address] 35287- 4098 Apr, Type 2 diabetes mellitus with diabetic polyneuropathy E11.42 [place] [address] 57959- 8231 Apr, [place] [address] 61218- 7929 Apr, Skin lesion of left arm L98.9 and Skin lesion of left leg L98.9 [place] [id number] [place] [address] 13295- 2260 Mar, Bilateral low back pain without sciatica M54.5 [place] [address] 84215- 1142 Mar, Plantar fasciitis of left foot M72.2 ; Bursitis of left foot M71.572 and Type 2 diabetes mellitus with diabetic polyneuropathy E11.42 [place] [id number] [place] [address] 79602- 9890 Feb, Non-alcoholic fatty liver disease K76.0 ; Keratoacanthoma L85.8 ; Seborrheic keratosis L82.1 ; Type 2 diabetes mellitus with hyperglycemia E11.65 and Nuclear cataract of both eyes H25.13 [facility] [address] [id number] Feb, [place] [id number] [place] [address] 38798- 7736 Feb, [place] [address] 64528- 5556 Feb, [facility] [address] 34833- 3429 Feb, Type 2 diabetes mellitus with hyperglycemia E11.65 ; Back muscle spasm M62.830 and Encounter for immunization Z23 [place] [address] 06110- 4919 Jan, Plantar fasciitis of left foot M72.2 [place] [address] 23120- 3897 Dec, [place] [address] 24812- 8657 Dec, Plantar fasciitis of left foot M72.2 and Tarsal tunnel syndrome of left side G57.52 [place] [address] 94166- 9466 Dec, [facility] [address] 46541 -0343 Nov, Mary Jane rash of groin B37.89 and Rash and nonspecific skin eruption R21 [place] [address] 62860- 2400 Nov, [place] [id number] [place] [address] 99447- 9428 Oct, Type 2 diabetes mellitus with hyperglycemia E11.65 and Mixed hyperlipidemia E78.2 [place] [address] 59560- 5664 Oct, [place] [address] 43818- 1164 Oct, Chest pain, unspecified R07.9 ; Palpitations R00.2 ; Syncope R55 and Mixed hyperlipidemia E78.2 [place] [address] 38441- 3082 Oct, Plantar fasciitis, bilateral M72.2 and Type 1 diabetes mellitus with diabetic neuropathy E10.40 [facility] [id number] [place] [address] 66854- 5229 Oct, [facility] [id number] [place] [address] 54438- 0851 September, Type 2 diabetes mellitus with hyperglycemia E11.65 [facility] [id number] [place] [address] 89279- 8089 September, Type 2 diabetes mellitus with hyperglycemia E11.65 ; Type 2 diabetes mellitus with diabetic polyneuropathy E11.42 ; Gastroesophageal reflux disease with esophagitis K21.0 and Headache, unspecified headache type R51 [facility] [id number] [place] [address] 26296- 9396 September, [facility] [id number] [place] [address] 82599- 7902 September, [facility] [id number] [place] [address] 85366- 5932 September, [facility] [id number] [place] [address] 43687- 6450 September, Other chest pain R07.89 ; Heart palpitations R00.2 ; Mixed hyperlipidemia E78.2 and Obesity E66.9 [facility] [id number] [place] [address] 30694- 5427 Aug, [facility] [id number] [place] [address] 14643- 0276 Aug, Type 2 diabetes mellitus with diabetic polyneuropathy E11.42 and Type 2 diabetes mellitus with hyperglycemia E11.65 [facility] [id number] [place] [address] 25423- 7078 Aug, [facility] [id number] [place] [address] 87194- 2170 Aug, [facility] [id number] [place] [address] 67759- 3341 Aug, [facility] [address] [address]- 1056 Aug, Type 2 diabetes mellitus with hyperglycemia E11.65 [facility] [id number] [place] [address] 46238- 9288 Aug, [facility] [id number] [place] [address] 77154- 7767 Jul, Type 2 diabetes mellitus with diabetic polyneuropathy E11.42 [facility] [id number] [place] [address] 59056- 0253 Jul, Type 2 diabetes mellitus with hyperglycemia E11.65 [facility] [id number] [place] [address] 07421- 9166 Jul, [facility] [id number] [place] [address] 10237- 6284 Jul, [facility] [id number] [place] [address] 42184- 7693 Jul, [facility] [id number] [place] [address] 03565- 9020 Jul, Type 2 diabetes mellitus with diabetic polyneuropathy E11.42 and Type 2 diabetes mellitus with hyperglycemia E11.65 [facility] [address] [place] [address] 08055- 0655 Jun, Obstructive sleep apnea G47.33 [place] [id number] [place] [address] 37497- 4630 Jun, Type 2 diabetes mellitus with diabetic polyneuropathy E11.42 ; Primary narcolepsy with cataplexy G47.411 ; Abdominal bloating R14.0 ; Other chest pain R07.89 and Vision problems H54.7 [facility] [address] [place] [address] 76008- 2764 Jun, [facility] [id number] [place] [address] 96682- 9098 May, [place] [id number] [place] [address] 40763- 6058 Apr, [place] [address] 80265- 7345 Apr, Plantar fasciitis of left foot M72.2 [place] [address] 64252- 9765 Mar, [place] [address] 99719- 9554 Mar, Plantar fasciitis of left foot M72.2 and Type 2 diabetes mellitus with diabetic polyneuropathy E11.42 [place] [address] 80960- 9497 Feb, Type 2 diabetes mellitus with hyperglycemia E11.65 ; Mixed hyperlipidemia E78.2 and Encounter for immunization Z23 [place] [address] 50506- 6589 Feb, [place] [address] 57029- 1011 Feb, [place] [address] 97853- 5326 Feb, Type 2 diabetes mellitus with hyperglycemia E11.65 [place] [id number] [place] [address] 28616- 2908 Feb, Type 2 diabetes mellitus with hyperglycemia E11.65 [place] [id number] [place] [address] 16538- 2429 Jan, [place] [id number] [place] [address] 97222- 7268 Dec, Pain in left foot M79.672 ; Other chronic pain G89.29 ; Type 2 diabetes mellitus with hyperglycemia E11.65 ; Obstructive sleep apnea G47.33 ; Falls frequently R29.6 ; Mixed hyperlipidemia E78.2 and Gastroesophageal reflux disease with esophagitis K21.0 [place] [address] 87988- 1354 Nov, [facility] [address], [place] [address]- 8989 Oct, Type 2 diabetes mellitus with diabetic polyneuropathy E11.42 [facility] [address] [facility] [id number] [place] [address]- 5107 Oct, [facility] [address], [place] [address]- 6633 Oct, [facility] [address] [facility] [id number] [place] [address]- 8554 September, [facility] [address] [place] [address]- 2289 September, [facility] [address], [place] [address]- 7183 September, [facility] [address], [place] [address]- 5467 September, [facility] [address] [address]- 4358 September, [facility] [address], [place] [address]- 3898 Aug, Type 2 diabetes mellitus with hyperglycemia E11.65 ; Mixed hyperlipidemia E78.2 and Right carpal tunnel syndrome G56.01 [facility] [address], [place] [address]- 4055 Aug, [facility] [address], [place] [address]- 6348 Jul, [facility] [address], [place] [address]- 4109 Jun, [facility] [address] 1957 Jun, [facility] [id number], [place] [address]- 9925 May, [facility] [address] [place] [address] 24431- 8890 May, [facility] [id number] [place] [address] 88564- 2541 May, Type 2 diabetes mellitus with hyperglycemia E11.65 and Falls E888.9 [facility] [id number] [place] [address] 65402- 3055 Apr, Type 2 diabetes mellitus with hyperglycemia E11.65 [facility] [id number] [place] [address] 56227- 0855 Apr, [facility] [address] 43205- 1088 Apr, Type 2 diabetes mellitus with hyperglycemia E11.65 [facility] [id number] [place] [address] 57651- 0496 Apr, [facility] [id number] [place] [address] 24134- 6826 Mar, Type 2 diabetes mellitus with diabetic polyneuropathy E11.42 ; Bilateral low back pain without sciatica M54.5 and Dry nose J34.89 [place] [id number] [place] [address] 61182- 2658 Mar, Palpitations R00.2 ; Syncope R55 ; DM (diabetes mellitus) E11.9 and Obesity E66.9 [facility] [id number] [place] [address] 88214- 8471 Mar, [facility] [id number] [place] [address] 41103- 6854 Mar, [facility] [id number] [place] [address] 50963- 1082 Mar, [facility] [id number] [place] [address] 35460- 8817 Feb, [facility] [id number] [place] [address] 86001- 3364 Jan, [facility] [address], [place] [address]- 1669 Jan, [facility] [id number] [place] [address] 75295- 7945 Jan, Falls E888.9 and Sinusitis 473.9 [facility] [id number] [place] [address] 64323- 4491 Dec, [facility] [id number] [place] [address] 39314- 1784 Dec, [facility] [id number] [place] [address] 77108- 0988 Dec, [facility] [id number] [place] [address] 61995- 6441 Dec, [facility] [id number] [place] [address] 75539- 2947 Dec, Diabetes mellitus without mention of complication, type II or unspecified type, not stated as uncontrolled 250.00 and Shortness of breath 786.05 [facility] [id number] [place] [address] 00544- 2993 Dec, [facility] [id number] [place] [address] 14651- 1450 Nov, [facility] [address] [place] [address] 77517- 7655 Nov, [facility] [id number] [place] [address] 59488- 0727 Oct, Restrictive lung disease 518.89 [facility] [id number] [place] [address] 26879- 7305 Oct, [facility] [id number] [place] [address] 56772- 0192 Oct, Shortness of breath 786.05 [facility] [id number] [place] [address] 02959- 8079 September, Other nonspecific abnormal finding of lung field 793.19 ; Diabetes mellitus without mention of complication, type II or unspecified type, not stated as uncontrolled 250.00 ; Hyperlipidemia LDL goal < 100 272.4 ; Narcolepsy, with cataplexy 347.01 ; Shortness of breath 786.05 and Chest pain 786.50 [facility] [id number] [place] [address] 98486- 4281 Aug, [facility] [id number] [place] [address] 66043- 3796 Aug, [facility] [id number] [place] [address] 93205- 2139 Jun, [facility] [id number] [place] [address] 22345- 9989 Jun, [facility] [id number] [place] [address] 515501- 2961 Jun, [facility] [id number] [place] [address] 46920- 9969 Jun, [facility] [id number] [place] [address] 454921- 9513 Jun, [facility] [id number] [place] [address] 587782- 1000 Jun, [facility] [id number] [place] [address] 571782- 6020 Jun, [facility] [id number] [place] [address] 138472- 3599 Jun, [facility] [id number] [place] [address] 56310- 7963 May, [facility] [id number] [place] [address] 96317- 0476 May, [facility] [id number] [place] [address] 39946- 5295 Apr, [facility] [place] [facility] [address] [id number] [place] [address]- 5208 Apr, [facility] [place] [facility] [address] [id number] [place] [address]- 8686 Mar, [facility] [place] [facility] [address] [id number] [place] [address]- 1035 Mar, [facility] [place] [facility] [address] [id number] [place] [address]- 9379 Mar, [facility] [place] [facility] [address] [id number] [place] [address]- 1319 Mar, [facility] [place] [facility] [address] [id number] [place] [address]- 5486 Nov, [facility] [place] [facility] [address] [id number] [place] [address]- 3266 Nov, [facility] [place] [facility] [address] [id number] [place] [address]- 1284 Nov, [facility] [place] [facility] [address] [id number] [place] [address]- 1795 Nov, [facility] [place] [facility] [address] [id number] [place] [address]- 4131 Oct, [facility] [place] [facility] [address] [id number] [place] [address]- 3553 Oct, [facility] [place] [facility] [address] [id number] [place] [address]- 7684 Oct, [facility] [place] [facility] [address] [id number] [place] [address]- 0165 Oct, [facility] [place] [facility] [address] [id number] [place] [address]- 0135 Oct, [facility] [place] [facility] [address] [id number] [place] [address]- 4984 Oct, [facility] [place] [facility] [address] [id number] [place] [address]- 1490 Oct, [facility] [place] [facility] [address] [id number] [place] [address]- 8765 Oct, [facility] [place] [facility] [address] [id number] [place] [address]- 5537 Oct, [facility] [place] [facility] [address] [id number] [place] [address]- [address] Oct, [facility] [place] [facility] [address] [id number] [place] [address] September, [facility] [place] [facility] [address] [id number] [place] [address] September, [facility] [place] [facility] [address] [id number] [place] [address] Aug, [facility] [place] [facility] [address] [id number] [place] [address] Aug, [facility] [place] [facility] [address] [id number] [place] [address] Aug, [facility] [place] [facility] [address] [id number] [place] [address] Aug, [facility] [place] [facility] [address] [id number] [place] [address] Aug, [facility] [place] [facility] [address] [id number] [place] [address] Aug, [facility] [place] [facility] [address] [id number] [place] [address] Jul, [facility] [place] [facility] [address] [id number] [place] [address] Jul, [facility] [place] [facility] [address] [id number] [place] [address] Jul, [facility] [place] [facility] [address] [id number] [place] [address] Jul, [facility] [place] [facility] [address] [id number] [place] [address] Jul, [facility] [address] [id number] [place] [address] Jul, [facility] [place] [facility] [address] [id number] [place] [address] Jul, [facility] [place] [facility] [address] [id number] [place] [address] Jul, [facility] [place] [facility] [address] [id number] [place] [address] Jul, [facility] [place] [facility] [address] [id number] [place] [address] Jul, [facility] [place] [facility] [address] [id number] [place] [address] Jul, [facility] [place] [facility] [address] [id number] [place] [address] Jul, [facility] [place] [facility] [address] [id number] [place] [address] Jul, [facility] [place] [facility] [address] [id number] [place] [address] Jul, [facility] [place] [facility] [address] [id number] [place] [address] Jul, [facility] [place] [facility] [address] [id number] [place] [address] Jul, [facility] [place] [facility] [address] [id number] [place] [address] Jun, [facility] [place] [facility] [address] [id number] [place] [address] Jun, [facility] [place] [facility] [address] [id number] [place] [address] Jun, [facility] [place] [facility] [address] [id number] [place] [address] 24 Jun, 2013 [facility] [place] [facility] [address] [facility] [id number] [place] [address] 24 Jun, 2013 [facility] [place] [facility] [address] [facility] [id number] [place] [address] 24 Jun, 2013 [facility] [place] [facility] [address] [facility] [id number] [place] [address] Jun, [facility] [place] [facility] [address] [facility] [id number] [place] [address] Jun, [facility] [place] [facility] [address] [facility] [id number] [place] [address] Jun, [facility] [place] [facility] [address] [facility] [id number] [place] [address] 20 Jun, 2013 [facility] [place] [facility] [address] [id number] [place] [address] 18 Jun, 2013 [facility] [place] [facility] [address] [facility] [id number] [place] [address] 18 Jun, 2013 [facility] [place] [facility] [address] [facility] [id number] [place] [address] 14 Jun, 2013 [facility] [place] [facility] [address] [facility] [id number] [place] [address]- [address] 13 Jun, 2013 [facility] [place] [facility] [address] [facility] [id number] [place] [address]- [address] 13 Jun, 2013 [facility] [place] [facility] [address] [facility] [id number] [place] [address]- [address] 13 Jun, 2013 [facility] [place] [facility] [address] [facility] [id number] [place] [address]- [address] 13 Jun, 2013 [facility] [place] [facility] [address] [facility] [id number] [place] [address]- [address] 12 Jun, 2013 [facility] [place] [facility] [address] [facility] [id number] [place] [address]- [address] 12 Jun, 2013 [facility] [place] [facility] [address] [id number] [place] [address]- [address] Jun, 2013 [facility] [place] [facility] [address] [id number] [place] [address] Jun, 2013 [facility] [place] [facility] [address] [facility] [id number] [place] [address] Jun, 2013 [facility] [place] [facility] [address] [id number] [place] [address]- [address] Jun, 2013 [facility] [place] [facility] [address] [id number] [place] [address]- 2081 Jun, [facility] [place] [facility] [address] [id number] [place] [address]- [address] Jun, 2013 [facility] [place] [facility] [address] [facility] [id number] [place] [address]- 1998 Jun, 2013 [facility] [place] [facility] [address] [id number] [place] [address]- [address]35 Jun, 2013 [facility] [place] [facility] [address] [id number] [place] [address]- [address] Jun, 2013 [facility] [place] [facility] [address] [facility] [id number] [place] [address]- [address] Jun, [facility] [place] [facility] [address] [facility] [id number] [place] [address]- [address]294 Jun, [facility] [place] [facility] [address] [id number] [place] [address]- 9[address] May, [facility] [place] [facility] [address] [id number] [place] [address]- 80[address] May, [facility] [place] [facility] [address] [id number] [place] [address]- 7973 May, [facility] [place] [facility] [address] [facility] [id number] [place] [address]- [address] May, [facility] [place] [facility] [address] [id number] [place] [address]- [address] 16 May, 2013 [facility] [place] [facility] [address] [id number] [place] [address]- [address] May, [facility] [place] [facility] [address] [id number] [place] [address]- 9[address] May, [facility] [place] [facility] [address] [id number] [place] [address]- [address] May, [facility] [place] [facility] [address] [id number] [place] [address]- 6039 May, [facility] [place] [facility] [address] [id number] [place] [address]- 1460 May, [facility] [place] [facility] [address] [id number] [place] [address]- [address] May, [facility] [place] [facility] [address] [id number] [place] [address]- 5394 May, [facility] [place] [facility] [address] [id number] [place] [address]- 8319 May, [facility] [place] [facility] [address] [id number] [place] [address]- [address] May, [facility] [place] [facility] [address] [id number] [place] [address] 7948 May, [facility] [place] [facility] [address] [id number] [place] [address]- 30[address] Apr, [facility] [place] [facility] [address] [id number] [place] [address]- 6[address] Apr, [facility] [place] [facility] [address] [id number] [place] [address]- 6[address] Dec, [facility] [place] [facility] [address] [id number] [place] [address]- [address] Nov, [facility] [place] [facility] [address] [id number] [place] [address]- 9941 May, [facility] [address] [facility] [id number], [place] [address] Apr, [facility] [address] [facility] [id number], [place] [address]686 Apr, [facility] [address] [facility] [id number], [place] [address] Apr, [facility] [address] [facility] [id number], [place] [address] Apr, IMMUNIZATIONS No Known Immunizations SOCIAL HISTORY Never Assessed REASON FOR VISIT Test Strips PLAN OF CARE VITAL SIGNS MEDICATIONS Medication Instructions Dosage Frequency Start Date End Date Duration Status Test strips Contour next test strips 2 times a day as directed 12h 08 Oct, 2017 Active RESULTS No Results PROCEDURES No Known procedures INSTRUCTIONS MEDICATIONS ADMINISTERED No Known Medications MEDICAL (GENERAL) HISTORY Type Description Date Medical History asthma Medical History type II diabetes Medical History sleep apnea Medical History narcolepsy Surgical History hysterectomy, partial Hospitalization History Chest pain-[facility] [place] [facility] 02/27/17
--- OUTSIDE RECORDS SUMMARY | 2018-03-08 22:53 | XMS REPORT ---
Author Author KATHY BORDEN Organization [facility] Address [address] [place] [address] Care Team Providers Care Lending Advisor Name Role Phone KATHY BORDEN Unavailable PROBLEMS Type Condition ICD9-CM Code OLO33-NL Code Onset Dates Condition Status SNOMED Code Problem Right carpal tunnel syndrome G56.01 Active 58871089 Problem Gastroesophageal reflux disease with esophagitis K21.0 Active 884775054 Problem Falls frequently R29.6 Active 105201870 Problem Porokeratosis Q82.8 Active 572614000 Problem Posterior subcapsular age-related cataract of both eyes H25.043 Active 1075692 Problem Non-alcoholic fatty liver disease K76.0 Active 300548784 Problem Delayed gastric emptying K30 Active 296407763 Problem Pain in left foot M79.672 Active 0073136 Problem Other chronic pain G89.29 Active 78832305 Problem Tarsal tunnel syndrome of left side G57.52 Active 12834895 Problem Obesity E66.9 Active 516055431 Problem Hypermetropia, bilateral H52.03 Active 11889312 Problem Type 2 diabetes mellitus with hyperglycemia E11.65 Active 80447683 Problem Nuclear cataract of both eyes H25.13 Active 35726655 Problem Presbyopia OU H52.4 Active 08738468 Problem Obstructive sleep apnea G47.33 Active 96330103 Problem Shortness of breath R06.02 Active 643634358 Problem Type 2 diabetes mellitus with diabetic polyneuropathy E11.42 Active 51140938 Problem Lung nodule R91.1 Active 253834939 Problem Mixed hyperlipidemia E78.2 Active 400656989 Problem Primary narcolepsy with cataplexy G47.411 Active 784722668 ALLERGIES Substance Reaction Event Type Date Status Penicillin G Sodium Unknown Drug Allergy September, Active Erythromycin Unknown Drug Allergy September, Active ENCOUNTERS Encounter Location Date Diagnosis [facility] [address] [facility] [id number] [address] Dec, Well woman exam Z01.419 ; Screening for breast cancer Z12.31 and Screening for colon cancer Z12.11 [facility] [id number] [place] [address] 87463- 8800 Dec, [facility] [id number] [place] [address] 31913- 7344 Dec, Type 2 diabetes mellitus with hyperglycemia E11.65 ; Mixed hyperlipidemia E78.2 and Gastroesophageal reflux disease with esophagitis K21.0 [facility] [id number] [place] [address] 08159- 6100 Nov, Type 2 diabetes mellitus with hyperglycemia E11.65 and Mixed hyperlipidemia E78.2 [facility] [id number] [place] [address] 73753- 8547 Nov, [facility] [id number] [place] [address] 56503- 5147 Oct, [facility] [id number] [place] [address] 50753- 1127 Oct, [facility] [id number] [place] [address] 69137- 1814 September, [facility] [id number] [place] [address] 70300- 2039 September, Type 2 diabetes mellitus with hyperglycemia E11.65 [facility] [id number] [place] [address] 67080- 5247 September, Type 2 diabetes mellitus with hyperglycemia E11.65 [facility] [id number] [place] [address] 58449- 1945 September, Porokeratosis Q82.8 and Type 2 diabetes mellitus with diabetic polyneuropathy E11.42 [facility] [address] [address] Aug, Seasonal allergic rhinitis, unspecified trigger J30.2 [facility] [id number] [place] [address] 86328- 7985 Aug, [facility] [id number] [place] [address] 49637- 1602 Aug, Bilateral low back pain without sciatica M54.5 [facility] [id number] [place] [address] [id number] Aug, Dental examination V72.2 and Dental examination Z01.20 [facility] [address] 32395- 3935 Aug, Dental examination Z01.20 and Dental caries K02.9 [facility] [address] 20096- 8795 Aug, Obstructive sleep apnea G47.33 ; Obesity E66.9 ; Type 2 diabetes mellitus with hyperglycemia E11.65 ; Palpitations R00.2 and Corns and callosities L84 [facility] [address] 26619- 4563 Jul, [facility] [id number] [place] [address] 62497- 9716 Jul, [facility] [address] 71581- 5478 Jun, Type 2 diabetes mellitus with hyperglycemia E11.65 ; Colon cancer screening Z12.11 ; Mixed hyperlipidemia E78.2 ; Non-alcoholic fatty liver disease K76.0 ; Gastroesophageal reflux disease with esophagitis K21.0 and Pain of upper abdomen R10.10 [facility] [id number] [place] [address] 83569- 8828 09 Jun, 2017 Falls frequently R29.6 [facility] [address] 94947 -7949 May, Infection of nose J34.89 [facility] [id number] [place] [address] 72489- 4895 May, Bilateral low back pain without sciatica M54.5 [facility] [address] 34421- 5869 May, Type 2 diabetes mellitus with diabetic polyneuropathy E11.42 ; Obstructive sleep apnea G47.33 and Type 2 diabetes mellitus with hyperglycemia E11.65 [facility] [id number] [place] [address] 13081- 5586 Apr, Bilateral low back pain without sciatica M54.5 [facility] [id number] [place] [address] 02998- 7964 Apr, Mixed hyperlipidemia E78.2 and Type 2 diabetes mellitus with hyperglycemia E11.65 [facility] [id number] [place] [address] 45337- 6297 Apr, Type 2 diabetes mellitus with diabetic polyneuropathy E11.42 [facility] [id number] [place] [address] 27979- 2899 Apr, [facility] [address] 96348- 2702 Apr, Skin lesion of left arm L98.9 and Skin lesion of left leg L98.9 [facility] [id number] [place] [address] 10979- 1672 Mar, Bilateral low back pain without sciatica M54.5 [facility] [id number] [place] [address] 88656- 3693 Mar, Plantar fasciitis of left foot M72.2 ; Bursitis of left foot M71.572 and Type 2 diabetes mellitus with diabetic polyneuropathy E11.42 [facility] [id number] [place] [address] 81249- 1645 Feb, Non-alcoholic fatty liver disease K76.0 ; Keratoacanthoma L85.8 ; Seborrheic keratosis L82.1 ; Type 2 diabetes mellitus with hyperglycemia E11.65 and Nuclear cataract of both eyes H25.13 [facility] [id number] [place] [address] [id number] Feb, [facility] [place] [address] [place] [address] 91315- 1624 Feb, [facility] [address] 73008- 4669 Feb, [facility] [address] 76292- 2985 Feb, Type 2 diabetes mellitus with hyperglycemia E11.65 ; Back muscle spasm M62.830 and Encounter for immunization Z23 [facility] [address] 75302- 9168 Jan, Plantar fasciitis of left foot M72.2 [facility] [address] 21547- 8765 Dec, [facility] [address] 55773- 2805 Dec, Plantar fasciitis of left foot M72.2 and Tarsal tunnel syndrome of left side G57.52 [facility] [address] 90693- 9272 Dec, [facility] [address] 06445 -2113 Nov, Mary Jane rash of groin B37.89 and Rash and nonspecific skin eruption R21 [facility] [address] 41542- 3276 Nov, [facility] [address] 14961- 2035 Oct, Type 2 diabetes mellitus with hyperglycemia E11.65 and Mixed hyperlipidemia E78.2 [facility] [place] [address] 16853- 2853 Oct, [facility] [address] 56265- 9890 Oct, Chest pain, unspecified R07.9 ; Palpitations R00.2 ; Syncope R55 and Mixed hyperlipidemia E78.2 [facility] [address] [place] [address]- 1852 Oct, Plantar fasciitis, bilateral M72.2 and Type 1 diabetes mellitus with diabetic neuropathy E10.40 [facility] [id number] [place] [address] 72164- 1746 Oct, [facility] [id number] [place] [address] 70553- 2305 September, Type 2 diabetes mellitus with hyperglycemia E11.65 [facility] [id number] [place] [address] 87482- 5441 September, Type 2 diabetes mellitus with hyperglycemia E11.65 ; Type 2 diabetes mellitus with diabetic polyneuropathy E11.42 ; Gastroesophageal reflux disease with esophagitis K21.0 and Headache, unspecified headache type R51 [facility] [id number] [place] [address] 57632- 7318 September, [facility] [id number] [place] [address] 55401- 3508 September, [facility] [id number] [place] [address] 75737- 3441 September, [facility] [id number] [place] [address] 88547- 6445 September, Other chest pain R07.89 ; Heart palpitations R00.2 ; Mixed hyperlipidemia E78.2 and Obesity E66.9 [facility] [id number] [place] [address] 11880- 0270 Aug, [facility] [id number] [place] [address] 84066- 0234 Aug, Type 2 diabetes mellitus with diabetic polyneuropathy E11.42 and Type 2 diabetes mellitus with hyperglycemia E11.65 [facility] [id number] [place] [address] 56393- 7872 Aug, [facility] [address], [place] [address]- 8634 Aug, [facility] [address] [id number] [address]- 4728 Aug, [facility] [id number] [place] [address] 18242- 8477 Aug, Type 2 diabetes mellitus with hyperglycemia E11.65 [facility] [address], [place] [address]- 1061 Aug, [facility] [id number] [place] [address] 30377- 0538 Jul, Type 2 diabetes mellitus with diabetic polyneuropathy E11.42 [facility] [id number] [place] [address] 14847- 6825 Jul, Type 2 diabetes mellitus with hyperglycemia E11.65 [facility] [id number] [place] [address] 28520- 9660 Jul, [facility] [id number] [place] [address] 47082- 7133 Jul, [facility] [address] [address]- 5546 Jul, [facility] [id number] [place] [address] 23977- 2677 Jul, Type 2 diabetes mellitus with diabetic polyneuropathy E11.42 and Type 2 diabetes mellitus with hyperglycemia E11.65 [facility] [address], [place] [address]- 9285 Jun, Obstructive sleep apnea G47.33 [facility] [address], [place] [address]- 9605 Jun, Type 2 diabetes mellitus with diabetic polyneuropathy E11.42 ; Primary narcolepsy with cataplexy G47.411 ; Abdominal bloating R14.0 ; Other chest pain R07.89 and Vision problems H54.7 [facility] [address], [place] [address]- 5796 Jun, [facility] [id number] [place] [address] 30698- 0335 May, [facility] [id number] [place] [address] 90642- 7386 Apr, [facility] [id number] [place] [address] 26699- 4751 Apr, Plantar fasciitis of left foot M72.2 [facility] [address] 78194- 1581 Mar, [facility] [id number] [place] [address] 08867- 8341 Mar, Plantar fasciitis of left foot M72.2 and Type 2 diabetes mellitus with diabetic polyneuropathy E11.42 [facility] [id number] [place] [address] 96509- 4257 Feb, Type 2 diabetes mellitus with hyperglycemia E11.65 ; Mixed hyperlipidemia E78.2 and Encounter for immunization Z23 [facility] [id number] [place] [address] 43320- 8394 Feb, [facility] [id number] [place] [address] 99841- 5429 Feb, [facility] [id number] [place] [address] 19696- 5370 Feb, Type 2 diabetes mellitus with hyperglycemia E11.65 [facility] [id number] [place] [address] 44001- 5859 Feb, Type 2 diabetes mellitus with hyperglycemia E11.65 [facility] [id number] [place] [address] 00616- 9473 Jan, [facility] [id number] [place] [address] 12911- 8390 Dec, Pain in left foot M79.672 ; Other chronic pain G89.29 ; Type 2 diabetes mellitus with hyperglycemia E11.65 ; Obstructive sleep apnea G47.33 ; Falls frequently R29.6 ; Mixed hyperlipidemia E78.2 and Gastroesophageal reflux disease with esophagitis K21.0 [facility] [address], [place] [address]- 2032 Nov, [facility] [id number] [address]- 1856 Oct, Type 2 diabetes mellitus with diabetic polyneuropathy E11.42 [facility] [address], [place] [address]- 4842 Oct, [facility] [address], [place] [address]- 6514 Oct, [facility] [id number] [place] [address] 46231- 5133 September, [facility] [id number] [address]- 4242 September, [facility] [id number] [place] [address] 05314- 2518 September, [facility] [address], [place] [address]- 2076 September, [facility] [address], [place] [address]- 9769 September, [facility] [address], [place] [address]- 2935 Aug, Type 2 diabetes mellitus with hyperglycemia E11.65 ; Mixed hyperlipidemia E78.2 and Right carpal tunnel syndrome G56.01 [facility] [address], [place] [address]- 4902 Aug, [facility] [address], [place] [address]- 3836 Jul, [facility] [address], [place] [address]- 0148 Jun, [facility] [address], [place] [address]- 3074 Jun, [facility] [address], [place] [address]- 9214 May, [facility] [id number] [place] [address] 94242- 4707 May, [facility] [id number] [place] [address] 82230- 3308 May, Type 2 diabetes mellitus with hyperglycemia E11.65 and Falls E888.9 [facility] [id number] [place] [address] 69186- 0989 Apr, Type 2 diabetes mellitus with hyperglycemia E11.65 [facility] [id number] [place] [address] 40246- 4542 Apr, [facility] [id number] [place] [address] 64975- 0645 Apr, Type 2 diabetes mellitus with hyperglycemia E11.65 [facility] [id number] [place] [address] 87703- 8968 Apr, [facility] [id number] [place] [address] 93744- 7742 Mar, Type 2 diabetes mellitus with diabetic polyneuropathy E11.42 ; Bilateral low back pain without sciatica M54.5 and Dry nose J34.89 [facility] [id number] [place] [address] 79306- 4294 Mar, Palpitations R00.2 ; Syncope R55 ; DM (diabetes mellitus) E11.9 and Obesity E66.9 [facility] [address], [place] [address]- 6026 Mar, [facility] [id number] [place] [address] 47290- 1595 Mar, [facility] [id number] [place] [address] 46688- 7814 Mar, [facility] [id number] [place] [address] 18255- 6770 Feb, [facility] [address], [place] [address]- 3113 14 Jan, 2015 [facility] [id number] [place] [address] 36312- 2410 Jan, [facility] [id number] [place] [address] 18582- 9366 Jan, Falls E888.9 and Sinusitis 473.9 [facility] [id number] [place] [address] 72818- 7240 Dec, [facility] [id number] [place] [address] 11232- 1297 Dec, [facility] [id number] [place] [address] 46118- 4644 Dec, [facility] [id number] [place] [address] 92544- 1167 Dec, [facility] [id number] [place] [address] 79244- 7427 Dec, Diabetes mellitus without mention of complication, type II or unspecified type, not stated as uncontrolled 250.00 and Shortness of breath 786.05 [facility] [address], [place] [address]- 2469 Dec, [facility] [address], [place] [address]- 5854 Nov, [facility] [id number] [place] [address] 07957- 1898 Nov, [facility] [id number] [place] [address] 02095- 9351 Oct, Restrictive lung disease 518.89 [facility] [address], [place] [address]- 1315 Oct, [facility] [address], [place] [address]- 3035 Oct, Shortness of breath 786.05 [facility] [address], [place] [address]- 8636 September, Other nonspecific abnormal finding of lung field 793.19 ; Diabetes mellitus without mention of complication, type II or unspecified type, not stated as uncontrolled 250.00 ; Hyperlipidemia LDL goal < 100 272.4 ; Narcolepsy, with cataplexy 347.01 ; Shortness of breath 786.05 and Chest pain 786.50 [facility] [id number] [place] [address] 887635- 6758 Aug, [facility] [id number] [place] [address] 788510- 8252 Aug, [facility] [id number] [place] [address] 87079- 2267 Jun, [facility] [id number] [place] [address] 668189- 9755 Jun, [facility] [id number] [place] [address] 02133- 9486 Jun, [facility] [id number] [place] [address] 02943- 4172 Jun, [facility] [id number] [place] [address] 58489- 6487 Jun, [facility] [address], [place] [address]- 5455 Jun, [facility] [id number] [place] [address] 027174- 3877 Jun, [facility] [id number] [place] [address] 349344- 9630 Jun, [facility] [id number] [place] [address] 998874- 1160 May, [facility] [address] 6370 May, [facility] [id number] [address]- 2913 Apr, [facility] [place] [facility] [address] [id number] [place] [address]- 0032 Apr, [facility] [place] [facility] [address] [id number] [place] [address]- 6187 Mar, [facility] [place] [facility] [address] [id number] [place] [address]- 0533 Mar, [facility] [place] [facility] [address] [id number] [place] [address]- 6857 Mar, [facility] [place] [facility] [address] [id number] [place] [address]- 9758 Mar, [facility] [place] [facility] [address] [id number] [place] [address]- 5137 Nov, [facility] [place] [facility] [address] [id number] [place] [address]- 2121 Nov, [facility] [place] [facility] [address] [id number] [place] [address]- 0234 Nov, [facility] [place] [facility] [address] [id number] [place] [address]- 0862 Nov, [facility] [place] [facility] [address] [id number] [place] [address]- 0989 Oct, [facility] [place] [facility] [address] [id number] [place] [address]- 7745 Oct, [facility] [place] [facility] [address] [id number] [place] [address]- 7830 Oct, [facility] [place] [facility] [address] [id number] [place] [address]- 7163 Oct, [facility] [place] [facility] [address] [id number] [place] [address]- 5773 Oct, [facility] [place] [facility] [address] [id number] [place] [address]- 8179 Oct, [facility] [place] [facility] [address] [id number] [place] [address]- 9840 Oct, [facility] [place] [facility] [address] [id number] [place] [address]- 5296 Oct, [facility] [place] [facility] [address] [id number] [place] [address]- 0529 Oct, [facility] [place] [facility] [address] [id number] [place] [address] Oct, [facility] [place] [facility] [address] [id number] [place] [address] September, [facility] [place] [facility] [address] [id number] [place] [address] September, [facility] [place] [facility] [address] [id number] [place] [address] Aug, [facility] [place] [facility] [address] [id number] [place] [address] Aug, [facility] [place] [facility] [address] [id number] [place] [address] Aug, [facility] [place] [facility] [address] [id number] [place] [address] Aug, [facility] [place] [facility] [address] [id number] [place] [address] Aug, [facility] [place] [facility] [address] [id number] [place] [address] Aug, [facility] [place] [facility] [address] [id number] [place] [address] Jul, [facility] [place] [facility] [address] [id number] [place] [address] Jul, [facility] [place] [facility] [address] [id number] [place] [address] Jul, [facility] [place] [facility] [address] [id number] [place] [address] Jul, [facility] [place] [facility] [address] [id number] [place] [address] Jul, [facility] [place] [facility] [address] [id number] [place] [address] Jul, [facility] [place] [facility] [address] [id number] [place] [address] Jul, [facility] [place] [facility] [address] [id number] [place] [address] Jul, [facility] [place] [facility] [address] [id number] [place] [address] Jul, [facility] [place] [facility] [address] [id number] [place] [address] Jul, [facility] [place] [facility] [address] [id number] [place] [address] Jul, [facility] [place] [facility] [address] [id number] [place] [address] Jul, [facility] [place] [facility] [address] [id number] [place] [address] Jul, [facility] [place] [facility] [address] [id number] [place] [address] Jul, [facility] [place] [facility] [address] [id number] [place] [address] Jul, [facility] [place] [facility] [address] [id number] [place] [address] Jul, [facility] [place] [facility] [address] [id number] [place] [address] Jun, [facility] [place] [facility] [address] [id number] [place] [address] Jun, [facility] [place] [facility] [address] [id number] [place] [address] Jun, [facility] [place] [facility] [address] [id number] [place] [address] Jun, [facility] [place] [facility] [address] [id number] [place] [address] 24 Jun, 2013 [facility] [place] [facility] [address] [id number] [place] [address]- [address] 24 Jun, 2013 [facility] [place] [facility] [address] [id number] [place] [address]- [address] Jun, [facility] [place] [facility] [address] [id number] [place] [address] Jun, [facility] [place] [facility] [address] [id number] [place] [address] Jun, [facility] [place] [facility] [address] [id number] [place] [address] 20 Jun, 2013 [facility] [place] [facility] [address] [id number] [place] [address]- 6868 18 Jun, 2013 [facility] [place] [facility] [address] [id number] [place] [address]- [address] 18 Jun, 2013 [facility] [place] [facility] [address] [facility] [id number] [place] [address]- 39[address] 14 Jun, 2013 [facility] [place] [facility] [address] [id number] [place] [address]- [address] 13 Jun, 2013 [facility] [place] [facility] [address] [id number] [place] [address]- [address] 13 Jun, 2013 [facility] [place] [facility] [address] [id number] [place] [address]- [address] 13 Jun, 2013 [facility] [place] [facility] [address] [id number] [place] [address]- 7453 13 Jun, 2013 [facility] [place] [facility] [address] [facility] [id number] [place] [address] 12 Jun, 2013 [facility] [place] [facility] [address] [id number] [place] [address] 12 Jun, 2013 [facility] [place] [facility] [address] [id number] [place] [address] Jun, 2013 [facility] [place] [facility] [address] [id number] [place] [address]- [address] Jun, 2013 [facility] [place] [facility] [address] [id number] [place] [address]- [address] Jun, 2013 [facility] [place] [facility] [address] [id number] [place] [address]- [address] Jun, 2013 [facility] [place] [facility] [address] [id number] [place] [address] 84[address] Jun, 2013 [facility] [place] [facility] [address] [facility] [id number] [place] [address] Jun, 2013 [facility] [place] [facility] [address] [id number] [place] [address] 4046 Jun, 2013 [facility] [place] [facility] [address] [id number] [place] [address] Jun, 2013 [facility] [place] [facility] [address] [id number] [place] [address] 59[address] Jun, 2013 [facility] [place] [facility] [address] [id number] [place] [address] Jun, 2013 [facility] [place] [facility] [address] [id number] [place] [address]- 267[address] Jun, [facility] [place] [facility] [address] [id number] [place] [address] May, [facility] [place] [facility] [address] [id number] [place] [address] May, [facility] [place] [facility] [address] [id number] [place] [address] May, [facility] [place] [facility] [address] [id number] [place] [address] May, [facility] [address] [id number] [place] [address] May, [facility] [place] [facility] [address] [id number] [place] [address] May, [facility] [place] [facility] [address] [id number] [place] [address] May, [facility] [place] [facility] [address] [id number] [place] [address] May, [facility] [place] [facility] [address] [id number] [place] [address] 7971 May, [facility] [place] [facility] [address] [id number] [place] [address] May, [facility] [place] [facility] [address] [id number] [place] [address]- [address] May, [facility] [place] [facility] [address] [id number] [place] [address]- [address] May, [facility] [place] [facility] [address] [id number] [place] [address]- [address] May, [facility] [place] [facility] [address] [id number] [place] [address]- [address] May, [facility] [place] [facility] [address] [id number] [place] [address] 4880 May, [facility] [place] [facility] [address] [id number] [place] [address]- [address] Apr, [facility] [place] [facility] [address] [id number] [place] [address]- [address] Apr, [facility] [place] [facility] [address] [id number] [place] [address]- 67[address] Dec, [facility] [place] [facility] [address] [id number] [place] [address] 4[address] Nov, [facility] [place] [facility] [address] [facility] [id number], [place] [address] May, [facility] [address] [facility] [id number], [place] [address] Apr, [facility] [address] [facility] [id number], [place] [address] Apr, [facility] [address] [facility] [id number], [place] [address] Apr, [facility] [address] [facility] [id number], [place] [address] Apr, IMMUNIZATIONS No Known Immunizations SOCIAL HISTORY Never Assessed REASON FOR VISIT corn on foot(last seen 03/2017) Consult Dr. Borden;Stoney RT(R) PLAN OF CARE Activity Details Follow Up 2 Months Reason: VITAL SIGNS Height 64 in 2017-09-13 Blood pressure systolic 128 mmHg 2017-09-13 Blood pressure diastolic 70 mmHg 2017-09-13 MEDICATIONS Medication Instructions Dosage Frequency Start Date End Date Duration Status Pen [place] 32G X 4 MM as directed Dec, 90 days Unknown Proventil HFA 108 (90 Base) MCG/ACT Inhalation every 4 hrs 2 puffs as needed 4h Dec, Unknown Test strips Test Strips Contour teststrips directed 12h Dec, Unknown Calamine - Unknown Zyrtec Allergy 10 MG Orally Once a day 1 tablet 24h Aug, September, 30 day(s) Unknown Famotidine 20 mg Orally twice a day 1 tablet at bedtime 12h 90 days Unknown Levemir Flexpen 100 unit/mL (3 mL) subcutaneous 2 times a day 60 units 12h Aug, Unknown Atorvastatin Calcium 40 mg Orally Once a day 1 tablet 24h Jun, 90 days Unknown NovoLog Flexpen 100 UNIT/ML Subcutaneous 3 times a day 25 units 8h 07 Dec, 2014 Unknown Gabapentin 300 MG Orally Three times a day 3 capsules 8h Mar, 30 days Unknown Carafate 1 GM Orally Twice a day 1 tablet at bedtime on an empty stomach before meals 12h 90 days Unknown RESULTS No Results PROCEDURES No Known procedures INSTRUCTIONS MEDICATIONS ADMINISTERED No Known Medications MEDICAL (GENERAL) HISTORY Type Description Date Medical History asthma Medical History type II diabetes Medical History sleep apnea Medical History narcolepsy Surgical History hysterectomy, partial Hospitalization History Chest pain-[facility] 02/27/17
--- OUTSIDE RECORDS SUMMARY | 2018-03-08 22:53 | XMS REPORT ---
Author Author TAWANA QUINTEN [facility] Address [address] [place] [address] Care Team Providers Care Finishing Range Operator Name Role Phone TAWANARUBINA ZHUHANY Unavailable PROBLEMS Type Condition ICD9-CM Code SJT09-RS Code Onset Dates Condition Status SNOMED Code Problem Right carpal tunnel syndrome G56.01 Active 90938166 Problem Gastroesophageal reflux disease with esophagitis K21.0 Active 500917062 Problem Falls frequently R29.6 Active 393974829 Problem Porokeratosis Q82.8 Active 860248379 Problem Posterior subcapsular age-related cataract of both eyes H25.043 Active 9714284 Problem Non-alcoholic fatty liver disease K76.0 Active 040209740 Problem Delayed gastric emptying K30 Active 137844504 Problem Pain in left foot M79.672 Active 0124377 Problem Other chronic pain G89.29 Active 71348178 Problem Tarsal tunnel syndrome of left side G57.52 Active 72772327 Problem Obesity E66.9 Active 829887003 Problem Hypermetropia, bilateral H52.03 Active 91441442 Problem Type 2 diabetes mellitus with hyperglycemia E11.65 Active 04759894 Problem Nuclear cataract of both eyes H25.13 Active 69874129 Problem Presbyopia OU H52.4 Active 41351099 Problem Obstructive sleep apnea G47.33 Active 94248644 Problem Shortness of breath R06.02 Active 327776816 Problem Type 2 diabetes mellitus with diabetic polyneuropathy E11.42 Active 68647028 Problem Lung nodule R91.1 Active 827358056 Problem Mixed hyperlipidemia E78.2 Active 943417142 Problem Primary narcolepsy with cataplexy G47.411 Active 059116510 ALLERGIES No Information ENCOUNTERS Encounter Location Date Diagnosis [facility] [address] [facility] [id number] [address] Dec, Well woman exam Z01.419 ; Screening for breast cancer Z12.31 and Screening for colon cancer Z12.11 [facility] [id number] [place] [address] 27915- 3555 Dec, [facility] [id number] [place] [address] 84590- 7280 Dec, Type 2 diabetes mellitus with hyperglycemia E11.65 ; Mixed hyperlipidemia E78.2 and Gastroesophageal reflux disease with esophagitis K21.0 [facility] [id number] [place] [address] 86896- 7879 Nov, Type 2 diabetes mellitus with hyperglycemia E11.65 and Mixed hyperlipidemia E78.2 [place] [id number] [place] [address] 52339- 7901 Nov, [facility] [id number] [place] [address] 67521- 3749 Oct, [facility] [id number] [place] [address] 78317- 1420 Oct, [facility] [id number] [place] [address] 38188- 0912 September, [facility] [id number] [place] [address] 81350- 9763 September, Type 2 diabetes mellitus with hyperglycemia E11.65 [facility] [id number] [place] [address] 96539- 3519 September, Type 2 diabetes mellitus with hyperglycemia E11.65 [facility] [id number] [place] [address] 62759- 2346 September, Porokeratosis Q82.8 and Type 2 diabetes mellitus with diabetic polyneuropathy E11.42 [facility] [id number] [place] [address] 23362 -6203 Aug, Seasonal allergic rhinitis, unspecified trigger J30.2 [facility] [id number] [place] [address] 22436- 3905 Aug, [facility] [address] [place] [address] 9[address] Aug, [facility] [address] [id number] Aug, Dental examination V72.2 and Dental examination Z01.20 [place] [id number] [place] [address] 68827- 8270 Aug, Dental examination Z01.20 and Dental caries K02.9 [place] [address] 58300- 9690 Aug, Obstructive sleep apnea G47.33 ; Obesity E66.9 ; Type 2 diabetes mellitus with hyperglycemia E11.65 ; Palpitations R00.2 and Corns and callosities L84 [place] [address] 83611- 4295 Jul, [address] 51265- 3279 Jul, [place] [address] 27894- 2218 Jun, Type 2 diabetes mellitus with hyperglycemia E11.65 ; Colon cancer screening Z12.11 ; Mixed hyperlipidemia E78.2 ; Non-alcoholic fatty liver disease K76.0 ; Gastroesophageal reflux disease with esophagitis K21.0 and Pain of upper abdomen R10.10 [place] [id number] [place] [address] 96674- 7288 Jun, Falls frequently R29.6 [facility] [id number] [place] [address] 58229 -1152 May, Infection of nose J34.[address] 58894- 6390 May, Bilateral low back pain without sciatica M54.5 [place] [id number] [place] [address] 38755- 4669 May, Type 2 diabetes mellitus with diabetic polyneuropathy E11.42 ; Obstructive sleep apnea G47.33 and Type 2 diabetes mellitus with hyperglycemia E11.65 [place] [id number] [place] [address] 33186- 8680 Apr, Bilateral low back pain without sciatica M54.5 [facility] [id number] [place] [address] 06297- 5435 Apr, Mixed hyperlipidemia E78.2 and Type 2 diabetes mellitus with hyperglycemia E11.65 [place] [id number] [place] [address] 88137- 1505 Apr, Type 2 diabetes mellitus with diabetic polyneuropathy E11.42 [place] [id number] [place] [address] 95428- 1921 Apr, [place] [address] 21420- 4681 Apr, Skin lesion of left arm L98.9 and Skin lesion of left leg L98.9 [place] [id number] [place] [address] 57313- 1402 Mar, Bilateral low back pain without sciatica M54.5 [place] [id number] [place] [address] 10250- 8335 Mar, Plantar fasciitis of left foot M72.2 ; Bursitis of left foot M71.572 and Type 2 diabetes mellitus with diabetic polyneuropathy E11.42 [place] [id number] [place] [address] 15836- 8967 Feb, Non-alcoholic fatty liver disease K76.0 ; Keratoacanthoma L85.8 ; Seborrheic keratosis L82.1 ; Type 2 diabetes mellitus with hyperglycemia E11.65 and Nuclear cataract of both eyes H25.13 [place] [id number] [place] [address] [id number] Feb, [place] [id number] [place] [address] 97033- 6015 Feb, [place] [id number] [place] [address] 54910- 0720 Feb, [facility] [address] 61234- 7291 Feb, Type 2 diabetes mellitus with hyperglycemia E11.65 ; Back muscle spasm M62.830 and Encounter for immunization Z23 [facility] [address] 03186- 5657 Jan, Plantar fasciitis of left foot M72.2 [place] [address] 33562- 5144 Dec, [place] [address] 89832- 2935 Dec, Plantar fasciitis of left foot M72.2 and Tarsal tunnel syndrome of left side G57.52 [place] [address] 50501- 9933 Dec, [facility] [address] 33328 -2934 Nov, Mary Jane rash of groin B37.89 and Rash and nonspecific skin eruption R21 [place] [address] 31583- 2532 Nov, [place] [address] 18763- 7055 Oct, Type 2 diabetes mellitus with hyperglycemia E11.65 and Mixed hyperlipidemia E78.2 [place] [address] 10617- 6131 Oct, [facility] [address] 18627- 6101 Oct, Chest pain, unspecified R07.9 ; Palpitations R00.2 ; Syncope R55 and Mixed hyperlipidemia E78.2 [facility] [id number] [place] [address] 57145- 8648 Oct, Plantar fasciitis, bilateral M72.2 and Type 1 diabetes mellitus with diabetic neuropathy E10.40 [facility] [address], [place] [address] 2515 Oct, [facility] [id number] [place] [address] 01889- 6103 September, Type 2 diabetes mellitus with hyperglycemia E11.65 [facility] [id number] [place] [address] 03360- 0581 September, Type 2 diabetes mellitus with hyperglycemia E11.65 ; Type 2 diabetes mellitus with diabetic polyneuropathy E11.42 ; Gastroesophageal reflux disease with esophagitis K21.0 and Headache, unspecified headache type R51 [facility] [id number] [place] [address] 23412- 9132 September, [facility] [id number] [place] [address] 60243- 0074 September, [facility] [id number] [place] [address] 63141- 6689 September, [facility] [id number] [place] [address] 10066- 3667 September, Other chest pain R07.89 ; Heart palpitations R00.2 ; Mixed hyperlipidemia E78.2 and Obesity E66.9 [facility] [address], [place] [address]- 1575 Aug, [facility] [address] [place] [address] 38046- 8831 Aug, Type 2 diabetes mellitus with diabetic polyneuropathy E11.42 and Type 2 diabetes mellitus with hyperglycemia E11.65 [facility] [address], [place] [address]- 4237 Aug, [facility] [id number] [place] [address] 17298- 1086 Aug, [facility] [address], [place] [address]- 4894 Aug, [facility] [address] [place] [address]- 6784 Aug, Type 2 diabetes mellitus with hyperglycemia E11.65 [facility] [address] [place] [address] 47060- 1615 Aug, [facility] [id number] [place] [address] 27938- 8337 Jul, Type 2 diabetes mellitus with diabetic polyneuropathy E11.42 [facility] [id number] [place] [address] 59434- 9888 Jul, Type 2 diabetes mellitus with hyperglycemia E11.65 [facility] [id number] [place] [address] 71705- 1785 Jul, [facility] [id number] [place] [address] 76418- 5632 Jul, [facility] [id number] [place] [address] 35647- 2572 Jul, [facility] [id number] [place] [address] 73896- 4780 Jul, Type 2 diabetes mellitus with diabetic polyneuropathy E11.42 and Type 2 diabetes mellitus with hyperglycemia E11.65 [facility] [address] [place] [address] 87501- 3529 Jun, Obstructive sleep apnea G47.33 [facility] [id number] [place] [address] 42210- 5216 Jun, Type 2 diabetes mellitus with diabetic polyneuropathy E11.42 ; Primary narcolepsy with cataplexy G47.411 ; Abdominal bloating R14.0 ; Other chest pain R07.89 and Vision problems H54.7 [facility] [id number] [place] [address] 10501- 6858 Jun, [facility] [address] [place] [address] 13823- 3333 May, [facility] [id number] [place] [address] 71023- 1802 Apr, [facility] [address] 92077- 8036 Apr, Plantar fasciitis of left foot M72.2 [facility] [id number] [place] [address] 15965- 0341 Mar, [facility] [address] 72429- 6197 Mar, Plantar fasciitis of left foot M72.2 and Type 2 diabetes mellitus with diabetic polyneuropathy E11.42 [place] [address] 41704- 1950 Feb, Type 2 diabetes mellitus with hyperglycemia E11.65 ; Mixed hyperlipidemia E78.2 and Encounter for immunization Z23 [place] [id number] [place] [address] 95330- 9847 Feb, [place] [address] 18999- 8229 Feb, [facility] [address] 41259- 1409 Feb, Type 2 diabetes mellitus with hyperglycemia E11.65 [place] [address] [place] [address] 07576- 2453 Feb, Type 2 diabetes mellitus with hyperglycemia E11.65 [place] [id number] [place] [address] 18163- 4993 Jan, [place] [id number] [place] [address] 26843- 7679 Dec, Pain in left foot M79.672 ; Other chronic pain G89.29 ; Type 2 diabetes mellitus with hyperglycemia E11.65 ; Obstructive sleep apnea G47.33 ; Falls frequently R29.6 ; Mixed hyperlipidemia E78.2 and Gastroesophageal reflux disease with esophagitis K21.0 [place] [address] 93252- 8836 Nov, [facility] [address], [place] [address]- 9190 Oct, Type 2 diabetes mellitus with diabetic polyneuropathy E11.42 [facility] [address], [place] [address]- 6236 Oct, [facility] [address], [place] [address]- 9675 Oct, [facility] [address], [place] [address]- 9828 September, [facility] [address], [place] [address]- 9100 September, [facility] [address], [place] [address]- 6470 September, [facility] [address], [place] [address]- 3823 September, [facility] [address], [place] [address]- 6724 September, [facility] [address], [place] [address]- 6303 Aug, Type 2 diabetes mellitus with hyperglycemia E11.65 ; Mixed hyperlipidemia E78.2 and Right carpal tunnel syndrome G56.01 [facility] [address], [place] [address]- 1705 Aug, [facility] [address], [place] [address]- 2950 Jul, [facility] [id number], [place] [address]- 6255 Jun, [facility] [address] 0506 Jun, [facility] [id number], [place] [address]- 0065 May, [facility] [id number] [place] [address] 38066- 4838 May, [facility] [id number] [place] [address] 19465- 6588 May, Type 2 diabetes mellitus with hyperglycemia E11.65 and Falls E888.9 [facility] [id number] [place] [address] 30179- 4699 Apr, Type 2 diabetes mellitus with hyperglycemia E11.65 [facility] [address] 42109- 3824 Apr, [facility] [id number] [place] [address] 50133- 5280 Apr, Type 2 diabetes mellitus with hyperglycemia E11.65 [facility] [id number] [place] [address] 71263- 5104 Apr, [facility] [address] 04350- 5780 Mar, Type 2 diabetes mellitus with diabetic polyneuropathy E11.42 ; Bilateral low back pain without sciatica M54.5 and Dry nose J34.89 [facility] [address] [place] [address] 40957- 6308 Mar, Palpitations R00.2 ; Syncope R55 ; DM (diabetes mellitus) E11.9 and Obesity E66.9 [facility] [address] [place] [address] 90298- 1227 Mar, [facility] [id number] [place] [address] 60562- 9366 Mar, [facility] [id number] [place] [address] 36538- 3083 Mar, [facility] [id number] [place] [address] 67996- 4976 Feb, [facility] [id number] [place] [address] 63086- 8884 14 Jan, 2015 [facility] [id number] [place] [address] 50069- 6102 Jan, [facility] [id number] [place] [address] 32987- 7222 Jan, Falls E888.9 and Sinusitis 473.9 [facility] [id number] [place] [address] 91464- 3217 Dec, [facility] [id number] [place] [address] 58440- 9132 Dec, [facility] [id number] [place] [address] 27357- 1576 Dec, [facility] [id number] [place] [address] 11013- 5985 Dec, [facility] [id number] [place] [address] 23493- 3428 Dec, Diabetes mellitus without mention of complication, type II or unspecified type, not stated as uncontrolled 250.00 and Shortness of breath 786.05 [facility] [id number] [place] [address] 57627- 9795 Dec, [facility] [id number] [place] [address] 35988- 7133 Nov, [facility] [id number] [place] [address] 51343- 6190 Nov, [facility] [id number] [place] [address] 14492- 6547 Oct, Restrictive lung disease 518.89 [facility] [id number] [place] [address] 98836- 0623 Oct, [facility] [id number] [place] [address] 77332- 1496 Oct, Shortness of breath 786.05 [facility] [address] [place] [address] 73864- 2034 September, Other nonspecific abnormal finding of lung field 793.19 ; Diabetes mellitus without mention of complication, type II or unspecified type, not stated as uncontrolled 250.00 ; Hyperlipidemia LDL goal < 100 272.4 ; Narcolepsy, with cataplexy 347.01 ; Shortness of breath 786.05 and Chest pain 786.50 [facility] [id number] [place] [address] 59072- 9953 14 Aug, 2014 [facility] [address] 33804- 3867 Aug, [facility] [id number] [place] [address] 068896- 9578 Jun, [facility] [id number] [place] [address] 23571- 2744 Jun, [facility] [id number] [place] [address] 11854- 5240 Jun, [facility] [id number] [place] [address] 47768- 6455 Jun, [facility] [id number] [place] [address] 83759- 8514 Jun, [facility] [id number] [place] [address] 16656- 1371 Jun, [facility] [address] [place] [address] 85415- 3396 Jun, [facility] [id number] [place] [address] 07484- 5579 Jun, [facility] [id number] [place] [address] 279543- 3621 May, [facility] [id number] [place] [address] 175115- 9564 May, [facility] [id number] [place] [address] 341079- 5131 Apr, [facility] [address] [place] [address]- 5074 Apr, [facility] [place] [facility] [address] [id number] [place] [address]- 8635 Mar, [facility] [place] [facility] [address] [id number] [place] [address]- 8779 Mar, [facility] [place] [facility] [address] [id number] [place] [address]- 7601 Mar, [facility] [place] [facility] [address] [id number] [place] [address]- 3970 Mar, [facility] [place] [facility] [address] [id number] [place] [address]- 7589 Nov, [facility] [place] [facility] [address] [id number] [place] [address]- 3304 Nov, [facility] [place] [facility] [address] [id number] [place] [address]- 5611 Nov, [facility] [place] [facility] [address] [id number] [place] [address]- 0426 Nov, [facility] [place] [facility] [address] [id number] [place] [address]- 7359 Oct, [facility] [place] [facility] [address] [id number] [place] [address]- 6974 Oct, [facility] [place] [facility] [address] [id number] [place] [address]- 3796 Oct, [facility] [place] [facility] [address] [id number] [place] [address]- 9002 Oct, [facility] [place] [facility] [address] [id number] [place] [address]- 3336 Oct, [facility] [place] [facility] [address] [id number] [place] [address]- 2797 Oct, [facility] [place] [facility] [address] [id number] [place] [address]- 6860 Oct, [facility] [place] [facility] [address] [id number] [place] [address]- 6064 16 Oct, 2013 [facility] [place] [facility] [address] [id number] [place] [address]- 7156 Oct, [facility] [place] [facility] [address] [id number] [place] [address]- 6644 Oct, [facility] [place] [facility] [address] [id number] [place] [address]- 5242 September, [facility] [place] [facility] [address] [id number] [place] [address]- 8109 September, [facility] [place] [facility] [address] [id number] [place] [address]- 3068 Aug, [facility] [place] [facility] [address] [id number] [place] [address]- 6477 Aug, [facility] [place] [facility] [address] [id number] [place] [address]- 4911 Aug, [facility] [place] [facility] [address] [id number] [place] [address]- 0268 Aug, [facility] [place] [facility] [address] [id number] [place] [address]- 7493 Aug, [facility] [place] [facility] [address] [id number] [place] [address]- 6383 Aug, [facility] [place] [facility] [address] [id number] [place] [address]- 6338 Jul, [facility] [place] [facility] [address] [id number] [place] [address]- 0695 Jul, [facility] [place] [facility] [address] [id number] [place] [address]- 9820 Jul, [facility] [place] [facility] [address] [id number] [place] [address]- 4851 Jul, [facility] [place] [facility] [address] [id number], [place] [address]- 5409 Jul, [facility] [place] [facility] [address] [id number] [place] [address] Jul, [facility] [place] [facility] [address] [id number] [place] [address] Jul, [facility] [place] [facility] [address] [id number] [place] [address] Jul, [facility] [place] [facility] [address] [id number] [place] [address] Jul, [facility] [place] [facility] [address] [id number] [place] [address] Jul, [facility] [place] [facility] [address] [id number] [place] [address] Jul, [facility] [place] [facility] [address] [id number] [place] [address] Jul, [facility] [place] [facility] [address] [id number] [place] [address] Jul, [facility] [place] [facility] [address] [id number] [place] [address] Jul, [facility] [place] [facility] [address] [id number] [place] [address] Jul, [facility] [place] [facility] [address] [id number] [place] [address] Jul, [facility] [place] [facility] [address] [id number] [place] [address] Jun, [facility] [place] [facility] [address] [id number] [place] [address] Jun, [facility] [place] [facility] [address] [id number] [place] [address] Jun, [facility] [place] [facility] [address] [id number] [place] [address] Jun, [facility] [place] [facility] [address] [id number] [place] [address] Jun, [facility] [place] [facility] [address] [id number] [place] [address] 24 Jun, 2013 [facility] [place] [facility] [address] [id number] [place] [address] Jun, [facility] [place] [facility] [address] [id number] [place] [address] Jun, [facility] [place] [facility] [address] [id number] [place] [address] Jun, [facility] [place] [facility] [address] [id number] [place] [address] Jun, [facility] [place] [facility] [address] [id number] [place] [address] 18 Jun, 2013 [facility] [place] [facility] [address] [id number] [place] [address] 18 Jun, 2013 [facility] [place] [facility] [address] [id number] [place] [address] 14 Jun, 2013 [facility] [place] [facility] [address] [id number] [place] [address] 13 Jun, 2013 [facility] [place] [facility] [address] [id number] [place] [address] 13 Jun, 2013 [facility] [place] [facility] [address] [id number] [place] [address] 13 Jun, 2013 [facility] [place] [facility] [address] [id number] [place] [address] 13 Jun, 2013 [facility] [place] [facility] [address] [id number] [place] [address] 12 Jun, 2013 [facility] [place] [facility] [address] [id number] [place] [address] 12 Jun, 2013 [facility] [place] [facility] [address] [id number] [place] [address] Jun, 2013 [facility] [place] [facility] [address] [id number] [place] [address] Jun, 2013 [facility] [place] [facility] [address] [id number] [place] [address] Jun, 2013 [facility] [place] [facility] [address] [id number] [place] [address] Jun, 2013 [facility] [place] [facility] [address] [id number] [place] [address] Jun, 2013 [facility] [place] [facility] [address] [id number] [place] [address] Jun, 2013 [facility] [place] [facility] [address] [facility] [id number] [place] [address] Jun, 2013 [facility] [place] [facility] [address] [id number] [place] [address] Jun, 2013 [facility] [place] [facility] [address] [id number] [place] [address] Jun, 2013 [facility] [place] [facility] [address] [facility] [id number] [place] [address] Jun, [facility] [place] [facility] [address] [facility] [id number] [place] [address] Jun, [facility] [place] [facility] [address] [id number], [place] [address] May, [facility] [place] [facility] [address] [id number] [place] [address] May, [facility] [place] [facility] [address] [id number] [place] [address] May, [facility] [place] [facility] [address] [facility] [id number], [place] [address] May, [facility] [place] [facility] [address] [id number], [place] [address] May, [facility] [address] [id number] [place] [address] May, [facility] [place] [facility] [address] [id number] [place] [address] May, [facility] [place] [facility] [address] [id number] [place] [address] May, [facility] [place] [facility] [address] [id number] [place] [address] May, [facility] [place] [facility] [address] [id number] [place] [address] May, [facility] [place] [facility] [address] [id number] [place] [address] May, [facility] [place] [facility] [address] [id number] [place] [address] May, [facility] [place] [facility] [address] [id number] [place] [address] May, [facility] [place] [facility] [address] [id number] [place] [address] May, [facility] [place] [facility] [address] [id number] [place] [address] May, [facility] [place] [facility] [address] [id number] [place] [address]279 Apr, [facility] [place] [facility] [address] [id number] [place] [address] Apr, [facility] [place] [facility] [address] [id number] [place] [address] Dec, [facility] [place] [facility] [address] [id number] [place] [address] Nov, [facility] [place] [facility] [address] [id number] [place] [address] May, [facility] [place] [facility] [address] [facility] [id number] [place] [address] Apr, [facility] [address] [facility] [id number], [place] [address] Apr, [facility] [address] [facility] [id number], [place] [address] Apr, [facility] [address] [facility] [id number], [place] [address] Apr, IMMUNIZATIONS No Known Immunizations SOCIAL HISTORY Never Assessed REASON FOR VISIT Questions about glucose monitor PLAN OF CARE VITAL SIGNS MEDICATIONS Medication Instructions Dosage Frequency Start Date End Date Duration Status Blood Glucose Monitor Contour NEXT 2 times a day test blood sugar 12h September, Active Blood Glucose Test Strip Contour NEXT 2 times a day test blood sugar 12h September, Active RESULTS No Results PROCEDURES No Known procedures INSTRUCTIONS MEDICATIONS ADMINISTERED No Known Medications MEDICAL (GENERAL) HISTORY Type Description Date Medical History asthma Medical History type II diabetes Medical History sleep apnea Medical History narcolepsy Surgical History hysterectomy, partial Hospitalization History Chest pain-[facility] 02/27/17
--- OUTSIDE RECORDS SUMMARY | 2018-03-08 22:54 | XMS REPORT ---
Author Author TAWANA QUINTEN [facility] Address [address] [place] [address] Care Team Providers Care Sole Tier Name Role Phone TAWANARUBINA ZHUHANY Unavailable PROBLEMS Type Condition ICD9-CM Code BPN23-KN Code Onset Dates Condition Status SNOMED Code Problem Right carpal tunnel syndrome G56.01 Active 30929998 Problem Gastroesophageal reflux disease with esophagitis K21.0 Active 890004157 Problem Falls frequently R29.6 Active 960183403 Problem Porokeratosis Q82.8 Active 128454263 Problem Posterior subcapsular age-related cataract of both eyes H25.043 Active 9014355 Problem Non-alcoholic fatty liver disease K76.0 Active 132227535 Problem Delayed gastric emptying K30 Active 267176202 Problem Pain in left foot M79.672 Active 7166674 Problem Other chronic pain G89.29 Active 64317642 Problem Tarsal tunnel syndrome of left side G57.52 Active 47796569 Problem Obesity E66.9 Active 953320753 Problem Hypermetropia, bilateral H52.03 Active 33857485 Problem Type 2 diabetes mellitus with hyperglycemia E11.65 Active 16480957 Problem Nuclear cataract of both eyes H25.13 Active 31515157 Problem Presbyopia OU H52.4 Active 95705834 Problem Obstructive sleep apnea G47.33 Active 92333190 Problem Shortness of breath R06.02 Active 470241765 Problem Type 2 diabetes mellitus with diabetic polyneuropathy E11.42 Active 84472489 Problem Lung nodule R91.1 Active 110848570 Problem Mixed hyperlipidemia E78.2 Active 729094307 Problem Primary narcolepsy with cataplexy G47.411 Active 849873279 ALLERGIES No Information ENCOUNTERS Encounter Location Date Diagnosis [facility] [address] [facility] [id number] [address] Dec, Well woman exam Z01.419 ; Screening for breast cancer Z12.31 and Screening for colon cancer Z12.11 [facility] [id number] [place] [address] 12340- 7631 Dec, [facility] [id number] [place] [address] 53217- 2575 Dec, Type 2 diabetes mellitus with hyperglycemia E11.65 ; Mixed hyperlipidemia E78.2 and Gastroesophageal reflux disease with esophagitis K21.0 [facility] [id number] [place] [address] 73270- 8347 Nov, Type 2 diabetes mellitus with hyperglycemia E11.65 and Mixed hyperlipidemia E78.2 [facility] [facility] [id number] [place] [address] 70698- 9725 Nov, [facility] [id number] [place] [address] 00535- 0127 Oct, [facility] [id number] [place] [address] 04114- 7104 Oct, [facility] [id number] [place] [address] 14695- 7910 September, [facility] [id number] [place] [address] 24992- 6755 September, Type 2 diabetes mellitus with hyperglycemia E11.65 [facility] [id number] [place] [address] 61854- 5805 September, Type 2 diabetes mellitus with hyperglycemia E11.65 [facility] [id number] [place] [address] 72628- 9838 September, Porokeratosis Q82.8 and Type 2 diabetes mellitus with diabetic polyneuropathy E11.42 [facility] [id number] [place] [address] 10626 -1867 Aug, Seasonal allergic rhinitis, unspecified trigger J30.2 [facility] [id number] [place] [address] 10572- 6610 Aug, [facility] [address] [place] [address] 5507 Aug, [facility] [address] [id number] Aug, Dental examination V72.2 and Dental examination Z01.20 [place] [id number] [place] [address] 42768- 3675 Aug, Dental examination Z01.20 and Dental caries K02.9 [place] [address] 65394- 0866 Aug, Obstructive sleep apnea G47.33 ; Obesity E66.9 ; Type 2 diabetes mellitus with hyperglycemia E11.65 ; Palpitations R00.2 and Corns and callosities L84 [place] [address] 53287- 7528 Jul, [address] 93398- 2054 Jul, [place] [address] 50826- 9902 Jun, Type 2 diabetes mellitus with hyperglycemia E11.65 ; Colon cancer screening Z12.11 ; Mixed hyperlipidemia E78.2 ; Non-alcoholic fatty liver disease K76.0 ; Gastroesophageal reflux disease with esophagitis K21.0 and Pain of upper abdomen R10.10 [place] [id number] [place] [address] 73793- 8699 Jun, Falls frequently R29.6 [facility] [id number] [place] [address] 59941 -6759 May, Infection of nose J34.[address] 72318- 3779 May, Bilateral low back pain without sciatica M54.5 [place] [id number] [place] [address] 44694- 6084 May, Type 2 diabetes mellitus with diabetic polyneuropathy E11.42 ; Obstructive sleep apnea G47.33 and Type 2 diabetes mellitus with hyperglycemia E11.65 [place] [id number] [place] [address] 19517- 3463 Apr, Bilateral low back pain without sciatica M54.5 [facility] [id number] [place] [address] 70434- 4116 Apr, Mixed hyperlipidemia E78.2 and Type 2 diabetes mellitus with hyperglycemia E11.65 [place] [id number] [place] [address] 26707- 5078 Apr, Type 2 diabetes mellitus with diabetic polyneuropathy E11.42 [facility] [id number] [place] [address] 48094- 4062 Apr, [place] [address] 01307- 2876 Apr, Skin lesion of left arm L98.9 and Skin lesion of left leg L98.9 [facility] [id number] [place] [address] 18110- 2637 Mar, Bilateral low back pain without sciatica M54.5 [place] [id number] [place] [address] 97149- 5274 Mar, Plantar fasciitis of left foot M72.2 ; Bursitis of left foot M71.572 and Type 2 diabetes mellitus with diabetic polyneuropathy E11.42 [place] [id number] [place] [address] 02756- 7759 Feb, Non-alcoholic fatty liver disease K76.0 ; Keratoacanthoma L85.8 ; Seborrheic keratosis L82.1 ; Type 2 diabetes mellitus with hyperglycemia E11.65 and Nuclear cataract of both eyes H25.13 [place] [id number] [place] [address] [id number] Feb, [place] [id number] [place] [address] 53861- 2557 Feb, [place] [id number] [place] [address] 36979- 0681 Feb, [facility] [address] 38283- 5938 Feb, Type 2 diabetes mellitus with hyperglycemia E11.65 ; Back muscle spasm M62.830 and Encounter for immunization Z23 [facility] [address] 51118- 2586 Jan, Plantar fasciitis of left foot M72.2 [place] [address] 98528- 7124 Dec, [place] [address] 36658- 7894 Dec, Plantar fasciitis of left foot M72.2 and Tarsal tunnel syndrome of left side G57.52 [place] [address] 83166- 8576 Dec, [facility] [address] 01698 -3739 Nov, Mary Jane rash of groin B37.89 and Rash and nonspecific skin eruption R21 [place] [address] 81453- 3087 Nov, [place] [address] 75374- 9479 Oct, Type 2 diabetes mellitus with hyperglycemia E11.65 and Mixed hyperlipidemia E78.2 [place] [address] 03172- 3617 Oct, [facility] [address] 43947- 6199 Oct, Chest pain, unspecified R07.9 ; Palpitations R00.2 ; Syncope R55 and Mixed hyperlipidemia E78.2 [facility] [id number] [place] [address] 28884- 9872 Oct, Plantar fasciitis, bilateral M72.2 and Type 1 diabetes mellitus with diabetic neuropathy E10.40 [facility] [address] [address] 1603 Oct, [facility] [id number] [place] [address] 04019- 9309 September, Type 2 diabetes mellitus with hyperglycemia E11.65 [facility] [id number] [place] [address] 66041- 8133 September, Type 2 diabetes mellitus with hyperglycemia E11.65 ; Type 2 diabetes mellitus with diabetic polyneuropathy E11.42 ; Gastroesophageal reflux disease with esophagitis K21.0 and Headache, unspecified headache type R51 [facility] [id number] [place] [address] 63874- 0348 September, [facility] [id number] [place] [address] 36096- 2223 September, [facility] [id number] [place] [address] 42941- 7716 September, [facility] [id number] [place] [address] 66123- 6179 September, Other chest pain R07.89 ; Heart palpitations R00.2 ; Mixed hyperlipidemia E78.2 and Obesity E66.9 [facility] [address] [address]- 9040 Aug, [facility] [address] [place] [address] 03789- 6844 Aug, Type 2 diabetes mellitus with diabetic polyneuropathy E11.42 and Type 2 diabetes mellitus with hyperglycemia E11.65 [facility] [address] [address]- 7674 Aug, [facility] [id number] [place] [address] 71566- 3672 Aug, [facility] [address] [address]- 2017 Aug, [facility] [address] [address]- 7598 Aug, Type 2 diabetes mellitus with hyperglycemia E11.65 [facility] [address] [place] [address] 50565- 8739 Aug, [facility] [id number] [place] [address] 20922- 3253 Jul, Type 2 diabetes mellitus with diabetic polyneuropathy E11.42 [facility] [id number] [place] [address] 20835- 1097 Jul, Type 2 diabetes mellitus with hyperglycemia E11.65 [facility] [id number] [place] [address] 06756- 4884 Jul, [facility] [id number] [place] [address] 47509- 7206 Jul, [facility] [id number] [place] [address] 58002- 0212 Jul, [facility] [id number] [place] [address] 00360- 3780 Jul, Type 2 diabetes mellitus with diabetic polyneuropathy E11.42 and Type 2 diabetes mellitus with hyperglycemia E11.65 [facility] [address] [place] [address] 74347- 2476 Jun, Obstructive sleep apnea G47.33 [facility] [id number] [place] [address] 95518- 1969 Jun, Type 2 diabetes mellitus with diabetic polyneuropathy E11.42 ; Primary narcolepsy with cataplexy G47.411 ; Abdominal bloating R14.0 ; Other chest pain R07.89 and Vision problems H54.7 [facility] [id number] [place] [address] 23362- 2203 Jun, [facility] [address] [place] [address] 30720- 3649 May, [facility] [id number] [place] [address] 79219- 8605 Apr, [facility] [address] 86283- 1107 Apr, Plantar fasciitis of left foot M72.2 [facility] [id number] [place] [address] 32768- 7574 Mar, [facility] [address] 36084- 8085 Mar, Plantar fasciitis of left foot M72.2 and Type 2 diabetes mellitus with diabetic polyneuropathy E11.42 [place] [address] 57848- 9631 Feb, Type 2 diabetes mellitus with hyperglycemia E11.65 ; Mixed hyperlipidemia E78.2 and Encounter for immunization Z23 [place] [id number] [place] [address] 74501- 7568 Feb, [place] [address] 15844- 3108 Feb, [facility] [address] 99814- 1092 Feb, Type 2 diabetes mellitus with hyperglycemia E11.65 [place] [id number] [place] [address] 41289- 1292 Feb, Type 2 diabetes mellitus with hyperglycemia E11.65 [place] [id number] [place] [address] 83504- 9679 Jan, [place] [id number] [place] [address] 23185- 0011 Dec, Pain in left foot M79.672 ; Other chronic pain G89.29 ; Type 2 diabetes mellitus with hyperglycemia E11.65 ; Obstructive sleep apnea G47.33 ; Falls frequently R29.6 ; Mixed hyperlipidemia E78.2 and Gastroesophageal reflux disease with esophagitis K21.0 [place] [address] 84822- 4384 Nov, [facility] [address] [address]- 5457 Oct, Type 2 diabetes mellitus with diabetic polyneuropathy E11.42 [facility] [address], [place] [address]- 0248 Oct, [facility] [address], [place] [address]- 2084 Oct, [facility] [address] [address]- 8670 September, [facility] [address] [address]- 5808 September, [facility] [address] [address]- 8959 September, [facility] [address] [address]- 1565 September, [facility] [address], [place] [address]- 5032 September, [facility] [address] [address]- 4860 Aug, Type 2 diabetes mellitus with hyperglycemia E11.65 ; Mixed hyperlipidemia E78.2 and Right carpal tunnel syndrome G56.01 [facility] [address] [address]- 9533 Aug, [facility] [address] [address]- 3390 Jul, [facility] [id number] [address]- 3158 Jun, [facility] [address] 2226 Jun, [facility] [id number] [address]- 5600 May, [facility] [id number] [place] [address] 75260- 9962 May, [facility] [id number] [place] [address] 29129- 6055 May, Type 2 diabetes mellitus with hyperglycemia E11.65 and Falls E888.9 [facility] [id number] [place] [address] 19283- 7280 Apr, Type 2 diabetes mellitus with hyperglycemia E11.65 [facility] [address] 75749- 9244 Apr, [facility] [id number] [place] [address] 46509- 8201 Apr, Type 2 diabetes mellitus with hyperglycemia E11.65 [facility] [id number] [place] [address] 59205- 1958 Apr, [facility] [address] 55276- 1172 Mar, Type 2 diabetes mellitus with diabetic polyneuropathy E11.42 ; Bilateral low back pain without sciatica M54.5 and Dry nose J34.89 [facility] [id number] [place] [address] 57962- 6918 Mar, Palpitations R00.2 ; Syncope R55 ; DM (diabetes mellitus) E11.9 and Obesity E66.9 [facility] [id number] [place] [address] 11718- 1931 Mar, [facility] [id number] [place] [address] 86124- 9111 Mar, [facility] [id number] [place] [address] 33240- 2530 Mar, [facility] [id number] [place] [address] 34255- 9914 Feb, [facility] [id number] [place] [address] 35645- 5653 14 Jan, 2015 [facility] [id number] [place] [address] 88959- 8322 Jan, [facility] [id number] [place] [address] 40288- 1084 Jan, Falls E888.9 and Sinusitis 473.9 [facility] [id number] [place] [address] 44334- 7905 Dec, [facility] [id number] [place] [address] 21247- 7898 Dec, [facility] [id number] [place] [address] 46892- 2674 Dec, [facility] [id number] [place] [address] 10104- 5350 Dec, [facility] [id number] [place] [address] 63084- 9481 Dec, Diabetes mellitus without mention of complication, type II or unspecified type, not stated as uncontrolled 250.00 and Shortness of breath 786.05 [facility] [id number] [place] [address] 42183- 2449 Dec, [facility] [id number] [place] [address] 89563- 1537 Nov, [facility] [id number] [place] [address] 59091- 3188 Nov, [facility] [id number] [place] [address] 01263- 6678 Oct, Restrictive lung disease 518.89 [facility] [id number] [place] [address] 56837- 0532 Oct, [facility] [id number] [place] [address] 62652- 7728 Oct, Shortness of breath 786.05 [facility] [address] [place] [address] 77806- 5081 September, Other nonspecific abnormal finding of lung field 793.19 ; Diabetes mellitus without mention of complication, type II or unspecified type, not stated as uncontrolled 250.00 ; Hyperlipidemia LDL goal < 100 272.4 ; Narcolepsy, with cataplexy 347.01 ; Shortness of breath 786.05 and Chest pain 786.50 [facility] [id number] [place] [address] 91098- 2125 14 Aug, 2014 [facility] [address] 36663- 0954 Aug, [facility] [id number] [place] [address] 255220- 5073 Jun, [facility] [id number] [place] [address] 71480- 0466 Jun, [facility] [id number] [place] [address] 80866- 0124 Jun, [facility] [id number] [place] [address] 65487- 6134 Jun, [facility] [id number] [place] [address] 34547- 0069 Jun, [facility] [id number] [place] [address] 02230- 6844 Jun, [facility] [address] [place] [address] 43934- 7436 Jun, [facility] [id number] [place] [address] 43666- 1724 Jun, [facility] [id number] [place] [address] 626309- 2528 May, [facility] [id number] [place] [address] 331806- 4802 May, [facility] [id number] [place] [address] 824107- 1489 Apr, [facility] [id number] [address]- 3625 Apr, [facility] [place] [facility] [address] [id number] [place] [address]- 3268 Mar, [facility] [place] [facility] [address] [id number] [place] [address]- 5593 Mar, [facility] [place] [facility] [address] [id number] [place] [address]- 4220 Mar, [facility] [place] [facility] [address] [id number] [place] [address]- 4066 Mar, [facility] [place] [facility] [address] [id number] [place] [address]- 6845 Nov, [facility] [place] [facility] [address] [id number] [place] [address]- 7897 Nov, [facility] [place] [facility] [address] [id number] [place] [address]- 1244 Nov, [facility] [place] [facility] [address] [id number] [place] [address]- 6253 Nov, [facility] [place] [facility] [address] [id number] [place] [address]- 6438 Oct, [facility] [place] [facility] [address] [id number] [place] [address]- 5043 Oct, [facility] [place] [facility] [address] [id number] [place] [address]- 3882 Oct, [facility] [place] [facility] [address] [id number] [place] [address]- 9245 Oct, [facility] [place] [facility] [address] [id number] [place] [address]- 4981 Oct, [facility] [place] [facility] [address] [id number] [place] [address]- 8668 Oct, [facility] [place] [facility] [address] [id number] [place] [address]- 4418 Oct, [facility] [place] [facility] [address] [id number] [place] [address]- 6108 16 Oct, 2013 [facility] [place] [facility] [address] [id number] [place] [address]- 7691 Oct, [facility] [place] [facility] [address] [id number] [place] [address]- 2809 Oct, [facility] [place] [facility] [address] [id number] [place] [address]- 3122 September, [facility] [place] [facility] [address] [id number] [place] [address]- 5966 September, [facility] [place] [facility] [address] [id number] [place] [address]- 0446 Aug, [facility] [place] [facility] [address] [id number] [place] [address]- 5248 Aug, [facility] [place] [facility] [address] [id number] [place] [address]- 2318 Aug, [facility] [place] [facility] [address] [id number] [place] [address]- 7491 Aug, [facility] [place] [facility] [address] [id number] [place] [address]- 8237 Aug, [facility] [place] [facility] [address] [id number] [place] [address] Aug, [facility] [place] [facility] [address] [id number] [place] [address] Jul, [facility] [place] [facility] [address] [id number] [place] [address] Jul, [facility] [place] [facility] [address] [id number] [place] [address] Jul, [facility] [place] [facility] [address] [id number] [place] [address] Jul, [facility] [place] [facility] [address] [id number] [address] Jul, [facility] [place] [facility] [address] [id number] [place] [address] Jul, [facility] [place] [facility] [address] [id number] [place] [address] Jul, [facility] [place] [facility] [address] [id number] [place] [address] Jul, [facility] [place] [facility] [address] [id number] [place] [address] Jul, [facility] [place] [facility] [address] [id number] [place] [address] Jul, [facility] [place] [facility] [address] [id number] [place] [address] Jul, [facility] [place] [facility] [address] [id number] [place] [address] Jul, [facility] [place] [facility] [address] [id number] [place] [address] Jul, [facility] [place] [facility] [address] [id number] [place] [address] Jul, [facility] [place] [facility] [address] [id number] [place] [address] Jul, [facility] [place] [facility] [address] [id number] [place] [address] Jul, [facility] [place] [facility] [address] [id number] [place] [address] Jun, [facility] [place] [facility] [address] [id number] [place] [address] Jun, [facility] [place] [facility] [address] [id number] [place] [address] Jun, [facility] [place] [facility] [address] [id number] [place] [address] Jun, [facility] [place] [facility] [address] [id number] [place] [address] Jun, [facility] [place] [facility] [address] [id number] [place] [address] 24 Jun, 2013 [facility] [place] [facility] [address] [id number] [place] [address] Jun, [facility] [place] [facility] [address] [id number] [place] [address] Jun, [facility] [place] [facility] [address] [id number] [place] [address] Jun, [facility] [place] [facility] [address] [id number] [place] [address] Jun, [facility] [place] [facility] [address] [id number] [place] [address] 18 Jun, 2013 [facility] [place] [facility] [address] [id number] [place] [address] 18 Jun, 2013 [facility] [place] [facility] [address] [id number] [place] [address] 14 Jun, 2013 [facility] [place] [facility] [address] [id number] [place] [address] 13 Jun, 2013 [facility] [place] [facility] [address] [id number] [place] [address] 13 Jun, 2013 [facility] [place] [facility] [address] [id number] [place] [address] 13 Jun, 2013 [facility] [place] [facility] [address] [id number] [place] [address] 13 Jun, 2013 [facility] [place] [facility] [address] [id number] [place] [address] 12 Jun, 2013 [facility] [place] [facility] [address] [id number] [place] [address] 12 Jun, 2013 [facility] [place] [facility] [address] [id number] [place] [address] Jun, 2013 [facility] [place] [facility] [address] [id number] [place] [address] Jun, 2013 [facility] [place] [facility] [address] [id number] [place] [address] Jun, 2013 [facility] [place] [facility] [address] [id number] [place] [address] Jun, 2013 [facility] [place] [facility] [address] [id number] [place] [address] Jun, 2013 [facility] [place] [facility] [address] [id number] [place] [address] Jun, 2013 [facility] [place] [facility] [address] [facility] [id number] [place] [address] Jun, 2013 [facility] [place] [facility] [address] [id number] [place] [address]- [address] Jun, 2013 [facility] [place] [facility] [address] [id number] [place] [address] Jun, 2013 [facility] [place] [facility] [address] [facility] [id number] [place] [address] Jun, [facility] [place] [facility] [address] [facility] [id number] [place] [address] Jun, [facility] [place] [facility] [address] [id number], [place] [address] May, [facility] [place] [facility] [address] [id number] [place] [address] May, [facility] [place] [facility] [address] [id number] [place] [address]- [address] May, [facility] [place] [facility] [address] [facility] [id number], [place] [address] May, [facility] [place] [facility] [address] [id number], [place] [address] May, [facility] [address] [id number] [place] [address] May, [facility] [place] [facility] [address] [id number] [place] [address]- [address] May, [facility] [place] [facility] [address] [id number] [place] [address] May, [facility] [place] [facility] [address] [id number] [place] [address] May, [facility] [place] [facility] [address] [id number] [place] [address] May, [facility] [place] [facility] [address] [id number] [place] [address] May, [facility] [place] [facility] [address] [id number] [place] [address] May, [facility] [place] [facility] [address] [id number] [place] [address]- [address] May, [facility] [place] [facility] [address] [id number] [place] [address] May, [facility] [place] [facility] [address] [id number] [place] [address] May, [facility] [place] [facility] [address] [id number] [place] [address] Apr, [facility] [place] [facility] [address] [id number] [place] [address] Apr, [facility] [place] [facility] [address] [id number] [place] [address] Dec, [facility] [place] [facility] [address] [id number] [place] [address] Nov, [facility] [place] [facility] [address] [id number] [place] [address] May, [facility] [place] [facility] [address] [facility] [id number] [place] [id number] Apr, [facility] [address] [facility] [id number][place] [address] [address] Apr, [facility] [address] [facility] [id number][place] [id number] Apr, [facility] [address] [facility] [id number][place] [address] Apr, IMMUNIZATIONS No Known Immunizations SOCIAL HISTORY Never Assessed REASON FOR VISIT refill PLAN OF CARE VITAL SIGNS MEDICATIONS Medication Instructions Dosage Frequency Start Date End Date Duration Status ReliOn Blood Glucose Test - subcutaneously 4 times a day DX: E11.65 test blood sugar September, Active Lancets - subcutaneously 4 times a day DX: E11.65 test blood sugar September Active RESULTS No Results PROCEDURES No Known procedures INSTRUCTIONS MEDICATIONS ADMINISTERED No Known Medications MEDICAL (GENERAL) HISTORY Type Description Date Medical History asthma Medical History type II diabetes Medical History sleep apnea Medical History narcolepsy Surgical History hysterectomy, partial Hospitalization History Chest pain-[facility] 02/27/17
--- OUTSIDE RECORDS SUMMARY | 2018-03-08 22:55 | XMS REPORT ---
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 Name Role Phone JAMES FRAGA Unavailable PROBLEMS Type Condition ICD9-CM Code RCC81-UD Code Onset Dates Condition Status SNOMED Code Problem Right carpal tunnel syndrome G56.01 Active 47816642 Problem Gastroesophageal reflux disease with esophagitis K21.0 Active 496050095 Problem Falls frequently R29.6 Active 828465517 Problem Porokeratosis Q82.8 Active 354284322 Problem Posterior subcapsular age-related cataract of both eyes H25.043 Active 5989262 Problem Non-alcoholic fatty liver disease K76.0 Active 835522610 Problem Delayed gastric emptying K30 Active 688378409 Problem Pain in left foot M79.672 Active 1492098 Problem Other chronic pain G89.29 Active 97469014 Problem Tarsal tunnel syndrome of left side G57.52 Active 76930893 Problem Obesity E66.9 Active 015820344 Problem Hypermetropia, bilateral H52.03 Active 56843241 Problem Type 2 diabetes mellitus with hyperglycemia E11.65 Active 01791888 Problem Nuclear cataract of both eyes H25.13 Active 61903732 Problem Presbyopia OU H52.4 Active 82888330 Problem Obstructive sleep apnea G47.33 Active 08288343 Problem Shortness of breath R06.02 Active 581959636 Problem Type 2 diabetes mellitus with diabetic polyneuropathy E11.42 Active 60102297 Problem Lung nodule R91.1 Active 314249852 Problem Mixed hyperlipidemia E78.2 Active 249333281 Problem Primary narcolepsy with cataplexy G47.411 Active 633156107 ALLERGIES Substance Reaction Event Type Date Status Penicillin G Sodium Unknown Drug Allergy Aug, Active Erythromycin Unknown Drug Allergy Aug, Active ENCOUNTERS Encounter Location Date Diagnosis [facility] [address] [facility] [id number] [address] Dec, [facility] [id number] [place] [address] 36962- 5534 Dec, Type 2 diabetes mellitus with hyperglycemia E11.65 ; Mixed hyperlipidemia E78.2 and Gastroesophageal reflux disease with esophagitis K21.0 [facility] [id number] [place] [address] 88862- 9373 Nov, Type 2 diabetes mellitus with hyperglycemia E11.65 and Mixed hyperlipidemia E78.2 [facility] [id number] [place] [address] 56723- 0149 Nov, [facility] [id number] [place] [address] 37982- 3661 Oct, [facility] [id number] [place] [address] 45164- 9466 Oct, [facility] [id number] [place] [address] 76604- 1669 September, [facility] [id number] [place] [address] 15815- 9855 September, Type 2 diabetes mellitus with hyperglycemia E11.65 [facility] [id number] [place] [address] 86404- 4921 September, Type 2 diabetes mellitus with hyperglycemia E11.65 [facility] [id number] [place] [address] 39121- 8969 September, Porokeratosis Q82.8 and Type 2 diabetes mellitus with diabetic polyneuropathy E11.42 [facility] [id number] [place] [address] 58015 -6280 Aug, Seasonal allergic rhinitis, unspecified trigger J30.2 [facility] [id number] [place] [address] 31014- 0665 Aug, [facility] [id number] [place] [address] 25807- 2350 Aug, [facility] [id number] [place] [address] [id number] Aug, Dental examination V72.2 and Dental examination Z01.20 [place] [address] 03425- 3921 Aug, Dental examination Z01.20 and Dental caries K02.9 [place] [address] 63923- 4600 Aug, Obstructive sleep apnea G47.33 ; Obesity E66.9 ; Type 2 diabetes mellitus with hyperglycemia E11.65 ; Palpitations R00.2 and Corns and callosities L84 [address] 97574- 9156 Jul, [place] [address] 71634- 5512 Jul, [place] [address] 90058- 7370 Jun, Type 2 diabetes mellitus with hyperglycemia E11.65 ; Colon cancer screening Z12.11 ; Mixed hyperlipidemia E78.2 ; Non-alcoholic fatty liver disease K76.0 ; Gastroesophageal reflux disease with esophagitis K21.0 and Pain of upper abdomen R10.10 [place] [address] 86136- 4934 09 Jun, 2017 Falls frequently R29.6 [facility] [address] 23330 -9983 May, Infection of nose J34.[address] 98634- 3816 May, Bilateral low back pain without sciatica M54.5 [place] [address] 87271- 9601 May, Type 2 diabetes mellitus with diabetic polyneuropathy E11.42 ; Obstructive sleep apnea G47.33 and Type 2 diabetes mellitus with hyperglycemia E11.65 [place] [address] 29771- 9959 Apr, Bilateral low back pain without sciatica M54.5 [facility] [id number] [place] [address] 81193- 6029 Apr, Mixed hyperlipidemia E78.2 and Type 2 diabetes mellitus with hyperglycemia E11.65 [facility] [id number] [place] [address] 93804- 4921 Apr, Type 2 diabetes mellitus with diabetic polyneuropathy E11.42 [facility] [id number] [place] [address] 06635- 8290 Apr, [facility] [id number] [place] [address] 60340- 1915 Apr, Skin lesion of left arm L98.9 and Skin lesion of left leg L98.9 [facility] [id number] [place] [address] 04229- 7060 Mar, Bilateral low back pain without sciatica M54.5 [facility] [id number] [place] [address] 84551- 8989 Mar, Plantar fasciitis of left foot M72.2 ; Bursitis of left foot M71.572 and Type 2 diabetes mellitus with diabetic polyneuropathy E11.42 [facility] [id number] [place] [address] 23680- 0498 Feb, Non-alcoholic fatty liver disease K76.0 ; Keratoacanthoma L85.8 ; Seborrheic keratosis L82.1 ; Type 2 diabetes mellitus with hyperglycemia E11.65 and Nuclear cataract of both eyes H25.13 [facility] [id number] [place] [id number] Feb, [facility] [id number] [place] [address] 46953- 2722 Feb, [facility] [id number] [place] [address] 28151- 5836 Feb, [facility] [id number] [place] [address] 83764- 8698 Feb, Type 2 diabetes mellitus with hyperglycemia E11.65 ; Back muscle spasm M62.830 and Encounter for immunization Z23 [place] [address] 57112- 3314 Jan, Plantar fasciitis of left foot M72.2 [place] [address] 34704- 6913 Dec, [facility] [address] 35652- 9452 Dec, Plantar fasciitis of left foot M72.2 and Tarsal tunnel syndrome of left side G57.52 [place] [address] 49711- 0010 Dec, [facility] [address] 65569 -2008 Nov, Mary Jane rash of groin B37.89 and Rash and nonspecific skin eruption R21 [place] [address] 26638- 6793 Nov, [place] [address] 84901- 9921 Oct, Type 2 diabetes mellitus with hyperglycemia E11.65 and Mixed hyperlipidemia E78.2 [place] [address] 11747- 4933 Oct, [place] [address] 22829- 6109 Oct, Chest pain, unspecified R07.9 ; Palpitations R00.2 ; Syncope R55 and Mixed hyperlipidemia E78.2 [place] [address] 22078- 0555 Oct, Plantar fasciitis, bilateral M72.2 and Type 1 diabetes mellitus with diabetic neuropathy E10.40 [place] [address] 65386- 6343 Oct, [facility] [address] [address] 0390 September, Type 2 diabetes mellitus with hyperglycemia E11.65 [facility] [id number] [place] [address] 10898- 9637 September, Type 2 diabetes mellitus with hyperglycemia E11.65 ; Type 2 diabetes mellitus with diabetic polyneuropathy E11.42 ; Gastroesophageal reflux disease with esophagitis K21.0 and Headache, unspecified headache type R51 [facility] [id number] [place] [address] 91896- 6815 September, [facility] [id number] [place] [address] 89386- 7156 September, [facility] [id number] [place] [address] 28618- 7937 September, [facility] [id number] [place] [address] 64807- 0075 September, Other chest pain R07.89 ; Heart palpitations R00.2 ; Mixed hyperlipidemia E78.[address] [facility] [id number] [place] [address] 72030- 1333 Aug, [facility] [id number] [place] [address] 16514- 9292 Aug, Type 2 diabetes mellitus with diabetic polyneuropathy E11.42 and Type 2 diabetes mellitus with hyperglycemia E11.65 [facility] [id number] [place] [address] 29381- 2029 Aug, [facility] [id number] [place] [address] 02635- 4652 Aug, [facility] [id number] [place] [address] 73533- 3979 Aug, [facility] [id number] [place] [address] 70078- 4191 Aug, Type 2 diabetes mellitus with hyperglycemia E11.65 [place] [address] [address] 7189 Aug, [facility] [id number] [place] [address] 39098- 7419 Jul, Type 2 diabetes mellitus with diabetic polyneuropathy E11.42 [facility] [address] [address]- 9782 Jul, Type 2 diabetes mellitus with hyperglycemia E11.65 [facility] [address] [address]- 6430 Jul, [facility] [id number] [place] [address] 87818- 2698 Jul, [facility] [id number] [place] [address] 09587- 8125 Jul, [facility] [id number] [place] [address] 97733- 6265 Jul, Type 2 diabetes mellitus with diabetic polyneuropathy E11.42 and Type 2 diabetes mellitus with hyperglycemia E11.65 [facility] [address] [address]- 7103 Jun, Obstructive sleep apnea G47.33 [facility] [address] [address]- 0441 Jun, Type 2 diabetes mellitus with diabetic polyneuropathy E11.42 ; Primary narcolepsy with cataplexy G47.411 ; Abdominal bloating R14.0 ; Other chest pain R07.89 [address]54.7 [facility] [address] [address]- 8048 Jun, [facility] [id number] [place] [address] 49374- 7512 May, [facility] [address] [address]- 3386 Apr, [facility] [id number] [place] [address] 59130- 0093 Apr, Plantar fasciitis of left foot M72.2 [place] [address] 55881- 9437 Mar, [facility] [address] 08435- 3218 Mar, Plantar fasciitis of left foot M72.2 and Type 2 diabetes mellitus with diabetic polyneuropathy E11.42 [place] [address] 80883- 3306 Feb, Type 2 diabetes mellitus with hyperglycemia E11.65 ; Mixed hyperlipidemia E78.2 and Encounter for immunization Z23 [place] [address] 51823- 6464 Feb, [place] [address] 48009- 6798 Feb, [place] [address] 61775- 7909 Feb, Type 2 diabetes mellitus with hyperglycemia E11.65 [place] [address] 36077- 7670 Feb, Type 2 diabetes mellitus with hyperglycemia E11.65 [place] [id number] [place] [address] 54124- 2540 Jan, [place] [address] 81874- 5709 Dec, Pain in left foot M79.672 ; Other chronic pain G89.29 ; Type 2 diabetes mellitus with hyperglycemia E11.65 ; Obstructive sleep apnea G47.33 ; Falls frequently R29.6 ; Mixed hyperlipidemia E78.2 and Gastroesophageal reflux disease with esophagitis K21.0 [facility] [id number] [place] [address] 10312- 9684 Nov, [place] [address] 08833- 9309 Oct, Type 2 diabetes mellitus with diabetic polyneuropathy E11.42 [facility] [address] [address]- 7387 Oct, [facility] [address] [address]- 9997 Oct, [facility] [address] [address]- 7274 September, [facility] [id number] [place] [address] 41085- 6717 September, [facility] [address] [address]- 4619 September, [facility] [id number] [place] [address] 24055- 9458 September, [facility] [id number] [place] [address] 66476- 8930 September, [facility] [address] [address]- 3684 Aug, Type 2 diabetes mellitus with hyperglycemia E11.65 ; Mixed hyperlipidemia E78.2 and Right carpal tunnel syndrome G56.01 [facility] [address] [address]- 2296 Aug, [facility] [address] [address]- 8278 Jul, [facility] [address], [place] [address]- 7687 Jun, [facility] [address] [address]- 3403 Jun, [facility] [address] [address]- 1058 May, [facility] [address] [address]- 2432 May, [facility] [id number] [place] [address] 18065- 5002 May, Type 2 diabetes mellitus with hyperglycemia E11.[address] [facility] [id number] [place] [address] 27601- 0787 Apr, Type 2 diabetes mellitus with hyperglycemia E11.65 [facility] [id number] [place] [address] 94397- 3314 Apr, [facility] [id number] [place] [address] 70251- 1715 Apr, Type 2 diabetes mellitus with hyperglycemia E11.65 [facility] [address] 02503- 9772 Apr, [facility] [id number] [place] [address] 24568- 3081 Mar, Type 2 diabetes mellitus with diabetic polyneuropathy E11.42 ; Bilateral low back pain without sciatica M54.5 [address] Dry nose J34.89 [facility] [id number] [place] [address] 84745- 6144 Mar, Palpitations R00.2 ; Syncope R55 ; DM (diabetes mellitus) E11.[address] [facility] [id number] [place] [address] 60892- 7195 Mar, [facility] [id number] [place] [address] 87622- 9528 Mar, [facility] [id number] [place] [address] 02728- 0110 Mar, [facility] [id number] [place] [address] 27425- 6107 Feb, [facility] [id number] [place] [address] 59994- 6682 [address] Jan, 2015 [facility] [id number] [place] [address] 42216- 5241 Jan, [facility] [id number] [address]- 0274 Jan, Falls E888.[address] [facility] [id number] [place] [address] 35697- 9561 Dec, [facility] [id number] [place] [address] 81888- 2421 Dec, [facility] [id number] [place] [address] 97568- 0162 Dec, [facility] [id number] [place] [address] 20275- 3970 Dec, [facility] [id number] [place] [address] 91653- 2311 Dec, Diabetes mellitus without mention of complication, type II or unspecified type, not stated as uncontrolled 250.00 and Shortness of breath 786.05 [place] [id number] [place] [address] 98815- 5183 Dec, [facility] [id number] [place] [address] 96314- 4001 Nov, [facility] [id number] [place] [address] 34690- 7728 Nov, [facility] [id number] [place] [address] 66147- 1438 Oct, Restrictive lung disease 518.89 [place] [id number] [place] [address] 33496- 7822 Oct, [facility] [address] [place] [address] 35071- 5413 Oct, Shortness of breath 786.05 [facility] [id number] [place] [address] 65412- 5551 September, Other nonspecific abnormal finding of lung field 793.19 ; Diabetes mellitus without mention of complication, type II or unspecified type, not stated as uncontrolled 250.00 ; Hyperlipidemia LDL goal < 100 272.4 ; Narcolepsy, with cataplexy 347.01 ; Shortness of breath 786.05 and Chest pain 786.50 [facility] [id number] [place] [address] 648698- 8513 14 Aug, 2014 [facility] [id number] [place] [address] 649582- 1486 Aug, [facility] [address] 19267- 7537 Jun, [facility] [id number] [place] [address] 375708- 2676 Jun, [facility] [id number] [place] [address] 19507- 2797 Jun, [facility] [id number] [place] [address] 86462- 9828 Jun, [facility] [id number] [place] [address] 47172- 6677 Jun, [facility] [id number] [place] [address] 97491- 5822 Jun, [facility] [id number] [place] [address] 88537- 0251 Jun, [facility] [id number] [place] [address] 05574- 1140 Jun, [facility] [id number] [place] [address] 24867- 3366 May, [facility] [id number] [place] [address] 929202- 8555 May, [facility] [id number] [place] [address] 053561- 8738 Apr, [facility] [id number] [place] [address] 420951- 8736 Apr, [facility] [address] [place] [place] [address]- 7021 Mar, [facility] [place] [facility] [address] [id number] [place] [address]- 9883 Mar, [facility] [place] [facility] [address] [id number] [place] [address]- 8917 Mar, [facility] [place] [facility] [address] [id number] [place] [address]- 8178 Mar, [facility] [place] [facility] [address] [id number] [place] [address]- 4908 Nov, [facility] [place] [facility] [address] [id number] [place] [address]- 2928 Nov, [facility] [place] [facility] [address] [id number] [place] [address]- 4544 Nov, [facility] [place] [facility] [address] [id number] [place] [address]- 6326 Nov, [facility] [place] [facility] [address] [id number] [place] [address]- 7373 Oct, [facility] [place] [facility] [address] [id number] [place] [address]- 6947 Oct, [facility] [place] [facility] [address] [id number] [place] [address]- 5454 Oct, [facility] [place] [facility] [address] [id number] [place] [address]- 9778 Oct, [facility] [place] [facility] [address] [id number] [place] [address]- 3771 Oct, [facility] [place] [facility] [address] [id number] [place] [address]- 5934 Oct, [facility] [place] [facility] [address] [id number] [place] [address]- 5285 Oct, [facility] [place] [facility] [address] [id number] [place] [address]- 5399 Oct, [facility] [place] [facility] [address] [id number] [place] [address]- 2393 Oct, [facility] [place] [facility] [address] [id number] [place] [address]- 0530 Oct, [facility] [place] [facility] [address] [id number] [place] [address]- 3352 September, [facility] [place] [facility] [address] [id number] [place] [address]- 6987 September, [facility] [place] [facility] [address] [id number] [place] [address]- 4105 Aug, [facility] [place] [facility] [address] [id number] [place] [address]- 6714 Aug, [facility] [place] [facility] [address] [id number] [place] [address]- 7273 Aug, [facility] [place] [facility] [address] [id number] [place] [address]- 1296 Aug, [facility] [place] [facility] [address] [id number] [place] [address]- 6655 Aug, [facility] [place] [facility] [address] [id number] [place] [address]- 6692 Aug, [facility] [place] [facility] [address] [id number] [place] [address]- 8144 Jul, [facility] [place] [facility] [address] [id number] [place] [address]- 7125 Jul, [facility] [place] [facility] [address] [id number] [place] [address]- 9688 Jul, [facility] [place] [facility] [address] [id number] [place] [address]- 6365 Jul, [facility] [place] [facility] [address] [id number] [place] [address]- 4807 Jul, [facility] [place] [facility] [address] [id number] [place] [address] Jul, [facility] [place] [facility] [address] [id number] [place] [address] Jul, [facility] [place] [facility] [address] [id number] [place] [address] Jul, [facility] [place] [facility] [address] [id number] [place] [address] Jul, [facility] [place] [facility] [address] [id number] [place] [address] Jul, [facility] [place] [facility] [address] [id number] [place] [address] Jul, [facility] [place] [facility] [address] [id number] [place] [address] Jul, [facility] [place] [facility] [address] [id number] [place] [address] Jul, [facility] [place] [facility] [address] [id number] [place] [address] Jul, [facility] [place] [facility] [address] [id number] [place] [address] Jul, [facility] [place] [facility] [address] [id number] [place] [address] Jul, [facility] [place] [facility] [address] [id number] [place] [address] Jun, [facility] [place] [facility] [address] [id number] [place] [address] Jun, [facility] [place] [facility] [address] [id number] [place] [address] Jun, [facility] [place] [facility] [address] [id number] [place] [address] Jun, [facility] [place] [facility] [address] [id number] [place] [address] Jun, [facility] [place] [facility] [address] [id number] [place] [address] 24 Jun, 2013 [facility] [place] [facility] [address] [id number] [place] [address] Jun, [facility] [place] [facility] [address] [id number] [place] [address] Jun, [facility] [place] [facility] [address] [id number] [place] [address] 20 Jun, 2013 [facility] [place] [facility] [address] [id number] [place] [address]- [address] 20 Jun, 2013 [facility] [place] [facility] [address] [id number] [place] [address] 18 Jun, 2013 [facility] [place] [facility] [address] [id number] [place] [address] 18 Jun, 2013 [facility] [place] [facility] [address] [id number] [place] [address] 14 Jun, 2013 [facility] [place] [facility] [address] [id number] [place] [address]- [address] 13 Jun, 2013 [facility] [place] [facility] [address] [id number] [place] [address] 13 Jun, 2013 [facility] [place] [facility] [address] [id number] [place] [address] 13 Jun, 2013 [facility] [place] [facility] [address] [id number] [place] [address] 13 Jun, 2013 [facility] [place] [facility] [address] [id number] [place] [address] 12 Jun, 2013 [facility] [place] [facility] [address] [id number] [place] [address] 12 Jun, 2013 [facility] [place] [facility] [address] [id number] [place] [address] 11 Jun, 2013 [facility] [place] [facility] [address] [id number] [place] [address] 11 Jun, 2013 [facility] [place] [facility] [address] [id number] [place] [address] Jun, 2013 [facility] [place] [facility] [address] [id number] [place] [address] Jun, 2013 [facility] [place] [facility] [address] [id number] [place] [address] Jun, 2013 [facility] [place] [facility] [address] [id number] [place] [address] Jun, 2013 [facility] [place] [facility] [address] [id number] [place] [address] Jun, 2013 [facility] [place] [facility] [address] [facility] [id number] [place] [address] Jun, 2013 [facility] [place] [facility] [address] [id number] [place] [address] Jun, 2013 [facility] [place] [facility] [address] [facility] [id number] [place] [address] Jun, 2013 [facility] [place] [facility] [address] [facility] [id number] [place] [address] Jun, [facility] [place] [facility] [address] [facility] [id number], [place] [address] May, [facility] [place] [facility] [address] [id number], [place] [address] May, [facility] [place] [facility] [address] [id number] [place] [address] May, [facility] [place] [facility] [address] [id number] [place] [address] May, [facility] [place] [facility] [address] [facility] [id number], [place] [address] May, [facility] [place] [facility] [address] [id number], [place] [address] 16 May, 2013 [facility] [address] [id number] [place] [address] May, [facility] [place] [facility] [address] [id number] [place] [address] May, [facility] [place] [facility] [address] [id number] [place] [address] May, [facility] [place] [facility] [address] [id number] [place] [address] May, [facility] [place] [facility] [address] [id number] [place] [address] May, [facility] [place] [facility] [address] [id number] [place] [address] May, [facility] [place] [facility] [address] [id number] [place] [address] May, [facility] [place] [facility] [address] [id number] [place] [address] May, [facility] [place] [facility] [address] [id number] [place] [address] May, [facility] [place] [facility] [address] [id number] [place] [address] Apr, [facility] [place] [facility] [address] [id number] [place] [address] Apr, [facility] [place] [facility] [address] [id number] [place] [address] 14 Dec, 2012 [facility] [place] [facility] [address] [id number] [place] [address] 08 Nov, 2012 [facility] [place] [facility] [address] [id number] [place] [address] May, [facility] [place] [facility] [address] [id number] [place] [address] Apr, [facility] [place] [facility] [address] [facility] [id number] [place] [address] Apr, [facility] [address] [facility] [id number] [place] [address] Apr, [facility] [address] [facility] [id number] [place] [address] Apr, IMMUNIZATIONS No Known Immunizations SOCIAL HISTORY Never Assessed REASON FOR VISIT Cough Pt has had a cough for about a week, after grandson came to live with them and he had a cough [place] PLAN OF CARE Activity Details Follow Up prn Reason: VITAL SIGNS Height 64 in 2017-09-04 Weight 198.0 lbs 2017-09-04 Temperature 97.9 degrees Fahrenheit 2017-09-04 Heart Rate 88 bpm 2017-09-04 Respiratory Rate 18 2017-09-04 Oximetry 96 % 2017-09-04 BMI 33.98 kg/m2 2017-09-04 Blood pressure systolic 118 mmHg 2017-09-04 Blood pressure diastolic 76 mmHg 2017-09-04 MEDICATIONS Medication Instructions Dosage Frequency Start Date End Date Duration Status Gabapentin 300 MG Orally Three times a day 3 capsules 8h Mar, 30 days Active Levemir Flexpen 100 unit/mL (3 mL) subcutaneous 2 times a day 60 units 12h Aug, Active NovoLog Flexpen 100 UNIT/ML Subcutaneous 3 times a day 25 units 8h 07 Dec, 2014 Active Pen [place] 32G X 4 MM as directed Dec, 90 days Active Calamine - Not-Taking Proventil HFA 108 (90 Base) MCG/ACT Inhalation every 4 hrs 2 puffs as needed 4h Dec, Active Famotidine 20 mg Orally twice a day 1 tablet at bedtime 12h 90 days Active Zyrtec Allergy 10 MG Orally Once a day 1 tablet 24h Aug, September, 30 day(s) Active PredniSONE 20 MG Orally Once a day 2 tablet 24h Aug, Aug, 5 days Active Test strips Test Strips Contour teststrips directed 12h Dec, Active Carafate 1 GM Orally Twice a day 1 tablet at bedtime on an empty stomach before meals 12h 90 days Not-Taking Atorvastatin Calcium 40 mg Orally Once a day 1 tablet 24h Jun, 90 days Not-Taking RESULTS No Results PROCEDURES No Known procedures INSTRUCTIONS MEDICATIONS ADMINISTERED No Known Medications MEDICAL (GENERAL) HISTORY Type Description Date Medical History asthma Medical History type II diabetes Medical History sleep apnea Medical History narcolepsy Surgical History hysterectomy, partial Hospitalization History Chest pain-[facility] 02/27/17
--- OUTSIDE RECORDS SUMMARY | 2018-03-08 22:55 | XMS REPORT ---
Author Author TAWANA QUINTEN [facility] Address [address] [place] [address] Care Team Providers Care Sanforizer Name Role Phone TAWANARUBINA ZHUHANY Unavailable PROBLEMS Type Condition ICD9-CM Code EYU44-SL Code Onset Dates Condition Status SNOMED Code Problem Right carpal tunnel syndrome G56.01 Active 15422310 Problem Gastroesophageal reflux disease with esophagitis K21.0 Active 921107515 Problem Falls frequently R29.6 Active 450372774 Problem Porokeratosis Q82.8 Active 626339504 Problem Posterior subcapsular age-related cataract of both eyes H25.043 Active 8654499 Problem Non-alcoholic fatty liver disease K76.0 Active 483754303 Problem Delayed gastric emptying K30 Active 270653547 Problem Pain in left foot M79.672 Active 7384266 Problem Other chronic pain G89.29 Active 81876588 Problem Tarsal tunnel syndrome of left side G57.52 Active 57784294 Problem Obesity E66.9 Active 460983231 Problem Hypermetropia, bilateral H52.03 Active 60644027 Problem Type 2 diabetes mellitus with hyperglycemia E11.65 Active 71539204 Problem Nuclear cataract of both eyes H25.13 Active 34645094 Problem Presbyopia OU H52.4 Active 43271233 Problem Obstructive sleep apnea G47.33 Active 61679615 Problem Shortness of breath R06.02 Active 504108444 Problem Type 2 diabetes mellitus with diabetic polyneuropathy E11.42 Active 70647628 Problem Lung nodule R91.1 Active 094060378 Problem Mixed hyperlipidemia E78.2 Active 471614794 Problem Primary narcolepsy with cataplexy G47.411 Active 897863665 ALLERGIES No Information ENCOUNTERS Encounter Location Date Diagnosis [facility] [address] [facility] [id number] [address] Dec, Well woman exam Z01.419 ; Screening for breast cancer Z12.31 and Screening for colon cancer Z12.11 [facility] [id number] [place] [address] 37331- 8329 Dec, [facility] [id number] [place] [address] 07489- 4910 Dec, Type 2 diabetes mellitus with hyperglycemia E11.65 ; Mixed hyperlipidemia E78.2 and Gastroesophageal reflux disease with esophagitis K21.0 [facility] [id number] [place] [address] 60637- 0833 Nov, Type 2 diabetes mellitus with hyperglycemia E11.65 and Mixed hyperlipidemia E78.2 [place] [id number] [place] [address] 91505- 2879 Nov, [facility] [id number] [place] [address] 09128- 3528 Oct, [facility] [id number] [place] [address] 23052- 7399 Oct, [facility] [id number] [place] [address] 67945- 5849 September, [facility] [id number] [place] [address] 99750- 8972 September, Type 2 diabetes mellitus with hyperglycemia E11.65 [facility] [id number] [place] [address] 40427- 2714 September, Type 2 diabetes mellitus with hyperglycemia E11.65 [facility] [id number] [place] [address] 91257- 7378 September, Porokeratosis Q82.8 and Type 2 diabetes mellitus with diabetic polyneuropathy E11.42 [facility] [id number] [place] [address] 04978 -8585 Aug, Seasonal allergic rhinitis, unspecified trigger J30.2 [facility] [id number] [place] [address] 37338- 9179 Aug, [facility] [address] [place] [address] 4489 Aug, [facility] [address] [id number] Aug, Dental examination V72.2 and Dental examination Z01.20 [place] [id number] [place] [address] 07782- 2150 Aug, Dental examination Z01.20 and Dental caries K02.9 [place] [address] 63452- 6160 Aug, Obstructive sleep apnea G47.33 ; Obesity E66.9 ; Type 2 diabetes mellitus with hyperglycemia E11.65 ; Palpitations R00.2 and Corns and callosities L84 [place] [address] 56624- 2895 Jul, [address] 39824- 7848 Jul, [place] [address] 80685- 6882 Jun, Type 2 diabetes mellitus with hyperglycemia E11.65 ; Colon cancer screening Z12.11 ; Mixed hyperlipidemia E78.2 ; Non-alcoholic fatty liver disease K76.0 ; Gastroesophageal reflux disease with esophagitis K21.0 and Pain of upper abdomen R10.10 [place] [id number] [place] [address] 61644- 2951 Jun, Falls frequently R29.6 [facility] [id number] [place] [address] 01992 -9573 May, Infection of nose J34.[address] 83736- 7703 May, Bilateral low back pain without sciatica M54.5 [place] [id number] [place] [address] 53297- 2767 May, Type 2 diabetes mellitus with diabetic polyneuropathy E11.42 ; Obstructive sleep apnea G47.33 and Type 2 diabetes mellitus with hyperglycemia E11.65 [place] [id number] [place] [address] 61631- 3448 Apr, Bilateral low back pain without sciatica M54.5 [facility] [id number] [place] [address] 55524- 7105 Apr, Mixed hyperlipidemia E78.2 and Type 2 diabetes mellitus with hyperglycemia E11.65 [place] [id number] [place] [address] 06938- 9925 Apr, Type 2 diabetes mellitus with diabetic polyneuropathy E11.42 [place] [id number] [place] [address] 75262- 1616 Apr, [place] [address] 43219- 0180 Apr, Skin lesion of left arm L98.9 and Skin lesion of left leg L98.9 [place] [id number] [place] [address] 43040- 4304 Mar, Bilateral low back pain without sciatica M54.5 [place] [id number] [place] [address] 94994- 3470 Mar, Plantar fasciitis of left foot M72.2 ; Bursitis of left foot M71.572 and Type 2 diabetes mellitus with diabetic polyneuropathy E11.42 [place] [id number] [place] [address] 52948- 5437 Feb, Non-alcoholic fatty liver disease K76.0 ; Keratoacanthoma L85.8 ; Seborrheic keratosis L82.1 ; Type 2 diabetes mellitus with hyperglycemia E11.65 and Nuclear cataract of both eyes H25.13 [place] [id number] [place] [address] [id number] Feb, [place] [id number] [place] [address] 86091- 6088 Feb, [place] [id number] [place] [address] 54376- 2993 Feb, [facility] [address] 06561- 2226 Feb, Type 2 diabetes mellitus with hyperglycemia E11.65 ; Back muscle spasm M62.830 and Encounter for immunization Z23 [facility] [address] 90094- 6374 Jan, Plantar fasciitis of left foot M72.2 [place] [address] 65442- 8738 Dec, [place] [address] 32390- 9367 Dec, Plantar fasciitis of left foot M72.2 and Tarsal tunnel syndrome of left side G57.52 [place] [address] 64818- 0943 Dec, [facility] [address] 27498 -5062 Nov, Mary Jane rash of groin B37.89 and Rash and nonspecific skin eruption R21 [place] [address] 98312- 7556 Nov, [place] [address] 35651- 3940 Oct, Type 2 diabetes mellitus with hyperglycemia E11.65 and Mixed hyperlipidemia E78.2 [place] [address] 29445- 3427 Oct, [facility] [address] 94543- 2618 Oct, Chest pain, unspecified R07.9 ; Palpitations R00.2 ; Syncope R55 and Mixed hyperlipidemia E78.2 [facility] [id number] [place] [address] 53954- 5558 Oct, Plantar fasciitis, bilateral M72.2 and Type 1 diabetes mellitus with diabetic neuropathy E10.40 [facility] [address] [address]- 9469 Oct, [facility] [id number] [place] [address] 02766- 7133 September, Type 2 diabetes mellitus with hyperglycemia E11.65 [facility] [id number] [place] [address] 42925- 4520 September, Type 2 diabetes mellitus with hyperglycemia E11.65 ; Type 2 diabetes mellitus with diabetic polyneuropathy E11.42 ; Gastroesophageal reflux disease with esophagitis K21.0 and Headache, unspecified headache type R51 [facility] [id number] [place] [address] 55254- 9417 September, [facility] [id number] [place] [address] 44315- 9821 September, [facility] [id number] [place] [address] 12961- 7139 September, [facility] [id number] [place] [address] 20565- 7228 September, Other chest pain R07.89 ; Heart palpitations R00.2 ; Mixed hyperlipidemia E78.2 and Obesity E66.9 [facility] [address] [address]- 0467 Aug, [facility] [id number] [place] [address] 83479- 8951 Aug, Type 2 diabetes mellitus with diabetic polyneuropathy E11.42 and Type 2 diabetes mellitus with hyperglycemia E11.65 [facility] [address] [address]- 1170 Aug, [facility] [id number] [place] [address] 06724- 0018 Aug, [facility] [address], [place] [address]- 7983 Aug, [facility] [id number] [address]- 7658 Aug, Type 2 diabetes mellitus with hyperglycemia E11.65 [facility] [id number] [place] [address] 01859- 1544 Aug, [facility] [id number] [place] [address] 59783- 4462 Jul, Type 2 diabetes mellitus with diabetic polyneuropathy E11.42 [facility] [id number] [place] [address] 32457- 8938 Jul, Type 2 diabetes mellitus with hyperglycemia E11.65 [facility] [id number] [place] [address] 80557- 8159 Jul, [facility] [id number] [place] [address] 77263- 4958 Jul, [facility] [id number] [place] [address] 31002- 3319 Jul, [facility] [id number] [place] [address] 82107- 5709 Jul, Type 2 diabetes mellitus with diabetic polyneuropathy E11.42 and Type 2 diabetes mellitus with hyperglycemia E11.65 [facility] [id number] [place] [address] 15649- 3243 Jun, Obstructive sleep apnea G47.33 [facility] [id number] [place] [address] 78694- 4947 Jun, Type 2 diabetes mellitus with diabetic polyneuropathy E11.42 ; Primary narcolepsy with cataplexy G47.411 ; Abdominal bloating R14.0 ; Other chest pain R07.89 and Vision problems H54.7 [facility] [id number] [place] [address] 87907- 8993 Jun, [facility] [id number] [place] [address] 43162- 5898 May, [facility] [id number] [place] [address] 05763- 4884 Apr, [facility] [address] 47143- 6348 Apr, Plantar fasciitis of left foot M72.2 [facility] [id number] [place] [address] 99701- 4596 Mar, [facility] [address] 54147- 9427 Mar, Plantar fasciitis of left foot M72.2 and Type 2 diabetes mellitus with diabetic polyneuropathy E11.42 [place] [address] 03583- 4987 Feb, Type 2 diabetes mellitus with hyperglycemia E11.65 ; Mixed hyperlipidemia E78.2 and Encounter for immunization Z23 [place] [id number] [place] [address] 88112- 5284 Feb, [place] [address] 42879- 0307 Feb, [facility] [address] 57312- 2320 Feb, Type 2 diabetes mellitus with hyperglycemia E11.65 [place] [id number] [place] [address] 00849- 4047 Feb, Type 2 diabetes mellitus with hyperglycemia E11.65 [place] [id number] [place] [address] 22077- 6836 Jan, [place] [id number] [place] [address] 99432- 9011 Dec, Pain in left foot M79.672 ; Other chronic pain G89.29 ; Type 2 diabetes mellitus with hyperglycemia E11.65 ; Obstructive sleep apnea G47.33 ; Falls frequently R29.6 ; Mixed hyperlipidemia E78.2 and Gastroesophageal reflux disease with esophagitis K21.0 [place] [address] 46800- 6366 Nov, [facility] [address], [place] [address]- 7246 Oct, Type 2 diabetes mellitus with diabetic polyneuropathy E11.42 [facility] [address], [place] [address]- 3594 Oct, [facility] [address], [place] [address]- 2611 Oct, [facility] [address], [place] [address]- 8417 September, [facility] [address], [place] [address]- 6325 September, [facility] [address], [place] [address]- 7970 September, [facility] [address], [place] [address]- 0530 September, [facility] [address], [place] [address]- 5368 September, [facility] [address], [place] [address]- 6387 Aug, Type 2 diabetes mellitus with hyperglycemia E11.65 ; Mixed hyperlipidemia E78.2 and Right carpal tunnel syndrome G56.01 [facility] [address], [place] [address]- 4365 Aug, [facility] [address], [place] [address]- 6804 Jul, [facility] [id number] [address]- 4036 Jun, [facility] [address] 5583 Jun, [facility] [id number] [address]- 2176 May, [facility] [id number] [place] [address] 38925- 4188 May, [facility] [id number] [place] [address] 03739- 9393 May, Type 2 diabetes mellitus with hyperglycemia E11.65 and Falls E888.9 [facility] [id number] [place] [address] 42768- 0479 Apr, Type 2 diabetes mellitus with hyperglycemia E11.65 [facility] [address] 58487- 4014 Apr, [facility] [id number] [place] [address] 97181- 8367 Apr, Type 2 diabetes mellitus with hyperglycemia E11.65 [facility] [id number] [place] [address] 72203- 3079 Apr, [facility] [address] 49457- 8066 Mar, Type 2 diabetes mellitus with diabetic polyneuropathy E11.42 ; Bilateral low back pain without sciatica M54.5 and Dry nose J34.89 [facility] [id number] [place] [address] 74038- 9011 Mar, Palpitations R00.2 ; Syncope R55 ; DM (diabetes mellitus) E11.9 and Obesity E66.9 [facility] [id number] [place] [address] 00290- 6627 Mar, [facility] [id number] [place] [address] 60130- 0773 Mar, [facility] [id number] [place] [address] 60209- 6083 Mar, [facility] [id number] [place] [address] 39455- 7327 Feb, [facility] [id number] [place] [address] 38155- 5332 14 Jan, 2015 [facility] [id number] [place] [address] 83275- 6214 Jan, [facility] [id number] [place] [address] 67083- 7707 Jan, Falls E888.9 and Sinusitis 473.9 [facility] [id number] [place] [address] 31095- 3371 Dec, [facility] [id number] [place] [address] 18790- 7885 Dec, [facility] [id number] [place] [address] 19798- 2052 Dec, [facility] [id number] [place] [address] 75734- 2696 Dec, [facility] [id number] [place] [address] 00329- 2346 Dec, Diabetes mellitus without mention of complication, type II or unspecified type, not stated as uncontrolled 250.00 and Shortness of breath 786.05 [facility] [id number] [place] [address] 86404- 3946 Dec, [facility] [id number] [place] [address] 61957- 9967 Nov, [facility] [id number] [place] [address] 14836- 8567 Nov, [facility] [id number] [place] [address] 82527- 2557 Oct, Restrictive lung disease 518.89 [facility] [id number] [place] [address] 22765- 1420 Oct, [facility] [id number] [place] [address] 93666- 3307 Oct, Shortness of breath 786.05 [facility] [id number] [place] [address] 57491- 3630 September, Other nonspecific abnormal finding of lung field 793.19 ; Diabetes mellitus without mention of complication, type II or unspecified type, not stated as uncontrolled 250.00 ; Hyperlipidemia LDL goal < 100 272.4 ; Narcolepsy, with cataplexy 347.01 ; Shortness of breath 786.05 and Chest pain 786.50 [facility] [id number] [place] [address] 84415- 8059 14 Aug, 2014 [facility] [address] 61823- 4991 Aug, [facility] [id number] [place] [address] 653976- 9688 Jun, [facility] [id number] [place] [address] 15913- 7310 Jun, [facility] [id number] [place] [address] 69405- 5370 Jun, [facility] [id number] [place] [address] 05344- 0294 Jun, [facility] [id number] [place] [address] 95337- 8307 Jun, [facility] [id number] [place] [address] 27861- 1568 Jun, [facility] [id number] [place] [address] 69139- 5015 Jun, [facility] [id number] [place] [address] 07704- 3830 Jun, [facility] [id number] [place] [address] 147849- 5706 May, [facility] [id number] [place] [address] 686980- 5973 May, [facility] [id number] [place] [address] 320146- 5888 Apr, [facility] [id number] [place] [address]- 5123 Apr, [facility] [place] [facility] [address] [id number] [place] [address]- 9212 Mar, [facility] [place] [facility] [address] [id number] [place] [address]- 1818 Mar, [facility] [place] [facility] [address] [id number] [place] [address]- 0209 Mar, [facility] [place] [facility] [address] [id number] [place] [address]- 3378 Mar, [facility] [place] [facility] [address] [id number] [place] [address]- 7623 Nov, [facility] [place] [facility] [address] [id number] [place] [address]- 2950 Nov, [facility] [place] [facility] [address] [id number] [place] [address]- 2204 Nov, [facility] [place] [facility] [address] [id number] [place] [address]- 2046 Nov, [facility] [place] [facility] [address] [id number] [place] [address]- 2766 Oct, [facility] [place] [facility] [address] [id number] [place] [address]- 1022 Oct, [facility] [place] [facility] [address] [id number] [place] [address]- 6861 Oct, [facility] [place] [facility] [address] [id number] [place] [address]- 5750 Oct, [facility] [place] [facility] [address] [id number] [place] [address]- 6702 Oct, [facility] [place] [facility] [address] [id number] [place] [address]- 6629 Oct, [facility] [place] [facility] [address] [id number] [place] [address]- 8583 Oct, [facility] [place] [facility] [address] [id number] [place] [address]- 5605 16 Oct, 2013 [facility] [place] [facility] [address] [id number] [place] [address]- 8193 Oct, [facility] [place] [facility] [address] [id number] [place] [address]- 0787 Oct, [facility] [place] [facility] [address] [id number] [place] [address]- 2422 September, [facility] [place] [facility] [address] [id number] [place] [address]- 8592 September, [facility] [place] [facility] [address] [id number] [place] [address]- 5286 Aug, [facility] [place] [facility] [address] [id number] [place] [address]- [address] Aug, [facility] [place] [facility] [address] [id number] [place] [address] Aug, [facility] [place] [facility] [address] [id number] [place] [address] Aug, [facility] [place] [facility] [address] [id number] [place] [address] Aug, [facility] [place] [facility] [address] [id number] [place] [address] Aug, [facility] [place] [facility] [address] [id number] [place] [address] Jul, [facility] [place] [facility] [address] [id number] [place] [address] Jul, [facility] [place] [facility] [address] [id number] [place] [address] Jul, [facility] [place] [facility] [address] [id number] [place] [address] Jul, [facility] [place] [facility] [address] [id number], [place] [address] Jul, [facility] [place] [facility] [address] [id number] [place] [address] Jul, [facility] [place] [facility] [address] [id number] [place] [address] Jul, [facility] [place] [facility] [address] [id number] [place] [address] Jul, [facility] [place] [facility] [address] [id number] [place] [address] Jul, [facility] [place] [facility] [address] [id number] [place] [address] Jul, [facility] [place] [facility] [address] [id number] [place] [address] Jul, [facility] [place] [facility] [address] [id number] [place] [address] Jul, [facility] [place] [facility] [address] [id number] [place] [address] Jul, [facility] [place] [facility] [address] [id number] [place] [address] Jul, [facility] [place] [facility] [address] [id number] [place] [address] Jul, [facility] [place] [facility] [address] [id number] [place] [address] Jul, [facility] [place] [facility] [address] [id number] [place] [address] Jun, [facility] [place] [facility] [address] [id number] [place] [address] Jun, [facility] [place] [facility] [address] [id number] [place] [address] Jun, [facility] [place] [facility] [address] [id number] [place] [address] Jun, [facility] [place] [facility] [address] [id number] [place] [address] Jun, [facility] [place] [facility] [address] [id number] [place] [address] 24 Jun, 2013 [facility] [place] [facility] [address] [id number] [place] [address] Jun, [facility] [place] [facility] [address] [id number] [place] [address] Jun, [facility] [place] [facility] [address] [id number] [place] [address] Jun, [facility] [place] [facility] [address] [id number] [place] [address] Jun, [facility] [place] [facility] [address] [id number] [place] [address] 18 Jun, 2013 [facility] [place] [facility] [address] [id number] [place] [address] 18 Jun, 2013 [facility] [place] [facility] [address] [id number] [place] [address] 14 Jun, 2013 [facility] [place] [facility] [address] [id number] [place] [address] 13 Jun, 2013 [facility] [place] [facility] [address] [id number] [place] [address] 13 Jun, 2013 [facility] [place] [facility] [address] [id number] [place] [address] 13 Jun, 2013 [facility] [place] [facility] [address] [id number] [place] [address] 13 Jun, 2013 [facility] [place] [facility] [address] [id number] [place] [address]- [address] 12 Jun, 2013 [facility] [place] [facility] [address] [id number] [place] [address]- [address] 12 Jun, 2013 [facility] [place] [facility] [address] [id number] [place] [address] Jun, 2013 [facility] [place] [facility] [address] [id number] [place] [address] Jun, 2013 [facility] [place] [facility] [address] [id number] [place] [address] Jun, 2013 [facility] [place] [facility] [address] [id number] [place] [address] Jun, 2013 [facility] [place] [facility] [address] [id number] [place] [address]- [address] Jun, 2013 [facility] [place] [facility] [address] [id number] [place] [address] Jun, 2013 [facility] [place] [facility] [address] [facility] [id number] [place] [address] Jun, 2013 [facility] [place] [facility] [address] [id number] [place] [address] Jun, 2013 [facility] [place] [facility] [address] [id number] [place] [address] Jun, 2013 [facility] [place] [facility] [address] [facility] [id number] [place] [address] Jun, [facility] [place] [facility] [address] [facility] [id number] [place] [address]- [address] Jun, [facility] [place] [facility] [address] [id number], [place] [address] May, [facility] [place] [facility] [address] [id number] [place] [address] May, [facility] [place] [facility] [address] [id number] [place] [address] 79[address] May, [facility] [place] [facility] [address] [facility] [id number], [place] [address] May, [facility] [place] [facility] [address] [id number], [place] [address] May, [facility] [address] [id number] [place] [address] May, [facility] [place] [facility] [address] [id number] [place] [address] 35[address] May, [facility] [place] [facility] [address] [id number] [place] [address] May, [facility] [place] [facility] [address] [id number] [place] [address] May, [facility] [place] [facility] [address] [id number] [place] [address] May, [facility] [place] [facility] [address] [id number] [place] [address] May, [facility] [place] [facility] [address] [id number] [place] [address] May, [facility] [place] [facility] [address] [id number] [place] [address] May, [facility] [place] [facility] [address] [id number] [place] [address] 7914 May, [facility] [place] [facility] [address] [id number] [place] [address] May, [facility] [place] [facility] [address] [id number] [place] [address] Apr, [facility] [place] [facility] [address] [id number] [place] [address] Apr, [facility] [place] [facility] [address] [id number] [place] [address] Dec, [facility] [place] [facility] [address] [id number] [place] [address] Nov, [facility] [place] [facility] [address] [id number] [place] [address] May, [facility] [place] [facility] [address] [facility] [id number] [place] [address] Apr, [facility] [address] [facility] [id number], [place] [address] Apr, [facility] [address] [facility] [id number][place] [id number] [address] Apr, [facility] [address] [facility] [id number], [place] [address] Apr, IMMUNIZATIONS No Known Immunizations SOCIAL HISTORY Never Assessed REASON FOR VISIT Testing Supplies PLAN OF CARE VITAL SIGNS MEDICATIONS Medication [...] Surgical History hysterectomy, partial Hospitalization History Chest pain-[facility] 02/27/17
--- OUTSIDE RECORDS SUMMARY | 2018-03-08 22:56 | XMS REPORT ---
Author Author TAWANA QUINTEN [facility] Address [address] [place] [address] Care Team Providers Care Mink Farmer Name Role Phone QUINTEN GILLIAM Unavailable PROBLEMS Type Condition ICD9-CM Code GMT36-HI Code Onset Dates Condition Status SNOMED Code Problem Right carpal tunnel syndrome G56.01 Active 83658494 Problem Gastroesophageal reflux disease with esophagitis K21.0 Active 822586839 Problem Falls frequently R29.6 Active 591488563 Problem Porokeratosis Q82.8 Active 054551476 Problem Posterior subcapsular age-related cataract of both eyes H25.043 Active 7013696 Problem Non-alcoholic fatty liver disease K76.0 Active 970637237 Problem Delayed gastric emptying K30 Active 842685603 Problem Pain in left foot M79.672 Active 9980661 Problem Other chronic pain G89.29 Active 19917268 Problem Tarsal tunnel syndrome of left side G57.52 Active 50323384 Problem Obesity E66.9 Active 637179236 Problem Hypermetropia, bilateral H52.03 Active 96348608 Problem Type 2 diabetes mellitus with hyperglycemia E11.65 Active 96514503 Problem Nuclear cataract of both eyes H25.13 Active 41191992 Problem Presbyopia OU H52.4 Active 97983889 Problem Obstructive sleep apnea G47.33 Active 55533065 Problem Shortness of breath R06.02 Active 768058519 Problem Type 2 diabetes mellitus with diabetic polyneuropathy E11.42 Active 39829490 Problem Lung nodule R91.1 Active 592827337 Problem Mixed hyperlipidemia E78.2 Active 824609888 Problem Primary narcolepsy with cataplexy G47.411 Active 545850269 ALLERGIES No Information ENCOUNTERS Encounter Location Date Diagnosis [facility] [address] [facility] [id number] [address] Dec, [facility] [id number] [place] [address] 75062- 8849 Dec, [facility] [id number] [place] [address] 76018- 9487 Nov, Type 2 diabetes mellitus with hyperglycemia E11.65 and Mixed hyperlipidemia E78.2 [facility] [address] [place] [id number] [place] [address] 71236- 8351 Nov, [facility] [address] [place] [id number] [place] [address] 14719- 5104 Oct, [facility] [address] [place] [id number] [place] [address] 41367- 0247 Oct, [facility] [address] [place] [id number] [place] [address] 70893- 6357 September, [facility] [address] [id number] [place] [address] 20987- 7254 September, Type 2 diabetes mellitus with hyperglycemia E11.65 [facility] [address] [place] [id number] [place] [address] 96331- 4206 September, Type 2 diabetes mellitus with hyperglycemia E11.65 [facility] [address] [place] [id number] [place] [address] 88467- 3247 September, Porokeratosis Q82.8 and Type 2 diabetes mellitus with diabetic polyneuropathy E11.42 [facility] [id number] [place] [address] 28927 -5888 Aug, Seasonal allergic rhinitis, unspecified trigger J30.2 [facility] [id number] [place] [address] 74778- 8318 Aug, [facility] [address] [place] [id number] [place] [address] 53008- 5001 Aug, [facility] [address] [place] [address] [id number] Aug, Dental examination V72.2 and Dental examination Z01.20 [facility] [id number] [place] [address] 73138- 7526 Aug, Dental examination Z01.20 and Dental caries K02.[address] 30499- 9262 Aug, Obstructive sleep apnea G47.33 ; Obesity E66.9 ; Type 2 diabetes mellitus with hyperglycemia E11.65 ; Palpitations R00.2 and Corns and callosities L84 [address] 59331- 8791 Jul, [place] [address] 76745- 0304 Jul, [address] 96987- 0977 Jun, Type 2 diabetes mellitus with hyperglycemia E11.65 ; Colon cancer screening Z12.11 ; Mixed hyperlipidemia E78.2 ; Non-alcoholic fatty liver disease K76.0 ; Gastroesophageal reflux disease with esophagitis K21.0 and Pain of upper abdomen R10.[address] 11170- 4518 09 Jun, 2017 Falls frequently R29.6 [facility] [address] [address] -7919 May, Infection of nose J34.[address] 14846- 5130 May, Bilateral low back pain without sciatica M54.[address] 02321- 0008 May, Type 2 diabetes mellitus with diabetic polyneuropathy E11.42 ; Obstructive sleep apnea G47.33 and Type 2 diabetes mellitus with hyperglycemia E11.[address] 39283- 5114 Apr, Bilateral low back pain without sciatica M54.[address] 71145- 1714 Apr, Mixed hyperlipidemia E78.2 and Type 2 diabetes mellitus with hyperglycemia E11.65 [place] [address] [place] [id number] [place] [address] 56986- 7278 Apr, Type 2 diabetes mellitus with diabetic polyneuropathy E11.42 [place] [address] [place] [id number] [place] [address] 64567- 2752 Apr, [place] [address] 62030- 0265 Apr, Skin lesion of left arm L98.9 and Skin lesion of left leg L98.9 [place] [address] 48977- 5501 Mar, Bilateral low back pain without sciatica M54.5 [place] [address] [id number] [place] [address] 59414- 5952 Mar, Plantar fasciitis of left foot M72.2 ; Bursitis of left foot M71.572 and Type 2 diabetes mellitus with diabetic polyneuropathy E11.42 [place] [address] [place] [id number] [place] [address] 49320- 2630 Feb, Non-alcoholic fatty liver disease K76.0 ; Keratoacanthoma L85.8 ; Seborrheic keratosis L82.1 ; Type 2 diabetes mellitus with hyperglycemia E11.65 and Nuclear cataract of both eyes H25.13 [facility] [address] [place] [id number] [place] [address] [id number] Feb, [place] [address] [id number] [place] [address] 86266- 6037 Feb, [place] [address] [id number] [place] [address] 94938- 3408 Feb, [place] [address] [place] [id number] [place] [address] 73290- 7641 Feb, Type 2 diabetes mellitus with hyperglycemia E11.65 ; Back muscle spasm M62.830 and Encounter for immunization Z23 [place] [address] [place] [address]- 3689 Jan, Plantar fasciitis of left foot M72.2 [facility] [address] 48262- 2172 Dec, [facility] [address] [place] [id number] [place] [address] 75570- 0997 Dec, Plantar fasciitis of left foot M72.2 and Tarsal tunnel syndrome of left side G57.52 [facility] [address] [place] [id number] [place] [address] 04961- 2254 Dec, [facility] [address] 33205 -3025 Nov, Mary Jane rash of groin B37.89 and Rash and nonspecific skin eruption R21 [place] [address] [place] [id number] [place] [address] 26607- 0506 Nov, [place] [address] [place] [id number] [place] [address] 59749- 1236 Oct, Type 2 diabetes mellitus with hyperglycemia E11.65 and Mixed hyperlipidemia E78.2 [place] [address] 15326- 1221 Oct, [place] [address] [place] [id number] [place] [address] 37489- 7035 Oct, Chest pain, unspecified R07.9 ; Palpitations R00.2 ; Syncope R55 and Mixed hyperlipidemia E78.2 [place] [address] [place] [id number] [place] [address] 29878- 4809 Oct, Plantar fasciitis, bilateral M72.2 and Type 1 diabetes mellitus with diabetic neuropathy E10.40 [place] [address] [place] [id number] [place] [address] 13973- 8770 Oct, [place] [address] [place] [id number] [place] [address] 84242- 8446 September, Type 2 diabetes mellitus with hyperglycemia E11.65 [place] [address] [id number] [address]- 8292 September, Type 2 diabetes mellitus with hyperglycemia E11.65 ; Type 2 diabetes mellitus with diabetic polyneuropathy E11.42 ; Gastroesophageal reflux disease with esophagitis K21.0 and Headache, unspecified headache type R51 [facility] [address] [place] [id number] [place] [address] 18264- 0718 September, [facility] [address] [id number] [place] [address] 96048- 6151 September, [facility] [address] [place] [id number] [place] [address] 94195- 8014 September, [facility] [address] [place] [id number] [place] [address] 20580- 4002 September, Other chest pain R07.89 ; Heart palpitations R00.2 ; Mixed hyperlipidemia E78.2 and Obesity E66.9 [facility] [address] [place] [id number] [place] [address] 88624- 3002 Aug, [facility] [address] [place] [id number] [place] [address] 12377- 5713 Aug, Type 2 diabetes mellitus with diabetic polyneuropathy E11.42 and Type 2 diabetes mellitus with hyperglycemia E11.65 [facility] [address] [place] [id number] [place] [address] 90294- 1495 Aug, [facility] [address] [place] [id number] [place] [address] 52372- 6532 Aug, [facility] [address] [id number] [place] [address] 18920- 7300 Aug, [facility] [address] [place] [id number] [place] [address] 31744- 5475 Aug, Type 2 diabetes mellitus with hyperglycemia E11.65 [facility] [address] [id number] [place] [address] 14622- 1995 Aug, [facility] [address] [id number] [place] [address] 54583- 1786 Jul, Type 2 diabetes mellitus with diabetic polyneuropathy E11.42 [facility] [id number] [place] [address] 14215- 8751 Jul, Type 2 diabetes mellitus with hyperglycemia E11.65 [facility] [address] [place] [id number] [place] [address] 79908- 7948 Jul, [facility] [address] [place] [id number] [place] [address] 63836- 2526 Jul, [facility] [address] [place] [id number] [place] [address] 27217- 9421 Jul, [facility] [address] [place] [id number] [place] [address] 70384- 4042 Jul, Type 2 diabetes mellitus with diabetic polyneuropathy E11.42 and Type 2 diabetes mellitus with hyperglycemia E11.65 [facility] [address] [place] [id number] [place] [address] 11895- 8422 Jun, Obstructive sleep apnea G47.33 [place] [address] [id number] [place] [address] 20768- 4399 Jun, Type 2 diabetes mellitus with diabetic polyneuropathy E11.42 ; Primary narcolepsy with cataplexy G47.411 ; Abdominal bloating R14.0 ; Other chest pain R07.89 and Vision problems H54.7 [place] [address] [place] [id number] [place] [address] 87039- 0202 Jun, [facility] [address] [id number] [place] [address] 99946- 7571 May, [facility] [address] [place] [id number] [place] [address] 26609- 2722 Apr, [facility] [address] [place] [id number] [place] [address] 25457- 5192 Apr, Plantar fasciitis of left foot M72.2 [facility] [address] [place] [id number] [place] [address] 01243- 9611 Mar, [facility] [address] [place] [address] 71374- 3321 Mar, Plantar fasciitis of left foot M72.2 and Type 2 diabetes mellitus with diabetic polyneuropathy E11.42 [facility] [address] [place] [place] [id number] [place] [address] 26365- 8132 14 Feb, 2016 Type 2 diabetes mellitus with hyperglycemia E11.65 ; Mixed hyperlipidemia E78.2 and Encounter for immunization Z23 [facility] [address] [place] [id number] [place] [address] 65501- 2233 Feb, [facility] [address] [place] [id number] [place] [address] 02816- 9837 Feb, [facility] [address] [place] [id number] [place] [address] 17190- 4833 Feb, Type 2 diabetes mellitus with hyperglycemia E11.65 [place] [address] [place] [id number] [place] [address] 00733- 6576 Feb, Type 2 diabetes mellitus with hyperglycemia E11.65 [facility] [address] [place] [id number] [place] [address] 27031- 1105 Jan, [facility] [address] [place] [id number] [place] [address] 22702- 6198 Dec, Pain in left foot M79.672 ; Other chronic pain G89.29 ; Type 2 diabetes mellitus with hyperglycemia E11.65 ; Obstructive sleep apnea G47.33 ; Falls frequently R29.6 ; Mixed hyperlipidemia E78.2 and Gastroesophageal reflux disease with esophagitis K21.0 [facility] [address] [place] [address] 46267- 7998 Nov, [facility] [address] [place] [id number] [place] [address] 95842- 1621 Oct, Type 2 diabetes mellitus with diabetic polyneuropathy E11.42 [facility] [address] [place] [id number] [place] [address] 04590- 6035 Oct, [facility] [address] [address]- 5648 Oct, [facility] [address] [address]- 7607 September, [facility] [address] [address]- 6976 September, [facility] [id number] [place] [address] 160012- 4652 September, [facility] [address] [address]- 4255 September, [facility] [id number] [place] [address] 355459- 2406 September, [facility] [address] [address]- 6855 Aug, Type 2 diabetes mellitus with hyperglycemia E11.65 ; Mixed hyperlipidemia E78.2 and Right carpal tunnel syndrome G56.01 [facility] [address] [address]- 9127 Aug, [facility] [address] [address]- 2709 Jul, [facility] [address] [address]- 7065 Jun, [facility] [address] [address]- 8603 Jun, [facility] [address] [address]- 0988 May, [facility] [address] [address]- 2424 May, [facility] [address] [address]- 3374 May, Type 2 diabetes mellitus with hyperglycemia E11.65 and Falls E888.9 [facility] [id number] [place] [address] 00981- 0166 Apr, Type 2 diabetes mellitus with hyperglycemia E11.65 [facility] [address] [place] [id number] [place] [address] 11076- 5258 Apr, [facility] [address] [place] [id number] [place] [address] 91744- 2490 Apr, Type 2 diabetes mellitus with hyperglycemia E11.65 [facility] [address] 03776- 1973 Apr, [facility] [address] [place] [id number] [place] [address] 04652- 8473 Mar, Type 2 diabetes mellitus with diabetic polyneuropathy E11.42 ; Bilateral low back pain without sciatica M54.5 and Dry nose J34.89 [facility] [address] [place] [id number] [place] [address] 51215- 3554 Mar, Palpitations R00.2 ; Syncope R55 ; DM (diabetes mellitus) E11.9 and Obesity E66.9 [facility] [address] [place] [id number] [place] [address] 77533- 6801 Mar, [facility] [address] [place] [id number] [place] [address] 62398- 1170 Mar, [facility] [address] [place] [id number] [place] [address] 92001- 8634 Mar, [facility] [address] [place] [id number] [place] [address] 56747- 4744 Feb, [facility] [address] [place] [id number] [place] [address] 42153- 7016 14 Jan, 2015 [facility] [address] [place] [id number] [place] [address] 05402- 8978 Jan, [facility] [address] [place] [id number] [place] [address] 19602- 8552 Jan, Falls E888.9 and Sinusitis 473.9 [facility] [address] [place] [address]- 0409 Dec, [facility] [address] [place] [id number] [place] [address] 90740- 6361 Dec, [facility] [address] [place] [id number] [place] [address] 33544- 7793 Dec, [facility] [address] [place] [id number] [place] [address] 51974- 8566 Dec, [facility] [address] [place] [id number] [place] [address] 20853- 1345 Dec, Diabetes mellitus without mention of complication, type II or unspecified type, not stated as uncontrolled 250.00 and Shortness of breath 786.05 [place] [address] [place] [id number] [place] [address] 32236- 1316 Dec, [facility] [address] [id number] [place] [address] 32713- 3331 Nov, [facility] [address] [place] [id number] [place] [address] 36497- 4471 Nov, [facility] [address] [place] [id number] [place] [address] 04035- 7672 Oct, Restrictive lung disease 518.89 [facility] [address] [place] [id number] [place] [address] 42757- 8853 Oct, [facility] [address] [place] [place] [id number] [place] [address] 80321- 3438 Oct, Shortness of breath 786.05 [facility] [address] [place] [id number] [place] [address] 34274- 3913 September, Other nonspecific abnormal finding of lung field 793.19 ; Diabetes mellitus without mention of complication, type II or unspecified type, not stated as uncontrolled 250.00 ; Hyperlipidemia LDL goal < 100 272.4 ; Narcolepsy, with cataplexy 347.01 ; Shortness of breath 786.05 and Chest pain 786.50 [facility] [address] [place] [id number] [place] [address] 12063- 4986 14 Aug, 2014 [facility] [place] [facility] [address] [id number] [place] [address]- 0225 13 Aug, 2014 [facility] [place] [facility] [address] [id number] [place] [address]- 0160 16 Jun, 2014 [facility] [place] [facility] [address] [facility] [id number] [place] [address]- 9170 16 Jun, 2014 [facility] [place] [facility] [address] [id number] [place] [address]- 7985 05 Jun, 2014 [facility] [place] [facility] [address] [id number] [place] [address]- 1627 Jun, 2014 [facility] [place] [facility] [address] [id number] [place] [address]- 7492 Jun, 2014 [facility] [place] [facility] [address] [facility] [id number] [place] [address]- 4021 Jun, 2014 [facility] [place] [facility] [address] [facility] [id number] [place] [address]- 7024 Jun, 2014 [facility] [place] [facility] [address] [facility] [id number] [place] [address]- 4768 05 Jun, 2014 [facility] [place] [facility] [address] [facility] [id number] [place] [address]- 0858 May, [facility] [place] [facility] [address] [facility] [id number] [place] [address]- 5844 May, [facility] [place] [facility] [address] [facility] [id number] [place] [address]- 1040 Apr, [facility] [place] [facility] [address] [id number] [place] [address]- 3396 Apr, [facility] [place] [facility] [address] [facility] [id number] [place] [address]- 4777 Mar, [facility] [place] [facility] [address] [facility] [id number] [place] [address]- 5384 Mar, [facility] [place] [facility] [address] [id number] [place] [address]- 8690 Mar, [facility] [place] [facility] [address] [id number] [place] [address]- 6034 Mar, [facility] [place] [facility] [address] [id number] [place] [address]- 8559 Nov, [facility] [place] [facility] [address] [id number] [place] [address]- 5782 Nov, [facility] [place] [facility] [address] [id number] [place] [address]- 7251 Nov, [facility] [place] [facility] [address] [id number] [place] [address]- 5804 Nov, [facility] [place] [facility] [address] [id number] [place] [address]- 5719 Oct, [facility] [place] [facility] [address] [id number] [place] [address]- 6763 Oct, [facility] [place] [facility] [address] [id number] [place] [address]- 6172 Oct, [facility] [place] [facility] [address] [id number] [place] [address]- 2857 Oct, [facility] [place] [facility] [address] [id number] [place] [address]- 3464 Oct, [facility] [place] [facility] [address] [id number] [place] [address]- 1266 Oct, [facility] [place] [facility] [address] [id number] [place] [address]- 5851 Oct, [facility] [place] [facility] [address] [id number] [place] [address]- 3621 Oct, [facility] [place] [facility] [address] [id number] [place] [address]- 5031 Oct, [facility] [place] [facility] [address] [id number] [place] [address]- 9536 Oct, [facility] [place] [facility] [address] [id number] [place] [address]- 2014 September, [facility] [place] [facility] [address] [id number] [place] [address]- 5022 September, [facility] [place] [facility] [address] [id number] [place] [address] Aug, [facility] [place] [facility] [address] [id number] [place] [address] Aug, [facility] [place] [facility] [address] [id number] [place] [address] Aug, [facility] [place] [facility] [address] [id number] [place] [address] Aug, [facility] [place] [facility] [address] [id number] [place] [address] Aug, [facility] [place] [facility] [address] [id number] [place] [address] Aug, [facility] [place] [facility] [address] [id number] [place] [address] Jul, [facility] [place] [facility] [address] [id number] [place] [address] Jul, [facility] [place] [facility] [address] [id number] [place] [address] Jul, [facility] [place] [facility] [address] [id number] [place] [address] Jul, [facility] [place] [facility] [address] [id number] [place] [address] Jul, [facility] [place] [facility] [address] [id number] [place] [address] Jul, [facility] [place] [facility] [address] [id number] [place] [address] Jul, [facility] [place] [facility] [address] [id number] [place] [address] Jul, [facility] [place] [facility] [address] [id number] [place] [address] Jul, [facility] [place] [facility] [address] [id number] [place] [address] Jul, [facility] [place] [facility] [address] [id number] [place] [address] Jul, [facility] [place] [facility] [address] [id number] [place] [address] Jul, [facility] [place] [facility] [address] [id number] [place] [address] Jul, [facility] [place] [facility] [address] [facility] [id number] [place] [address] Jul, [facility] [place] [facility] [address] [id number] [place] [address] Jul, [facility] [place] [facility] [address] [id number] [place] [address] Jul, [facility] [place] [facility] [address] [id number] [place] [address] Jun, [facility] [place] [facility] [address] [facility] [id number] [place] [address] Jun, [facility] [place] [facility] [address] [id number] [place] [address] Jun, [facility] [place] [facility] [address] [id number] [place] [address] Jun, [facility] [place] [facility] [address] [id number] [place] [address] Jun, [facility] [place] [facility] [address] [id number] [place] [address] Jun, [facility] [place] [facility] [address] [id number] [place] [address] Jun, [facility] [place] [facility] [address] [id number] [place] [address] Jun, 2013 [facility] [place] [facility] [address] [address] [id number] [place] [address] 20 Jun, 2013 [facility] [place] [facility] [address] [id number] [place] [address] 20 Jun, 2013 [facility] [place] [facility] [address] [id number] [place] [address] 18 Jun, 2013 [facility] [place] [facility] [address] [id number] [place] [address] 18 Jun, 2013 [facility] [place] [facility] [address] [id number] [place] [address] 14 Jun, 2013 [facility] [place] [facility] [address] [facility] [id number] [place] [address] 13 Jun, 2013 [facility] [place] [facility] [address] [id number] [place] [address] 13 Jun, 2013 [facility] [place] [facility] [address] [facility] [id number] [place] [address] 76[address] 13 Jun, 2013 [facility] [place] [facility] [address] [facility] [id number] [place] [address] 13 Jun, 2013 [facility] [place] [facility] [address] [facility] [id number] [place] [address] 2546 12 Jun, 2013 [facility] [place] [facility] [address] [id number] [place] [address] 12 Jun, 2013 [facility] [place] [facility] [address] [id number] [place] [address] 4665 11 Jun, 2013 [facility] [place] [facility] [address] [id number] [place] [address] 2546 11 Jun, 2013 [facility] [place] [facility] [address] [facility] [id number] [place] [address] Jun, [facility] [place] [facility] [address] [id number] [place] [address] Jun, [facility] [place] [facility] [address] [id number] [place] [address] Jun, [facility] [place] [facility] [address] [facility] [id number] [place] [address] Jun, [facility] [place] [facility] [address] [id number] [place] [address] Jun, 2013 [facility] [place] [facility] [address] [id number] [place] [address]64 Jun, [facility] [place] [facility] [address] [id number] [place] [address] Jun, [facility] [place] [facility] [address] [facility] [id number] [place] [address] Jun, [facility] [place] [facility] [address] [id number] [place] [address] Jun, [facility] [place] [facility] [address] [id number] [place] [address] May, [facility] [place] [facility] [address] [facility] [id number] [place] [address]- 2018 May, [facility] [place] [facility] [address] [id number] [place] [address] May, [facility] [place] [facility] [address] [id number] [place] [address] 85[address] May, [facility] [place] [facility] [address] [id number] [place] [address] May, [facility] [place] [facility] [address] [facility] [id number] [place] [address]- 2014 May, [facility] [place] [facility] [address] [facility] [id number] [place] [address] May, [facility] [place] [facility] [address] [id number] [place] [address] 15 May, 2013 [facility] [place] [facility] [address] [id number] [place] [address] May, [facility] [place] [facility] [address] [id number] [place] [address] 53[address] May, [facility] [place] [facility] [address] [id number] [place] [address] 79[address] May, [facility] [place] [facility] [address] [id number] [place] [address]68 May, [facility] [place] [facility] [address] [id number] [place] [address] May, [facility] [place] [facility] [address] [id number] [place] [address] 8061 May, [facility] [place] [facility] [address] [id number] [place] [address]996 May, [facility] [place] [facility] [address] [id number] [place] [address]704 Apr, [facility] [place] [facility] [address] [id number] [place] [address] Apr, [facility] [place] [facility] [address] [id number] [place] [address] Dec, [facility] [place] [facility] [address] [id number] [place] [address] Nov, [facility] [place] [facility] [address] [id number] [place] [address] May, [facility] [place] [facility] [address] [id number] [place] [address] Apr, [facility] [place] [facility] [address] [id number] [place] [address] Apr, [facility] [place] [facility] [address] [id number] [place] [address] Apr, [facility] [address] [facility] [id number] [place] [address] Apr, IMMUNIZATIONS No Known Immunizations SOCIAL HISTORY Never Assessed REASON FOR VISIT Blood Sugar Concerns-Tenzin Bello PLAN OF CARE VITAL SIGNS MEDICATIONS Unknown Medications RESULTS No Results PROCEDURES No Known procedures INSTRUCTIONS MEDICATIONS ADMINISTERED No Known Medications MEDICAL (GENERAL) HISTORY Type Description Date Medical History asthma Medical History type II diabetes Medical History sleep apnea Medical History narcolepsy Surgical History hysterectomy Hospitalization History Chest pain-[facility] 02/27/17
--- OUTSIDE RECORDS SUMMARY | 2018-03-08 22:56 | XMS REPORT ---
Author Author KELLY SNEED [facility] Address Unknown Care Team Providers Care Byproducts Supervisor Name Role Phone KELLY SNEED Unavailable PROBLEMS Type Condition ICD9-CM Code ZWO73-SQ Code Onset Dates Condition Status SNOMED Code Problem Right carpal tunnel syndrome G56.01 Active 94655218 Problem Gastroesophageal reflux disease with esophagitis K21.0 Active 972809702 Problem Falls frequently R29.6 Active 439455903 Problem Porokeratosis Q82.8 Active 001257961 Problem Posterior subcapsular age-related cataract of both eyes H25.043 Active 6921557 Problem Non-alcoholic fatty liver disease K76.0 Active 305031026 Problem Delayed gastric emptying K30 Active 442211213 Problem Pain in left foot M79.672 Active 8450804 Problem Other chronic pain G89.29 Active 28761269 Problem Tarsal tunnel syndrome of left side G57.52 Active 03276462 Problem Obesity E66.9 Active 142135470 Problem Hypermetropia, bilateral H52.03 Active 28228134 Problem Type 2 diabetes mellitus with hyperglycemia E11.65 Active 59497720 Problem Nuclear cataract of both eyes H25.13 Active 07080372 Problem Presbyopia OU H52.4 Active 32595451 Problem Obstructive sleep apnea G47.33 Active 81805271 Problem Shortness of breath R06.02 Active 015283417 Problem Type 2 diabetes mellitus with diabetic polyneuropathy E11.42 Active 01100081 Problem Lung nodule R91.1 Active 605154824 Problem Mixed hyperlipidemia E78.2 Active 828863583 Problem Primary narcolepsy with cataplexy G47.411 Active 028753376 ALLERGIES Substance Reaction Event Type Date Status Penicillin G Sodium Unknown Drug Allergy Aug, Active Erythromycin Unknown Drug Allergy Aug, Active ENCOUNTERS Encounter Location Date Diagnosis [facility] [id number] [id number] Dec, [facility] [id number] [place] [address] 60981- 6128 Nov, [facility] [id number] [place] [address] 39010- 7968 Nov, Type 2 diabetes mellitus with hyperglycemia E11.65 and Mixed hyperlipidemia E78.2 [facility] [id number] [place] [address] 57977- 8575 Nov, [facility] [id number] [place] [address] 22392- 5212 Oct, [facility] [id number] [place] [address] 13721- 5160 Oct, [facility] [id number] [place] [address] 28528- 1927 September, [facility] [id number] [place] [address] 56668- 8909 September, Type 2 diabetes mellitus with hyperglycemia E11.65 [facility] [id number] [place] [address] 25226- 7290 September, Type 2 diabetes mellitus with hyperglycemia E11.65 [facility] [id number] [place] [address] 97546- 0028 September, Porokeratosis Q82.8 and Type 2 diabetes mellitus with diabetic polyneuropathy E11.42 [facility] [id number] [place] [address] 90543 -0216 Aug, Seasonal allergic rhinitis, unspecified trigger J30.2 [facility] [address] [place] [address] 42583- 6827 Aug, [facility] [id number] [place] [address] 52534- 9979 Aug, [facility] [place] [facility] [address] [place] [address] [id number] Aug, Dental examination V72.2 and Dental examination Z01.20 [facility] [address] 21721- 6014 Aug, Dental examination Z01.20 and Dental caries K02.9 [place] [address] 57249- 1280 Aug, Obstructive sleep apnea G47.33 ; Obesity E66.9 ; Type 2 diabetes mellitus with hyperglycemia E11.65 ; Palpitations R00.2 and Corns and callosities L84 [place] [address] 99289- 5122 Jul, [place] [address] 61467- 7933 Jul, [place] [address] 39167- 8548 Jun, Type 2 diabetes mellitus with hyperglycemia E11.65 ; Colon cancer screening Z12.11 ; Mixed hyperlipidemia E78.2 ; Non-alcoholic fatty liver disease K76.0 ; Gastroesophageal reflux disease with esophagitis K21.0 and Pain of upper abdomen R10.10 [place] [address] 69432- 3218 Jun, Falls frequently R29.6 [facility] [address] 58440 -3468 May, Infection of nose J34.89 [place] [address] 71979- 2192 May, Bilateral low back pain without sciatica M54.5 [place] [address] 74125- 2684 May, Type 2 diabetes mellitus with diabetic polyneuropathy E11.42 ; Obstructive sleep apnea G47.33 and Type 2 diabetes mellitus with hyperglycemia E11.65 [place] [address] 16810- 2063 Apr, Bilateral low back pain without sciatica M54.5 [place] [address] 99811- 2258 Apr, Mixed hyperlipidemia E78.2 and Type 2 diabetes mellitus with hyperglycemia E11.65 [place] [id number] [place] [address] 09781- 6909 Apr, Type 2 diabetes mellitus with diabetic polyneuropathy E11.42 [place] [id number] [place] [address] 08734- 6070 Apr, [place] [id number] [place] [address] 37772- 0136 Apr, Skin lesion of left arm L98.9 and Skin lesion of left leg L98.9 [place] [id number] [place] [address] 71052- 6777 Mar, Bilateral low back pain without sciatica M54.5 [place] [id number] [place] [address] 23208- 1175 Mar, Plantar fasciitis of left foot M72.2 ; Bursitis of left foot M71.572 and Type 2 diabetes mellitus with diabetic polyneuropathy E11.42 [place] [id number] [place] [address] 39315- 1804 Feb, Non-alcoholic fatty liver disease K76.0 ; Keratoacanthoma L85.8 ; Seborrheic keratosis L82.1 ; Type 2 diabetes mellitus with hyperglycemia E11.65 and Nuclear cataract of both eyes H25.13 [facility] [place] [id number] [place] [address] [id number] Feb, [place] [address] [place] [address] 83652- 0030 Feb, [place] [id number] [place] [address] 07944- 0647 Feb, [place] [id number] [place] [address] 52294- 6041 Feb, Type 2 diabetes mellitus with hyperglycemia E11.65 ; Back muscle spasm M62.830 and Encounter for immunization Z23 [place] [id number] [place] [address] 22531- 2112 08 Jan, 2017 Plantar fasciitis of left foot M72.2 [facility] [id number] [place] [address] 12775- 2208 Dec, [facility] [id number] [place] [address] 35692- 2827 Dec, Plantar fasciitis of left foot M72.2 and Tarsal tunnel syndrome of left side G57.52 [facility] [id number] [place] [address] 97857- 2298 Dec, [facility] [address] 63896 -4080 Nov, Mary Jane rash of groin B37.89 and Rash and nonspecific skin eruption R21 [place] [id number] [place] [address] 71862- 7052 Nov, [place] [id number] [place] [address] 47353- 5575 Oct, Type 2 diabetes mellitus with hyperglycemia E11.65 and Mixed hyperlipidemia E78.2 [place] [id number] [place] [address] 73964- 1654 Oct, [place] [id number] [place] [address] 95075- 6615 Oct, Chest pain, unspecified R07.9 ; Palpitations R00.2 ; Syncope R55 and Mixed hyperlipidemia E78.2 [place] [id number] [place] [address] 23907- 6671 Oct, Plantar fasciitis, bilateral M72.2 and Type 1 diabetes mellitus with diabetic neuropathy E10.40 [place] [id number] [place] [address] 47805- 6651 Oct, [facility] [id number] [place] [address] 71612- 1881 September, Type 2 diabetes mellitus with hyperglycemia E11.65 [facility] [id number], [place] [address] 0326 September, Type 2 diabetes mellitus with hyperglycemia E11.65 ; Type 2 diabetes mellitus with diabetic polyneuropathy E11.42 ; Gastroesophageal reflux disease with esophagitis K21.0 and Headache, unspecified headache type R51 [facility] [id number] [place] [address] 40297- 8053 September, [facility] [id number] [place] [address] 32525- 7740 September, [facility] [id number] [place] [address] 19441- 1710 September, [facility] [id number] [place] [address] 62628- 0014 September, Other chest pain R07.89 ; Heart palpitations R00.2 ; Mixed hyperlipidemia E78.2 and Obesity E66.9 [facility] [id number] [place] [address] 25987- 3598 Aug, [facility] [id number] [place] [address] 07704- 2461 Aug, Type 2 diabetes mellitus with diabetic polyneuropathy E11.42 and Type 2 diabetes mellitus with hyperglycemia E11.65 [facility] [id number], [place] [address] 5491 Aug, [facility] [id number] [place] [address] 05399- 2286 Aug, [facility] [id number] [place] [address] 84808- 2267 Aug, [facility] [id number] [place] [address] 06891- 2519 Aug, Type 2 diabetes mellitus with hyperglycemia E11.65 [facility] [id number] [place] [address] 84394- 8818 Aug, [facility] [address] [place] [address]- 3169 Jul, Type 2 diabetes mellitus with diabetic polyneuropathy E11.42 [facility] [id number] [place] [address] 65714- 0732 Jul, Type 2 diabetes mellitus with hyperglycemia E11.65 [facility] [id number] [place] [address] 74499- 5294 Jul, [facility] [id number] [place] [address] 90790- 3040 Jul, [facility] [id number] [place] [address] 26499- 7260 Jul, [facility] [id number] [place] [address] 59954- 7973 Jul, Type 2 diabetes mellitus with diabetic polyneuropathy E11.42 and Type 2 diabetes mellitus with hyperglycemia E11.65 [facility] [id number] [place] [address] 59108- 5739 Jun, Obstructive sleep apnea G47.33 [facility] [id number] [place] [address] 62751- 3633 Jun, Type 2 diabetes mellitus with diabetic polyneuropathy E11.42 ; Primary narcolepsy with cataplexy G47.411 ; Abdominal bloating R14.0 ; Other chest pain R07.89 and Vision problems H54.7 [facility] [id number] [place] [address] 51376- 7937 Jun, [facility] [id number] [place] [address] 75424- 1002 May, [facility] [id number] [place] [address] 37580- 0684 Apr, [facility] [id number] [place] [address] 96246- 3784 Apr, Plantar fasciitis of left foot M72.2 [facility] [id number] [place] [address] 76005- 9033 Mar, [place] [id number] [place] [address] 60506- 4880 Mar, Plantar fasciitis of left foot M72.2 and Type 2 diabetes mellitus with diabetic polyneuropathy E11.42 [place] [address] 34830- 3083 14 Feb, 2016 Type 2 diabetes mellitus with hyperglycemia E11.65 ; Mixed hyperlipidemia E78.2 and Encounter for immunization Z23 [facility] [id number] [place] [address] 76350- 3209 Feb, [place] [address] 00460- 4487 Feb, [place] [address] 72337- 8283 Feb, Type 2 diabetes mellitus with hyperglycemia E11.65 [place] [address] 11249- 3349 Feb, Type 2 diabetes mellitus with hyperglycemia E11.65 [place] [id number] [place] [address] 40209- 2656 Jan, [place] [address] 20408- 9711 Dec, Pain in left foot M79.672 ; Other chronic pain G89.29 ; Type 2 diabetes mellitus with hyperglycemia E11.65 ; Obstructive sleep apnea G47.33 ; Falls frequently R29.6 ; Mixed hyperlipidemia E78.2 and Gastroesophageal reflux disease with esophagitis K21.0 [place] [id number] [place] [address] 83912- 6571 Nov, [place] [address] 52761- 2831 Oct, Type 2 diabetes mellitus with diabetic polyneuropathy E11.42 [place] [address] 53485- 3348 Oct, [facility] [address], [place] [address]- 8634 Oct, [facility] [address], [place] [address]- 1490 September, [facility] [address] 0305 September, [facility] [id number] [place] [address] 61665- 1069 September, [facility] [address] 8392 September, [facility] [address] [place] [address] 09685- 6198 September, [facility] [address], [place] [address]- 9233 Aug, Type 2 diabetes mellitus with hyperglycemia E11.65 ; Mixed hyperlipidemia E78.2 and Right carpal tunnel syndrome G56.01 [facility] [address], [place] [address]- 5085 Aug, [facility] [address], [place] [address]- 5198 Jul, [facility] [address], [place] [address]- 6750 Jun, [facility] [address], [place] [address]- 1094 Jun, [facility] [address], [place] [address]- 6543 May, [facility] [address], [place] [address]- 8527 May, [facility] [address], [place] [address]- 6050 May, Type 2 diabetes mellitus with hyperglycemia E11.65 and Falls E888.9 [facility] [id number] [address]- 0989 Apr, Type 2 diabetes mellitus with hyperglycemia E11.65 [facility] [id number] [place] [address] 71288- 8616 Apr, [facility] [id number] [place] [address] 40253- 6709 Apr, Type 2 diabetes mellitus with hyperglycemia E11.65 [facility] [id number] [place] [address] 54353- 3575 Apr, [facility] [id number] [place] [address] 45683- 0141 Mar, Type 2 diabetes mellitus with diabetic polyneuropathy E11.42 ; Bilateral low back pain without sciatica M54.5 and Dry nose J34.89 [facility] [id number] [place] [address] 70712- 0843 Mar, Palpitations R00.2 ; Syncope R55 ; DM (diabetes mellitus) E11.9 and Obesity E66.9 [facility] [id number] [place] [address] 81826- 5696 Mar, [facility] [id number] [place] [address] 31142- 2671 Mar, [facility] [id number], [place] [address]- 5071 Mar, [facility] [id number] [place] [address] 49273- 6746 Feb, [facility] [address] [place] [address] 90747- 1644 14 Jan, 2015 [facility] [id number] [place] [address] 87042- 1899 Jan, [facility] [address] [place] [address] 62632- 9254 Jan, Falls E888.9 and Sinusitis 473.9 [facility] [address] 5840 Dec, [facility] [address] 6102 Dec, [facility] [address], [place] [address]- 1841 Dec, [facility] [address] 0918 Dec, [facility] [address] 7545 Dec, Diabetes mellitus without mention of complication, type II or unspecified type, not stated as uncontrolled 250.00 and Shortness of breath 786.05 [facility] [address]- 9254 Dec, [facility] [address], [place] [address]- 0476 Nov, [facility] [address], [place] [address]- 1813 Nov, [facility] [address]- 5204 Oct, Restrictive lung disease 518.89 [facility] [address], [place] [address]- 2796 Oct, [facility] [address]- 2464 Oct, Shortness of breath 786.05 [facility] [id number], [place] [address]- 4506 September, Other nonspecific abnormal finding of lung field 793.19 ; Diabetes mellitus without mention of complication, type II or unspecified type, not stated as uncontrolled 250.00 ; Hyperlipidemia LDL goal < 100 272.4 ; Narcolepsy, with cataplexy 347.01 ; Shortness of breath 786.05 and Chest pain 786.50 [facility] [address] [place] [address]- 8898 14 Aug, 2014 [facility] [place] [facility] [address] [id number] [place] [address]- 3026 13 Aug, 2014 [facility] [place] [facility] [address] [id number] [place] [address]- 2001 16 Jun, 2014 [facility] [place] [facility] [address] [id number] [place] [address]- 2649 Jun, 2014 [facility] [place] [facility] [address] [id number] [place] [address]- 9922 Jun, 2014 [facility] [place] [facility] [address] [id number] [place] [address]- 8617 Jun, 2014 [facility] [place] [facility] [address] [facility] [id number] [place] [address]- 7243 Jun, 2014 [facility] [place] [facility] [address] [facility] [id number] [place] [address]- 4670 Jun, 2014 [facility] [place] [facility] [address] [facility] [id number] [place] [address]- 1779 Jun, 2014 [facility] [place] [facility] [address] [facility] [id number] [place] [address]- 6515 Jun, 2014 [facility] [place] [facility] [address] [facility] [id number] [place] [address]- 8782 May, [facility] [place] [facility] [address] [facility] [id number] [place] [address]- 4117 May, [facility] [place] [facility] [address] [facility] [id number] [place] [address]- 2445 Apr, [facility] [place] [facility] [address] [id number] [place] [address]- 3480 Apr, [facility] [place] [facility] [address] [facility] [id number] [place] [address]- 2263 Mar, [facility] [place] [facility] [address] [facility] [id number] [place] [address]- 5223 Mar, [facility] [place] [facility] [address] [id number] [place] [address]- 7931 Mar, [facility] [place] [facility] [address] [id number] [place] [address]- 8445 Mar, [facility] [place] [facility] [address] [id number] [place] [address]- 8468 Nov, [facility] [place] [facility] [address] [id number] [place] [address]- 1059 Nov, [facility] [place] [facility] [address] [id number] [place] [address]- 7720 Nov, [facility] [place] [facility] [address] [id number] [place] [address]- 8413 Nov, [facility] [place] [facility] [address] [id number] [place] [address]- 9630 Oct, [facility] [place] [facility] [address] [id number] [place] [address]- 0624 Oct, [facility] [place] [facility] [address] [id number] [place] [address]- 4400 Oct, [facility] [place] [facility] [address] [id number] [place] [address]- 7829 Oct, [facility] [place] [facility] [address] [id number] [place] [address]- 2247 Oct, [facility] [place] [facility] [address] [id number] [place] [address]- 0200 Oct, [facility] [place] [facility] [address] [id number] [place] [address]- 8770 Oct, [facility] [place] [facility] [address] [id number] [place] [address]- 7448 Oct, [facility] [place] [facility] [address] [id number] [place] [address]- 8324 Oct, [facility] [place] [facility] [address] [id number] [place] [address]- 1288 Oct, [facility] [address] [id number] [place] [address]- 5380 September, [facility] [address] [id number] [place] [address]- 7196 September, [facility] [address] [id number] [place] [address]- 1931 Aug, [facility] [place] [facility] [address] [id number] [place] [address]- 9101 Aug, [facility] [address] [id number] [place] [address]- 7290 Aug, [facility] [address] [id number] [place] [address]- 9665 Aug, [facility] [address] [id number] [place] [address]- 4945 Aug, [facility] [address] [id number] [place] [address]- 7040 Aug, [facility] [address] [id number] [place] [address]- 9609 Jul, [facility] [address] [id number] [place] [address] Jul, [facility] [place] [facility] [address] [id number] [place] [address] Jul, [facility] [place] [facility] [address] [id number] [place] [address] Jul, [facility] [place] [facility] [address] [id number] [place] [address] Jul, [facility] [place] [facility] [address] [id number] [place] [address] Jul, [facility] [place] [facility] [address] [id number] [place] [address] Jul, [facility] [place] [facility] [address] [id number] [place] [address] Jul, [facility] [place] [facility] [address] [id number] [place] [address] Jul, [facility] [place] [facility] [address] [id number] [place] [address] Jul, [facility] [place] [facility] [address] [id number] [place] [address] Jul, [facility] [place] [facility] [address] [id number] [place] [address] Jul, [facility] [place] [facility] [address] [id number] [place] [address] Jul, [facility] [place] [facility] [address] [id number] [place] [address] Jul, [facility] [place] [facility] [address] [id number] [place] [address] Jul, [facility] [place] [facility] [address] [id number] [place] [address] Jul, [facility] [place] [facility] [address] [id number] [place] [address] Jun, [facility] [place] [facility] [address] [id number] [place] [address] 2004 Jun, [facility] [place] [facility] [address] [id number] [place] [address] Jun, [facility] [place] [facility] [address] [id number] [place] [address] Jun, [facility] [place] [facility] [address] [id number] [place] [address] Jun, [facility] [place] [facility] [address] [id number] [place] [address] Jun, [facility] [place] [facility] [address] [facility] [id number] [place] [address] 22 Jun, 2013 [facility] [place] [facility] [address] [id number] [place] [address] 22 Jun, 2013 [facility] [place] [facility] [address] [id number] [place] [address] 20 Jun, 2013 [facility] [place] [facility] [address] [facility] [id number] [place] [address] 20 Jun, 2013 [facility] [facility] [address] [id number] [place] [address] 18 Jun, 2013 [facility] [place] [facility] [address] [facility] [id number] [place] [address] 18 Jun, 2013 [facility] [place] [facility] [address] [facility] [id number] [place] [address] 14 Jun, 2013 [facility] [place] [facility] [address] [facility] [id number] [place] [address] 13 Jun, 2013 [facility] [place] [facility] [address] [facility] [id number] [place] [address] 13 Jun, 2013 [facility] [place] [facility] [address] [facility] [id number] [place] [address] 13 Jun, 2013 [facility] [place] [facility] [address] [facility] [id number] [place] [address] 13 Jun, 2013 [facility] [place] [facility] [address] [facility] [id number], [place] [address] 12 Jun, 2013 [facility] [place] [facility] [address] [facility] [id number] [place] [address] 12 Jun, 2013 [facility] [place] [facility] [address] [facility] [id number] [place] [address] 11 Jun, 2013 [facility] [place] [facility] [address] [facility] [id number] [place] [address] 11 Jun, 2013 [facility] [place] [facility] [address] [facility] [id number], [place] [address] Jun, 2013 [facility] [place] [facility] [address] [id number] [place] [address] Jun, 2013 [facility] [place] [facility] [address] [id number] [place] [address] Jun, 2013 [facility] [place] [facility] [address] [id number] [place] [address] Jun, 2013 [facility] [place] [facility] [address] [id number] [place] [address] Jun, 2013 [facility] [place] [facility] [address] [id number] [place] [address]- [address] Jun, 2013 [facility] [place] [facility] [address] [id number] [place] [address] Jun, 2013 [facility] [place] [facility] [address] [facility] [id number] [place] [address] Jun, 2013 [facility] [place] [facility] [address] [id number] [place] [address] Jun, [facility] [place] [facility] [address] [id number] [place] [address] May, [facility] [facility] [address] [id number] [place] [address] May, [facility] [place] [facility] [address] [id number] [place] [address] May, [facility] [place] [facility] [address] [id number] [place] [address] May, [facility] [place] [facility] [address] [id number] [place] [address] May, [facility] [place] [facility] [address] [id number] [place] [address] May, [facility] [place] [facility] [address] [id number] [place] [address] May, [facility] [place] [facility] [address] [id number] [place] [address] May, [facility] [facility] [address] [id number] [place] [address] May, [facility] [place] [facility] [address] [id number] [place] [address] May, [facility] [place] [facility] [address] [id number] [place] [address] May, [facility] [address] [id number] [place] [address] May, [facility] [address] [id number] [place] [address] May, [facility] [address] [id number] [place] [address] May, [facility] [address] [id number] [place] [address] May, [facility] [facility] [address] [id number] [place] [address] Apr, [facility] [address] [id number] [place] [address] Apr, [facility] [address] [id number] [place] [address] Dec, [facility] [place] [facility] [address] [id number] [place] [address] Nov, [facility] [place] [facility] [address] [id number] [place] [address] May, [facility] [address] [id number] [place] [address] Apr, [facility] [place] [address] [id number] [place] [address] Apr, [facility] [facility] [address] [id number] [place] [id number] Apr, [facility] [address] [facility] [id number] [place] [id number] Apr, IMMUNIZATIONS No Known Immunizations SOCIAL HISTORY Never Assessed REASON FOR VISIT Dental Establish Care PLAN OF CARE Activity Details Follow Up prn Reason:possible gum check if patient goes through with full mouth extractions VITAL SIGNS Height 64 in 2017-08-15 Blood pressure systolic 137 mmHg 2017-08-15 Blood pressure diastolic 90 mmHg 2017-08-15 MEDICATIONS Medication Instructions Dosage Frequency Start Date End Date Duration Status Pen Hunter 32G X 4 MM as directed Dec, 90 days Active Proventil HFA 108 (90 Base) MCG/ACT Inhalation every 4 hrs 2 puffs as needed 4h Dec, Active Test strips Test Strips Contour teststrips directed 12h Dec, Active Gabapentin 300 MG Orally Three times a day 3 capsules 8h Mar, 30 days Active Famotidine 20 mg Orally twice a day 1 tablet at bedtime 12h 90 days Active Calamine - Not-Taking Carafate 1 GM Orally Twice a day 1 tablet at bedtime on an empty stomach before meals 12h 90 days Not-Taking Atorvastatin Calcium 40 mg Orally Once a day 1 tablet 24h 20 Jun, 2017 90 days Not-Taking NovoLog Flexpen 100 UNIT/ML Subcutaneous 3 times a day 25 units 8h 07 Dec, 2014 Active Levemir Flexpen 100 unit/mL (3 mL) subcutaneous 2 times a day 60 units 12h 24 Aug, 2013 Active RESULTS No Results PROCEDURES Procedure Date Ordered Result Body Site COMP ORAL EVALUATION - NEW/EST PT August 15, 2017 INTRAORL-PERIAPICAL 1 FILM [id number] August 15, 2017 BITEWINGS - THREE FILMS August 15, 2017 INTRAORL-PERIAPICAL EA ADD FILM August 15, 2017 INTRAORL-PERIAPICAL EA ADD FILM August 15, 2017 PANORAMIC FILM SEE ALSO CODE [id number] August 15, 2017 INTRAORL-PERIAPICAL EA ADD FILM August 15, 2017 INSTRUCTIONS MEDICATIONS ADMINISTERED No Known Medications MEDICAL (GENERAL) HISTORY Type Description Date Medical History asthma Medical History type II diabetes Medical History sleep apnea Medical History narcolepsy Surgical History hysterectomy Hospitalization History Chest pain-[facility] 02/27/17
--- OUTSIDE RECORDS SUMMARY | 2018-03-08 22:57 | XMS REPORT ---
Author Author LEONARDO GALLO [facility] Address [address] [place] [address] Care Team Providers Care Radio Time Salesperson Name Role Phone LEONARDO GALLO Unavailable PROBLEMS Type Condition ICD9-CM Code DEE56-SE Code Onset Dates Condition Status SNOMED Code Problem Right carpal tunnel syndrome G56.01 Active 19633006 Problem Gastroesophageal reflux disease with esophagitis K21.0 Active 198394525 Problem Falls frequently R29.6 Active 017711198 Problem Porokeratosis Q82.8 Active 845480624 Problem Posterior subcapsular age-related cataract of both eyes H25.043 Active 6869412 Problem Non-alcoholic fatty liver disease K76.0 Active 248690672 Problem Delayed gastric emptying K30 Active 128908916 Problem Pain in left foot M79.672 Active 2320411 Problem Other chronic pain G89.29 Active 67731608 Problem Tarsal tunnel syndrome of left side G57.52 Active 51857631 Problem Obesity E66.9 Active 564421809 Problem Hypermetropia, bilateral H52.03 Active 39272719 Problem Type 2 diabetes mellitus with hyperglycemia E11.65 Active 69947010 Problem Nuclear cataract of both eyes H25.13 Active 80976167 Problem Presbyopia OU H52.4 Active 16317424 Problem Obstructive sleep apnea G47.33 Active 16832888 Problem Shortness of breath R06.02 Active 852035546 Problem Type 2 diabetes mellitus with diabetic polyneuropathy E11.42 Active 97086593 Problem Lung nodule R91.1 Active 184510485 Problem Mixed hyperlipidemia E78.2 Active 471875977 Problem Primary narcolepsy with cataplexy G47.411 Active 638931678 ALLERGIES No Information ENCOUNTERS Encounter Location Date Diagnosis [facility], [place] [address] [facility] [id number] [address] Dec, [facility], [place] [address] [address] Nov, [facility], [place] [id number] [place] [address] 45395- 6609 Nov, Type 2 diabetes mellitus with hyperglycemia E11.65 and Mixed hyperlipidemia E78.2 [facility], [place] [address] [place] [id number] [place] [address] 71023- 3616 Nov, [facility], [place] [id number] [place] [address] 69223- 9923 Oct, [facility], [place] [id number] [place] [address] 18690- 0888 Oct, [facility], [place] [id number] [place] [address] 73967- 8076 September, [facility], [place] [id number] [place] [address] 92499- 7723 September, Type 2 diabetes mellitus with hyperglycemia E11.65 [facility], [place] [id number] [place] [address] 19762- 4392 September, Type 2 diabetes mellitus with hyperglycemia E11.65 [facility], [place] [id number] [place] [address] 23287- 2895 September, Porokeratosis Q82.8 and Type 2 diabetes mellitus with diabetic polyneuropathy E11.42 [facility] [address] [address] Aug, Seasonal allergic rhinitis, unspecified trigger J30.2 [facility], [place] [address] [address] 6833 Aug, [facility], [place] [id number] [place] [address] 94493- 9384 Aug, [facility] [id number] [place] [address] [id number] Aug, Dental examination V72.2 and Dental examination Z01.20 [facility], [place] [id number] [place] [address] 07696- 1120 Aug, Dental examination Z01.20 and Dental caries K02.[address] 78676- 5769 Aug, Obstructive sleep apnea G47.33 ; Obesity E66.9 ; Type 2 diabetes mellitus with hyperglycemia E11.65 ; Palpitations R00.2 and Corns and callosities L84 [address] 44933- 2126 Jul, [place] [address] [address]- 8747 Jul, [address] 56755- 2046 Jun, Type 2 diabetes mellitus with hyperglycemia E11.65 ; Colon cancer screening Z12.11 ; Mixed hyperlipidemia E78.2 ; Non-alcoholic fatty liver disease K76.0 ; Gastroesophageal reflux disease with esophagitis K21.0 and Pain of upper abdomen R10.[address] 38646- 1134 09 Jun, 2017 Falls frequently R29.6 [facility] [address] [address] -[address]758 May, Infection of nose J34.[address] 11621- 0605 May, Bilateral low back pain without sciatica M54.5 [place] [address] 10480- 5852 May, Type 2 diabetes mellitus with diabetic polyneuropathy E11.42 ; Obstructive sleep apnea G47.33 and Type 2 diabetes mellitus with hyperglycemia E11.[address] 55168- 9723 Apr, Bilateral low back pain without sciatica M54.[address] 42115- 3189 Apr, Mixed hyperlipidemia E78.2 and Type 2 diabetes mellitus with hyperglycemia E11.65 [place] [id number] [place] [address] 32005- 9928 Apr, Type 2 diabetes mellitus with diabetic polyneuropathy E11.42 [facility], [place] [id number] [place] [address] 21951- 0007 Apr, [place] [address] 56535- 6226 Apr, Skin lesion of left arm L98.9 and Skin lesion of left leg L98.9 [place] [address] 50978- 2487 Mar, Bilateral low back pain without sciatica M54.5 [place] [id number] [place] [address] 62438- 8682 Mar, Plantar fasciitis of left foot M72.2 ; Bursitis of left foot M71.572 and Type 2 diabetes mellitus with diabetic polyneuropathy E11.42 [place] [id number] [place] [address] 00144- 7504 Feb, Non-alcoholic fatty liver disease K76.0 ; Keratoacanthoma L85.8 ; Seborrheic keratosis L82.1 ; Type 2 diabetes mellitus with hyperglycemia E11.65 and Nuclear cataract of both eyes H25.13 [facility] [id number] [place] [address] [id number] Feb, [place] [id number] [place] [address] 20011- 9808 Feb, [place] [id number] [place] [address] 41205- 0093 Feb, [place] [id number] [place] [address] 19535- 8726 Feb, Type 2 diabetes mellitus with hyperglycemia E11.65 ; Back muscle spasm M62.830 and Encounter for immunization Z23 [place] [id number] [place] [address] 38327- 2844 Jan, Plantar fasciitis of left foot M72.2 [facility], [place] [address] 34603- 3632 Dec, [facility], [place] [id number] [place] [address] 26242- 1168 Dec, Plantar fasciitis of left foot M72.2 and Tarsal tunnel syndrome of left side G57.52 [facility], [place] [address] 80389- 3692 Dec, [facility] [address] 24929 -2666 Nov, Mary Jane rash of groin B37.89 and Rash and nonspecific skin eruption R21 [place] [id number] [place] [address] 65578- 8084 Nov, [place] [address] 37619- 5960 Oct, Type 2 diabetes mellitus with hyperglycemia E11.65 and Mixed hyperlipidemia E78.2 [place] [id number] [place] [address] 81935- 8322 Oct, [place] [id number] [place] [address] 37191- 9821 Oct, Chest pain, unspecified R07.9 ; Palpitations R00.2 ; Syncope R55 and Mixed hyperlipidemia E78.2 [place] [id number] [place] [address] 34807- 6618 Oct, Plantar fasciitis, bilateral M72.2 and Type 1 diabetes mellitus with diabetic neuropathy E10.40 [place] [id number] [place] [address] 17864- 6222 Oct, [place] [id number] [place] [address] 75822- 6649 September, Type 2 diabetes mellitus with hyperglycemia E11.65 [place] [address] [place] [address] 2065 September, Type 2 diabetes mellitus with hyperglycemia E11.65 ; Type 2 diabetes mellitus with diabetic polyneuropathy E11.42 ; Gastroesophageal reflux disease with esophagitis K21.0 and Headache, unspecified headache type R51 [facility], [place] [id number] [place] [address] 08336- 5216 September, [facility], [place] [id number] [place] [address] 79188- 2469 September, [facility], [place] [id number] [place] [address] 41473- 0742 September, [facility], [place] [id number] [place] [address] 37092- 7375 September, Other chest pain R07.89 ; Heart palpitations R00.2 ; Mixed hyperlipidemia E78.2 and Obesity E66.9 [facility], [place] [id number] [place] [address] 22280- 9271 Aug, [facility], [place] [id number] [place] [address] 04986- 5077 Aug, Type 2 diabetes mellitus with diabetic polyneuropathy E11.42 and Type 2 diabetes mellitus with hyperglycemia E11.65 [facility], [place] [id number] [address]- 5570 Aug, [facility], [place] [id number] [place] [address] 15659- 2227 Aug, [facility], [place] [id number] [place] [address] 07820- 2383 Aug, [facility], [place] [id number] [place] [address] 05438- 2073 Aug, Type 2 diabetes mellitus with hyperglycemia E11.65 [facility], [place] [id number] [place] [address] 84163- 8329 Aug, [facility], [place] [id number] [place] [address] 02409- 9065 Jul, Type 2 diabetes mellitus with diabetic polyneuropathy E11.42 [facility], [place] [id number] [place] [address] 53733- 6831 Jul, Type 2 diabetes mellitus with hyperglycemia E11.65 [facility], [place] [address] [place] [address] 32011- 8123 Jul, [facility], [place] [id number] [place] [address] 69026- 5422 Jul, [facility], [place] [id number] [place] [address] 51525- 2529 Jul, [facility], [place] [id number] [place] [address] 68849- 9105 Jul, Type 2 diabetes mellitus with diabetic polyneuropathy E11.42 and Type 2 diabetes mellitus with hyperglycemia E11.65 [facility], [place] [address] [place] [address] 24871- 6031 Jun, Obstructive sleep apnea G47.33 [facility], [place] [address] [address] [id number] [place] [address] 37739- 2401 Jun, Type 2 diabetes mellitus with diabetic polyneuropathy E11.42 ; Primary narcolepsy with cataplexy G47.411 ; Abdominal bloating R14.0 ; Other chest pain R07.89 and Vision problems H54.7 [facility], [place] [address] [address]- 9150 Jun, [facility], [place] [id number] [place] [address] 34776- 6434 May, [facility], [place] [id number] [place] [address] 78542- 0551 Apr, [facility], [place] [address] [address] [id number] [place] [address] 82342- 2212 Apr, Plantar fasciitis of left foot M72.2 [facility], [place] [id number] [place] [address] 88835- 6526 Mar, [facility], [place] [id number] [place] [address] 88206- 6756 Mar, Plantar fasciitis of left foot M72.2 and Type 2 diabetes mellitus with diabetic polyneuropathy E11.42 [facility], [place] [id number] [place] [address] 07151- 6691 14 Feb, 2016 Type 2 diabetes mellitus with hyperglycemia E11.65 ; Mixed hyperlipidemia E78.2 and Encounter for immunization Z23 [facility], [place] [address] [id number] [place] [address] 58611- 5698 Feb, [facility], [place] [id number] [place] [address] 90856- 3746 Feb, [facility], [place] [id number] [place] [address] 87420- 8692 Feb, Type 2 diabetes mellitus with hyperglycemia E11.65 [place] [id number] [place] [address] 77999- 6795 Feb, Type 2 diabetes mellitus with hyperglycemia E11.65 [facility], [place] [id number] [place] [address] 93237- 7831 Jan, [place] [id number] [place] [address] 41540- 5363 Dec, Pain in left foot M79.672 ; Other chronic pain G89.29 ; Type 2 diabetes mellitus with hyperglycemia E11.65 ; Obstructive sleep apnea G47.33 ; Falls frequently R29.6 ; Mixed hyperlipidemia E78.2 and Gastroesophageal reflux disease with esophagitis K21.0 [facility], [place] [id number] [place] [address] 89502- 4912 Nov, [facility], [place] [address] [id number] [place] [address] 32865- 2679 Oct, Type 2 diabetes mellitus with diabetic polyneuropathy E11.42 [facility], [place] [address] [id number] [place] [address] 82695- 6721 Oct, [facility], [place] [address] [address] [id number] [address]- 5213 Oct, [facility], [place] [address] [address]- 9184 September, [facility], [place] [address] [address]- 1011 September, [facility], [place] [id number] [place] [address] 87967- 9166 September, [facility], [place] [address] [place] [address] 23764- 9810 September, [facility], [place] [id number] [place] [address] 49565- 6600 September, [facility], [place] [address] [place] [address] 34136- 5587 Aug, Type 2 diabetes mellitus with hyperglycemia E11.65 ; Mixed hyperlipidemia E78.2 and Right carpal tunnel syndrome G56.01 [facility], [place] [address] [address]- 9210 Aug, [facility], [place] [id number] [place] [address] 85931- 8024 Jul, [facility], [place] [address] [address]- 2540 Jun, [facility], [place] [address] [address]- 9206 Jun, [facility], [place] [address] [address]- 7091 May, [facility], [place] [address] [address]- 5601 May, [facility], [place] [address] [address]- 6901 May, Type 2 diabetes mellitus with hyperglycemia E11.65 and Falls E888.9 [facility], [place] [address] [address]- 9907 Apr, Type 2 diabetes mellitus with hyperglycemia E11.65 [facility], [place] [id number] [place] [address] 33749- 4713 Apr, [facility], [place] [id number] [place] [address] 48774- 0082 Apr, Type 2 diabetes mellitus with hyperglycemia E11.65 [facility], [place] [address] 13051- 1336 Apr, [facility], [place] [address] [id number] [place] [address] 79307- 3273 Mar, Type 2 diabetes mellitus with diabetic polyneuropathy E11.42 ; Bilateral low back pain without sciatica M54.5 and Dry nose J34.89 [facility], [place] [id number] [place] [address] 77205- 1585 Mar, Palpitations R00.2 ; Syncope R55 ; DM (diabetes mellitus) E11.9 and Obesity E66.9 [facility], [place] [id number] [place] [address] 97127- 0879 Mar, [facility], [place] [id number] [place] [address] 16145- 6714 Mar, [facility], [place] [id number] [place] [address] 81071- 6180 Mar, [facility], [place] [id number] [place] [address] 92653- 3709 Feb, [facility], [place] [id number] [place] [address] 19129- 7014 14 Jan, 2015 [facility], [place] [id number] [place] [address] 39940- 0431 Jan, [facility], [place] [id number] [place] [address] 95433- 1075 Jan, Falls E888.9 and Sinusitis 473.9 [facility], [place] [id number] [place] [address] 63706- 4375 Dec, [facility], [place] [address] [place] [address] 34922- 3946 Dec, [facility], [place] [id number] [place] [address] 891299- 2523 Dec, [facility], [place] [id number] [place] [address] 56577- 1973 Dec, [facility], [place] [id number] [place] [address] 27418- 7029 Dec, Diabetes mellitus without mention of complication, type II or unspecified type, not stated as uncontrolled 250.00 and Shortness of breath 786.05 [place] [id number] [place] [address] 20830- 7079 Dec, [facility], [place] [id number] [place] [address] 68254- 7001 Nov, [facility], [place] [id number] [place] [address] 98275- 9836 Nov, [facility], [place] [id number] [place] [address] 61764- 2182 Oct, Restrictive lung disease 518.89 [facility], [place] [address] [place] [address] 01116- 7618 Oct, [place] [id number] [place] [address] 81057- 9258 Oct, Shortness of breath 786.05 [facility], [place] [address] [place] [address] 99221- 2119 September, Other nonspecific abnormal finding of lung field 793.19 ; Diabetes mellitus without mention of complication, type II or unspecified type, not stated as uncontrolled 250.00 ; Hyperlipidemia LDL goal < 100 272.4 ; Narcolepsy, with cataplexy 347.01 ; Shortness of breath 786.05 and Chest pain 786.50 [facility], [place] [id number] [place] [address] 54794- 0595 14 Aug, 2014 [facility] [place] [facility] [address] [id number] [place] [address]- 8357 13 Aug, 2014 [facility] [place] [facility] [address] [facility] [id number] [place] [address]- 3033 16 Jun, 2014 [facility] [place] [facility] [address] [facility] [id number] [place] [address]- 1599 Jun, 2014 [facility] [place] [facility] [address] [facility] [id number] [place] [address]- 6304 Jun, 2014 [facility] [place] [facility] [address] [facility] [id number] [place] [address]- 9451 Jun, 2014 [facility] [place] [facility] [address] [facility] [id number] [place] [address]- 8579 Jun, 2014 [facility] [place] [facility] [address] [facility] [id number] [place] [address]- 5940 Jun, 2014 [facility] [place] [facility] [address] [facility] [id number] [place] [address]- 0997 Jun, 2014 [facility] [place] [facility] [address] [facility] [id number] [place] [address]- 3382 Jun, 2014 [facility] [place] [facility] [address] [facility] [id number] [place] [address]- 3311 May, [facility] [place] [facility] [address] [facility] [id number] [place] [address]- 4592 May, [facility] [place] [facility] [address] [facility] [id number] [address]- 7976 Apr, [facility] [place] [facility] [address] [facility] [id number] [place] [address]- 2971 Apr, [facility] [place] [facility] [address] [facility] [id number] [place] [address]- 8622 Mar, [facility] [place] [facility] [address] [facility] [id number] [address]- 3120 Mar, [facility] [place] [facility] [address] [id number] [place] [address]- 3849 Mar, [facility] [place] [facility] [address] [id number] [place] [address] Mar, [facility] [place] [facility] [address] [id number] [place] [address] Nov, [facility] [place] [facility] [address] [id number] [place] [address] Nov, [facility] [place] [facility] [address] [id number] [place] [address] Nov, [facility] [place] [facility] [address] [id number] [place] [address] Nov, [facility] [place] [facility] [address] [id number] [place] [address] Oct, [facility] [place] [facility] [address] [id number] [place] [address] Oct, [facility] [place] [facility] [address] [id number] [place] [address] Oct, [facility] [place] [facility] [address] [id number] [place] [address] Oct, [facility] [place] [facility] [address] [id number] [place] [address] Oct, [facility] [place] [facility] [address] [id number] [place] [address] Oct, [facility] [place] [facility] [address] [id number] [place] [address] Oct, [facility] [place] [facility] [address] [id number] [place] [address] Oct, [facility] [place] [facility] [address] [id number] [place] [address] Oct, [facility] [place] [facility] [address] [id number] [place] [address] Oct, [facility] [place] [facility] [address] [id number] [place] [address] September, [facility] [place] [facility] [address] [id number] [place] [address] September, [facility] [place] [facility] [address] [id number] [place] [address] Aug, [facility] [place] [facility] [address] [id number] [place] [address] Aug, [facility] [place] [facility] [address] [id number] [place] [address] Aug, [facility] [place] [facility] [address] [id number] [place] [address] Aug, [facility] [place] [facility] [address] [id number] [place] [address] Aug, [facility] [place] [facility] [address] [id number] [place] [address] Aug, [facility] [place] [facility] [address] [id number] [place] [address] Jul, [facility] [place] [facility] [address] [id number] [place] [address] Jul, [facility] [place] [facility] [address] [id number] [place] [address] Jul, [facility] [place] [facility] [address] [id number] [place] [address] Jul, [facility] [place] [facility] [address] [id number] [place] [address] Jul, [facility] [place] [facility] [address] [id number] [place] [address] Jul, [facility] [place] [facility] [address] [id number] [place] [address] Jul, [facility] [place] [facility] [address] [id number] [place] [address] 25 Jul, 2013 [facility] [place] [facility] [address] [id number] [place] [address] Jul, [facility] [place] [facility] [address] [id number] [place] [address] Jul, [facility] [place] [facility] [address] [id number] [place] [address] Jul, [facility] [place] [facility] [address] [id number] [place] [address] Jul, [facility] [place] [facility] [address] [id number] [place] [address] 19 Jul, 2013 [facility] [place] [facility] [address] [id number] [place] [address] Jul, [facility] [place] [facility] [address] [id number] [place] [address] 8867 Jul, [facility] [place] [facility] [address] [id number] [place] [address] 6[address] Jul, [facility] [place] [facility] [address] [id number] [place] [address] 47[address] Jun, [facility] [place] [facility] [address] [id number] [place] [address] Jun, [facility] [place] [facility] [address] [id number] [place] [address] Jun, [facility] [place] [facility] [address] [id number] [place] [address] 93[address] Jun, [facility] [place] [facility] [address] [id number] [place] [address] Jun, [facility] [place] [facility] [address] [id number] [place] [address] 9899 Jun, [facility] [place] [facility] [address] [id number] [place] [address]783 Jun, [facility] [place] [facility] [address] [facility] [id number] [place] [address] 22 Jun, 2013 [facility] [place] [facility] [address] [facility] [id number] [place] [address]76 20 Jun, 2013 [facility] [place] [facility] [address] [facility] [id number] [place] [address] 20 Jun, 2013 [facility] [place] [facility] [address] [facility] [id number] [place] [address]- 3567 18 Jun, 2013 [facility] [place] [facility] [address] [facility] [id number] [place] [address] 5162 18 Jun, 2013 [facility] [place] [facility] [address] [facility] [id number] [place] [address]- 5983 14 Jun, 2013 [facility] [place] [facility] [address] [facility] [id number] [place] [address]- 3958 13 Jun, 2013 [facility] [place] [facility] [address] [facility] [id number] [place] [address]- [address]304 13 Jun, 2013 [facility] [place] [facility] [address] [facility] [id number] [place] [address] 5284 13 Jun, 2013 [facility] [place] [facility] [address] [facility] [id number] [place] [address]- 1280 13 Jun, 2013 [facility] [place] [facility] [address] [facility] [id number] [place] [address]- 1298 12 Jun, 2013 [facility] [place] [facility] [address] [facility] [id number] [place] [address]- 2543 12 Jun, 2013 [facility] [place] [facility] [address] [facility] [id number] [place] [address] 5171 11 Jun, 2013 [facility] [place] [facility] [address] [facility] [id number] [place] [address] 2356 11 Jun, 2013 [facility] [place] [facility] [address] [facility] [id number] [place] [address] 2816 Jun, [facility] [place] [facility] [address] [id number] [place] [address] 0374 Jun, [facility] [place] [facility] [address] [id number] [place] [address] 4386 Jun, [facility] [place] [facility] [address] [id number] [place] [address]- 5597 Jun, [facility] [place] [facility] [address] [id number] [place] [address]- 6788 Jun, 2013 [facility] [place] [facility] [address] [id number] [place] [address]- 9084 Jun, [facility] [place] [facility] [address] [id number] [place] [address]- 1422 Jun, [facility] [place] [facility] [address] [id number] [place] [address]- 1237 Jun, [facility] [place] [facility] [address] [id number] [place] [address]- 6283 Jun, [facility] [place] [facility] [address] [id number] [place] [address]- 2131 May, [facility] [place] [facility] [address] [id number] [place] [address]- 2137 May, [facility] [place] [facility] [address] [id number] [place] [address]- 7524 May, [facility] [place] [facility] [address] [id number] [place] [address]- 1242 May, [facility] [place] [facility] [address] [id number] [place] [address]- 8112 May, [facility] [place] [facility] [address] [id number] [place] [address]- 0049 May, [facility] [place] [facility] [address] [id number] [place] [address]- 1319 May, [facility] [place] [facility] [address] [id number] [place] [address]- 2908 15 May, 2013 [facility] [address] [id number] [place] [address]- [address]807 May, [facility] [address] [id number] [place] [address]- 5131 May, [facility] [address] [id number] [place] [address]- 3798 May, [facility] [address] [id number] [place] [address]- 6249 May, [facility] [address] [id number] [place] [address]- 0029 May, [facility] [address] [id number] [place] [address]- 6539 May, [facility] [address] [id number] [place] [address]- 7559 May, [facility] [address] [id number] [place] [address]- 6403 Apr, [facility] [address] [id number] [place] [address]- 5153 Apr, [facility] [address] [id number] [place] [address]- 9048 14 Dec, 2012 [facility] [address] [id number] [place] [address]- 6952 Nov, [facility] [address] [id number] [place] [address]- 0218 May, [facility] [address] [id number] [place] [address]- 5274 Apr, [facility] [address] [id number] [place] [address] 4399 Apr, [facility] [address] [id number] [place] [address]- 3026 Apr, [facility] [place] [address] [facility] [id number] [place] [id number] Apr, IMMUNIZATIONS No Known Immunizations SOCIAL HISTORY Never Assessed REASON FOR VISIT [facility] PLAN OF CARE Activity Details Follow Up prn Reason: VITAL SIGNS MEDICATIONS Unknown Medications RESULTS No Results PROCEDURES Procedure Date Ordered Result Body Site SCREENING OF A PATIENT August 14, 2017 Billing Notes on claim August 14, 2017 INSTRUCTIONS MEDICATIONS ADMINISTERED No Known Medications MEDICAL (GENERAL) HISTORY Type Description Date Medical History asthma Medical History type II diabetes Medical History sleep apnea Medical History narcolepsy Surgical History hysterectomy Hospitalization History Chest pain-[facility] 02/27/17
--- OUTSIDE RECORDS SUMMARY | 2018-03-08 22:57 | XMS REPORT ---
Author Author RENAY HICKS [facility] Address [address] [place] [address] Care Team Providers Care Correctional Classification Counselor Name Role Phone HICKSCYNTHIAAN Unavailable PROBLEMS Type Condition ICD9-CM Code TSA17-HL Code Onset Dates Condition Status SNOMED Code Problem Right carpal tunnel syndrome G56.01 Active 94328302 Problem Gastroesophageal reflux disease with esophagitis K21.0 Active 933583326 Problem Falls frequently R29.6 Active 170068493 Problem Porokeratosis Q82.8 Active 958831226 Problem Posterior subcapsular age-related cataract of both eyes H25.043 Active 9988432 Problem Non-alcoholic fatty liver disease K76.0 Active 097876955 Problem Delayed gastric emptying K30 Active 741772185 Problem Pain in left foot M79.672 Active 3648057 Problem Other chronic pain G89.29 Active 94583781 Problem Tarsal tunnel syndrome of left side G57.52 Active 07088726 Problem Obesity E66.9 Active 577725538 Problem Hypermetropia, bilateral H52.03 Active 15164251 Problem Type 2 diabetes mellitus with hyperglycemia E11.65 Active 15582961 Problem Nuclear cataract of both eyes H25.13 Active 76111164 Problem Presbyopia OU H52.4 Active 62030467 Problem Obstructive sleep apnea G47.33 Active 07202019 Problem Shortness of breath R06.02 Active 866299712 Problem Type 2 diabetes mellitus with diabetic polyneuropathy E11.42 Active 46787717 Problem Lung nodule R91.1 Active 731685189 Problem Mixed hyperlipidemia E78.2 Active 514415123 Problem Primary narcolepsy with cataplexy G47.411 Active 462499070 ALLERGIES No Information ENCOUNTERS Encounter Location Date Diagnosis [facility], [place] [address] [facility] [id number] [address] Dec, [facility], [place] [address] [place] [id number] [place] [address] 61808- 5898 Nov, [facility], [place] [id number] [place] [address] 75628- 4220 Nov, Type 2 diabetes mellitus with hyperglycemia E11.65 and Mixed hyperlipidemia E78.2 [facility], [place] [address] [place] [place] [id number] [place] [address] 01314- 8064 Nov, [facility], [place] [id number] [place] [address] 05282- 6117 Oct, [facility], [place] [id number] [place] [address] 80433- 3429 Oct, [facility], [place] [id number] [place] [address] 05837- 4435 September, [facility], [place] [address] [id number] [place] [address] 38026- 7865 September, Type 2 diabetes mellitus with hyperglycemia E11.65 [facility], [place] [address] [id number] [place] [address] 84655- 0334 September, Type 2 diabetes mellitus with hyperglycemia E11.65 [facility], [place] [id number] [place] [address] 30297- 5976 September, Porokeratosis Q82.8 and Type 2 diabetes mellitus with diabetic polyneuropathy E11.42 [facility] [address] [address] Aug, Seasonal allergic rhinitis, unspecified trigger J30.2 [facility], [place] [address] [address] 7950 Aug, [facility], [place] [id number] [place] [address] 48860- 8152 Aug, [facility] [id number] [place] [address] [id number] Aug, Dental examination V72.2 and Dental examination Z01.20 [facility], [place] [id number] [place] [address] 39154- 8321 Aug, Dental examination Z01.20 and Dental caries K02.[address] 55656- 0912 Aug, Obstructive sleep apnea G47.33 ; Obesity E66.9 ; Type 2 diabetes mellitus with hyperglycemia E11.65 ; Palpitations R00.2 and Corns and callosities L84 [address] 78743- 7815 Jul, [place] [address] 01671- 7004 Jul, [address] 27332- 2556 Jun, Type 2 diabetes mellitus with hyperglycemia E11.65 ; Colon cancer screening Z12.11 ; Mixed hyperlipidemia E78.2 ; Non-alcoholic fatty liver disease K76.0 ; Gastroesophageal reflux disease with esophagitis K21.0 and Pain of upper abdomen R10.[address] 55183- 8278 09 Jun, 2017 Falls frequently R29.6 [facility] [address] [address] -6653 May, Infection of nose J34.[address] 87275- 7336 May, Bilateral low back pain without sciatica M54.[address] 82978- 3506 May, Type 2 diabetes mellitus with diabetic polyneuropathy E11.42 ; Obstructive sleep apnea G47.33 and Type 2 diabetes mellitus with hyperglycemia E11.[address] 77679- 9991 Apr, Bilateral low back pain without sciatica M54.[address] 85920- 2911 Apr, Mixed hyperlipidemia E78.2 and Type 2 diabetes mellitus with hyperglycemia E11.65 [place] [address] [place] [id number] [place] [address] 14062- 6435 Apr, Type 2 diabetes mellitus with diabetic polyneuropathy E11.42 [facility], [place] [address] [place] [id number] [place] [address] 92997- 8649 Apr, [place] [address] 12692- 1641 Apr, Skin lesion of left arm L98.9 and Skin lesion of left leg L98.9 [place] [address] 52873- 2595 Mar, Bilateral low back pain without sciatica M54.5 [place] [address] 35617- 2282 Mar, Plantar fasciitis of left foot M72.2 ; Bursitis of left foot M71.572 and Type 2 diabetes mellitus with diabetic polyneuropathy E11.42 [place] [address] 33544- 1986 Feb, Non-alcoholic fatty liver disease K76.0 ; Keratoacanthoma L85.8 ; Seborrheic keratosis L82.1 ; Type 2 diabetes mellitus with hyperglycemia E11.65 and Nuclear cataract of both eyes H25.13 [facility] [address] [place] [id number] [place] [address] [id number] Feb, [place] [address] [place] [id number] [place] [address] 22581- 5135 Feb, [place] [address] 70543- 7492 Feb, [place] [address] 86658- 2196 Feb, Type 2 diabetes mellitus with hyperglycemia E11.65 ; Back muscle spasm M62.830 and Encounter for immunization Z23 [place] [address] [place] [address]- 9625 08 Jan, 2017 Plantar fasciitis of left foot M72.2 [facility], [place] [address] [place] [id number] [place] [address] 75982- 9266 Dec, [facility], [place] [address] [place] [id number] [place] [address] 66600- 4407 Dec, Plantar fasciitis of left foot M72.2 and Tarsal tunnel syndrome of left side G57.52 [facility], [place] [address] [place] [id number] [place] [address] 87791- 2306 Dec, [facility] [address] [place] [place] [id number] [place] [address] 55680 -4037 Nov, Mary Jane rash of groin B37.89 and Rash and nonspecific skin eruption R21 [place] [address] [id number] [place] [address] 07108- 4382 Nov, [place] [address] [place] [id number] [place] [address] 30238- 8276 Oct, Type 2 diabetes mellitus with hyperglycemia E11.65 and Mixed hyperlipidemia E78.2 [place] [address] [place] [id number] [place] [address] 81671- 6477 Oct, [place] [address] [place] [id number] [place] [address] 92730- 6868 Oct, Chest pain, unspecified R07.9 ; Palpitations R00.2 ; Syncope R55 and Mixed hyperlipidemia E78.2 [place] [address] [place] [id number] [place] [address] 07305- 1072 Oct, Plantar fasciitis, bilateral M72.2 and Type 1 diabetes mellitus with diabetic neuropathy E10.40 [place] [address] [place] [id number] [place] [address] 66770- 0834 Oct, [place] [address] [id number] [place] [address] 05431- 1359 September, Type 2 diabetes mellitus with hyperglycemia E11.65 [place] [address] [id number] [address]- 5690 September, Type 2 diabetes mellitus with hyperglycemia E11.65 ; Type 2 diabetes mellitus with diabetic polyneuropathy E11.42 ; Gastroesophageal reflux disease with esophagitis K21.0 and Headache, unspecified headache type R51 [facility], [place] [address] [id number] [address]- 6253 September, [facility], [place] [address] [id number] [place] [address] 65191- 1696 September, [facility], [place] [address] [place] [id number] [place] [address] 00254- 1158 September, [facility], [place] [address] [place] [id number] [place] [address] 06113- 8740 September, Other chest pain R07.89 ; Heart palpitations R00.2 ; Mixed hyperlipidemia E78.2 and Obesity E66.9 [facility], [place] [address] [place] [id number] [place] [address] 64478- 2466 Aug, [facility], [place] [address] [place] [id number] [place] [address] 01398- 1272 Aug, Type 2 diabetes mellitus with diabetic polyneuropathy E11.42 and Type 2 diabetes mellitus with hyperglycemia E11.65 [facility], [place] [id number] [address]- 2941 Aug, [facility], [place] [id number] [address]- 2782 Aug, [facility], [place] [address] [place] [id number] [place] [address] 80007- 8684 Aug, [facility], [place] [address] [place] [id number] [place] [address] 25461- 8726 Aug, Type 2 diabetes mellitus with hyperglycemia E11.65 [facility], [place] [id number] [place] [address] 35118- 4418 Aug, [facility], [place] [address] [place] [place] [id number] [place] [address] 72723- 8837 Jul, Type 2 diabetes mellitus with diabetic polyneuropathy E11.42 [facility], [place] [id number] [place] [address] 25472- 5205 Jul, Type 2 diabetes mellitus with hyperglycemia E11.65 [facility], [place] [address] [place] [id number] [place] [address] 70717- 1866 Jul, [facility], [place] [address] [place] [id number] [place] [address] 48768- 0241 Jul, [facility], [place] [address] [place] [id number] [place] [address] 90657- 9193 Jul, [facility], [place] [address] [place] [id number] [place] [address] 28214- 1080 Jul, Type 2 diabetes mellitus with diabetic polyneuropathy E11.42 and Type 2 diabetes mellitus with hyperglycemia E11.65 [place] [address] [place] [id number] [place] [address] 56040- 4645 Jun, Obstructive sleep apnea G47.33 [place] [address] [place] [id number] [place] [address] 31980- 1526 Jun, Type 2 diabetes mellitus with diabetic polyneuropathy E11.42 ; Primary narcolepsy with cataplexy G47.411 ; Abdominal bloating R14.0 ; Other chest pain R07.89 and Vision problems H54.7 [place] [id number] [place] [address] 73630- 0134 Jun, [facility], [place] [address] [place] [id number] [place] [address] 43555- 4927 May, [facility], [place] [address] [place] [id number] [place] [address] 38544- 3108 Apr, [facility], [place] [address] [place] [id number] [place] [address] 10596- 0179 Apr, Plantar fasciitis of left foot M72.2 [facility], [place] [address] [place] [id number] [place] [address] 54667- 1462 Mar, [facility], [place] [address] [address]- 8751 Mar, Plantar fasciitis of left foot M72.2 and Type 2 diabetes mellitus with diabetic polyneuropathy E11.42 [facility], [place] [id number] [place] [address] 27609- 6083 14 Feb, 2016 Type 2 diabetes mellitus with hyperglycemia E11.65 ; Mixed hyperlipidemia E78.2 and Encounter for immunization Z23 [facility], [place] [address] [place] [id number] [place] [address] 28368- 2606 Feb, [facility], [place] [address] [place] [id number] [place] [address] 01975- 5319 Feb, [facility], [place] [address] [place] [id number] [place] [address] 28162- 8630 Feb, Type 2 diabetes mellitus with hyperglycemia E11.65 [facility], [place] [address] [place] [id number] [place] [address] 88535- 3515 Feb, Type 2 diabetes mellitus with hyperglycemia E11.65 [facility], [place] [address] [place] [id number] [place] [address] 79009- 0993 Jan, [facility], [place] [address] [place] [id number] [place] [address] 05834- 4848 Dec, Pain in left foot M79.672 ; Other chronic pain G89.29 ; Type 2 diabetes mellitus with hyperglycemia E11.65 ; Obstructive sleep apnea G47.33 ; Falls frequently R29.6 ; Mixed hyperlipidemia E78.2 and Gastroesophageal reflux disease with esophagitis K21.0 [facility], [place] [address], [place] [address]- 3073 Nov, [facility], [place] [address] [place] [id number] [place] [address] 69871- 2965 Oct, Type 2 diabetes mellitus with diabetic polyneuropathy E11.42 [facility], [place] [id number] [place] [address] 52793- 7707 Oct, [facility], [place] [id number] [address]- 1508 Oct, [facility], [place] [address], [place] [address]- 5659 September, [facility], [place] [address], [place] [address]- 0137 September, [facility], [place] [address] [place] [id number] [place] [address] 55711- 8337 September, [facility], [place] [address], [place] [address]- 2141 September, [facility], [place] [address] [place] [id number] [place] [address] 38953- 7441 September, [facility], [place] [address], [place] [address]- 2262 Aug, Type 2 diabetes mellitus with hyperglycemia E11.65 ; Mixed hyperlipidemia E78.2 and Right carpal tunnel syndrome G56.01 [facility], [place] [address], [place] [address]- 3465 Aug, [facility], [place] [address], [place] [address]- 9568 Jul, [facility], [place] [address], [place] [address]- 2165 Jun, [facility], [place] [address], [place] [address]- 8264 Jun, [facility], [place] [address], [place] [address]- 8276 May, [facility], [place] [address], [place] [address]- 8693 May, [facility], [place] [address], [place] [address]- 3141 May, Type 2 diabetes mellitus with hyperglycemia E11.65 and Falls E888.9 [facility], [place] [address], [place] [address]- 7026 Apr, Type 2 diabetes mellitus with hyperglycemia E11.65 [facility], [place] [address] [place] [id number] [place] [address] 51049- 0479 Apr, [facility], [place] [address] [place] [id number] [place] [address] 95011- 0355 Apr, Type 2 diabetes mellitus with hyperglycemia E11.65 [facility], [place] [address] 91683- 9387 Apr, [facility], [place] [address] [place] [id number] [place] [address] 06266- 0552 Mar, Type 2 diabetes mellitus with diabetic polyneuropathy E11.42 ; Bilateral low back pain without sciatica M54.5 and Dry nose J34.89 [facility], [place] [address] [place] [id number] [place] [address] 02586- 4187 Mar, Palpitations R00.2 ; Syncope R55 ; DM (diabetes mellitus) E11.9 and Obesity E66.9 [facility], [place] [address] [place] [id number] [place] [address] 20821- 9804 Mar, [facility], [place] [address] [place] [id number] [place] [address] 65139- 4044 Mar, [facility], [place] [address] [place] [id number] [place] [address] 68521- 5335 Mar, [facility], [place] [id number] [place] [address] 63071- 1138 Feb, [facility], [place] [id number] [place] [address] 22978- 0394 14 Jan, 2015 [facility], [place] [address] 39882- 6689 Jan, [facility], [place] [address] [place] [id number] [place] [address] 22038- 3391 Jan, Falls E888.9 and Sinusitis 473.9 [facility], [place] [address] [place] [id number] [place] [address] 11573- 5185 Dec, [facility], [place] [id number] [place] [address] 30727- 3932 Dec, [facility], [place] [address] [id number] [place] [address] [id number]- 1948 Dec, [facility], [place] [address] [id number] [place] [address] 80121- 6365 Dec, [facility], [place] [address] [place] [id number] [place] [address] 81563- 0446 Dec, Diabetes mellitus without mention of complication, type II or unspecified type, not stated as uncontrolled 250.00 and Shortness of breath 786.05 [place] [id number] [place] [address] 75293- 7355 Dec, [facility], [place] [id number] [place] [address] 08548- 5512 Nov, [facility] [place] [id number] [place] [address] 43148- 9449 Nov, [facility], [place] [id number] [place] [address] 78974- 7607 Oct, Restrictive lung disease 518.89 [place] [id number] [place] [address] 93061- 0259 Oct, [place] [id number] [place] [address] 72283- 4569 Oct, Shortness of breath 786.05 [facility], [place] [id number] [place] [address] 04742- 3193 September, Other nonspecific abnormal finding of lung field 793.19 ; Diabetes mellitus without mention of complication, type II or unspecified type, not stated as uncontrolled 250.00 ; Hyperlipidemia LDL goal < 100 272.4 ; Narcolepsy, with cataplexy 347.01 ; Shortness of breath 786.05 and Chest pain 786.50 [facility] [place] [id number] [place] [address] 38007- 2740 14 Aug, 2014 [facility] [place] [facility] [address] [id number] [place] [address]- 7592 13 Aug, 2014 [facility] [place] [facility] [address] [id number] [place] 5578 16 Jun, 2014 [facility] [place] [facility] [address] [facility] [id number] [place] [address]- 9013 16 Jun, 2014 [facility] [place] [facility] [address] [id number] [place] [address]- 3746 05 Jun, 2014 [facility] [place] [facility] [address] [id number] [place] [address]- 7828 Jun, 2014 [facility] [place] [facility] [address] [facility] [id number] [place] [address]- 6256 05 Jun, 2014 [facility] [place] [facility] [address] [facility] [id number] [place] [address]- 2562 05 Jun, 2014 [facility] [place] [facility] [address] [facility] [id number] [place] [address]- 1105 05 Jun, 2014 [facility] [place] [facility] [address] [facility] [id number] [place] [address]- 0967 05 Jun, 2014 [facility] [place] [facility] [address] [facility] [id number] [place] [address]- 9835 May, [facility] [place] [facility] [address] [facility] [id number] [place] [address] May, [facility] [place] [facility] [address] [facility] [facility] [facility] [id number], [place] [address] Apr, [facility] [place] [facility] [address] [id number] [place] [address] Apr, [facility] [place] [facility] [address] [facility] [id number] [place] [address] Mar, [facility] [place] [facility] [address] [facility] [id number], [place] [address] Mar, [facility] [place] [facility] [address] [id number] [place] [address] Mar, [facility] [place] [facility] [address] [id number] [place] [address] Mar, [facility] [place] [facility] [address] [id number] [place] [address] Nov, [facility] [place] [facility] [address] [id number] [place] [address] Nov, [facility] [place] [facility] [address] [id number] [place] [address] Nov, [facility] [place] [facility] [address] [id number] [place] [address] Nov, [facility] [place] [facility] [address] [id number] [place] [address] Oct, [facility] [place] [facility] [address] [id number] [place] [address] Oct, [facility] [place] [facility] [address] [id number] [place] [address] Oct, [facility] [place] [facility] [address] [id number] [place] [address] Oct, [facility] [place] [facility] [address] [id number] [place] [address] Oct, [facility] [place] [facility] [address] [id number] [place] [address] Oct, [facility] [place] [facility] [address] [id number] [place] [address] Oct, [facility] [place] [facility] [address] [id number] [place] [address] Oct, [facility] [place] [facility] [address] [id number] [place] [address] Oct, [facility] [place] [facility] [address] [id number] [place] [address] Oct, [facility] [place] [facility] [address] [id number] [place] [address] September, [facility] [place] [facility] [address] [id number] [place] [address] September, [facility] [place] [facility] [address] [id number] [place] [address] Aug, [facility] [place] [facility] [address] [id number] [place] [address] Aug, [facility] [place] [facility] [address] [id number] [place] [address] Aug, [facility] [place] [facility] [address] [id number] [place] [address] Aug, [facility] [place] [facility] [address] [id number] [place] [address] Aug, [facility] [place] [facility] [address] [id number] [place] [address] Aug, [facility] [place] [facility] [address] [id number] [place] [address] Jul, [facility] [place] [facility] [address] [id number] [place] [address] Jul, [facility] [place] [facility] [address] [id number] [place] [address] Jul, [facility] [place] [facility] [address] [id number] [place] [address] Jul, [facility] [place] [facility] [address] [id number] [place] [address] Jul, [facility] [place] [facility] [address] [id number] [place] [address] Jul, [facility] [place] [facility] [address] [id number] [place] [address] Jul, [facility] [place] [facility] [address] [id number] [place] [address] 25 Jul, 2013 [facility] [address] [id number] [place] [address] Jul, [facility] [place] [facility] [address] [id number] [place] [address] Jul, [facility] [place] [facility] [address] [id number] [place] [address] Jul, [facility] [place] [facility] [address] [id number] [place] [address] Jul, [facility] [place] [facility] [address] [id number] [place] [address] Jul, [facility] [place] [facility] [address] [id number] [place] [address] Jul, [facility] [place] [facility] [address] [id number] [place] [address] Jul, [facility] [place] [facility] [address] [id number] [place] [address] Jul, [facility] [place] [facility] [address] [id number] [place] [address] Jun, [facility] [place] [facility] [address] [id number] [place] [address] Jun, [facility] [place] [facility] [address] [id number] [place] [address] Jun, [facility] [place] [facility] [address] [id number] [place] [address] Jun, [facility] [place] [facility] [address] [id number] [place] [address] Jun, [facility] [place] [facility] [address] [id number] [place] [address] Jun, [facility] [place] [facility] [address] [id number] [place] [address] Jun, [facility] [place] [facility] [address] [facility] [id number] [place] [address] 22 Jun, 2013 [facility] [place] [facility] [address] [facility] [id number] [place] [address] 20 Jun, 2013 [facility] [place] [facility] [address] [facility] [id number] [place] [address] 20 Jun, 2013 [facility] [place] [facility] [address] [facility] [id number] [place] [address] 25[address] 18 Jun, 2013 [facility] [place] [facility] [address] [facility] [id number] [place] [address]- [address]84 18 Jun, 2013 [facility] [place] [facility] [address] [facility] [id number] [place] [address]- 1346 14 Jun, 2013 [facility] [place] [facility] [address] [facility] [id number] [place] [address]- [address]359 13 Jun, 2013 [facility] [place] [facility] [address] [facility] [id number] [place] [address]- [address] 13 Jun, 2013 [facility] [place] [facility] [address] [facility] [id number] [place] [address]- 7028 13 Jun, 2013 [facility] [place] [facility] [address] [facility] [id number] [place] [address]- 5[address] 13 Jun, 2013 [facility] [place] [facility] [address] [facility] [id number] [place] [address]- [address] 12 Jun, 2013 [facility] [place] [facility] [address] [facility] [id number] [place] [address]- [address]41 12 Jun, 2013 [facility] [place] [facility] [address] [facility] [id number] [place] [address]- [address] 11 Jun, 2013 [facility] [place] [facility] [address] [facility] [id number] [place] [address]- [address]46 11 Jun, 2013 [facility] [place] [facility] [address] [facility] [id number] [place] [address] Jun, [facility] [place] [facility] [address] [id number] [place] [address] Jun, [facility] [place] [facility] [address] [id number] [place] [address]40 Jun, [facility] [place] [facility] [address] [id number] [place] [address]- 8860 Jun, [facility] [place] [facility] [address] [id number] [place] [address] Jun, 2013 [facility] [place] [facility] [address] [id number] [place] [address] Jun, [facility] [place] [facility] [address] [id number] [place] [address] 49[address] Jun, [facility] [place] [facility] [address] [id number] [place] [address]- 7911 Jun, [facility] [place] [facility] [address] [id number] [place] [address] Jun, [facility] [place] [facility] [address] [id number] [place] [address] May, [facility] [place] [facility] [address] [id number] [place] [address]- [address] May, [facility] [place] [facility] [address] [id number] [place] [address]- [address] May, [facility] [place] [facility] [address] [id number] [place] [address] 47[address] May, [facility] [place] [facility] [address] [id number] [place] [address]- [address] May, [facility] [place] [facility] [address] [id number] [place] [address]- [address] May, [facility] [place] [facility] [address] [id number] [place] [address] May, [facility] [place] [facility] [address] [id number] [place] [address] 15 May, 2013 [facility] [address] [id number] [place] [address] May, [facility] [address] [id number] [place] [address]- [address] May, [facility] [address] [id number] [place] [address]- [address] May, [facility] [address] [id number] [place] [address]- 1423 May, [facility] [address] [id number] [place] [address] May, [facility] [address] [id number] [place] [address] 48[address] May, [facility] [address] [id number] [place] [address]- [address] May, [facility] [address] [id number] [place] [address]- 2487 Apr, [facility] [address] [id number] [place] [address] 1110 Apr, [facility] [address] [id number] [place] [address] Dec, [facility] [address] [id number] [place] [address] 269[address] Nov, [facility] [address] [id number] [place] [address]- 2260 May, [facility] [place] [facility] [address] [id number] [place] [address]- 3506 Apr, [facility] [address] [id number] [place] [address]- 3786 Apr, [facility] [address] [id number] [place] [address]- 1723 Apr, [facility] [place] [address] [facility] [id number] [place] [address] Apr, IMMUNIZATIONS No Known Immunizations SOCIAL HISTORY Never Assessed REASON FOR VISIT PT follow-up PLAN OF CARE Activity Details Follow Up 3 Weeks Reason:F/U PT VITAL SIGNS MEDICATIONS Unknown Medications RESULTS No Results PROCEDURES Procedure Date Ordered Result Body Site THERAPEUTIC EXERCISES Jun 21, 2017 INSTRUCTIONS MEDICATIONS ADMINISTERED No Known Medications MEDICAL (GENERAL) HISTORY Type Description Date Medical History asthma Medical History type II diabetes Medical History sleep apnea Medical History narcolepsy Surgical History hysterectomy Hospitalization History [facility] 02/27/17
--- OUTSIDE RECORDS SUMMARY | 2018-03-08 22:58 | XMS REPORT ---
Author Author QUINTEN GILLIAM [facility] Address [address] [place] [address] Care Team Providers Care Legal Specialist Name Role Phone QUINTEN GILLIAM Unavailable PROBLEMS Type Condition ICD9-CM Code PPC04-LN Code Onset Dates Condition Status SNOMED Code Problem Right carpal tunnel syndrome G56.01 Active 62957602 Problem Gastroesophageal reflux disease with esophagitis K21.0 Active 277778107 Problem Falls frequently R29.6 Active 446650741 Problem Porokeratosis Q82.8 Active 832533953 Problem Posterior subcapsular age-related cataract of both eyes H25.043 Active 5125723 Problem Non-alcoholic fatty liver disease K76.0 Active 262644465 Problem Delayed gastric emptying K30 Active 693660581 Problem Pain in left foot M79.672 Active 4247215 Problem Other chronic pain G89.29 Active 17250940 Problem Tarsal tunnel syndrome of left side G57.52 Active 35792978 Problem Obesity E66.9 Active 462256226 Problem Hypermetropia, bilateral H52.03 Active 76237421 Problem Type 2 diabetes mellitus with hyperglycemia E11.65 Active 07157480 Problem Nuclear cataract of both eyes H25.13 Active 24750929 Problem Presbyopia OU H52.4 Active 37698958 Problem Obstructive sleep apnea G47.33 Active 85392864 Problem Shortness of breath R06.02 Active 816316843 Problem Type 2 diabetes mellitus with diabetic polyneuropathy E11.42 Active 10649392 Problem Lung nodule R91.1 Active 351699303 Problem Mixed hyperlipidemia E78.2 Active 426968185 Problem Primary narcolepsy with cataplexy G47.411 Active 161867162 ALLERGIES Substance Reaction Event Type Date Status Penicillin G Sodium Unknown Drug Allergy Aug, Active Erythromycin Unknown Drug Allergy Aug, Active ENCOUNTERS Encounter Location Date Diagnosis [facility] [address] [facility] [id number] [address] Dec, [facility] [id number] [place] [address] 36520- 5964 Nov, [facility] [id number] [place] [address] 74704- 3439 Nov, Type 2 diabetes mellitus with hyperglycemia E11.65 and Mixed hyperlipidemia E78.2 [facility] [id number] [place] [address] 28541- 3520 Nov, [facility] [id number] [place] [address] 94528- 9047 Oct, [facility] [id number] [place] [address] 01908- 8424 Oct, [facility] [id number] [place] [address] 48492- 9800 September, [facility] [id number] [place] [address] 78448- 4864 September, Type 2 diabetes mellitus with hyperglycemia E11.65 [facility] [id number] [place] [address] 84509- 9655 September, Type 2 diabetes mellitus with hyperglycemia E11.65 [facility] [id number] [place] [address] 82351- 1572 September, Porokeratosis Q82.8 and Type 2 diabetes mellitus with diabetic polyneuropathy E11.42 [facility] [id number] [place] [address] 35747 -6782 Aug, Seasonal allergic rhinitis, unspecified trigger J30.2 [facility] [id number] [place] [address] 89909- 4447 Aug, [facility] [id number] [place] [address] 95993- 4908 Aug, [facility] [id number] [place] [address] [id number] Aug, Dental examination V72.2 and Dental examination Z01.20 [facility] [id number] [place] [address] 68947- 6884 04 Aug, 2017 Dental examination Z01.20 and Dental caries K02.9 [place] [address] [place] [id number]- [address]572 Aug, Obstructive sleep apnea G47.33 ; Obesity E66.9 ; Type 2 diabetes mellitus with hyperglycemia E11.65 ; Palpitations R00.2 and Corns and callosities L84 [place] [address] 24673- 9214 Jul, [place] [address] 48601- 3707 Jul, [place] [address] 80475- 0155 Jun, Type 2 diabetes mellitus with hyperglycemia E11.65 ; Colon cancer screening Z12.11 ; Mixed hyperlipidemia E78.2 ; Non-alcoholic fatty liver disease K76.0 ; Gastroesophageal reflux disease with esophagitis K21.0 and Pain of upper abdomen R10.10 [place] [address] 11603- 8791 09 Jun, 2017 Falls frequently R29.[address] [facility] [id number] [place] [address] 98740 -6881 May, Infection of nose J34.89 [place] [address] 27329- 6532 May, Bilateral low back pain without sciatica M54.5 [place] [address] 45328- 5465 May, Type 2 diabetes mellitus with diabetic polyneuropathy E11.42 ; Obstructive sleep apnea G47.33 and Type 2 diabetes mellitus with hyperglycemia E11.65 [place] [address] 64971- 2681 Apr, Bilateral low back pain without sciatica M54.5 [place] [id number] [place] [address] 22152- 7610 Apr, Mixed hyperlipidemia E78.2 and Type 2 diabetes mellitus with hyperglycemia E11.65 [place] [id number] [place] [address] 78616- 8719 Apr, Type 2 diabetes mellitus with diabetic polyneuropathy E11.42 [place] [id number] [place] [address] 00046- 3740 Apr, [place] [id number] [place] [address] 16673- 7116 Apr, Skin lesion of left arm L98.9 and Skin lesion of left leg L98.9 [place] [id number] [place] [address] 49470- 0655 Mar, Bilateral low back pain without sciatica M54.5 [place] [id number] [place] [address] 21400- 3318 Mar, Plantar fasciitis of left foot M72.2 ; Bursitis of left foot M71.572 and Type 2 diabetes mellitus with diabetic polyneuropathy E11.42 [place] [id number] [place] [address] 87704- 2844 Feb, Non-alcoholic fatty liver disease K76.0 ; Keratoacanthoma L85.8 ; Seborrheic keratosis L82.1 ; Type 2 diabetes mellitus with hyperglycemia E11.65 and Nuclear cataract of both eyes H25.13 [facility] [id number] [place] [address] [id number] Feb, [place] [id number] [place] [address] 96618- 3008 Feb, [place] [id number] [place] [address] 88618- 9118 Feb, [place] [id number] [place] [address] 70391- 3608 Feb, Type 2 diabetes mellitus with hyperglycemia E11.65 ; Back muscle spasm M62.830 and Encounter for immunization Z23 [facility] [id number] [place] [address] 02526- 6936 Jan, Plantar fasciitis of left foot M72.2 [facility] [address] 23029- 5124 Dec, [facility] [address] 29629- 8871 Dec, Plantar fasciitis of left foot M72.2 and Tarsal tunnel syndrome of left side G57.52 [facility] [address] 64968- 9201 Dec, [facility] [address] 89426 -4880 Nov, Mary Jane rash of groin B37.89 and Rash and nonspecific skin eruption R21 [place] [address] 28612- 6526 Nov, [place] [address] 04311- 2525 Oct, Type 2 diabetes mellitus with hyperglycemia E11.65 and Mixed hyperlipidemia E78.2 [place] [address] 76088- 2757 Oct, [place] [address] 84170- 9334 Oct, Chest pain, unspecified R07.9 ; Palpitations R00.2 ; Syncope R55 and Mixed hyperlipidemia E78.2 [place] [id number] [place] [address] 21024- 4800 Oct, Plantar fasciitis, bilateral M72.2 and Type 1 diabetes mellitus with diabetic neuropathy E10.40 [place] [id number] [place] [address] 21539- 7354 Oct, [facility] [address] 37787- 1394 September, Type 2 diabetes mellitus with hyperglycemia E11.65 [facility] [id number] [place] [address] 50883- 1807 September, Type 2 diabetes mellitus with hyperglycemia E11.65 ; Type 2 diabetes mellitus with diabetic polyneuropathy E11.42 ; Gastroesophageal reflux disease with esophagitis K21.0 and Headache, unspecified headache type R51 [facility] [id number] [place] [address] 50396- 6521 September, [facility] [id number] [place] [address] 85018- 7257 September, [facility] [id number] [place] [address] 43618- 9853 September, [place] [id number] [place] [address] 52900- 0872 September, Other chest pain R07.89 ; Heart palpitations R00.2 ; Mixed hyperlipidemia E78.2 and Obesity E66.9 [place] [id number] [place] [address] 24280- 1617 Aug, [place] [id number] [place] [address] 41498- 8987 Aug, Type 2 diabetes mellitus with diabetic polyneuropathy E11.42 and Type 2 diabetes mellitus with hyperglycemia E11.65 [place] [id number] [place] [address] 51495- 4097 Aug, [facility] [id number] [place] [address] 47824- 7002 Aug, [facility] [id number] [place] [address] 50404- 7542 Aug, [facility] [id number] [place] [address] 21395- 9049 Aug, Type 2 diabetes mellitus with hyperglycemia E11.65 [facility] [id number] [place] [address] 55886- 9605 Aug, [facility] [address] [address]- 8143 Jul, Type 2 diabetes mellitus with diabetic polyneuropathy E11.42 [facility] [address] [place] [address] 10665- 7054 Jul, Type 2 diabetes mellitus with hyperglycemia E11.65 [facility] [id number] [place] [address] 88093- 7396 Jul, [facility] [id number] [place] [address] 70903- 9410 Jul, [facility] [id number] [place] [address] 33966- 4847 Jul, [facility] [id number] [place] [address] 29672- 4639 Jul, Type 2 diabetes mellitus with diabetic polyneuropathy E11.42 and Type 2 diabetes mellitus with hyperglycemia E11.65 [facility] [id number] [address]- 1009 Jun, Obstructive sleep apnea G47.33 [facility] [id number] [place] [address] 82157- 5043 Jun, Type 2 diabetes mellitus with diabetic polyneuropathy E11.42 ; Primary narcolepsy with cataplexy G47.411 ; Abdominal bloating R14.0 ; Other chest pain R07.89 and Vision problems H54.7 [facility] [address] [address]- 7948 Jun, [facility] [address] [address]- 8437 May, [facility] [id number] [place] [address] 82832- 1498 Apr, [facility] [id number] [place] [address] 37214- 5995 Apr, Plantar fasciitis of left foot M72.2 [facility] [id number] [place] [address] 05755- 6536 Mar, [facility] [address] 40137- 1057 Mar, Plantar fasciitis of left foot M72.2 and Type 2 diabetes mellitus with diabetic polyneuropathy E11.42 [place] [address] 33809- 6961 Feb, Type 2 diabetes mellitus with hyperglycemia E11.65 ; Mixed hyperlipidemia E78.2 and Encounter for immunization Z23 [facility] [id number] [place] [address] 77527- 8870 Feb, [place] [address] 32616- 2154 Feb, [place] [address] 18339- 7449 Feb, Type 2 diabetes mellitus with hyperglycemia E11.65 [place] [id number] [place] [address] 49392- 9243 Feb, Type 2 diabetes mellitus with hyperglycemia E11.65 [place] [id number] [place] [address] 10983- 7531 Jan, [place] [id number] [place] [address] 17226- 1416 Dec, Pain in left foot M79.672 ; Other chronic pain G89.29 ; Type 2 diabetes mellitus with hyperglycemia E11.65 ; Obstructive sleep apnea G47.33 ; Falls frequently R29.6 ; Mixed hyperlipidemia E78.2 and Gastroesophageal reflux disease with esophagitis K21.0 [place] [id number] [place] [address] 55444- 8798 Nov, [place] [id number] [place] [address] 18101- 5047 Oct, Type 2 diabetes mellitus with diabetic polyneuropathy E11.42 [facility] [address] [place] [address]- 9351 Oct, [facility] [address] 0177 Oct, [facility] [address] 5225 September, [facility] [address] 5545 September, [facility] [address] [address]- 7967 September, [facility] [address] [place] [address] 096808- 0032 September, [facility] [address] [address]- 7588 September, [facility] [address] [address]- 4847 Aug, Type 2 diabetes mellitus with hyperglycemia E11.65 ; Mixed hyperlipidemia E78.2 and Right carpal tunnel syndrome G56.01 [facility] [address] [address]- 6381 Aug, [facility] [address] [address]- 7986 Jul, [facility] [address] [address]- 9937 Jun, [facility] [address] [address]- 0185 Jun, [facility] [address] [address]- 7782 May, [facility] [address] 0825 May, [facility] [id number] [address]- 6020 May, Type 2 diabetes mellitus with hyperglycemia E11.65 and Falls E888.9 [facility] [id number] [place] [address] 70158- 0777 Apr, Type 2 diabetes mellitus with hyperglycemia E11.65 [facility] [id number] [place] [address] 31618- 7338 Apr, [facility] [id number] [place] [address] 89829- 1820 Apr, Type 2 diabetes mellitus with hyperglycemia E11.65 [facility] [id number] [place] [address] 11459- 4888 Apr, [facility] [address] 46184- 0852 Mar, Type 2 diabetes mellitus with diabetic polyneuropathy E11.42 ; Bilateral low back pain without sciatica M54.5 and Dry nose J34.89 [facility] [id number] [place] [address] 17071- 4492 Mar, Palpitations R00.2 ; Syncope R55 ; DM (diabetes mellitus) E11.9 and Obesity E66.9 [facility] [id number] [place] [address] 97748- 2371 Mar, [facility] [id number] [place] [address] 51807- 3363 Mar, [facility] [id number] [place] [address] 25732- 4976 Mar, [facility] [id number] [place] [address] 41653- 6318 Feb, [facility] [id number] [place] [address] 07891- 6983 Jan, [facility] [id number] [place] [address] 87064- 0890 Jan, [facility] [id number] [place] [address] 15861- 6144 Jan, Falls E888.9 and Sinusitis 473.9 [facility] [id number] [place] [address] 10026- 1554 Dec, [facility] [id number] [place] [address] 51874- 6014 Dec, [facility] [id number] [place] [address] 81958- 4364 Dec, [facility] [id number] [place] [address] 42476- 9672 Dec, [facility] [id number] [place] [address] 14210- 5947 Dec, Diabetes mellitus without mention of complication, type II or unspecified type, not stated as uncontrolled 250.00 and Shortness of breath 786.05 [place] [id number] [place] [address] 58669- 4024 Dec, [facility] [id number] [place] [address] 78181- 2766 Nov, [facility] [id number] [place] [address] 55269- 3503 Nov, [facility] [id number] [place] [address] 58366- 4524 Oct, Restrictive lung disease 518.89 [place] [id number] [place] [address] 03702- 9111 Oct, [facility] [id number] [place] [address] 27218- 5135 Oct, Shortness of breath 786.05 [place] [id number] [place] [address] 68902- 3862 September, Other nonspecific abnormal finding of lung field 793.19 ; Diabetes mellitus without mention of complication, type II or unspecified type, not stated as uncontrolled 250.00 ; Hyperlipidemia LDL goal < 100 272.4 ; Narcolepsy, with cataplexy 347.01 ; Shortness of breath 786.05 and Chest pain 786.50 [facility] [place] [facility] [address] [id number] [place] [address]- 6886 14 Aug, 2014 [facility] [place] [facility] [address] [id number] [place] [address]- 5686 13 Aug, 2014 [facility] [place] [facility] [id number] [place] [address]- 8523 16 Jun, 2014 [facility] [place] [facility] [address] [id number] [place] [address]- 7264 Jun, 2014 [facility] [place] [facility] [address] [facility] [id number] [place] [address]- 0333 Jun, 2014 [facility] [place] [facility] [id number] [place] [address]- 3005 Jun, 2014 [facility] [place] [facility] [address] [place] [address]- 2712 Jun, 2014 [facility] [place] [facility] [address] [facility] [id number] [place] [address]- 5200 Jun, 2014 [facility] [place] [facility] [id number] [place] [address]- 4674 Jun, 2014 [facility] [place] [facility] [address] [place] [address]- 3043 Jun, [facility] [place] [facility] [address] [address]- 3414 May, [facility] [place] [facility] [id number] [address]- 9080 May, [facility] [place] [facility] [address] [address]- 7914 Apr, [facility] [place] [facility] [address] [facility] [id number] [address]- 0706 Apr, [facility] [place] [facility] [id number] [address]- 4739 Mar, [facility] [place] [facility] [address] [id number] [place] [address]- 2683 Mar, [facility] [place] [facility] [address] [id number] [place] [address]- 7087 Mar, [facility] [place] [facility] [address] [id number] [place] [address]- 0261 Mar, [facility] [place] [facility] [address] [id number] [place] [address]- 8388 Nov, [facility] [place] [facility] [address] [id number] [place] [address]- 9188 Nov, [facility] [place] [facility] [address] [id number] [place] [address]- 9682 Nov, [facility] [place] [facility] [address] [id number] [place] [address]- 0444 Nov, [facility] [place] [facility] [address] [id number] [place] [address]- 5054 Oct, [facility] [place] [facility] [address] [id number] [place] [address]- 6047 Oct, [facility] [place] [facility] [address] [id number] [place] [address]- 6137 Oct, [facility] [place] [facility] [address] [id number] [place] [address]- 6703 Oct, [facility] [place] [facility] [address] [id number] [place] [address]- 7893 Oct, [facility] [place] [facility] [address] [id number] [place] [address]- 0369 Oct, [facility] [place] [facility] [address] [id number] [place] [address]- 3548 Oct, [facility] [place] [facility] [address] [id number] [place] [address]- 5896 Oct, [facility] [place] [facility] [address] [id number] [place] [address]- 6017 Oct, [facility] [place] [facility] [address] [id number] [place] [address]- 8514 Oct, [facility] [place] [facility] [address] [id number] [place] [address]- 0235 September, [facility] [place] [facility] [address] [id number] [place] [address]- 6420 September, [facility] [place] [facility] [address] [id number] [place] [address]- 5963 Aug, [facility] [place] [facility] [address] [id number] [place] [address]- 7388 Aug, [facility] [place] [facility] [address] [id number] [place] [address]- 3171 Aug, [facility] [place] [facility] [address] [id number] [place] [address]- 7129 Aug, [facility] [place] [facility] [address] [id number] [place] [address]- 7663 Aug, [facility] [place] [facility] [address] [id number] [place] [address]- 3740 Aug, [facility] [place] [facility] [address] [id number] [place] [address]- 2149 Jul, [facility] [place] [facility] [address] [id number] [place] [address]- 8118 Jul, [facility] [place] [facility] [address] [id number] [place] [address]- 4531 Jul, [facility] [place] [facility] [address] [id number] [place] [address] Jul, [facility] [place] [facility] [address] [id number] [place] [address] Jul, [facility] [place] [facility] [address] [id number] [place] [address] Jul, [facility] [place] [facility] [address] [id number] [place] [address] Jul, [facility] [place] [facility] [address] [id number] [place] [address] Jul, [facility] [place] [facility] [address] [id number] [place] [address] Jul, [facility] [place] [facility] [address] [id number] [place] [address] Jul, [facility] [place] [facility] [address] [id number] [place] [address] Jul, [facility] [place] [facility] [address] [id number] [place] [address] Jul, [facility] [place] [facility] [address] [id number] [place] [address] Jul, [facility] [place] [facility] [address] [id number] [place] [address] Jul, [facility] [place] [facility] [address] [id number] [place] [address] Jul, [facility] [place] [facility] [address] [id number] [place] [address] Jul, [facility] [place] [facility] [address] [facility] [id number] [place] [address] Jun, [facility] [place] [facility] [address] [id number] [place] [address] Jun, [facility] [place] [facility] [address] [id number] [place] [address] Jun, [facility] [place] [facility] [address] [id number] [place] [address] Jun, [facility] [place] [facility] [address] [id number] [place] [address] Jun, [facility] [place] [facility] [address] [id number] [place] [address] Jun, [facility] [place] [facility] [address] [id number] [place] [address] Jun, [facility] [place] [facility] [address] [id number] [place] [address] 22 Jun, 2013 [facility] [place] [facility] [address] [facility] [id number] [place] [address] 20 Jun, 2013 [facility] [place] [facility] [address] [id number] [place] [address] 20 Jun, 2013 [facility] [place] [facility] [address] [id number] [place] [address] 18 Jun, 2013 [facility] [place] [facility] [address] [facility] [id number] [place] [address] 18 Jun, 2013 [facility] [place] [facility] [address] [facility] [id number] [place] [address] 14 Jun, 2013 [facility] [place] [facility] [address] [id number] [place] [address] 13 Jun, 2013 [facility] [place] [facility] [address] [facility] [id number] [place] [address] 13 Jun, 2013 [facility] [place] [facility] [address] [facility] [id number] [place] [address] 13 Jun, 2013 [facility] [place] [facility] [address] [facility] [id number] [place] [address] 13 Jun, 2013 [facility] [place] [facility] [address] [facility] [id number] [place] [address] 12 Jun, 2013 [facility] [place] [facility] [address] [facility] [id number] [place] [address] 12 Jun, 2013 [facility] [place] [facility] [address] [facility] [id number] [place] [address] 11 Jun, 2013 [facility] [place] [facility] [address] [facility] [id number] [place] [address] Jun, [facility] [place] [facility] [address] [id number] [place] [address] Jun, 2013 [facility] [place] [facility] [address] [id number] [place] [address] Jun, 2013 [facility] [place] [facility] [address] [id number] [place] [address] Jun, 2013 [facility] [place] [facility] [address] [id number] [place] [address] Jun, 2013 [facility] [place] [facility] [address] [id number] [place] [address] Jun, 2013 [facility] [place] [facility] [address] [id number] [place] [address] Jun, 2013 [facility] [place] [facility] [address] [id number] [place] [address] Jun, 2013 [facility] [place] [facility] [address] [id number] [place] [address] Jun, 2013 [facility] [place] [facility] [address] [id number] [place] [address] Jun, [facility] [place] [facility] [address] [id number] [place] [address] May, [facility] [place] [facility] [address] [id number] [place] [address] May, [facility] [place] [facility] [address] [id number] [place] [address] May, [facility] [place] [facility] [address] [id number] [place] [address] May, [facility] [place] [facility] [address] [id number] [place] [address] May, [facility] [place] [facility] [address] [id number] [place] [address] May, [facility] [place] [facility] [address] [id number] [place] [address] 15 May, 2013 [facility] [address] [id number] [place] [address] May, [facility] [place] [facility] [address] [id number] [place] [address] May, [facility] [place] [facility] [address] [id number] [place] [address] May, [facility] [place] [facility] [address] [id number] [place] [address] May, [facility] [place] [facility] [address] [id number] [place] [address] May, [facility] [place] [facility] [address] [id number] [place] [address] May, [facility] [place] [facility] [address] [id number] [place] [address] May, [facility] [place] [facility] [address] [id number] [place] [address] May, [facility] [place] [facility] [address] [id number] [place] [address] Apr, [facility] [place] [facility] [address] [id number] [place] [address] Apr, [facility] [place] [facility] [address] [id number] [place] [address] Dec, [facility] [place] [facility] [address] [id number] [place] [address] Nov, [facility] [place] [facility] [address] [id number] [place] [address] May, [facility] [place] [facility] [address] [id number] [place] [address] Apr, [facility] [place] [facility] [address] [id number] [place] [address] Apr, [facility] [address] [facility] [id number] [place] [address] Apr, [facility] [address] [facility] [id number] [address] Apr, IMMUNIZATIONS No Known Immunizations SOCIAL HISTORY Never Assessed REASON FOR VISIT 1 month diabetes fu -- joanie joseph PLAN OF CARE Activity Details Follow Up 2 Months Reason: VITAL SIGNS Height 64 in 2017-08-14 Weight 200.0 lbs 2017-08-14 Temperature 98.0 degrees Fahrenheit 2017-08-14 Heart Rate 80 bpm 2017-08-14 Respiratory Rate 18 2017-08-14 BMI 34.33 kg/m2 2017-08-14 Blood pressure systolic 138 mmHg 2017-08-14 Blood pressure diastolic 78 mmHg 2017-08-14 MEDICATIONS Medication Instructions Dosage Frequency Start Date End Date Duration Status Famotidine 20 mg Orally twice a day 1 tablet at bedtime 12h 90 days Active Pen [place] 32G X 4 MM as directed Dec, 90 days Active Proventil HFA 108 (90 Base) MCG/ACT Inhalation every 4 hrs 2 puffs as needed 4h Dec, Active NovoLog Flexpen 100 UNIT/ML Subcutaneous 3 times a day 25 units 8h 07 Dec, 2014 Active Test strips Test Strips Contour teststrips directed 12h Dec, Active Gabapentin 300 MG Orally Three times a day 3 capsules 8h 20 Mar, 2015 30 days Not-Taking Carafate 1 GM Orally Twice a day 1 tablet at bedtime on an empty stomach before meals 12h 90 days Not-Taking Atorvastatin Calcium 40 mg Orally Once a day 1 tablet 24h 20 Jun, 2017 90 days Active Calamine - Not-Taking Levemir Flexpen 100 unit/mL (3 mL) subcutaneous 2 times a day 60 units 12h Aug, Active RESULTS No Results PROCEDURES Procedure Date Ordered Result Body Site HOLTER MONITOR (OUTPATIENT) 2017-08-14 Occasional PVCs. INSTRUCTIONS MEDICATIONS ADMINISTERED No Known Medications MEDICAL (GENERAL) HISTORY Type Description Date Medical History asthma Medical History type II diabetes Medical History sleep apnea Medical History narcolepsy Surgical History hysterectomy Hospitalization History Chest pain-[facility] 02/27/17
--- OUTSIDE RECORDS SUMMARY | 2018-03-08 22:58 | XMS REPORT ---
Author Author TAWANA QUINTEN 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 Name Role Phone TAWANA QUINTEN Unavailable PROBLEMS Type Condition ICD9-CM Code WGV21-MC Code Onset Dates Condition Status SNOMED Code Problem Right carpal tunnel syndrome G56.01 Active 51807970 Problem Gastroesophageal reflux disease with esophagitis K21.0 Active 445322006 Problem Falls frequently R29.6 Active 716596510 Problem Porokeratosis Q82.8 Active 350251117 Problem Posterior subcapsular age-related cataract of both eyes H25.043 Active 6194427 Problem Non-alcoholic fatty liver disease K76.0 Active 379013532 Problem Delayed gastric emptying K30 Active 434949452 Problem Pain in left foot M79.672 Active 4898205 Problem Other chronic pain G89.29 Active 16212097 Problem Tarsal tunnel syndrome of left side G57.52 Active 10844717 Problem Obesity E66.9 Active 724622368 Problem Hypermetropia, bilateral H52.03 Active 63708164 Problem Type 2 diabetes mellitus with hyperglycemia E11.65 Active 44345172 Problem Nuclear cataract of both eyes H25.13 Active 84418603 Problem Presbyopia OU H52.4 Active 81913010 Problem Obstructive sleep apnea G47.33 Active 11037231 Problem Shortness of breath R06.02 Active 488442545 Problem Type 2 diabetes mellitus with diabetic polyneuropathy E11.42 Active 67157695 Problem Lung nodule R91.1 Active 560750385 Problem Mixed hyperlipidemia E78.2 Active 241193705 Problem Primary narcolepsy with cataplexy G47.411 Active 654338094 ALLERGIES No Information ENCOUNTERS Encounter Location Date Diagnosis [facility] [address] [facility] [id number] [address] Nov, Type 2 diabetes mellitus with hyperglycemia E11.65 and Mixed hyperlipidemia E78.2 [facility] [address] [address] 0[address] Nov, [facility] [id number] [place] [address] 29902- 9785 Oct, [facility] [id number] [place] [address] 02855- 0605 Oct, [facility] [id number] [place] [address] 68865- 9226 September, [facility] [id number] [place] [address] 18625- 5547 September, Type 2 diabetes mellitus with hyperglycemia E11.65 [facility] [id number] [place] [address] 76155- 9597 September, Type 2 diabetes mellitus with hyperglycemia E11.65 [facility] [id number] [place] [address] 51074- 0678 September, Porokeratosis Q82.8 and Type 2 diabetes mellitus with diabetic polyneuropathy E11.42 [facility] [id number] [place] [address] 93431 -8686 Aug, Seasonal allergic rhinitis, unspecified trigger J30.2 [facility] [address] [address] 5930 Aug, [facility] [id number] [place] [address] 60927- 7953 Aug, [facility] [id number] [place] [address] [id number] Aug, Dental examination V72.2 and Dental examination Z01.20 [facility] [id number] [place] [address] 55298- 4668 Aug, Dental examination Z01.20 and Dental caries K02.9 [facility] [id number] [place] [address] 83091- 8472 Aug, Obstructive sleep apnea G47.33 ; Obesity E66.9 ; Type 2 diabetes mellitus with hyperglycemia E11.65 ; Palpitations R00.2 and Corns and callosities L84 [address] 03304- 0604 Jul, [place] [address] [address]- 0109 Jul, [address] 38939- 1672 Jun, Type 2 diabetes mellitus with hyperglycemia E11.65 ; Colon cancer screening Z12.11 ; Mixed hyperlipidemia E78.2 ; Non-alcoholic fatty liver disease K76.0 ; Gastroesophageal reflux disease with esophagitis K21.0 and Pain of upper abdomen R10.[address] 43883- 9379 09 Jun, 2017 Falls frequently R29.6 [facility] [address] [address] -0406 May, Infection of nose J34.[address] 71609- 8542 May, Bilateral low back pain without sciatica M54.[address] 26624- 1026 May, Type 2 diabetes mellitus with diabetic polyneuropathy E11.42 ; Obstructive sleep apnea G47.33 and Type 2 diabetes mellitus with hyperglycemia E11.[address] 97539- 2566 Apr, Bilateral low back pain without sciatica M54.[address] 71697- 3424 Apr, Mixed hyperlipidemia E78.2 and Type 2 diabetes mellitus with hyperglycemia E11.65 [place] [address] 87222- 1386 Apr, Type 2 diabetes mellitus with diabetic polyneuropathy E11.42 [facility] [id number] [place] [address] 73651- 1816 Apr, [place] [address] 31669- 3180 Apr, Skin lesion of left arm L98.9 and Skin lesion of left leg L98.9 [place] [address] 88462- 5479 Mar, Bilateral low back pain without sciatica M54.5 [place] [address] 78855- 9084 Mar, Plantar fasciitis of left foot M72.2 ; Bursitis of left foot M71.572 and Type 2 diabetes mellitus with diabetic polyneuropathy E11.42 [place] [id number] [place] [address] 03591- 6127 Feb, Non-alcoholic fatty liver disease K76.0 ; Keratoacanthoma L85.8 ; Seborrheic keratosis L82.1 ; Type 2 diabetes mellitus with hyperglycemia E11.65 and Nuclear cataract of both eyes H25.13 [facility] [address] [id number] Feb, [place] [id number] [place] [address] 87038- 5230 Feb, [place] [id number] [place] [address] 36174- 5254 Feb, [facility] [id number] [place] [address] 34920- 0537 Feb, Type 2 diabetes mellitus with hyperglycemia E11.65 ; Back muscle spasm M62.830 and Encounter for immunization Z23 [place] [address] 26162- 4664 08 Jan, 2017 Plantar fasciitis of left foot M72.2 [facility] [id number] [place] [address] 92223- 1832 Dec, [place] [id number] [place] [address] 56822- 5221 Dec, Plantar fasciitis of left foot M72.2 and Tarsal tunnel syndrome of left side G57.52 [facility] [id number] [place] [address] 77139- 1240 Dec, [facility] [id number] [place] [address] 74211 -7806 Nov, Mary Jane rash of groin B37.89 and Rash and nonspecific skin eruption R21 [place] [id number] [place] [address] 26013- 2788 Nov, [place] [id number] [place] [address] 85218- 8979 Oct, Type 2 diabetes mellitus with hyperglycemia E11.65 and Mixed hyperlipidemia E78.2 [place] [address] [id number] [place] [address] 43010- 5033 Oct, [place] [id number] [place] [address] 78827- 3653 Oct, Chest pain, unspecified R07.9 ; Palpitations R00.2 ; Syncope R55 and Mixed hyperlipidemia E78.2 [place] [id number] [place] [address] 74563- 6893 Oct, Plantar fasciitis, bilateral M72.2 and Type 1 diabetes mellitus with diabetic neuropathy E10.40 [place] [address] [id number] [place] [address] 95844- 6902 Oct, [place] [id number] [place] [address] 40587- 1923 September, Type 2 diabetes mellitus with hyperglycemia E11.65 [place] [id number] [place] [address] 46646- 6640 September, Type 2 diabetes mellitus with hyperglycemia E11.65 ; Type 2 diabetes mellitus with diabetic polyneuropathy E11.42 ; Gastroesophageal reflux disease with esophagitis K21.0 and Headache, unspecified headache type R51 [facility] [address] [address]- 3562 September, [facility] [id number] [place] [address] 84556- 6811 September, [facility] [id number] [place] [address] 50002- 8754 September, [facility] [id number] [place] [address] 58356- 7305 September, Other chest pain R07.89 ; Heart palpitations R00.2 ; Mixed hyperlipidemia E78.2 and Obesity E66.9 [facility] [id number] [place] [address] 10954- 9294 Aug, [facility] [id number] [place] [address] 28111- 9477 Aug, Type 2 diabetes mellitus with diabetic polyneuropathy E11.42 and Type 2 diabetes mellitus with hyperglycemia E11.65 [facility] [address] [address]- 2263 Aug, [facility] [id number] [place] [address] 54193- 3361 Aug, [facility] [address] [address]- 7034 Aug, [facility] [id number] [place] [address] 62054- 2211 Aug, Type 2 diabetes mellitus with hyperglycemia E11.65 [facility] [address] [address]- 7318 Aug, [facility] [id number] [place] [address] 67136- 0796 Jul, Type 2 diabetes mellitus with diabetic polyneuropathy E11.42 [facility] [address] [address]- 8901 Jul, Type 2 diabetes mellitus with hyperglycemia E11.65 [facility] [id number] [place] [address] 38506- 7215 Jul, [facility] [id number] [place] [address] 13887- 4346 Jul, [facility] [id number] [place] [address] 78157- 2929 Jul, [facility] [id number] [place] [address] 82980- 4912 Jul, Type 2 diabetes mellitus with diabetic polyneuropathy E11.42 and Type 2 diabetes mellitus with hyperglycemia E11.65 [facility] [id number] [place] [address] 57086- 9734 Jun, Obstructive sleep apnea G47.33 [facility] [id number] [place] [address] 50416- 9368 Jun, Type 2 diabetes mellitus with diabetic polyneuropathy E11.42 ; Primary narcolepsy with cataplexy G47.411 ; Abdominal bloating R14.0 ; Other chest pain R07.89 and Vision problems H54.7 [facility] [id number] [place] [address] 51368- 0852 Jun, [facility] [id number] [place] [address] 35231- 1183 May, [facility] [id number] [place] [address] 63493- 4881 Apr, [facility] [id number] [place] [address] 86130- 5579 Apr, Plantar fasciitis of left foot M72.2 [facility] [id number] [place] [address] 16555- 9120 Mar, [facility] [id number] [place] [address] 97432- 7415 Mar, Plantar fasciitis of left foot M72.2 and Type 2 diabetes mellitus with diabetic polyneuropathy E11.42 [place] [id number] [place] [address] 54532- 1759 14 Feb, 2016 Type 2 diabetes mellitus with hyperglycemia E11.65 ; Mixed hyperlipidemia E78.2 and Encounter for immunization Z23 [facility] [id number] [place] [address] 10951- 4015 Feb, [facility] [id number] [place] [address] 44145- 4729 Feb, [facility] [id number] [place] [address] 56443- 3200 Feb, Type 2 diabetes mellitus with hyperglycemia E11.65 [place] [address] 21863- 5404 Feb, Type 2 diabetes mellitus with hyperglycemia E11.65 [place] [id number] [place] [address] 72127- 7397 Jan, [place] [address] [place] [address] [id number] [place] [address] 13043- 7235 Dec, Pain in left foot M79.672 ; Other chronic pain G89.29 ; Type 2 diabetes mellitus with hyperglycemia E11.65 ; Obstructive sleep apnea G47.33 ; Falls frequently R29.6 ; Mixed hyperlipidemia E78.2 and Gastroesophageal reflux disease with esophagitis K21.0 [place] [id number] [place] [address] 75100- 8557 Nov, [place] [id number] [place] [address] 75798- 5880 Oct, Type 2 diabetes mellitus with diabetic polyneuropathy E11.42 [place] [id number] [place] [address] 26139- 3231 Oct, [place] [id number] [place] [address] 76609- 2935 Oct, [place] [id number] [place] [address] 41198- 6001 September, [place] [address] [address]- 3067 September, [facility] [address] [address]- 4003 September, [facility] [address] [address]- 6166 September, [facility] [id number] [place] [address] 87930- 6046 September, [facility] [address] [address]- 0148 Aug, Type 2 diabetes mellitus with hyperglycemia E11.65 ; Mixed hyperlipidemia E78.2 and Right carpal tunnel syndrome G56.01 [facility] [address] [address]- 1884 Aug, [facility] [address] [address]- 2544 Jul, [facility] [address] [address]- 4352 Jun, [facility] [address] [address]- 9997 Jun, [facility] [address] [address]- 9540 May, [facility] [address] [address]- 8859 May, [facility] [id number] [address]- 1960 May, Type 2 diabetes mellitus with hyperglycemia E11.65 and Falls E888.9 [facility] [address] [address]- 7882 Apr, Type 2 diabetes mellitus with hyperglycemia E11.65 [facility] [address] [address]- 1100 Apr, [facility] [id number] [place] [address] 88588- 3651 Apr, Type 2 diabetes mellitus with hyperglycemia E11.65 [facility] [id number] [place] [address] 75706- 6535 Apr, [facility] [id number] [place] [address] 68257- 0986 Mar, Type 2 diabetes mellitus with diabetic polyneuropathy E11.42 ; Bilateral low back pain without sciatica M54.5 and Dry nose J34.89 [facility] [id number] [place] [address] 49569- 7053 Mar, Palpitations R00.2 ; Syncope R55 ; DM (diabetes mellitus) E11.9 and Obesity E66.9 [facility] [id number] [place] [address] 38850- 7664 Mar, [facility] [address] 41234- 3406 Mar, [facility] [address] [id number] [place] [address] 24057- 6808 Mar, [facility] [id number] [place] [address] 44258- 0257 Feb, [facility] [id number] [place] [address] 88082- 9011 Jan, [facility] [id number] [place] [address] 55160- 5402 Jan, [facility] [id number] [place] [address] 23423- 6095 Jan, Falls E888.9 and Sinusitis 473.9 [facility] [id number] [place] [address] 13910- 2000 Dec, [facility] [id number] [place] [address] 74439- 4690 Dec, [facility] [address] [place] [address]- 6062 Dec, [facility] [id number] [place] [address] 69728- 8172 Dec, [facility] [address] [id number] [place] [address] 31746- 3046 Dec, Diabetes mellitus without mention of complication, type II or unspecified type, not stated as uncontrolled 250.00 and Shortness of breath 786.05 [facility] [id number] [place] [address] 04886- 7122 Dec, [facility] [address] [id number] [place] [address] 64583- 3964 Nov, [facility] [id number] [place] [address] 78625- 7221 Nov, [facility] [id number] [place] [address] 29253- 1258 Oct, Restrictive lung disease 518.89 [facility] [address] [id number] [place] [address] 59824- 4933 Oct, [facility] [id number] [place] [address] 94156- 6203 Oct, Shortness of breath 786.05 [facility] [address] [id number] [place] [address] 86199- 2347 September, Other nonspecific abnormal finding of lung field 793.19 ; Diabetes mellitus without mention of complication, type II or unspecified type, not stated as uncontrolled 250.00 ; Hyperlipidemia LDL goal < 100 272.4 ; Narcolepsy, with cataplexy 347.01 ; Shortness of breath 786.05 and Chest pain 786.50 [facility] [id number] [place] [address] 75416- 5713 Aug, [facility] [address] [id number] [place] [address] 08858- 0822 Aug, [facility] [id number] [place] [address] 42271- 4348 Jun, 2014 [facility] [place] [facility] [address] [id number] [place] [address]- 4988 Jun, 2014 [facility] [place] [facility] [address] [id number] [place] [address]- 4036 Jun, 2014 [facility] [place] [facility] [address] [id number] [place] [address]- 4476 Jun, 2014 [facility] [place] [facility] [address] [id number] [place] [address]- 5258 Jun, 2014 [facility] [place] [facility] [address] [id number] [place] [address]- 6939 Jun, 2014 [facility] [place] [facility] [address] [facility] [id number] [place] [address]- 5361 Jun, 2014 [facility] [place] [facility] [address] [facility] [place] [id number] [place] [address]- 0189 Jun, 2014 [facility] [place] [facility] [address] [facility] [id number] [place] [address]- 5913 May, [facility] [place] [facility] [address] [facility] [id number] [place] [address]- 2130 May, [facility] [place] [facility] [address] [facility] [place] [id number] [place] [address]- 5581 Apr, [facility] [place] [facility] [address] [id number] [place] [address]- 9881 Apr, [facility] [place] [facility] [address] [facility] [place] [id number] [place] [address]- 2247 Mar, [facility] [place] [facility] [address] [id number] [place] [address]- 8133 Mar, [facility] [place] [facility] [address] [facility] [place] [id number] [place] [address]- 5863 Mar, [facility] [place] [facility] [address] [facility] [place] [id number] [place] [address]- 0124 Mar, [facility] [place] [facility] [address] [id number] [place] [address]- 9153 Nov, [facility] [place] [facility] [address] [id number] [place] [address]- 2225 Nov, [facility] [place] [facility] [address] [id number] [place] [address]- 9535 Nov, [facility] [place] [facility] [address] [id number] [place] [address]- 9935 Nov, [facility] [place] [facility] [address] [id number] [place] [address]- 9750 Oct, [facility] [place] [facility] [address] [id number] [place] [address]- 8465 Oct, [facility] [place] [facility] [address] [id number] [place] [address]- 0277 Oct, [facility] [place] [facility] [address] [id number] [place] [address]- 4665 Oct, [facility] [place] [facility] [address] [id number] [place] [address]- 3744 Oct, [facility] [place] [facility] [address] [id number] [place] [address]- 5341 Oct, [facility] [place] [facility] [address] [id number] [place] [address]- 7182 Oct, [facility] [place] [facility] [address] [id number] [place] [address]- 5883 Oct, [facility] [place] [facility] [address] [id number] [place] [address]- 6980 Oct, [facility] [place] [facility] [address] [id number] [place] [address]- 8256 Oct, [facility] [place] [facility] [address] [id number] [place] [address]- 0070 September, [facility] [place] [facility] [address] [id number] [place] [address]- 5335 September, [facility] [place] [facility] [address] [id number] [place] [address]- 4696 Aug, [facility] [place] [facility] [address] [id number] [place] [address]- 3036 Aug, [facility] [place] [facility] [address] [id number] [place] [address]- 4334 Aug, [facility] [place] [facility] [address] [id number] [place] [address] Aug, [facility] [place] [facility] [address] [id number] [place] [address] Aug, [facility] [place] [facility] [address] [id number] [place] [address] Aug, [facility] [place] [facility] [address] [id number] [place] [address] Jul, [facility] [place] [facility] [address] [id number] [place] [address] Jul, [facility] [place] [facility] [address] [id number] [place] [address] Jul, [facility] [place] [facility] [address] [id number] [place] [address] Jul, [facility] [place] [facility] [address] [id number] [place] [address] Jul, [facility] [place] [facility] [address] [id number] [place] [address] Jul, [facility] [place] [facility] [address] [id number] [place] [address] Jul, [facility] [place] [facility] [address] [id number] [place] [address] Jul, [facility] [place] [facility] [address] [id number] [place] [address] Jul, [facility] [place] [facility] [address] [id number] [place] [address] Jul, [facility] [place] [facility] [address] [id number] [place] [address] Jul, [facility] [place] [facility] [address] [id number] [place] [address] Jul, [facility] [place] [facility] [address] [id number] [place] [address] Jul, [facility] [place] [facility] [address] [id number] [place] [address] Jul, [facility] [place] [facility] [address] [id number] [place] [address] Jul, [facility] [place] [facility] [address] [facility] [place] [id number] [place] [address] Jul, [facility] [place] [facility] [address] [id number] [place] [address] Jun, [facility] [place] [facility] [address] [id number] [place] [address] Jun, [facility] [place] [facility] [address] [facility] [place] [id number] [place] [address] Jun, [facility] [place] [facility] [address] [facility] [place] [id number] [place] [address] Jun, [facility] [place] [facility] [address] [id number] [place] [address] Jun, [facility] [place] [facility] [address] [id number] [place] [address] Jun, [facility] [place] [facility] [address] [id number] [place] [address] Jun, [facility] [place] [facility] [address] [facility] [place] [id number] [place] [address] Jun, [facility] [place] [facility] [address] [facility] [place] [id number] [place] [address] 20 Jun, 2013 [facility] [place] [facility] [address] [id number] [place] [address] 20 Jun, 2013 [facility] [place] [facility] [address] [id number] [place] [address] 18 Jun, 2013 [facility] [place] [facility] [address] [facility] [place] [id number] [place] [address] 18 Jun, 2013 [facility] [place] [facility] [address] [id number] [place] [address] 14 Jun, 2013 [facility] [place] [facility] [address] [id number] [place] [address] 13 Jun, 2013 [facility] [place] [facility] [address] [facility] [place] [id number] [place] [address] 13 Jun, 2013 [facility] [place] [facility] [address] [facility] [place] [id number] [place] [address] 13 Jun, 2013 [facility] [place] [facility] [address] [facility] [place] [id number] [place] [address] 13 Jun, 2013 [facility] [place] [facility] [address] [facility] [place] [id number] [place] [address] 12 Jun, 2013 [facility] [place] [facility] [address] [facility] [place] [id number] [place] [address] 12 Jun, 2013 [facility] [place] [facility] [address] [facility] [place] [id number] [place] [address] 11 Jun, 2013 [facility] [place] [facility] [address] [facility] [place] [id number] [place] [address] 11 Jun, 2013 [facility] [place] [facility] [address] [facility] [place] [id number] [place] [address] 10 Jun, 2013 [facility] [place] [facility] [address] [facility] [place] [id number] [place] [address] 07 Jun, 2013 [facility] [place] [facility] [address] [facility] [place] [facility] [id number] [place] [address] Jun, [facility] [place] [facility] [address] [id number] [place] [address] Jun, [facility] [place] [facility] [address] [id number] [place] [address] Jun, [facility] [place] [facility] [address] [id number] [place] [address] Jun, [facility] [place] [facility] [address] [id number] [place] [address] Jun, [facility] [place] [facility] [address] [id number] [place] [address] Jun, [facility] [place] [facility] [address] [id number] [place] [address] Jun, [facility] [place] [facility] [address] [facility] [place] [id number] [address] May, [facility] [place] [facility] [address] [id number] [address] May, [facility] [place] [facility] [address] [facility] [place] [id number] [place] [address] May, [facility] [place] [facility] [address] [facility] [place] [id number] [place] [address] May, [facility] [place] [facility] [address] [id number] [address] May, [facility] [place] [facility] [address] [id number] [address] May, [facility] [place] [facility] [address] [id number] [address] May, [facility] [place] [facility] [address] [facility] [place] [id number] [address] May, [facility] [place] [facility] [address] [facility] [place] [facility]] [id number] [address] May, [facility] [place] [facility] [address] [facility] [place]] [id number] [place] [address] May, [facility] [address] [facility] [place]] [id number] [address] May, [facility] [address] [facility] [place]] [id number] [place] [address]- [address] May, [facility] [address] [facility] [place]] [id number] [place] [address]- [address] May, [facility] [address] [facility] [place] [facility]] [id number] [place] [address]- [address] May, [facility] [address] [facility] [place]] [id number] [place] [address] May, [facility] [address] [facility] [place] [facility]] [id number] [place] [address] Apr, [facility] [address] [facility] [place]] [id number] [address] Apr, [facility] [address] [facility] [place] [place]] [id number] [place] [address] Dec, [facility] [address] [facility] [place] [place]] [id number] [place] [address] Nov, [facility] [address] [facility] [place] [place]] [id number] [place] [address] May, [facility] [address] [facility] [place] [place]] [id number] [address] Apr, [facility] [address] [facility] [place] [place]] [id number] [place] [address] Apr, [facility] [address] [facility] [place]] [id number] [place] [address] Apr, [facility] [address] [facility] [place] [id number] [place] [address] Apr, IMMUNIZATIONS No Known Immunizations SOCIAL HISTORY Never Assessed REASON FOR VISIT PALS IN-Insulins PLAN OF CARE VITAL SIGNS MEDICATIONS No Known Medications RESULTS No Results PROCEDURES No Known procedures INSTRUCTIONS MEDICATIONS ADMINISTERED No Known Medications MEDICAL (GENERAL) HISTORY Type Description Date Medical History asthma Medical History type II diabetes Medical History sleep apnea Medical History narcolepsy Surgical History hysterectomy Hospitalization History Chest pain-[facility] 02/27/17
--- OUTSIDE RECORDS SUMMARY | 2018-03-08 23:14 | XMS REPORT | Continuity of Care Document ---
Author Author Formerly [facility] Address Unknown Phone Unavailable Allergies Active Description Code Type Severity Reaction Onset Reported/Identified Relationship to Patient Clinical Status Yes erythromycin Drug Allergy N/ A N/A 10/01/2008 Yes Penicillins Drug Allergy N/A N/A 10/01/2008 Yes erythromycin Drug Allergy 10/01/2008 Yes Penicillins Drug Allergy 10/01/2008 Yes Penicillins [id number] Drug Allergy Severe SWELLING IN THR 12/01/2017 Medications There is no data. Problems Date Dx Coded Attending Type Code Diagnosis Diagnosed By 12/11/2007 RONEY GALVEZ APRN 053.9 HERPES ZOSTER NOS 12/11/2007 RONEY GALVEZ APRN V72.31 LAUNDRY MACHINE OPERATOR EXAM, ROUTINE 12/11/2007 QUINTEN GILLIAM MD 053.9 HERPES ZOSTER NOS 12/11/2007 QUINTEN GILLIAM MD V72.31 LAUNDRY MACHINE OPERATOR EXAM, ROUTINE 12/11/2007 DAGO CRUZ MD 053.9 HERPES ZOSTER NOS 12/11/2007 DAGO CRUZ MD V72.31 LAUNDRY MACHINE OPERATOR EXAM, ROUTINE 12/11/2007 ROSALINDA BRUNO APRN 053.9 HERPES ZOSTER NOS 12/11/2007 ROSALINDA BRUNO APRN V72.31 LAUNDRY MACHINE OPERATOR EXAM, ROUTINE 12/11/2007 QUINTEN GILLIAM MD 053.9 HERPES ZOSTER NOS 12/11/2007 QUINTEN GILLIAM MD V72.31 LAUNDRY MACHINE OPERATOR EXAM, ROUTINE 12/11/2007 RAMY MANRIQUE DO 053.9 HERPES ZOSTER NOS 12/11/2007 RAMY MANRIQUE DO V72.31 LAUNDRY MACHINE OPERATOR EXAM, ROUTINE 12/11/2007 QUINTEN GILLIAM MD 053.9 HERPES ZOSTER NOS 12/11/2007 QUINTEN GILLIAM MD V72.31 LAUNDRY MACHINE OPERATOR EXAM, ROUTINE 12/11/2007 QUINTEN GILLIAM MD 053.9 HERPES ZOSTER NOS 12/11/2007 QUINTEN GILLIAM MD V72.31 LAUNDRY MACHINE OPERATOR EXAM, ROUTINE 12/11/2007 RODRIGUES DDS, DARRYN 053.9 HERPES ZOSTER NOS 12/11/2007 RODRIGUES DDS, DARRYN V72.31 LAUNDRY MACHINE OPERATOR EXAM, ROUTINE 12/11/2007 ABBEY YIN, SHERON R 053.9 HERPES ZOSTER NOS 12/11/2007 ABBEY YIN, SHERON Curran V72.31 LAUNDRY MACHINE OPERATOR EXAM, ROUTINE 12/11/2007 QUINTEN GILLIAM MD 053.9 HERPES ZOSTER NOS 12/11/2007 QUINTEN GILLIAM MD V72.31 LAUNDRY MACHINE OPERATOR EXAM, ROUTINE 12/11/2007 RODRIGUES DDS, DARRYN 053.9 HERPES ZOSTER NOS 12/11/2007 RODRIGUES DDS, DARRYN V72.31 LAUNDRY MACHINE OPERATOR EXAM, ROUTINE 12/11/2007 QUINTEN GILLIAM MD 053.9 HERPES ZOSTER NOS 12/11/2007 QUINTEN GILLIAM MD V72.31 LAUNDRY MACHINE OPERATOR EXAM, ROUTINE 10/01/2008 RONEY GALVEZ APRN [...] APRN 250.00 DIABETES MELLITUS TYPE 2 04/22/2012 QIUNTEN GILLIAM MD 250.00 DIABETES MELLITUS TYPE 2 04/22/2012 RAMY MANRIQUE DO 250.00 DIABETES MELLITUS TYPE 2 04/22/2012 QUINTEN GILILAM MD 250.00 DIABETES MELLITUS TYPE 2 04/22/2012 [...] HISTORY OF OTHER CARDIOVASCULAR D 06/19/2013 ROSALINDA BRNUO APRN 786.05 SHORTNESS OF BREATH 06/19/2013 QUINTEN [...] GILLIAM MD 782.1 RASH 07/26/2013 GOMEZ BROWNING BANQUET LINE COOK Ot 590.80 PYELONEPHRITIS NOS 07/26/2013 GOMEZ BROWNING [...] TAWANA CLEMONS, QUINTEN N Ot 786.50 11/04/2014 ATWANA CLEMONS, QUINTEN N Ot 553.3 11/04/2014 QUINTEN GILLIAM MD N Ot 571.8 11/04/2014 CESAR IGLLIAM MDY N Ot 793.19 11/04/2014 TAWANA CLEMONS, QUINTEN N Ot 786.50 12/16/2014 TAWANA CLEMONS, QUINTEN N Ot 250.00 12/16/2014 TAWANA CLEMONS, QUINTEN N Ot 793.11 12/16/2014 TAWANA CLEMONS, QUINTEN N Ot V81.5 12/16/2014 TAWANA CLEMONS, QUINTEN N Ot 786.05 12/16/2014 CESAR GILLIAM MDY N Ot 553.3 12/16/2014 CESAR GILLIAM [...] JIMENEZ MD Ot R55 SYNCOPE AND COLLAPSE 07/24/2016 QUINTEN GILLIAM MD Ot R14.0 ABDOMINAL DISTENSION (GASEOUS) 07/24/2016 ARIANA JIMENEZ MD Ot E11.9 TYPE 2 DIABETES MELLITUS WITHOUT COMPLIC 07/24/2016 ARIANA JIMENEZ MD Ot R00.2 PALPITATIONS 07/24/2016 ARIANA JIMENEZ MD Ot R55 SYNCOPE AND COLLAPSE 08/08/2016 QUINTEN GILLIAM MD Ot R14.0 ABDOMINAL DISTENSION (GASEOUS) 09/26/2016 UQINTEN GILLIAM MD Ot 250.00 DIAB UMESH WO [...] CAFE PLACE 01/19/2017 LINDSAY FRASER Ot Z79.4 ALF (CURRENT) USE OF INSULIN 01/19/2017 LINDSAY FRASER [...] CAFE PLACE 01/21/2017 LINDSAY FRASER Ot Z79.4 ALF (CURRENT) USE OF INSULIN 01/21/2017 LINDSAY FRASER [...] Foster Ot R07.89 OTHER CHEST PAIN 02/28/2017 TONY CLEMONS, ARIANA Foster Ot R07.89 OTHER CHEST PAIN 02/28/2017 ADALGISA MARTINEZ MD Ot E11.29 TYPE 2 DIABETES MELLITUS W OTH DIABETIC 02/28/2017 ADALGISA MARTINEZ MD Ot E78.5 HYPERLIPIDEMIA, UNSPECIFIED 02/28/2017 ADALGISA MARTINEZ MD Ot I25.10 ATHSCL HEART DISEASE OF [place] CORONARY 02/28/2017 ADALGISA MARTINEZ MD Ot J45.909 UNSPECIFIED ASTHMA, UNCOMPLICATED 02/28/2017 ADALGISA MARTINEZ MD Ot K21.9 GASTRO-ESOPHAGEAL REFLUX DISEASE WITHOUT 02/28/2017 ADALGISA MARTINEZ MD Ot R06.01 ORTHOPNEA 02/28/2017 ADALGISA MARTINEZ MD Ot R10.11 RIGHT UPPER QUADRANT PAIN 02/28/2017 ADALGISA MARTINEZ MD Ot Z79.4 ALF (CURRENT) USE OF INSULIN 02/28/2017 ADALGISA MARTINEZ MD Ot Z79.899 OTHER ALF (CURRENT) DRUG THERAPY 07/24/2017 DELMA EVANS DO [...] 11/27/2017 QUINTEN GILLIAM MD Ot R00.2 PALPITATIONS 12/01/2017 DELMA EVANS DO Ot Z01.818 ENCOUNTER FOR OTHER PREPROCEDURAL EXAMIN 12/01/2017 DELMA EVANS DO Ot Z12.11 ENCOUNTER FOR SCREENING FOR MALIGNANT NE 12/01/2017 TAWANA MD, QUINTEN N Ot R00.2 PALPITATIONS 12/01/2017 TAWANA CLEMONS, QUINTEN N Ot R00.2 PALPITATIONS 12/01/2017 MAYELIN MONTALVO Ot E11.42 TYPE 2 DIABETES MELLITUS WITH DIABETIC P 12/01/2017 KIESHA MONTALVOIS Ot E78.00 PURE HYPERCHOLESTEROLEMIA, UNSPECIFIED 12/01/2017 BERNKIESHA AGRAWALIS Ot G43.909 MIGRAINE, UNSP, NOT INTRACTABLE, WITHOUT 12/01/2017 BERNKIESHA AGRAWALIS Ot G47.30 SLEEP APNEA, UNSPECIFIED 12/01/2017 KIESHA MONTALVOIS Ot J06.9 ACUTE UPPER RESPIRATORY INFECTION, UNSPE 12/01/2017 KATIA MAYELIN Ot J45.909 UNSPECIFIED ASTHMA, UNCOMPLICATED 12/01/2017 KATIA MAYELIN Ot K21.9 GASTRO-ESOPHAGEAL REFLUX DISEASE WITHOUT 12/01/2017 KIESHA MONTALVOIS Ot R05 COUGH 12/01/2017 MAYELIN MONTALVO Ot Z77.22 CNTCT W AND EXPSR TO ENVIRON TOBACCO SMO 12/01/2017 KIESHA MONTALVOIS Ot Z79.4 ALF (CURRENT) USE OF INSULIN 12/01/2017 KIESHA MONTALVOIS Ot Z79.51 ALF (CURRENT) USE OF INHALED STERO 12/01/2017 KIESHA MONTALVOIS Ot Z80.8 FAMILY HISTORY OF MALIGNANT NEOPLASM OF 12/01/2017 KIESHA MONTALVOIS Ot Z82.49 FAMILY HX OF ISCHEM HEART DIS AND OTH DI 12/01/2017 KIESHA MONTALVOIS Ot Z88.0 ALLERGY STATUS TO PENICILLIN 12/01/2017 KATIA MAYELIN Ot Z90.710 ACQUIRED ABSENCE OF BOTH CERVIX AND UTER 12/03/2017 MAYELIN MONTALVO Ot E11.42 TYPE 2 DIABETES MELLITUS WITH DIABETIC P 12/03/2017 KIESHA MONTALVOIS Ot E78.00 PURE HYPERCHOLESTEROLEMIA, UNSPECIFIED 12/03/2017 LUISAOTKIESHAIS Ot G43.909 MIGRAINE, UNSP, NOT INTRACTABLE, WITHOUT 12/03/2017 KIESHA MONTALVOIS Ot G47.30 SLEEP APNEA, UNSPECIFIED 12/03/2017 BERNKIESHA AGRAWALIS Ot J06.9 ACUTE UPPER RESPIRATORY INFECTION, UNSPE 12/03/2017 KIESHA MONTALVOIS Ot J45.909 UNSPECIFIED ASTHMA, UNCOMPLICATED 12/03/2017 KIESHA MONTALVOIS Ot K21.9 GASTRO-ESOPHAGEAL REFLUX DISEASE WITHOUT 12/03/2017 MAYELIN MONTALVO Ot R05 COUGH 12/03/2017 MAYELIN MONTALVO Ot Z77.22 CNTCT W AND EXPSR TO ENVIRON TOBACCO SMO 12/03/2017 MAYELIN MONTALVO Ot Z79.4 MICA SPLITTER (CURRENT) USE OF INSULIN 12/03/2017 KIESHA MONTALVOIS Ot Z79.51 ALF (CURRENT) USE OF INHALED STERO 12/03/2017 MAYELIN MONTALVO Ot Z80.8 FAMILY HISTORY OF MALIGNANT NEOPLASM OF 12/03/2017 KIESHA MONTALVOIS Ot Z82.49 FAMILY HX OF ISCHEM HEART DIS AND OTH DI 12/03/2017 MAYELIN MONTALVO Ot Z88.0 ALLERGY STATUS TO PENICILLIN 12/03/2017 KIESHA MONTALVOIS Ot Z90.710 ACQUIRED ABSENCE OF BOTH CERVIX AND UTER Procedures Code Description Performed By Performed On DIO CAI 05/14/2013 51600 MICRO ALBUMIN-IN HOUSE 05/14/2013 86458 A1C (IN-HOUSE) 05/14/2013 75826 MICROALBUMIN 05/14/2013 23850 PULMONARY FUNCTION TEST (IN- HOUSE) 06/22/2013 06161 RESPIRATORY FLOW VOLUME LOOP 06/22/[address] CHEST W/DYE 06/23/2013 80429 PULMONARY FUNCTION TEST 06/23/2013 GENERAL S DELMA EVANS 07/31/2013 04884 UA W/ CULTURE IF INDICATED 08/05/2013 72924 ROUTINE VENIPUNCTURE 12/02/2013 85228 TSH 12/02/2013 10162 SLEEP STUDY ([facility]- SLEEP STUDY) 12/02/2013 38093 A1C (IN-HOUSE) 12/02/2013 88089 CBC 12/02/2013 8909552 GFR CALC (RESULT ONLY) 12/02/2013 75108 CMP 12/02/2013 29299 LIPID PANEL 12/02/[address] CHEST W/DYE 06/17/2014 Results Test Result [...] 2 SPECIMENS - 04/12/17 14:13 A SOURCE NRG A GROSS DESCRIPTION NRG A DIAGNOSIS NRG CBC - 04/19/17 12:41 WHITE BLOOD CELL COUNT 7.2 Thousand/uL 3.8-10.8 RED BLOOD CELL COUNT 4.82 Million/uL 3.80-5.10 HEMOGLOBIN 14.4 g/dL 11.7-15.5 HEMATOCRIT 42.1 % 35.0-45.0 MCV 87.3 fL 80.0-100.0 MCH 29.9 pg 27.0-33.0 MCHC 34.2 g/dL 32.0-36.0 RDW 13.1 % 11.0-15.0 PLATELET COUNT 210 Thousand/uL 140-400 MPV 11.9 fL 7.5-12.5 ABSOLUTE NEUTROPHILS 4550 cells/uL 1722-4291 ABSOLUTE LYMPHOCYTES 1973 cells/uL 850-3900 ABSOLUTE MONOCYTES 533 cells/uL 200-950 ABSOLUTE EOSINOPHILS 94 cells/uL 15-500 ABSOLUTE BASOPHILS 50 cells/uL 0-200 NEUTROPHILS 63.2 % NRG LYMPHOCYTES 27.4 % NRG MONOCYTES 7.4 % NRG EOSINOPHILS 1.3 % NRG BASOPHILS 0.7 % NRG Complete blood count (CBC) with automated white blood cell (WBC) differential - 12/01/17 19:45 Blood leukocytes automated count (number/volume) 8.4 10*3/uL 4.3-11.0 Blood erythrocytes automated count (number/volume) 4.72 10*6/uL 4.35-5.85 Venous blood hemoglobin measurement (mass/volume) 13.9 g/dL 11.5-16.0 Blood hematocrit (volume fraction) 41 % 35-52 Automated erythrocyte mean corpuscular volume 87 [foz_us] 80-99 Automated erythrocyte mean corpuscular hemoglobin (mass per erythrocyte) 29 pg 25-34 Automated erythrocyte mean corpuscular hemoglobin concentration measurement ( mass/volume) 34 g/dL 32-36 Automated erythrocyte distribution width ratio 14.0 % 10.0-14.5 Automated blood platelet count (count/volume) 206 10*3/uL 130-400 Automated blood platelet mean volume measurement 11.8 [foz_us] 7.4-10.4 Automated blood neutrophils/100 leukocytes 51 % 42-75 Automated blood lymphocytes/100 leukocytes 35 % 12-44 Blood monocytes/100 leukocytes 10 % 0-12 Automated blood eosinophils/100 leukocytes 3 % 0-10 Automated blood basophils/100 leukocytes 1 % 0-10 Blood neutrophils automated count (number/volume) 4.3 10*3 1.8-7.8 Blood lymphocytes automated count (number/volume) 2.9 10*3 1.0-4.0 Blood monocytes automated count (number/volume) 0.9 10*3 0.0-1.0 Automated eosinophil count 0.3 10*3/uL 0.0-0.3 Automated blood basophil count (count/volume) 0.1 10*3/uL 0.0-0.1 Comprehensive metabolic panel - 12/01/17 19:45 Serum or plasma sodium measurement (moles/volume) 137 mmol/L 135-145 Serum or plasma potassium measurement (moles/volume) 3.7 mmol/L 3.6-5.0 Serum or plasma chloride measurement (moles/volume) 105 mmol/L 98-107 Carbon dioxide 22 mmol/L 21-32 Serum or plasma anion gap determination (moles/volume) 10 mmol/L 5-14 Serum or plasma urea nitrogen measurement (mass/volume) 14 mg/dL 7-18 Serum or plasma creatinine measurement (mass/volume) 0.82 mg/dL 0.60-1.30 Serum or plasma urea nitrogen/creatinine mass ratio 17 NRG Serum or plasma creatinine measurement with calculation of estimated glomerular filtration rate > NRG Serum or plasma glucose measurement (mass/volume) 226 mg/dL 70-105 Serum or plasma calcium measurement (mass/volume) 9.2 mg/dL 8.5-10.1 Serum or plasma total bilirubin measurement (mass/volume) 1.2 mg/dL 0.1-1.0 Serum or plasma alkaline phosphatase measurement (enzymatic activity/volume) 110 U/L 40-136 Serum or plasma aspartate aminotransferase measurement (enzymatic activity/ volume) 20 U/L 5-34 Serum or plasma alanine aminotransferase measurement (enzymatic activity/volume ) 30 U/L 0-55 Serum or plasma protein measurement (mass/volume) 6.9 g/dL 6.4-8.2 Serum or plasma albumin measurement (mass/volume) 4.2 g/dL 3.2-4.5 Encounters ACCT No. Visit Date/Time Discharge Status Pt. Type Provider Facility Loc./Unit Complaint [id number] 06/17/2014 15:42:00 06/17/2014 23:59:59 CLS Outpatient QUINTEN GILLIAM MD [id number] 01/13/2014 16:10:00 01/13/2014 23:59:59 CLS Outpatient DARRYN RODRIGUES DDS [id number] 12/02/2013 09:26:00 12/02/2013 23:59:59 CLS Outpatient QUINTEN GILLIAM MD [id number] 11/02/2013 13:43:00 11/02/2013 23:59:59 CLS Outpatient DARRYN RODRIGUES DDS [id number] 08/05/2013 11:59:00 08/05/2013 23:59:59 CLS Outpatient QUINTEN GILLIAM MD [id number] 07/31/2013 10:41:00 07/31/2013 23:59:59 CLS Outpatient QUINTEN GILLIAM MD [id number] 07/04/2013 12:42:00 07/04/2013 23:59:59 CLS Outpatient BURTON PEREZ RAMY Lakeshia [id number] 06/23/2013 13:34:00 06/23/2013 23:59:59 CLS Outpatient QUINTEN GILLIAM MD [id number] 06/22/2013 15:04:00 06/22/2013 23:59:59 CLS Outpatient ROSALINDA BRUNO APRN [id number] 06/01/2013 16:19:00 06/01/2013 23:59:59 CLS Outpatient DAGO CRUZ MD [id number] 05/14/2013 14:33:00 05/14/2013 23:59:59 CLS Outpatient QUINTEN GILLIAM MD [id number] 11/17/2012 12:46:00 11/17/2012 23:59:59 CLS Outpatient RONEY GALVEZ APRN [id number] 10/01/2008 10:59:00 10/01/2008 23:59:59 CLS Outpatient SHERON POTTER APRN [id number] 12/12/2017 14:00:00 12/12/2017 23:59:59 CLS Outpatient QUINTEN GILLIAM MD [facility] [id number] 04/19/2017 12:00:00 Document Registration [id number] 04/12/2017 10:40:00 Document Registration [id number] 12/01/2017 19:01:00 12/01/2017 20:38:00 DIS Emergency MAYELIN MONTALVO [facility] ER SINUS ISSUES,DRAINAGE [id number] 11/27/2017 11:00:00 11/27/2017 23:59:59 CLS Preadmit QUINTEN GILLIAM MD [facility] CARD R00.2 PALPITATIONS [id number] 08/28/2017 08:28:00 11/26/2017 00:01:00 DIS Outpatient QUINTEN GILLIAM MD [facility] CARD R00.2 PALPITATIONS [id number] 07/30/2017 08:00:00 07/30/2017 23:59:59 CLS Preadmit DELMA EVANS DO [facility] ENDO SCREENING [id number] 07/23/2017 05:42:00 07/23/2017 23:59:59 CLS Outpatient DELMA EVANS DO [facility] PREOP COLONOSCOPY [id number] 02/27/2017 22:55:00 02/28/2017 17:00:00 DIS Inpatient MICHELLE CLEMONS, ADALGISA Curran [facility] 4TH CHEST PAIN;ORTHOPNEA [id number] 01/19/2017 15:18:00 01/19/2017 19:05:00 DIS Emergency LINDSAY FRASER [facility] ER FALL, HIP PAIN [id number] 10/08/2016 13:02:00 10/08/2016 14:06:00 DIS Emergency TOM RANDALL MD [facility] ER HEART RACING [id number] 10/01/2016 07:24:00 10/01/2016 23:59:59 CLS Outpatient ARIANA JIMENEZ MD [facility] CARD R07.89 CHEST PAIN [id number] 09/26/2016 10:05:00 09/26/2016 23:59:59 CLS Outpatient ARIANA JIMENEZ MD [facility] CARD R07.89 OTHER CHEST PAIN [id number] 07/13/2016 08:36:00 07/13/2016 23:59:59 CLS Outpatient QUINTEN GILLIAM MD [facility] CARD ABDOMINAL BLOATING [id number] 04/13/2015 13:35:00 04/13/2015 23:59:59 CLS Outpatient ARIANA JIMENEZ MD [facility] CARD PALPITATIONS,SYNCOPE [id number] 01/24/2015 21:33:00 01/24/2015 23:03:00 DIS Emergency LINDSAY FRASER [facility] ER COUGH, SINUS DRIANAGE [id number] 12/24/2014 15:42:00 12/24/2014 23:59:59 CLS Outpatient GRAYSON KUMAR DO [facility] RT DYSPENA MARIOLA [id number] 10/03/2014 19:46:00 10/03/2014 20:53:00 DIS Emergency NAUN COLEMAN MD [facility] ER L EYE IRRITATION [id number] 09/29/2014 08:12:00 09/29/2014 23:59:59 CLS Outpatient QUINTEN GILLIAM MD [facility] CARD INTERMITTENT CHEST PAIN [id number] 09/27/2014 12:54:00 09/27/2014 23:59:59 CLS Outpatient QUINTEN GILLIAM MD [facility] RAD FOLLOW UP LUNG NODULE [id number] 08/27/2014 19:26:00 08/27/2014 22:21:00 DIS Emergency TOM RANDALL MD [facility] ER R SIDE PAIN [id number] 06/16/2014 19:47:00 06/17/2014 06:35:00 DIS Outpatient QUINTEN GILLIAM MD [facility] SLEEP CATAPLEXY,NARCOLEPSY [id number] 04/05/2014 00:24:00 04/05/2014 01:10:00 DIS Emergency NELY BAUGH MD [facility] ER MULTIPLE COMPLAINTS [id number] 03/22/2014 21:10:00 03/23/2014 17:50:00 DIS Outpatient QUINTEN GILLIAM MD [facility] SLEEP CATAPLEXY, NARCOLEPSY [id number] 07/26/2013 17:49:00 07/26/2013 20:08:00 DIS Emergency BROWNINGGOMEZ APRN [facility] ER MULTIPLE COMPLAINTS [id number] 07/01/2013 15:50:00 07/01/2013 23:59:59 CLS Outpatient QUINTEN GILLIAM MD [facility] RT SOB [id number] 06/26/2013 12:23:00 06/26/2013 23:59:59 CLS Outpatient QUINTEN GILLIAM MD [facility] RAD F/U NODULE [id number] 05/09/2013 21:35:00 05/12/2013 12:20:00 DIS Outpatient CHETAN GRAYSON MD [facility] CATH CP [id number] 04/06/2012 01:18:00 Document Registration [id number] 12/24/2011 10:35:00 Document Registration [id number] 08/20/2011 19:47:00 Document Registration [id number] 03/15/2011 22:51:00 Document Registration [id number] 02/25/2016 07:05:00 Document Registration
[2018-03-08] MEDS ORDERED: NS IV 1000 ML 1,000 ML IV ONE (23:55)
[2018-03-09 00:02] LABS: BASOPHILS # (AUTO) 0.1 10^3/uL (0.0-0.1); BASOPHILS % (AUTO) 1 % (0-10); EOSINOPHILS # (AUTO) 0.1 10^3/uL (0.0-0.3); EOSINOPHILS % (AUTO) 1 % (0-10); HEMATOCRIT 43 % (35-52); LYMPHOCYTES # (AUTO) 3.1 X 10^3 (1.0-4.0); LYMPHOCYTES % (AUTO) 40 % (12-44); MEAN CORPUSCULAR HEMOGLOBIN 28 PG (25-34); MEAN CORPUSCULAR HGB CONC 32 G/DL (32-36); MEAN CORPUSCULAR VOLUME 88 FL (80-99); MEAN PLATELET VOLUME 11.6 FL (7.4-10.4); MONOCYTES # (AUTO) 0.7 X 10^3 (0.0-1.0); MONOCYTES % (AUTO) 8 % (0-12); NEUTROPHILS # (AUTO) 3.9 X 10^3 (1.8-7.8); NEUTROPHILS % (AUTO) 50 % (42-75); PLATELET COUNT 209 10^3/uL (130-400); RED BLOOD COUNT 4.95 10^6/uL (4.35-5.85); RED CELL DISTRIBUTION WIDTH 13.5 % (10.0-14.5); WHITE BLOOD COUNT 7.8 10^3/uL (4.3-11.0)
[2018-03-09 00:20] LABS: PROTHROMBIN TIME PATIENT 12.8 SEC (12.2-14.7)
[2018-03-09 00:30] LABS: ALANINE AMINOTRANSFERASE 24 U/L (0-55); ALBUMIN 4.4 GM/DL (3.2-4.5); ALKALINE PHOSPHATASE 100 U/L (40-136); AMYLASE 37 U/L (25-125); BILIRUBIN,TOTAL 0.9 MG/DL (0.1-1.0); BUN/CREATININE RATIO 16; CALCIUM 10.4 MG/DL (8.5-10.1); CARBON DIOXIDE 25 MMOL/L (21-32); CHLORIDE 103 MMOL/L (98-107); CREATININE SERUM 0.77 MG/DL (0.60-1.30); GFR ESTIMATED > 60; GLUCOSE 202 MG/DL (70-105); LIPASE 9 U/L (8-78); MAGNESIUM 2.4 MG/DL (1.8-2.4); SODIUM 139 MMOL/L (135-145); TOTAL PROTEIN 7.5 GM/DL (6.4-8.2)
[2018-03-09 00:50] LABS: TSH (THYROID ANALYZER) 5.24 UIU/ML (0.35-4.94)
[2018-03-09 01:11] LABS: CREATINE KINASE 75 U/L (29-168)
[2018-03-09 02:32] LABS: BILIRUBIN,URINE NEGATIVE (NEGATIVE); CLARITY,URINE SLIGHTLY CLOUDY; COLOR,URINE YELLOW; GLUCOSE, URINE (UA) NEGATIVE (NEGATIVE); KETONES,URINE NEGATIVE (NEGATIVE); LEUKOCYTE ESTERASE ,URINE NEGATIVE (NEGATIVE); NITRITE,URINE NEGATIVE (NEGATIVE); PH,URINE 5 (5-9); PROTEIN,URINE NEGATIVE (NEGATIVE); UROBILINOGEN,URINE NORMAL (NORMAL)
[2018-03-09 02:39] LABS: BACTERIA,URINE MODERATE /HPF
--- NOTE | 2018-03-09 03:35 | ED General ---
General Chief Complaint: General Problems/Pain Stated Complaint: CHEST AND BILAT ARM HEAVINESS/LETHARGIC/BS 279 Allergies and Home Medications Allergies Coded Allergies: Penicillins (Verified Allergy, Severe, SWELLING IN THROAT, 12/01/17) Home Medications Albuterol Sulfate 6.7 Gm Hfa.aer.ad, 2 PUFF IH Q4H PRN for SHORTNESS OF BREATH, (Reported) Azithromycin 250 Mg Tablet, 250 MG PO UD TAKE 2 TABLETS TODAY, THEN TAKE 1 TABLET DAILY FOR 4 MORE DAYS Prescribed by: MAYELIN MONTALVO on 12/01/172030 Famotidine 20 Mg Tablet, 20 MG PO BID Prescribed by: ADALGISA MARTINEZ on 02/28/171540 Gabapentin 300 Mg Capsule, 600 MG PO TID, (Reported) TAKES 2 (300MG) CAPSULES Insulin Aspart 300 Units/3 Ml Solution, 25 UNITS SQ TIDWM, (Reported) Insulin Detemir 100 Unit/1 Ml Insuln.pen, 50 UNITS PO BID, (Reported) Methylprednisolone 4 Mg Tab.ds.pk, 4 MG PO UD Prescribed by: MAYELIN MONTALVO on 12/01/172030 Pravastatin Sodium 40 Mg Tablet, 40 MG PO HS, (Reported) Sucralfate 1 Gm Tablet, 1 GM PO BID Prescribed by: ADALGISA MARTINEZ on 02/28/171540 Past Auntovs-Hejmtt-Vouowl Hx Patient Social History 2nd Hand Smoke Exposure: Yes Recent Foreign Travel: No Contact w/Someone Who Travel: No Recent Hopitalizations: No Immunizations Up To Date Tetanus Booster (TDap): Unknown PED Vaccines UTD: No Date of Pneumonia Vaccine: Feb 19, 2017 Date of Influenza Vaccine: Feb 19, 2017 Seasonal Allergies Seasonal Allergies: No Past Medical History Surgeries: Yes Cardiac, Hysterectomy Respiratory: Yes Asthma, Sleep Apnea Currently Using CPAP: Yes Cardiac: Yes High Cholesterol Neurological: Yes Headaches /Migraines, Neuropathy Reproductive Disorders: No [employer] History: Hysterectomy Genitourinary: Yes (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) Renal Failure Gastrointestinal: Yes Gastroesophageal Reflux Musculoskeletal: Yes Arthritis Endocrine: Yes Diabetes, Insulin dep HEENT: No Loss of Vision: Denies Hearing Impairment: Denies Cancer: No Psychosocial: Yes (NARCOLEPSY) Integumentary: No Blood Disorders: No Adverse Reaction/Blood Tranf: No Family Medical History Alcoholism 03 FATHER, Onset:Unknown 09 SISTER, Onset:Unknown Bone cancer 09 BROTHER Cancer 09 BROTHER, Onset:30's - 40 Cardiovascular disease 03 FATHER 03 MOTHER Chest pain 03 FATHER, Onset:60 years & older 03 MOTHER, Onset:60 years & older Diabetes mellitus 09 SISTER Family history: Cardiovascular disease 03 FATHER, Onset:Unknown 03 MOTHER, Onset:Unknown 09 BROTHER, Onset:Unknown Family history: Diabetes mellitus 03 FATHER 03 MOTHER, Onset:Unknown 09 BROTHER, Onset:Unknown Heart disease 03 MOTHER, Onset:Unknown 09 BROTHER, Onset:Unknown Seizure disorder 09 BROTHER, Onset:Unknown 09 SISTER, Onset:Unknown Stroke 09 SISTER No Family History of: Abdominal aortic aneurysm [place]'s disease Aphasia Cancer of colon Cataract Congenital heart disease Congestive heart failure Cystic fibrosis Dementia Family history: Allergy Family history: Alzheimer's disease Family history: Arthritis Family history: Asthma Family history: Breast disease Family history: Coronary thrombosis Family history: Gastrointestinal disease Family history: Glaucoma Family history: Hypertension Family history: Osteoporosis Family history: Thyroid disorder Headache Hearing loss Hereditary disease History of - anemia History of - disorder History of - respiratory disease History of drug abuse Human immunodeficiency virus (HIV) seropositivity Hypercholesterolemia Infertile Kidney disease Malignant neoplasm of lung Myocardial infarction Parkinson's disease Prostate cancer Psychotic disorder Tuberculosis Visual impairment Heart Disease, Seizures Physical Exam Vital Signs Capillary Refill : Height, Weight, BMI Height: 5'4.00" Weight: 195lbs. 4.8oz. [id number]; 31.7 BMI Method:Stated Focused Exam Lactate Level 03/09/18 00:12: Lactic Acid Level 1.77 Lactic Acid Level Laboratory Tests Test 03/09/18 00:12 Lactic Acid Level 1.77 MMOL/L (0.50-2.00) Progress/Results/Core Measures Suspected Sepsis SIRS Temperature: Pulse: Respiratory Rate: Laboratory Tests 03/08/18 23:40: White Blood Count 7.8 Blood Pressure / Mean: 03/09/18 00:12: Lactic Acid Level 1.77 Laboratory Tests 03/08/18 23:40: Creatinine 0.77, INR Comment 1.0, Platelet Count 209, Total Bilirubin 0.9 Results/Orders Lab Results Laboratory Tests Test 03/08/18 23:40 03/09/18 00:12 03/09/18 02:20 03/09/18 02:50 Range/Units White Blood Count 7.8 4.3-11.0 10^3/uL Red Blood Count 4.95 4.35-5.85 10^6/uL Hemoglobin 14.0 11.5-16.0 G/DL Hematocrit 43 35-52 % Mean Corpuscular Volume 88 80-99 FL Mean Corpuscular Hemoglobin 28 25-34 PG Mean Corpuscular Hemoglobin Concent 32 32-36 G/DL Red Cell Distribution Width 13.5 10.0-14.5 % Platelet Count 209 130-400 10^3/uL Mean Platelet Volume 11.6 H 7.4-10.4 FL Neutrophils (%) (Auto) 50 42-75 % Lymphocytes (%) (Auto) 40 12-44 % Monocytes (%) (Auto) 8 0-12 % Eosinophils (%) (Auto) 1 0-10 % Basophils (%) (Auto) 1 0-10 % Neutrophils # (Auto) 3.9 1.8-7.8 X 10^3 Lymphocytes # (Auto) 3.1 1.0-4.0 X 10^3 Monocytes # (Auto) 0.7 0.0-1.0 X 10^3 Eosinophils # (Auto) 0.1 0.0-0.3 10^3/uL Basophils # (Auto) 0.1 0.0-0.1 10^3/uL Prothrombin Time 12.8 12.2-14.7 SEC INR Comment 1.0 0.8-1.4 Activated Partial Thromboplast Time 29 24-35 SEC Sodium Level 139 135-145 MMOL/L Potassium Level 4.0 3.6-5.0 MMOL/L Chloride Level 103 98-107 MMOL/L Carbon Dioxide Level 25 21-32 MMOL/L Anion Gap 11 5-14 MMOL/L Blood Urea Nitrogen 12 7-18 MG/DL Creatinine 0.77 0.60-1.30 MG/DL Estimat Glomerular Filtration Rate > 60 BUN/Creatinine Ratio 16 Glucose Level 202 H 70-105 MG/DL Calcium Level 10.4 H 8.5-10.1 MG/DL Corrected Calcium 10.1 8.5-10.1 MG/DL Magnesium Level 2.4 1.8-2.4 MG/DL Total Bilirubin 0.9 0.1-1.0 MG/DL Aspartate Amino Transf (AST/SGOT) 15 5-34 U/L Alanine Aminotransferase (ALT/SGPT) 24 0-55 U/L Alkaline Phosphatase 100 40-136 U/L Total Creatine Kinase 75 29-168 U/L Creatine Kinase MB 1.0 <6.6 NG/ML Troponin I < 0.30 < 0.30 <0.30 NG/ML B-Type Natriuretic Peptide 41.5 <100.0 PG/ML Total Protein 7.5 6.4-8.2 GM/DL Albumin 4.4 3.2-4.5 GM/DL Amylase Level 37 25-125 U/L Lipase 9 8-78 U/L Free Thyroxine 0.90 0.70-1.48 NG/DL TSH [place] Testing 5.24 H 0.35-4.94 UIU/ML Lactic Acid Level 1.77 0.50-2.00 MMOL/L Urine Color YELLOW Urine Clarity SLIGHTLY CLOUDY Urine pH 5 5-9 Urine Specific [place] 1.010 L 1.016-1.022 Urine Protein NEGATIVE NEGATIVE Urine Glucose (UA) NEGATIVE NEGATIVE Urine Ketones NEGATIVE NEGATIVE Urine Nitrite NEGATIVE NEGATIVE Urine Bilirubin NEGATIVE NEGATIVE Urine Urobilinogen NORMAL NORMAL MG/DL Urine Leukocyte Esterase NEGATIVE NEGATIVE Urine RBC (Auto) NEGATIVE NEGATIVE Urine RBC NONE /HPF Urine WBC NONE /HPF Urine Squamous Epithelial Cells 2-5 /HPF Urine Crystals NONE /LPF Urine Bacteria MODERATE H /HPF Urine Casts NONE /LPF Urine Mucus NEGATIVE /LPF Urine Culture Indicated YES Micro Results Microbiology 03/08/18 Influenza Types A,B Antigen (SMITHA) - Final, Complete My Orders Orders - LEONARDO HUERTAS DO Accucheck Stat ONCE (03/08/18 23:55) Saline Lock/Iv-Start (03/08/18 23:55) Ekg Tracing (03/08/18 23:55) Monitor-Rhythm Ecg Trace Only (03/08/18 23:55) Amylase (03/08/18 23:55) BNP (03/08/18 23:55) Cbc With Automated Diff (03/08/18 23:55) Comprehensive Metabolic Panel (03/08/18 23:55) Creatine Kinase (03/08/18 23:55) Creatine Kinase Mb (03/08/18 23:55) Lactic Acid Analyzer (03/08/18 23:55) Lipase (03/08/18 23:55) Magnesium (03/08/18 23:55) Protime With Inr (03/08/18 23:55) Partial Thromboplastin Time (03/08/18 23:55) Thyroid Analyzer (03/08/18 23:55) Troponin I (03/08/18 23:55) Ua Culture If Indicated (03/08/18 23:55) Blood Culture (03/08/18 23:55) Influenza A And B Antigens (03/08/18 23:55) Saline Lock/Iv-Start (03/08/18 23:55) Ns Iv 1000 Ml (Sodium Chloride 0.9%) (03/08/18 23:55) Chest 1 View, Ap/Pa Only (03/09/18 00:01) Free T4 (Free Thyroxine) (03/08/18 23:40) Urine Culture (03/09/18 02:20) Ekg Tracing (03/09/18 02:40) Troponin I (03/09/18 02:40) Medications Given in ED Current Medications Medications Dose Ordered Sig/Arleth Route Start Time Stop Time Status Last Admin Dose Admin Sodium Chloride 1,000 ml @ 0 mls/hr Q0M ONCE IV 03/08/18 23:55 03/08/18 23:57 DC 03/09/18 01:14 1,000 MLS/HR Vital Signs/I&O Capillary Refill : Departure Impression Primary Impression: Chest pain Disposition: HOME, SELF-CARE Condition: Improved Departure-Patient Inst. Referrals: [facility] Patient Instructions: Chest Pain (DC) Add. Discharge Instructions: TAKE YOUR MEDICATIONS PRESCRIBED FOLLOW UP WITH [facility] TOMORROW FOR FURTHER CARE RETURN TO ER IF SYMPTOMS WORSEN All discharge instructions reviewed with patient and/or family. Voiced understanding. LEONARDO HUERTAS DO Mar 09, 2018 03:35
[2018-03-09 04:30] VITALS: BP 95/61
--- NOTE | 2018-03-09 06:29 | Diagnostic Imaging Report ---
EXAMINATION: Portable erect AP chest at 1212 AM INDICATION: Cough and congestion The heart size is within normal limits and stable when compared to 12/01/2017. The lungs are clear. There is no evidence for failure, pneumonia or for a pleural effusion. The mediastinum is not widened. The osseous structures are intact. IMPRESSION: There is no evidence for an acute cardiopulmonary abnormality. Dictated by: Dictated on workstation # [id number]
== END 2018-03-09 04:30 | disposition home or self-care (01) ==
LOC: EDUNIT# 22:38 → ER 22:40
DX: R07.89 Other chest pain (principal); J45.909 Unspecified asthma, uncomplicated; G47.30 Sleep apnea, unspecified; E78.00 Pure hypercholesterolemia, unspecified; G43.909 Migraine, unspecified, not intractable, without status migrainosus; K21.9 Gastro-esophageal reflux disease without esophagitis; E11.9 Type 2 diabetes mellitus without complications; Z80.8 Family history of malignant neoplasm of other organs or systems; Z82.49 Family history of ischemic heart disease and other diseases of the circulatory system; Z88.0 Allergy status to penicillin; Z79.51 Long term (current) use of inhaled steroids; Z79.4 Long term (current) use of insulin; Z79.52 Long term (current) use of systemic steroids; Z77.22 Contact with and (suspected) exposure to environmental tobacco smoke (acute) (chronic); Z90.710 Acquired absence of both cervix and uterus
CPT/HCPCS: 36415; 71045; 80053; 81000; 82150; 82550; 82553; 83605; 83690; 83735; 83880; 84439; 84443; 84484; 85025; 85610; 85730; 87040; 87088; 87804; 93005; 93041

== ENCOUNTER 2018-03-22 20:41 | Emergency (ER) | payer MEDICAID ==
[~2018-03-22] VITALS: Ht 162.6 cm; Wt 90.9 kg
--- OUTSIDE RECORDS SUMMARY | 2018-03-22 20:46 | XMS REPORT ---
Author Author JEFF BELTRÁN [facility] Address [address] [place] [address] Care Team Providers Care [place] Bail[place] Name Role Phone MARGIE BELTRÁNTA Unavailable PROBLEMS Type Condition ICD9-CM Code OPQ41-GH Code Onset Dates Condition Status SNOMED Code Problem Primary narcolepsy with cataplexy G47.411 Active 818709466 Problem Gastroesophageal reflux disease with esophagitis K21.0 Active 697401641 Problem Right carpal tunnel syndrome G56.01 Active 17289789 Problem Seasonal allergic rhinitis, unspecified trigger J30.2 Active 123629497 Problem Porokeratosis Q82.8 Active 372797802 Problem Obesity E66.9 Active 114705488 Problem Other chronic pain G89.29 Active 89270473 Problem Non-alcoholic fatty liver disease K76.0 Active 661699371 Problem Tarsal tunnel syndrome of left side G57.52 Active 31801731 Problem Nuclear cataract of both eyes H25.13 Active 45032472 Problem Presbyopia OU H52.4 Active 16678636 Problem Posterior subcapsular age-related cataract of both eyes H25.043 Active 2940492 Problem Type 2 diabetes mellitus with hyperglycemia E11.65 Active 26924857 Problem Lung nodule R91.1 Active 079862670 Problem Delayed gastric emptying K30 Active 078495349 Problem Obstructive sleep apnea G47.33 Active 97150542 Problem Hypermetropia, bilateral H52.03 Active 95236416 Problem Mixed hyperlipidemia E78.2 Active 246475605 ALLERGIES No Information ENCOUNTERS Encounter Location Date Diagnosis [facility] [id number] [address] Apr, [facility] [address] [address] 2275 Mar, [facility] [id number] [address] 3119 Mar, [facility] [address] [address] 2475 Mar, [facility] [id number] [place] [address] 10070- 9256 Feb, [facility] [id number] [place] [address] 44175- 8108 Feb, Type 2 diabetes mellitus with hyperglycemia E11.65 and Epigastric abdominal pain R10.13 [facility] [id number] [place] [address] 56186- 4892 Feb, [facility] [id number] [place] [address] 22602- 3618 Feb, [facility] [id number] [place] [address] 58536- 7484 Feb, [facility] [id number] [place] [address] 76542- 5018 Feb, Seasonal allergic rhinitis, unspecified trigger J30.2 [facility] [id number] [place] [address] 87354- 7483 Feb, Type 2 diabetes mellitus with hyperglycemia E11.65 [facility] [id number] [place] [address] 22421- 8861 Feb, Viral upper respiratory tract infection J06.9 and Encounter for immunization Z23 [facility] [id number] [place] [address] 17404- 7915 Feb, [facility] [id number] [place] [address] 83991- 3157 Jan, Type 2 diabetes mellitus with hyperglycemia E11.65 [facility] [id number] [place] [address] 12400- 7853 Jan, Type 2 diabetes mellitus with hyperglycemia E11.65 [facility] [id number] [place] [address] 19900- 7951 Dec, Chest pain on breathing R07.1 [facility] [id number] [place] [address] 19156 -1691 Dec, Chest pain on breathing R07.1 [facility] [id number] [place] [address] 28850- 2349 Dec, Well woman exam Z01.419 ; Screening for breast cancer Z12.31 and Screening for colon cancer Z12.11 [facility] [id number] [place] [address] 24620- 7808 Dec, [facility] [id number] [place] [address] 93007- 2593 Dec, Type 2 diabetes mellitus with hyperglycemia E11.65 ; Mixed hyperlipidemia E78.2 and Gastroesophageal reflux disease with esophagitis K21.0 [facility] [id number] [place] [address] 63382- 4335 Nov, Type 2 diabetes mellitus with hyperglycemia E11.65 and Mixed hyperlipidemia E78.2 [facility] [id number] [place] [address] 49629- 8378 Nov, [facility] [id number] [place] [address] 33948- 4802 Oct, Back muscle spasm M62.830 and Bilateral low back pain without sciatica M54.5 [facility] [id number] [place] [address] 86864- 0997 Oct, [facility] [id number] [place] [address] 92638- 6797 September, [facility] [id number] [place] [address] 08848- 5089 September, Type 2 diabetes mellitus with hyperglycemia E11.65 [facility] [id number] [place] [address] 86566- 3060 September, Type 2 diabetes mellitus with hyperglycemia E11.65 [facility] [id number] [place] [address] 35238- 2507 September, Porokeratosis Q82.8 and Type 2 diabetes mellitus with diabetic polyneuropathy E11.42 [facility] [address] 91246 -8159 Aug, Seasonal allergic rhinitis, unspecified trigger J30.2 [address] [facility] [address] 60853- 5553 Aug, [facility] [address] 80129- 8055 Aug, Bilateral low back pain without sciatica M54.5 [facility] [address] [id number] Aug, Dental examination V72.2 and Dental examination Z01.[address] 79070- 6865 Aug, Dental examination Z01.20 and Dental caries K02.[address] 90948- 2227 Aug, Obstructive sleep apnea G47.33 ; Obesity E66.9 ; Type 2 diabetes mellitus with hyperglycemia E11.65 ; Palpitations R00.2 and Corns and callosities L84 [place] [facility] [address] 16335- 3758 Jul, [facility] [address] 41598- 5681 Jul, [place] [facility] [address] 51765- 8025 Jun, Type 2 diabetes mellitus with hyperglycemia E11.65 ; Colon cancer screening Z12.11 ; Mixed hyperlipidemia E78.2 ; Non-alcoholic fatty liver disease K76.0 ; Gastroesophageal reflux disease with esophagitis K21.0 and Pain of upper abdomen R10.10 [place] [facility] [address] 00286- 5398 09 Jun, 2017 Falls frequently R29.6 [facility] [address] [place] [address] May, Infection of nose J34.89 [facility] [id number] [place] [address] 83795- 4885 May, Bilateral low back pain without sciatica M54.5 [facility] [id number] [place] [address] 10749- 8509 May, Type 2 diabetes mellitus with diabetic polyneuropathy E11.42 ; Obstructive sleep apnea G47.33 and Type 2 diabetes mellitus with hyperglycemia E11.65 [facility] [id number] [place] [address] 83169- 2543 Apr, Bilateral low back pain without sciatica M54.5 [facility] [id number] [place] [address] 54921- 2127 Apr, Mixed hyperlipidemia E78.2 and Type 2 diabetes mellitus with hyperglycemia E11.65 [facility] [id number] [place] [address] 61951- 8279 Apr, Type 2 diabetes mellitus with diabetic polyneuropathy E11.42 [facility] [id number] [place] [address] 20039- 1887 Apr, [facility] [id number] [place] [address] 16148- 5713 Apr, Skin lesion of left arm L98.9 and Skin lesion of left leg L98.9 [facility] [facility] [id number] [place] [address] 71162- 9393 Mar, Bilateral low back pain without sciatica M54.5 [facility] [id number] [place] [address] 93134- 2779 Mar, Plantar fasciitis of left foot M72.2 ; Bursitis of left foot M71.572 and Type 2 diabetes mellitus with diabetic polyneuropathy E11.42 [facility] [address] [place] [address] 80389- 0269 Feb, Non-alcoholic fatty liver disease K76.0 ; Keratoacanthoma L85.8 ; Seborrheic keratosis L82.1 ; Type 2 diabetes mellitus with hyperglycemia E11.65 and Nuclear cataract of both eyes H25.13 [facility] [place] [address] [id number] Feb, [facility] [address] 70051- 6254 Feb, [facility] [address] 85827- 2012 Feb, [facility] [address] 66433- 6614 Feb, Type 2 diabetes mellitus with hyperglycemia E11.65 ; Back muscle spasm M62.830 and Encounter for immunization Z23 [facility] [address] 55701- 1651 Jan, Plantar fasciitis of left foot M72.2 [facility] [address] 72629- 6639 Dec, [facility] [address] 68123- 3410 Dec, Plantar fasciitis of left foot M72.2 and Tarsal tunnel syndrome of left side G57.52 [facility] [id number] [place] [address] 85715- 5691 Dec, [facility] [address] 98397 -2520 Nov, Mary Jane rash of groin B37.89 and Rash and nonspecific skin eruption R21 [facility] [address] 01133- 1440 Nov, [facility] [address] 96384- 1574 Oct, Type 2 diabetes mellitus with hyperglycemia E11.65 and Mixed hyperlipidemia E78.2 [facility] [address] 07878- 7263 Oct, [facility] [id number] [place] [address] 94881- 1534 Oct, Chest pain, unspecified R07.9 ; Palpitations R00.2 ; Syncope R55 and Mixed hyperlipidemia E78.2 [facility] [id number] [place] [address] 01955- 2954 Oct, Plantar fasciitis, bilateral M72.2 and Type 1 diabetes mellitus with diabetic neuropathy E10.40 [place] [facility] [id number] [place] [address] 45293- 1407 Oct, [place] [facility] [id number] [place] [address] 18759- 5908 September, Type 2 diabetes mellitus with hyperglycemia E11.65 [place] [id number] [place] [address] 72923- 2165 September, Type 2 diabetes mellitus with hyperglycemia E11.65 ; Type 2 diabetes mellitus with diabetic polyneuropathy E11.42 ; Gastroesophageal reflux disease with esophagitis K21.0 and Headache, unspecified headache type R51 [place] [facility] [id number] [place] [address] 42237- 2641 September, [place] [facility] [id number] [place] [address] 20330- 1802 September, [place] [facility] [id number] [place] [address] 40802- 6115 September, [facility] [id number] [place] [address] 23256- 0928 September, Other chest pain R07.89 ; Heart palpitations R00.2 ; Mixed hyperlipidemia E78.2 and Obesity E66.9 [facility] [id number] [place] [address] 84030- 0371 Aug, [facility] [id number] [place] [address] 24106- 2774 Aug, Type 2 diabetes mellitus with diabetic polyneuropathy E11.42 and Type 2 diabetes mellitus with hyperglycemia E11.65 [facility] [address] [address]- 2167 Aug, [facility] [address] [address]- 7899 Aug, [facility] [address] [address]- 9236 Aug, [facility] [id number] [place] [address] 92585- 2057 Aug, Type 2 diabetes mellitus with hyperglycemia E11.65 [facility] [address] [address]- 9123 Aug, [facility] [address] [address]- 5457 Jul, Type 2 diabetes mellitus with diabetic polyneuropathy E11.42 [facility] [address] [address]- 4014 Jul, Type 2 diabetes mellitus with hyperglycemia E11.65 [facility] [address] [address]- 1228 Jul, [facility] [address] [address]- 0030 Jul, [facility] [address] [address]- 5741 Jul, [facility] [address] [address]- 1974 Jul, Type 2 diabetes mellitus with diabetic polyneuropathy E11.42 and Type 2 diabetes mellitus with hyperglycemia E11.65 [facility] [address] [address]- 0758 Jun, Obstructive sleep apnea G47.33 [facility] [address] [address]- 7322 Jun, Type 2 diabetes mellitus with diabetic polyneuropathy E11.42 ; Primary narcolepsy with cataplexy G47.411 ; Abdominal bloating R14.0 ; Other chest pain R07.89 and Vision problems H54.7 [facility] [id number] [place] [address] 55086- 8461 Jun, [facility] [id number] [place] [address] 17330- 7631 May, [facility] [address] 76084- 3251 Apr, [facility] [id number] [place] [address] 49779- 7606 Apr, Plantar fasciitis of left foot M72.2 [facility] [id number] [place] [address] 88239- 8571 Mar, [facility] [address] 05097- 7215 Mar, Plantar fasciitis of left foot M72.2 and Type 2 diabetes mellitus with diabetic polyneuropathy E11.42 [facility] [id number] [place] [address] 82475- 4871 Feb, Type 2 diabetes mellitus with hyperglycemia E11.65 ; Mixed hyperlipidemia E78.2 and Encounter for immunization Z23 [facility] [id number] [place] [address] 30942- 7466 Feb, [facility] [id number] [place] [address] 82693- 6829 Feb, [facility] [id number] [place] [address] 96513- 2360 Feb, Type 2 diabetes mellitus with hyperglycemia E11.65 [facility] [address] 75761- 8189 Feb, Type 2 diabetes mellitus with hyperglycemia E11.65 [facility] [id number] [place] [address] 57224- 9729 Jan, [facility] [facility] [address] [address]- 9721 Dec, Pain in left foot M79.672 ; Other chronic pain G89.29 ; Type 2 diabetes mellitus with hyperglycemia E11.65 ; Obstructive sleep apnea G47.33 ; Falls frequently R29.6 ; Mixed hyperlipidemia E78.2 and Gastroesophageal reflux disease with esophagitis K21.0 [facility] [id number] [place] [address] 79924- 9335 Nov, [facility] [id number] [place] [address] 95454- 8297 Oct, Type 2 diabetes mellitus with diabetic polyneuropathy E11.42 [facility] [id number] [place] [address] 89167- 3595 Oct, [facility] [id number] [place] [address] 39384- 1144 Oct, [facility] [id number] [place] [address] 76940- 0245 September, [facility] [id number] [place] [address] 99429- 0495 September, [facility] [id number] [place] [address] 97882- 7462 September, [facility] [id number] [place] [address] 38193- 2295 September, [facility] [id number] [place] [address] 15502- 8084 September, [facility] [id number] [place] [address] 55590- 5840 Aug, Type 2 diabetes mellitus with hyperglycemia E11.65 ; Mixed hyperlipidemia E78.2 and Right carpal tunnel syndrome G56.01 [facility] [id number] [address]- 4392 Aug, [facility] [id number] [place] [address] 66263- 0301 Jul, [facility] [id number] [place] [address] 78772- 0330 Jun, [facility] [id number] [place] [address] 19096- 1698 Jun, [facility] [id number] [place] [address] 86915- 6160 May, [facility] [id number] [place] [address] 87023- 4733 May, [facility] [id number] [place] [address] 32745- 5564 May, Type 2 diabetes mellitus with hyperglycemia E11.65 and Falls E888.9 [facility] [id number] [place] [address] 26734- 1537 Apr, Type 2 diabetes mellitus with hyperglycemia E11.65 [facility] [id number] [place] [address] 64931- 1740 Apr, [facility] [id number] [place] [address] 32739- 5575 Apr, Type 2 diabetes mellitus with hyperglycemia E11.65 [facility] [id number] [place] [address] 81223- 1904 Apr, [facility] [id number] [place] [address] 78441- 2802 Mar, Type 2 diabetes mellitus with diabetic polyneuropathy E11.42 ; Bilateral low back pain without sciatica M54.5 and Dry nose J34.89 [facility] [id number] [place] [address] 44028- 8264 Mar, Palpitations R00.2 ; Syncope R55 ; DM (diabetes mellitus) E11.9 and Obesity E66.9 [facility] [id number] [place] [address] 85359- 3605 Mar, [facility] [address] [place] [address]- 3959 Mar, [facility] [id number] [address]- 1640 Mar, [facility] [id number] [address]- 0272 Feb, [facility] [id number] [place] [address] 55396- 7880 Jan, [facility] [id number] [place] [address] 29159- 8732 Jan, [facility] [id number] [place] [address] 81608- 8025 Jan, Falls E888.9 and Sinusitis 473.9 [facility] [id number] [place] [address] 76618- 1260 Dec, [facility] [id number] [place] [address] 71649- 8511 Dec, [facility] [id number] [place] [address] 97415- 5769 Dec, [facility] [id number] [place] [address] 61752- 1253 Dec, [facility] [address] [address]- 8290 Dec, Diabetes mellitus without mention of complication, type II or unspecified type, not stated as uncontrolled 250.00 and Shortness of breath 786.05 [facility] [address] [address]- 7973 Dec, [facility] [id number] [place] [address] 88405- 5287 Nov, [facility] [address] [address]- 2811 Nov, [facility] [id number] [place] [address] 21283- 7167 Oct, Restrictive lung disease 518.89 [facility] [id number] [place] [address] 07263- 8608 Oct, [facility] [id number] [place] [address] 457702- 1243 Oct, Shortness of breath 786.05 [facility] [address] 89700- 4849 September, Other nonspecific abnormal finding of lung field 793.19 ; Diabetes mellitus without mention of complication, type II or unspecified type, not stated as uncontrolled 250.00 ; Hyperlipidemia LDL goal < 100 272.4 ; Narcolepsy, with cataplexy 347.01 ; Shortness of breath 786.05 and Chest pain 786.50 [facility] [id number] [place] [address] 86291- 8477 Aug, [facility] [address] 23165- 7260 Aug, [facility] [id number] [place] [address] 36066- 1546 Jun, [facility] [id number] [place] [address] 91331- 0219 Jun, [facility] [id number] [place] [address] 15546- 3573 Jun, [facility] [id number] [place] [address] 82517- 1977 Jun, [facility] [id number] [place] [address] 10005- 1386 Jun, [facility] [address] 50515- 7413 Jun, [facility] [id number] [place] [address] 16683- 2358 Jun, [facility] [address] 04457- 7171 Jun, [facility] [place] [facility] [address] [id number] [place] [address]- 5422 May, [facility] [place] [facility] [address] [id number] [place] 6119 May, [facility] [place] [facility] [address] [id number] [place] [address]- 0208 Apr, [facility] [place] [facility] [address] [id number] [place] [address]- 7770 Apr, [facility] [place] [facility] [address] [id number] [place] [address]- 0667 Mar, [facility] [place] [facility] [address] [id number] [place] [address]- 4678 Mar, [facility] [place] [facility] [address] [id number] [place] [address]- 3718 Mar, [facility] [place] [facility] [address] [id number] [place] [address]- 6327 Mar, [facility] [place] [facility] [address] [id number] [place] [address]- 9307 Nov, [facility] [place] [facility] [address] [id number] [place] [address]- 5934 Nov, [facility] [place] [facility] [address] [id number] [place] [address]- 6388 Nov, [facility] [place] [facility] [address] [id number] [place] [address]- 0016 Nov, [facility] [place] [facility] [address] [id number] [place] [address]- 8125 Oct, [facility] [place] [facility] [address] [id number] [place] [address]- 9146 Oct, [facility] [place] [facility] [address] [id number] [place] [address]- 6881 Oct, [facility] [place] [facility] [address] [id number] [place] [address]- 3310 24 Oct, 2013 [facility] [place] [facility] [address] [id number] [place] [address]- 4606 Oct, [facility] [place] [facility] [address] [id number] [place] [address]- 1186 Oct, [facility] [place] [facility] [address] [id number] [place] [address]- 4012 Oct, [facility] [place] [facility] [address] [id number] [place] [address]- 5168 Oct, [facility] [place] [facility] [address] [id number] [place] [address]- 7842 Oct, [facility] [place] [facility] [address] [id number] [place] [address]- 4344 Oct, [facility] [place] [facility] [address] [id number] [place] [address]- 4156 September, [facility] [place] [facility] [address] [id number] [place] [address] September, [facility] [place] [facility] [address] [id number] [place] [address] Aug, [facility] [place] [facility] [address] [id number] [place] [address] Aug, [facility] [place] [facility] [address] [id number] [place] [address] Aug, [facility] [place] [facility] [address] [id number] [place] [address] Aug, [facility] [place] [facility] [address] [id number] [place] [address] Aug, [facility] [place] [facility] [address] [id number] [place] [address] Aug, [facility] [place] [facility] [address] [id number] [place] [address] Jul, [facility] [place] [facility] [address] [id number] [place] [address] Jul, [facility] [place] [facility] [address] [id number] [place] [address] Jul, [facility] [place] [facility] [address] [id number] [place] [address] Jul, [facility] [place] [facility] [address] [id number] [place] [address] Jul, [facility] [place] [facility] [address] [id number] [place] [address] Jul, [facility] [place] [facility] [address] [id number] [place] [address] Jul, [facility] [place] [facility] [address] [id number] [place] [address] Jul, [facility] [place] [facility] [address] [id number] [place] [address] Jul, [facility] [place] [facility] [address] [id number] [place] [address] Jul, [facility] [place] [facility] [address] [id number] [place] [address] Jul, [facility] [place] [facility] [address] [id number] [place] [address] Jul, [facility] [place] [facility] [address] [id number] [place] [address] 19 Jul, 2013 [facility] [place] [facility] [address] [id number] [place] [address] 14 Jul, 2013 [facility] [place] [facility] [address] [id number] [place] [address]- [address] 14 Jul, 2013 [facility] [place] [facility] [address] [id number] [place] [address] 12 Jul, 2013 [facility] [place] [facility] [address] [id number] [place] [address] Jun, [facility] [place] [facility] [address] [id number] [place] [address] Jun, [facility] [place] [facility] [address] [facility] [id number] [place] [address] Jun, [facility] [place] [facility] [address] [facility] [id number] [place] [address] Jun, [facility] [place] [facility] [address] [id number] [place] [address]- [address] Jun, [facility] [place] [facility] [address] [facility] [id number] [place] [address]- [address] Jun, [facility] [place] [facility] [address] [facility] [id number] [place] [address] Jun, [facility] [place] [facility] [address] [id number] [place] [address] Jun, [facility] [place] [facility] [address] [facility] [id number] [place] [address]- [address] Jun, [facility] [place] [facility] [address] [facility] [id number] [place] [address]- [address] Jun, [facility] [place] [facility] [address] [id number] [place] [address]- [address] Jun, [facility] [place] [facility] [address] [facility] [id number] [place] [address]- 25[address] Jun, [facility] [place] [facility] [address] [facility] [id number] [place] [address]- 1387 14 Jun, 2013 [facility] [place] [facility] [address] [facility] [id number] [place] [address]- 8887 13 Jun, 2013 [facility] [place] [facility] [address] [facility] [id number] [place] [address]- 4[address] 13 Jun, 2013 [facility] [place] [facility] [address] [facility] [id number] [address] 13 Jun, 2013 [facility] [place] [facility] [address] [id number] [place] [address]- 4[address] 13 Jun, 2013 [facility] [place] [facility] [address] [id number] [place] [address]- 1586 12 Jun, 2013 [facility] [place] [facility] [address] [facility] [id number] [place] [address]- 4226 12 Jun, 2013 [facility] [place] [facility] [address] [id number] [place] [address]- 8[address] Jun, 2013 [facility] [place] [facility] [address] [id number] [place] [address]- 4[address] Jun, 2013 [facility] [place] [facility] [address] [facility] [id number] [place] [address]- 1567 10 Jun, 2013 [facility] [place] [facility] [address] [facility] [id number] [place] [address]- 2847 07 Jun, 2013 [facility] [place] [facility] [address] [facility] [id number] [place] [address]- 36[address] 07 Jun, 2013 [facility] [place] [facility] [address] [facility] [id number] [place] [address]- 8229 06 Jun, 2013 [facility] [place] [facility] [address] [facility] [id number] [place] [address]- 1639 06 Jun, 2013 [facility] [place] [facility] [address] [facility] [id number] [place] [address] 2549 Jun, 2013 [facility] [place] [facility] [address] [facility] [id number] [place] [address]- 2540 06 Jun, 2013 [facility] [place] [facility] [address] [id number] [place] [address]- 7246 Jun, 2013 [facility] [place] [facility] [address] [facility] [id number] [place] [address]- 2546 Jun, 2013 [facility] [place] [facility] [address] [facility] [id number] [place] [address]- [address] May, [facility] [place] [facility] [address] [id number] [place] [address]- 268[address] May, [facility] [place] [facility] [address] [id number] [place] [address] May, [facility] [place] [facility] [address] [id number] [place] [address]- 9639 May, [facility] [place] [facility] [address] [id number] [place] [address]- 2233 May, [facility] [place] [facility] [address] [id number] [place] [address]- 4869 May, [facility] [place] [facility] [address] [id number] [place] [address]- 6111 May, [facility] [place] [facility] [address] [id number] [place] [address]- 0494 May, [facility] [place] [facility] [address] [id number] [place] [address]- 9634 May, [facility] [place] [facility] [address] [id number] [place] [address]- 0316 May, [facility] [place] [facility] [address] [id number] [place] [address]- 0609 May, [facility] [place] [facility] [address] [id number] [address] May, [facility] [place] [facility] [address] [id number] [place] [address]- 0729 May, [facility] [place] [facility] [address] [id number] [place] [address]- 4410 May, [facility] [place] [facility] [address] [id number] [place] [address]- 6451 May, [facility] [place] [facility] [address] [id number] [place] [address]- 5166 Apr, [facility] [place] [facility] [address] [id number] [address] Apr, [facility] [id number] [address] Dec, [facility] [address] [id number] [address] Nov, [facility] [id number] [address] May, [facility] [id number] [address]- 7[address] Apr, [facility] [id number] [address]- [address] Apr, [facility] [id number] [address] Apr, [facility] [id number] [address] 1607 Apr, IMMUNIZATIONS No Known Immunizations SOCIAL HISTORY Never Assessed REASON FOR VISIT BS f/u PLAN OF CARE VITAL SIGNS MEDICATIONS Unknown Medications RESULTS No Results PROCEDURES No Known procedures INSTRUCTIONS MEDICATIONS ADMINISTERED No Known Medications MEDICAL (GENERAL) HISTORY Type Description Date Medical History asthma Medical History type II diabetes Medical History sleep apnea Medical History narcolepsy Medical History Shortness of breath Medical History Shortness of breath Medical History Falls frequently Medical History Pain in left foot Surgical History hysterectomy, partial Hospitalization History Chest pain-[facility] 02/27/17 Hospitalization History ER 03/08/18
--- OUTSIDE RECORDS SUMMARY | 2018-03-22 20:47 | XMS REPORT ---
Author Author JEFF BELTRÁN [facility] Address [address] [place] [address] Care Team Providers Care Rail Car Driver Name Role Phone MARGIE BELTRÁNTA Unavailable PROBLEMS Type Condition ICD9-CM Code JIN16-PQ Code Onset Dates Condition Status SNOMED Code Problem Primary narcolepsy with cataplexy G47.411 Active 519700492 Problem Gastroesophageal reflux disease with esophagitis K21.0 Active 621349425 Problem Right carpal tunnel syndrome G56.01 Active 34598223 Problem Seasonal allergic rhinitis, unspecified trigger J30.2 Active 704478910 Problem Porokeratosis Q82.8 Active 569554969 Problem Obesity E66.9 Active 681242137 Problem Other chronic pain G89.29 Active 70380416 Problem Non-alcoholic fatty liver disease K76.0 Active 756543139 Problem Tarsal tunnel syndrome of left side G57.52 Active 70374260 Problem Nuclear cataract of both eyes H25.13 Active 12446399 Problem Presbyopia OU H52.4 Active 83580184 Problem Posterior subcapsular age-related cataract of both eyes H25.043 Active 2678483 Problem Type 2 diabetes mellitus with hyperglycemia E11.65 Active 62179208 Problem Lung nodule R91.1 Active 858728938 Problem Delayed gastric emptying K30 Active 089282091 Problem Obstructive sleep apnea G47.33 Active 84375687 Problem Hypermetropia, bilateral H52.03 Active 26716717 Problem Mixed hyperlipidemia E78.2 Active 650285879 ALLERGIES Substance Reaction Event Type Date Status Penicillin G Sodium Unknown Drug Allergy Feb, Active Erythromycin Unknown Drug Allergy Feb, Active ENCOUNTERS Encounter Location Date Diagnosis [facility] [address] [facility] [id number] [address] 3[address] Apr, [facility] [address] [facility] [id number], [place] [address] 2409 Mar, [facility] [address], [place] [address] 8020 Mar, [facility] [id number] [place] [address] 75380- 6716 Feb, [facility] [id number] [place] [address] 32553- 9053 Feb, Type 2 diabetes mellitus with hyperglycemia E11.65 and Epigastric abdominal pain R10.13 [facility] [id number] [place] [address] 57587- 3740 Feb, [facility] [id number] [place] [address] 13283- 3369 Feb, [facility] [id number] [place] [address] 49427- 1940 Feb, [facility] [id number] [place] [address] 28053- 1375 Feb, Seasonal allergic rhinitis, unspecified trigger J30.2 [facility] [id number] [place] [address] 67012- 2450 Feb, Type 2 diabetes mellitus with hyperglycemia E11.65 [facility] [id number] [place] [address] 72639- 0415 Feb, Viral upper respiratory tract infection J06.9 and Encounter for immunization Z23 [facility] [id number] [place] [address] 14553- 1143 Feb, [facility] [id number] [place] [address] 98365- 0907 Jan, Type 2 diabetes mellitus with hyperglycemia E11.65 [facility] [id number] [place] [address] 36913- 5871 Jan, Type 2 diabetes mellitus with hyperglycemia E11.65 [facility] [address], [place] [address] 0795 Dec, Chest pain on breathing R07.1 [facility] [id number] [place] [address] 91116 -8964 Dec, Chest pain on breathing R07.1 [facility] [id number] [place] [address] 13806- 2261 Dec, Well woman exam Z01.419 ; Screening for breast cancer Z12.31 and Screening for colon cancer Z12.11 [facility] [id number] [place] [address] 07488- 8754 Dec, [facility] [id number] [place] [address] 87947- 7574 Dec, Type 2 diabetes mellitus with hyperglycemia E11.65 ; Mixed hyperlipidemia E78.2 and Gastroesophageal reflux disease with esophagitis K21.0 [facility] [id number] [place] [address] 06748- 8322 Nov, Type 2 diabetes mellitus with hyperglycemia E11.65 and Mixed hyperlipidemia E78.2 [facility] [id number] [place] [address] 09510- 2234 Nov, [facility] [id number] [place] [address] 68406- 6327 Oct, Back muscle spasm M62.830 and Bilateral low back pain without sciatica M54.5 [facility] [id number] [place] [address] 04419- 9117 Oct, [facility] [id number] [place] [address] 54454- 3260 September, [facility] [id number] [place] [address] 42394- 1360 September, Type 2 diabetes mellitus with hyperglycemia E11.65 [facility] [id number] [place] [address] 01492- 9430 September, Type 2 diabetes mellitus with hyperglycemia E11.65 [facility] [id number] [place] [address] 12753- 8407 September, Porokeratosis Q82.8 and Type 2 diabetes mellitus with diabetic polyneuropathy E11.42 [facility] [address] 08780 -7512 Aug, Seasonal allergic rhinitis, unspecified trigger J30.2 [facility] [address] 83968- 9604 Aug, [facility] [address] 61352- 7110 Aug, Bilateral low back pain without sciatica M54.5 [facility] [address] [id number] Aug, Dental examination V72.2 and Dental examination Z01.20 [facility] [address] 04713- 2713 Aug, Dental examination Z01.20 and Dental caries K02.[address] 84335- 3249 Aug, Obstructive sleep apnea G47.33 ; Obesity E66.9 ; Type 2 diabetes mellitus with hyperglycemia E11.65 ; Palpitations R00.2 and Corns and callosities L84 [facility] [address] 49461- 6550 Jul, [facility] [address] 57997- 2491 Jul, [facility] [address] 45710- 3060 Jun, Type 2 diabetes mellitus with hyperglycemia E11.65 ; Colon cancer screening Z12.11 ; Mixed hyperlipidemia E78.2 ; Non-alcoholic fatty liver disease K76.0 ; Gastroesophageal reflux disease with esophagitis K21.0 and Pain of upper abdomen R10.10 [facility] [address] 56606- 8429 09 Jun, 2017 Falls frequently R29.6 [facility] [address] 78573 -0579 May, Infection of nose J34.89 [facility] [id number] [place] [address] 26238- 2267 May, Bilateral low back pain without sciatica M54.5 [facility] [id number] [place] [address] 57117- 3504 May, Type 2 diabetes mellitus with diabetic polyneuropathy E11.42 ; Obstructive sleep apnea G47.33 and Type 2 diabetes mellitus with hyperglycemia E11.65 [facility] [id number] [place] [address] 16386- 9176 Apr, Bilateral low back pain without sciatica M54.5 [facility] [id number] [place] [address] 11279- 7105 Apr, Mixed hyperlipidemia E78.2 and Type 2 diabetes mellitus with hyperglycemia E11.65 [facility] [id number] [place] [address] 11953- 2659 Apr, Type 2 diabetes mellitus with diabetic polyneuropathy E11.42 [facility] [id number] [place] [address] 67335- 8436 Apr, [facility] [id number] [place] [address] 99270- 8459 Apr, Skin lesion of left arm L98.9 and Skin lesion of left leg L98.9 [facility] [id number] [place] [address] 89551- 0173 Mar, Bilateral low back pain without sciatica M54.5 [facility] [id number] [place] [address] 50348- 5952 Mar, Plantar fasciitis of left foot M72.2 ; Bursitis of left foot M71.572 and Type 2 diabetes mellitus with diabetic polyneuropathy E11.42 [facility] [address], [place] [address]- 2453 Feb, Non-alcoholic fatty liver disease K76.0 ; Keratoacanthoma L85.8 ; Seborrheic keratosis L82.1 ; Type 2 diabetes mellitus with hyperglycemia E11.65 and Nuclear cataract of both eyes H25.13 [facility] [address] [id number] Feb, [facility] [id number] [place] [address] 08985- 2181 Feb, [facility] [address] 18404- 2569 Feb, [facility] [address] 75140- 0969 Feb, Type 2 diabetes mellitus with hyperglycemia E11.65 ; Back muscle spasm M62.830 and Encounter for immunization Z23 [facility] [address] 04192- 6863 Jan, Plantar fasciitis of left foot M72.2 [facility] [address] 89462- 5680 Dec, [facility] [address] 33401- 2671 Dec, Plantar fasciitis of left foot M72.2 and Tarsal tunnel syndrome of left side G57.52 [facility] [id number] [place] [address] 67082- 7094 Dec, [facility] [id number] [place] [address] 02916 -5895 Nov, Mary Jane rash of groin B37.89 and Rash and nonspecific skin eruption R21 [facility] [id number] [place] [address] 04084- 3182 Nov, [facility] [address] 12747- 5875 Oct, Type 2 diabetes mellitus with hyperglycemia E11.65 and Mixed hyperlipidemia E78.2 [facility] [address] 45594- 1031 Oct, [facility] [id number] [place] [address] 57880- 1486 Oct, Chest pain, unspecified R07.9 ; Palpitations R00.2 ; Syncope R55 and Mixed hyperlipidemia E78.2 [facility] [id number] [place] [address] 08665- 0704 Oct, Plantar fasciitis, bilateral M72.2 and Type 1 diabetes mellitus with diabetic neuropathy E10.40 [facility] [id number] [place] [address] 39073- 6090 Oct, [facility] [address] 48329- 6992 September, Type 2 diabetes mellitus with hyperglycemia E11.65 [facility] [id number] [place] [address] 34609- 5433 September, Type 2 diabetes mellitus with hyperglycemia E11.65 ; Type 2 diabetes mellitus with diabetic polyneuropathy E11.42 ; Gastroesophageal reflux disease with esophagitis K21.0 and Headache, unspecified headache type R51 [facility] [id number] [place] [address] 40673- 2215 September, [facility] [id number] [place] [address] 84753- 9726 September, [facility] [id number] [place] [address] 20356- 2725 September, [facility] [id number] [place] [address] 23867- 0524 September, Other chest pain R07.89 ; Heart palpitations R00.2 ; Mixed hyperlipidemia E78.2 and Obesity E66.9 [facility] [id number] [place] [address] 47809- 4531 Aug, [facility] [id number] [place] [address] 48968- 8471 Aug, Type 2 diabetes mellitus with diabetic polyneuropathy E11.42 and Type 2 diabetes mellitus with hyperglycemia E11.65 [facility] [address], [place] [address]- 2040 Aug, [facility] [address], [place] [address]- 9429 Aug, [facility] [address], [place] [address]- 9774 Aug, [facility] [id number] [place] [address] 00076- 3239 Aug, Type 2 diabetes mellitus with hyperglycemia E11.65 [facility] [address], [place] [address]- 2296 Aug, [facility] [id number] [address]- 3378 Jul, Type 2 diabetes mellitus with diabetic polyneuropathy E11.42 [facility] [id number] [place] [address] 99044- 1581 Jul, Type 2 diabetes mellitus with hyperglycemia E11.65 [facility] [address], [place] [address]- 6787 Jul, [facility] [id number] [place] [address] 73612- 7642 Jul, [facility] [address], [place] [address]- 0707 Jul, [facility] [address], [place] [address]- 8911 Jul, Type 2 diabetes mellitus with diabetic polyneuropathy E11.42 and Type 2 diabetes mellitus with hyperglycemia E11.65 [facility] [address], [place] [address]- 8909 Jun, Obstructive sleep apnea G47.33 [facility] [address], [place] [address]- 5524 Jun, Type 2 diabetes mellitus with diabetic polyneuropathy E11.42 ; Primary narcolepsy with cataplexy G47.411 ; Abdominal bloating R14.0 ; Other chest pain R07.89 and Vision problems H54.7 [facility] [id number] [place] [address] 97015- 4186 Jun, [facility] [id number] [place] [address] 06492- 2158 May, [facility] [id number] [place] [address] 77355- 0072 Apr, [facility] [id number] [place] [address] 90261- 8399 Apr, Plantar fasciitis of left foot M72.2 [facility] [id number] [place] [address] 38161- 1969 Mar, [facility] [id number] [place] [address] 10315- 9821 Mar, Plantar fasciitis of left foot M72.2 and Type 2 diabetes mellitus with diabetic polyneuropathy E11.42 [facility] [id number] [place] [address] 15835- 0980 Feb, Type 2 diabetes mellitus with hyperglycemia E11.65 ; Mixed hyperlipidemia E78.2 and Encounter for immunization Z23 [facility] [id number] [place] [address] 63970- 2817 Feb, [facility] [id number] [place] [address] 49051- 7790 Feb, [facility] [id number] [place] [address] 58183- 6916 Feb, Type 2 diabetes mellitus with hyperglycemia E11.65 [facility] [id number] [place] [address] 01760- 2440 Feb, Type 2 diabetes mellitus with hyperglycemia E11.65 [facility] [id number] [place] [address] 76962- 9605 Jan, [facility] [id number] [place] [address] 81323- 8654 Dec, Pain in left foot M79.672 ; Other chronic pain G89.29 ; Type 2 diabetes mellitus with hyperglycemia E11.65 ; Obstructive sleep apnea G47.33 ; Falls frequently R29.6 ; Mixed hyperlipidemia E78.2 and Gastroesophageal reflux disease with esophagitis K21.0 [facility] [id number] [place] [address] 06981- 9832 Nov, [facility] [id number] [place] [address] 38288- 5403 Oct, Type 2 diabetes mellitus with diabetic polyneuropathy E11.42 [facility] [id number] [place] [address] 80531- 8646 Oct, [facility] [id number] [place] [address] 08379- 4292 Oct, [facility] [id number] [place] [address] 22256- 0816 September, [facility] [id number] [place] [address] 76254- 9093 September, [facility] [id number] [place] [address] 90765- 6710 September, [facility] [id number] [place] [address] 26821- 2397 September, [facility] [id number] [place] [address] 66280- 7824 September, [facility] [id number] [place] [address] 34634- 4258 Aug, Type 2 diabetes mellitus with hyperglycemia E11.65 ; Mixed hyperlipidemia E78.2 and Right carpal tunnel syndrome G56.01 [facility] [address], [place] [address]- 1149 Aug, [facility] [id number] [place] [address] 51565- 3094 Jul, [facility] [address], [place] [address]- 1504 Jun, [facility] [id number] [place] [address] 22417- 5583 Jun, [facility] [id number] [place] [address] 46917- 1327 May, [facility] [address] 23330- 8282 May, [facility] [id number] [place] [address] 22170- 0609 May, Type 2 diabetes mellitus with hyperglycemia E11.65 and Falls E888.9 [facility] [id number] [place] [address] 52064- 8105 Apr, Type 2 diabetes mellitus with hyperglycemia E11.65 [facility] [address] 65717- 4262 Apr, [facility] [id number] [place] [address] 67496- 7670 Apr, Type 2 diabetes mellitus with hyperglycemia E11.65 [facility] [id number] [place] [address] 14527- 9109 Apr, [facility] [id number] [place] [address] 55262- 0353 Mar, Type 2 diabetes mellitus with diabetic polyneuropathy E11.42 ; Bilateral low back pain without sciatica M54.5 and Dry nose J34.89 [facility] [id number] [place] [address] 91283- 6350 Mar, Palpitations R00.2 ; Syncope R55 ; DM (diabetes mellitus) E11.9 and Obesity E66.9 [facility] [id number] [place] [address] 25108- 4493 Mar, [facility] [id number] [place] [address] 16401- 5986 Mar, [facility] [address], [place] [address]- 1413 Mar, [facility] [id number] [place] [address] 46227- 0096 Feb, [facility] [address], [place] [address]- 0896 Jan, [facility] [id number] [place] [address] 10545- 8112 Jan, [facility] [id number] [place] [address] 56197- 1717 Jan, Falls E888.9 and Sinusitis 473.9 [facility] [id number] [place] [address] 92959- 6998 Dec, [facility] [id number] [place] [address] 44207- 2233 Dec, [facility] [address], [place] [address]- 8308 Dec, [facility] [id number] [place] [address] 41345- 0419 Dec, [facility] [address], [place] [address]- 3949 Dec, Diabetes mellitus without mention of complication, type II or unspecified type, not stated as uncontrolled 250.00 and Shortness of breath 786.05 [facility] [address], [place] [address]- 5307 Dec, [facility] [id number] [place] [address] 76357- 7340 Nov, [facility] [address], [place] [address]- 3213 Nov, [facility] [id number] [place] [address] 69438- 0263 Oct, Restrictive lung disease 518.89 [facility] [id number] [place] [address] 30194- 0030 Oct, [facility] [id number] [place] [address] 65788- 4841 Oct, Shortness of breath 786.05 [facility] [id number] [place] [address] 82097- 6364 September, Other nonspecific abnormal finding of lung field 793.19 ; Diabetes mellitus without mention of complication, type II or unspecified type, not stated as uncontrolled 250.00 ; Hyperlipidemia LDL goal < 100 272.4 ; Narcolepsy, with cataplexy 347.01 ; Shortness of breath 786.05 and Chest pain 786.50 [facility] [id number] [place] [address] 93389- 7719 Aug, [facility] [id number] [place] [address] 27104- 7099 Aug, [facility] [id number] [place] [address] 36392- 8382 Jun, [facility] [id number] [place] [address] 70322- 9200 Jun, [facility] [id number] [place] [address] 24928- 9769 Jun, [facility] [id number] [place] [address] 86579- 4610 Jun, [facility] [id number] [place] [address] 24958- 5141 Jun, [facility] [id number] [place] [address] 00748- 0054 Jun, [facility] [id number] [place] [address] 41961- 8964 Jun, [facility] [id number] [place] [address] 93523- 5075 Jun, [facility] [place] [facility] [address] [id number] [place] [address]- 4040 May, [facility] [place] [facility] [address] [id number] [place] [address]- 7021 May, [facility] [place] [facility] [address] [id number] [place] [address]- 7801 Apr, [facility] [place] [facility] [address] [id number] [place] [address]- 7924 Apr, [facility] [place] [facility] [address] [id number] [place] [address]- 8377 Mar, [facility] [place] [facility] [address] [id number] [place] [address]- 0509 Mar, [facility] [place] [facility] [address] [id number] [place] [address]- 8608 Mar, [facility] [place] [facility] [address] [id number] [place] [address] Mar, [facility] [place] [facility] [address] [id number] [place] [address] Nov, [facility] [place] [facility] [address] [id number] [place] [address] Nov, [facility] [place] [facility] [address] [id number] [place] [address] Nov, [facility] [place] [facility] [address] [id number] [place] [address] Nov, [facility] [place] [facility] [address] [id number] [place] [address] Oct, [facility] [place] [facility] [address] [id number] [place] [address] Oct, [facility] [place] [facility] [address] [id number] [place] [address] Oct, [facility] [place] [facility] [address] [id number] [place] [address] 24 Oct, 2013 [facility] [place] [facility] [address] [id number] [place] [address] Oct, [facility] [place] [facility] [address] [id number] [place] [address] Oct, [facility] [place] [facility] [address] [id number] [place] [address] Oct, [facility] [place] [facility] [address] [id number] [place] [address] Oct, [facility] [place] [facility] [address] [id number] [place] [address] Oct, [facility] [place] [facility] [address] [id number] [place] [address] Oct, [facility] [place] [facility] [address] [id number] [place] [address] September, [facility] [place] [facility] [address] [id number] [place] [address] September, [facility] [place] [facility] [address] [id number] [place] [address] Aug, [facility] [place] [facility] [address] [id number] [place] [address] Aug, [facility] [place] [facility] [address] [id number] [place] [address] Aug, [facility] [place] [facility] [address] [id number] [place] [address] Aug, [facility] [place] [facility] [address] [id number] [place] [address] Aug, [facility] [place] [facility] [address] [address] [id number] [place] [address] Aug, [facility] [place] [facility] [address] [id number] [place] [address] Jul, [facility] [place] [facility] [address] [id number] [place] [address] Jul, [facility] [place] [facility] [address] [id number] [place] [address] Jul, [facility] [place] [facility] [address] [id number] [place] [address] Jul, [facility] [place] [facility] [address] [id number] [place] [address] Jul, [facility] [place] [facility] [address] [id number] [place] [address] Jul, [facility] [place] [facility] [address] [id number] [place] [address] Jul, [facility] [place] [facility] [address] [id number] [place] [address] Jul, [facility] [place] [facility] [address] [id number] [place] [address] Jul, [facility] [place] [facility] [address] [id number] [place] [address] Jul, [facility] [place] [facility] [address] [id number] [place] [address] Jul, [facility] [place] [facility] [address] [id number] [place] [address] 19 Jul, 2013 [facility] [place] [facility] [address] [id number] [place] [address] 19 Jul, 2013 [facility] [place] [facility] [address] [id number] [place] [address] 14 Jul, 2013 [facility] [place] [facility] [address] [id number] [place] [address] 14 Jul, 2013 [facility] [place] [facility] [address] [id number] [place] [address] 12 Jul, 2013 [facility] [place] [facility] [address] [id number] [place] [address] 80[address] Jun, [facility] [place] [facility] [address] [id number] [place] [address] Jun, [facility] [place] [facility] [address] [id number] [place] [address] Jun, [facility] [place] [facility] [address] [facility] [id number] [place] [address]76 Jun, [facility] [place] [facility] [address] [id number] [place] [address]163 Jun, [facility] [place] [facility] [address] [id number] [place] [address] Jun, [facility] [place] [facility] [address] [facility] [id number] [place] [address] 8466 Jun, [facility] [place] [facility] [address] [facility] [id number] [place] [address]097 Jun, [facility] [place] [facility] [address] [facility] [id number] [place] [address]- [address]247 Jun, [facility] [place] [facility] [address] [facility] [id number] [place] [address] 9537 Jun, [facility] [place] [facility] [address] [facility] [id number] [place] [address] 18 Jun, 2013 [facility] [place] [facility] [address] [facility] [id number] [place] [address]46 18 Jun, 2013 [facility] [place] [facility] [address] [facility] [id number] [place] [address]49 14 Jun, 2013 [facility] [place] [facility] [address] [facility] [id number] [place] [address]138 13 Jun, 2013 [facility] [place] [facility] [address] [facility] [id number] [place] [address] 8926 13 Jun, 2013 [facility] [place] [facility] [address] [facility] [id number] [place] [address] Jun, [facility] [place] [facility] [address] [id number] [place] [address] 8631 13 Jun, 2013 [facility] [place] [facility] [address] [id number] [place] [address] 6266 12 Jun, 2013 [facility] [place] [facility] [address] [facility] [id number] [place] [address] 12 Jun, 2013 [facility] [place] [facility] [address] [facility] [id number] [place] [address] Jun, 2013 [facility] [place] [facility] [address] [id number] [place] [address]159 Jun, 2013 [facility] [place] [facility] [address] [facility] [id number] [place] [address]- 8490 10 Jun, 2013 [facility] [place] [facility] [address] [facility] [id number] [place] [address]- [address] 07 Jun, 2013 [facility] [place] [facility] [address] [facility] [id number] [place] [address]- 6547 07 Jun, 2013 [facility] [place] [facility] [address] [facility] [id number] [place] [address]- 2737 Jun, 2013 [facility] [place] [facility] [address] [facility] [id number] [place] [address] 9[address] Jun, 2013 [facility] [place] [facility] [address] [facility] [id number] [place] [address] 4815 Jun, 2013 [facility] [place] [facility] [address] [facility] [id number] [place] [address]- [address]609 Jun, 2013 [facility] [place] [facility] [address] [facility] [id number] [place] [address] 6939 Jun, 2013 [facility] [place] [facility] [address] [facility] [id number] [place] [address]- 7587 Jun, 2013 [facility] [place] [facility] [address] [facility] [id number] [place] [address]202 May, [facility] [place] [facility] [address] [id number] [place] [address]995 May, [facility] [place] [facility] [address] [id number] [place] [address] 7040 May, [facility] [place] [facility] [address] [id number] [place] [address]- [address]152 May, [facility] [place] [facility] [address] [id number] [place] [address]92 May, [facility] [address] [id number] [place] [address]- [address]201 May, [facility] [place] [facility] [address] [id number] [place] [address] 8619 May, [facility] [address] [id number] [place] [address] May, [facility] [address] [id number] [place] [address] 1586 May, [facility] [place] [facility] [address] [id number] [place] [address]- 5657 May, [facility] [place] [facility] [address] [id number] [place] [address]- 5370 May, [facility] [place] [facility] [address] [id number] [place] [address] 7035 May, [facility] [place] [facility] [address] [id number] [place] [address] 7328 May, [facility] [place] [facility] [address] [id number] [place] [address]- 8184 May, [facility] [place] [facility] [address] [id number] [place] [address]- 8924 May, [facility] [place] [facility] [address] [id number] [place] [address] 5910 Apr, [facility] [place] [facility] [address] [id number], [place] [address] Apr, [facility] [address] [facility] [id number], [place] [address] 2546 Dec, [facility] [address] [facility] [id number], [place] [address] Nov, [facility] [address] [id number], [place] [address] May, [facility] [address] [id number], [place] [address] Apr, [facility] [address] [id number], [place] [address] Apr, [facility] [address] [id number], [place] [address] Apr, [facility] [address] [id number], [place] [address] Apr, IMMUNIZATIONS No Known Immunizations SOCIAL HISTORY Never Assessed REASON FOR VISIT Diabetes F/U Katie HENDERSON, [facility] F/U Katie HENDERSON, Pt states that someone at the hospital her that she needs to be seen at the clinic as soon as possible because there was something that she needed to be told that was important. pt states that at the hospital they were treating her like she had HIV and Hep C. Katie HENDERSON, Pt would like to discuss stress issues Katie HENDERSON PLAN OF CARE Activity Details Follow Up 3 Months Reason:DM VITAL SIGNS Height 64 in 2018-03-12 Weight 199.0 lbs 2018-03-12 Temperature 97.6 degrees Fahrenheit 2018-03-12 Heart Rate 64 bpm 2018-03-12 Respiratory Rate 18 2018-03-12 BMI 34.15 kg/m2 2018-03-12 Blood pressure systolic 128 mmHg 2018-03-12 Blood pressure diastolic 78 mmHg 2018-03-12 MEDICATIONS Medication Instructions Dosage Frequency Start Date End Date Duration Status Blood Glucose Monitor System w/Device DX- E11.65 3 times a day test 3 times per day 8h Nov, Active Pen [place] 32G X 4 MM as directed Dec, 90 days Active Levemir Flexpen 100 unit/mL (3 mL) subcutaneous 2 times a day 65 units 12h Aug, Active Atorvastatin Calcium 40 mg Orally Once a day 1 tablet 24h 20 Jun, 2017 Active ReliOn Blood Glucose Test - subcutaneously 4 times a day DX: E11.65 test blood sugar September, Active NovoLog Flexpen 100 UNIT/ML Subcutaneous 3 times a day 40 units 8h 07 Dec, 2014 Active Lancets - subcutaneously 4 times a day DX: E11.65 test blood sugar September Active Proventil HFA 108 (90 Base) MCG/ACT Inhalation every 4 hrs 2 puffs as needed 4h Dec, Active Levemir FlexTouch 100 UNIT/ML INJECT 65 UNITS SUBCUTANEOUSLY TWICE DAILY Active Gabapentin 300 MG Orally Three times a day 3 capsules 8h Mar, 30 days Active Famotidine 20 mg Orally twice a day 1 tablet at bedtime 12h Active RESULTS Name Result Date Reference Range A1C (IN HOUSE) 2018-03-12 A1C IN HOUSE 10.1 4.3 - 5.6 % Previous A1c 9.5 Lot [id number] Exp date 07/2019 H PYLORI (IN HOUSE) 2018-03-12 H. PYLORI negative Control + Lot # [id number] Exp date 07/12/2018 PROCEDURES Procedure Date Ordered Result Body Site GLYCATED HEMOGLOBIN TEST Mar 12, 2018 IMMUNOASSAY,INFECTIOUS AGENT Mar 12, 2018 INSTRUCTIONS MEDICATIONS ADMINISTERED No Known Medications MEDICAL (GENERAL) HISTORY Type Description Date Medical History asthma Medical History type II diabetes Medical History sleep apnea Medical History narcolepsy Medical History Shortness of breath Medical History Shortness of breath Medical History Falls frequently Medical History Pain in left foot Surgical History hysterectomy, partial Hospitalization History Chest pain[facility] 02/27/17 Hospitalization History ER 03/08/18
--- OUTSIDE RECORDS SUMMARY | 2018-03-22 20:48 | XMS REPORT ---
Author Author JEFF BELTRÁN [facility] Address [address] [place] [address] Care Team Providers Care Hay Stacker Name Role Phone MARGIE BELTRÁNTA Unavailable PROBLEMS Type Condition ICD9-CM Code VQL69-KI Code Onset Dates Condition Status SNOMED Code Problem Primary narcolepsy with cataplexy G47.411 Active 284119384 Problem Gastroesophageal reflux disease with esophagitis K21.0 Active 643418890 Problem Right carpal tunnel syndrome G56.01 Active 08113900 Problem Seasonal allergic rhinitis, unspecified trigger J30.2 Active 591501954 Problem Porokeratosis Q82.8 Active 372103320 Problem Obesity E66.9 Active 954538208 Problem Other chronic pain G89.29 Active 12706443 Problem Non-alcoholic fatty liver disease K76.0 Active 160710669 Problem Tarsal tunnel syndrome of left side G57.52 Active 36879015 Problem Nuclear cataract of both eyes H25.13 Active 29413693 Problem Presbyopia OU H52.4 Active 84128906 Problem Posterior subcapsular age-related cataract of both eyes H25.043 Active 7962715 Problem Type 2 diabetes mellitus with hyperglycemia E11.65 Active 63886099 Problem Lung nodule R91.1 Active 372447646 Problem Delayed gastric emptying K30 Active 886221818 Problem Obstructive sleep apnea G47.33 Active 16771624 Problem Hypermetropia, bilateral H52.03 Active 05257508 Problem Mixed hyperlipidemia E78.2 Active [id number] ALLERGIES No Information ENCOUNTERS Encounter Location Date Diagnosis [facility] [id number] [address] 9947 Apr, [facility] [address], [place] [address] 6972 Mar, [facility] [id number], [place] [address] 4842 Mar, [facility] [id number] [place] [address] 77875- 4760 Feb, [facility] [id number] [place] [address] 27472- 4377 Feb, Type 2 diabetes mellitus with hyperglycemia E11.65 and Epigastric abdominal pain R10.13 [facility] [id number] [place] [address] 33773- 9069 Feb, [facility] [id number] [place] [address] 02903- 5969 Feb, [facility] [id number] [place] [address] 55341- 0921 Feb, [facility] [id number] [place] [address] 88582- 4726 Feb, Seasonal allergic rhinitis, unspecified trigger J30.2 [facility] [id number] [place] [address] 05574- 2610 Feb, Type 2 diabetes mellitus with hyperglycemia E11.65 [facility] [id number] [place] [address] 87522- 4193 Feb, Viral upper respiratory tract infection J06.9 and Encounter for immunization Z23 [facility] [id number] [place] [address] 24642- 4260 Feb, [facility] [id number] [place] [address] 61536- 1007 Jan, Type 2 diabetes mellitus with hyperglycemia E11.65 [facility] [id number] [place] [address] 71293- 6938 Jan, Type 2 diabetes mellitus with hyperglycemia E11.65 [facility] [id number] [place] [address] 40451- 7592 Dec, Chest pain on breathing R07.1 [facility] [id number] [place] [address] 76740 -7199 Dec, Chest pain on breathing R07.1 [facility] [id number] [place] [address] 06238- 1147 Dec, Well woman exam Z01.419 ; Screening for breast cancer Z12.31 and Screening for colon cancer Z12.11 [facility] [id number] [place] [address] 45332- 0763 Dec, [facility] [facility] [address] 26182- 7926 Dec, Type 2 diabetes mellitus with hyperglycemia E11.65 ; Mixed hyperlipidemia E78.2 and Gastroesophageal reflux disease with esophagitis K21.0 [facility] [facility] [address] 01821- 5918 Nov, Type 2 diabetes mellitus with hyperglycemia E11.65 and Mixed hyperlipidemia E78.2 [facility] [id number] [place] [address] 21794- 9320 Nov, [facility] [id number] [place] [address] 77281- 5933 Oct, Back muscle spasm M62.830 and Bilateral low back pain without sciatica M54.5 [facility] [id number] [place] [address] 10955- 6993 Oct, [facility] [id number] [place] [address] 13215- 6255 September, [facility] [id number] [place] [address] 89306- 3949 September, Type 2 diabetes mellitus with hyperglycemia E11.65 [facility] [id number] [place] [address] 00898- 8967 September, Type 2 diabetes mellitus with hyperglycemia E11.65 [facility] [id number] [place] [address] 54541- 4440 September, Porokeratosis Q82.8 and Type 2 diabetes mellitus with diabetic polyneuropathy E11.42 [facility] [address] 92460 -1036 Aug, Seasonal allergic rhinitis, unspecified trigger J30.2 [facility] [address] 87090- 9470 Aug, [place] [address] 20773- 1639 Aug, Bilateral low back pain without sciatica M54.5 [facility] [address] [id number] Aug, Dental examination V72.2 and Dental examination Z01.20 [place] [address] 81742- 2187 Aug, Dental examination Z01.20 and Dental caries K02.9 [place] [address] 33748- 1454 Aug, Obstructive sleep apnea G47.33 ; Obesity E66.9 ; Type 2 diabetes mellitus with hyperglycemia E11.65 ; Palpitations R00.2 and Corns and callosities L84 [facility] [address] 28364- 4293 Jul, [facility] [facility] [address] 82263- 1890 Jul, [facility] [facility] [address] 25802- 1428 Jun, Type 2 diabetes mellitus with hyperglycemia E11.65 ; Colon cancer screening Z12.11 ; Mixed hyperlipidemia E78.2 ; Non-alcoholic fatty liver disease K76.0 ; Gastroesophageal reflux disease with esophagitis K21.0 and Pain of upper abdomen R10.10 [place] [address] 72879- 7127 09 Jun, 2017 Falls frequently R29.6 [facility] [address] 34343 -3692 May, Infection of nose J34.89 [facility] [id number] [place] [address] 48570- 3811 May, Bilateral low back pain without sciatica M54.5 [facility] [id number] [place] [address] 36606- 2057 May, Type 2 diabetes mellitus with diabetic polyneuropathy E11.42 ; Obstructive sleep apnea G47.33 and Type 2 diabetes mellitus with hyperglycemia E11.65 [facility] [address] 02964- 7159 Apr, Bilateral low back pain without sciatica M54.5 [place] [address] 41833- 1627 Apr, Mixed hyperlipidemia E78.2 and Type 2 diabetes mellitus with hyperglycemia E11.65 [facility] [id number] [place] [address] 10379- 5850 Apr, Type 2 diabetes mellitus with diabetic polyneuropathy E11.42 [facility] [id number] [place] [address] 67745- 1344 Apr, [facility] [id number] [place] [address] 14263- 7183 Apr, Skin lesion of left arm L98.9 and Skin lesion of left leg L98.9 [facility] [id number] [place] [address] 29131- 9827 Mar, Bilateral low back pain without sciatica M54.5 [facility] [id number] [place] [address] 48380- 0990 Mar, Plantar fasciitis of left foot M72.2 ; Bursitis of left foot M71.572 and Type 2 diabetes mellitus with diabetic polyneuropathy E11.42 [facility] [id number] [place] [address] 49450- 3103 Feb, Non-alcoholic fatty liver disease K76.0 ; Keratoacanthoma L85.8 ; Seborrheic keratosis L82.1 ; Type 2 diabetes mellitus with hyperglycemia E11.65 and Nuclear cataract of both eyes H25.13 [facility] [place] [address] [id number] Feb, [facility] [address] 33796- 3473 Feb, [facility] [address] 59992- 4484 Feb, [facility] [address] 62238- 1702 Feb, Type 2 diabetes mellitus with hyperglycemia E11.65 ; Back muscle spasm M62.830 and Encounter for immunization Z23 [facility] [address] 04318- 5545 Jan, Plantar fasciitis of left foot M72.2 [facility] [address] 39580- 8860 Dec, [facility] [address] 66985- 3499 Dec, Plantar fasciitis of left foot M72.2 and Tarsal tunnel syndrome of left side G57.52 [facility] [address] 82236- 1576 Dec, [facility] [address] 89763 -7618 Nov, Mary Jane rash of groin B37.89 and Rash and nonspecific skin eruption R21 [facility] [id number] [place] [address] 57469- 3784 Nov, [facility] [address] 56325- 4782 Oct, Type 2 diabetes mellitus with hyperglycemia E11.65 and Mixed hyperlipidemia E78.2 [facility] [address] 58822- 7649 Oct, [facility] [address] 43753- 6434 Oct, Chest pain, unspecified R07.9 ; Palpitations R00.2 ; Syncope R55 and Mixed hyperlipidemia E78.2 [facility] [id number] [place] [address] 03085- 8452 Oct, Plantar fasciitis, bilateral M72.2 and Type 1 diabetes mellitus with diabetic neuropathy E10.40 [facility] [facility] [address] 50475- 5841 Oct, [facility] [id number] [place] [address] 89227- 6607 September, Type 2 diabetes mellitus with hyperglycemia E11.65 [facility] [id number] [place] [address] 56188- 0120 September, Type 2 diabetes mellitus with hyperglycemia E11.65 ; Type 2 diabetes mellitus with diabetic polyneuropathy E11.42 ; Gastroesophageal reflux disease with esophagitis K21.0 and Headache, unspecified headache type R51 [facility] [id number] [place] [address] 40685- 8969 September, [facility] [id number] [place] [address] 19613- 7450 September, [facility] [id number] [place] [address] 25700- 1358 September, [facility] [id number] [place] [address] 60193- 6090 September, Other chest pain R07.89 ; Heart palpitations R00.2 ; Mixed hyperlipidemia E78.2 and Obesity E66.9 [facility] [id number] [place] [address] 00535- 0953 Aug, [facility] [id number] [place] [address] 70604- 3487 Aug, Type 2 diabetes mellitus with diabetic polyneuropathy E11.42 and Type 2 diabetes mellitus with hyperglycemia E11.65 [facility] [id number] [place] [address] 93148- 1817 Aug, [facility] [address], [place] [address]- 9697 Aug, [facility] [address], [place] [address]- 5977 Aug, [facility] [address], [place] [address]- 0918 Aug, Type 2 diabetes mellitus with hyperglycemia E11.65 [facility] [address], [place] [address]- 0607 Aug, [facility] [id number] [place] [address] 41869- 8256 Jul, Type 2 diabetes mellitus with diabetic polyneuropathy E11.42 [facility] [address], [place] [address]- 0278 Jul, Type 2 diabetes mellitus with hyperglycemia E11.65 [facility] [address], [place] [address]- 0720 Jul, [facility] [address], [place] [address]- 4835 Jul, [facility] [address], [place] [address]- 4716 Jul, [facility] [address], [place] [address]- 0369 Jul, Type 2 diabetes mellitus with diabetic polyneuropathy E11.42 and Type 2 diabetes mellitus with hyperglycemia E11.65 [facility] [address], [place] [address]- 8945 Jun, Obstructive sleep apnea G47.33 [facility] [address], [place] [address]- 5724 Jun, Type 2 diabetes mellitus with diabetic polyneuropathy E11.42 ; Primary narcolepsy with cataplexy G47.411 ; Abdominal bloating R14.0 ; Other chest pain R07.89 and Vision problems H54.7 [facility] [id number] [place] [address] 07924- 4734 Jun, [facility] [id number] [place] [address] 22256- 7561 May, [facility] [id number] [place] [address] 04072- 7136 Apr, [facility] [id number] [place] [address] 12492- 6933 Apr, Plantar fasciitis of left foot M72.2 [facility] [id number] [place] [address] 62159- 5001 Mar, [facility] [id number] [place] [address] 80297- 4989 Mar, Plantar fasciitis of left foot M72.2 and Type 2 diabetes mellitus with diabetic polyneuropathy E11.42 [facility] [id number] [place] [address] 91573- 2210 Feb, Type 2 diabetes mellitus with hyperglycemia E11.65 ; Mixed hyperlipidemia E78.2 and Encounter for immunization Z23 [facility] [id number] [place] [address] 17054- 3195 Feb, [facility] [id number] [place] [address] 93732- 3145 Feb, [facility] [id number] [place] [address] 36703- 1617 Feb, Type 2 diabetes mellitus with hyperglycemia E11.65 [facility] [id number] [place] [address] 20572- 0053 Feb, Type 2 diabetes mellitus with hyperglycemia E11.65 [facility] [id number] [place] [address] 08673- 7087 Jan, [facility] [id number] [place] [address] 54278- 2173 Dec, Pain in left foot M79.672 ; Other chronic pain G89.29 ; Type 2 diabetes mellitus with hyperglycemia E11.65 ; Obstructive sleep apnea G47.33 ; Falls frequently R29.6 ; Mixed hyperlipidemia E78.2 and Gastroesophageal reflux disease with esophagitis K21.0 [facility] [id number] [place] [address] 77811- 8819 Nov, [facility] [id number] [place] [address] 68263- 6027 Oct, Type 2 diabetes mellitus with diabetic polyneuropathy E11.42 [facility] [id number] [place] [address] 46446- 5287 Oct, [facility] [id number] [place] [address] 99506- 9157 Oct, [facility] [id number] [place] [address] 18951- 8285 September, [facility] [id number] [place] [address] 11469- 5824 September, [facility] [id number] [place] [address] 88419- 1987 September, [facility] [id number] [place] [address] 15530- 6430 September, [facility] [id number] [place] [address] 13474- 9697 September, [facility] [id number] [place] [address] 41792- 9265 Aug, Type 2 diabetes mellitus with hyperglycemia E11.65 ; Mixed hyperlipidemia E78.2 and Right carpal tunnel syndrome G56.01 [facility] [id number] [place] [address] 09374- 8285 Aug, [facility] [id number] [place] [address] 12896- 5146 Jul, [facility] [id number] [place] [address] 28747- 5381 Jun, [facility] [id number] [place] [address] 40768- 6146 Jun, [facility] [id number] [place] [address] 18236- 0312 May, [facility] [id number] [place] [address] 52976- 4675 May, [facility] [id number] [place] [address] 64877- 3526 May, Type 2 diabetes mellitus with hyperglycemia E11.65 and Falls E888.9 [facility] [id number] [place] [address] 01957- 8337 Apr, Type 2 diabetes mellitus with hyperglycemia E11.65 [facility] [id number] [place] [address] 07806- 8861 Apr, [facility] [id number] [place] [address] 67903- 7454 Apr, Type 2 diabetes mellitus with hyperglycemia E11.65 [facility] [id number] [place] [address] 21601- 4440 Apr, [facility] [id number] [place] [address] 89455- 5074 Mar, Type 2 diabetes mellitus with diabetic polyneuropathy E11.42 ; Bilateral low back pain without sciatica M54.5 and Dry nose J34.89 [facility] [id number] [place] [address] 19620- 0398 Mar, Palpitations R00.2 ; Syncope R55 ; DM (diabetes mellitus) E11.9 and Obesity E66.9 [facility] [id number] [place] [address] 49635- 4395 Mar, [facility] [id number] [place] [address] 65126- 2973 Mar, [facility] [address] [place] [address]- 9504 Mar, [facility] [id number] [place] [address] 03485- 4481 Feb, [facility] [id number] [place] [address] 065190- 9733 Jan, [facility] [id number] [place] [address] 57276- 0427 Jan, [facility] [id number] [place] [address] 30378- 1648 Jan, Falls E888.9 and Sinusitis 473.9 [facility] [id number] [place] [address] 75743- 5307 Dec, [facility] [id number] [place] [address] 96979- 7613 Dec, [facility] [id number] [place] [address] 17251- 4060 Dec, [facility] [id number] [place] [address] 03696- 2850 Dec, [facility] [id number] [place] [address] 89509- 7366 Dec, Diabetes mellitus without mention of complication, type II or unspecified type, not stated as uncontrolled 250.00 and Shortness of breath 786.05 [facility] [address] [address]- 0458 Dec, [facility] [id number] [place] [address] 21863- 5699 Nov, [facility] [id number] [place] [address] 07864- 3337 Nov, [facility] [address], [place] [address]- 7082 Oct, Restrictive lung disease 518.89 [facility] [id number] [place] [address] 68159- 4808 Oct, [facility] [id number] [place] [address] 12705- 6530 Oct, Shortness of breath 786.05 [facility] [id number] [place] [address] 05479- 8751 September, Other nonspecific abnormal finding of lung field 793.19 ; Diabetes mellitus without mention of complication, type II or unspecified type, not stated as uncontrolled 250.00 ; Hyperlipidemia LDL goal < 100 272.4 ; Narcolepsy, with cataplexy 347.01 ; Shortness of breath 786.05 and Chest pain 786.50 [facility] [id number] [place] [address] 00676- 0758 Aug, [facility] [id number] [place] [address] 06241- 9817 Aug, [facility] [id number] [place] [address] 65485- 0645 Jun, [facility] [id number] [place] [address] 04884- 2012 Jun, [facility] [id number] [place] [address] 47255- 7435 Jun, [facility] [id number] [place] [address] 07246- 5794 Jun, [facility] [id number] [place] [address] 03529- 2877 Jun, [facility] [id number] [place] [address] 45898- 3264 Jun, [facility] [id number] [place] [address] 13816- 9677 Jun, [facility] [id number] [place] [address] 93939- 9705 Jun, [facility] [id number] [place] [address] 93731- 0037 May, [facility] [place] [facility] [address] [id number] [place] [address]- 2504 May, [facility] [place] [facility] [address] [id number] [place] [address] Apr, [facility] [place] [facility] [address] [id number] [place] [address] Apr, [facility] [place] [facility] [address] [id number] [place] [address] Mar, [facility] [place] [facility] [address] [id number] [place] [address] Mar, [facility] [place] [facility] [address] [id number] [place] [address] Mar, [facility] [place] [facility] [address] [id number] [place] [address] Mar, [facility] [place] [facility] [address] [id number] [place] [address] Nov, [facility] [place] [facility] [address] [id number] [place] [address] Nov, [facility] [place] [facility] [address] [id number] [place] [address] Nov, [facility] [place] [facility] [address] [id number] [place] [address] Nov, [facility] [place] [facility] [address] [id number] [place] [place] [address] Oct, [facility] [place] [facility] [address] [id number] [place] [address] Oct, [facility] [place] [facility] [address] [id number] [place] [address] Oct, [facility] [place] [facility] [address] [id number] [place] [address] Oct, [facility] [place] [facility] [address] [id number] [place] [address] 16 Oct, 2013 [facility] [place] [facility] [address] [id number] [place] [address]69 16 Oct, 2013 [facility] [place] [facility] [address] [id number] [place] [address] 39[address] Oct, [facility] [place] [facility] [address] [id number] [place] [address]27 Oct, [facility] [place] [facility] [address] [id number] [place] [address]21 Oct, [facility] [place] [facility] [address] [id number] [place] [address] Oct, [facility] [place] [facility] [address] [id number] [place] [address] September, [facility] [place] [facility] [address] [id number] [place] [address] September, [facility] [place] [facility] [address] [id number] [place] [address] Aug, [facility] [place] [facility] [address] [id number] [place] [address] Aug, [facility] [place] [facility] [address] [id number] [place] [address] Aug, [facility] [place] [facility] [address] [id number] [place] [address] 3767 Aug, [facility] [place] [facility] [address] [id number] [place] [address]- 2687 Aug, [facility] [place] [facility] [address] [id number] [place] [address]- 4660 Aug, [facility] [place] [facility] [address] [id number] [place] [address] Jul, [facility] [place] [facility] [address] [id number] [place] [address]996 Jul, [facility] [place] [facility] [address] [id number] [place] [address]- 8981 Jul, [facility] [place] [facility] [address] [id number] [place] [address] 3542 Jul, [facility] [place] [facility] [address] [id number] [place] [address]- [address]237 Jul, [facility] [place] [facility] [address] [id number] [place] [address]- 9799 Jul, [facility] [place] [facility] [address] [id number] [place] [address]- 6213 Jul, [facility] [place] [facility] [address] [id number] [place] [address]- 4207 Jul, [facility] [place] [facility] [address] [id number] [place] [address] Jul, [facility] [place] [facility] [address] [id number] [place] [address] 9149 Jul, [facility] [place] [facility] [address] [id number] [place] [address]- 7835 Jul, [facility] [place] [facility] [address] [id number] [place] [address]- 1153 Jul, [facility] [place] [facility] [address] [id number] [place] [address] 7971 Jul, [facility] [place] [facility] [address] [id number] [place] [address]- 4774 Jul, [facility] [place] [facility] [address] [id number] [place] [address]- 0601 Jul, [facility] [place] [facility] [address] [id number] [place] [address]- 3660 Jul, [facility] [place] [facility] [address] [id number] [place] [address]- 3818 Jun, [facility] [place] [facility] [address] [id number] [place] [address]- 6056 Jun, [facility] [place] [facility] [address] [id number] [place] [address]- 6[address] Jun, [facility] [place] [facility] [address] [id number] [place] [address]- 2546 Jun, [facility] [place] [facility] [address] [facility] [id number] [place] [address]- [address]781 Jun, 2013 [facility] [place] [facility] [address] [id number] [place] [address]- 2548 Jun, [facility] [place] [facility] [address] [facility] [id number] [place] [address]- 9712 Jun, [facility] [place] [facility] [address] [facility] [id number] [place] [address]- 8430 Jun, [facility] [place] [facility] [address] [facility] [id number] [place] [address]- 5692 Jun, [facility] [place] [facility] [address] [facility] [id number] [place] [address]- 5[address] Jun, [facility] [place] [facility] [address] [facility] [id number] [place] [address]- 8105 18 Jun, 2013 [facility] [place] [facility] [address] [facility] [id number] [place] [address]- 6773 18 Jun, 2013 [facility] [place] [facility] [address] [facility] [id number], [place] [address] 14 Jun, 2013 [facility] [place] [facility] [address] [facility] [id number] [place] [address]- 1038 13 Jun, 2013 [facility] [place] [facility] [address] [facility] [id number] [place] [address]- 7196 13 Jun, 2013 [facility] [place] [facility] [address] [facility] [id number] [place] [address]- 8835 13 Jun, 2013 [facility] [place] [facility] [address] [facility] [id number], [place] [address] 13 Jun, 2013 [facility] [place] [facility] [address] [id number] [place] [address]- 9376 12 Jun, 2013 [facility] [place] [facility] [address] [id number] [place] [address]- 3366 12 Jun, 2013 [facility] [place] [facility] [address] [id number] [place] [address]- 6966 Jun, 2013 [facility] [place] [facility] [address] [id number] [place] [address]- 2543 Jun, 2013 [facility] [place] [facility] [address] [id number] [place] [address]- 0465 Jun, 2013 [facility] [place] [facility] [address] [facility] [id number] [place] [address]- 5956 Jun, 2013 [facility] [place] [facility] [address] [facility] [id number] [place] [address]- 0287 Jun, 2013 [facility] [place] [facility] [address] [facility] [id number] [place] [address] Jun, 2013 [facility] [place] [facility] [address] [facility] [id number] [place] [address]- 1843 Jun, 2013 [facility] [place] [facility] [address] [facility] [id number] [place] [address]- 0635 Jun, 2013 [facility] [place] [facility] [address] [facility] [id number] [place] [address]- 3330 Jun, 2013 [facility] [place] [facility] [address] [facility] [id number] [place] [address]- 2549 Jun, 2013 [facility] [place] [facility] [address] [id number] [place] [address]- 8176 Jun, 2013 [facility] [place] [facility] [address] [facility] [id number] [place] [address]- 4277 May, [facility] [place] [facility] [address] [facility] [id number] [place] [address] 35[address] May, [facility] [place] [facility] [address] [id number] [place] [address]- 9525 May, [facility] [place] [facility] [address] [id number] [place] [address]- 8946 May, [facility] [place] [facility] [address] [id number] [place] [address]- 2650 May, [facility] [place] [facility] [address] [id number] [place] [address]- 8687 May, [facility] [place] [facility] [address] [id number] [place] [address]- 2115 May, [facility] [place] [facility] [address] [id number] [place] [address]- 6487 May, [facility] [place] [facility] [address] [id number] [place] [address]- 7806 May, [facility] [place] [facility] [address] [id number] [place] [address]- 2155 May, [facility] [place] [facility] [address] [id number] [place] [address]- 0125 May, [facility] [place] [facility] [address] [id number] [place] [address]- 8283 May, [facility] [place] [facility] [address] [id number], [place] [address]- 8039 May, [facility] [place] [facility] [address] [id number], [place] [address]- 8467 May, [facility] [place] [facility] [address] [id number] [place] [address]- 9502 May, [facility] [place] [facility] [address] [id number] [place] [address]- 1820 Apr, [facility] [place] [facility] [address] [id number] [place] [address]- 8209 Apr, [facility] [place] [facility] [address] [facility] [id number], [place] [address]- [address] Dec, [facility] [address] [id number], [place] [address] Nov, [facility] [address] [id number], [place] [address]- 3424 May, [facility] [address] [id number], [place] [address]- 6896 Apr, [facility] [address] [id number], [place] [address]- 7642 Apr, [facility] [address] [id number], [place] [address]- 4769 Apr, [facility] [address] [id number] [address] Apr, IMMUNIZATIONS No Known Immunizations SOCIAL HISTORY [...] History hysterectomy, partial Hospitalization History Chest pain-[facility] 02/27/17 Hospitalization History ER 03/08/18
--- OUTSIDE RECORDS SUMMARY | 2018-03-22 20:48 | XMS REPORT ---
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 Name Role Phone MARGIE BLETRÁNTA Unavailable PROBLEMS Type Condition ICD9-CM Code BGQ19-NL Code Onset Dates Condition Status SNOMED Code Problem Primary narcolepsy with cataplexy G47.411 Active 114993621 Problem Gastroesophageal reflux disease with esophagitis K21.0 Active 174631164 Problem Right carpal tunnel syndrome G56.01 Active 68829627 Problem Seasonal allergic rhinitis, unspecified trigger J30.2 Active 420900091 Problem Porokeratosis Q82.8 Active 529692402 Problem Obesity E66.9 Active 875695318 Problem Other chronic pain G89.29 Active 71984761 Problem Non-alcoholic fatty liver disease K76.0 Active 777025915 Problem Tarsal tunnel syndrome of left side G57.52 Active 90736499 Problem Nuclear cataract of both eyes H25.13 Active 10888844 Problem Presbyopia OU H52.4 Active 38003687 Problem Posterior subcapsular age-related cataract of both eyes H25.043 Active 6345511 Problem Type 2 diabetes mellitus with hyperglycemia E11.65 Active 67219077 Problem Lung nodule R91.1 Active 987276576 Problem Delayed gastric emptying K30 Active 956428552 Problem Obstructive sleep apnea G47.33 Active 59691710 Problem Hypermetropia, bilateral H52.03 Active 43873364 Problem Mixed hyperlipidemia E78.2 Active 524882433 ALLERGIES No Information ENCOUNTERS Encounter Location Date Diagnosis [facility] [id number], [place] [address] Apr, [facility] [address] [address] 6768 Mar, [facility] [id number], [place] [address] 1686 Mar, [facility] [id number] [place] [address] 87036- 6168 Feb, [facility] [id number] [place] [address] 43284- 0369 Feb, Type 2 diabetes mellitus with hyperglycemia E11.65 and Epigastric abdominal pain R10.13 [facility] [id number] [place] [address] 15743- 1788 Feb, [facility] [id number] [place] [address] 48716- 7656 Feb, [facility] [id number] [place] [address] 15643- 0593 Feb, [facility] [id number] [place] [address] 64087- 3582 Feb, Seasonal allergic rhinitis, unspecified trigger J30.2 [facility] [id number] [place] [address] 39052- 2019 Feb, Type 2 diabetes mellitus with hyperglycemia E11.65 [facility] [id number] [place] [address] 34326- 1308 Feb, Viral upper respiratory tract infection J06.9 and Encounter for immunization Z23 [facility] [id number] [place] [address] 17557- 2088 Feb, [facility] [id number] [place] [address] 64236- 5826 Jan, Type 2 diabetes mellitus with hyperglycemia E11.65 [facility] [id number] [place] [address] 95946- 6242 Jan, Type 2 diabetes mellitus with hyperglycemia E11.65 [facility] [id number] [place] [address] 46478- 9015 Dec, Chest pain on breathing R07.1 [facility] [id number] [place] [address] 01276 -1934 Dec, Chest pain on breathing R07.1 [facility] [id number] [place] [address] 94564- 3612 Dec, Well woman exam Z01.419 ; Screening for breast cancer Z12.31 and Screening for colon cancer Z12.11 [facility] [id number] [place] [address] 59332- 7098 Dec, [facility] [address] 24069- 7471 Dec, Type 2 diabetes mellitus with hyperglycemia E11.65 ; Mixed hyperlipidemia E78.2 and Gastroesophageal reflux disease with esophagitis K21.0 [facility] [address] 18632- 8852 Nov, Type 2 diabetes mellitus with hyperglycemia E11.65 and Mixed hyperlipidemia E78.2 [facility] [id number] [place] [address] 71865- 1825 Nov, [facility] [id number] [place] [address] 12873- 7391 Oct, Back muscle spasm M62.830 and Bilateral low back pain without sciatica M54.5 [facility] [id number] [place] [address] 42107- 6118 Oct, [facility] [id number] [place] [address] 91742- 4963 September, [facility] [id number] [place] [address] 81244- 7484 September, Type 2 diabetes mellitus with hyperglycemia E11.65 [facility] [id number] [place] [address] 59554- 8347 September, Type 2 diabetes mellitus with hyperglycemia E11.65 [facility] [id number] [place] [address] 22187- 1582 September, Porokeratosis Q82.8 and Type 2 diabetes mellitus with diabetic polyneuropathy E11.42 [facility] [address] 49215 -2351 Aug, Seasonal allergic rhinitis, unspecified trigger J30.2 [facility] [address] 01376- 3820 Aug, [facility] [address] 37883- 3239 Aug, Bilateral low back pain without sciatica M54.5 [facility] [address] [id number] Aug, Dental examination V72.2 and Dental examination Z01.20 [place] [address] 14159- 7812 Aug, Dental examination Z01.20 and Dental caries K02.9 [facility] [address] 21108- 4286 Aug, Obstructive sleep apnea G47.33 ; Obesity E66.9 ; Type 2 diabetes mellitus with hyperglycemia E11.65 ; Palpitations R00.2 and Corns and callosities L84 [facility] [address] 32458- 1972 Jul, [facility] [address] 58031- 0749 Jul, [facility] [address] 94644- 5035 Jun, Type 2 diabetes mellitus with hyperglycemia E11.65 ; Colon cancer screening Z12.11 ; Mixed hyperlipidemia E78.2 ; Non-alcoholic fatty liver disease K76.0 ; Gastroesophageal reflux disease with esophagitis K21.0 and Pain of upper abdomen R10.10 [facility] [address] 43311- 3448 09 Jun, 2017 Falls frequently R29.6 [facility] [address] 68291 -8818 May, Infection of nose J34.89 [facility] [id number] [place] [address] 32829- 8187 May, Bilateral low back pain without sciatica M54.5 [facility] [id number] [place] [address] 35291- 6461 May, Type 2 diabetes mellitus with diabetic polyneuropathy E11.42 ; Obstructive sleep apnea G47.33 and Type 2 diabetes mellitus with hyperglycemia E11.65 [facility] [address] 46636- 1502 Apr, Bilateral low back pain without sciatica M54.5 [facility] [address] 30245- 0947 Apr, Mixed hyperlipidemia E78.2 and Type 2 diabetes mellitus with hyperglycemia E11.65 [facility] [id number] [place] [address] 52058- 7338 Apr, Type 2 diabetes mellitus with diabetic polyneuropathy E11.42 [facility] [id number] [place] [address] 13159- 8549 Apr, [facility] [id number] [place] [address] 53917- 8542 Apr, Skin lesion of left arm L98.9 and Skin lesion of left leg L98.9 [facility] [id number] [place] [address] 10195- 7559 Mar, Bilateral low back pain without sciatica M54.5 [facility] [id number] [place] [address] 21204- 7872 Mar, Plantar fasciitis of left foot M72.2 ; Bursitis of left foot M71.572 and Type 2 diabetes mellitus with diabetic polyneuropathy E11.42 [facility] [id number] [place] [address] 44182- 8314 Feb, Non-alcoholic fatty liver disease K76.0 ; Keratoacanthoma L85.8 ; Seborrheic keratosis L82.1 ; Type 2 diabetes mellitus with hyperglycemia E11.65 and Nuclear cataract of both eyes H25.13 [facility] [address] [id number] Feb, [facility] [address] 22127- 8146 Feb, [facility] [address] 24925- 0507 Feb, [facility] [address] 60632- 8576 Feb, Type 2 diabetes mellitus with hyperglycemia E11.65 ; Back muscle spasm M62.830 and Encounter for immunization Z23 [facility] [address] 40729- 3346 Jan, Plantar fasciitis of left foot M72.2 [facility] [address] 42990- 9696 Dec, [facility] [address] 54270- 9776 Dec, Plantar fasciitis of left foot M72.2 and Tarsal tunnel syndrome of left side G57.52 [facility] [address] 69437- 3587 Dec, [facility] [address] 32846 -4110 Nov, Mary Jane rash of groin B37.89 and Rash and nonspecific skin eruption R21 [facility] [id number] [place] [address] 05969- 6239 Nov, [facility] [address] 07089- 9753 Oct, Type 2 diabetes mellitus with hyperglycemia E11.65 and Mixed hyperlipidemia E78.2 [facility] [address] 64419- 6941 Oct, [facility] [address] 27590- 9901 Oct, Chest pain, unspecified R07.9 ; Palpitations R00.2 ; Syncope R55 and Mixed hyperlipidemia E78.2 [facility] [id number] [place] [address] 72618- 1476 Oct, Plantar fasciitis, bilateral M72.2 and Type 1 diabetes mellitus with diabetic neuropathy E10.40 [facility] [address] 63084- 7836 Oct, [facility] [id number] [place] [address] 44135- 8715 September, Type 2 diabetes mellitus with hyperglycemia E11.65 [facility] [id number] [place] [address] 97095- 9457 September, Type 2 diabetes mellitus with hyperglycemia E11.65 ; Type 2 diabetes mellitus with diabetic polyneuropathy E11.42 ; Gastroesophageal reflux disease with esophagitis K21.0 and Headache, unspecified headache type R51 [facility] [id number] [place] [address] 56631- 6659 September, [facility] [id number] [place] [address] 29330- 4677 September, [facility] [id number] [place] [address] 96739- 2942 September, [facility] [id number] [place] [address] 68288- 2749 September, Other chest pain R07.89 ; Heart palpitations R00.2 ; Mixed hyperlipidemia E78.2 and Obesity E66.9 [facility] [id number] [place] [address] 21590- 4997 Aug, [facility] [id number] [place] [address] 44166- 5261 Aug, Type 2 diabetes mellitus with diabetic polyneuropathy E11.42 and Type 2 diabetes mellitus with hyperglycemia E11.65 [facility] [id number] [place] [address] 62291- 7192 Aug, [facility] [address], [place] [address]- 3245 Aug, [facility] [address], [place] [address]- 3411 Aug, [facility] [address], [place] [address]- 7762 Aug, Type 2 diabetes mellitus with hyperglycemia E11.65 [facility] [address], [place] [address]- 1190 Aug, [facility] [address] [place] [address] 38216- 3201 Jul, Type 2 diabetes mellitus with diabetic polyneuropathy E11.42 [facility] [address], [place] [address]- 0553 Jul, Type 2 diabetes mellitus with hyperglycemia E11.65 [facility] [address], [place] [address]- 1970 Jul, [facility] [address], [place] [address]- 4070 Jul, [facility] [address], [place] [address]- 5596 Jul, [facility] [address], [place] [address]- 7276 Jul, Type 2 diabetes mellitus with diabetic polyneuropathy E11.42 and Type 2 diabetes mellitus with hyperglycemia E11.65 [facility] [address], [place] [address]- 1762 Jun, Obstructive sleep apnea G47.33 [facility] [address], [place] [address]- 8941 Jun, Type 2 diabetes mellitus with diabetic polyneuropathy E11.42 ; Primary narcolepsy with cataplexy G47.411 ; Abdominal bloating R14.0 ; Other chest pain R07.89 and Vision problems H54.7 [facility] [id number] [place] [address] 43093- 9761 Jun, [facility] [id number] [place] [address] 76366- 8592 May, [facility] [id number] [place] [address] 35861- 3948 Apr, [facility] [id number] [place] [address] 12545- 4332 Apr, Plantar fasciitis of left foot M72.2 [facility] [id number] [place] [address] 14984- 7350 Mar, [facility] [id number] [place] [address] 75006- 3207 Mar, Plantar fasciitis of left foot M72.2 and Type 2 diabetes mellitus with diabetic polyneuropathy E11.42 [facility] [id number] [place] [address] 09754- 3469 Feb, Type 2 diabetes mellitus with hyperglycemia E11.65 ; Mixed hyperlipidemia E78.2 and Encounter for immunization Z23 [facility] [id number] [place] [address] 72735- 7564 Feb, [facility] [id number] [place] [address] 31681- 2814 Feb, [facility] [id number] [place] [address] 22361- 8222 Feb, Type 2 diabetes mellitus with hyperglycemia E11.65 [facility] [id number] [place] [address] 76879- 6067 Feb, Type 2 diabetes mellitus with hyperglycemia E11.65 [facility] [id number] [place] [address] 41416- 0390 Jan, [facility] [id number] [place] [address] 37293- 9414 Dec, Pain in left foot M79.672 ; Other chronic pain G89.29 ; Type 2 diabetes mellitus with hyperglycemia E11.65 ; Obstructive sleep apnea G47.33 ; Falls frequently R29.6 ; Mixed hyperlipidemia E78.2 and Gastroesophageal reflux disease with esophagitis K21.0 [facility] [id number] [place] [address] 38832- 0109 Nov, [facility] [id number] [place] [address] 05640- 2517 Oct, Type 2 diabetes mellitus with diabetic polyneuropathy E11.42 [facility] [id number] [place] [address] 81973- 9024 Oct, [facility] [id number] [place] [address] 07708- 8384 Oct, [facility] [id number] [place] [address] 83888- 0327 September, [facility] [id number] [place] [address] 84677- 5206 September, [facility] [id number] [place] [address] 64072- 7856 September, [facility] [id number] [place] [address] 07697- 5151 September, [facility] [id number] [place] [address] 70046- 8424 September, [facility] [id number] [place] [address] 51493- 3935 Aug, Type 2 diabetes mellitus with hyperglycemia E11.65 ; Mixed hyperlipidemia E78.2 and Right carpal tunnel syndrome G56.01 [facility] [id number] [place] [address] 13345- 3281 Aug, [facility] [id number] [place] [address] 81029- 0067 Jul, [facility] [id number] [place] [address] 65577- 7323 Jun, [facility] [address] [place] [address] 78995- 8423 Jun, [facility] [id number] [place] [address] 29183- 0676 May, [facility] [id number] [place] [address] 93926- 4020 May, [facility] [id number] [place] [address] 39653- 6920 May, Type 2 diabetes mellitus with hyperglycemia E11.65 and Falls E888.9 [facility] [id number] [place] [address] 09961- 0042 Apr, Type 2 diabetes mellitus with hyperglycemia E11.65 [facility] [id number] [place] [address] 27975- 9603 Apr, [facility] [id number] [place] [address] 13778- 9518 Apr, Type 2 diabetes mellitus with hyperglycemia E11.65 [facility] [id number] [place] [address] 49017- 2961 Apr, [facility] [id number] [place] [address] 92868- 4722 Mar, Type 2 diabetes mellitus with diabetic polyneuropathy E11.42 ; Bilateral low back pain without sciatica M54.5 and Dry nose J34.89 [facility] [id number] [place] [address] 85611- 5334 Mar, Palpitations R00.2 ; Syncope R55 ; DM (diabetes mellitus) E11.9 and Obesity E66.9 [facility] [id number] [place] [address] 26830- 3336 Mar, [facility] [id number] [place] [address] 41043- 8346 Mar, [facility] [address] [address]- 1560 Mar, [facility] [id number] [place] [address] 70452- 3451 Feb, [facility] [id number] [place] [address] 321041- 6194 Jan, [facility] [id number] [place] [address] 09012- 4412 Jan, [facility] [id number] [place] [address] 19535- 3744 Jan, Falls E888.9 and Sinusitis 473.9 [facility] [id number] [place] [address] 48492- 8923 Dec, [facility] [id number] [place] [address] 70659- 7084 Dec, [facility] [id number] [place] [address] 28671- 5027 Dec, [facility] [id number] [place] [address] 15328- 8481 Dec, [facility] [id number] [place] [address] 03198- 9068 Dec, Diabetes mellitus without mention of complication, type II or unspecified type, not stated as uncontrolled 250.00 and Shortness of breath 786.05 [facility] [address] [address]- 2035 Dec, [facility] [id number] [place] [address] 52500- 8622 Nov, [facility] [id number] [place] [address] 75147- 5939 Nov, [facility] [address] [place] [address]- 2764 Oct, Restrictive lung disease 518.89 [facility] [id number] [place] [address] 69048- 2238 Oct, [facility] [id number] [place] [address] 92733- 1693 Oct, Shortness of breath 786.05 [facility] [id number] [place] [address] 45249- 0898 September, Other nonspecific abnormal finding of lung field 793.19 ; Diabetes mellitus without mention of complication, type II or unspecified type, not stated as uncontrolled 250.00 ; Hyperlipidemia LDL goal < 100 272.4 ; Narcolepsy, with cataplexy 347.01 ; Shortness of breath 786.05 and Chest pain 786.50 [facility] [id number] [place] [address] 67298- 1131 Aug, [facility] [id number] [place] [address] 04395- 8114 Aug, [facility] [id number] [place] [address] 01745- 4836 Jun, [facility] [id number] [place] [address] 99292- 8503 Jun, [facility] [id number] [place] [address] 85688- 9881 Jun, [facility] [id number] [place] [address] 24781- 2514 Jun, [facility] [id number] [place] [address] 77306- 2817 Jun, [facility] [id number] [place] [address]67- 5479 Jun, [facility] [id number] [place] [id number]- [address]30 Jun, [facility] [id number] [place] [id number]- 1892 Jun, [facility] [id number] [place] [id number]- [address]53 May, [facility] [place] [facility] [address] [id number] [place] [address] May, [facility] [place] [facility] [address] [id number] [place] [address] Apr, [facility] [place] [facility] [address] [id number] [place] [address] Apr, [facility] [place] [facility] [address] [id number] [place] [address] Mar, [facility] [place] [facility] [address] [id number] [place] [address]262 Mar, [facility] [place] [facility] [address] [id number] [place] [address]181 Mar, [facility] [place] [facility] [address] [id number] [place] [address] Mar, [facility] [place] [facility] [address] [id number] [place] [address] Nov, [facility] [place] [facility] [address] [id number] [place] [address] Nov, [facility] [place] [facility] [address] [id number] [place] [address] Nov, [facility] [place] [facility] [address] [id number] [place] [address] Nov, [facility] [place] [facility] [address] [id number] [place] [address] 286[address] Oct, [facility] [place] [facility] [address] [id number] [place] [address] Oct, [facility] [place] [facility] [address] [id number] [place] [address] Oct, [facility] [place] [facility] [address] [id number] [place] [address] Oct, [facility] [place] [facility] [address] [id number] [place] [address] 16 Oct, 2013 [facility] [place] [facility] [address] [id number] [place] [address] 16 Oct, 2013 [facility] [place] [facility] [address] [id number] [place] [address] Oct, [facility] [place] [facility] [address] [id number] [place] [address] Oct, [facility] [place] [facility] [address] [id number] [place] [address] 4[address] Oct, [facility] [place] [facility] [address] [id number] [place] [address] Oct, [facility] [place] [facility] [address] [id number] [place] [address] September, [facility] [place] [facility] [address] [id number] [place] [address] September, [facility] [place] [facility] [address] [id number] [place] [address] Aug, [facility] [place] [facility] [address] [id number] [place] [address] 1657 Aug, [facility] [place] [facility] [address] [id number] [place] [address] 38[address] Aug, [facility] [place] [facility] [address] [id number] [place] [address]- 7346 Aug, [facility] [place] [facility] [address] [id number] [place] [address]- 5728 Aug, [facility] [place] [facility] [address] [id number] [place] [address]- [address] Aug, [facility] [place] [facility] [address] [id number] [place] [address] Jul, [facility] [place] [facility] [address] [id number] [place] [address]- 9049 Jul, [facility] [place] [facility] [address] [id number] [place] [address]- 6699 Jul, [facility] [place] [facility] [address] [id number] [place] [address]- 0732 Jul, [facility] [place] [facility] [address] [id number] [place] [address]- 7248 Jul, [facility] [place] [facility] [address] [id number] [place] [address]- 4280 Jul, [facility] [place] [facility] [address] [id number] [place] [address]- 0860 Jul, [facility] [place] [facility] [address] [id number] [place] [address]- 6581 Jul, [facility] [place] [facility] [address] [id number] [place] [address]- 6169 Jul, [facility] [place] [facility] [address] [id number] [place] [address]- 8495 Jul, [facility] [place] [facility] [address] [id number] [place] [address] 270[address] Jul, [facility] [place] [facility] [address] [id number] [place] [address]- 0605 Jul, [facility] [place] [facility] [address] [id number] [place] [address]- 2685 Jul, [facility] [place] [facility] [address] [id number] [place] [address]- 8983 Jul, [facility] [place] [facility] [address] [id number] [place] [address]- 0789 Jul, [facility] [place] [facility] [address] [id number] [place] [address] 4117 Jul, [facility] [place] [facility] [address] [id number] [place] [address]- 9240 Jun, [facility] [place] [facility] [address] [id number] [place] [address] 1080 Jun, [facility] [place] [facility] [address] [id number] [place] [address]- 2446 Jun, [facility] [place] [facility] [address] [id number] [place] [address]- 2546 Jun, [facility] [place] [facility] [address] [facility] [id number] [place] [address]- 7366 Jun, 2013 [facility] [place] [facility] [address] [id number] [place] [address]- 2549 Jun, [facility] [place] [facility] [address] [facility] [id number] [place] [address]- 7892 Jun, [facility] [place] [facility] [address] [facility] [id number] [place] [address]- 9641 Jun, [facility] [place] [facility] [address] [facility] [id number] [place] [address]- 2312 Jun, [facility] [place] [facility] [address] [facility] [id number] [place] [address]- 0472 Jun, [facility] [place] [facility] [address] [facility] [id number] [place] [address]- 5699 18 Jun, 2013 [facility] [place] [facility] [address] [facility] [id number] [place] [address]- 2286 18 Jun, 2013 [facility] [place] [facility] [address] [facility] [id number], [place] [address] 14 Jun, 2013 [facility] [place] [facility] [address] [facility] [id number] [place] [address]- 8120 13 Jun, 2013 [facility] [place] [facility] [address] [facility] [id number] [place] [address]- 2561 13 Jun, 2013 [facility] [place] [facility] [address] [facility] [id number] [place] [address]- 0191 13 Jun, 2013 [facility] [place] [facility] [address] [facility] [id number], [place] [address] 13 Jun, 2013 [facility] [place] [facility] [address] [id number] [place] [address]- 8216 12 Jun, 2013 [facility] [place] [facility] [address] [id number] [place] [address]- 4076 12 Jun, 2013 [facility] [place] [facility] [address] [id number] [place] [address]- 5706 Jun, 2013 [facility] [place] [facility] [address] [id number] [place] [address]- 1190 Jun, 2013 [facility] [place] [facility] [address] [id number] [place] [address]- 1858 Jun, 2013 [facility] [place] [facility] [address] [facility] [id number] [place] [address]- 3655 Jun, 2013 [facility] [place] [facility] [address] [facility] [id number] [place] [address]- 5419 Jun, 2013 [facility] [place] [facility] [address] [facility] [id number] [place] [address]- 8714 Jun, 2013 [facility] [place] [facility] [address] [facility] [id number] [place] [address]- 3303 Jun, 2013 [facility] [place] [facility] [address] [facility] [id number] [place] [address]- 3494 Jun, 2013 [facility] [place] [facility] [address] [facility] [id number] [place] [address]- 2634 Jun, 2013 [facility] [place] [facility] [address] [facility] [id number] [place] [address]- 254 Jun, 2013 [facility] [place] [facility] [address] [id number] [place] [address]- 5546 Jun, 2013 [facility] [place] [facility] [address] [facility] [id number] [place] [address]- 1074 May, [facility] [place] [facility] [address] [facility] [id number] [place] [address] 5417 May, [facility] [place] [facility] [address] [id number] [place] [address]- 9148 May, [facility] [place] [facility] [address] [id number] [place] [address]- 3270 May, [facility] [place] [facility] [address] [id number] [place] [address]- 9738 May, [facility] [place] [facility] [address] [id number] [place] [address]- 6479 May, [facility] [place] [facility] [address] [id number] [place] [address]- 7782 May, [facility] [place] [facility] [address] [id number] [place] [address]- 4278 May, [facility] [place] [facility] [address] [id number] [place] [address]- 7936 May, [facility] [place] [facility] [address] [id number] [place] [address]- 3589 May, [facility] [place] [facility] [address] [id number] [place] [address]- 7867 May, [facility] [place] [facility] [address] [id number] [place] [address]- 7820 May, [facility] [place] [facility] [address] [id number], [place] [address]- 3377 May, [facility] [place] [facility] [address] [id number], [place] [address]- [address]72 May, [facility] [place] [facility] [address] [id number] [place] [address]- 0915 May, [facility] [place] [facility] [address] [id number] [place] [address]- 4547 Apr, [facility] [place] [facility] [address] [id number] [place] [address]- 2794 Apr, [facility] [place] [facility] [address] [facility] [id number], [place] [address]- [address] Dec, [facility] [address] [id number], [place] [address] Nov, [facility] [address] [id number], [place] [address] 9982 May, [facility] [address] [id number], [place] [address] 7398 Apr, [facility] [address] [id number], [place] [address] 8343 Apr, [facility] [address] [id number], [place] [address] 389[address] Apr, [facility] [address] [id number] Apr, IMMUNIZATIONS No Known Immunizations SOCIAL HISTORY Never Assessed REASON FOR VISIT Refill Request PLAN OF CARE VITAL SIGNS MEDICATIONS Unknown [...] Surgical History hysterectomy, partial Hospitalization History Chest pain-[facility] 02/27/17 Hospitalization History ER 03/08/18
--- OUTSIDE RECORDS SUMMARY | 2018-03-22 20:49 | XMS REPORT ---
Author Author JEFF BELTRÁN [facility] [address] Address [address] [place] [address] Care Team Providers Care Stock Puller Name Role Phone MARGIE BELTRÁNTA Unavailable PROBLEMS Type Condition ICD9-CM Code MHA13-BM Code Onset Dates Condition Status SNOMED Code Problem Primary narcolepsy with cataplexy G47.411 Active 130928270 Problem Gastroesophageal reflux disease with esophagitis K21.0 Active 113504032 Problem Right carpal tunnel syndrome G56.01 Active 14629818 Problem Seasonal allergic rhinitis, unspecified trigger J30.2 Active 097111759 Problem Porokeratosis Q82.8 Active 034639798 Problem Obesity E66.9 Active 996429377 Problem Other chronic pain G89.29 Active 12141447 Problem Non-alcoholic fatty liver disease K76.0 Active 675317085 Problem Tarsal tunnel syndrome of left side G57.52 Active 46598470 Problem Nuclear cataract of both eyes H25.13 Active 13025718 Problem Presbyopia OU H52.4 Active 90273810 Problem Posterior subcapsular age-related cataract of both eyes H25.043 Active 9162232 Problem Type 2 diabetes mellitus with hyperglycemia E11.65 Active 21852362 Problem Lung nodule R91.1 Active 844800163 Problem Delayed gastric emptying K30 Active 834015040 Problem Obstructive sleep apnea G47.33 Active 16455921 Problem Hypermetropia, bilateral H52.03 Active 45059044 Problem Mixed hyperlipidemia E78.2 Active [id number] ALLERGIES No Information ENCOUNTERS Encounter Location Date Diagnosis [facility] [id number] [address] Apr, [facility] [address] [address] Feb, [facility] [id number], [place] [address] 7[address] Feb, [facility] [id number] [place] [address] 04080- [address]92 Feb, [facility] [id number] [place] [address] 21843- 4460 Feb, [facility] [id number] [place] [address] 75859- 1489 Feb, Seasonal allergic rhinitis, unspecified trigger J30.2 [facility] [address] [address]20- 2496 Feb, Type 2 diabetes mellitus with hyperglycemia E11.65 [facility] [address] 85031- 6474 Feb, Viral upper respiratory tract infection J06.9 and Encounter for immunization Z23 [facility] [id number] [place] [address] 47105- 0745 Feb, [facility] [id number] [place] [address] 30609- 6568 Jan, Type 2 diabetes mellitus with hyperglycemia E11.65 [facility] [address] 09708- 7405 Jan, Type 2 diabetes mellitus with hyperglycemia E11.65 [facility] [id number] [place] [address] 22998- 0991 Dec, Chest pain on breathing R07.1 [facility] [id number] [place] [address] 73904 -7782 Dec, Chest pain on breathing R07.1 [facility] [id number] [place] [address] 82693- 1827 Dec, Well woman exam Z01.419 ; Screening for breast cancer Z12.31 and Screening for colon cancer Z12.11 [facility] [id number] [place] [address] 58880- 8334 Dec, [facility] [address] 43258- 5240 Dec, Type 2 diabetes mellitus with hyperglycemia E11.65 ; Mixed hyperlipidemia E78.2 and Gastroesophageal reflux disease with esophagitis K21.0 [facility] [id number] [place] [address] 83591- 8847 Nov, Type 2 diabetes mellitus with hyperglycemia E11.65 and Mixed hyperlipidemia E78.2 [facility] [address] [address]105- 8482 Nov, [facility] [address] 21872- 5534 Oct, Back muscle spasm M62.830 and Bilateral low back pain without sciatica M54.5 [facility] [id number] [place] [address] 86207- 5736 Oct, [facility] [id number] [place] [address] 51532- 4364 September, [facility] [id number] [place] [address] 31057- 8310 September, Type 2 diabetes mellitus with hyperglycemia E11.65 [facility] [id number] [place] [address] 70605- 6059 September, Type 2 diabetes mellitus with hyperglycemia E11.65 [facility] [id number] [place] [address] 53342- 5766 September, Porokeratosis Q82.8 and Type 2 diabetes mellitus with diabetic polyneuropathy E11.42 [facility] [id number] [place] [address] 74468 -5597 Aug, Seasonal allergic rhinitis, unspecified trigger J30.2 [facility] [id number] [place] [address] 05944- 4802 Aug, [facility] [id number] [place] [address] 05304- 6897 Aug, Bilateral low back pain without sciatica M54.5 [facility] [id number] [place] [address] [id number] Aug, 2017 Dental examination V72.2 and Dental examination Z01.20 [facility] [id number] [place] [address] 57520- 0993 Aug, Dental examination Z01.20 and Dental caries K02.[address] 09444- 5091 Aug, Obstructive sleep apnea G47.33 ; Obesity E66.9 ; Type 2 diabetes mellitus with hyperglycemia E11.65 ; Palpitations R00.2 and Corns and callosities L84 [address] 70477- 1327 Jul, [place] [facility] [address] 30132- 5417 Jul, [place] [facility] [address] 78889- 7932 Jun, Type 2 diabetes mellitus with hyperglycemia E11.65 ; Colon cancer screening Z12.11 ; Mixed hyperlipidemia E78.2 ; Non-alcoholic fatty liver disease K76.0 ; Gastroesophageal reflux disease with esophagitis K21.0 and Pain of upper abdomen R10.10 [facility] [id number] [place] [address] 60572- 3742 09 Jun, 2017 Falls frequently R29.6 [facility] [id number] [place] [address] 57991 -1705 May, Infection of nose J34.[address] 34651- 6964 May, Bilateral low back pain without sciatica M54.5 [facility] [id number] [place] [address] 86724- 5927 May, Type 2 diabetes mellitus with diabetic polyneuropathy E11.42 ; Obstructive sleep apnea G47.33 and Type 2 diabetes mellitus with hyperglycemia E11.65 [facility] [address] [place] [address]- 1030 Apr, Bilateral low back pain without sciatica M54.5 [facility] [id number] [place] [address] 42825- 7591 Apr, Mixed hyperlipidemia E78.2 and Type 2 diabetes mellitus with hyperglycemia E11.65 [facility] [id number] [place] [address] 58891- 9071 Apr, Type 2 diabetes mellitus with diabetic polyneuropathy E11.42 [facility] [id number] [place] [address] 88015- 8885 Apr, [facility] [id number] [place] [address] 40335- 7654 Apr, Skin lesion of left arm L98.9 and Skin lesion of left leg L98.9 [facility] [id number] [place] [address] 39023- 8089 Mar, Bilateral low back pain without sciatica M54.5 [facility] [id number] [place] [address] 99728- 8150 Mar, Plantar fasciitis of left foot M72.2 ; Bursitis of left foot M71.572 and Type 2 diabetes mellitus with diabetic polyneuropathy E11.42 [facility] [address], [place] [address]- 3941 Feb, Non-alcoholic fatty liver disease K76.0 ; Keratoacanthoma L85.8 ; Seborrheic keratosis L82.1 ; Type 2 diabetes mellitus with hyperglycemia E11.65 and Nuclear cataract of both eyes H25.13 [facility] [id number] [place] [address] [id number] Feb, [facility] [id number] [place] [address] 96948- 2872 Feb, [facility] [address], [place] [address]- 5534 Feb, [facility] [address] 05212- 8175 Feb, Type 2 diabetes mellitus with hyperglycemia E11.65 ; Back muscle spasm M62.830 and Encounter for immunization Z23 [place] [address] 66205- 5199 Jan, Plantar fasciitis of left foot M72.2 [place] [address] 34257- 7587 Dec, [place] [address] 02326- 0480 Dec, Plantar fasciitis of left foot M72.2 and Tarsal tunnel syndrome of left side G57.52 [place] [address] 61664- 4538 Dec, [facility] [address] 73239 -9089 Nov, Mary Jane rash of groin B37.89 and Rash and nonspecific skin eruption R21 [place] [address] 81872- 5137 Nov, [place] [address] 47459- 0547 Oct, Type 2 diabetes mellitus with hyperglycemia E11.65 and Mixed hyperlipidemia E78.2 [place] [address] 59959- 3137 Oct, [place] [address] 33376- 1368 Oct, Chest pain, unspecified R07.9 ; Palpitations R00.2 ; Syncope R55 and Mixed hyperlipidemia E78.2 [place] [address] 79978- 8936 Oct, Plantar fasciitis, bilateral M72.2 and Type 1 diabetes mellitus with diabetic neuropathy E10.40 [place] [address] 20284- 0081 Oct, [facility] [id number] [place] [address] 59707- 7559 September, Type 2 diabetes mellitus with hyperglycemia E11.65 [facility] [id number] [place] [address] 54572- 9241 September, Type 2 diabetes mellitus with hyperglycemia E11.65 ; Type 2 diabetes mellitus with diabetic polyneuropathy E11.42 ; Gastroesophageal reflux disease with esophagitis K21.0 and Headache, unspecified headache type R51 [facility] [id number] [place] [address] 52764- 0569 September, [facility] [id number] [place] [address] 85126- 8009 September, [facility] [id number] [place] [address] 75672- 6832 September, [facility] [id number] [place] [address] 80268- 1974 September, Other chest pain R07.89 ; Heart palpitations R00.2 ; Mixed hyperlipidemia E78.[address] [facility] [id number] [place] [address] 45190- 9755 Aug, [facility] [id number] [place] [address] 32787- 2151 Aug, Type 2 diabetes mellitus with diabetic polyneuropathy E11.42 and Type 2 diabetes mellitus with hyperglycemia E11.65 [facility] [address] [place] [address] 82816- 4366 Aug, [facility] [id number] [place] [address] 24540- 2127 Aug, [facility] [id number] [place] [address] 67792- 3770 Aug, [facility] [id number] [place] [address] 36063- 5012 Aug, Type 2 diabetes mellitus with hyperglycemia E11.65 [facility] [address], [place] [address]- 6363 Aug, [facility] [address], [place] [address]- 0905 Jul, Type 2 diabetes mellitus with diabetic polyneuropathy E11.42 [facility] [address], [place] [address]- 1089 Jul, Type 2 diabetes mellitus with hyperglycemia E11.65 [facility] [address], [place] [address]- 7283 Jul, [facility] [address] [place] [address] 08343- 4360 Jul, [facility] [address] [place] [address] 99087- 2245 Jul, [facility] [address] [place] [address] 40417- 3084 Jul, Type 2 diabetes mellitus with diabetic polyneuropathy E11.42 and Type 2 diabetes mellitus with hyperglycemia E11.65 [facility] [address] [place] [address] 99538- 6294 Jun, Obstructive sleep apnea G47.33 [facility] [address], [place] [address]- 1649 Jun, Type 2 diabetes mellitus with diabetic polyneuropathy E11.42 ; Primary narcolepsy with cataplexy G47.411 ; Abdominal bloating R14.0 ; Other chest pain R07.89 and Vision problems H54.7 [facility] [address], [place] [address]- 0450 Jun, [facility] [address], [place] [address]- 9914 May, [facility] [address], [place] [address]- 8385 Apr, [facility] [id number] [place] [address] 54434- 2963 Apr, Plantar fasciitis of left foot M72.2 [place] [address] 57086- 5343 Mar, [place] [address] 72520- 1945 Mar, Plantar fasciitis of left foot M72.2 and Type 2 diabetes mellitus with diabetic polyneuropathy E11.42 [place] [address] 73081- 4631 Feb, Type 2 diabetes mellitus with hyperglycemia E11.65 ; Mixed hyperlipidemia E78.2 and Encounter for immunization Z23 [place] [address] 78821- 6965 Feb, [address] 21947- 1108 Feb, [place] [address] 94603- 6119 Feb, Type 2 diabetes mellitus with hyperglycemia E11.[address] 48828- 0750 Feb, Type 2 diabetes mellitus with hyperglycemia E11.65 [place] [id number] [place] [address] 17407- 8452 Jan, [place] [address] 39231- 6342 Dec, Pain in left foot M79.672 ; Other chronic pain G89.29 ; Type 2 diabetes mellitus with hyperglycemia E11.65 ; Obstructive sleep apnea G47.33 ; Falls frequently R29.6 ; Mixed hyperlipidemia E78.2 and Gastroesophageal reflux disease with esophagitis K21.0 [place] [id number] [place] [address] 59647- 5965 Nov, [place] [address] 07296- 0404 Oct, Type 2 diabetes mellitus with diabetic polyneuropathy E11.42 [facility] [address], [place] [address]- 9276 Oct, [facility] [address], [place] [address]- 2238 Oct, [facility] [address] [place] [address] 31080- 0583 September, [facility] [id number] [place] [address] 74113- 8365 September, [facility] [id number] [place] [address] 09065- 3499 September, [facility] [id number] [place] [address] 43432- 6369 September, [facility] [id number] [place] [address] 09213- 6596 September, [facility] [address], [place] [address]- 7216 Aug, Type 2 diabetes mellitus with hyperglycemia E11.65 ; Mixed hyperlipidemia E78.2 and Right carpal tunnel syndrome G56.01 [facility] [address], [place] [address]- 0618 Aug, [facility] [address], [place] [address]- 8019 Jul, [facility] [address], [place] [address]- 5977 Jun, [facility] [address] 8225 Jun, [facility] [address], [place] [address]- 0707 May, [facility] [address], [place] [address]- 0936 May, [facility] [address], [place] [address]- 3405 May, Type 2 diabetes mellitus with hyperglycemia E11.[address] [facility] [id number] [place] [address] 85652- 4245 Apr, Type 2 diabetes mellitus with hyperglycemia E11.65 [facility] [id number] [place] [address] 93757- 8818 Apr, [facility] [id number] [place] [address] 71243- 3611 Apr, Type 2 diabetes mellitus with hyperglycemia E11.65 [facility] [id number] [place] [address] 96914- 3490 Apr, [facility] [id number] [place] [address] 34724- 5029 Mar, Type 2 diabetes mellitus with diabetic polyneuropathy E11.42 ; Bilateral low back pain without sciatica M54.5 [address] Dry nose J34.89 [facility] [id number] [place] [address] 29480- 2022 Mar, Palpitations R00.2 ; Syncope R55 ; DM (diabetes mellitus) E11.[address] [facility] [address], [place] [address]- 1386 Mar, [facility] [id number] [place] [address] 10112- 8303 05 Mar, 2015 [facility] [id number] [place] [address] 26507- 6696 Mar, [facility] [id number] [place] [address] 89249- 6364 Feb, [facility] [id number] [place] [address] 26112- 4191 14 Jan, 2015 [facility] [address] [place] [address] 98523- 1557 Jan, [facility] [address], [place] [address]- 5405 Jan, Falls E888.[address] [facility] [address], [place] [address]- 5530 Dec, [facility] [address], [place] [address]- 1236 Dec, [facility] [address], [place] [address]- 3587 Dec, [facility] [address], [place] [address]- 0228 Dec, [facility] [address], [place] [address]- 4838 Dec, Diabetes mellitus without mention of complication, type II or unspecified type, not stated as uncontrolled 250.00 and Shortness of breath 786.05 [facility] [address], [place] [address]- 1618 Dec, [facility] [address], [place] [address]- 9171 Nov, [facility] [address], [place] [address]- 6008 Nov, [facility] [address], [place] [address]- 4559 Oct, Restrictive lung disease 518.89 [facility] [address], [place] [address]- 5527 Oct, [facility] [address], [place] [address]- 3998 Oct, Shortness of breath 786.05 [facility] [address], [place] [address]- 0077 September, Other nonspecific abnormal finding of lung field 793.19 ; Diabetes mellitus without mention of complication, type II or unspecified type, not stated as uncontrolled 250.00 ; Hyperlipidemia LDL goal < 100 272.4 ; Narcolepsy, with cataplexy 347.01 ; Shortness of breath 786.05 [address] Chest [address]86.50 [facility] [id number] [place] [address] 15440- 5428 14 Aug, 2014 [facility] [id number] [place] [address] 42185- 6557 Aug, [facility] [address] 18280- 7094 Jun, [facility] [id number] [place] [address] 35882- 0452 Jun, [facility] [id number] [place] [address] 44726- 3902 Jun, [facility] [id number] [place] [address] 35450- 6656 Jun, [facility] [id number] [place] [address] 76366- 3824 Jun, [facility] [id number] [place] [address] 43126- 5908 Jun, [facility] [id number] [place] [address] 61882- 2971 Jun, [facility] [id number] [place] [address] 76677- 4555 Jun, [facility] [id number] [place] [id number]- [id number] May, [facility] [id number] [place] [address] 39952- 8617 May, [facility] [id number] [place] [address] 83515- 9855 Apr, [facility] [id number] [place] [address] [id number]- 8752 Apr, [facility] [place] [facility] [address] [id number] [place] [address] Mar, [facility] [place] [facility] [address] [id number] [place] [address]- 9370 Mar, [facility] [place] [facility] [address] [id number] [place] [address]- 112[address] Mar, [facility] [place] [facility] [address] [id number] [place] [address]- 3024 Mar, [facility] [place] [facility] [address] [id number] [place] [address]- 9670 Nov, [facility] [place] [facility] [address] [id number] [place] [address]- 160[address] Nov, [facility] [place] [facility] [address] [id number] [place] [address]- 8253 Nov, [facility] [place] [facility] [address] [id number] [place] [address]- 4482 Nov, [facility] [place] [facility] [address] [id number] [place] [address] 4547 Oct, [facility] [place] [facility] [address] [id number] [place] [address]- 4897 Oct, [facility] [place] [facility] [address] [id number] [place] [address]- 3209 Oct, [facility] [place] [facility] [address] [id number] [place] [address]- 2315 Oct, [facility] [place] [facility] [address] [id number] [place] [address]- 4161 Oct, [facility] [place] [facility] [address] [id number] [place] [address]- 4187 Oct, [facility] [place] [facility] [address] [id number] [place] [address] Oct, [facility] [place] [facility] [address] [id number] [place] [address] Oct, [facility] [place] [facility] [address] [id number] [place] [address] Oct, [facility] [place] [facility] [address] [id number] [place] [address] Oct, [facility] [place] [facility] [address] [id number] [place] [address] September, [facility] [place] [facility] [address] [id number] [place] [address] September, [facility] [place] [facility] [address] [id number] [place] [address] Aug, [facility] [place] [facility] [address] [id number] [place] [address] Aug, [facility] [place] [facility] [address] [id number] [place] [address] Aug, [facility] [place] [facility] [address] [id number] [place] [address] Aug, [facility] [place] [facility] [address] [id number] [place] [address] Aug, [facility] [place] [facility] [address] [id number] [place] [address] Aug, [facility] [place] [facility] [address] [id number] [place] [address] Jul, [facility] [place] [facility] [address] [id number] [place] [address] Jul, [facility] [place] [facility] [address] [id number] [place] [address] Jul, [facility] [place] [facility] [address] [id number] [place] [address] Jul, [facility] [place] [facility] [address] [id number] [place] [address] Jul, [facility] [place] [facility] [address] [id number] [place] [address]- [address] 26 Jul, 2013 [facility] [place] [facility] [address] [id number] [place] [address] Jul, [facility] [place] [facility] [address] [id number] [place] [address] Jul, [facility] [place] [facility] [address] [id number] [place] [address] Jul, [facility] [place] [facility] [address] [id number] [place] [address]- [address] Jul, [facility] [place] [facility] [address] [id number] [place] [address]678 Jul, [facility] [place] [facility] [address] [id number] [place] [address] Jul, [facility] [place] [facility] [address] [id number] [place] [address]- 87[address] Jul, [facility] [place] [facility] [address] [id number] [place] [address]- 2479 Jul, [facility] [place] [facility] [address] [id number] [place] [address] 40[address] Jul, [facility] [place] [facility] [address] [facility] [id number] [place] [address]- 76[address] Jul, [facility] [place] [facility] [address] [id number] [place] [address]- [address] Jun, [facility] [place] [facility] [address] [id number] [place] [address]- [address] Jun, [facility] [place] [facility] [address] [id number] [place] [address] 49[address] Jun, [facility] [place] [facility] [address] [id number] [place] [address]- [address] Jun, [facility] [place] [facility] [address] [id number] [place] [address] 8434 Jun, [facility] [place] [facility] [address] [id number] [place] [address]- 74[address] 24 Jun, 2013 [facility] [place] [facility] [address] [id number] [place] [address]- [address] 22 Jun, 2013 [facility] [place] [facility] [address] [facility] [id number] [place] [address]- [address] Jun, [facility] [place] [facility] [address] [id number] [place] [address]- [address] 20 Jun, 2013 [facility] [place] [facility] [address] [id number] [place] [address]- 225[address] 20 Jun, 2013 [facility] [place] [facility] [address] [facility] [id number] [place] [address] 18 Jun, 2013 [facility] [place] [facility] [address] [facility] [id number] [place] [address]- [address]47 18 Jun, 2013 [facility] [place] [facility] [address] [facility] [id number] [place] [address]- 6[address] 14 Jun, 2013 [facility] [place] [facility] [address] [facility] [id number] [place] [address]- [address] 13 Jun, 2013 [facility] [place] [facility] [address] [facility] [id number] [place] [address] 6628 13 Jun, 2013 [facility] [place] [facility] [address] [facility] [id number] [place] [address]- 1380 13 Jun, 2013 [facility] [place] [facility] [address] [facility] [id number] [place] [address]- [address] 13 Jun, 2013 [facility] [place] [facility] [address] [facility] [id number] [place] [address]- 7[address] 12 Jun, 2013 [facility] [place] [facility] [address] [facility] [id number] [place] [address]- 8705 12 Jun, 2013 [facility] [place] [facility] [address] [facility] [id number] [place] [address]- 9687 11 Jun, 2013 [facility] [place] [facility] [address] [id number] [place] [address]- [address] Jun, 2013 [facility] [place] [facility] [address] [id number] [place] [address]- [address] Jun, 2013 [facility] [place] [facility] [address] [id number] [place] [address]- [address] Jun, 2013 [facility] [place] [facility] [address] [id number] [place] [address]- 9[address] Jun, 2013 [facility] [place] [facility] [address] [id number] [place] [address]- 9312 Jun, 2013 [facility] [place] [facility] [address] [id number] [place] [address]- 5831 Jun, 2013 [facility] [place] [facility] [address] [id number] [place] [address]- 3629 Jun, 2013 [facility] [place] [facility] [address] [id number] [place] [address]- 8046 Jun, 2013 [facility] [place] [facility] [address] [id number] [place] [address]- 9849 Jun, 2013 [facility] [place] [facility] [address] [id number] [place] [address]- 0627 Jun, [facility] [place] [facility] [address] [id number] [place] [address]- 6560 May, [facility] [place] [facility] [address] [id number] [place] [address]- 7[address] May, [facility] [place] [facility] [address] [id number] [place] [address]- 1814 May, [facility] [place] [facility] [address] [id number] [place] [address]- 6025 May, [facility] [place] [facility] [address] [id number] [place] [address]- 5544 May, [facility] [place] [facility] [address] [id number] [place] [address]- 5683 16 May, 2013 [facility] [address] [id number] [place] [address]- 9[address] 15 May, 2013 [facility] [address] [id number] [place] [address]- 2658 15 May, 2013 [facility] [address] [id number] [place] [address]- 4597 May, [facility] [address] [id number] [place] [address]- 3575 May, [facility] [address] [id number] [place] [address]- 0735 May, [facility] [address] [id number] [place] [address]- 4771 May, [facility] [address] [id number] [place] [address]- 2933 May, [facility] [address] [id number] [place] [address]- 5854 May, [facility] [address] [id number] [place] [address]- 3855 May, [facility] [address] [id number] [place] [address]- 4900 Apr, [facility] [address] [id number] [place] [address]- 0301 Apr, [facility] [address] [id number] [place] [address]- 9840 14 Dec, 2012 [facility] [address] [id number] [place] [address]- 2974 08 Nov, 2012 [facility] [address] [id number] [place] [address]- 9566 10 May, 2012 [facility] [address] [id number] [place] [address] Apr, [facility] [address] [facility] [id number] [place] [id number] Apr, [facility] [address] [facility] [id number] [address] Apr, [facility] [address] [facility] [id number] [place] [address]- 3426 Apr, IMMUNIZATIONS No Known Immunizations SOCIAL HISTORY Never Assessed REASON FOR VISIT Spoke with pt at length about her ER visit on Saturday, pt and states she was to see a dr today and can not wait untill saturday, Per hospital notes there is not an indication of needing a sooner appt than Saturday, Cardiac labs were normal, EKG is normal and chest xray is normal. After talking with and pt it appears that pt is under a considerable amount of stress, offered to take pt to speak with a counsler but pt refuses. Told pt to keep appt with Kim Perez RN PLAN OF CARE VITAL SIGNS MEDICATIONS Unknown [...] Surgical History hysterectomy, partial Hospitalization History Chest pain-[facility] 02/27/17
--- OUTSIDE RECORDS SUMMARY | 2018-03-22 20:49 | XMS REPORT ---
Author Author JEFF BELTRÁN [facility] Address [address] [place] [address] Care Team Providers Care Ordering Machine Operator Name Role Phone MARGIE BELTRÁNTA Unavailable PROBLEMS Type Condition ICD9-CM Code GML32-EC Code Onset Dates Condition Status SNOMED Code Problem Primary narcolepsy with cataplexy G47.411 Active 695968258 Problem Gastroesophageal reflux disease with esophagitis K21.0 Active 432300151 Problem Right carpal tunnel syndrome G56.01 Active 49611713 Problem Seasonal allergic rhinitis, unspecified trigger J30.2 Active 279947378 Problem Porokeratosis Q82.8 Active 658291133 Problem Obesity E66.9 Active 806038385 Problem Other chronic pain G89.29 Active 84761613 Problem Non-alcoholic fatty liver disease K76.0 Active 765272051 Problem Tarsal tunnel syndrome of left side G57.52 Active 75428250 Problem Nuclear cataract of both eyes H25.13 Active 09440280 Problem Presbyopia OU H52.4 Active 83793048 Problem Posterior subcapsular age-related cataract of both eyes H25.043 Active 1796342 Problem Type 2 diabetes mellitus with hyperglycemia E11.65 Active 86861389 Problem Lung nodule R91.1 Active 858561261 Problem Delayed gastric emptying K30 Active 041743586 Problem Obstructive sleep apnea G47.33 Active 39948214 Problem Hypermetropia, bilateral H52.03 Active 15614811 Problem Mixed hyperlipidemia E78.2 Active 255329138 ALLERGIES No Information ENCOUNTERS Encounter Location Date Diagnosis [facility] [id number] [address] Apr, [facility] [address] [address] 9487 Mar, [facility] [id number], [place] [address] 0877 Mar, [facility] [id number] [place] [address] 00541- 3575 Feb, [facility] [id number] [place] [address] 61487- 8250 Feb, Type 2 diabetes mellitus with hyperglycemia E11.65 and Epigastric abdominal pain R10.13 [facility] [id number] [place] [address] 02582- 0267 Feb, [facility] [id number] [place] [address] 50827- 6783 Feb, [facility] [id number] [place] [address] 96540- 6682 Feb, [facility] [id number] [place] [address] 06337- 4730 Feb, Seasonal allergic rhinitis, unspecified trigger J30.2 [facility] [id number] [place] [address] 04706- 8596 Feb, Type 2 diabetes mellitus with hyperglycemia E11.65 [facility] [id number] [place] [address] 24736- 9287 Feb, Viral upper respiratory tract infection J06.9 and Encounter for immunization Z23 [facility] [id number] [place] [address] 72848- 1966 Feb, [facility] [id number] [place] [address] 12240- 7699 Jan, Type 2 diabetes mellitus with hyperglycemia E11.65 [facility] [id number] [place] [address] 39978- 6892 Jan, Type 2 diabetes mellitus with hyperglycemia E11.65 [facility] [id number] [place] [address] 84491- 3329 Dec, Chest pain on breathing R07.1 [facility] [id number] [place] [address] 09508 -1374 Dec, Chest pain on breathing R07.1 [facility] [id number] [place] [address] 47422- 3143 Dec, Well woman exam Z01.419 ; Screening for breast cancer Z12.31 and Screening for colon cancer Z12.11 [facility] [id number] [place] [address] 06899- 7638 Dec, [facility] [address] 99114- 1269 Dec, Type 2 diabetes mellitus with hyperglycemia E11.65 ; Mixed hyperlipidemia E78.2 and Gastroesophageal reflux disease with esophagitis K21.0 [facility] [address] 12847- 7762 Nov, Type 2 diabetes mellitus with hyperglycemia E11.65 and Mixed hyperlipidemia E78.2 [facility] [id number] [place] [address] 06375- 4157 Nov, [facility] [id number] [place] [address] 11193- 0179 Oct, Back muscle spasm M62.830 and Bilateral low back pain without sciatica M54.5 [facility] [id number] [place] [address] 97623- 4611 Oct, [facility] [id number] [place] [address] 42940- 6749 September, [facility] [id number] [place] [address] 92093- 1508 September, Type 2 diabetes mellitus with hyperglycemia E11.65 [facility] [id number] [place] [address] 23082- 6818 September, Type 2 diabetes mellitus with hyperglycemia E11.65 [facility] [id number] [place] [address] 93470- 7607 September, Porokeratosis Q82.8 and Type 2 diabetes mellitus with diabetic polyneuropathy E11.42 [facility] [address] 20295 -9524 Aug, Seasonal allergic rhinitis, unspecified trigger J30.2 [facility] [address] 87891- 1925 Aug, [facility] [address] 89069- 0456 Aug, Bilateral low back pain without sciatica M54.5 [facility] [address] [id number] Aug, Dental examination V72.2 and Dental examination Z01.20 [facility] [address] 69433- 6075 Aug, Dental examination Z01.20 and Dental caries K02.9 [facility] [address] 73272- 3079 Aug, Obstructive sleep apnea G47.33 ; Obesity E66.9 ; Type 2 diabetes mellitus with hyperglycemia E11.65 ; Palpitations R00.2 and Corns and callosities L84 [facility] [address] 37207- 5531 Jul, [facility] [address] 37594- 7169 Jul, [facility] [address] 69095- 5189 Jun, Type 2 diabetes mellitus with hyperglycemia E11.65 ; Colon cancer screening Z12.11 ; Mixed hyperlipidemia E78.2 ; Non-alcoholic fatty liver disease K76.0 ; Gastroesophageal reflux disease with esophagitis K21.0 and Pain of upper abdomen R10.10 [facility] [address] 69448- 5742 09 Jun, 2017 Falls frequently R29.6 [facility] [address] 56613 -0776 May, Infection of nose J34.89 [facility] [id number] [place] [address] 48338- 3454 May, Bilateral low back pain without sciatica M54.5 [facility] [id number] [place] [address] 23133- 1777 May, Type 2 diabetes mellitus with diabetic polyneuropathy E11.42 ; Obstructive sleep apnea G47.33 and Type 2 diabetes mellitus with hyperglycemia E11.65 [facility] [address] 48093- 8761 Apr, Bilateral low back pain without sciatica M54.5 [facility] [address] 81492- 5583 Apr, Mixed hyperlipidemia E78.2 and Type 2 diabetes mellitus with hyperglycemia E11.65 [facility] [id number] [place] [address] 36749- 9809 Apr, Type 2 diabetes mellitus with diabetic polyneuropathy E11.42 [facility] [id number] [place] [address] 96063- 9092 Apr, [facility] [id number] [place] [address] 45386- 4131 Apr, Skin lesion of left arm L98.9 and Skin lesion of left leg L98.9 [facility] [id number] [place] [address] 00753- 0802 Mar, Bilateral low back pain without sciatica M54.5 [facility] [id number] [place] [address] 41612- 9961 Mar, Plantar fasciitis of left foot M72.2 ; Bursitis of left foot M71.572 and Type 2 diabetes mellitus with diabetic polyneuropathy E11.42 [facility] [id number] [place] [address] 18690- 2014 Feb, Non-alcoholic fatty liver disease K76.0 ; Keratoacanthoma L85.8 ; Seborrheic keratosis L82.1 ; Type 2 diabetes mellitus with hyperglycemia E11.65 and Nuclear cataract of both eyes H25.13 [facility] [address] [id number] Feb, [facility] [address] 97638- 0902 Feb, [facility] [address] 01739- 6500 Feb, [facility] [address] 39545- 6324 Feb, Type 2 diabetes mellitus with hyperglycemia E11.65 ; Back muscle spasm M62.830 and Encounter for immunization Z23 [facility] [address] 00152- 7673 Jan, Plantar fasciitis of left foot M72.2 [facility] [address] 36608- 5052 Dec, [facility] [address] 86180- 3013 Dec, Plantar fasciitis of left foot M72.2 and Tarsal tunnel syndrome of left side G57.52 [facility] [address] 53019- 1956 Dec, [facility] [address] 33743 -6989 Nov, Mary Jane rash of groin B37.89 and Rash and nonspecific skin eruption R21 [facility] [id number] [place] [address] 71016- 6479 Nov, [facility] [address] 44587- 7529 Oct, Type 2 diabetes mellitus with hyperglycemia E11.65 and Mixed hyperlipidemia E78.2 [facility] [address] 60826- 2812 Oct, [facility] [address] 45789- 8039 Oct, Chest pain, unspecified R07.9 ; Palpitations R00.2 ; Syncope R55 and Mixed hyperlipidemia E78.2 [facility] [id number] [place] [address] 57945- 3583 Oct, Plantar fasciitis, bilateral M72.2 and Type 1 diabetes mellitus with diabetic neuropathy E10.40 [facility] [address] 81312- 8996 Oct, [facility] [id number] [place] [address] 49116- 8066 September, Type 2 diabetes mellitus with hyperglycemia E11.65 [facility] [id number] [place] [address] 96959- 6382 September, Type 2 diabetes mellitus with hyperglycemia E11.65 ; Type 2 diabetes mellitus with diabetic polyneuropathy E11.42 ; Gastroesophageal reflux disease with esophagitis K21.0 and Headache, unspecified headache type R51 [facility] [id number] [place] [address] 88837- 6550 September, [facility] [id number] [place] [address] 42129- 4308 September, [facility] [id number] [place] [address] 43318- 3601 September, [facility] [id number] [place] [address] 60332- 1343 September, Other chest pain R07.89 ; Heart palpitations R00.2 ; Mixed hyperlipidemia E78.2 and Obesity E66.9 [facility] [id number] [place] [address] 31637- 3804 Aug, [facility] [id number] [place] [address] 59224- 0955 Aug, Type 2 diabetes mellitus with diabetic polyneuropathy E11.42 and Type 2 diabetes mellitus with hyperglycemia E11.65 [facility] [id number] [place] [address] 42400- 1304 Aug, [facility] [address], [place] [address]- 2034 Aug, [facility] [address], [place] [address]- 9635 Aug, [facility] [address], [place] [address]- 9165 Aug, Type 2 diabetes mellitus with hyperglycemia E11.65 [facility] [address], [place] [address]- 2438 Aug, [facility] [address] [place] [address] 60262- 6542 Jul, Type 2 diabetes mellitus with diabetic polyneuropathy E11.42 [facility] [address], [place] [address]- 7710 Jul, Type 2 diabetes mellitus with hyperglycemia E11.65 [facility] [address], [place] [address]- 0699 Jul, [facility] [address], [place] [address]- 8035 Jul, [facility] [address], [place] [address]- 2071 Jul, [facility] [address], [place] [address]- 3665 Jul, Type 2 diabetes mellitus with diabetic polyneuropathy E11.42 and Type 2 diabetes mellitus with hyperglycemia E11.65 [facility] [address], [place] [address]- 0401 Jun, Obstructive sleep apnea G47.33 [facility] [address], [place] [address]- 2782 Jun, Type 2 diabetes mellitus with diabetic polyneuropathy E11.42 ; Primary narcolepsy with cataplexy G47.411 ; Abdominal bloating R14.0 ; Other chest pain R07.89 and Vision problems H54.7 [facility] [id number] [place] [address] 57990- 5163 Jun, [facility] [id number] [place] [address] 52792- 4259 May, [facility] [id number] [place] [address] 52970- 1652 Apr, [facility] [id number] [place] [address] 00745- 6620 Apr, Plantar fasciitis of left foot M72.2 [facility] [id number] [place] [address] 60949- 4402 Mar, [facility] [id number] [place] [address] 68010- 7511 Mar, Plantar fasciitis of left foot M72.2 and Type 2 diabetes mellitus with diabetic polyneuropathy E11.42 [facility] [id number] [place] [address] 84620- 7014 Feb, Type 2 diabetes mellitus with hyperglycemia E11.65 ; Mixed hyperlipidemia E78.2 and Encounter for immunization Z23 [facility] [id number] [place] [address] 47815- 8022 Feb, [facility] [id number] [place] [address] 26481- 8033 Feb, [facility] [id number] [place] [address] 66310- 7873 Feb, Type 2 diabetes mellitus with hyperglycemia E11.65 [facility] [id number] [place] [address] 73307- 1518 Feb, Type 2 diabetes mellitus with hyperglycemia E11.65 [facility] [id number] [place] [address] 33926- 7240 Jan, [facility] [id number] [place] [address] 66768- 4130 Dec, Pain in left foot M79.672 ; Other chronic pain G89.29 ; Type 2 diabetes mellitus with hyperglycemia E11.65 ; Obstructive sleep apnea G47.33 ; Falls frequently R29.6 ; Mixed hyperlipidemia E78.2 and Gastroesophageal reflux disease with esophagitis K21.0 [facility] [id number] [place] [address] 91437- 4809 Nov, [facility] [id number] [place] [address] 57550- 8078 Oct, Type 2 diabetes mellitus with diabetic polyneuropathy E11.42 [facility] [id number] [place] [address] 35553- 2068 Oct, [facility] [id number] [place] [address] 41154- 6342 Oct, [facility] [id number] [place] [address] 42288- 4203 September, [facility] [id number] [place] [address] 45542- 7518 September, [facility] [id number] [place] [address] 49920- 1042 September, [facility] [id number] [place] [address] 70547- 5638 September, [facility] [id number] [place] [address] 77970- 0906 September, [facility] [id number] [place] [address] 73130- 2284 Aug, Type 2 diabetes mellitus with hyperglycemia E11.65 ; Mixed hyperlipidemia E78.2 and Right carpal tunnel syndrome G56.01 [facility] [id number] [place] [address] 86883- 9693 Aug, [facility] [id number] [place] [address] 38007- 6523 Jul, [facility] [id number] [place] [address] 61670- 5876 Jun, [facility] [address] [place] [address] 28931- 8087 Jun, [facility] [id number] [place] [address] 47441- 4162 May, [facility] [id number] [place] [address] 14132- 5252 May, [facility] [id number] [place] [address] 01992- 8780 May, Type 2 diabetes mellitus with hyperglycemia E11.65 and Falls E888.9 [facility] [id number] [place] [address] 22052- 3801 Apr, Type 2 diabetes mellitus with hyperglycemia E11.65 [facility] [id number] [place] [address] 79359- 3942 Apr, [facility] [id number] [place] [address] 51769- 1512 Apr, Type 2 diabetes mellitus with hyperglycemia E11.65 [facility] [id number] [place] [address] 03512- 9881 Apr, [facility] [id number] [place] [address] 79370- 2505 Mar, Type 2 diabetes mellitus with diabetic polyneuropathy E11.42 ; Bilateral low back pain without sciatica M54.5 and Dry nose J34.89 [facility] [id number] [place] [address] 25671- 8905 Mar, Palpitations R00.2 ; Syncope R55 ; DM (diabetes mellitus) E11.9 and Obesity E66.9 [facility] [id number] [place] [address] 81580- 6164 Mar, [facility] [id number] [place] [address] 84451- 6609 Mar, [facility] [id number] [address]- 4826 Mar, [facility] [id number] [place] [address] 25355- 0062 Feb, [facility] [id number] [place] [address] 256063- 2879 Jan, [facility] [id number] [place] [address] 43462- 4136 Jan, [facility] [id number] [place] [address] 96479- 2841 Jan, Falls E888.9 and Sinusitis 473.9 [facility] [id number] [place] [address] 07653- 9649 Dec, [facility] [id number] [place] [address] 47073- 8445 Dec, [facility] [id number] [place] [address] 27261- 1651 Dec, [facility] [id number] [place] [address] 55730- 3924 Dec, [facility] [id number] [place] [address] 67607- 6354 Dec, Diabetes mellitus without mention of complication, type II or unspecified type, not stated as uncontrolled 250.00 and Shortness of breath 786.05 [facility] [id number], [place] [address]- 6056 Dec, [facility] [id number] [place] [address] 74052- 8910 Nov, [facility] [id number] [place] [address] 40402- 7190 Nov, [facility] [address] [address]- 1801 Oct, Restrictive lung disease 518.89 [facility] [id number] [place] [address] 34804- 4860 Oct, [facility] [id number] [place] [address] 98300- 9444 Oct, Shortness of breath 786.05 [facility] [id number] [place] [address] 82933- 2710 September, Other nonspecific abnormal finding of lung field 793.19 ; Diabetes mellitus without mention of complication, type II or unspecified type, not stated as uncontrolled 250.00 ; Hyperlipidemia LDL goal < 100 272.4 ; Narcolepsy, with cataplexy 347.01 ; Shortness of breath 786.05 and Chest pain 786.50 [facility] [id number] [place] [address] 93721- 0409 Aug, [facility] [id number] [place] [address] 88707- 3090 Aug, [facility] [id number] [place] [address] 72543- 7338 Jun, [facility] [id number] [place] [address] 01398- 9822 Jun, [facility] [id number] [place] [address] 32335- 3607 Jun, [facility] [id number] [place] [address] 17112- 7294 Jun, [facility] [id number] [place] [address] 96046- 6408 Jun, [facility] [id number] [place] [address] 90234- 5082 Jun, [facility] [id number] [place] [address] 18917- 7222 Jun, [facility] [id number] [place] [address] 38089- 6908 Jun, [facility] [id number] [place] [address] 67600- 9221 May, [facility] [place] [facility] [address] [id number] [place] [address] 6216 May, [facility] [place] [facility] [address] [id number] [place] [address]- 6141 Apr, [facility] [place] [facility] [address] [id number] [place] [address]- 3598 Apr, [facility] [place] [facility] [address] [id number] [place] [address] 0408 Mar, [facility] [place] [facility] [address] [id number] [place] [address] 3696 Mar, [facility] [place] [facility] [address] [id number] [place] [address]- 1747 Mar, [facility] [place] [facility] [address] [id number] [place] [address]- 6608 Mar, [facility] [place] [facility] [address] [id number] [place] [address]- 6643 Nov, [facility] [place] [facility] [address] [id number] [place] [address]- 1380 Nov, [facility] [place] [facility] [address] [id number] [place] [address]- 7994 Nov, [facility] [place] [facility] [address] [id number] [place] [address]- 8640 Nov, [facility] [place] [facility] [address] [id number] [place] [address]- 4463 Oct, [facility] [place] [facility] [address] [id number] [place] [address]- 5977 Oct, [facility] [place] [facility] [address] [id number] [place] [address]- 2489 Oct, [facility] [place] [facility] [address] [id number] [place] [address]- 7452 Oct, [facility] [place] [facility] [address] [id number] [place] [address]- [address]791 16 Oct, 2013 [facility] [place] [facility] [address] [address] [id number] [place] [address] 16 Oct, 2013 [facility] [place] [facility] [address] [id number] [place] [address] Oct, [facility] [place] [facility] [address] [id number] [place] [address] Oct, [facility] [place] [facility] [address] [id number] [place] [address] Oct, [facility] [place] [facility] [address] [id number] [place] [address] Oct, [facility] [place] [facility] [address] [id number] [place] [address] September, [facility] [place] [facility] [address] [id number] [place] [address] September, [facility] [place] [facility] [address] [id number] [place] [address] Aug, [facility] [place] [facility] [address] [id number] [place] [address] 1993 Aug, [facility] [place] [facility] [address] [id number] [place] [address] Aug, [facility] [place] [facility] [address] [id number] [place] [address] Aug, [facility] [place] [facility] [address] [id number] [place] [address] Aug, [facility] [place] [facility] [address] [id number] [place] [address] Aug, [facility] [place] [facility] [address] [id number] [place] [address] Jul, [facility] [place] [facility] [address] [id number] [place] [address] Jul, [facility] [place] [facility] [address] [id number] [place] [address] Jul, [facility] [place] [facility] [address] [id number] [place] [address] 8763 Jul, [facility] [place] [facility] [address] [id number] [place] [address]165 Jul, [facility] [place] [facility] [address] [id number] [place] [address]- [address]479 Jul, [facility] [place] [facility] [address] [id number] [place] [address] 94[address] Jul, [facility] [place] [facility] [address] [id number] [place] [address] 2461 Jul, [facility] [place] [facility] [address] [id number] [place] [address] 40[address] Jul, [facility] [place] [facility] [address] [id number] [place] [address] Jul, [facility] [place] [facility] [address] [id number] [place] [address]- [address] Jul, [facility] [place] [facility] [address] [id number] [place] [address] 244[address] Jul, [facility] [place] [facility] [address] [id number] [place] [address]- 237[address] Jul, [facility] [place] [facility] [address] [id number] [place] [address]- [address] Jul, [facility] [place] [facility] [address] [id number] [place] [address]- [address]268 Jul, [facility] [place] [facility] [address] [id number] [place] [address]- [address]782 Jul, [facility] [place] [facility] [address] [id number] [place] [address] Jun, [facility] [place] [facility] [address] [id number] [place] [address]- 8055 Jun, [facility] [place] [facility] [address] [id number] [place] [address]- 2606 Jun, [facility] [place] [facility] [address] [id number] [place] [address]- [address]46 Jun, [facility] [place] [facility] [address] [facility] [place] [place] [id number] [place] [address] Jun, 2013 [facility] [place] [facility] [address] [id number] [place] [address] Jun, [facility] [place] [facility] [address] [facility] [place] [place] [id number] [place] [address] Jun, [facility] [place] [facility] [address] [facility] [place] [place] [id number] [place] [address] 9967 Jun, [facility] [place] [facility] [address] [facility] [place] [place] [id number] [place] [address]- 475[address] Jun, [facility] [place] [facility] [address] [facility] [place] [place] [id number] [place] [address]- [address] Jun, [facility] [place] [facility] [address] [facility] [place] [place] [id number] [place] [address] 18 Jun, 2013 [facility] [place] [facility] [address] [facility] [place] [place] [id number] [place] [address]- [address] 18 Jun, 2013 [facility] [place] [facility] [address] [facility] [place] [id number], [place] [address] 14 Jun, 2013 [facility] [place] [facility] [address] [facility] [place] [place] [id number] [place] [address]- 89[address] 13 Jun, 2013 [facility] [place] [facility] [address] [facility] [place] [place] [id number] [place] [address]- [address] 13 Jun, 2013 [facility] [place] [facility] [address] [facility] [place] [place] [id number] [place] [address]- 1759 13 Jun, 2013 [facility] [place] [facility] [address] [facility] [place] [place] [id number], [place] [address] 13 Jun, 2013 [facility] [place] [facility] [address] [id number] [place] [address]- 8406 12 Jun, 2013 [facility] [place] [facility] [address] [id number] [place] [address]- 0126 12 Jun, 2013 [facility] [place] [facility] [address] [id number] [place] [address]- 1316 Jun, 2013 [facility] [place] [facility] [address] [id number] [place] [address]- 4468 Jun, 2013 [facility] [place] [facility] [address] [id number] [place] [address]- 9293 Jun, 2013 [facility] [place] [facility] [address] [facility] [place] [id number] [place] [address]- 2935 Jun, 2013 [facility] [place] [facility] [address] [facility] [place] [id number] [place] [address]- 1807 Jun, 2013 [facility] [place] [facility] [address] [facility] [place] [place] [id number] [place] [address]- 0790 Jun, 2013 [facility] [place] [facility] [address] [facility] [place] [id number] [place] [address]- 2862 Jun, 2013 [facility] [place] [facility] [address] [facility] [place] [id number] [place] [address]- [address]69 Jun, 2013 [facility] [place] [facility] [address] [facility] [place] [id number] [place] [address]- 7590 Jun, 2013 [facility] [place] [facility] [address] [facility] [place] [id number] [place] [address]- 254 Jun, 2013 [facility] [place] [facility] [address] [id number] [place] [address]- 5356 Jun, 2013 [facility] [place] [facility] [address] [facility] [place] [place] [id number] [place] [address]- 5795 May, [facility] [place] [facility] [address] [facility] [place] [place] [id number] [place] [address] May, [facility] [place] [facility] [address] [id number] [place] [address]- 5054 May, [facility] [place] [facility] [address] [id number] [place] [address]- 5714 May, [facility] [place] [facility] [address] [id number] [place] [address]- 3511 May, [facility] [place] [facility] [address] [id number] [place] [address]- 9093 May, [facility] [place] [facility] [address] [id number] [place] [address]- 7310 May, [facility] [place] [facility] [address] [id number] [place] [address]- 1591 May, [facility] [place] [facility] [address] [id number] [place] [address]- 1830 May, [facility] [place] [facility] [address] [id number] [place] [address]- 4742 May, [facility] [place] [facility] [address] [id number] [place] [address]- 6522 May, [facility] [place] [facility] [address] [id number] [place] [address]- 0265 May, [facility] [place] [facility] [address] [id number], [place] [address]- 2674 May, [facility] [place] [facility] [address] [id number], [place] [address]- 389[address] May, [facility] [place] [facility] [address] [id number] [place] [address]- 8048 May, [facility] [place] [facility] [address] [id number] [place] [address]- 5426 Apr, [facility] [place] [facility] [address] [id number] [place] [address]- 1051 Apr, [facility] [place] [facility] [address] [facility] [place] [place] [id number], [place] [address]- [address] Dec, [facility] [address] [id number], [place] [address]- [address] Nov, [facility] [address] [id number], [place] [address]- [address]598 May, [facility] [address] [id number], [place] [address]- 9535 Apr, [facility] [id number], [place] [address]77 Apr, [facility] [address] [id number], [place] [address]- [address] Apr, [facility] [address] [id number] [address] Apr, IMMUNIZATIONS No Known Immunizations SOCIAL HISTORY Never Assessed REASON FOR VISIT Repository Medication PLAN OF CARE VITAL SIGNS MEDICATIONS Unknown [...] Surgical History hysterectomy, partial Hospitalization History Chest pain-[facility] 02/27/17 Hospitalization History ER 03/08/18
--- OUTSIDE RECORDS SUMMARY | 2018-03-22 20:50 | XMS REPORT ---
Author Author MICHI KATHY Organization [facility] Address [address] [place] [address] Care Team Providers Care Nursing Surgical Services Director Name Role Phone KATHY BORDEN Unavailable PROBLEMS Type Condition ICD9-CM Code ESZ10-DP Code Onset Dates Condition Status SNOMED Code Problem Primary narcolepsy with cataplexy G47.411 Active 587879199 Problem Gastroesophageal reflux disease with esophagitis K21.0 Active 110267606 Problem Right carpal tunnel syndrome G56.01 Active 55346470 Problem Seasonal allergic rhinitis, unspecified trigger J30.2 Active 214248074 Problem Porokeratosis Q82.8 Active 849729847 Problem Obesity E66.9 Active 692009433 Problem Other chronic pain G89.29 Active 50241790 Problem Non-alcoholic fatty liver disease K76.0 Active 160335519 Problem Tarsal tunnel syndrome of left side G57.52 Active 22855867 Problem Nuclear cataract of both eyes H25.13 Active 63550441 Problem Presbyopia OU H52.4 Active 35890317 Problem Posterior subcapsular age-related cataract of both eyes H25.043 Active 2299307 Problem Type 2 diabetes mellitus with hyperglycemia E11.65 Active 31932712 Problem Lung nodule R91.1 Active 417274592 Problem Delayed gastric emptying K30 Active 332732723 Problem Obstructive sleep apnea G47.33 Active 93813340 Problem Hypermetropia, bilateral H52.03 Active 74697463 Problem Mixed hyperlipidemia E78.2 Active 926042095 ALLERGIES No Information ENCOUNTERS Encounter Location Date Diagnosis [facility] [id number] [address] Apr, [facility] [id number] [address] 9982 Feb, [facility] [id number] [address] 0343 Feb, [facility] [address], [place] [address] 4[address] Feb, [facility] [id number] [place] [address] 29736- 4751 Feb, Seasonal allergic rhinitis, unspecified trigger J30.2 [facility] [id number] [place] [address] 05128- 6177 Feb, Type 2 diabetes mellitus with hyperglycemia E11.65 [facility] [id number] [place] [address] 88955- 4868 Feb, Viral upper respiratory tract infection J06.9 and Encounter for immunization Z23 [facility] [id number] [place] [address] 10346- 3606 Feb, [facility] [id number] [place] [address] 55796- 9413 Jan, Type 2 diabetes mellitus with hyperglycemia E11.65 [facility] [id number] [place] [address] 49174- 1959 Jan, Type 2 diabetes mellitus with hyperglycemia E11.65 [facility] [id number] [place] [address] 79769- 7566 Dec, Chest pain on breathing R07.[address] [facility] [id number] [place] [address] 05866 -6054 Dec, Chest pain on breathing R07.1 [facility] [id number] [place] [address] 86642- 9627 Dec, Well woman exam Z01.419 ; Screening for breast cancer Z12.31 and Screening for colon cancer Z12.11 [facility] [id number] [place] [address] 06694- 6998 Dec, [facility] [id number] [place] [address] 75562- 1454 Dec, Type 2 diabetes mellitus with hyperglycemia E11.65 ; Mixed hyperlipidemia E78.2 and Gastroesophageal reflux disease with esophagitis K21.0 [facility] [id number] [place] [address] 60729- 4358 Nov, Type 2 diabetes mellitus with hyperglycemia E11.65 and Mixed hyperlipidemia E78.2 [facility] [id number] [place] [address] 42391- 6632 Nov, [facility] [id number] [place] [address] 37412- 8812 Oct, Back muscle spasm M62.830 and Bilateral low back pain without sciatica M54.5 [facility] [id number] [place] [address] 54932- 5611 Oct, [facility] [id number] [place] [address] 24094- 0469 September, [facility] [id number] [place] [address] 73888- 8503 September, Type 2 diabetes mellitus with hyperglycemia E11.65 [facility] [id number] [place] [address] 79973- 7373 September, Type 2 diabetes mellitus with hyperglycemia E11.65 [facility] [id number] [place] [address] 09673- 2086 September, Porokeratosis Q82.8 and Type 2 diabetes mellitus with diabetic polyneuropathy E11.42 [facility] [id number] [place] [address] 73069 -0932 Aug, Seasonal allergic rhinitis, unspecified trigger J30.2 [facility] [id number] [place] [address] 12472- 1099 Aug, [facility] [id number] [place] [address] 66847- 4103 Aug, Bilateral low back pain without sciatica M54.5 [facility] [id number] [place] [address] [id number] Aug, Dental examination V72.2 and Dental examination Z01.20 [facility] [id number] [place] [address] 83879- 0630 04 Aug, 2017 Dental examination Z01.20 and Dental caries K02.9 [facility] [address] 23315- 4858 Aug, Obstructive sleep apnea G47.33 ; Obesity E66.9 ; Type 2 diabetes mellitus with hyperglycemia E11.65 ; Palpitations R00.2 and Corns and callosities L84 [facility] [address] 21825- 4626 Jul, [facility] [address] 04039- 3973 Jul, [facility] [address] 79845- 1631 Jun, Type 2 diabetes mellitus with hyperglycemia E11.65 ; Colon cancer screening Z12.11 ; Mixed hyperlipidemia E78.2 ; Non-alcoholic fatty liver disease K76.0 ; Gastroesophageal reflux disease with esophagitis K21.0 and Pain of upper abdomen R10.10 [facility] [address] 74454- 0317 09 Jun, 2017 Falls frequently R29.[address] [facility] [address] 24675 -6527 May, Infection of nose J34.89 [facility] [address] 22153- 2726 May, Bilateral low back pain without sciatica M54.5 [facility] [id number] [place] [address] 61297- 7306 May, Type 2 diabetes mellitus with diabetic polyneuropathy E11.42 ; Obstructive sleep apnea G47.33 and Type 2 diabetes mellitus with hyperglycemia E11.65 [facility] [address] 84550- 6041 Apr, Bilateral low back pain without sciatica M54.5 [facility] [id number] [place] [address] 22793- 5747 Apr, Mixed hyperlipidemia E78.2 and Type 2 diabetes mellitus with hyperglycemia E11.65 [facility] [id number] [place] [address] 64472- 5744 Apr, Type 2 diabetes mellitus with diabetic polyneuropathy E11.42 [facility] [id number] [place] [address] 94892- 4460 Apr, [facility] [id number] [place] [address] 09837- 3154 Apr, Skin lesion of left arm L98.9 and Skin lesion of left leg L98.9 [facility] [id number] [place] [address] 54649- 5103 Mar, Bilateral low back pain without sciatica M54.5 [facility] [id number] [place] [address] 47055- 0159 Mar, Plantar fasciitis of left foot M72.2 ; Bursitis of left foot M71.572 and Type 2 diabetes mellitus with diabetic polyneuropathy E11.42 [facility] [id number] [place] [address] 67806- 6045 Feb, Non-alcoholic fatty liver disease K76.0 ; Keratoacanthoma L85.8 ; Seborrheic keratosis L82.1 ; Type 2 diabetes mellitus with hyperglycemia E11.65 and Nuclear cataract of both eyes H25.13 [facility] [id number] [place] [address] [id number] Feb, [facility] [id number] [place] [address] 28867- 7891 Feb, [facility] [id number] [place] [address] 16219- 3235 Feb, [facility] [id number] [place] [address] 12356- 6525 Feb, Type 2 diabetes mellitus with hyperglycemia E11.65 ; Back muscle spasm M62.830 and Encounter for immunization Z23 [facility] [id number] [place] [address] 53908- 2860 Jan, Plantar fasciitis of left foot M72.2 [facility] [address] 59474- 3309 Dec, [facility] [address] 22206- 1753 Dec, Plantar fasciitis of left foot M72.2 and Tarsal tunnel syndrome of left side G57.52 [facility] [address] 67409- 9507 Dec, [facility] [address] 83441 -3218 Nov, Mary Jane rash of groin B37.89 and Rash and nonspecific skin eruption R21 [facility] [address] 44307- 4147 Nov, [facility] [address] 08206- 2973 Oct, Type 2 diabetes mellitus with hyperglycemia E11.65 and Mixed hyperlipidemia E78.2 [facility] [address] 60477- 5740 Oct, [facility] [address] 97343- 4257 Oct, Chest pain, unspecified R07.9 ; Palpitations R00.2 ; Syncope R55 and Mixed hyperlipidemia E78.2 [facility] [address] 22949- 2927 Oct, Plantar fasciitis, bilateral M72.2 and Type 1 diabetes mellitus with diabetic neuropathy E10.40 [facility] [address] 93804- 1213 Oct, [facility] [address] 01659- 0486 September, Type 2 diabetes mellitus with hyperglycemia E11.65 [facility] [id number] [place] [address] 71919- 1473 September, Type 2 diabetes mellitus with hyperglycemia E11.65 ; Type 2 diabetes mellitus with diabetic polyneuropathy E11.42 ; Gastroesophageal reflux disease with esophagitis K21.0 and Headache, unspecified headache type R51 [facility] [id number] [place] [address] 31956- 8319 September, [facility] [id number] [place] [address] 02484- 4367 September, [facility] [id number] [place] [address] 21187- 7906 September, [facility] [id number] [place] [address] 98004- 3825 September, Other chest pain R07.89 ; Heart palpitations R00.2 ; Mixed hyperlipidemia E78.2 and Obesity E66.9 [facility] [id number] [place] [address] 66358- 3240 Aug, [facility] [id number] [place] [address] 61009- 4464 Aug, Type 2 diabetes mellitus with diabetic polyneuropathy E11.42 and Type 2 diabetes mellitus with hyperglycemia E11.65 [facility] [id number] [place] [address] 57294- 0039 Aug, [facility] [id number] [place] [address] 25272- 3014 Aug, [facility] [id number] [place] [address] 88445- 3032 Aug, [facility] [id number] [place] [address] 52182- 7364 Aug, Type 2 diabetes mellitus with hyperglycemia E11.65 [facility] [id number] [place] [address] 31188- 7386 Aug, [facility] [address], [place] [address]- 9196 Jul, Type 2 diabetes mellitus with diabetic polyneuropathy E11.42 [facility] [address], [place] [address]- 8191 Jul, Type 2 diabetes mellitus with hyperglycemia E11.65 [facility] [id number] [place] [address] 68244- 7109 Jul, [facility] [address], [place] [address]- 8560 Jul, [facility] [id number] [place] [address] 32309- 3020 Jul, [facility] [id number] [place] [address] 95260- 2442 Jul, Type 2 diabetes mellitus with diabetic polyneuropathy E11.42 and Type 2 diabetes mellitus with hyperglycemia E11.65 [facility] [address], [place] [address]- 9061 Jun, Obstructive sleep apnea G47.33 [facility] [id number] [place] [address] 09138- 7464 Jun, Type 2 diabetes mellitus with diabetic polyneuropathy E11.42 ; Primary narcolepsy with cataplexy G47.411 ; Abdominal bloating R14.0 ; Other chest pain R07.89 and Vision problems H54.7 [facility] [address], [place] [address]- 7859 Jun, [facility] [id number] [place] [address] 21680- 9028 May, [facility] [address], [place] [address]- 4255 Apr, [facility] [address], [place] [address]- 0059 Apr, Plantar fasciitis of left foot M72.2 [facility] [id number] [place] [address] 17885- 8528 09 Mar, 2016 [facility] [address] 40255- 5121 Mar, Plantar fasciitis of left foot M72.2 and Type 2 diabetes mellitus with diabetic polyneuropathy E11.42 [facility] [address] 17537- 9717 Feb, Type 2 diabetes mellitus with hyperglycemia E11.65 ; Mixed hyperlipidemia E78.2 and Encounter for immunization Z23 [facility] [address] 69989- 1420 Feb, [facility] [address] 77914- 3339 Feb, [facility] [address] 00097- 0551 Feb, Type 2 diabetes mellitus with hyperglycemia E11.65 [facility] [id number] [place] [address] 58653- 4763 Feb, Type 2 diabetes mellitus with hyperglycemia E11.65 [facility] [id number] [place] [address] 40603- 8933 Jan, [facility] [id number] [place] [address] 34453- 4646 Dec, Pain in left foot M79.672 ; Other chronic pain G89.29 ; Type 2 diabetes mellitus with hyperglycemia E11.65 ; Obstructive sleep apnea G47.33 ; Falls frequently R29.6 ; Mixed hyperlipidemia E78.2 and Gastroesophageal reflux disease with esophagitis K21.0 [facility] [id number] [place] [address] 72497- 7570 Nov, [facility] [id number] [place] [address] 57764- 3973 Oct, Type 2 diabetes mellitus with diabetic polyneuropathy E11.42 [facility] [address] [address]- 0179 Oct, [facility] [address] 6527 Oct, [facility] [address], [place] [address]- 0970 September, [facility] [address]- 3258 September, [facility] [address] 0770 September, [facility] [address] 3962 September, [facility] [address], [place] [address]- 1547 September, [facility] [address], [place] [address]- 3691 Aug, Type 2 diabetes mellitus with hyperglycemia E11.65 ; Mixed hyperlipidemia E78.2 and Right carpal tunnel syndrome G56.01 [facility] [address], [place] [address]- 3110 Aug, [facility] [address], [place] [address]- 2508 Jul, [facility] [address], [place] [address]- 5036 Jun, [facility] [id number], [place] [address]- 3467 Jun, [facility] [id number] 0097 May, [facility] [address]- 6444 May, [facility] [id number]- 6291 08 Arie, 2016 Type 2 diabetes mellitus with hyperglycemia E11.65 and Falls E888.9 [facility] [id number] [place] [address] 17340- 0926 Apr, Type 2 diabetes mellitus with hyperglycemia E11.65 [facility] [id number] [place] [address] 22378- 2086 Apr, [facility] [id number] [place] [address] 60554- 5006 Apr, Type 2 diabetes mellitus with hyperglycemia E11.65 [facility] [id number] [place] [address] 60143- 1727 Apr, [facility] [address] 89684- 2062 Mar, Type 2 diabetes mellitus with diabetic polyneuropathy E11.42 ; Bilateral low back pain without sciatica M54.5 and Dry nose J34.89 [facility] [id number] [place] [address] 65145- 2433 Mar, Palpitations R00.2 ; Syncope R55 ; DM (diabetes mellitus) E11.9 and Obesity E66.9 [facility] [id number] [place] [address] 04892- 7826 Mar, [facility] [id number] [place] [address] 36925- 7806 Mar, [facility] [id number] [place] [address] 18132- 3476 Mar, [facility] [id number] [place] [address] 76771- 2086 Feb, [facility] [id number] [place] [address] 69701- 7546 Jan, [facility] [id number] [place] [address] 33841 2546 Jan, [facility] [id number] [place] [address] 51747 2546 Jan, Falls E888.9 and Sinusitis 473.9 [facility] [id number], [place] [address]- 5906 Dec, [facility] [id number] [place] [address] 40579733- 8193 Dec, [facility] [id number] [place] [address] 57084- 7631 Dec, [facility] [id number] [place] [address] 27940- 5497 Dec, [facility] [id number] [place] [address] 81753- 2942 Dec, Diabetes mellitus without mention of complication, type II or unspecified type, not stated as uncontrolled 250.00 and Shortness of breath 786.05 [facility] [id number] [place] [address] 49531- 9376 Dec, [facility] [id number] [place] [address] 43069- 4773 Nov, [facility] [id number] [place] [address] 50807- 3481 Nov, [facility] [id number] [place] [address] 77380- 7661 Oct, Restrictive lung disease 518.89 [facility] [id number] [place] [address] 10958- 2522 Oct, [facility] [id number] [place] [address] 13642- 7620 Oct, Shortness of breath 786.05 [facility] [id number] [place] [address] 02088- 8284 September, Other nonspecific abnormal finding of lung field 793.19 ; Diabetes mellitus without mention of complication, type II or unspecified type, not stated as uncontrolled 250.00 ; Hyperlipidemia LDL goal < 100 272.4 ; Narcolepsy, with cataplexy 347.01 ; Shortness of breath 786.05 and Chest pain 786.50 [facility] [id number] [place] [address]- 3389 14 Aug, 2014 [facility] [address], [place] [address]- 8386 13 Aug, 2014 [facility] [address] [place] [address]- 9305 Jun, 2014 [facility] [address], [place] [address]- 7164 Jun, 2014 [facility] [address] [place] [address]- 8388 Jun, 2014 [facility] [id number] [place] [address] 67267- 1843 Jun, 2014 [facility] [address], [place] [address]- 2459 Jun, 2014 [facility] [address], [place] [address]- 4138 Jun, 2014 [facility] [address], [place] [address]- 2730 Jun, 2014 [facility] [address], [place] [address]- 1150 Jun, [facility] [address], [place] [address]- 9665 May, [facility] [address], [place] [address]- 2746 May, [facility] [address], [place] [address]- 4066 Apr, [facility] [address], [place] [address]- 3447 Apr, [facility] [address], [place] [address]- 5658 Mar, [facility] [place] [facility] [address] [id number] [place] [address]- 9070 Mar, [facility] [place] [facility] [address] [id number] [place] [address]- 8999 Mar, [facility] [place] [facility] [address] [id number] [place] [address]- 3486 Mar, [facility] [place] [facility] [address] [id number] [place] [address]- 9795 Nov, [facility] [place] [facility] [address] [id number] [place] [address]- 6940 Nov, [facility] [place] [facility] [address] [id number] [place] [address]- 5676 Nov, [facility] [place] [facility] [address] [id number] [place] [address]- 9028 Nov, [facility] [place] [facility] [address] [id number] [place] [address]- 9194 Oct, [facility] [place] [facility] [address] [id number] [place] [address]- 6384 Oct, [facility] [place] [facility] [address] [id number] [place] [address]- 3133 Oct, [facility] [place] [facility] [address] [id number] [place] [address] Oct, [facility] [place] [facility] [address] [id number] [place] [address] Oct, [facility] [place] [facility] [address] [id number] [place] [address] Oct, [facility] [place] [facility] [address] [id number] [place] [address] Oct, [facility] [place] [facility] [address] [id number] [place] [address] Oct, [facility] [place] [facility] [address] [id number] [place] [address] Oct, [facility] [place] [facility] [address] [id number] [place] [address] Oct, [facility] [place] [facility] [address] [id number] [place] [address] September, [facility] [place] [facility] [address] [id number] [place] [address] September, [facility] [place] [facility] [address] [id number] [place] [address] Aug, [facility] [place] [facility] [address] [id number] [place] [address] Aug, [facility] [place] [facility] [address] [id number] [place] [address] Aug, [facility] [place] [facility] [address] [id number] [place] [address] Aug, [facility] [place] [facility] [address] [id number] [place] [address] Aug, [facility] [place] [facility] [address] [id number] [place] [address] Aug, [facility] [place] [facility] [address] [id number] [place] [address] Jul, [facility] [place] [facility] [address] [id number] [place] [address] Jul, [facility] [place] [facility] [address] [id number], [place] [address] Jul, [facility] [place] [facility] [address] [id number] [place] [address] Jul, [facility] [place] [facility] [address] [id number] [place] [address] Jul, [facility] [place] [facility] [address] [id number] [place] [address] Jul, [facility] [place] [facility] [address] [id number] [place] [address] Jul, [facility] [place] [facility] [address] [id number] [place] [address] Jul, [facility] [place] [facility] [address] [id number] [place] [address] Jul, [facility] [place] [facility] [address] [id number] [place] [address] Jul, [facility] [place] [facility] [address] [id number] [place] [address] Jul, [facility] [place] [facility] [address] [id number] [place] [address] Jul, [facility] [place] [facility] [address] [address] [id number] [place] [address] Jul, [facility] [place] [facility] [address] [id number] [place] [address] Jul, [facility] [place] [facility] [address] [id number] [place] [address] Jul, [facility] [place] [facility] [address] [id number] [place] [address] Jul, [facility] [place] [facility] [address] [facility] [id number] [place] [address] Jun, [facility] [place] [facility] [address] [id number] [place] [address] Jun, [facility] [place] [facility] [address] [id number] [place] [address] Jun, [facility] [place] [facility] [address] [id number] [place] [address] Jun, [facility] [place] [facility] [address] [id number] [place] [address] Jun, [facility] [place] [facility] [address] [id number] [place] [address] 24 Jun, 2013 [facility] [place] [facility] [address] [id number] [place] [address] Jun, [facility] [place] [facility] [address] [facility] [id number] [place] [address] 22 Jun, 2013 [facility] [place] [facility] [address] [facility] [id number] [place] [address] 20 Jun, 2013 [facility] [place] [facility] [address] [facility] [id number] [place] [address] 20 Jun, 2013 [facility] [place] [facility] [address] [id number] [place] [address] 18 Jun, 2013 [facility] [place] [facility] [address] [facility] [id number] [place] [address] 18 Jun, 2013 [facility] [place] [facility] [address] [facility] [id number] [place] [address] 14 Jun, 2013 [facility] [place] [facility] [address] [facility] [id number] [place] [address] 13 Jun, 2013 [facility] [place] [facility] [address] [facility] [id number] [place] [address] 13 Jun, 2013 [facility] [place] [facility] [address] [facility] [id number] [place] [address] 13 Jun, 2013 [facility] [place] [facility] [address] [facility] [id number] [place] [address] 13 Jun, 2013 [facility] [place] [facility] [address] [facility] [id number] [place] [address] 12 Jun, 2013 [facility] [place] [facility] [address] [facility] [id number] [place] [address] 12 Jun, 2013 [facility] [place] [facility] [address] [facility] [id number] [place] [address]- [address] 11 Jun, 2013 [facility] [place] [facility] [address] [facility] [id number] [place] [address] Jun, [facility] [place] [facility] [address] [id number] [place] [address] Jun, 2013 [facility] [place] [facility] [address] [id number] [place] [address]- [address] Jun, 2013 [facility] [place] [facility] [address] [id number] [place] [address] Jun, 2013 [facility] [place] [facility] [address] [id number] [place] [address] Jun, 2013 [facility] [place] [facility] [address] [id number] [place] [address] Jun, [facility] [place] [facility] [address] [id number] [place] [address] Jun, 2013 [facility] [place] [facility] [address] [id number] [place] [address] Jun, 2013 [facility] [place] [facility] [address] [id number] [place] [address] Jun, [facility] [place] [facility] [address] [id number] [place] [address] Jun, [facility] [place] [facility] [address] [id number] [place] [address] May, [facility] [place] [facility] [address] [id number] [place] [address] May, [facility] [place] [facility] [address] [id number] [place] [address] May, [facility] [place] [facility] [address] [id number] [place] [address] May, [facility] [place] [facility] [address] [id number] [place] [address] May, [facility] [place] [facility] [address] [id number] [place] [address] May, [facility] [place] [facility] [address] [id number] [place] [address] 15 May, 2013 [facility] [address] [id number] [place] [address] 15 May, 2013 [facility] [address] [id number] [place] [address] May, [facility] [address] [id number] [place] [address]- [address] May, [facility] [address] [id number] [place] [address]- [address] May, [facility] [address] [id number] [place] [address]- 17[address] May, [facility] [address] [id number] [place] [address] May, [facility] [address] [id number] [place] [address]- [address] May, [facility] [address] [id number] [place] [address]- [address] May, [facility] [address] [id number] [place] [address] Apr, [facility] [address] [id number] [place] [address] Apr, [facility] [address] [id number] [place] [address]- [address] Dec, [facility] [address] [id number] [place] [address] Nov, [facility] [address] [id number] [place] [address] May, [facility] [address] [id number] [place] [address] Apr, [facility] [address] [id number] [place] [address] Apr, [facility] [address] [facility] [id number] [place] [address] Apr, [facility] [address] [facility] [id number] [place] [address] Apr, IMMUNIZATIONS No Known Immunizations SOCIAL HISTORY Never Assessed REASON FOR VISIT Appointment PLAN OF CARE VITAL SIGNS MEDICATIONS Unknown [...] Surgical History hysterectomy, partial Hospitalization History Chest pain-[facility] 02/27/17
--- OUTSIDE RECORDS SUMMARY | 2018-03-22 20:51 | XMS REPORT ---
Author Author JEFF BELTRÁN [facility] Address [address] [place] [address] Care Team Providers Care Certified Green Building Engineer Name Role Phone MARGIE BELTRÁNTA Unavailable PROBLEMS Type Condition ICD9-CM Code [id number] Code Onset Dates Condition Status SNOMED Code Problem Primary narcolepsy with cataplexy G47.411 Active 681076982 Problem Gastroesophageal reflux disease with esophagitis K21.0 Active 439728913 Problem Right carpal tunnel syndrome G56.01 Active 95531305 Problem Seasonal allergic rhinitis, unspecified trigger J30.2 Active 563648405 Problem Porokeratosis Q82.8 Active 630548776 Problem Obesity E66.9 Active 850817775 Problem Other chronic pain G89.29 Active 72002199 Problem Non-alcoholic fatty liver disease K76.0 Active 208064262 Problem Tarsal tunnel syndrome of left side G57.52 Active 89378037 Problem Nuclear cataract of both eyes H25.13 Active 76653218 Problem Presbyopia OU H52.4 Active 43281472 Problem Posterior subcapsular age-related cataract of both eyes H25.043 Active 9304532 Problem Type 2 diabetes mellitus with hyperglycemia E11.65 Active 72024007 Problem Lung nodule R91.1 Active 532451734 Problem Delayed gastric emptying K30 Active 128908771 Problem Obstructive sleep apnea G47.33 Active 63233957 Problem Hypermetropia, bilateral H52.03 Active 42218692 Problem Mixed hyperlipidemia E78.2 Active [id number] ALLERGIES No Information ENCOUNTERS Encounter Location Date Diagnosis [facility] [id number], [place] [address] Apr, [facility] [address], [place] [address] Feb, [facility] [id number], [place] [address] 4744 Feb, [facility] [id number] [place] [address] 43285- 8488 Feb, [facility] [id number] [place] [address] 73247- 6633 Feb, Seasonal allergic rhinitis, unspecified trigger J30.2 [facility] [id number] [place] [address] 32869- 3659 Feb, Type 2 diabetes mellitus with hyperglycemia E11.65 [facility] [id number] [place] [address] 05421- 4274 Feb, Viral upper respiratory tract infection J06.9 and Encounter for immunization Z23 [facility] [id number] [place] [address] 11028- 4360 Feb, [facility] [id number] [place] [address] 26671- 8145 Jan, Type 2 diabetes mellitus with hyperglycemia E11.65 [facility] [id number] [place] [address] 20571- 1355 Jan, Type 2 diabetes mellitus with hyperglycemia E11.65 [facility] [id number] [place] [address] 62655- 6559 Dec, Chest pain on breathing R07.1 [facility] [id number] [place] [address] 26426 -2603 Dec, Chest pain on breathing R07.1 [facility] [id number] [place] [address] 55891- 8367 Dec, Well woman exam Z01.419 ; Screening for breast cancer Z12.31 and Screening for colon cancer Z12.11 [facility] [id number] [place] [address] 27266- 6492 Dec, [facility] [id number] [place] [address] 93407- 6791 Dec, Type 2 diabetes mellitus with hyperglycemia E11.65 ; Mixed hyperlipidemia E78.2 and Gastroesophageal reflux disease with esophagitis K21.0 [facility] [id number] [place] [address] 05533- 7341 Nov, Type 2 diabetes mellitus with hyperglycemia E11.65 and Mixed hyperlipidemia E78.2 [facility] [id number] [place] [address] 09736- 0413 Nov, [facility] [address] 23730- 8254 Oct, Back muscle spasm M62.830 and Bilateral low back pain without sciatica M54.5 [facility] [id number] [place] [address] 83946- 1819 Oct, [facility] [id number] [place] [address] 89030- 9553 September, [facility] [address] 02476- 1369 September, Type 2 diabetes mellitus with hyperglycemia E11.65 [facility] [id number] [place] [address] 22502- 8159 September, Type 2 diabetes mellitus with hyperglycemia E11.65 [facility] [id number] [place] [address] 84652- 2638 September, Porokeratosis Q82.8 and Type 2 diabetes mellitus with diabetic polyneuropathy E11.42 [facility] [id number] [place] [address] 34964 -0413 Aug, Seasonal allergic rhinitis, unspecified trigger J30.2 [facility] [id number] [place] [address] 06144- 8182 Aug, [facility] [id number] [place] [address] 84573- 4479 Aug, Bilateral low back pain without sciatica M54.5 [facility] [id number] [place] [address] [id number] Aug, Dental examination V72.2 and Dental examination Z01.20 [facility] [id number] [place] [address] 92255- 6461 04 Aug, 2017 Dental examination Z01.20 and Dental caries K02.9 [facility] [address] 66268- 8455 Aug, Obstructive sleep apnea G47.33 ; Obesity E66.9 ; Type 2 diabetes mellitus with hyperglycemia E11.65 ; Palpitations R00.2 and Corns and callosities L84 [facility] [address] 11987- 9010 Jul, [facility] [address] 69650- 9056 Jul, [facility] [address] 54708- 8661 Jun, Type 2 diabetes mellitus with hyperglycemia E11.65 ; Colon cancer screening Z12.11 ; Mixed hyperlipidemia E78.2 ; Non-alcoholic fatty liver disease K76.0 ; Gastroesophageal reflux disease with esophagitis K21.0 and Pain of upper abdomen R10.10 [facility] [address] 02022- 5232 09 Jun, 2017 Falls frequently R29.6 [facility] [address] 17231 -8997 May, Infection of nose J34.89 [facility] [address] 73957- 8216 May, Bilateral low back pain without sciatica M54.5 [facility] [address] 29857- 9928 May, Type 2 diabetes mellitus with diabetic polyneuropathy E11.42 ; Obstructive sleep apnea G47.33 and Type 2 diabetes mellitus with hyperglycemia E11.65 [facility] [address] 95977- 1307 Apr, Bilateral low back pain without sciatica M54.5 [facility] [address] [place] [address] 49043- 2222 Apr, Mixed hyperlipidemia E78.2 and Type 2 diabetes mellitus with hyperglycemia E11.65 [facility] [id number] [place] [address] 73405- 0590 Apr, Type 2 diabetes mellitus with diabetic polyneuropathy E11.42 [facility] [id number] [place] [address] 78075- 1468 Apr, [facility] [id number] [place] [address] 44240- 3332 Apr, Skin lesion of left arm L98.9 and Skin lesion of left leg L98.9 [facility] [id number] [place] [address] 61964- 4312 Mar, Bilateral low back pain without sciatica M54.5 [facility] [id number] [place] [address] 52552- 0750 Mar, Plantar fasciitis of left foot M72.2 ; Bursitis of left foot M71.572 and Type 2 diabetes mellitus with diabetic polyneuropathy E11.42 [facility] [id number] [place] [address] 85858- 9408 Feb, Non-alcoholic fatty liver disease K76.0 ; Keratoacanthoma L85.8 ; Seborrheic keratosis L82.1 ; Type 2 diabetes mellitus with hyperglycemia E11.65 and Nuclear cataract of both eyes H25.13 [facility] [id number] [place] [address] [id number] Feb, [facility] [id number] [place] [address] 20023- 0967 Feb, [facility] [id number] [place] [address] 60904- 3010 Feb, [facility] [id number] [place] [address] 28577- 5671 Feb, Type 2 diabetes mellitus with hyperglycemia E11.65 ; Back muscle spasm M62.830 and Encounter for immunization Z23 [facility] [id number] [place] [address] 36255- 9400 Jan, Plantar fasciitis of left foot M72.2 [facility] [address] 75293- 8959 Dec, [facility] [address] 31848- 8326 Dec, Plantar fasciitis of left foot M72.2 and Tarsal tunnel syndrome of left side G57.52 [facility] [address] 80538- 9944 Dec, [facility] [address] 70868 -2797 Nov, Mary Jane rash of groin B37.89 and Rash and nonspecific skin eruption R21 [facility] [address] 63019- 8345 Nov, [facility] [address] 75970- 3682 Oct, Type 2 diabetes mellitus with hyperglycemia E11.65 and Mixed hyperlipidemia E78.2 [facility] [address] 65535- 1128 Oct, [facility] [address] 12991- 4815 Oct, Chest pain, unspecified R07.9 ; Palpitations R00.2 ; Syncope R55 and Mixed hyperlipidemia E78.2 [facility] [address] 42607- 6526 Oct, Plantar fasciitis, bilateral M72.2 and Type 1 diabetes mellitus with diabetic neuropathy E10.40 [facility] [address] 44550- 9780 Oct, [facility] [address] 81973- 4011 September, Type 2 diabetes mellitus with hyperglycemia E11.65 [facility] [id number] [place] [address] 26602- 6397 September, Type 2 diabetes mellitus with hyperglycemia E11.65 ; Type 2 diabetes mellitus with diabetic polyneuropathy E11.42 ; Gastroesophageal reflux disease with esophagitis K21.0 and Headache, unspecified headache type R51 [facility] [id number] [place] [address] 27106- 5058 September, [facility] [id number] [place] [address] 16222- 6796 September, [facility] [address] 57117- 2243 September, [facility] [id number] [place] [address] 17945- 9451 September, Other chest pain R07.89 ; Heart palpitations R00.2 ; Mixed hyperlipidemia E78.2 and Obesity E66.9 [facility] [id number] [place] [address] 76573- 3364 Aug, [facility] [id number] [place] [address] 87323- 3958 Aug, Type 2 diabetes mellitus with diabetic polyneuropathy E11.42 and Type 2 diabetes mellitus with hyperglycemia E11.65 [facility] [id number] [place] [address] 07253- 6825 Aug, [facility] [id number] [place] [address] 71401- 5721 Aug, [facility] [id number] [place] [address] 51831- 6636 Aug, [facility] [id number] [place] [address] 54812- 0525 Aug, Type 2 diabetes mellitus with hyperglycemia E11.65 [facility] [id number] [place] [address] 52595- 6583 Aug, [facility] [address], [place] [address]- 8412 Jul, Type 2 diabetes mellitus with diabetic polyneuropathy E11.42 [facility] [address], [place] [address]- 3014 Jul, Type 2 diabetes mellitus with hyperglycemia E11.65 [facility] [address] [place] [address] 73189- 5052 Jul, [facility] [address], [place] [address]- 4802 Jul, [facility] [id number] [place] [address] 22886- 8404 Jul, [facility] [id number] [place] [address] 55042- 2729 Jul, Type 2 diabetes mellitus with diabetic polyneuropathy E11.42 and Type 2 diabetes mellitus with hyperglycemia E11.65 [facility] [address], [place] [address]- 6154 Jun, Obstructive sleep apnea G47.33 [facility] [id number] [place] [address] 83377- 7678 Jun, Type 2 diabetes mellitus with diabetic polyneuropathy E11.42 ; Primary narcolepsy with cataplexy G47.411 ; Abdominal bloating R14.0 ; Other chest pain R07.89 and Vision problems H54.7 [facility] [address], [place] [address]- 0544 Jun, [facility] [address] [place] [address] 64015- 8753 May, [facility] [id number] [place] [address] 16018- 4051 Apr, [facility] [address], [place] [address]- 1640 Apr, Plantar fasciitis of left foot M72.2 [facility] [id number] [place] [address] 95779- 4994 09 Mar, 2016 [facility] [address] 67992- 8137 Mar, Plantar fasciitis of left foot M72.2 and Type 2 diabetes mellitus with diabetic polyneuropathy E11.42 [facility] [address] 31189- 0233 Feb, Type 2 diabetes mellitus with hyperglycemia E11.65 ; Mixed hyperlipidemia E78.2 and Encounter for immunization Z23 [facility] [address] 55544- 1282 Feb, [facility] [address] 62731- 7644 Feb, [facility] [address] 14597- 1087 Feb, Type 2 diabetes mellitus with hyperglycemia E11.65 [facility] [address] 60210- 1440 Feb, Type 2 diabetes mellitus with hyperglycemia E11.65 [facility] [address] 38424- 9060 Jan, [facility] [address] 50412- 4892 Dec, Pain in left foot M79.672 ; Other chronic pain G89.29 ; Type 2 diabetes mellitus with hyperglycemia E11.65 ; Obstructive sleep apnea G47.33 ; Falls frequently R29.6 ; Mixed hyperlipidemia E78.2 and Gastroesophageal reflux disease with esophagitis K21.0 [facility] [address] 14514- 2116 Nov, [facility] [id number] [place] [address] 87664- 6727 Oct, Type 2 diabetes mellitus with diabetic polyneuropathy E11.42 [facility] [address] [place] [address]- 0228 Oct, [facility] [address] 2196 Oct, [facility] [address]- 2785 September, [facility] [address] 8173 September, [facility] [address], [place] [address]- 7494 September, [facility] [address] [place] [address] 819212- 9588 September, [facility] [address], [place] [address]- 8064 September, [facility] [address], [place] [address]- 9929 Aug, Type 2 diabetes mellitus with hyperglycemia E11.65 ; Mixed hyperlipidemia E78.2 and Right carpal tunnel syndrome G56.01 [facility] [address], [place] [address]- 3339 Aug, [facility] [address], [place] [address]- 4811 Jul, [facility] [address], [place] [address]- 0567 Jun, [facility] [address], [place] [address]- 4647 Jun, [facility] [id number] 3506 May, [facility] [address] 6373 May, [facility] [id number], [place] [address]- 2290 May, Type 2 diabetes mellitus with hyperglycemia E11.65 and Falls E888.9 [facility] [id number] [place] [address] 52143- 8810 Apr, Type 2 diabetes mellitus with hyperglycemia E11.65 [facility] [id number] [place] [address] 58335- 7716 Apr, [facility] [id number] [place] [address] 52934- 0236 Apr, Type 2 diabetes mellitus with hyperglycemia E11.65 [facility] [id number] [place] [address] 21318- 5951 Apr, [facility] [id number] [place] [address] 48251- 1016 Mar, Type 2 diabetes mellitus with diabetic polyneuropathy E11.42 ; Bilateral low back pain without sciatica M54.5 and Dry nose J34.89 [facility] [id number] [place] [address] 18423- 4779 Mar, Palpitations R00.2 ; Syncope R55 ; DM (diabetes mellitus) E11.9 and Obesity E66.9 [facility] [id number] [place] [address] 00718- 1771 Mar, [facility] [id number] [place] [address] 30103- 2575 Mar, [facility] [id number] [place] [address] 44920- 8036 Mar, [facility] [id number] [place] [address] 96790- 9342 Feb, [facility] [id number] [place] [address] 83176- 3875 Jan, [facility] [id number] [place] [address] 85170- 2540 Jan, [facility] [id number] [place] [address] 45091- 4422 Jan, Falls E888.9 and Sinusitis 473.9 [facility] [address], [place] [address]- 8844 Dec, [facility] [id number] [place] [address] 515376- 4004 Dec, [facility] [id number] [place] [address] 77394- 6043 Dec, [facility] [id number] [place] [address] 45490- 1653 Dec, [facility] [address] [place] [address] 22638- 5188 Dec, Diabetes mellitus without mention of complication, type II or unspecified type, not stated as uncontrolled 250.00 and Shortness of breath 786.05 [facility] [id number] [place] [address] 79821- 7501 Dec, [facility] [id number] [place] [address] 71369- 2006 Nov, [facility] [id number] [place] [address] 92922- 1435 Nov, [facility] [id number] [place] [address] 73617- 9028 Oct, Restrictive lung disease 518.89 [facility] [address] [place] [address] 19742- 9910 Oct, [facility] [address], [place] [address]- 2552 Oct, Shortness of breath 786.05 [facility] [id number] [place] [address] 49690- 4615 September, Other nonspecific abnormal finding of lung field 793.19 ; Diabetes mellitus without mention of complication, type II or unspecified type, not stated as uncontrolled 250.00 ; Hyperlipidemia LDL goal < 100 272.4 ; Narcolepsy, with cataplexy 347.01 ; Shortness of breath 786.05 and Chest pain 786.50 [facility] [address] [facility] [id number] [place] [address]- 6773 14 Aug, 2014 [facility] [address] [place] [address]- 9917 13 Aug, [address] [facility] [address], [place] [address]- 7899 Jun, 2014 [facility] [id number] [place] [address] 52987- 3185 Jun, [address] [facility] [address], [place] [address]- 7079 Jun, [address] [facility] [id number] [place] [address] 03948- 6096 Jun, [address] [facility] [id number] [place] [address] 71304- 8895 Jun, [address] [facility] [address] [place] [address]- 8042 Jun, [address] [facility] [address] [place] [address]- 7491 Jun, [address] [facility] [address] [place] [address]- 1033 Jun, [facility] [address], [place] [address]- 7622 May, [facility] [address] [place] [address]- 9998 May, [facility] [address], [place] [address]- 6545 Apr, [facility] [place] [facility] [address] [place] [address]- 5390 Apr, [facility] [address], [place] [address]- 3338 Mar, [facility] [place] [facility] [address] [id number] [place] [address]- 6393 Mar, [facility] [place] [facility] [address] [id number] [place] [address]- 9980 Mar, [facility] [place] [facility] [address] [id number] [place] [address]- 5004 Mar, [facility] [place] [facility] [address] [id number] [place] [address]- 1147 Nov, [facility] [place] [facility] [address] [id number] [place] [address]- 7815 Nov, [facility] [place] [facility] [address] [id number] [place] [address]- 1358 Nov, [facility] [place] [facility] [address] [id number] [place] [address]- 5685 Nov, [facility] [place] [facility] [address] [id number] [place] [address] Oct, [facility] [place] [facility] [address] [id number] [place] [address] Oct, [facility] [place] [facility] [address] [id number] [place] [address] Oct, [facility] [place] [facility] [address] [id number] [place] [address] Oct, [facility] [place] [facility] [address] [id number] [place] [address] Oct, [facility] [place] [facility] [address] [id number] [place] [address] Oct, [facility] [place] [facility] [address] [id number] [place] [address] Oct, [facility] [place] [facility] [address] [id number] [place] [address] Oct, [facility] [place] [facility] [address] [id number] [place] [address] Oct, [facility] [place] [facility] [address] [id number] [place] [address] Oct, [facility] [place] [facility] [address] [id number] [place] [address] September, [facility] [place] [facility] [address] [id number] [place] [address] September, [facility] [place] [facility] [address] [id number] [place] [address] Aug, [facility] [place] [facility] [address] [id number] [place] [address] Aug, [facility] [place] [facility] [address] [id number] [place] [address] Aug, [facility] [place] [facility] [address] [id number] [place] [address] Aug, [facility] [place] [facility] [address] [id number] [place] [address] Aug, [facility] [place] [facility] [address] [id number] [place] [address] Aug, [facility] [place] [facility] [address] [id number] [place] [address] Jul, [facility] [place] [facility] [address] [id number] [place] [address] Jul, [facility] [place] [facility] [address] [id number] [place] [address] Jul, [facility] [place] [facility] [address] [id number] [place] [address] Jul, [facility] [place] [facility] [address] [id number] [place] [address] Jul, [facility] [place] [facility] [address] [id number] [place] [address] Jul, [facility] [place] [facility] [address] [id number] [place] [address] 25 Jul, 2013 [facility] [place] [facility] [address] [id number] [place] [address] Jul, [facility] [place] [facility] [address] [id number] [place] [address] Jul, [facility] [place] [facility] [address] [id number] [place] [address] Jul, [facility] [place] [facility] [address] [id number] [place] [address] Jul, [facility] [place] [facility] [address] [id number] [place] [address] Jul, [facility] [place] [facility] [address] [id number] [place] [address] Jul, [facility] [place] [facility] [address] [id number] [place] [address] Jul, [facility] [place] [facility] [address] [id number] [place] [address] Jul, [facility] [place] [facility] [address] [id number] [place] [address] Jul, [facility] [place] [facility] [address] [facility] [id number] [place] [address] Jun, [facility] [place] [facility] [address] [id number] [place] [address] Jun, [facility] [place] [facility] [address] [id number] [place] [address] Jun, [facility] [place] [facility] [address] [id number] [place] [address] Jun, [facility] [place] [facility] [address] [id number] [place] [address] Jun, [facility] [place] [facility] [address] [id number] [place] [address] Jun, [facility] [place] [facility] [address] [id number] [place] [address] Jun, [facility] [place] [facility] [address] [id number] [place] [address] 22 Jun, 2013 [facility] [place] [facility] [address] [facility] [id number] [place] [address] 20 Jun, 2013 [facility] [place] [facility] [address] [facility] [id number] [place] [address] 20 Jun, 2013 [facility] [place] [facility] [address] [id number] [place] [address] 18 Jun, 2013 [facility] [place] [facility] [address] [facility] [id number] [place] [address] 1995 18 Jun, 2013 [facility] [place] [facility] [address] [facility] [id number] [place] [address] 14 Jun, 2013 [facility] [place] [facility] [address] [facility] [id number] [place] [address] 13 Jun, 2013 [facility] [place] [facility] [address] [facility] [id number] [place] [address] 13 Jun, 2013 [facility] [place] [facility] [address] [facility] [id number] [place] [address] 13 Jun, 2013 [facility] [place] [facility] [address] [facility] [id number] [place] [address] 13 Jun, 2013 [facility] [place] [facility] [address] [facility] [id number] [place] [address] 12 Jun, 2013 [facility] [place] [facility] [address] [facility] [id number] [place] [address] 12 Jun, 2013 [facility] [place] [facility] [address] [facility] [id number] [place] [address] 11 Jun, 2013 [facility] [place] [facility] [address] [facility] [id number] [place] [address] 1994 Jun, [facility] [place] [facility] [address] [id number] [place] [address] Jun, [facility] [place] [facility] [address] [id number] [place] [address] Jun, [facility] [place] [facility] [address] [id number] [place] [address] Jun, 2013 [facility] [place] [facility] [address] [id number] [place] [address] Jun, 2013 [facility] [place] [facility] [address] [id number] [place] [address] Jun, [facility] [place] [facility] [address] [id number] [place] [address] Jun, 2013 [facility] [place] [facility] [address] [id number] [place] [address] Jun, [facility] [place] [facility] [address] [id number] [place] [address] Jun, [facility] [place] [facility] [address] [id number] [place] [address] Jun, [facility] [place] [facility] [address] [id number] [place] [address] May, [facility] [place] [facility] [address] [id number] [place] [address] May, [facility] [place] [facility] [address] [id number] [place] [address] May, [facility] [place] [facility] [address] [id number] [place] [address] May, [facility] [place] [facility] [address] [id number] [place] [address] May, [facility] [place] [facility] [address] [id number] [place] [address] May, [facility] [place] [facility] [address] [id number] [place] [address] 15 May, 2013 [facility] [address] [id number] [place] [address] 15 May, 2013 [facility] [address] [id number] [place] [address] May, [facility] [address] [id number] [place] [address] May, [facility] [address] [id number] [place] [address] May, [facility] [address] [id number] [place] [address] May, [facility] [address] [id number] [place] [address] May, [facility] [address] [id number] [place] [address]651 May, [facility] [address] [id number] [place] [address]00 May, [facility] [address] [id number] [place] [address] Apr, [facility] [address] [id number] [place] [address] Apr, [facility] [address] [id number] [place] [address] Dec, [facility] [address] [id number] [place] [address] Nov, [facility] [address] [id number] [place] [address] May, [facility] [address] [id number] [place] [address] Apr, [facility] [address] [id number] [place] [address] Apr, [facility] [address] [facility] [id number] [place] [address] Apr, [facility] [address] [facility] [id number] [place] [address] Apr, IMMUNIZATIONS No Known Immunizations SOCIAL HISTORY Never Assessed REASON FOR VISIT med clarification PLAN OF CARE VITAL SIGNS MEDICATIONS Medication Instructions Dosage Frequency Start Date End Date Duration Status Levemir FlexTouch 100 UNIT/ML INJECT 65 UNITS SUBCUTANEOUSLY TWICE DAILY Active RESULTS No Results PROCEDURES No Known procedures INSTRUCTIONS MEDICATIONS ADMINISTERED No Known Medications MEDICAL (GENERAL) HISTORY Type Description Date Medical History asthma Medical History type II diabetes Medical History sleep apnea Medical History narcolepsy Medical History Shortness of breath Medical History Shortness of breath Medical History Falls frequently Medical History Pain in left foot Surgical History hysterectomy, partial Hospitalization History Chest pain-[facility] 02/27/17
--- NOTE | 2018-03-22 21:10 | ED Integumentary General ---
General Chief Complaint: Bite-Animal/Human/Insect Stated Complaint: INSECT BITE Source: patient Exam Limitations: no limitations History of Present Illness Date Seen by Provider: Mar 22, 2018 Time Seen by Provider: 21:07 Initial Comments To ER with a possible insect bite[place] up to grab a paper towel in the bathroom and felt a sharp pinch on the hand. This was to the dorsal aspect of the hand over the webspace between the thumb and the pointer finger. She now has a reddened area to this location that is itching and stinging. Timing/Duration: just prior to arrival Severity: mild Allergies and Home Medications Allergies Coded Allergies: Penicillins (Verified Allergy, Severe, SWELLING IN THROAT, 12/01/17) Home Medications Albuterol Sulfate 6.7 Gm Hfa.aer.ad, 2 PUFF IH Q4H PRN for SHORTNESS OF BREATH, (Reported) Azithromycin 250 Mg Tablet, 250 MG PO UD TAKE 2 TABLETS TODAY, THEN TAKE 1 TABLET DAILY FOR 4 MORE DAYS Prescribed by: MAYELIN MONTALVO on 12/01/172030 Famotidine 20 Mg Tablet, 20 MG PO BID Prescribed by: ADALGISA MARTINEZ on 02/28/171540 Gabapentin 300 Mg Capsule, 600 MG PO TID, (Reported) TAKES 2 (300MG) CAPSULES Insulin Aspart 300 Units/3 Ml Solution, 25 UNITS SQ TIDWM, (Reported) Insulin Detemir 100 Unit/1 Ml Insuln.pen, 50 UNITS PO BID, (Reported) Methylprednisolone 4 Mg Tab.ds.pk, 4 MG PO UD Prescribed by: MAYELIN MONTALVO on 12/01/172030 Pravastatin Sodium 40 Mg Tablet, 40 MG PO HS, (Reported) Sucralfate 1 Gm Tablet, 1 GM PO BID Prescribed by: ADALGISA MARTINEZ on 02/28/17 154 Patient Home Medication List Home Medication List Reviewed: Yes Review of Systems Review of Systems Constitutional: see HPI EENTM: see HPI Respiratory: no symptoms reported Cardiovascular: no symptoms reported Genitourinary: no symptoms reported Skin: see HPI Psychiatric/Neurological: No Symptoms Reported Endocrine: No Symptoms Reported Past Fdjsess-Rhmhsw-Dzibdm Hx Patient Social History Alcohol Use: Denies Use Recreational Drug Use: No 2nd Hand Smoke Exposure: Yes Recent Foreign Travel: No Contact w/Someone Who Travel: No Recent Hopitalizations: No Immunizations Up To Date Tetanus Booster (TDap): Unknown PED Vaccines UTD: No Date of Pneumonia Vaccine: Feb 19, 2017 Date of Influenza Vaccine: Feb 19, 2017 Seasonal Allergies Seasonal Allergies: No Past Medical History Surgeries: Yes Cardiac, Hysterectomy Respiratory: Yes Asthma, Sleep Apnea Currently Using CPAP: Yes Cardiac: Yes High Cholesterol Neurological: Yes Headaches /Migraines, Neuropathy Reproductive Disorders: No [employer] History: Hysterectomy Genitourinary: Yes (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) Renal Failure Gastrointestinal: Yes Gastroesophageal Reflux Musculoskeletal: Yes Arthritis Endocrine: Yes Diabetes, Insulin dep HEENT: No Loss of Vision: Denies Hearing Impairment: Denies Cancer: No Psychosocial: Yes (NARCOLEPSY) Integumentary: No Blood Disorders: No Adverse Reaction/Blood Tranf: No Family Medical History Alcoholism 03 FATHER, Onset:Unknown 09 SISTER, Onset:Unknown Bone cancer 09 BROTHER Cancer 09 BROTHER, Onset:30's - 40 Cardiovascular disease 03 FATHER 03 MOTHER Chest pain 03 FATHER, Onset:60 years & older 03 MOTHER, Onset:60 years & older Diabetes mellitus 09 SISTER Family history: Cardiovascular disease 03 FATHER, Onset:Unknown 03 MOTHER, Onset:Unknown 09 BROTHER, Onset:Unknown Family history: Diabetes mellitus 03 FATHER 03 MOTHER, Onset:Unknown 09 BROTHER, Onset:Unknown Heart disease 03 MOTHER, Onset:Unknown 09 BROTHER, Onset:Unknown Seizure disorder 09 BROTHER, Onset:Unknown 09 SISTER, Onset:Unknown Stroke 09 SISTER No Family History of: Abdominal aortic aneurysm Wayne's disease Aphasia Cancer of colon Cataract Congenital heart disease Congestive heart failure Cystic fibrosis Dementia Family history: Allergy Family history: Alzheimer's disease Family history: Arthritis Family history: Asthma Family history: Breast disease Family history: Coronary thrombosis Family history: Gastrointestinal disease Family history: Glaucoma Family history: Hypertension Family history: Osteoporosis Family history: Thyroid disorder Headache Hearing loss Hereditary disease History of - anemia History of - disorder History of - respiratory disease History of drug abuse Human immunodeficiency virus (HIV) seropositivity Hypercholesterolemia Infertile Kidney disease Malignant neoplasm of lung Myocardial infarction Parkinson's disease Prostate cancer Psychotic disorder Tuberculosis Visual impairment Heart Disease, Seizures Physical Exam Vital Signs Capillary Refill : General Appearance: WD/WN, no apparent distress HEENT: PERRL/EOMI, normal ENT inspection Respiratory: no respiratory distress, no accessory muscle use Neurologic/Psychiatric: alert, normal mood/affect, oriented x 3 Skin: normal color, warm/dry Skin Problem Location: upper extremities Skin Problem Character: other (to the dorsal aspect of the hand overlying the web space between the thumb and pointer finger is a 2 cm area of purpura flat with the surface of the skin and nonblanching. ) Progress/Results/Core Measures Results/Orders My Orders Orders - GOMEZ BROWNING APRN Triamcinolone 0.1% Cream 15 Gm (Kenalog (03/23/18 09:00) Departure Impression Primary Impression: Skin lesion of hand Disposition: 01 HOME, SELF-CARE Condition: Stable Departure-Patient Inst. Decision time for Depature: 21:09 Referrals: [facility] (PCP/Family) Primary Care Physician Patient Instructions: Insect Bites and Stings (DC) Add. Discharge Instructions: All discharge instructions reviewed with patient and/or family. Voiced understanding. GOMEZ BROWNING APRN Mar 22, 2018 21:10
--- OUTSIDE RECORDS SUMMARY | 2018-03-22 21:18 | XMS REPORT | Continuity of Care Document ---
Author Author Formerly [facility] Address Unknown Phone Unavailable Allergies Active Description Code Type Severity Reaction Onset Reported/Identified Relationship to Patient Clinical Status Yes erythromycin Drug Allergy N/ A N/A 10/01/2008 Yes Penicillins Drug Allergy N/A N/A 10/01/2008 Yes erythromycin Drug Allergy 10/01/2008 Yes Penicillins Drug Allergy 10/01/2008 Yes Penicillins [id number] Drug Allergy Severe SWELLING IN THR 12/01/2017 Medications There is no data. Problems Date Dx Coded Attending Type Code Diagnosis Diagnosed By 12/11/2007 RONEY GALVEZ APRN 053.9 HERPES ZOSTER NOS 12/11/2007 RONEY GALVEZ APRN V72.31 TANKERMAN EXAM, ROUTINE 12/11/2007 QUINTEN GILLIAM MD 053.9 HERPES ZOSTER NOS 12/11/2007 QUINTEN GILLIAM MD V72.31 TANKERMAN EXAM, ROUTINE 12/11/2007 DAGO CRUZ MD 053.9 HERPES ZOSTER NOS 12/11/2007 DAGO CRUZ MD V72.31 TANKERMAN EXAM, ROUTINE 12/11/2007 ROSALINDA BRUNO APRN 053.9 HERPES ZOSTER NOS 12/11/2007 ROSALINDA BRUNO APRN V72.31 TANKERMAN EXAM, ROUTINE 12/11/2007 QUINTEN GILLIAM MD 053.9 HERPES ZOSTER NOS 12/11/2007 QUINTEN GILLIAM MD V72.31 TANKERMAN EXAM, ROUTINE 12/11/2007 RAMY MANRIQUE DO 053.9 HERPES ZOSTER NOS 12/11/2007 RAMY MANRIQUE DO V72.31 TANKERMAN EXAM, ROUTINE 12/11/2007 QUINTEN GILLIAM MD 053.9 HERPES ZOSTER NOS 12/11/2007 QUINTEN GILLIAM MD V72.31 TANKERMAN EXAM, ROUTINE 12/11/2007 QUINTEN GILLIAM MD 053.9 HERPES ZOSTER NOS 12/11/2007 QUINTEN GILLIAM MD V72.31 TANKERMAN EXAM, ROUTINE 12/11/2007 RODRIGUES DDS, DARRYN 053.9 HERPES ZOSTER NOS 12/11/2007 RODRIGUES DDS, DARRYN V72.31 TANKERMAN EXAM, ROUTINE 12/11/2007 ABBEY YIN, SHERON R 053.9 HERPES ZOSTER NOS 12/11/2007 ABBEY YIN, SHERON Curran V72.31 TANKERMAN EXAM, ROUTINE 12/11/2007 QUINTEN GILLIAM MD 053.9 HERPES ZOSTER NOS 12/11/2007 QUINTEN GILLIAM MD V72.31 TANKERMAN EXAM, ROUTINE 12/11/2007 RODRIGUES DDS, DARRYN 053.9 HERPES ZOSTER NOS 12/11/2007 RODRIGUES DDS, DARRYN V72.31 TANKERMAN EXAM, ROUTINE 12/11/2007 QUINTEN GILLIAM MD 053.9 HERPES ZOSTER NOS 12/11/2007 QUINTEN GILLIAM MD V72.31 TANKERMAN EXAM, ROUTINE 10/01/2008 RONEY GALVEZ APRN R [...] GILLIAM MD 782.1 RASH 07/26/2013 GOMEZ BROWNING UTILIZATION MANAGER Ot 590.80 PYELONEPHRITIS NOS 07/26/2013 GOMEZ BROWNING APRN Ot 789.04 ABDOMINAL PAIN, LEFT LOWER QUADRANT 07/31/2013 QUINTEN GILLIAM MD N 562.11 DIVERTICULITIS OF COLON (WITHOUT HEMORRHAGE) 07/31/2013 QUINTEN GILLIAM MD N 590.10 ACUTE PYELONEPHRITIS WITHOUT LESION OF RENAL MEDULLARY NECROSIS 07/31/2013 QUINTEN GILLIAM MD N 793.19 OTHER NONSPECIFIC ABNORMAL FINDING OF LUNG FIELD 07/31/2013 QUINTEN GILLAIM MD N 562.11 DIVERTICULITIS OF COLON (WITHOUT [...] TYPE II OR UNSPEC TY 07/13/2016 GRAYSON KMUAR DO Ot 327.23 OBSTRUCTIVE SLEEP APNEA (ADULT) [...] Ot R07.89 OTHER CHEST PAIN 10/02/2016 ARIANA IJMENEZ MD Ot R07.89 OTHER CHEST PAIN 10/08/2016 [...] CAFE PLACE 01/19/2017 LINDSAY FRASER Ot Z79.4 RETIREMENT (CURRENT) USE OF INSULIN 01/19/2017 LINDSAY FRASER [...] CAFE PLACE 01/21/2017 LINDSAY FRASER Ot Z79.4 RETIREMENT (CURRENT) USE OF INSULIN 01/21/2017 LINDSAY FRASER [...] MD Ot I25.10 ATHSCL HEART DISEASE OF [place] CORONARY 02/28/2017 ADALGISA MARTINEZ MD Ot J45.909 UNSPECIFIED ASTHMA, UNCOMPLICATED 02/28/2017 ADALGISA MARTINEZ MD Ot K21.9 GASTRO-ESOPHAGEAL REFLUX DISEASE WITHOUT 02/28/2017 ADALGISA MARTINEZ MD Ot R06.01 ORTHOPNEA 02/28/2017 ADALGISA MARTINEZ MD Ot R10.11 RIGHT UPPER QUADRANT PAIN 02/28/2017 ADALGISA MARTINEZ MD Ot Z79.4 RETIREMENT (CURRENT) USE OF INSULIN 02/28/2017 ADALGISA MARTINEZ MD Ot Z79.899 OTHER RETIREMENT (CURRENT) DRUG THERAPY 07/24/2017 DELMA EVANS DO [...] TOBACCO SMO 12/01/2017 KIESHA MONTALVOIS Ot Z79.4 RETIREMENT (CURRENT) USE OF INSULIN 12/01/2017 KIESHA MONTALVOIS Ot Z79.51 RETIREMENT (CURRENT) USE OF INHALED STERO 12/01/2017 KIESHA [...] Ot K21.9 GASTRO-ESOPHAGEAL REFLUX DISEASE WITHOUT 12/03/2017 BERNMAYELIN AGRAWAL Ot R05 COUGH 12/03/2017 BERNTANJA MAYELIN Ot Z77.22 CNTCT W AND EXPSR TO ENVIRON TOBACCO SMO 12/03/2017 LUISAKIESHA AGRAWALIS Ot Z79.4 TECHNICIAN SEMICONDUCTOR DEVELOPMENT (CURRENT) USE OF INSULIN 12/03/2017 KIESHA MONTALVOIS Ot Z79.51 RETIREMENT (CURRENT) USE OF INHALED STERO 12/03/2017 KATIA MAYELIN Ot Z80.8 FAMILY HISTORY OF MALIGNANT NEOPLASM OF 12/03/2017 BERNTANJA MAYELIN Ot Z82.49 FAMILY HX OF ISCHEM HEART DIS AND OTH DI 12/03/2017 BERNKIESHA AGRAWALIS Ot Z88.0 ALLERGY STATUS TO PENICILLIN 12/03/2017 BERNKIESHA AGRAWALIS Ot Z90.710 ACQUIRED ABSENCE OF BOTH CERVIX AND UTER 03/11/2018 KIYA DO, LEONARDO K Ot E11.9 TYPE 2 DIABETES MELLITUS WITHOUT COMPLIC 03/11/2018 KIYA DO, LEONARDO K Ot E78.00 PURE HYPERCHOLESTEROLEMIA, UNSPECIFIED 03/11/2018 KIYA DO, LEONARDO K Ot G43.909 MIGRAINE, UNSP, NOT INTRACTABLE, WITHOUT 03/11/2018 KIYA DO, LEONARDO K Ot G47.30 SLEEP APNEA, UNSPECIFIED 03/11/2018 KIYA DO, LEONARDO K Ot J45.909 UNSPECIFIED ASTHMA, UNCOMPLICATED 03/11/2018 KIYA DO, LEONARDO K Ot K21.9 GASTRO-ESOPHAGEAL REFLUX DISEASE WITHOUT 03/11/2018 KIYA DO, LEONARDO K Ot R07.89 OTHER CHEST PAIN 03/11/2018 KIYA DO, LEONARDO K Ot Z77.22 CNTCT W AND EXPSR TO ENVIRON TOBACCO SMO 03/11/2018 KIYA DO, LEONARDO K Ot Z79.4 RETIREMENT (CURRENT) USE OF INSULIN 03/11/2018 KIYA DO, LEONARDO K Ot Z79.51 TECHNICIAN SEMICONDUCTOR DEVELOPMENT (CURRENT) USE OF INHALED STERO 03/11/2018 KIYA DO, LEONARDO K Ot Z79.52 RETIREMENT (CURRENT) USE OF SYSTEMIC STER 03/11/2018 KIYA DO, LEONARDO K Ot Z80.8 FAMILY HISTORY OF MALIGNANT NEOPLASM OF 03/11/2018 KIYA DO, LEONARDO K Ot Z82.49 FAMILY HX OF ISCHEM HEART DIS AND OTH DI 03/11/2018 KIYA DO, LEONARDO K Ot Z88.0 ALLERGY STATUS TO PENICILLIN 03/11/2018 LEONARDO HUERTAS DO Ot Z90.710 ACQUIRED ABSENCE OF BOTH CERVIX AND UTER Procedures Code Description Performed By Performed On DIO CAI 05/14/2013 52346 MICRO ALBUMIN-IN HOUSE 05/14/2013 76277 A1C (IN-HOUSE) 05/14/2013 62756 MICROALBUMIN 05/14/2013 30706 PULMONARY FUNCTION TEST (IN- HOUSE) 06/22/2013 15555 RESPIRATORY FLOW VOLUME LOOP 06/22/[address] CHEST W/DYE 06/23/2013 29979 PULMONARY FUNCTION TEST 06/23/2013 GENERAL S DELMA EVANS 07/31/2013 86709 UA W/ CULTURE IF INDICATED 08/05/2013 52394 ROUTINE VENIPUNCTURE 12/02/2013 75690 TSH 12/02/2013 70016 SLEEP STUDY ([facility]- SLEEP STUDY) 12/02/2013 97819 A1C (IN-HOUSE) 12/02/2013 94414 CBC 12/02/20131000540 GFR CALC (RESULT ONLY) 12/02/2013 26437 CMP 12/02/2013 89113 LIPID PANEL 12/02/[address] CHEST W/DYE 06/17/2014 Results Test Result [...] 14:13 A SOURCE NRG A GROSS DESCRIPTION [facility] A DIAGNOSIS [facility] CBC - 04/19/17 12:41 WHITE BLOOD CELL COUNT 7.2 Thousand/uL 3.8-10.8 RED BLOOD CELL COUNT 4.82 Million/uL 3.80-5.10 HEMOGLOBIN 14.4 g/dL 11.7-15.5 HEMATOCRIT 42.1 % 35.0-45.0 MCV 87.3 fL 80.0-100.0 MCH 29.9 pg 27.0-33.0 MCHC 34.2 g/dL 32.0-36.0 RDW 13.1 % 11.0-15.0 PLATELET COUNT 210 Thousand/uL 140-400 MPV 11.9 fL 7.5-12.5 ABSOLUTE NEUTROPHILS 4550 cells/uL 3514-2908 ABSOLUTE LYMPHOCYTES 1973 cells/uL 850-3900 ABSOLUTE MONOCYTES [...] plasma albumin measurement (mass/volume) 4.2 g/dL 3.2-4.5 Complete blood count (CBC) with automated white blood cell (WBC) differential - 03/08/18 23:40 Blood leukocytes automated count (number/volume) 7.8 10*3/uL 4.3-11.0 Blood erythrocytes automated count (number/volume) 4.95 10*6/uL 4.35-5.85 Venous blood hemoglobin measurement (mass/volume) 14.0 g/dL 11.5-16.0 Blood hematocrit (volume fraction) 43 % 35-52 Automated erythrocyte mean corpuscular volume 88 [foz_us] 80-99 Automated erythrocyte mean corpuscular hemoglobin (mass per erythrocyte) 28 pg 25-34 Automated erythrocyte mean corpuscular hemoglobin concentration measurement ( mass/volume) 32 g/dL 32-36 Automated erythrocyte distribution width ratio 13.5 % 10.0-14.5 Automated blood platelet count (count/volume) 209 10*3/uL 130-400 Automated blood platelet mean volume measurement 11.6 [foz_us] 7.4-10.4 Automated blood neutrophils/100 leukocytes 50 % 42-75 Automated blood lymphocytes/100 leukocytes 40 % 12-44 Blood monocytes/100 leukocytes 8 % 0-12 Automated blood eosinophils/100 leukocytes 1 % 0-10 Automated blood basophils/100 leukocytes 1 % 0-10 Blood neutrophils automated count (number/volume) 3.9 10*3 1.8-7.8 Blood lymphocytes automated count (number/volume) 3.1 10*3 1.0-4.0 Blood monocytes automated count (number/volume) 0.7 10*3 0.0-1.0 Automated eosinophil count 0.1 10*3/uL 0.0-0.3 Automated blood basophil count (count/volume) 0.1 10*3/uL 0.0-0.1 PT panel in platelet poor plasma by coagulation assay - 03/08/18 23:40 Prothrombin time (PT) in platelet poor plasma by coagulation assay 12.8 s 12.2-14.7 INR in platelet poor plasma or blood by coagulation assay 1.0 0.8-1.4 Activated partial thromboplastin time (aPTT) in platelet poor plasma bycoagulation assay - 03/08/18 23:40 Activated partial thromboplastin time (aPTT) in platelet poor plasma bycoagulation assay 29 s 24-35 Comprehensive metabolic panel - 03/08/18 23:40 Serum or plasma sodium measurement (moles/volume) 139 mmol/L 135-145 Serum or plasma potassium measurement (moles/volume) 4.0 mmol/L 3.6-5.0 Serum or plasma chloride measurement (moles/volume) 103 mmol/L 98-107 Carbon dioxide 25 mmol/L 21-32 Serum or plasma anion gap determination (moles/volume) 11 mmol/L 5-14 Serum or plasma urea nitrogen measurement (mass/volume) 12 mg/dL 7-18 Serum or plasma creatinine measurement (mass/volume) 0.77 mg/dL 0.60-1.30 Serum or plasma urea nitrogen/creatinine mass ratio 16 NRG Serum or plasma creatinine measurement with calculation of estimated glomerular filtration rate > NRG Serum or plasma glucose measurement (mass/volume) 202 mg/dL 70-105 Serum or plasma calcium measurement (mass/volume) 10.4 mg/dL 8.5-10.1 Serum or plasma total bilirubin measurement (mass/volume) 0.9 mg/dL 0.1-1.0 Serum or plasma alkaline phosphatase measurement (enzymatic activity/volume) 100 U/L 40-136 Serum or plasma aspartate aminotransferase measurement (enzymatic activity/ volume) 15 U/L 5-34 Serum or plasma alanine aminotransferase measurement (enzymatic activity/volume ) 24 U/L 0-55 Serum or plasma protein measurement (mass/volume) 7.5 g/dL 6.4-8.2 Serum or plasma albumin measurement (mass/volume) 4.4 g/dL 3.2-4.5 CALCIUM CORRECTED 10.1 mg/dL 8.5-10.1 Magnesium - 03/08/18 23:40 Magnesium 2.4 mg/dL 1.8-2.4 Serum or plasma creatine kinase measurement (enzymatic activity/volume) - 03/08 23:40 Serum or plasma creatine kinase measurement (enzymatic activity/volume) 75 U/L 29-168 Serum or plasma creatine kinase MB measurement (enzymatic activity/volume) - 23:40 Serum or plasma creatine kinase MB measurement (enzymatic activity/volume) 1.0 ng/mL <6.6 Serum or plasma lithium measurement (moles/volume) - 03/08/18 23:40 BNP level 41.5 pg/mL <100.0 Serum or plasma troponin i.cardiac measurement (mass/volume) - 03/08/18 23:40 Serum or plasma troponin i.cardiac measurement (mass/volume) < ng/ mL <0.30 Serum or plasma amylase measurement (enzymatic activity/volume) - 03/08/18 23: 40 Serum or plasma amylase measurement (enzymatic activity/volume) 37 U /L 25-125 Lipase - 03/08/18 23:40 Lipase 9 U/L 8-78 Serum or plasma thyroxine (T4) free measurement (mass/volume) - 03/08/18 23:40 Serum or plasma thyroxine (T4) free measurement (mass/volume) 0.90 ng/dL 0.70-1.48 Serum or plasma thyrotropin measurement by detection limit <=0.05 miu/l (units/ volume) - 03/08/18 23:40 Serum or plasma thyrotropin measurement by detection limit <=0.05 miu/l (units/ volume) 5.24 u[iU]/mL 0.35-4.94 Influenza virus A and B antigen detection - 03/08/18 23:54 FLU RESULT NEGATIVE FOR INFLUENZA A AND B ANTIGENS BY IA NRG Blood lactic acid measurement (moles/volume) - 03/09/18 00:12 Blood lactic acid measurement (moles/volume) 1.77 mmol/L 0.50-2.00 Bacterial blood culture - 03/09/18 00:12 Bacterial blood culture NG NRG Bacterial blood culture - 03/09/18 00:25 Bacterial blood culture NG NRG Complete urinalysis with reflex to culture - 03/09/18 02:20 Urine color determination YELLOW NRG Urine clarity determination SLIGHTLY CLOUDY NRG Urine pH measurement by test strip 5 5-9 Specific gravity of urine by test strip 1.010 1.016- 1.022 Urine protein assay by test strip, semi-quantitative NEGATIVE NEGATIVE Urine glucose detection by automated test strip NEGATIVE NEGATIVE Erythrocytes detection in urine sediment by light microscopy NEGATIVE NEGATIVE Urine ketones detection by automated test strip NEGATIVE NEGATIVE Urine nitrite detection by test strip NEGATIVE NEGATIVE Urine total bilirubin detection by test strip NEGATIVE NEGATIVE Urine urobilinogen measurement by automated test strip (mass/volume) NORMAL NORMAL Urine leukocyte esterase detection by dipstick NEGATIVE NEGATIVE Automated urine sediment erythrocyte count by microscopy (number/high power field) NONE NRG Automated urine sediment leukocyte count by microscopy (number/high power field ) NONE NRG Bacteria detection in urine sediment by light microscopy MODERATE NRG Squamous epithelial cells detection in urine sediment by light microscopy 2-5 NRG Crystals detection in urine sediment by light microscopy NONE NRG Casts detection in urine sediment by light microscopy NONE NRG Mucus detection in urine sediment by light microscopy NEGATIVE NRG Complete urinalysis with reflex to culture YES NRG Bacterial urine culture - 03/09/18 02:20 Bacterial urine culture SEE REPORT NRG COLONY COUNT . NRG Serum or plasma troponin i.cardiac measurement (mass/volume) - 03/09/18 02:50 Serum or plasma troponin i.cardiac measurement (mass/volume) < ng/ mL <0.30 Encounters ACCT No. Visit Date/Time Discharge Status Pt. Type Provider Facility Loc./Unit Complaint [id number] 06/17/2014 15:42:00 06/17/2014 23:59:59 CLS Outpatient QUINTEN GILLIAM MD [id number] 01/13/2014 16:10:00 01/13/2014 23:59:59 CLS Outpatient DARRYN RODRIGUES DDS [id number] 12/02/2013 09:26:00 12/02/2013 23:59:59 CLS Outpatient QUINTEN GILLIAM MD [id number] 11/02/2013 13:43:00 11/02/2013 23:59:59 CLS Outpatient DARRYN RODRIGUES DDS [id number] 08/05/2013 11:59:00 08/05/2013 23:59:59 CLS Outpatient QUINTEN GILLIAM MD [id number] 07/31/2013 10:41:00 07/31/2013 23:59:59 CLS Outpatient QUINTEN GILLIAM MD [id number] 07/04/2013 12:42:00 07/04/2013 23:59:59 CLS Outpatient BURTON RAMY PEREZ [place] [id number] 06/23/2013 13:34:00 06/23/2013 23:59:59 CLS Outpatient QUINTEN GILLIAM MD [id number] 06/22/2013 15:04:00 06/22/2013 23:59:59 CLS Outpatient ROSALINDA BRUNO APRN [id number] 06/01/2013 16:19:00 06/01/2013 23:59:59 CLS Outpatient DAGO CRUZ MD [id number] 05/14/2013 14:33:00 05/14/2013 23:59:59 CLS Outpatient QUINTEN GILLIAM MD [id number] 11/17/2012 12:46:00 11/17/2012 23:59:59 CLS Outpatient RONEY GALVEZ APRN [id number] 10/01/2008 10:59:00 10/01/2008 23:59:59 CLS Outpatient SHERON POTTER APRN [id number] 12/12/2017 14:00:00 12/12/2017 23:59:59 CLS Outpatient QUINTEN GILLIAM MD [facility] [id number] 04/19/2017 12:00:00 Document Registration [id number] 04/12/2017 10:40:00 Document Registration [id number] 03/08/2018 22:40:00 03/09/2018 04:30:00 DIS Outpatient LEONARDO HUERTAS DO [facility] ER CHEST AND BILAT ARM HEAVINESS/LETHARGIC/BS 279 [id number] 12/01/2017 19:01:00 12/01/2017 20:38:00 DIS Emergency KATIA MAYELIN [facility] ER SINUS ISSUES,DRAINAGE [id number] 11/27/2017 11:00:00 11/27/2017 23:59:59 CLS Preadmit QUINTEN GILLIAM MD [facility] CARD R00.2 PALPITATIONS [id number] 08/28/2017 08:28:00 11/26/2017 00:01:00 DIS Outpatient QUINTEN GILLIAM MD [facility] CARD R00.2 PALPITATIONS [id number] 07/30/2017 08:00:00 07/30/2017 23:59:59 CLS Preadmit DELMA EVANS DO [facility] ENDO SCREENING [id number] 07/23/2017 05:42:00 07/23/2017 23:59:59 CLS Outpatient DELMA EVANS DO [facility] PREOP COLONOSCOPY [id number] 02/27/2017 22:55:00 02/28/2017 17:00:00 DIS Inpatient MICHELLE CLEMONS, ADALGISA Curran [facility] 4TH CHEST PAIN;ORTHOPNEA [id number] 01/19/2017 15:18:00 01/19/2017 19:05:00 DIS Emergency LINDSAY FRASER [facility] ER FALL, HIP PAIN [id number] 10/08/2016 13:02:00 10/08/2016 14:06:00 DIS Emergency TOM RANDALL MD [facility] ER HEART RACING [id number] 10/01/2016 07:24:00 10/01/2016 23:59:59 CLS Outpatient ARIANA JIMENEZ MD [facility] CARD R07.89 CHEST PAIN [id number] 09/26/2016 10:05:00 09/26/2016 23:59:59 CLS Outpatient ARIANA JIMENEZ MD [facility] CARD R07.89 OTHER CHEST PAIN [id number] 07/13/2016 08:36:00 07/13/2016 23:59:59 CLS Outpatient QUINTEN GILLIAM MD [facility] CARD ABDOMINAL BLOATING [id number] 04/13/2015 13:35:00 04/13/2015 23:59:59 CLS Outpatient ARIANA JIMENEZ MD [facility] CARD PALPITATIONS,SYNCOPE [id number] 01/24/2015 21:33:00 01/24/2015 23:03:00 DIS Emergency LINDSAY FRASER [facility] ER COUGH, SINUS DRIANAGE [id number] 12/24/2014 15:42:00 12/24/2014 23:59:59 CLS Outpatient GRAYSON KUMAR DO [facility] RT DYSPENA MARIOLA [id number] 10/03/2014 19:46:00 10/03/2014 20:53:00 DIS Emergency NAUN COLEMAN MD [facility] ER L EYE IRRITATION [id number] 09/29/2014 08:12:00 09/29/2014 23:59:59 CLS Outpatient QUINTEN GILLIAM MD [facility] CARD INTERMITTENT CHEST PAIN [id number] 09/27/2014 12:54:00 09/27/2014 23:59:59 CLS Outpatient QUINTEN GILLIAM MD [facility] RAD FOLLOW UP LUNG NODULE [id number] 08/27/2014 19:26:00 08/27/2014 22:21:00 DIS Emergency TOM RANDALL MD [facility] ER R SIDE PAIN [id number] 06/16/2014 19:47:00 06/17/2014 06:35:00 DIS Outpatient QUINTEN GILLIAM MD [facility] SLEEP CATAPLEXY,NARCOLEPSY [id number] 04/05/2014 00:24:00 04/05/2014 01:10:00 DIS Emergency NELY BAUGH MD [facility] ER MULTIPLE COMPLAINTS [id number] 03/22/2014 21:10:00 03/23/2014 17:50:00 DIS Outpatient QUINTEN GILLIAM MD [facility] SLEEP CATAPLEXY, NARCOLEPSY [id number] 07/26/2013 17:49:00 07/26/2013 20:08:00 DIS Emergency GOMEZ BROWNING APRN [facility] ER MULTIPLE COMPLAINTS [id number] 07/01/2013 15:50:00 07/01/2013 23:59:59 CLS Outpatient QUINTEN GILLIAM MD [facility] RT SOB [id number] 06/26/2013 12:23:00 06/26/2013 23:59:59 CLS Outpatient QUINTEN GILLIAM MD [facility] RAD F/U NODULE [id number] 05/09/2013 21:35:00 05/12/2013 12:20:00 DIS Outpatient CHETAN GRAYSON MD [facility] CATH CP [id number] 03/22/2018 20:42:00 ACT Emergency LEONARDO HUERTAS DO [facility] ER INSECT BITE [id number] 04/06/2012 01:18:00 Document Registration [id number] 12/24/2011 10:35:00 Document Registration [id number] 08/20/2011 19:47:00 Document Registration [id number] 03/15/2011 22:51:00 Document Registration [id number] 02/25/2016 07:05:00 Document Registration
[2018-03-22] MEDS ORDERED: HYDROCORTISONE 1% CREAM 30 GM TUBE ONE (21:24)
[2018-03-22 21:30] VITALS: BP 145/80
[2018-03-23] MEDS ORDERED: TRIAMCINOLONE 0.1% CR (KENALOG) 15 GM TUBE TOP SCH (09:00)
== END 2018-03-22 21:30 | disposition home or self-care (01) ==
LOC: EDUNIT# 20:41 → ER 20:42
DX: L98.9 Disorder of the skin and subcutaneous tissue, unspecified (principal); J45.909 Unspecified asthma, uncomplicated; G47.30 Sleep apnea, unspecified; E78.00 Pure hypercholesterolemia, unspecified; G43.909 Migraine, unspecified, not intractable, without status migrainosus; K21.9 Gastro-esophageal reflux disease without esophagitis; E11.9 Type 2 diabetes mellitus without complications; Z82.49 Family history of ischemic heart disease and other diseases of the circulatory system; Z80.8 Family history of malignant neoplasm of other organs or systems; Z79.51 Long term (current) use of inhaled steroids; Z79.4 Long term (current) use of insulin; Z79.52 Long term (current) use of systemic steroids; Z88.0 Allergy status to penicillin; Z77.22 Contact with and (suspected) exposure to environmental tobacco smoke (acute) (chronic); Z90.710 Acquired absence of both cervix and uterus
CPT/HCPCS: 99283

== ENCOUNTER 2018-04-18 14:57 | Emergency (ER) | payer MEDICAID ==
[~2018-04-18] VITALS: Ht 162.6 cm; Wt 90.7 kg
--- OUTSIDE RECORDS SUMMARY | 2018-04-18 15:06 | XMS REPORT ---
Author Author JEFF BELTRÁN Organization [facility] Address [address] [place] [address] Care Team Providers Care Parent Educator Name Role Phone MARGIE BELTRÁNTA Unavailable PROBLEMS Type Condition ICD9-CM Code [id number] Code Onset Dates Condition Status SNOMED Code Problem Primary narcolepsy with cataplexy G47.411 Active 091557003 Problem Gastroesophageal reflux disease with esophagitis K21.0 Active 368792492 Problem Right carpal tunnel syndrome G56.01 Active 31386740 Problem Seasonal allergic rhinitis, unspecified trigger J30.2 Active 417928662 Problem Porokeratosis Q82.8 Active 828837592 Problem Obesity E66.9 Active 775804453 Problem Other chronic pain G89.29 Active 34353910 Problem Non-alcoholic fatty liver disease K76.0 Active 175258866 Problem Tarsal tunnel syndrome of left side G57.52 Active 96905132 Problem Nuclear cataract of both eyes H25.13 Active 49335378 Problem Presbyopia OU H52.4 Active 51819372 Problem Posterior subcapsular age-related cataract of both eyes H25.043 Active 2927298 Problem Type 2 diabetes mellitus with hyperglycemia E11.65 Active 46521876 Problem Lung nodule R91.1 Active 304092088 Problem Delayed gastric emptying K30 Active 119292309 Problem Obstructive sleep apnea G47.33 Active 82467327 Problem Hypermetropia, bilateral H52.03 Active 96390068 Problem Mixed hyperlipidemia E78.2 Active 527110892 ALLERGIES No Information ENCOUNTERS Encounter Location Date Diagnosis [facility] [id number] [place] [address] 59567- 0733 Apr, [facility] [id number] [place] [address] 19817- 9278 Apr, Type 2 diabetes mellitus with hyperglycemia E11.65 [facility] [address] [address] 6292 Mar, [facility] [address] [address] 6456 Mar, [facility] [id number] [place] [address] 75695- 6238 Mar, [facility] [id number] [place] [address] 10971- 8780 Mar, [facility] [id number] [place] [address] 99304- 9767 Feb, [facility] [id number] [place] [address] 54439- 8911 Feb, Type 2 diabetes mellitus with hyperglycemia E11.65 and Epigastric abdominal pain R10.13 [facility] [id number] [place] [address] 47148- 3377 Feb, [facility] [id number] [place] [address] 51198- 3523 Feb, [facility] [id number] [place] [address] 90810- 5154 Feb, [facility] [id number] [place] [address] 67230- 4915 Feb, Seasonal allergic rhinitis, unspecified trigger J30.2 [facility] [id number] [place] [address] 51971- 2774 Feb, Type 2 diabetes mellitus with hyperglycemia E11.65 [facility] [address] [place] [address] 93639- 4210 Feb, Viral upper respiratory tract infection J06.9 and Encounter for immunization Z23 [facility] [id number] [place] [address] 27268- 9130 Feb, [facility] [address] [address]- 3197 Jan, Type 2 diabetes mellitus with hyperglycemia E11.65 [facility] [id number] [address]- 1019 Jan, Type 2 diabetes mellitus with hyperglycemia E11.65 [facility] [id number] [place] [address] 45620- 7969 Dec, Chest pain on breathing R07.1 [facility] [id number] [place] [address] 35313 -3111 Dec, Chest pain on breathing R07.1 [facility] [id number] [place] [address] 02592- 7986 Dec, Well woman exam Z01.419 ; Screening for breast cancer Z12.31 and Screening for colon cancer Z12.11 [facility] [facility] [id number] [place] [address] 01321- 1238 Dec, [facility] [id number] [place] [address] 05034- 3182 Dec, Type 2 diabetes mellitus with hyperglycemia E11.65 ; Mixed hyperlipidemia E78.2 and Gastroesophageal reflux disease with esophagitis K21.0 [facility] [id number] [place] [address] 73368- 1536 Nov, Type 2 diabetes mellitus with hyperglycemia E11.65 and Mixed hyperlipidemia E78.2 [facility] [id number] [place] [address] 03282- 8828 Nov, [facility] [id number] [place] [address] 08216- 7711 Oct, Back muscle spasm M62.830 and Bilateral low back pain without sciatica M54.5 [facility] [id number] [place] [address] 17592- 0723 Oct, [facility] [id number] [place] [address] 48266- 6505 September, [facility] [id number] [place] [address] 51549- 0039 September, Type 2 diabetes mellitus with hyperglycemia E11.65 [facility] [facility] [id number] [place] [address] 92221- 9793 September, Type 2 diabetes mellitus with hyperglycemia E11.65 [facility] [facility] [address] 10646- 4880 September, Porokeratosis Q82.8 and Type 2 diabetes mellitus with diabetic polyneuropathy E11.42 [facility] [address] 78793 -7906 Aug, Seasonal allergic rhinitis, unspecified trigger J30.2 [place] [address] 17369- 4415 Aug, [facility] [facility] [address] 86136- 4674 Aug, Bilateral low back pain without sciatica M54.5 [facility] [address] [id number] Aug, Dental examination V72.2 and Dental examination Z01.20 [place] [address] 32960- 8834 Aug, Dental examination Z01.20 and Dental caries K02.9 [facility] [facility] [id number] [place] [address] 29093- 0744 Aug, Obstructive sleep apnea G47.33 ; Obesity E66.9 ; Type 2 diabetes mellitus with hyperglycemia E11.65 ; Palpitations R00.2 and Corns and callosities L84 [facility] [facility] [id number] [place] [address] 87425- 2403 Jul, [facility] [address] 35220- 8704 Jul, [facility] [id number] [place] [address] 27902- 4028 Jun, Type 2 diabetes mellitus with hyperglycemia E11.65 ; Colon cancer screening Z12.11 ; Mixed hyperlipidemia E78.2 ; Non-alcoholic fatty liver disease K76.0 ; Gastroesophageal reflux disease with esophagitis K21.0 and Pain of upper abdomen R10.10 [facility] [id number] [place] [address] 67669- 1974 09 Jun, 2017 Falls frequently R29.6 [facility] [id number] [place] [address] 35109 -3278 May, Infection of nose J34.89 [facility] [address] 65592- 0107 May, Bilateral low back pain without sciatica M54.5 [facility] [facility] [id number] [place] [address] 31921- 0024 May, Type 2 diabetes mellitus with diabetic polyneuropathy E11.42 ; Obstructive sleep apnea G47.33 and Type 2 diabetes mellitus with hyperglycemia E11.65 [facility] [facility] [id number] [place] [address] 78809- 8972 Apr, Bilateral low back pain without sciatica M54.5 [facility] [facility] [id number] [place] [address] 68179- 8009 Apr, Mixed hyperlipidemia E78.2 and Type 2 diabetes mellitus with hyperglycemia E11.65 [facility] [facility] [id number] [place] [address] 07382- 6333 Apr, Type 2 diabetes mellitus with diabetic polyneuropathy E11.42 [facility] [id number] [place] [address] 49138- 2046 Apr, [facility] [facility] [id number] [place] [address] 92594- 4158 Apr, Skin lesion of left arm L98.9 and Skin lesion of left leg L98.9 [facility] [id number] [place] [address] 95441- 0515 Mar, Bilateral low back pain without sciatica M54.5 [facility] [facility] [id number] [place] [address] 76044- 0752 Mar, Plantar fasciitis of left foot M72.2 ; Bursitis of left foot M71.572 and Type 2 diabetes mellitus with diabetic polyneuropathy E11.42 [facility] [address] 47694- 2846 Feb, Non-alcoholic fatty liver disease K76.0 ; Keratoacanthoma L85.8 ; Seborrheic keratosis L82.1 ; Type 2 diabetes mellitus with hyperglycemia E11.65 and Nuclear cataract of both eyes H25.13 [facility] [address] [id number] Feb, [facility] [address] 11670- 5809 Feb, [place] [address] 17727- 4478 Feb, [facility] [facility] [address] 53052- 8425 Feb, Type 2 diabetes mellitus with hyperglycemia E11.65 ; Back muscle spasm M62.830 and Encounter for immunization Z23 [facility] [id number] [place] [address] 36504- 8887 Jan, Plantar fasciitis of left foot M72.2 [facility] [id number] [place] [address] 95069- 8039 Dec, [facility] [address] 25522- 0490 Dec, Plantar fasciitis of left foot M72.2 and Tarsal tunnel syndrome of left side G57.52 [facility] [id number] [place] [address] 95887- 8075 Dec, [facility] [address] 13031 -0048 Nov, Mary Jane rash of groin B37.89 and Rash and nonspecific skin eruption R21 [facility] [address] 14507- 7858 Nov, [facility] [address] [place] [address] 04732- 2547 Oct, Type 2 diabetes mellitus with hyperglycemia E11.65 and Mixed hyperlipidemia E78.2 [facility] [id number] [place] [address] 07741- 4202 Oct, [place] [id number] [place] [address] 91491- 5612 Oct, Chest pain, unspecified R07.9 ; Palpitations R00.2 ; Syncope R55 and Mixed hyperlipidemia E78.2 [place] [id number] [place] [address] 01628- 1821 Oct, Plantar fasciitis, bilateral M72.2 and Type 1 diabetes mellitus with diabetic neuropathy E10.40 [facility] [facility] [id number] [place] [address] 66845- 3860 Oct, [facility] [facility] [id number] [place] [address] 57525- 8836 September, Type 2 diabetes mellitus with hyperglycemia E11.65 [facility] [facility] [id number] [place] [address] 57634- 9445 September, Type 2 diabetes mellitus with hyperglycemia E11.65 ; Type 2 diabetes mellitus with diabetic polyneuropathy E11.42 ; Gastroesophageal reflux disease with esophagitis K21.0 and Headache, unspecified headache type R51 [facility] [facility] [id number] [place] [address] 81875- 2964 September, [facility] [id number] [place] [address] 78912- 2821 September, [facility] [id number] [place] [address] 09083- 5804 September, [facility] [id number] [place] [address] 76606- 9944 September, Other chest pain R07.89 ; Heart palpitations R00.2 ; Mixed hyperlipidemia E78.2 and Obesity E66.9 [facility] [address], [place] [address]- 2149 Aug, [facility] [address], [place] [address]- 2950 Aug, Type 2 diabetes mellitus with diabetic polyneuropathy E11.42 and Type 2 diabetes mellitus with hyperglycemia E11.65 [facility] [address], [place] [address]- 2837 Aug, [facility] [address], [place] [address]- 2565 Aug, [facility] [address] [address]- 3587 Aug, [facility] [address], [place] [address]- 1307 Aug, Type 2 diabetes mellitus with hyperglycemia E11.65 [facility] [address] [address]- 6507 Aug, [facility] [address], [place] [address]- 8172 Jul, Type 2 diabetes mellitus with diabetic polyneuropathy E11.42 [facility] [address], [place] [address]- 7465 Jul, Type 2 diabetes mellitus with hyperglycemia E11.65 [facility] [address] [address]- 3671 Jul, [facility] [id number] [address]- 0892 Jul, [facility] [address] [address]- 4234 Jul, [facility] [address], [place] [address]- 4948 Jul, Type 2 diabetes mellitus with diabetic polyneuropathy E11.42 and Type 2 diabetes mellitus with hyperglycemia E11.65 [facility] [id number] [place] [address] 45970- 5433 Jun, Obstructive sleep apnea G47.33 [facility] [id number] [place] [address] 47468- 9343 Jun, Type 2 diabetes mellitus with diabetic polyneuropathy E11.42 ; Primary narcolepsy with cataplexy G47.411 ; Abdominal bloating R14.0 ; Other chest pain R07.89 and Vision problems H54.7 [facility] [id number] [place] [address] 83107- 0494 Jun, [facility] [id number] [place] [address] 84809- 7750 May, [facility] [id number] [place] [address] 83574- 3118 Apr, [facility] [id number] [place] [address] 75896- 2875 Apr, Plantar fasciitis of left foot M72.2 [facility] [id number] [place] [address] 98167- 5963 Mar, [facility] [id number] [place] [address] 97990- 1889 Mar, Plantar fasciitis of left foot M72.2 and Type 2 diabetes mellitus with diabetic polyneuropathy E11.42 [place] [id number] [place] [address] 43543- 7156 Feb, Type 2 diabetes mellitus with hyperglycemia E11.65 ; Mixed hyperlipidemia E78.2 and Encounter for immunization Z23 [facility] [id number] [place] [address] 71332- 6316 Feb, [facility] [address] 98092- 4396 Feb, [facility] [id number] [place] [address] 27581- 6773 Feb, Type 2 diabetes mellitus with hyperglycemia E11.65 [place] [id number] [place] [address] 81234- 8912 Feb, Type 2 diabetes mellitus with hyperglycemia E11.65 [facility] [id number] [place] [address] 49775- 5375 Jan, [facility] [id number] [place] [address] 02049- 0913 Dec, Pain in left foot M79.672 ; Other chronic pain G89.29 ; Type 2 diabetes mellitus with hyperglycemia E11.65 ; Obstructive sleep apnea G47.33 ; Falls frequently R29.6 ; Mixed hyperlipidemia E78.2 and Gastroesophageal reflux disease with esophagitis K21.0 [facility] [id number] [place] [address] 09367- 1067 Nov, [facility] [id number] [place] [address] 12584- 4280 Oct, Type 2 diabetes mellitus with diabetic polyneuropathy E11.42 [facility] [id number] [place] [address] 67551- 6732 Oct, [facility] [id number] [place] [address] 24544- 1367 Oct, [facility] [id number] [place] [address] 59449- 9797 September, [facility] [id number] [place] [address] 76433- 3868 September, [facility] [id number] [place] [address] 15117- 7133 September, [facility] [id number] [place] [address] 82772- 8068 September, [facility] [id number] [place] [address] 79354- 0947 September, [facility] [id number] [place] [address] 90364- 0290 Aug, Type 2 diabetes mellitus with hyperglycemia E11.65 ; Mixed hyperlipidemia E78.2 and Right carpal tunnel syndrome G56.01 [facility] [address] [address]- 5700 Aug, [facility] [id number] [place] [address] 06090- 2872 Jul, [facility] [id number] [place] [address] 26313- 8650 Jun, [facility] [id number] [place] [address] 66249- 9534 Jun, [facility] [id number] [place] [address] 98659- 6390 May, [facility] [id number] [place] [address] 57037- 9386 May, [facility] [id number] [place] [address] 34326- 7267 May, Type 2 diabetes mellitus with hyperglycemia E11.65 and Falls E888.9 [facility] [id number] [place] [address] 87595- 1933 Apr, Type 2 diabetes mellitus with hyperglycemia E11.65 [facility] [id number] [place] [address] 77796- 0354 Apr, [facility] [address] [place] [address] 29645- 7922 Apr, Type 2 diabetes mellitus with hyperglycemia E11.65 [facility] [address] [place] [address] 02644- 1562 Apr, [facility] [id number] [place] [address] 83207- 0649 Mar, Type 2 diabetes mellitus with diabetic polyneuropathy E11.42 ; Bilateral low back pain without sciatica M54.5 and Dry nose J34.89 [facility] [id number] [place] [address] 51178- 3183 Mar, Palpitations R00.2 ; Syncope R55 ; DM (diabetes mellitus) E11.9 and Obesity E66.9 [facility] [address] 78355- 1270 Mar, [facility] [address] 30841- 9237 Mar, [facility] [address] 15404- 5297 Mar, [facility] [address] 07320- 6710 Feb, [facility] [address] 21442- 1734 Jan, [facility] [address] 83381- 5137 Jan, [facility] [address] 48466- 0055 Jan, Falls E888.9 and Sinusitis 473.9 [facility] [address] 05888- 2317 Dec, [facility] [address] 72361- 9372 Dec, [facility] [id number] [place] [address] 92510- 9657 Dec, [facility] [id number] [place] [address] 37663- 3979 Dec, [facility] [id number] [place] [address] 43065- 8735 Dec, Diabetes mellitus without mention of complication, type II or unspecified type, not stated as uncontrolled 250.00 and Shortness of breath 786.05 [facility] [id number] [place] [address] 76103- 9679 Dec, [facility] [address] 76920- 3562 Nov, [facility] [id number] [place] [address] 28593- 1831 Nov, [facility] [id number] [place] [address] 904735- 1816 Oct, Restrictive lung disease 518.89 [facility] [id number] [place] [address] 52946- 5314 Oct, [facility] [id number] [place] [address] 62665- 6613 Oct, Shortness of breath 786.05 [facility] [id number] [place] [address] 62707- 9551 September, Other nonspecific abnormal finding of lung field 793.19 ; Diabetes mellitus without mention of complication, type II or unspecified type, not stated as uncontrolled 250.00 ; Hyperlipidemia LDL goal < 100 272.4 ; Narcolepsy, with cataplexy 347.01 ; Shortness of breath 786.05 and Chest pain 786.50 [facility] [id number] [place] [address] 27583- 5934 Aug, [facility] [id number] [place] [address] 19659- 9872 Aug, [facility] [id number] [address]- 8131 Jun, [facility] [id number] [place] [address] 75006- 4252 Jun, [facility] [id number] [place] [address] 19341- 3286 Jun, [facility] [id number] [place] [address]- [address] Jun, [facility] [id number] [place] [address]- [address] Jun, [facility] [id number] [place] [address] Jun, 2014 [facility] [place] [facility] [address] [id number] [place] [address] Jun, 2014 [facility] [place] [facility] [address] [id number] [place] [address] Jun, [facility] [place] [facility] [address] [id number] [place] [address] May, [facility] [place] [facility] [address] [id number] [place] [address] May, [facility] [place] [facility] [address] [id number] [place] [address] Apr, [facility] [place] [facility] [address] [id number] [place] [address] Apr, [facility] [place] [facility] [address] [id number] [place] [address] Mar, [facility] [place] [facility] [address] [id number] [place] [address] Mar, [facility] [place] [facility] [address] [id number] [place] [address] Mar, [facility] [place] [facility] [address] [id number] [place] [address] Mar, [facility] [place] [facility] [address] [id number] [place] [address] Nov, [facility] [place] [facility] [address] [id number] [place] [address] Nov, [facility] [place] [facility] [address] [id number] [place] [address] Nov, [facility] [place] [facility] [address] [id number] [place] [address]- [address] Nov, [facility] [place] [facility] [address] [id number] [place] [address]- [address] Oct, [facility] [place] [facility] [address] [id number] [place] [address]- [address] Oct, [facility] [place] [facility] [address] [id number] [place] [address]- [address] Oct, [facility] [place] [facility] [address] [id number] [place] [address]- 8380 Oct, [facility] [place] [facility] [address] [id number] [place] [address]- [address] Oct, [facility] [place] [facility] [address] [id number] [place] [address] Oct, [facility] [place] [facility] [address] [id number] [place] [address] Oct, [facility] [place] [facility] [address] [id number] [place] [address] Oct, [facility] [place] [facility] [address] [id number] [place] [address] Oct, [facility] [place] [facility] [address] [id number] [place] [address] Oct, [facility] [place] [facility] [address] [id number] [place] [address] September, [facility] [place] [facility] [address] [id number] [place] [address] September, [facility] [place] [facility] [address] [id number], [place] [address] Aug, [facility] [place] [facility] [address] [id number] [place] [address] Aug, [facility] [place] [facility] [address] [id number] [place] [address] Aug, [facility] [place] [facility] [address] [id number] [place] [address] Aug, [facility] [place] [facility] [address] [id number] [place] [address] Aug, [facility] [place] [facility] [address] [id number] [place] [address] Aug, [facility] [place] [facility] [address] [id number] [place] [address] Jul, [facility] [place] [facility] [address] [id number] [place] [address] Jul, [facility] [place] [facility] [address] [id number] [place] [address] Jul, [facility] [place] [facility] [address] [id number] [place] [address]- [address] Jul, [facility] [place] [facility] [address] [id number] [place] [address]- 270[address] Jul, [facility] [place] [facility] [address] [id number] [place] [address] Jul, [facility] [place] [facility] [address] [id number] [place] [address] Jul, [facility] [place] [facility] [address] [id number] [place] [address] Jul, [facility] [place] [facility] [address] [id number] [place] [address]- [address] 24 Jul, 2013 [facility] [place] [facility] [address] [id number] [place] [address]- [address] Jul, [facility] [place] [facility] [address] [id number] [place] [address]- [address] 21 Jul, 2013 [facility] [place] [facility] [address] [id number] [place] [address]- [address] 19 Jul, 2013 [facility] [place] [facility] [address] [id number] [place] [address]- [address] 19 Jul, 2013 [facility] [place] [facility] [address] [id number] [place] [address]- [address] 14 Jul, 2013 [facility] [place] [facility] [address] [id number] [place] [address]- [address] Jul, [facility] [place] [facility] [address] [id number] [place] [address] 47[address] Jul, [facility] [place] [facility] [address] [id number] [place] [address]- [address] Jun, [facility] [place] [facility] [address] [id number] [place] [address]- [address] Jun, [facility] [place] [facility] [address] [id number] [place] [address]- [address] Jun, [facility] [place] [facility] [address] [id number] [place] [address] Jun, [facility] [place] [facility] [address] [facility] [id number] [place] [address]- [address] Jun, [facility] [place] [facility] [address] [id number] [place] [address] Jun, [facility] [place] [facility] [address] [id number] [place] [address]- [address] Jun, [facility] [place] [facility] [address] [facility] [id number] [place] [address]- [address] Jun, [facility] [place] [facility] [address] [facility] [id number] [place] [address]- [address] Jun, [facility] [place] [facility] [address] [id number] [place] [address]- [address] Jun, [facility] [place] [facility] [address] [id number] [place] [address]- [address] Jun, [facility] [place] [facility] [address] [id number] [place] [address]- [address] 18 Jun, 2013 [facility] [place] [facility] [address] [facility] [id number] [place] [address]- [address]148 14 Jun, 2013 [facility] [place] [facility] [address] [id number] [place] [address]- [address]57 13 Jun, 2013 [facility] [place] [facility] [address] [id number] [place] [address]- 3836 13 Jun, 2013 [facility] [place] [facility] [address] [id number] [place] [address]- 9826 13 Jun, 2013 [facility] [place] [facility] [address] [facility] [id number] [place] [address]- [address] 13 Jun, 2013 [facility] [place] [facility] [address] [id number] [place] [address]- [address]478 12 Jun, 2013 [facility] [place] [facility] [address] [facility] [id number] [place] [address]- 2314 Jun, 2013 [facility] [place] [facility] [address] [facility] [id number] [place] [address]- [address]240 Jun, 2013 [facility] [place] [facility] [address] [facility] [id number] [place] [address]- [address]190 Jun, 2013 [facility] [place] [facility] [address] [facility] [id number] [place] [address]- 37[address] 10 Jun, 2013 [facility] [place] [facility] [address] [facility] [id number] [place] [address]- 8325 07 Jun, 2013 [facility] [place] [facility] [address] [facility] [id number] [place] [address]- 6400 Jun, 2013 [facility] [place] [facility] [address] [facility] [id number], [place] [address]- [address] Jun, 2013 [facility] [place] [facility] [address] [facility] [id number] [place] [address]- [address]12 Jun, 2013 [facility] [place] [facility] [address] [facility] [id number] [place] [address]- [address] Jun, 2013 [facility] [place] [facility] [address] [facility] [id number] [place] [address]- 9003 Jun, 2013 [facility] [place] [facility] [address] [facility] [id number] [address]- [address] Jun, [facility] [address] [id number] [place] [address]- 72[address] Jun, [facility] [place] [facility] [address] [id number] [place] [address]- 2826 May, [facility] [place] [facility] [address] [id number] [place] [address]- 3399 May, [facility] [place] [facility] [address] [id number] [place] [address]- [address]234 May, [facility] [place] [facility] [address] [id number] [place] [address]- 3437 May, [facility] [place] [facility] [address] [id number] [place] [address]- 5053 May, [facility] [address] [id number] [place] [address]- 0113 May, [facility] [place] [facility] [address] [id number] [place] [address]- 8810 May, [facility] [place] [facility] [address] [id number] [place] [address]- 6160 May, [facility] [place] [facility] [address] [id number] [place] [address]- 0908 May, [facility] [place] [facility] [address] [id number] [place] [address]- 0654 May, [facility] [place] [facility] [address] [id number] [place] [address]- 0483 May, [facility] [place] [facility] [address] [id number] [place] [address]- 3708 May, [facility] [place] [facility] [address] [id number] [place] [address]- 2062 May, [facility] [place] [facility] [address] [id number] [place] [address]- 6362 May, [facility] [place] [facility] [address] [facility] [id number], [place] [address] May, [facility] [address] [facility] [id number], [place] [address] Apr, [facility] [address] [facility] [id number], [place] [address]- [address]36 Apr, [facility] [address] [facility] [id number], [place] [address]- [address] Dec, [facility] [address] [facility] [id number], [place] [address]- [address] Nov, [facility] [address] [facility] [id number], [place] [address]- 8[address] May, [facility] [id number] [address] Apr, [facility] [id number] Apr, [facility] [address] [id number] [address] Apr, [facility] [address] [id number] [address] Apr, IMMUNIZATIONS No Known Immunizations SOCIAL HISTORY Never Assessed REASON FOR VISIT Refill request PLAN OF CARE VITAL SIGNS MEDICATIONS Medication Instructions Dosage Frequency Start Date End Date Duration Status Levemir FlexTouch 100 UNIT/ML INJECT 65 UNITS SUBCUTANEOUSLY TWICE DAILY 34 days Active RESULTS No Results PROCEDURES No Known procedures INSTRUCTIONS MEDICATIONS ADMINISTERED No Known Medications MEDICAL (GENERAL) HISTORY Type Description Date Medical History asthma Medical History type II diabetes Medical History sleep apnea Medical History narcolepsy Medical History Shortness of breath Medical History Shortness of breath Medical History Falls frequently Medical History Pain in left foot Surgical History hysterectomy, partial Hospitalization History Chest pain-[facility] 02/27/17 Hospitalization History ER 03/08/18
--- OUTSIDE RECORDS SUMMARY | 2018-04-18 15:06 | XMS REPORT ---
Author Author JEFF BELTRÁN [facility] Address [address] [place] [address] Care Team Providers Care Piano Instructor Name Role Phone MARGIE BELTRÁNTA Unavailable PROBLEMS Type Condition ICD9-CM Code [id number] Code Onset Dates Condition Status SNOMED Code Problem Primary narcolepsy with cataplexy G47.411 Active 532083101 Problem Gastroesophageal reflux disease with esophagitis K21.0 Active 416174069 Problem Right carpal tunnel syndrome G56.01 Active 73211155 Problem Seasonal allergic rhinitis, unspecified trigger J30.2 Active 879963893 Problem Porokeratosis Q82.8 Active 749558885 Problem Obesity E66.9 Active 850867928 Problem Other chronic pain G89.29 Active 89662190 Problem Non-alcoholic fatty liver disease K76.0 Active 080417945 Problem Tarsal tunnel syndrome of left side G57.52 Active 04109853 Problem Nuclear cataract of both eyes H25.13 Active 43265939 Problem Presbyopia OU H52.4 Active 62925292 Problem Posterior subcapsular age-related cataract of both eyes H25.043 Active 2098536 Problem Type 2 diabetes mellitus with hyperglycemia E11.65 Active 20887862 Problem Lung nodule R91.1 Active 372334347 Problem Delayed gastric emptying K30 Active 229556476 Problem Obstructive sleep apnea G47.33 Active 58291395 Problem Hypermetropia, bilateral H52.03 Active 52724483 Problem Mixed hyperlipidemia E78.2 Active 094930118 ALLERGIES No Information ENCOUNTERS Encounter Location Date Diagnosis [facility] [id number], [place] [address] Apr, [facility] [address], [place] [address] 2901 Mar, [facility] [id number], [place] [address] 9663 Mar, [facility] [address], [place] [address] 8296 Mar, [facility] [id number] [place] [address] 55583- 1049 Mar, [facility] [id number] [place] [address] 89943- 6230 Feb, [facility] [id number] [place] [address] 83811- 2850 Feb, Type 2 diabetes mellitus with hyperglycemia E11.65 and Epigastric abdominal pain R10.13 [facility] [id number] [place] [address] 85402- 3210 Feb, [facility] [id number] [place] [address] 11359- 4098 Feb, [facility] [id number] [place] [address] 40731- 5163 Feb, [facility] [id number] [place] [address] 09961- 6784 Feb, Seasonal allergic rhinitis, unspecified trigger J30.2 [facility] [id number] [place] [address] 80477- 6787 Feb, Type 2 diabetes mellitus with hyperglycemia E11.65 [facility] [id number] [place] [address] 75027- 1434 Feb, Viral upper respiratory tract infection J06.9 and Encounter for immunization Z23 [facility] [id number] [place] [address] 02502- 1915 Feb, [facility] [id number] [place] [address] 33915- 7780 Jan, Type 2 diabetes mellitus with hyperglycemia E11.65 [facility] [address], [place] [address] 5426 Jan, Type 2 diabetes mellitus with hyperglycemia E11.65 [facility] [id number] [place] [address] 12617- 4360 Dec, Chest pain on breathing R07.1 [facility] [id number] [place] [address] 05216 -5294 Dec, Chest pain on breathing R07.1 [facility] [id number] [place] [address] 61458- 9943 Dec, Well woman exam Z01.419 ; Screening for breast cancer Z12.31 and Screening for colon cancer Z12.11 [facility] [id number] [place] [address] 28293- 5805 Dec, [facility] [id number] [place] [address] 45670- 9874 Dec, Type 2 diabetes mellitus with hyperglycemia E11.65 ; Mixed hyperlipidemia E78.2 and Gastroesophageal reflux disease with esophagitis K21.0 [facility] [id number] [place] [address] 31667- 7437 Nov, Type 2 diabetes mellitus with hyperglycemia E11.65 and Mixed hyperlipidemia E78.2 [facility] [id number] [place] [address] 68689- 5900 Nov, [facility] [id number] [place] [address] 42768- 6135 Oct, Back muscle spasm M62.830 and Bilateral low back pain without sciatica M54.5 [facility] [id number] [place] [address] 67900- 7687 Oct, [facility] [id number] [place] [address] 24670- 9358 September, [facility] [id number] [place] [address] 21316- 7069 September, Type 2 diabetes mellitus with hyperglycemia E11.65 [facility] [id number] [place] [address] 50647- 7688 September, Type 2 diabetes mellitus with hyperglycemia E11.65 [facility] [id number] [place] [address] 83717- 3679 September, Porokeratosis Q82.8 and Type 2 diabetes mellitus with diabetic polyneuropathy E11.42 [facility] [id number] [place] [address] 83844 -3232 Aug, Seasonal allergic rhinitis, unspecified trigger J30.2 [facility] [address] 26373- 3426 Aug, [facility] [address] 25074- 1152 Aug, Bilateral low back pain without sciatica M54.5 [facility] [address] [id number] Aug, Dental examination V72.2 and Dental examination Z01.20 [facility] [address] 09942- 4947 Aug, Dental examination Z01.20 and Dental caries K02.9 [facility] [address] 82185- 7141 Aug, Obstructive sleep apnea G47.33 ; Obesity E66.9 ; Type 2 diabetes mellitus with hyperglycemia E11.65 ; Palpitations R00.2 and Corns and callosities L84 [facility] [id number] [place] [address] 49862- 6423 Jul, [facility] [address] 17299- 4645 Jul, [facility] [id number] [place] [address] 51356- 0600 Jun, Type 2 diabetes mellitus with hyperglycemia E11.65 ; Colon cancer screening Z12.11 ; Mixed hyperlipidemia E78.2 ; Non-alcoholic fatty liver disease K76.0 ; Gastroesophageal reflux disease with esophagitis K21.0 and Pain of upper abdomen R10.10 [facility] [address] 57922- 4616 Jun, Falls frequently R29.6 [facility] [id number] [place] [address] 85219 -3222 May, Infection of nose J34.89 [facility] [id number] [place] [address] 58302- 5551 May, Bilateral low back pain without sciatica M54.5 [facility] [id number] [place] [address] 17848- 1623 May, Type 2 diabetes mellitus with diabetic polyneuropathy E11.42 ; Obstructive sleep apnea G47.33 and Type 2 diabetes mellitus with hyperglycemia E11.65 [facility] [id number] [place] [address] 19224- 2360 Apr, Bilateral low back pain without sciatica M54.5 [facility] [id number] [place] [address] 06835- 7025 Apr, Mixed hyperlipidemia E78.2 and Type 2 diabetes mellitus with hyperglycemia E11.65 [facility] [id number] [place] [address] 99524- 7158 Apr, Type 2 diabetes mellitus with diabetic polyneuropathy E11.42 [facility] [id number] [place] [address] 99091- 6934 Apr, [facility] [id number] [place] [address] 95576- 7105 Apr, Skin lesion of left arm L98.9 and Skin lesion of left leg L98.9 [facility] [id number] [place] [address] 30523- 2155 Mar, Bilateral low back pain without sciatica M54.5 [facility] [id number] [place] [address] 56923- 4203 Mar, Plantar fasciitis of left foot M72.2 ; Bursitis of left foot M71.572 and Type 2 diabetes mellitus with diabetic polyneuropathy E11.42 [facility] [id number] [place] [address] 01019- 8947 Feb, Non-alcoholic fatty liver disease K76.0 ; Keratoacanthoma L85.8 ; Seborrheic keratosis L82.1 ; Type 2 diabetes mellitus with hyperglycemia E11.65 and Nuclear cataract of both eyes H25.13 [facility] [id number] [place] [address] [id number] Feb, [facility] [address] 40580- 2987 Feb, [facility] [address] 38914- 3910 Feb, [facility] [address] 88219- 9363 Feb, Type 2 diabetes mellitus with hyperglycemia E11.65 ; Back muscle spasm M62.830 and Encounter for immunization Z23 [facility] [address] 40105- 8597 Jan, Plantar fasciitis of left foot M72.2 [facility] [address] 63244- 3869 Dec, [facility] [address] 51727- 0377 Dec, Plantar fasciitis of left foot M72.2 and Tarsal tunnel syndrome of left side G57.52 [facility] [address] 50307- 9958 Dec, [facility] [id number] [place] [address] 02402 -0276 Nov, Mary Jane rash of groin B37.89 and Rash and nonspecific skin eruption R21 [facility] [id number] [place] [address] 78393- 5355 Nov, [facility] [id number] [place] [address] 22288- 7513 Oct, Type 2 diabetes mellitus with hyperglycemia E11.65 and Mixed hyperlipidemia E78.2 [facility] [id number] [place] [address] 00022- 3124 Oct, [facility] [id number] [place] [address] 86844- 6857 Oct, Chest pain, unspecified R07.9 ; Palpitations R00.2 ; Syncope R55 and Mixed hyperlipidemia E78.2 [facility] [id number] [place] [address] 45795- 0735 Oct, Plantar fasciitis, bilateral M72.2 and Type 1 diabetes mellitus with diabetic neuropathy E10.40 [facility] [id number] [place] [address] 09070- 8561 Oct, [facility] [id number] [place] [address] 77291- 9986 September, Type 2 diabetes mellitus with hyperglycemia E11.65 [facility] [id number] [place] [address] 31849- 4571 September, Type 2 diabetes mellitus with hyperglycemia E11.65 ; Type 2 diabetes mellitus with diabetic polyneuropathy E11.42 ; Gastroesophageal reflux disease with esophagitis K21.0 and Headache, unspecified headache type R51 [facility] [id number] [place] [address] 74162- 7856 September, [facility] [id number] [place] [address] 31399- 0407 September, [facility] [id number] [place] [address] 52510- 8039 September, [facility] [id number] [place] [address] 17576- 1723 September, Other chest pain R07.89 ; Heart palpitations R00.2 ; Mixed hyperlipidemia E78.2 and Obesity E66.9 [facility] [id number] [place] [address] 72475- 4873 Aug, [facility] [address], [place] [address]- 6958 Aug, Type 2 diabetes mellitus with diabetic polyneuropathy E11.42 and Type 2 diabetes mellitus with hyperglycemia E11.65 [facility] [address], [place] [address]- 1594 Aug, [facility] [address], [place] [address]- 9482 Aug, [facility] [address], [place] [address]- 5364 Aug, [facility] [address], [place] [address]- 4231 Aug, Type 2 diabetes mellitus with hyperglycemia E11.65 [facility] [address], [place] [address]- 7116 Aug, [facility] [address], [place] [address]- 8793 Jul, Type 2 diabetes mellitus with diabetic polyneuropathy E11.42 [facility] [address], [place] [address]- 6281 Jul, Type 2 diabetes mellitus with hyperglycemia E11.65 [facility] [address], [place] [address]- 2512 Jul, [facility] [address], [place] [address]- 3797 Jul, [facility] [address], [place] [address]- 4502 Jul, [facility] [address], [place] [address]- 6561 Jul, Type 2 diabetes mellitus with diabetic polyneuropathy E11.42 and Type 2 diabetes mellitus with hyperglycemia E11.65 [facility] [id number], [place] [address]- 9266 Jun, Obstructive sleep apnea G47.33 [facility] [id number] [place] [address] 18509- 7602 Jun, Type 2 diabetes mellitus with diabetic polyneuropathy E11.42 ; Primary narcolepsy with cataplexy G47.411 ; Abdominal bloating R14.0 ; Other chest pain R07.89 and Vision problems H54.7 [facility] [id number] [place] [address] 22981- 7242 Jun, [facility] [address] 09653- 6018 May, [facility] [id number] [place] [address] 72320- 0271 Apr, [facility] [address] 49670- 0469 Apr, Plantar fasciitis of left foot M72.2 [facility] [address] 18841- 1149 Mar, [facility] [address] 68180- 2081 Mar, Plantar fasciitis of left foot M72.2 and Type 2 diabetes mellitus with diabetic polyneuropathy E11.42 [facility] [id number] [place] [address] 31000- 3869 Feb, Type 2 diabetes mellitus with hyperglycemia E11.65 ; Mixed hyperlipidemia E78.2 and Encounter for immunization Z23 [facility] [id number] [place] [address] 32001- 2764 Feb, [facility] [id number] [place] [address] 35619- 9377 Feb, [facility] [address] 55816- 3037 Feb, Type 2 diabetes mellitus with hyperglycemia E11.65 [facility] [id number] [place] [address] 34951- 6610 Feb, Type 2 diabetes mellitus with hyperglycemia E11.65 [facility] [address], [place] [address]- 4546 Jan, [facility] [id number] [place] [address] 22455- 5927 Dec, Pain in left foot M79.672 ; Other chronic pain G89.29 ; Type 2 diabetes mellitus with hyperglycemia E11.65 ; Obstructive sleep apnea G47.33 ; Falls frequently R29.6 ; Mixed hyperlipidemia E78.2 and Gastroesophageal reflux disease with esophagitis K21.0 [facility] [id number] [place] [address] 64488- 2549 Nov, [facility] [id number] [place] [address] 57475- 8497 Oct, Type 2 diabetes mellitus with diabetic polyneuropathy E11.42 [facility] [id number] [place] [address] 24483- 8456 Oct, [facility] [id number] [place] [address] 54277- 8965 Oct, [facility] [id number] [place] [address] 00760- 0015 September, [facility] [id number] [place] [address] 87078- 6021 September, [facility] [id number] [place] [address] 09413- 8013 September, [facility] [id number] [place] [address] 17721- 2630 September, [facility] [address], [place] [address]- 9348 September, [facility] [id number] [place] [address] 22844- 7198 Aug, Type 2 diabetes mellitus with hyperglycemia E11.65 ; Mixed hyperlipidemia E78.2 and Right carpal tunnel syndrome G56.01 [facility] [id number] [place] [address] 35512- 9408 Aug, [facility] [address], [place] [address]- 0758 Jul, [facility] [id number] [place] [address] 516859- 1264 Jun, [facility] [id number] [place] [address] 78097- 9881 Jun, [facility] [id number] [place] [address] 86846- 6025 May, [facility] [id number] [place] [address] 12657- 8874 May, [facility] [id number] [place] [address] 35183- 9130 May, Type 2 diabetes mellitus with hyperglycemia E11.65 and Falls E888.9 [facility] [id number] [place] [address] 92872- 4139 Apr, Type 2 diabetes mellitus with hyperglycemia E11.65 [facility] [id number] [place] [address] 09544- 5538 Apr, [facility] [id number] [place] [address] 45485- 3139 Apr, Type 2 diabetes mellitus with hyperglycemia E11.65 [facility] [id number] [place] [address] 02726- 5372 Apr, [facility] [id number] [place] [address] 74295- 4986 Mar, Type 2 diabetes mellitus with diabetic polyneuropathy E11.42 ; Bilateral low back pain without sciatica M54.5 and Dry nose J34.89 [facility] [id number] [place] [address] 03532- 6106 Mar, Palpitations R00.2 ; Syncope R55 ; DM (diabetes mellitus) E11.9 and Obesity E66.9 [facility] [id number] [address]- 3145 Mar, [facility] [address], [place] [address]- 2917 Mar, [facility] [address] 1754 Mar, [facility] [id number] [place] [address] 94121- 9938 Feb, [facility] [id number] [place] [address] 63876- 1583 Jan, [facility] [id number] [place] [address] 84898- 3060 Jan, [facility] [id number] [place] [address] 76218- 1020 Jan, Falls E888.9 and Sinusitis 473.9 [facility] [id number] [place] [address] 20551- 2721 Dec, [facility] [address], [place] [address]- 2764 Dec, [facility] [id number] [place] [address] 64884- 9801 Dec, [facility] [address], [place] [address]- 9491 Dec, [facility] [address], [place] [address]- 2117 Dec, Diabetes mellitus without mention of complication, type II or unspecified type, not stated as uncontrolled 250.00 and Shortness of breath 786.05 [facility] [address], [place] [address]- 1876 Dec, [facility] [address], [place] [address]- 3861 Nov, [facility] [address], [place] [address]- 2611 Nov, [facility] [id number] [place] [address] 27443- 6564 Oct, Restrictive lung disease 518.89 [facility] [id number] [place] [address] 234053- 6621 Oct, [facility] [id number] [place] [address] 32685- 5245 Oct, Shortness of breath 786.05 [facility] [id number] [place] [address] 85145- 6817 September, Other nonspecific abnormal finding of lung field 793.19 ; Diabetes mellitus without mention of complication, type II or unspecified type, not stated as uncontrolled 250.00 ; Hyperlipidemia LDL goal < 100 272.4 ; Narcolepsy, with cataplexy 347.01 ; Shortness of breath 786.05 and Chest pain 786.50 [facility] [id number] [place] [address] 53682- 2162 Aug, [facility] [id number] [place] [address] 35399- 4389 Aug, [facility] [id number] [place] [address] 12274- 2221 Jun, [facility] [id number] [place] [address] 90657- 6875 Jun, [facility] [id number] [place] [address] 91165- 8084 Jun, [facility] [id number] [place] [address] 12084- 0131 Jun, [facility] [id number] [place] [address] 55916- 5441 Jun, [facility] [id number] [place] [address] 91239- 5686 Jun, [facility] [id number] [place] [address] [id number] 9068 Jun, [facility] [place] [facility] [address] [id number] [place] [address] Jun, [facility] [place] [facility] [address] [id number] [place] [address] May, [facility] [place] [facility] [address] [id number] [place] [address] May, [facility] [place] [facility] [address] [id number] [place] [address] Apr, [facility] [place] [facility] [address] [id number] [place] [address] Apr, [facility] [place] [facility] [address] [id number] [place] [address] Mar, [facility] [place] [facility] [address] [id number] [place] [address] Mar, [facility] [place] [facility] [address] [id number] [place] [address] Mar, [facility] [place] [facility] [address] [id number] [place] [address] Mar, [facility] [place] [facility] [address] [id number] [place] [address] Nov, [facility] [place] [facility] [address] [id number] [place] [address] Nov, [facility] [place] [facility] [address] [id number] [place] [address] Nov, [facility] [place] [facility] [address] [id number] [place] [address] Nov, [facility] [place] [facility] [address] [id number] [place] [address] Oct, [facility] [place] [facility] [address] [id number] [place] [address] Oct, [facility] [place] [facility] [address] [id number] [place] [address] 24 Oct, 2013 [facility] [place] [facility] [address] [id number] [place] [address] Oct, [facility] [place] [facility] [address] [id number] [place] [address] Oct, [facility] [place] [facility] [address] [id number] [place] [address] Oct, [facility] [place] [facility] [address] [id number] [place] [address] Oct, [facility] [place] [facility] [address] [id number] [place] [address] Oct, [facility] [place] [facility] [address] [id number] [place] [address] Oct, [facility] [place] [facility] [address] [id number] [place] [address] Oct, [facility] [place] [facility] [address] [id number] [place] [address] September, [facility] [place] [facility] [address] [id number] [place] [address] September, [facility] [place] [facility] [address] [id number] [place] [address] Aug, [facility] [place] [facility] [address] [id number] [place] [address] Aug, [facility] [place] [facility] [address] [id number] [place] [address] Aug, [facility] [place] [facility] [address] [id number] [place] [address] Aug, [facility] [place] [facility] [address] [id number] [place] [address] Aug, [facility] [place] [facility] [address] [id number] [place] [address] Aug, [facility] [place] [facility] [address] [id number] [place] [address] Jul, [facility] [place] [facility] [address] [id number] [place] [address] Jul, [facility] [place] [facility] [address] [id number] [place] [address] Jul, [facility] [place] [facility] [address] [id number] [place] [address] Jul, [facility] [place] [facility] [address] [id number] [place] [address] Jul, [facility] [place] [facility] [address] [id number] [place] [address] Jul, [facility] [place] [facility] [address] [id number] [place] [address] Jul, [facility] [place] [facility] [address] [id number] [place] [address] Jul, [facility] [place] [facility] [address] [id number] [place] [address] Jul, [facility] [place] [facility] [address] [id number] [place] [address] Jul, [facility] [place] [facility] [address] [id number] [place] [address] Jul, [facility] [place] [facility] [address] [id number] [place] [address] 19 Jul, 2013 [facility] [place] [facility] [address] [id number] [place] [address] 19 Jul, 2013 [facility] [place] [facility] [address] [id number] [place] [address] 14 Jul, 2013 [facility] [place] [facility] [address] [id number] [place] [address] 14 Jul, 2013 [facility] [place] [facility] [address] [id number] [place] [address] Jul, [facility] [place] [facility] [address] [id number] [place] [address] Jun, [facility] [place] [facility] [address] [facility] [id number] [place] [address] Jun, [facility] [place] [facility] [address] [facility] [id number] [place] [address] Jun, [facility] [place] [facility] [address] [id number] [place] [address] Jun, [facility] [place] [facility] [address] [facility] [id number] [place] [address] Jun, [facility] [place] [facility] [address] [facility] [id number] [place] [address] Jun, [facility] [place] [facility] [address] [id number] [place] [address] Jun, [facility] [place] [facility] [address] [facility] [id number] [place] [address] Jun, [facility] [place] [facility] [address] [id number] [place] [address] Jun, [facility] [place] [facility] [address] [id number] [place] [address] Jun, [facility] [place] [facility] [address] [facility] [id number] [place] [address] Jun, [facility] [place] [facility] [address] [facility] [id number] [place] [address] Jun, [facility] [place] [facility] [address] [facility] [id number] [place] [address] 14 Jun, 2013 [facility] [place] [facility] [address] [facility] [id number] [place] [address] 39[address] 13 Jun, 2013 [facility] [place] [facility] [id number] [place] [address] 13 Jun, 2013 [facility] [place] [facility] [address] [id number] [place] [address] 13 Jun, 2013 [facility] [place] [facility] [address] [id number] [place] [address]- 8036 13 Jun, 2013 [facility] [place] [facility] [address] [facility] [id number] [place] [address] 38[address] 12 Jun, 2013 [facility] [place] [facility] [address] [id number] [place] [address]- [address] 12 Jun, 2013 [facility] [place] [facility] [address] [id number] [place] [address] Jun, 2013 [facility] [place] [facility] [address] [id number] [place] [address]- 35[address] Jun, 2013 [facility] [place] [facility] [address] [facility] [id number] [place] [address]- 68[address] 10 Jun, 2013 [facility] [place] [facility] [address] [id number] [place] [address]- [address] 07 Jun, 2013 [facility] [place] [facility] [address] [facility] [id number] [place] [address]- [address] 07 Jun, 2013 [facility] [place] [facility] [address] [facility] [id number] [place] [address] 1006 06 Jun, 2013 [facility] [place] [facility] [address] [facility] [id number] [place] [address]- 2542 Jun, 2013 [facility] [place] [facility] [address] [facility] [id number] [place] [address]40 Jun, 2013 [facility] [place] [facility] [address] [id number] [place] [address]- [address]197 Jun, 2013 [facility] [place] [facility] [address] [facility] [id number] [place] [address]- 2687 Jun, 2013 [facility] [place] [facility] [address] [facility] [id number] [place] [address]- 6658 Jun, [facility] [place] [facility] [address] [id number] [place] [address] 93[address] May, [facility] [place] [facility] [address] [id number] [place] [address]- 3687 May, [facility] [place] [facility] [address] [id number] [place] [address]- 9697 May, [facility] [place] [facility] [address] [id number] [place] [address] 67[address] May, [facility] [place] [facility] [address] [id number] [place] [address]- 4768 May, [facility] [place] [facility] [address] [id number] [place] [address]- 3465 May, [facility] [place] [facility] [address] [id number] [place] [address]- 2484 May, [facility] [place] [facility] [address] [id number] [place] [address]- 7999 May, [facility] [place] [facility] [address] [id number] [place] [address]- 7[address] May, [facility] [place] [facility] [address] [id number] [place] [address]- 9338 May, [facility] [place] [facility] [address] [id number] [address] May, [facility] [place] [facility] [address] [id number][place] [address]99 May, [facility] [place] [facility] [address] [id number] [place] [address]- 5110 May, [facility] [place] [facility] [address] [id number] [place] [address]- 0208 May, [facility] [place] [facility] [address] [id number] [place] [address]- 2395 May, [facility] [place] [facility] [address] [facility] [id number], [place] [address] Apr, [facility] [id number], [place] [address] Apr, [facility] [address] [id number] [address] Dec, [facility] [id number] [address] Nov, [facility] [id number], [place] [address] May, [facility] [id number], [place] [address] Apr, [facility] [id number], [place] [address] Apr, [facility] [id number] [address] Apr, [facility] [address] [id number] [address] Apr, IMMUNIZATIONS No Known Immunizations SOCIAL HISTORY [...] Surgical History hysterectomy, partial Hospitalization History Chest pain-[facility] 02/27/17 Hospitalization History [facility] 03/08/18
[2018-04-18] MEDS ORDERED: FAMOTIDINE 20 MG (PEPCID) TABLET PO STA (15:22)
--- NOTE | 2018-04-18 15:26 | ED Chest Pain ---
General Stated Complaint: CP Source: patient, EMS Exam Limitations: no limitations History of Present Illness Date Seen by Provider: Apr 18, 2018 Time Seen by Provider: 14:53 Initial Comments The patient presents to the ER by EMS with chief complaint that she had some chest pain and pressure without nausea this started up last night came and went and then again this morning so she decided to go to the clinic at [facility] to be checked out. They obtained an EKG gave her 2 nitroglycerin which made her pain better and 324 mg of baby aspirin to chew and swallow. The called ahead and said that they saw some ST depression on the EKG. EMS picked the patient up and ran a 12-lead did not see anything on their EKG. Patient states her pain is mostly resolved with the nitroglycerin was starting to come back. She says is also in her epigastric region does not radiate. She has no personal history of coronary artery disease. She does have a history of COPD and has been using her breathing treatments more than usual. She's had a dry cough more than usual. Her pain is reproducible to direct palpation of the chest per EMS. She does not smoke but her does. Her mother had early onset coronary artery disease in her early 50s. She does have diabetes and uses 65 units of Levemir twice a day as well as 45 units of NovoLog 3 times a day. Allergies and Home Medications Allergies Coded Allergies: Penicillins (Verified Allergy, Severe, SWELLING IN THROAT, 12/01/17) Home Medications Albuterol Sulfate 6.7 Gm Hfa.aer.ad, 2 PUFF IH Q4H PRN for SHORTNESS OF BREATH, (Reported) Azithromycin 250 Mg Tablet, 250 MG PO UD TAKE 2 TABLETS TODAY, THEN TAKE 1 TABLET DAILY FOR 4 MORE DAYS Prescribed by: MAYELIN MONTALVO on 12/01/172030 Famotidine 20 Mg Tablet, 20 MG PO BID Prescribed by: ADALGISA MARTINEZ on 02/28/17 1541 Gabapentin 300 Mg Capsule, 600 MG PO TID, (Reported) TAKES 2 (300MG) CAPSULES Insulin Aspart 300 Units/3 Ml Solution, 25 UNITS SQ TIDWM, (Reported) Insulin Detemir 100 Unit/1 Ml Insuln.pen, 50 UNITS PO BID, (Reported) Methylprednisolone 4 Mg Tab.ds.pk, 4 MG PO UD Prescribed by: MAYELIN MONTALVO on 12/01/172030 Pravastatin Sodium 40 Mg Tablet, 40 MG PO HS, (Reported) Sucralfate 1 Gm Tablet, 1 GM PO BID Prescribed by: ADALGISA MARTINEZ on 02/28/17 1541 Patient Home Medication List Home Medication List Reviewed: Yes Review of Systems Review of Systems Constitutional: No chills, No diaphoresis, No fever EENTM: No Blurred Vision, No Double Vision Respiratory: Denies Cough, Denies Shortness of Air Cardiovascular: See HPI, Chest Pain; Denies Edema, Denies Lightheadedness, Denies Palpitations, Denies Syncope Gastrointestinal: Denies Abdomen Distended; Abdominal Pain (epigastric); Denies Constipated, Denies Diarrhea, Denies Nausea Genitourinary: Denies Burning, Denies Discharge Musculoskeletal: No back pain, No joint pain Skin: No pruritus, No rash Past Demhurp-Lhbuco-Edidjb Hx Patient Social History Alcohol Use: Denies Use Recreational Drug Use: No Smoking Status: Never a Smoker 2nd Hand Smoke Exposure: Yes Recent Foreign Travel: No Contact w/Someone Who Travel: No Recent Hopitalizations: No Immunizations Up To Date Tetanus Booster (TDap): Unknown PED Vaccines UTD: No Date of Pneumonia Vaccine: Feb 19, 2017 Date of Influenza Vaccine: Feb 19, 2017 Seasonal Allergies Seasonal Allergies: No Past Medical History Surgeries: Yes Cardiac, Hysterectomy Respiratory: Yes Asthma, Sleep Apnea Currently Using CPAP: Yes Cardiac: Yes High Cholesterol Neurological: Yes Headaches /Migraines, Neuropathy Reproductive Disorders: No LO[employer] EXP[employer]OR History: Hysterectomy Genitourinary: Yes (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) Renal Failure Gastrointestinal: Yes Gastroesophageal Reflux Musculoskeletal: Yes Arthritis Endocrine: Yes Diabetes, Insulin dep HEENT: No Loss of Vision: Denies Hearing Impairment: Denies Cancer: No Psychosocial: Yes (NARCOLEPSY) Integumentary: No Blood Disorders: No Adverse Reaction/Blood Tranf: No Family Medical History Alcoholism 03 FATHER, Onset:Unknown 09 SISTER, Onset:Unknown Bone cancer 09 BROTHER Cancer 09 BROTHER, Onset:30's - 40 Cardiovascular disease 03 FATHER 03 MOTHER Chest pain 03 FATHER, Onset:60 years & older 03 MOTHER, Onset:60 years & older Diabetes mellitus 09 SISTER Family history: Cardiovascular disease 03 FATHER, Onset:Unknown 03 MOTHER, Onset:Unknown 09 BROTHER, Onset:Unknown Family history: Diabetes mellitus 03 FATHER 03 MOTHER, Onset:Unknown 09 BROTHER, Onset:Unknown Heart disease 03 MOTHER, Onset:Unknown 09 BROTHER, Onset:Unknown Seizure disorder 09 BROTHER, Onset:Unknown 09 SISTER, Onset:Unknown Stroke 09 SISTER No Family History of: Abdominal aortic aneurysm Delton's disease Aphasia Cancer of colon Cataract Congenital heart disease Congestive heart failure Cystic fibrosis Dementia Family history: Allergy Family history: Alzheimer's disease Family history: Arthritis Family history: Asthma Family history: Breast disease Family history: Coronary thrombosis Family history: Gastrointestinal disease Family history: Glaucoma Family history: Hypertension Family history: Osteoporosis Family history: Thyroid disorder Headache Hearing loss Hereditary disease History of - anemia History of - disorder History of - respiratory disease History of drug abuse Human immunodeficiency virus (HIV) seropositivity Hypercholesterolemia Infertile Kidney disease Malignant neoplasm of lung Myocardial infarction Parkinson's disease Prostate cancer Psychotic disorder Tuberculosis Visual impairment Heart Disease, Seizures Physical Exam Vital Signs Vital Signs - First Documented 04/18/18 14:58 Temp 98.7 Pulse 89 Resp 17 B/P (MAP) 139/67 (91) Pulse Ox 95 O2 Delivery Room Air Capillary Refill : Height, Weight, BMI Height: 5'4.00" Weight: 200lbs. 4.8oz. 90.497935dp; 31.7 BMI Method:Stated General Appearance: No Apparent Distress, Anxious HEENT: PERRL/EOMI, Pharynx Normal, Moist Mucous Membranes Neck: Full Range of Motion, Normal Inspection Respiratory: Lungs Clear, Normal Breath Sounds, No Accessory Muscle Use, No Respiratory Distress, Other (chest pain is reproduced by direct palpation or deep inspiration) Cardiovascular: Regular Rate, Rhythm, No Edema, No Murmur, Normal Peripheral Pulses Gastrointestinal: Normal Bowel Sounds, No Organomegaly, Soft, Tenderness (mild midepigastric tenderness to palpation) Extremity: Normal Capillary Refill, No Pedal Edema Neurologic/Psychiatric: Alert, Oriented x3 Skin: Normal Color, Warm/Dry Progress/Results/Core Measures Results/Orders Lab Results Laboratory Tests Test 04/18/18 15:10 04/18/18 16:08 04/18/18 18:27 Range/Units White Blood Count 8.0 4.3-11.0 10^3/uL Red Blood Count 4.61 4.35-5.85 10^6/uL Hemoglobin 13.2 11.5-16.0 G/DL Hematocrit 40 35-52 % Mean Corpuscular Volume 87 80-99 FL Mean Corpuscular Hemoglobin 29 25-34 PG Mean Corpuscular Hemoglobin Concent 33 32-36 G/DL Red Cell Distribution Width 13.6 10.0-14.5 % Platelet Count 214 130-400 10^3/uL Mean Platelet Volume 11.2 H 7.4-10.4 FL Neutrophils (%) (Auto) 62 42-75 % Lymphocytes (%) (Auto) 28 12-44 % Monocytes (%) (Auto) 8 0-12 % Eosinophils (%) (Auto) 2 0-10 % Basophils (%) (Auto) 1 0-10 % Neutrophils # (Auto) 5.0 1.8-7.8 X 10^3 Lymphocytes # (Auto) 2.2 1.0-4.0 X 10^3 Monocytes # (Auto) 0.7 0.0-1.0 X 10^3 Eosinophils # (Auto) 0.1 0.0-0.3 10^3/uL Basophils # (Auto) 0.0 0.0-0.1 10^3/uL Prothrombin Time 13.1 12.2-14.7 SEC INR Comment 1.0 0.8-1.4 Activated Partial Thromboplast Time 30 24-35 SEC Sodium Level 137 135-145 MMOL/L Potassium Level 4.5 3.6-5.0 MMOL/L Chloride Level 101 98-107 MMOL/L Carbon Dioxide Level 27 21-32 MMOL/L Anion Gap 9 5-14 MMOL/L Blood Urea Nitrogen 21 H 7-18 MG/DL Creatinine 0.83 0.60-1.30 MG/DL Estimat Glomerular Filtration Rate > 60 BUN/Creatinine Ratio 25 Glucose Level 278 H 70-105 MG/DL Calcium Level 9.3 8.5-10.1 MG/DL Corrected Calcium 9.4 8.5-10.1 MG/DL Magnesium Level 2.1 1.8-2.4 MG/DL Total Bilirubin 0.6 0.1-1.0 MG/DL Aspartate Amino Transf (AST/SGOT) 12 5-34 U/L Alanine Aminotransferase (ALT/SGPT) 19 0-55 U/L Alkaline Phosphatase 102 40-136 U/L Myoglobin 21.9 10.0-92.0 NG/ML Troponin I < 0.30 < 0.30 <0.30 NG/ML B-Type Natriuretic Peptide < 10.0 <100.0 PG/ML Total Protein 6.7 6.4-8.2 GM/DL Albumin 3.9 3.2-4.5 GM/DL Lipase 16 8-78 U/L Glucometer 279 H 70-110 MG/DL My Orders Orders - ABDELRAHMAN MCDONALD Cbc With Automated Diff (04/18/18 15:22) Magnesium (04/18/18 15:22) Chest 1 View, Ap/Pa Only (04/18/18:) Ekg Tracing (04/18/18) Cardiac Profile 1 (04/18/18:) Comprehensive Metabolic Panel (04/18/18:) Myoglobin Serum (04/18/18:) Protime With Inr (04/18/18:) Partial Thromboplastin Time (04/18/18:) O2 (04/18/18:) Monitor-Rhythm Ecg Trace Only (04/18/18:) Lipid Panel (04/19/18 06:00) Nitroglycerin 0.4 Mg Btl 25's (Nitrostat (04/18/18 15:30) Saline Lock/Iv-Start (04/18/18 15:22) Lipase (04/18/18:) BNP (04/18/18:) Lidocaine 2% Viscous 15 Ml (Xylocaine Vi (04/18/18 15:30) Famotidine Tablet (Pepcid Tablet) (04/18/18 15:22) Antacid Suspension (Mylanta Suspension (04/18/18 15:30) Troponin I (04/18/18 19:00) Medications Given in ED Current Medications Medications Dose Ordered Sig/Arleth Route Start Time Stop Time Status Last Admin Dose Admin Al Hydrox/Mg Hydrox/Simethicone 30 ml ONCE ONCE PO 04/18/18 15:30 04/18/18 15:31 DC 04/18/18 15:42 30 ML Lidocaine HCl 15 ml ONCE ONCE PO 04/18/18 15:30 04/18/18 15:31 DC 04/18/18 15:42 15 ML Vital Signs/I&O 04/18/18 14:58 Temp 98.7 Pulse 89 Resp 17 B/P (MAP) 139/67 (91) Pulse Ox 95 O2 Delivery Room Air Progress Progress Note : Time: 16:01 Progress Note ED ACS is negative to points because the pain is reproducible on deep inspiration and chest palpation. She does have loss of risk factors however so plan to do a four-hour rule out. Initial ECG Impression Date: Apr 18, 2018 Initial ECG Impression Time: 15:02 Initial ECG Rate: 86 Initial ECG Rhythm: Normal Sinus Initial ECG Intervals: Normal Initial ECG Impression: Normal Comment No ST elevation or depression Diagnostic Imaging Diagonstic Imaging: Xray Plain Films/CT/US/NM/MRI: chest (1v) Comments [facility] [place] [place] NAME: JAVI MENDOZA [facility] REC#: [id number] PT STATUS: REG ER : 1960 PHYSICIAN: ABDELRAHMAN MCDONALD MD ADMIT DATE: 04/18/18/ER Draft Date of Exam:04/18/18 CHEST 1 VIEW, AP/PA ONLY EXAMINATION: Portable erect AP chest at 03:54 p.m. INDICATION: Left-sided chest pain. FINDINGS: The heart size is within normal limits and stable when compared to 03/09/2018. The lungs are clear. There is still no sign of failure, pneumonia, or pleural effusion. The mediastinum is not widened. The osseous structures are intact. IMPRESSION: Stable chest. There has been no adverse change since the prior exam. There is no acute abnormality noted. Dictated on workstation # [id number] Dict: 04/18/18 1605 Trans: 04/18/18 1614 [id number] Interpreted by: ANN GRANDA MD Electronically signed by: Reviewed: Reviewed by Me Consults : Consulting Physician: CHRISTIANO GARBER MD FACP FAC CCDS Consults Notes Discussed case lab EKG imaging with Dr. Garber, cardiology and since the pains been going on since yesterday technically we've ruled her out with a single troponin but he did recommend a 4 hour rule out and if it still negative follow- up in the clinic Saturday. Departure Impression Primary Impression: Chest pain Qualified Codes: R07.9 - Chest pain, unspecified Disposition: 01 HOME, SELF-CARE Condition: Stable Departure-Patient Inst. Decision time for Depature: 19:17 Referrals: [facility] (PCP/Family) Primary Care Physician CHRISTIANO GARBER MD [facility] Patient Instructions: Chest Pain (DC) Add. Discharge Instructions: Please plan to follow up with Dr. Garber, cardiology in his office Saturday morning by calling at 8:00 AM and requesting an appointment. Please plan to follow up with your primary care provider as well. If your symptoms return with severe chest pain he should return to the ER for further evaluation over the weekend. Copy Copies To 1: CHRISTIANO GARBER MD [facility] ABDELRAHMAN MCDONALD Apr 18, 2018 15:26
[2018-04-18 15:29] LABS: BASOPHILS % (AUTO) 1 % (0-10); EOSINOPHILS # (AUTO) 0.1 10^3/uL (0.0-0.3); EOSINOPHILS % (AUTO) 2 % (0-10); HEMATOCRIT 40 % (35-52); HEMOGLOBIN 13.2 G/DL (11.5-16.0); LYMPHOCYTES # (AUTO) 2.2 X 10^3 (1.0-4.0); LYMPHOCYTES % (AUTO) 28 % (12-44); MEAN CORPUSCULAR HEMOGLOBIN 29 PG (25-34); MEAN CORPUSCULAR HGB CONC 33 G/DL (32-36); MEAN CORPUSCULAR VOLUME 87 FL (80-99); MEAN PLATELET VOLUME 11.2 FL (7.4-10.4); MONOCYTES # (AUTO) 0.7 X 10^3 (0.0-1.0); MONOCYTES % (AUTO) 8 % (0-12); NEUTROPHILS % (AUTO) 62 % (42-75); PLATELET COUNT 214 10^3/uL (130-400); RED BLOOD COUNT 4.61 10^6/uL (4.35-5.85); RED CELL DISTRIBUTION WIDTH 13.6 % (10.0-14.5)
[2018-04-18] MEDS ORDERED: NITROGLYCERIN 0.4 MG SL TABS BTL 25'S SL PRN (15:30)
[2018-04-18] MEDS ORDERED: LIDOCAINE 2% VISCOUS 15 ML UDC PO ONE (15:30)
[2018-04-18] MEDS ORDERED: ANTACID SUSP 30 ML UDC (MYLANTA) PO ONE (15:30)
--- OUTSIDE RECORDS SUMMARY | 2018-04-18 15:36 | XMS REPORT | Continuity of Care Document ---
Author Author Formerly [facility] Address Unknown Phone Unavailable Allergies Active Description Code Type Severity Reaction Onset Reported/Identified Relationship to Patient Clinical Status Yes erythromycin Drug Allergy N/ A N/A 10/01/2008 Yes Penicillins Drug Allergy N/A N/A 10/01/2008 Yes erythromycin Drug Allergy 10/01/2008 Yes Penicillins Drug Allergy 10/01/2008 Yes Penicillins [id number] Drug Allergy Severe SWELLING IN THR 12/01/2017 Medications There is no data. Problems Date Dx Coded Attending Type Code Diagnosis Diagnosed By 12/11/2007 RONEY GALVEZ APRN 053.9 HERPES ZOSTER NOS 12/11/2007 RONEY GALVEZ APRN V72.31 FOOTWEAR SALES COORDINATOR EXAM, ROUTINE 12/11/2007 QUINTEN GILLIAM MD 053.9 HERPES ZOSTER NOS 12/11/2007 QUINTEN GILLIAM MD V72.31 FOOTWEAR SALES COORDINATOR EXAM, ROUTINE 12/11/2007 DAGO CRUZ MD 053.9 HERPES ZOSTER NOS 12/11/2007 DAGO CRUZ MD V72.31 FOOTWEAR SALES COORDINATOR EXAM, ROUTINE 12/11/2007 ROSALINDA BRUNO APRN 053.9 HERPES ZOSTER NOS 12/11/2007 ROSALINDA BRUNO APRN V72.31 FOOTWEAR SALES COORDINATOR EXAM, ROUTINE 12/11/2007 QUINTEN GILLIAM MD 053.9 HERPES ZOSTER NOS 12/11/2007 QUINTEN GILLIAM MD V72.31 FOOTWEAR SALES COORDINATOR EXAM, ROUTINE 12/11/2007 RAMY MANRIQUE DO 053.9 HERPES ZOSTER NOS 12/11/2007 RAMY MANRIQUE DO V72.31 FOOTWEAR SALES COORDINATOR EXAM, ROUTINE 12/11/2007 QUINTEN GILLIAM MD 053.9 HERPES ZOSTER NOS 12/11/2007 QUINTEN GILLIAM MD V72.31 FOOTWEAR SALES COORDINATOR EXAM, ROUTINE 12/11/2007 QUINTEN GILLIAM MD 053.9 HERPES ZOSTER NOS 12/11/2007 QUINTEN GILLIAM MD V72.31 FOOTWEAR SALES COORDINATOR EXAM, ROUTINE 12/11/2007 RODRIGUES DDS, DARRYN 053.9 HERPES ZOSTER NOS 12/11/2007 RODRIGUES DDS, DARRYN V72.31 FOOTWEAR SALES COORDINATOR EXAM, ROUTINE 12/11/2007 ABBEY YIN, SHERON R 053.9 HERPES ZOSTER NOS 12/11/2007 ABBEY YIN, SHERON Curran V72.31 FOOTWEAR SALES COORDINATOR EXAM, ROUTINE 12/11/2007 QUINETN GILLIAM MD 053.9 HERPES ZOSTER NOS 12/11/2007 QUINTEN GILLIAM MD V72.31 FOOTWEAR SALES COORDINATOR EXAM, ROUTINE 12/11/2007 RODRIGUES DDS, DARRYN 053.9 HERPES ZOSTER NOS 12/11/2007 RODRIGUES DDS, DARRYN V72.31 FOOTWEAR SALES COORDINATOR EXAM, ROUTINE 12/11/2007 QUINTEN GILLIAM MD 053.9 HERPES ZOSTER NOS 12/11/2007 QUINTEN GILLIAM MD V72.31 FOOTWEAR SALES COORDINATOR EXAM, ROUTINE 10/01/2008 RONEY GALVEZ APRN R 465.9 ACUTE UPPER RESPIRATORY INFECTIONS OF UNSPECIFIED SITE 10/01/2008 RONEY GALVEZ APRN R 493.90 ASTHMA UNSPECIFIED 10/01/2008 QUINTEN GILLIAM MD 465.9 ACUTE UPPER RESPIRATORY INFECTIONS OF UNSPECIFIED SITE 10/01/2008 QUINTEN GILLIAM MD 493.90 ASTHMA UNSPECIFIED 10/01/2008 DAGO CRUZ MD 465.9 ACUTE UPPER RESPIRATORY INFECTIONS OF UNSPECIFIED SITE 10/01/2008 DAGO CRUZ MD 493.90 ASTHMA UNSPECIFIED 10/01/2008 ROSAILNDA BRUNO APRN 465.9 ACUTE UPPER RESPIRATORY INFECTIONS [...] GILLIAM MD 782.1 RASH 07/26/2013 GOMEZ BROWNING ORTHOPEDIC PHYSICIAN ASSISTANT Ot 590.80 PYELONEPHRITIS NOS 07/26/2013 GOMEZ BROWNING [...] JIMENEZ MD Ot R00.2 PALPITATIONS 07/13/2016 ARIANA JIMEENZ MD Ot R55 SYNCOPE AND COLLAPSE 07/15/2016 [...] CAFE PLACE 01/19/2017 LINDSAY FRASER Ot Z79.4 [facility] (CURRENT) USE OF INSULIN 01/19/2017 LINDSAY FRASER [...] CAFE PLACE 01/21/2017 LINDSAY FRASER Ot Z79.4 [facility] (CURRENT) USE OF INSULIN 01/21/2017 LINDSAY FRASER [...] MD Ot I25.10 ATHSCL HEART DISEASE OF [place] CORONARY 02/28/2017 ADALGISA MARTINEZ MD Ot J45.909 UNSPECIFIED ASTHMA, UNCOMPLICATED 02/28/2017 ADALGISA MARTINEZ MD Ot K21.9 GASTRO-ESOPHAGEAL REFLUX DISEASE WITHOUT 02/28/2017 ADALGISA MARTINEZ MD Ot R06.01 ORTHOPNEA 02/28/2017 ADALGISA MARTINEZ MD Ot R10.11 RIGHT UPPER QUADRANT PAIN 02/28/2017 ADALGISA MARTINEZ MD Ot Z79.4 [facility] (CURRENT) USE OF INSULIN 02/28/2017 ADALGISA MARTINEZ MD Ot Z79.899 OTHER [facility] (CURRENT) DRUG THERAPY 07/24/2017 DELMA EVANS DO [...] TOBACCO SMO 12/01/2017 KIESHA MONTALVOIS Ot Z79.4 [facility] (CURRENT) USE OF INSULIN 12/01/2017 KIESHA MONTALVOIS Ot Z79.51 [facility] (CURRENT) USE OF INHALED STERO 12/01/2017 KIESHA [...] 12/03/2017 BERNMAYELIN AGRAWAL Ot R05 COUGH 12/03/2017 BERNKIESHA AGRAWALIS Ot Z77.22 CNTCT W AND EXPSR TO ENVIRON TOBACCO SMO 12/03/2017 LUISAKIESHA AGRAWALIS Ot Z79.4 ELECTRICITY TRADER (CURRENT) USE OF INSULIN 12/03/2017 KIESHA MONTALVOIS Ot Z79.51 [facility] (CURRENT) USE OF INHALED STERO 12/03/2017 KATIA MAYELIN Ot Z80.8 FAMILY HISTORY OF MALIGNANT NEOPLASM OF 12/03/2017 BERNTANJA MAYELIN Ot Z82.49 FAMILY HX OF ISCHEM HEART DIS AND OTH DI 12/03/2017 BERNKIESHA AGRAWALIS Ot Z88.0 ALLERGY STATUS TO PENICILLIN 12/03/2017 BERNKIESHA AGRAWALIS Ot Z90.710 ACQUIRED ABSENCE OF BOTH CERVIX AND UTER 03/09/2018 KIYA DO, LEONARDO K Ot E11.9 TYPE 2 DIABETES MELLITUS WITHOUT COMPLIC 03/09/2018 KIYA DO, LEONARDO K Ot E78.00 PURE HYPERCHOLESTEROLEMIA, UNSPECIFIED 03/09/2018 KIYA DO, LEONARDO K Ot G43.909 MIGRAINE, UNSP, NOT INTRACTABLE, WITHOUT 03/09/2018 KIYA DO, LEONARDO K Ot G47.30 SLEEP APNEA, UNSPECIFIED 03/09/2018 KIYA DO, LEONARDO K Ot J45.909 UNSPECIFIED ASTHMA, UNCOMPLICATED 03/09/2018 KIYA DO, LEONARDO K Ot K21.9 GASTRO-ESOPHAGEAL REFLUX DISEASE WITHOUT 03/09/2018 KIYA DO, LEONARDO K Ot R07.89 OTHER CHEST PAIN 03/09/2018 KIYA DO, LEONARDO K Ot Z77.22 CNTCT W AND EXPSR TO ENVIRON TOBACCO SMO 03/09/2018 KIYA DO, LEONARDO K Ot Z79.4 [facility] (CURRENT) USE OF INSULIN 03/09/2018 KIYA DO, LEONARDO K Ot Z79.51 ELECTRICITY TRADER (CURRENT) USE OF INHALED STERO 03/09/2018 KIYA DO, LEONARDO K Ot Z79.52 [facility] (CURRENT) USE OF SYSTEMIC STER 03/09/2018 KIYA DO, LEONARDO K Ot Z80.8 FAMILY HISTORY OF MALIGNANT NEOPLASM OF 03/09/2018 KIYA DO, LEONARDO K Ot Z82.49 FAMILY HX OF ISCHEM HEART DIS AND OTH DI 03/09/2018 KIYA DO, LEONARDO K Ot Z88.0 ALLERGY STATUS TO PENICILLIN 03/09/2018 SANJANA HUERTAS DOA K Ot Z90.710 ACQUIRED ABSENCE OF BOTH CERVIX AND UTER 03/11/2018 LEONARDO HUERTAS DO Ot E11.9 TYPE 2 DIABETES MELLITUS WITHOUT COMPLIC 03/11/2018 LEONARDO HUERTAS DO Ot E78.00 PURE HYPERCHOLESTEROLEMIA, UNSPECIFIED 03/11/2018 LEONARDO HUERTAS DO K Ot G43.909 MIGRAINE, UNSP, NOT INTRACTABLE, WITHOUT 03/11/2018 SANJANA HUERTAS DOA K Ot G47.30 SLEEP APNEA, UNSPECIFIED 03/11/2018 SANJANA HUERTAS DOA Lakeshia Ot J45.909 UNSPECIFIED ASTHMA, UNCOMPLICATED 03/11/2018 LEONARDO HUERTAS DO Ot K21.9 GASTRO-ESOPHAGEAL REFLUX DISEASE WITHOUT 03/11/2018 LEONARDO HUERTAS DO Ot R07.89 OTHER CHEST PAIN 03/11/2018 LEONARDO HUERTAS DO Ot Z77.22 CNTCT W AND EXPSR TO ENVIRON TOBACCO SMO 03/11/2018 LEONARDO HUERTAS DO Ot Z79.4 ELECTRICITY TRADER (CURRENT) USE OF INSULIN 03/11/2018 LEONARDO HUERTAS DO Ot Z79.51 [facility] (CURRENT) USE OF INHALED STERO 03/11/2018 LEONARDO HUERTAS DO Ot Z79.52 ELECTRICITY TRADER (CURRENT) USE OF SYSTEMIC STER 03/11/2018 LEONARDO HUERTAS DO Ot Z80.8 FAMILY HISTORY OF MALIGNANT NEOPLASM OF 03/11/2018 LEONARDO HUERTAS DO Ot Z82.49 FAMILY HX OF ISCHEM HEART DIS AND OTH DI 03/11/2018 LEONARDO HUERTAS DO Ot Z88.0 ALLERGY STATUS TO PENICILLIN 03/11/2018 SANJANA HUERTAS DOA Lakeshia Ot Z90.710 ACQUIRED ABSENCE OF BOTH CERVIX AND UTER 03/22/2018 DELMA EVANS DO Ot Z01.818 ENCOUNTER FOR OTHER PREPROCEDURAL EXAMIN 03/22/2018 DELMA EVANS DO Ot Z12.11 ENCOUNTER FOR SCREENING FOR MALIGNANT NE 03/22/2018 TAWANA CLEMONS, QUINTEN Lee Ot R00.2 PALPITATIONS 03/22/2018 GOMEZ BROWNING APRN Ot E11.9 TYPE 2 DIABETES MELLITUS WITHOUT COMPLIC 03/22/2018 GOMEZ BROWNING APRN Ot E78.00 PURE HYPERCHOLESTEROLEMIA, UNSPECIFIED 03/22/2018 GOMEZ BROWNING APRN Ot G43.909 MIGRAINE, UNSP, NOT INTRACTABLE, WITHOUT 03/22/2018 GOMEZ BROWNING APRN Ot G47.30 SLEEP APNEA, UNSPECIFIED 03/22/2018 GOMEZ BROWNING APRN Ot J45.909 UNSPECIFIED ASTHMA, UNCOMPLICATED 03/22/2018 GOMEZ BROWNING APRN Ot K21.9 GASTRO-ESOPHAGEAL REFLUX DISEASE WITHOUT 03/22/2018 GOMEZ BROWNING APRN Ot L29.9 PRURITUS, UNSPECIFIED 03/22/2018 GOMEZ BROWNING APRN Ot L98.9 DISORDER OF THE SKIN AND SUBCUTANEOUS TI 03/22/2018 GOMEZ BROWNING APRN Ot Z77.22 CNTCT W AND EXPSR TO ENVIRON TOBACCO SMO 03/22/2018 GOMEZ BROWNING APRN Ot Z79.4 [facility] (CURRENT) USE OF INSULIN 03/22/2018 GOMEZ BROWNING APRN Ot Z79.51 [facility] (CURRENT) USE OF INHALED STERO 03/22/2018 GOMEZ BROWNING APRN Ot Z79.52 ELECTRICITY TRADER (CURRENT) USE OF SYSTEMIC STER 03/22/2018 GOMEZ BROWNING APRN Ot Z80.8 FAMILY HISTORY OF MALIGNANT NEOPLASM OF 03/22/2018 GOMEZ BROWNING APRN Ot Z82.49 FAMILY HX OF ISCHEM HEART DIS AND OTH DI 03/22/2018 GOMEZ BROWNING APRN Ot Z88.0 ALLERGY STATUS TO PENICILLIN 03/22/2018 GOMEZ BROWNING APRN Ot Z90.710 ACQUIRED ABSENCE OF BOTH CERVIX AND UTER 03/25/2018 GOMEZ BROWNING APRN Ot E11.9 TYPE 2 DIABETES MELLITUS WITHOUT COMPLIC 03/25/2018 GOMEZ BROWNING APRN Ot E78.00 PURE HYPERCHOLESTEROLEMIA, UNSPECIFIED 03/25/2018 GOMEZ BROWNING APRN Ot G43.909 MIGRAINE, UNSP, NOT INTRACTABLE, WITHOUT 03/25/2018 GOMEZ BROWNING APRN Ot G47.30 SLEEP APNEA, UNSPECIFIED 03/25/2018 GOMEZ BROWNING APRN Ot J45.909 UNSPECIFIED ASTHMA, UNCOMPLICATED 03/25/2018 GOMEZ BROWNING APRN Ot K21.9 GASTRO-ESOPHAGEAL REFLUX DISEASE WITHOUT 03/25/2018 GOMEZ BROWNING APRN Ot L29.9 PRURITUS, UNSPECIFIED 03/25/2018 GOMEZ BROWNING APRN Ot L98.9 DISORDER OF THE SKIN AND SUBCUTANEOUS TI 03/25/2018 GOMEZ BROWNING APRN Ot Z77.22 CNTCT W AND EXPSR TO ENVIRON TOBACCO SMO 03/25/2018 GOMEZ BROWNING APRN Ot Z79.4 [facility] (CURRENT) USE OF INSULIN 03/25/2018 GOMEZ BROWNING APRN Ot Z79.51 ELECTRICITY TRADER (CURRENT) USE OF INHALED STERO 03/25/2018 GOMEZ BROWNING APRN Ot Z79.52 [facility] (CURRENT) USE OF SYSTEMIC STER 03/25/2018 GOMEZ BROWNING APRN Ot Z80.8 FAMILY HISTORY OF MALIGNANT NEOPLASM OF 03/25/2018 GOMEZ BROWNING APRN Ot Z82.49 FAMILY HX OF ISCHEM HEART DIS AND OTH DI 03/25/2018 GOMEZ BROWNING APRN Ot Z88.0 ALLERGY STATUS TO PENICILLIN 03/25/2018 GOMEZ BROWNING APRN Ot Z90.710 ACQUIRED ABSENCE OF BOTH CERVIX AND UTER Procedures Code Description Performed By Performed On OPHTHALMDIO CHA 05/14/2013 29274 MICRO ALBUMIN-IN HOUSE 05/14/2013 59404 A1C (IN-HOUSE) 05/14/2013 67543 MICROALBUMIN 05/14/2013 91537 PULMONARY FUNCTION TEST (IN- HOUSE) 06/22/2013 81283 RESPIRATORY FLOW VOLUME LOOP 06/22/[address] CHEST W/DYE 06/23/2013 69709 PULMONARY FUNCTION TEST 06/23/2013 GENERAL S DELMA EVANS 07/31/2013 80418 UA W/ CULTURE IF INDICATED 08/05/2013 13348 ROUTINE VENIPUNCTURE 12/02/2013 06851 TSH 12/02/2013 83633 SLEEP STUDY (HOSPITAL- SLEEP STUDY) 12/02/2013 35167 A1C (IN-HOUSE) 12/02/2013 38028 CBC 12/02/2013 4687027 GFR CALC (RESULT ONLY) 12/02/2013 20325 CMP 12/02/2013 60565 LIPID PANEL 12/02/[address] CHEST W/DYE 06/17/2014 Results Test Result [...] 11.9 fL 7.5-12.5 ABSOLUTE NEUTROPHILS 4550 cells/uL 0352-2847 ABSOLUTE LYMPHOCYTES 1973 cells/uL 850-3900 ABSOLUTE MONOCYTES [...] INFLUENZA A AND B ANTIGENS BY IA [facility] Blood lactic acid measurement (moles/volume) - 03/09/18 00:12 Blood lactic acid measurement (moles/volume) 1.77 mmol/L 0.50-2.00 Bacterial blood culture - 03/09/18 00:12 Bacterial blood culture NG NR Bacterial blood culture - 03/09/18 00:25 Bacterial blood culture NG [facility] Complete urinalysis with reflex to culture - 03/09/18 02:20 Urine color determination YELLOW NRG Urine clarity determination SLIGHTLY CLOUDY [facility] Urine pH measurement by test strip 5 [...] Status Pt. Type Provider Facility Loc./Unit Complaint [id number] 06/17/2014 15:42:00 06/17/2014 23:59:59 CLS Outpatient QUINTEN GILLIAM MD [id number] 01/13/2014 16:10:00 01/13/2014 23:59:59 CLS Outpatient DARRYN RODRIGUES DDS [id number] 12/02/2013 09:26:00 12/02/2013 23:59:59 CLS Outpatient QUINTEN GILLIAM MD [id number] 11/02/2013 13:43:00 11/02/2013 23:59:59 CLS Outpatient DARRYN RODRIGUES DDS [id number] 08/05/2013 11:59:00 08/05/2013 23:59:59 CLS Outpatient QUINTEN GILLIAM MD [id number] 07/31/2013 10:41:00 07/31/2013 23:59:59 CLS Outpatient QUINTEN GILLIAM MD [id number] 07/04/2013 12:42:00 07/04/2013 23:59:59 CLS Outpatient RAMY MANRIQUE DO [id number] 06/23/2013 13:34:00 06/23/2013 23:59:59 CLS Outpatient QUINTEN GILLIAM MD [id number] 06/22/2013 15:04:00 06/22/2013 23:59:59 CLS Outpatient KIANA HUMPHREYROSALINDA Michael [id number] 06/01/2013 16:19:00 06/01/2013 23:59:59 CLS Outpatient DAGO CRUZ MD [id number] 05/14/2013 14:33:00 05/14/2013 23:59:59 CLS Outpatient QUINTEN GILLIAM MD [id number] 11/17/2012 12:46:00 11/17/2012 23:59:59 CLS Outpatient GALVEZ RONEY YIN [id number] 10/01/2008 10:59:00 10/01/2008 23:59:59 CLS Outpatient ABBEY SHERON YIN [id number] 12/12/2017 14:00:00 12/12/2017 23:59:59 CLS Outpatient QUINTEN GILLIAM MD [facility] [place] [id number] 04/19/2017 12:00:00 Document Registration [id number] 04/12/2017 10:40:00 Document Registration [id number] 03/22/2018 20:42:00 03/22/2018 21:30:00 DIS Emergency GOMEZ BROWNING APRN [facility] ER INSECT BITE [id number] 03/08/2018 22:40:00 03/09/2018 04:30:00 DIS Emergency KIYA DOLEONARDO K [facility] ER CHEST AND BILAT ARM HEAVINESS/LETHARGIC/BS 279 [id number] 12/01/2017 19:01:00 12/01/2017 20:38:00 DIS Emergency MAYELIN MONTALVO [facility] ER SINUS ISSUES,DRAINAGE [id number] 11/27/2017 11:00:00 11/27/2017 23:59:59 CLS Preadmit QUINTEN GILLIAM MD [facility] CARD R00.2 PALPITATIONS [id number] 08/28/2017 08:28:00 11/26/2017 00:01:00 DIS Outpatient QUINTEN GILLIAM MD [facility] CARD R00.2 PALPITATIONS [id number] 07/30/2017 08:00:00 07/30/2017 23:59:59 CLS Preadmit DELMA EVANS DO [facility] ENDO SCREENING [id number] 07/23/2017 05:42:00 07/23/2017 23:59:59 CLS Outpatient DELMA EVANS DO [facility] PREOP COLONOSCOPY [id number] 02/27/2017 22:55:00 02/28/2017 17:00:00 DIS Inpatient MICHELLE CLEMONS, ADALGISA Curran [facility] 4TH CHEST PAIN;ORTHOPNEA [id number] 01/19/2017 15:18:00 01/19/2017 19:05:00 DIS Emergency LINDSAY FRASER [facility] ER FALL, HIP PAIN [id number] 10/08/2016 13:02:00 10/08/2016 14:06:00 DIS Emergency TOM RANDALL MD [facility] ER HEART RACING [id number] 10/01/2016 07:24:00 10/01/2016 23:59:59 CLS Outpatient ARIANA JIMENEZ MD [facility] CARD R07.89 CHEST PAIN [id number] 09/26/2016 10:05:00 09/26/2016 23:59:59 CLS Outpatient ARIANA JIMENEZ MD [facility] CARD R07.89 OTHER CHEST PAIN [id number] 07/13/2016 08:36:00 07/13/2016 23:59:59 CLS Outpatient QUINTEN GILLIAM MD [facility] CARD ABDOMINAL BLOATING [id number] 04/13/2015 13:35:00 04/13/2015 23:59:59 CLS Outpatient ARIANA JIMENEZ MD [facility] CARD PALPITATIONS,SYNCOPE [id number] 01/24/2015 21:33:00 01/24/2015 23:03:00 DIS Emergency LINDSAY FRASER [facility] ER COUGH, SINUS DRIANAGE [id number] 12/24/2014 15:42:00 12/24/2014 23:59:59 CLS Outpatient GRAYSON KUMAR DO [facility] RT DYSPENA MARIOLA [id number] 10/03/2014 19:46:00 10/03/2014 20:53:00 DIS Emergency NAUN COLEMAN MD [facility] ER L EYE IRRITATION [id number] 09/29/2014 08:12:00 09/29/2014 23:59:59 CLS Outpatient QUINTEN GILLIAM MD [facility] CARD INTERMITTENT CHEST PAIN [id number] 09/27/2014 12:54:00 09/27/2014 23:59:59 CLS Outpatient QUINTEN GILLIAM MD [facility] RAD FOLLOW UP LUNG NODULE [id number] 08/27/2014 19:26:00 08/27/2014 22:21:00 DIS Emergency TOM RANDALL MD [facility] ER R SIDE PAIN [id number] 06/16/2014 19:47:00 06/17/2014 06:35:00 DIS Outpatient QUINTEN GILLIAM MD [facility] SLEEP CATAPLEXY,NARCOLEPSY [id number] 04/05/2014 00:24:00 04/05/2014 01:10:00 DIS Emergency NELY BAUGH MD [facility] ER MULTIPLE COMPLAINTS [id number] 03/22/2014 21:10:00 03/23/2014 17:50:00 DIS Outpatient QUINTEN GILLIAM MD [facility] SLEEP CATAPLEXY, NARCOLEPSY [id number] 07/26/2013 17:49:00 07/26/2013 20:08:00 DIS Emergency GOMEZ BROWNING APRN [facility] ER MULTIPLE COMPLAINTS [id number] 07/01/2013 15:50:00 07/01/2013 23:59:59 CLS Outpatient QUINTEN GILLIAM MD [facility] RT SOB [id number] 06/26/2013 12:23:00 06/26/2013 23:59:59 CLS Outpatient QUINTEN GILLIAM MD [facility] RAD F/U NODULE [id number] 05/09/2013 21:35:00 05/12/2013 12:20:00 DIS Outpatient RENUKA CLEMONS, CHETAN [facility] [id number] 03/22/2018 21:28:00 Document Registration [id number] 04/06/2012 01:18:00 Document Registration [id number] 12/24/2011 10:35:00 Document Registration [id number] 08/20/2011 19:47:00 Document Registration [id number] 03/15/2011 22:51:00 Document Registration [id number] 02/25/2016 07:05:00 Document Registration
[2018-04-18 15:39] LABS: PROTHROMBIN TIME PATIENT 13.1 SEC (12.2-14.7)
[2018-04-18 15:43] LABS: ALANINE AMINOTRANSFERASE 19 U/L (0-55); ALBUMIN 3.9 GM/DL (3.2-4.5); ALKALINE PHOSPHATASE 102 U/L (40-136); BILIRUBIN,TOTAL 0.6 MG/DL (0.1-1.0); BUN/CREATININE RATIO 25; CALCIUM 9.3 MG/DL (8.5-10.1); CARBON DIOXIDE 27 MMOL/L (21-32); CHLORIDE 101 MMOL/L (98-107); CREATININE SERUM 0.83 MG/DL (0.60-1.30); GFR ESTIMATED > 60; GLUCOSE 278 MG/DL (70-105); LIPASE 16 U/L (8-78); MAGNESIUM 2.1 MG/DL (1.8-2.4); POTASSIUM 4.5 MMOL/L (3.6-5.0); SODIUM 137 MMOL/L (135-145); TOTAL PROTEIN 6.7 GM/DL (6.4-8.2)
[2018-04-18 15:49] LABS: MYOGLOBIN SERUM 21.9 NG/ML (10.0-92.0)
--- NOTE | 2018-04-18 16:14 | Diagnostic Imaging Report ---
EXAMINATION: Portable erect AP chest at 03:54 p.m. INDICATION: Left-sided chest pain. FINDINGS: The heart size is within normal limits and stable when compared to 03/09/2018. The lungs are clear. There is still no sign of failure, pneumonia, or pleural effusion. The mediastinum is not widened. The osseous structures are intact. IMPRESSION: Stable chest. There has been no adverse change since the prior exam. There is no acute abnormality noted. Dictated by: Dictated on workstation # [id number]
[2018-04-18 19:51] VITALS: BP 110/60
== END 2018-04-18 19:51 | disposition home or self-care (01) ==
LOC: EDUNIT# 14:57 → ER 14:58
DX: R07.89 Other chest pain (principal); J44.9 Chronic obstructive pulmonary disease, unspecified; E11.9 Type 2 diabetes mellitus without complications; J45.909 Unspecified asthma, uncomplicated; G47.30 Sleep apnea, unspecified; E78.00 Pure hypercholesterolemia, unspecified; G43.909 Migraine, unspecified, not intractable, without status migrainosus; E11.40 Type 2 diabetes mellitus with diabetic neuropathy, unspecified; K21.9 Gastro-esophageal reflux disease without esophagitis; Z80.8 Family history of malignant neoplasm of other organs or systems; Z90.710 Acquired absence of both cervix and uterus; Z77.22 Contact with and (suspected) exposure to environmental tobacco smoke (acute) (chronic); Z82.49 Family history of ischemic heart disease and other diseases of the circulatory system; Z88.0 Allergy status to penicillin; Z79.51 Long term (current) use of inhaled steroids; Z79.4 Long term (current) use of insulin; Z79.52 Long term (current) use of systemic steroids
CPT/HCPCS: 36415; 71045; 80053; 82962; 83690; 83735; 83874; 83880; 84484; 85025; 85610; 85730; 93005; 93041

== ENCOUNTER 2018-04-29 07:46 | Day surgery (SDC) | payer MEDICAID ==
[~2018-04-29] VITALS: Ht 162.6 cm; Wt 91.2 kg
[2018-04-29] VITALS (10 sets, daily range): BP systolic 90–126; BP diastolic 41–65
[2018-04-29] MEDS ORDERED: HEParin (CATH LAB) 2,000 ML IV ONE (07:51)
[2018-04-29] MEDS ORDERED: NS IV 1000 ML 1,000 ML ONE (07:51)
[2018-04-29] MEDS ORDERED: LIDOCAINE 1% INJ 20 ML 20 ML VIAL ONE (07:51)
[2018-04-29] MEDS ORDERED: NS IV 1000 ML 1,000 ML IV SCH ×3 (07:55→11:15)
[2018-04-29 08:18] LABS: HEMOGLOBIN 13.9 G/DL (11.5-16.0); MEAN PLATELET VOLUME 11.2 FL (7.4-10.4); RED BLOOD COUNT 4.81 10^6/uL (4.35-5.85); RED CELL DISTRIBUTION WIDTH 13.9 % (10.0-14.5); WHITE BLOOD COUNT 8.4 10^3/uL (4.3-11.0)
[2018-04-29 08:36] LABS: PROTHROMBIN TIME PATIENT 13.4 SEC (12.2-14.7)
[2018-04-29 08:41] LABS: ALANINE AMINOTRANSFERASE 25 U/L (0-55); ALBUMIN 4.3 GM/DL (3.2-4.5); ALKALINE PHOSPHATASE 84 U/L (40-136); BILIRUBIN,TOTAL 1.4 MG/DL (0.1-1.0); BUN/CREATININE RATIO 27; CALCIUM 9.2 MG/DL (8.5-10.1); CARBON DIOXIDE 27 MMOL/L (21-32); CHLORIDE 105 MMOL/L (98-107); CHOLESTEROL 179 MG/DL (< 200); CREATININE SERUM 0.78 MG/DL (0.60-1.30); GFR ESTIMATED > 60; GLUCOSE 166 MG/DL (70-105); HDL CHOLESTEROL 46 MG/DL (40-60); SODIUM 141 MMOL/L (135-145); TOTAL PROTEIN 7.2 GM/DL (6.4-8.2); TRIGLYCERIDES 114 MG/DL (<150); VLDL CHOLESTEROL 23 MG/DL (5-40)
[2018-04-29] MEDS ORDERED: SIMV10TA3 PO (09:04)
[2018-04-29] MEDS ORDERED: METO-387 PO (09:05)
[2018-04-29] MEDS ORDERED: ASPI-586 PO (09:05)
[2018-04-29] MEDS ORDERED: GABA-488 PO (09:05)
[2018-04-29] MEDS ORDERED: INSU100V16 SQ ×2 (09:06→09:07)
[2018-04-29] MEDS ORDERED: INSU100V5 SQ (09:07)
[2018-04-29] MEDS ORDERED: FLU QUADRIvalent (5+ YOA) 2018-2019 (AFLURIA) 0.5 ML IM ONE (09:45)
[2018-04-29] MEDS ORDERED: MIDAZOLAM 5 MG/5 ML (VERSED) VIAL ONE (10:07)
[2018-04-29] MEDS ORDERED: fentaNYL INJECTION 100 MCG/2 ML AMP ONE (10:07)
--- NOTE | 2018-04-29 10:29 | Cardiac Procedure Note-CS/ASA ---
Pre-Procedure Note Pre-Op Procedure Note H&P Reviewed The H&P was reviewed, patient examined and no changes noted. Date H&P Reviewed: Apr 29, 2018 Time H&P Reviewed: 10:28 Conscious Sedation Pre-Proced Time 10:28 ASA Score 3 For ASA 3 and 4: Consider anesthesia and medical clearance. Also, for patients with a history of failed moderate sedation consider anesthesia. Airway Lungs Heart ASA score ASA 1: a normal healthy patient ASA 2: a patient with a mild systemic disease (mid diabetes, controlled hypertension, obesity ASA 3: a patient with a severe systemic disease that limits activity (angina , COPD, prior Myocardial infarction) ASA 4: a patient with an incapacitating disease that is a constant threat to life (CHF, renal failure) ASA 5: a moribund patient not expected to survive 24 hrs. (ruptured aneurysm) ASA 6: a declared brain patient whose organs are being harvested. For emergent operations, add the letter E after the classification Mallampati Classification Grade 3 Sedation Plan Analgesia, Amnesia, Plan communicated to team members, Discussed options with patient/fam, Discussed risks with patient/fam The patient is an appropriate candidate to undergo the planned procedure, sedation, and anesthesia. The patient immediately re-assessed prior to indication. CHRISTIANO TANG MD FACP FAC CCDS Apr 29, 2018 10:29
[2018-04-29] MEDS ORDERED: PATIENT MAY USE OWN MEDS, ALL PO SCH (11:15)
--- NOTE | 2018-04-29 11:19 | Discharge Inst-Cardiology ---
Discharge Inst-Cardiac Discharge Medications Continued Medications: Albuterol Sulfate (Proventil Hfa) 6.7 Gm Hfa.aer.ad 2 PUFF IH Q4H PRN for SHORTNESS OF BREATH, EACH Aspirin (Aspir 81) 81 Mg Tablet.dr 81 MG PO DAILY, TAB Gabapentin (Gabapentin) 300 Mg Capsule 900 MG PO TID, CAP Insulin Aspart (Novolog) 100 Unit/1 Ml Susp 40 UNIT SQ AC, EACH Insulin Determir (Levemir) 1,000 Units/10 Ml Soln 65 UNITS SQ BID, EA Metoprolol Succinate (Metoprolol Succinate) 25 Mg Tab.er.24h 25 MG PO DAILY, TAB Simvastatin (Simvastatin) 10 Mg Tablet 10 MG PO DAILY, TAB CHRISTIANO TANG MD FACP FAC CCDS Apr 29, 2018 11:18
--- NOTE | 2018-04-29 11:19 | Discharge Inst-Post CATH ---
Discharge Inst-CATH/EP Post Cardiac Cath/EP D/C Inst Follow Up/Plan F/u with Dr Garber in 3-4 weeks CARDIAC CATH DISCHARGE INSTRUCTIONS *Hold Metformin for 48 hours post heart cath. ACTIVITY * Go Home directly and rest. * Limit activity of the leg (or wrist if it was used) for 7 days including aerobics, swimming, jogging, bicycling, etc. * Restrict stair-climbing for 7 days if possible, if not, climb up with your non -cath leg, then bring together on the same step. * Avoid lifting, pushing, pulling or excessive movement of the affected extremity for 7 days. * Customary sexual activity may be resumed after 2 days-use caution not to use a position that strains or causes pain to the affected extremity. * No driving for 24 hours. * NO SMOKING. * Avoid straining for bowel movements for 7 days. * Gentle walking on level ground is allowed. * Returning to work will depend on the type of procedure and the results. Your doctor will discuss this with you. CALL YOUR DOCTOR FOR ANY OF THE FOLLOWING: *If bleeding from the puncture site occurs- Apply gentle pressure to site with clean cloth and call your doctor or EMS. * If a knot or lump forms under the skin, increases in size, or causes pain. * If bruising appears to be worsening or moving further down your leg instead of disappearing. * Temperature above 101 F. CARE OF YOUR GROIN INCISION; * Bruising or purple discoloration of the skin near the puncture site is common. * You may shower only, no bathtub bathing for 5 days. Be careful to avoid slipping as your leg may feel stiff. * If a closure device was used on your femoral artery, please see the attached guide regarding care of the device and your leg. * Leave the dressing on, until removed by office staff. CARE OF YOUR WRIST INCISION; * Bruising or purple discoloration of the skin near the puncture site is common. * You may shower. * DO NOT submerge wrist. * Leave dressing on, until removed by office staff.. CHRISTIANO GARBER MD [facility] CCDS Apr 29, 2018 11:19
--- NOTE | 2018-04-29 11:57 | CARDIAC CATHETERIZATION ---
DATE OF SERVICE: 04/29/2018 CARDIAC CATHETERIZATION REPORT SUBJECTIVE: The patient is a 58-year-old lady, who has multiple coronary artery disease risk factors and who has been experiencing chest discomfort suggestive of new onset of angina. Cardiac catheterization was carried out today after having obtained an informed consent. PROCEDURE: She was brought to the cardiac catheterization laboratory in a fasting state. Right groin was prepared and draped in the usual sterile fashion. Lidocaine 1% was used as local anesthesia. Modified Seldinger technique was used to advance a 5-[place] sheath in the right femoral artery. A 5-[place] JL4 catheter was used for left coronary angiography. A 5-[place] JR4 catheter was used for right coronary angiography. A 5-[place] pigtail catheter was used for left heart catheterization and left ventricular angiography. The pigtail catheter was pulled back to the aortic arch and aortic arch angiography was performed. The pigtail was removed. Angiography of the right femoral artery had been carried out through the sheath at the time of sheath insertion. At the end of the procedure, Mynx was used to achieve hemostasis following sheath removal. She tolerated the procedure well. HEMODYNAMICS: Left ventricular end-diastolic pressure following coronary angiography was 6 mmHg. There is no significant pressure gradient on pullback across the aortic valve. Ascending aortic pressure was 92/53 with a mean of 70 mmHg. CORONARY ANGIOGRAPHY: Left main coronary artery, left anterior descending artery, left circumflex artery, right coronary artery are all free of any angiographically significant disease. Right coronary artery is dominant. LEFT VENTRICULAR ANGIOGRAPHY: Left ventricular angiography was carried out in the right anterior oblique projection. Global left ventricular systolic function is normal. No regional wall motion abnormality was seen. Left ventricular ejection fraction estimated approximately 60%. There does not appear to be significant mitral regurgitation. AORTIC ARCH ANGIOGRAPHY: Aortic arch angiography did not indicate any significant thoracic aortic aneurysm or dissection. The neck arteries, to the extent visualized, do not exhibit any significant disease. The left common carotid artery is seen to arise from the right brachiocephalic trunk. CONCLUSIONS: 1. No angiographically significant coronary artery disease. 2. Normal global left ventricular systolic function with ejection fraction of 60%. 3. Normal left ventricular end-diastolic pressure. 4. No evidence of thoracic aortic aneurysm or dissection. DISCUSSION AND RECOMMENDATIONS: Based on results of the study, it appears appropriate to continue a conservative approach. Risk factor modification has been reviewed. Outpatient followup is advised. Job ID: [id number] DocumentID: [id number] Dictated Date: 04/29/2018 11:11:30 [employer] Date: 04/29/2018 11:56:26 Dictated By: CHRISTIANO TANG MD, MA, FACP, FACC,
== END 2018-04-29 14:35 | disposition home or self-care (01) ==
LOC: CATH 07:46 → SDC 11:27 → CATH 14:35
PROVIDERS: ATTEND Internal Medicine Cardiovascular Disease
DX: R07.89 Other chest pain (principal); R06.00 Dyspnea, unspecified; E11.9 Type 2 diabetes mellitus without complications; J45.909 Unspecified asthma, uncomplicated; G47.33 Obstructive sleep apnea (adult) (pediatric); E66.9 Obesity, unspecified; Z68.34 Body mass index [BMI] 34.0-34.9, adult; Z82.49 Family history of ischemic heart disease and other diseases of the circulatory system; Z79.4 Long term (current) use of insulin; Z79.899 Other long term (current) drug therapy
CPT/HCPCS: 36221; 36415; 80053; 80061; 82962; 85027; 85610; 85730; 87081; 93458

== ENCOUNTER → 2018-06-13 | Outpatient (CLI) | payer MEDICAID ==
[~2018-06-13] MED LIST changes: +ASPI-586 PO; +CATHETER FLUSH 10 ML SYR IV PRN; +INSU100V16 SQ; +METO-387 PO; +SIMV10TA3 PO
--- NOTE | 2018-06-13 17:05 | Diagnostic Imaging Report ---
INDICATION: Abdominal pain. TECHNIQUE: The patient received a dose of 5.01 mCi intravenous Choletec and sequential imaging over the abdomen performed. Following confirmation of activity within the gallbladder, bile ducts, and the bowel, gallbladder stimulation was then performed with ingestion of fatty Ensure. Fatty meal ingestion did not result in any patient complaint of pain. FINDINGS: There is homogenous distribution of the radiopharmacy throughout the liver parenchyma and within 15 minutes, activity was accumulating within the intrahepatic biliary ducts, by 25 minutes, spilling into the proximal bowel, and by 30 minutes, accumulating within the gallbladder. Gallbladder ejection fraction was 31%, within normal limits for this mode of stimulation. IMPRESSION: Normal nuclear medicine hepatobiliary scan. Dictated by: Dictated on workstation # [id number]
== END ==
LOC: CARD 11:51
PROVIDERS: ATTEND Surgery
DX: R10.13 Epigastric pain (principal)
CPT/HCPCS: 78227

== ENCOUNTER → 2018-06-24 | Emergency (ER) | payer MEDICAID ==
[~2018-06-24] MED LIST changes: -CATHETER FLUSH 10 ML SYR IV PRN
--- OUTSIDE RECORDS SUMMARY | 2018-06-24 20:13 | XMS REPORT ---
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 Name Role Phone MARGIE BELTRÁNTA Unavailable PROBLEMS Type Condition ICD9-CM Code IEA61-EY Code Onset Dates Condition Status SNOMED Code Problem Primary narcolepsy with cataplexy G47.411 Active 032794797 Problem Gastroesophageal reflux disease with esophagitis K21.0 Active 926162953 Problem Right carpal tunnel syndrome G56.01 Active 05764972 Problem Seasonal allergic rhinitis, unspecified trigger J30.2 Active 471544480 Problem Porokeratosis Q82.8 Active 919041162 Problem Obesity E66.9 Active 017206018 Problem Other chronic pain G89.29 Active 81381154 Problem Non-alcoholic fatty liver disease K76.0 Active 139395126 Problem Tarsal tunnel syndrome of left side G57.52 Active 96905519 Problem Nuclear cataract of both eyes H25.13 Active 55917627 Problem Presbyopia OU H52.4 Active 14755839 Problem Posterior subcapsular age-related cataract of both eyes H25.043 Active 2510909 Problem Type 2 diabetes mellitus with hyperglycemia E11.65 Active 84067282 Problem Lung nodule R91.1 Active 305700760 Problem Delayed gastric emptying K30 Active 929491882 Problem Obstructive sleep apnea G47.33 Active 94631257 Problem Hypermetropia, bilateral H52.03 Active 71873842 Problem Mixed hyperlipidemia E78.2 Active 424515577 ALLERGIES No Information ENCOUNTERS Encounter Location Date Diagnosis [facility] [id number] [address] Apr, [facility] [address], [place] [address] Apr, [facility] [id number] [address] 7[address] Apr, Type 2 diabetes mellitus with hyperglycemia E11.65 [facility] [address], [place] [address] Apr, Chest pain, unspecified type R07.9 [facility] [address], [place] [address] 2517 Apr, Type 2 diabetes mellitus with hyperglycemia E11.65 [facility] [id number] [place] [address] 18824- 6186 Mar, [facility] [id number] [place] [address] 08244- 3329 Mar, [facility] [id number] [place] [address] 66698- 8351 Mar, [facility] [id number] [place] [address] 35159- 2404 Mar, [facility] [id number] [place] [address] 85459- 1486 Feb, [facility] [id number] [place] [address] 56590- 0830 Feb, Type 2 diabetes mellitus with hyperglycemia E11.65 and Epigastric abdominal pain R10.13 [facility] [address] [address] 5027 Feb, [facility] [id number] [place] [address] 94447- 7015 Feb, [facility] [address], [place] [address]- 6187 Feb, [facility] [id number] [place] [address] 32126- 6255 Feb, Seasonal allergic rhinitis, unspecified trigger J30.2 [facility] [address] [address] 9242 Feb, Type 2 diabetes mellitus with hyperglycemia E11.65 [facility] [id number] [place] [address] 59651- 1038 Feb, Viral upper respiratory tract infection J06.9 and Encounter for immunization Z23 [facility] [address] [address]78- 2781 Feb, [facility] [id number] [place] [address] 08720- 1536 Jan, Type 2 diabetes mellitus with hyperglycemia E11.65 [facility] [address] 79310- 9744 Jan, Type 2 diabetes mellitus with hyperglycemia E11.65 [facility] [address] 66337- 2840 Dec, Chest pain on breathing R07.1 [facility] [id number] [place] [address] 11354 -1304 Dec, Chest pain on breathing R07.1 [facility] [address] 76737- 9046 Dec, Well woman exam Z01.419 ; Screening for breast cancer Z12.31 and Screening for colon cancer Z12.11 [facility] [id number] [place] [address] 69401- 7311 Dec, [facility] [id number] [place] [address] 79733- 7227 Dec, Type 2 diabetes mellitus with hyperglycemia E11.65 ; Mixed hyperlipidemia E78.2 and Gastroesophageal reflux disease with esophagitis K21.0 [facility] [id number] [place] [address] 23238- 6950 Nov, Type 2 diabetes mellitus with hyperglycemia E11.65 and Mixed hyperlipidemia E78.2 [facility] [id number] [place] [address] 10160- 8259 Nov, [facility] [id number] [place] [address] 68738- 5901 Oct, Back muscle spasm M62.830 and Bilateral low back pain without sciatica M54.5 [facility] [address] 48370- 0040 Oct, [facility] [address] 39800- 0583 September, [facility] [address] 21444- 3272 September, Type 2 diabetes mellitus with hyperglycemia E11.65 [facility] [address] 22129- 7407 September, Type 2 diabetes mellitus with hyperglycemia E11.65 [facility] [address] 25106- 0926 September, Porokeratosis Q82.8 and Type 2 diabetes mellitus with diabetic polyneuropathy E11.42 [facility] [address] 12360 -8412 Aug, Seasonal allergic rhinitis, unspecified trigger J30.2 [facility] [address] 34348- 9545 Aug, [facility] [address] 86000- 8219 Aug, Bilateral low back pain without sciatica M54.5 [facility] [address] [id number] Aug, Dental examination V72.2 and Dental examination Z01.20 [place] [address] 28522- 3565 Aug, Dental examination Z01.20 and Dental caries K02.9 [facility] [address] 59165- 2076 Aug, Obstructive sleep apnea G47.33 ; Obesity E66.9 ; Type 2 diabetes mellitus with hyperglycemia E11.65 ; Palpitations R00.2 and Corns and callosities L84 [facility] [address] [place] [address]- 3935 Jul, [facility] [id number] [place] [address] 31468- 7367 Jul, [facility] [id number] [place] [address] 79421- 0311 Jun, Type 2 diabetes mellitus with hyperglycemia E11.65 ; Colon cancer screening Z12.11 ; Mixed hyperlipidemia E78.2 ; Non-alcoholic fatty liver disease K76.0 ; Gastroesophageal reflux disease with esophagitis K21.0 and Pain of upper abdomen R10.10 [facility] [id number] [place] [address] 58414- 3178 09 Jun, 2017 Falls frequently R29.6 [facility] [id number] [place] [address] 58452 -9391 May, Infection of nose J34.89 [facility] [id number] [place] [address] 06617- 5188 May, Bilateral low back pain without sciatica M54.5 [facility] [id number] [place] [address] 55186- 7294 May, Type 2 diabetes mellitus with diabetic polyneuropathy E11.42 ; Obstructive sleep apnea G47.33 and Type 2 diabetes mellitus with hyperglycemia E11.65 [facility] [id number] [place] [address] 62296- 7070 Apr, Bilateral low back pain without sciatica M54.5 [facility] [id number] [place] [address] 66911- 5257 Apr, Mixed hyperlipidemia E78.2 and Type 2 diabetes mellitus with hyperglycemia E11.65 [facility] [id number] [place] [address] 94907- 2733 Apr, Type 2 diabetes mellitus with diabetic polyneuropathy E11.42 [facility] [id number] [place] [address] 44334- 5970 Apr, [facility] [id number] [place] [address]- 1621 Apr, Skin lesion of left arm L98.9 and Skin lesion of left leg L98.9 [facility] [address] 16840- 9239 Mar, Bilateral low back pain without sciatica M54.5 [facility] [address] 21271- 0500 Mar, Plantar fasciitis of left foot M72.2 ; Bursitis of left foot M71.572 and Type 2 diabetes mellitus with diabetic polyneuropathy E11.42 [facility] [address] 98250- 9587 Feb, Non-alcoholic fatty liver disease K76.0 ; Keratoacanthoma L85.8 ; Seborrheic keratosis L82.1 ; Type 2 diabetes mellitus with hyperglycemia E11.65 and Nuclear cataract of both eyes H25.13 [facility] [address] [id number] Feb, [facility] [address] 50482- 8532 Feb, [facility] [address] 24980- 1996 Feb, [facility] [address] 77351- 6262 Feb, Type 2 diabetes mellitus with hyperglycemia E11.65 ; Back muscle spasm M62.830 and Encounter for immunization Z23 [facility] [address] 99031- 4813 Jan, Plantar fasciitis of left foot M72.2 [facility] [address] 90558- 2554 Dec, [facility] [address] 71993- 7260 Dec, Plantar fasciitis of left foot M72.2 and Tarsal tunnel syndrome of left side G57.52 [facility] [address], [place] [address]- 2568 Dec, [facility] [id number] [place] [address] 29823 -7868 Nov, Mary Jane rash of groin B37.89 and Rash and nonspecific skin eruption R21 [facility] [id number] [place] [address] 40822- 4500 Nov, [facility] [id number] [place] [address] 02056- 6682 Oct, Type 2 diabetes mellitus with hyperglycemia E11.65 and Mixed hyperlipidemia E78.2 [facility] [id number] [place] [address] 05089- 7131 Oct, [facility] [id number] [place] [address] 74076- 3124 Oct, Chest pain, unspecified R07.9 ; Palpitations R00.2 ; Syncope R55 and Mixed hyperlipidemia E78.2 [facility] [id number] [place] [address] 40571- 7134 Oct, Plantar fasciitis, bilateral M72.2 and Type 1 diabetes mellitus with diabetic neuropathy E10.40 [facility] [id number] [place] [address] 47475- 3557 Oct, [facility] [id number] [place] [address] 86665- 2682 September, Type 2 diabetes mellitus with hyperglycemia E11.65 [facility] [id number] [place] [address] 23059- 0729 September, Type 2 diabetes mellitus with hyperglycemia E11.65 ; Type 2 diabetes mellitus with diabetic polyneuropathy E11.42 ; Gastroesophageal reflux disease with esophagitis K21.0 and Headache, unspecified headache type R51 [facility] [id number] [place] [address] 09066- 3221 September, [facility] [address], [place] [address]- 2076 September, [facility] [id number] [place] [address] 70829- 9838 September, [facility] [id number] [place] [address] 65097- 0158 September, Other chest pain R07.89 ; Heart palpitations R00.2 ; Mixed hyperlipidemia E78.2 and Obesity E66.9 [facility] [id number] [place] [address] 23540- 9469 Aug, [facility] [id number] [place] [address] 38906- 6262 Aug, Type 2 diabetes mellitus with diabetic polyneuropathy E11.42 and Type 2 diabetes mellitus with hyperglycemia E11.65 [facility] [id number] [place] [address] 67827- 8032 Aug, [facility] [id number] [place] [address] 63995- 9789 Aug, [facility] [address] [place] [address] 15966- 9434 Aug, [facility] [id number], [place] [address]- 0165 Aug, Type 2 diabetes mellitus with hyperglycemia E11.65 [facility] [address], [place] [address]- 3769 Aug, [facility] [address], [place] [address]- 1901 Jul, Type 2 diabetes mellitus with diabetic polyneuropathy E11.42 [facility] [id number] [place] [address] 32657- 7351 Jul, Type 2 diabetes mellitus with hyperglycemia E11.65 [facility] [address], [place] [address]- 3351 Jul, [facility] [address] [place] [address]- 4045 Jul, [facility] [id number] [place] [address] 47400- 1344 Jul, [facility] [id number] [place] [address] 06460- 4792 Jul, Type 2 diabetes mellitus with diabetic polyneuropathy E11.42 and Type 2 diabetes mellitus with hyperglycemia E11.65 [facility] [id number] [place] [address] 63866- 8476 Jun, Obstructive sleep apnea G47.33 [facility] [id number] [place] [address] 39835- 9005 Jun, Type 2 diabetes mellitus with diabetic polyneuropathy E11.42 ; Primary narcolepsy with cataplexy G47.411 ; Abdominal bloating R14.0 ; Other chest pain R07.89 and Vision problems H54.7 [facility] [id number] [place] [address] 41713- 4505 Jun, [facility] [id number] [place] [address] 46298- 5334 May, [facility] [id number] [place] [address] 92159- 7946 Apr, [facility] [id number] [place] [address] 31794- 0646 Apr, Plantar fasciitis of left foot M72.2 [facility] [id number] [place] [address] 14935- 1828 Mar, [facility] [id number] [place] [address] 95500- 5351 Mar, Plantar fasciitis of left foot M72.2 and Type 2 diabetes mellitus with diabetic polyneuropathy E11.42 [facility] [id number] [place] [address] 19714- 5772 14 Feb, 2016 Type 2 diabetes mellitus with hyperglycemia E11.65 ; Mixed hyperlipidemia E78.2 and Encounter for immunization Z23 [facility] [id number] [place] [address] 55952- 1032 Feb, [facility] [id number] [place] [address] 22700- 5852 Feb, [facility] [id number] [place] [address] 92687- 0066 Feb, Type 2 diabetes mellitus with hyperglycemia E11.65 [facility] [id number] [place] [address] 53911- 1246 Feb, Type 2 diabetes mellitus with hyperglycemia E11.65 [facility] [id number] [place] [address] 46231- 5077 Jan, [facility] [id number] [place] [address] 15486- 3334 Dec, Pain in left foot M79.672 ; Other chronic pain G89.29 ; Type 2 diabetes mellitus with hyperglycemia E11.65 ; Obstructive sleep apnea G47.33 ; Falls frequently R29.6 ; Mixed hyperlipidemia E78.2 and Gastroesophageal reflux disease with esophagitis K21.0 [facility] [id number] [place] [address] 62199- 5818 Nov, [facility] [id number] [place] [address] 60500- 6947 Oct, Type 2 diabetes mellitus with diabetic polyneuropathy E11.42 [facility] [id number] [place] [address] 16980- 1275 Oct, [facility] [id number] [place] [address] 45751- 0267 Oct, [facility] [id number] [place] [address] 87889- 1445 September, [facility] [id number] [place] [address] 86075- 7940 September, [facility] [id number] [place] [address] 86203- 8386 September, [facility] [address], [place] [address]- 5743 September, [facility] [address], [place] [address]- 9265 September, [facility] [address], [place] [address]- 7519 Aug, Type 2 diabetes mellitus with hyperglycemia E11.65 ; Mixed hyperlipidemia E78.2 and Right carpal tunnel syndrome G56.01 [facility] [id number], [place] [address]- 0108 Aug, [facility] [address], [place] [address]- 8123 Jul, [facility] [address], [place] [address]- 2978 Jun, [facility] [address], [place] [address]- 4925 Jun, [facility] [address], [place] [address]- 7399 May, [facility] [address], [place] [address]- 8183 May, [facility] [address], [place] [address]- 3658 May, Type 2 diabetes mellitus with hyperglycemia E11.65 and Falls E888.9 [facility] [address] [facility] [address] [id number] [address]- 7681 Apr, Type 2 diabetes mellitus with hyperglycemia E11.65 [facility] [address] [facility] [address] [id number] [address]- 3266 Apr, [facility] [id number] [address]- 6840 Apr, Type 2 diabetes mellitus with hyperglycemia E11.65 [facility] [id number] [place] [address] 55408- 7722 Apr, [facility] [address] 44420- 5015 Mar, Type 2 diabetes mellitus with diabetic polyneuropathy E11.42 ; Bilateral low back pain without sciatica M54.5 and Dry nose J34.89 [facility] [address] 34504- 5008 Mar, Palpitations R00.2 ; Syncope R55 ; DM (diabetes mellitus) E11.9 and Obesity E66.9 [facility] [address] 72397- 7919 Mar, [facility] [address] 70588- 8278 Mar, [facility] [address] 45614- 7939 Mar, [facility] [id number] [place] [address] 33124- 4153 Feb, [facility] [id number] [place] [address] 58013- 7379 Jan, [facility] [id number] [place] [address] 58465- 9256 Jan, [facility] [id number] [place] [address] 53377- 5091 Jan, Falls E888.9 and Sinusitis 473.9 [facility] [id number] [place] [address] 82366- 1117 Dec, [facility] [id number] [place] [address] 55556- 0035 Dec, [facility] [id number] [place] [address] 11042- 9404 Dec, [facility] [id number] [place] [address] 23500- 1547 Dec, [facility] [address] [place] [address] 898682- 9888 Dec, Diabetes mellitus without mention of complication, type II or unspecified type, not stated as uncontrolled 250.00 and Shortness of breath 786.05 [facility] [id number] [place] [address] 111820- 5500 Dec, [facility] [id number] [place] [address] 75196- 0778 Nov, [facility] [id number] [place] [address] 838910- 2345 Nov, [facility] [id number] [place] [address] 604381- 4399 Oct, Restrictive lung disease 518.89 [facility] [id number] [place] [address] 197032- 5625 Oct, [facility] [id number] [place] [address] 96677- 4639 Oct, Shortness of breath 786.05 [facility] [id number] [place] [address] 132415- 1747 September, Other nonspecific abnormal finding of lung field 793.19 ; Diabetes mellitus without mention of complication, type II or unspecified type, not stated as uncontrolled 250.00 ; Hyperlipidemia LDL goal < 100 272.4 ; Narcolepsy, with cataplexy 347.01 ; Shortness of breath 786.05 and Chest pain 786.50 [facility] [address] [place] [address] 375416- 4567 Aug, [facility] [id number] [place] [address] 078985- 6174 Aug, [facility] [id number] [place] [address] 325353- 0608 Jun, [facility] [id number] [place] [address] 012080- 9411 Jun, [facility] [place] [facility] [address] [id number] [place] [address]- 6159 Jun, 2014 [facility] [place] [facility] [address] [id number] [place] [address] Jun, 2014 [facility] [place] [facility] [address] [facility] [id number] [place] [address] Jun, 2014 [facility] [place] [facility] [address] [id number] [place] [address] Jun, 2014 [facility] [place] [facility] [address] [id number] [place] [address] Jun, 2014 [facility] [place] [facility] [address] [facility] [address] [id number] [place] [address] Jun, 2014 [facility] [place] [facility] [address] [facility] [address] [id number] [place] [address] May, [facility] [place] [facility] [address] [id number] [place] [address] May, [facility] [place] [facility] [address] [facility] [address] [id number] [place] [address] Apr, [facility] [place] [facility] [address] [facility] [address] [id number] [place] [address]- [address] Apr, [facility] [place] [facility] [address] [facility] [address] [id number] [place] [address] Mar, [facility] [place] [facility] [address] [id number] [address] Mar, [facility] [place] [facility] [address] [id number] [place] [address] Mar, [facility] [place] [facility] [address] [facility] [address] [id number] [place] [address] Mar, [facility] [place] [facility] [address] [facility] [address] [id number] [place] [address] Nov, [facility] [place] [facility] [address] [id number] [place] [address]16 Nov, [facility] [place] [facility] [address] [id number] [place] [address] Nov, [facility] [place] [facility] [address] [id number] [place] [address] Nov, [facility] [place] [facility] [address] [id number] [place] [address] Oct, [facility] [place] [facility] [address] [id number] [place] [address] Oct, [facility] [place] [facility] [address] [id number] [place] [address] Oct, [facility] [place] [facility] [address] [id number] [place] [address] Oct, [facility] [place] [facility] [address] [id number] [place] [address] Oct, [facility] [place] [facility] [address] [id number] [place] [address] Oct, [facility] [place] [facility] [address] [id number] [place] [address] Oct, [facility] [place] [facility] [address] [id number] [place] [address] Oct, [facility] [place] [facility] [address] [id number] [place] [address] Oct, [facility] [place] [facility] [address] [id number] [place] [address] Oct, [facility] [place] [facility] [address] [id number] [place] [address] September, [facility] [place] [facility] [address] [id number] [place] [address] September, [facility] [place] [facility] [address] [id number] [place] [address] Aug, [facility] [place] [facility] [address] [id number] [place] [address] Aug, [facility] [place] [facility] [address] [id number] [place] [address] Aug, [facility] [place] [facility] [address] [id number] [place] [address] Aug, [facility] [place] [facility] [address] [id number] [place] [address] Aug, [facility] [place] [facility] [address] [id number] [place] [address] Aug, [facility] [place] [facility] [address] [id number] [place] [address] Jul, [facility] [place] [facility] [address] [id number] [place] [address] Jul, [facility] [place] [facility] [address] [id number] [place] [address] Jul, [facility] [place] [facility] [address] [id number] [place] [address] Jul, [facility] [place] [facility] [address] [id number] [place] [address] Jul, [facility] [place] [facility] [address] [id number] [place] [address] Jul, [facility] [place] [facility] [address] [id number] [place] [address] 7980 Jul, [facility] [place] [facility] [address] [id number] [place] [address] Jul, [facility] [place] [facility] [address] [id number] [place] [address]44 Jul, [facility] [place] [facility] [address] [id number] [place] [address] Jul, [facility] [place] [facility] [address] [id number] [place] [address] Jul, [facility] [place] [facility] [address] [id number] [place] [address] 19 Jul, 2013 [facility] [place] [facility] [address] [facility] [id number] [place] [address]- [address] 19 Jul, 2013 [facility] [place] [facility] [address] [facility] [id number] [place] [address]- [address]646 14 Jul, 2013 [facility] [place] [facility] [address] [id number] [place] [address]- 4461 14 Jul, 2013 [facility] [place] [facility] [address] [id number] [place] [address] Jul, [facility] [place] [facility] [address] [facility] [id number] [place] [address]484 Jun, [facility] [place] [facility] [address] [facility] [address] [id number] [place] [address] Jun, [facility] [place] [facility] [address] [facility] [address] [id number] [place] [address] 64[address] Jun, [facility] [place] [facility] [address] [facility] [address] [id number] [place] [address] 99[address] Jun, [facility] [place] [facility] [address] [facility] [address] [id number] [place] [address] Jun, [facility] [place] [facility] [address] [facility] [address] [id number] [place] [address]- [address] Jun, [facility] [place] [facility] [address] [facility] [address] [id number] [place] [address]157 Jun, [facility] [place] [facility] [address] [facility] [address] [id number] [place] [address]- [address] Jun, [facility] [place] [facility] [address] [facility] [address] [id number] [place] [address]- [address]64 Jun, [facility] [place] [facility] [address] [facility] [address] [id number] [place] [address] 8901 Jun, [facility] [place] [facility] [address] [id number] [place] [address]- [address] 18 Jun, 2013 [facility] [place] [facility] [address] [id number] [place] [address]- 1478 18 Jun, 2013 [facility] [place] [facility] [address] [facility] [address] [id number] [place] [address]- 7818 14 Jun, 2013 [facility] [place] [facility] [address] [facility] [address] [id number] [place] [address]- 2954 13 Jun, 2013 [facility] [place] [facility] [address] [id number] [place] [address]- 6558 13 Jun, 2013 [facility] [place] [facility] [address] [facility] [address] [id number] [place] [address]- 8807 13 Jun, 2013 [facility] [place] [facility] [address] [facility] [address] [id number] [place] [address]- 5162 13 Jun, 2013 [facility] [place] [facility] [address] [facility] [address] [id number] [place] [address]- 8486 12 Jun, 2013 [facility] [place] [facility] [address] [facility] [address] [id number] [place] [address]- 1042 12 Jun, 2013 [facility] [place] [facility] [address] [facility] [address] [id number] [place] [address]- 3721 11 Jun, 2013 [facility] [place] [facility] [address] [facility] [address] [id number] [place] [address]- 4687 11 Jun, 2013 [facility] [place] [facility] [address] [facility] [address] [id number] [place] [address]- 0314 10 Jun, 2013 [facility] [place] [facility] [address] [facility] [address] [id number] [place] [address]- 1441 07 Jun, 2013 [facility] [place] [facility] [address] [facility] [address] [id number] [place] [address]- 7640 07 Jun, 2013 [facility] [place] [facility] [address] [facility] [address] [id number] [place] [address]- 7101 06 Jun, 2013 [facility] [place] [facility] [address] [id number] [place] [address]- 3540 Jun, [facility] [place] [facility] [address] [id number] [place] [address]- 7338 Jun, [facility] [place] [facility] [address] [id number] [place] [address]- 6841 Jun, [facility] [place] [facility] [address] [id number] [place] [address]- 9205 Jun, [facility] [place] [facility] [address] [id number] [place] [address]- 4741 Jun, [facility] [place] [facility] [address] [id number] [place] [address]- 7085 May, [facility] [place] [facility] [address] [id number] [place] [address]- 9441 May, [facility] [place] [facility] [address] [id number] [place] [address]- 3311 May, [facility] [place] [facility] [address] [id number] [place] [address]- 5319 May, [facility] [place] [facility] [address] [id number] [place] [address]- 1093 May, [facility] [place] [facility] [address] [id number] [place] [address]- 7067 May, [facility] [place] [facility] [address] [id number] [place] [address]- 7994 May, [facility] [place] [facility] [address] [id number] [place] [address]- 2967 May, [facility] [place] [facility] [address] [id number] [place] [address]- 2206 May, [facility] [place] [facility] [address] [id number] [place] [address]- 4437 May, [facility] [place] [facility] [address] [id number] [address] May, [facility] [id number] [address] May, [facility] [id number], [place] [address] May, [facility] [id number] [place] [address] 8562 May, [facility] [id number], [place] [address]474 May, [facility] [id number], [place] [address]262 Apr, [facility] [id number] [address] Apr, [facility] [id number], [place] [address] Dec, [facility] [id number], [place] [address] Nov, [facility] [id number] [address] May, [facility] [id number], [place] [address]- 2731 Apr, [facility] [id number], [place] [address]- [address]244 Apr, [facility] [id number] [address] 99[address] Apr, [facility] [id number] [address] Apr, IMMUNIZATIONS No Known Immunizations SOCIAL HISTORY [...] Surgical History hysterectomy, partial Hospitalization History [facility] 02/27/17 Hospitalization History ER 03/08/18
--- OUTSIDE RECORDS SUMMARY | 2018-06-24 20:43 | XMS REPORT | Continuity of Care Document ---
Author Author [facility] Ctr of [facility] of [facility] Address Unknown Phone Unavailable Allergies Active Description Code Type Severity Reaction Onset Reported/Identified Relationship to Patient Clinical Status Yes erythromycin Drug Allergy N/ A N/A 10/01/2008 Yes Penicillins Drug Allergy N/A N/A 10/01/2008 Yes erythromycin Drug Allergy 10/01/2008 Yes Penicillins Drug Allergy 10/01/2008 Yes Penicillins [id number] Drug Allergy Severe SWELLING IN THR 12/01/2017 Medications There is no data. Problems Date Dx Coded Attending Type Code Diagnosis Diagnosed By 12/11/2007 RONEY GALVEZ APRN 053.9 HERPES ZOSTER NOS 12/11/2007 RONEY GALVEZ APRN V72.31 GRILL ATTENDANT EXAM, ROUTINE 12/11/2007 QUINTEN GILLIAM MD 053.9 HERPES ZOSTER NOS 12/11/2007 QUINTEN GILLIAM MD V72.31 GRILL ATTENDANT EXAM, ROUTINE 12/11/2007 DAGO CRUZ MD 053.9 HERPES ZOSTER NOS 12/11/2007 DAGO CRUZ MD V72.31 GRILL ATTENDANT EXAM, ROUTINE 12/11/2007 ROSALINDA BRUNO APRN 053.9 HERPES ZOSTER NOS 12/11/2007 ROSALINDA BRUNO APRN V72.31 GRILL ATTENDANT EXAM, ROUTINE 12/11/2007 QUINTEN GILLIAM MD 053.9 HERPES ZOSTER NOS 12/11/2007 QUINTEN GILLIAM MD V72.31 GRILL ATTENDANT EXAM, ROUTINE 12/11/2007 RAMY MANRIQUE DO 053.9 HERPES ZOSTER NOS 12/11/2007 RAMY MANRIQUE DO V72.31 GRILL ATTENDANT EXAM, ROUTINE 12/11/2007 QUINTEN GILLIAM MD 053.9 HERPES ZOSTER NOS 12/11/2007 QUINTEN GILLIAM MD V72.31 GRILL ATTENDANT EXAM, ROUTINE 12/11/2007 QUINTEN GILLIAM MD 053.9 HERPES ZOSTER NOS 12/11/2007 QUINTEN GILLIAM MD V72.31 GRILL ATTENDANT EXAM, ROUTINE 12/11/2007 RODRIGUES DDS, DARRYN 053.9 HERPES ZOSTER NOS 12/11/2007 RODRIGUES DDS, DARRYN V72.31 GRILL ATTENDANT EXAM, ROUTINE 12/11/2007 ABBEY YIN, SHERON R 053.9 HERPES ZOSTER NOS 12/11/2007 ABBEY YIN, SHERON Curran V72.31 GRILL ATTENDANT EXAM, ROUTINE 12/11/2007 QUINTEN GILLIAM MD 053.9 HERPES ZOSTER NOS 12/11/2007 QUINTEN GILLIAM MD V72.31 GRILL ATTENDANT EXAM, ROUTINE 12/11/2007 RODRIGUES DDS, DARRYN 053.9 HERPES ZOSTER NOS 12/11/2007 RODRIGUES DDS, DARRYN V72.31 GRILL ATTENDANT EXAM, ROUTINE 12/11/2007 QUINTEN GILLIAM MD 053.9 HERPES ZOSTER NOS 12/11/2007 QUINTEN GILLIAM MD V72.31 GRILL ATTENDANT EXAM, ROUTINE 10/01/2008 RONEY GALVEZ APRN R [...] GILLIAM MD 782.1 RASH 07/26/2013 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 Ot 590.80 PYELONEPHRITIS NOS 07/26/2013 GOMEZ [...] GRAYSON M Ot 327.23 03/29/2015 STACY PEREZ GRYASON M Ot 786.09 04/12/2015 EVANS KUMAR DOSON [...] 07/16/2016 QUINTEN GILLIAM MD Ot 250.00 DIAB UMSEH WO COMPL, TYPE II OR UNSPEC TY [...] CAFE PLACE 01/19/2017 LINDSAY FRASER Ot Z79.4 LONG-TERM (CURRENT) USE OF INSULIN 01/19/2017 LINDSAY FRASER [...] CAFE PLACE 01/21/2017 LINDSAY FRASER Ot Z79.4 LONG-TERM (CURRENT) USE OF INSULIN 01/21/2017 LINDSAY FRASER [...] MD Ot I25.10 ATHSCL HEART DISEASE OF [place] CORONARY 02/28/2017 ADALGISA MARTINEZ MD Ot J45.909 UNSPECIFIED ASTHMA, UNCOMPLICATED 02/28/2017 ADALGISA MARTINEZ MD Ot K21.9 GASTRO-ESOPHAGEAL REFLUX DISEASE WITHOUT 02/28/2017 ADALGISA MARTINEZ MD Ot R06.01 ORTHOPNEA 02/28/2017 ADALGISA MARTINEZ MD Ot R10.11 RIGHT UPPER QUADRANT PAIN 02/28/2017 ADALGISA MARTINEZ MD Ot Z79.4 LONG-TERM (CURRENT) USE OF INSULIN 02/28/2017 ADALGISA MARTINEZ MD Ot Z79.899 OTHER LONG-TERM (CURRENT) DRUG THERAPY 07/24/2017 DELMA EVANS DO [...] TOBACCO SMO 12/01/2017 KIESHA MONTALVOIS Ot Z79.4 LONG-TERM (CURRENT) USE OF INSULIN 12/01/2017 KIESHA MONTALVOIS Ot Z79.51 LONG-TERM (CURRENT) USE OF INHALED STERO 12/01/2017 KIESHA [...] TOBACCO SMO 12/03/2017 LUISAKIESHA AGRAWALIS Ot Z79.4 PILOT SUPERVISOR (CURRENT) USE OF INSULIN 12/03/2017 KIESHA MONTALVOIS Ot Z79.51 LONG-TERM (CURRENT) USE OF INHALED STERO 12/03/2017 KATIA [...] 03/09/2018 KIYA DO, LEONARDO K Ot Z79.4 LONG-TERM (CURRENT) USE OF INSULIN 03/09/2018 KIYA DO, LEONARDO K Ot Z79.51 PILOT SUPERVISOR (CURRENT) USE OF INHALED STERO 03/09/2018 KIYA DO, LEONARDO K Ot Z79.52 LONG-TERM (CURRENT) USE OF SYSTEMIC STER 03/09/2018 KIYA [...] 2 DIABETES MELLITUS WITHOUT COMPLIC 03/11/2018 LEONARDO UHERTAS DO Ot E78.00 PURE HYPERCHOLESTEROLEMIA, UNSPECIFIED 03/11/2018 LEONARDO HUERTAS DO K Ot G43.909 MIGRAINE, UNSP, NOT INTRACTABLE, WITHOUT 03/11/2018 SANJANA HUERTAS DOA K Ot G47.30 SLEEP APNEA, UNSPECIFIED 03/11/2018 SANJANA HUERTSA DOA Lakeshia Ot J45.909 UNSPECIFIED ASTHMA, UNCOMPLICATED 03/11/2018 LEONARDO HUERTAS DO Ot K21.9 GASTRO-ESOPHAGEAL REFLUX DISEASE WITHOUT 03/11/2018 LEONARDO HUERTAS DO Ot R07.89 OTHER CHEST PAIN 03/11/2018 LEONARDO HUERTAS DO Ot Z77.22 CNTCT W AND EXPSR TO ENVIRON TOBACCO SMO 03/11/2018 LEONARDO HUERTAS DO Ot Z79.4 PILOT SUPERVISOR (CURRENT) USE OF INSULIN 03/11/2018 LEONARDO HUERTAS DO Ot Z79.51 LONG-TERM (CURRENT) USE OF INHALED STERO 03/11/2018 LEONARDO HUERTAS DO Ot Z79.52 PILOT SUPERVISOR (CURRENT) USE OF SYSTEMIC STER 03/11/2018 LEONARDO [...] SMO 03/22/2018 GOMEZ BROWNING APRN Ot Z79.4 LONG-TERM (CURRENT) USE OF INSULIN 03/22/2018 GOMEZ BROWNING APRN Ot Z79.51 LONG-TERM (CURRENT) USE OF INHALED STERO 03/22/2018 GOMEZ BROWNING APRN Ot Z79.52 PILOT SUPERVISOR (CURRENT) USE OF SYSTEMIC STER 03/22/2018 GOMEZ [...] SMO 03/25/2018 GOMEZ BROWNING APRN Ot Z79.4 LONG-TERM (CURRENT) USE OF INSULIN 03/25/2018 GOMEZ BROWNING APRN Ot Z79.51 PILOT SUPERVISOR (CURRENT) USE OF INHALED STERO 03/25/2018 GOMEZ BROWNING APRN Ot Z79.52 LONG-TERM (CURRENT) USE OF SYSTEMIC STER 03/25/2018 GOMEZ BROWNING APRN Ot Z80.8 FAMILY HISTORY OF MALIGNANT NEOPLASM OF 03/25/2018 GOMEZ BROWNING APRN Ot Z82.49 FAMILY HX OF ISCHEM HEART DIS AND OTH DI 03/25/2018 GOMEZ BROWNING APRN Ot Z88.0 ALLERGY STATUS TO PENICILLIN 03/25/2018 GOMEZ BROWNING APRN Ot Z90.710 ACQUIRED ABSENCE OF BOTH CERVIX AND UTER 04/18/2018 ABDELRAHMAN MCDONALD MD Ot E11.40 TYPE 2 DIABETES MELLITUS WITH DIABETIC N 04/18/2018 ABDELRAHMAN MCDONALD MD Ot E11.9 TYPE 2 DIABETES MELLITUS WITHOUT COMPLIC 04/18/2018 ABDELRAHMAN MCDONALD MD Ot E78.00 PURE HYPERCHOLESTEROLEMIA, UNSPECIFIED 04/18/2018 ABDELRAHMAN MCDONALD MD Ot G43.909 MIGRAINE, UNSP, NOT INTRACTABLE, WITHOUT 04/18/2018 ABDELRAHMAN MCDONALD MD Ot G47.30 SLEEP APNEA, UNSPECIFIED 04/18/2018 ABDELRAHMAN MCDONALD MD Ot J44.9 CHRONIC OBSTRUCTIVE PULMONARY DISEASE, U 04/18/2018 ABDELRAHMAN MCDONALD MD Ot J45.909 UNSPECIFIED ASTHMA, UNCOMPLICATED 04/18/2018 ABDELRAHMAN MCDONALD MD Ot K21.9 GASTRO-ESOPHAGEAL REFLUX DISEASE WITHOUT 04/18/2018 ABDELRAHMAN MCDONALD MD Ot R07.89 OTHER CHEST PAIN 04/18/2018 ABDELRAHMAN MCDONALD MD Ot Z77.22 CNTCT W AND EXPSR TO ENVIRON TOBACCO SMO 04/18/2018 ABDELRAHMAN MCDONALD MD Ot Z79.4 LONG-TERM (CURRENT) USE OF INSULIN 04/18/2018 ABDELRAHMAN MCDONALD MD Ot Z79.51 PILOT SUPERVISOR (CURRENT) USE OF INHALED STERO 04/18/2018 ABDELRAHMAN MCDONALD MD Ot Z79.52 PILOT SUPERVISOR (CURRENT) USE OF SYSTEMIC STER 04/18/2018 ABDELRAHMAN MCDONALD MD Ot Z80.8 FAMILY HISTORY OF MALIGNANT NEOPLASM OF 04/18/2018 ABDELRAHMAN MCDONALD MD Ot Z82.49 FAMILY HX OF ISCHEM HEART DIS AND OTH DI 04/18/2018 ABDELRAHMAN MCDONALD MD Ot Z88.0 ALLERGY STATUS TO PENICILLIN 04/18/2018 ABDELRAHMAN MCDONALD MD Ot Z90.710 ACQUIRED ABSENCE OF BOTH CERVIX AND UTER 04/22/2018 ABDELRAHMAN MCDONALD MD Ot E11.40 TYPE 2 DIABETES MELLITUS WITH DIABETIC N 04/22/2018 ABDELRAHMAN MCDONALD MD Ot E11.9 TYPE 2 DIABETES MELLITUS WITHOUT COMPLIC 04/22/2018 ABDELRAHMAN MCDONALD MD Ot E78.00 PURE HYPERCHOLESTEROLEMIA, UNSPECIFIED 04/22/2018 ABDELRAHMAN MCDONALD MD Ot G43.909 MIGRAINE, UNSP, NOT INTRACTABLE, WITHOUT 04/22/2018 ABDELRAHMAN MCDONALD MD Ot G47.30 SLEEP APNEA, UNSPECIFIED 04/22/2018 ABDELRAHMAN MCDONALD MD Ot J44.9 CHRONIC OBSTRUCTIVE PULMONARY DISEASE, U 04/22/2018 ABDELRAHMAN MCDONALD MD Ot J45.909 UNSPECIFIED ASTHMA, UNCOMPLICATED 04/22/2018 ABDELRAHMAN MCDONALD MD Ot K21.9 GASTRO-ESOPHAGEAL REFLUX DISEASE WITHOUT 04/22/2018 ABDELRAHMAN MCDONALD MD Ot R07.89 OTHER CHEST PAIN 04/22/2018 ABDELRAHMAN MCDONALD MD Ot Z77.22 CNTCT W AND EXPSR TO ENVIRON TOBACCO SMO 04/22/2018 ABDELRAHMAN MCDONALD MD Ot Z79.4 PILOT SUPERVISOR (CURRENT) USE OF INSULIN 04/22/2018 ABDELRAHMAN MCDONALD MD Ot Z79.51 LONG-TERM (CURRENT) USE OF INHALED STERO 04/22/2018 ABDELRAHMAN MCDONALD MD Ot Z79.52 LONG-TERM (CURRENT) USE OF SYSTEMIC STER 04/22/2018 ABDELRAHMAN MCDONALD MD Ot Z80.8 FAMILY HISTORY OF MALIGNANT NEOPLASM OF 04/22/2018 ABDELRAHMAN MCDONALD MD Ot Z82.49 FAMILY HX OF ISCHEM HEART DIS AND OTH DI 04/22/2018 TAMARA CLEMONS, ABDELRAHMAN Foster Ot Z88.0 ALLERGY STATUS TO PENICILLIN 04/22/2018 ABDELRAHMAN MCDONALD MD Ot Z90.710 ACQUIRED ABSENCE OF BOTH CERVIX AND UTER 04/29/2018 KITTY CLEMONS FACC, ALI FACP CCDS Ot E11.9 TYPE 2 DIABETES MELLITUS WITHOUT COMPLIC 04/29/2018 KITTY CLEMONS FACC, ALI FACP CCDS Ot E66.9 OBESITY, UNSPECIFIED 04/29/2018 KITTY CLEMONS FACC, ALI FACP CCDS Ot G47.33 OBSTRUCTIVE SLEEP APNEA (ADULT) (PEDIATR 04/29/2018 KITTY CLEMONS FACC, ALI FACP CCDS Ot J45.909 UNSPECIFIED ASTHMA, UNCOMPLICATED 04/29/2018 KTITY CLEMONS FACC, ALI FACP CCDS Ot R06.00 DYSPNEA, UNSPECIFIED 04/29/2018 KITTY CLEMONS FACC, ALI FACP CCDS Ot R07.89 OTHER CHEST PAIN 04/29/2018 KITTY CLEMONS FACC, ALI FACP CCDS Ot Z68.34 BODY MASS INDEX (BMI) 34.0-34.9, ADULT 04/29/2018 KITTY CLEMONS FACC, ALI FACP CCDS Ot Z79.4 LONG-TERM (CURRENT) USE OF INSULIN 04/29/2018 KITTY VILLALTAC, ALI FACP CCDS Ot Z79.899 OTHER LONG-TERM (CURRENT) DRUG THERAPY 04/29/2018 KITTY CLEMONS FACC, ALI FACP CCDS Ot Z82.49 FAMILY HX OF ISCHEM HEART DIS AND OTH DI 05/19/2018 DELMA EVANS DO Ot K76.9 LIVER DISEASE, UNSPECIFIED 05/29/2018 DELMA EVANS DO Ot K76.9 LIVER DISEASE, UNSPECIFIED 06/13/2018 DELMA EVANS DO Ot Z01.818 ENCOUNTER FOR OTHER PREPROCEDURAL EXAMIN 06/13/2018 DELMA EVANS DO Ot Z12.11 ENCOUNTER FOR SCREENING FOR MALIGNANT NE 06/13/2018 TAWANA CLEMONS, QUINTEN Lee Ot R00.2 PALPITATIONS 06/13/2018 DELMA EVANS DO Ot K76.9 LIVER DISEASE, UNSPECIFIED Procedures Code Description Performed By Performed On DIO CAI 05/14/2013 61202 MICRO ALBUMIN-IN HOUSE 05/14/2013 62509 A1C (IN-HOUSE) 05/14/2013 45401 MICROALBUMIN 05/14/2013 38531 PULMONARY FUNCTION TEST (IN- HOUSE) 06/22/2013 32796 RESPIRATORY FLOW VOLUME LOOP 06/22/[address] CHEST W/DYE 06/23/2013 02047 PULMONARY FUNCTION TEST 06/23/2013 GENERAL S DELMA EVANS 07/31/2013 19394 UA W/ CULTURE IF INDICATED 08/05/2013 58294 ROUTINE VENIPUNCTURE 12/02/2013 29318 TSH 12/02/2013 13430 SLEEP STUDY ([facility]- SLEEP STUDY) 12/02/2013 94957 A1C (IN-HOUSE) 12/02/2013 52244 CBC 12/02/2013 5063879 GFR CALC (RESULT ONLY) 12/02/2013 18392 CMP 12/02/2013 03862 LIPID PANEL 12/02/[address] CHEST W/DYE 06/17/2014 Results Test Result [...] NR A GROSS DESCRIPTION NR A DIAGNOSIS [facility] CBC - 04/19/17 12:41 WHITE BLOOD CELL COUNT 7.2 Thousand/uL 3.8-10.8 RED BLOOD CELL COUNT 4.82 Million/uL 3.80-5.10 HEMOGLOBIN 14.4 g/dL 11.7-15.5 HEMATOCRIT 42.1 % 35.0-45.0 MCV 87.3 fL 80.0-100.0 MCH 29.9 pg 27.0-33.0 MCHC 34.2 g/dL 32.0-36.0 RDW 13.1 % 11.0-15.0 PLATELET COUNT 210 Thousand/uL 140-400 MPV 11.9 fL 7.5-12.5 ABSOLUTE NEUTROPHILS 4550 cells/uL 3229-5413 ABSOLUTE LYMPHOCYTES 1973 cells/uL 850-3900 ABSOLUTE MONOCYTES [...] i.cardiac measurement (mass/volume) < ng/ mL <0.30 Complete blood count (CBC) with automated white blood cell (WBC) differential - 04/18/18 15:10 Blood leukocytes automated count (number/volume) 8.0 10*3/uL 4.3-11.0 Blood erythrocytes automated count (number/volume) 4.61 10*6/uL 4.35-5.85 Venous blood hemoglobin measurement (mass/volume) 13.2 g/dL 11.5-16.0 Blood hematocrit (volume fraction) 40 % 35-52 Automated erythrocyte mean corpuscular volume 87 [foz_us] 80-99 Automated erythrocyte mean corpuscular hemoglobin (mass per erythrocyte) 29 pg 25-34 Automated erythrocyte mean corpuscular hemoglobin concentration measurement ( mass/volume) 33 g/dL 32-36 Automated erythrocyte distribution width ratio 13.6 % 10.0-14.5 Automated blood platelet count (count/volume) 214 10*3/uL 130-400 Automated blood platelet mean volume measurement 11.2 [foz_us] 7.4-10.4 Automated blood neutrophils/100 leukocytes 62 % 42-75 Automated blood lymphocytes/100 leukocytes 28 % 12-44 Blood monocytes/100 leukocytes 8 % 0-12 Automated blood eosinophils/100 leukocytes 2 % 0-10 Automated blood basophils/100 leukocytes 1 % 0-10 Blood neutrophils automated count (number/volume) 5.0 10*3 1.8-7.8 Blood lymphocytes automated count (number/volume) 2.2 10*3 1.0-4.0 Blood monocytes automated count (number/volume) 0.7 10*3 0.0-1.0 Automated eosinophil count 0.1 10*3/uL 0.0-0.3 Automated blood basophil count (count/volume) 0.0 10*3/uL 0.0-0.1 PT panel in platelet poor plasma by coagulation assay - 04/18/18 15:10 Prothrombin time (PT) in platelet poor plasma by coagulation assay 13.1 s 12.2-14.7 INR in platelet poor plasma or blood by coagulation assay 1.0 0.8-1.4 Activated partial thromboplastin time (aPTT) in platelet poor plasma bycoagulation assay - 04/18/18 15:10 Activated partial thromboplastin time (aPTT) in platelet poor plasma bycoagulation assay 30 s 24-35 Comprehensive metabolic panel - 04/18/18 15:10 Serum or plasma sodium measurement (moles/volume) 137 mmol/L 135-145 Serum or plasma potassium measurement (moles/volume) 4.5 mmol/L 3.6-5.0 Serum or plasma chloride measurement (moles/volume) 101 mmol/L 98-107 Carbon dioxide 27 mmol/L 21-32 Serum or plasma anion gap determination (moles/volume) 9 mmol/L 5-14 Serum or plasma urea nitrogen measurement (mass/volume) 21 mg/dL 7-18 Serum or plasma creatinine measurement (mass/volume) 0.83 mg/dL 0.60-1.30 Serum or plasma urea nitrogen/creatinine mass ratio 25 NRG Serum or plasma creatinine measurement with calculation of estimated glomerular filtration rate > NRG Serum or plasma glucose measurement (mass/volume) 278 mg/dL 70-105 Serum or plasma calcium measurement (mass/volume) 9.3 mg/dL 8.5-10.1 Serum or plasma total bilirubin measurement (mass/volume) 0.6 mg/dL 0.1-1.0 Serum or plasma alkaline phosphatase measurement (enzymatic activity/volume) 102 U/L 40-136 Serum or plasma aspartate aminotransferase measurement (enzymatic activity/ volume) 12 U/L 5-34 Serum or plasma alanine aminotransferase measurement (enzymatic activity/volume ) 19 U/L 0-55 Serum or plasma protein measurement (mass/volume) 6.7 g/dL 6.4-8.2 Serum or plasma albumin measurement (mass/volume) 3.9 g/dL 3.2-4.5 CALCIUM CORRECTED 9.4 mg/dL 8.5-10.1 Magnesium - 04/18/18 15:10 Magnesium 2.1 mg/dL 1.8-2.4 Serum or plasma troponin i.cardiac measurement (mass/volume) - 04/18/18 15:10 Serum or plasma troponin i.cardiac measurement (mass/volume) < ng/ mL <0.30 Myoglobin, serum - 04/18/18 15:10 Myoglobin, serum 21.9 ng/mL 10.0-92.0 Lipase - 04/18/18 15:10 Lipase 16 U/L 8-78 Serum or plasma lithium measurement (moles/volume) - 04/18/18 15:10 BNP level < pg/mL <100.0 Capillary blood glucose measurement by glucometer (mass/volume) - 04/18/18 16: 08 Capillary blood glucose measurement by glucometer (mass/volume) 279 mg/dL 70-110 Serum or plasma troponin i.cardiac measurement (mass/volume) - 04/18/18 18:27 Serum or plasma troponin i.cardiac measurement (mass/volume) < ng/ mL <0.30 Automated blood complete blood count (hemogram) panel - 04/29/18 08:11 Blood leukocytes automated count (number/volume) 8.4 10*3/uL 4.3-11.0 Blood erythrocytes automated count (number/volume) 4.81 10*6/uL 4.35-5.85 Venous blood hemoglobin measurement (mass/volume) 13.9 g/dL 11.5-16.0 Blood hematocrit (volume fraction) 42 % 35-52 Automated erythrocyte mean corpuscular volume 87 [foz_us] 80-99 Automated erythrocyte mean corpuscular hemoglobin (mass per erythrocyte) 29 pg 25-34 Automated erythrocyte mean corpuscular hemoglobin concentration measurement ( mass/volume) 33 g/dL 32-36 Automated erythrocyte distribution width ratio 13.9 % 10.0-14.5 Automated blood platelet count (count/volume) 236 10*3/uL 130-400 Automated blood platelet mean volume measurement 11.2 [foz_us] 7.4-10.4 PT panel in platelet poor plasma by coagulation assay - 04/29/18 08:11 Prothrombin time (PT) in platelet poor plasma by coagulation assay 13.4 s 12.2-14.7 INR in platelet poor plasma or blood by coagulation assay 1.0 0.8-1.4 Activated partial thromboplastin time (aPTT) in platelet poor plasma bycoagulation assay - 04/29/18 08:11 Activated partial thromboplastin time (aPTT) in platelet poor plasma bycoagulation assay 30 s 24-35 Comprehensive metabolic panel - 04/29/18 08:11 Serum or plasma sodium measurement (moles/volume) 141 mmol/L 135-145 Serum or plasma potassium measurement (moles/volume) 4.0 mmol/L 3.6-5.0 Serum or plasma chloride measurement (moles/volume) 105 mmol/L 98-107 Carbon dioxide 27 mmol/L 21-32 Serum or plasma anion gap determination (moles/volume) 9 mmol/L 5-14 Serum or plasma urea nitrogen measurement (mass/volume) 21 mg/dL 7-18 Serum or plasma creatinine measurement (mass/volume) 0.78 mg/dL 0.60-1.30 Serum or plasma urea nitrogen/creatinine mass ratio 27 NRG Serum or plasma creatinine measurement with calculation of estimated glomerular filtration rate > NRG Serum or plasma glucose measurement (mass/volume) 166 mg/dL 70-105 Serum or plasma calcium measurement (mass/volume) 9.2 mg/dL 8.5-10.1 Serum or plasma total bilirubin measurement (mass/volume) 1.4 mg/dL 0.1-1.0 Serum or plasma alkaline phosphatase measurement (enzymatic activity/volume) 84 U/L 40-136 Serum or plasma aspartate aminotransferase measurement (enzymatic activity/ volume) 18 U/L 5-34 Serum or plasma alanine aminotransferase measurement (enzymatic activity/volume ) 25 U/L 0-55 Serum or plasma protein measurement (mass/volume) 7.2 g/dL 6.4-8.2 Serum or plasma albumin measurement (mass/volume) 4.3 g/dL 3.2-4.5 CALCIUM CORRECTED 9.0 mg/dL 8.5-10.1 Lipid 1996 panel - 04/29/18 08:11 Serum or plasma triglyceride measurement (mass/volume) 114 mg/dL <150 Serum or plasma cholesterol measurement (mass/volume) 179 mg/dL < 200 Serum or plasma cholesterol in HDL measurement (mass/volume) 46 mg/ dL 40-60 Cholesterol in LDL [mass/volume] in serum or plasma by direct assay 123 mg/dL 1-129 Serum or plasma cholesterol in VLDL measurement (mass/volume) 23 mg/ dL 5-40 Methicillin resistant Staphylococcus aureus (MRSA) screening culture - 08:11 Methicillin resistant Staphylococcus aureus (MRSA) screening culture NEG NRG Capillary blood glucose measurement by glucometer (mass/volume) - 04/29/18 12: 32 Capillary blood glucose measurement by glucometer (mass/volume) 137 mg/dL 70-110 Encounters ACCT No. Visit Date/Time Discharge Status Pt. Type Provider Facility Loc./Unit Complaint [id number] 06/17/2014 15:42:00 06/17/2014 23:59:59 CLS Outpatient QUINTEN GILLIAM MD [id number] 01/13/2014 16:10:00 01/13/2014 23:59:59 CLS Outpatient DARRYN RODRIGUES DDS [id number] 12/02/2013 09:26:00 12/02/2013 23:59:59 CLS Outpatient QUINTEN GILLIAM MD [id number] 11/02/2013 13:43:00 11/02/2013 23:59:59 CLS Outpatient RODRIGUES SUMADARRYN Oliveira [id number] 08/05/2013 11:59:00 08/05/2013 23:59:59 CLS Outpatient QUINTEN GILLIAM MD [id number] 07/31/2013 10:41:00 07/31/2013 23:59:59 CLS Outpatient QUINTEN GILLIAM MD [id number] 07/04/2013 12:42:00 07/04/2013 23:59:59 CLS Outpatient BURTON RAMY Lakeshia [id number] 06/23/2013 13:34:00 06/23/2013 23:59:59 CLS Outpatient QUINTEN GILLIAM MD [id number] 06/22/2013 15:04:00 06/22/2013 23:59:59 CLS Outpatient ROSALINDA BRUNO APRN [id number] 06/01/2013 16:19:00 06/01/2013 23:59:59 CLS Outpatient DAGO CRUZ MD [id number] 05/14/2013 14:33:00 05/14/2013 23:59:59 CLS Outpatient QUINTEN GILLIAM MD [id number] 11/17/2012 12:46:00 11/17/2012 23:59:59 CLS Outpatient RONEY GALVEZ APRN [id number] 10/01/2008 10:59:00 10/01/2008 23:59:59 CLS Outpatient SHERON POTTER APRN [id number] 06/05/2018 13:15:00 06/05/2018 23:59:59 CLS Outpatient JEFF BELTRÁN [facility] [id number] 04/19/2017 12:00:00 Document Registration [id number] 04/12/2017 10:40:00 Document Registration [id number] 06/13/2018 11:51:00 06/13/2018 23:59:59 CLS Outpatient DELMA EVANS DO [facility] CARD EPIGASTRIC ABD PAIN [id number] 05/16/2018 06:47:00 05/16/2018 23:59:59 CLS Outpatient DELMA EVANS DO [facility] RAD EPIGASTRIC ABD PAIN [id number] 04/29/2018 07:46:00 04/29/2018 14:35:00 DIS Outpatient KITTY CLEMONS FACRoque, CHRISTIANO SILVER CCDS [facility] CATH DM,ANGINA,MARIOLA ,FATIGUE,SOB [id number] 04/23/2018 12:47:00 04/23/2018 23:59:59 CLS Preadmit CHRISTIANO TANG MD, FACC, FACP CCDS [facility] CARD DIABETES MELLITUS,CHEST DISCOMFORT,MARIOLA ON CPAP [id number] 04/18/2018 14:58:00 04/18/2018 19:51:00 DIS Emergency ABDELRAHMAN MCDONALD MD [facility] ER CP [id number] 03/22/2018 20:42:00 03/22/2018 21:30:00 DIS Emergency GOMEZ BROWNING APRN [facility] ER INSECT BITE [id number] 03/08/2018 22:40:00 03/09/2018 04:30:00 DIS Emergency LEONARDO HUERTAS DO [facility] ER CHEST AND BILAT ARM HEAVINESS/LETHARGIC/BS 279 [id number] 12/01/2017 19:01:00 12/01/2017 20:38:00 DIS Emergency MAYELIN MONTALVO [facility] ER SINUS ISSUES,DRAINAGE [id number] 11/27/2017 11:00:00 11/27/2017 23:59:59 CLS Preadmit QUINTEN GILLIAM MD [facility] CARD R00.2 PALPITATIONS [id number] 08/28/2017 08:28:00 11/26/2017 00:01:00 DIS Outpatient QUINTEN GILLIAM MD [facility] CARD R00.2 PALPITATIONS [id number] 07/30/2017 08:00:00 07/30/2017 23:59:59 CLS Preadmit DELMA EVANS DO [facility] ENDO SCREENING [id number] 07/23/2017 05:42:00 07/23/2017 23:59:59 CLS Outpatient DELMA EVANS DO [facility] PREOP COLONOSCOPY [id number] 02/27/2017 22:55:00 02/28/2017 17:00:00 DIS Inpatient MICHELLE CLEMONS, ADALGISA Curran [facility] 4TH CHEST PAIN;ORTHOPNEA [id number] 01/19/2017 15:18:00 01/19/2017 19:05:00 DIS Emergency LINDSAY FRASER [facility] ER FALL, HIP PAIN [id number] 10/08/2016 13:02:00 10/08/2016 14:06:00 DIS Emergency TOM RANDALL MD [facility] ER HEART RACING [id number] 10/01/2016 07:24:00 10/01/2016 23:59:59 CLS Outpatient ARIANA JIMENEZ MD [facility] CARD R07.89 CHEST PAIN [id number] 09/26/2016 10:05:00 09/26/2016 23:59:59 CLS Outpatient ARIANA JIMENEZ MD [facility] CARD R07.89 OTHER CHEST PAIN [id number] 07/13/2016 08:36:00 07/13/2016 23:59:59 CLS Outpatient QUINTEN GILLIAM MD [facility] CARD ABDOMINAL BLOATING [id number] 04/13/2015 13:35:00 04/13/2015 23:59:59 CLS Outpatient ARIANA JIMENEZ MD [facility] CARD PALPITATIONS,SYNCOPE [id number] 01/24/2015 21:33:00 01/24/2015 23:03:00 DIS Emergency LINDSAY FRASER [facility] ER COUGH, SINUS DRIANAGE [id number] 12/24/2014 15:42:00 12/24/2014 23:59:59 CLS Outpatient GRAYSON KUMAR DO [facility] RT DYSPENA MARIOLA [id number] 10/03/2014 19:46:00 10/03/2014 20:53:00 DIS Emergency NAUN COLEMAN MD [facility] ER L EYE IRRITATION [id number] 09/29/2014 08:12:00 09/29/2014 23:59:59 CLS Outpatient QUINTEN GILLIAM MD [facility] CARD INTERMITTENT CHEST PAIN [id number] 09/27/2014 12:54:00 09/27/2014 23:59:59 CLS Outpatient QUINTEN GILLIAM MD [facility] RAD FOLLOW UP LUNG NODULE [id number] 08/27/2014 19:26:00 08/27/2014 22:21:00 DIS Emergency TOM RANDALL MD [facility] ER R SIDE PAIN [id number] 06/16/2014 19:47:00 06/17/2014 06:35:00 DIS Outpatient QUINTEN GILLIAM MD [facility] SLEEP CATAPLEXY,NARCOLEPSY [id number] 04/05/2014 00:24:00 04/05/2014 01:10:00 DIS Emergency NELY BAUGH MD [facility] ER MULTIPLE COMPLAINTS [id number] 03/22/2014 21:10:00 03/23/2014 17:50:00 DIS Outpatient QUINTEN GILLIAM MD [facility] SLEEP CATAPLEXY, NARCOLEPSY [id number] 07/26/2013 17:49:00 07/26/2013 20:08:00 DIS Emergency GOMEZ BROWNING APRN [facility] ER MULTIPLE COMPLAINTS [id number] 07/01/2013 15:50:00 07/01/2013 23:59:59 CLS Outpatient QUINTEN GILLIAM MD [facility] RT SOB [id number] 06/26/2013 12:23:00 06/26/2013 23:59:59 CLS Outpatient QUINTEN GILLIAM MD [facility] RAD F/U NODULE [id number] 05/09/2013 21:35:00 05/12/2013 12:20:00 DIS Outpatient CHETAN GRAYSON MD [facility] CATH CP [id number] 06/24/2018 20:07:00 ACT Emergency LEONARDO HUERTAS DO [facility] ER RT EYE PAIN [id number] 03/22/2018 21:28:00 Document Registration [id number] 04/06/2012 01:18:00 Document Registration [id number] 12/24/2011 10:35:00 Document Registration [id number] 08/20/2011 19:47:00 Document Registration [id number] 03/15/2011 22:51:00 Document Registration [id number] 02/25/2016 07:05:00 Document Registration
== END | disposition left against medical advice (07) ==
LOC: EDUNIT# 20:04 → ER 20:07
DX: H57.11 Ocular pain, right eye (principal); R07.9 Chest pain, unspecified

== ENCOUNTER → 2018-08-08 | Outpatient (CLI) | payer MEDICAID | END | disposition home or self-care (01) | LOC: PREOP 05:38 | PROVIDERS: ATTEND Surgery | DX: Z01.818 Encounter for other preprocedural examination (principal) ==

== ENCOUNTER → 2020-08-08 | Outpatient (CLI) | payer MEDICAID ==
[~2020-08-08] MED LIST changes: +CIPR500T5 PO; -METO-387 PO; +MTP25TSR PO; +SIMV10TA26 PO; -SIMV10TA3 PO
--- NOTE | 2020-08-09 10:45 | Diagnostic Imaging Report ---
EXAMINATION: Digital mammogram bilateral screening with CAD. INDICATION: Screening. COMPARISON: This study was compared to the prior exam of 03/02/2008. PERSONAL HISTORY: At this time, there are no current complaints. FINDINGS: The fibroglandular tissue in both breasts is heterogeneously dense. This does limit the sensitivity of this exam. Overall, there does not appear to have been any significant change when compared to the prior study. No primary or secondary sign of malignancy is noted. IMPRESSION: 1. There is no evidence for malignancy. 2. The patient should have her annual bilateral screening mammogram on schedule in July 2021. ACR BI-RADS Category 1: Negative. Result letter will be mailed to the patient. Note: At least 10% of breast cancer is not imaged by mammography. Dictated by: Dictated on workstation # [id number]
== END ==
LOC: RAD 13:46
PROVIDERS: ATTEND Nurse Practitioner Family
DX: Z12.31 Encounter for screening mammogram for malignant neoplasm of breast (principal)
CPT/HCPCS: 77063; 77067

== ENCOUNTER 2021-06-03 17:09 | Inpatient (IN) | payer MEDICAID ==
[~2021-06-03] VITALS: Ht 162.6 cm; Wt 92.0 kg
[~2021-06-03 17:09] MED LIST changes: +CYCL10TA25 PO
--- NOTE | 2021-06-03 18:06 | ED General ---
General Chief Complaint: COVID19 Suspect/Confirmed Stated Complaint: STOMACH PAIN/SOB/COVID EXPOSURE Nursing Triage Note: PT AMB TO ER WITH C/O ABD PAIN AND SOB. PT WAS EXPOSED TO COVID OVER TWO WEEKS AGO BY A FAMILY MEMBER Source of Information: Patient History of Present Illness Date Seen by Provider: Jun 03, 2021 Time Seen by Provider: 17:59 Initial Comments PT ARRIVES VIA POV FROM HOME HERE FOR COVID TEST PT IS NOT VACCINATED AGAINST COVID-19 DAUGHTER HAS COVID AND PT HAS BEEN AROUND HER FOR THE LAST 2 WEEKS AND ALL OF FAMILY ALSO HAS BEEN EXPOSED NO ONE ELSE IS ILL. STATES SHE HAS BEEN SICK "FOR A DAY OR TWO" C/O PRODUCTIVE COUGH, CLEAR SPUTUM C/O SHORTNESS OF BREATH AT TIMES, BUT NOT NOW C/O LOSS OF TASTE C/O SUBJECTIVE FEVER AND CHILLS C/O NAUSEA AND VOMITED X 1 HAS HAD DIARRHEA "A COUPLE OF TIMES" C/O HEADACHE C/O BODY ACHES C/O FATIGUE ALSO C/O LEFT UPPER QUADRANT PAIN-MOSTLY WITH COUGHING NO CHEST PAIN HAS NOT TAKEN ANYTHING FOR SYMPTOMS AT ANY TIME SYMPTOMS NO DIFFERENT TONIGHT STATES SHE HAS ASTHMA AND HAS AN INHALER BUT HAS NOT BEEN USING IT HAS SLEEP APNEA AND WEARS CPAP AT NIGHT, OTHERWISE DOES NOT NEED HOME O2 PT IS DIABETIC, BUT HAS NOT CHECKED BLOOD SUGARS. PCP: AMIRA Allergies and Home Medications Allergies Coded Allergies: Penicillins (Verified Allergy, Severe, SWELLING IN THROAT, 12/01/17) Patient Home Medication List Home Medication List Reviewed: Yes Albuterol Sulfate (Proventil Hfa) 6.7 Gm Hfa.aer.ad, 2 PUFF IH Q4H PRN for SHORTNESS OF BREATH, (Reported) Entered as Reported by: RIKI BRIAN on 02/28/17957 Last Action: Held Aspirin (Aspir 81) 81 Mg Tablet.dr, 81 MG PO DAILY, (Reported) Entered as Reported by: YANCY WELLS on 04/29/18904 Last Action: Reviewed Gabapentin (Gabapentin) 300 Mg Capsule, 900 MG PO TID, (Reported) Entered as Reported by: YANCY WELLS on 04/29/18904 Last Action: Reviewed Insulin Aspart (Novolog) 100 Unit/1 Ml Susp, 40 UNIT SQ AC, (Reported) Entered as Reported by: YANCY WELLS on 04/29/18906 Last Action: Reviewed Insulin Determir (Levemir) 1,000 Units/10 Ml Soln, 65 UNITS SQ BID, (Reported) Entered as Reported by: YANCY WELLS on 04/29/18906 Last Action: Reviewed Metoprolol Succinate (Metoprolol Succinate) 25 Mg Tab.er.24h, 25 MG PO DAILY, (Reported) Entered as Reported by: YANCY WELLS on 04/29/18904 Last Action: Reviewed Simvastatin (Simvastatin) 10 Mg Tablet, 10 MG PO DAILY, (Reported) Entered as Reported by: YANCY WELLS on 04/29/18903 Last Action: Reviewed Review of Systems Review of Systems Constitutional: see HPI, chills, fever, malaise, weakness EENTM: see HPI, nose congestion Respiratory: see HPI, cough, short of breath Cardiovascular: no symptoms reported Gastrointestinal: see HPI, abdominal pain, diarrhea, nausea, vomiting Genitourinary: no symptoms reported Musculoskeletal: see HPI (BODY ACHES) Skin: no symptoms reported Psychiatric/Neurological: See HPI, Headache Hematologic/Lymphatic: No Symptoms Reported Immunological/Allergic: no symptoms reported Past Neprufx-Ctafsx-Prnpgr Hx Patient Social History Tobacco Use?: No Smoking Status: Never a Smoker (+ SECOND HAND SMOKE-- SMOKES) Use of E-Cig and/or Vaping dev: No Substance use?: No Alcohol Use?: No Pt feels they are or have been: No Immunizations Up To Date Tetanus Booster (TDap): Unknown PED Vaccines UTD: No Influenza Vaccine Up-to-Date: No; Not Current Seasonal Allergies Seasonal Allergies: No Past Medical History Surgery/Hospitalization HX: DM, CATARACTS, HLD Surgeries: Yes (HYST/BSO; CARDIAC CATHS 2012 AND 04/23/2018--NORMAL;CATARACTS) Cardiac, Eye Surgery, Hysterectomy, Oophorectomy Respiratory: Yes Asthma, Sleep Apnea Currently Using CPAP: Yes Cardiac: Yes (NORMAL CARDIAC CATHS 2012 AND 04/29/2018) High Cholesterol Neurological: Yes Headaches /Migraines, Neuropathy Reproductive Disorders: No MANAGER RADIO History: Hysterectomy, Menopausal Genitourinary: Yes (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) Renal Failure Gastrointestinal: Yes Gastroesophageal Reflux Musculoskeletal: Yes Arthritis Endocrine: Yes Diabetes, Insulin dep HEENT: Yes Cataract Loss of Vision: Denies Hearing Impairment: Denies Cancer: No Psychosocial: Yes (NARCOLEPSY) Integumentary: No Blood Disorders: No Adverse Reaction/Blood Tranf: No Family Medical History Alcoholism 03 FATHER, Onset:Unknown 09 SISTER, Onset:Unknown Bone cancer 09 BROTHER Cancer 09 BROTHER, Onset:30's - 40 Cardiovascular disease 03 FATHER 03 MOTHER Chest pain 03 FATHER, Onset:60 years & older 03 MOTHER, Onset:60 years & older Diabetes mellitus 09 SISTER Family history: Cardiovascular disease 03 FATHER, Onset:Unknown 03 MOTHER, Onset:Unknown 09 BROTHER, Onset:Unknown Family history: Diabetes mellitus 03 FATHER 03 MOTHER, Onset:Unknown 09 BROTHER, Onset:Unknown Heart disease 03 MOTHER, Onset:Unknown 09 BROTHER, Onset:Unknown Seizure disorder 09 BROTHER, Onset:Unknown 09 SISTER, Onset:Unknown Stroke 09 SISTER No Family History of: Abdominal aortic aneurysm Hughes's disease Aphasia Cancer of colon Cataract Congenital heart disease Congestive heart failure Cystic fibrosis Dementia Family history: Allergy Family history: Alzheimer's disease Family history: Arthritis Family history: Asthma Family history: Breast disease Family history: Coronary thrombosis Family history: Gastrointestinal disease Family history: Glaucoma Family history: Hypertension Family history: Osteoporosis Family history: Thyroid disorder Headache Hearing loss Hereditary disease History of - anemia History of - disorder History of - respiratory disease History of drug abuse Human immunodeficiency virus (HIV) seropositivity Hypercholesterolemia Infertile Kidney disease Malignant neoplasm of lung Myocardial infarction Parkinson's disease Prostate cancer Psychotic disorder Tuberculosis Visual impairment Heart Disease, Seizures Physical Exam Vital Signs Vital Signs - First Documented 06/03/21 06/03/21 17:45 19:50 Temp 36.7 Pulse 101 Resp 18 B/P (MAP) 151/74 (99) Pulse Ox 93 O2 Delivery Room Air O2 Flow Rate 2.00 Capillary Refill : Less Than 3 Seconds Height, Weight, BMI Height: 5'4.00" Weight: 201lbs. 0.0oz. 91.775923ew; 34.00 BMI Method:Stated General Appearance: No Apparent Distress, WD/WN, Obese, Other (DOES NOT APPEAR ILL OR TO BE IN ANY DISCOMFORT OR DISTRESS. OCCASIONAL DRY COUGH; UNKEMPT, MALODOROOUS) HEENT: PERRL/EOMI, TMs Normal, Normal ENT Inspection, Other (POOR DENTITION, MULTIPLE MISSING TEETH, EXTENSIVE DENTAL DECAY) Neck: Normal Inspection Respiratory: Normal Breath Sounds, No Accessory Muscle Use, No Respiratory Distress Cardiovascular: Regular Rate, Rhythm, No Edema, No JVD, No Murmur, Normal Peripheral Pulses Gastrointestinal: Normal Bowel Sounds, No Organomegaly, No Pulsatile Mass, Soft, Tenderness (MILD LUQ TENDERNESS) Back: No CVA Tenderness Extremity: Normal Inspection Neurologic/Psychiatric: Alert, Oriented x3, No Motor/Sensory Deficits, Normal Mood/Affect, cream beater II-XII Norm as Tested Skin: Normal Color, Warm/Dry Focused Exam Sepsis Stage: Ruled Out Reason for ruling out sepsis: DOES NOT MEET CRITERIA Possible Source: Pulmonary Lactate Level 06/03/21 17:25: Lactic Acid Level 1.07 Time of Focused Exam: 20:00 Respiratory: Normal Breath Sounds, No Accessory Muscle Use, No Respiratory Distress Cardiovascular: Regular Rate, Rhythm, No Edema, No JVD, No Murmur, Normal Peripheral Pulses Capillary Refill: Less Than 3 Seconds Skin: normal color, warm/dry Lactic Acid Level Laboratory Tests Test 06/03/21 17:25 Lactic Acid Level 1.07 MMOL/L (0.50-2.00) Within 3hrs of presentation: Admin fluids, Admin ABX, Blood cultures prior to ABX's, Focus exam, Lactate level Progress/Results/Core Measures Suspected Sepsis SIRS Temperature: Pulse: 101 Respiratory Rate: 18 Laboratory Tests 06/03/21 17:25: White Blood Count 3.7L Blood Pressure 151 /74 Mean: 99 06/03/21 17:25: Lactic Acid Level 1.07 Laboratory Tests 06/03/21 17:25: Creatinine 0.78, Platelet Count 171, Total Bilirubin 1.1H Results/Orders Lab Results Laboratory Tests Test 06/03/21 17:25 06/03/21 17:50 06/03/21 19:53 06/03/21 20:05 Range/Units White Blood Count 3.7 L 4.3-11.0 10^3/uL Red Blood Count 4.75 3.80-5.11 10^6/uL Hemoglobin 13.1 11.5-16.0 g/dL Hematocrit 41 35-52 % Mean Corpuscular Volume 87 80-99 fL Mean Corpuscular Hemoglobin 28 25-34 pg Mean Corpuscular Hemoglobin Concent 32 32-36 g/dL Red Cell Distribution Width 13.7 10.0-14.5 % Platelet Count 171 130-400 10^3/uL Mean Platelet Volume 11.6 9.0-12.2 fL Immature Granulocyte % (Auto) 1 % Neutrophils (%) (Auto) 55 42-75 % Lymphocytes (%) (Auto) 33 12-44 % Monocytes (%) (Auto) 11 0-12 % Eosinophils (%) (Auto) 1 0-10 % Basophils (%) (Auto) 0 0-10 % Neutrophils # (Auto) 2.0 1.8-7.8 10^3/uL Lymphocytes # (Auto) 1.2 1.0-4.0 10^3/uL Monocytes # (Auto) 0.4 0.0-1.0 10^3/uL Eosinophils # (Auto) 0.0 0.0-0.3 10^3/uL Basophils # (Auto) 0.0 0.0-0.1 10^3/uL Immature Granulocyte # (Auto) 0.0 0.0-0.1 10^3/uL Erythrocyte Sedimentation Rate 48 H 0-30 MM/HR D-Dimer 1.01 H 0.00-0.49 UG/ML Sodium Level 139 135-145 MMOL/L Potassium Level 3.7 3.6-5.0 MMOL/L Chloride Level 102 98-107 MMOL/L Carbon Dioxide Level 26 21-32 MMOL/L Anion Gap 11 5-14 MMOL/L Blood Urea Nitrogen 21 H 7-18 MG/DL Creatinine 0.78 0.60-1.30 MG/DL Estimat Glomerular Filtration Rate 85 BUN/Creatinine Ratio 27 Glucose Level 151 H 70-105 MG/DL Lactic Acid Level 1.07 0.50-2.00 MMOL/L Calcium Level 8.4 L 8.5-10.1 MG/DL Corrected Calcium 8.8 8.5-10.1 MG/DL Magnesium Level 2.4 1.6-2.4 MG/DL Total Bilirubin 1.1 H 0.1-1.0 MG/DL Aspartate Amino Transf (AST/SGOT) 38 H 5-34 U/L Alanine Aminotransferase (ALT/SGPT) 33 0-55 U/L Alkaline Phosphatase 74 40-136 U/L Troponin I < 0.028 <0.028 NG/ML C-Reactive Protein High Sensitivity 5.88 H 0.00-0.50 MG/DL B-Type Natriuretic Peptide 15.3 <100.0 PG/ML Total Protein 6.7 6.4-8.2 GM/DL Albumin 3.5 3.2-4.5 GM/DL Amylase Level 40 25-125 U/L Lipase 16 8-78 U/L Procalcitonin 0.07 <0.10 NG/ML Influenza Type A (RT-PCR) Not Detected Not Detecte Influenza Type B (RT-PCR) Not Detected Not Detecte SARS-CoV-2 RNA (RT-PCR) Detected H Not Detecte Urine Color YELLOW Urine Clarity CLEAR Urine pH 5.5 5-9 Urine Specific Floris 1.020 1.016-1.022 Urine Protein NEGATIVE NEGATIVE Urine Glucose (UA) NEGATIVE NEGATIVE Urine Ketones NEGATIVE NEGATIVE Urine Nitrite NEGATIVE NEGATIVE Urine Bilirubin NEGATIVE NEGATIVE Urine Urobilinogen 2.0 < = 1.0 MG/DL Urine Leukocyte Esterase NEGATIVE NEGATIVE Urine RBC (Auto) NEGATIVE NEGATIVE Urine RBC RARE /HPF Urine WBC 0-2 /HPF Urine Squamous Epithelial Cells 2-5 /HPF Urine Crystals NONE /LPF Urine Bacteria FEW H /HPF Urine Casts NONE /LPF Urine Mucus LARGE H /LPF Urine Culture Indicated CULTURE PENDING Blood Gas Puncture Site RIGHT RADIAL Blood Gas Patient Temperature 36.1 Arterial Blood pH 7.42 7.37-7.43 Arterial Blood Partial Pressure CO2 42 35-45 MMHG Arterial Blood Partial Pressure O2 107 H 79-93 MMHG Arterial Blood HCO3 27 23-27 MMOL/L Arterial Blood Total CO2 28.4 21.0-31.0 MMOL/L Arterial Blood Oxygen Saturation 98 94-100 % Arterial Blood Base Excess 2.9 H -2.5-2.5 MMOL/L Leopoldo Test YES-POS Blood Gas Ventilator Setting NO Blood Gas Inspired Oxygen 2L My Orders Orders - LEONARDO HUERTAS DO Covid 19 Inhouse Test (06/03/21 18:00) Influenza A And B By Pcr (06/03/21 18:00) Isolation Central Supply Req (06/03/21 18:00) Ed Iv/Invasive Line Start (06/03/21 18:19) Monitor-Rhythm Ecg Trace Only (06/03/21 18:19) Chest 1 View, Ap/Pa Only (06/03/21 18:19) Amylase (06/03/21 18:19) Cbc With Automated Diff (06/03/21 18:19) Comprehensive Metabolic Panel (06/03/21 18:19) Hs C Reactive Protein (06/03/21 18:19) Fibrin Degradation Products (06/03/21 18:19) Lactic Acid Analyzer (06/03/21 18:19) Lipase (06/03/21 18:19) Magnesium (06/03/21 18:19) Ua Culture If Indicated (06/03/21 18:19) Blood Culture (06/03/21 18:19) Erythrocyte Sedimentation Rate (06/03/21 18:19) Ed Iv/Invasive Line Start (06/03/21 18:19) Ns Iv 1000 Ml (Sodium Chloride 0.9%) (06/03/21 18:30) Ondansetron Injection (Zofran Injectio (06/03/21 18:30) Sputum Culture (06/03/21 18:19) Urine Culture (06/03/21 18:19) Ed Iv/Invasive Line Start (06/03/21 18:19) Ed Iv/Invasive Line Start (06/03/21 18:19) Vital Signs Adult Sepsis Patie Q15M (06/03/21 18:19) O2 (06/03/21 18:19) Remove Rings In Anticipation O (06/03/21 18:19) Bnp Giles (06/03/21 19:04) Ct Angio Chest W (06/03/21 19:04) Ekg Tracing (06/03/21 19:04) Troponin I Paulina (06/03/21 19:04) Iohexol Injection (Omnipaque 350 Mg/Ml 1 (06/03/21 19:15) Received Contrast (Hold Metformin- Contr (06/03/21 19:15) Ns (Ivpb) (Sodium Chloride 0.9% Ivpb Bag (06/03/21 19:15) Procalcitonin (Pct) (06/03/21 19:12) Arterial Blood Gas (06/03/21 19:36) Dexamethasone Injection (Decadron Inje (06/03/21 19:45) Ceftriaxone 1 Gm Pre-Mix (Rocephin 1 Gm (06/03/21 20:30) Azithromycin Injection (Zithromax Inject (06/03/21 20:30) Ed Admission (Communication) (06/03/21 20:18) Medications Given in ED Current Medications Medications Dose Ordered Sig/Arleth Route Start Time Stop Time Status Last Admin Dose Admin Dexamethasone Sodium Phosphate 10 mg ONCE ONCE IV 06/03/21 19:45 06/03/21 19:46 DC 06/03/21 19:57 10 MG Iohexol 100 ml ONCE ONCE IV 06/03/21 19:15 06/03/21 19:16 DC 06/03/21 19:29 77 ML Ondansetron HCl 4 mg ONCE ONCE IVP 06/03/21 18:30 06/03/21 18:31 DC 06/03/21 18:41 4 MG Sodium Chloride 100 ml ONCE ONCE IV 06/03/21 19:15 06/03/21 19:16 DC 06/03/21 19:29 80 ML Vital Signs/I&O 06/03/21 06/03/21 06/03/21 17:45 18:10 19:50 Temp 36.7 Pulse 101 Resp 18 B/P (MAP) 151/74 (99) Pulse Ox 93 100 O2 Delivery Room Air Room Air Nasal Cannula O2 Flow Rate 2.00 Capillary Refill : Less Than 3 Seconds Blood Pressure Mean: 99 Progress Note : Progress Note PPE WORN AT ALL TIMES COVID-19 AND FLU TESTING DONE GIVEN IV FLUIDS AND ZOFRAN. O2 SATS 91-93% ON ROOM AIR ON RETURN FROM CT O2 SATS 85-87% ON ROOM AIR. PT DOES NOT C/O DYSPNEA OR APPEAR DYSPNEIC, PLACED ON O2 AT 2L/NC AND O2 SATS UP TO 98-100% ECG Initial ECG Impression Date: Jun 03, 2021 Initial ECG Impression Time: 19:16 Initial ECG Rate: 78 Initial ECG Rhythm: Normal Sinus Diagnostic Imaging Comments CXR--PER RADIOLOGIST REPORT AT 1903 FINDINGS: The heart is enlarged. There is vascular congestion. There are bilateral pulmonary opacities. The pattern is suspicious for failure or hypervolemia. In addition, there is some right perihilar and basilar more localized opacity favored to reflect partial atelectasis. IMPRESSION: Increased heart size, venous caliber and probable mild interstitial edema. No apparent pleural fluid. There is some likely atelectatic changes in the right infrahilar region. CT CHEST ANGIOGRAM AT 1949 FINDINGS: There are no intraluminal pulmonary arterial filling defects identified. There are no findings of pulmonary arterial embolus. The thoracic aorta is patent, nonaneurysmal and nonacute. This patient has five lobe patchy groundglass infiltrates, while nonspecific raise the question of Covid pneumonia, correlate clinically. There are some perihilar and bibasilar zones of partial atelectasis. There is no pleural fluid. There is no pneumothorax or pneumomediastinum. No acute chest wall pathology. The patient has a tiny hiatal hernia. Upper abdomen shows hepatic steatosis with no acute appearing abnormality. IMPRESSION: 1. No PE or acute aortic disease. Multifocal five lobe groundglass infiltrates raise the question of viral pneumonia. No pleural fluid, pneumothorax or mediastinal gas. 2. Hepatic steatosis. Reviewed: Reviewed by Me Departure Communication (Admissions) 2013--SPOKE WITH DR. JONES, HOSPITALIST FOR [facility] [place]. SHE WILL DO ADMIT ORDERS Impression Primary Impression: Pneumonia due to COVID-19 virus Additional Impressions: Acute respiratory failure due to COVID-19 IDDM (insulin dependent diabetes mellitus) History of asthma Obesity Disposition: ADMITTED INPATIENT Condition: Stable Admissions Decision to Admit Reason: Admit from ER (General) Decision to Admit/Date: Jun 03, 2021 Time/Decision to Admit Time: 20:15 Departure-Patient Inst. Referrals: [facility]/BLANK (PCP) Primary Care Physician JEFF BELTRÁN APRN (Family) Primary Care Physician LEONARDO HUERTAS DO Jun 03, 2021 18:06
[2021-06-03] MEDS ORDERED: ONDANSETRON 4 MG/2 ML (SDV) Z0FRAN IVP ONE (18:30)
[2021-06-03] MEDS ORDERED: NS IV 1000 ML 1,000 ML IV SCH (18:30)
[2021-06-03 18:35] LABS: BASOPHILS % (AUTO) 0 % (0-10); EOSINOPHILS % (AUTO) 1 % (0-10); HEMATOCRIT 41 % (35-52); HEMOGLOBIN 13.1 g/dL (11.5-16.0); LYMPHOCYTES # (AUTO) 1.2 10^3/uL (1.0-4.0); LYMPHOCYTES % (AUTO) 33 % (12-44); MEAN CORPUSCULAR HEMOGLOBIN 28 pg (25-34); MEAN CORPUSCULAR HGB CONC 32 g/dL (32-36); MEAN CORPUSCULAR VOLUME 87 fL (80-99); MEAN PLATELET VOLUME 11.6 fL (9.0-12.2); MONOCYTES # (AUTO) 0.4 10^3/uL (0.0-1.0); MONOCYTES % (AUTO) 11 % (0-12); NEUTROPHILS % (AUTO) 55 % (42-75); PLATELET COUNT 171 10^3/uL (130-400); WHITE BLOOD COUNT 3.7 10^3/uL (4.3-11.0)
[2021-06-03 18:50] LABS: ALBUMIN 3.5 GM/DL (3.2-4.5); POTASSIUM 3.7 MMOL/L (3.6-5.0)
[2021-06-03 18:51] LABS: CALCIUM 8.4 MG/DL (8.5-10.1)
[2021-06-03 18:53] LABS: TOTAL PROTEIN 6.7 GM/DL (6.4-8.2)
[2021-06-03 18:54] LABS: BILIRUBIN,TOTAL 1.1 MG/DL (0.1-1.0)
[2021-06-03 18:56] LABS: CREATININE SERUM 0.78 MG/DL (0.60-1.30)
[2021-06-03 18:59] LABS: MAGNESIUM 2.4 MG/DL (1.6-2.4)
--- NOTE | 2021-06-03 19:02 | Diagnostic Imaging Report ---
INDICATION: Cough and fever. COMPARISON: 04/18/2018. FINDINGS: The heart is enlarged. There is vascular congestion. There are bilateral pulmonary opacities. The pattern is suspicious for failure or hypervolemia. In addition, there is some right perihilar and basilar more localized opacity favored to reflect partial atelectasis. IMPRESSION: Increased heart size, venous caliber and probable mild interstitial edema. No apparent pleural fluid. There is some likely atelectatic changes in the right infrahilar region. Dictated by: Dictated on workstation # [id number]
[2021-06-03 19:11] LABS: ERYTHROCYTE SEDIMENTATION RATE 48 MM/HR (0-30)
[2021-06-03] MEDS ORDERED: HOLD METFORMIN - RECEIVED CONTRAST 20 ML VIAL IV SCH (19:15)
[2021-06-03] MEDS ORDERED: NS 100 ML (IVPB) BAG IV ONE (19:15)
[2021-06-03] MEDS ORDERED: IOHEXOL 350 MG/ML 100 ML (OMNIPAQUE 350) VIAL IV ONE (19:15)
--- NOTE | 2021-06-03 19:44 | Diagnostic Imaging Report ---
PROCEDURE: CT angiography of the chest with contrast. TECHNIQUE: Multiple contiguous axial images were obtained through the chest after uneventful bolus administration of intravenous contrast. 3D reconstructed CTA MIP acquisitions were also performed. Auto Exposure Controls were utilized during the CT exam to meet ALARA standards for radiation dose reduction. INDICATION: Shortness of air, abdominal pain. History of a post cardiac procedure. FINDINGS: There are no intraluminal pulmonary arterial filling defects identified. There are no findings of pulmonary arterial embolus. The thoracic aorta is patent, nonaneurysmal and nonacute. This patient has five lobe patchy groundglass infiltrates, while nonspecific raise the question of Covid pneumonia, correlate clinically. There are some perihilar and bibasilar zones of partial atelectasis. There is no pleural fluid. There is no pneumothorax or pneumomediastinum. No acute chest wall pathology. The patient has a tiny hiatal hernia. Upper abdomen shows hepatic steatosis with no acute appearing abnormality. IMPRESSION: 1. No PE or acute aortic disease. Multifocal five lobe groundglass infiltrates raise the question of viral pneumonia. No pleural fluid, pneumothorax or mediastinal gas. 2. Hepatic steatosis. Dictated by: Dictated on workstation # [id number]
[2021-06-03 19:57] LABS: BILIRUBIN,URINE NEGATIVE (NEGATIVE); CLARITY,URINE CLEAR; COLOR,URINE YELLOW; GLUCOSE, URINE (UA) NEGATIVE (NEGATIVE); KETONES,URINE NEGATIVE (NEGATIVE); LEUKOCYTE ESTERASE ,URINE NEGATIVE (NEGATIVE); NITRITE,URINE NEGATIVE (NEGATIVE); PH,URINE 5.5 (5-9); PROTEIN,URINE NEGATIVE (NEGATIVE)
[2021-06-03 20:05] LABS: BACTERIA,URINE FEW /HPF; RBC,URINE RARE /HPF; WBC,URINE 0-2 /HPF
[2021-06-03 20:21] LABS: ABG BASE EXCESS 2.9 MMOL/L (-2.5-2.5); ABG OXYGEN SATURATION 98 % (94-100); ABG PCO2 42 MMHG (35-45); ABG PH 7.42 (7.37-7.43); ABG PO2 107 MMHG (79-93); ABG TCO2 28.4 MMOL/L (21.0-31.0)
[2021-06-03 20:22] LABS: ALLENS TEST YES-POS; INSPIRED O2 2L; PATIENT TEMP 36.1; VENTILATOR NO
[2021-06-03] MEDS ORDERED: AZITHROMYCIN INJECTION 500 MG in NS (IVPB) 250 ML IV ONE (20:30)
[2021-06-03] MEDS ORDERED: cefTRIAXone 1 GM PRE-MIX 50 ML IV ONE (20:30)
[2021-06-03] MEDS ORDERED: diphenhydrAMINE 50 MG/ML INJ (BENADRYL) IVP PRN (22:15)
[2021-06-03] MEDS ORDERED: MELATONIN 3 MG TABLET PO PRN (22:15)
[2021-06-03] MEDS ORDERED: diphenhydrAMINE 25 MG TAB (BENADRYL) PO PRN (22:15)
[2021-06-03] MEDS ORDERED: BISACODYL 10 MG SUPP (DULCOLAX) PR PRN (22:15)
[2021-06-03] MEDS ORDERED: polyethylene glycoL POWDER 17 GM (MIRALAX) PACK PO PRN (22:15)
[2021-06-03] MEDS ORDERED: LACTULOSE SYRUP 10GM/15ML (ENULOSE) 30ML UDC PO PRN (22:15)
[2021-06-03] MEDS ORDERED: CALCIUM CARBONATE 500 MG (TUMS) TAB.CHEW PO PRN (22:15)
[2021-06-03] MEDS ORDERED: ONDANSETRON 4 MG/2 ML (SDV) Z0FRAN IV PRN (22:15)
[2021-06-03] MEDS ORDERED: ANTACID SUSP 30 ML UDC (MYLANTA) PO PRN (22:15)
[2021-06-03] MEDS ORDERED: ALPRAZolam 0.25 MG (XANAX) TAB PO PRN (22:15)
[2021-06-03] MEDS ORDERED: MILK OF MAGNESIA 400 MG/5 ML 30 ML UDC PO PRN (22:15)
[2021-06-03] MEDS ORDERED: inSUlin (REGULAR) HUMAN 1 UNIT/0.01 ML (CHARGE PER UNIT) SC PRN (22:15)
[2021-06-03] MEDS ORDERED: NALOXONE 0.4 MG/ML 1 ML (NARCAN) VIAL IV PRN (22:15)
[2021-06-03] MEDS ORDERED: morphine INJ 4 MG/ML 1 ML (VIAL/SYRINGE) IV PRN (22:15)
[2021-06-03] MEDS ORDERED: guaiFENesin/CODEINE (ROBITUSSIN AC) 10ML UDC PO PRN (22:15)
[2021-06-03] MEDS ORDERED: ONDANSETRON 4 MG (ZOFRAN) ORAL DISSOLVE TAB PO PRN (22:15)
[2021-06-03] MEDS ORDERED: NS IV 1000 ML 1,000 ML ONE (22:39)
[2021-06-03 23:14] VITALS: BP 151/74
[2021-06-03] MEDS ORDERED: RT-ALBUTEROL HFA 8.5 GM INHALER IH PRN (23:30)
[2021-06-03 23:56] VITALS: BP 111/65
[2021-06-04] MEDS ORDERED: RT-ALBUTEROL HFA 8.5 GM INHALER IH SCH (02:00)
[2021-06-04 03:25] VITALS: BP 117/69
[2021-06-04] MEDS: inSUlin ASPART (NovoLOG) 1 UNIT/0.01 ML (CHARGE PER UNIT) SC SCH ×7 (06:42→20:29)
[2021-06-04 06:50] LABS: BASOPHILS % (AUTO) 0 % (0-10); EOSINOPHILS % (AUTO) 0 % (0-10); HEMATOCRIT 41 % (35-52); HEMOGLOBIN 12.8 g/dL (11.5-16.0); LYMPHOCYTES # (AUTO) 0.7 10^3/uL (1.0-4.0); LYMPHOCYTES % (AUTO) 29 % (12-44); MEAN CORPUSCULAR HEMOGLOBIN 28 pg (25-34); MEAN CORPUSCULAR HGB CONC 32 g/dL (32-36); MEAN CORPUSCULAR VOLUME 87 fL (80-99); MEAN PLATELET VOLUME 11.5 fL (9.0-12.2); MONOCYTES # (AUTO) 0.2 10^3/uL (0.0-1.0); MONOCYTES % (AUTO) 6 % (0-12); NEUTROPHILS # (AUTO) 1.6 10^3/uL (1.8-7.8); NEUTROPHILS % (AUTO) 65 % (42-75); PLATELET COUNT 180 10^3/uL (130-400); WHITE BLOOD COUNT 2.4 10^3/uL (4.3-11.0)
--- NOTE | 2021-06-04 07:03 | History & Physical-Hospitalist ---
History of Present Illness HPI/Chief Complaint Chief complaint: Acute hypoxic respiratory failure History of present illness: This is a 61-year-old white female with insulin- dependent diabetes with high insulin resistance who presented to the ER with shortness of breath. She reports that she has been feeling unwell for several days and her has been ill also but he did not want patient to go to the ER until she could no longer manage at home she was found to have O2 sat in the 80% range. Patient is currently requiring oxygen supplementation along with Decadron and IV antibiotics. I told her that we will order incentive spirometer and for her to lie on her side or prone. Source: patient Exam Limitations: no limitations Date Seen 06/04/21 Time Seen by a Provider: 12:30 Attending Physician Chica Cohen DO [facility] Referring Physician Date of Admission Jun 03, 2021 at 20:19 Home Medications & Allergies Home Medications Reviewed patient Home Medication Reconciliation performed by pharmacy medication reconciliations customer support technician and/or nursing. Patients Allergies have been reviewed. Allergies Allergies Coded Allergies Penicillins (Verified Allergy, Severe, SWELLING IN THROAT, 12/01/17) Past Ehjtorq-Osekrw-Ayuvbj Hx Patient Social History Marrital Status: Employed/Student: unemployed Tobacco Use?: No Smoking Status: Former Smoker Smokeless Tobacco Frequency: Never a User Use of E-Cig and/or Vaping dev: No Use of E-Cig and/or Vaping Jose J: Never a User Substance use?: No Alcohol Use?: No Pt feels they are or have been: No Immunizations Up To Date Date of Influenza Vaccine: Feb 19, 2017 Tetanus Booster (TDap): More Than 5 Years Hepatitis A: Yes Hepatitis B: Yes PED Vaccines UTD: No Date of Pneumonia Vaccine: Feb 19, 2017 Seasonal Allergies Seasonal Allergies: No Current Status status: Unknown status: No Advance Directives: No Communicates: Verbally Primary Language: Thai Preferred Spoken Language: Thai Is interpretation needed?: No Sensory deficits: Vision impairment Implanted or Applied Medical D: None Past Medical History Surgeries: Cardiac, Eye Surgery, Hysterectomy, Oophorectomy Asthma, Sleep Apnea Currently Using CPAP: Yes High Cholesterol Headaches /Migraines, 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, Menopausal Renal Failure Gastroesophageal Reflux Arthritis Diabetes, Insulin dep Cataract Loss of Vision: Denies Hearing Impairment: Denies Blood Disorders: No Adverse Reaction/Blood Tranf: No IDDM Family Medical History Alcoholism 03 FATHER, Onset:Unknown 09 SISTER, Onset:Unknown Bone cancer 09 BROTHER Cancer 09 BROTHER, Onset:30's - 40 Cardiovascular disease 03 FATHER 03 MOTHER Chest pain 03 FATHER, Onset:60 years & older 03 MOTHER, Onset:60 years & older Diabetes mellitus 09 SISTER Family history: Cardiovascular disease 03 FATHER, Onset:Unknown 03 MOTHER, Onset:Unknown 09 BROTHER, Onset:Unknown Family history: Diabetes mellitus 03 FATHER 03 MOTHER, Onset:Unknown 09 BROTHER, Onset:Unknown Heart disease 03 MOTHER, Onset:Unknown 09 BROTHER, Onset:Unknown Seizure disorder 09 BROTHER, Onset:Unknown 09 SISTER, Onset:Unknown Stroke 09 SISTER No Family History of: Abdominal aortic aneurysm Dent's disease Aphasia Cancer of colon Cataract Congenital heart disease Congestive heart failure Cystic fibrosis Dementia Family history: Allergy Family history: Alzheimer's disease Family history: Arthritis Family history: Asthma Family history: Breast disease Family history: Coronary thrombosis Family history: Gastrointestinal disease Family history: Glaucoma Family history: Hypertension Family history: Osteoporosis Family history: Thyroid disorder Headache Hearing loss Hereditary disease History of - anemia History of - disorder History of - respiratory disease History of drug abuse Human immunodeficiency virus (HIV) seropositivity Hypercholesterolemia Infertile Kidney disease Malignant neoplasm of lung Myocardial infarction Parkinson's disease Prostate cancer Psychotic disorder Tuberculosis Visual impairment Heart Disease, Seizures Review of Systems Constitutional: see HPI EENTM: no symptoms reported Respiratory: cough, dyspnea on exertion Cardiovascular: no symptoms reported Gastrointestinal: no symptoms reported Genitourinary: no symptoms reported Musculoskeletal: back pain Skin: no symptoms reported Psychiatric/Neurological: Depressed All Other Systems Reviewed Negative Unless Noted: Yes Physical Exam Physical Exam Vital Signs Vital Signs - First Documented 06/03/21 06/03/21 06/03/21 17:45 19:50 23:14 Temp 36.7 Pulse 101 Resp 18 B/P (MAP) 151/74 (99) Pulse Ox 93 O2 Delivery Room Air O2 Flow Rate 2.00 FiO2 24 Capillary Refill : Less Than 3 Seconds Height, Weight, BMI Height: 5'4.00" Weight: 201lbs. 0.0oz. [id number]; 34.79 BMI Method:Stated General Appearance: No Apparent Distress, Chronically ill, Obese Eyes: Right Eye Normal Inspection, Right Eye PERRL HEENT: PERRL/EOMI, Normal ENT Inspection, Pharynx Normal, Moist Mucous Membranes Neck: Full Range of Motion, Normal Inspection, Non Tender Respiratory: Chest Non Tender, Lungs Clear, No Respiratory Distress, Decreased Breath Sounds Cardiovascular: Regular Rate, Rhythm, No Edema, No Gallop, No JVD, No Murmur, Normal Peripheral Pulses Gastrointestinal: Normal Bowel Sounds, No Organomegaly, No Pulsatile Mass, Non Tender, Soft Back: Normal Inspection, No CVA Tenderness, No Vertebral Tenderness Extremity: Normal Capillary Refill, Normal Inspection, Normal Range of Motion, Non Tender, No Calf Tenderness, No Pedal Edema Neurologic/Psychiatric: Alert, Oriented x3, No Motor/Sensory Deficits, transmitter engineer in charge II- XII Norm as Tested, Depressed Affect Skin: Normal Color, Warm/Dry Lymphatic: No Adenopathy Results Results/Procedures Labs Laboratory Tests 06/03/21 17:25 06/04/21 06:10 Patient resulted labs reviewed. Assessment/Plan Admission Diagnosis Assessment: Acute hypoxic respiratory failure COVID-19 pneumonia Insulin-dependent diabetes with insulin resistance Obesity BMI 35 MARIOLA Hypertension Hyperlipidemia Depression Chronic kidney disease Plan: COVID-19 protocol Supportive care High risk for intubation Admission Status: Inpatient Order (span 2 midnights) Reason for Inpatient Admission: resp failure CHICA COHEN DO Jun 04, 2021 07:03
[2021-06-04 07:04] LABS: ALBUMIN 3.3 GM/DL (3.2-4.5); POTASSIUM 4.3 MMOL/L (3.6-5.0)
[2021-06-04 07:07] LABS: TOTAL PROTEIN 6.4 GM/DL (6.4-8.2)
[2021-06-04 07:08] LABS: BILIRUBIN,TOTAL 0.9 MG/DL (0.1-1.0)
[2021-06-04 07:10] LABS: CREATININE SERUM 0.67 MG/DL (0.60-1.30)
[2021-06-04] MEDS ORDERED: FLU QUADRIvalent (3YOA+) 60 mcg/0.5 ml 2021-22(AFLURIA) IM ONE (07:15)
[2021-06-04] MEDS: DOCUSATE SODIUM 100 MG (COLACE) CAP PO SCH ×2 (08:14→21:05)
[2021-06-04] MEDS: GABAPENTIN 300 MG (NEURONTIN) CAP PO SCH ×3 (08:14→21:04)
[2021-06-04] MEDS: ENOXAPARIN 40 MG/0.4 ML (LOVENOX) SYR SC SCH (08:14)
[2021-06-04] MEDS: ASPIRIN E.C. 81 MG (ECOTRIN) TAB PO SCH (08:14)
[2021-06-04] MEDS: SENNOSIDES 8.6 MG (SENOKOT) TAB PO SCH ×2 (08:14→21:05)
[2021-06-04 08:18] VITALS: BP 111/68
[2021-06-04 11:21] VITALS: BP 130/72
[2021-06-04 15:59] VITALS: BP 115/68
[2021-06-04 19:13] VITALS: BP 109/69
[2021-06-04] MEDS ORDERED: cefTRIAXone 1 GM PRE-MIX 50 ML IV SCH (21:00)
[2021-06-04] MEDS ORDERED: AZITHROMYCIN INJECTION 500 MG in NS (IVPB) 250 ML IV SCH (21:00)
[2021-06-04 23:48] VITALS: BP 100/62
[2021-06-05 03:49] VITALS: BP 101/58
[2021-06-05] MEDS: inSUlin ASPART (NovoLOG) 1 UNIT/0.01 ML (CHARGE PER UNIT) SC SCH ×5 (05:46→20:23)
[2021-06-05 06:36] LABS: BASOPHILS % (AUTO) 0 % (0-10); EOSINOPHILS % (AUTO) 0 % (0-10); HEMATOCRIT 36 % (35-52); HEMOGLOBIN 11.6 g/dL (11.5-16.0); LYMPHOCYTES # (AUTO) 1.8 10^3/uL (1.0-4.0); LYMPHOCYTES % (AUTO) 35 % (12-44); MEAN CORPUSCULAR HEMOGLOBIN 28 pg (25-34); MEAN CORPUSCULAR HGB CONC 32 g/dL (32-36); MEAN CORPUSCULAR VOLUME 89 fL (80-99); MEAN PLATELET VOLUME 11.7 fL (9.0-12.2); MONOCYTES # (AUTO) 0.5 10^3/uL (0.0-1.0); MONOCYTES % (AUTO) 10 % (0-12); NEUTROPHILS # (AUTO) 2.7 10^3/uL (1.8-7.8); NEUTROPHILS % (AUTO) 53 % (42-75); PLATELET COUNT 221 10^3/uL (130-400)
[2021-06-05 06:52] LABS: BILIRUBIN,TOTAL 0.9 MG/DL (0.1-1.0); CALCIUM 8.2 MG/DL (8.5-10.1); CREATININE SERUM 0.72 MG/DL (0.60-1.30); POTASSIUM 4.1 MMOL/L (3.6-5.0); TOTAL PROTEIN 5.7 GM/DL (6.4-8.2)
[2021-06-05 07:30] VITALS: BP 114/73
[2021-06-05] MEDS: SENNOSIDES 8.6 MG (SENOKOT) TAB PO SCH ×2 (08:59→20:24)
[2021-06-05] MEDS: ASPIRIN E.C. 81 MG (ECOTRIN) TAB PO SCH (08:59)
[2021-06-05] MEDS: GABAPENTIN 300 MG (NEURONTIN) CAP PO SCH ×3 (08:59→20:23)
[2021-06-05] MEDS: DOCUSATE SODIUM 100 MG (COLACE) CAP PO SCH ×2 (08:59→20:24)
[2021-06-05] MEDS: ENOXAPARIN 40 MG/0.4 ML (LOVENOX) SYR SC SCH (09:00)
[2021-06-05 11:08] VITALS: BP 103/62
[2021-06-05] MEDS: ACETAMINOPHEN 325 MG TABLET PO PRN ×2 (11:30→20:23)
--- NOTE | 2021-06-05 12:11 | Progress Note - Hospitalist ---
DONALD BRUNSON 06/05/21 1211: Subjective HPI/CC On Admission Date Seen by Provider: Jun 05, 2021 Time Seen by Provider: 10:45 Chief complaint: Acute hypoxic respiratory failure History of present illness: This is a 61-year-old white female with insulin- dependent diabetes with high insulin resistance who presented to the ER with shortness of breath. She reports that she has been feeling unwell for several days and her has been ill also but he did not want patient to go to the ER until she could no longer manage at home she was found to have O2 sat in the 80% range. Patient is currently requiring oxygen supplementation along with Decadron and IV antibiotics. I told her that we will order incentive spirometer and for her to lie on her side or prone. Subjective/Events-last exam Patient is walking around room and getting situated in bed unassisted during encounter. She is alert and conversing. She states that she is feeling ok. She reports some dyspnea with exertion, denies dyspnea at rest. She denies having a bowel movement since admission. She states she has not had problems with urinating. She denies dizziness or unsteadiness. Denies nausea, vomiting, or abdominal pain. She states at home her blood glucose level varies throughout the day. She is currently using 2.0L nasal cannula, SpO2 97%. Labs and vitals appear stable. HR 53, will continue to monitor. Medications have been reviewed. Adjustments to insulin regimen have been made. Levemir 15 units BID, sliding scale Insulin Aspart to prevent hypoglycemic episodes. Review of Systems HEENT: No Head Aches Pulmonary: Dyspnea (with exertion) Cardiovascular: No: Chest Pain, Edema Gastrointestinal: No: Nausea, Vomiting, Abdominal Pain, Diarrhea Focused Exam Lactate Level 06/03/21 17:25: Lactic Acid Level 1.07 Time of Focused Exam: 20:00 Objective Exam Vital Signs Vital Signs Date Time Temp Pulse Resp B/P (MAP) Pulse Ox O2 Delivery O2 Flow Rate FiO2 06/05/21 11:08 36.6 61 18 103/62 (76) 94 Nasal Cannula 2.00 06/03/21 23:14 24 Capillary Refill : Less Than 3 Seconds General Appearance: No Apparent Distress Respiratory: No Accessory Muscle Use, No Respiratory Distress; No Crackles; Decreased Breath Sounds (throughout); No Wheezing; Other (course breath sounds throughout) Cardiovascular: Regular Rate, Rhythm Gastrointestinal: Normal Bowel Sounds, Non Tender, Soft Extremity: Pedal Edema (trace bilaterally) Neurologic/Psychiatric: Alert Skin: Normal Color, Warm/Dry Results/Procedures Lab Laboratory Tests 06/05/21 05:55 Patient resulted labs reviewed. Assessment/Plan Assessment and Plan Assess & Plan/Chief Complaint Assessment: Acute hypoxic respiratory failure COVID-19 PNA Insulin-dependent diabetes with insulin resistance BMI 35 MARIOLA HTN Hyperlipidemia Depression CKD DVT prophylaxis Plan: Supplemental O2 Azithromycin & Ceftriaxone Decadron injection Albuterol inhaler Lovenox Levemir 15units BID Novolog sliding scale High risk for intubation Diabetic diet as tolerated Resume home medications CHICA JONES DO 06/06/21 0525: Subjective Subjective/Events-last exam Pt is doing a lot better Remains on 2L Blood sugars are very low so we will hold insulin No pain is reported Overall improved Review of Systems General: Fatigue, Malaise Objective Exam General Appearance: No Apparent Distress, Chronically ill Respiratory: No Accessory Muscle Use, No Respiratory Distress, Decreased Breath Sounds (throughout) Cardiovascular: Regular Rate, Rhythm Assessment/Plan Assessment and Plan Assess & Plan/Chief Complaint Lower insulin Supportive care Monitor closely Supervisory-Addendum Brief Verification & Attestation Participated in pt care: history, MDM, physical Personally performed: exam, history, MDM, supervision of care Care discussed with: Medical Student Procedures: n/a Results interpretation: Verified all documentation Verification and Attestation of Medical Student E/M Service A medical student performed and documented this service in my presence. I reviewed and verified all information documented by the medical student and made modifications to such information, when appropriate. I personally performed the physical exam and medical decision making. Chica Jones Jun 06, 2021,05:24 DONALD BRUNSON Jun 05, 2021 12:11 CHICA JONES DO Jun 06, 2021 05:25
[2021-06-05] MEDS ORDERED: INSU200I4 SC (12:54)
[2021-06-05] MEDS ORDERED: GABA300C PO (13:04)
[2021-06-05] MEDS ORDERED: ATOR40TA70 PO (13:04)
[2021-06-05] MEDS ORDERED: INSU100I48 SC (13:04)
[2021-06-05] MEDS ORDERED: ASPI-1238 PO (13:04)
[2021-06-05 16:00] VITALS: BP 112/65
[2021-06-05 19:37] VITALS: BP 148/73
[2021-06-06] VITALS: BP 117/70
[2021-06-06 03:35] VITALS: BP 103/66
[2021-06-06] MEDS: inSUlin ASPART (NovoLOG) 1 UNIT/0.01 ML (CHARGE PER UNIT) SC SCH ×2 (05:32→12:15)
[2021-06-06 05:45] LABS: BASOPHILS % (AUTO) 0 % (0-10); EOSINOPHILS % (AUTO) 1 % (0-10); HEMATOCRIT 38 % (35-52); HEMOGLOBIN 12.1 g/dL (11.5-16.0); LYMPHOCYTES # (AUTO) 1.9 10^3/uL (1.0-4.0); LYMPHOCYTES % (AUTO) 39 % (12-44); MEAN CORPUSCULAR HEMOGLOBIN 28 pg (25-34); MEAN CORPUSCULAR HGB CONC 32 g/dL (32-36); MEAN CORPUSCULAR VOLUME 87 fL (80-99); MEAN PLATELET VOLUME 11.5 fL (9.0-12.2); MONOCYTES # (AUTO) 0.5 10^3/uL (0.0-1.0); MONOCYTES % (AUTO) 10 % (0-12); NEUTROPHILS # (AUTO) 2.3 10^3/uL (1.8-7.8); NEUTROPHILS % (AUTO) 49 % (42-75); PLATELET COUNT 229 10^3/uL (130-400); WHITE BLOOD COUNT 4.8 10^3/uL (4.3-11.0)
[2021-06-06 06:05] LABS: ALBUMIN 3.2 GM/DL (3.2-4.5); CALCIUM 8.4 MG/DL (8.5-10.1); CREATININE SERUM 0.74 MG/DL (0.60-1.30); POTASSIUM 4.7 MMOL/L (3.6-5.0); TOTAL PROTEIN 5.9 GM/DL (6.4-8.2)
[2021-06-06] MEDS: SENNOSIDES 8.6 MG (SENOKOT) TAB PO SCH (09:30)
[2021-06-06] MEDS: ENOXAPARIN 40 MG/0.4 ML (LOVENOX) SYR SC SCH (09:30)
[2021-06-06] MEDS: ASPIRIN E.C. 81 MG (ECOTRIN) TAB PO SCH (09:30)
[2021-06-06] MEDS: GABAPENTIN 300 MG (NEURONTIN) CAP PO SCH ×2 (09:31→12:14)
[2021-06-06] MEDS: DOCUSATE SODIUM 100 MG (COLACE) CAP PO SCH (09:31)
[2021-06-06] MEDS ORDERED: DEXA6TAB6 PO (10:39)
[2021-06-06] MEDS ORDERED: INSU100I48 SC (10:39)
[2021-06-06] MEDS ORDERED: INSU200I4 SC (10:39)
--- NOTE | 2021-06-06 10:53 | Progress Note - Hospitalist ---
DONALD BRUNSON 06/06/21 1053: Subjective HPI/CC On Admission Date Seen by Provider: Jun 06, 2021 Time Seen by Provider: 10:00 Chief complaint: Acute hypoxic respiratory failure History of present illness: This is a 61-year-old white female with insulin- dependent diabetes with high insulin resistance who presented to the ER with shortness of breath. She reports that she has been feeling unwell for several days and her has been ill also but he did not want patient to go to the ER until she could no longer manage at home she was found to have O2 sat in the 80% range. Patient is currently requiring oxygen supplementation along with Decadron and IV antibiotics. I told her that we will order incentive spirometer and for her to lie on her side or prone. Subjective/Events-last exam Patient is reclined in bed at time of encounter. She states her breathing feels better today. She states her cough has also improved and occasionally coughs up clear sputum. She reports mild dyspnea with exertion. She had a headache last night that has since resolved. It was located across her forehead. She reports nausea throughout the night when she would get out of bed to use the restroom. She does not currently feel nauseous. Denies vomiting, abdominal pain, or diarrhea. She has not yet had a bowel movement but states this is not unusual for her. She states at home she usually requires stool softeners to have a bowel movement. SpO2: 96% with 2.0L nasal cannula EKG: sinus rhythm Plan for today: Home oxygen evaluation and likely discharge. Brief hospital course: Ginna Toribio is a 61 year old white female who presented to the ED on 06/03/2021 with shortness of breath and abdominal pain. She has a past medical history significant for insulin-dependent diabetes mellitus, asthma, hyperlipidemia, MARIOLA, GERD, CKD, and depression. She had been feeling unwell for several days and had been exposed to COVID-19 two weeks prior. She reported her had also been ill. Her SpO2 was in the 80% range; therapies of supplemental oxygen, Decadron injection, IV antibiotics of Azithromycin and Ceftriaxone, lateral recumbent/prone positioning, and incentive spirometry were initiated. CXR demonstrated: Increased heart size, venous caliber and probable mild interstitial edema, no apparent pleural fluid, there is some likely atelectatic changes in the right infrahilar region. CTA of chest/thorax demonstrated: No PE or acute aortic disease. Multifocal five lobe ground-glass infiltrates raise the question of viral pneumonia. No pleural fluid, pneumothorax or mediastinal gas. Hepatic steatosis. Patient was admitted to the floor. Throughout the patient's stay, insulin therapy and bowel regimen were initiated. Patient's oxygen requirements and status were closely monitored. Home medications with the exception of Atorvastatin were resumed due to elevated AST. EKG demonstrated sinus rhythm. Patient's symptoms continued to improve, and she remained stable throughout the duration of her stay. Home oxygen evaluation was ordered prior to discharge of the patient. This is a brief description of the patient's stay and pertains pertinent aspects of her care. Full description of care can be found in the patient's chart. Date of admission: 06/03/2021 Date of discharge: 06/06/2021 Attending physician: Dr. 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, Depression Consultations: None Procedures: None Review of Systems General: Appetite HEENT: No Head Aches Pulmonary: Dyspnea (with exertion), Cough (mild intermittent cough ) Cardiovascular: No: Chest Pain, Edema Gastrointestinal: No: Nausea, Vomiting, Abdominal Pain, Diarrhea Neurological: No: Weakness Focused Exam Lactate Level 06/03/21 17:25: Lactic Acid Level 1.07 Time of Focused Exam: 20:00 Objective Exam Vital Signs Vital Signs Date Time Temp Pulse Resp B/P (MAP) Pulse Ox O2 Delivery O2 Flow Rate FiO2 06/06/21 09:38 92 Nasal Cannula 2.00 06/06/21 03:35 36.6 53 20 103/66 (78) 06/03/21 23:14 24 Capillary Refill : Less Than 3 Seconds General Appearance: No Apparent Distress Respiratory: No Accessory Muscle Use, No Respiratory Distress, Other (mildly coarse breath sounds throughout) Cardiovascular: Regular Rate, Rhythm, No Edema, No Murmur, Normal Peripheral Pulses (left radial pulse +2) Gastrointestinal: Normal Bowel Sounds, Non Tender, Soft Extremity: No Pedal Edema Neurologic/Psychiatric: Alert Skin: Normal Color, Warm/Dry Results/Procedures Lab Laboratory Tests 06/06/21 05:33 Patient resulted labs reviewed. Assessment/Plan Assessment and Plan Assess & Plan/Chief Complaint Assessment: Acute hypoxic respiratory failure COVID-19 PNA Insulin-dependent diabetes with insulin resistance BMI 35 MARIOLA HTN Hyperlipidemia Depression CKD DVT prophylaxis Plan: Home O2 evaluation, discharge home Supplemental O2 Azithromycin & Ceftriaxone Decadron injection Albuterol inhaler Lovenox Levemir 15units BID Novolog sliding scale Diabetic diet as tolerated Resume home medications with the exception of Atorvastatin due to elevated AST CHICA COHEN DO 06/07/21 0531: Subjective Review of Systems General: Fatigue, Malaise Objective Exam General Appearance: No Apparent Distress, Chronically ill Respiratory: Lungs Clear, Normal Breath Sounds Neurologic/Psychiatric: Alert, Oriented x3 Supervisory-Addendum Brief Verification & Attestation Participated in pt care: history, MDM, physical Personally performed: exam, history, MDM, supervision of care Care discussed with: Medical Student Procedures: n/a Results interpretation: Verified all documentation Verification and Attestation of Medical Student E/M Service A medical student performed and documented this service in my presence. I reviewed and verified all information documented by the medical student and made modifications to such information, when appropriate. I personally performed the physical exam and medical decision making. Chica Cohen Jun 07, 2021,05:29 DONALD BRUNSON Jun 06, 2021 10:53 CHICA COHEN DO Jun 07, 2021 05:31
--- NOTE | 2021-06-06 11:01 | Physical Therapy Evaluation ---
PT Evaluation-General Medical Diagnosis Admission Date Jun 03, 2021 at 20:19 Medical Diagnosis: Covid pneumonia Onset Date: Jun 03, 2021 Therapy Diagnosis Therapy Diagnosis: debility Height/Weight Height (Feet): 5 Height (Inches): 4.00 Weight (Pounds): 201 Weight (Ounces): 0.0 Precautions Precautions/Isolations: Airborne Isolation, Standard Precautions Referral Physician: Vicki Medical History Pertinent Medical History: DM, Neuropathy, Renal Insufficiency Current History Ambulated to ER secondary to respiratory distress Reviewed History: Yes Social History Home: Single Level Current Living Status: Spouse Prior Prior Level of Function SCALE: Activities may be completed with or without assistive devices. 1-Nkhlekdqlz-pkqrzde completes the activity by him/herself with no assistance from a helper. 5-Set-up or Clean-up Assistance-helper sets up or cleans up; patient completes activity. [place] assists only prior to or following the activity. 4-Supervision or Touching Assistance-helper provides verbal cues and/or touching/steadying and/or contact guard assistance as patient completes activity. Assistance may be provided throughout the activity or intermittently. 3-Partial/Moderate Assistance-helper does LESS THAN HALF the effort. [place] lifts, holds or supports trunk or limbs, but provides less than half the effort. 2-Substantial/Maximal Assistance-helper does MORE THAN HALF the effort. [place] lifts or holds trunk or limbs and provides more than half the effort. 3-Wghuqigyl-acsyoq does ALL the effort. Patient does none of the effort to complete the activity. Or, the assistance of 2 or more helpers is required for the patient to complete the activity. If activity was not attempted, code reason: 7-Patient Refused. 9-Not Applicable-not attempted and the patient did not perform the activity befo re the current illness, exacerbation or injury. 10-Not Attempted due to Environmental Limitations-(lack of equipment, weather re straints, etc.). 88-Not Attempted due to Medical Conditions or Safety Concerns. Bed Mobility: 6 Transfers (B,C,W/C): 6 Gait: 6 Stairs: 6 Indoor Mobility (Ambulation): Independent Stairs: Independent Prior Devices Use: None PT Evaluation-Current Subjective Patient agrees to PT. Patient reports she is up independently in room. Objective Patient Orientation: Normal For Age Attachments: Oxygen (2L) ROM/Strength ROM Lower Extremities bilateral LE WFL Strength Lower Extremities 4/5 grossly bilateral LE Integumentary/Posture Bowel Incontinence: No Bladder Incontinence: No Posture slightly kyphotic Neuromuscular (Tone, Coordination, Reflexes) grossly intact Sensory Vision: Functional Hearing: Functional Transfers Roll Left to Right (QC): 6 Sit to Lying (QC): 6 Lying to Sitting/Side of Bed(Q: 6 Sit to Stand (QC): 6 Chair/Mjq-aq-Adxce Xfer(QC): 6 Gait Does the Patient Walk?: Yes Mode of Locomotion: Walk Anticipated Mode of Locomotion: Walk Walk 10 feet (QC): 6 Walk 50 ft with 2 Turns(QC): 6 Walk 150 ft (QC): 6 Distance: 150' in room Gait Assistive Device: None Comments/Gait Description VC's for patient to be aware of O2 tubing Wheelchair Training Does the Pt Use a Wheelchair?: No Balance Sitting Static: Normal Sitting Dynamic: Normal Standing Static: Good Standing Dynamic: Good Picking up an Object (QC): 6 Assessment/Needs 61 y.o. female, is currently at [facility] with all gross motor skills and does not require skilled therapy intervention. Rehab Potential: Fair PT Plan Treatment/Plan Treatment Plan: Discontinue PT, goals met Treatment Duration: Jun 06, 2021 Frequency: 1 time per week Estimated Hrs Per Day: .25 hour per day Patient and/or Family Agrees t: Yes Discharge Recommendations Therapy Discharge Recommendati: Home & Family Time/GCodes Time In: 1032 Time Out: 1046 Total Billed Treatment Time: 14 [facility] SUKUMAR TERR[facility] Jun 06, 2021 11:01
[2021-06-06 11:22] VITALS: BP 116/70
[2021-06-06] MEDS: ACETAMINOPHEN 325 MG TABLET PO PRN (16:25)
[2021-06-06 16:49] VITALS: BP 116/70
[2021-06-06 17:15] VITALS: BP 116/70
--- NOTE | 2021-06-07 05:36 | Discharge Summary ---
Discharge Summary Hospital Course Was the Problem List Reviewed?: Yes Problems/Dx: (1) Acute respiratory failure due to COVID-19 Status: Acute (2) Pneumonia due to COVID-19 virus Status: Acute (3) History of asthma Status: Acute (4) Obesity Status: Acute (5) IDDM (insulin dependent diabetes mellitus) Status: Acute Hospital Course Date of Admission: Jun 03, 2021 at 20:19 Admission Diagnosis : Family Physician/Provider: Berkley Nagy Patcher [place] Date of Discharge: 06/07/21 Discharge Diagnosis: Acute hypoxic respiratory failure, COVID-19 pneumonia, insulin-dependent diabetes Hospital Course: Pt had an uneventful hospital course for 4 days after she was admitted for acute hypoxic respiratory failure due to Covid-19 pneumonia. She did require IV steroids and IV antibiotics empirically. Those were discontinued after completion. Home medicine was restarted. Overall pt was deep stable for discharge, even though she wanted to stay a few more days. There was no ind ication of requiring more additional hospital days. She was assessed for home oxygen and discharged in improved condition. I did adjust down her insulin since she has been running a lot lower than her usual even in the Decadron maintenance, just for 7 days and she will have close follow-up with her PCP. Brief hospital course: Ginna Toribio is a 61 year old white female who presented to the ED on 06/03/2021 with shortness of breath and abdominal pain. She has a past medical history significant for insulin-dependent diabetes mellitus, asthma, hyperlipidemia, MARIOLA, GERD, CKD, and depression. She had been feeling unwell for several days and had been exposed to COVID-19 two weeks prior. She reported her had also been ill. Her SpO2 was in the 80% range; therapies of supplemental oxygen, Decadron injection, IV antibiotics of Azithromycin and Ceftriaxone, lateral recumbent/prone positioning, and incentive spirometry were initiated. CXR demonstrated: Increased heart size, venous caliber and probable mild interstitial edema, no apparent pleural fluid, there is some likely atelectatic changes in the right infrahilar region. CTA of chest/thorax demonstrated: No PE or acute aortic disease. Multifocal five lobe ground-glass infiltrates raise the question of viral pneumonia. No pleural fluid, pneumothorax or mediastinal gas. Hepatic steatosis. Patient was admitted to the floor. Throughout the patient's stay, insulin therapy and bowel regimen were initiated. Patient's oxygen requirements and status were closely monitored. Home medications with the exception of Atorvastatin were resumed due to elevated AST. EKG demonstrated sinus rhythm. Patient's symptoms continued to improve, and she remained stable throughout the duration of her stay. Home oxygen evaluation was ordered prior to discharge of the patient. This is a brief description of the patient's stay and pertains pertinent aspects of her care. Full description of care can be found in the patient's chart. Date of admission: 06/03/2021 Date of discharge: 06/06/2021 Attending physician: Dr. 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, Depression Consultations: None Procedures: None Labs and Pending Lab Test: Laboratory Tests 06/06/21 10:19: Glucometer 260H Microbiology 06/03/21 Urine Culture - Final, Complete 3 or more isolates 06/03/21 Blood Culture - Preliminary, Resulted No growth Home Meds Active Decadron (Dexamethasone) 6 Mg Tablet 6 Mg PO DAILY Insulin Lispro Kwikpen U-100 (Insulin Lispro) 100 Unit/1 Ml Insuln.pen 50 Units SC AC 7 Days LAST FILLED 08-19-2020 #5PENS/ 10 DAY SUPPLY Tresiba Flextouch U-200 (Insulin Degludec) 200 Unit/1 Ml Insuln.pen 60 Units SC HS 7 Days Reported Neurontin (Gabapentin) 300 Mg Capsule 900 Mg PO TID LAST FILLED 11-10-2020 #270/30 DAY SUPPLY TAKES 3 (300MG) CAPS Atorvastatin Calcium 40 Mg Tablet 40 Mg PO HS LAST FILLED 11-10-2020 #30/30 DAY SUPPLY Aspirin EC (Aspirin) 81 Mg Tablet. 81 Mg PO DAILY Proventil Hfa (Albuterol Sulfate) 6.7 Gm Hfa.aer.ad 2 Puff IH Q4H PRN Assessment/Pt Instructions PCP 1 week Discharge Planning: <30 minutes discharge planning Discharge Instructions Discharge Diet: ADA Diet Activity as Tolerated: Yes Discharge Physical Examination Vital Signs Vital Signs Date Time Temp Pulse Resp B/P (MAP) Pulse Ox O2 Delivery O2 Flow Rate FiO2 06/06/21 17:15 36.2 80 20 116/70 92 Room Air 2.00 06/03/21 23:14 24 General Appearance: No Apparent Distress, WD/WN, Chronically ill, Obese Respiratory: No Accessory Muscle Use, No Respiratory Distress, Decreased Breath Sounds Cardiovascular: Regular Rate, Rhythm Allergies: Coded Allergies: Penicillins (Verified Allergy, Severe, SWELLING IN THROAT, 12/01/17) Discharge Summary Date of Admission Jun 03, 2021 at 20:19 Date of Discharge Jun 06, 2021 at 17:15 Discharge Date: Jun 06, 2021 Admission Diagnosis Assessment: Acute hypoxic respiratory failure COVID-19 pneumonia Insulin-dependent diabetes with insulin resistance Obesity BMI 35 MARIOLA Hypertension Hyperlipidemia Depression Chronic kidney disease Plan: COVID-19 protocol Supportive care High risk for intubation Discharge Diagnosis CHICA COHEN DO Jun 07, 2021 05:36
== END 2021-06-06 17:15 | disposition home or self-care (01) | DRG 177 ==
LOC: EDUNIT# 17:09 → ER 17:10 → 4TH 20:19
PROVIDERS: ADMIT Internal Medicine; ATTEND Internal Medicine
DX: U07.1 COVID-19 (principal); J12.82 Pneumonia due to coronavirus disease 2019; J96.01 Acute respiratory failure with hypoxia; Z79.82 Long term (current) use of aspirin; Z79.4 Long term (current) use of insulin; Z79.899 Other long term (current) drug therapy; E78.00 Pure hypercholesterolemia, unspecified; E11.40 Type 2 diabetes mellitus with diabetic neuropathy, unspecified; G43.909 Migraine, unspecified, not intractable, without status migrainosus; K21.9 Gastro-esophageal reflux disease without esophagitis; M19.90 Unspecified osteoarthritis, unspecified site; J45.909 Unspecified asthma, uncomplicated; E66.9 Obesity, unspecified; Z87.891 Personal history of nicotine dependence; Z68.35 Body mass index [BMI] 35.0-35.9, adult; G47.33 Obstructive sleep apnea (adult) (pediatric); F32.A Depression, unspecified; N18.9 Chronic kidney disease, unspecified; I12.9 Hypertensive chronic kidney disease with stage 1 through stage 4 chronic kidney disease, or unspecified chronic kidney disease; E11.22 Type 2 diabetes mellitus with diabetic chronic kidney disease
CPT/HCPCS: 36415; 71045; 71275; 80053; 81000; 82150; 82805; 82947; 83605; 83690; 83735; 83880; 84145; 84484; 85025; 85379; 85652; 86141; 87040; 87088; 87636; 93005; 93041; 94664; 94760; 94761; 96361; 96374; 96375

== ENCOUNTER 2021-12-11 05:40 | Outpatient (CLI) | payer MEDICAID ==
[~2021-12-11] VITALS: Ht 160 cm; Wt 92.0 kg
[~2021-12-11 05:40] MED LIST changes: +ASPI-1238 PO; +ATOR40TA70 PO; +DEXA6TAB6 PO; +GABA300C PO; +INSU100I48 SC; +INSU200I4 SC
[2021-12-11] MEDS ORDERED: INSU100V39 SQ (15:28)
[2021-12-11] MEDS ORDERED: SEMA1PEN3 SQ (15:28)
[2021-12-11] MEDS ORDERED: INSU200I4 SQ (15:28)
== END 2021-12-11 15:35 | disposition home or self-care (01) ==
LOC: PREOP 05:40
PROVIDERS: ATTEND Specialist
DX: Z01.818 Encounter for other preprocedural examination (principal)

== ENCOUNTER 2021-12-15 09:09 | Day surgery (SDC) | payer MEDICAID ==
[~2021-12-15] VITALS: Ht 160 cm; Wt 92.0 kg
[~2021-12-15 09:09] MED LIST changes: +INSU100V39 SQ; +INSU200I4 SQ; +SEMA1PEN3 SQ
[2021-12-15] MEDS ORDERED: TIMOLOL MALEATE 0.5% 5 ML (TIMOPTIC) BTL OU PRN (09:45)
[2021-12-15] MEDS ORDERED: MOXIFLOXACIN OPHTH SOLN 5 MG/ML 0.3 ML SYRINGE OP ONE (09:45)
[2021-12-15] MEDS ORDERED: POVIDONE (BETADINE) OPHTH SOLN 5% 30 ML OP ONE (09:45)
[2021-12-15 09:58] VITALS: BP 129/62
[2021-12-15] MEDS: TETRACAINE 0.5% OPHTH SOLN 4 ML BTL (SINGLE DOSE ONLY) OU PRN ×4 (09:59→10:16)
[2021-12-15] MEDS: TROPICAMIDE 1% OPH SOLN (MYDRIACYL) 15 ML BTL OP SCH ×3 (10:05→10:16)
[2021-12-15] MEDS: PHENYLEPHRINE 10% OPHTH (NEO-SYN) 5 ML BTL OU SCH ×3 (10:05→10:16)
--- NOTE | 2021-12-15 10:07 | Ophthalmologist Pre-Op Note ---
Pre-Operative Progress Note H&P Reviewed The H&P was reviewed, patient examined and no changes noted. Date H&P Reviewed: Dec 15, 2021 Time H&P Reviewed: 10:07 Pre-Op Dx Cataract, Right Eye JAMES LAWLER MD Dec 15, 2021 10:07
--- NOTE | 2021-12-15 10:59 | Ophthalmology Operative Report ---
Cataract removal/placement IOL PREOPERATIVE DIAGNOSIS: 1. Mature Cataract Right Eye 2. Stain the anterior capsule with Vision Blue. POSTOPERATIVE DIAGNOSIS: 1. Mature Cataract Right Eye 2. Stain the anterior capsule with Vision Blue. PROCEDURE: 1. Cataract removal and placement of posterior chamber implant, right eye. 2. Stain the anterior capsule with Vision Blue. SURGEON: Mike Lawler ANESTHESIA: Topical with sedation COMPLICATIONS: None ESTIMATED BLOOD LOSS: Minimal DESCRIPTION OF PROCEDURE: After proper informed consent was obtained, the patient was taken to the Operating Room and the right eye was anesthetized with tetracaine. The right eye was then prepped and draped in the usual manner. A wire lid speculum was placed. A paracentesis was made at the left hand position. Preservative free lidocaine was injected into anterior chamber followed by viscoelastic. A clear corneal incision was made in the temporal position. A capsulorrhexis was performed and the central nuclear and cortical material were removed. Vision blue was used to visualize capsule. The posterior capsule was polished and Reyes 22.5 AU00T0 IOL was placed into the capsular bag. The residual viscoela stic was aspirated and balanced saline solution was injected into the anterior chamber. Moxifloxacin was injected into the anterior chamber. The wound was checked and found to be water tight. The patient tolerated the procedure well without complications. MIKE LAWLER MD Dec 15, 2021 10:59
[2021-12-15] MEDS ORDERED: acetaZOLAMIDE ER 500 MG CAP (DIAMOX SEQUELS) PO ONE (11:00)
[2021-12-15 11:19] VITALS: BP 137/69
--- NOTE | 2021-12-15 17:32 | Anesthesia-General Post-Op ---
MAC Patient Condition Mental Status/LOC: Same as Preop Cardiovascular: Satisfactory Nausea/Vomiting: Absent Respiratory: Satisfactory Pain: Controlled Complications: Absent Post Op Complications Complications None Follow Up Care/Instructions Patient Instructions None needed. Anesthesiology Discharge Order Discharge Order Patient is doing well, no complaints, stable vital signs, no apparent adverse anesthesia problems. No complications reported per nursing. HERIBERTO BALDERRAMA CRNA Dec 15, 2021 17:32
== END 2021-12-15 11:21 | disposition home or self-care (01) ==
LOC: SDC 09:09
PROVIDERS: ATTEND Specialist
DX: E11.36 Type 2 diabetes mellitus with diabetic cataract (principal); H25.89 Other age-related cataract; Z79.82 Long term (current) use of aspirin; Z79.4 Long term (current) use of insulin; Z79.84 Long term (current) use of oral hypoglycemic drugs
CPT/HCPCS: 66984; V2632

== ENCOUNTER 2021-12-26 05:37 | Outpatient (CLI) | payer MEDICAID | END 2021-12-26 13:03 | LOC: PREOP 05:37 | PROVIDERS: ATTEND Specialist | DX: Z01.818 Encounter for other preprocedural examination (principal); H25.9 Unspecified age-related cataract ==

== ENCOUNTER 2021-12-29 09:30 | Day surgery (SDC) | payer MEDICAID ==
[~2021-12-29] VITALS: Ht 160 cm; Wt 92.0 kg
[2021-12-29 10:00] VITALS: BP 130/62
[2021-12-29] MEDS ORDERED: POVIDONE (BETADINE) OPHTH SOLN 5% 30 ML OP ONE (10:15)
[2021-12-29] MEDS ORDERED: MOXIFLOXACIN OPHTH SOLN 5 MG/ML 0.3 ML SYRINGE OP ONE (10:15)
[2021-12-29] MEDS ORDERED: TIMOLOL MALEATE 0.5% 5 ML (TIMOPTIC) BTL OU PRN (10:15)
--- NOTE | 2021-12-29 10:17 | Ophthalmologist Pre-Op Note ---
Pre-Operative Progress Note H&P Reviewed The H&P was reviewed, patient examined and no changes noted. Date H&P Reviewed: Dec 29, 2021 Time H&P Reviewed: 10:17 Pre-Op Dx Cataract, Left Eye JAMES LAWLER MD Dec 29, 2021 10:17
[2021-12-29] MEDS: TETRACAINE 0.5% OPHTH SOLN 4 ML BTL (SINGLE DOSE ONLY) OU PRN ×4 (10:23→10:41)
[2021-12-29] MEDS: PHENYLEPHRINE 10% OPHTH (NEO-SYN) 5 ML BTL OU SCH ×3 (10:30→10:41)
[2021-12-29] MEDS: TROPICAMIDE 1% OPH SOLN (MYDRIACYL) 15 ML BTL OP SCH ×3 (10:30→10:42)
--- NOTE | 2021-12-29 11:13 | Ophthalmology Operative Report ---
Cataract removal/placement IOL PREOPERATIVE DIAGNOSIS: 1. Mature Cataract Left Eye 2. Stain the anterior capsule with Vision Blue. POSTOPERATIVE DIAGNOSIS: 1. Mature Cataract Left Eye 2. Stain the anterior capsule with Vision Blue. PROCEDURE: 1. Cataract removal and placement of posterior chamber implant, left eye. 2. Stain the anterior capsule with Vision Blue. SURGEON: Mike Lawler ANESTHESIA: Topical with sedation COMPLICATIONS: None ESTIMATED BLOOD LOSS: Minimal DESCRIPTION OF PROCEDURE: After proper informed consent was obtained, the patient, 61 female ,was taken to the Operating Room and the left eye was anesthetized with tetracaine. The left eye was then prepped and draped in the usual manner. A wire lid speculum was placed. A paracentesis was made at the left hand position. Preservative free lidocaine was injected into anterior chamber followed by viscoelastic. A clear corneal incision was made in the temporal position. A capsulorrhexis was performed and the central nuclear and cortical material were removed. Vision blue was used to visualize capsule. The posterior capsule was polished and Reyes 23.5 AU00T0 IOL was placed into the capsular bag. The residual viscoelastic was aspirated and balanced saline solution was injected into the anterior chamber. Moxifloxacin was injected into the anterior chamber. The wound was checked and found to be water tight. The patient tolerated the procedure well without complications. MIKE LAWLER MD Dec 29, 2021 11:13
[2021-12-29 11:17] VITALS: BP 141/69
[2021-12-29] MEDS ORDERED: acetaZOLAMIDE ER 500 MG CAP (DIAMOX SEQUELS) PO ONE (12:15)
--- NOTE | 2021-12-29 14:51 | Anesthesia-General Post-Op ---
MAC Patient Condition Mental Status/LOC: Same as Preop Cardiovascular: Satisfactory Nausea/Vomiting: Absent Respiratory: Satisfactory Pain: Controlled Complications: Absent Post Op Complications Complications None Follow Up Care/Instructions Patient Instructions None needed. Anesthesiology Discharge Order Discharge Order Patient is doing well, no complaints, stable vital signs, no apparent adverse anesthesia problems. No complications reported per nursing. MERLINE AYALA CRNA Dec 29, 2021 14:50
== END 2021-12-29 11:18 ==
LOC: SDC 09:30
PROVIDERS: ATTEND Specialist
DX: E11.36 Type 2 diabetes mellitus with diabetic cataract (principal); H25.12 Age-related nuclear cataract, left eye
CPT/HCPCS: 66982; V2632

== ENCOUNTER → 2022-04-10 | Outpatient (CLI) | payer MEDICAID ==
--- NOTE | 2022-04-10 13:11 | Diagnostic Imaging Report ---
INDICATION: Postmenopausal state. COMPARISON: None available. FINDINGS: AP Spine L1-L4: [BMD (g/cm2): 0.947] [T-Score: -2.1] [Z-Score: -1.6] [BMD Previous: NA] [BMD % Change: NA] LT Hip Neck: [BMD (g/cm2): 0.766] [T-Score: -2.0] [Z-Score: -1.2] LT Hip Total: [BMD (g/cm2):0.911] [T-Score:-0.8] [Z-Score: -0.4] [BMD Previous: NA] [BMD % Change: NA] RT Hip Neck: [BMD (g/cm2):0.848] [T-Score:-1.4] [Z-Score:-0.6] RT Hip Total: [BMD (g/cm2):0.956] [T-score:-0.4] [Z-Score:0.0] [BMD Previous:NA] [BMD % Change:NA] *Indicates significant change from prior examination based on 95% confidence level. World Health Organization criteria for BMD interpretation classify patients as Normal (T-score at or above -1.0), Osteopenic (T-score between -1.0 and -2.5) or Osteoporotic (T-score at or below -2.5). LIMITATIONS AND MODIFICATION: None. FRACTURE RISK (FRAX SCORE): The ten year probability of (%): Major Osteoporotic Fracture: [12.3] Hip Fracture: [1.8] IMPRESSION: 1. Osteopenia (Low bone mass). 2. Baseline examination. 3. See below National Osteoporosis Foundation guidelines on when to potentially initiate pharmacologic therapy. Based on the National Osteoporosis Foundation Guidelines, pharmacologic treatment should be initiated in any of the following, unless clinical conditions suggest otherwise: * Any patient with prior fragility fracture of the hip or vertebrae. A spine fracture indicates 5X risk for subsequent spine fracture and 2X risk for subsequent hip fracture. * Osteoporosis (T-score <-2.5). * Postmenopausal women and men age 50 and older with low bone mass/osteopenia (T-score between -1.0 and -2.5) by DXA and 10-year major osteoporotic fracture greater than 20% or a 10-year probability of hip fracture greater than 3%. These fracture risks are supplied above in the FRAX score, if applicable. * Clinician judgement and/or patient preferences may indicate treatment for people with 10-year fracture probabilities above or below these levels. Dictated by: Dictated on workstation # [id number]
== END ==
LOC: RAD 11:00
PROVIDERS: ATTEND Pediatrics
DX: Z13.820 Encounter for screening for osteoporosis (principal); M85.80 Other specified disorders of bone density and structure, unspecified site; Z78.0 Asymptomatic menopausal state
CPT/HCPCS: 77080

== ENCOUNTER 2022-12-19 05:39 | Outpatient (CLI) | payer MEDICAID ==
[~2022-12-19] VITALS: Ht 162.6 cm; Wt 93.8 kg
[~2022-12-19 05:39] MED LIST changes: -INSU100I29 PO; +INSU100I30 PO
[2022-12-27] MEDS ORDERED: ATOR80TA76 PO (14:06)
[2022-12-27] MEDS ORDERED: FAMO20TA5 PO (14:06)
== END 2022-12-27 14:09 | disposition home or self-care (01) ==
LOC: PREOP 05:39
PROVIDERS: ATTEND Surgery
DX: Z01.818 Encounter for other preprocedural examination (principal)